=== PATIENT | male | born 1955 | race Caucasian/White ===

== ENCOUNTER 2022-05-23 12:32 | Observation (INO) | payer OTHER ==
--- NOTE | 2022-05-23 13:14 | RAD REPORT ---
EXAM DESCRIPTION: Jef Single View05/23/2022 1:06 pm CLINICAL HISTORY: Numbness COMPARISON: January 2022 FINDINGS: The lungs appear clear of acute infiltrate. The heart is normal size IMPRESSION: No acute abnormalities displayed
--- NOTE | 2022-05-23 13:21 | RAD REPORT ---
EXAM DESCRIPTION: CT - Ct Stroke Brain Wo Cont - 05/23/2022 1:12 pm CLINICAL HISTORY: Left sided weakness COMPARISON: No comparisons TECHNIQUE: Axial 5 millimeter thick images of the head were obtained without IV contrast. All CT scans are performed using dose optimization technique as appropriate and may include automated exposure control or mA/KV adjustment according to patient size. FINDINGS: No intracranial hemorrhage, mass, or cerebral edema. No acute cortical based infarction. N o cortical edema or sulcal effacement. Atrophy changes are mild. Scattered chronic ischemic changes a re present. Ventricles are normal size. No extra-axial fluid collections. Ryan matter-white matter d ifferentiation is preserved. No globe or orbital content abnormality. Visualized portions of the mastoid air cells, paranasal sinuses, and orbits are unremarkable. Findings telephoned to Dr. Gallo 1320 hrs. IMPRESSION: No CT evidence of acute intracranial process. Scattered mild chronic ischemic change in the cerebral white matter.
--- OUTSIDE RECORDS SUMMARY | 2022-05-23 13:21 | XMS REPORT | Continuity of Care Document ---
:1955 Author Organization [facility] t Address [address] [place] [address] Care Team Providers Name Role Phone GUERITA WELLINGTON Primary Care Physician Unavailable Hyacinth Gamez Attending Clinician Unavailable Kaye Baez MD Attending Clinician SCOOTER BELL Attending Clinician Unavailable Tian Coulter MD Attending Clinician Unavailable CHON ROLON Attending Clinician Unavailable Scooter Bell PA-C Attending Clinician [phone] Scarlet Fritz MD Attending Clinician Mary Poon NP Attending Clinician SCARLET FRITZ Attending Clinician Unavailable Sulma Martinez RN Attending Clinician Unavailable Cristela Villalobos Attending Clinician Jacinta Becerra RN Attending Clinician Unavailable Araceli Amato MD Attending Clinician ARACELI AMATO Attending Clinician Unavailable 3, [facility] Terrence Mr Attending Clinician Unavailable Justin Macias NP Attending Clinician Scooter Bell PA-C Attending Clinician Natacha Ross Santiago Attending Clinician Unavailable Dk Grijalva RD Attending Clinician Unavailable Franco MCKENZIE, Luis Ceballos Attending Clinician Rios Arndt LCSW Attending Clinician Unavailable Yady Caldwell Attending Clinician Unavailable Kamala Lobo RN Attending Clinician Unavailable Zulma MCKENZIE, Manuel Lakhani Attending Clinician [phone] KEYANA HERRERA Attending Clinician Unavailable SUYAPA WEBB Attending Clinician Unavailable Aida MCKENZIE, Keyana Resendiz Attending Clinician [phone] Tk Raabgo MD Attending Clinician [phone] Suyapa Webb MD Attending Clinician Milena Swartz MD Attending Clinician Renetta Burnette CRNA Attending Clinician [phone] KIRT JIANG Attending Clinician Unavailable Gwendolyn Zhu Attending Clinician Unavailable Jaison Giraldo Attending Clinician Unavailable MADDIE MIDDLETON Attending Clinician Unavailable Mary Kidd Attending Clinician Unavailable Sadie Molina RN Attending Clinician Unavailable Babatunde Aragon DO Attending Clinician Fredo Berrios DO Attending Clinician Jakub Malone MD Attending Clinician JAKUB MALONE Attending Clinician Unavailable Provider, Express Temp Attending Clinician Unavailable Fredo Chahal Attending Clinician Unavailable Sherrell Coronado Admitting Clinician Unavailable TK RABAGO Admitting Clinician Unavailable Mary Kidd Admitting Clinician Unavailable Physician, No Primary or Family Admitting Clinician UnavailJakub Loja MD Admitting Clinician JAKUB MALONE Admitting Clinician Unavailable Fredo Chahal Admitting Clinician Unavailable Payers Payer Name Policy Type Policy Number Effective Date Expiration Date S alejandra MEDICARE PART A [id number] 2021 \\T\\ B - MEDICARE 00:00:00 [facility] [id number] 2021 [facility] SUPP 00:00:00 Problems Condition Condition Condition Status Onset Resolution Last Treating Co mments Source Name Details Category Date Date Treatment Clinician Date Frailty Frailty Disease [facility] 00 [place] Tobacco Tobacco Disease Active [facility] 00 [place] Sarcopenia Sarcopenia Disease Active [facility] 00 [place] Pre-transp Pre-transp Disease Active Last [facility] lant lant 03-08 Assessfrancisco j Boykinyessy evaluation evaluation 00:00: t & Plan: Medical for liver for liver [address] [place] [address] enter transplant transplant g of this note might be different from the original. He is an acceptabl e candidate for liver transplan t pending further testing and formal review at [facility]. COPD COPD Disease Active Last [facility] (chronic (chronic 03-08 Assessmen Ruth es obstructiv obstructiv 00:00: t & Plan: Medical e e [address] [place] [address] pulmonary pulmonary g of this disease) disease) note might be different from the original. He has a history of lung surgery (s/p thoracoto my in September 2021 at [facility]), asthma, and COPD. He will require Pulmonolo gy clearance prior to listing for liver transplan t. Screening Screening Disease Active St for for 03-08 [facility] varices varices 00:00: Medical 00 [place] History of History of Disease Active [facility] hepatitis hepatitis 03-08 [facility] C C 00:00: Medical 00 [place] History of History of Disease Active [facility] thoracotom thoracotom 03-08 [facility] kes y y 00:00: Medical 00 [place] Insomnia Insomnia Disease Active [facility] 00:[facility]: Medical 00 [place] Incarcerat Incarcerat Disease Active Last [facility] ed ed 02-10 Assessfrancisco j Aranda umbilical umbilical 00:00: t & Plan: M edical hernia hernia 00 [facility] g of this note might be different from the original. He is s/p umbilical hernia repair with ACS on 02/13/22. Remains with bella in place. Continue to follow up as scheduled . Other Other Disease Active Last [facility] cirrhosis cirrhosis 02-09 Assessmen Mikaela jones of liver of liver 00:00: t & Plan: Med ical 00 [facility] g of this note might be different from the original. 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 MELD is 10. Continue with evaluatio n for liver transplan t. Other Other Disease Active Last [facility] ascites ascites 02-09 [facility] 00:00: t & Plan: Medical [address] [place] [address] g of this note might be different from the original. He has a history of ascites requiring large volume paracente sis. He appears mildly distended in clinic today. Continue to follow up with hepatolog y for managemen t and treatment . Portal Portal Disease Active [facility] hypertensi hypertensi - [facility]ia kes on on 00:00: [facility] [place] Hepatic Hepatic Disease Active [facility] encephalop encephalop 02-09 [facility] kes athy athy 00:00: Medical [address] [place] [address] Alcohol Alcohol Disease Active Last [facility] use use 02-09 [facility] 00:00: t & Plan: Medical [address] [place] [address] g of this note might be different from the original. Denies recent alcohol use. PETH negative on 02/16/22. Generalize Generalize Disease Active [facility] d d 02-09 [facility] abdominal abdominal 00:00: [facility] lino pain pain 00 [place] Acute Acute Disease Active [facility] abdominal abdominal - Luke s pain pain 00:00: Medical [address] [place] [address] Nonrheumat Nonrheumat Disease Active U richie ic aortic ic aortic 3-18 ity of valve valve 00:00: [place] stenosis stenosis 00 Medica l Branch NSVT NSVT Disease Active Univers (nonsustai (nonsustai 3-17 it y of barb barb 00:00: [place] ventricula ventricula 00 Me dical r r Branch tachycardi tachycardi a) a) PAC PAC Disease Active Univers (premature (premature 3-17 it y of atrial atrial 00:00: [place] contractio contractio 00 Me dical n) n) Branch SUKHDEEP (acute SUKHDEEP (acute Disease Active U nivers kidney kidney 3-17 ity of injury) injury) 00:00: [place] 00 Medical Branch Chronic Chronic Disease Active Univers diastolic diastolic 3-17 ity of congestive congestive 00:00: [place] heart heart 00 Medical failure failure Branch Other Other Disease Active Univers cirrhosis cirrhosis 3-17 ity of of liver of liver 00:00: [address] Branch Pleural Pleural Disease Active Univers effusion effusion 3-17 ity of 00:00: [place] [address] Medical Branch Elevated Elevated Disease Active Unive rs brain brain 3-17 ity of natriureti natriureti 00:00[place] c peptide c peptide 00 Medi lino (BNP) (BNP) Branch level level Pneumonia Pneumonia Disease Active Uni vers 3-16 ity of 00:00: [address] Allergies, Adverse Reactions, Alerts Allergy Allergy Status Severity Reaction(s) Onset Inactive Treating Comm ents Source Name Type Date Date Clinician No Known DA Active U [facility] Allergie 3-22 Clear s 00:00: Se[place] 00 [facility] No Known DA Active U [facility] Allergie 3-16 [facility] s 00:00: 00 Reid Hendrickson No Known DA Active U 2019-[address] [facility] Allergie 1-20 [facility] s 00:00: 00 Reid Hendrickson NO KNOWN Allergy Active [facility] NO KNOWN Drug Active Univers ALLERGIE Class ity of S [facility] Social History Social Habit Start Date Stop Date Quantity Comments Source History of tobacco Cigarette Smoker [facility] use [facility] Center History SDOH [facility] Alcohol Std Drinks Medica Center History SDOH [facility] Alcohol Binge Medical [facility] History SDOH [facility] Alcohol Comment Medical C enter Exposure to Not sure University of SARS-CoV-2 (event) [facility] Alcohol intake 2022-04-12 2022-04-[address] Ruth es 00:00:00 00:00:00 non-drinker Medical Cente r (finding) Tobacco use and 2022-02-09 2022-02-[address] Lucretia kes exposure 00:00:00 00:00:00 Medical Center History SDOH 2022-02-09 2022-02-[address] [facility] Alcohol Frequency 00:00:00 00:00:00 Medical Center Tobacco Comment 2022-02-09 2022-02-[address] [facility] 00:[facility]00 [facility] Cigarettes smoked 2021-10-05 2021-10-05 Univers ity of current (pack per 00:00:00 00:00:00 ) - Reported Branch Sex [birth year] [facility] llege of 00:00:00 00:00:00 Medicine Smoking Status Start Date Stop Date Source Tobacco smoking consumption [facility] or [facility] unknown Current every day smoker 2022-02-09 00:00:[address] [facility] Medications Ordered Filled Start Stop Current Ordering Indication Dosage Frequency Signature Comments Components Source Medication Medication Date Date Medication? Clinician (SIG) Name Name rifAXIMin 2021- No hepatic 550mg Q.5D Take [address] 550 mg Tab 04-12 encephalopa mg by Lukes 10:34: 00:00 thy mouth 2 Medical 11 :00 (two) Center times daily . spironolact Yes 100mg QD Take [address] one 9-19 mg by Lukes (ALDACTONE) 09:50: mouth Medic al 100 MG 48 daily. Center tablet rifAXIMin Yes 550mg Q.5D Take [address] (Xifaxan) 9-19 mg by [facility] 550 mg Tab 09:50: mouth 2 Medi lino 48 (two) Center times daily. ergocalcife 2021- Yes 16241H Q7D Take [address] rol 04-06 capsule [facility]ukes (Vitamin 00:00: 23:59 (50,000 Medic al D2) 1,250 00 :00 Units Center mcg (50,000 total) by unit) mouth once capsule a week for 12 doses. furosemide 2021- No 40mg Q.5D Take [address] (LASIX) 40 03-29 by mouth 2 Lucretia kes MG tablet 16:13: 00:00 (two) Medica l 05 :00 times Center daily. furosemide Yes 40mg Q.5D Take 1 [facility]I [facility] t (LASIX) 40 03-29 tablet (40 Ruth es MG tablet 00:00: mg total) Med ical 00 by mouth 2 Center (two) times daily. spironolact Yes [facility] 03-26 [place] (ALDACTONE) 00:00: of 100 MG 00 Medicin tablet e Lactulose Yes [facility] 20 GM/30ML 8-25 [place] SOL 00:00: of 00 Medicin e albuterol Yes 1{puff} Inhale [address] HFA 8-17 puff by Lukes (VENTOLIN 17:15: mouth via Med ical HFA) 90 12 inhaler Center mcg/actuati every 6 on inhaler (six) hours as needed for Wheezing. lactulose 2021- No 10g Q.[id number] Take [address] (CEPHULAC) 8-17 08-17 [id number] by mouth 3 [facility] 10 gram 16:54: 00:00 3D (three) Medica l packet 31 :00 times Center daily. eszopiclone Yes TAKE 1 [facility] (LUNESTA) 1 8-17 TABLET BY Col lege MG TABS 00:00: MOUTH of 00 DAILY Medicin IMMEDIATEL e Y BEFORE BEDTIME tramadol Yes 50mg Take 50 mg [place] giovany (ULTRAM) 50 8-17 by mouth. Col lege MG tablet 00:00: of 00 Medicin e traMADoL 2021- No 50mg Take [address] (ULTRAM) 50 8-17 09-21 tablet (50 L ukes mg tablet 00:00: 00:00 mg total) Me dical 00 :00 by mouth Center every 12 (twelve) hours as needed for Pain. Max Daily Amount: 100 mg traMADoL 2021- No 50mg Take [address] (ULTRAM) 50 8- 08-11 tablet (50 L ukes mg tablet 00:00: 23:59 mg total) Me dical 00 :00 by mouth Center every 6 (six) hours as needed for Pain for up to 10 days. Max Daily Amount: 200 mg gabapentin Yes TAKE 1 [facility] (NEURONTIN) 7-29 CAPSULE BY Co llege 100 MG 00:00: MOUTH of capsule 00 THREE Medicin TIMES A e DAY FOR 90 DAYS valacyclovi Yes TAKE 1 [facility] (VALTREX) 7-29 TABLET BY Col lege 1 g tablet 00:00: MOUTH of 00 THREE Medicin TIMES A e DAY FOR 30 DAYS gabapentin 2021- No 100mg [id number] Take [address] (NEURONTIN) 02-17 [id number] capsule [facility]ukes 100 MG 00:00: 23:59 3D (100 mg Medical capsule 00 :00 total) by Center mouth 3 (three) times daily for 90 days. tamsulosin 2021- No .4mg QD Take [address] (FLOMAX) 02-17 capsule [facility] 0.4 mg Cap 00:00: 23:59 (0.4 mg Med ical 24 hr 00 :00 total) by Center capsule mouth daily for 30 days. valACYclovi 2021- No 1000mg Q.[id number] Take [address] r (VALTREX) 02-17 [id number] tablet [facility] 1000 MG 00:00: 23:59 3D (1,000 mg Medi lino tablet 00 :00 total) by Center mouth 3 (three) times daily for 30 days. ipratropium Yes INHALE 1 [facility] (ATROVENT) 7-13 VIAL BY Colleg e 0.02 % 00:00: MOUTH VIA of nebulizer 00 NEBULIZER Medic in solution EVERY 8 e HOURS NEEDED Albuterol Yes [facility] (VENTOLIN 7-04 [place] IN) 00:00: of 00 Medicin e furosemide Yes TAKE 1 [facility] (LASIX) 40 6-21 TABLET BY [place] ege MG tablet 00:00: MOUTH of 00 EVERY DAY Medicin e furosemide 2021- No [id number] 20mg Take 1 Univers 20 mg 3-20 04-20 tablet by ity of tablet 00:00: 04:59 mouth [place] 00 :00 daily for Medical 30 days. Branch furosemide 2021- No [id number] 20mg Take 1 Univers 20 mg 3-20 04-20 tablet by ity of tablet 00:00: 04:59 mouth [place] 00 :00 daily for Medical 30 days. Branch furosemide 2021- No [id number] 20mg Take 1 Univers 20 mg 3-20 04-20 tablet by ity of tablet 00:00: 04:59 mouth [place] 00 :00 daily for Medical 30 days. Branch levoFLOXaci 2021- No [id number] 750mg Take 1 Univers n 750 mg 3-20 03-24 tablet by ity o f tablet 00:00: 04:59 mouth [place] 00 :00 daily for Medical 3 days. Branch predniSONE 2021- No [id number] 40mg Take 2 Univers 20 mg 3-20 03-24 tablets by ity of tablet 00:00: 04:59 mouth [place] 00 :00 daily for Medical 3 days. Branch levoFLOXaci 2021- No [id number] 750mg Take 1 Univers n 750 mg 3-20 03-24 tablet by ity o f tablet 00:00: 04:59 mouth [place] 00 :00 daily for Medical 3 days. Branch predniSONE 2021- No [id number] 40mg Take 2 Univers 20 mg 3-20 03-24 tablets by ity of tablet 00:00: 04:59 mouth [place] 00 :00 daily for Medical 3 days. Branch levoFLOXaci 2021- No [id number] 750mg Take 1 Univers n 750 mg 3-20 03-24 tablet by ity o f tablet 00:00: 04:59 mouth [place] 00 :00 daily for Medical 3 days. Branch predniSONE 2021- No [id number] 40mg Take 2 Univers 20 mg 3-20 03-24 tablets by ity of tablet 00:00: 04:59 mouth [place] 00 :00 daily for Medical 3 days. Branch finasteride Yes 5mg Take 5 mg U nivers 5 mg tablet 3-19 by mouth ity of 11:37: daily. [address] albuterol Yes 1{ampul Use 1 Univ ers 2.5 mg/0.5 3-19 e} Ampule as ity of mL 11:37: directed 3 [place] nebulizer 16 (three) Medical solution times Branch daily as needed for Wheezing. finasteride Yes 5mg Take 5 mg U nivers 5 mg tablet 3-19 by mouth ity of 11:37: daily. [address] albuterol Yes 1{ampul Use 1 Univ ers 2.5 mg/0.5 3-19 e} Ampule as ity of mL 11:37: directed 3 [place] nebulizer 16 (three) Medical solution times Branch daily as needed for Wheezing. finasteride Yes 5mg Take 5 mg U nivers 5 mg tablet 10-08 by mouth ity of 11:37: daily. [place] 16 Medical Branch albuterol Yes 1{ampul Use 1 Univ ers 2.5 mg/0.5 10-08 e} Ampule as ity of mL 11:37: directed 3 [place] nebulizer 16 (three) Medical solution times Branch daily as needed for Wheezing. spironolact 2021- No 50mg Take 50 mg Univers one 50 mg 10-08 by mouth 2 ity of tablet 10:02: 00:00 (two) [place] 59 :00 times Medical daily. Branch furosemide No 40mg Take 40 mg Univers 40 mg 10-08 by mouth 2 ity of tablet 10:02: 00:00 (two) [place] 59 :00 times Medical daily. Branch lactulose 2021- No 45mL Take 45 mL U nivers 10 gram/15 10-08 by mouth. ity of mL (15 mL) 10:02: 00:00 [place] Sol 59 :00 Medical Branch Ipratropium Yes 1{puff} 1 Puff by [facility] -Albuterol 3-19 Inhalation Col lege 20-100 00:00: route. of MCG/ACT 00 Medicin AERS e albuterol-i Yes [id number] 1{puff} Inhale 1 Univers pratropium 3-19 Puff every ity of 20-100 00:00: 6 (six) [place] mcg/actuati 00 hours as Medi lino on inhaler needed for Bra nch Wheezing or Shortness of Breath. albuterol-i Yes [id number] 1{puff} Inhale 1 Univers pratropium 3-19 Puff every ity of 20-100 00:00: 6 (six) [place] mcg/actuati 00 hours as Medi lino on inhaler needed for Bra nch Wheezing or Shortness of Breath. albuterol-i Yes [id number] 1{puff} Inhale 1 Univers pratropium 3-19 Puff every ity of 20-100 00:00: 6 (six) [place] mcg/actuati 00 hours as Medi lino on inhaler needed for Bra nch Wheezing or Shortness of Breath. spironolact 2021- No [id number] 25mg Take 1 Univers one 25 mg 3-19 -19 tablet by ity of tablet 00:00: 04:59 mouth 2 [place] 00 :00 (two) Medical times [place] daily for 30 days. lactulose 2021- No [id number] 30mL Take 30 mL Univers 10 gram/15 -08 11-19 by mouth 2 it y of mL solution 00:00: 04:59 (two) [place] 00 :00 times Medical daily for Branch 30 days. spironolact 2021- No [id number] 25mg Take 1 Univers one 25 mg 3-19 -19 tablet by ity of tablet 00:00: 04:59 mouth 2 [place] 00 :00 (two) Medical times [place] daily for 30 days. lactulose 2021- No [id number] 30mL Take 30 mL Univers 10 gram/15 -08 11-19 by mouth 2 it y of mL solution 00:00: 04:59 (two) [place] 00 :00 times Medical daily for Branch 30 days. spironolact 2021- No [id number] 25mg Take 1 Univers one 25 mg 3-08 11- tablet by ity of tablet 00:00: 04:59 mouth 2 [place] 00 :00 (two) Medical times [place] daily for 30 days. lactulose 2021- No [id number] 30mL Take 30 mL Univers 10 gram/15 -08 11-19 by mouth 2 it y of mL solution 00:00: 04:59 (two) [place] 00 :00 times Medical daily for Branch 30 days. morpHINE Yes 2mg 2 mg, Slow Uni vers injection 2 3-18 IV Push, ity of mg 21:52: Q4HPRN, [place] 48 Starting Medical on Sun Branch 10/07/21 at 1652, Until Discontinu ed, Routine, Pain (scale 7-10) HYDROcodone Yes 1{tbl} 1 tablet, Univers -acetaminop 3-18 Oral, ity of hen (NORCO 21:52: Q6HPRN, [place] 5) 5-325 mg 32 Starting Medi lino tablet 1 on Sun tablet 3/18/22 at 1652, Until Discontinu ed, Routine, Pain (scale 4-6) acetaminoph Yes 650mg 650 mg, Un jerardo en 10-07 Oral, ity of (TYLENOL) 21:52: Q8HPRN, [place] tablet 650 21 Starting Medic al mg on Fri Branch 10/07/21 at 1652, Until Discontinu ed, Routine, Pain (scale 1-3) KCL 2021- No 40meq 40 mEq, Univers (KLOR-CON 10-07 Oral, ity of M20) tablet 15:00: 15:05 ONCE, 1 [place] 40 mEq 00 :00 dose, On Medical Fri Branch 10/07/21 at 1000, Routine levoFLOXaci No 750mg 750 mg, U nivers n 10-07 Oral, ity of (LEVAQUIN) 14:00: 13:59 DAILY, 5 [place] tablet 750 00 :00 doses, Medical mg First dose Branch (after last modificati on) on Sun10/07/21 at 0900, Last dose on Sun10/11/21 at 0900, ENRIQUE
Re ason for Anti-Infec tive: Documented Infection< br>Documen britta Infection Site: Respirator y
Durat ion of Therapy: 7 days predniSONE No 40mg 40 mg, Univ ers (DELTASONE) 10-07 Oral, ity of tablet 40 14:00: 13:59 DAILY, 4 [place] as mg 00 :00 doses, Medical First dose Branch on Sun10/07/21 at 0900, Last dose on Sun10/10/21 at 0900, Routine methylPREDN No 40mg 40 mg, Uni vers ISolone sod 10-06 Intravenou i ty of succ 23:00: 13:55 s, Q24H, [place] (SOLU-MEDRO 00 :45 First dose Me dical L (PF)) on [place] Branch injection 10/06/21 at 40 mg 1800, Until Discontinu ed, 1 mL KCL No 40meq 40 mEq, Univers (KLOR-CON 10-06 Oral, ity of M20) tablet 20:00: 20:27 ONCE, 1 [place] 40 mEq 00 :00 dose, On Medical [place] Branch 10/06/21 at 1500, Routine vancomycin 2021- No 1250mg 1,250 mg, Univers 1250 mg in 10-06 IV ity of NS 250 mL 15:30: 13:52 Infusion, [place] RTU IV 00 :05 Q24H ABX, Medical Piggyback First dose Bran ch 1,250 mg on [place] 10/06/21 at 1030, Until Discontinu ed, Administer over 90 Minutes
Reason for Anti-Infec tive: Documented Infection< br>Documen britta Infection Site: Blood
D uration of Therapy: 7 days furosemide Yes 20mg 20 mg, Unive rs (LASIX) 17 Oral, ity of tablet 20 14:00: DAILY, [place] mg 00 First dose Medical on [place] Branch 10/06/21 at 0900, Until Discontinu ed, Routine finasteride Yes 5mg 5 mg, Unive rs (PROSCAR) 10-06 Oral, ity of tablet 5 mg 14:00: DAILY, [place] 00 First dose Medical on [place] Branch 10/06/21 at 0900, Until Discontinu ed, Routine spironolact Yes 25mg 25 mg, Univ ers one 17 Oral, BID, ity of (ALDACTONE) 13:00: First dose [place] tablet 25 00 on [facility] Medical mg 10/06/21 at Branch 0800, Until Discontinu ed, Routine NORepinephr 2021- No .05ug/k 0.05-0.5 Univers ine 4 mg in 10-06 g/min mcg/kg/min ity of 0.9% NaCl 11:23: 11:22 ?64 kg [place] 250 mL 29 :29 (12-120 Medical infusion mL/hr), IV Branc h RTU Infusion, TITRATE, MAP Goal > or = 65 mmHg, Starting on [place] 10/06/21 at 0623, For 24 hours
I nitiate titration at 0.05 mcg/kg/min . &am p;nbsp;Inc rease by 0.01 mcg/kg/min every 30 seconds to 5 minutes as needed to reach and maintain goal blood pressure.& nbsp;&nbsp ;Maximum dose = 0.5 mcg/kg/min . &nb sp;If goal not maintained at maximum allowed dose, contact prescriber . &nb sp;Adminis ter only one peripheral intravenou s vasopresso r at a time.
hydrocortis No 60mg 60 mg, Uni vers one sod 10-06 Intravenou ity o f succ 11:00: 18:35 s, Q6H, [place] (CORTEF) 00 :41 First dose Medic al injection on [place] Branch 60 mg 10/06/21 at 0600, Until Discontinu ed, 2 mL albumin 2021- No 25g 25 g, IV Unive rs (ALBUMINAR 10-06 Infusion, ity of 25%) 25 % 07:45: 07:10 ONCE, 1 [place] injection 00 :00 dose, On Medica l 25 g [place] Branch 10/06/21 at 0245, 100 mL
Jeanette cation: NON-APPROV ED INDICATION - PHARMACY WILL CALL ORDERING PROVIDER<b r>Specific Indication : hepatorena l syndrome<b r>Faculty Requesting Approval: RHYS BERRY NaCl 0.9% 2021- No 500mL at 999 Univ ers (NS) bolus 10-06 mL/hr, 500 it y of infusion 07:30: 06:50 mL, IV [place] 500 mL 00 :00 Piggyback, Medical ONCE, 1 Branch dose, On [place] 10/06/21 at 0230, STAT NaCl 0.9% 2021- No 250mL at 999 Univ ers (NS) bolus 10-06 mL/hr, 250 it y of infusion 06:15: 05:20 mL, IV [place] 250 mL 00 :00 Piggyback, Medical ONCE, 1 Branch dose, On [place] 10/06/21 at 0115, STAT ipratropium Yes 3mL 3 mL, Unive rs -albuteroL 10-06 Inhalation ity of (DUONEB) 01:00: , QID, [place] 0.5 mg-3 00 First dose Medic al mg(2.5 mg on Sun)/3 mL 10/05/21 at nebulizer 1999, solution 3 Until mL Discontinu ed, Routine lactulose Yes 30mL 30 mL, Univer s (CEPHULAC) 10-06 Oral, BID, ity of solution 30 01:00: First dose [place] mL 00 on Sun Medical 10/05/21 at [place] 1999, Until Discontinu ed metoprolol 2021- No 12.5mg 12.5 mg, Univers tartrate 10-06 Oral, BID, ity of (LOPRESSOR) 01:00: 06:33 First dose [place] tablet 12.5 00 :56 on Sun Medica l mg 10/05/21 at [place] 1999, Until Discontinu ed, Routine azithromyci No 500mg 500 mg, IV Univers n 10-06 Piggyback, ity of (ZITHROMAX) 00:15: 13:55 Q24H ABX, [place] 500 mg in 00 :45 3 doses, Medica l NaCl 0.9% First dose Bran ch (NS) 250 mL on Sun VIAL-MATE 10/05/21 at IV 1914, Last piggyback dose on Sun10/07/21 at 1914, Administer over 60 Minutes, 250 mL
Reas on for Anti-Infec tive: Empiric Therapy for Suspected Infection< br>Empiric Therapy Site: Respirator y
Durat ion of therapy: 72 hours cefTRIAXone No 1000mg 1,000 mg, Univers (ROCEPHIN) 10-06 IV ity of 1,000 mg in 00:15: 13:55 Piggyback, [place] NaCl 0.9% 00 :45 Q24H ABX, Medic al (NS) 50 mL First dose Bra nch MINI-BAG on Sun10/05/21 at 191, Until Discontinu ed, Administer over 30 Minutes, 50 mL
Reas on for Anti-Infec tive: Empiric Therapy for Suspected Infection< br>Empiric Therapy Site: Respirator y
Durat ion of therapy: 7 days ipratropium Yes 3mL 3 mL, Unive rs -albuteroL 10-05 Inhalation ity of (DUONEB) 23:28: , Q6HPRN, [place] 0.5 mg-3 11 Starting Medical mg(2.5 mg on Sun base)/3 mL 10/05/21 at nebulizer 1828, solution 3 Until mL Discontinu ed, Routine, Wheezing, Shortness of Breath NaCl 0.9% 2021- No 1000mL at 999 Uni vers (NS) bolus 10-05 mL/hr, ity of infusion 20:27: 20:30 1,000 mL, [place] as 1,000 mL 00 :00 IV Medical Infusion, Branch ONCE, 1 dose, On Sun10/05/21 at 1530, STAT magnesium 2021- No 2g 2 g, IV Univ ers sulfate in 10-05 Piggyback, it y of water 2 19:16: 20:08 Administer [place] as gram/50 mL 00 :00 over 60 Medica l (4 %) Minutes, Branch infusion 2 ONCE, 1 g dose, On Sun10/05/21 at 1430, Routine NaCl 0.9% 2021- No 1000mL at 999 Uni vers (NS) bolus 10-05 mL/hr, ity of infusion 18:45: 21:30 1,000 mL, Darrick as 1,000 mL 00 :00 IV Medical Infusion, Branch ONCE, 1 dose, On Sun10/05/21 at 1345, STAT piperacilli 2021- No 3.375g 3.375 g, Univers n-tazobacta 10-05 IV ity of m (ZOSYN) 16:15: 15:52 Piggyback, [place] 3.375 g in 00 :00 ONCE, 1 Medica l NaCl 0.9% dose, On Branch (NS) 50 mL Wed MINI-BAG 10/05/21 at 1115, Administer over 30 Minutes, 50 mL
R natalio for Anti-Infec tive: Empiric Therapy for Suspected Infection< br>Empiric Therapy Site: Abdominal< br>Duratio n of therapy: 72 hours iopamidol 2021- No [id number] 100mL 100 mL, Univers (ISOVUE 10-05 Intravenou ity o f 370-500 mL) 16:00: 15:59 s, ONCE, 1 [place] injection 00 :00 dose, On Medica l 100 mL Wed Branch 10/05/21 at 1115, Routine doxycycline 0 Yes Twice [facility] sherin (MONODOX) 3-18 Daily College 100 MG 00:00: of capsule 00 Medicin e folic acid 0 Yes Daily [facility] (FOLVITE) 1 3-18 College MG tablet 00:00: of 00 Medicin e finasteride Yes 5mg Take 5 mg B aylor (PROSCAR) 5 3-17 by mouth. Col lege MG tablet 00:00: of 00 Medicin e albuterol Yes 1{puff} 1 Puff by [facility] 108 (90 3-17 Inhalation Colleg e base) 00:00: route. of mcg/act 00 Medicin inhaler e lactulose Yes 20g [id number] Take [address] [facility] (CHRONULAC) 9-09 [id number] by mouth 3 [facility] 10 gram/15 00:00: 3D (three) Medi lino mL solution 00 times Center daily. Vital Signs Vital Name Observation Time Observation Value Comments Source WEIGHT 2020-10-05 18:15:00 77.174518 kg HEIGHT 2020-10-05 18:15:00 167.64 cm Systolic blood 2022-03-29 19:43:00 111 mm[Hg] [facility] pressure Medicine Diastolic blood 2022-03-29 19:43:00 73 mm[Hg] [facility] pressure Medicine Heart rate 2022-03-29 19:43:00 80 /min [facility] Body height 2022-03-29 19:43:00 170.2 cm [facility] Body weight 2022-03-29 19:43:00 71.215 kg [facility] BMI 2022-03-29 19:43:00 24.59 kg/m2 [facility] HEIGHT 2022-02-09 15:09:00 167.6 cm WEIGHT 2022-02-09 15:09:00 58.968 kg HEIGHT 2022-02-09 15:09:00 167.6 cm WEIGHT 2022-02-09 15:09:00 58.968 kg HEIGHT 2022-02-09 15:09:00 167.6 cm WEIGHT 2022-02-09 15:09:00 58.968 kg Systolic blood 2021-10-08 15:00:00 107 mm[Hg] Univer sity of pressure [facility] Diastolic blood 2021-10-08 15:00:00 67 mm[Hg] Unive rsity of [facility] Heart rate 2021-10-08 15:00:00 89 /min Universi ty [facility] Respiratory rate 2021-10-08 15:00:00 24 /min [facility] saturation in 2021-10-08 15:00:00 96 /min [facility] blood by [facility] Pulse oximetry [place] Body temperature 2021-10-08 13:56:00 36.56 Maral [facility] Body weight 2021-10-07 09:39:00 65.998 [facility] BMI 2021-10-07 09:39:00 23.48 kg/m2 [facility] Body height 2021-10-06 17:32:00 167.6 cm [facility] WEIGHT 2020-10-05 18:15:00 77.823908 kg HEIGHT 2020-10-05 18:15:00 167.64 cm WEIGHT 2020-06-11 22:20:00 68.153740 kg HEIGHT 2020-06-11 22:20:00 167.64 cm Systolic blood 2022-04-10 09:43:00 127 mm[Hg] [facility] Diastolic blood 2022-04-10 09:43:00 74 mm[Hg] [facility] Heart rate 2022-04-10 09:43:00 84 /min [facility] Body temperature 2022-04-10 09:43:00 36.33 Maral [facility] Body weight 2022-04-10 09:43:00 64.275 kg [facility] BMI 2022-04-10 09:43:00 22.40 kg/m2 [facility] Oxygen saturation in 2022-04-10 09:43:00 96 /min [facility] Arterial blood by Medical Ce nter Pulse oximetry Body height 2022-03-09 07:21:00 169.4 cm [facility] Respiratory rate 2022-03-08 13:00:00 18 /min [facility] Procedures Procedure Date / Time Performing Clinician Source Performed AMB REF TO GEN INT 2022-04-13 10:44:26 [facility] Medicine BASIC METABOLIC PANEL 2022-04-10 13:35:00 Mary Poon [facility] HEPATIC FUNCTION PANEL 2022-04-10 13:35:00 Mary Poon [facility] CBC W/PLT COUNT & AUTO 2022-04-10 13:35:00 Mary Poon [facility] PROTHROMBIN TIME/INR 2022-04-10 13:35:00 Mary Poon [facility] CBC W/PLT COUNT & AUTO 2022-04-10 13:35:00 Mary Poon [facility] CT ABDOMEN/PELVIS WITH IV 2022-04-10 13:08:00 Scooter Bell [facility] CONTRAST [facility] ECHO W CONTRAST & DOPPLER 2022-03-30 12:44:32 Araceli Amato [facility] HC CAROTID DOPPLER ZULMA 2022-03-30 12:19:00 Araceli Amato [facility] ECG 12-LEAD 2022-03-30 12:06:19 Araceli Amato [facility] BLOOD GAS, ARTERIAL 2022-03-30 11:43:00 Araceli Amato [facility] XR MANDIBLE 4 VIEWS MIN 2022-03-30 10:38:00 Araceli Amato [facility] XR CHEST 2 VIEWS 2022-03-30 10:30:00 Araceli Amato [facility] XR DXA BONE DENSITY STUDY 2022-03-30 10:25:00 Araceli Amato [facility] MR ABDOMEN WITH & WITHOUT 2022-03-30 07:47:00 Araceli Amato [facility] IV CONTRAST Center DRUG SCREEN, URINE, 2022-03-08 12:43:00 Everette, Araceli Alexis [facility] TRANSPLANT Center URINALYSIS W/ MICROSCOPIC 2022-03-08 12:43:00 Everette, Araceli Alexis [facility] CALCIUM, IONIZED 2022-03-08 08:58:00 Everette, Araceli Alexis [facility] HEPATITIS C PCR, 2022-03-08 08:58:00 Everette, Araceli Alexis [facility] QUANTITATIVE [place] MISCELLANEOUS LAB ORDER 2022-03-08 08:57:00 Everette, Araceli Alexis [facility] COMPREHENSIVE METABOLIC 2022-03-08 08:57:00 Everette, Araceli Alexis [facility] BILIRUBIN, DIRECT 2022-03-08 08:57:00 Everette, Araceli Alexis [facility] GAMMA GLUTAMYL TRANSFERASE 2022-03-08 08:57:00 Everette, Araceli Castillo [facility] (GGT) Center MAGNESIUM 2022-03-08 08:57:00 Everette, Araceli Alexis [facility] PHOSPHORUS 2022-03-08 08:57:00 EveretteAraceli nieves [facility] CBC W/PLT COUNT & AUTO 2022-03-08 08:57:00 Everette, Araceli Alexis [facility] DIFFERENTIAL Center ACTIN (SMOOTH MUSCLE) 2022-03-08 08:57:00 Everette, Araceli Alexis [facility] ANTIBODY, IGG Center TRANSFERRIN 2022-03-08 08:57:00 EveretteAraceli [facility] IRON, TIBC, % SAT. 2022-03-08 08:57:00 EveretteAraceli nieves [facility] (WITHOUT FERRITIN) Center FERRITIN 2022-03-08 08:57:00 EveretteAraceli [facility] CERULOPLASMIN 2022-03-08 08:57:00 EveretteAraceli [facility] VITAMIN D, 25-HYDROXY 2022-03-08 08:57:00 EveretteAraceli nieves [facility] LIPID PANEL 2022-03-08 08:57:00 EveretteAraceli nieves [facility] HEMOGLOBIN A1C 2022-03-08 08:57:00 EveretteAraceli nieves [facility] ETHANOL 2022-03-08 08:57:00 EveretteAraceli nieves [facility] ALPHA FETOPROTEIN (AFP), 2022-03-08 08:57:00 EveretteAraceli nieves [facility] TUMOR MARKER Center CARBOHYDRATE ANTIGEN 19-9 2022-03-08 08:57:00 EveretteAraceli nieves [facility] (CA 19-9) [place] CARCINOEMBRYONIC ANTIGEN 2022-03-08 08:57:00 EveretteAraceli nieves [facility] (CEA) Center ZINC 2022-03-08 08:57:00 EveretteAraceli nieves [facility] URIC ACID 2022-03-08 08:57:00 EveretteAraceli nieves [facility] TSH 2022-03-08 08:57:00 EveretteAraceli nieves [facility] T3 2022-03-08 08:57:00 EveretteAraceli nieves [facility] T4 2022-03-08 08:57:00 Araceli Amato [facility] HEPATITIS B CORE ANTIBODY, 2022-03-08 08:57:00 EveretteAraceli nieves [facility] TOTAL Center HEPATITIS B CORE ANTIBODY, 2022-03-08 08:57:00 Araceli Amato [facility] IGM Center HC LAB HIV-1 AG W/HIV-1&2 2022-03-08 08:57:00 EveretteAraceli nieves [facility] AB [place] CYTOMEGALOVIRUS ANTIBODY, 2022-03-08 08:57:00 EveretteAraceli nieves [facility] IGG Center EBV ANTIBODY, IGG 2022-03-08 08:57:00 EveretteAraceli nieves [facility] RUBEOLA ANTIBODY IGG 2022-03-08 08:57:00 EveretteAraceli nieves [facility] MUMPS ANTIBODY, IGG 2022-03-08 08:57:00 EveretteAraceli nieves [facility] RUBELLA ANTIBODY, IGG 2022-03-08 08:57:00 EveretteAraceli nieves [facility] VARICELLA ZOSTER ANTIBODY, 2022-03-08 08:57:00 EveretteAraceli nieves [facility] IGG Center CRYPTOCOCCAL ANTIGEN 2022-03-08 08:57:00 EveretteAraceli nieves [facility] RPR 2022-03-08 08:57:00 EveretteAraceli nievse [facility] T SPOT TB 2022-03-08 08:57:00 EveretteAraceli nieves [facility] ALPHA-1 ANTITRYPSIN 2022-03-08 08:57:00 EveretteAraceli nieves [facility] MUTATION ANALYSIS Center HEPATITIS C GENOTYPE 2022-03-08 08:57:00 EveretteAraceli [facility] PSA 2022-03-08 08:57:00 EveretteAraceli nieves [facility] CBC W/PLT COUNT & AUTO 2022-03-08 08:57:[address] [facility] DIFFERENTIAL Center FIBRINOGEN 2022-03-08 08:56:00 EveretteAraceli nieves [facility] PROTHROMBIN TIME/INR 2022-03-08 08:56:00 EveretteAraceli nieves [facility] APTT 2022-03-08 08:56:00 EveretteAraceli neives [facility] MITOCHONDRIA M2 ANTIBODY 2022-03-08 08:56:00 EveretteAraceli nieves [facility] (IGG) [place] TESTOSTERONE, FREE + TOTAL 2022-03-08 08:56:[address] [facility] SARS-COV2/RT-PCR ([facility] & 2022-02-17 07:47:00 Suyapa Webb [facility] REF LABS) Center VARICELLA ZOSTER PCR, 2022-02-15 20:01:00 Nida Subramanian [facility] QUALITATIVE Center PROTHROMBIN TIME/INR 2022-02-14 11:57:00 JefDwaynen Roy [facility] CBC W/PLT COUNT & AUTO 2022-02-14 05:02:00 AdalidRogelio fishman [facility] BASIC METABOLIC PANEL 2022-02-14 05:02:00 Adalidsravanthi Rogelio [facility] HEPATIC FUNCTION PANEL 2022-02-14 05:02:00 Adalidsravanthi [facility] CBC W/PLT COUNT & AUTO 2022-02-14 05:02:00 Jeffery [facility] TISSUE EXAM 2022-02-13 08:26:00 Milena Swartz [facility] CYTOLOGY 2022-02-13 08:24:00 Milena Swartz [facility] CYTOLOGY REQUEST 2022-02-13 08:24:00 Milena Swartz [facility] BODY FLUID CULTURE + GRAM 2022-02-13 08:21:00 Milena Swartz [facility] HERNIORRHAPHY, UMBILICAL 2022-02-13 07:13:00 Milena Swartz [facility] PROTHROMBIN TIME/INR 2022-02-13 04:46:00 Kamala Guzman [facility] ABORH, MANUAL 2022-02-13 04:46:00 Layne Cole [facility] CBC W/PLT COUNT & AUTO 2022-02-13 03:38:00 Suyapa Webb CH [facility] BASIC METABOLIC PANEL 2022-02-13 03:38:00 Suyapa Webb [facility] MAGNESIUM 2022-02-13 03:38:00 Suyapa Webb [facility] HEPATIC FUNCTION PANEL 2022-02-13 03:38:00 Suyapa Webb CH [facility] PROTHROMBIN TIME/INR 2022-02-13 03:38:00 Suyapa Webb [facility] APTT 2022-02-13 03:38:00 aKmala Gzuman [facility] PHOSPHATIDYLETHANOL, BLOOD 2022-02-13 03:38:00 Nely Fuchs [facility] HEPATITIS B SURFACE 2022-02-13 03:38:[address] [facility] TYPE AND SCREEN, AUTOMATED 2022-02-13 03:38:00 Kt Garrett [facility] CBC W/PLT COUNT & AUTO 2022-02-13 03:38:00 Tracey Suyapa P. [facility] CBC W/PLT COUNT & AUTO 2022-02-12 03:29:00 Tracey Suyapa P. CH [facility] BASIC METABOLIC PANEL 2022-02-12 03:29:00 Tracey Suyapa P. [facility] MAGNESIUM 2022-02-12 03:29:00 Eduardo Webbison P. [facility] HEPATIC FUNCTION PANEL 2022-02-12 03:29:00 Tracey Suyapa P. [facility] PROTHROMBIN TIME/INR 2022-02-12 03:29:00 Tracey Suyapa P. [facility] CBC W/PLT COUNT & AUTO 2022-02-12 03:29:00 Tracey Suyapa P. CH [facility] CBC W/PLT COUNT & AUTO 2022-02-11 04:35:00 Tracey Suyapa P. CH [facility] BASIC METABOLIC PANEL 2022-02-11 04:35:00 Tracey Suyapa P. [facility] MAGNESIUM 2022-02-11 04:35:00 Tracey Suyapa P. [facility] HEPATIC FUNCTION PANEL 2022-02-11 04:35:00 Tracey Suyapa P. [facility] PROTHROMBIN TIME/INR 2022-02-11 04:35:00 Tracey Suyapa P. [facility] CBC W/PLT COUNT & AUTO 2022-02-11 04:35:00 Tracey Suyapa P. CH I [facility] US PARACENTESIS 2022-02-10 12:58:00 Keyana Herrera [facility] BODY FLUID CELL COUNT WITH 2022-02-10 12:32:00 Keyana Herrera [facility] DIFFERENTIAL [facility] BODY FLUID CULTURE + GRAM 2022-02-10 12:32:00 Keyana Herrera [facility] STAIN [facility] LACTATE DEHYDROGENASE 2022-02-10 12:32:00 Keyana Herrera [facility] (LDH), BODY FLUID [facility] PROTEIN, BODY FLUID 2022-02-10 12:32:00 [facility] GLUCOSE, BODY FLUID 2022-02-10 12:32:00 Suyapa Webb [facility] XR ABDOMEN/KUB 1 VIEW 2022-02-10 04:18:00 Douglas Angela [facility] URINALYSIS W/ REFLEX URINE 2022-02-09 23:33:00 Keyana Herrera [facility] CULTURE [facility] CT ABDOMEN/PELVIS WITH IV 2022-02-09 20:53:00 Keyana Herrera [facility] CONTRAST [facility] ECG 12-LEAD 2022-02-09 19:28:35 Aida [facility] ECG 12-LEAD 2022-02-09 19:28:35 Unknown, Hl7 Doctor [facility] BLOOD CULTURE 2022-02-09 19:11:00 Keyana Herrera [facility] AMMONIA 2022-02-09 19:09:00 Aida [facility] SARS-COV2/RT-PCR ([facility] & 2022-02-09 19:08:00 Suyapa Webb [facility] REF LABS) Center LACTIC ACID, VENOUS 2022-02-09 18:49:00 [facility] BLOOD [facility] 2022-02-09 18:48:00 [facility] & AUTO 2022-02-09 18:48:[address] [facility] DIFFERENTIAL [facility] COMPREHENSIVE METABOLIC 2022-02-09 18:48:00 Aida [facility] LIP[facility] 2022-02-09 18:48:00 Aida [facility] PT/APTT 2022-02-09 18:48:00 Aida [facility] CBC W/PLT COUNT & AUTO 2022-02-09 18:48:00 Aida [facility] DIFFERENTIAL [facility] PROTHROMBIN TIME/INR 2022-02-09 13:40:00 Eros [facility] BLOOD CULTURE 2022-02-09 13:37:00 Eros [facility] MISCELLANEOUS LAB ORDER 2022-02-09 13:37:[address] [facility] METABOLIC 2022-02-09 13:37:00 Eros [facility] BILIRUBIN, DIRECT 2022-02-09 13:37:00 Eros [facility] CBC W/PLT COUNT & AUTO 2022-02-09 13:37:00 Eros [facility] HEPATITIS A ANTIBODY, IGG 2022-02-09 13:37:00 [facility] HEPATITIS C ANTIBODY 2022-02-09 13:37:00 Eros [facility] [id number]\\, 2022-02-09 13:37:00 Eros [facility] ANTI-NUCLEAR ANTIBODY 2022-02-09 13:37:00 Eros [facility] (OSKAR) [place] LACTIC ACID, VENOUS 2022-02-09 13:37:00 Eros [facility] PROCALCITONIN 2022-02-09 13:37:00 Rosalva Cooney [facility] OSKAR TITER AND PATTERN 2022-02-09 13:37:00 Rosalva Cooney [facility] CBC W/PLT COUNT & AUTO 2022-02-09 13:37:00 Rosalva Cooney [facility] EKG-SCANNED 2022-02-09 00:00:00 ProviderSay [facility] [id number] 2021-10-24 00:00:00 CANJO.01 [facility] [id number] 2021-10-24 00:00:00 CANJO.01 [facility] [id number] 2021-10-19 00:00:00 CANJO.01 [facility] [id number] 2021-10-19 00:00:[address] [place] [address] [id number] 2021-10-17 00:00:00 [facility] [id number] 2021-10-17 00:00:00 [facility] [id number] 2021-10-17 00:00:00 [facility] [id number] 2021-10-17 00:00:00 [facility] [id number] 2021-10-17 00:00:00 [facility] [id number] 2021-10-17 00:00:00 [facility] [id number] 2021-10-17 00:00:00 [facility] [id number] 2021-10-17 00:00:00 [facility] [id number] 2021-10-17 00:00:00 [facility] [id number] 2021-10-17 00:00:00 [facility] [id number] 2021-10-14 00:00:00 [facility] [id number] 2021-10-14 00:00:00 [facility] [id number] 2021-10-14 00:00:00 [facility] [id number] 2021-10-14 00:00:00 MOIKH [facility] [id number] 2021-10-11 00:00:00 CANJO.01 [facility] [id number] 2021-10-11 00:00:00 CANJO.01 [facility] MAGNESIUM 2021-10-08 10:00:00 Kira [facility] COMP. METABOLIC PANEL 2021-10-08 10:00:00 Kira [facility] ([id number]) [facility] CBC WITHOUT DIFF 2021-10-08 10:00:00 Kira [facility] N-TERMINAL PRO-BNP 2021-10-08 10:00:00 Kira [facility] MAGNESIUM 2021-10-07 09:44:00 Kira [facility] COMP. METABOLIC PANEL 2021-10-07 09:44:00 Kira [facility] ([id number]) [facility] CBC WITH DIFF 2021-10-07 09:44:[address] [facility] CT HEAD WO CONTRAST 2021-10-06 23:27:16 Kira [facility] XR ELBOW <3 VW LEFT 2021-10-06 23:19:00 Kira [facility] TRANSTHORACIC ECHO (TTE) 2021-10-06 17:32:04 Fredo Berrios [facility] PNEUMOCOCCAL ANTIGEN 2021-10-06 12:20:00 Fredo Berrios [facility] CORTISOL AM 2021-10-06 11:45:00 Justen [facility] LACTIC ACID WHOLE BLOOD 2021-10-06 09:24:00 Justen [facility] AMMONIA, PLASMA 2021-10-06 08:28:00 Fredo Berrios [facility] MAGNESIUM 2021-10-06 08:21:00 Fredo Berrios [facility] THYROID STIMULATING 2021-10-06 08:21:00 Sandra Dorsey [facility] HORMONE [facility] COMP. METABOLIC PANEL 2021-10-06 08:21:00 Fredo Berrios [facility] ([id number]) Medical Branch US ABDOMEN LIMITED 2021-10-06 02:00:00 Fredo Berrios [facility] TROPONIN I 2021-10-06 01:12:00 Fredo Berrios [facility] HEPATITIS C VIRUS (HCV) BY 2021-10-06 01:09:00 Fredo Berrios [facility] QUANTITATIVE NAAT [facility] LACTIC ACID WHOLE BLOOD 2021-10-06 00:02:00 Fredo Berrios [facility] MYCOPLASMA PNEUMONIAE 2021-10-06 00:01:00 Fredo Berrios [facility] ANTIBODY, IGM [facility] HEPATITIS B SURFACE 2021-10-06 00:01:00 Fredo Berrios [facility] ANTIBODY [facility] HCV ANTIBODY 2021-10-06 00:01:00 Fredo Berrios [facility] HBC ANTIBODY (IGM & IGG) 2021-10-06 00:01:00 Fredo Berrios [facility] PROCALCITONIN 2021-10-06 00:01:00 Fredo Berrios [facility] MRSA / MSSA SCREEN BY PCR, 2021-10-05 23:52:00 Fredo Berrios [facility] NARES [facility] RESPIRATORY PANEL BY PCR 2021-10-05 23:52:00 Fredo Berrios [facility] LACTIC ACID WHOLE BLOOD 2021-10-05 20:29:00 Babatunde Aragon [facility] BLOOD CULTURE SCREEN 2021-10-05 17:35:00 Babatunde Aragon [facility] URINE CULTURE 2021-10-05 17:35:00 Babatunde Aragon [facility] BLOOD CULTURE WORKUP 2021-10-05 17:35:00 Babatunde Aragon [facility] GRAM POSITIVE BLOOD 2021-10-05 17:35:00 Babatunde Aragon [facility] PATHOGENS DNA [facility] PROBE-ANAEROBIC CT ABDOMEN PELVIS W 2021-10-05 16:10:00 Babatunde Aragon [facility] CONTRAST [facility] CT CHEST PULMONARY 2021-10-05 16:10:00 Babatunde Aragon [facility] ANGIOGRAM Medical Branch [facility] PATIENT FINANCIAL 2021-10-05 14:58:02 Doctor Unassigned, [facility] POLICY [facility] NO SHOW OR MISSED 2021-10-05 14:57:08 Doctor Almasscesar, [facility] APPOINTMENT POLICY [facility] ACKNOWLEDGEMENT NOTICE OF PRIVACY 2021-10-05 14:55:14 Doctor Unassigned, [facility] PRACTICES [facility] CONSENT/REFUSAL FOR 2021-10-05 14:54:54 Doctor Aida, [facility] DIAGNOSIS AND TREATMENT [facility] ASSIGNMENT OF BENEFITS 2021-10-05 14:54:42 Doctor Unasscesar, [facility] [place] AC PANEL 20 + LACTIC ACID 2021-10-05 14:48:00 Babatunde Aragon [facility] COVID-19 (ID NOW RAPID 2021-10-05 14:48:00 Babatunde Aragon [facility] TESTING) Medical Branch LAB ONLY COVID 2021-10-05 14:48:[address] [facility] INTERPRETATION [facility] AMMONIA, PLASMA 2021-10-05 14:47:00 Singer [facility] TROPONIN I 2021-10-05 14:47:00 Singer [facility] COMP. METABOLIC PANEL 2021-10-05 14:47:00 [facility] ([id number]) Medical Branch CBC WITH DIFF 2021-10-05 14:47:00 Singer [facility] PROTHROMBIN TIME / INR 2021-10-05 14:47:00 [facility] D-DIMER 2021-10-05 14:47:00 Singer Babatunde [facility] URINALYSIS 2021-10-05 14:47:00 Singer [facility] N-TERMINAL PRO-BNP 2021-10-05 14:47:00 Babatunde Aragon [facility] EKG-12 LEAD 2021-10-05 14:44:49 Yash [facility] CONSENT/REFUSAL FOR 2021-10-05 14:31:59 Doctor Aida [facility] DIAGNOSIS AND TREATMENT [facility] NOTICE OF PRIVACY 2021-10-05 14:31:43 Doctor Unassigned, [facility] PRACTICES [facility] Plan of Care Planned Activity Planned Date Details Comments Source Future Scheduled Test 2022-03-29 Screening for [facility] 14:45:09 malignant neoplasm of Medici ne colon (procedure) [code = [id number]] Future Scheduled Test 2022-03-29 COVID-19 Vaccine (#1) [facility] 14:45:09 [code = COVID-19 Medicine Vaccine (#1)] Future Scheduled Test 2022-03-29 Pneumococcal 65+ (1 - [facility] 14:45:09 PCV) [code = Medicine Pneumococcal 65+ (1 - PCV)] Future Scheduled Test 2022-03-29 TETANUS SHOT (ADULT) [facility] 14:45:09 [code = TETANUS SHOT Medicin e (ADULT)] Future Scheduled Test 2022-03-29 ZOSTER VACCINE (1 of [facility] of 14:45:09 2) [code = ZOSTER Medicine VACCINE (1 of 2)] Future Scheduled Test 2022-03-29 MEDICARE AWV (Initial) [facility] 14:45:09 [code = MEDICARE AWV Medicin e (Initial)] Future Scheduled Test 2022-03-29 FALL SCREEN [code = [facility] 14:45:09 FALL SCREEN] Medicine Future Scheduled Test 2022-03-29 FLU VACCINE > 6 MONTHS [facility] 14:45:09 [code = FLU VACCINE > Medici ne 6 MONTHS] Future Scheduled Test 2022-03-[address] [facility] 00:00:00 WELLNESS (YEAR 2 or Medical Center FIRST YEAR if no IPPE) [code = MEDICARE ANNUAL WELLNESS (YEAR 2 or FIRST YEAR if no IPPE)] Future Scheduled Test 2022-03-23 INFLUENZA VACCINE (#1) [facility] 00:00:00 [code = INFLUENZA Medical Ce nter VACCINE (#1)] Future Scheduled Test 2021-07-[address] [facility] 00:00:00 (12+) [code = Medical Center DEPRESSION SCREENING (12+)] Future Scheduled Test 2021-07-23 FALLS RISK SCREENING [facility] 00:00:00 [code = FALLS RISK Medical C enter SCREENING] Future Scheduled Test 2006 SHINGLES VACCINES ([address] [facility] 00:00:00 of 2) [code = SHINGLES Medic al Center VACCINES (1 of 2)] Future Scheduled Test 1975 DTAP/TDAP/TD VACCINES [facility] 00:00:00 (1 - Tdap) [code = Medical C enter DTAP/TDAP/TD VACCINES (1 - Tdap)] Future Scheduled Test 1962 PNEUMOCOCCAL 65+ YRS [facility] 00:00:00 (1 - PCV) [code = Medical Ce nter PNEUMOCOCCAL 65+ YRS (1 - PCV)] Future Scheduled Test 1955 COVID-19 VACCINE (#1) [facility] 00:00:00 [code = COVID-[address] VACCINE (#1)] Future Scheduled Test [address] [facility] 00:00:00 (combo) [code = CT Medical C enter Colonography (combo)] Future Scheduled Test 1955 [facility] malignant neoplasm of Medica l Center colon (procedure) [code = 039170099] Future Scheduled Test 1955 [facility] for [facility]:00 malignant neoplasm of Medica [facility] Center colon (procedure) [code = 039337207] Future Scheduled Test 1955 [facility]:00 malignant neoplasm of Medica l Center colon (procedure) [code = 994331399] Future Scheduled Test 1955 [facility]:00 malignant neoplasm of Medica l Center colon (procedure) [code = 401596725] Future Scheduled Test 1955 Sigmoidoscopy [code = [facility] 00:00:00 Sigmoidoscopy] Medical Ashley duff Future Appointment 2022-05-26 Araceli Amato MD, [address] [facility] [address] [facility] 09:30:[address]; [address], [place] [address] Encounters Start End Encounter Admission Attending Care Care Encounter Source Date/Time Date/Time Type Type Clinicians Facility Department ID 2020-10-06 Inpatient ER Vera, Hyacinth [facility] [id number] 13:30[facility]00 [id number] 2022-05-18 2022-05-18 Telephone Nestor [facility] [id number] 00:00:00 00:00:00 [facility] 2022-04-27 2022-04-27 Outpatient DEVON BELL [facility] [id number] [facility] 13:27:18 13:55:18 SCOOTER purdy of Medicin e 2022-04-18 2022-04-18 Telephone Marylin [facility] [id number] 00:00:00 00:00:00 [facility] 2022-04-13 2022-04-13 Outpatient GONZALES [facility] [id number] [facility] 09:39:29 10:43:42 CHON chowdhury of Medicin e 2022-04-12 2022-04-12 Documentat Nestor [facility] [id number] 00:00:00 00:00:00 ion [facility] 2022-04-10 2022-04-10 [facility] [id number] 11:02:13 23:59:00 Encounter [facility] 2022-04-10 2022-04-10 Office Scarlet Fritz [facility] [id number] 09:30:00 10:00:00 Visit Mary Poon [facility] 2022-04-06 2022-04-06 Orders Juan [facility] [id number] 00:00:00 00:00:00 Only Sulma Hong [facility] 2022-04-04 2022-04-04 Documentat Sheridan [facility] [id number] 00:00:00 00:00:00 ion Cristela [facility] 2022-03-31 2022-03-31 Telephone Mariam [facility] [id number] 00:00:00 00:00:[address] [facility] 2022-03-30 2022-03-30 [facility] [id number] 11:50:30 23:59:00 Encounter [facility] 2022-03-30 2022-03-30 [facility] [id number] 11:42:06 11:49:00 Encounter [facility] 2022-03-30 2022-03-30 [facility] [id number] [id number] 11:00:00 11:41:00 Encounter [facility] 2022-03-30 2022-03-30 [facility] [id number] [id number] 09:25:37 10:59:00 Encounter [facility] 2022-03-30 2022-03-30 [facility] [id number] 09:25:15 10:59:00 Encounter [facility] 2022-03-30 2022-03-30 [facility] [id number] 09:25:01 10:59:00 Encounter [facility] 2022-03-30 2022-03-30 [facility] [id number] [facility] 06:00:00 09:24:00 Encounter 3, [facility] 2022-03-30 2022-03-30 Telephone Gilberto [facility] [id number] 00:00:00 00:00:00 Justin [facility] 2022-03-29 2022-03-29 Office DEVON Bell [id number] [facility] 14:00:00 15:02:44 Visit Scooter AMBULATOR 350.1.13.21 College Y 0.2.7.2.686 of [id number] [facility] 815 e 2022-03-29 2022-03-29 Refill Mariam [facility] [id number] 00:00:00 00:00:[address] [facility] 2022-03-23 2022-03-23 Telephone Nestor [facility] [id number] 00:00:00 00:00:00 [facility] 2022-03-22 2022-03-22 Documentleonid Manzano [facility] [id number] 00:00:00 00:00:00 [facility] 2022-03-10 2022-03-10 Documentleonid Baez [facility] [id number] 00:00:00 00:00:00 ion [facility] 2022-03-10 2022-03-10 Paresh Baez [facility] [id number] 00:00:00 00:00:00 ion [facility] 2022-03-10 2022-03-10 Documentleonid Baez [facility] [id number] 00:00:00 00:00:00 ion [facility] 2022-03-10 2022-03-10 Paresh Martinez [facility] [id number] 00:00:00 00:00:00 [facility] 2022-03-08 2022-03-08 Office Araceli Amato [facility] [id number] [facility] 11:30:00 12:00:00 Visit Justin Macias [facility] 2022-03-08 2022-03-08 Evaluation Araceli Amato [facility] [id number] 10:30:00 11:30:00 Dk Grijalva [facility] 2022-03-08 2022-03-08 Evaluation Araceli Amato [facility] [id number] 09:00:00 09:30:00 Luis Gamez [facility] 2022-03-08 2022-03-08 Social Araceli Amato [facility] [id number] [facility] 08:30:00 09:00:00 Work Rios Arndt [facility] 2022-03-08 2022-03-08 Orders Araceli Amato [facility] [id number] 08:20:00 08:30:00 Only [facility] 2022-03-08 2022-03-08 [facility] [id number] 00:00:00 00:00:00 [facility] 2022-03-08 2022-03-08 Telephone Nestor, [facility] [id number] 00:00:00 00:00:00 [facility] 2022-03-08 2022-03-08 Documentat Javi [facility] [id number] 00:00:00 00:00:00 ion [facility] 2022-03-06 2022-03-06 Telephone Yamil [facility] [id number] 00:00:00 00:00:00 [facility] 2022-03-06 2022-03-06 Telephone Nestor [facility] [id number] 00:00:00 00:00:00 [facility] 2022-02-28 2022-02-28 Telephone Nestor [facility] [id number] 00:00:00 00:00:00 [facility] 2022-02-22 2022-02-22 Telephone Nestor [facility] [id number] 00:00:00 00:00:00 [facility] 2022-02-20 2022-02-20 Telephone Juan [facility] [id number] 00:00:00 00:00:00 Sulma Hal [facility] 2022-02-20 2022-02-20 Orders Zulma [facility] [id number] 00:00:00 00:00:[address] [facility] 2022-02-18 2022-02-18 Orders Juan [facility] [id number] 00:00:00 00:00:00 Only Sulma Hong [facility] 2022-02-09 2022-02-17 Inpatient ER TRACEY, [facility] Surgery [id number] [facility] 19:40:00 11:24:00 SUYAPA 2022-02-09 2022-02-17 [facility] Keyana Herrera [facility] [id number] [facility] 19:40:00 11:24:00 [facility] 2022-02-15 2022-02-15 Documentat Nestor [facility] [id number] 00:00:00 00:00:00 ion Kaye [facility] 2022-02-14 2022-02-14 Outpatient EL [facility] [id number] [facility] 00:00:00 00:00:00 2022-02-13 2022-02-13 Surgery Sheridan [facility] [id number] 07:30:00 09:37:00 [facility] 2022-02-13 2022-02-13 Anesthesia Olga-Te [facility] [id number] [facility] 07:26:00 09:06:00 Event Manoj wallace [facility] 2022-02-09 2022-02-09 Outpatient [facility] [id number] [facility] 19:40:00 23:59:00 [facility] 2022-02-09 2022-02-09 Outpatient [facility] [id number] [facility] 00:00:00 19:39:00 [facility] 2022-02-09 2022-02-09 Office Lam [facility] [id number] 11:00:00 12:00:00 Visit [facility] 2022-02-09 2022-02-09 Outpatient ZHOU FRITZ [facility] [id number] [facility] 11:42:22 11:42:22 RISE 2022-02-09 2022-02-09 Outpatient CONCHITA OWENS [facility] [id number] [facility] 00:00:00 00:00:00 PRASUN 2022-02-09 2022-02-09 Orders [facility] [id number] 00:00:00 00:00:00 [facility] 2022-02-09 2022-02-09 Documentat Marko, [facility] [id number] 00:00:00 00:00:00 ion [facility] 2022-02-09 2022-02-09 Telephone Poon, [facility] [id number] 00:00:00 00:00:00 [facility] 2022-02-09 2022-02-09 Travel [facility] [id number] [facility] 00:00:00 00:00:00 [facility] 2022-02-09 2022-02-09 Telephone Giraldo, [facility] [id number] 00:00:00 00:00:00 [facility] 2022-02-09 2022-02-09 Abstract Luis Gamez [facility] [id number] 00:00:00 00:00:00 [facility] 2022-02-08 2022-02-08 Outpatient CONCHITA SANCHEZ [facility] [id number] [facility] 00:00:00 00:00:00 MADDIE 2022-02-08 2022-02-08 Outpatient CONCHITA OWENS [facility] [id number] [facility] 00:00:00 00:00:00 PRASUN 2021-10-11 2021-10-26 Inpatient EM DAFNE Kidd INTE [id number] [facility] 14:19:00 16:56:[address] [facility] 2021-10-12 2021-10-12 Outpatient REYES Kidd LABO [id number] [facility] 01:15:00 01:15:00 Mary 08 [facility] 2021-10-10 2021-10-10 Transition CARLOS Molina [id number] [id number] [facility] 00:00:00 00:00:00 of Anmol SHI 350.1.13.10 it y of ZENAIDA 4[facility]2.7.2.686 [id number] [facility] [address] 2021-10-05 2021-10-08 Hospital Babatunde Aragon [facility] 1.2.840.1 [id number] Univers 09:32:00 11:36:00 Encounter Fredo Berrios SHYANN 350.1.13.10 ity of Jakub MaloneMACIEJ 4.2.7.2.686 [facility] [id number] [facility] [address] 2021-10-05 2021-10-08 Inpatient X KIRA [facility] [id number] Univers 09:32:00 11:36:00 JAKUB cade [facility] 2021-04-11 2021-04-11 Emergency ER Provider, [facility] [id number] 10:28:00 10:28:00 Express -[id number] Melvin Bacon Reid Emeka 2020-10-05 2020-10-05 Emergency ER Provider, [facility] [id number] 11:17:00 11:17:00 Express -[id number] Lucretiajocelyne omero Reid Emeka 2020-06-11 2020-06-11 Emergency ER Provider, [facility] [id number] 12:11:00 12:11:00 Express -[id number] Lucretiajocelyne omero Reid Emeka Results Test Description Test Time Test Comments Results Result [facility] e Comments CT, ABDOMEN 2022-04-12 14:02:00 [facility] 1955 Sex: M FINAL REPORT ABDOMINAL AND PELVIS CT DATED 04/12/2022 COMPARISON: February 09, 2022 CLINICAL INFORMATION: hernia TECHNIQUE: Axial images of the abdomen and pelvis were obtained from diaphragm to the pubic symphysis with GI and intravenous contrast. This exam was performed according to our departmental dose-optimization program, which includes automated exposure control, adjustment of the mA and/or kV according to patient size and/or use of interactive reconstruction technique. COMMENT: Liver is cirrhotic in appearance with irregular margins. No suspicious mass is seen in the liver. Spleen is enlarged measuring approximately 17.8 x 8.8 x 13.8 cm. The splenic, spleen mesenteric, portal, and hepatic veins are patent. Main portal vein measures 17.6 cm. There is splenorenal shunt. Gallbladder is distended. No gallstone, gallbladder wall thickening, or pericholecystic fluid collection, or biliary dilatation is noted. Pancreas and adrenals are unremarkable. Both kidneys are normal in size and functioning. No hydronephrosis, hydroureter, urolithiasis is seen. A 1.6 x 2.4 cm cyst is seen in the upper pole right kidney. The small and large bowel are unremarkable. Appendix is as normal in caliber. Prostate is normal in size. The urinary bladder is contracted. No mass, adenopathy or ascites is present. IMPRESSION: 1. Cirrhosis with splenomegaly and portal hypertension.2. No suspicious hepatic mass.3. Distended gallbladder without gallstone, gallbladder wall thickening, pericholecystic fluid collection, or biliary dilatation.4. Right renal cyst. Signed: Iva Atkins MDReport Verified Date/Time: 04/12/2022 14:02:36 Reading Location: [facility] B1 C013Y CT Body Reading Room C METABOLIC PANEL 2022-04-10 15:05:39 Test Item Value Reference Range Interpretation Comme nts SODIUM (BEAKER) (test 133 meq/L 136-145 L code = 381) POTASSIUM (BEAKER) 4.8 meq/L 3.5-5.1 (test code = 379) CHLORIDE (BEAKER) (test 96 meq/L 98-107 L code = 382) CO2 (BEAKER) (test code 26 meq/L 22-29 = 355) BLOOD UREA NITROGEN 30 mg/dL 7-21 H (BEAKER) (test code = 354) CREATININE (BEAKER) 1.32 mg/dL 0.57-1.25 H (test code = 358) GLUCOSE RANDOM (BEAKER) 101 mg/dL 70-105 (test code = 652) CALCIUM (BEAKER) (test 9.4 mg/dL 8.4-10.2 code = 697) EGFR (BEAKER) (test 61 mL/min/1.73 sq In terpretation of eGFR values code = 1092) m Stage Descripti on Result G1 Normal or high >=90 G2 Mildly decreased 60-89 G3a Mildly to moderately 45-5 9 G3b Moderately to severely 30- 44 G4 Severly decreased 15-2 9 G5 Kidney failure <15Repo rted eGFR is based on the CK D-EPI 2020 equation that d oes not use a race coefficien tEstimated GFR is not as accurate as Creatinine Clearance in pr edicting glomerular filt ration rate. Estimated GFR i s not applicable for dialysis karen cruz Automatic Drill Operator ID - MITCHOperator ID - BSHEPATIC FUNCTION [id number] 14:50:35 Test Item Value Reference Range Interpretation Comments TOTAL PROTEIN (BEAKER) (test code = 8.1 gm/dL 6.0-8.3 770) ALBUMIN (BEAKER) (test code = 1145) 3.8 g/dL 3.5-5.0 BILIRUBIN TOTAL (BEAKER) (test code 1.3 mg/dL 0.2-1.2 H = 377) BILIRUBIN DIRECT (BEAKER) (test 0.6 mg/dL 0.1-0.5 H code = 706) ALKALINE PHOSPHATASE (BEAKER) (test 105 U/L 40-150 code = 346) AST (SGOT) (BEAKER) (test code = 33 U/L 5-34 353) ALT (SGPT) (BEAKER) (test code = 17 U/L 6-55 347) Automatic Drill Operator ID - MITCHPROTHROMBIN [id number] 14:23:04 Test Item Value Reference Range Interpretation Comments PROTIME (BEAKER) 15.7 seconds 11.9-14.2 H (test code = 759) INR (BEAKER) (test 1.33 See_Comment [Automat ed message] code = 370) The system [employer] generated this result transmitted ref erence range: <=5.90. The reference range was not used to int erpret this result as normal/abnormal . RECOMMENDED COUMADIN/WARFARIN INR THERAPY RANGESSTANDARD DOSE: 2.0 - 3.0 Includes: PROPHYLAXIS for venous thrombosis, systemic embolization; TREATMENT for venous thrombosis and/or pulmonary embolus.HIGH RISK: Target INR is 2.5-3.5 for patients with mechanical heart valves.CBC W/PLT COUNT & AUTO [id number] 14:15:48 Test Item Value Reference Range Interpretation Comments WHITE BLOOD CELL COUNT (BEAKER) 4.5 K/ L 3.5-10.5 (test code = 775) RED BLOOD CELL COUNT (BEAKER) 3.54 M/ L 4.63-6.08 L (test code = 761) HEMOGLOBIN (BEAKER) (test code = 12.2 GM/DL 13.7-17.5 L 410) HEMATOCRIT (BEAKER) (test code = 35.2 % 40.1-51.0 L 411) MEAN CORPUSCULAR VOLUME (BEAKER) 99.4 fL 79.0-92.2 H (test code = 753) MEAN CORPUSCULAR HEMOGLOBIN 34.5 pg 25.7-32.2 H (BEAKER) (test code = 751) MEAN CORPUSCULAR HEMOGLOBIN CONC 34.7 GM/DL 32.3-36.5 (BEAKER) (test code = 752) RED CELL DISTRIBUTION WIDTH 17.1 % 11.6-14.4 H (BEAKER) (test code = 412) PLATELET COUNT (BEAKER) (test code 53 K/CU MM 150-450 L = 756) MEAN PLATELET VOLUME (BEAKER) 9.3 fL 9.4-12.4 L (test code = 754) NUCLEATED RED BLOOD CELLS (BEAKER) 0 /100 WBC 0-0 (test code = 413) NEUTROPHILS RELATIVE PERCENT 66 % (BEAKER) (test code = 429) LYMPHOCYTES RELATIVE PERCENT 20 % (BEAKER) (test code = 430) MONOCYTES RELATIVE PERCENT 9 % (BEAKER) (test code = 431) EOSINOPHILS RELATIVE PERCENT 4 % (BEAKER) (test code = 432) BASOPHILS RELATIVE PERCENT 1 % (BEAKER) (test code = 437) NEUTROPHILS ABSOLUTE COUNT 2.99 K/ L 1.78-5.38 (BEAKER) (test code = 670) LYMPHOCYTES ABSOLUTE COUNT 0.91 K/ L 1.32-3.57 L (BEAKER) (test code = 414) MONOCYTES ABSOLUTE COUNT (BEAKER) 0.40 K/ L 0.30-0.82 (test code = 415) EOSINOPHILS ABSOLUTE COUNT 0.19 K/ L 0.04-0.54 (BEAKER) (test code = 416) BASOPHILS ABSOLUTE COUNT (BEAKER) 0.04 K/ L 0.01-0.08 (test code = 417) IMMATURE GRANULOCYTES-RELATIVE 0 % 0-1 PERCENT (BEAKER) (test code = 2801) MR, ABDOMEN, WITHOUT / WITH IV [id number] 14:22:00NAGA HURT MDUnlisted Reason for Exam - Click Yes and Enter Reason Below->YesUnlisted Reason for Exam->[facility] 1955 Sex: MFINAL REPORT MRI of the abdomen with and without contrast Clinical History: Unlisted Reason for ExamPre transplant liver eval Technique: Multiplanar and multisequence MR images of the abdomen are obtained before and after intravenous contrast administration. Contrast is administered to evaluate neoplasm and vasculature. Comparison: CT dated February 09, 2022 Discussion: Liver is cirrhotic. There is no biliary ductal dilatation. Small peribiliary cysts are present. Liver enhances slightly heterogeneously, with confluent bands of fibrosis, and peripheral wedge-shaped or reticular early enhancing foci that most likely represent perfusion anomalies (LI-RADS 2). In segment 6, there is a peripheral nodular focus of arterial phase enhancement that measures 9 mm (arterial phase image 51),demonstrating no clear washout, LI-RADS 3. In segment 7/8, there is another vague 5 mm arterially enhancing nodule (arterial phase image 36), without washout, also LI-RADS 3. Hepatic vasculature is patent. Main portal vein measures up to 16 mm in diameter. The spleen is enlarged, and measures 19.3 cm sagittally. There are perisplenic varices. The pancreas, and adrenal glands appear normal. Kidneys demonstrate no mass or hydronephrosis. Right kidney contains a 2.2 cm cyst, no imaging follow-up is recommended. There is a small amount of ascites. Borderline prominent ally hepatis, and retroperitonealnodes are unchanged and nonspecific. Visualized bowel is unremarkable. There is a small ventral hernia containing unobstructed bowel. No suspicious bony lesion. Note is made of bilateral gynecomastia. Impression: Cirrhosis and splenomegaly. Small amount of ascites. There are two LI-RADS 3 lesions in the right hepatic lobe, measuring 9 mm in segment 6, and 5 mm in segment 7/8. Suggest six month surveillance. Borderline prominent ally hepatis and retroperitoneal lymph nodes are stable, and nonspecific, suggest attention on future exam. Signed: Jaclyn Martinezeport Verified Date/Time: 04/01/2022 14:22:50 Carotid doppler [id number] 08:35:57Ejection FractionSLEH ECHO HEARTLAB MKCKESSON [facility] M[facility]IBLE, MIN 4 [id number] 17:25:00SIDDIQUI, NAGA SHAY MDReason for Exam:->Pre [facility] liver [facility] : 1955 Sex: MFINAL REPORT MANDIBLE 5 VIEWS HISTORY: Liver transplant evaluation COMPARISON: No comparison mandibular imaging FINDINGS: Prasanna, PA, bilateral oblique, and lateral images of the mandible were obtained. No mandibular fracture is visualized. No bony destruction is visualized in themandible. No periapical abscess. Multiple lucencies are seen in the remaining teeth and tooth remnants suggestive of multiple maxillary and mandibular dental caries. Signed: Fredo Mcdermott MDReport Verified Date/Time: 03/30/2022 17:25:00 ECHO W CONTRAST & DOPPLER 2022-03-30 15:51:59Ejection [facility] ECHO HEARTLAB MKCKESSON [facility] BONE DENSITY [id number] 12:37:00SINAGA DELAROSA MDReason for Exam:->Pre transplant liver [facility] : 1955 Sex: MFINAL REPORT BONE MINERAL DENSITY CLINICAL HISTORY: Liver transplant evaluation COMPARISON: No prior comparison bone mineral density studies REPORT: Bone Mineral Density Measurement: Lumbar Spine (L1-L4): 0.888 g/lf9Lxmi Femoral Neck: 0.803 g/cm2 Standard Deviation as compared to the young adult population (T -score) Lumbar Spine: -2.8 Mean Femoral Neck: -2.1 Standard Deviation as compared to the age matched controls (Z-score) Lumbar Spine: -1.8Mean Femoral Neck: -0.6 There are no WHO criteria for the classification of osteopenia or osteoporosis in men. These measurements will serve as a baseline for future comparison. Signed: Fredo Mcdermott Verified Date/Time: 03/30/2022 12:37:59 Reading Location: [facility] Radiology Reading Room RAD, CHEST, 2 [id number] 12:33:00 NAGA HURT MDReason for Exam:->Pre liver transplant eval [facility] : 1955 Sex: MFINAL REPORT HISTORY: Liver transplant evaluation COMPARISON: No prior comparison chest imaging is available FINDINGS: Small right pleural effusion with mild adjacent scar versus subsegmental atelectasis at the right lung base. No pneumothorax. No left pleural effusion. The heart shadow is normal in size. The thoracic aorta is mildly tortuous and calcified. Mild degenerative changes are present in the spine. IMPRESSION: Small right pleural effusion. Signed: Fredo Mcdermott Verified Date/Time: 03/30/2022 12:33:13 Reading Location: [facility] Radiology Reading Room BLOOD GAS, [id number] 11:58:00 Test Item Value Reference Range Interpretation Comments PH ARTERIAL (BEAKER) (test code = 7.45 7.35-7.45 383) PCO2 ARTERIAL (BEAKER) (test code 36 mm Hg 35-45 = 384) PO2 ARTERIAL (BEAKER) (test code = 78 mm Hg 80-90 L 385) O2 SATURATION ARTERIAL (BEAKER) 96.2 % 96.0-97.0 (test code = 386) HCO3 ARTERIAL (BEAKER) (test code 24 mmol/L 21-29 = 388) BASE EXCESS ARTERIAL (BEAKER) 0.5 mmol/L -2.0-3.0 (test code = 387) PATIENT TEMPERATURE (BEAKER) (test 37.0 code = 1818) FIO2 (BEAKER) (test code = 1819) 21.0 MISCELLANEOUS LAB [id number] 14:30:49 Test Item Value Reference Range Interpretation Comments SCAN RESULT (test code = See scanned report [id number]) See scanned reportDrug screen, urine, [id number] 11:57:47 Test Item Value Reference Range Interpretation Comments Scan Result (test code = See scanned report [id number]) ALLYN (test code = ALLYN) See scanned report [facility], [id number] 11:57:47 Test Item Value Reference Range Interpretation Comments SCAN RESULT (test code = See scanned report [id number]) See scanned reportHEPATITIS C PCR, [id number] 06:16:44 Test Item Value Reference Range Interpretation Comments HCV RESULT COMPONENT HCV RNA not detected HCV RNA not detected (BEAKER) (test code = 2699) This test uses a Real-Time Polymerase Chain Reaction (RT-PCR) methodology and was performed using NAL[employer] Ampliprep/NALLELY TaqMan HCV test kit version 2.0 ([employer]).Reportable range for this assay is 15 - 100,000,000 IU per mL (1.18 - 8.00 Log IU/mL).[id number] 16:08:46 Test Item Value Reference Range Interpretation Comments T3 TOTAL (BEAKER) (test code = 1.00 ng/mL 0.60-1.81 656) Automatic Drill Operator ID - LITOCRYPTOCOCCAL [id number] 14:02:47 Test Item Value Reference Range Interpretation Comments CRYPTOCOCCAL ANTIGEN, SERUM Negative Negative, Interference (BEAKER) (test code = 1828) Urinalysis w/[id number] 13:43:44 Test Item Value Reference Range Interpretation Comments Color, UA (test Yellow code = 5778-6) Clarity, UA (test Clear code = 5767-9) Specific Chamberlain, 1.013 1.001-1.035 UA (test code = 5811-5) pH, UA (test code 5.0 5.0-8.0 = 5803-2) Protein, UA (test Negative Negative code = 36803-0) Glucose, UA (test Negative Negative code = 365) Ketones, UA (test Negative Negative code = 2514-8) Bilirubin, UA Negative Negative (test code = 04775-0) Blood, UA (test Negative Negative code = 77347-0) Nitrite, UA (test Negative Negative code = 5802-4) Leukocytes, UA Negative Negative (test code = 5799-2) Urobilinogen, UA 0.2 mg/dL 0.2-1.0 (test code = 41231-9) RBC, UA (test 1 See_Comment [Automated me ssage] code = 33555-8) The system [facility] generated this result transmit britta reference range : /HPF. The refer ence range was not u sed to interpret th is result as normal/abnormal . WBC, UA (test 1 See_Comment [Automated me ssage] code = 5821-4) The system [facility] generated this result transmit britta reference range : /HPF. The refer ence range was not u sed to interpret th is result as normal/abnormal . Bacteria, UA None Seen (test code = 04326-6) Mucus (test code Rare = 8247-9) Squam Epithel, UA <1 See_Comment [Automate d message] (test code = The system [facility] SmartPill 92352-6) generated this result transmit britta reference range : /HPF. The refer ence range was not u sed to interpret th is result as normal/abnormal . Hyaline Casts, UA 7 See_Comment [Automate d message] (test code = The system [employer] 64368-5) generated this result transmit britta reference range : /LPF. The refer ence range was not u sed to interpret th is result as normal/abnormal . Crystals, Urine None Seen (test code = 71830-5) Specimen Source (test code = 2795) ALLYN (test code = Automatic Drill Operator ID - ALLYN) [auto]Automatic Drill Operator ID - tech [facility]/ [id number] 13:43:44 Test Item Value Reference Range Interpretation Comments COLOR (BEAKER) (test code = 470) Yellow CLARITY (BEAKER) (test code = 469) Clear SPECIFIC GRAVITY UA (BEAKER) (test 1.013 1.001-1.035 code = 468) PH UA (BEAKER) (test code = 467) 5.0 5.0-8.0 PROTEIN UA (BEAKER) (test code = Negative Negative 464) GLUCOSE UA (BEAKER) (test code = Negative Negative 365) KETONES UA (BEAKER) (test code = Negative Negative 371) BILIRUBIN UA (BEAKER) (test code = Negative Negative 462) BLOOD UA (BEAKER) (test code = 461) Negative Negative NITRITE UA (BEAKER) (test code = Negative Negative 465) LEUKOCYTE ESTERASE UA (BEAKER) Negative Negative (test code = 466) UROBILINOGEN UA (BEAKER) (test code 0.2 mg/dL 0.2-1.0 = 463) RBC UA (BEAKER) (test code = 519) 1 /HPF WBC UA (BEAKER) (test code = 520) 1 /HPF BACTERIA (BEAKER) (test code = 517) None Seen MUCUS (BEAKER) (test code = 1574) Rare SQUAMOUS EPITHELIAL (BEAKER) (test < /HPF code = 516) HYALINE CASTS (BEAKER) (test code = 7 /LPF 514) CRYSTALS, URINE (BEAKER) (test code None Seen = 1521) SOURCE(BEAKER) (test code = 2795) Automatic Drill Operator ID - [auto]Automatic Drill Operator ID - [id number] 13:12:40 Test Item Value Reference Range Interpretation Comments RPR SCREEN (BEAKER) (test code = Nonreactive Nonreactive 420) EBV ANTIBODY, [id number] 12:53:45 Test Item Value Reference Range Interpretation Comments INDERJIT PEÑA VIRAL CAPSID Positive Negative, Equivocal A ANTIGEN IGG (BEAKER) (test code = 3415) Inderjit Peña Viral Capsid Antigen IgG Result Interpretation: </= 0.8 Al Negative 0.9-1.0 Al Equivocal >/= 1.1 Al PositiveHEMOGLOBIN [id number] 11:53:00 Test Item Value Reference Range Interpretation Comments HEMOGLOBIN A1C 4.4 % See_Comment [Automated m essage] ELECTROPHORESIS (BEAKER) The system which (test code = 3811) generated this result transmitted ref erence range: <=5.6%. The reference range was not used to int erpret this result as normal/abnormal . "The A1c is measured using a [facility]-certified method. HbA1c value equal to or greater than 6.5% as thediagnosis cutoff for diabetes. An HbA1c value of 5.7- 6.4% indicates increased risk for diabetes (prediabetes)."Automatic Drill Operator ID - ADMOperator ID - ADMVITAMIN D, [id number] 11:50:11 Test Item Value Reference Range Interpretation Comments VITAMIN D 25-OH (ANTHONY) (test 15.5 ng/mL 6.6-49.9 code = 2764) Effective 05/02/2017: Reference Range ChangeNew: 6.6-49.9 ng/mL Previous: 13.0- 47.8 ng/mLRecommendedVitamin D Target Range: 30.0-40.0 ng/mLOperator ID - NELLIE [id number] 11:42:19 Test Item Value Reference Range Interpretation Comments PROSTATE SPECIFIC ANTIGEN (CodemediaAKER) 0.0 ng/mL 0.0-4.0 (test code = 844) Automatic Drill Operator ID - MITCHHIV-1 ANTIGEN WITH HIV-1/2 [id number] 11:41:26 Test Item Value Reference Range Interpretation Comments HIV-1 ANTIGEN WITH HIV 1\\T\\2 Nonreactive Nonreactive ANTIBODY (2) (iLink) (test code = 2586) Automatic Drill Operator ID - MITCHHEPATITIS B CORE ANTIBODY, [id number] 11:40:50 Test Item Value Reference Range Interpretation Comments HEPATITIS B CORE IGM ANTIBODY Nonreactive Nonreactive (CodemediaAKER) (test code = 645) Automatic Drill Operator ID - MITCHHEPATITIS B CORE ANTIBODY, [id number] 11:40:50 Test Item Value Reference Range Interpretation Comments HEPATITIS B CORE TOTAL ANTIBODY Nonreactive Nonreactive (CodemediaAKER) (test code = 497) Automatic Drill Operator ID - MITCHCARCINOEMBRYONIC ANTIGEN (CEA)2022-03-08 11:40:49 Test Item Value Reference Range Interpretation Comments CARCINOEMBRYONIC ANTIGEN (CodemediaAKER) 7.6 ng/mL 0.0-5.0 H (test code = 685) Automatic Drill Operator ID - MITCHALPHA FETOPROTEIN (AFP), TUMOR [id number] 11:40:49 Test Item Value Reference Range Interpretation Comments ALPHA-FETOPROTEIN (BEAKER) (test 3.6 ng/mL <10.0 code = 1094) Automatic Drill Operator ID - MITCHCYTOMEGALOVIRUS ANTIBODY, [id number] 10:49:27 Test Item Value Reference Range Interpretation Comments CYTOMEGALOVIRUS, IGG (BEAKER) Negative Negative, Equivocal (test code = 3429) CMV IgG Result Interpretation: </= 0.8 Al Negative 0.9-1.0 Al Equivocal >/=1.1 Al PositiveEBV ANTIBODY, [id number] 10:49:27 Test Item Value Reference Range Interpretation Comments INDERJIT PEÑA VIRAL CAPSID Negative Negative, Equivocal ANTIGEN IGM (BEAKER) (test code = 3418) Inderjit Peña Viral Capsid Antigen IgM Result Interpretation: </= 0.8 Al Negative 0.9-1.0 Al Equivocal >/= 1.1 Al PositiveRUBELLA ANTIBODY, IGG 2022-03-08 10:49:27 Test Item Value Reference Range Interpretation Comments RUBELLA IGG QUANTITATION (BEAKER) > IU/mL <8.0 H (test code = 572) Rubella IgG Result Interpretation: </= 7.0 IU/mL Negative - Presumed non- immune 8.0 - 9.9 IU/mL Equivocal >= 10.0 IU/mL Positive - Presumed immune VARICELLA ZOSTER ANTIBODY, [id number] 10:49:27 Test Item Value Reference Range Interpretation Comments VARICELLA ZOSTER IGG (AL) (BEAKER) 3.2 (test code = 3197) VARICELLA ZOSTER RESULT INTERPRETATIONS: <=0.8 Al Nonreactive: Presumed non- immune to VZV 0.9-1.0Al Equivocal >=1.1 Al Reactive: Presumed immune to VZV [id number] 10:16:02 Test Item Value Reference Range Interpretation Comments THYROID STIMULATING HORMONE 4.679 uIU/mL 0.350-4.940 (BEAKER) (test code = 772) Automatic Drill Operator ID - BLESSING [id number] 10:15:57 Test Item Value Reference Range Interpretation Comments T4 TOTAL (BEAKER) (test code = 895) 7.6 ug/dL 4.9-11.7 Automatic Drill Operator ID - BLESSING [id number] 10:07:58 Test Item Value Reference Range Interpretation Comments FERRITIN (BEAKER) (test code = 126.78 ng/mL 5.00-275.00 361) Automatic Drill Operator ID - BLESSING MGAMMA GLUTAMYL TRANSFERASE (GGT)2022-03-08 09:59:35 Test Item Value Reference Range Interpretation Comments GAMMA GLUTAMYL TRANSFERASE (BEAKER) 25 U/L 9-64 (test code = 364) Automatic Drill Operator ID - BLESSING MCOMPREHENSIVE METABOLIC [id number] 09:59:34 Test Item Value Reference Range Interpretation Comments TOTAL PROTEIN 7.4 gm/dL 6.0-8.3 (BEAKER) (test code = 770) ALBUMIN (BEAKER) 3.3 g/dL 3.5-5.0 L (test code = 1145) ALKALINE 103 U/L 40-150 PHOSPHATASE (BEAKER) (test code = 346) BILIRUBIN TOTAL 0.8 mg/dL 0.2-1.2 (BEAKER) (test code = 377) SODIUM (BEAKER) 134 meq/L 136-145 L (test code = 381) POTASSIUM (BEAKER) 4.3 meq/L 3.5-5.1 (test code = 379) CHLORIDE (BEAKER) 103 meq/L 98-107 (test code = 382) CO2 (BEAKER) (test 24 meq/L 22-29 code = 355) BLOOD UREA 25 mg/dL 7-21 H NITROGEN (BEAKER) (test code = 354) CREATININE 1.04 mg/dL 0.57-1.25 (BEAKER) (test code = 358) GLUCOSE RANDOM 115 mg/dL 70-105 H (BEAKER) (test code = 652) CALCIUM (BEAKER) 9.0 mg/dL 8.4-10.2 (test code = 697) AST (SGOT) 35 U/L 5-34 H (BEAKER) (test code = 353) ALT (SGPT) 19 U/L 6-55 (BEAKER) (test code = 347) EGFR (BEAKER) 81 Interpretatio n of eGFR (test code = 1092) mL/min/1.[address] age Description sq m Result G1 Nasima l or high >=90 G2 Mildly decreased 60-89 G3a Mildl y to moderately 45-5 9 G3b Moderately to s everely 30-44 G4 Severl y decreased 15-29 G5 Kidney failure <15Reported eGF R is based on the CKD-EPI 2020 equation that d oes not use a race coefficientEsti mated GFR is not as accur ate as Creatinine Sheree forman in predicting glom erular filtration rate . Estimated GFR is not appl icable for dialysis patien ts Automatic Drill Operator ID - BLESSING [id number] 09:59:34 Test Item Value Reference Range Interpretation Comments MAGNESIUM (BEAKER) (test code = 2.1 mg/dL 1.6-2.6 627) Automatic Drill Operator ID - BLESSING [id number] 09:59:34 Test Item Value Reference Range Interpretation Comments PHOSPHORUS (BEAKER) (test code = 4.3 mg/dL 2.3-4.7 604) Automatic Drill Operator ID - BLESSING MURIC [id number] 09:59:34 Test Item Value Reference Range Interpretation Comments URIC ACID (BEAKER) (test code = 5.9 mg/dL 2.6-7.2 773) Automatic Drill Operator ID - BLESSING MLIPID [id number] 09:59:34 Test Item Value Reference Range Interpretation Comments TRIGLYCERIDES (BEAKER) (test code = 49 mg/dL 540) CHOLESTEROL (BEAKER) (test code = 111 mg/dL 631) HDL CHOLESTEROL (BEAKER) (test code 48 mg/dL = 976) LDL CHOLESTEROL CALCULATED (BEAKER) 53 mg/dL (test code = 633) Triglyceride Reference Range: Low Risk <150 Borderline 150-199 High Risk 200- 499 Very High Risk >=500Cholesterol Reference Range: Low Risk <200 Borderline 200-239 High Risk >240HDL Cholesterol Reference Range: Low Risk >=60 High Risk <40LDL Cholesterol Reference Range: Optimal <100 Near Optimal 100-129 Borderline 130-159 High 160-189 Very High >=190 Automatic Drill Operator ID - BLESSING MBILIRUBIN, [id number] 09:59:34 Test Item Value Reference Range Interpretation Comments BILIRUBIN DIRECT (BEAKER) (test 0.5 mg/dL 0.1-0.5 code = 706) Automatic Drill Operator ID - BLESSING [id number] 09:56:49 Test Item Value Reference Range Interpretation Comments TRANSFERRIN (BEAKER) (test code = 235 mg/dL 174-382 541) Automatic Drill Operator ID - BLESSING [id number] 09:54:11 Test Item Value Reference Range Interpretation Comments ETHANOL (BEAKER) < mg/dL See_Comment [Automated message] The (test code = 400) system [employer] generated this result tra nsmitted reference range : <=10. The reference r amanda was not used to int erpret this result as normal/abnormal . Automatic Drill Operator ID - BLESSING GENA, TIBC, % SAT. (WITHOUT FERRITIN)2022-03-08 09:54:11 Test Item Value Reference Range Interpretation Comments IRON (BEAKER) (test code = 547) 74.0 ug/dL 40.0-160.0 TOTAL IRON BINDING CAPACITY 296 ug/dL 250-450 (BEAKER) (test code = 769) IRON % SATURATION (2) (BEAKER) 25 % 20-55 (test code = 2590) Automatic Drill Operator ID - BLESSING [id number] 09:44:26 Test Item Value Reference Range Interpretation Comments FIBRINOGEN LEVEL (BEAKER) (test 258 mg/dl 225-434 code = 658) [id number] 09:44:05 Test Item Value Reference Range Interpretation Comments PARTIAL THROMBOPLASTIN TIME 31.6 seconds 22.5-36.0 (BEAKER) (test code = 760) PROTHROMBIN TIME/[id number] 09:43:28 Test Item Value Reference Range Interpretation Comments PROTIME (BEAKER) 16.3 seconds 11.9-14.2 H (test code = 759) INR (BEAKER) (test 1.40 See_Comment [Automat ed message] code = 370) The system [employer] generated this result transmitted ref erence range: <=5.90. The reference range was not used to int erpret this result as normal/abnormal . RECOMMENDED COUMADIN/WARFARIN INR THERAPY RANGESSTANDARD DOSE: 2.0 - 3.0 Includes: PROPHYLAXIS for venous thrombosis, systemic embolization; TREATMENT for venous thrombosis and/or pulmonary embolus.HIGH RISK: Target INR is 2.5-3.5 for patients with mechanical heart valves.CALCIUM, [id number] 09:39:26 Test Item Value Reference Range Interpretation Comments CALCIUM IONIZED (BEAKER) (test 1.12 mmol/L 1.12-1.27 code = 698) PH, BLOOD (BEAKER) (test code = 7.42 1810) CBC W/PLT COUNT & AUTO [id number] 09:37:44 Test Item Value Reference Range Interpretation Comments WHITE BLOOD CELL COUNT (BEAKER) 3.3 K/ L 3.5-10.5 L (test code = 775) RED BLOOD CELL COUNT (BEAKER) 3.05 M/ L 4.63-6.08 L (test code = 761) HEMOGLOBIN (BEAKER) (test code = 9.9 GM/DL 13.7-17.5 L 410) HEMATOCRIT (BEAKER) (test code = 28.6 % 40.1-51.0 L 411) MEAN CORPUSCULAR VOLUME (BEAKER) 93.8 fL 79.0-92.2 H (test code = 753) MEAN CORPUSCULAR HEMOGLOBIN 32.5 pg 25.7-32.2 H (BEAKER) (test code = 751) MEAN CORPUSCULAR HEMOGLOBIN CONC 34.6 GM/DL 32.3-36.5 (BEAKER) (test code = 752) RED CELL DISTRIBUTION WIDTH 19.9 % 11.6-14.4 H (BEAKER) (test code = 412) PLATELET COUNT (BEAKER) (test code 55 K/CU MM 150-450 L = 756) MEAN PLATELET VOLUME (BEAKER) 9.3 fL 9.4-12.4 L (test code = 754) NUCLEATED RED BLOOD CELLS (BEAKER) 0 /100 WBC 0-0 (test code = 413) NEUTROPHILS RELATIVE PERCENT 67 % (BEAKER) (test code = 429) LYMPHOCYTES RELATIVE PERCENT 16 % (BEAKER) (test code = 430) MONOCYTES RELATIVE PERCENT 10 % (BEAKER) (test code = 431) EOSINOPHILS RELATIVE PERCENT 5 % (BEAKER) (test code = 432) BASOPHILS RELATIVE PERCENT 1 % (BEAKER) (test code = 437) NEUTROPHILS ABSOLUTE COUNT 2.23 K/ L 1.78-5.38 (BEAKER) (test code = 670) LYMPHOCYTES ABSOLUTE COUNT 0.54 K/ L 1.32-3.57 L (BEAKER) (test code = 414) MONOCYTES ABSOLUTE COUNT (BEAKER) 0.33 K/ L 0.30-0.82 (test code = 415) EOSINOPHILS ABSOLUTE COUNT 0.16 K/ L 0.04-0.54 (BEAKER) (test code = 416) BASOPHILS ABSOLUTE COUNT (BEAKER) 0.03 K/ L 0.01-0.08 (test code = 417) IMMATURE GRANULOCYTES-RELATIVE 1 % 0-1 PERCENT (BEAKER) (test code = 2801) Varicella zoster PCR, [id number] 12:21:21 Test Item Value Reference Interpretation Comments Range Source-Eric ABDOMEN dy Site (test code = 8338860) VZV NOT DETECTED REFERENCE RANGE : NOT DETECTED DNA,Qual. This test was d eveloped and its PCR (test analytical code = [employer] have 3733667) been determined by [email or web address].It has not been cleared or appr damian by FDA. This assay hasb een validated pursuant to the CLIA regulations and isused for clinical purpos es. ALLYN (test Performing Lab code = *[facility] ALLYN) Diagnostics [address] [id number] Divine Ji MD, PhD [facility]Asymptomatic ONLY)2022-02-17 20:18:48 Test Item Value Reference Range Interpretation Comments SARS-COV2/RT-PCR (test Negative Negative code = 00036-7) ALLYN (test code = ALLYN) Negative result for this test determines that SARS-CoV-2 RNA was not present in the specimen above the Limit of Detection (LOD). However, Negative results do not preclude SARS-CoV-2 infection and should not be used as the sole basis for treatment or patient management decisions. Negative results must be combined with clinical observations, patient history, and epidemiological information. A false negative result may occur if a specimen is improperly collected, transported, or handled. A false negative result should be considered if patient's recent exposures or clinical presentation indicate that COVID-19 (SARS-CoV-2) is likely and diagnostic tests for other causes of illness are negative. Re-testing should be considered in cases of suspected false negatives. The limit of detection for this assay is 100 copies/mL. This SARS-CoV-2 test is a real-time RT_PCR test intended for the qualitative detection of nucleic acid from SARS-CoV-2 in a nasopharyngeal swab specimen collected from individuals suspected of COVID-19 by their healthcare provider. This test has not been Food and Drug Administration (FDA) cleared or approved. This is a modified version of an approved Emergency Use Authorization (EUA) and is in the process of review by the FDA. Once authorized by the FDA, the issued EUA will be effective until the declaration that circumstances exist justifying the authorization of the emergency use of in vitro diagnostic tests for detection and/or diagnosis of COVID-19 is terminated under Section 564(b)(2) of the Act or the EUA is revoked under Section 564(g) of the Act. Testing was performed using the [employer] SARS-CoV-2 assay. Fact Sheet for Healthcare Providers:https://www.tarah dudley/tex/RT SARS-CoV-2 HCP Fact Sheet 51-497320.pdf Fact Sheet for Healthcare Patients:https://www.rudolph albrechthansen/tex/RT SARS-CoV-2 Patient Fact Sheet EN 51-796174N1.pdf Lab Interpretation Normal (test code = 28395-1) [facility])2022-02-17 20:18:48 Test Item Value Reference Range Interpretation Comments SARS-COV2/RT-PCR (test code = Negative Negative 9154803) Negative result for this test determines that SARS-CoV-2 RNA was not present in the specimen above the Limit of Detection (LOD). However, Negative results do not preclude SARS-CoV-2 infection and should not be used as the sole basis for treatment or patient management decisions. Negative results must be combined with clinical observations, patient history, and epidemiological information. A false negative result may occur if a specimen is improperly collected, transported, or handled. A false negative result should be considered if patient's recent exposures or clinical presentation indicate that COVID-19 (SARS-CoV-2) is likely and diagnostic tests for other causes of illness are negative. Re-testing should be considered in cases of suspected false negatives.The limit of detection for this assay is 100 copies/mL.This SARS-CoV-2 test is a real-time RT_PCR test intended for the qualitative detection of nucleic acid from SARS-CoV-2 in a nasopharyngeal swab specimen collected from individuals suspected of COVID-19 by their healthcare provider.This test has not been Food and Drug Administration (FDA) cleared or approved. This is a modified version of an approved Emergency Use Authorization (EUA) and is in the process of review by the FDA. Once authorized by the FDA, the issued EUA will be effective until the declaration that circumstances exist justifying the authorization of the emergency use of in vitro diagnostic tests for detection and/or diagnosis of COVID-19 is terminated under Section 564(b)(2) of the Act or the EUA is revoked under Section 564(g) of the Act.Testing was performed using [employer] SARS-CoV-2 assay.Fact Sheet for Healthcare Providers:https://www.DocOnYou.Trapit/tex/RT SARS-CoV-2 HCP Fact Sheet 51- 762603.pdfFact Sheet for Healthcare Patients:https://www.DocOnYou.Trapit/tex/RT SARS-CoV-2 Patient Fact Sheet EN 51-496103R1.pdfPHOSPHATIDYLETHANOL, BLOOD 2022-02-16 14:08:41 Test Item Value Reference Range Interpretation Comments PHOSPHATIDYLETHANOL (PETH) See scanned (test code = 5258862) report See scanned reportBody fluid culture + gram [id number] 17:10:16 Test Item Value Reference Range Interpretation Comments Result (test code = 6463-4) No growth [facility] + [facility]AM [id number] 17:10:16 Test Item Value Reference Range Interpretation Comments CULTURE (BEAKER) (test code = 1095) No growth [id number] 09:41:17 Test Item Value Reference Range Interpretation Comments Case Report (test code Medical Cytology Report = 104) Case: [id number] Authorizing Provider: Milena Swartz MD Collected: 02/13/2022 08:24 AM Ordering Location: [facility] PERI[facility] Received: 02/13/2022 09:40 AM SERVICES Pathologist: Jam Villarreal MD Specimen: Peritoneal Fluid ADDENDUM (test code = x8vlgTPhUTSnvBI8UfCaPCZ 3381) yr7wun3YoxQPfvGNwOPyhdM DyjzYxpi09qEY5dR24FM8eH NCmTeZ9CTZiqnX2Jie5XUXx NQYmyYVlE196k1ujq5lxzoS hgKO4hVewSQAwejjiNwK0FL tiMIMcomdsJXt1QLgqYSQie FO3DCPglXXcF8XtZARiGC4n dhj7CRT1ELedGLSyFcK8CHF kvZRwOCRopQkrRKvgr787FK U3DqFeSTXequLaaEcgbR8kC nMyMCBUaGlzIGFkZGVuZHVt ALdkWQIxQAXtjX9avTD9pFX hmOlwZLCpaRdya0fuIvNrJZ Y8wTS3QSHcmqRkSQ4OUo8wH SSpe2DiGI8wcAQapUswhPum aHQgZXBpdGhlbGlhbCBjZWx lua9roKYnlW== DIAGNOSIS (test code = z7akzKJqPKXvi1fmYJWicED 3220) uZzEwMzNcZnRuYmpcdWMxIH tccnRmMVxlcGljOTYwMlxhb bYuBVWiqOClG9OkhnivBMgo TR1fGH6dqTjjpVZmsUTcLQF vMyUsu3tdw090fEPzf8xgQU KAtdsmbYs9aFitP84bj5I6R krwD00abFZlNLS3VULrOUWe wLLwDNNjIAC0KSDzaLPlD1v kWDKuNE9grifkZHkfTFtfJU BumEG7OKLyaBLhU8CkXTXmW PsbSERlidm5FaPnJi5kqBAn eTcyMFxwYXJkXHBsYWluXGZ zMjAgUEVSSVRPTkVBTCBGTF SJUXLzE2kQA5YMAL9RCXMGY EAQTNbYKTNWC6UHYVqedPjb LLCzVSFtPA8WW2LRTDLBFMX HShPFAPdPV72IMsNQBEPhjh TwPJQuDPTiMBN7mESuAK2pq 290aGVsaWFsIGNlbGxzLCBj qLQcdiceSBeyEowjzQ3scZs pznEyjhUhj04nYLMfU2E4HK ArbeMdPK9bLIDhm24skYUtk 1FncZcnQMH2h7btpVVbRXUo dGUxODAwMFxhbnNpXGRlZmx fxusqFPEpVQU7ypEhCVJaGC rlDDJuNQykWn3pbNIrtCeaG eIgNEBdi6rdaiKGzvctmSr6 v8ccLVVlHgU7cIQcGOwuX7f wprItvLFsFRGbUNj3sC39GO LlrO0ydMTjWYbqelZrZqZ4N SssWEUmJlF2IMPkxLKoLJMl J7cePKQzUTwfHBZhGAlwlXT sZUJ0cTqia2Y9lAIyzNCpbV skXuNgNdLbCcOYt7OxFZk6r AcrA1KeXJYfZzF7pSVySQCj MKsfLFKiSBShxsX1tQ55WHs vpgO9iLAah8Xbw00qc115mR 3yxGRqXNJ6QMCrKBQjhIIfI CXaFCE5OPBzoWQoG0ooVGCk PK0nzmqoMOwuMCbbNUJouCR 2YWFrzYXeV5QkYGMwSUckZN Kjdcv1OlPwIp9euMZxlGslL Wrgs7rfv8opqUOvLwn5YBUg JxExUfjlWJkgx8Drg3qjYYM fmz2pDRW8xYWnvJuvr6F4xD ZfEIIezFPzRSPyIG9ybSZbU HZudA3khhbrWQNjMcJmcyic JLJmpKmktpXsXl3hoBrfTXR 3KCttU5esnN2rMzL5XIlyA6 oyxZ3vGWr0LTgvYTLqpIV4s sY7RDWxtZCaH1KmsD3mNIDl XU0muxd3s2cfGKF3OHqcVNA hJlG4ugX1AKXqdXQuGJQxzA yvLKubh266RIF8XlLfHLZxe 2CeU0HkmCveO61gvQynI15h FJTtxNztdG1rrTpchC7gFeZ oZqNvOGawrVlpUT8wJNXnD2 xoaNHoDWPtGRMlH3jwApXht T1kcRmvIWqossJgIAVpLnd7 DDUslTTrKXHoHhw9PAAkVQM tT04gpyuzJFV6gJ1ck3rne4 ZwZCpuXZP9BIVfs97hESedn pB3KTgfYd93WSnzQID0OHzs YXJ9fQ== CPT Code(s) (test code u6hikRSdODOreVU0GvDeJBF = 3357) ca6cub1LdlFJqbHGlOHwykG MfxlQzim65wBL5mL09WZ0hJ ECuAsQ7XFMykuO4Aqd8PPYh LCKzoWFjL503c2ldz0ggkgL uoJE1bNhlNSRzgfrnRyW2CX kpFITpegssTIh5OMktORPhq MB6UJCpwGHdW3KqZOFhDQ0e ria0EYV8UOuaARCbDlV3QUC raKMqFFKqqIzbPPvxh270UX X7QwClLBYcykEbtXyuuI7hE iOcCRG0VWBlNCfySNedWOZi cGFyfQ== CLINICAL DATA (test x0klvWBwCVOjzIP4BzXyENE code = 3355) nk3eeb0WskEVpdGFuUItkmP RnqkZwaq84sTX7cY91RW3gV MZhGiJ3YSPrkwO8Isx7RPLs YYDjbGTnC435i8nrm5otzxE dvUK0eIjxDPHoeetnFlX4LX crWYNondjzRKy0ASczPSImm UD3PRBouIWmC2UxPBLxQV9j zmh9ZOU5EDqpPZTwZpB3PDQ ksVBeMKHkwPpyFJylp078DX R5OrSwDBHolrFhuXrzhO2dX sDpRLQCa0JqnVSwERIOQ1Gr ZSW6V0xcCDVdw56eJB2nUTA oDBKndTJokI6moUBoWIHtY3 l0MBRqXXpMGDicpB3paHzxL 2WtBVzjip1kCRFjL9gnLZDh JXLrdZ0bSIMnxs1= SPECIMEN SOURCE (test f3yebRJzWJExjYP3LtDcVIE code = 3377) mk8dor1RphPTqcEIsEZajqS TuihHbtr91nTD6kO65ID0vS SJvJnN4TBNxoqL6Ybp6OUGs CPCrtSHyV981a9xmf2vcyrT imAB0rUkcUQYcptfaEzI0DT fkOBQckzubUZc8KFedOLPrt KJ7RCYxpAIhS5JzHUTvQL3o fuv3WXL4DEscSEAeFaX6ZSU xlWBpVRUtgHizOGufr215GB X7TrVkHIIbezViuOzpkM1xO sUpKZTTQQCCQA6BBBWTOAXE VUlEXHBhcn0= GROSS DESCRIPTION u4vwkGLiHTSneIWIWOPiX1g (test code = vpoTdKBXypXBfD4CrqoxnMQ [id number]) jcWA1fZX8jmAdvvJXslINjO N8ROAAgGtNiVNTnfDBlbfXv MrNnVHStiJLtoJY3JAEmRN8 igeotUXdkKDiyRARgkbQ7VI DbhWBlE5EzMUDmOS6uvghfF UT4ODwirJ4pmyORYthbDh9f dHRibHtcZjFcZmNoYXJzZXQ eUFQgdZuoSHIvQUm3nV1YVq ntOON4UKNCUfisUPLoLI0Aa 3pbIHAjgSGyUIG4XOswlDIs ZLZoGYAqDZp1INNzZTvifMQ nJV4qjJvwAuqzqVvtz1GmpZ BcXGlkIDUxMDAyIFxcZGIgI D3BKjKaZEA7EpAhQZPpBVe3 LRn2XP9GCrCjBHEnBVAaIlQ pBEMjSUt0ZHonHG9ZMBM5NK F0FIt5KoU3QFGeTeKkRLJxY iBcXGYgQXJpYWwgXFxmbCBc YD9ocCkpvUQhqhUEOlRISHN kaE2oQSAiBIGmgLgtHhqyDH NzGIawREPhY17ry7HDa0ZsQ F6DACg5rfDmancxhJ8oBKDq qxHwPPcsuFQdL9vcLjYrSEO WPHLhsVNaZBL4MYKbaOCoNR 4aOCRmVes5uPH0VVAxBIQap lYiMTMaZ4g2z2GakN6iNLAb DNYvFOnzBQSln4AiVHStNUV sDGXnGJRoUEvqDXEuc8MaDA tkvgQneSgwHDRlonYor3UyA TcuwkVmyTRuNcGkGATbTW0n HNI1YtU0KhIbEaRuHLrmvZv fkR6zNNOhD46nf7HXr4NuUC XdPDgru3horLaur2PmaFFzT QblSXEgrNHyIOhvjG5aTfSh d6gpbNr9QDrcavM7PRCuhx6 ZJqkbiS2yCmOjz4uadSh0LG VWRgfbpwB2y1oapYmrl7Wnv DJjWP7ILu8= MICROSCOPIC e7kqlCHrNMBtmFH2NjIbEHS DESCRIPTION (test code uf6rvl7ZyzLFyrZIlCXrzyU = 3371) MwhuYppc42bUM6sP41WI4uX SIvElF1MFWdowA5Uny2MAXs NIEywTNlS240x2lok6szaaM yaJL1uBsuUGDenyrrRgJ4AK voMRRfbunfXGw4QLsnYPGaa RB6QABuiGFcO8KjWBRkEY8e iun7CRW4KCrfQKClXmM0VAQ luYEqXSKjwMsqISqkk564ZN J3WnSnXCPwvpAtaFkioD0bN yBuXDJLPUZti5EjOUDrERvo YXJ9 STATEMENT OF ADEQUACY Satisfactory (test code = 2757) Gross assessment was [facility] performed at ([facility], code = 2777) Department of Pathology, [address] [place] [address], Technical component [facility] was performed at ([facility], code = 2778) Department of Pathology, [address] [place] [address], Professional component [facility] was performed at ([facility], code = 2779) Department of Pathology, [address] [place] [address], [facility] 09:41:17Medical Cytology Report Case: [id number] Authorizing Provider: Milena Swartz MD Collected: 02/13/2022 08:24 AM Ordering Location: [facility] Received: 02/13/2022 09:40 AM SERVICES Pathologist: Jam Villarreal MD Specimen: Peritoneal Fluid This addendum is to report the the following result:- MOC-31 does not highlight epithelial cells.Addendum electronically signed by Jam Villarreal MD on 02/15/2022 at 9:41 AMPERITONEAL FLUID (CYTOSPINS AND CELL BLOCK): - NEGATIVE FOR MALIGNANCY Reactive mesothelial cells, chronic inflammation and some acute inflammation present Signing Pathologist Direct Phone Line: [phone] signed by Jam Villarreal MD on 02/14/2022 at 12:17 [id number], [id number], HCV, EtOH decompensated cirrhosis (ascites, HE), umbilical hernia p/w abd pain.PERITONEAL FLUIDA. Peritoneal Fluid.Received 80 mls zay fluid; prepared 4 cytospins and cell block(A2) - the cell block was fixed in formalin at 1:02 pm on 02/13/2022 Performed. [facility], Department of Pathology, [address] [place] [address], [facility], Department of Pathology, [address] [place] [address], [facility], Department of Pathology, [address] [place] [address], ZPYLJ [id number] 20:00:56 Test Item Value Reference Range Interpretation Comments CULTURE (BEAKER) (test No growth in 5 days code = 1095) The specimen volume collected for this blood culture was below the optimum (10 mL per bottle or 20 mL total). Use of lower volumes may adversely affect recovery and/or detection times of some organisms.BLOOD [id number] 20:00:55 Test Item Value Reference Range Interpretation Comments CULTURE (BEAKER) (test No growth in 5 days code = 1095) Tissue [id number] 19:09:30 Test Item Value Reference Range Interpretation Comments Case Report (test code Surgical Pathology = 104) Report Case: [id number] Authorizing Provider: Milena Swartz MD Collected: 02/13/2022 08:26 AM Ordering Location: [facility] Received: 02/13/2022 09:18 AM SERVICES Pathologist: Annita Brower MD Specimen: Hernia, Hernia Sac DIAGNOSIS (test code = r0lfpQMjDABne9yoHJMoyOC 3220) uZzEwMzNcZnRuYmpcdWMxIH tccnRmMVxlcGljOTYwMlxhb gHyEWAhyTJuK5SukrbvLKod KT3gQC9zoYsnpTQbjVTiCAU mCjAej3sbm772yCWfw7cuLJ JVedzwjOk6hYnyK33cq8O4E vfsD77hnUEzIWG3RSNnNZCe iJDoMNByMVK6WDQaaFIpS6u yCDDoPN4xzhxvTYxrFJdrUO DvuMD1WUAhhKErJ1AwRWLtA DrzYOXyrke3QbCgVq1noWNi eTcyMFxwYXJkXHBsYWluXGZ fMgByV7tYApMOTkIiW84ZZJ MWSFFONJVzMYUKRZ1LKI1dF VfWRa0XF1VTAKBIBNewcTVm XGxpNzIwXGxpbjcyMCAtIEZ SIaPZKzJYF9VXHJIgYOdCX7 RPNBCFF8YMPZweAAaALHEyW ubtQjSYPXuBNM0ZX77AGCMU LGPTFTIWOVdRJESCR53XGJR MAG3WZVBdadIlZAeNRTejCK PJRnlBFGOGI7vkBZXdUPPNR 5zTJRgZAWphS3PTWCSIRNAE MWjcPEZDV5tGIqJFAoNwR4L WZqlwMWFngEVlABimRSG3p0 xydGYxXHNzdGUxODAwMFxhb nNpXGRlZmxhbmcxMDMzXGZ0 bmJqXHVjMVxkZWZmMHtcZm9 okJSafYksFnFoLMJgt6tody UPyzqgwPs9c2sqEEXdBqZ7k KBvLFsbG3ccraWrlYGxYKUd WTb2xT02NZDsyN5fbPBaNMp lrsMeLnN9KJlgBSXsTwL0XS MrnWOhEQJuS9skRXZnSYomX QHoNPcouDRaJLV4sPwwh0M4 bGVzaGVldHtcZjBcZnMyMiB Mp4EsEPr6wLfqQ3AxCEXaLs H7eDHxWGVzQBewJKNtQPQyr yV8mM57AAclnlW8vHMcp2Sa l42jh797iI0whYCdOBO7PWR bPDBsfQPzYLVzCNQ1GKDznH HoH7hzPMYtTZ1mtqfqQVngM OnqMMJcxDP0JSKzmAQdS5Gv CBJlDTedJWDvfjm6ZqTqUt1 zzKAtqVhfOAbkn7jqx2gjtJ NsVyh2QVPmKgCtXbzwFQkob 6Dfe0psGDTeze3sUEO4xLCx gOhyv8Z4rYCsZDOtuKJfMVC lTF4ilYVySRLhjI8euzoiHZ BnYnJkcmhlYWRccGdicmRyZ z6ekYwnSNA8VPlrE7trpR5m KnP9GUzyP0unoD1vTYy0IPx bSSAvgMI1ghX1QITjmMWdI3 YgbZ4kETOkEA6gudp9z5mrN KX6ZGttLSSiCnM4jyJ5HYQi jYWkGEVbrRwmPQeyb442HNG 4LcJfUAClx8FiZ7XdfIpbE8 2pnHehS25xFZJatYatuX6qe BdazO6cRbEfBfUbLUoixAxw LF8qSBNyH5wezSQjERQeLEX yN8nwLwUkzP6yeFbjKMmqgu LrRGRqJvk1LYUeyKBoZRNoM ap9PTPwFIZhN72yrmhbNPR5 lI2gs6far3MdHOjyJNX3AYN kv75uBIzpqmO0KJomUw03XU mdTEI9OSpyUHX8hS== CPT Code(s) (test code w7gozGDyTZQhmIW7CvTaQXR = 3357) sq2rcm9MvpRHluRLwULhqzH ByjkNglz41mUL8yA03GS4iC HDaLaI4VGPfalQ3Ako7VBWv SZBlbRUxO366n3kar2slmkR oxYU3fPliHUNjiokuNgA7ZB swIKHmavaoYLo7GIprXMEcs FT5ORYmaGMfI6FhTMFhNP4t juf4YCI1JUlfHZIyMeH0GXL ugKSmUGNtmCrfWWgko278GI T3YjGuBMKhqjAmlGsbwW7fC kDtOVE2KMAjZkvuVGY5 CLINICAL HISTORY (test z5bzsKVgOSGecUG9IePnPPQ code = 3356) rp9zax8NgqROtkWNlUBkcbS SnijPhxf05nGM9fJ37RK2vS BQiBgY7EFNbbvU7Ikn0ESEh JQUuuXIbE213o1jil6uniuW gpGV4oVidGLDrzgrmFuG4VU meXDLttssaFUy1SFytDXPph RI5VYDagNElE0SiDLOyFH5h lux4NNE0CQrgVXWpNcD9XET ilNBnEMHtvRuuATsqb829FR V6DdGhLAAqboPgtVhiyL9yZ nMyMCBVbWJpbGljYWwgYWJk h88unxTpSQmudk7yHKptFIU 9 GROSS DESCRIPTION e7jnwOHpHIXjtXHJTTBiL6e (test code = uawNwOMBavQWiP3WdqvfcGL [id number]) toJF2xJK8fjDgzfUGdtOEcJ O4IHTSzXnKlVSAzoDWxulUd OqJfBJCbqJYodWN6RVRcSU6 yaotiGRpuRPawVEPmkjM6QS VyhVMbU6WiQSTjQI4uipgvE NW0DOwnuP7pvaVYDhlpQl1r dHRibHtcZjFcZmNoYXJzZXQ dQCHwdOahNRLhOFu1oQ8KEj qiNKP5CXRLRqoxATCaBO4Oi 7ohQSBxcXCaFTC7FEvaaLTt WESvNNErLDb3XNPvRZjejHV kBM5rrVlxBcskeSmbc2YaqD BcXGlkIDUxMDAyIFxcZGIgI K2TRlRrAQU1HPx7SCDpQEh1 NIb7KD3VAbFuVJQeKUBaTyn 7ANMvSSu2CCorFT3NACX2MI N5Gic3WWF7PQElBwQrIVBnH iBcXGYgQXJpYWwgXFxmbCBc WE2lwNzcrLKujrXMOqPXUPF uaWEuXHBhciANClxlcGljTm VzdERvYzEgDQpcbHRycGFyX GxpbjBccmluMCANClxsdHJj lTacjrUnLFEoQ8YhkiNkIPG yHWXtTFhePbClWXWzb9y0oV D2aEWbcKU9iANupEhqVfJqA J8vhFPeMK6iJPqgOImgayLj p8ZbKA35hJWjhnShbvAyQhm oyj0tVZKbpRPcKWB0WxazyU InDnPlU02yeR2yskqfwlRvR QP5WA8oi3rardUlfSrreHHs KUO7K0wuKTLmpM7xGCApOCX 7dSWdDwUbGcKaD86mJXRVuE XyISNhPFPmtRgnNLBvv6ExC FjnZAEpWV5vUGpuZS98HMwi VH3hLNQkSYDxreZxHBpdsOM qn3ZlbMEfSR4nre1bgsDkri GssBN2fUT1DZczVNUeVFCtq JXrup5xITSfRGJoyD5rLVE0 FA4dyovkmy5yOIIoHGNgaPb tuZ6bXVPcEFDux7rpKPisZS WkMn56OZcjKc3aXGhwKQ48A HYzDTXvI4W2tRWvPQHeerUl t35vf3RwqAukve7bMINdUdx pna8sHV5lkwIwc3PqCRUxr2 U6EE4oMDUzPJAnuHYqNIikQ BQzivtlbJf2EERxF0Ukn55o ZCBhbmQgYSByZXByZXNlbnR qsNg4HTOuYLQ6jO3dKC4wUH CeKORhiuOxdTN4qDVzMLQyU IDryRrxylytRskqlm5aLJ1k qhPey1FrNAHzl5N3MBLuumD dxAVptJJ9AXDheG3zVHLhQA ugxjQsZRuiboArR5tcrIMnH PNCgcH9gibkCUfWAOOXWYBa IYFAHSlknX9BPQIvVBuaBIF rsTTAVXH0WT8vSVcpmOVcqs suVRSxI9HyR1HxtiMmfSWyZ RUgmeOpt2eqZVE3ILLbcKSe zFFhExBcDnvzUWE6LGsjx1c uHHD2SRJhiJEjcFSmYRowSp CnIzbuSSXzV9AnK6CctmO0V Qp9 MICROSCOPIC q1jseWMhNHAtfBE1EtQkUHR DESCRIPTION (test code gf6wuv0YugTNcdDBeQBmbeU = 3371) JloiKzzb45gBU2hJ65IQ6xY TIhMqQ8WGRzwdR5Kiv1GZRl HDMxaOEjJ156c4uwb2hmnlF tfUX9zPbsGNInzrugGcS0FE laRNCyebtiHCe8HEcjHVYrf LW7XBWrdUAmH8QxVIJyHG3h piq0UUW7VXxuSYVsGtV8FOX kbXQpOMDxcIwtJWuzi501YA F5FsTfRBNloeLqdBwwtC7iX tYuKNKJSRYzv5DuEEJyRMgw YXJ9 Gross assessment was [facility] performed at ([facility], code = 2777) Department of Pathology, [address] [place] [address]67, Technical component [facility] was performed at ([facility], code = 2778) Department of Pathology, [address] [place] [address] 78711, Professional component [facility] was performed at ([facility], code = 2779) Department of Pathology, [address] [place] [address], [facility] HospitalTISS[facility] [id number] 19:09:30Surgical Pathology Report Case: [id number] Authorizing Provider: Milena Swartz MD Collected: 02/13/2022 08:26 AM Ordering Location: [facility] Received: 02/13/2022 09:18 AM SERVICES Pathologist: Annita Brower MD Specimen: Hernia, Hernia Sac SKIN AND SOFT TISSUE, ABDOMEN, HERNIORRHAPHY- FIBROVASCULAR TISSUE FOCALLY LINED BY BENIGN MESOTHELIAL CELLS, CONSISTENT WITH HERNIA SAC- SKIN WITH SUPERFICIAL EROSION AND SCAR Signing Pathologist Direct Phone Line: [phone] signed by Annita Brower MD on 02/14/2022 at 7:09 [id number] abdominal herniaA. Hernia.Received fresh labeled with the patient's name, medical record number and "hernia" is a 5.9 x 3.2 cm unoriented gordon skin ellipse excised to a depth of 1.4 cm. The epidermis displays a 1.3 x 0.8 x 0.2 cm centrally located maroon crust that is 1.1 cm from the closest margin. Underlining the skin is a 3.8 x 2.3 x 1.5 cmsaccular portion of pink-red fibromembranous tissue. Specimen is serially sectioned and a client service representative section of the crest with underlying fibromembranous tissue is submitted in A1.BREE Malone, KAREN (ASCP)cmPerformed. [facility], Department of Pathology, [address] [place] [address]80, [facility], [facility] of [facility], [address] [place] [address], [facility], Department of Pathology, [address] [place] [address] 11952, FSJJK [id number] 15:01:18 Test Item Value Reference Range Interpretation Comments CULTURE (BEAKER) (test No growth in 5 days code = 1095) BLOOD [id number] 15:01:18 Test Item Value Reference Range Interpretation Comments CULTURE (BEAKER) (test No growth in 5 days code = 1095) PROTHROMBIN TIME/[id number] 12:19:24 Test Item Value Reference Range Interpretation Comments PROTIME (BEAKER) 18.5 seconds 11.9-14.2 H (test code = 759) INR (BEAKER) (test 1.57 See_Comment [Automat ed message] code = 370) The system [employer] generated this result transmitted ref erence range: <=5.90. The reference range was not used to int erpret this result as normal/abnormal . RECOMMENDED COUMADIN/WARFARIN INR THERAPY RANGESSTANDARD DOSE: 2.0 - 3.0 Includes: PROPHYLAXIS for venous thrombosis, systemic embolization; TREATMENT for venous thrombosis and/or pulmonary embolus.HIGH RISK: Target INR is 2.5-3.5 for patients with mechanical heart valves.BASIC METABOLIC [id number] 07:20:14 Test Item Value Reference Range Interpretation Comments SODIUM (BEAKER) (test 132 meq/L 136-145 L code = 381) POTASSIUM (BEAKER) 4.0 meq/L 3.5-5.1 (test code = 379) CHLORIDE (BEAKER) 102 meq/L 98-107 (test code = 382) CO2 (BEAKER) (test 25 meq/L 22-29 code = 355) BLOOD UREA NITROGEN 14 mg/dL 7-21 (BEAKER) (test code = 354) CREATININE (BEAKER) 0.88 mg/dL 0.57-1.25 (test code = 358) GLUCOSE RANDOM 102 mg/dL 70-105 (BEAKER) (test code = 652) CALCIUM (BEAKER) 7.8 mg/dL 8.4-10.2 L (test code = 697) EGFR (BEAKER) (test INSUFFIC IENT CLINICAL code = 1092) DATA TO CALCULA TE ESTIMATED GFR. Automatic Drill Operator ID - LIZBETH WHEPATIC FUNCTION [id number] 07:15:22 Test Item Value Reference Range Interpretation Comments TOTAL PROTEIN (BEAKER) (test code = 5.8 gm/dL 6.0-8.3 L 770) ALBUMIN (BEAKER) (test code = 1145) 2.8 g/dL 3.5-5.0 L BILIRUBIN TOTAL (BEAKER) (test code 1.6 mg/dL 0.2-1.2 H = 377) BILIRUBIN DIRECT (BEAKER) (test 0.8 mg/dL 0.1-0.5 H code = 706) ALKALINE PHOSPHATASE (BEAKER) (test 57 U/L 40-150 code = 346) AST (SGOT) (BEAKER) (test code = 21 U/L 5-34 353) ALT (SGPT) (BEAKER) (test code = 8 U/L 6-55 347) Automatic Drill Operator ID - LIZBETH WCBC W/PLT COUNT & AUTO [id number] 05:36:43 Test Item Value Reference Range Interpretation Comments WHITE BLOOD CELL COUNT (BEAKER) 5.2 K/ L 3.5-10.5 (test code = 775) RED BLOOD CELL COUNT (BEAKER) 2.89 M/ L 4.63-6.08 L (test code = 761) HEMOGLOBIN (BEAKER) (test code = 8.8 GM/DL 13.7-17.5 L 410) HEMATOCRIT (BEAKER) (test code = 26.6 % 40.1-51.0 L 411) MEAN CORPUSCULAR VOLUME (BEAKER) 92.0 fL 79.0-92.2 (test code = 753) MEAN CORPUSCULAR HEMOGLOBIN 30.4 pg 25.7-32.2 (BEAKER) (test code = 751) MEAN CORPUSCULAR HEMOGLOBIN CONC 33.1 GM/DL 32.3-36.5 (BEAKER) (test code = 752) RED CELL DISTRIBUTION WIDTH 17.3 % 11.6-14.4 H (BEAKER) (test code = 412) PLATELET COUNT (BEAKER) (test code 63 K/CU MM 150-450 L = 756) MEAN PLATELET VOLUME (BEAKER) 9.1 fL 9.4-12.4 L (test code = 754) NUCLEATED RED BLOOD CELLS (BEAKER) 0 /100 WBC 0-0 (test code = 413) NEUTROPHILS RELATIVE PERCENT 71 % (BEAKER) (test code = 429) LYMPHOCYTES RELATIVE PERCENT 13 % (BEAKER) (test code = 430) MONOCYTES RELATIVE PERCENT 8 % (BEAKER) (test code = 431) EOSINOPHILS RELATIVE PERCENT 7 % (BEAKER) (test code = 432) BASOPHILS RELATIVE PERCENT 1 % (BEAKER) (test code = 437) NEUTROPHILS ABSOLUTE COUNT 3.68 K/ L 1.78-5.38 (BEAKER) (test code = 670) LYMPHOCYTES ABSOLUTE COUNT 0.69 K/ L 1.32-3.57 L (BEAKER) (test code = 414) MONOCYTES ABSOLUTE COUNT (BEAKER) 0.41 K/ L 0.30-0.82 (test code = 415) EOSINOPHILS ABSOLUTE COUNT 0.35 K/ L 0.04-0.54 (BEAKER) (test code = 416) BASOPHILS ABSOLUTE COUNT (BEAKER) 0.04 K/ L 0.01-0.08 (test code = 417) IMMATURE GRANULOCYTES-RELATIVE 1 % 0-1 PERCENT (BEAKER) (test code = 2801) MISCELLANEOUS LAB [id number] 15:43:46 Test Item Value Reference Range Interpretation Comments SCAN RESULT (test code = See scanned report [id number]) See scanned [id number] 11:00:24 Test Item Value Reference Range Interpretation Comments Cytology (test code = See Separate Report 2629) [facility] HospitalCYTOLOGY [id number] 11:00:24 Test Item Value Reference Range Interpretation Comments CYTOLOGY RESULT POINTER See Separate Report (BEAKER) (test code = 2629) HEPATITIS B SURFACE [id number] 07:12:32 Test Item Value Reference Range Interpretation Comments HEPATITIS B SURFACE ANTIBODY < mIU/mL <8.0 (BEAKER) (test code = 647) Automatic Drill Operator ID - PIAYA LBASIC METABOLIC [id number] 06:43:07 Test Item Value Reference Range Interpretation Comments SODIUM (BEAKER) (test 136 meq/L 136-145 code = 381) POTASSIUM (BEAKER) 3.9 meq/L 3.5-5.1 (test code = 379) CHLORIDE (BEAKER) 103 meq/L 98-107 (test code = 382) CO2 (BEAKER) (test 28 meq/L 22-29 code = 355) BLOOD UREA NITROGEN 15 mg/dL 7-21 (BEAKER) (test code = 354) CREATININE (BEAKER) 0.92 mg/dL 0.57-1.25 (test code = 358) GLUCOSE RANDOM 99 mg/dL 70-105 (BEAKER) (test code = 652) CALCIUM (BEAKER) 8.1 mg/dL 8.4-10.2 L (test code = 697) EGFR (BEAKER) (test INSUFFIC IENT CLINICAL code = 1092) DATA TO CALCULA TE ESTIMATED GFR. Automatic Drill Operator ID - RIGOBERTO LHEPATIC FUNCTION [id number] 06:36:45 Test Item Value Reference Range Interpretation Comments TOTAL PROTEIN (BEAKER) (test code = 6.3 gm/dL 6.0-8.3 770) ALBUMIN (BEAKER) (test code = 1145) 3.0 g/dL 3.5-5.0 L BILIRUBIN TOTAL (BEAKER) (test code 1.4 mg/dL 0.2-1.2 H = 377) BILIRUBIN DIRECT (BEAKER) (test 0.7 mg/dL 0.1-0.5 H code = 706) ALKALINE PHOSPHATASE (BEAKER) (test 66 U/L 40-150 code = 346) AST (SGOT) (BEAKER) (test code = 24 U/L 5-34 353) ALT (SGPT) (BEAKER) (test code = 11 U/L 6-55 347) Automatic Drill Operator ID - RIGOBERTO [id number] 06:36:44 Test Item Value Reference Range Interpretation Comments MAGNESIUM (BEAKER) (test code = 2.0 mg/dL 1.6-2.6 627) Automatic Drill Operator ID - RIGOBERTO LPROTHROMBIN [id number] 06:30:02 Test Item Value Reference Range Interpretation Comments PROTIME (BEAKER) 19.0 seconds 11.9-14.2 H (test code = 759) INR (BEAKER) (test 1.62 See_Comment [Automat ed message] code = 370) The system [employer] generated this result transmitted ref erence range: <=5.90. The reference range was not used to int erpret this result as normal/abnormal . RECOMMENDED COUMADIN/WARFARIN INR THERAPY RANGESSTANDARD DOSE: 2.0 - 3.0 Includes: PROPHYLAXIS for venous thrombosis, systemic embolization; TREATMENT for venous thrombosis and/or pulmonary embolus.HIGH RISK: Target INR is 2.5-3.5 for patients with mechanical heart valves.[id number] 04:53:41 Test Item Value Reference Range Interpretation Comments PARTIAL THROMBOPLASTIN TIME 43.5 seconds 22.5-36.0 H (BEAKER) (test code = 760) PROTHROMBIN TIME/[id number] 04:52:58 Test Item Value Reference Range Interpretation Comments PROTIME (BEAKER) 18.7 seconds 11.9-14.2 H (test code = 759) INR (BEAKER) (test 1.59 See_Comment [Automat ed message] code = 370) The system [employer] generated this result transmitted ref erence range: <=5.90. The reference range was not used to int erpret this result as normal/abnormal . RECOMMENDED COUMADIN/WARFARIN INR THERAPY RANGESSTANDARD DOSE: 2.0 - 3.0 Includes: PROPHYLAXIS for venous thrombosis, systemic embolization; TREATMENT for venous thrombosis and/or pulmonary embolus.HIGH RISK: Target INR is 2.5-3.5 for patients with mechanical heart valves.CBC W/PLT COUNT & AUTO [id number] 04:09:00 Test Item Value Reference Range Interpretation Comments WHITE BLOOD CELL COUNT (BEAKER) 4.2 K/ L 3.5-10.5 (test code = 775) RED BLOOD CELL COUNT (BEAKER) 2.89 M/ L 4.63-6.08 L (test code = 761) HEMOGLOBIN (BEAKER) (test code = 8.9 GM/DL 13.7-17.5 L 410) HEMATOCRIT (BEAKER) (test code = 26.7 % 40.1-51.0 L 411) MEAN CORPUSCULAR VOLUME (BEAKER) 92.4 fL 79.0-92.2 H (test code = 753) MEAN CORPUSCULAR HEMOGLOBIN 30.8 pg 25.7-32.2 (BEAKER) (test code = 751) MEAN CORPUSCULAR HEMOGLOBIN CONC 33.3 GM/DL 32.3-36.5 (BEAKER) (test code = 752) RED CELL DISTRIBUTION WIDTH 17.1 % 11.6-14.4 H (BEAKER) (test code = 412) PLATELET COUNT (BEAKER) (test code 55 K/CU MM 150-450 L = 756) MEAN PLATELET VOLUME (BEAKER) 8.8 fL 9.4-12.4 L (test code = 754) NUCLEATED RED BLOOD CELLS (BEAKER) 0 /100 WBC 0-0 (test code = 413) NEUTROPHILS RELATIVE PERCENT 69 % (BEAKER) (test code = 429) LYMPHOCYTES RELATIVE PERCENT 15 % (BEAKER) (test code = 430) MONOCYTES RELATIVE PERCENT 8 % (BEAKER) (test code = 431) EOSINOPHILS RELATIVE PERCENT 7 % (BEAKER) (test code = 432) BASOPHILS RELATIVE PERCENT 1 % (BEAKER) (test code = 437) NEUTROPHILS ABSOLUTE COUNT 2.88 K/ L 1.78-5.38 (BEAKER) (test code = 670) LYMPHOCYTES ABSOLUTE COUNT 0.61 K/ L 1.32-3.57 L (BEAKER) (test code = 414) MONOCYTES ABSOLUTE COUNT (BEAKER) 0.34 K/ L 0.30-0.82 (test code = 415) EOSINOPHILS ABSOLUTE COUNT 0.28 K/ L 0.04-0.54 (BEAKER) (test code = 416) BASOPHILS ABSOLUTE COUNT (BEAKER) 0.03 K/ L 0.01-0.08 (test code = 417) IMMATURE GRANULOCYTES-RELATIVE 1 % 0-1 PERCENT (BEAKER) (test code = 2801) BODY FLUID CULTURE + GRAM [id number] 16:28:40 Test Item Value Reference Range Interpretation Comments CULTURE (BEAKER) (test code = 1095) No growth BASIC METABOLIC [id number] 06:42:07 Test Item Value Reference Range Interpretation Comments SODIUM (BEAKER) (test 131 meq/L 136-145 L code = 381) POTASSIUM (BEAKER) 3.3 meq/L 3.5-5.1 L (test code = 379) CHLORIDE (BEAKER) 101 meq/L 98-107 (test code = 382) CO2 (BEAKER) (test 23 meq/L 22-29 code = 355) BLOOD UREA NITROGEN 21 mg/dL 7-21 (BEAKER) (test code = 354) CREATININE (BEAKER) 1.01 mg/dL 0.57-1.25 (test code = 358) GLUCOSE RANDOM 116 mg/dL 70-105 H (BEAKER) (test code = 652) CALCIUM (BEAKER) 7.6 mg/dL 8.4-10.2 L (test code = 697) EGFR (BEAKER) (test INSUFFIC IENT CLINICAL code = 1092) DATA TO CALCULA TE ESTIMATED GFR. Automatic Drill Operator ID - PIAYA [id number] 04:33:17 Test Item Value Reference Range Interpretation Comments MAGNESIUM (BEAKER) (test code = 1.7 mg/dL 1.6-2.6 627) Automatic Drill Operator ID - RIGOBERTO LHEPATIC FUNCTION [id number] 04:33:17 Test Item Value Reference Range Interpretation Comments TOTAL PROTEIN (BEAKER) (test code = 6.0 gm/dL 6.0-8.3 770) ALBUMIN (BEAKER) (test code = 1145) 2.4 g/dL 3.5-5.0 L BILIRUBIN TOTAL (BEAKER) (test code 0.9 mg/dL 0.2-1.2 = 377) BILIRUBIN DIRECT (BEAKER) (test 0.5 mg/dL 0.1-0.5 code = 706) ALKALINE PHOSPHATASE (BEAKER) (test 88 U/L 40-150 code = 346) AST (SGOT) (BEAKER) (test code = 26 U/L 5-34 353) ALT (SGPT) (BEAKER) (test code = 13 U/L 6-55 347) Automatic Drill Operator ID - RIGOBERTO LPROTHROMBIN [id number] 04:11:48 Test Item Value Reference Range Interpretation Comments PROTIME (BEAKER) 18.3 seconds 11.9-14.2 H (test code = 759) INR (BEAKER) (test 1.55 See_Comment [Automat ed message] code = 370) The system [employer] generated this result transmitted ref erence range: <=5.90. The reference range was not used to int erpret this result as normal/abnormal . RECOMMENDED COUMADIN/WARFARIN INR THERAPY RANGESSTANDARD DOSE: 2.0 - 3.0 Includes: PROPHYLAXIS for venous thrombosis, systemic embolization; TREATMENT for venous thrombosis and/or pulmonary embolus.HIGH RISK: Target INR is 2.5-3.5 for patients with mechanical heart valves.CBC W/PLT COUNT & AUTO [id number] 03:48:24 Test Item Value Reference Range Interpretation Comments WHITE BLOOD CELL COUNT (BEAKER) 5.3 K/ L 3.5-10.5 (test code = 775) RED BLOOD CELL COUNT (BEAKER) 2.77 M/ L 4.63-6.08 L (test code = 761) HEMOGLOBIN (BEAKER) (test code = 8.5 GM/DL 13.7-17.5 L 410) HEMATOCRIT (BEAKER) (test code = 25.3 % 40.1-51.0 L 411) MEAN CORPUSCULAR VOLUME (BEAKER) 91.3 fL 79.0-92.2 (test code = 753) MEAN CORPUSCULAR HEMOGLOBIN 30.7 pg 25.7-32.2 (BEAKER) (test code = 751) MEAN CORPUSCULAR HEMOGLOBIN CONC 33.6 GM/DL 32.3-36.5 (BEAKER) (test code = 752) RED CELL DISTRIBUTION WIDTH 17.0 % 11.6-14.4 H (BEAKER) (test code = 412) PLATELET COUNT (BEAKER) (test code 59 K/CU MM 150-450 L = 756) MEAN PLATELET VOLUME (BEAKER) 8.7 fL 9.4-12.4 L (test code = 754) NUCLEATED RED BLOOD CELLS (BEAKER) 0 /100 WBC 0-0 (test code = 413) NEUTROPHILS RELATIVE PERCENT 75 % (BEAKER) (test code = 429) LYMPHOCYTES RELATIVE PERCENT 12 % (BEAKER) (test code = 430) MONOCYTES RELATIVE PERCENT 7 % (BEAKER) (test code = 431) EOSINOPHILS RELATIVE PERCENT 5 % (BEAKER) (test code = 432) BASOPHILS RELATIVE PERCENT 0 % (BEAKER) (test code = 437) NEUTROPHILS ABSOLUTE COUNT 3.96 K/ L 1.78-5.38 (BEAKER) (test code = 670) LYMPHOCYTES ABSOLUTE COUNT 0.61 K/ L 1.32-3.57 L (BEAKER) (test code = 414) MONOCYTES ABSOLUTE COUNT (BEAKER) 0.38 K/ L 0.30-0.82 (test code = 415) EOSINOPHILS ABSOLUTE COUNT 0.28 K/ L 0.04-0.54 (BEAKER) (test code = 416) BASOPHILS ABSOLUTE COUNT (BEAKER) 0.02 K/ L 0.01-0.08 (test code = 417) IMMATURE GRANULOCYTES-RELATIVE 1 % 0-1 PERCENT (BEAKER) (test code = 2801) BASIC METABOLIC [id number] 05:46:16 Test Item Value Reference Range Interpretation Comments SODIUM (BEAKER) (test 133 meq/L 136-145 L code = 381) POTASSIUM (BEAKER) 3.8 meq/L 3.5-5.1 (test code = 379) CHLORIDE (BEAKER) 104 meq/L 98-107 (test code = 382) CO2 (BEAKER) (test 24 meq/L 22-29 code = 355) BLOOD UREA NITROGEN 24 mg/dL 7-21 H (BEAKER) (test code = 354) CREATININE (BEAKER) 0.95 mg/dL 0.57-1.25 (test code = 358) GLUCOSE RANDOM 98 mg/dL 70-105 (BEAKER) (test code = 652) CALCIUM (BEAKER) 7.7 mg/dL 8.4-10.2 L (test code = 697) EGFR (BEAKER) (test INSUFFIC IENT CLINICAL code = 1092) DATA TO CALCULA TE ESTIMATED GFR. Automatic Drill Operator ID - BELLA [id number] 05:44:21 Test Item Value Reference Range Interpretation Comments MAGNESIUM (BEAKER) (test code = 1.9 mg/dL 1.6-2.6 627) Automatic Drill Operator ID - BELLA GHEPATIC FUNCTION [id number] 05:44:21 Test Item Value Reference Range Interpretation Comments TOTAL PROTEIN (BEAKER) (test code = 6.0 gm/dL 6.0-8.3 770) ALBUMIN (BEAKER) (test code = 1145) 2.4 g/dL 3.5-5.0 L BILIRUBIN TOTAL (BEAKER) (test code 1.2 mg/dL 0.2-1.2 = 377) BILIRUBIN DIRECT (BEAKER) (test 0.6 mg/dL 0.1-0.5 H code = 706) ALKALINE PHOSPHATASE (BEAKER) (test 76 U/L 40-150 code = 346) AST (SGOT) (BEAKER) (test code = 30 U/L 5-34 353) ALT (SGPT) (BEAKER) (test code = 16 U/L 6-55 347) Automatic Drill Operator ID - BELLA GPROTHROMBIN TIME/[id number] 05:30:37 Test Item Value Reference Range Interpretation Comments PROTIME (BEAKER) 17.2 seconds 11.9-14.2 H (test code = 759) INR (BEAKER) (test 1.43 See_Comment [Automat ed message] code = 370) The system [employer] generated this result transmitted ref erence range: <=5.90. The reference range was not used to int erpret this result as normal/abnormal . RECOMMENDED COUMADIN/WARFARIN INR THERAPY RANGESSTANDARD DOSE: 2.0 - 3.0 Includes: PROPHYLAXIS for venous thrombosis, systemic embolization; TREATMENT for venous thrombosis and/or pulmonary embolus.HIGH RISK: Target INR is 2.5-3.5 for patients with mechanical heart valves.CBC W/PLT COUNT & AUTO [id number] 05:20:54 Test Item Value Reference Range Interpretation Comments WHITE BLOOD CELL COUNT (BEAKER) 5.8 K/ L 3.5-10.5 (test code = 775) RED BLOOD CELL COUNT (BEAKER) 2.77 M/ L 4.63-6.08 L (test code = 761) HEMOGLOBIN (BEAKER) (test code = 8.6 GM/DL 13.7-17.5 L 410) HEMATOCRIT (BEAKER) (test code = 25.5 % 40.1-51.0 L 411) MEAN CORPUSCULAR VOLUME (BEAKER) 92.1 fL 79.0-92.2 (test code = 753) MEAN CORPUSCULAR HEMOGLOBIN 31.0 pg 25.7-32.2 (BEAKER) (test code = 751) MEAN CORPUSCULAR HEMOGLOBIN CONC 33.7 GM/DL 32.3-36.5 (BEAKER) (test code = 752) RED CELL DISTRIBUTION WIDTH 17.2 % 11.6-14.4 H (BEAKER) (test code = 412) PLATELET COUNT (BEAKER) (test code 56 K/CU MM 150-450 L = 756) MEAN PLATELET VOLUME (BEAKER) 9.0 fL 9.4-12.4 L (test code = 754) NUCLEATED RED BLOOD CELLS (BEAKER) 0 /100 WBC 0-0 (test code = 413) NEUTROPHILS RELATIVE PERCENT 73 % (BEAKER) (test code = 429) LYMPHOCYTES RELATIVE PERCENT 12 % (BEAKER) (test code = 430) MONOCYTES RELATIVE PERCENT 7 % (BEAKER) (test code = 431) EOSINOPHILS RELATIVE PERCENT 6 % (BEAKER) (test code = 432) BASOPHILS RELATIVE PERCENT 1 % (BEAKER) (test code = 437) NEUTROPHILS ABSOLUTE COUNT 4.27 K/ L 1.78-5.38 (BEAKER) (test code = 670) LYMPHOCYTES ABSOLUTE COUNT 0.70 K/ L 1.32-3.57 L (BEAKER) (test code = 414) MONOCYTES ABSOLUTE COUNT (BEAKER) 0.41 K/ L 0.30-0.82 (test code = 415) EOSINOPHILS ABSOLUTE COUNT 0.34 K/ L 0.04-0.54 (BEAKER) (test code = 416) BASOPHILS ABSOLUTE COUNT (BEAKER) 0.05 K/ L 0.01-0.08 (test code = 417) IMMATURE GRANULOCYTES-RELATIVE 1 % 0-1 PERCENT (BEAKER) (test code = 2801) U/S, [id number] 18:04:00NAGA HURT MDLabs to be ordered:->Body Fluid Culture (w/Gram Stain, C\\T\\S)Labs to beordered:- >Glucose+LDH+ProteinLabs to be ordered:->Cell CountReason for exam:- >ABNORMAL LABPIONEERS [facility]Name: [facility] : 1955 Sex: MFINAL REPORT Ultrasound guided paracentesis Clinical History: Ascites. Sedation:None. Cable Assembler And Swager: Allison Willoughby PA-C Supervising Physician: Carl Mora MD Thread Pulling Machine Attendant: None. Estimated Blood Loss: < 1 mL. Specimen: 600 mL of clear yellow fluid, samples sent to laboratory. Technique: Informed consent was obtained. The risks of pain, bleeding, infection, bowel perforation, injury to adjacent structures, and adverse medication reactions were discussed with the patient. After informed consent was obtained, the patient's abdomen was scanned. The right lower quadrant of theabdomen was selected for paracentesis. After the largest fluid pocket area was marked, and the anterior abdominal wall was evaluated with color Doppler to exclude presence of blood vessels traversing the area, the skin was prepped and draped in the usual sterile manner. After local anesthesia was achieved with lidocaine, a 5 Albanian one-step catheter was advanced into the peritoneal cavity under ultrasound guidance. After completion of drainage, the catheter was removed. There was no evidence of complication. Impression:Successful ultrasound guided paracentesis. Signed: Carl Moraeport Verified Date/Time: 02/10/2022 18:04:01 Reading Location: [address] Ultrasound Reading Room Lactate dehydrogenase (LDH), body [id number] 15:49:23 Test Item Value Reference Range Interpretation Comments LDH, Fluid (test 78 U/L code = 26791-0) ALLYN (test code = Absence of reference ALLYN) range indicates that normals have not been defined.Assay performance has not been validated for this type of specimen. Automatic Drill Operator ID - [id number] [facility] HospitalLACTATE DEHYDROGENASE (LDH), BODY [id number] 15:49:23 Test Item Value Reference Range Interpretation Comments LACTATE DEHYDROGENASE FLUID (BEAKER) 78 U/L (test code = 634) Absence of reference range indicates that normals have not been defined.Assay performance has not been validated for this type of specimen.Automatic Drill Operator ID - [id number], body [id number] 15:47:39 Test Item Value Reference Range Interpretation Comments Protein, Fluid (test 1.7 g/dL code = 2881-1) ALLYN (test code = Absence of reference ALLYN) range indicates that normals have not been defined.Assay performance has not been validated for this type of specimen. Automatic Drill Operator ID - [id number] [facility] HospitalPROTEIN, BODY [id number] 15:47:39 Test Item Value Reference Range Interpretation Comments PROTEIN FLUID (BEAKER) (test code = 1.7 g/dL 579) Absence of reference range indicates that normals have not been defined.Assay performance has not been validated for this type of specimen.Automatic Drill Operator ID - [id number], body [id number] 15:45:42 Test Item Value Reference Range Interpretation Comments Glucose, Body Fluid 120 mg/dL (test code = 2344-0) ALLYN (test code = Absence of reference ALLYN) range indicates that normals have not been defined.Assay performance has not been validated for this type of specimen. Automatic Drill Operator ID - [id number] [facility] HospitalGLUCOSE, BODY [id number] 15:45:42 Test Item Value Reference Range Interpretation Comments GLUCOSE, BODY FLUID (BEAKER) (test 120 mg/dL code = 1528) Absence of reference range indicates that normals have not been defined.Assay performance has not been validated for this type of specimen.Automatic Drill Operator ID - [id number] fluid cell count with [id number] 14:03:37 Test Item Value Reference Range Interpretation Comments Appearance (test code = Clear Clear 9335-1) Color (test code = Yellow Colorless, Straw A 6824-7) RBCs (test code = 68 See_Comment H [Automate d message] 64360-5) The system [employer] generated this result transmit britta reference range : <=1 /cu mm. The reference range was not used to interpret this result as normal/abnormal . Adjusted WBC Count 16 See_Comment H [Automat ed message] (test code = 67014-0) The sy stem which generated this result transmit britta reference range : <=5 /cu mm. The reference range was not used to interpret this result as normal/abnormal . Lining Cells (test code 0 See_Comment [Au tomated message] = 40805-0) The system [employer] generated this result transmit britta reference range : <=1 /cu mm. The reference range was not used to interpret this result as normal/abnormal . % Segs (test code = 13 % 46359-5) % Lymphs (test code = 13 % 13223-4) % Monos (test code = 74 % 49649-6) % Eos (test code = 0 % 00642-4) % Baso (test code = 0 % 33028-5) Container Body Fluid EDTA Tube (test code = 2873) Lab Interpretation Abnormal (test code = 03752-3) [facility] HospitalBODY FLUID CELL COUNT WITH [id number] 14:03:37 Test Item Value Reference Range Interpretation Comments APPEARANCE FLUID Clear Clear (BEAKER) (test code = 510) COLOR FLUID (BEAKER) Yellow Colorless, Straw A (test code = 511) RBC FLUID (BEAKER) 68 /cu mm See_Comment H [Automat ed message] (test code = 513) The system which generated this result transmitted ref erence range: <=1. The reference range was not used to int erpret this result as normal/abnormal . ADJUSTED WBC FLUID 16 /cu mm See_Comment H [Automat ed message] (BEAKER) (test code = The sy stem which 2985) generated this result transmitted ref erence range: <=5. The reference range was not used to int erpret this result as normal/abnormal . LINING CELLS (BEAKER) 0 /cu mm See_Comment [Auto mated message] (test code = 1590) The syste m which generated this result transmitted ref erence range: <=1. The reference range was not used to int erpret this result as normal/abnormal . NEUTROPHILS FLUID 13 % (BEAKER) (test code = 1656) LYMPHS FLUID (BEAKER) 13 % (test code = 488) MONO/MACROPHAGE FLUID 74 % (BEAKER) (test code = 489) EOSINOPHILS FLUID 0 % (BEAKER) (test code = 491) BASO FLUID (BEAKER) 0 % (test code = 492) CONTAINER BODY FLUID EDTA Tube (BEAKER) (test code = 2873) OSKAR TITER AND [id number] 10:13:44 Test Item Value Reference Range Interpretation Comments OSKAR TITER (BEAKER) (test code = :640 1541) OSKAR PATTERN (BEAKER) (test code = Homogeneous 1781) ANTI-NUCLEAR ANTIBODY (OSKAR)2022-02-10 10:13:33 Test Item Value Reference Range Interpretation Comments ANTI-NUCLEAR ANTIBODY (OSKAR) (BEAKER) Positive Negative A (test code = 418) Test performed by IFA method.Urinalysis w/Microscopic + Reflex to Culture 2022-02-10 09:31:30 Test Item Value Reference Range Interpretation Comments Color, UA (test Yellow code = 5778-6) Clarity, UA (test Clear code = 5767-9) Specific Chamberlain, 1.018 1.001-1.035 UA (test code = 5811-5) pH, UA (test code 5.0 5.0-8.0 = 5803-2) Protein, UA (test Negative Negative code = 24983-9) Glucose, UA (test Negative Negative code = 365) Ketones, UA (test Negative Negative code = 2514-8) Bilirubin, UA Negative Negative (test code = 14735-1) Blood, UA (test Negative Negative code = 00149-3) Nitrite, UA (test Negative Negative code = 5802-4) Leukocytes, UA Negative Negative (test code = 5799-2) Urobilinogen, UA 0.2 mg/dL 0.2-1.0 (test code = 33542-3) RBC, UA (test 1 See_Comment [Automated me ssage] code = 17597-6) The system [facility] generated this result transmit britta reference range : /HPF. The refer ence range was not u sed to interpret th is result as normal/abnormal . WBC, UA (test 1 See_Comment [Automated me ssage] code = 5821-4) The system [facility] generated this result transmit britta reference range : /HPF. The refer ence range was not u sed to interpret th is result as normal/abnormal . Bacteria, UA None Seen (test code = 85703-9) Squam Epithel, UA <1 See_Comment [Automate d message] (test code = The system [facility] 46865-3) generated this result transmit britta reference range : /HPF. The refer ence range was not u sed to interpret th is result as normal/abnormal . Crystals, Urine None Seen (test code = 87882-2) Specimen Source (test code = 2795) ALLYN (test code = Automatic Drill Operator ID - ALLYN) [auto]Automatic Drill Operator ID - tech [facility] HospitalURINALYSIS W/ REFLEX URINE [id number] 09:31:30 Test Item Value Reference Range Interpretation Comments COLOR (BEAKER) (test code = 470) Yellow CLARITY (BEAKER) (test code = 469) Clear SPECIFIC GRAVITY UA (BEAKER) (test 1.018 1.001-1.035 code = 468) PH UA (BEAKER) (test code = 467) 5.0 5.0-8.0 PROTEIN UA (BEAKER) (test code = Negative Negative 464) GLUCOSE UA (BEAKER) (test code = Negative Negative 365) KETONES UA (BEAKER) (test code = Negative Negative 371) BILIRUBIN UA (BEAKER) (test code = Negative Negative 462) BLOOD UA (BEAKER) (test code = 461) Negative Negative NITRITE UA (BEAKER) (test code = Negative Negative 465) LEUKOCYTE ESTERASE UA (BEAKER) Negative Negative (test code = 466) UROBILINOGEN UA (BEAKER) (test code 0.2 mg/dL 0.2-1.0 = 463) RBC UA (BEAKER) (test code = 519) 1 /HPF WBC UA (BEAKER) (test code = 520) 1 /HPF BACTERIA (BEAKER) (test code = 517) None Seen SQUAMOUS EPITHELIAL (BEAKER) (test < /HPF code = 516) CRYSTALS, URINE (BEAKER) (test code None Seen = 1521) SOURCE(BEAKER) (test code = 2795) Automatic Drill Operator ID - [auto]Automatic Drill Operator ID - techRAD, ABDOMEN/KUB, 1 VIEW [id number] 04:58:00NAGA HURTeason for exam:->Enteric tube placement verificationPIONEERS MEMORIAL [facility]ITALName: EDDI [facility] : 1955 Sex: MFINAL REPORT EXAM/TECHNIQUE: RAD, ABDOMEN/KUB, 1 VIEW AP INDICATION: Enteric tube COMPARISON: None. FINDINGS: Gastric tube and sidehole terminate in the expected location of the stomach. Small bowel dilatation. Impression: Gastric tube and sidehole terminate in the expected location of the stomach. Signed: Mc Jones MDReport Verified Date/Time: 02/10/2022 04:58:13 CT, ABDOMEN 2022-02-09 21:06:00NAGA HURT MDUnlisted Reason for Exam - Click Yes and Enter Reason Below->NoIs this for enterography?->NoWill this procedure require oral contrast?->No [facility] 1955 Sex: MFINAL REPORT EXAM/TECHNIQUE: CT of the abdomen and pelvis with IV contrast. Dosemodulation, iterative reconstruction, and/or weight based adjustment of the mA/kV was utilized to reduce the radiation dose to as low as reasonably achievable. INDICATION: Abdominal pain. COMPARISON: None. FINDINGS: Lower thorax: Small right pleural effusion. Liver: Cirrhotic morphology of the liver. Biliary: Dilated gallbladder. No biliary dilatation. Spleen: Profound splenomegaly measuring 19 cm. Pancreas: Unremarkable. Adrenals: Unremarkable. Kidneys: Symmetric bilateral nephrograms. No hydronephrosis. No focal renal mass. Bowel: Diffuse mural thickening of the colon. Appendix is normal in appear ance. Scattered small bowel mural thickening. Periumbilical hernia with small bowel dilatation and transition point at the mouth. Small hiatal hernia. Lymph nodes: Periportal and retroperitoneal lymphadenopathy. Mesentery: Small volume ascites is present. Pelvis: Unremarkable appearance of the pelvic organs. Hunched diverticulum of the bladder. Vessels: Poor systemic collaterals are present includinga splenorenal shunt. Osseous: No acute osseous process. No suspicious osseous lesions. Impression: 1. Small bowel obstruction with transition point at the mouth of the periumbilical hernia that contains a loop of small bowel. 2. Cirrhosis and decompensated portal venous hypertension with splenomegaly,small volume ascites, small right pleural effusion, and ally systemic collaterals. 3. Diffuse muralthickening of the bowel and scattered small bowel loops may represent vascular congestion. 4. Periportal and retroperitoneal lymphadenopathy may be secondary to volume status. 5. Distention of the gallbladder is nonspecific. If there is high clinical concern for acute cholecystitis, consider ultrasound. Signed: Mc Jones MDReport Verified Date/Time: 02/09/2022 21:06:52 SARS-COV2/RT-PCR ([facility])2022-02-09 20:27:47 Test Item Value Reference Range Interpretation Comments SARS-COV2/RT-PCR Negative Negative The SARS-Co V-2 target (test code = nucleic acids a re not 7103385) detected in thi s specimen. Negative result s do not preclude SARS-C oV-2 infection and s hould not be used as the marychuy e basis for patient managem ent decisions. Nega tive results must be combine d with clinical observ ations, patient history , and epidemiological information. A false negativ e result may occur if a spec imen is improperly lashell ected, transported or handled. This SARS CoV-2 test is a rapid, real-time RT-PC R test intended for th e qualitative detection of nu cleic acid from SARS-CoV-2 in a nasopharyngeal swab specimen collected from individuals suspected of CO VID-19 by their healthcar e provider. This test has been authorized by FDA under an EUA for use by authorized laboratories. This test is only authorized for the duration of the declaration that circumstances exist justifying the authorization of emergency use of in vitro diagnostic tests for detection and/or diagnosis of COVID-19 under Section 564(b)(1) of the Federal Food, Drug and Cosmetic Act, 21 U.S.C. 360bbb-3(b)(1), unless the authorization is terminated or revoked sooner. Fact Sheet for Healthcare Providers: https://www.[employer]/Documents/Xpert%20Xpress%20SARS%20CoV-2/Fact%20Sheets/707-9592%12HPGZ-XCF-4%20 HEALTHCARE%20PROVIDERS%20FACT%20SHEET.pdf Fact Sheet for Healthcare Patients: https://www.[employer]/Documents/Xpert%20Xp ress%20SARS%20CoV-2/Fact%20Sheets/302-3801%52GUID-NSY-4%20PATIENT%20FACT%20SHEET .pdfCOMPREHENSIVE METABOLIC [id number] 20:07:42 Test Item Value Reference Range Interpretation Comments TOTAL PROTEIN 7.6 gm/dL 6.0-8.3 Specimen sligh tly (BEAKER) (test code = hemoly zed 770) ALBUMIN (BEAKER) 3.0 g/dL 3.5-5.0 L Specimen sl ightly (test code = 1145) hemolyzed ALKALINE PHOSPHATASE 104 U/L 40-150 (BEAKER) (test code = 346) BILIRUBIN TOTAL 1.2 mg/dL 0.2-1.2 Specimen sli ghtly (BEAKER) (test code = hemoly zed 377) SODIUM (BEAKER) (test 134 meq/L 136-145 L code = 381) POTASSIUM (BEAKER) 4.5 meq/L 3.5-5.1 Specimen slightly (test code = 379) hemolyzed CHLORIDE (BEAKER) 103 meq/L 98-107 (test code = 382) CO2 (BEAKER) (test 24 meq/L 22-29 code = 355) BLOOD UREA NITROGEN 25 mg/dL 7-21 H (BEAKER) (test code = 354) CREATININE (BEAKER) 0.92 mg/dL 0.57-1.25 Specimen slightly (test code = 358) hemolyzed GLUCOSE RANDOM 113 mg/dL 70-105 H (BEAKER) (test code = 652) CALCIUM (BEAKER) 8.8 mg/dL 8.4-10.2 (test code = 697) AST (SGOT) (BEAKER) 44 U/L 5-34 H Specimen slightly (test code = 353) hemolyzed ALT (SGPT) (BEAKER) 21 U/L 6-55 Specimen slightly (test code = 347) hemolyzed EGFR (BEAKER) (test INSUFFIC IENT CLINICAL code = 1092) DATA TO CALCULA TE ESTIMATED GFR. Automatic Drill Operator ID - AISHWARYABRAXTON [id number] 19:59:54 Test Item Value Reference Range Interpretation Comments LIPASE (BEAKER) (test code = 749) 45 U/L 8-78 Automatic Drill Operator ID - AISHWARYABRAXTON LPT/[id number] 19:40:32 Test Item Value Reference Range Interpretation Comments PROTIME (BEAKER) (test 15.6 seconds 11.9-14.2 H code = 759) INR (BEAKER) (test 1.26 See_Comment [Automat ed code = 370) message] The sy stem which generated this result transmitted reference range : <=5.90. The reference range was not used to interpret this result as normal/abnormal . PARTIAL THROMBOPLASTIN 33.8 seconds 22.5-36.0 TIME (BEAKER) (test code = 760) RECOMMENDED COUMADIN/WARFARIN INR THERAPY RANGESSTANDARD DOSE: 2.0 - 3.0 Includes: PROPHYLAXIS for venous thrombosis, systemic embolization; TREATMENT for venous thrombosis and/or pulmonary embolus.HIGH RISK: Target INR is 2.5-3.5 for patients with mechanical heart valves.LACTIC ACID, [id number] 19:39:50 Test Item Value Reference Range Interpretation Comments LACTATE BLOOD VENOUS 1.81 mmol/L 0.50-2.20 Specime n slightly (2) (BEAKER) (test hemolyzed code = 3602) Automatic Drill Operator ID - PIAYA LCBC W/PLT COUNT & AUTO [id number] 19:28:09 Test Item Value Reference Range Interpretation Comments WHITE BLOOD CELL COUNT (BEAKER) 4.9 K/ L 3.5-10.5 (test code = 775) RED BLOOD CELL COUNT (BEAKER) 3.64 M/ L 4.63-6.08 L (test code = 761) HEMOGLOBIN (BEAKER) (test code = 11.1 GM/DL 13.7-17.5 L 410) HEMATOCRIT (BEAKER) (test code = 33.6 % 40.1-51.0 L 411) MEAN CORPUSCULAR VOLUME (BEAKER) 92.3 fL 79.0-92.2 H (test code = 753) MEAN CORPUSCULAR HEMOGLOBIN 30.5 pg 25.7-32.2 (BEAKER) (test code = 751) MEAN CORPUSCULAR HEMOGLOBIN CONC 33.0 GM/DL 32.3-36.5 (BEAKER) (test code = 752) RED CELL DISTRIBUTION WIDTH 17.3 % 11.6-14.4 H (BEAKER) (test code = 412) PLATELET COUNT (BEAKER) (test code 69 K/CU MM 150-450 L = 756) MEAN PLATELET VOLUME (BEAKER) 8.9 fL 9.4-12.4 L (test code = 754) NUCLEATED RED BLOOD CELLS (BEAKER) 0 /100 WBC 0-0 (test code = 413) NEUTROPHILS RELATIVE PERCENT 77 % (BEAKER) (test code = 429) LYMPHOCYTES RELATIVE PERCENT 11 % (BEAKER) (test code = 430) MONOCYTES RELATIVE PERCENT 6 % (BEAKER) (test code = 431) EOSINOPHILS RELATIVE PERCENT 4 % (BEAKER) (test code = 432) BASOPHILS RELATIVE PERCENT 1 % (BEAKER) (test code = 437) NEUTROPHILS ABSOLUTE COUNT 3.76 K/ L 1.78-5.38 (BEAKER) (test code = 670) LYMPHOCYTES ABSOLUTE COUNT 0.55 K/ L 1.32-3.57 L (BEAKER) (test code = 414) MONOCYTES ABSOLUTE COUNT (BEAKER) 0.30 K/ L 0.30-0.82 (test code = 415) EOSINOPHILS ABSOLUTE COUNT 0.18 K/ L 0.04-0.54 (BEAKER) (test code = 416) BASOPHILS ABSOLUTE COUNT (BEAKER) 0.04 K/ L 0.01-0.08 (test code = 417) IMMATURE GRANULOCYTES-RELATIVE 1 % 0-1 PERCENT (BEAKER) (test code = 2801) [id number] 19:22:34 Test Item Value Reference Range Interpretation Comments AMMONIA (BEAKER) 26 mol/L 18-72 Specimen mo derately (test code = 348) hemolyzed Automatic Drill Operator ID - PIAYA LHEPATITIS C [id number] 15:36:09 Test Item Value Reference Range Interpretation Comments HEPATITIS C ANTIBODY (BEAKER) (test Reactive Nonreactive A code = 367) Automatic Drill Operator ID - ADMINHEPATITIS A ANTIBODY, [id number] 15:22:17 Test Item Value Reference Range Interpretation Comments HEPATITIS A IGG ANTIBODY (BEAKER) Nonreactive Nonreactive (test code = 2797) Automatic Drill Operator ID - [id number] 15:05:07 Test Item Value Reference Range Interpretation Comments PROCALCITONIN (BEAKER) (test code 0.15 ng/mL <0.05 H = 3036) SEPSIS RISK (ng/mL)Low: 0.05-0.50Intermediate: 0.51-2.00High: >=2.01 COMPREHENSIVE METABOLIC [id number] 14:57:26 Test Item Value Reference Range Interpretation Comments TOTAL PROTEIN 7.7 gm/dL 6.0-8.3 (BEAKER) (test code = 770) ALBUMIN (BEAKER) 3.0 g/dL 3.5-5.0 L (test code = 1145) ALKALINE PHOSPHATASE 121 U/L 40-150 (BEAKER) (test code = 346) BILIRUBIN TOTAL 1.2 mg/dL 0.2-1.2 (BEAKER) (test code = 377) SODIUM (BEAKER) (test 134 meq/L 136-145 L code = 381) POTASSIUM (BEAKER) 3.9 meq/L 3.5-5.1 (test code = 379) CHLORIDE (BEAKER) 101 meq/L 98-107 (test code = 382) CO2 (BEAKER) (test 25 meq/L 22-29 code = 355) BLOOD UREA NITROGEN 24 mg/dL 7-21 H (BEAKER) (test code = 354) CREATININE (BEAKER) 0.97 mg/dL 0.57-1.25 (test code = 358) GLUCOSE RANDOM 109 mg/dL 70-105 H (BEAKER) (test code = 652) CALCIUM (BEAKER) 8.9 mg/dL 8.4-10.2 (test code = 697) AST (SGOT) (BEAKER) 37 U/L 5-34 H (test code = 353) ALT (SGPT) (BEAKER) 19 U/L 6-55 (test code = 347) EGFR (BEAKER) (test INSUFFIC IENT CLINICAL code = 1092) DATA TO CALCULA TE ESTIMATED GFR. Automatic Drill Operator ID - [id number] 14:48:46 Test Item Value Reference Range Interpretation Comments ALPHA-1 ANTITRYPSIN (BEAKER) 205.20 mg/dL 90.00-200.00 H (test code = 502) Automatic Drill Operator ID - ADMINBILIRUBIN, [id number] 14:48:45 Test Item Value Reference Range Interpretation Comments BILIRUBIN DIRECT (BEAKER) (test 0.6 mg/dL 0.1-0.5 H code = 706) Automatic Drill Operator ID - ADMINPROTHROMBIN TIME/[id number] 14:46:41 Test Item Value Reference Range Interpretation Comments PROTIME (BEAKER) 15.7 seconds 11.9-14.2 H (test code = 759) INR (BEAKER) (test 1.27 See_Comment [Automat ed message] code = 370) The system [employer] generated this result transmitted ref erence range: <=5.90. The reference range was not used to int erpret this result as normal/abnormal . RECOMMENDED COUMADIN/WARFARIN INR THERAPY RANGESSTANDARD DOSE: 2.0 - 3.0 Includes: PROPHYLAXIS for venous thrombosis, systemic embolization; TREATMENT for venous thrombosis and/or pulmonary embolus.HIGH RISK: Target INR is 2.5-3.5 for patients with mechanical heart valves.LACTIC ACID, [id number] 14:36:58 Test Item Value Reference Range Interpretation Comments LACTATE BLOOD VENOUS 1.59 mmol/L 0.50-2.20 Specime n slightly (2) (BEAKER) (test hemolyzed code = 2772) Automatic Drill Operator ID - ADMINCBC W/PLT COUNT & AUTO [id number] 14:24:37 Test Item Value Reference Range Interpretation Comments WHITE BLOOD CELL COUNT (BEAKER) 4.8 K/ L 3.5-10.5 (test code = 775) RED BLOOD CELL COUNT (BEAKER) 3.44 M/ L 4.63-6.08 L (test code = 761) HEMOGLOBIN (BEAKER) (test code = 10.4 GM/DL 13.7-17.5 L 410) HEMATOCRIT (BEAKER) (test code = 31.7 % 40.1-51.0 L 411) MEAN CORPUSCULAR VOLUME (BEAKER) 92.2 fL 79.0-92.2 (test code = 753) MEAN CORPUSCULAR HEMOGLOBIN 30.2 pg 25.7-32.2 (BEAKER) (test code = 751) MEAN CORPUSCULAR HEMOGLOBIN CONC 32.8 GM/DL 32.3-36.5 (BEAKER) (test code = 752) RED CELL DISTRIBUTION WIDTH 17.1 % 11.6-14.4 H (BEAKER) (test code = 412) PLATELET COUNT (BEAKER) (test code 63 K/CU MM 150-450 L = 756) MEAN PLATELET VOLUME (BEAKER) 8.9 fL 9.4-12.4 L (test code = 754) NUCLEATED RED BLOOD CELLS (BEAKER) 0 /100 WBC 0-0 (test code = 413) NEUTROPHILS RELATIVE PERCENT 74 % (BEAKER) (test code = 429) LYMPHOCYTES RELATIVE PERCENT 12 % (BEAKER) (test code = 430) MONOCYTES RELATIVE PERCENT 7 % (BEAKER) (test code = 431) EOSINOPHILS RELATIVE PERCENT 6 % (BEAKER) (test code = 432) BASOPHILS RELATIVE PERCENT 1 % (BEAKER) (test code = 437) NEUTROPHILS ABSOLUTE COUNT 3.51 K/ L 1.78-5.38 (BEAKER) (test code = 670) LYMPHOCYTES ABSOLUTE COUNT 0.57 K/ L 1.32-3.57 L (BEAKER) (test code = 414) MONOCYTES ABSOLUTE COUNT (BEAKER) 0.33 K/ L 0.30-0.82 (test code = 415) EOSINOPHILS ABSOLUTE COUNT 0.26 K/ L 0.04-0.54 (BEAKER) (test code = 416) BASOPHILS ABSOLUTE COUNT (BEAKER) 0.04 K/ L 0.01-0.08 (test code = 417) IMMATURE GRANULOCYTES-RELATIVE 1 % 0-1 PERCENT (BEAKER) (test code = 2801) [id number] 12:18:00 Test Item Value Reference Range Interpretation Comments GLUBED (test code = GLUBED) 128 mg/dL 70-110 H VANCOMYCIN [id number] 08:39:00 Test Item Value Reference Range Interpretation Comments VANCOMYCIN TROUGH 30.4 mcg/mL 10-20 H Other dise ase (test code = VANCT) associat ed reference ranges: 10 - 15 mcg/mL Cellulit is, urinary tract infection 15 - 20 mcg/mL Bacterem ia, infective endocarditis, osteomyelitis, meningitis, pneumonia, romero re skin/soft tissu e infection, spin al abscess Specimen comments: PRIOR TO AM DOSE OF VANCOMYCINComments to Strip Mine Supervisor: DRAW LEVEL THEN GIVE VANCDOSECBC W/AUTO [id number] 05:02:00 Test Item Value Reference Range Interpretation Comments WHITE BLOOD CELL (test code = 5.3 K/mm3 4.5-11.0 N WBC) RED BLOOD CELL (test code = 1.98 M/mm3 4.40-5.90 L RBC) HEMOGLOBIN (test code = HGB) 6.5 gm/dL 13.0-17.0 LL HEMATOCRIT (test code = HCT) 20.4 % 36.0-48.0 L MEAN CELL VOLUME (test code = 103.0 UM3 80.0-94.0 H MCV) MEAN CELL HGB (test code = MCH) 32.8 UUG 25.5-32.5 H MEAN CELL HGB CONCETRATION 31.9 gm/dL 29.0-35.5 N (test code = MCHC) RED CELL DISTRIBUTION WIDTH 19.5 % 11.5-15.0 H (test code = RDW) RED CELL DISTRIBUTION WIDTH SD 71.9 fL 34.8-50.2 H (test code = RDW-SD) PLATELET COUNT (test code = 63 K/mm3 150-400 L PLT) MEAN PLATELET VOLUME (test code 9.9 fl 7.4-10.4 N = MPV) NEUTROPHIL % (test code = NT%) 68.0 % 49.0-76.0 N IMMATURE GRANULOCYTE % (test 1.0 % 0.0-0.4 H code = IG%) LYMPHOCYTE % (test code = LY%) 13.3 % 23.0-38.0 L MONOCYTE % (test code = MO%) 11.2 % 1.0-10.0 H EOSINOPHIL % (test code = EO%) 6.3 % 1.0-5.0 H BASOPHIL % (test code = BA%) 0.2 % 0.0-1.0 N NUCLEATED RBC % (test code = 0.0 % 0.0-0.1 N NRBC%) NEUTROPHIL # (test code = NT#) 3.6 K/mm3 2.4-6.3 N IMMATURE GRANULOCYTE # (test 0.05 x10 3/uL 0.00-0.07 N code = IG#) LYMPHOCYTE # (test code = LY#) 0.7 K/mm3 1.2-4.0 L MONOCYTE # (test code = MO#) 0.6 K/mm3 0.0-0.6 N EOSINOPHIL # (test code = EO#) 0.3 K/MM3 0.0-0.7 N BASOPHIL # (test code = BA#) 0.0 K/mm3 0.0-0.2 N NUCLEATED RBC # (test code = 0.00 X10 3uL 0.00-0.01 N NRBC#) BASIC METABOLIC [id number] 05:01:00 Test Item Value Reference Range Interpretation Comments SODIUM (test code = NA) 141 mmol/l 134.0-147.0 N POTASSIUM (test code = K) 3.7 mmol/L 3.6-5.2 N CHLORIDE (test code = CL) 111 mmol/l 98.0-107.0 H CARBON DIOXIDE (test code = CO2) 24.0 mmol/l 21.0-33.0 N ANION GAP (test code = GAP) 9.7 0-20 N GLUCOSE (test code = GLU) 140 mg/dl 70.0-110.0 H BLOOD UREA NITROGEN (test code = 32 mg/dl 7.0-18.0 H BUN) CREATININE (test code = CREAT) 1.20 mg/dL 0.60-1.30 N GFR NON BLACK (test code = 64 mL/min 80-90 L GFRNONBLACK) GFR BLACK (test code = GFRBLACK) 78 mL/min 97-109 L CALCIUM (test code = CA) 7.5 mg/dl 8.0-10.5 L COMPREHENSIVE METABOLIC [id number] 06:40:00 Test Item Value Reference Range Interpretation Comments SODIUM (test code = NA) 143 mmol/l 134.0-147.0 N POTASSIUM (test code = K) 3.5 mmol/L 3.6-5.2 L CHLORIDE (test code = CL) 113 mmol/l 98.0-107.0 H CARBON DIOXIDE (test code = CO2) 25.6 mmol/l 21.0-33.0 N ANION GAP (test code = GAP) 7.9 0-20 N GLUCOSE (test code = GLU) 130 mg/dl 70.0-110.0 H BLOOD UREA NITROGEN (test code = 30 mg/dl 7.0-18.0 H BUN) CREATININE (test code = CREAT) 1.09 mg/dL 0.60-1.30 N GFR NON BLACK (test code = 72 mL/min 80-90 L GFRNONBLACK) GFR BLACK (test code = GFRBLACK) 87 mL/min 97-109 L TOTAL PROTEIN (test code = PROT) 5.6 gm/dL 6.4-8.2 L ALBUMIN (test code = ALB) 1.0 gm/dl 3.2-4.7 L CALCIUM (test code = CA) 7.4 mg/dl 8.0-10.5 L BILIRUBIN TOTAL (test code = 1.0 mg/dl 0.0-1.0 N BILT) SGOT/AST (test code = AST) 55 Units/L 15-37 H SGPT/ALT (test code = ALT) 31 Units/L 12.0-78.0 N ALKALINE PHOSPHATASE TOTAL (test 167 Units/L 50.0-136.0 H code = ALKP) [id number] 06:40:00 Test Item Value Reference Range Interpretation Comments MAGNESIUM (test code = MAG) 2.0 mg/dl 1.8-2.4 N [id number] 06:25:00 Test Item Value Reference Range Interpretation Comments AMMONIA (test code = AMM) 27.0 MCMOL/L 11.0-32.0 N CBC W/AUTO [id number] 06:22:00 Test Item Value Reference Range Interpretation Comments WHITE BLOOD CELL (test code = 5.1 K/mm3 4.5-11.0 N WBC) RED BLOOD CELL (test code = 2.32 M/mm3 4.40-5.90 L RBC) HEMOGLOBIN (test code = HGB) 7.6 gm/dL 13.0-17.0 L HEMATOCRIT (test code = HCT) 24.2 % 36.0-48.0 L MEAN CELL VOLUME (test code = 104.3 UM3 80.0-94.0 H MCV) MEAN CELL HGB (test code = MCH) 32.8 UUG 25.5-32.5 H MEAN CELL HGB CONCETRATION 31.4 gm/dL 29.0-35.5 N (test code = MCHC) RED CELL DISTRIBUTION WIDTH 19.2 % 11.5-15.0 H (test code = RDW) RED CELL DISTRIBUTION WIDTH SD 71.1 fL 34.8-50.2 H (test code = RDW-SD) PLATELET COUNT (test code = 55 K/mm3 150-400 L PLT) MEAN PLATELET VOLUME (test code 9.7 fl 7.4-10.4 N = MPV) NEUTROPHIL % (test code = NT%) 73.4 % 49.0-76.0 N IMMATURE GRANULOCYTE % (test 1.2 % 0.0-0.4 H code = IG%) LYMPHOCYTE % (test code = LY%) 11.9 % 23.0-38.0 L MONOCYTE % (test code = MO%) 8.0 % 1.0-10.0 N EOSINOPHIL % (test code = EO%) 4.9 % 1.0-5.0 N BASOPHIL % (test code = BA%) 0.6 % 0.0-1.0 N NUCLEATED RBC % (test code = 0.0 % 0.0-0.1 N NRBC%) NEUTROPHIL # (test code = NT#) 3.8 K/mm3 2.4-6.3 N IMMATURE GRANULOCYTE # (test 0.06 x10 3/uL 0.00-0.07 N code = IG#) LYMPHOCYTE # (test code = LY#) 0.6 K/mm3 1.2-4.0 L MONOCYTE # (test code = MO#) 0.4 K/mm3 0.0-0.6 N EOSINOPHIL # (test code = EO#) 0.3 K/MM3 0.0-0.7 N BASOPHIL # (test code = BA#) 0.0 K/mm3 0.0-0.2 N NUCLEATED RBC # (test code = 0.00 X10 3uL 0.00-0.01 N NRBC#) [id number] 15:02:00 Test Item Value Reference Range Interpretation Comments SURGICAL (test code = SR) R UN DATE: 10/24/21 [place] - Lab PAGE 1 RUN TIME: 1502 Specimen Inquiry RUN USER: INTERFACE P ATIENT: EDDI MCGEE LOC: E.ICU U #: [id number] AGE/SX: 66/M [facility]: Mary Kidd MD : 57 BED: 1 DIS: STATUS: ADM IN TLOC: SPEC #: [id number] RECD: 10/18/21 STATUS: CAROLANN RE #: [id number] LASHELL: 10/18/21- SUBM DR: Mary Kidd MD ENTERED: 10/18/21 SP TYPE: SURGICAL OTHR DR: No Primary or Family Physician Self Referred Baltazar Henson MD, Kodlipet MD Malhotra, Advitya MD Moinuddeen, Khaja MDORDERED: GM LEVEL 4, ANATOMIC SPEC COPIES TO: No Primary or Family Physician Self Referred Baltazar Henson MD [address] [place] [address] Ashely Khan MD [address] [place] [address] Matty Gallegos MD [address] [place] [address] OTHER PHONE [phone] (CELL) Jocelyn Sunshine MD [address] [place] [id number] Mary Kidd MD [address] [place] [phone] [email or web address] PROCEDURES: GM LEVEL 4 (10/24/21-2822) TISSUES: PLEURA, NOS - RIGHT PLEURA CONTINUED ON NEXT PAGE R UN DATE: 10/24/[address] [facility] - Lab PAGE 2 RUN TIME: 1502 Specimen Inquiry RUN USER: INTERFACE S PEC #: [id number] PATIENT: EDDI MCGEE #[id number] (Continued) CLINICAL HISTORY SAME FINAL DIAGNOSIS Right pleura, biopsy:Pleural tissue with acute and chronic inflammation consistent with empyema. GROSS DESCRIPTION The specimen received in formalin in a container labeled with the patient's name anddesignated right pleura consists of multiple fragments of gordon soft tissue which inaggregate measures 5 x 3.5 x 1 cm. No mass lesions are identified. Representativesections are submitted in 2 cassettes. Technical component performed [facility],[address] [place] [address] [address] Unless gross only, the diagnosis is based upon microscopic examination.Immunohistochemistr y: This test was developed and its performance characteristicsdetermined by this laboratory. It has not been approved nor does it need approvalby the [place] FDA. Appropriate positive and negative controls are reviewed and judgedto be acceptable. This laboratory is certified under the Clinical Laboratory ImprovementAmendments (CLIA-88) as qualified to perform high complexity clinical laboratory testing. The professional interpretation of this case is performed at the [facility], [address] [place] [address], [place] [address] (CLIA# [id number]). MICROSCOPIC DESCRIPTION A microscopic examination was performed. CLINICAL INFORMATION RIGHT EMPYEMER ------- Signed SIGNATURE ON FILE Bal Michelle Hal 10/24/21 1502 END OF REPORT PROTHROMBIN [id number] 14:54:00 Test Item Value Reference Range Interpretation Comments PROTHROMBIN TIME 16.7 SECONDS 9.9-12.8 H PATIENT (test code = PTP) INTERNATIONAL NORMAL 1.4 0.89-1.14 H THE INR IS TO BE USED RATIO (test code = ONLY FOR MONITORING INR) ORAL ANTICOAGULANTTH ERAPY. THE FOLLOWING A RE SUGGESTED RANGE S FROM [facility] LEGE OF CHEST PHYSICIANS:JEANETTE CATION INR VALUEPROPHY LAXIS OF VENOUS THROM BOSIS (ORTHOPEDIC AIME KESHA) 2.0 - 3.0PROPHY LAXIS OF VENOUS THROM BOSIS (OTHER THAN HIG H-RISK SURGERY) 2.0 - 3.0TREATMENT OF DEEP VEIN THROMBOSIS OR PULMONARY EMBOL ISM 2.0 - 3.0PREVENTION OF SYSTEMIC EMBOLI SM TISSUE HEART VA LVES 2.0 - 3.0 ACUTE MYOCARDIAL INFA RCTION (TO PREVENT SYS TEMIC EMBOLISM) 2.0 - 3.0 ACUTE MYOCARDIA L INFARCTION (TO PREVENT RECURRENT INFAR CT) 2.5 - 3.0 VALVULAR HEART DISEASE 2.0 - 3 .0 ATRIAL FIBRILAT ION 2.0 - 3.0BILEAFLET MECHANICAL VALV E IN AORTIC POSITION 2.0 - 3.0MECHANICAL PROSTHETIC VALV ES (HIGH RISK) 2.5 - 3.5PRESENCE OF LUPUS ANTICOAGULANT O R ANTIPHOSPHOLIPI D ANTIBODIES 2.5 - 3.5 - US ABDOMEN [id number] 12:41:00 [facility] : 1955 Sex: M FAX: Mary Valente MD [phone] [place]: St: ADM Name: EDDI MCGEE [facility] : 1955 Age/S: 66/M [address] [facility] Unit #: [id number] Loc: [address] Phys: [place] [address] Acct: [id number] Dis Date: Status: ADM IN PHONE #: [phone] Exam Date: 10/24/2021 1141 FAX #: [phone] Reason: ascitis EXAMS: CPT CODE: [id number] US ABDOMEN LTD 96140 Dictation location:U19. LIMITED ABDOMINAL ULTRASOUND HISTORY: Ascites, evaluate for paracentesis. IMPRESSION: Ultrasound images show a small amount of ascites greatest in the left lower quadrant. The ascites appears simple. IMPRESSION: Small amount of ascites, not significant enough for a therapeutic paracentesis. at 1241 Reported and signed by: Ella Fonseca M.D. CC: Mary Kidd MD Technologist: KAITLIN VILLARREAL Trnscrd Date/Time/By: 10/24/2021 (8442) : By: [email or web address] PAGE 1 Signed Report FAX: Mary Valente MD [phone] [place]: St: ADM -- Name: EDDI MCGEE [facility] : 1955 Age/S: 66/M [address] [facility] Unit #: [id number] Loc: [address] Phys: [place] [address] Acct: [id number] Dis Date: Status: ADM INPHONE #: [phone] Exam Date: 10/24/2021 1141 FAX #: [phone] Reason: ascitis EXAMS: CPT CODE: [id number] US ABDOMEN LTD 25265 (Continued) Orig Print D/T: S: 10/24/2021 (1294) PAGE 2 Signed ReportBASIC METABOLIC [id number] 06:51:00 Test Item Value Reference Range Interpretation Comments SODIUM (test code = NA) 144 mmol/l 134.0-147.0 N POTASSIUM (test code = K) 3.4 mmol/L 3.6-5.2 L CHLORIDE (test code = CL) 115 mmol/l 98.0-107.0 H CARBON DIOXIDE (test code = CO2) 24.2 mmol/l 21.0-33.0 N ANION GAP (test code = GAP) 8.2 0-20 N GLUCOSE (test code = GLU) 136 mg/dl 70.0-110.0 H BLOOD UREA NITROGEN (test code = 25 mg/dl 7.0-18.0 H BUN) CREATININE (test code = CREAT) 0.84 mg/dL 0.60-1.30 N GFR NON BLACK (test code = 97 mL/min 80-90 H GFRNONBLACK) GFR BLACK (test code = GFRBLACK) 118 mL/min 97-109 H CALCIUM (test code = CA) 7.3 mg/dl 8.0-10.5 L CBC W/AUTO [id number] 06:29:00 Test Item Value Reference Range Interpretation Comments WHITE BLOOD CELL (test code = 5.7 K/mm3 4.5-11.0 N WBC) RED BLOOD CELL (test code = 2.55 M/mm3 4.40-5.90 L RBC) HEMOGLOBIN (test code = HGB) 8.3 gm/dL 13.0-17.0 L HEMATOCRIT (test code = HCT) 26.1 % 36.0-48.0 L MEAN CELL VOLUME (test code = 102.4 UM3 80.0-94.0 H MCV) MEAN CELL HGB (test code = MCH) 32.5 UUG 25.5-32.5 N MEAN CELL HGB CONCETRATION 31.8 gm/dL 29.0-35.5 N (test code = MCHC) RED CELL DISTRIBUTION WIDTH 19.1 % 11.5-15.0 H (test code = RDW) RED CELL DISTRIBUTION WIDTH SD 69.2 fL 34.8-50.2 H (test code = RDW-SD) PLATELET COUNT (test code = 52 K/mm3 150-400 L PLT) MEAN PLATELET VOLUME (test code 9.8 fl 7.4-10.4 N = MPV) NEUTROPHIL % (test code = NT%) 80.4 % 49.0-76.0 H IMMATURE GRANULOCYTE % (test 1.4 % 0.0-0.4 H code = IG%) LYMPHOCYTE % (test code = LY%) 7.7 % 23.0-38.0 L MONOCYTE % (test code = MO%) 7.2 % 1.0-10.0 N EOSINOPHIL % (test code = EO%) 3.1 % 1.0-5.0 N BASOPHIL % (test code = BA%) 0.2 % 0.0-1.0 N NUCLEATED RBC % (test code = 0.5 % 0.0-0.1 H NRBC%) NEUTROPHIL # (test code = NT#) 4.6 K/mm3 2.4-6.3 N IMMATURE GRANULOCYTE # (test 0.08 x10 3/uL 0.00-0.07 H code = IG#) LYMPHOCYTE # (test code = LY#) 0.4 K/mm3 1.2-4.0 L MONOCYTE # (test code = MO#) 0.4 K/mm3 0.0-0.6 N EOSINOPHIL # (test code = EO#) 0.2 K/MM3 0.0-0.7 N BASOPHIL # (test code = BA#) 0.0 K/mm3 0.0-0.2 N NUCLEATED RBC # (test code = 0.03 X10 3uL 0.00-0.01 H NRBC#) CBC W/AUTO [id number] 09:59:00 Test Item Value Reference Range Interpretation Comments WHITE BLOOD CELL (test 4.4 K/mm3 4.5-11.0 L code = WBC) RED BLOOD CELL (test 2.36 M/mm3 4.40-5.90 L code = RBC) HEMOGLOBIN (test code 7.7 gm/dL 13.0-17.0 L = HGB) HEMATOCRIT (test code 24.7 % 36.0-48.0 L = HCT) MEAN CELL VOLUME (test 104.7 UM3 80.0-94.0 H code = MCV) MEAN CELL HGB (test 32.6 UUG 25.5-32.5 H code = MCH) MEAN CELL HGB 31.2 gm/dL 29.0-35.5 N CONCETRATION (test code = MCHC) RED CELL DISTRIBUTION 18.8 % 11.5-15.0 H WIDTH (test code = RDW) RED CELL DISTRIBUTION 69.5 fL 34.8-50.2 H WIDTH SD (test code = RDW-SD) PLATELET COUNT (test 43 K/mm3 150-400 L MANUAL PLT code = PLT) ESTIMATE 74 MEAN PLATELET VOLUME 8.8 fl 7.4-10.4 N (test code = MPV) NEUTROPHIL % (test 76.3 % 49.0-76.0 H code = NT%) IMMATURE GRANULOCYTE % 1.1 % 0.0-0.4 H (test code = IG%) LYMPHOCYTE % (test 11.3 % 23.0-38.0 L code = LY%) MONOCYTE % (test code 7.6 % 1.0-10.0 N = MO%) EOSINOPHIL % (test 3.2 % 1.0-5.0 N code = EO%) BASOPHIL % (test code 0.5 % 0.0-1.0 N = BA%) NUCLEATED RBC % (test 0.0 % 0.0-0.1 N code = NRBC%) NEUTROPHIL # (test 3.3 K/mm3 2.4-6.3 N code = NT#) IMMATURE GRANULOCYTE # 0.05 x10 3/uL 0.00-0.07 N (test code = IG#) LYMPHOCYTE # (test 0.5 K/mm3 1.2-4.0 L code = LY#) MONOCYTE # (test code 0.3 K/mm3 0.0-0.6 N = MO#) EOSINOPHIL # (test 0.1 K/MM3 0.0-0.7 N code = EO#) BASOPHIL # (test code 0.0 K/mm3 0.0-0.2 N = BA#) NUCLEATED RBC # (test 0.00 X10 3uL 0.00-0.01 N code = NRBC#) - CHEST 1 [id number] 07:31:00 [facility] : 1955 Sex: M FAX: Baltazar Sunshine MD [phone] [place]: St: [facility] FAX: Mary Valente MD [phone] Name: EDDI MCGEE [facility] : 1955 Age/S: 66/M [address] [facility] #: [id number] Loc: [address] Phys: [place] [address] Acct: [id number] Dis Date: Status: ADM IN PHONE #: [phone] Exam Date: 10/23/2021555 FAX #: [phone] Reason: sob EXAMS: CPT CODE: [id number] XR CHEST1 V 57854 Location Code: C3 CHEST AP HISTORY: Dyspnea COMPARISON: Chest radiograph from prior day FINDINGS: Right subclavian catheter tip is at the distal SVC. The right-sided chest tubes are stable.Small right pleural effusion remains. There is volume loss in the right lung. Mild residual left basilar atelectasis or infiltrate. Cardiomediastinal silhouette is stable and normal. NG tube terminates in the stomach. Multiple leads and wires superimposed the patient. IMPRESSION: Right-sided chest tubes are stable. Small right pleural effusion remains. Volume loss in the right lung. Mild residual le ft basilar atelectasis or infiltrate. Electronically Signed by Juani Gonzalez MD on10/23/2021 at 0731 Reported and signed by: Juani Gonzalez MD CC: Baltazar Henson MD; Mary Kidd MD Technologist: MANASA PICKARD PAGE 1 Signed Report FAX: Baltazar Sunshine MD [phone] [place]: St: ADM FAX: Mary Valente MD [phone] Name: EDDI MCGEE [facility] : 1955 Age/S: 66/M[address] [facility] Unit #: [id number] Loc: E.[address] [place], [place]: [place] [address] Acct: [id number] Dis Date: Status: ADM IN PHONE #: [phone] Exam Date: 10/23/2021555 FAX#: [phone] Reason: sob EXAMS: CPT CODE: [id number] XR CHEST 1 V 56758 (Continued) Trnscrd Date/Time/By: 10/23/2021 (0731) : By: [email or web address] PAGE 2 Signed ReportBASIC METABOLIC PANEL 2021-10-23 07:02:00 Test Item Value Reference Range Interpretation Comments SODIUM (test code = NA) 151 mmol/l 134.0-147.0 H POTASSIUM (test code = K) 3.2 mmol/L 3.6-5.2 L CHLORIDE (test code = CL) 121 mmol/l 98.0-107.0 HH CARBON DIOXIDE (test code = CO2) 22.3 mmol/l 21.0-33.0 N ANION GAP (test code = GAP) 10.9 0-20 N GLUCOSE (test code = GLU) 118 mg/dl 70.0-110.0 H BLOOD UREA NITROGEN (test code = 28 mg/dl 7.0-18.0 H BUN) CREATININE (test code = CREAT) 0.82 mg/dL 0.60-1.30 N GFR NON BLACK (test code = 100 mL/min 80-90 H GFRNONBLACK) GFR BLACK (test code = GFRBLACK) 121 mL/min 97-109 H CALCIUM (test code = CA) 7.7 mg/dl 8.0-10.5 L - XR CHEST 1 [id number] 07:53:00 [facility] : 1955 Sex: M FAX: Baltazar Sunshine MD [phone] [place]: St: [facility] FAX: Mary Valente MD [phone] Name: EDDI MCGEE [facility] : 1955 Age/S: 66/M [address] [facility] Unit #: [id number] Loc: [address] Phys: [place] [id number] Acct: [id number] Dis Date: Status: ADM IN PHONE #: [phone] Exam Date: 10/22/2021 07 FAX #: [phone] Reason: sob EXAMS: CPT CODE: [id number] XR CHEST 1 V 86224 Location Code: C3 CHEST AP HISTORY: Dyspnea COMPARISON: Chest radiograph from 10/21/2021 FINDINGS: NG tube terminates in the stomach. Right subclavian catheter tip is at the distal SVC. The 2 right-sided chest tubes are stable, superimposing the apex. There is partial interval reexpansion of the right lung. Moderate right pleural effusion remains. Small hazy infiltrates or atelectasis persists at left lung base. Cardiomediastinal silhouette is stable. IMPRESSION: 2 right-sided chest tubes are stable, superimposing the apex. Partial interval reexpansion of the right lung. Moderate right pleural effusion remains. at 0753 Reported and signed by: Juani Dunn MD CC: Baltazar Henson MD; Mary Kidd MD Technologist: HYUN TAVERAS Trngard Date/Time/By: 10/22/2021 (0753) : By: [email or web address] PAGE 1 Signed Report FAX: Baltazar Sunshine MD [phone] [place]: St: ADM FAX: Mary Valente MD [phone] ----- Name: EDDI MCGEE [facility] : 1955 Age/S: 66/M [address] [facility] Unit #: [id number] Loc: [address] Phys: [place] [id number] Acct: [id number] Dis Date: Status: ADM IN PHONE #: [phone] Exam Date: 10/22/2021704 FAX #: [phone] Reason: sob EXAMS: CPT CODE: [id number] XR CHEST 1 V 23846 (Continued) Orig Print D/T: S: 10/22/2021 (0757) PAGE 2 Signed [id number] 06:21:00 Test Item Value Reference Range Interpretation Comments AMMONIA (test code = AMM) 35.4 MCMOL/L 11.0-32.0 HH BASIC METABOLIC [id number] 06:14:00 Test Item Value Reference Range Interpretation Comments SODIUM (test code = NA) 151 mmol/l 134.0-147.0 H POTASSIUM (test code = K) 3.2 mmol/L 3.6-5.2 L CHLORIDE (test code = CL) 120 mmol/l 98.0-107.0 H CARBON DIOXIDE (test code = CO2) 22.3 mmol/l 21.0-33.0 N ANION GAP (test code = GAP) 11.9 0-20 N GLUCOSE (test code = GLU) 124 mg/dl 70.0-110.0 H BLOOD UREA NITROGEN (test code = 24 mg/dl 7.0-18.0 H BUN) CREATININE (test code = CREAT) 0.69 mg/dL 0.60-1.30 N GFR NON BLACK (test code = 122 mL/min 80-90 H GFRNONBLACK) GFR BLACK (test code = GFRBLACK) 148 mL/min 97-109 H CALCIUM (test code = CA) 7.6 mg/dl 8.0-10.5 L CBC W/AUTO [id number] 12:53:00 Test Item Value Reference Range Interpretation Comments WHITE BLOOD CELL (test 4.9 K/mm3 4.5-11.0 N code = WBC) RED BLOOD CELL (test 2.28 M/mm3 4.40-5.90 L code = RBC) HEMOGLOBIN (test code 7.5 gm/dL 13.0-17.0 L = HGB) HEMATOCRIT (test code 23.7 % 36.0-48.0 L = HCT) MEAN CELL VOLUME (test 103.9 UM3 80.0-94.0 H code = MCV) MEAN CELL HGB (test 32.9 UUG 25.5-32.5 H code = MCH) MEAN CELL HGB 31.6 gm/dL 29.0-35.5 N CONCETRATION (test code = MCHC) RED CELL DISTRIBUTION 18.0 % 11.5-15.0 H WIDTH (test code = RDW) RED CELL DISTRIBUTION 66.7 fL 34.8-50.2 H WIDTH SD (test code = RDW-SD) PLATELET COUNT (test 46 K/mm3 150-400 L MANUAL PLT code = PLT) ESTIMATE = 84 K/mm3 MEAN PLATELET VOLUME 9.1 fl 7.4-10.4 N (test code = MPV) NEUTROPHIL % (test 79.8 % 49.0-76.0 H code = NT%) IMMATURE GRANULOCYTE % 1.0 % 0.0-0.4 H (test code = IG%) LYMPHOCYTE % (test 9.9 % 23.0-38.0 L code = LY%) MONOCYTE % (test code 6.8 % 1.0-10.0 N = MO%) EOSINOPHIL % (test 1.9 % 1.0-5.0 N code = EO%) BASOPHIL % (test code 0.6 % 0.0-1.0 N = BA%) NUCLEATED RBC % (test 0.0 % 0.0-0.1 N code = NRBC%) NEUTROPHIL # (test 3.9 K/mm3 2.4-6.3 N code = NT#) IMMATURE GRANULOCYTE # 0.05 x10 3/uL 0.00-0.07 N (test code = IG#) LYMPHOCYTE # (test 0.5 K/mm3 1.2-4.0 L code = LY#) MONOCYTE # (test code 0.3 K/mm3 0.0-0.6 N = MO#) EOSINOPHIL # (test 0.1 K/MM3 0.0-0.7 N code = EO#) BASOPHIL # (test code 0.0 K/mm3 0.0-0.2 N = BA#) NUCLEATED RBC # (test 0.00 X10 3uL 0.00-0.01 N code = NRBC#) [id number] 12:23:00 Test Item Value Reference Range Interpretation Comments AMMONIA (test code = AMM) 51.1 MCMOL/L 11.0-32.0 HH - XR CHEST 1 [id number] 06:41:00 [facility] : 1955 Sex: M FAX: Baltazar Sunshine MD [phone] [place]: St: ADM FAX: Mary Valente MD [phone] Name: EDDI MCGEE [facility] : 1955 Age/S: 66/M [address] [facility] [place] Unit #: [id number] Loc: [address] Phys: [place] [address] Acct: [id number] Dis Date: Status: ADM IN PHONE #: [phone] Exam Date: 10/21/2021524 FAX #: [phone] Reason: sob EXAMS: CPT CODE: [id number] XR CHEST 1V 40080 EXAMINATION: - XR CHEST 1 V HISTORY: Shortness of breath COMPARISON: Chest x-ray performed the previous day LOCATION CODE: C3 FINDINGS: Single frontal view of the chest is submitted for evaluation. The right hemithorax is nearly completely opacified with only a tiny apical pneumothorax visualized. Linear opacities in the left lung base appear relatively stable. Endotracheal tube has been removed since the prior study. Other life support apparatus is unchanged. IMPRESSION: Interval removal of endotracheal tube, with now near complete opacification of the right hemithorax as above at 0641 Reported and signed by: Mihaela Walker M.D CC: Baltazar Henson MD; Mary Kidd MD Technologist: ANALIA MILLER Trnscrd Date/Time/By: 10/21/2021 (0641) : By: [email or web address] PAGE 1 Signed Report FAX: Baltazar Sunshine MD [phone] [place]: St: [facility] FAX: Mary Valente MD [phone] Name: EDDI MCGEE [facility] : 1955 Age/S: 66/M [address] [place] Unit #: [id number] Loc: E.IC03 [place], [place]: [place] [address] Acct: [id number] Dis Date: Status: ADM IN PHONE #: [phone] Exam Date: 10/21/2021524 FAX #: [phone] Reason: sob EXAMS: CPT CODE: [id number] XR CHEST 1 V 51769 (Continued) Orig Print D/T: S: 10/21/2021 (0644) PAGE 2 Signed ReportBASIC METABOLIC [id number] 06:35:00 Test Item Value Reference Range Interpretation Comments SODIUM (test code = NA) 149 mmol/l 134.0-147.0 H POTASSIUM (test code = K) 3.4 mmol/L 3.6-5.2 L CHLORIDE (test code = CL) 119 mmol/l 98.0-107.0 H CARBON DIOXIDE (test code = CO2) 22.8 mmol/l 21.0-33.0 N ANION GAP (test code = GAP) 10.6 0-20 N GLUCOSE (test code = GLU) 113 mg/dl 70.0-110.0 H BLOOD UREA NITROGEN (test code = 23 mg/dl 7.0-18.0 H BUN) CREATININE (test code = CREAT) 0.71 mg/dL 0.60-1.30 N GFR NON BLACK (test code = 118 mL/min 80-90 H GFRNONBLACK) GFR BLACK (test code = GFRBLACK) 143 mL/min 97-109 H CALCIUM (test code = CA) 7.2 mg/dl 8.0-10.5 L ARTERIAL BLOOD [id number] 16:25:00 Test Item Value Reference Range Interpretation Comments ARTERIAL BLOOD GAS PH 7.342 7.350-7.450 L (test code = PHA) ARTERIAL BLOOD GAS PCO2 38.4 mmHg 35.0-45.0 N (test code = PCO2A) ARTERIAL BLOOD GAS PO2 175.0 mmHg See_Comment [Aut omated (test code = PO2A) message] The system which generated this result transmit britta reference range : 80.0. The reference range was not used to interpret this result as normal/abnormal . BICARBONATE TOTAL HCO3 20.3 MMOL/L 22.0-26.0 L (test code = HCO3) BASE EXCESS (test code = -4.9 MMOL/L -4.0-4.0 L KULDEEP) ABG O2 SATURATION (test 99.0 % 92.0-99.0 N code = SATA) FIO2 (test code = FIO2A) 40.0 % ABG SITE (test code = AL SITEA) ALLENS TEST (test code = Unable ALLENS) TOTAL HGB (test code = 7.3 g/dL 12.0-16.0 LL THB) CARBOXYHEMOGLOBIN (test 0.3 % THgb 0.0-1.5 N code = HOHGBT) METHEMOGLOBIN (test code 0.4 % 0.0-1.5 N NOR MAL = METHGB) <2.0POTENTIALLY TOXIC >20.0 ARTERIAL BLOOD [id number] 16:23:00 Test Item Value Reference Range Interpretation Comments ARTERIAL BLOOD GAS PH 7.363 7.350-7.450 N (test code = PHA) ARTERIAL BLOOD GAS PCO2 38.3 mmHg 35.0-45.0 N (test code = PCO2A) ARTERIAL BLOOD GAS PO2 120.0 mmHg See_Comment [Aut omated (test code = PO2A) message] The system which generated this result transmit britta reference range : 80.0. The reference range was not used to interpret this result as normal/abnormal . BICARBONATE TOTAL HCO3 21.3 MMOL/L 22.0-26.0 L (test code = HCO3) BASE EXCESS (test code = -3.7 MMOL/L -4.0-4.0 N KULDEEP) ABG O2 SATURATION (test 98.2 % 92.0-99.0 N code = SATA) FIO2 (test code = FIO2A) 40.0 % ABG VENT MODE (test code CPAP = MODEA) ABG CPAP (test code = 7.0 CPAPA) ABG PRESSURE SUPPORT 10 cmH2O (test code = PSABG) ABG SITE (test code = AL SITEA) ALLENS TEST (test code = Unable ALLENS) TOTAL HGB (test code = 7.1 g/dL 12.0-16.0 LL THB) CARBOXYHEMOGLOBIN (test 1.3 % THgb 0.0-1.5 N code = HOHGBT) METHEMOGLOBIN (test code 0.5 % 0.0-1.5 N NOR MAL = METHGB) <2.0POTENTIALLY TOXIC >20.0 CBC W/AUTO [id number] 15:12:00 Test Item Value Reference Range Interpretation Comments WHITE BLOOD CELL (test 9.5 K/mm3 4.5-11.0 N code = WBC) RED BLOOD CELL (test 2.44 M/mm3 4.40-5.90 L code = RBC) HEMOGLOBIN (test code 8.1 gm/dL 13.0-17.0 L = HGB) HEMATOCRIT (test code 25.2 % 36.0-48.0 L = HCT) MEAN CELL VOLUME (test 103.3 UM3 80.0-94.0 H code = MCV) MEAN CELL HGB (test 33.2 UUG 25.5-32.5 H code = MCH) MEAN CELL HGB 32.1 gm/dL 29.0-35.5 N CONCETRATION (test code = MCHC) RED CELL DISTRIBUTION 17.6 % 11.5-15.0 H WIDTH (test code = RDW) RED CELL DISTRIBUTION 65.3 fL 34.8-50.2 H WIDTH SD (test code = RDW-SD) PLATELET COUNT (test 72 K/mm3 150-400 L PLTS AP PEARED TO code = PLT) BE DECREASED ON SCANNED SMEAR. MEAN PLATELET VOLUME 8.6 fl 7.4-10.4 N (test code = MPV) NEUTROPHIL % (test 82.2 % 49.0-76.0 H code = NT%) IMMATURE GRANULOCYTE % 1.2 % 0.0-0.4 H (test code = IG%) LYMPHOCYTE % (test 7.9 % 23.0-38.0 L code = LY%) MONOCYTE % (test code 6.8 % 1.0-10.0 N = MO%) EOSINOPHIL % (test 1.3 % 1.0-5.0 N code = EO%) BASOPHIL % (test code 0.6 % 0.0-1.0 N = BA%) NUCLEATED RBC % (test 0.0 % 0.0-0.1 N code = NRBC%) NEUTROPHIL # (test 7.8 K/mm3 2.4-6.3 H code = NT#) IMMATURE GRANULOCYTE # 0.11 x10 3/uL 0.00-0.07 H (test code = IG#) LYMPHOCYTE # (test 0.8 K/mm3 1.2-4.0 L code = LY#) MONOCYTE # (test code 0.7 K/mm3 0.0-0.6 H = MO#) EOSINOPHIL # (test 0.1 K/MM3 0.0-0.7 N code = EO#) BASOPHIL # (test code 0.1 K/mm3 0.0-0.2 N = BA#) NUCLEATED RBC # (test 0.00 X10 3uL 0.00-0.01 N code = NRBC#) VANCOMYCIN [id number] 08:13:00 Test Item Value Reference Range Interpretation Comments VANCOMYCIN TROUGH 14.0 mcg/mL 10-20 N Other dise ase (test code = VANCT) associat ed reference ranges: 10 - 15 mcg/mL Cellulit is, urinary tract infection 15 - 20 mcg/mL Bacterem ia, infective endocarditis, osteomyelitis, meningitis, pneumonia, romero re skin/soft tissu e infection, spin al abscess Specimen comments: DRAW PRIOR TO AM VANCOMYCIN DOSEComments to [place] Supervisor: DRAW PRIOR TO AM VANCOMYCIN DOSE- XR CHEST 1 [id number] 07:15:00 [facility] : 1955 Sex: M FAX: Baltazar Sunshine MD [phone] [place]: St: ADM FAX: Mary Valente MD [phone] Name: EDDI MCGEE [facility] : 1955 Age/S: 66/M [address] [facility] [place] Unit #: [id number] [facility] [place], [place]: [place] [address] Acct: [id number] Dis Date: Status: ADM IN PHONE #: [phone] Exam Date: 10/20/2021545 FAX #: [phone] Reason: sob EXAMS: CPT CODE: [id number] XR CHEST1 V 62331 EXAMINATION: - XR CHEST 1 V HISTORY: Shortness of breath COMPARISON: Chest x-ray performed the previous day LOCATION CODE: C3 FINDINGS: Single frontal view of the chest is submitted for evaluation. Life support apparatus is unchanged. Linear opacities in the left lung base are somewhat less extensive on today's study. Right pleural effusion and linear opacities in the right lung base are stable, and there has been no other significant change IMPRESSION: Mild improvement in aeration of the left lung base at 0715 Reported and signed by: Mihaela Walker M.D CC: Baltazar Henson MD; Mary Kidd MD Technologist: KEELY ADAME Trnscrd Date/Time/By: 10/20/2021 (0715) : By: [email or web address] PAGE 1 Signed Report FAX: Baltazar Sunshine MD [phone] [place]: St: [facility] FAX: Mary Valente MD [phone] Name: EDDI MCGEE [facility] : 1955 Age/S: 66/M [address] [place] Unit #: [id number] Loc: [facility] [place], [place]: [place] [address] Acct: [id number] Dis Date: Status: ADM IN PHONE #: [phone] Exam Date: 10/20/2021545 FAX #: [phone] Reason: sob EXAMS: CPT CODE: [id number] XR CHEST 1 V 34307 (Continued) Orig Print D/T: S: 10/20/2021 (0718) PAGE 2 Signed [id number] 06:12:00 Test Item Value Reference Range Interpretation Comments MAGNESIUM (test code = MAG) 2.1 mg/dl 1.8-2.4 N BASIC METABOLIC [id number] 06:11:00 Test Item Value Reference Range Interpretation Comments SODIUM (test code = NA) 146 mmol/l 134.0-147.0 N POTASSIUM (test code = K) 3.4 mmol/L 3.6-5.2 L CHLORIDE (test code = CL) 115 mmol/l 98.0-107.0 H CARBON DIOXIDE (test code = CO2) 23.3 mmol/l 21.0-33.0 N ANION GAP (test code = GAP) 11.1 0-20 N GLUCOSE (test code = GLU) 116 mg/dl 70.0-110.0 H BLOOD UREA NITROGEN (test code = 25 mg/dl 7.0-18.0 H BUN) CREATININE (test code = CREAT) 0.82 mg/dL 0.60-1.30 N GFR NON BLACK (test code = 100 mL/min 80-90 H GFRNONBLACK) GFR BLACK (test code = GFRBLACK) 121 mL/min 97-109 H CALCIUM (test code = CA) 6.8 mg/dl 8.0-10.5 L ARTERIAL BLOOD [id number] 14:30:00 Test Item Value Reference Range Interpretation Comments ARTERIAL BLOOD GAS PH 7.354 7.350-7.450 N (test code = PHA) ARTERIAL BLOOD GAS PCO2 47.9 mmHg 35.0-45.0 H (test code = PCO2A) ARTERIAL BLOOD GAS PO2 117.7 mmHg See_Comment [Aut omated (test code = PO2A) message] The system which generated this result transmit britta reference range : 80.0. The reference range was not used to interpret this result as normal/abnormal . BICARBONATE TOTAL HCO3 26.1 MMOL/L 22.0-26.0 H (test code = HCO3) BASE EXCESS (test code = 0.3 MMOL/L -4.0-4.0 N KULDEEP) ABG O2 SATURATION (test 98.2 % 92.0-99.0 N code = SATA) FIO2 (test code = FIO2A) 40.0 % ABG SITE (test code = AL SITEA) ALLENS TEST (test code = Unable ALLENS) TOTAL HGB (test code = 9.5 g/dL 12.0-16.0 L THB) CARBOXYHEMOGLOBIN (test 0.3 % THgb 0.0-1.5 N code = HOHGBT) METHEMOGLOBIN (test code 0.2 % 0.0-1.5 N NOR MAL = METHGB) <2.0POTENTIALLY TOXIC >20.0 HIV 12 AB [id number] 06:53:00 Test Item Value Reference Range Interpretation Comments AB HIV 1 2 (test code = [id number]) NON REACTIVE NONREACTIVE AG HIV1 P24 (test code = NEGATIVE NEGATIVE [id number]) - XR CHEST 1 [id number] 06:49:00 [facility] : 1955 Sex: M FAX: Baltazar Sunshine MD [phone] [place]: EM St: ADM FAX: Mary Valente MD [phone] Name: EDDI MCGEE [facility] : 1955 Age/S: 66/M [address] [facility] Unit #: [id number] Loc: [address] Phys: [place] [address] Acct: [id number] Dis Date: Status: ADM IN PHONE #: [phone] Exam Date: 10/19/2021628 FAX #: [phone] Reason: sob EXAMS: CPT CODE: [id number] XR CHEST 1 V 26893 EXAMINATION: - XR CHEST 1 V HISTORY: Shortness of breath COMPARISON: Chest x-ray performed the previous day LOCATION CODE: C3 FINDINGS: Single frontal view of the chest is submitted for evaluation. Life support apparatus, a right pleural effusion containing a small amount of air and prominentinterstitial opacities in the right lung appear relatively stable. Linear changes in the left lung base are more pronounced on today's examination which may reflect developing atelectasis.. No new abnormalities are identified. IMPRESSION: More pronounced linear changes in the left lung base, likely atelectasis No other significant change at 0649 Reported and signed by: Mihaela Walker M.D CC: Baltazar Henson MD; Mary Kidd MD Technologist: MARY LOU LAMAS Trngard Date/Time/By: 10/19/2021 (0649) : By: [email or web address] PAGE 1 Signed Report FAX: Baltazar Sunshine MD [phone] [place]: [facility]: [facility] FAX: Mary Valente MD [phone] Name: EDDI MCGEE [facility] : 1955 Age/S: 66/M [address] [facility] Unit #: [id number] [facility]: [facility] [place], [place]: [place] [address] Acct: [id number] Dis Date: Status: ADM IN PHONE #: [phone] Date: 10/19/2021628 FAX #: [phone] Reason: sob EXAMS: CPT CODE: [id number] XR CHEST 1 V 94222 (Continued) Orig Print D/T: S: 10/19/2021 (0704) PAGE 2 Signed ReportBASIC METABOLIC [id number] 06:33:00 Test Item Value Reference Range Interpretation Comments SODIUM (test code = NA) 139 mmol/l 134.0-147.0 N POTASSIUM (test code = K) 3.5 mmol/L 3.6-5.2 L CHLORIDE (test code = CL) 107 mmol/l 98.0-107.0 N CARBON DIOXIDE (test code = CO2) 26.1 mmol/l 21.0-33.0 N ANION GAP (test code = GAP) 9.4 0-20 N GLUCOSE (test code = GLU) 123 mg/dl 70.0-110.0 H BLOOD UREA NITROGEN (test code = 25 mg/dl 7.0-18.0 H BUN) CREATININE (test code = CREAT) 0.98 mg/dL 0.60-1.30 N GFR NON BLACK (test code = 81 mL/min 80-90 N GFRNONBLACK) GFR BLACK (test code = GFRBLACK) 99 mL/min 97-109 N CALCIUM (test code = CA) 6.9 mg/dl 8.0-10.5 L CBC W/AUTO [id number] 06:10:00 Test Item Value Reference Range Interpretation Comments WHITE BLOOD CELL (test code = 17.5 K/mm3 4.5-11.0 H WBC) RED BLOOD CELL (test code = 2.71 M/mm3 4.40-5.90 L RBC) HEMOGLOBIN (test code = HGB) 9.0 gm/dL 13.0-17.0 L HEMATOCRIT (test code = HCT) 27.5 % 36.0-48.0 L MEAN CELL VOLUME (test code = 101.5 UM3 80.0-94.0 H MCV) MEAN CELL HGB (test code = MCH) 33.2 UUG 25.5-32.5 H MEAN CELL HGB CONCETRATION 32.7 gm/dL 29.0-35.5 N (test code = MCHC) RED CELL DISTRIBUTION WIDTH 17.7 % 11.5-15.0 H (test code = RDW) RED CELL DISTRIBUTION WIDTH SD 64.6 fL 34.8-50.2 H (test code = RDW-SD) PLATELET COUNT (test code = 113 K/mm3 150-400 L PLT) MEAN PLATELET VOLUME (test code 8.7 fl 7.4-10.4 N = MPV) NEUTROPHIL % (test code = NT%) 80.4 % 49.0-76.0 H IMMATURE GRANULOCYTE % (test 1.5 % 0.0-0.4 H code = IG%) LYMPHOCYTE % (test code = LY%) 8.4 % 23.0-38.0 L MONOCYTE % (test code = MO%) 7.4 % 1.0-10.0 N EOSINOPHIL % (test code = EO%) 1.7 % 1.0-5.0 N BASOPHIL % (test code = BA%) 0.6 % 0.0-1.0 N NUCLEATED RBC % (test code = 0.0 % 0.0-0.1 N NRBC%) NEUTROPHIL # (test code = NT#) 14.1 K/mm3 2.4-6.3 H IMMATURE GRANULOCYTE # (test 0.26 x10 3/uL 0.00-0.07 H code = IG#) LYMPHOCYTE # (test code = LY#) 1.5 K/mm3 1.2-4.0 N MONOCYTE # (test code = MO#) 1.3 K/mm3 0.0-0.6 H EOSINOPHIL # (test code = EO#) 0.3 K/MM3 0.0-0.7 N BASOPHIL # (test code = BA#) 0.1 K/mm3 0.0-0.2 N NUCLEATED RBC # (test code = 0.00 X10 3uL 0.00-0.01 N NRBC#) LACTIC [id number] 02:21:00 Test Item Value Reference Range Interpretation Comments LACTIC ACID (test code = LACT) 1.9 MMOL/L 0.4-2.0 N LACTIC [id number] 00:13:00 Test Item Value Reference Range Interpretation Comments LACTIC ACID (test code = LACT) 2.2 MMOL/L 0.4-2.0 H LACTIC ACID [id number] 22:04:00 Test Item Value Reference Range Interpretation Comments LACTIC ACID REPEAT (test code = 2.5 mmol/L 0.4-2.0 H LACTR) LACTIC [id number] 16:32:00 Test Item Value Reference Range Interpretation Comments LACTIC ACID (test code = LACT) 3.3 MMOL/L 0.4-2.0 H [id number] 16:08:00 Test Item Value Reference Range Interpretation Comments HEMOGLOBIN (test code = HGB) 9.8 gm/dL 13.0-17.0 L ARTERIAL BLOOD [id number] 10:36:00 Test Item Value Reference Range Interpretation Comments ARTERIAL BLOOD GAS PH 7.341 7.350-7.450 L (test code = PHA) ARTERIAL BLOOD GAS PCO2 44.3 mmHg 35.0-45.0 N (test code = PCO2A) ARTERIAL BLOOD GAS PO2 173.9 mmHg See_Comment [Aut omated (test code = PO2A) message] The system which generated this result transmitted reference range : 80.0. The reference range was not used to interpret this result as normal/abnormal . BICARBONATE TOTAL HCO3 23.4 MMOL/L 22.0-26.0 N (test code = HCO3) BASE EXCESS (test code = -2.3 MMOL/L -4.0-4.0 N KULDEEP) ABG O2 SATURATION (test 99.0 % 92.0-99.0 N code = SATA) FIO2 (test code = FIO2A) 60.0 % ABG VENT MODE (test code Assist Control = MODEA) ABG VENT RESP RATE (test 16.0 /MIN code = RRA) ABG TIDAL VOLUME (test 450.0 mL code = TVA) ABG PEEP (test code = 8.0 cmH2O PEEPA) ABG SITE (test code = AL SITEA) ALLENS TEST (test code = Unable ALLENS) TOTAL HGB (test code = 10.3 g/dL 12.0-16.0 L THB) CARBOXYHEMOGLOBIN (test 0.3 % THgb 0.0-1.5 N code = HOHGBT) METHEMOGLOBIN (test code 0.4 % 0.0-1.5 N NOR MAL = METHGB) <2.0POTENTIALLY TOXIC >20.0 - XR ABDOMEN 1 [id number] 10:30:00 [facility] : 1955 Sex: M FAX: Mary Valente MD [phone] [place]: St: ADM FAX: Vic Petersen [phone] ----- Name: EDDI MCGEE [facility] : 1955 Age/S: 66/M [address] [facility] Unit #: [id number] Loc: [address] Phys: [place] [address] Acct: [id number] Dis Date: Status: ADM IN GABBIE #: [phone] Exam Date: 10/18/20217 FAX #: [phone] Reason: DIMINISHED BOWEL SOUNDS EXAMS: CPT CODE: [id number] XR ABDOMEN 1 V 38668 Exam: Diminished bowel sounds. Abdomen, single view.An NG tube is seen in the stomach. Gas pattern with fairly normal gas distribution. Some left abdominal small bowel loops with air but normal diameter. Gas in the large bowel appropriately with normal stool. Rangel catheter in the bladder, now. No findings of free air or unusual calcifications. IMPRESSION: 3 or 4 nondistended air-filled small bowel loops in the left lower abdomen could indicate some mild ileus effect or enteritis. No obstructive features. NG tube in the stomach. Rangel in the bladder.Location: U 19 at 1030 Reported and signed by: Manuel James MD CC: Mary Kidd MD; Vivien Parada MD Technologist: DOROTHY SANON [facility] Date/Time/By: 10/18/2021 (1030) : By: [email or web address] PAGE 1 Signed Report FAX: Mary Cisneros Si, MD [phone] [place]: St: [facility] FAX: Vic Petersen [phone] Name: EDDI MCGEE [facility] : 1955 Age/S: 66/M [address] [facility] Unit #: [id number] Loc: [address] Phys: [place] [address] Acct: [id number] Dis Date: Status: ADM IN PHONE #: [phone] Exam Date: 10/18/2021 1027 FAX #: [phone] Reason: DIMINISHED BOWEL SOUNDS EXAMS: CPT CODE: [id number] XR ABDOMEN 1 V 45886 (Continued) Orig Print D/T: S: 10/18/2021 (0142) PAGE 2 Signed Report- XR CHEST 1 [id number] 08:37:00 [facility] : 1955 Sex: M FAX: Baltazar Sunshine MD [phone] [place]: St: [facility] FAX: Mary Valente MD [phone] Name: ARELYEDDI Hal [facility] : 1955 Age/S: 66/M [address] [facility] Unit #: [id number] Loc: E.IC03 [place], [place]: [place] [address] Acct: [id number] Dis Date: Status: ADM IN PHONE #: [phone] Exam Date: 10/18/2021823 FAX #: [phone] Reason: sob EXAMS: CPT CODE: [id number] XR CHEST 1 V 22642 EXAMINATION: - XR CHEST 1 V HISTORY: Shortness of breath COMPARISON: Chest x-ray performedthe previous day LOCATION CODE: C3 FINDINGS: Single frontal view of the chest is submitted for evaluation. Life support apparatus is unchanged. Right-sided pneumothorax is less apparent on today's study as the pneumothorax cavity appears to have largely filled with fluid compared to the prior exam. Left lung remains grossly clear, and no new abnormalities are identified. IMPRESSION: Right-sided pneumothorax appears to have become largely fluid-filled since the prior study No other significant change at 0837 Reported and signed by: Mihaela Walker M.D CC: Baltazar Henson MD; Mary Kidd MD Technologist: KEELY ADAME Trngard Date/Time/By:10/18/2021 (0837) : By: [email or web address] PAGE 1 Signed Report FAX: Baltazar Sunshine MD [phone] [place]: St: [facility] FAX: Mary Valente MD [phone] Name: EDDI MCGEE [facility] : 1955 Age/S: 66/M [address] [facility] Unit #: [id number] Loc: [address] Phys: [place] [address] Acct: [id number] Dis Date: Status: ADM IN PHONE #: [phone] Exam Date: 10/18/2021823 FAX #: [phone] Reason: sob EXAMS: CPT CODE: [id number] XR CHEST 1 V 69666 (Continued) Orig Print D/T: S: 10/18/2021 (6940) PAGE 2 Signed ReportCBC W/MANUAL [id number] 06:04:00 Test Item Value Reference Range Interpretation Comments WHITE BLOOD CELL (test code = 25.8 K/mm3 4.5-11.0 HH WBC) RED BLOOD CELL (test code = 3.09 M/mm3 4.40-5.90 L RBC) HEMOGLOBIN (test code = HGB) 10.3 gm/dL 13.0-17.0 L HEMATOCRIT (test code = HCT) 30.5 % 36.0-48.0 L MEAN CELL VOLUME (test code = 98.7 UM3 80.0-94.0 H MCV) MEAN CELL HGB (test code = MCH) 33.3 UUG 25.5-32.5 H MEAN CELL HGB CONCETRATION 33.8 gm/dL 29.0-35.5 N (test code = MCHC) RED CELL DISTRIBUTION WIDTH 17.7 % 11.5-15.0 H (test code = RDW) RED CELL DISTRIBUTION WIDTH SD 63.1 fL 34.8-50.2 H (test code = RDW-SD) PLATELET COUNT (test code = 162 K/mm3 150-400 PLT) MEAN PLATELET VOLUME (test code 8.8 fl 7.4-10.4 N = MPV) NEUTROPHIL % (test code = NT%) 84.9 % 49.0-76.0 H IMMATURE GRANULOCYTE % (test 1.9 % 0.0-0.4 H code = IG%) LYMPHOCYTE % (test code = LY%) 4.6 % 23.0-38.0 L MONOCYTE % (test code = MO%) 7.7 % 1.0-10.0 N EOSINOPHIL % (test code = EO%) 0.3 % 1.0-5.0 L BASOPHIL % (test code = BA%) 0.6 % 0.0-1.0 N NUCLEATED RBC % (test code = 0.0 % 0.0-0.1 N NRBC%) NEUTROPHIL # (test code = NT#) 21.8 K/mm3 2.4-6.3 H IMMATURE GRANULOCYTE # (test 0.50 x10 3/uL 0.00-0.07 H code = IG#) LYMPHOCYTE # (test code = LY#) 1.2 K/mm3 1.2-4.0 N MONOCYTE # (test code = MO#) 2.0 K/mm3 0.0-0.6 H EOSINOPHIL # (test code = EO#) 0.1 K/MM3 0.0-0.7 N BASOPHIL # (test code = BA#) 0.2 K/mm3 0.0-0.2 N NUCLEATED RBC # (test code = 0.00 X10 3uL 0.00-0.01 N NRBC#) SEGMENTED NEUTROPHILS (test 84 % 50.0-70.0 H code = SEG) LYMPHOCYTE (test code = LYMPH) 6 % 20-40 L TOTAL CELLS COUNTED (test code 100 #CELLS = TCC) BAND NEUTROPHIL (test code = 2 % 1.0-4.0 N BAND) MONOCYTE (test code = MON) 8 % 0-10 N MORPHOLOGY COMMENT (test code = NM MOC) PLATELET ESTIMATE (test code = ADQ PLTEST) PLATELET MORPHOLOGY (test code NORMAL = PLTMORPH) [id number] 05:28:00 Test Item Value Reference Range Interpretation Comments GLUBED (test code = GLUBED) 132 mg/dL 70-110 H COMPREHENSIVE METABOLIC [id number] 05:12:00 Test Item Value Reference Range Interpretation Comments SODIUM (test code = NA) 135 mmol/l 134.0-147.0 N POTASSIUM (test code = K) 4.1 mmol/L 3.6-5.2 N CHLORIDE (test code = CL) 102 mmol/l 98.0-107.0 N CARBON DIOXIDE (test code = CO2) 25.9 mmol/l 21.0-33.0 N ANION GAP (test code = GAP) 11.2 0-20 N GLUCOSE (test code = GLU) 141 mg/dl 70.0-110.0 H BLOOD UREA NITROGEN (test code = 20 mg/dl 7.0-18.0 H BUN) CREATININE (test code = CREAT) 0.99 mg/dL 0.60-1.30 N GFR NON BLACK (test code = 80 mL/min 80-90 N GFRNONBLACK) GFR BLACK (test code = GFRBLACK) 97 mL/min 97-109 N TOTAL PROTEIN (test code = PROT) 4.4 GM/DL 6.0-8.1 L ALBUMIN (test code = ALB) 1.0 gm/dL 3.2-4.7 L CALCIUM (test code = CA) 6.7 mg/dl 8.0-10.5 L BILIRUBIN TOTAL (test code = 1.5 mg/dl 0.0-1.0 H BILT) SGOT/AST (test code = AST) 28 Units/L 15-37 N SGPT/ALT (test code = ALT) 24 Units/L 12.0-78.0 N ALKALINE PHOSPHATASE TOTAL (test 75 Units/L 50.0-136.0 N code = ALKP) [id number] 05:12:00 Test Item Value Reference Range Interpretation Comments MAGNESIUM (test code = MAG) 1.6 mg/dl 1.8-2.4 L [id number] 23:28:00 Test Item Value Reference Range Interpretation Comments GLUBED (test code = GLUBED) 119 mg/dL 70-110 H - XR CHEST 1 [id number] 17:29:00 [facility] : 1955 Sex: M FAX: Baltazar Sunshine MD [phone] [place]: [facility]: [facility] FAX: Mary Valente MD [phone] Name: EDDI MCGEE [facility] : 1955 Age/S: 66/M [address] [facility] Unit #: [id number] Loc: E.03 [place], [place] Phys: [place] [id number] Acct: [id number] Dis Date: Status: ADM IN PHONE #: [phone] Exam Date: 10/17/20211721 FAX #: [phone] Reason: POST CHEST TUBE INSERTION EXAMS: CPT CODE: [id number] XR CHEST 1 V [id number] CLINICAL HISTORY: POST CHEST TUBE INSERTION. LOCATION: A1 FINDINGS: Comparison is made with a previous study dated October 16, 2021. A portable AP view of the chest is dated 10/17/2021 no 1721 hours. The cardiomediastinal silhouette is within normal size limits. Endotracheal tube has been placed in appropriate position with its tip approximately 2.3 cm superior to the wyatt. Nasogastric tube has been placed and appears appropriately positioned although its tip is excluded from the image. 2 right chest tubes have been placed. The right central line remains in place with its tip overlying the distal SVC. There is a 20% pneumothorax at the lateral right lower chest. There is moderate consolidation at the right lower lung with diffuse mild infiltrates also noted within the right mid and upper lung. No pleural effusions are evident. There is mild subcutaneous emphysema at the lateral right chest. No acute skeletal or soft tissue abnormalities are otherwise identified. IMPRESSION: 1. Tubes and lines appear appropriately positioned as described above. 2. There is a 20% pneumothorax at the lateral right lower chest with chest tube in place. 3. There is stable moderate con solidation at the right lower lung with mild infiltrates also noted at the right mid and upper lung. at 1727 Reported and signed by: Boyd Klein M.D. CC: Baltazar Henson MD; Mary Kidd MD Technologist: MOLLY ARMSTRONG TrnscrdDate/Time/By: 10/17/2021 (9692) : By: [email or web address] PAGE 1 Signed Report FAX: Baltazar Sunshine MD [phone] [place]: St: [facility] FAX: Mary Valente MD [phone] Name: EDDI MCGEE [facility] : 1955 Age/S: 66/M [address] [facility] Unit #: [id number] Loc: E.[address] [place], [place]: [place] [address] Acct: [id number] Dis Date: Status: ADM IN PHONE #: [phone] Exam Date: 10/17/2021 1722 FAX #: [phone] Reason: POST CHEST TUBE INSERTION EXAMS: CPT CODE: [id number] XR CHEST 1 V 49076 (Continued) Orig Print D/T: S: 10/17/2021 (1732) PAGE 2 Signed ReportCoronavirus 2018 nCoV [id number] 10:08:00 Test Item Value Reference Range Interpretation Comments Coronavirus 2018 Negative NEGATIVE Negative re sults should be nCoV Bedside (test treated a s presumptive and code = ifinconsistent with [id number]) clinical signs and symptoms, or ne cessaryfor patient managem ent, should be tested with an alternativemole cular assay. Negative result s do not preclude [id number] tion and should not be u sed as the sole basis forp atient management deci sions. Negative result s should beconsidered in the context of a patient's recent exposures,histo ry, presence of clinical sig ns and symptoms consis tentwith COVID-19. REJECTED/RECEIVE SWAB AFTER ONE HOUR OF COLLECTION/ E.LAB.KKP1 10/17/21 0930.NOTIFIED BRAX[place]..COMPREHENSIVE METABOLIC [id number] 06:24:00 Test Item Value Reference Range Interpretation Comments SODIUM (test code = NA) 132 mmol/l 134.0-147.0 L POTASSIUM (test code = K) 3.5 mmol/L 3.6-5.2 L CHLORIDE (test code = CL) 92 mmol/l 98.0-107.0 L CARBON DIOXIDE (test code = CO2) 35.8 mmol/l 21.0-33.0 H ANION GAP (test code = GAP) 7.7 0-20 N GLUCOSE (test code = GLU) 99 mg/dl 70.0-110.0 N BLOOD UREA NITROGEN (test code = 18 mg/dl 7.0-18.0 N BUN) CREATININE (test code = CREAT) 0.92 mg/dL 0.60-1.30 N GFR NON BLACK (test code = 88 mL/min 80-90 N GFRNONBLACK) GFR BLACK (test code = GFRBLACK) 106 mL/min 97-109 N TOTAL PROTEIN (test code = PROT) 5.8 gm/dL 6.4-8.2 L ALBUMIN (test code = ALB) 1.5 gm/dl 3.2-4.7 L CALCIUM (test code = CA) 7.6 mg/dl 8.0-10.5 L BILIRUBIN TOTAL (test code = 1.7 mg/dl 0.0-1.0 H BILT) SGOT/AST (test code = AST) 28 Units/L 15-37 N SGPT/ALT (test code = ALT) 24 Units/L 12.0-78.0 N ALKALINE PHOSPHATASE TOTAL (test 102 Units/L 50.0-136.0 N code = ALKP) [id number] 06:24:00 Test Item Value Reference Range Interpretation Comments MAGNESIUM (test code = MAG) 1.5 mg/dl 1.8-2.4 L PROTHROMBIN [id number] 06:09:00 Test Item Value Reference Range Interpretation Comments PROTHROMBIN TIME 18.1 SECONDS 9.9-12.8 H PATIENT (test code = PTP) INTERNATIONAL NORMAL 1.5 0.89-1.14 H THE INR IS TO BE USED RATIO (test code = ONLY FOR MONITORING INR) ORAL ANTICOAGULANTTH ERAPY. THE FOLLOWING A RE SUGGESTED RANGE S FROM [facility] LEGE OF CHEST PHYSICIANS:JEANETTE CATION INR VALUEPROPHY LAXIS OF VENOUS THROM BOSIS (ORTHOPEDIC AIME KESHA) 2.0 - 3.0PROPHY LAXIS OF VENOUS THROM BOSIS (OTHER THAN HIG H-RISK SURGERY) 2.0 - 3.0TREATMENT OF DEEP VEIN THROMBOSIS OR PULMONARY EMBOL ISM 2.0 - 3.0PREVENTION OF SYSTEMIC EMBOLI SM TISSUE HEART VA LVES 2.0 - 3.0 ACUTE MYOCARDIAL INFA RCTION (TO PREVENT SYS TEMIC EMBOLISM) 2.0 - 3.0 ACUTE MYOCARDIA L INFARCTION (TO PREVENT RECURRENT INFAR CT) 2.5 - 3.0 VALVULAR HEART DISEASE 2.0 - 3 .0 ATRIAL FIBRILAT ION 2.0 - 3.0BILEAFLET MECHANICAL VALV E IN AORTIC POSITION 2.0 - 3.0MECHANICAL PROSTHETIC VALV ES (HIGH RISK) 2.5 - 3.5PRESENCE OF LUPUS ANTICOAGULANT O R ANTIPHOSPHOLIPI D ANTIBODIES 2.5 - 3.5 Specimen comments: [facility] [id number] 06:06:00 Test Item Value Reference Range Interpretation Comments WHITE BLOOD CELL (test code = 7.8 K/mm3 4.5-11.0 N WBC) RED BLOOD CELL (test code = 3.36 M/mm3 4.40-5.90 L RBC) HEMOGLOBIN (test code = HGB) 11.3 gm/dL 13.0-17.0 L HEMATOCRIT (test code = HCT) 33.6 % 36.0-48.0 L MEAN CELL VOLUME (test code = 100.0 UM3 80.0-94.0 H MCV) MEAN CELL HGB (test code = MCH) 33.6 UUG 25.5-32.5 H MEAN CELL HGB CONCETRATION 33.6 gm/dL 29.0-35.5 N (test code = MCHC) RED CELL DISTRIBUTION WIDTH 14.9 % 11.5-15.0 N (test code = RDW) RED CELL DISTRIBUTION WIDTH SD 54.9 fL 34.8-50.2 H (test code = RDW-SD) PLATELET COUNT (test code = 52 K/mm3 150-400 L PLT) MEAN PLATELET VOLUME (test code 9.0 fl 7.4-10.4 N = MPV) NEUTROPHIL % (test code = NT%) 81.4 % 49.0-76.0 H IMMATURE GRANULOCYTE % (test 0.9 % 0.0-0.4 H code = IG%) LYMPHOCYTE % (test code = LY%) 7.6 % 23.0-38.0 L MONOCYTE % (test code = MO%) 8.7 % 1.0-10.0 N EOSINOPHIL % (test code = EO%) 0.9 % 1.0-5.0 L BASOPHIL % (test code = BA%) 0.5 % 0.0-1.0 N NUCLEATED RBC % (test code = 0.0 % 0.0-0.1 N NRBC%) NEUTROPHIL # (test code = NT#) 6.3 K/mm3 2.4-6.3 N IMMATURE GRANULOCYTE # (test 0.07 x10 3/uL 0.00-0.07 N code = IG#) LYMPHOCYTE # (test code = LY#) 0.6 K/mm3 1.2-4.0 L MONOCYTE # (test code = MO#) 0.7 K/mm3 0.0-0.6 H EOSINOPHIL # (test code = EO#) 0.1 K/MM3 0.0-0.7 N BASOPHIL # (test code = BA#) 0.0 K/mm3 0.0-0.2 N NUCLEATED RBC # (test code = 0.00 X10 3uL 0.00-0.01 N NRBC#) - XR CHEST 2 [id number] 10:48:00 [facility] 1955 Sex: M FAX: Jocelyn Modi MD [phone] [place]: St: ADM FAX: Mary Valente MD [phone] ------- Name: EDDI MCGEE [facility] : 1955 Age/S: 66/M [address] [facility]: [id number] Loc: [address] [place], [place]: [place] [address] Acct: [id number] Dis Date: Status: ADM IN PHONE #: [phone] Exam Date: 10/16/2021 1028 FAX #: [phone] Reason: SURGERY THORACOTOMY TOMORROW EXAMS: CPT CODE: [id number] XR CHEST 2 V 94957 Site ID: [id number] INDICATION: Preoperative for thoracotomy COMPARISON: Chest x-ray 4 hours prior IMPRESSION: Loculated dense right basilar effusion/empyema with smooth pleural thickening and partially tethered lung within the right lung base redemonstrated. Left lung is clear. Small bore right basilar chest tube remains in place. at 1042 Reported and signed by: Mihai Alejo M.D. CC: Jocelyn Sunshine MD;Mary Kidd MD Technologist: KEELY ADAME Trnscrd Date/Time/By: 10/16/2021 (3777) : By: [email or web address] PAGE 1 Signed Report FAX: Jocelyn Modi MD [phone] [place]: St: ADM FAX: Mary Valente MD [phone] Name: EDDI MCGEE [facility] : 1955 Age/S: 66/M [address] [facility] Unit #: [id number] Loc: [address] [place], [place]: [place] [address] Acct: [id number] Dis Date: Status: ADM IN PHONE #: [phone] Exam Date: 10/16/2021 1028 FAX #: [phone] Reason: SURGERY THORACOTOMY TOMORROW EXAMS: CPT CODE: [id number] XR CHEST 2 V 34393 (Continued) Orig Print D/T: S: 10/16/2021 (1052) PAGE 2 Signed Report- XR CHEST 1 V 2021-10-16 08:16:00 [facility] : 1955 Sex: M FAX: Baltazar Sunshine MD [phone] [place]: St: [facility] FAX: Mary Valente MD [phone] Name: ARELYEDDI [facility] : 1955 Age/S: 66/M [address] [facility] Unit #: [id number] Loc: [address] Phys: [place] [address] Acct: [id number] Dis Date: Status: ADM IN PHONE #: [phone] Exam Date: 10/16/2021612 FAX #: [phone] Reason: sob EXAMS: CPT CODE: [id number] XR CHEST 1V 65569 EXAM: Portable chest x-ray Dictation location: B2 COMPARISON: Chest x-ray on 10/15/2021 INDICATION: sob DISCUSSION: The right subclavian central venous catheter is unchanged in position. A moderate size loculated right pleural effusion is again noted, with a right-sided smallbore pigtail chest tube in place. Superimposed atelectasis or pneumonia at the right lung base is likely given the ipsilateral mediastinal shift. The cardiac silhouette is partially obscured but grossly within normal limits. No acute bony abnormalities are identified. IMPRESSION: Loculated moderate size right pleural effusion, not significantly changed. A small bore right-sided chest tube is in place. No pneumothoraxis seen. Atelectasis or pneumonia at the right lung base is likely. Findings are not significantly changed compared to one day prior. at 0816 Reported and signed by: Rogelio Brice M.D. CC: Baltazar Henson MD; Mary Kidd MD Technologist: Azuro [facility] Date/Time/By: 10/16/2021 (0816) : By: [email or web address] PAGE 1 Signed Report FAX: Baltazar Sunshine MD [phone] [place]: St: ADM FAX: Mary Valente MD [phone] Name: EDDI MCGEE [facility] : 1955 Age/S: 66/M [address] [facility] Unit #: [id number] Loc: [address] Phys: [place] [address] Acct: [id number] Dis Date: Status: ADM IN PHONE #: [phone] Exam Date: 10/16/2021612 FAX #: [phone] Reason: sob EXAMS: CPT CODE: [id number] XR CHEST 1 [id number] (Continued) Orig Print D/T: S: 10/16/2021 (5619) PAGE 2 Signed [id number] 07:34:00 Test Item Value Reference Range Interpretation Comments GLUBED (test code = GLUBED) 83 mg/dL 70-110 N COMPREHENSIVE METABOLIC [id number] 07:18:00 Test Item Value Reference Range Interpretation Comments SODIUM (test code = NA) 130 mmol/l 134.0-147.0 L POTASSIUM (test code = K) 3.9 mmol/L 3.6-5.2 N CHLORIDE (test code = CL) 93 mmol/l 98.0-107.0 L CARBON DIOXIDE (test code = CO2) 35.9 mmol/l 21.0-33.0 H ANION GAP (test code = GAP) 4.0 0-20 N GLUCOSE (test code = GLU) 88 mg/dl 70.0-110.0 N BLOOD UREA NITROGEN (test code = 21 mg/dl 7.0-18.0 H BUN) CREATININE (test code = CREAT) 0.85 mg/dL 0.60-1.30 N GFR NON BLACK (test code = 96 mL/min 80-90 H GFRNONBLACK) GFR BLACK (test code = GFRBLACK) 116 mL/min 97-109 H TOTAL PROTEIN (test code = PROT) 6.2 gm/dL 6.4-8.2 L ALBUMIN (test code = ALB) 1.7 gm/dl 3.2-4.7 L CALCIUM (test code = CA) 7.5 mg/dl 8.0-10.5 L BILIRUBIN TOTAL (test code = 2.1 mg/dl 0.0-1.0 H BILT) SGOT/AST (test code = AST) 33 Units/L 15-37 N SGPT/ALT (test code = ALT) 30 Units/L 12.0-78.0 N ALKALINE PHOSPHATASE TOTAL (test 124 Units/L 50.0-136.0 N code = ALKP) [id number] 07:18:00 Test Item Value Reference Range Interpretation Comments MAGNESIUM (test code = MAG) 1.8 mg/dl 1.8-2.4 N [id number] 07:16:00 Test Item Value Reference Range Interpretation Comments AMMONIA (test code = AMM) 11.0 MCMOL/L 11.0-32.0 N CBC W/AUTO [id number] 07:03:00 Test Item Value Reference Range Interpretation Comments WHITE BLOOD CELL (test code = 10.8 K/mm3 4.5-11.0 N WBC) RED BLOOD CELL (test code = 3.80 M/mm3 4.40-5.90 L RBC) HEMOGLOBIN (test code = HGB) 12.6 gm/dL 13.0-17.0 L HEMATOCRIT (test code = HCT) 37.7 % 36.0-48.0 N MEAN CELL VOLUME (test code = 99.2 UM3 80.0-94.0 H MCV) MEAN CELL HGB (test code = MCH) 33.2 UUG 25.5-32.5 H MEAN CELL HGB CONCETRATION 33.4 gm/dL 29.0-35.5 N (test code = MCHC) RED CELL DISTRIBUTION WIDTH 15.2 % 11.5-15.0 H (test code = RDW) RED CELL DISTRIBUTION WIDTH SD 54.8 fL 34.8-50.2 H (test code = RDW-SD) PLATELET COUNT (test code = 52 K/mm3 150-400 L PLT) MEAN PLATELET VOLUME (test code 8.9 fl 7.4-10.4 N = MPV) NEUTROPHIL % (test code = NT%) 82.2 % 49.0-76.0 H IMMATURE GRANULOCYTE % (test 1.0 % 0.0-0.4 H code = IG%) LYMPHOCYTE % (test code = LY%) 7.0 % 23.0-38.0 L MONOCYTE % (test code = MO%) 8.5 % 1.0-10.0 N EOSINOPHIL % (test code = EO%) 0.8 % 1.0-5.0 L BASOPHIL % (test code = BA%) 0.5 % 0.0-1.0 N NUCLEATED RBC % (test code = 0.0 % 0.0-0.1 N NRBC%) NEUTROPHIL # (test code = NT#) 8.9 K/mm3 2.4-6.3 H IMMATURE GRANULOCYTE # (test 0.11 x10 3/uL 0.00-0.07 H code = IG#) LYMPHOCYTE # (test code = LY#) 0.8 K/mm3 1.2-4.0 L MONOCYTE # (test code = MO#) 0.9 K/mm3 0.0-0.6 H EOSINOPHIL # (test code = EO#) 0.1 K/MM3 0.0-0.7 N BASOPHIL # (test code = BA#) 0.1 K/mm3 0.0-0.2 N NUCLEATED RBC # (test code = 0.00 X10 3uL 0.00-0.01 N NRBC#) BASIC METABOLIC [id number] 08:15:00 Test Item Value Reference Range Interpretation Comments SODIUM (test code = NA) 131 mmol/l 134.0-147.0 L POTASSIUM (test code = K) 3.7 mmol/L 3.6-5.2 N CHLORIDE (test code = CL) 95 mmol/l 98.0-107.0 L CARBON DIOXIDE (test code = CO2) 33.1 mmol/l 21.0-33.0 H ANION GAP (test code = GAP) 6.6 0-20 N GLUCOSE (test code = GLU) 89 mg/dl 70.0-110.0 N BLOOD UREA NITROGEN (test code = 20 mg/dl 7.0-18.0 H BUN) CREATININE (test code = CREAT) 0.78 mg/dL 0.60-1.30 N GFR NON BLACK (test code = 106 mL/min 80-90 H GFRNONBLACK) GFR BLACK (test code = GFRBLACK) 128 mL/min 97-109 H CALCIUM (test code = CA) 7.3 mg/dl 8.0-10.5 L CBC W/AUTO [id number] 07:32:00 Test Item Value Reference Range Interpretation Comments WHITE BLOOD CELL (test code = 11.0 K/mm3 4.5-11.0 N WBC) RED BLOOD CELL (test code = 3.60 M/mm3 4.40-5.90 L RBC) HEMOGLOBIN (test code = HGB) 12.1 gm/dL 13.0-17.0 L HEMATOCRIT (test code = HCT) 36.1 % 36.0-48.0 N MEAN CELL VOLUME (test code = 100.3 UM3 80.0-94.0 H MCV) MEAN CELL HGB (test code = MCH) 33.6 UUG 25.5-32.5 H MEAN CELL HGB CONCETRATION 33.5 gm/dL 29.0-35.5 N (test code = MCHC) RED CELL DISTRIBUTION WIDTH 14.6 % 11.5-15.0 N (test code = RDW) RED CELL DISTRIBUTION WIDTH SD 53.8 fL 34.8-50.2 H (test code = RDW-SD) PLATELET COUNT (test code = 52 K/mm3 150-400 L PLT) MEAN PLATELET VOLUME (test code 9.1 fl 7.4-10.4 N = MPV) NEUTROPHIL % (test code = NT%) 83.8 % 49.0-76.0 H IMMATURE GRANULOCYTE % (test 1.2 % 0.0-0.4 H code = IG%) LYMPHOCYTE % (test code = LY%) 6.0 % 23.0-38.0 L MONOCYTE % (test code = MO%) 7.9 % 1.0-10.0 N EOSINOPHIL % (test code = EO%) 0.6 % 1.0-5.0 L BASOPHIL % (test code = BA%) 0.5 % 0.0-1.0 N NUCLEATED RBC % (test code = 0.0 % 0.0-0.1 N NRBC%) NEUTROPHIL # (test code = NT#) 9.2 K/mm3 2.4-6.3 H IMMATURE GRANULOCYTE # (test 0.13 x10 3/uL 0.00-0.07 H code = IG#) LYMPHOCYTE # (test code = LY#) 0.7 K/mm3 1.2-4.0 L MONOCYTE # (test code = MO#) 0.9 K/mm3 0.0-0.6 H EOSINOPHIL # (test code = EO#) 0.1 K/MM3 0.0-0.7 N BASOPHIL # (test code = BA#) 0.1 K/mm3 0.0-0.2 N NUCLEATED RBC # (test code = 0.00 X10 3uL 0.00-0.01 N NRBC#) - [facility] 1 [id number] 02:08:00 [facility] : 1955 Sex: M FAX: Baltazar Sunshine MD [phone] [place]: St: [facility] FAX: Mary Valente MD [phone] Name: EDDI MCGEE [facility] : 1955 Age/S: 66/M [address] [facility] Unit #: [id number] Loc: [address] [place] [address] Phys: [place] [address] Acct: [id number] Dis Date: Status: ADM IN PHONE #: [phone] Exam Date: 10/15/2021 0125 FAX #: [phone] Reason: sob EXAMS: CPT CODE: [id number] XR CHEST 1V 84321 HISTORY: Shortness of breath Location: C3 COMPARISON:10/14/2021 FINDINGS: Right approach central line is again noted. Right-sided pleural effusion is again demonstrated. Right perihilar opacity is present. Left lung remains clear. No pneumothorax. IMPRESSION: 1. Right pleural effusion with right perihilar opacity compatible with edema and/or pneumonia. at 0208 Reported and signed by: Manuel Ramirez M.D. CC: Baltazar Henson MD; Mary Vila MD Technologist: MOLLY ARMSTRONG Trnscrd Date/Time/By: 10/15/2021 (0208) : By: [email or web address] PAGE 1 Signed Report FAX: Baltazar Sunshine MD [phone] [place]: St: [facility] FAX: Mary Valente MD [phone] Name: EDDI MCGEE [facility] : 1955 Age/S: 66/M [address] [place] Unit #: [id number] Loc: [address] [place] [address] Phys: [place] [address] Acct: [id number] Dis Date: Status: ADM IN PHONE #: [phone] Exam Date: 10/15/2021 0125 FAX #: [phone] Reason: sob EXAMS: CPT CODE: [id number] XR CHEST 1 V 91613 (Continued) Orig Print D/T: S: 10/15/2021 (021) PAGE 2 Signed Report- XR CHEST 1 [id number] 15:12:00 [facility] : 1955 Sex: M FAX: Poncho Baldwin MD [phone] [place]: St: ADM FAX: Mary Valente MD [phone] --------- Name: EDDI MCGEE Hal [facility] : 1955 Age/S: 66/M [address] [facility] Unit #: [id number] Loc: [address] [place], [place]: [place] [address] Acct: [id number] Dis Date: Status: ADM IN PHONE #: [phone] Exam Date: 10/14/2021 1358 FAX #: [phone] Reason: CENTRAL LINE PLACEMENT EXAMS: CPT CODE: [id number] XR CHEST 1 V 49762 C3 TIME OF STUDY: 10/14/2021 1:48 PM REASON FOR EXAM: CENTRAL LINE PLACEMENT COMPARISON: Chest radiograph from the same date at 5:00 AM FINDINGS: AP view of the chest wasobtained. Support devices: Right subclavian approach central venous catheter in place with the tip in the mid SVC. Lungs: Hazy right lung opacities are present. Pleura: No pneumothorax.Stable right pleural effusion. Heart and Mediastinum: Obscured by overlying opacities. Bones: Unchanged regional skeletal structures. IMPRESSION: 1. Right central venous catheter in place with no pneumothorax. Otherwise unchanged chest radiograph. at 1512 Reported and signed by: Dre Plaza M.D. CC: Poncho Huynh MD; Mary Kidd MD Technologist: DOROTHY SANON Trng[place] Date/Time/By: 10/14/2021 (1511) : By: [email or web address] PAGE 1 Signed Report FAX: Poncho Baldwin MD [phone] [place]: St: [facility] FAX: Mary Valente MD [phone] Name: EDDI MCGEE [facility] : 1955 Age/S: 66/M [address] [facility] [place] Unit #: [id number] Loc: [address] [place], [place]: [place] [address] Acct: [id number] Dis Date: Status: ADM IN PHONE #: [phone] Exam Date: 10/14/2021 1358 FAX #: [phone] Reason: CENTRAL LINE PLACEMENT EXAMS: CPT CODE: [id number] CHEST 1 V 17093 (Continued) Orig Print D/T: S: 10/14/2021 (151) PAGE 2 Signed Report- XR CHEST 1 [id number] 08:05:00 [facility] : 1955 Sex: M FAX: Baltazar Sunshine MD [phone] [place]: St: [facility] FAX: Mary Valente MD [phone] Name: EDDI MCGEE [facility] : 1955 Age/S: 66/M [address] [facility] Unit #: [id number] Loc: [address] [place], [place]: [place] [address] Acct: [id number] Dis Date: Status: ADM IN PHONE #: [phone] Exam Date: 10/14/2021 0743 FAX #: [phone] Reason: sob EXAMS: CPT CODE: [id number] XR CHEST 1V 85558 EXAM: - XR CHEST 1 V LOCATION: C3 HISTORY: sob COMPARISON: prior day FINDINGS: Single view of the chest. No indwelling lines/tubes. No pneumothorax. Unchanged small right pleural effusion and i nfrahilar linear opacities. The mediastinal contours are unchanged. IMPRESSION: Unchanged exam. at 0805 Reported and signed by: James Ellsworth M.D. CC: Baltazar Henson MD; Mary Kidd MD Technologist: DOROTHY SANON Tr[place] Date/Time/By: 10/14/2021 (804) : By: [email or web address] PAGE 1 Signed Report FAX: Baltazar Sunshine MD [phone] [place]: St: ADM FAX: Mary Valente MD [phone] Name: EDDI MCGEE [facility] : 1955 Age/S: 66/M [address] [facility] Unit #: [id number] Loc: [address] [place]: [place] [address] Acct: [id number] Dis Date: Status: ADM IN PHONE #: [phone] Exam Date: 10/14/2021 0743 FAX #: [phone] Reason: sob EXAMS: CPT CODE: [id number] XR CHEST 1 V 97040 (Continued) Orig Print D/T: S: 10/14/2021 (0808) PAGE 2 Signed ReportCBC W/AUTO [id number] 05:38:00 Test Item Value Reference Range Interpretation Comments WHITE BLOOD CELL (test code = 13.4 K/mm3 4.5-11.0 H WBC) RED BLOOD CELL (test code = 4.02 M/mm3 4.40-5.90 L RBC) HEMOGLOBIN (test code = HGB) 13.2 gm/dL 13.0-17.0 N HEMATOCRIT (test code = HCT) 39.1 % 36.0-48.0 N MEAN CELL VOLUME (test code = 97.3 UM3 80.0-94.0 H MCV) MEAN CELL HGB (test code = MCH) 32.8 UUG 25.5-32.5 H MEAN CELL HGB CONCETRATION 33.8 gm/dL 29.0-35.5 N (test code = MCHC) RED CELL DISTRIBUTION WIDTH 14.9 % 11.5-15.0 N (test code = RDW) RED CELL DISTRIBUTION WIDTH SD 53.1 fL 34.8-50.2 H (test code = RDW-SD) PLATELET COUNT (test code = 75 K/mm3 150-400 L PLT) MEAN PLATELET VOLUME (test code 9.3 fl 7.4-10.4 N = MPV) NEUTROPHIL % (test code = NT%) 84.7 % 49.0-76.0 H IMMATURE GRANULOCYTE % (test 1.9 % 0.0-0.4 H code = IG%) LYMPHOCYTE % (test code = LY%) 5.2 % 23.0-38.0 L MONOCYTE % (test code = MO%) 6.8 % 1.0-10.0 N EOSINOPHIL % (test code = EO%) 1.1 % 1.0-5.0 N BASOPHIL % (test code = BA%) 0.3 % 0.0-1.0 N NUCLEATED RBC % (test code = 0.0 % 0.0-0.1 N NRBC%) NEUTROPHIL # (test code = NT#) 11.3 K/mm3 2.4-6.3 H IMMATURE GRANULOCYTE # (test 0.26 x10 3/uL 0.00-0.07 H code = IG#) LYMPHOCYTE # (test code = LY#) 0.7 K/mm3 1.2-4.0 L MONOCYTE # (test code = MO#) 0.9 K/mm3 0.0-0.6 H EOSINOPHIL # (test code = EO#) 0.2 K/MM3 0.0-0.7 N BASOPHIL # (test code = BA#) 0.0 K/mm3 0.0-0.2 N NUCLEATED RBC # (test code = 0.00 X10 3uL 0.00-0.01 N NRBC#) MICROCYTOSIS (test code = MICR) 1+ PLATELET ESTIMATE (test code = DECREASED PLTEST) BASIC METABOLIC [id number] 02:23:00 Test Item Value Reference Range Interpretation Comments SODIUM (test code = NA) 128 mmol/l 134.0-147.0 L POTASSIUM (test code = K) 3.9 mmol/L 3.6-5.2 N CHLORIDE (test code = CL) 94 mmol/l 98.0-107.0 L CARBON DIOXIDE (test code = CO2) 28.8 mmol/l 21.0-33.0 N ANION GAP (test code = GAP) 9.1 0-20 N GLUCOSE (test code = GLU) 114 mg/dl 70.0-110.0 H BLOOD UREA NITROGEN (test code = 24 mg/dl 7.0-18.0 H BUN) CREATININE (test code = CREAT) 0.91 mg/dL 0.60-1.30 N GFR NON BLACK (test code = 89 mL/min 80-90 N GFRNONBLACK) GFR BLACK (test code = GFRBLACK) 107 mL/min 97-109 N CALCIUM (test code = CA) 7.9 mg/dl 8.0-10.5 L BASIC METABOLIC [id number] 18:34:00 Test Item Value Reference Range Interpretation Comments SODIUM (test code = NA) 128 mmol/l 134.0-147.0 L POTASSIUM (test code = K) 4.1 mmol/L 3.6-5.2 N CHLORIDE (test code = CL) 94 mmol/l 98.0-107.0 L CARBON DIOXIDE (test code = CO2) 30.5 mmol/l 21.0-33.0 N ANION GAP (test code = GAP) 7.6 0-20 N GLUCOSE (test code = GLU) 125 mg/dl 70.0-110.0 H BLOOD UREA NITROGEN (test code = 28 mg/dl 7.0-18.0 H BUN) CREATININE (test code = CREAT) 0.87 mg/dL 0.60-1.30 N GFR NON BLACK (test code = 93 mL/min 80-90 H GFRNONBLACK) GFR BLACK (test code = GFRBLACK) 113 mL/min 97-109 H CALCIUM (test code = CA) 8.1 mg/dl 8.0-10.5 N PROTHROMBIN [id number] 18:21:00 Test Item Value Reference Range Interpretation Comments PROTHROMBIN TIME 17.2 SECONDS 9.9-12.8 H PATIENT (test code = PTP) INTERNATIONAL NORMAL 1.4 0.89-1.14 H THE INR IS TO BE USED RATIO (test code = ONLY FOR MONITORING INR) ORAL ANTICOAGULANTTH ERAPY. THE FOLLOWING A RE SUGGESTED RANGE [facility]:JEANETTE CATION INR VALUEPROPHY LAXIS OF VENOUS THROM BOSIS (ORTHOPEDIC AIME KESHA) 2.0 - 3.0PROPHY LAXIS OF VENOUS THROM BOSIS (OTHER THAN HIG H-RISK SURGERY) 2.0 - 3.0TREATMENT OF DEEP VEIN THROMBOSIS OR PULMONARY EMBOL ISM 2.0 - 3.0PREVENTION OF SYSTEMIC EMBOLI SM TISSUE HEART VA LVES 2.0 - 3.0 ACUTE MYOCARDIAL INFA RCTION (TO PREVENT SYS TEMIC EMBOLISM) 2.0 - 3.0 ACUTE MYOCARDIA L INFARCTION (TO PREVENT RECURRENT INFAR CT) 2.5 - 3.0 VALVULAR HEART DISEASE 2.0 - 3 .0 ATRIAL FIBRILAT ION 2.0 - 3.0BILEAFLET MECHANICAL VALV E IN AORTIC POSITION 2.0 - 3.0MECHANICAL PROSTHETIC VALV ES (HIGH RISK) 2.5 - 3.5PRESENCE OF LUPUS ANTICOAGULANT O R ANTIPHOSPHOLIPI D ANTIBODIES 2.5 - 3.5 THROMBOPLASTIN TIME [id number] 18:21:00 Test Item Value Reference Range Interpretation Comments THROMBOPLASTIN TIME 31.20 SECONDS 25.86-36.07 N [facility] PARTIAL (test code = Therape utic Range - PTT) APTT of 55.8-85 .4 secondscorrelat es with plasma heparin concentration o f 0.2-0.4 u/mL Ne w range effective - CBC W/O [id number] 18:15:00 Test Item Value Reference Range Interpretation Comments WHITE BLOOD CELL (test code = WBC) 12.5 K/mm3 4.5-11.0 H RED BLOOD CELL (test code = RBC) 4.02 M/mm3 4.40-5.90 L HEMOGLOBIN (test code = HGB) 13.2 gm/dL 13.0-17.0 N HEMATOCRIT (test code = HCT) 39.3 % 36.0-48.0 N MEAN CELL VOLUME (test code = MCV) 97.8 UM3 80.0-94.0 H MEAN CELL HGB (test code = MCH) 32.8 UUG 25.5-32.5 H MEAN CELL HGB CONCETRATION (test 33.6 gm/dL 29.0-35.5 N code = MCHC) RED CELL DISTRIBUTION WIDTH (test 15.0 % 11.5-15.0 N code = RDW) PLATELET COUNT (test code = PLT) 60 K/mm3 150-400 L MEAN PLATELET VOLUME (test code = 9.2 fl 7.4-10.4 N MPV) COMPREHENSIVE METABOLIC [id number] 07:28:00 Test Item Value Reference Range Interpretation Comments SODIUM (test code = NA) 126 mmol/l 134.0-147.0 L POTASSIUM (test code = K) 4.6 mmol/L 3.6-5.2 N CHLORIDE (test code = CL) 93 mmol/l 98.0-107.0 L CARBON DIOXIDE (test code = CO2) 23.7 mmol/l 21.0-33.0 N ANION GAP (test code = GAP) 13.9 0-20 N GLUCOSE (test code = GLU) 123 mg/dl 70.0-110.0 H BLOOD UREA NITROGEN (test code = 31 mg/dl 7.0-18.0 H BUN) CREATININE (test code = CREAT) 0.94 mg/dL 0.60-1.30 N GFR NON BLACK (test code = 85 mL/min 80-90 N GFRNONBLACK) GFR BLACK (test code = GFRBLACK) 103 mL/min 97-109 N TOTAL PROTEIN (test code = PROT) 6.6 GM/DL 6.0-8.1 N ALBUMIN (test code = ALB) 1.9 gm/dL 3.2-4.7 L CALCIUM (test code = CA) 8.3 mg/dl 8.0-10.5 N BILIRUBIN TOTAL (test code = 1.9 mg/dl 0.0-1.0 H BILT) SGOT/AST (test code = AST) 45 Units/L 15-37 H SGPT/ALT (test code = ALT) 58 Units/L 12.0-78.0 N ALKALINE PHOSPHATASE TOTAL (test 149 Units/L 50.0-136.0 H code = ALKP) CBC W/AUTO [id number] 07:14:00 Test Item Value Reference Range Interpretation Comments WHITE BLOOD CELL (test code = 14.4 K/mm3 4.5-11.0 H WBC) RED BLOOD CELL (test code = 4.31 M/mm3 4.40-5.90 L RBC) HEMOGLOBIN (test code = HGB) 14.2 gm/dL 13.0-17.0 N HEMATOCRIT (test code = HCT) 44.1 % 36.0-48.0 N MEAN CELL VOLUME (test code = 102.3 UM3 80.0-94.0 H MCV) MEAN CELL HGB (test code = MCH) 32.9 UUG 25.5-32.5 H MEAN CELL HGB CONCETRATION 32.2 gm/dL 29.0-35.5 N (test code = MCHC) RED CELL DISTRIBUTION WIDTH 15.1 % 11.5-15.0 H (test code = RDW) RED CELL DISTRIBUTION WIDTH SD 57.2 fL 34.8-50.2 H (test code = RDW-SD) PLATELET COUNT (test code = 63 K/mm3 150-400 L PLT) MEAN PLATELET VOLUME (test code 9.2 fl 7.4-10.4 N = MPV) NEUTROPHIL % (test code = NT%) 86.2 % 49.0-76.0 H IMMATURE GRANULOCYTE % (test 2.3 % 0.0-0.4 H code = IG%) LYMPHOCYTE % (test code = LY%) 4.7 % 23.0-38.0 L MONOCYTE % (test code = MO%) 5.0 % 1.0-10.0 N EOSINOPHIL % (test code = EO%) 1.1 % 1.0-5.0 N BASOPHIL % (test code = BA%) 0.7 % 0.0-1.0 N NUCLEATED RBC % (test code = 0.0 % 0.0-0.1 N NRBC%) NEUTROPHIL # (test code = NT#) 12.4 K/mm3 2.4-6.3 H IMMATURE GRANULOCYTE # (test 0.33 x10 3/uL 0.00-0.07 H code = IG#) LYMPHOCYTE # (test code = LY#) 0.7 K/mm3 1.2-4.0 L MONOCYTE # (test code = MO#) 0.7 K/mm3 0.0-0.6 H EOSINOPHIL # (test code = EO#) 0.2 K/MM3 0.0-0.7 N BASOPHIL # (test code = BA#) 0.1 K/mm3 0.0-0.2 N NUCLEATED RBC # (test code = 0.00 X10 3uL 0.00-0.01 N NRBC#) - XR CHEST 1 [id number] 06:40:00 [facility] : 1955 Sex: M FAX: Baltazar Sunshine MD [phone] [place]: St: [facility] FAX: Mary Valente MD [phone] Name: EDDI MCGEE [facility] : 1955 Age/S: 66/M [address] [facility] Unit #: [id number] Loc: [address] [place], [place]: [place] [address] Acct: [id number] Dis Date: Status: ADM IN PHONE #: [phone] Exam Date: 10/13/2021638 FAX #: [phone] Reason: sob EXAMS: CPT CODE: [id number] XR CHEST 1V 02720 EXAM: - XR CHEST 1 V Location code:C3 HISTORY: sob COMPARISON: 10/12/2021 FINDINGS: Single APview of the chest is provided. Pigtail thoracostomy tube on the right is unchanged.Pleural-parenchymal opacity about the mid to lower right lung zone is similar. The left lung is clear. There is no pneumothorax. IMPRESSION: 1. No significant interval change. at 0640 Reported and signed by: Ubaldo Cho M.D. CC: Baltazar Henson MD; Mary Kidd MD Technologist: KEELY ADAME Trngard Date/Time/By: 10/13/2021 (0640) : By: [email or web address] PAGE 1 Signed Report FAX: Baltazar Sunshine MD [phone] [place]: St: ADM FAX:Mary Valente MD [phone] Name: EDDI MCGEE [facility] : 1955 Age/S: 66/M [address] [facility] Unit #: [id number] Loc: [address] Phys: [place] [address] Acct: [id number] Date: Status: ADM IN PHONE #: [phone] Exam Date: 10/13/2021638 FAX #: [phone] Reason: sob EXAMS: CPT CODE: [id number] XR CHEST 1 V 47758 (Continued) Orig Print D/T: S: 10/13/2021 (0643) PAGE 2 Signed ReportCBC W/AUTO [id number] 15:10:00 Test Item Value Reference Range Interpretation Comments WHITE BLOOD CELL (test code = 13.7 K/mm3 4.5-11.0 H WBC) RED BLOOD CELL (test code = 4.21 M/mm3 4.40-5.90 L RBC) HEMOGLOBIN (test code = HGB) 14.0 gm/dL 13.0-17.0 N HEMATOCRIT (test code = HCT) 42.0 % 36.0-48.0 N MEAN CELL VOLUME (test code = 99.8 UM3 80.0-94.0 H MCV) MEAN CELL HGB (test code = MCH) 33.3 UUG 25.5-32.5 H MEAN CELL HGB CONCETRATION 33.3 gm/dL 29.0-35.5 N (test code = MCHC) RED CELL DISTRIBUTION WIDTH 15.4 % 11.5-15.0 H (test code = RDW) RED CELL DISTRIBUTION WIDTH SD 57.0 fL 34.8-50.2 H (test code = RDW-SD) PLATELET COUNT (test code = 62 K/mm3 150-400 L PLT) MEAN PLATELET VOLUME (test code 9.4 fl 7.4-10.4 N = MPV) NEUTROPHIL % (test code = NT%) 87.1 % 49.0-76.0 H IMMATURE GRANULOCYTE % (test 2.5 % 0.0-0.4 H code = IG%) LYMPHOCYTE % (test code = LY%) 3.9 % 23.0-38.0 L MONOCYTE % (test code = MO%) 4.7 % 1.0-10.0 N EOSINOPHIL % (test code = EO%) 1.3 % 1.0-5.0 N BASOPHIL % (test code = BA%) 0.5 % 0.0-1.0 N NUCLEATED RBC % (test code = 0.0 % 0.0-0.1 N NRBC%) NEUTROPHIL # (test code = NT#) 12.0 K/mm3 2.4-6.3 H IMMATURE GRANULOCYTE # (test 0.34 x10 3/uL 0.00-0.07 H code = IG#) LYMPHOCYTE # (test code = LY#) 0.5 K/mm3 1.2-4.0 L MONOCYTE # (test code = MO#) 0.7 K/mm3 0.0-0.6 H EOSINOPHIL # (test code = EO#) 0.2 K/MM3 0.0-0.7 N BASOPHIL # (test code = BA#) 0.1 K/mm3 0.0-0.2 N NUCLEATED RBC # (test code = 0.00 X10 3uL 0.00-0.01 N NRBC#) PLATELET ESTIMATE (test code = DECREASED PLTEST) HARDSTICK PATIENT. NOTIFIED NURSE: ALDA 10/12/21 0945.BASIC METABOLIC [id number] 14:59:00 Test Item Value Reference Range Interpretation Comments SODIUM (test code = NA) 130 mmol/l 134.0-147.0 L POTASSIUM (test code = K) 4.4 mmol/L 3.6-5.2 N CHLORIDE (test code = CL) 96 mmol/l 98.0-107.0 L CARBON DIOXIDE (test code = CO2) 25.2 mmol/l 21.0-33.0 N ANION GAP (test code = GAP) 12.2 0-20 N GLUCOSE (test code = GLU) 146 mg/dl 70.0-110.0 H BLOOD UREA NITROGEN (test code = 31 mg/dl 7.0-18.0 H BUN) CREATININE (test code = CREAT) 1.01 mg/dL 0.60-1.30 N GFR NON BLACK (test code = 79 mL/min 80-90 L GFRNONBLACK) GFR BLACK (test code = GFRBLACK) 95 mL/min 97-109 L CALCIUM (test code = CA) 8.1 mg/dl 8.0-10.5 N HARDSTICK PATIENT. NOTIFIED NURSE: ALDA 10/12/21 0945.PT H/S.- CT CHEST W/O [id number] 10:43:00 [facility] : 1955 Sex: M FAX: Baltazar Sunshine MD [phone] [place]: St: [facility] FAX: Mary Valente MD [phone] Name: EDDI MCGEE [facility] : 1955 Age/S: 66/M [address] [facility] Unit: [id number] Loc: [address] Phys: [place] [address] Acct: [id number] Dis Date: Status: ADM IN PHONE #: [phone] Date: 10/12/2021 0955 FAX #: [phone] Reason: empyema EXAMS: CPT CODE: [id number] CT CHEST W/O CONTRAST 02837 EXAM: - CT CHEST W/O CONTRAST LOCATION: U19 TECHNIQUE: Serial axial CT images were obtained from the supraclavicular region to the adrenal glands without the administration of intravenous contrast. Phase(s): Non-contrast (attempted IV contrast administration failed) Reformats: Standard coronal and sagittal reformats. This exam was performed according to our departmental dose-optimization program, which includes automated exposure control, adjustment of the mA and/or kV according to patient size and/or use of iterative reconstruction technique. COMPARISON: CT abdomen and pelvis 10/11/2021. HISTORY: empyema FINDINGS: THYROID: Normal. LYMPHADENOPATHY: There is no supraclavicular or axillary lymphadenopathy. No enlarged mediastinal or hilar lymph nodes. AIRWAYS: Unremarkable. Air bronchograms noted at the right lung base. LUNGS/PLEURA: Right-sided empyema again noted with chest tube in place. The empyema is significantly decreased in size from prior with residual measuring approximately 8.3 x 4.0 x 10.4 cm. Small air-fluid level noted, likely sequelae of drainage catheter placement. Overlying atelectasis and consolidation noted in the dependent right middle lobe and right lower lobe. MEDIASTINUM: The heart and pericardium are unremarkable. The thoracic aorta is nonaneurysmal. Mi ld aortic atherosclerosis. Coronary artery calcifications are present. The pulmonary trunk is normalin size. The esophagus is grossly unremarkable. VISUALIZED ABDOMEN: Morphologic changes of chronic liver disease and sequelae of portal hypertension. SOFT TISSUES: Unremarkable. PAGE 1 Signed Report (CO NTINUED) FAX: Baltazar Sunshine MD [phone] [place]: St: ADM FAX: Mary Valente MD [phone] Name: EDDI MCGEE [facility] : 1955 Age/S: 66/M [address] [facility] Unit: [id number] Loc: [address] Phys: [place] [address] Acct: [id number] Dis Date: Status: ADM IN PHONE #:[phone] Exam Date: 10/12/202155 FAX #: [phone] Reason: empyema EXAMS: CPT CODE: [id number] CT CHEST W/O CONTRAST 94747 (Continued) BONES: Mild spinal degenerative changes noted. No acute osseous findings. IMPRESSION: 1. Status post chest tube placement within right-sided empyema, which issignificantly decreased in size from prior. Residual fluid component measures 8.3 x 4.0 x 10.4 cm. Overlying atelectasis and consolidation noted in the dependent right middle and lower lobes, with likely component of superimposed pulmonary infection. 2. Morphologic changes of chronic liver disease and sequelae of portal hypertension. at 1043 Reported and signed by: Taran Ly M.D. CC: Baltazar Henson MD; Mary Kidd MD Technologist:MOLLY KING; ABHIJEET PURVIS Trnscrd Dt/Tm: 10/12/2021 (1047) [email or web address] Orig Print D/T: S: 10/12/2021 (6166 PAGE 2 Signed Report- XR CHEST 1 [id number] 06:45:00 [facility] ED[facility] Hong : 1955 Sex: M FAX: Baltazar Sunshine MD [phone] [place]: St: [facility] FAX: Mary Valente MD [phone] Name: EDDI MCGEE [facility] : 1955 Age/S: 66/M [address] [facility] Unit #: [id number] Loc: [address] [place], [place]: [place] [address] Acct: [id number] Dis Date: Status: ADM IN PHONE #: [phone] Exam Date: 10/12/2021 0643 FAX #: [phone] Reason: sob EXAMS: CPT CODE: [id number] XR CHEST 1V 04168 EXAM: - XR CHEST 1 V Location code:C3 HISTORY: sob COMPARISON: 10/11/2021 FINDINGS: Single APview of the chest is provided. Right-sided thoracostomy tube is unchanged. Pleural-parenchymal opacit y at the right lung base is similar. The left lung is clear. There is no pneumothorax. Pression: 1. No significant interval change. at 0645 Reported and signed by: Ubaldo Cho M.D. CC: Baltazar Henson MD; Mary Kidd MD Technologist: ANALIA MILLER Trnscrd Date/Time/By: 10/12/2021 (0645) : By: [email or web address] 1 Signed Report FAX: Baltazar Sunshine MD [phone] [place]: St: ADM FAX: Mary Valente MD [phone] Name: EDDI MCGEE [facility] : 1955 Age/S: 66/M [address] [facility] Unit #: [id number] Loc: [place], [place]: [place] [address] Acct: [id number] Dis Date: Status:ADM IN PHONE #: [phone] Exam Date: 10/12/2021 0643 FAX #: [phone] Reason: sob EXAMS: CPT CODE: [id number] XR CHEST 1 V 65538 (Continued) Orig Print D/T: S: 10/12/2021 (0648) PAGE 2 Signed [id number] 18:51:00 Test Item Value Reference Range Interpretation Comments TROPONIN-I (test 0.02 NG/ML 0.00-0.06 N REFERENCE R AMANDA TROPONIN code = TROPI) I HEALTHY JEANETTE VIDUALS: <0.06 ng/mL R/O ISCHEMIA: 0.07 - 0.60 ng/mL CUT-OFF R AMANDA FOR AMI: 0.60 - 1.5 ng/mL - XR CHEST 1 [id number] 18:25:00 [facility] : 1955 Sex: M FAX: Melinda Singleton MD [place]: St: [facility] FAX: Mary Valente MD [phone] Name: EDDI MCGEE [facility] :1955 Age/S: 66/M [address] [facility] Unit #: [id number] Loc: [place], [place] [address] Acct: [id number] Dis Date: Status: ADM IN PHONE #: [phone] ExamDate: 10/11/20211809 FAX #: [phone] Reason: R/O DISLOCATION OF CHEST TUBE EXAMS: CPT CODE: [id number] XR CHEST 1 V 88121 C3 TIME OF STUDY: 10/11/2021 5:50 PM REASON FOR EXAM: R/O DISLOCATION OF CHEST TUBE COMPARISON: Chest radiograph from the same date at 11:00 AM. FINDINGS: AP view of the chest was obtained. Support devices: A small bore right chest tube is seen over the right hemithorax, and likely in the pleural space. Lungs: There is improved aeration of the right lung with reduced hazy right basilar opacities. Pleura: No pneumothorax. There is decreased right pleural effusion with moderate residual. Heart and Mediastinum: Normal cardiomediastinal silhouette and great vessels. Bones: Unchanged regional skeletal structures. IMPRESSION: 1. Decreased right pleural effusion post chest tube placement. No pneumothorax. at 1825 Reported and signed by: Dre Plaza M.D. CC: Melinda Rivera MD; Mary Kidd MD Technologist: LARA CAGLE [facility] Date/Time/By: 10/11/2021 (1824) : By: [email or web address] PAGE 1 Signed Report FAX: Melinda Singleton [place]: St: ADM FAX: Mary Valente MD [phone] Name: EDDI MCGEE [facility] : 1955 Age/S:66/M [address] [facility] Unit #: [id number] Loc: [place], [place]: [place] [address] Acct: [id number] Dis Date: Status: ADM IN PHONE #: [phone] Exam Date: 10/11/20211809 FAX #: [phone] Reason: R/O DISLOCATION OF CHEST TUBE EXAMS: CPT CODE: [id number] XR CHEST 1 V 02473 (Continued) Orig Print D/T: S: 10/11/2021 (1828) PAGE 2 Signed ReportFLUID [id number] 16:38:00 Test Item Value Reference Range Interpretation Comments FLUID PROTEIN 3.6 g/dL The reference range and other (test code = method PROTFL) performancespec ifications have not been establ ished for this body fluidtest. The test result must be integra britta into the clinicalcontext for interpretation. Specimen comments: [facility] 1Specimen comments: Lavender TopFLUID [id number] 16:38:00 Test Item Value Reference Range Interpretation Comments FLUID LDH 1736 IU/L The reference r amanda and other (test code = method performa ncespecifications LDHFL) have not been e stablished for this body fluid test. The test result must be integrated into the clinicalcon text for interpretation. Result is in International U nits/Liter Specimen comments: [facility] 1Specimen comments: Lavender TopPLEURAL FLD CELL [id number] 16:38:00 Test Item Value Reference Range Interpretation Comments PLEURAL FLD COLOR (test code = YELLOW COLPL) PLEURAL FLD APPEARANCE (test code = HAZY APPPL) PLEURAL FLD WBC (test code = WBCPL) 3400 MM3 0-1000 H PLEURAL FLD RBC (test code = RBCPL) 6000 MM3 0-50 H PLEURAL FLD POLY (test code = 93 % POLYPL) PLEURAL FLD LYMPHOCYTE (test code = 4 % LYMPHPL) PLEURAL FLD MONOCYTE (test code = 3 % MONOPL) TOTAL CELLS COUNTED ON DIFF (test 100 code = TOTCELLFL) Specimen comments: [facility] 1Specimen comments: Lavender TopPLERUAL FLD GLUCOSE 2021-10-11 16:38:00 Test Item Value Reference Range Interpretation Comments PLERUAL FLD 43 MG/DL 65-110 L The reference r amanda and other GLUCOSE (test method code = GLUPL) performancespe cifications have not been establ ished for this body fluidtest. The test result must be integra britta into the clinicalcontext for interpretation. Specimen comments: [facility] 1Specimen comments: Lavmary TopTROPONIN-I 2021-10-11 15:38:00 Test Item Value Reference Range Interpretation Comments TROPONIN-I (test 0.02 NG/ML 0.00-0.06 N REFERENCE R AMANDA TROPONIN code = TROPI) I HEALTHY JEANETTE VIDUALS: <0.06 ng/mL R/O ISCHEMIA: 0.07 - 0.60 ng/mL CUT-OFF R AMANDA FOR AMI: 0.60 - 1.5 ng/mL URINALYSIS [id number] 15:28:00 Test Item Value Reference Range Interpretation Comments UA COLOR (test code = COLU) YELLOW UA APPEARANCE (test code = CLEAR APPU) UA GLUCOSE DIPSTICK (test NORMAL mg/dl NORMAL code = DGLUU) UA BILIRUBIN DIPSTICK (test NEGATIVE mg/dL NEGATIVE code = BILU) UA KETONE DIPSTICK (test NEGATIVE mg/dl NEGATIVE code = KETU) UA SPECIFIC GRAVITY (test 1.020 1.000-1.030 code = SGU) UA BLOOD DIPSTICK (test NEGATIVE Goran/micL NEGATIVE code = LIZZY) UA PH DIPSTICK (test code = 5.0 5.0-9.0 ARNALDO) UA PROTEIN DIPSTICK (test NEGATIVE mg/dl NEGATIVE code = PROU) UA UROBILINIOGEN DIPSTICK NORMAL mg/dl NORMAL (test code = URO) UA NITRITE DIPSTICK (test NEGATIVE NEGATIVE code = MARIANNE) UA LEUKOCYTE ESTERASE NEGATIVE Jillian/micL NEGATIVE DIPSTICK (test code = LEUU) UA WBC (test code = WBCU) 0-3 WBC/HPF NONE UA RBC (test code = RBCU) 0-2 RBC/HPF 0-3 UA EPITHELIAL CELLS (test 2-5 EPI/HPF 0-3 A code = EPIU) UA BACTERIA (test code = FEW NONE BACU) UA MUCUS (test code = MUCU) 1+ Indication for culture: RiskForSepsis-no oth srcSpecimen Description: CLEAN CATCHUA RFLX MICR CULT IF [id number] 15:28:00 Test Item Value Reference Range Interpretation Comments UA CULTURE NEEDED? NO, WBC<10 Culture Chk Criteria not met, (test code = Criteria Urine Culture UACULT) cancelled. Indication for culture: RiskForSepsis-no oth srcSpecimen Description: CLEAN CATCHLACTIC ACID [id number] 14:33:00 Test Item Value Reference Range Interpretation Comments LACTIC ACID REPEAT (test code = 1.9 mmol/L 0.4-2.0 N LACTR) - CT ABD PELVIS [id number] 14:00:00 [facility] : 1955 Sex: M FAX: Melinda Singleton MD [place]: St: REG Name: EDDI MCGEE [facility] : 1955 Age/S: 66/M [address] [facility] Unit: [id number] Loc: [place], [place]: [place] [address] Acct: [id number] Dis Date: Status: REG ER PHONE #: [phone] Exam Date: 10/11/2021 1348 FAX #: [phone] Reason: hernia EXAMS: CPT CODE: [id number] CT ABD PELVIS W/CONT 03935 EXAM: - CT ABD PELVIS W/CONT LOCATION: C3 INDICATION: 66 years -old Male with hernia TECHNIQUE: Contrast - IV contrast was given. Nooral contrast was given Portal venous phase - abdomen and pelvis No delayed phase images were obtained. Reconstructions - coronal and sagittal planes This exam was performed according to our departmenta l dose-optimization program, which includes automated exposure control, adjustment of the mA and/or kV according to patient size and/or use of iterative reconstruction technique COMPARISON: None available at time of interpretation. FINDINGS: Statements: None. Thoracic: Moderate right pleural effusion.Several right lower and moderate right middle lobe consolidation noted. Hepatobiliary: The liver is cirrhotic. The gallbladder is distended. Stones and sludge identified at the gallbladder fundus. No biliary dilation. Pancreas: Normal. Spleen: Enlarged measuring 17.8 cm. Adrenals: Normal. Genitourinary: 2.6 cm cystlike lesion in the right kidney, no follow-up necessary. No hydronephrosis. Evaluation of the bladder is limited, but no obvious bladder abnormality is present. Gastrointestinal: No bowel obstruction or perienteric inflammation. The appendix is normal. Vascular: Splenorenal varices noted. Atherosclerotic calcifications are present. PAGE 1 Signed Report (CONTINUED) FAX: Melinad Singleton MD [place]: St: REG -- Name: EDDI MCGEE [facility] : 1955 Age/S: 66/M [address] [facility] Unit:[id number] Loc: [place], [place]: [place] [address] Acct: [id number] Dis Date: Status: REG ER PHONE #: [phone] Exam Date: 10/11/2021 1348 FAX #: [phone] Reason: hernia EXAM S: CPT CODE: [id number] CT ABD PELVIS W/CONT 45139 (Continued) Lymphatics: No enlarged lymph nodes by CT size criteria. Bones/Soft Tissues: No acute osseous findings. 2.6 cm fluid containing umbilical hernia. Peritoneum/Other: No extraluminal air. No extraluminal fluid. IMPRESSION: Cirrhosis, splenomegaly. No ascites. Moderate right pleural effusion. Severe right lower lobe and moderate right middlelobe consolidation. 2.6 cm fluid containing umbilical hernia. at 1400 Reported and signed by: James Ellsworth M.D. CC: Melinda Rivera MD Technologist: MOLLY KING Trnscrd Dt/Tm: 10/11/2021 (1400) Opal2 Orig Print D/T: S: 10/11/2021 (4584 PAGE 2 Signed ReportCOVID 19 Asymptomatic IH [id number] 13:35:00 Test Item Value Reference Range Interpretation Comments COVID 19 NEGATIVE NEGATIVE Negative result s should be Asymptomatic IH AG treated a s presumptive and (test code = ifinconsistent with COVNONPUIAG) clinical signs and symptoms, or ne cessaryfor patient managem ent, should be tested with an alternativemole cular assay. Negative results do not preclude IQNK-XyY-2meehq tion and should not be u sed as the sole basis forp atient management deci sions. Negative result s should beconsidered in the context of a pa tient's recent exposure s,history, presence of cli nical signs and symptoms consistentwith COVID-19. BASIC METABOLIC [id number] 12:37:00 Test Item Value Reference Range Interpretation Comments SODIUM (test code = NA) 131 mmol/l 134.0-147.0 L POTASSIUM (test code = K) 4.0 mmol/L 3.6-5.2 N CHLORIDE (test code = CL) 95 mmol/l 98.0-107.0 L CARBON DIOXIDE (test code = CO2) 23.7 mmol/l 21.0-33.0 N ANION GAP (test code = GAP) 16.3 0-20 N GLUCOSE (test code = GLU) 106 mg/dl 70.0-110.0 N BLOOD UREA NITROGEN (test code = 30 mg/dl 7.0-18.0 H BUN) CREATININE (test code = CREAT) 1.09 mg/dL 0.60-1.30 N GFR NON BLACK (test code = 72 mL/min 80-90 L GFRNONBLACK) GFR BLACK (test code = GFRBLACK) 87 mL/min 97-109 L CALCIUM (test code = CA) 8.8 mg/dl 8.0-10.5 N HEPATIC FUNCTION PANEL [id number] 12:37:00 Test Item Value Reference Range Interpretation Comments TOTAL PROTEIN (test code = PROT) 7.6 GM/DL 6.0-8.1 N ALBUMIN (test code = ALB) 2.4 gm/dL 3.2-4.7 L BILIRUBIN TOTAL (test code = 1.8 mg/dl 0.0-1.0 H BILT) BILIRUBIN DIRECT (test code = 0.8 mg/dl 0.0-0.3 H BILD) SGOT/AST (test code = AST) 104 Units/L 15-37 H SGPT/ALT (test code = ALT) 104 Units/L 12.0-78.0 H ALKALINE PHOSPHATASE TOTAL (test 215 Units/L 50.0-136.0 H code = ALKP) [id number] 12:37:00 Test Item Value Reference Range Interpretation Comments LIPASE (test code = LIP) 352 Units/L 65.0-230.0 H B-TYPE NATRIURETIC [id number] 12:37:00 Test Item Value Reference Range Interpretation Comments B-TYPE NATRIURETIC PEPTIDE (test 5.3 PG/ML 5-100 N code = BNP) CARDIAC ENZYMES [id number] 12:37:00 Test Item Value Reference Range Interpretation Comments CREATINE KINASE (CK) 66 Units/L 35-232 N (test code = CK) TROPONIN-I (test code 0.02 NG/ML 0.00-0.06 N REFERE NCE RANGE = TROPI) TROPONIN I HEAL THY INDIVIDUALS: <0 .06 ng/mL R/O ISCHE ONEIDA: 0.07 - 0.60 ng/ mL CUT-OFF RANGE F OR AMI: 0.60 - 1.5 ng/m L LACTIC [id number] 12:13:00 Test Item Value Reference Range Interpretation Comments LACTIC ACID (test code = LACT) 2.7 MMOL/L 0.4-2.0 H [id number] 12:06:00 Test Item Value Reference Range Interpretation Comments AMMONIA (test code = AMM) 4.3 MCMOL/L 11.0-32.0 L PROTHROMBIN [id number] 12:05:00 Test Item Value Reference Range Interpretation Comments PROTHROMBIN TIME 17.8 SECONDS 9.9-12.8 H PATIENT (test code = PTP) INTERNATIONAL NORMAL 1.5 0.89-1.14 H THE INR IS TO BE USED RATIO (test code = ONLY FOR MONITORING INR) ORAL ANTICOAGULANTTH ERAPY. THE FOLLOWING A RE SUGGESTED RANGE S FROM [facility] LEGE OF CHEST PHYSICIANS:JEANETTE CATION INR VALUEPROPHY LAXIS OF VENOUS THROM BOSIS (ORTHOPEDIC AIME KESHA) 2.0 - 3.0PROPHY LAXIS OF VENOUS THROM BOSIS (OTHER THAN HIG H-RISK SURGERY) 2.0 - 3.0TREATMENT OF DEEP VEIN THROMBOSIS OR PULMONARY EMBOL ISM 2.0 - 3.0PREVENTION OF SYSTEMIC EMBOLI SM TISSUE HEART VA LVES 2.0 - 3.0 ACUTE MYOCARDIAL INFA RCTION (TO PREVENT SYS TEMIC EMBOLISM) 2.0 - 3.0 ACUTE MYOCARDIA L INFARCTION (TO PREVENT RECURRENT INFAR CT) 2.5 - 3.0 VALVULAR HEART DISEASE 2.0 - 3 .0 ATRIAL FIBRILAT ION 2.0 - 3.0BILEAFLET MECHANICAL VALV E IN AORTIC POSITION 2.0 - 3.0MECHANICAL PROSTHETIC VALV ES (HIGH RISK) 2.5 - 3.5PRESENCE OF LUPUS ANTICOAGULANT O R ANTIPHOSPHOLIPI D ANTIBODIES 2.5 - 3.5 THROMBOPLASTIN TIME [id number] 12:05:00 Test Item Value Reference Range Interpretation Comments THROMBOPLASTIN TIME 31.40 SECONDS 25.86-36.07 N [place] d Lab PARTIAL (test code = Therape utic Range - PTT) APTT of 55.8-85 .4 secondscorrelat es with plasma heparin concentration o f 0.2-0.4 u/mL Ne w range effective - CBC W/AUTO [id number] 11:59:00 Test Item Value Reference Range Interpretation Comments WHITE BLOOD CELL (test code = 10.6 K/mm3 4.5-11.0 N WBC) RED BLOOD CELL (test code = 4.55 M/mm3 4.40-5.90 N RBC) HEMOGLOBIN (test code = HGB) 15.0 gm/dL 13.0-17.0 N HEMATOCRIT (test code = HCT) 44.0 % 36.0-48.0 N MEAN CELL VOLUME (test code = 96.7 UM3 80.0-94.0 H MCV) MEAN CELL HGB (test code = MCH) 33.0 UUG 25.5-32.5 H MEAN CELL HGB CONCETRATION 34.1 gm/dL 29.0-35.5 N (test code = MCHC) RED CELL DISTRIBUTION WIDTH 15.3 % 11.5-15.0 H (test code = RDW) RED CELL DISTRIBUTION WIDTH SD 53.9 fL 34.8-50.2 H (test code = RDW-SD) PLATELET COUNT (test code = 68 K/mm3 150-400 L PLT) MEAN PLATELET VOLUME (test code 9.7 fl 7.4-10.4 N = MPV) NEUTROPHIL % (test code = NT%) 87.1 % 49.0-76.0 H IMMATURE GRANULOCYTE % (test 2.5 % 0.0-0.4 H code = IG%) LYMPHOCYTE % (test code = LY%) 4.6 % 23.0-38.0 L MONOCYTE % (test code = MO%) 3.6 % 1.0-10.0 N EOSINOPHIL % (test code = EO%) 1.7 % 1.0-5.0 N BASOPHIL % (test code = BA%) 0.5 % 0.0-1.0 N NUCLEATED RBC % (test code = 0.0 % 0.0-0.1 N NRBC%) NEUTROPHIL # (test code = NT#) 9.2 K/mm3 2.4-6.3 H IMMATURE GRANULOCYTE # (test 0.26 x10 3/uL 0.00-0.07 H code = IG#) LYMPHOCYTE # (test code = LY#) 0.5 K/mm3 1.2-4.0 L MONOCYTE # (test code = MO#) 0.4 K/mm3 0.0-0.6 N EOSINOPHIL # (test code = EO#) 0.2 K/MM3 0.0-0.7 N BASOPHIL # (test code = BA#) 0.1 K/mm3 0.0-0.2 N NUCLEATED RBC # (test code = 0.00 X10 3uL 0.00-0.01 N NRBC#) - CHEST 1 [id number] 11:53:00 [facility] : 1955 Sex: M FAX: Melinda Singleton MD [place]: St: REG Name: EDDI MCGEE [facility] : 1955 Age/S: 66/M [address] [facility] #: [id number] Loc: [place], [place]: [place] [id number] Acct: [id number] Dis Date: Status: REG ER PHONE #: [phone] Exam Date: 10/11/2021 1141 FAX #: [phone] Reason: Code SEPSIS EXAMS: CPT CODE: [id number] XR CHEST 1 V 37191 EXAM: - XR CHEST 1 V LOCATION:C3 HISTORY: Code SEPSIS COMPARISON: None available at time of interpretation. FINDINGS: Single view of the chest. No indwelling lines or tubes. No pneumothorax. Moderate right pleural effusion is noted. The mediastinal contours are unremarkable/unchanged. No acute osseous findings are present. IMPRESSION: Moderate right pleural effusion. at 1153 Reported and signed by: James Ellsworth M.D. CC: Melinda Rivera MD Technologist: DOROTHY SANON Trnscrd Date/Time/By: 10/11/2021 (7183) : By: OpalHV2 PAGE 1 Signed Report FAX: Melinda Garcia MD [place]: St: REG Name: EDDI MCGEE [facility] : 1955 Age/S: 66/M [address] [facility] Unit #: [id number] Loc: [place], [place]: [place] [id number] Acct: [id number] Dis Date: Status: REG ER PHONE #: [phone] Exam Date: 10/11/2021 1141 FAX #: [phone] Reason: Code SEPSIS EXAMS: CPT CODE: [id number] XR CHEST 1 V 64865 (Continued) Orig Print D/T: S: 10/11/2021 (1157) PAGE 2 Signed ReportBLOOD CULTURE [id number] 12:31:49 Test Item Value Reference Range Interpretation Comments Blood Culture Coagulase negative Organism identified Workup (test Staphylococcus by DNA code = 600-7) probeAdditiona l work-up perform ed only per reques t. Culture plate(s ) will be saved until this date: - 10/13/21 Gram stain Isolated from Gram positive cocci (test code = anaerobic bottle in Anaerobi c bottle 664-3) Gram positive cocci [facility] [id number] 12:31:44 Test Item Value Reference Range Interpretation Comments Blood Culture-Aerobic No organisms No growth Previo us (test code = 64125-8) isolated prelim inary verified result was Culture In Progress on 10/06/2021 at 15 19 CDT Blood Culture positive. No growth AA Gram posit kashif Culture-Anaerobic See Blood Culture cocci in (test code = 09177-7) Workup for Anaero bic bottle additional Previous information. preliminary verified result was Culture In Progress on 10/05/2021 at 16 01 CDT Lab Interpretation Abnormal (test code = 68581-7) [facility]MINAL [id number] 12:26:48 Test Item Value Reference Range Interpretation Comments NT-proBNP (test code 1080 pg/mL See_Comment H [Autom ated = 7177846288) message] The system which generated this result transmitted reference range : <=125. The reference range was not used to interpret this result as normal/abnormal . ALLYN (test code = ALLYN) Biotin has been reported to cause a negative bias, interpret results relative to patient's use of biotin. Lab Interpretation Abnormal (test code = 63306-1) [facility] 12:19:25 Test Item Value Reference Range Interpretation Comments MAGNESIUM (test code = 7410546563) 2.7 mg/dL 1.7-2.4 H Lab Interpretation (test code = Abnormal 73665-3) [facility] METABOLIC PANEL ([id number])2021-10-08 12:19:05 Test Item Value Reference Range Interpretation Comments NA (test code = 135 mmol/L 135-145 8169860432) K (test code = 4.5 mmol/L 3.5-5.0 5853412877) CL (test code = 103 mmol/L 98-108 2624967253) CO2 TOTAL (test code = 26 mmol/L 23-31 1854069090) AGAP (test code = 2-16 2505521669) BUN (test code = 51 mg/dL 7-23 H 3778723428) GLUCOSE (test code = 150 mg/dL 70-110 H 4727598679) CREATININE (test code = 0.74 mg/dL 0.60-1.25 1610860027) TOTAL BILI (test code = 1.9 mg/dL 0.1-1.1 H 2222626917) CALCIUM (test code = 8.1 mg/dL 8.6-10.6 L 4613601925) T PROTEIN (test code = 6.7 g/dL 6.3-8.2 7591046379) ALBUMIN (test code = 3.0 g/dL 3.5-5.0 L 3045158303) ALK PHOS (test code = 100 U/L 34-122 6256521428) ALTv (test code = 73 U/L 5-50 H 1742-6) AST(SGOT) (test code = 184 U/L 13-40 H 4683867664) eGFR (test code = mL/min/1.73m2 9819982614) ALLYN (test code = ALLYN) Association of Glomerular Filtration Rate (GFR) and Staging of Kidney Disease* + --+ --+ ------+| GFR (mL/min/1.73 m2) ?| With Kidney Damage ?| ?Without Kidney Damage+ --------+ --------+ +| ?>90 ?| ?Stage one ?| ? Normal ?+ ---+ ---+ -------+| ?60-89 ?| ?Stage two ?| ? Decreased GFR ? + --+ --+ ------+| ?30-59 ?| ?Stage three ?| ? Stage three ? + --+ --+ ------+| ?15-29 ?| ?Stage four ? | ? Stage four ?+ ---+ ---+ -------+| ?<15 (or dialysis) ? ?| ?Stage five ? | ? Stage five ?+ ---+ ---+ -------+ *Each stage assumes the associated GFR level has been in effect for at least three months. ?Stages 1 to 5, with or without kidney disease, indicate chronic kidney disease. Notes: Determination of stages one and two (with eGFR >59mL/min/1.73 m2) requires estimation of kidney damage for at least three months as defined by structural or functional abnormalities of the kidney, manifested by either:Pathological abnormalities or Markers of kidney damage (including abnormalities in the composition of the blood or urine or abnormalities in imaging tests). Lab Interpretation Abnormal (test code = 91299-5) [facility] WITHOUT [id number] 10:55:51 Test Item Value Reference Range Interpretation Comments WBC (test code = See_Comment [Automated message] 6690-2) The system [employer] generated this result transmitted ref erence range: 4.20 - 1 0.70 10*3/?L. The reference range was not used to int erpret this result as normal/abnormal . RBC (test code = 789-8) See_Comment L [Au tomated message] The system [employer] generated this result transmitted ref erence range: 4.26 - 5 .52 10*6/?L. The reference range was not used to int erpret this result as normal/abnormal . HGB (test code = 718-7) 12.9 g/dL 12.2-16.4 HCT (test code = 37.2 % 38.4-49.3 L 4544-3) MCH (test code = 785-6) 33.2 pg 26.1-32.7 H MCV (test code = 787-2) 95.9 fL 81.7-95.6 H MCHC (test code = 34.7 g/dL 31.2-35.0 786-4) PLT (test code = 777-3) See_Comment LL [Au tomated message] The system [employer] generated this result transmitted ref erence range: 150 - 32 8 10*3/?L. The reference range was not used to int erpret this result as normal/abnormal . MPV (test code = 11.5 fL 9.8-13.0 14871-5) RDW-CV (test code = 14.9 % 12.1-15.4 788-0) RDW-SD (test code = 52.4 fL 38.5-51.6 H 20580-6) NRBC x10^3 (test code = <0.01 See_Comment [Au tomated message] 1426768839) The system [employer] generated this result transmitted ref erence range: 10*3/?L. The reference range was not used to int erpret this result as normal/abnormal . NRBC/100 WBC (test code See_Comment [Au tomated message] = 3434243350) The system [employer] generated this result transmitted ref erence range: 0.0 - 10 .0 /100 WBCs. The reference range was not used to int erpret this result as normal/abnormal . IPF % (test code = 5.0 % 1.2-10.7 Platelet count 6271994723) measured by fluorescence me thod. Lab Interpretation Abnormal (test code = 09266-7) [facility] HospitalMYCOPLASMA PNEUMONIAE ANTIBODY, [id number] 23:05:23 Test Item Value Reference Range Interpretation Comments Mycoplasma IGM (test 1.53 U/L See_Comment H INTERPR ETIVE code = 5256-3) INFORMATION: ?Mycoplasma pne umoniae Ab, IgM ?0.76 U /L or less .......... Negative: No clinically ?significant am ount of ?M. pneum oniae IgM antibody ?detected. ?0.7 7 - 0.95 U/L ...... ..... Low Positive: M . pneumoniae- ?specific IgM presumptively ?detected. Lashell ection of a ?foll ow-up sample in 1-2 ?weeks is recom mended to ?assure reactivity. ?0. 96 U/L or greater .... ... Positive: Highl y significant ?amount of M. pneumoniae- ?specific IgM a ntibody ?detected . However, low le vels ?of IgM ant ibodies may ?occasionally p ersist for more ? than 12 months post-infection. Perform ed By: [address] [id number] Director: Makayla Salazar MD [Aut omated message] The sy stem which generated this result transmit britta reference range : <=0.76. The ref erence range was not u sed to interpret this result as normal/abnor mal. Lab Interpretation Abnormal (test code = 00849-4) [facility]22-[facility]-18 11:18:21 Test Item Value Reference Range Interpretation Comments MAGNESIUM (test code = 4556211019) 3.2 mg/dL 1.7-2.4 H Lab Interpretation (test code = Abnormal 51298-4) [facility]OL[facility] PAN[facility] ([id number])2021-10-07 11:18:00 Test Item Value Reference Range Interpretation Comments NA (test code = 137 mmol/L 135-145 3873592688) K (test code = 3.4 mmol/L 3.5-5.0 L 8537066298) CL (test code = 108 mmol/L 98-108 2349305283) CO2 TOTAL (test code = 20 mmol/L 23-31 L 4780638136) AGAP (test code = 2-16 4802398252) BUN (test code = 58 mg/dL 7-23 H 2394617688) GLUCOSE (test code = 145 mg/dL 70-110 H 5957444312) CREATININE (test code = 0.86 mg/dL 0.60-1.25 2233455054) TOTAL BILI (test code = 1.7 mg/dL 0.1-1.1 H 6419353615) CALCIUM (test code = 7.7 mg/dL 8.6-10.6 L 2457282602) T PROTEIN (test code = 6.1 g/dL 6.3-8.2 L 7891845444) ALBUMIN (test code = 2.8 g/dL 3.5-5.0 L 0377364413) ALK PHOS (test code = 74 U/L 34-122 7241518338) ALTv (test code = 57 U/L 5-50 H 1742-6) AST(SGOT) (test code = 163 U/L 13-40 H 2180190944) eGFR (test code = mL/min/1.73m2 3651619670) ALLYN (test code = ALLYN) Association of Glomerular Filtration Rate (GFR) and Staging of Kidney Disease* + --+ --+ ------+| GFR (mL/min/1.73 m2) ?| With Kidney Damage ?| ?Without Kidney Damage+ --------+ --------+ +| ?>90 ?| ?Stage one ?| ? Normal ?+ ---+ ---+ -------+| ?60-89 ?| ?Stage two ?| ? Decreased GFR ? + --+ --+ ------+| ?30-59 ?| ?Stage three ?| ? Stage three ? + --+ --+ ------+| ?15-29 ?| ?Stage four ? | ? Stage four ?+ ---+ ---+ -------+| ?<15 (or dialysis) ? ?| ?Stage five ? | ? Stage five ?+ ---+ ---+ -------+ *Each stage assumes the associated GFR level has been in effect for at least three months. ?Stages 1 to 5, with or without kidney disease, indicate chronic kidney disease. Notes: Determination of stages one and two (with eGFR >59mL/min/1.73 m2) requires estimation of kidney damage for at least three months as defined by structural or functional abnormalities of the kidney, manifested by either:Pathological abnormalities or Markers of kidney damage (including abnormalities in the composition of the blood or urine or abnormalities in imaging tests). Lab Interpretation Abnormal (test code = 05901-2) [facility] WITH [id number] 11:13:03 Test Item Value Reference Range Interpretation Comments WBC (test code = See_Comment L [Automated 6690-2) message] The system which generated this result transmitted reference range : 4.20 - 10.70 10*3/?L. The reference range was not used to interpret this result as normal/abnormal . RBC (test code = See_Comment L [Automated 789-8) message] The system which generated this result transmitted reference range : 4.26 - 5.52 10*6/?L. The reference range was not used to interpret this result as normal/abnormal . HGB (test code = 12.5 g/dL 12.2-16.4 718-7) HCT (test code = 35.5 % 38.4-49.3 L 4544-3) MCV (test code = 95.4 fL 81.7-95.6 787-2) MCH (test code = 33.6 pg 26.1-32.7 H 785-6) MCHC (test code = 35.2 g/dL 31.2-35.0 H 786-4) RDW-SD (test code = 53.1 fL 38.5-51.6 H 73251-5) RDW-CV (test code = 15.0 % 12.1-15.4 788-0) PLT (test code = See_Comment LL [Automated 777-3) message] The system which generated this result transmitted reference range : 150 - 328 10*3/?L. The reference range was not used to interpret this result as normal/abnormal . MPV (test code = 9.9 fL 9.8-13.0 83962-3) NRBC/100 WBC (test See_Comment [Automat ed code = 4816378568) message] The system which generated this result transmitted reference range : 0.0 - 10.0 /100 WBCs. The reference range was not used to interpret this result as normal/abnormal . NRBC x10^3 (test code <0.01 See_Comment [Auto mated = 6804690364) message] The system which generated this result transmitted reference range : 10*3/?L. The reference range was not used to interpret this result as normal/abnormal . GRAN MAT (NEUT) % 79.5 % (test code = 770-8) IMM GRAN % (test code 6.00 % = 6112510467) LYMPH % (test code = 5.4 % 736-9) MONO % (test code = 8.0 % 5905-5) EOS % (test code = 0.0 % 713-8) BASO % (test code = 1.1 % 706-2) GRAN MAT x10^3(ANC) 2.78 10*3/uL 1.99-6.95 (test code = 4938843123) IMM GRAN x10^3 (test 0.21 10*3/uL 0.00-0.06 H code = 2485915140) LYMPH x10^3 (test 0.19 10*3/uL 1.09-3.23 L code = 731-0) MONO x10^3 (test code 0.28 10*3/uL 0.36-1.02 L = 742-7) EOS x10^3 (test code <0.03 0.06-0.53 L = 711-2) BASO x10^3 (test code 0.04 10*3/uL 0.01-0.09 = 704-7) BANDS (test code = MARKED INCREASED A 3172196411) DOHLE BODIES (test Present A code = 7792-5) TOXIC CHANGES (test Present A code = 803-7) PLT ESTIMATE (test Critically Normal AA code = 9317-9) Decreased Lab Interpretation Abnormal (test code = 55493-4) [facility] HospitalGRAM POS[facility]IVE BLOOD PATHOGENS DNA [id number] 22:53:38 Test Item Value Reference Range Interpretation Comments Coagulase Negative Positive Negative, See A Staphylococcus (test Comment/Narrative code = 94954-4) ALLYN (test code = ALLYN) Coagulase negative Staphylococcus (CoNS) detected by DNA probe. ?CoNS often contaminate blood cultures from skin colonization during phlebotomy. ?Preferred management is to repeat blood cultures, and monitor off antibiotics. ?Contamination is suggested by culture growth after 48 hours, or growth in single culture (i.e., one of two sets). ?True bacteremia is suggested by the fever, hypotension, and leukocytosis that are not explained by an alternative infection, or indwelling foreign devices that appear infected (catheters, lines, or prostheses). Consider Infectious Diseases consultation if differentiation of CoNS bacteremia from contamination is uncertain. If clinical context suggests true bacteremia, preferred therapy is vancomycin. Please contact the Antimicrobial Stewardship Program with questions.Pager: ?[phone] Testing included eleven identification and three resistance marker targets. Lab Interpretation Abnormal (test code = 74503-9) [facility] HospitalTransthoracic echo (TTE)2021-10-06 22:06:00 Test Item Value Reference Range Interpretation Comments LVIDD (test code = 4.30 cm 1444156935) IVS (test code = 1.05 cm 2810225003) Interventricular Septum 1.05 cm Diastolic Thickness by 2D (test code = 7871073) LVPWD (test code = 0.96 cm 7909091786) PW (test code = 0.96 cm 0.6-1.6 7740865094) EF(Teich) (test code = 65.60 % 3077995075) LVIDS (test code = 2.80 cm 1113092383) FS (test code = 36 % 3460897559) EF - 2D (test code = 65.60 % 64174853) LVOT diameter (test code 2.06 cm = 5152541741) ACS (test code = 1.44 cm 7380040543) Ao root annulus (test 2.44 cm code = 7259744517) Ao root diam (test code = 2.44 cm 8935047503) Aortic root (test code = 2.44 cm 3340118977) LA size (test code = 4.7 cm 1922176173) E wave decelartion time 0.25 s (test code = 3250458586) MV Peak E Manjula (test code 107.4 cm/s = 0265846655) MV Peak A Manjula (test code 100.5 cm/s = 8803527093) E/A ratio (test code = ratio 1448333593) MV Prop V (test code = 83.40 cm/s 3961057965) TR Peak Manjula (test code = 244.4 cm/s 8548379483) Triscuspid Valve mmHg Regurgitation Peak Gradient (test code = 9933543192) LVOT stroke volume (test 66.20 cm3 code = 3166132573) LVOT peak manjula (test code 85.8 cm/s = 0170800514) LVOT mn grad (test code = mmHg 5572482029) AV LVOT peak gradient mmHg (test code = 0500054862) LVOT peak VTI (test code 19.9 cm = 0415654508) LV V1 mean (test code = 55.80 cm/s 5806804087) Aortic valve mean 174.5 cm/s velocity (test code = 1172985175) Ao peak manjula (test code = 283.1 cm/s 3863573466) Ao VTI (test code = 58.8 cm 5257046678) AV area by cont VTI (test 1.1 cm2 code = 7415769776) AV area peak manjula (test 1.0 cm2 code = 7848685542) Ao max PG (test code = 32.10 mm[Hg] 0156888659) AV peak gradient (test mmHg code = 5867908668) AV valve area (test code 1.13 cm2 = 4187639529) AV mean gradient (test mmHg code = 7084404796) MR max PG (test code = 42.50 mm[Hg] 2419210773) MR max manjula (test code = 326.10 cm/s 7399529730) Mr max manjula (test code = 326.1 m/s 8622444465) Radiology Study observation (narrative) (test code = 20161-4) ALLYN (test code = ALLYN) ?Left?Ventricle: Left ventricle is normal in size and function. Normal wall thickness. Normal wall motion. Normal systolic function with a visually estimated EF of 60 - 65%. ?Tricuspid?Valve: Insufficient regurgant jet to estimate RVSP. ?Aortic?Valve: Consistent with mild aortic stenosis. ?Aorta: Mildly enlarged ascending aorta (3.7 cm). ?IVC/SVC: IVC normal in size and respiratory variation. ?Left?Atrium: Left atrium is mildly dilated. VitalsHeight Weight BSA (Calculated - sq m) BP Pulse 5' 6" (1.676 m) 141 lb (64 kg) 1.72 sq meters 96/64 88 [facility] HospitalCORTISOL [id number] 20:38:54 Test Item Value Reference Range Interpretation Comments SMILEY AM (test code = 43.5 ug/dL 4.5-23.0 H 8041643280) ALLYN (test code = ALLYN) Biotin has been reported to cause a positive bias, interpret results relative to patient's use of biotin. Lab Interpretation (test Abnormal code = 86968-3) [facility] HospitalHEPATITIS C VIRUS (HCV) BY QUANTITATIVE NAAT 2021-10-06 17:22:35 Test Item Value Reference Range Interpretation Comments HCV Quantitative Not Detected Not Detected Interpretation (test code = 1285692964) ALLYN (test code = ALLYN) The Aptima HCV Quant Dx assay is an FDA-approved real-time packaging associate-mediated amplification (TMA) test used for both detection and quantitation of hepatitis C virus (HCV) RNA in human serum and plasma from HCV-infected individuals. ?It is intended for use as an aid in the diagnosis of active HCV infection and the management of HCV-infected patients undergoing HCV antiviral drug therapy. ?It is not approved for use as a screening test for the presence of HCV RNA in blood or blood products. The quantitative range of this assay is 1.00 - 8.00 log IU/mL or 10 - 100,000,000 IU/mL. An interpretation of "Not Detected" does not rule out the presence of inhibitors in the patient specimen or HCV RNA concentration below the level of detection of the test. ?Care should be taken when interpreting any single viral load determination. Detected, not Quantifiable: HCV RNA detected, but at a level below 10 IU/mL (1.0 log IU/mL). ?HCV RNA concentration is below the lower limit of quantitation of the assay. Indeterminate: Error indicated in the generation of the result. ?Please submit a new specimen for repeat testing if clinically indicated. Lab Interpretation Normal (test code = 41207-3) [facility] HospitalTHYROID STIMULATING [id number] 15:03:33 Test Item Value Reference Range Interpretation Comments TSH (test code = See_Comment [Automated message] 4581816248) The system [employer] generated this result transmitted ref erence range: 0.45 - 4 .70 mIU/L. The refe rence range was not u sed to interpret this result as normal/abnor mal. Lab Interpretation (test Normal code = 15293-5) [facility]2022-03-17 09:12:39 Test Item Value Reference Range Interpretation Comments MAGNESIUM (test code = 2560753382) 3.1 mg/dL 1.7-2.4 H Lab Interpretation (test code = Abnormal 99809-6) [facility]COMP[facility] METABOLIC PANEL ([id number])2021-10-06 09:12:19 Test Item Value Reference Range Interpretation Comments NA (test code = 134 mmol/L 135-145 L 4675685399) K (test code = 3.4 mmol/L 3.5-5.0 L 9362424476) CL (test code = 103 mmol/L 98-108 2597295379) CO2 TOTAL (test code = 20 mmol/L 23-31 L 4622428891) AGAP (test code = 2-16 1943217551) BUN (test code = 69 mg/dL 7-23 H 7569961262) GLUCOSE (test code = 107 mg/dL 70-110 8157694585) CREATININE (test code = 1.48 mg/dL 0.60-1.25 H 2407515864) TOTAL BILI (test code = 2.3 mg/dL 0.1-1.1 H 5278271960) CALCIUM (test code = 7.5 mg/dL 8.6-10.6 L 8795125283) T PROTEIN (test code = 6.2 g/dL 6.3-8.2 L 5391417646) ALBUMIN (test code = 2.9 g/dL 3.5-5.0 L 3575753432) ALK PHOS (test code = 53 U/L 34-122 9662535249) ALTv (test code = 47 U/L 50 1742-6) AST(SGOT) (test code = 208 U/L 13-40 H 3556541250) eGFR (test code = mL/min/1.73m2 9427140259) ALLYN (test code = ALLYN) Association of Glomerular Filtration Rate (GFR) and Staging of Kidney Disease* + --+ --+ ------+| GFR (mL/min/1.73 m2) ?| With Kidney Damage ?| ?Without Kidney Damage+ --------+ --------+ +| ?>90 ?| ?Stage one ?| ? Normal ?+ ---+ ---+ -------+| ?60-89 ?| ?Stage two ?| ? Decreased GFR ? + --+ --+ ------+| ?30-59 ?| ?Stage three ?| ? Stage three ? + --+ --+ ------+| ?15-29 ?| ?Stage four ? | ? Stage four ?+ ---+ ---+ -------+| ?<15 (or dialysis) ? ?| ?Stage five ? | ? Stage five ?+ ---+ ---+ -------+ *Each stage assumes the associated GFR level has been in effect for at least three months. ?Stages 1 to 5, with or without kidney disease, indicate chronic kidney disease. Notes: Determination of stages one and two (with eGFR >59mL/min/1.73 m2) requires estimation of kidney damage for at least three months as defined by structural or functional abnormalities of the kidney, manifested by either:Pathological abnormalities or Markers of kidney damage (including abnormalities in the composition of the blood or urine or abnormalities in imaging tests). Lab Interpretation Abnormal (test code = 26334-6) [facility] [id number] 09:11:49 Test Item Value Reference Range Interpretation Comments AMMONIA (test code = 8369139989) <9 9-33 L Lab Interpretation (test code = Abnormal 53626-8) [facility] [id number] 05:14:31 Test Item Value Reference Range Interpretation Comments HCV Ab (test code = Positive 85735-9) HCV Semi-Quantitative (test code = 28992-5) APRI (test code = 7095007167) ALLYN (test code = Positive for HCV antibody ALLYN) with a high signal to cutoff ratio (s/c). ?Supplementary test for Hepatitis C Virus RNA Real-Time PCR is recommended if clinically indicated. ?If any questions, please contact Clinical Chemistry Director tax collection coordinator at [phone].APRI score < 0.5: Suggestive of little to no fibrosisAPRI score > 1.5: Suggestive of moderate to severe fibrosisAPRI score > 2.0: Highly suggestive of cirrhosis. [facility]HEPAT[facility]IS [facility] SURFACE [id number] 04:32:39 Test Item Value Reference Range Interpretation Comments HBsAB (test code = Negative 2666718105) HBsAb mIU/mL Semi-Quantitative (test code = 5645915110) ALLYN (test code = Interpretation: ALLYN) ?Hepatitis B Surface Antibody ? Negative - Patient is considered to be not immune to infection with HBV. ? ? Positive - Anti-HBs detected at greater than or equal to 12 mIU/mL. ?Patient is considered to be immune to infection with HBV. ? [facility] (IGM & IGG)2021-10-06 04:32:39 Test Item Value Reference Range Interpretation Comments HBC (test code = 0202063924) Negative HBC Semi-Quantitative (test code = 9545966419) [facility]PROCAL[facility]ONIN2022-03-17 04:13:48 Test Item Value Reference Range Interpretation Comments Procalcitonin (test 19.95 ng/mL <0.07 H code = 5591832219) ALLYN (test code = ALLYN) INTERPRETATION OF PROCALCITONIN RESULTS IN ADULTS >= 18 YEARS OF AGE Initiation and discontinuation of antibiotics on patients with suspected or confirmed Lower Respiratory Tract Infection in Adults >= 18 years of age. + +-------- --------+ + -----+|Procalcitonin |Interpretation ?|Antibiotic ? ? |Considerations ? |ng/mL ? | ?|recommendation | ? + +-------- --------+ + -----+| <0.1 ? | Bacterial ? ? ?| Strongly ? ? ?| ? | ?| infection very | discouraged ? | Overruling: ? | ?| unlikely ? ? ? | ? | ? Clinically unstable ? ? ? + +-------- --------+ + ? High risk for adverse ? ? | <0.25 ?| Bacterial ? ? ?| Discouraged ? | ? outcome ? | ?| infection ? ? ?| ? | ? SEE IMPORTANT NOTE ?| ?| unlikely ? ? ? | ? | ? + +-------- --------+ + -----+| >=0.25 ? ? ? | Bacterial ? ? ?| Encouraged ? ?| ? | ?| infection ? ? ?| ? | ? | ?| likely ? | ? | Consider treatment failure ?+ +------- ---------+ -+ if levels does not decrease | >0.5 ? | Bacterial ? ? ?| Strongly ? ? ?| appropriately ? | ?| infection very | encouraged ? ?| ? | ?| likely ? | ? | ? + +-------- --------+ + -----+ Discontinuation of antibiotics in high-acuity patients with suspected or confirmed sepsis in Adults >= 18 years of age. + +-------- --------+ + -----+|Procalcitonin |Interpretation ?|Antibiotic ? ? |Considerations ? |ng/mL ? | ?|recommendation | ? + +-------- --------+ + -----+| <0.25 ?| Bacterial ? ? ?| Strongly ? ? ?| ? | ?| infection very | discouraged ? | Overruling: ? | ?| unlikely ? ? ? | ? | ? Clinically unstable ? ? ? + +-------- --------+ + ? High risk for adverse ? ? | <0.5 or drop | Bacterial ? ? ?| Discouraged ? | ? outcome ? | >80% from ? ?| infection ? ? ?| ? | ? SEE IMPORTANT NOTE ?| highest PCT ?| unlikely ? ? ? | ? | ? | level ?| ?| ? | ? + +-------- --------+ + -----+| >=0.5 ?| Bacterial ? ? ?| Encouraged ? ?| ? | ?| infection ? ? ?| ? | ? | ?| likely ? | ? | Consider treatment failure ?+ +------- ---------+ -+ if levels does not decrease | >1.0 ? | Bacterial ? ? ?| Strongly ? ? ?| appropriately ? | ?| infection very | encouraged ? ?| ? | ?| likely ? | ? | ? + +-------- --------+ + -----+ Percentage of drop of Procalcitonin calculation for Discontinuation of antibiotics in high-acuity patients with suspected or confirmed sepsis in Adults >= 18 years of age. ? Procalcitonin highest{}-Procalcitonin current{}Delta Procalcitonin = x100% ? Procalcitonin current {} IMPORTANT NOTE: Procalcitonin may be elevated without bacterial infection by physiologic stress related to trauma, marin, chronic dialysis, metastatic cancer, surgery in the past seven days, malaria, some fungal infections, and some forms of vasculitis. The interpretation algorithm may not apply to patients with immunosuppression (equivalent of >10 mg of prednisone daily), HIV with CD4 cell count < 350 cells/mm3, active malignancy on systemic chemotherapy, solid organ transplant or hematopoietic stem cell transplantation, or hospital acquired pneumonia. Additionally, some clinical trials of procalcitonin have excluded patients with shock requiring vasopressor use, acute respiratory failure requiring mechanical ventilation, or those with known lung abscess/empyema. For further information please refer to:[email or web address] Lab Interpretation Abnormal (test code = 68341-7) [facility] HospitalRAJATKimberli [id number] 02:05:57 Test Item Value Reference Interpretation Comments Range TROPONIN I (test 0.011 ng/mL See_Comment [Automated code = 8548240414) message] The system which generated this result transmitted reference range : <=0.034. The reference range was not used to interpret this result as normal/abnormal . ALLYN (test code = Reference (Normal) ALLYN) Range (defined by the 99th percentile reference limit): <= 0.034 ng/mL Note: Cardiac troponin begins to rise 3-4 hours after the onset of ischemia. Repeat in 4-6 hours if the sample was drawn within 3-4 hours of the onset of the symptom and found normal. Diagnosis of myocardial injury is made with acute changes in cTn concentrations with at least one serial sample above the 99th percentile upper reference limit (URL), taken together with the patient's clinical presentation. Biotin has been reported to cause a negative bias, interpret results relative to patient's use of biotin. Lab Interpretation Normal (test code = 81296-6) [facility] HospitalTROPONIN [id number] 15:30:20 Test Item Value Reference Interpretation Comments Range TROPONIN I (test 0.024 ng/mL See_Comment [Automated code = 1076907968) message] The system which generated this result transmitted reference range : <=0.034. The reference range was not used to interpret this result as normal/abnormal . ALLYN (test code = Reference (Normal) ALLYN) Range (defined by the 99th percentile reference limit): <= 0.034 ng/mL Note: Cardiac troponin begins to rise 3-4 hours after the onset of ischemia. Repeat in 4-6 hours if the sample was drawn within 3-4 hours of the onset of the symptom and found normal. Diagnosis of myocardial injury is made with acute changes in cTn concentrations with at least one serial sample above the 99th percentile upper reference limit (URL), taken together with the patient's clinical presentation. Biotin has been reported to cause a negative bias, interpret results relative to patient's use of biotin. Lab Interpretation Normal (test code = 17355-6) [facility] WITH [id number] 15:30:04 Test Item Value Reference Range Interpretation Comments WBC (test code = See_Comment H [Automated 6690-2) message] The system which generated this result transmit britta reference range : 4.20 - 10.70 10*3/?L. The reference range was not used to interpret this result as normal/abnormal . RBC (test code = See_Comment [Automated 789-8) message] The system which generated this result transmit britta reference range : 4.26 - 5.52 10*6/?L. The reference range was not used to interpret this result as normal/abnormal . HGB (test code = 16.8 g/dL 12.2-16.4 H 718-7) HCT (test code = 46.3 % 38.4-49.3 4544-3) MCV (test code = 93.0 fL 81.7-95.6 787-2) MCH (test code = 33.7 pg 26.1-32.7 H 785-6) MCHC (test code = 36.3 g/dL 31.2-35.0 H 786-4) RDW-SD (test code = 50.5 fL 38.5-51.6 85458-6) RDW-CV (test code = 14.7 % 12.1-15.4 788-0) PLT (test code = See_Comment L [Automated 777-3) message] The system which generated this result transmit britta reference range : 150 - 328 10*3/ ?L. The reference range was not u sed to interpret th is result as normal/abnormal . MPV (test code = 10.3 fL 9.8-13.0 10556-9) IPF % (test code = 3.7 % 1.2-10.7 Platelet count [id number]) measured by fluorescence method. NRBC/100 WBC (test See_Comment [Automat ed code = 7625352230) message] The system which generated this result transmit britta reference range : 0.0 - 10.0 /100 WBCs. The reference range was not used to interpret this result as normal/abnormal . NRBC x10^3 (test code <0.01 See_Comment [Auto mated = 9459477346) message] The system which generated this result transmit britta reference range : 10*3/?L. The reference range was not used to interpret this result as normal/abnormal . GRAN MAT (NEUT) % 91.1 % (test code = 770-8) IMM GRAN % (test code 2.70 % = 7839037619) LYMPH % (test code = 1.7 % 736-9) MONO % (test code = 4.4 % 5905-5) EOS % (test code = 0.1 % 713-8) BASO % (test code = 0.0 % 706-2) GRAN MAT x10^3(ANC) 10.59 10*3/uL 1.99-6.95 H (test code = 9356619778) IMM GRAN x10^3 (test 0.31 10*3/uL 0.00-0.06 H code = 4449671120) LYMPH x10^3 (test 0.20 10*3/uL 1.09-3.23 L code = 731-0) MONO x10^3 (test code 0.51 10*3/uL 0.36-1.02 = 742-7) EOS x10^3 (test code <0.03 0.06-0.53 L = 711-2) BASO x10^3 (test code <0.03 0.01-0.09 = 704-7) BANDS (test code = MARKED INCREASED A 4717684489) DOHLE BODIES (test Present A code = 7792-5) TOXIC CHANGES (test Present A code = 803-7) PLT ESTIMATE (test Decreased Normal A code = 9317-9) GIANT PLATELETS (test Present See_Comment A [Auto mated code = 5908-9) message] The system which generated this result transmit britta reference range : (none). The reference range was not used to interpret this result as normal/abnormal . Lab Interpretation Abnormal (test code = 38018-3) [facility] HospitalN-TERMINAL [id number] 15:26:58 Test Item Value Reference Range Interpretation Comments NT-proBNP (test code 3760 pg/mL See_Comment H [Autom ated = 0039473929) message] The system which generated this result transmitted reference range : <=125. The reference range was not used to interpret this result as normal/abnormal . ALLYN (test code = ALLYN) Biotin has been reported to cause a negative bias, interpret results relative to patient's use of biotin. Lab Interpretation Abnormal (test code = 57657-2) [facility] HospitalD-[id number] 15:20:50 Test Item Value Reference Interpretation Comments Range D-DIMER (test code = See_Comment H [Autom ated 2266382751) message] The system which generated this result transmitted reference range : <0.41 ?g/mL (FEU). The reference range was not used to interpret this result as normal/abnormal . ALLYN (test code = This test may be ALLYN) used in conjunction with a clinical pretest probability (PTP) assessment model to exclude venous thromboembolism (VTE) in patients suspected of deep venous thrombosis (DVT) and pulmonary embolism (PE) A D-Dimer value less than 0.50 ?g/ml (FEU) has a negative predicative value of 96 to 100% (95% CI)and 97 to 100% (95% CI) as an aid in the diagnosis of deep vein thrombosis (DVT) and pulmonary embolism when there is low or moderate pretest probability of PE or DVT. D-Dimer values are expressed in initial fibrinogen equivalent units (FEU)" The assay results should be used with other information, including the clinical context, in forming a diagnosis. Lab Interpretation Abnormal (test code = 02700-1) [facility]. METABOLIC PANEL (43440)2021-10-05 15:18:35 Test Item Value Reference Range Interpretation Comments NA (test code = 129 mmol/L 135-145 L 7148553686) K (test code = 3.8 mmol/L 3.5-5.0 3322196683) CL (test code = 96 mmol/L 98-108 L 9735013658) CO2 TOTAL (test code = 18 mmol/L 23-31 L 9510204634) AGAP (test code = 2-16 0674385848) BUN (test code = 70 mg/dL 7-23 H 0369140414) GLUCOSE (test code = 108 mg/dL 70-110 8289209705) CREATININE (test code = 1.86 mg/dL 0.60-1.25 H 7672685427) TOTAL BILI (test code = 3.8 mg/dL 0.1-1.1 H 2539879988) CALCIUM (test code = 8.1 mg/dL 8.6-10.6 L 2841505307) T PROTEIN (test code = 7.2 g/dL 6.3-8.2 5183542099) ALBUMIN (test code = 3.5 g/dL 3.5-5.0 8514248934) ALK PHOS (test code = 77 U/L 34-122 2404801605) ALTv (test code = 35 U/L 5-50 1742-6) AST(SGOT) (test code = 141 U/L 13-40 H 8091056231) eGFR (test code = mL/min/1.73m2 4940490255) ALLYN (test code = ALLYN) Association of Glomerular Filtration Rate (GFR) and Staging of Kidney Disease* + --+ --+ ------+| GFR (mL/min/1.73 m2) ?| With Kidney Damage ?| ?Without Kidney Damage+ --------+ --------+ +| ?>90 ?| ?Stage one ?| ? Normal ?+ ---+ ---+ -------+| ?60-89 ?| ?Stage two ?| ? Decreased GFR ? + --+ --+ ------+| ?30-59 ?| ?Stage three ?| ? Stage three ? + --+ --+ ------+| ?15-29 ?| ?Stage four ? | ? Stage four ?+ ---+ ---+ -------+| ?<15 (or dialysis) ? ?| ?Stage five ? | ? Stage five ?+ ---+ ---+ -------+ *Each stage assumes the associated GFR level has been in effect for at least three months. ?Stages 1 to 5, with or without kidney disease, indicate chronic kidney disease. Notes: Determination of stages one and two (with eGFR >59mL/min/1.73 m2) requires estimation of kidney damage for at least three months as defined by structural or functional abnormalities of the kidney, manifested by either:Pathological abnormalities or Markers of kidney damage (including abnormalities in the composition of the blood or urine or abnormalities in imaging tests). Lab Interpretation Abnormal (test code = 22513-3) [facility]AM[facility], [id number] 15:11:16 Test Item Value Reference Range Interpretation Comments AMMONIA (test code = 0877464671) 15 umol/L 9-33 Lab Interpretation (test code = Normal 68716-1) [facility] HospitalPROTHROMBIN TIME / [id number] 15:06:55 Test Item Value Reference Range Interpretation Comments PROTIME PATIENT (test See_Comment H [Auto mated message] code = 5964-2) The system [employer] generated this result transmitted ref erence range: 12.0 - 1 4.7 Seconds. The reference range was not used to int erpret this result as normal/abnormal . INR (test code = 6301-6) Nor mal INR <1.1; Warfarin Therap eutic range 2.0 to 3. 0 or 2.5 to 3.5, dep ending upon the indica tions. Lab Interpretation (test Abnormal code = 20721-6) [facility] HospitalUrinalysis2021-09-[facility] 14:07:00 Test Item Value Reference Range Interpretation Comments Urinalysis (test code = Yellow Yellow UACLR) Urinalysis (test code = Clear Clear UACLY) Urinalysis (test code = SPGR) 1.026 1.002-1.036 N Urinalysis (test code = ARNALDO) 5.5 5.0-9.0 N Urinalysis (test code = Negative Jillian/uL Negative UALEU) Urinalysis (test code = Negative Negative UANIT) Urinalysis (test code = 30 mg/dL Neg-Trace A PROUADIP) Urinalysis (test code = Normal mg/dL Negative GLUCU) Urinalysis (test code = KETU) 10 mg/dL Negative A Urinalysis (test code = 2.0 mg/dL Less than 2 A UAUROB) Urinalysis (test code = Negative Negative UABIL) Urinalysis (test code = Negative Negative UABLD) Urinalysis (test code = 0-3 HPF 0-3 UARBC) Urinalysis (test code = 4-6 HPF 0-3 A UAWBC) Urinalysis (test code = None Seen HPF 0-3 UASQUAM) Urinalysis (test code = 1+ HPF None Seen A UABAC) Urinalysis (test code = 11-20 LPF 0-3 A UAHYAL) Urine Source: Urine [id number] 12:17:00 Test Item Value Reference Range Interpretation Comments Hematology (test code = 4.9 thou/uL 4.8-10.8 N WBCT) Hematology (test code = 4.16 mill/uL 4.70-6.10 L RBCT) Hematology (test code = 14.1 g/dL 14.0-18.0 N HGBT) Hematology (test code = 42.0 % 42.0-52.0 N HCTT) Hematology (test code = 101.0 fL 78.0-98.0 H MCV) Hematology (test code = 33.9 pg 27.0-31.0 H MCH) Hematology (test code = 33.6 g/dL 32.0-36.0 N MCHC) Hematology (test code = 13.4 % 11.5-14.5 N RDW) Hematology (test code = 39 thou/uL 130-400 L PLTT) Hematology (test code = 7.2 fL 7.4-10.4 L MPV) Hematology (test code = 82.4 % 42.0-75.0 H %NEUT) Hematology (test code = 10.3 % 21.0-51.0 L %LYMPH) Hematology (test code = 5.8 % 0.0-10.0 N %MONO) Hematology (test code = 1.4 % 0.0-10.0 N %EOS) Hematology (test code = 0.2 % 0.0-1.0 N %BASO) Hematology (test code = 4.1 thou/uL 1.40-6.50 N NEUT#) Hematology (test code = 0.5 thou/uL 1.20-3.40 L LYMPH#) Hematology (test code = 0.3 thou/uL 0.11-0.59 N MONO#) Hematology (test code = 0.1 thou/uL 0.0-0.7 N EOS#) Hematology (test code = 0.0 thou/uL 0.0-0.2 N BASO#) Hematology (test code = Appears Decreased A PCOMMENT) Hematology (test code = MC) Normal [id number] 11:58:00 Test Item Value Reference Range Interpretation Comments Chemistry (test code 132 mmol/L 136-145 L = NA-T) Chemistry (test code 4.7 mmol/L 3.5-5.1 N Interpr et results with = K-T) caution; hemoly sis detected at [facility] that may cause inter ference with the assay. Chemistry (test code 98 mmol/L 98-107 N = CL) Chemistry (test code 24 mmol/L 23-31 N = CO2) Chemistry (test code 15 mmol/L 10-20 N = ANGP) Chemistry (test code 12 mg/dL 8.4-25.7 N = BUN) Chemistry (test code 1.00 mg/dL 0.7-1.3 N = CREATT) Chemistry (test code 75 Referen ce Range for = EGFRMDRD) Estimated GFR: Greater than 90 mL/min/ 1.73 m2NOTE:The MDRD equation has no t been validated for u se with theelderly (ove r 70 years of age), women, patients with serious comorbi d condition or pe rsons with extremes o fbody size, muscle ma ss, or nutritional sta tus. Chemistry (test code 133 mg/dL 80-115 H = GLU-T) Chemistry (test code 9.1 mg/dL 7.8-10.44 N = CA) Chemistry (test code 3.2 mg/dL 0.2-1.2 H = TBILI-T) Chemistry (test code 8.0 g/dL 5.8-8.1 N Interpr et results with = TP) caution; hemoly sis detected at fouzia [place] that may cause inter ference with the assay. Chemistry (test code 3.3 g/dL 3.4-4.8 L = ALB) Chemistry (test code 4.7 g/dL 2.4-3.5 H = GLOB) Chemistry (test code 0.7 g/dL 1.2-2.2 L = AG) Chemistry (test code 81 U/L 40-110 N = ALP) Chemistry (test code 54 U/L 5-34 H Interpr et results with = AST) caution; hemoly sis detected at fouzia [place] that may cause inter ference with the assay. Chemistry (test code 23 U/L 8-55 N = ALT) Body Fluid [id number] 22:25:00 Test Item Value Reference Range Interpretation Comments Body Fluid Culture (test NO GROWTH IN 5 DAYS code = FLUIDC) Body Fluid Culture (test GS code = FLUIDC1) Body Fluid Culture (test NOS code = FLUIDC1) Reference Lab [id number] 11:39:00 Test Item Value Reference Range Interpretation Comments Reference Lab 0.4 g/dL Not Estab. The reference intervals and Testing (test other method code = ALBFL) performancespe cifications have not been establ ished for this test. Thetest r esult should be integrated into the clinical contextfor inte rpretation.The reference inter iwona(s) and other method performa nce specificationsh ave not been established for this body fluid. The test result must beintegrated in to the clinical context for interpretation. Performed at: [facility] [id number] [place], [place] [id number] Di naila: Willy Rousseau MD, Phone : [phone] Hematology - [id number] 08:21:00 Test Item Value Reference Range Interpretation Comments Hematology - Ascites Body Fluids (test code Fluid = CCDIFFBF) Hematology - EDTA Fluids (test code = CCDIFFTUBE) Hematology - Cloudy/Turbid Clear A Fluids (test code = CCDIFFCL) Hematology - Yellow Fluids (test code = CCDIFFBFCOL) Hematology - 63 uL Fluids (test code = CCDIFFWBCA) Hematology - 2241 /cu.mm Fluids (test code = CCDIFFRBCA) Hematology - Note: The reference r amanda Fluids (test code has not be en = CCDIFFREFR) established fo r this bodyfluid. The test result must be integrated into the clinicalcontext for interpretation. Source: ASCITES FLUIDHematology - [id number] 08:21:00 Test Item Value Reference Range Interpretation Comments Hematology - Fluids 11 % (test code = CCDIFFBFNE) Hematology - Fluids 27 % (test code = CCDIFFLY) Hematology - Fluids 62 % Non-Bran tic cells (test code = CCDIFFNON) cons ist of macrophages, endothelial,his tiocytic and mesothelial cells. Source: ASCITES FLUIDHematology - [id number] 08:21:00 Test Item Value Reference Range Interpretation Comments Hematology - Fluids Other ce lls are (test code = PATHF) macropha ges and mesothelial maral ls. Nomalignant maral ls are identified.LUIS CHILDS M.D. T Code: 39265 (Booth-s tained cytospin) Source: ASCITES [id number] 05:37:00 Test Item Value Reference Range Interpretation Comments Chemistry (test code 132 mmol/L 136-145 L = NA-T) Chemistry (test code 3.9 mmol/L 3.5-5.1 N = K-T) Chemistry (test code 97 mmol/L 98-107 L = CL) Chemistry (test code 30 mmol/L 23-31 N = CO2) Chemistry (test code 9 mmol/L 10-20 L = ANGP) Chemistry (test code 28 mg/dL 8.4-25.7 H = BUN) Chemistry (test code 0.89 mg/dL 0.7-1.3 N = CREATT) Chemistry (test code 86 Referen ce Range for = EGFRMDRD) Estimated GFR: Greater than 90 mL/min/ 1.73 m2NOTE:The MDRD equation has no t been validated for u se with theelderly (ove r 70 years of age), women, patients with serious comorbi d condition or pe rsons with extremes o fbody size, muscle ma ss, or nutritional sta tus. Chemistry (test code 140 mg/dL 80-115 H = GLU-T) Chemistry (test code 8.0 mg/dL 7.8-10.44 N = CA) [id number] 05:29:00 Test Item Value Reference Range Interpretation Comments Hematology (test code = WBCT) 5.0 thou/uL 4.8-10.8 N Hematology (test code = RBCT) 2.96 mill/uL 4.70-6.10 L Hematology (test code = HGBT) 10.4 g/dL 14.0-18.0 L Hematology (test code = HCTT) 30.8 % 42.0-52.0 L Hematology (test code = MCV) 104.0 fL 78.0-98.0 H Hematology (test code = MCH) 35.3 pg 27.0-31.0 H Hematology (test code = MCHC) 33.9 g/dL 32.0-36.0 N Hematology (test code = RDW) 13.9 % 11.5-14.5 N Hematology (test code = PLTT) 40 thou/uL 130-400 L Hematology (test code = MPV) 7.3 fL 7.4-10.4 L Chemistry - Body [id number] 19:14:00 Test Item Value Reference Interpretation Comments Range Chemistry - Less than Not Available Fluid Source: []The reference Body Fluids 1.0 g/dL range and other method (test code = performancespec ifications have FLUTP) not been establ ished for this bodyfluid. The test result must be integra britta into the clinicalcontext for interpretation. FLUID SOURCE: ascitesChemistry - Body [id number] 19:11:00 Test Item Value Reference Range Interpretation Comments Chemistry - Body 19 U/L Not Available The refere nce range and other Fluids (test method code = FLUAMY) performancesp ecifications have not been establ ished for this bodyfluid. The test result must be integrated i nto the clinicalcontext for interpretation. FLUID SOURCE: ascitesChemistry - [id number] 15:14:00 Test Item Value Reference Range Interpretation Comments Chemistry - Specials (test code = 5.80 ng/mL 7.0-31.4 L FOLATE) Comment please add onChemistry - [id number] 15:08:00 Test Item Value Reference Range Interpretation Comments Chemistry - Specials (test code = 1369 pg/mL 211-911 H VITB12) Comment please add onChemistry - [id number] 15:08:00 Test Item Value Reference Range Interpretation Comments Chemistry - Specials (test code 2.3160 uIU/mL 0.35-4.94 N = TSH3) Comment please add [id number] 06:02:00 Test Item Value Reference Range Interpretation Comments Chemistry (test code 132 mmol/L 136-145 L = NA-T) Chemistry (test code 3.5 mmol/L 3.5-5.1 N = K-T) Chemistry (test code 96 mmol/L 98-107 L = CL) Chemistry (test code 28 mmol/L 23-31 N = CO2) Chemistry (test code 12 mmol/L 10-20 N = ANGP) Chemistry (test code 21 mg/dL 8.4-25.7 N = BUN) Chemistry (test code 0.92 mg/dL 0.7-1.3 N = CREATT) Chemistry (test code 83 Referen ce Range for = EGFRMDRD) Estimated GFR: Greater than 90 mL/min/ 1.73 m2NOTE:The MDRD equation has no t been validated for u se with theelderly (ove r 70 years of age), women, patients with serious comorbi d condition or pe rsons with extremes o fbody size, muscle ma ss, or nutritional sta tus. Chemistry (test code 121 mg/dL 80-115 H = GLU-T) Chemistry (test code 8.0 mg/dL 7.8-10.44 N = CA) Chemistry (test code 3.7 mg/dL 0.2-1.2 H = TBILI-T) Chemistry (test code 6.9 g/dL 5.8-8.1 N = TP) Chemistry (test code 2.4 g/dL 3.4-4.8 L = ALB) Chemistry (test code 4.5 g/dL 2.4-3.5 H = GLOB) Chemistry (test code 0.5 g/dL 1.2-2.2 L = AG) Chemistry (test code 115 U/L 40-110 H = ALP) Chemistry (test code 103 U/L 5-34 H = AST) Chemistry (test code 54 U/L 8-55 N = ALT) [id number] 05:49:00 Test Item Value Reference Range Interpretation Comments Hematology (test code = WBCT) 5.5 thou/uL 4.8-10.8 N Hematology (test code = RBCT) 3.02 mill/uL 4.70-6.10 L Hematology (test code = HGBT) 10.9 g/dL 14.0-18.0 L Hematology (test code = HCTT) 31.6 % 42.0-52.0 L Hematology (test code = MCV) 105.0 fL 78.0-98.0 H Hematology (test code = MCH) 36.1 pg 27.0-31.0 H Hematology (test code = MCHC) 34.4 g/dL 32.0-36.0 N Hematology (test code = RDW) 14.3 % 11.5-14.5 N Hematology (test code = PLTT) 42 thou/uL 130-400 L Hematology (test code = MPV) 7.1 fL 7.4-10.4 L Hematology (test code = %NEUT) 68.4 % 42.0-75.0 N Hematology (test code = %LYMPH) 14.5 % 21.0-51.0 L Hematology (test code = %MONO) 13.2 % 0.0-10.0 H Hematology (test code = %EOS) 3.7 % 0.0-10.0 N Hematology (test code = %BASO) 0.2 % 0.0-1.0 N Hematology (test code = NEUT#) 3.8 thou/uL 1.40-6.50 N Hematology (test code = LYMPH#) 0.8 thou/uL 1.20-3.40 L Hematology (test code = MONO#) 0.7 thou/uL 0.11-0.59 H Hematology (test code = EOS#) 0.2 thou/uL 0.0-0.7 N Hematology (test code = BASO#) 0.0 thou/uL 0.0-0.2 N Molecular Testing [id number] 00:59:00 Test Item Value Reference Range Interpretation Comments Molecular Testing Not Detected NotDetected Performanc e of the MM (test code = Cepheid SARS -CoV-2 has [id number]) only beenestab lished in nasopharyngeal swab specimens. This testcannot rule out diseases caused by other bacterial or viralpathogens. Cepheid has been provid ed an FDA EUA that wi ll be effectiveuntil the declaration jeffrey t circumstances e xist justifyingthe authorization o f the emergency use o f in vitrodiagnostic tests for detection a nd/or diagnosis ofCOV ID-19 is terminated unde r Section 564(b)( 2) of the Act orthe E UA is revoked under S ection 564(g) of the A ct. Resident in [facility] Setting: UnknownEmployed in Healthcare: UnknownFirst Test: UnknownHospitalized: UnknownICU: Unknown: UnknownReason for Testing: PUI -SymptomaticSource: Nasopharyngeal SwabSymptomatic as defined by CDC: [id number] 19:31:00 Test Item Value Reference Range Interpretation Comments Chemistry (test 0.015 ng/mL < 0.028 code = TROPI-T) Reference Ra nge 0.00 - 0.028 ng /mL Negative 0.029 - 0.29 ng/mL Indetermi jackie Greater or Equa l to 0.3 ng/mL Strongly suggests [place] [id number] 19:02:00 Test Item Value Reference Range Interpretation Comments Chemistry (test 0.013 ng/mL < 0.028 code = TROPI-T) Reference Ra nge 0.00 - 0.028 ng /mL Negative 0.029 - 0.29 ng/mL Indetermi jackie Greater or Equa l to 0.3 ng/mL Strongly suggests [place] [id number] 16:51:00 Test Item Value Reference Range Interpretation Comments Chemistry (test code = PHOS-T) 3.2 mg/dL 2.3-4.7 N [id number] 16:51:00 Test Item Value Reference Range Interpretation Comments Chemistry (test code = MG) 1.6 mg/dL 1.6-2.6 N [id number] 16:07:00 Test Item Value Reference Range Interpretation Comments Coagulation (test 17.2 sec 12.0-14.7 H code = PT-T) Coagulation (test 1.4 ATTE NTION: READ code = INR) CAREFULLY-- The recommended the rapeutic ranges for oral anticoagulanttr eatments are: ------ Low Inte nsity: 1.5 - 2.0 Moderate In tensity: 2.0 - 3.0 High Intens ity (1): 2.5 - 3.5 High Inten sity (2): 3.0 - 4.0 CRITICAL: > 4.0 Coagulation (test 33.9 sec 22.9-36.1 N code = PTT) Anticoagulant? [id number] 12:31:00 Test Item Value Reference Range Interpretation Comments Chemistry (test 0.028 ng/mL < 0.028 code = TROPI-R) Reference Ra nge 0.00 - 0.028 ng /mL Negative 0.029 - 0.29 ng/mL Indetermi jackie Greater or Equa l to 0.3 ng/mL Strongly suggests [place] [id number] 12:31:00 Test Item Value Reference Range Interpretation Comments Hematology (test 4.6 thou/uL 4.8-10.8 L code = WBCT) Hematology (test 3.41 mill/uL 4.70-6.10 L code = RBCT) Hematology (test 12.2 g/dL 14.0-18.0 L code = HGBT) Hematology (test 35.8 % 42.0-52.0 L code = HCTT) Hematology (test 105.0 fL 78.0-98.0 H code = MCV) Hematology (test 35.9 pg 27.0-31.0 H code = MCH) Hematology (test 34.2 g/dL 32.0-36.0 N code = MCHC) Hematology (test 14.2 % 11.5-14.5 N code = RDW) Hematology (test 44 thou/uL 130-400 L code = PLTT) Hematology (test 6.9 fL 7.4-10.4 L code = MPV) Hematology (test 73.4 % 42.0-75.0 N code = %NEUT) Hematology (test 14.5 % 21.0-51.0 L code = %LYMPH) Hematology (test 8.7 % 0.0-10.0 N code = %MONO) Hematology (test 3.0 % 0.0-10.0 N code = %EOS) Hematology (test 0.5 % 0.0-1.0 N code = %BASO) Hematology (test 3.4 thou/uL 1.40-6.50 N code = NEUT#) Hematology (test 0.7 thou/uL 1.20-3.40 L code = LYMPH#) Hematology (test 0.4 thou/uL 0.11-0.59 N code = MONO#) Hematology (test 0.1 thou/uL 0.0-0.7 N code = EOS#) Hematology (test 0.0 thou/uL 0.0-0.2 N code = BASO#) Hematology (test SLIGHT = 6-15 See_Comment [Automate d code = MA) cells (100X) message] The sy stem which generated this result transmitted reference range : 0-5/hpf. The reference range was not used to interpret this result as normal/abnormal . Hematology (test Appears Decreased A code = PCOMMENT) Chemistry - BNP, HgbA1c, [id number] 12:31:00 Test Item Value Reference Range Interpretation Comments Chemistry - BNP, HgbA1c, PTHi 63.5 pg/mL 0-100 N (test code = BNP) [id number] 12:27:00 Test Item Value Reference Range Interpretation Comments Chemistry (test code 136 mmol/L 136-145 N = NA-T) Chemistry (test code 3.0 mmol/L 3.5-5.1 L = K-T) Chemistry (test code 97 mmol/L 98-107 L = CL) Chemistry (test code 29 mmol/L 23-31 N = CO2) Chemistry (test code 13 mmol/L 10-20 N = ANGP) Chemistry (test code 16 mg/dL 8.4-25.7 N = BUN) Chemistry (test code 0.87 mg/dL 0.7-1.3 N = CREATT) Chemistry (test code 88 Referen ce Range for = EGFRMDRD) Estimated GFR: Greater than 90 mL/min/ 1.73 m2NOTE:The MDRD equation has no t been validated for u se with theelderly (ove r 70 years of age), women, patients with serious comorbi d condition or pe rsons with extremes o fbody size, muscle ma ss, or nutritional sta tus. Chemistry (test code 167 mg/dL 80-115 H = GLU-T) Chemistry (test code 8.1 mg/dL 7.8-10.44 N = CA) Chemistry (test code 3.5 mg/dL 0.2-1.2 H = TBILI-T) Chemistry (test code 7.3 g/dL 5.8-8.1 N = TP) Chemistry (test code 2.6 g/dL 3.4-4.8 L = ALB) Chemistry (test code 4.7 g/dL 2.4-3.5 H = GLOB) Chemistry (test code 0.6 g/dL 1.2-2.2 L = AG) Chemistry (test code 140 U/L 40-110 H = ALP) Chemistry (test code 115 U/L 5-34 H = AST) Chemistry (test code 58 U/L 8-55 H = ALT) Culture, [id number] 15:07:00 Test Item Value Reference Range Interpretation Comments Culture, Blood (test code = BC) [id number] SURGICAL PATHOLOGY, LEVEL [id number] 11:59:00 [place] [address] Laboratory Printed: 06/16/20 [facility]: 1 Patient: EDDI MCGEE Birthdate: 1955 Age/Sex: 65/M Spec#: [id number]: Kwame Zimmerman MD Specimen Date: 06/15/20 Received Date: 06/15/20 Specimen: POLYP, RECTUM CLINICAL DIAGNOSIS abdominal pain PATHOLOGIC DIAGNOSIS Large intestine, rectum, "polyp," endoscopic polypectomy: - Cauterized hyperplastic polyp. Comment: This polyp has architectural characteristics of a hyperplastic polyp, but due tocautery artifa ct, the possibility of low grade adenomatous change cannot be completelyexcluded. Pathologist:Bal Michelle MD Entered by:06/16/20 - 1140 LAB.YGP PROCEDURES: [id number] GROSS DESCRIPTION A. POLYP, RECTUM The specimen is received in 10% formalin, and is labeled with the patient's name and "rectalpolyp." The specimenconsists of a portion of pink-gordon soft tissue measuring 0.2 cm. Thespecimen is entirely submitted inone cassette. Dictated by: LUIS MIGUEL VELA Entered by: 06/15/201631 LAB.YGP Patient: EDDI MCGEE Re06/11/20Loc: 2NO MR#: [id number] CONTINUED ON NEXT PAGE Dis: 06/15/20ta: DIS IN [address] [address] Laboratory Printed: 06/16/[address] [place] [address] DAEMPathology Page: 2 Patient: EDDI MCGEE [id number] (Continued) GROSS DESCRIPTION (Continued) MICROSCOPIC DESCRIPTION A microscopic examination was performed to arrive at the diagnostic conclusion reported. Signed (Electronically Signed) Bal Michelle MD 06/16/20 Patient: EDDI MCGEE Re06/11/20Loc: 2NO MR#: [id number] END OF REPORT Dis: 06/15/20ta: DIS [id number] SURGICAL PATHOLOGY, LEVEL [id number] 09:05:[address] [address] Laboratory Printed: 06/15/20 Ama RICK DAEMPathology Page: 1 Patient: EDDI MCGEE Birthdate: 1955 Age/Sex: 65/M Spec#: [id number]: Kwame Zimmerman MD Specimen Date: 06/13/20 Received Date: 06/14/20 Specimen: GASTRIC BIOPSY PATHOLOGIC DIAGNOSIS Stomach, NOS, endoscopic biopsy: - Mild reactive gastropathic changes in a background of mild chronic gastritis. - No Helicob acter pylori organisms identified. Comment: No Helicobacter pylori organisms are identified on Diff-Quik special stainperformed with adequate control. Pathologist:Champ Cochran MD Entered by:06/15/20- 0842 LAB.YGP PROCEDURES: [id number], [id number] GROSS DESCRIPTION A. GASTRIC BIOPSY The specimen is received in 10% formalin, and is labeled with the patient's name and"gastric biopsy." The specimen consists of two pink-gordon soft tissue fragments measuring 0.4cm in aggregate. The specimen is entirely submitted in one cassette. Dictated by: Kourtney Lozada Entered by: 06/14/20 - 1540 LABGenaYGP Patient: EDDI MCGEE Re06/11/20Loc: 2NO MR#: [id number] CONTINUED ON NEXT PAGE Dis: Sta: ADM IN -- [address] [address] Laboratory Printed: 06/15/20 09 DILIP DAEMPathology Page: 2 Patient: EDDI MCGEE [id number] (Con tinued) MICROSCOPIC DESCRIPTION A microscopic examination was performed to arrive at the diagnostic conclusion reported. Signed (Electronically Signed) Champ Cochran MD 06/15/20 Patient: EDDI MCGEE Re06/11/20Loc: 2NO MR#: [id number] END OF REPORT Dis: Sta: ADM INChemistry - [id number] 05:38:00 Test Item Value Reference Range Interpretation Comments Chemistry - Specials (test code = 5.20 ng/mL 7.0-31.4 L FOLATE) Chemistry - [id number] 05:34:00 Test Item Value Reference Range Interpretation Comments Chemistry - Specials Greater than 2000 211-911 H (test code = VITB12) pg/mL [id number] 05:17:00 Test Item Value Reference Range Interpretation Comments Chemistry (test code 130 mmol/L 136-145 L = NA-T) Chemistry (test code 3.5 mmol/L 3.5-5.1 N = K-T) Chemistry (test code 95 mmol/L 98-107 L = CL) Chemistry (test code 29 mmol/L 23-31 N = CO2) Chemistry (test code 10 mmol/L 10-20 N = ANGP) Chemistry (test code 21 mg/dL 8.4-25.7 N = BUN) Chemistry (test code 1.12 mg/dL 0.7-1.3 N = CREATT) Chemistry (test code 66 Referen ce Range for = EGFRMDRD) Estimated GFR: Greater than 90 mL/min/ 1.73 m2NOTE:The MDRD equation has no t been validated for u se with theelderly (ove r 70 years of age), women, patients with serious comorbi d condition or pe rsons with extremes o fbody size, muscle ma ss, or nutritional sta tus. Chemistry (test code 114 mg/dL 80-115 N = GLU-T) Chemistry (test code 8.3 mg/dL 7.8-10.44 N = CA) [id number] 04:50:00 Test Item Value Reference Range Interpretation Comments Hematology (test code = WBCT) 5.2 thou/uL 4.8-10.8 N Hematology (test code = RBCT) 3.69 mill/uL 4.70-6.10 L Hematology (test code = HGBT) 13.1 g/dL 14.0-18.0 L Hematology (test code = HCTT) 38.2 % 42.0-52.0 L Hematology (test code = MCV) 104.0 fL 78.0-98.0 H Hematology (test code = MCH) 35.6 pg 27.0-31.0 H Hematology (test code = MCHC) 34.3 g/dL 32.0-36.0 N Hematology (test code = RDW) 13.4 % 11.5-14.5 N Hematology (test code = PLTT) 67 thou/uL 130-400 L Hematology (test code = MPV) 6.5 fL 7.4-10.4 L Hematology (test code = %NEUT) 70.1 % 42.0-75.0 N Hematology (test code = %LYMPH) 16.7 % 21.0-51.0 L Hematology (test code = %MONO) 9.3 % 0.0-10.0 N Hematology (test code = %EOS) 2.9 % 0.0-10.0 N Hematology (test code = %BASO) 0.9 % 0.0-1.0 N Hematology (test code = NEUT#) 3.7 thou/uL 1.40-6.50 N Hematology (test code = LYMPH#) 0.9 thou/uL 1.20-3.40 L Hematology (test code = MONO#) 0.5 thou/uL 0.11-0.59 N Hematology (test code = EOS#) 0.2 thou/uL 0.0-0.7 N Hematology (test code = BASO#) 0.0 thou/uL 0.0-0.2 N [id number] 04:40:00 Test Item Value Reference Range Interpretation Comments Chemistry (test code 129 mmol/L 136-145 L = NA-T) Chemistry (test code 3.6 mmol/L 3.5-5.1 N = K-T) Chemistry (test code 92 mmol/L 98-107 L = CL) Chemistry (test code 26 mmol/L 23-31 N = CO2) Chemistry (test code 15 mmol/L 10-20 N = ANGP) Chemistry (test code 23 mg/dL 8.4-25.7 N = BUN) Chemistry (test code 0.94 mg/dL 0.7-1.3 N = CREATT) Chemistry (test code 81 Referen ce Range for = EGFRMDRD) Estimated GFR: Greater than 90 mL/min/ 1.73 m2NOTE:The MDRD equation has no t been validated for u se with theelderly (ove r 70 years of age), women, patients with serious comorbi d condition or pe rsons with extremes o fbody size, muscle ma ss, or nutritional sta tus. Chemistry (test code 103 mg/dL 80-115 N = GLU-T) Chemistry (test code 8.4 mg/dL 7.8-10.44 N = CA) [id number] 04:31:00 Test Item Value Reference Range Interpretation Comments Hematology (test code = WBCT) 4.9 thou/uL 4.8-10.8 N Hematology (test code = RBCT) 3.39 mill/uL 4.70-6.10 L Hematology (test code = HGBT) 12.3 g/dL 14.0-18.0 L Hematology (test code = HCTT) 35.3 % 42.0-52.0 L Hematology (test code = MCV) 104.0 fL 78.0-98.0 H Hematology (test code = MCH) 36.4 pg 27.0-31.0 H Hematology (test code = MCHC) 34.9 g/dL 32.0-36.0 N Hematology (test code = RDW) 13.3 % 11.5-14.5 N Hematology (test code = PLTT) 55 thou/uL 130-400 L Hematology (test code = MPV) 6.2 fL 7.4-10.4 L Hematology (test code = %NEUT) 72.1 % 42.0-75.0 N Hematology (test code = %LYMPH) 13.1 % 21.0-51.0 L Hematology (test code = %MONO) 11.7 % 0.0-10.0 H Hematology (test code = %EOS) 3.0 % 0.0-10.0 N Hematology (test code = %BASO) 0.2 % 0.0-1.0 N Hematology (test code = NEUT#) 3.5 thou/uL 1.40-6.50 N Hematology (test code = LYMPH#) 0.6 thou/uL 1.20-3.40 L Hematology (test code = MONO#) 0.6 thou/uL 0.11-0.59 H Hematology (test code = EOS#) 0.1 thou/uL 0.0-0.7 N Hematology (test code = BASO#) 0.0 thou/uL 0.0-0.2 N [id number] 22:52:00 Test Item Value Reference Range Interpretation Comments Urinalysis (test code = Yellow Yellow UACLR) Urinalysis (test code = Clear Clear UACLY) Urinalysis (test code = SPGR) 1.019 1.002-1.036 N Urinalysis (test code = ARNALDO) 5.0 5.0-9.0 N Urinalysis (test code = Negative Jillian/uL Negative UALEU) Urinalysis (test code = Negative Negative UANIT) Urinalysis (test code = Negative mg/dL Neg-Trace PROUADIP) Urinalysis (test code = Normal mg/dL Negative GLUCU) Urinalysis (test code = KETU) Negative mg/dL Negative Urinalysis (test code = Normal mg/dL Less than 2 UAUROB) Urinalysis (test code = Negative Negative UABIL) Urinalysis (test code = Negative Negative UABLD) Urinalysis (test code = 0-3 HPF 0-3 UARBC) Urinalysis (test code = 0-3 HPF 0-3 UAWBC) Urinalysis (test code = 0-3 HPF 0-3 UASQUAM) Urinalysis (test code = None Seen HPF None Seen UABAC) Urinalysis (test code = 4-6 LPF 0-3 A UAHYAL) Urine Source: Urine Clean CatchReference Lab [id number] 22:51:00 Test Item Value Reference Range Interpretation Comments Reference Lab Not Detected NotDetected Negative (Not Detected) Testing (test results do not preclude code = [id number]) infectionwi th SARS-CoV-2 virus, and shou ld not be the sole basis of apatient manage ment decision. Consi samuel testing for oth erviruses if clinically indicated.The u se of this assay as an In vitro diagnostic unde r theFDA Emergency Use Authorization ( EUA) is limited tolabor atories that are certif ied under the ClinicalLab oratory Improvement Trudi ndments of 1988 (CLIA), 42 U.S.C.263a, to perform high complexity tests. Reason for Testing: Admission [id number] 11:25:00 Test Item Value Reference Range Interpretation Comments Chemistry (test 0.010 ng/mL < 0.028 code = TROPI-T) Reference Ra nge 0.00 - 0.028 ng /mL Negative 0.029 - 0.29 ng/mL Indetermi jackie Greater or Equa l to 0.3 ng/mL Strongly suggests [place] [id number] 09:27:00 Test Item Value Reference Range Interpretation Comments Accuchek (test code = ACU) 112 mg/dL 70-100 H [id number] 05:39:00 Test Item Value Reference Range Interpretation Comments Hematology (test code = 5.1 thou/uL 4.8-10.8 N WBCT) Hematology (test code = 3.34 mill/uL 4.70-6.10 L RBCT) Hematology (test code = 12.4 g/dL 14.0-18.0 L HGBT) Hematology (test code = 34.9 % 42.0-52.0 L HCTT) Hematology (test code = 104.0 fL 78.0-98.0 H MCV) Hematology (test code = 37.2 pg 27.0-31.0 H MCH) Hematology (test code = 35.7 g/dL 32.0-36.0 N MCHC) Hematology (test code = 13.3 % 11.5-14.5 N RDW) Hematology (test code = 53 thou/uL 130-400 L PLTT) Hematology (test code = 6.4 fL 7.4-10.4 L MPV) Hematology (test code = 69.1 % 42.0-75.0 N %NEUT) Hematology (test code = 14.0 % 21.0-51.0 L %LYMPH) Hematology (test code = 12.1 % 0.0-10.0 H %MONO) Hematology (test code = 4.1 % 0.0-10.0 N %EOS) Hematology (test code = 0.7 % 0.0-1.0 N %BASO) Hematology (test code = 3.5 thou/uL 1.40-6.50 N NEUT#) Hematology (test code = 0.7 thou/uL 1.20-3.40 L LYMPH#) Hematology (test code = 0.6 thou/uL 0.11-0.59 H MONO#) Hematology (test code = 0.2 thou/uL 0.0-0.7 N EOS#) Hematology (test code = 0.0 thou/uL 0.0-0.2 N BASO#) Hematology (test code = SLIGHT = 6-15 cells 0-5/hpf MA) (100X) Hematology (test code = Appears Decreased A PCOMMENT) [id number] 05:12:00 Test Item Value Reference Range Interpretation Comments Chemistry (test code 128 mmol/L 136-145 L = NA-T) Chemistry (test code 3.8 mmol/L 3.5-5.1 N = K-T) Chemistry (test code 93 mmol/L 98-107 L = CL) Chemistry (test code 25 mmol/L 23-31 N = CO2) Chemistry (test code 14 mmol/L 10-20 N = ANGP) Chemistry (test code 22 mg/dL 8.4-25.7 N = BUN) Chemistry (test code 1.09 mg/dL 0.7-1.3 N = CREATT) Chemistry (test code 68 Referen ce Range for = EGFRMDRD) Estimated GFR: Greater than 90 mL/min/ 1.73 m2NOTE:The MDRD equation has no t been validated for u se with theelderly (ove r 70 years of age), women, patients with serious comorbi d condition or pe rsons with extremes o fbody size, muscle ma ss, or nutritional sta tus. Chemistry (test code 101 mg/dL 80-115 N = GLU-T) Chemistry (test code 8.3 mg/dL 7.8-10.44 N = CA) Chemistry (test code 4.4 mg/dL 0.2-1.2 H = TBILI-T) Chemistry (test code 7.0 g/dL 5.8-8.1 N = TP) Chemistry (test code 2.6 g/dL 3.4-4.8 L = ALB) Chemistry (test code 4.4 g/dL 2.4-3.5 H = GLOB) Chemistry (test code 0.6 g/dL 1.2-2.2 L = AG) Chemistry (test code 94 U/L 40-110 N = ALP) Chemistry (test code 51 U/L 5-34 H = AST) Chemistry (test code 30 U/L 8-55 N = ALT) [id number] 20:33:00 Test Item Value Reference Range Interpretation Comments Coagulation (test 15.6 sec 12.0-14.7 H code = PT-T) Coagulation (test 1.2 ATTE NTION: READ code = INR) CAREFULLY-- The recommended the rapeutic ranges for oral anticoagulanttr eatments are: ------ Low Inte nsity: 1.5 - 2.0 Moderate In tensity: 2.0 - 3.0 High Intens ity (1): 2.5 - 3.5 High Intens ity (2): 3.0 - 4.0 CRITICAL: > 4.0 Anticoagulant? [id number] 16:15:00 Test Item Value Reference Range Interpretation Comments Chemistry (test 0.010 ng/mL < 0.028 code = TROPI-R) Reference Ra nge 0.00 - 0.028 ng /mL Negative 0.029 - 0.29 ng/mL Indetermi jackie Greater or Equa l to 0.3 ng/mL Strongly suggests [place] [id number] 15:16:00 Test Item Value Reference Range Interpretation Comments Chemistry (test code 130 mmol/L 136-145 L = NA-T) Chemistry (test code 3.5 mmol/L 3.5-5.1 N = K-T) Chemistry (test code 93 mmol/L 98-107 L = CL) Chemistry (test code 26 mmol/L 23-31 N = CO2) Chemistry (test code 15 mmol/L 10-20 N = ANGP) Chemistry (test code 18 mg/dL 8.4-25.7 N = BUN) Chemistry (test code 1.08 mg/dL 0.7-1.3 N = CREATT) Chemistry (test code 69 Referen ce Range for = EGFRMDRD) Estimated GFR: Greater than 90 mL/min/ 1.73 m2NOTE:The MDRD equation has no t been validated for u se with theelderly (ove r 70 years of age), women, patients with serious comorbi d condition or pe rsons with extremes o fbody size, muscle ma ss, or nutritional sta tus. Chemistry (test code 126 mg/dL 80-115 H = GLU-T) Chemistry (test code 8.9 mg/dL 7.8-10.44 N = CA) Chemistry (test code 5.1 mg/dL 0.2-1.2 H = TBILI-T) Chemistry (test code 8.6 g/dL 5.8-8.1 H = TP) Chemistry (test code 3.0 g/dL 3.4-4.8 L = ALB) Chemistry (test code 5.6 g/dL 2.4-3.5 H = GLOB) Chemistry (test code 0.5 g/dL 1.2-2.2 L = AG) Chemistry (test code 111 U/L 40-110 H = ALP) Chemistry (test code 69 U/L 5-34 H = AST) Chemistry (test code 36 U/L 8-55 N = ALT) [id number] 15:16:00 Test Item Value Reference Range Interpretation Comments Chemistry (test code = DBILI) 2.8 mg/dL 0.1-0.3 H [id number] 15:16:00 Test Item Value Reference Range Interpretation Comments Chemistry (test code = LIP) 32 U/L 8-78 N Vaeuufzbg1235-05-41 14:37:00 Test Item Value Reference Range Interpretation Comments Chemistry (test code 131 mmol/L 136-145 L = NA-T) Chemistry (test code 3.5 mmol/L 3.5-5.1 N = K-T) Chemistry (test code 93 mmol/L 98-107 L = CL) Chemistry (test code 25 mmol/L 23-31 N = CO2) Chemistry (test code 17 mmol/L 10-20 N = ANGP) Chemistry (test code 17 mg/dL 8.4-25.7 N = BUN) Chemistry (test code 1.09 mg/dL 0.7-1.3 N = CREATT) Chemistry (test code 68 Referen ce Range for = EGFRMDRD) Estimated GFR: Greater than 90 mL/min/ 1.73 m2NOTE:The MDRD equation has no t been validated for u se with theelderly (ove r 70 years of age), women, patients with serious comorbi d condition or pe rsons with extremes o fbody size, muscle ma ss, or nutritional sta tus. Chemistry (test code 126 mg/dL 80-115 H = GLU-T) Chemistry (test code 8.9 mg/dL 7.8-10.44 N = CA) What test does the doctor want? C-REACTIVE PROTEIN (CRP)[id number] 14:37:00 Test Item Value Reference Range Interpretation Comments Chemistry (test code = CRP) 0.60 mg/dL = or < 0.5 H What test does the doctor want? C-REACTIVE PROTEIN (CRP)[id number] 14:18:00 Test Item Value Reference Range Interpretation Comments Hematology (test code = 6.0 thou/uL 4.8-10.8 N WBCT) Hematology (test code = 4.26 mill/uL 4.70-6.10 L RBCT) Hematology (test code = 14.9 g/dL 14.0-18.0 N HGBT) Hematology (test code = 44.3 % 42.0-52.0 N HCTT) Hematology (test code = 104.0 fL 78.0-98.0 H MCV) Hematology (test code = 35.1 pg 27.0-31.0 H MCH) Hematology (test code = 33.8 g/dL 32.0-36.0 N MCHC) Hematology (test code = 13.3 % 11.5-14.5 N RDW) Hematology (test code = 65 thou/uL 130-400 L PLTT) Hematology (test code = 6.3 fL 7.4-10.4 L MPV) Hematology (test code = 79.4 % 42.0-75.0 H %NEUT) Hematology (test code = 10.1 % 21.0-51.0 L %LYMPH) Hematology (test code = 9.3 % 0.0-10.0 N %MONO) Hematology (test code = 1.2 % 0.0-10.0 N %EOS) Hematology (test code = 0.0 % 0.0-1.0 N %BASO) Hematology (test code = 4.8 thou/uL 1.40-6.50 N NEUT#) Hematology (test code = 0.6 thou/uL 1.20-3.40 L LYMPH#) Hematology (test code = 0.6 thou/uL 0.11-0.59 H MONO#) Hematology (test code = 0.1 thou/uL 0.0-0.7 N EOS#) Hematology (test code = 0.0 thou/uL 0.0-0.2 N BASO#) Hematology (test code = SLIGHT = 6-15 cells 0-5/hpf MA) (100X) Hematology (test code = SLIGHT = 2-3 cells 0-2/hpf POLY) (100X) Hematology (test code = Appears Decreased A PCOMMENT) CT [facility] 1955 [facility] Name: EDDI MCGEE [address] Phys: [place] [address] : 1955 Age: 65 SEX:M [phone] Exam Date: 04/11/21 Status: REG ERAcct: [id number] Loc: ERS Pt Unit #: [id number] Report #: [id number] CC: ED TEMP PROVIDER LorinMichelle duff SCAN REPORT Order # Category/Exam [id number] CT/CT Abdomen Pelvis W Con ([id number]): . Results CT ABDOMEN AND PELVIS WITH IV CONTRAST 04/11/2021 CLINICAL INFORMATION: Abdominal pain and abdominal distention. Nausea and vomiting. COMPARISON: 06/11/2020 Technique: Multiple contiguous axial CT images are obtained through the abdomen and pelvis with IV contrast. Coronal reformatted images are pr ovided. FINDINGS: Lower Chest: Incomplete visualization of a moderate-sized right pleural effusion with associated passive atelectasis. Minimal atelectasis present at the left lung base Vessels: Vascular calcifications in a normal caliber abdominal aorta. Abdomen: Portal vein:Main portal vein is mildly dilated measuring 1.8 cm in diameter. Portal vein is patent.There are splenic varices present, and the splenic vein is dilated. Gallbladder: Mildly distended but similar in size compared to prior exam. Small calcification seen in the wall of the fundus of the gallbladder and unchanged. Liver: Cirrhotic morphology of the liver is again present with small size of the liver and peripheral nodular contour. There is mild dilatation of the left hepatic bile ducts. This is a stable finding. Common duct does not appear to be dilated. Spleen: Enlarged measuring 17.2 cm in craniocaudal dimensions appear Pancreas: within normal limits. Adrenals: within normal limits. Kidneys: Right renal cyst again seen. Left kidney has a normal CT appearance. Bowel: Normal in caliber. A short segment of fluid-filled mildly dilated loops of small bowel seen left abdomen which may be attributable to peristalsis. There is no abrupt transition or findings to suggest evidence of a bowel obstruction. Appendix: The appendix is visualized and normal in caliber. Peritoneum: Small amount of intraperitoneal free fluid is present.Mesentery and Retroperitoneum: A few mildly prominent aortocaval lymph nodes are seen which are notenlarged by CT size criteria. Abdominal Wall: A small fat-containing umbilical hernia is present with fluid seen in the hernia defect. Pelvis: Reproductive Organs: No pelvic masses. Bladder: within normal limits. Bones: No suspicious lytic or sclerotic osseous lesions. IMPRESSION: 1. Moderate size rightpleural effusion and atelectasis with minimal ascites. 2. Cirrhosis and evidence of portal hypertension with evidence of splenomegaly and splenic varices. 3. Nonspecific fluid-filled dilated loops of small bowel in the left abdomen which is probably attributable to peristalsis. Reported By: Darvin Jj MD Electronically Signed Date/Time: 04/11/21 1422 Technologist: ZINA Dictated Date/Time: 04/11/21 1408 Transcribed Date/Time:XR Chest 1 View Portable [facility] ED[facility] : 1955 [facility] Pt Name: EDDI MCGEE [address] Phys:[place] [address] : 1955 Age: 65 SEX:M [phone] Exam Date: 10/07/20 Status: ADM IN Acct: [id number] Loc: 2SW Pt Unit #: [id number] Report #: [id number] CC: Hyacinth Gamez MD, MALIK MD IMAGING SERVICES REPORT Order # Category/Exam [id number] RAD/XR Chest 1 View Portable ([id number]): . Results Chest one view HISTORY: Pleural effusion. Follow-up. COMPARISON: 10/05/2020. FINDINGS: Cardiac silhouette remains partially obscured by right pleural fluid that now layers morethan on the prior study, where patient was likely semiupright. Overall the volume favored to be stable. Pulmonary vasculature upper limits of normal. Minimal leftward shift of the mediastinum. No evidence of pneumothorax. IMPRESSION : Large right pleural effusion and other findings are stable. Reported By: Alma Tipton MD Elect ronically Signed Date/Time: 10/07/20933 Technologist: Dictated Date/Time: 10/07/20931 Transcribed Date/Time:US Paracentesis with Imaging [facility]: EDDI [facility] : 1955 [facility] Pt Name: EDDI MCGEE [address] Phys: [place] [address] : 1955 Age: 65 SEX:M [phone] Exam Date: 10/06/20 Status: ADM IN Acct: [id number] Loc: 2SW Pt Unit #: [id number] Report #: [id number] CC: MAGALY CORONADO ULTRASOUND REPORT Order # Category/Exam [id number] ULT/US Paracentesis with Imaging ([id number]): . Results Ultrasound-guided paracentesis: HISTORY: Cirrhosis and symptomatic ascites. FINDINGS: Informed consent obtained prior to the procedure. Preprocedural imaging demonstrated intraperitoneal free fluid. An area was marked in the Right lower quadrant , and then meticulously prepped and draped in normalsterile fashion and anesthetized with 1% buffered lidocaine. With direct sonographic guidance, q69-dypux needle and 5 Albanian Yueh catheter were advanced into the abdomen. After the return of fluid, the catheter was advanced, and the needle was removed. Approximately 3.2 L of clear brownish fluid was aspirated. The introducer sheath was removed, and hemostasis was achieved with direct pressure. Sugey sterile dressing was placed. The patient tolerated the procedure well and without immediate complication. IMPRESSION: Technically successful ultrasound- guided paracentesis. Reported By: Darvin Jj MD Electronically Signed D ate/Time: 10/06/201215 Technologist: Dictated Date/Time: 10/06/20 1216 Transcribed Date/Time:CTA Angio Chest W WO Con [facility]: EDDI [facility]CG[facility] : 1955 [facility] Pt Name: EDDI MCGEE [address] Phys:Michelle Fierro, [place] [address] : 1955 Age: 65 SEX:M [phone] Exam Date: 10/05/20 Status: REG ER Acct: [id number] Loc: ERS Pt Unit #: [id number] Report #: [id number] CC: Michelle Fierro DO CAT SCAN REPORT Order # Category/Exam [id number] CT/CTA Angio Chest W WO Con ([id number]): . Results CT ANGIOGRAM THORAX WITH IV CONTRAST AND 3-D RECONSTRUCTIONS CLINICAL INDICATION: Dyspnea. Patient has been feeling short of breath last few days. COMPARISON: None FINDINGS: Pulmonary arteries: No filling defects are seen in the pulmonary arteries to suggest a pulmonary embolus. Aorta: Vascular calcifications are seen at the aortic arch. Thoracic aorta is normal in caliber without evidence of an a ortic dissection. Lungs: Large right pleural effusion is present with consolidation right lung likely attributable topassive atelectasis. Pneumonia would be difficult to entirely exclude. The left lungis clear without pulmonary nodule or consolidation. Mediastinum: No enlarged lymph nodes are seen byCT size criteria. Thyroid gland: Left lobe of thyroid gland is small in size. Visualized right lobe of thyroid gland has a grossly normal CT appearance. Osseous structures: No suspicious lytic or sclerotic osseous lesion. Chest wall: There is a circumscribed fat density lesion in the right infraspinatus muscle measuring2.3 cm most suggestive of an intramuscular lipoma. Upper abdomen: Cirrhotic morphology of the liver is present which also appears small in size. The spleen is incompletely imaged but is enlarged and measures 14.3 cm in AP dimensions. Moderate amount of ascites is partially imaged in the visualized upper abdomen. IMPRESSION: 1. No CT evidence of a pulmonary embolus. 2. Large right pleural effusion with consolidation right lung probably attributable to passive atelectasis. Pneumonia would be difficult to entirely exclude. 3. Moderate ascites partially imaged. 4. Cirrhotic morphologyof the liver with evidence of splenomegaly. Spleen is incompletely imaged. Reported By: Dravin Jj MD Electronically Signed Date/Time: 10/05/20 1604 Technologist: CHARLOTTE Dictated Date/Time: 10/05/20 1559 Transcribed Date/Time:XR Chest [facility]able [facility] : 1955 [facility] Pt Name: EDDI GUTIERREZ [address] Phys: [place] [address] : 1955 Age: 65 SEX:M [phone] Exam Date: 10/05/20 Status: REG ERAcct: [id number] Loc: ERS Pt Unit #: [id number] Report #: [id number] CC: Vadim Michelle IMAGING SERVICES REPORT Order # Category/Exam [id number] RAD/XR Chest 1 View Portable ([id number]): . Results XR Chest 1 View Portable HISTORY: Dyspnea and chest pain COMPARISON: None FINDINGS: There is a moderate-sized right pleural effusion with adjacent infiltrate/atelectatic change. The left lung is unremarkable. The heart size is normal. No pneumothoraces are seen. IMPRESSION: Moderate-sized right pleural e ffusion. Reported By: Timothy Salazar MD Electronically Signed Date/Time: 10/05/20 1150 Technologist: MARCIAL Dictated Date/Time: 10/05/20 1149 Transcribed Date/Time:CT [facility]domen Pelvis [facility] : 1955 [facility] Pt Name: EDDI MCGEE [address] Phys: [place] [address] : 1955 Age: 65 SEX:M [phone] Exam Date: 06/11/20 Status: REG ER Acct: [id number] Loc: ERS Pt Unit #: [id number] Report #: [id number] CC: Frederick Capone MD CAT SCAN REPORT Order # Category/Exam [id number] CT/CT Abdomen Pelvis W Con ([id number]): . Results CT abdomen and pelvis with IV contrast HISTORY: Abdominal pain. Cirrhosis. FINDINGS: Small amount right pleural fluid. 2.2 cm cyst at the superior pole of the left kidney. Noevidence of urinary tract obstruction. Spleen is enlarged up to 14.7 cm. Distended veins present near the splenic hilum. Partial recanal ization of the umbilical vein. Small focus of dystrophic calcification in the wall of the gallbladder fundus. Irregular contour ofthe liver. No evidence of bowel obstruction. Mild wall thickening and edematous appearance of the colon and, to a lesser extent, the small bowel. Small amount of free fluidpresent throughout the abdomen. Appendix not inflamed. Dystrophic calcification of the prostate gland. Degenerative changes lumbar spine and hips. Nonenlarged, nonspecific lymph nodes throughout the retroperitoneum. IMPRESSION : Cirrhosis and findings of portal venous hypertension, including splenomegaly, splenic varices, small amount of ascites, small amount right pleural fluid, and congestive appearance of the bowel. Other incidental-type findings as detailed above. Reported By: Alma Tipton MD Electronically Signed Date/Time: 06/11/20 1618 Technologist: GUZMAN Dictated Date/Time: 06/11/20 1611 Transcribed Date/Time:
[2022-05-23 13:42] LABS: Absolute Lymphocytes (CBC) 0.6 K/uL (0.7-4.9); Hematocrit 32.2 % (39.6-49.0); Lymphocytes % 18.7 % (15.3-44.8); MCV 95.8 fL (80-100); MPV 6.9 fL (7.6-11.3); RBC Red Blood Cell Count 3.36 M/uL (4.33-5.43)
[2022-05-23 13:44] LABS: Platelet Estimate DECR; Platelets, Giant PRESENT; White Blood Cell Scan OK (OK)
[2022-05-23 13:45] LABS: Blood Morphology Comment NOT SEEN (NOT SEEN)
[2022-05-23 13:47] LABS: Protime INR 1.15
[2022-05-23 13:53] LABS: SARS-CoV-2 Antigen Rapid Res Negative (Negative)
[2022-05-23 14:05] LABS: Albumin 3.2 g/dL (3.4-5.0); Bilirubin Direct 0.3 mg/dL (0-0.2); Bilirubin Total 0.7 mg/dL (0.2-1.0); Magnesium 2.1 mg/dL (1.8-2.4); Potassium 3.9 mmol/L (3.5-5.1); Protein, Total 7.2 g/dL (6.4-8.2); Troponin High Sensitivity 9.1 pg/mL (<58.9)
--- NOTE | 2022-05-23 14:30 | RAD REPORT ---
EXAM DESCRIPTION: [facility] Angio05/23/2022 2:19 pm CLINICAL HISTORY: Left-sided weakness COMPARISON: None TECHNIQUE: 50 cc Isovue 370 was administered intravenously. 3D MIP reconstruction performed All CT scans are performed using dose optimization technique as appropriate and may include automated exposure control or mA/KV adjustment according to patient size. FINDINGS: Mild plaque is present within the common carotid, internal carotid and external carotid a rteries bilaterally The vertebral arteries are unremarkable. No dissection seen IMPRESSION: Mild plaque within the carotid arteries NASCET criteria used. Mild 0-49% stenosis Moderate 50-69% stenosis Severe 70-99% stenosis
--- NOTE | 2022-05-23 14:33 | RAD REPORT ---
EXAM DESCRIPTION: CTHead angio05/23/2022 2:19 pm CLINICAL HISTORY: Left-sided weakness COMPARISON: None TECHNIQUE: CT angiogram of the head was obtained. 3D MIPS reconstruction performed. All CT scans are performed using dose optimization technique as appropriate and may include automated exposure control or mA/KV adjustment according to patient size. FINDINGS: The basilar, internal carotid, anterior cerebral, middle cerebral and posterior cerebral a rteries appear unremarkable An aneurysm is not seen. A significant stenosis is not noted. IMPRESSION: Unremarkable CT angiogram head.
--- NOTE | 2022-05-23 14:47 | ER ---
Nurse's Notes [facility] Name: Martin Jones Age: 67 yrs Sex: Male : 1955 Arrival Date: 05/23/2022 Time: 12:36 Bed 8 Private MD: Diagnosis: Stroke;Left sided weakness;Anemia, unspecified Presentation: 05/23 12:37 Chief complaint: EMS states: "pt reporting left sided weakness for 12+ hours now. the jd3 pt reports that as far as he can remember he had the numbness and weakness to the left side of his body since he woke up yesterday. so roughly [id number] yesterday morning. he is also reporting a headache reporting at 05/01.". Coronavirus screen: At this time, the client does not indicate any symptoms associated with coronavirus-19. Ebola Screen: No symptoms or risks identified at this time. Initial Sepsis Screen: Does the patient meet any 2 criteria? No. Patient's initial sepsis screen is negative. Does the patient have a suspected source of infection? No. Patient's initial sepsis screen is negative. Risk Assessment: Do you want to hurt yourself or someone else? Patient reports no desire to harm self or others. Onset of symptoms was May 22, 2022. 12:37 Method Of Arrival: EMS: [facility] 12:37 Acuity: [facility] 3 [facility] 12:42 An acute neurological deficit is present. The charge nurse has been notified. The j patient has been moved to a treatment area. Pre-hospital glucose is not applicable to this patient. Triage Assessment: 12:42 The onset of the patients symptoms was May 22, 2022 at 06:00. General: Appears in jd3 no apparent distress. comfortable, Behavior is calm, cooperative, appropriate for age. Pain: Complains of pain in head. EENT: No signs and/or symptoms were reported regarding the EENT system. Neuro: Holland Agitation-Sedation Scale (RASS): 0 - Alert and Calm Level of Consciousness is awake, alert, obeys commands, Oriented to person, place, time, situation, Computing Architect are weak on left Weakness in left arm(s) leg(s) Speech is normal, Facial droop on left, Numbness in right arm and right leg Reports weakness in right arm and right leg. Cardiovascular: Capillary refill < 3 seconds Patient's skin is warm and dry. Rhythm is regular. Respiratory: Airway is patent Respiratory effort is even, unlabored, Respiratory pattern is regular, symmetrical, Denies cough, shortness of breath. GI: No signs and/or symptoms were reported involving the gastrointestinal system. : No signs and/or symptoms were reported regarding the genitourinary system. Derm: Skin is intact, Skin is dry, Skin is normal, Skin temperature is warm. Musculoskeletal: Circulation, motion, and sensation intact. Range of motion: limited in left side. Stroke Activation: Symptom onset > 6 hours Physician: Stroke Attending; Name: ; Notified At: ; Arrived At: Physician: Chief Stroke Resident; Name: ; Notified At: ; Arrived At: Physician: Stroke Resident; Name: ; Notified At: ; Arrived At: Physician: ED Attending; Name: ; Notified At: ; Arrived At: Physician: ED Resident; Name: ; Notified At: ; Arrived At: Historical: - Allergies: 12:40 No Known Allergies; jd3 - Home Meds: 12:50 gabapentin oral [Active]; lactulose Oral [Active]; Lunesta oral [Active]; jd3 Spironolactone Oral [Active]; tamsulosin oral [Active]; tramadol Oral [Active]; Valacyclovir Oral [Active]; Ventolin HFA 90 mcg/actuation Nebulizer HFAA [Active]; - PMHx: 12:40 cirrhosis of liver; jd3 12:41 Hep C; Pancreatitis; jd3 - PSHx: 12:41 lung; jd3 - Immunization history:: Adult Immunizations up to date, Client reports having NOT received the Covid vaccine. Flu vaccine is not up to date. - Social history:: Smoking status: Patient reports the use of cigarette tobacco products, smokes one-half pack cigarettes per day. Screenin:47 Abuse screen: Denies threats or abuse. Nutritional screening: No deficits noted. jd3 Tuberculosis screening: No symptoms or risk factors identified. Fall Risk Fall in past 12 months (25 points). Ambulatory Aid- None/Bed Rest/Nurse Assist (0 pts). Gait- Weak (10 pts.). Mental Status- Oriented to own ability (0 pts). Total Rendon Fall Scale indicates Low Risk Score (25-44 pts). Fall prevention measures have been instituted. Side Rails Up X 2 Placed close to Nursing Station Frequent Obs/Assesments occuring Family Present and informed to notify staff if they need to leave bedside. Assessment: 12:44 VAN Scoring: Arm Drift: Minor drift Visual Disturbance: No visual disturbance noted. jd3 Aphasia: No aphasia noted. Neglect: No neglect noted. Patient has been NPO before screening. The patient is alert, and able to follow commands. The patient does not exhibit slurred or garbled speech. The patient is not exhibiting difficulty speaking. The patient does not exhibit difficulty understanding words. The patient is able to swallow own secretions with no drooling or need for suction. Patient tolerated one teaspoon of water. No drooling, immediate coughing, gurgling, or clearing of the throat was noted. The patient tolerated 90mL of water. No drooling, immediate coughing, gurgling, or clearing of the throat was noted. The patient passed the bedside swallow screening. Oral medications may be given as ordered. Contact Physician for further diet orders. Provider notified of bedside swallow screening results: Pedro Luis Gallo DO. TNKase (Tenecteplase) Screening: Contraindications: Patient reports onset of signs and symptoms of stroke greater than 6 hours ago: Yes. General: see triage assessment. 14:00 Reassessment: Patient appears in no apparent distress at this time. No changes from jd3 previously documented assessment. Patient and/or family updated on plan of care and expected duration. Pain level reassessed. Patient is alert, oriented x 3, equal unlabored respirations, skin warm/dry/pink. family at bedside. 15:19 Reassessment: Patient appears in no apparent distress at this time. No changes from jd3 previously documented assessment. Patient and/or family updated on plan of care and expected duration. Pain level reassessed. Patient is alert, oriented x 3, equal unlabored respirations, skin warm/dry/pink. awaiting admission. 16:15 Reassessment: Patient appears in no apparent distress at this time. Patient and/or jd3 family updated on plan of care and expected duration. Pain level reassessed. Patient is alert, oriented x 3, equal unlabored respirations, skin warm/dry/pink. 17:15 Reassessment: Patient appears in no apparent distress at this time. No changes from jd3 previously documented assessment. Patient and/or family updated on plan of care and expected duration. Pain level reassessed. Patient is alert, oriented x 3, equal unlabored respirations, skin warm/dry/pink. 18:15 Reassessment: Patient appears in no apparent distress at this time. No changes from jd3 previously documented assessment. Patient and/or family updated on plan of care and expected duration. Pain level reassessed. Patient is alert, oriented x 3, equal unlabored respirations, skin warm/dry/pink. 19:29 General: Appears uncomfortable, slender, Behavior is calm, cooperative, appropriate for aa9 age. Neuro: Level of Consciousness is awake, alert, obeys commands, Gait is unsteady. Neuro: Oriented to person, place, time, situation, Computing Architect are equal bilaterally Weakness Speech is normal, Facial symmetry appears normal. Cardiovascular: Patient's skin is warm and dry. Respiratory: Airway is patent Respiratory effort is even, unlabored. GI: No signs and/or symptoms were reported involving the gastrointestinal system. : No signs and/or symptoms were reported regarding the genitourinary system. Derm: Skin with poor turgor. 19:39 Reassessment: attempted to call report, instructed to wait for call back. jb4 Vital Signs: 12:41 BP 108 / 98; Pulse 82; Resp 18 S; Temp 98.0(TE); Pulse Ox 99% on R/A; Weight 65.77 kg jd3 (R); Height 5 ft. 6 in. (167.64 cm) (R); Pain 10/10; 14:01 BP 108 / 69; Pulse 81; Resp 16; Pulse Ox 99% on R/A; jd3 15:19 BP 109 / 64; Pulse 80; Resp 16; Pulse Ox 99% on R/A; jd3 18:31 BP 97 / 57; Pulse 85; Resp 16; Pulse Ox 99% on R/A; jd3 19:35 BP 105 / 71; Pulse 86; Resp 18; Pulse Ox 98% on R/A; jb4 12:41 Body Mass Index 23.40 (65.77 kg, 167.64 cm) jd3 NIH Stroke Scale Scores: 12:44 NIHSS Score: 4 jd3 12:57 NIHSS Score: 7 ms3 ED Course: 12:36 Patient arrived in ED. jd3 12:36 Aquilino Matamoros, RN is Primary Nurse. jd3 12:37 Pedro Luis Gallo DO is Attending Physician. ms3 12:40 Triage completed. jd3 12:42 Arm band placed on. jd3 12:47 Patient has correct armband on for positive identification. Bed in low position. Call jd3 light in reach. Side rails up X2. Client placed on continuous cardiac and pulse oximetry monitoring. NIBP monitoring applied. car rental deliverer on. Pulse ox on. NIBP on. Warm blanket given. 13:00 Inserted saline lock: 20 gauge in right antecubital area, using aseptic technique. jd3 Blood collected. placed by JM chan. 13:08 Stroke CXR 1 View In Process Unspecified. EDMS 13:13 CT Stroke Brain w/o Contrast In Process Unspecified. EDMS 14:20 CT Head Angio In Process Unspecified. EDMS 14:21 CT Neck Angio In Process Unspecified. EDMS 14:47 Reid Chris is Hospitalizing Provider. ms3 19:29 Patient has correct armband on for positive identification. Bed in low position. Call aa9 light in reach. Side rails up X2. Client placed on continuous cardiac and pulse oximetry monitoring. NIBP monitoring applied. Warm blanket given. Assisted with urinal. 20:16 No provider procedures requiring assistance completed. Patient admitted, IV remains in aa9 place. Administered Medications: No medications were administered Medication: 12:47 VIS not applicable for this client. jd3 Point of Care Testing: Blood Glucose: 14:05 Blood Glucose: 105 mg/dL; jd3 Ranges: Outcome: 14:47 Decision to Hospitalize by Provider. ms3 20:16 Admitted to Med/surg accompanied by rocio, via wheelchair, room 202, with chart, Report aa9 called to Receiving nurse 20:16 Condition: stable aa9 20:16 Patient left the ED. aa9 NIH Stroke Scale - NIH Stroke Score Date: 05/23/2022 Time: 12:44 Total Score = 4 1a. Level of Consciousness (LOC) - 0(Alert) 1b. Level of Consciousness (LOC) (Month \\T\\ Age) - 0(Both) 1c. LOC Commands (Open \\T\\ Closes Eyes/Merchant Banker) - 0(Both) 2. Best Gaze (Lateral Gaze Paresis) - 0(Normal) 3. Visual Field Loss - 0(No visual loss) 4. Facial Palsy - 1(Minor Paralysis) 5a. Left Arm: Motor (10-second hold) - 1(Drift) 5b. Right Arm: Motor (10-second hold) - 0(No drift) 6a. Left Leg: Motor (5-second hold - always test supine) - 1(Drift) 6b. Right Leg: Motor (5-second hold - always test supine) - 0(No drift) 7. Limb Ataxia (finger/nose \\T\\ heel/roberson - test with eyes open) - 0(Absent) 8. Sensory Loss (pinprick arms/legs/face) - 1(Mild to moderate loss) 9. Best Language: Aphasia (description/naming/reading) - 0(No aphasia) 10. Dysarthria (speech clarity - read or repeat words) - 0(Normal) 11. Extinction and Inattention (visual/tactile/auditory/spatial/personal) - 0(No abnormality) Initials: jd3 NIH Stroke Scale - NIH Stroke Score Date: 05/23/2022 Time: 12:57 Total Score = 7 1a. Level of Consciousness (LOC) - 0(Alert) 1b. Level of Consciousness (LOC) (Month \\T\\ Age) - 0(Both) 1c. LOC Commands (Open \\T\\ Closes Eyes/Merchant Banker) - 0(Both) 2. Best Gaze (Lateral Gaze Paresis) - 0(Normal) 3. Visual Field Loss - 2(Complete hemianopia) 4. Facial Palsy - 1(Minor Paralysis) 5a. Left Arm: Motor (10-second hold) - 1(Drift) 5b. Right Arm: Motor (10-second hold) - 0(No drift) 6a. Left Leg: Motor (5-second hold - always test supine) - 2(Drift, some effort against gravity) 6b. Right Leg: Motor (5-second hold - always test supine) - 0(No drift) 7. Limb Ataxia (finger/nose \\T\\ heel/roberson - test with eyes open) - 1(Present in one limb) 8. Sensory Loss (pinprick arms/legs/face) - 0(Normal) 9. Best Language: Aphasia (description/naming/reading) - 0(No aphasia) 10. Dysarthria (speech clarity - read or repeat words) - 0(Normal) 11. Extinction and Inattention (visual/tactile/auditory/spatial/personal) - 0(No abnormality) Initials: ms3 Signatures: Dispatcher [employer] EDGregor Trinidad, RN RN jb4 Aquilino Matamoros RN RN jd3 Pedro Luis Gallo DO DO ms3 Allegra Cabral, RN RN aa9 Corrections: (The following items were deleted from the chart) 12:41 12:40 PSHx: paracentesis; jd3 jd3 14:01 13:15 Inserted saline lock: 20 gauge in right antecubital area, using aseptic jd3 technique. Blood collected. [facility] jd3
--- NOTE | 2022-05-23 14:47 | EDPHYS ---
Physician Documentation [facility] Name: Martin Jones Age: 67 yrs Sex: Male : 1955 Arrival Date: 05/23/2022 Time: 12:36 Bed 8 Private MD: ED Physician Pedro Luis Gallo HPI: 05/23 12:57 This 67 yrs old Male presents to ER via EMS with complaints of left sided weakness that ms3 began yesterday morning. 12:57 The patient presents to the emergency department with weakness of the left upper ms3 extremity, that is moderate, left lower extremity, that is moderate, left side of the face, that is moderate. Onset: The symptoms/episode began/occurred yesterday morning. Context: occurred at home, occurred while the patient was awaking. Associated signs and symptoms: Pertinent positives: headache, Pertinent negatives: chills, fever. Severity of symptoms: At their worst the symptoms were moderate in the emergency department the symptoms are unchanged Pain is currently a 10 / 10. Patient's baseline: Neuro: alert and fully oriented, Motor: no deficits, Speech: normal. Current symptoms: Currently, the patient is not experiencing any symptoms. Historical: - Allergies: 12:40 No Known Allergies; jd3 - Home Meds: 12:50 gabapentin oral [Active]; lactulose Oral [Active]; Lunesta oral [Active]; jd3 Spironolactone Oral [Active]; tamsulosin oral [Active]; tramadol Oral [Active]; Valacyclovir Oral [Active]; Ventolin HFA 90 mcg/actuation Nebulizer HFAA [Active]; - PMHx: 12:40 cirrhosis of liver; jd3 12:41 Hep C; Pancreatitis; jd3 - PSHx: 12:41 lung; jd3 - Immunization history:: Adult Immunizations up to date, Client reports having NOT received the Covid vaccine. Flu vaccine is not up to date. - Social history:: Smoking status: Patient reports the use of cigarette tobacco products, smokes one-half pack cigarettes per day. ROS: 12:57 Constitutional: Negative for fever, and chills. Eyes: Negative for injury, pain, ms3 redness, and discharge, Neck: Negative for injury, pain, and swelling, Cardiovascular: Negative for chest pain, and palpitations. Respiratory: Negative for shortness of breath, cough, wheezing, and pleuritic chest pain, Abdomen/GI: Negative for abdominal pain, nausea, vomiting, diarrhea, and constipation, Skin: Negative for injury, rash, and discoloration. 12:57 Neuro: Positive for weakness, of the left arm and left leg. 12:57 All other systems are negative. Exam: 12:57 Constitutional: This is a well developed, well nourished patient who is awake, alert, ms3 and in no acute distress. 12:57 Eyes: Pupils equal round and reactive to light, extra-ocular motions intact. Lids and lashes normal. Conjunctiva and sclera are non-icteric and not injected. Periorbital areas with no swelling, redness, or edema. ENT: Nares patent. No nasal discharge, no septal abnormalities noted. Tympanic membranes are normal and external auditory canals are clear. Oropharynx with no redness, swelling, or masses, exudates, or evidence of obstruction, uvula midline. Mucous membranes moist. Neck: Trachea midline, no cervical lymphadenopathy. Supple, full range of motion without nuchal rigidity, or vertebral point tenderness. No Meningismus. Chest/axilla: Normal chest wall appearance and motion. Nontender with no deformity. Cardiovascular: Regular rate and rhythm with a normal S1 and S2. No gallops, murmurs, or rubs. Normal PMI, no JVD. No pulse deficits. Respiratory: Lungs have equal breath sounds bilaterally, clear to auscultation and percussion. No rales, rhonchi or wheezes noted. No increased work of breathing, no retractions or nasal flaring. Abdomen/GI: Soft, non-tender, with normal bowel sounds. No distension or tympany. No guarding or rebound. No evidence of tenderness throughout. Skin: Warm, dry with normal turgor. Normal color with no rashes, no lesions, and no evidence of cellulitis. 12:57 Head/face: Noted is left facial droop. 12:57 Musculoskeletal/extremity: Extremities: noted in the left arm: weakness, noted in the left leg: weakness. 12:57 Neuro: Orientation: to person, place, time \T\ situation. Mentation: is normal, appropriate for stated age, no acute changes, responsive to voice lucid, able to follow commands, Memory: is normal, Cerebellar function: dysmetria is noted on the left, Motor: moves all fours, Sensation: no obvious gross deficits, no acute changes, numbness, is not appreciated, Gait: not tested. 13:05 ECG was reviewed by the Attending Physician. ms3 Vital Signs: 12:41 BP 108 / 98; Pulse 82; Resp 18 S; Temp 98.0(TE); Pulse Ox 99% on R/A; Weight 65.77 kg jd3 (R); Height 5 ft. 6 in. (167.64 cm) (R); Pain 10/10; 14:01 BP 108 / 69; Pulse 81; Resp 16; Pulse Ox 99% on R/A; jd3 15:19 BP 109 / 64; Pulse 80; Resp 16; Pulse Ox 99% on R/A; jd3 18:31 BP 97 / 57; Pulse 85; Resp 16; Pulse Ox 99% on R/A; jd3 19:35 BP 105 / 71; Pulse 86; Resp 18; Pulse Ox 98% on R/A; jb4 12:41 Body Mass Index 23.40 (65.77 kg, 167.64 cm) jd3 NIH Stroke Scale Scores: 12:44 NIHSS Score: 4 jd3 12:57 NIHSS Score: 7 ms3 MDM: 12:55 Patient medically screened. ms3 13:16 ED course: Dr Holt: neg acute, no blood. ms3 13:20 ED course: Discussed case with Dr Corral. Patient is greater than 24 hours. ms3 Recommends CTA head and neck for risk stratification.. 14:48 Data reviewed: vital signs, nurses notes, lab test result(s), EKG, radiologic studies, ms3 and as a result, I will admit patient. Data interpreted: consumer attorney: rate is 80 beats/min, rhythm is normal sinus rhythm, regular, with no ectopy, Interpretation: normal rate, normal rhythm. Counseling: I had a detailed discussion with the patient and/or guardian regarding: the historical points, exam findings, and any diagnostic results supporting the discharge/admit diagnosis, lab results, radiology results, the need for further work-up and treatment in the hospital. ED course: Discussed case with Dr Chris and he accepts patient. All questions answered. Discussed admission with patient and his daughter and they understand/ agree with plan.. 05/23 12:56 Order name: Basic Metabolic Panel; Complete Time: 14:25 ms3 05/23 12:56 Order name: CBC with Diff; Complete Time: 14:25 ms3 05/23 12:56 Order name: Hepatic Function; Complete Time: 14:25 ms3 05/23 12:56 Order name: High Sensitivity Troponin; Complete Time: 14:25 ms3 05/23 12:56 Order name: Magnesium; Complete Time: 14:25 ms3 05/23 12:56 Order name: Protime (+inr); Complete Time: 14:25 ms3 05/23 12:56 Order name: Ptt, Activated; Complete Time: 14:25 ms3 05/23 12:56 Order name: CT Stroke Brain w/o Contrast; Complete Time: 13:22 ms3 05/23 12:56 Order name: Stroke CXR 1 View; Complete Time: 13:22 ms3 05/23 12:56 Order name: EKG; Complete Time: 12:57 ms3 05/23 13:19 Order name: CT Head Angio; Complete Time: 14:39 ms3 05/23 13:19 Order name: CT Neck Angio; Complete Time: 14:39 ms3 05/23 13:22 Order name: SARS RAPID; Complete Time: 14:25 ms3 05/23 13:45 Order name: CBC Smear Scan; Complete Time: 14:25 EDMS 05/23 12:56 Order name: Accucheck; Complete Time: 12:58 ms3 05/23 12:56 Order name: Cardiac monitoring; Complete Time: 12:58 ms3 05/23 12:56 Order name: EKG - Nurse/Tech; Complete Time: 13:09 ms3 05/23 12:56 Order name: IV Saline Lock; Complete Time: 13:09 ms3 05/23 12:56 Order name: Labs collected and sent; Complete Time: 13:17 ms3 05/23 12:56 Order name: NPO; Complete Time: 12:58 ms3 05/23 12:56 Order name: O2 Per Protocol; Complete Time: 12:58 ms3 05/23 12:56 Order name: O2 Sat Monitoring; Complete Time: 12:58 ms3 05/23 12:56 Order name: Stroke Swallow Screen; Complete Time: 13:08 ms3 05/23 13:25 Order name: Labs - recollect needed: all the things; Complete Time: 13:33 iw 05/23 16:12 Order name: Diet Regular; Complete Time: 16:12 iw EC:05 Rate is 82 beats/min. Rhythm is regular. QRS [place] is Normal. OK interval is normal. QRS ms3 interval is normal. Clinical impression: Normal ECG. Interpreted by me. Reviewed by me. Administered Medications: No medications were administered Point of Care Testing: Blood Glucose: 14:05 Blood Glucose: 105 mg/dL; jd3 Ranges: Critical Glucose Levels:Adult <50 mg/dl or >400 mg/dl <40 mg/dl or >180 mg/dl Disposition Summary: 05/23/22 14:47 Hospitalization Ordered Hospitalization Status: Inpatient Admission ms3 Provider: Reid Chris ms3 Location: Telemetry/[facility] (Inpatient) ms3 Condition: Stable ms3 Problem: new ms3 Symptoms: are unchanged ms3 Bed/Room Type: Standard ms3 Room Assignment: (05/23/22 18:43) Diagnosis - Stroke ms3 - Left sided weakness ms3 - Anemia, unspecified ms3 Forms: - Medication Reconciliation Form ms3 - SBAR form ms3 Critical care time excluding procedures: 14:49 Critical care time: Bedside Care: 30 minutes, Consultation: 10 minutes, Family ms3 Intervention: 5 minutes. Total time: 45 minutes NIH Stroke Scale - NIH Stroke Score Date: 05/23/2022 Time: 12:44 Total Score = 4 1a. Level of Consciousness (LOC) - 0(Alert) 1b. Level of Consciousness (LOC) (Month \T\ Age) - 0(Both) 1c. LOC Commands (Open \T\ Closes Eyes/Home Health Provider) - 0(Both) 2. Best Gaze (Lateral Gaze Paresis) - 0(Normal) 3. Visual Field Loss - 0(No visual loss) 4. Facial Palsy - 1(Minor Paralysis) 5a. Left Arm: Motor (10-second hold) - 1(Drift) 5b. Right Arm: Motor (10-second hold) - 0(No drift) 6a. Left Leg: Motor (5-second hold - always test supine) - 1(Drift) 6b. Right Leg: Motor (5-second hold - always test supine) - 0(No drift) 7. Limb Ataxia (finger/nose \T\ heel/roberson - test with eyes open) - 0(Absent) 8. Sensory Loss (pinprick arms/legs/face) - 1(Mild to moderate loss) 9. Best Language: Aphasia (description/naming/reading) - 0(No aphasia) 10. Dysarthria (speech clarity - read or repeat words) - 0(Normal) 11. Extinction and Inattention (visual/tactile/auditory/spatial/personal) - 0(No abnormality) Initials: néstor NIH Stroke Scale - NIH Stroke Score Date: 05/23/2022 Time: 12:57 Total Score = 7 1a. Level of Consciousness (LOC) - 0(Alert) 1b. Level of Consciousness (LOC) (Month \T\ Age) - 0(Both) 1c. LOC Commands (Open \T\ Closes Eyes/Home Health Provider) - 0(Both) 2. Best Gaze (Lateral Gaze Paresis) - 0(Normal) 3. Visual Field Loss - 2(Complete hemianopia) 4. Facial Palsy - 1(Minor Paralysis) 5a. Left Arm: Motor (10-second hold) - 1(Drift) 5b. Right Arm: Motor (10-second hold) - 0(No drift) 6a. Left Leg: Motor (5-second hold - always test supine) - 2(Drift, some effort against gravity) 6b. Right Leg: Motor (5-second hold - always test supine) - 0(No drift) 7. Limb Ataxia (finger/nose \T\ heel/roberson - test with eyes open) - 1(Present in one limb) 8. Sensory Loss (pinprick arms/legs/face) - 0(Normal) 9. Best Language: Aphasia (description/naming/reading) - 0(No aphasia) 10. Dysarthria (speech clarity - read or repeat words) - 0(Normal) 11. Extinction and Inattention (visual/tactile/auditory/spatial/personal) - 0(No abnormality) Initials: ms3 Signatures: Dispatcher [employer] EDMS Aimee Donahue RN RN iw Garcia, Cindy, RN RN cg Davies, Jonathon, RN RN jd3 Sims, Marcus, DO DO ms3 Corrections: (The following items were deleted from the chart) 12:41 12:40 PSHx: paracentesis; jdeisi jdeisi 13:20 13:16 ED course: Dr Jonathon: neg acute.. ms3 ms3 18:43 14:47 ms3 cg
--- NOTE | 2022-05-23 16:08 | P.HP ---
Certification for Inpatient Patient admitted to: Observation With expected LOS: <2 Midnights Practitioner: I am a practitioner with admitting privileges, knowledge of patient current condition, hospital course, and medical plan of care. Services: Services provided to patient in accordance with Admission requirements found in Title 42 Section 412.3 of the Code of Federal Regulations Patient History Date of Service: 05/23/22 Reason for admission: Left-sided weakness History of Present Illness: 67-year-old gentleman with a history of liver cirrhosis, past history of alcoholism and hepatitis C status post treatment and declared cured presented to the emergency department due to sudden onset left-sided weakness which occurred yesterday. Patient reports associated clumsiness in the left hand and numbness on the left side. According to the patient, his home physical therapist noted the weakness, EMS was called and patient brought to the emergency department. Stroke alert initiated in the ED. CT head, CTA head and neck unremarkable except mild internal carotid artery plaque-no significant occlusion. Dr. Corral was informed. Patient is out of the window for tPA. Besides he has severe thrombocytopenia precluding tPA. Patient was hospitalized for further evaluation and management of acute CVA. Allergies No Known Allergies Allergy (Unverified 05/23/22 15:52) - Past Medical/Surgical History -: Liver cirrhosis -: Hepatitis C-cured - Family History Father -: Cancer Mother -: Cancer - Social History Smoking Status: Current every day smoker (5 to 6 cigarettes/day) Alcohol use: No Place of Residence: Home Review of Systems Other: Patient denied any fever or cough or shortness of breath. He denied any chest pain or palpitation. Except as documented, all other systems reviewed and negative. Physical Examination - Physical Exam General: Alert, In no apparent distress, Oriented x3 HEENT: Atraumatic, PERRLA, Mucous membr. moist/pink, EOMI, Sclerae nonicteric Neck: Supple, JVD not distended Respiratory: Clear to auscultation bilaterally, Normal air movement Cardiovascular: No edema, Regular rate/rhythm, Normal S1 S2, No murmurs Capillary refill: <2 Seconds Gastrointestinal: Normal bowel sounds, Soft and benign, Non-distended, No tenderness Musculoskeletal: No swelling, No tenderness Integumentary: No rashes, No erythema Neurological: Normal speech, Cranial nerves 3-12 intact, Other (Left-sided weakness-multiple is 4/5 in left upper and lower extremities, 5/5 in the right extremities.) Lymphatics: No axilla or inguinal lymphadenopathy - Studies Laboratory Data (last 24 hrs) 05/23/22 13:30: PT 12.7 H, INR 1.15, APTT 34.7 05/23/22 13:30: WBC 3.20 L, Hgb 11.4 L, Hct 32.2 L, Plt Count 46 L* 05/23/22 13:30: Sodium 136, Potassium 3.9, BUN 33 H, Creatinine 1.31 H, Glucose 105, Magnesium 2.1, Total Bilirubin 0.7, AST 34, ALT 25, Alkaline Phosphatase 91 Assessment and Plan - Problems (Diagnosis) (1) Acute CVA (cerebrovascular accident) Current Visit: Yes Status: Acute (2) Liver cirrhosis Current Visit: Yes Status: Acute (3) Thrombocytopenia Current Visit: Yes Status: Acute (4) Chronic kidney disease, stage 2 (mild) Current Visit: Yes Status: Acute - Plan Place patient under observation on the medical floor. Telemetry Start aspirin. High risk for bleed due to thrombocytopenia but benefit outweighs risk of bleeding at this time. We will stop aspirin for any indication of bleeding. Likewise cannot order anticoagulation for DVT prophylaxis due to the severe thrombocytopenia. SCD for DVT prophylaxis Start Lipitor. Check lipid profile. Obtain MRI of the brain Echocardiogram. continue medications for liver cirrhosis. Permissive hypertension. Neurology consulted. - Advance Directives Does patient have a Living Will: No Does patient have a Durable POA for Healthcare: No
[2022-05-23] MEDS ORDERED: ONDANSETRON 4 MG/2 ML VIAL IV PRN (20:21)
[2022-05-23] MEDS ORDERED: ATORVASTATIN 20 MG TAB PO SCH (21:00)
[2022-05-23] MEDS ORDERED: MELATONIN 10 MG PO PRN (21:28)
[2022-05-23] MEDS ORDERED: MELATONIN 5 MG TABLET PO ONE ×2 (22:05→23:24)
[2022-05-24 00:15] VITALS: BMI 24.2
[2022-05-24 06:22] LABS: Absolute Lymphocytes (CBC) 0.8 K/uL (0.7-4.9); Hematocrit 32.8 % (39.6-49.0); MCV 95.2 fL (80-100); MPV 7.5 fL (7.6-11.3); RBC Red Blood Cell Count 3.44 M/uL (4.33-5.43)
[2022-05-24 06:42] LABS: Albumin 3.1 g/dL (3.4-5.0); Magnesium 2.1 mg/dL (1.8-2.4); Phosphorus 3.1 mg/dL (2.5-4.9); Potassium 4.3 mmol/L (3.5-5.1); Protein, Total 7.1 g/dL (6.4-8.2)
[2022-05-24] MEDS ORDERED: INFLUENZA VACCINE (for 6+ mo) 0.5 ML DOSE IMVAC ONE (08:00)
[2022-05-24] MEDS ORDERED: PNEUMOCOCCAL VACCINE 0.5 ML IMVAC ONE (08:00)
[2022-05-24 08:39] VITALS: O2SAT 95
[2022-05-24] MEDS ORDERED: LACTULOSE 20 GM/30 ML UCUP PO SCH (09:00)
[2022-05-24] MEDS ORDERED: Rifaximin 550 MG Tab PO SCH (09:00)
[2022-05-24] MEDS ORDERED: ASPIRIN EC 81 MG TAB PO SCH (09:00)
[2022-05-24] MEDS ORDERED: GABAPENTIN 100 MG CAP PO SCH (09:00)
--- NOTE | 2022-05-24 12:05 | RAD REPORT ---
EXAM DESCRIPTION: MRI - Brain Wo Cont - 05/24/2022 7:46 am CLINICAL HISTORY: Acute CVA Headache, drowsiness COMPARISON: Head angio dated 05/23/2022 TECHNIQUE: Multi-sequence, multiplanar MR imaging of the brain was performed without contrast. FINDINGS: No intracranial hemorrhage, hydrocephalus or extra-axial fluid collections.Mild periventri cular and deep white matter chronic microvascular ischemic changes are present. No edema or shift of midline structures. No findings to suspect brain mass. DWI is negative for acute CVA. Midline structures are normally formed. Mastoid air cells and paranasal sinuses are clear. IMPRESSION: Negative for acute CVA or other acute intracranial abnormality.
[2022-05-24] MEDS ORDERED: ALBUTEROL 2.5 MG/3 ML NEB SOL NEB ONE (12:48)
--- NOTE | 2022-05-24 12:59 | P.DS ---
Admission Date: 05/23/22 Discharge Date: 05/24/22 Disposition: ROUTINE DISCHARGE Discharge Condition: FAIR Reason for Admission: Left-sided weakness - Problems (1) Acute CVA (cerebrovascular accident) Current Visit: Yes Status: Acute (2) Liver cirrhosis Current Visit: Yes Status: Acute (3) Thrombocytopenia Current Visit: Yes Status: Acute (4) Chronic kidney disease, stage 2 (mild) Current Visit: Yes Status: Acute Brief History of Present Illness: 67-year-old gentleman with a history of liver cirrhosis, past history of alcoholism and hepatitis C status post treatment and declared cured presented to the emergency department due to sudden onset left-sided weakness. Patient reported associated clumsiness in the left hand and numbness on the left side. According to the patient, his home physical therapist noted the weakness, EMS was called and patient brought to the emergency department. Stroke alert initiated in the ED. CT head, CTA head and neck unremarkable except mild internal carotid artery plaque-no significant occlusion. Dr. Corral was informed. Patient was out of the window for tPA. Besides he has severe thrombocytopenia precluding tPA. Patient was hospitalized for further evaluation and management of acute CVA. Hospital Course: Patient placed under observation on the medical floor. MRI of the brain done did not show any acute stroke. Patient's symptoms could be related to TIA. His left extremity weakness significantly improved. Patient was able to ambulate in the hallway. He had no speech problem or swallowing problem. He tolerated his diet. Patient given aspirin for 1 day. Case discussed with neurology-Dr. Corral. Patient has severe thrombocytopenia and suspected to have portal hypertension, making him high risk for bleeding from antiplatelet therapy. We will therefore avoid aspirin. His LDL is also low at 27. We will avoid statins given his liver disease. Patient has clinically improved and deemed stable for discharge. All his home medications resumed on discharge. Vital Signs/Physical Exam: Temp Pulse Resp BP Pulse Ox 97.6 F 88 18 118/69 95 05/24/22 08:00 05/24/22 08:00 05/24/22 08:00 05/24/22 08:00 05/24/22 08:00 General: Alert, In no apparent distress, Oriented x3 HEENT: Mucous membr. moist/pink Neck: JVD not distended Respiratory: Clear to auscultation bilaterally, Normal air movement Cardiovascular: Regular rate/rhythm, Normal S1 S2 Gastrointestinal: Soft and benign, Non-distended, No tenderness Musculoskeletal: No swelling Integumentary: No cyanosis Neurological: Normal strength at 5/5 x4 extr Laboratory Data at Discharge: WBC 3.80 K/uL (4.3-10.9) L 05/24/22 05:17 Hgb 11.6 g/dL (13.6-17.9) L 05/24/22 05:17 Hct 32.8 % (39.6-49.0) L 05/24/22 05:17 Plt Count 49 K/uL (152-406) L* 05/24/22 05:17 PT 12.7 SECONDS (9.5-12.5) H 05/23/22 13:30 INR 1.15 05/23/22 13:30 APTT 34.7 SECONDS (24.3-36.9) 05/23/22 13:30 Sodium 138 mmol/L (136-145) 05/24/22 05:17 Potassium 4.3 mmol/L (3.5-5.1) 05/24/22 05:17 BUN 35 mg/dL (7-18) H 05/24/22 05:17 Creatinine 1.49 mg/dL (0.55-1.3) H 05/24/22 05:17 Glucose 100 mg/dL (74-106) 05/24/22 05:17 Phosphorus 3.1 mg/dL (2.5-4.9) 05/24/22 05:17 Magnesium 2.1 mg/dL (1.8-2.4) 05/24/22 05:17 Total Bilirubin 1.0 mg/dL (0.2-1.0) 05/24/22 05:17 AST 36 U/L (15-37) 05/24/22 05:17 ALT 27 U/L (12-78) 05/24/22 05:17 Alkaline Phosphatase 83 U/L (45-117) 05/24/22 05:17 Triglycerides 70 mg/dL (<150) 05/24/22 05:17 Cholesterol 95 mg/dL (<200) 05/24/22 05:17 HDL Cholesterol 54 mg/dL (40-60) 05/24/22 05:17 Cholesterol/HDL Ratio 1.76 05/24/22 05:17 Home Medications: Albuterol Sulfate [Albuterol Sulfate 0.083% Neb Soln] 2.5 mg IH TID 05/23/22 Budesonide/Glycopyr/Formoterol [Breztri Aerosphere Inhaler] 2 puff IH PRN PRN 05/23/22 Ergocalciferol (Vitamin D2) [Vitamin D2] 50,000 unit PO Q7D 05/23/22 Furosemide [Lasix*] 40 mg PO BIDL 05/23/22 Gabapentin [Neurontin*] 100 mg PO TID 05/23/22 Lactulose [Cephulac*] 30 ml PO BID 05/23/22 Melatonin [Melatonin ER] 1 tab PO BEDTIME 05/23/22 Rifaximin [Xifaxan] 550 mg PO BID 05/23/22 Spironolactone [Aldactone*] 100 mg PO DAILY 05/23/22 Diet: AHA Activity: Ad crystal Followup: Miles Medina FNP [Primary Care Provider] - 1-2 Weeks
[2022-05-24 13:59] VITALS: BP 120/61; TEMP 98.3
--- NOTE | 2022-05-24 19:14 | CON ---
Reason. For Consultation: Consultation called because of left-sided weakness. History Of Present Illness: Mr. Jones is a 67-year-old right-handed patient with alcoho lic liver cirrhosis, hepatitis C, treated and considered, who came to [facility] about a day 's worth of sudden onset left-sided weakness. He had difficulty holding onto objects who comes in wi th numbness as well on the left side. This was noted by physical therapist who worked with the patie nt and he was brought by EMS at [facility]. He has head CT scan and CT angiogram of the hea d and neck and were unremarkable for any acute ischemic or hemorrhagic changes. There was mild inter nal or external carotid artery plaque, but no significant occlusion identified. He on blood work had significant thrombocytopenia and because he was outside of a 4.5 hour window for intravenous tPA and outside of a 24-hour window for intra-arterial thrombolysis plus there was no large vessel disease. He was not considered a candidate for TNKase. He received hydration over the hospitalization and hi s symptoms of left-sided weakness, numbness, incoordination improved significantly. Today, his brain MRI ruled out the presence of any acute ischemic or hemorrhagic stroke, small vessel disease was eduardo ntified. His blood work today showed a platelet count of 49, white blood cell count of 3.8, hemoglob in 11. Kidney function is consistent with dehydration, creatinine initially 1.31 and today 1.49. Li liam function studies showed AST 36, ALT 27, and alkaline phosphatase 83. His LDL cholesterol was 27, HDL 54, triglycerides 70. COVID testing negative. His chest x-rays showed no significant cardiopul monary abnormalities. Past Medical History: As noted above. Family History: Positive for cancer in father and mother. Social History: The patient smokes about 6 cigarettes daily. He drank alcohol heavily in the past t hat was back about 3 years ago. Lives with family. Allergies: NO KNOWN DRUG ALLERGIES. Medications: Aspirin 81 mg daily which actually has been discontinued given his thrombocytopenia and alcoholic liver cirrhosis, Lipitor 40 mg at bedtime, gabapentin 100 mg 3 times a day, lactulose ____ at bedtime, Zofran 4 mg every 4 hours as needed, rifaximin 550 mg twice daily. Review of Systems: He has reported symptoms as noted above with left-sided weakness, incoordination, and numbness, which is mostly resolved. Physical Examination: General examination shows he is somewhat disheveled with beards and some unkempt. Otherwise, cranial nerves he has no focal deficits on cranial nerves. His motor examination in the upper and lower ext remities despite reports no significant weakness appreciated in the left upper and lower extremities are 5-/5. Sensory exam; slight decrease in left upper and right upper extremity sensation to pinpric k and temperature. Otherwise, his coordination is slow, but intact in upper and lower extremities __ Assessment: Mr. Jones is a 67-year-old patient with stroke like symptoms from which he is now mod erately resolved back to baseline. He does have cirrhosis, treated hepatitis C and history of heavy alcohol use, he smokes cigarettes currently and has good ratio of lipids, likely due to hi s poor liver function. Otherwise, he is likely to be at high risk of hemorrhage, especially low plat elets and he has taken aspirin and for recommendation is for him to take folic acid, perhaps a lower dose of statin or may stop statin altogether as his LDL again is very low and he was instructed the i mportance of stopping smoking. Plan: Discharge home. Follow up with Dr. Corral within a month. May stop statin and aspirin, fol ic acid 1 mg daily, hydrate with 8 glass of water daily, do not drink alcohol, and he may benefit fro m some outpatient physical therapy to work on his balance, gait, coordination. LB/MODL Voice ID: [id number] Report ID: [id number]
[2022-05-24] MEDS ORDERED: MELATONIN 10 MG PO SCH (21:00)
[2022-05-24] MEDS ORDERED: MELATONIN 5 MG TABLET PO SCH (23:53)
--- NOTE | 2022-05-25 06:02 | EKG ---
Test Date: 2022-05-23 Test Time: 13:05:50 Rn Research: MICHELLE MEASUREMENT RESULTS: Intervals: Rate: 82 MO: 144 QRSD: 78 QT: 378 QTc: 441 [place]: P: 66 MO: 144 QRS: 35 T: 30 INTERPRETIVE STATEMENTS: Normal sinus rhythm Normal ECG Compared to ECG 02/05/2022 13:01:51 ST (T wave) deviation no longer present Electronically Signed On 05-25-22 06:00:05 CDT by Diego Christensen
--- NOTE | 2022-05-25 06:57 | ECHO ---
HEIGHT: 5 ft 6 in WEIGHT: 150 lb 0 oz DATE OF STUDY: 05/24/[address]: Reid Chris MD 2-DIMENSIONAL: YES M.MODE: YES DOPPLER: YES COLOR FLOW: YES TDS: YES PORTABLE: YES DEFINITY: NO BUBBLE STUDY: NO DIAGNOSIS: STROKE CARDIAC HISTORY: CATHERIZATION: NO SURGERY: NO PROSTHETIC VALVE: NO PACEMAKER: NO MEASUREMENTS (cm) DIASTOLIC (NORMALS) SYSTOLIC (NORMALS) IVSd 1.1 (0.6-1.2) LA Diam 3.4 (1.9-4.0) LVEF 61% LVIDd 3.8 (3.5-5.7) LVIDs 2.6 (2.0-3.5) %FS 32% LVPWd 1.2 (0.6-1.2) Ao Diam 3.2 (2.0-3.7) 2 DIMENSIONAL ASSESSMENT: RIGHT ATRIUM: LEFT ATRIUM: RIGHT VENTRICLE: LEFT VENTRICLE: TRICUSPID VALVE: MITRAL VALVE: PULMONIC VALVE: AORTIC VALVE: PERICARDIAL EFFUSION: AORTIC ROOT: LEFT VENTRICULAR WALL MOTION: DOPPLER/COLOR FLOW: COMMENTS: TECHNICALLY DIFFICULT STUDY. GROSSLY NORMAL LEFT VENTRICULAR SIZE AND FUNCTION. NORMAL DOPPLER. NO THROMBUS. TECHNOLOGIST: LOYD BARKLEY
== END 2022-05-24 14:15 | disposition home health service (06) ==
LOC: ER 12:32 → ERHOLD 15:51 → INTOOBSV 16:50 → OBSVTOIN 16:50 → 2ND 19:39
PROVIDERS: ADMIT Internal Medicine; ATTEND Internal Medicine
DX: I63.9 Cerebral infarction, unspecified (principal); R29.707 NIHSS score 7; K74.60 Unspecified cirrhosis of liver; B19.20 Unspecified viral hepatitis C without hepatic coma; D64.9 Anemia, unspecified; D69.6 Thrombocytopenia, unspecified; N18.2 Chronic kidney disease, stage 2 (mild); Z80.9 Family history of malignant neoplasm, unspecified; F17.210 Nicotine dependence, cigarettes, uncomplicated; Z20.822 Contact with and (suspected) exposure to COVID-19
CPT/HCPCS: 93005; 93306; 85025 ×2; 80048; 36415; 83735 ×2; 84100; 85610; 80061; 80076; 85730; 84484; 80053; 70496; 70498; 70450; 71045; 70551; 92523; 94760 ×2; 99285; 87811; Q9967; G0378

== ENCOUNTER 2022-07-21 05:08 | Emergency (ER) | payer OTHER ==
--- OUTSIDE RECORDS SUMMARY | 2022-07-21 05:25 | XMS REPORT | Continuity of Care Document ---
:1955 Author Organization [facility] t Address [address] [place] [address] Care Team Providers Name Role Phone Carol Miles Primary Care Physician Hyacinth Gamez Attending Clinician Unavailable JHON AGUIRRE Attending Clinician Unavailable Jhon Aguirre MD Attending Clinician ARACELI AMATO Attending Clinician Unavailable Everette MCKENZIE, Araceli Andujar Attending Clinician Cristela Villalobos Attending Clinician Scarlet Fritz MD Attending Clinician Doctor Unassigned, [place] Attending Clinician Unavailable ANNETTE ELI Attending Clinician Unavailable Pob, [facility] Attending Clinician Unavailable Mary Poon NP Attending Clinician Kaye Baez MD Attending Clinician VIVI BELL Attending Clinician Unavailable Tian Coulter MD Attending Clinician Unavailable CHON ROLON Attending Clinician Unavailable Vivi Bell PA-C Attending Clinician [phone] Juan GONZALEZ, Sulma Hong Attending Clinician Unavailable Mariam GONZALEZ, Jacinta Nicolas Attending Clinician Unavailable 3, [facility] Attending Clinician Unavailable Gilberto WELCH, Justin Flores Attending Clinician Earl YOOC, Vivi Attending Clinician [facility] Unavailable Rudi BARRIOS, Dk Attending Clinician Unavailable Franco MCKENZIE, Luis Ceballos Attending Clinician Hair NAIK, Rios Attending Clinician Unavailable Yady Caldwell Attending Clinician Unavailable Yamil GONZALEZ, Kamala Nicolas Attending Clinician Unavailable Zulma MCKENZIE, Manuel Lakhani Attending Clinician [phone] SUYAPA WEBB Attending Clinician Unavailable Aida MCKENZIE, Keyana Resendiz Attending Clinician [phone] Hima MCKENZIE, Tk Attending Clinician [phone] Suyapa Webb MD Attending Clinician Milena Swartz MD Attending Clinician Renetta Burnette CRNA Attending Clinician [phone] SCARLET FRITZ Attending Clinician Unavailable KIRT JIANG Attending Clinician Unavailable Gwendolyn Zhu Attending Clinician Unavailable Jaison Giraldo Attending Clinician Unavailable MADDIE MIDDLETON Attending Clinician Unavailable Mary Kidd Attending Clinician Unavailable Sadie Molina RN Attending Clinician Unavailable Babatunde Aragon DO Attending Clinician Fredo Berrios DO Attending Clinician Rashad Malone MD Attending Clinician RASHAD MALONE Attending Clinician Unavailable Provider, Express Temp Attending Clinician Unavailable Fredo Chahal Attending Clinician Unavailable Sherrell Coronado Admitting Clinician Unavailable JHON AGUIRRE Admitting Clinician Unavailable Jhon Aguirre MD Admitting Clinician TK RABAGO Admitting Clinician Unavailable Mary Kidd Admitting Clinician Unavailable Physician, No Primary or Family Admitting Clinician UnavailRashad Loja MD Admitting Clinician RASHAD MALONE Admitting Clinician Unavailable Fredo Chahal Admitting Clinician Unavailable Payers Payer Name Policy Type Policy Number Effective Date Expiration Date S alejandra MEDICARE PART A \\T\\ [id number] 2021 B 00:00:00 COMMERCIAL [id number] 2021 NON-CONTRACT 00:00:00 GENERIC MEDICARE PART A \\T\\ [id number] 2021 B - MEDICARE 00:00:00 YOSEF DE LA ROSA [id number] 2021 MCR SUPP 00:00:00 Problems Condition Condition Condition Status Onset Resolution Last Treating Co mments Source Name Details Category Date Date Treatment Clinician Date Frailty Frailty Disease [facility] [place] Tobacco Tobacco Disease Active [facility] abuse abuse [facility]12 [facility] [place] Sarcopenia Sarcopenia Disease Active [facility] 00 [place] Pre-transp Pre-transp Disease Active Last [facility] lant lant 03-08 [facility] evaluation evaluation 00:00: t & Plan: Medical for liver for liver [address] [place] [address] enter transplant transplant g of this note might be different from the original. He is an acceptabl e candidate for liver transplan t pending further testing and formal review at [facility]. COPD COPD Disease Active Last [facility] (chronic (chronic 03-08 [facility] es obstructiv obstructiv 00:00: t & Plan: Medical e e [address] [place] [address] pulmonary pulmonary g of this disease) disease) note might be different from the original. He has a history of lung surgery (s/p thoracoto my in September 2021 at [facility]), asthma, and COPD. He will require Pulmonolo gy clearance prior to listing for liver transplan t. 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 He is s/p umbilical hernia repair with ACS on 02/13/22. Remains with bella in place. Continue to follow up as scheduled . Other Other Disease Active Last [facility] cirrhosis cirrhosis 02-09 [facility] L ukes of liver of liver 00:00: t & Plan: Med ical 00 [facility] g of this note might be different from the original. 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 MELD is 10. Continue with evaluatio n for liver transplan t. Other Other Disease Active Last [facility] ascites ascites 02-09 [facility] 00:00: t & Plan: Medical [address] [place] [address] g of this note might be different from the original. He has a history of ascites requiring large volume paracente sis. He appears mildly distended in clinic today. Continue to follow up with hepatolog y for managemen t and treatment . Portal Portal Disease Active [facility] hypertensi hypertensi 02-09 [facility] on on 00:00: Medical 00 [place] Hepatic Hepatic Disease Active [facility] encephalop encephalop 02-09 [facility] athy athy 00:00: Medical 00 [place] Alcohol Alcohol Disease Active Last [facility] use use 02-09 [facility] 00:00: t & Plan: Medical [address] [place] [address] g of this note might be different from the original. Denies recent alcohol use. PETH negative on 02/16/22. Generalize Generalize Disease Active [facility] d d 02-09 [facility] abdominal abdominal 00:00: Medi lino pain pain 00 [place] Acute Acute Disease Active [facility] abdominal abdominal 02-09 [facility] pain pain 00:00: Medical 00 [place] Nonrheumat Nonrheumat Disease Active U nivers ic aortic ic aortic 3-18 ity of valve valve 00:00: [place] stenosis stenosis 00 Medica l Branch NSVT NSVT Disease Active Univers (nonsustai (nonsustai 3-17 it y of barb barb 00:00: [place] ventricula ventricula 00 Me dical r r Branch tachycardi tachycardi a) a) PAC PAC Disease Active Univers (premature (premature 3-17 it y of atrial atrial 00:00: [place] contractio contractio 00 Me dical n) n) Branch SUKHDEEP (acute SUKHDEEP (acute Disease Active U nivers kidney kidney 3-17 ity of injury) injury) 00:00: 00 Medical Branch Chronic Chronic Disease Active Univers diastolic diastolic 3-17 ity of congestive congestive 00:00[place] heart heart 00 Medical failure failure Branch Other Other Disease Active Univers cirrhosis cirrhosis 3-17 ity of of liver of liver 00:00: [place] 00 Medical Branch Pleural Pleural Disease Active Univers effusion effusion 3-17 ity of 00:00: Medical Branch Elevated Elevated Disease Active Unive rs brain brain 3-17 ity of natriureti natriureti 00:00[place] c peptide c peptide 00 Medi lino (BNP) (BNP) Branch level level Pneumonia Pneumonia Disease Active Uni vers 3-16 ity of 00:00: [place] Medical Branch Allergies, Adverse Reactions, Alerts Allergy Allergy Status Severity Reaction(s) Onset Inactive Treating Comm ents Source Name Type Date Date Clinician ADHESIVE DRUG Active Med Other-Cmnt 2021-07 Univ ers TAPE-EN 0-06 ity of ICONES 00:00: 00 Medical Branch Adhesive Propensi Active Other - See 2021-07 Patient Univers Tape-En ty to comments 0-06 gets skin ity of icones adverse 00:00: tears [place] reaction 00 from tape Medic al s other Branch than paper No Known DA Active U [facility] Allergie 3-22 Clear s 00:00: Seals [address] [place] [address] No Known DA Active U [facility]ie [facility] 00[facility] St 00 [facility] Hendrickson No Known DA Active U 2019-[address] [facility] Allergie 1-20 [facility] 00:[facility] St 00 [facility] [place] NO KNOWN Drug Active Univers ALLERGIE Class ity of S [facility] [place] NO KNOWN Allergy Active [facility] ALL[facility] Social History Social Habit Start Date Stop Date Quantity Comments Source History SDOH [facility] Alcohol Std Drinks Medica l Center History SDOH [facility] Alcohol Binge Medical [facility] History SDOH [facility] Alcohol Comment Medical C enter History of tobacco Cigarette Smoker University of use [facility] [place] Alcohol intake 2022-06-27 2022-06-[address] Ruth es 00:00:00 00:00:00 non-drinker Medical Cente r (finding) Exposure to 2022-06-12 2022-06-22 Not sure University SARS-CoV-2 (event) 00:00:00 11:34:00 [facility] [place] Cigarettes smoked 2022-06-22 2022-06-22 Univers ity of current (pack per 00:00:00 00:00:00 [facility]) - Reported Branch Tobacco use and 2022-02-09 2022-02-[address] Lucretia kes exposure 00:00:00 00:00:00 Medical Center History SDOH 2022-02-09 2022-02-[address] [facility] Alcohol Frequency 00:00:00 00:00:00 [facility] Tobacco Comment 2022-02-09 2022-02-09 3 cigarettes per [facility] 00:00:00 00:00:00 day [facility] Sex Assigned At [birth year] [facility] l[facility] of 00:00:00 00:00:00 Medicine Smoking Status Start Date Stop Date Source Tobacco smoking consumption [facility] unknown Current every day smoker 2022-02-09 00:00:00 [facility] Medications Ordered Filled Start Stop Current Ordering Indication Dosage Frequency Signature Comments Components Source Medication Medication Date Date Medication? Clinician (SIG) Name Name lactated 2021-07 Yes 1000mL at 42 Univer s ringers IV 2-07 mL/hr, ity of infusion 17:15: 1,000 [place] 1[place]000 [place] 00 IV Medical Infusion, Branch CONTINUOUS , Starting on Sun06/28/22 at 1115, Until Discontinu ed, Routine, PACU lactated 2021-07- No 1000mL at 42 Unive rs ringers IV 2-07 12-07 mL/hr, ity of infusion 17:15: 19:16 1,000 mL, [place] as 1,000 mL 00 :17 IV Medical Infusion, Branch CONTINUOUS , Starting on Sun06/28/22 at 1115, Until Sun06/28/22 at 1316, Routine, PACU ondansetron 2021-07 Yes 4mg 4 mg, Slow Univers (ZOFRAN 2- IV Push, ity of (PF)) 17:14: PRN, 1 [place] injection 4 55 dose, Medical mg Starting Branch on Sun06/28/22 at 1114, Until Discontinu ed, Routine, Nausea and Vomiting (N/V), PACU ondansetron 2021-07- No 4mg 4 mg, Slow Univers (ZOFRAN 2-07 06-28 IV Push, ity of (PF)) 17:14: 19:16 PRN, 1 [place] injection 4 55 :17 dose, Medical mg Starting Branch on Sun06/28/22 at 1114, Until Sun06/28/22 at 1316, Routine, Nausea and Vomiting (N/V), PACU dexamethaso 2021-07- No PRN, Unive rs ne 08-29 Starting ity of (DECADRON 15:51: 16:40 on Sun [place] PHOSPHATE) 00 :12 06/28/22 at Med ical injection 0951, Branch Until Sun06/28/22 at 1040, Routine, Intra-op ceFAZolin 2021-07- No PRN, Univers (ANCEF) 08-29 Starting ity of injection 15:51: 16:40 on Sun [place] 00 :12 06/28/22 at Medical 0951, Branch Until Sun06/28/22 at 1040, ENRIQUE, Intra-op carbachoL 2021-07- No PRN, Univers (MIOSTAT) 08-29 Starting ity o f 0.01 % 15:51: 16:40 on Sun [place] intraocular 00 :12 06/28/22 at Me dical injection 0951, Branch Until Sun06/28/22 at 1040, Routine, Intra-op chondroitin 2021-07- No PRN, Unive rs sulf-sod 08-29 Starting ity of hyaluronate 15:47: 16:40 on Sun [place] (DUOVISC 00 :12 06/28/22 at Medic al VISCO 0947, Branch ELASTIC) Until Sun intraocular 06/28/22 at injection 1040, Routine, Intra-op water for 2021-07- No PRN, Univers irrigation 08-29 Starting ity of irrigation 15:47: 16:40 on Sun [place] solution 00 :12 06/28/22 at Medic al 0947, Branch Until Sun06/28/22 at 1040, Routine, Intra-op sodium 2021-07- No PRN, Univers chloride 08-29 Starting ity of (NS) 15:46: 16:40 on Sun [place] injection 00 :12 06/28/22 at [facility] lino 0946, Branch Until Sun06/28/22 at 1040, Routine, Intra-op neomycin-po 2021-07- No PRN, Unive rs lymyxin-dex 08-29 Starting ity of amethasone 15:46: 16:40 on [place] (MAXITROL) 00 :12 06/28/22 at [facility] ical 3.5 0946, Branch mg/g-10,000 Until Sun unit/g-0.1 06/28/22 at % 1040, ophthalmic Routine, ointment Intra-op Hyaluronida 2021-07- No PRN, Unive rs se, Human 08-29 Starting ity o f Recomb. 15:46: 16:40 on Sun [place] (HYLENEX) 00 :12 06/28/22 at [facility] injection 0946, Branch Until Sun06/28/22 at 1040, Routine, Intra-op eye block 2021-07- No PRN, Univers syringe 11 08-29 Starting ity of mL 15:45: 16:40 on Sun [place] 00 :12 06/28/22 at Medical 0945, Branch Until Sun06/28/22 at 1040, Intra-op EPINEPHrine 2021-07- No PRN, Unive rs 1:1,000 (1 08-29 Starting ity of mg/mL) 15:44: 16:40 on Sun [place] (ADRENALIN) 00 :12 06/28/22 at Ak dical injection 0944, Branch Until Sun06/28/22 at 1040, Routine, Intra-op balanced 2021-07- No PRN, Univers salt irrig 08-29 Starting ity of soln comb1 15:43: 16:40 on Sun [place] (BSS PLUS) 00 :12 06/28/22 at [facility] ica ophthalmic 0943, Branch solution Until Sun 500 mL bag 06/28/22 at 1040, Routine, Intra-op cyclopent 2021-07- No .5mL 0.5 mL, Univ ers 1%-tropic 08-29 Right Eye, ity of 1%-phenyl 14:30: 14:39 ONCE, 1 [place] 2.5%-ketor 00 :00 dose, On Medic al 0.5% Sun Branch (MYDRIATIC 06/28/22 at #5) 0830, ophthalmic Routine, solution DSU Pre-op syringe 0.5 mL lactated 2021-07 No 1000mL at 42 Unive rs ringers IV 08-29 12-07 mL/hr, ity of infusion 14:30: 14:40 1,000 mL, [place] 1,000 mL 00 :00 IV Medical Infusion, Branch ONCE, 1 dose, On Sun06/28/22 at 0830, Routine, DSU Pre-op cyclopent 2021-07- No .5mL 0.5 mL, Univ ers 1%-tropic 08-29 Right Eye, ity of 1%-phenyl 14:30: 14:39 ONCE, 1 [place] 2.5%-ketor 00 :00 dose, On Medic al 0.5% Sun Branch (MYDRIATIC 06/28/22 at #5) 0830, ophthalmic Routine, solution DSU Pre-op syringe 0.5 mL lactated 2021-07 No 1000mL at 42 Unive rs ringers IV 08-29 12-07 mL/hr, ity of infusion 14:30: 14:40 1,000 mL, [place] 1,000 mL 00 :00 IV Medical Infusion, Branch ONCE, 1 dose, On Sun06/28/22 at 0830, Routine, DSU Pre-op finasteride 2021-07 Yes 5mg Take 5 mg U nivers 5 mg tablet 08-29 by mouth ity of 11:16: daily. [address] albuterol 2021-07 Yes 1{ampul Use 1 Univ ers 2.5 mg/0.5 2-07 e} Ampule as ity of mL 11:16: directed 3 [place] nebulizer 16 (three) Medical solution times [place] daily as needed for Wheezing. finasteride 2021-07 Yes 5mg Take 5 mg U nivers 5 mg tablet 2-07 by mouth ity of 11:16: daily. [address] albuterol 2021-07 Yes 1{ampul Use 1 Univ ers 2.5 mg/0.5 2-07 e} Ampule as ity of mL 11:16: directed 3 [place] nebulizer 16 (three) Medical solution times [place] daily as needed for Wheezing. spironolact 2021-07- No 100mg QD Take [address] [facility] one 2-06 12-06 mg by [facility] (ALDACTONE) 14:28: 00:00 mouth Medi lino 100 MG 46 :00 daily. Center tablet AMILoride 2021-07- Yes Other 5mg QD Take [address] [facility] (MIDAMOR) 5 2-06 01-05 cirrhosis tablet (5 [facility] MG tablet 00:00: 23:59 of liver mg total) Medical 00 :00 (HCC) by mouth Center daily for 30 days. finasteride 2021-07 Yes 5mg Take 5 mg U nivers 5 mg tablet 2-01 by mouth ity of 12:05: daily. [address] neomycin-po 2021-07- No PRN, Unive rs lymyxin-dex 08-07 Starting ity of amethasone 15:45: 16:04 on Sun [facility] [place] (MAX[facility]ROL) 00 :50 06/07/22 Medic al 3.5 at 0945, Branch mg/g-10,000 Until Sun unit/g-0.1 06/07/22 % at 1004, ophthalmic Routine, ointment Intra-op ceFAZolin 2021-07- No PRN, Univers (ANCEF) 08-07 Starting ity of injection 15:43: 16:04 on Sun 00 :50 06/07/22 Medical at 0943, Branch Until Sun06/07/22 at 1004, ENRIQUE, Intra-op carbachoL 2021-07- No PRN, Univers (MIOSTAT) 08-07 Starting ity o f 0.01 % 15:42: 16:04 on Sun [place] intraocular 00 :50 06/07/22 Medi lino injection at 0942, Branch Until Sun06/07/22 at 1004, Routine, Intra-op dexamethaso 2021-07- No PRN, Unive rs ne 08-07 Starting ity of (DECADRON 15:33: 16:04 on Sun [place] PHOSPHATE) 00 :50 06/07/22 Medic al injection at 0933, Branch Until Sun06/07/22 at 1004, Routine, Intra-op chondroitin 2021-07- No PRN, Unive rs sulf-sod 08-07 Starting ity of hyaluronate 15:30: 16:04 on Sun [place] (DUOVISC 00 :50 06/07/22 Medical VISCO at 0930, Branch ELASTIC) Until Sun intraocular 06/07/22 injection at 1004, Routine, Intra-op EPINEPHrine 2021-07- No PRN, Unive rs 1:1,000 (1 08-07 Starting ity of mg/mL) 15:29: 16:04 on Sun [place] (ADRENALIN) 00 :50 06/07/22 Medi lino injection at 0929, Branch Until Sun06/07/22 at 1004, Routine, Intra-op balanced 2021-07- No PRN, Univers salt irrig 08-07 Starting ity of soln comb1 15:29: 16:04 on Sun [place] (BSS PLUS) 00 :50 06/07/22 Medic al ophthalmic at 0929, Branc h solution Until Sun 500 mL bag 06/07/22 at 1004, Routine, Intra-op water for 2021-07- No PRN, Univers irrigation 08-07 Starting ity of irrigation 15:21: 16:04 on Sun [place] solution 00 :50 06/07/22 Medical at 0921, Branch Until 06/07/22 at 1004, Routine, Intra-op sodium 2021-07- No PRN, Univers chloride 08-07 Starting ity of (NS) 15:21: 16:04 on Wed [place] injection 00 :50 06/07/22 Medica l at 0921, Branch Until 06/07/22 at 1004, Routine, Intra-op Hyaluronida 2021-07- No PRN, Unive rs se, Human 08-07 Starting ity o f Recomb. 15:20: 16:04 on Sun [place] (HYLENEX) 00 :50 06/07/22 Medica l injection at 0920, Branch Until Sun06/07/22 at 1004, Routine, Intra-op eye block 2021-07- No PRN, Univers syringe 11 08-07 Starting ity of mL 15:20: 16:04 on Sun [place] 00 :50 06/07/22 Medical at 0920, Branch Until Sun06/07/22 at 1004, Intra-op cyclopent 2021-07- No .5mL 0.5 mL, Univ ers 1%-tropic 08-07 Left Eye, ity of 1%-phenyl 14:15: 15:13 ONCE, 1 [place] 2.5%-ketor 00 :56 dose, On Medic al 0.5% Sun Branch (MYDRIATIC 06/07/22 #5) at 0815, ophthalmic Routine, solution DSU Pre-op syringe 0.5 mL lactated 2021-07- No 1000mL at 42 Unive rs ringers IV 08-07 11-16 mL/hr, ity of infusion 14:15: 15:13 1,000 mL, [place] 1,000 mL 00 :56 IV Medical Infusion, Branch ONCE, 1 dose, On Sun06/07/22 at 0815, Routine, DSU Pre-op cyclopent 2021-07- No .5mL 0.5 mL, Univ ers 1%-tropic 08-07 Left Eye, ity of 1%-phenyl 14:15: 15:13 ONCE, 1 [place] 2.5%-ketor 00 :56 dose, On Medic al 0.5% Sun Branch (MYDRIATIC 06/07/22 #5) at 0815, ophthalmic Routine, solution DSU Pre-op syringe 0.5 mL lactated 2021-07- No 1000mL at 42 Unive rs ringers IV 08-07 11-16 mL/hr, ity of infusion 14:15: 15:13 1,000 mL, [place] 1,000 mL 00 :56 IV Medical Infusion, Branch ONCE, 1 dose, On Sun06/07/22 at 0815, Routine, DSU Pre-op finasteride 2021-07 Yes 5mg Take 5 mg U nivers 5 mg tablet 1-16 by mouth ity of 10:35: daily. [address] albuterol 2021-07 Yes 1{ampul Use 1 Univ ers 2.5 mg/0.5 1-16 e} Ampule as ity of mL 10:35: directed 3 [place] nebulizer 23 (three) Medical solution times Branch daily as needed for Wheezing. finasteride 2021-07 Yes 5mg Take 5 mg U nivers 5 mg tablet 1-16 by mouth ity of 10:35: daily. [address] albuterol 2021-07 Yes 1{ampul Use 1 Univ ers 2.5 mg/0.5 1-16 e} Ampule as ity of mL 10:35: directed 3 [place] nebulizer 23 (three) Medical solution times Branch daily as needed for Wheezing. finasteride 2021-07 Yes 5mg Take 5 mg U nivers 5 mg tablet 1-16 by mouth ity of 10:35: daily. [address] albuterol 2021-07 Yes 1{ampul Use 1 Univ ers 2.5 mg/0.5 1-16 e} Ampule as ity of mL 10:35: directed 3 [place] nebulizer 23 (three) Medical solution times Branch daily as needed for Wheezing. albuterol 2021-07 Yes 1{ampul Use 1 Univ ers 2.5 mg/0.5 1-16 e} Ampule as ity of mL 10:35: directed 3 [place] nebulizer 23 (three) Medical solution times Branch daily as needed for Wheezing. OLANZapine 2021-07 Yes 1{tbl} Take 1 Uni vers 2.5 mg 1-04 tablet by ity of tablet 00:00: mouth in [place] [address] the Medical morning. Branch OLANZapine 2021-07 Yes 1{tbl} Take 1 Uni vers 2.5 mg 1-04 tablet by ity of tablet 00:00: mouth in [place] 00 the Medical morning. Branch OLANZapine 2021-07 Yes 1{tbl} Take 1 Uni vers 2.5 mg 1-04 tablet by ity of tablet 00:00: mouth in [place] 00 the Medical morning. Branch OLANZapine 2021-07 Yes 1{tbl} Take 1 Uni vers 2.5 mg 1-04 tablet by ity of tablet 00:00: mouth in [place] the morning. [place] OLANZapine 2021-07 Yes 1{tbl} Take 1 Uni vers 2.5 mg 1-04 tablet by ity of tablet 00:00: mouth in [place] the morning. [place] OLANZapine 2021-07 Yes 1{tbl} Take 1 Uni vers 2.5 mg 1-04 tablet by ity of tablet 00:00: mouth in [place] the . [facility] 2021-07 Yes 2{puff} Inhale 2 Uni vers AEROSPHERE 0-31 Puffs as ity o f 160-9-4.8 00:00: needed. [place] mcg/actuati Medical on [facility] 2021-07 Yes 2{puff} Inhale 2 Uni vers AEROSPHERE 0-31 Puffs as ity o f 160-9-4.8 00:00: needed. [place] mcg/actuati Medical on [facility] 2021-07 Yes 2{puff} Inhale 2 Uni vers AEROSPHERE 0-31 Puffs as ity o f 160-9-4.8 00:00: needed. [place] mcg/actuati Medical on [facility] 2021-07 Yes 2{puff} Inhale 2 Uni vers AEROSPHERE 0-31 Puffs as ity o f 160-9-4.8 00:00: needed. [place] mcg/actuati Medical on [facility] 2021-07 Yes 2{puff} Inhale 2 Uni vers AEROSPHERE 0-31 Puffs as ity o f 160-9-4.8 00:00: needed. [place] mcg/actuati Medical on [facility] 2021-07 Yes 2{puff} Inhale 2 Uni vers AEROSPHERE 0-31 Puffs as ity o f 160-9-4.8 00:00: needed. [place] mcg/actuati Medical on [facility] rifAXIMin hepatic 550mg Q.5D Take [address] 550 mg Tab 04-12 encephalopa mg by [facility] 10:34: 00:00 thy mouth 2 Medical 11 :00 (two) Center times daily . rifAXIMin 2022-0 2022- No hepatic 550mg Q.5D Take [address] 550 mg Tab 04-12 encephalopa mg by [facility] 10:34: 00:00 thy mouth 2 Medical 11 :00 (two) Center times daily . rifAXIMin 2-0 2- No hepatic 550mg Q.5D Take [address] 550 mg Tab 04-12 encephalopa mg by [facility]ukes 10:34: 00:00 [place] mouth 2 Medical 11 :00 (two) Center times daily . rifAXIMin 2-0 Yes 550mg Q.5D Take [address] (Xifaxan) 9-19 mg by [facility] 550 mg Tab 09:50: mouth 2 Medi lino 48 (two) Center times daily. spironolact 2022-0 Yes 100mg QD Take [address] one 9-19 mg by Lukes (ALDACTONE) 09:50: mouth Medic al 100 MG 48 daily. Center tablet rifAXIMin 2-0 Yes 550mg Q.5D Take [address] (Xifaxan) 9-19 mg [facility] 550 mg Tab 09:50: mouth 2 Medi lino 48 (two) Center times daily. rifAXIMin 2-0 Yes 550mg Q.5D Take [address] (Xifaxan) 9-19 mg by [facility] 550 mg Tab 09:50: mouth 2 Medi lino 48 (two) Center times daily. spironolact 2-0 Yes 100mg QD Take [address] one 9-19 mg by Lukes (ALDACTONE) 09:50: mouth Medic al 100 MG 48 daily. Center tablet ergocalcife 2021-0 2021- No [id number] Take Uni vers rol, 04-06 50,000 ity of vitamin d2, 00:00: 05:59 Units by [place] 1,250 mcg 00 :00 mouth Medical (50,000 weekly. Branch unit) capsule ergocalcife 2021-0 2021- No [id number] Take Uni vers rol, 04-06 50,000 ity of vitamin d2, 00:00: 05:59 Units by [place] 1,250 mcg 00 :00 mouth Medical (50,000 weekly. Branch unit) capsule ergocalcife 2021-0 2021- No [id number] Take Uni vers rol, 04-06 50,000 ity of vitamin d2, 00:00: 05:59 Units by [place] 1,250 mcg 00 :00 mouth Medical (50,000 weekly. Branch unit) capsule ergocalcife 2022-0 2022- No [id number] Take Uni vers rol, 04-06 50,000 ity of vitamin d2, 00:00: 05:59 Units by [place] 1,250 mcg 00 :00 mouth Medical (50,000 weekly. Branch unit) capsule ergocalcife 2-0 2022- No [id number] Take Uni vers rol, 04-06 50,000 ity of vitamin d2, 00:00: 05:59 Units by [place] 1,250 mcg 00 :00 mouth Medical (50,000 weekly. Branch unit) capsule ergocalcife 2-0 2022- No [id number] Q7D Take [address] rol 04-06 capsule [facility] ([facility]itamin 00:00: 23:59 (50,000 Medic al D2) 1,250 00 :00 Units Center mcg (50,000 total) by unit) mouth once capsule a week for 12 doses. ergocalcife 2-0 2022- No [id number] Q7D Take [address] [facility] 04-06 capsule [facility] ([facility] 00:00: 23:59 (50,000 Medic al D2) 1,250 00 :00 Units Center mcg (50,000 total) by unit) mouth once capsule a week for 12 doses. ergocalcife 2022-0 2022- No [id number] Q7D Take [address] [facility] 04-06 capsule [facility] ([facility] 00:00: 23:59 (50,000 Medic al D2) 1,250 00 :00 Units Center mcg (50,000 total) by unit) mouth once capsule a week for 12 doses. furosemide 2021-0 2022- No 40mg Q.5D Take [address] [facility] (LASIX) 40 03-29 by mouth 2 Lucretia kes MG tablet 16:13: 00:00 (two) Medica l 05 :00 times Center daily. furosemide 2021-0 2022- No 40mg Q.5D Take [address] [facility] (LASIX) 40 03-29 by mouth 2 Lucretia kes MG tablet 16:13: 00:00 (two) Medica l 05 :00 times Center daily. furosemide 2021-2021- No 40mg Q.5D Take [address] [facility] (LASIX) 40 9- 09-07 by mouth 2 Lucretia kes MG tablet 16:13: 00:00 (two) Medica l 05 :00 times Center daily. furosemide 2021-0 Yes 40mg Q.5D Take [facility] 9-07 tablet (40 Ruth es MG tablet 00:00: mg total) Med ical 00 by mouth 2 Center (two) times daily. furosemide 2021-0 Yes 40mg Q.5D Take 1 [facility] 9-07 tablet (40 Ruth es MG tablet 00:00: mg total) Med ical 00 by mouth 2 Center (two) times daily. furosemide 2021-0 Yes 40mg Q.5D Take 1 [facility] ([facility] 40 9-07 tablet (40 Ruth es MG tablet 00:00: mg total) Med ical 00 by mouth 2 Center (two) times daily. VENTOLIN Yes 2{puff} Inhale 2 Un [facility] HFA 90 9-07 Puffs as ity of mcg/actuati 00:00: needed. [place] as on inhaler Medical Branch VENTOLIN Yes 2{puff} Inhale 2 [facility] HFA 90 9-07 Puffs as ity of mcg/actuati 00:00: needed. [place] as on inhaler Medical Branch VENTOLIN Yes 2{puff} Inhale 2 [facility] HFA 90 9-07 Puffs as ity of mcg/actuati 00:00: needed. [place] as on inhaler 00 Medical Branch VENTOLIN Yes 2{puff} Inhale 2 [facility] HFA 90 9-07 Puffs as ity of mcg/actuati 00:00: needed. [place] as on inhaler 00 Medical Branch VENTOLIN Yes 2{puff} Inhale 2 [facility] HFA 90 9-07 Puffs as ity of mcg/actuati 00:00: needed. [place] as on inhaler 00 Medical Branch VENTOLIN Yes 2{puff} Inhale 2 [facility] HFA 90 9-07 Puffs as ity of mcg/actuati 00:00: needed. [place] as on inhaler 00 Medical Branch spironolact 2022-0 Yes [facility] one 9-04 [place] (ALDACTONE) 00:00: of 100 MG 00 Medicin tablet e spironolact 2021-0 Yes 1{tbl} Take 1 [facility] one 100 mg 9-04 tablet by ity of tablet 00:00: mouth in [place] the Medical morning. Branch spironolact 2022-0 Yes 1{tbl} Take 1 [facility] one 100 mg 9-04 tablet by ity of tablet 00:00: mouth in [place] the Medical morning. Branch spironolact 2022-0 Yes 1{tbl} Take 1 [facility] one 100 mg 9-04 tablet by ity of tablet 00:00: mouth in [place] the Medical morning. Branch spironolact 2022-0 Yes 1{tbl} Take 1 [facility] one 100 mg 9-04 tablet by ity of tablet 00:00: mouth in [place] the Medical morning. Branch spironolact 2022-0 Yes 1{tbl} Take 1 [facility] one 100 mg 9-04 tablet by ity of tablet 00:00: mouth in [place] the Medical morning. Branch spironolact 2022-0 Yes 1{tbl} Take 1 [facility] one 100 mg 9-04 tablet by ity of tablet 00:00: mouth in [place] the Medical morning. Branch Lactulose 2022-0 Yes [facility] 20 GM/30ML 8-25 [facility] SOLN 00:00: of 00 Medicin e lactulose 2022-0 Yes 30mL Take 30 mL [facility] 10 gram/15 8-25 by mouth it[place] and 30 mL Branch at noon and 30 mL in the evening. Variable dose lactulose 2022-0 Yes 30mL Take 30 mL [facility] 10 gram/15 8-25 by mouth it[place] o f [place] and 30 mL Branch at noon and 30 mL in the evening. Variable dose lactulose 2022-0 Yes 30mL Take 30 mL [facility] 10 gram/15 8-25 by mouth ity o f mL [place]:00[place] and 30 mL Branch at noon and 30 mL in the evening. Variable dose lactulose 0 Yes 30mL Take 30 mL [facility] 10 gram/15 8-25 by mouth ity o f mL solution [place]:00[place] and 30 mL Branch at noon and 30 mL in the evening. Variable dose lactulose 0 Yes 30mL Take 30 mL [facility] 10 gram/15 8-25 by mouth ity o f mL solution [place]:00[place] and 30 mL Branch at noon and 30 mL in the evening. Variable dose lactulose 0 Yes 30mL Take 30 mL [facility] 10 gram/15 8-25 by mouth ity o f mL [place]:00[place] and 30 mL Branch at noon and 30 mL in the evening. Variable dose albuterol Yes 1{puff} Inhale [address] HFA 8-17 puff by [facility] (VENTOLIN 17:15: mouth via Med ical HFA) 90 12 inhaler Center mcg/actuati every 6 on inhaler (six) hours as needed for Wheezing. albuterol Yes 1{puff} Inhale [address] HFA 8-17 puff by [facility] (VENTOLIN 17:15: mouth via Med ical HFA) 90 12 inhaler Center mcg/actuati every 6 on inhaler (six) hours as needed for Wheezing. albuterol Yes 1{puff} Inhale [address] HFA 8-17 puff by [facility] (VENTOLIN 17:15: mouth via Med ical HFA) 90 12 inhaler Center mcg/actuati every 6 on inhaler (six) hours as needed for Wheezing. lactulose 0 2021- No 10g Q.[id number] Take [address] [facility] (CEPHULAC) 8-17 08-17 [id number] by mouth 3 [facility] 10 gram 16:54: 00:00 3D (three) Medica l packet 31 :00 times Center daily. lactulose 0 2021- No 10g Q.[id number] Take [address] [facility] (CEPHULAC) 8-17 08-17 [id number] by mouth 3 [facility] 10 gram 16:54: 00:00 3D (three) Medica l packet 31 :00 times Center daily. lactulose 2021- No 10g Q.[id number] Take [address] [facility] (CEPHULAC) 03-08 [id number] by mouth 3 [facility] 10 gram 16:54: 00:00 3D (three) Medica l packet 31 :00 times Center daily. eszopiclone Yes TAKE 1 [facility] (LUNESTA) 1 03-08 TABLET BY Col lege MG TABS 00:00: MOUTH of 00 DAILY Medicin IMMEDIATEL e Y BEFORE BEDTIME tramadol Yes 50mg Take 50 mg [place] [facility] (ULTRAM) 50 03-08 by mouth. Col lege MG tablet 00:00: 00 Medicin e traMADoL 2021- No 50mg Take [address] [facility] (ULTRAM) 50 03-08 tablet (50 L [facility] mg tablet 00:00: 00:00 mg total) Me dical 00 :00 by mouth Center every 12 (twelve) hours as needed for Pain. Max Daily Amount: 100 mg traMADoL 2021- No 50mg Take [address] [facility] (ULTRAM) 50 03-08 tablet (50 L [facility] mg tablet 00:00: 00:00 mg total) Me dical 00 :00 by mouth Center every 12 (twelve) hours as needed for Pain. Max Daily Amount: 100 mg traMADoL 2021- No 50mg Take [address] [facility] (ULTRAM) 50 03-08 tablet (50 L ukes mg tablet 00:00: 00:00 mg total) Me dical 00 :00 by mouth Center every 12 (twelve) hours as needed for Pain. Max Daily Amount: 100 mg traMADoL 2021- No 50mg Take [address] [facility] (ULTRAM) 50 02-20- tablet (50 L ukes mg tablet 00:00: 23:59 mg total) Me dical 00 :00 by mouth Center every 6 (six) hours as needed for Pain for up to 10 days. Max Daily Amount: 200 mg traMADoL 2021- No 50mg Take [address] [facility] (ULTRAM) 50 02-20- tablet (50 L ukes mg tablet 00:00: 23:59 mg total) Me dical 00 :00 by mouth Center every 6 (six) hours as needed for Pain for up to 10 days. Max Daily Amount: 200 mg traMADoL 0 2021- No 50mg Take [address] [facility] (ULTRAM) 50 02-20- tablet (50 L ukes mg tablet 00:00: 23:59 mg total) Me dical 00 :00 by mouth Center every 6 (six) hours as needed for Pain for up to 10 days. Max Daily Amount: 200 mg gabapentin 0 Yes TAKE 1 [facility] (NEURONTIN) 7-29 CAPSULE BY [facility] 100 MG 00:00: MOUTH of capsule 00 THREE Medicin TIMES A e DAY FOR 90 DAYS valacyclovi 0 Yes TAKE 1 [facility] (VALTREX) 7-29 TABLET BY Col lege 1 g tablet 00:00: MOUTH of 00 THREE Medicin TIMES A e DAY FOR 30 DAYS gabapentin 2021-0 Yes 100mg Take 100 [facility] 100 mg 7-29 mg by ity of capsule 00:00: mouth in [place] [address] the Medical morning Branch and 100 mg at noon and 100 mg in the evening. gabapentin 2022-0 Yes 100mg Take 100 Un [facility] 100 mg 7-29 mg by ity of capsule 00:00: mouth in [place] [address] the Medical morning Branch and 100 mg at noon and 100 mg in the evening. gabapentin 2022-0 Yes 100mg Take 100 Un [facility] 100 mg 7-29 mg by ity of capsule 00:00: mouth in [place] [address] the Medical morning Branch and 100 mg at noon and 100 mg in the evening. gabapentin 2022-0 Yes 100mg Take 100 Un [facility] 100 mg 7-29 mg by ity of capsule 00:00: mouth in [place] [address] the Medical morning Branch and 100 mg at noon and 100 mg in the evening. gabapentin 2022-0 Yes 100mg Take 100 Un [facility] 100 mg 7-29 mg by ity of capsule 00:00: mouth in [address] Medical morning Branch and 100 mg at noon and 100 mg in the evening. gabapentin 2022-0 Yes 100mg Take 100 Un jerarod 100 mg 7-29 mg by ity of capsule 00:00: mouth in [place] 00 the Medical morning Branch and 100 mg at noon and 100 mg in the evening. gabapentin 2021-2- No 100mg Q.[id number] Take [address] [facility] (NEURONTIN) 02-17 [id number] capsule [facility] 100 MG 00:00: 23:59 3D (100 mg Medical capsule 00 :00 total) by Center mouth 3 (three) times daily for 90 days. gabapentin 2021-0 2022- No 100mg Q.[id number] Take [address] [facility] (NEURONTIN) 02-17 [id number] capsule [facility] 100 MG 00:00: 23:59 3D (100 mg Medical capsule 00 :00 total) by Center mouth 3 (three) times daily for 90 days. gabapentin 2021-2021- No 100mg Q.[id number] Take [address] [facility] (NEURONTIN) 02-17 [id number] capsule [facility] 100 MG 00:00: 23:59 3D (100 mg Medical capsule 00 :00 total) by Center mouth 3 (three) times daily for 90 days. tamsulosin 202-0 202- No .4mg QD Take [address] [facility] (FLOMAX) 02-17 capsule [facility] 0.4 mg Cap 00:00: 23:59 (0.4 mg Med ical 24 hr 00 :00 total) by Center capsule mouth daily for 30 days. valACYclovi 2021-2021- No 1000mg Q.[id number] Take [address] [facility] (VALTREX) 02-17 [id number] tablet [facility] 1000 MG 00:00: 23:59 3D (1,000 mg Medi lino tablet 00 :00 total) by Center mouth 3 (three) times daily for 30 days. tamsulosin 2021-0 2- No .4mg QD Take [address] [facility] (FLOMAX) 02-17 capsule [facility] 0.4 mg Cap 00:00: 23:59 (0.4 mg Med ical 24 hr 00 :00 total) by Center capsule mouth daily for 30 days. valACYclovi 2-0 2022- No 1000mg Q.[id number] Take [address] [facility] (VALTREX) 02-17- [id number] tablet [facility] 1000 MG 00:00: 23:59 3D (1,000 mg Medi lino tablet 00 :00 total) by Center mouth 3 (three) times daily for 30 days. tamsulosin 2022-0 2022- No .4mg QD Take [address] [facility] (FLOMAX) 02-17 capsule [facility] 0.4 mg Cap 00:00: 23:59 (0.4 mg Med ical 24 hr 00 :00 total) by Center capsule mouth daily for 30 days. valACYclovi 2022-0 2022- No 1000mg Q.[id number] Take [address] [facility] (VALTREX) 02-17 [id number] tablet [facility] 1000 MG 00:00: 23:59 3D (1,000 mg Medi lino tablet 00 :00 total) by Center mouth 3 (three) times daily for 30 days. rifAXIMin 2022-0 Yes 550mg Take 550 [facility] (XIFAXAN) 7-14 mg by ity of 550 mg 00:00: mouth in [place] tablet 00 the Medical morning Branch and 550 mg in the evening. rifAXIMin 2022-0 Yes 550mg Take 550 [facility] (XIFAXAN) 7-14 mg by ity of 550 mg 00:00: mouth in [place] tablet 00 the Medical morning Branch and 550 mg in the evening. rifAXIMin 2022-0 Yes 550mg Take 550 [facility] (XIFAXAN) 7-14 mg by ity of 550 mg 00:00: mouth in [place] tablet 00 the Medical morning Branch and 550 mg in the evening. rifAXIMin 2022-0 Yes 550mg Take 550 [facility] (XIFAXAN) 7-14 mg by ity of 550 mg 00:00: mouth in [place] tablet 00 the Medical morning Branch and 550 mg in the evening. rifAXIMin 2022-0 Yes 550mg Take 550 [facility] (XIFAXAN) 7-14 mg by ity of 550 mg 00:00: mouth in [place] tablet 00 the Medical morning Branch and 550 mg in the evening. rifAXIMin 2022-0 Yes 550mg Take 550 [facility] (XIFAXAN) 7-14 mg by ity of 550 mg 00:00: mouth in [place] tablet 00 the Medical morning Branch and 550 mg in the evening. ipratropium 2022-0 Yes INHALE 1 [facility] (ATROVENT) 7-13 VIAL BY Colleg e 0.02 % 00:00: MOUTH VIA of nebulizer 00 NEBULIZER Medic in solution EVERY 8 e HOURS NEEDED Albuterol Yes [facility] (VENTOLIN 7-04 [place] IN) 00:00: of 00 Medicin e furosemide Yes TAKE 1 [facility] (LASIX) 40 6-21 TABLET BY Aydin ege MG tablet 00:00: MOUTH of 00 EVERY DAY Medicin e furosemide Yes 1{tbl} Take 1 [facility] 40 mg 6-21 tablet by ity of tablet 00:00: mouth in [place] 00 the Medical morning. Branch furosemide Yes 1{tbl} Take 1 [facility] 40 mg 6-21 tablet by ity of tablet 00:00: mouth in [place] 00 the Medical morning. Branch furosemide Yes 1{tbl} Take 1 [facility] 40 mg 6-21 tablet by ity of tablet 00:00: mouth in [place] 00 the Medical morning. Branch furosemide Yes 1{tbl} Take 1 [facility] 40 mg 6-21 tablet by ity of tablet 00:00: mouth in [place] 00 the Medical morning. Branch furosemide Yes 1{tbl} Take 1 [facility] 40 mg 6-21 tablet by ity of tablet 00:00: mouth in [place] 00 the Medical morning. Branch furosemide Yes 1{tbl} Take 1 [facility] 40 mg 6-21 tablet by ity of tablet 00:00: mouth in [place] 00 the Medical morning. Branch furosemide 2021-2021- No [id number] 20mg Take 1 [facility] 20 mg 3-20 04-20 tablet by ity of tablet 00:00: 04:59 mouth [place] 00 :00 daily for Medical 30 days. Branch furosemide 2021-0 2021- No [id number] 20mg Take 1 [facility] 20 mg 3-20 04-20 tablet by ity of tablet 00:00: 04:59 mouth [place] 00 :00 daily for Medical 30 days. Branch furosemide 2021- No [id number] 20mg Take 1 [facility] 20 mg 3-20 04-20 tablet by ity of tablet 00:00: 04:59 mouth [place] 00 :00 daily for Medical 30 days. Branch levoFLOXaci 2021- No [id number] 750mg Take 1 [facility] n 750 mg 3-20 03-24 tablet by ity o f tablet 00:00: 04:59 mouth [place] 00 :00 daily for Medical 3 days. Branch predniSONE 2021- No [id number] 40mg Take 2 [facility] 20 mg 3-20 03-24 tablets by ity of tablet 00:00: 04:59 mouth [place] 00 :00 daily for Medical 3 days. Branch levoFLOXaci 2021- No [id number] 750mg Take 1 [facility] n 750 mg 3-20 03-24 tablet by ity o f tablet 00:00: 04:59 mouth [place] 00 :00 daily for Medical 3 days. Branch predniSONE 2021- No [id number] 40mg Take 2 [facility] 20 mg 3-20 03-24 tablets by ity of tablet 00:00: 04:59 mouth [place] 00 :00 daily for Medical 3 days. Branch levoFLOXaci 2021- No [id number] 750mg Take 1 [facility] n 750 mg 3-20 03-24 tablet by ity o f tablet 00:00: 04:59 mouth [place] 00 :00 daily for Medical 3 days. Branch predniSONE No [id number] 40mg Take 2 [facility] 20 mg 3-20 03-24 tablets by ity of tablet 00:00: 04:59 mouth [place] 00 :00 daily for Medical 3 days. Branch finasteride Yes 5mg Take 5 mg U nivers 5 mg tablet 3-19 by mouth ity of 11:37: daily. [address] albuterol Yes 1{ampul Use 1 Univ ers 2.5 mg/0.5 3-19 e} Ampule as ity of mL 11:37: directed 3 [place] nebulizer 16 (three) Medical solution times Branch daily as needed for Wheezing. finasteride Yes 5mg Take 5 mg U nivers 5 mg tablet 3-19 by mouth ity of 11:37: daily. [address] albuterol Yes 1{ampul Use 1 Univ ers 2.5 mg/0.5 3-19 e} Ampule as ity of mL 11:37: directed 3 [place] nebulizer 16 (three) Medical solution times Branch daily as needed for Wheezing. finasteride Yes 5mg Take 5 mg U nivers 5 mg tablet -19 by mouth ity of 11:37: daily. [address] albuterol Yes 1{ampul Use 1 Univ ers 2.5 mg/0.5 3-19 e} Ampule as ity of mL 11:37: directed 3 [place] nebulizer 16 (three) Medical solution times Branch daily as needed for Wheezing. finasteride Yes 5mg Take 5 mg U nivers 5 mg tablet -19 by mouth ity of 11:37: daily. [address] albuterol Yes 1{ampul Use 1 Univ ers 2.5 mg/0.5 3-19 e} Ampule as ity of mL 11:37: directed 3 [place] nebulizer 16 (three) Medical solution times Branch daily as needed for Wheezing. spironolact 2021- No 50mg Take 50 mg [facility] one 50 mg 10-08 by mouth 2 ity of tablet 10:02: 00:00 (two) [place] 59 :00 times Medical daily. Branch furosemide 2021- No 40mg Take 40 mg [facility] 40 mg 10-08- by mouth 2 ity of tablet 10:02: 00:00 (two) [place] 59 :00 times Medical daily. Branch lactulose 2021- No 45mL Take 45 mL U nivers 10 gram/15 10-08-19 by mouth. ity of mL (15 mL) 10:02: 00:00 [place] Solmegan 59 :00 Medical Branch Ipratropium Yes 1{puff} 1 Puff by [facility] -Albuterol 3-19 Inhalation Col lege 20-100 00:00: route. of MCG/ACT 00 Medicin AERS e albuterol-i Yes [id number] 1{puff} Inhale 1 [facility] pratropium 3-19 Puff every ity of 20-100 00:00: 6 (six) [place] mcg/actuati 00 hours as Medi lino on inhaler needed for Bra [facility] Wheezing or Shortness of Breath. albuterol-i Yes [id number] 1{puff} Inhale 1 [facility] pratropium 3-19 Puff every ity of 20-100 00:00: 6 (six) [place] mcg/actuati 00 hours as Medi lino on inhaler needed for Bra nch Wheezing or Shortness of Breath. albuterol-i Yes 1{puff} Inhale 1 [facility] pratropium 3-19 Puff every ity of 20-100 00:00: 6 (six) [place] mcg/actuati 00 hours as Medi lino on inhaler needed for Bra nch Wheezing or Shortness of Breath. albuterol-i Yes 1{puff} Inhale 1 [facility] pratropium 3-19 Puff every ity of 20-100 00:00: 6 (six) [place] mcg/actuati 00 hours as Medi lino on inhaler needed for Bra nch Wheezing or Shortness of Breath. albuterol-i Yes 1{puff} Inhale 1 [facility] pratropium 3-19 Puff every ity of 20-100 00:00: 6 (six) [place] mcg/actuati 00 hours as Medi lino on inhaler needed for Bra nch Wheezing or Shortness of Breath. albuterol-i Yes 1{puff} Inhale 1 [facility] pratropium 3-19 Puff every ity of 20-100 00:00: 6 (six) [place] mcg/actuati 00 hours as Medi lino on inhaler needed for Bra nch Wheezing or Shortness of Breath. albuterol-i Yes 1{puff} Inhale 1 [facility] pratropium 3-19 Puff every ity of 20-100 00:00: 6 (six) [place] mcg/actuati 00 hours as Medi lino on inhaler needed for Bra nch Wheezing or Shortness of Breath. albuterol-i Yes 1{puff} Inhale 1 [facility] pratropium 3-19 Puff every ity of 20-100 00:00: 6 (six) [place] mcg/actuati 00 hours as Medi lino on inhaler needed for Bra nch Wheezing or Shortness of Breath. albuterol-i Yes 1{puff} Inhale 1 [facility] pratropium 3-19 Puff every ity of 20-100 00:00: 6 (six) [place] mcg/actuati 00 hours as Medi lino on inhaler needed for Bra nch Wheezing or Shortness of Breath. albuterol-i Yes [id number] 1{puff} Inhale 1 [facility] pratropium 3-19 Puff every ity of 20-100 00:00: 6 (six) [place] mcg/actuati 00 hours as Medi lino on inhaler needed for Bra nch Wheezing or Shortness of Breath. spironolact 2021- No [id number] 25mg Take 1 [facility] one 25 mg 3-19 04-19 tablet by ity of tablet 00:00: 04:59 mouth 2 [place] 00 :00 (two) Medical times Branch daily for 30 days. lactulose 2021- No [id number] 30mL Take 30 mL [facility] 10 gram/15 3-19 04-19 by mouth 2 it y of mL solution 00:00: 04:59 (two[place] :[place] times Medical daily for Branch 30 days. spironolact 2021- No [id number] 25mg Take 1 [facility] one 25 mg 3-19 04-19 tablet by ity of tablet 00:00: 04:59 mouth 2 [place] 00 :00 (two) Medical times Branch daily for 30 days. lactulose 2021- No [id number] 30mL Take 30 mL [facility] 10 gram/15 3-19 04-19 by mouth 2 it y of mL solution 00:00: 04:59 (two[place] :[place] times Medical daily for Branch 30 days. spironolact 2021- No [id number] 25mg Take 1 [facility] one 25 mg 3-19 04-19 tablet by ity of tablet 00:00: 04:59 mouth 2 [place] 00 :00 (two) Medical times Branch daily for 30 days. lactulose 2021- No [id number] 30mL Take 30 mL [facility] 10 gram/15 3-19 04-19 by mouth 2 it y of mL solution 00:00: 04:59 (two[place] :[place] times Medical daily for Branch 30 days. morpHINE Yes 2mg 2 mg, Slow Uni vers injection 2 3-18 IV Push, ity of mg 21:52: Q4HPRN, [place] 48 Starting Medical on Fri Branch 10/07/21 at 1652, Until Discontinu ed, Routine, Pain (scale 7-10) HYDROcodone Yes 1{tbl} 1 tablet, Univers -acetaminop 10-07 Oral, ity of hen (NORCO 21:52: Q6HPRN, [place] 5) 5-325 mg 32 Starting Medi lino tablet 1 on Fri Branch tablet 10/07/21 at 1652, Until Discontinu ed, Routine, Pain (scale 4-6) acetaminoph Yes 650mg 650 mg, Un jerardo en 10-07 Oral, ity of (TYLENOL) 21:52: Q8HPRN, [place] tablet 650 21 Starting Medic al mg on Fri Branch 10/07/21 at 1652, Until Discontinu ed, Routine, Pain (scale 1-3) KCL 2021- No 40meq 40 mEq, [facility] (KLOR-CON 10-07 Oral, ity of M20) tablet 15:00: 15:05 [place]CE, [place] 40 mEq 00 :00 dose, On Medical Fri Branch 10/07/21 at 1000, Routine levoFLOXaci 2021- No 750mg 750 mg, U nivers n 10-07 Oral, ity of (LEVAQUIN) 14:00: 13:59 DAILY, 5 [place] tablet 750 00 :00 doses, Medical mg First dose Branch (after last modificati on) on Sun10/07/21 at 0900, Last dose on Sun10/11/21 at 0900, ENRIQUE
Re ason for Anti-Infec tive: Documented Infection< br>Documen britta Infection Site: Respirator y
Durat ion of Therapy: 7 days predniSONE 2021- No 40mg 40 mg, Univ ers (DELTASONE) 10-07 Oral, ity of tablet 40 14:00: 13:59 DAILY, 4 [place] as mg 00 :00 doses, Medical First dose Branch on Sun10/07/21 at 0900, Last dose on Sun10/10/21 at 0900, Routine methylPREDN 2021- No 40mg 40 mg, Uni vers ISolone sod 10-06 Intravenou i ty of succ 23:00: 13:55 s, Q24H, [place] (SOLU-MEDRO 00 :45 First dose Me dical L (PF)) on [place] Branch injection 10/06/21 at 40 mg 1800, Until Discontinu ed, 1 mL KCL No 40meq 40 mEq, [facility] (KLOR-CON 10-06 Oral, ity of M20) tablet 20:00: 20:27 [place]CE, [place] 40 mEq 00 :00 dose, On Medical [place] Branch 10/06/21 at 1500, Routine vancomycin No 1250mg 1,250 mg, [facility] 1250 mg [...] Yes 5mg 5 mg, [facility]ive [facility] (PROSCAR) 17 Oral, ity of tablet 5 mg 14:00: DAILY, [place] First dose Medical on [place] Branch 10/06/21 at 0900, Until Discontinu ed, Routine spironolact Yes 25mg 25 mg, Univ ers one -17 Oral, BID, ity of (ALDACTONE) 13:00: First dose [place] tablet 25 00 on [place] Medical mg 10/06/21 at Branch 0800, Until Discontinu ed, Routine NORepinephr No .05ug/k 0.05-0.5 Univers ine 4 mg [...] s vasopresso r at a time.
hydrocortis 2021- No 60mg 60 mg, Uni vers one sod 10-06 Intravenou ity o f succ 11:00: 18:35 s, Q6H, [place] (CORTEF) 00 :41 First dose Medic al injection on [place] Branch 60 mg 10/06/21 at 0600, Until Discontinu ed, 2 mL albumin No 25g 25 g, IV Unive rs [...] 1 Branch dose, On [place] 10/06/21 at 0115, STAT ipratropium Yes 3mL [...] mL 00 on Sun Medical 10/05/21 at Branch 1999, Until Discontinu ed metoprolol 2021- No 12.5mg 12.5 mg, Univers tartrate 10-06 Oral, BID, ity of (LOPRESSOR) 01:00: 06:33 First dose [place] tablet 12.5 00 :56 on Sun Medica l mg 10/05/21 at Branch 1999, Until Discontinu ed, Routine azithromyci 2021- No 500mg 500 mg, IV Univers n 10-06 Piggyback, ity of (ZITHROMAX) 00:15: 13:55 Q24H ABX, [place] 500 mg in 00 :45 3 doses, Medica l NaCl 0.9% First dose Bran ch (NS) 250 mL on Sun VIAL-MATE 10/05/21 at IV 191, Last piggyback dose on Sun10/07/21 at 1915, Administer over 60 Minutes, 250 mL
Reas on for Anti-Infec tive: Empiric Therapy for Suspected Infection< br>Empiric Therapy Site: Respirator y
Durat ion of therapy: 72 hours cefTRIAXone 2021- No 1000mg 1,000 mg, [facility] (ROCEPHIN) 10-06 IV ity of 1,000 mg in 00:15: 13:55 Piggyback, [place] NaCl 0.9% 00 :45 Q24H ABX, Medic al (NS) 50 mL First dose Bra nch MINI-BAG on Sun10/05/21 at 1915, Until Discontinu ed, Administer over 30 Minutes, [...] dose, On Sun10/05/21 at 1345, STAT piperacilli 2021-2021- No 3.375g 3.375 g, Univers n-tazobacta 10-05 [...] of therapy: 72 hours iopamidol 2021- No [id number] 100mL 100 mL, [facility] (ISOVUE 10-05 Intravenou ity o f 370-500 mL) 16:00: 15:59 s, ONCE, 1 [place] injection 00 :00 dose, On Medica l 100 mL Wed Branch 10/05/21 at 1115, Routine doxycycline Yes [place] (MONODOX) 3-18 Daily [facility] 100 MG 00:00: of capsule 00 Medicin e folic acid 0 Yes Daily [facility] (FOLVITE) 1 3-18 College MG tablet 00:00: of 00 Medicin e finasteride Yes 5mg Take 5 mg [facility] (PROSCAR) 5 3-17 by mouth. Col lege MG tablet 00:00: of 00 Medicin e albuterol Yes 1{puff} 1 Puff by [facility] 108 (90 3-17 Inhalation [facility]) 00:00: route. of mcg/act 00 Medicin inhaler e lactulose 2020-0 Yes 20g Q.[id number] Take [address] [facility] (CHRONULAC) 9- [id number] by mouth 3 [facility] 10 gram/15 00:00: 3D (three) Medi lino mL solution 00 times Center daily. lactulose 2020-0 Yes 20g Q.[id number] Take [address] [facility] (CHRONULAC) 9- [id number] by mouth 3 [facility] 10 gram/15 00:00: 3D (three) Medi lino mL solution 00 times Center daily. lactulose 2020-0 Yes 20g Q.[id number] Take [address] [facility] (CHRONULAC) 9- [id number] by mouth 3 [facility] 10 gram/15 00:00: 3D (three) Medi lino mL solution 00 times Center daily. Vital Signs Vital Name Observation Time Observation Value Comments Source WEIGHT 2020-10-05 18:15:00 77.596467 kg HEIGHT 2020-10-05 18:15:00 167.64 cm Systolic blood 2022-06-28 17:00:00 116 mm[Hg] [facility] Diastolic blood 2022-06-28 17:00:00 62 mm[Hg] Unive [facility]ity [facility] pressure [facility] Heart rate 2022-06-28 17:00:00 79 /min [facility] Respiratory rate 2022-06-28 17:00:00 14 /min [facility] Oxygen saturation in 2022-06-28 17:00:00 96 /min [facility] Arterial blood by [place] [employer] [facility] P[facility]xim[facility] Body temperature 2022-06-28 14:37:00 36.28 [place] [facility] Body weight 2022-06-22 18:00:00 71.668 kg [facility] BMI 2022-06-22 18:00:00 25.51 kg/m2 [facility] Systolic blood 2022-06-28 14:37:00 103 mm[Hg] [facility] Diastolic blood 2022-06-28 14:37:00 62 mm[Hg] Unive rs[facility] of pressure [facility] Heart rate 2022-06-28 14:37:00 84 /min [facility] Body temperature 2022-06-28 14:37:00 36.28 [place] [facility] Respiratory rate 2022-06-28 14:37:00 21 /min Univ [facility] Oxygen saturation in 2022-06-28 14:37:00 95 /min [facility] Arterial blood by [place] [employer] [facility] Body weight 2022-06-22 18:00:00 71.668 kg [facility] BMI 2022-06-22 18:00:00 25.51 kg/m2 [facility] Systolic blood 2022-06-07 16:14:00 87 mm[Hg] [facility] Diastolic blood 2022-06-07 16:14:00 59 mm[Hg] [facility] Heart rate 2022-06-07 16:14:00 93 /min [facility] Respiratory rate 2022-06-07 16:14:00 17 /min [facility] Oxygen saturation in 2022-06-07 16:14:00 96 /min [facility] Arterial blood by [facility] Pulse oximetry Branch Body temperature 2022-06-07 15:57:00 36.11 [place] [facility]ity [facility] [place] Body height 2022-05-24 16:10:00 167.6 cm [facility] Body weight 2022-05-24 16:10:00 66 kg [facility] BMI 2022-05-24 16:10:00 23.50 kg/m2 [facility] Systolic blood 2022-06-07 14:14:00 117 mm[Hg] [facility] Diastolic blood 2022-06-07 14:14:00 84 mm[Hg] Unive rsity of pressure [facility] Heart rate 2022-06-07 14:14:00 89 /min [facility] Body temperature 2022-06-07 14:14:00 36.17 [place] [facility] ers[facility] of [facility] Respiratory rate 2022-06-07 14:14:00 18 /min [facility] ersity of [facility] Oxygen saturation in 2022-06-07 14:14:00 99 /min [facility] Arterial blood by [facility] Pulse oximetry Branch Body height 2022-05-24 16:10:00 167.6 cm [facility] Body weight 2022-05-24 16:10:00 66 kg [facility] BMI 2022-05-24 16:10:00 23.50 kg/m2 [facility] Systolic blood 2022-03-29 19:43:00 111 mm[Hg] [facility] pressure Medicine Diastolic blood 2022-03-29 19:43:00 73 mm[Hg] [facility] pressure Medicine Heart rate 2022-03-29 19:43:00 80 /min [facility] Body height 2022-03-29 19:43:00 170.2 cm [facility] Body weight 2022-03-29 19:43:00 71.215 kg [facility] BMI 2022-03-29 19:43:00 24.59 kg/m2 [facility] HEIGHT 2022-02-09 15:09:00 167.6 cm WEIGHT 2022-02-09 15:09:00 58.968 kg HEIGHT 2022-02-09 15:09:00 167.6 cm WEIGHT 2022-02-09 15:09:00 58.968 kg HEIGHT 2022-02-09 15:09:00 167.6 cm WEIGHT 2022-02-09 15:09:00 58.968 kg Systolic blood 2021-10-08 15:00:00 107 mm[Hg] Univer sity of pressure [facility] Diastolic blood 2021-10-08 15:00:00 67 mm[Hg] Unive rsity of [facility] Heart rate 2021-10-08 15:00:00 89 /min [facility] Respiratory rate 2021-10-08 15:00:00 24 /min [facility] Oxygen saturation in 2021-10-08 15:00:00 96 /min [facility] blood by [facility] Pulse oximetry Branch Body temperature 2021-10-08 13:56:00 36.56 [place] [facility] Body weight 2021-10-07 09:39:00 65.998 [facility] BMI 2021-10-07 09:39:00 23.48 kg/m2 [facility] Body height 2021-10-06 17:32:00 167.6 cm [facility] WEIGHT 2020-10-05 18:15:00 77.496394 kg HEIGHT 2020-10-05 18:15:00 167.64 cm WEIGHT 2020-06-11 22:20:00 68.344972 kg HEIGHT 2020-06-11 22:20:00 167.64 cm Systolic blood 2022-06-27 13:49:00 116 mm[Hg] [facility] Diastolic blood 2022-06-27 13:49:00 69 mm[Hg] [facility] Heart rate 2022-06-27 13:49:00 87 /min [facility] Body temperature 2022-06-27 13:49:00 36.83 [place] [facility] Body height 2022-06-27 13:49:00 167.6 cm [facility] Body weight 2022-06-27 13:49:00 73.029 kg [facility] BMI 2022-06-27 13:49:00 25.99 kg/m2 [facility] Oxygen saturation in 2022-06-27 13:49:00 96 /min [facility] Arterial blood by Medical Ce nter Pulse oximetry Systolic blood 2022-04-10 09:43:00 127 mm[Hg] [facility] Diastolic blood 2022-04-10 09:43:00 74 mm[Hg] [facility] Heart rate 2022-04-10 09:43:00 84 /min [facility] Body temperature 2022-04-10 09:43:00 36.33 [place] [facility] Body weight 2022-04-10 09:43:00 64.275 kg [facility] BMI 2022-04-10 09:43:00 22.40 kg/m2 [facility] Oxygen saturation in 2022-04-10 09:43:00 96 /min [facility] Arterial blood by Medical Ce nter Pulse oximetry Body height 2022-03-09 07:21:00 169.4 cm [facility] Respiratory rate 2022-03-08 13:00:00 18 /min [facility] Procedures Procedure Date / Time Performing Source Performed Clinician PHACOEMULSIFICATION OF 2022-06-28 Jhon Aguirre [facility] CATARACT WITH INTRAOCULAR 15:57:00 Medica l Branch LENS IMPLANT CBC W/PLT COUNT & AUTO 2022-06-27 Crist[facility] Swartz [facility] DIFFERENTIAL 15:43:00 [facility] ALPHA FETOPROTEIN (AFP), 2022-06-27 Crist[facility] Swart[facility] TUMOR MARKER 15:43:00 [facility] BASIC METABOLIC PANEL 2022-06-[address] [facility] 15:43:00 [facility] HEPATIC FUNCTION PANEL 2022-06-27 Sheridan, Tantrevor Aranda 15:43:00 [facility] PROTHROMBIN TIME/INR 2022-06-27 Cristela Swartz [facility] 15:43:00 [facility] CBC W/PLT COUNT & AUTO 2022-06-27 Cristela Swartz [facility] DIFFERENTIAL 15:43:00 [facility] ASSIGNMENT OF BENEFITS 2022-06-26 Doctor Unassigned, [facility] 16:45:43 [facility] PHACOEMULSIFICATION OF 2022-06-07 Jhon Aguirre [facility] CATARACT WITH INTRAOCULAR 15:08:00 Medica l Brittany LENS IMPLANT DAY SURGERY - ADC 2022-06-07 Doctor Unassigned, [facility] 06:01:00 [facility] CONSENT/REFUSAL FOR DIAGNOSIS 2022-05-29 Doctor Unassigned, [facility] AND TREATMENT 18:04:17 [facility] CONSENT/REFUSAL FOR DIAGNOSIS 2022-05-29 Doctor Unassigned, [facility] AND TREATMENT 18:04:17 [facility] ASSIGNMENT OF BENEFITS 2022-05-29 Doctor Unassigned [facility] 18:02:11 [facility] ASSIGNMENT OF BENEFITS 2022-05-29 Doctor Unassigned, [facility] 18:02:11 [facility] NOTICE OF BILLING PRACTICES 2022-05-29 Doctor Unassigned, [facility] FOR MEDICARE PATIENTS 18:01:45 [facility] NOTICE OF BILLING PRACTICES 2022-05-29 Doctor Unassigned [facility] FOR MEDICARE PATIENTS 18:01:45 [facility] PATIENT FINANCIAL POLICY 2022-05-29 Doctor Unassigned, [facility] 18:00:08 [facility] PATIENT FINANCIAL POLICY 2022-05-29 Doctor Unassigned, [facility] 18:00:08 [facility] NO SHOW OR MISSED APPOINTMENT 2022-05-29 Doctor Unasscesar, [facility] POLICY ACKNOWLEDGEMENT 17:59:39 [facility] NO SHOW OR MISSED APPOINTMENT 2022-05-29 Doctor Unassigned, [facility] POLICY ACKNOWLEDGEMENT 17:59:39 [facility] NOTICE OF PRIVACY PRACTICES 2022-05-29 Doctor Unassigned [facility] 17:59:01 [facility] NOTICE OF PRIVACY PRACTICES 2022-05-29 Doctor Unassigned, [facility] 17:59:01 [facility] CONSENT/REFUSAL FOR DIAGNOSIS 2022-05-29 Doctor Unassigned, [facility] AND TREATMENT 17:58:37 [facility] CONSENT/REFUSAL FOR DIAGNOSIS 2022-05-29 Doctor Unassigned, [facility] AND TREATMENT 17:58:37 [facility] ASSIGNMENT OF BENEFITS 2022-05-29 Doctor Unassigned, [facility] 17:58:05 [facility] ASSIGNMENT OF BENEFITS 2022-05-29 Doctor Unassigned, [facility] 17:58:05 [facility] AUTHORIZATION FOR RELEASE OF 2022-05-29 Doctor Unassigned, [facility] PHI 06:01:00 [facility] AUTHORIZATION FOR RELEASE OF 2022-05-29 Doctor Unassigned, [facility] PHI 06:01:00 [facility] AMB REF TO GEN INT MEDICINE 2022-04-13 [facility] 10:44:26 Medicine BASIC METABOLIC PANEL 2022-04-[address] [facility] 13:35:00 [facility] HEPATIC FUNCTION PANEL 2022-04-[address] [facility] 13:35:00 [facility] CBC W/PLT COUNT & AUTO 2022-04-10 Cleve Mayr Ware [facility] DIFFERENTIAL 13:35:00 [facility] PROTHROMBIN TIME/INR 2022-04-[address] [facility] 13:35:00 [facility] CBC W/PLT COUNT & AUTO 2022-04-10 Cleve Mary Ware [facility] DIFFERENTIAL 13:35:[address] [facility] [address] ABDOMEN/PELVIS WITH IV 2022-04-[address] [facility] CONTRAST 13:08:00 [facility] ECHO W CONTRAST & DOPPLER 2022-03-[address] [facility] 12:44:32 [facility] CAROTID DOPPLER BILATERAL 2022-03-[address] [facility] 12:19:00 [facility] ECG 12-LEAD 2022-03-[address] [facility] 12:06:19 [facility] BLOOD GAS, ARTERIAL 2022-03-30 Everette, Aracelianjali Andujar [facility] 11:43:00 [facility] XR MANDIBLE 4 VIEWS MIN 2022-03-30 Everette, Aracelianjali Andujar [facility] 10:38:00 [facility] Center XR CHEST 2 VIEWS 2022-03-30 Everette, Aracelianjali Andujar [facility] 10:30:00 [facility] Center XR DXA BONE DENSITY STUDY 2022-03-30 Everette, Araceli Andujar [facility] 10:25:00 Medical Center MR ABDOMEN WITH & WITHOUT IV 2022-03-30 Everette, Araceli Castillo [facility] CONTRAST 07:47:00 [facility] DRUG SCREEN, URINE, 2022-03-08 Everette, Araceli Andujar [facility] TRANSPLANT 12:43:00 [facility] URINALYSIS W/ MICROSCOPIC 2022-03-08 Everette, Araceli Andujar [facility] 12:43:00 [facility] CALCIUM, IONIZED 2022-03-08 Everette, Araceli Andujar [facility] 08:58:00 [facility] HEPATITIS C PCR, QUANTITATIVE 2022-03-08 Everette, Araceli Andujar [facility] 08:58:00 [facility] MISCELLANEOUS LAB ORDER 2022-03-08 Everette, Araceli Andujar [facility] 08:57:00 [facility] COMPREHENSIVE METABOLIC PANEL 2022-03-08 Everette, Araceli Andujar [facility] 08:57:00 [facility] BILIRUBIN, DIRECT 2022-03-08 Everette, Araceli Andujar [facility] 08:57:00 [facility] GAMMA GLUTAMYL TRANSFERASE 2022-03-08 Everette, Araceli Andujar [facility] (GGT) 08:57:00 [facility] MAGNESIUM 2022-03-08 Everette, Araceli Andujar [facility] 08:57:00 [facility] PHOSPHORUS 2022-03-08 Everette, Araceli Andujar [facility] 08:57:00 [facility] Center CBC W/PLT COUNT & AUTO 2022-03-08 Everette, Araceli Andujar [facility] DIFFERENTIAL 08:57:00 [facility] ACTIN (SMOOTH MUSCLE) 2022-03-08 Everette, Araceli Andujar [facility] ANTIBODY, IGG 08:57:00 [facility] TRANSFERRIN 2022-03-08 Everette, Araceli Andujar [facility] 08:57:00 [facility] IRON, TIBC, % SAT. (WITHOUT 2022-03-08 Everette, [facility] 08:57:00 Medical Center FERRITIN 2022-03-08 Everette, Araceli Andujar [facility] 08:57:00 [facility] Center CERULOPLASMIN 2022-03-08 Everette, Araceli Andujar [facility] 08:57:00 Medical Center VITAMIN D, 25-HYDROXY 2022-03-08 Everette, Araceli [facility]dujar [facility] 08:57:00 [facility] LIPID PANEL 2022-03-08 Everette, Araceli Andujar [facility] 08:57:00 [facility] Center HEMOGLOBIN A1C 2022-03-08 Everette, Araceli Andujar [facility] 08:57:00 Medical Center ETHANOL 2022-03-08 Everette, Araceli Andujar [facility] 08:57:00 [facility] ALPHA FETOPROTEIN (AFP), 2022-03-08 Everette, [facility] TUM[facility] 08:57:00 [facility] CARBOHYDRATE ANTIGEN 19-9 (CA 2022-03-08 Everette, Araceli Andujar [facility] 19-9) 08:57:00 Medical Center CARCINOEMBRYONIC ANTIGEN 2022-03-08 Everette, [facility] (CEA) 08:57:00 [facility] Center ZINC 2022-03-08 Everette, Araceli Andujar [facility] 08:57:00 [facility] URIC ACID 2022-03-08 Everette, Araceli Andujar [facility] 08:57:00 [facility] Center TSH 2022-03-08 Everette, Araceli Andujar [facility] 08:57:00 [facility] Center T3 2022-03-08 Everette, Araceli Andujar [facility] 08:57:00 [facility] T4 2022-03-08 Everette, Araceli Andujar [facility] 08:57:00 Medical Center HEPATITIS B CORE ANTIBODY, 2022-03-08 Everette, Araceli Andujar [facility] TOTAL 08:57:00 Medical Center HEPATITIS B CORE ANTIBODY, 2022-03-08 Everette, Araceli Andujar [facility] IGM 08:57:00 Medical Center HC LAB HIV-1 AG W/HIV-1&2 AB 2022-03-08 Everette, Araceli Andujar [facility] 08:57:00 [facility] CYTOMEGALOVIRUS ANTIBODY, IGG 2022-03-08 Everette, Araceli Andujar [facility] 08:57:00 [facility] Center EBV ANTIBODY, IGM 2022-03-08 Everette, Araceli Andujar [facility] 08:57:00 [facility] RUBEOLA ANTIBODY IGG 2022-03-08 Everette, Araceli Andujar [facility] 08:57:00 [facility] MUMPS ANTIBODY, IGG 2022-03-08 Everette, Araceli Andujar [facility] 08:57:00 [facility] Center RUBELLA ANTIBODY, IGG 2022-03-08 Everette, Araceli Andujar [facility] 08:57:00 [facility] VARICELLA ZOSTER ANTIBODY, 2022-03-08 Everette, Araceli Andujar [facility] IGG 08:57:00 [facility] CRYPTOCOCCAL ANTIGEN 2022-03-08 Everette, Araceli Andujar [facility] 08:57:00 [facility] RPR 2022-03-08 Everette, Araceli Andujar [facility] 08:57:00 [facility] T SPOT TB 2022-03-08 Everette, Araceli Andujar [facility] 08:57:00 [facility] ALPHA-1 ANTITRYPSIN MUTATION 2022-03-08 Everette, Araceli Castillo [facility] ANALYSIS 08:57:00 [facility] HEPATITIS C GENOTYPE 2022-03-08 Everette, Araceli Andujar [facility] 08:57:00 [facility] PSA 2022-03-08 Everette, Araceli Andujar [facility] 08:57:00 [facility] CBC W/PLT COUNT & AUTO 2022-03-08 Everette, Araceli Andujar [facility] DIFFERENTIAL 08:57:00 [facility] FIBRINOGEN 2022-03-08 Everette, Araceli Andujar [facility] 08:56:00 [facility] PROTHROMBIN TIME/INR 2022-03-08 Everette, Araceli Andujar [facility] 08:56:00 [facility] APTT 2022-03-08 Everette, Araceli Andujar [facility] 08:56:00 [facility] MITOCHONDRIA M2 ANTIBODY 2022-03-08 Everette, Araceli Andujar [facility] (IGG) 08:56:00 Medical Center TESTOSTERONE, FREE + TOTAL 2022-03-08 Everette, Araceli Andujar [facility] 08:56:00 [facility] SARS-COV2/RT-PCR ([facility] & REF 2022-02-[address] [facility] LABS) 07:47:00 [facility] VARICELLA ZOSTER PCR, 2022-02-[address] [facility] QUALITATIVE 20:01:00 [facility] PROTHROMBIN TIME/INR 2022-02-[address] [facility] [facility] 11:57:00 [facility] CBC W/PLT COUNT & AUTO 2022-02-14 Rogelio Gil [facility] DIFFERENTIAL 05:02:00 [facility] BASIC METABOLIC PANEL 2022-02-14 Jeffery Rogelio [facility] 05:02:00 [facility] HEPATIC FUNCTION PANEL 2022-02-14 Jeffery Rogelio [facility] 05:02:00 [facility] CBC W/PLT COUNT & AUTO 2022-02-14 Rogelio Gil [facility] DIFFERENTIAL 05:02:00 [facility] TISSUE EXAM 2022-02-[address] [facility] 08:26:00 [facility] CYTOLOGY 2022-02-[address] [facility] 08:24:00 [facility] CYTOLOGY REQUEST 2022-02-[address] [facility] 08:24:00 [facility] BODY FLUID CULTURE + GRAM 2022-02-13 [facility]z [facility] STAIN 08:21:00 [facility] HERNIORRHAPHY, UMBILICAL 2022-02-[address] [facility] 07:13:00 [facility] PROTHROMBIN TIME/INR 2022-02-13 Kamala Guzman [facility] 04:46:00 [facility] ABORH, MANUAL 2022-02-[address] [facility] 04:46:00 [facility] CBC W/PLT COUNT & AUTO 2022-02-[address] [facility] DIFFERENTIAL 03:38:00 [facility] BASIC METABOLIC PANEL 2022-02-[address] [facility] 03:38:00 [facility] MAGNESIUM 2022-02-[address] [facility] 03:38:00 Medical Center HEPATIC FUNCTION PANEL 2022-02-13 Tracey, Suyapa P. [facility] 03:38:00 [facility] PROTHROMBIN TIME/INR 2022-02-13 Tracey, Suyapa P. [facility] 03:38:00 [facility] APTT 2022-02-[address] [facility] 03:38:00 [facility] PHOSPHATIDYLETHANOL, BLOOD 2022-02-13 Jef Nely Roy [facility] 03:38:00 [facility] HEPATITIS B SURFACE ANTIBODY 2022-02-[address] [facility] 03:38:00 [facility] TYPE AND SCREEN, AUTOMATED 2022-02-13 Kt Garrett [facility] 03:38:00 [facility] CBC W/PLT COUNT & AUTO 2022-02-13 Tracey, Suyapa P. [facility] DIFFERENTIAL 03:38:00 [facility] CBC W/PLT COUNT & AUTO 2022-02-12 Tracey, Suyapa P. [facility] DIFFERENTIAL 03:29:00 [facility] BASIC METABOLIC PANEL 2022-02-12 Tracey, Suyapa P. [facility] 03:29:00 [facility] MAGNESIUM 2022-02-12 Tracey, Suyapa P. [facility] 03:29:00 [facility] HEPATIC FUNCTION PANEL 2022-02-12 Tracey, Suyapa P. [facility] 03:29:00 [facility] PROTHROMBIN TIME/INR 2022-02-12 Tracey, Suyapa P. [facility] 03:29:00 [facility] CBC W/PLT COUNT & AUTO 2022-02-12 Tracey, Suyapa P. [facility] DIFFERENTIAL 03:29:00 [facility] CBC W/PLT COUNT & AUTO 2022-02-11 Tracey, Suyapa P. [facility] DIFFERENTIAL 04:35:00 [facility] BASIC METABOLIC PANEL 2022-02-11 Tracey, Suyapa P. [facility] 04:35:00 [facility] MAGNESIUM 2022-02-11 Tracey, Suyapa P. [facility] 04:35:00 [facility] HEPATIC FUNCTION PANEL 2022-02-11 Tracey, Suyapa P. [facility] 04:35:00 [facility] PROTHROMBIN TIME/INR 2022-02-[address] [facility] 04:35:00 [facility] CBC W/PLT COUNT & AUTO 2022-02-[address] [facility] DIFFERENTIAL 04:35:00 [facility] US PARACENTESIS 2022-02-10 Brucorina, Keyana [facility] 12:58:00 [facility] BODY FLUID CELL COUNT WITH 2022-02-10 [facility] DIFFER[facility] 12:32:00 [facility] BODY FLUID CULTURE + GRAM 2022-02-10 Brucorina, Keyana [facility] STAIN 12:32:00 [facility] LACTATE DEHYDROGENASE (LDH), 2022-02-10 Brucorina, Keyana [facility] BODY FLUID 12:32:00 [facility] PROTEIN, BODY FLUID 2022-02-10 Brusatori, Keyana [facility] 12:32:00 [facility] GLUCOSE, BODY FLUID 2022-02-[address] [facility] 12:32:00 [facility] XR ABDOMEN/KUB 1 VIEW 2022-02-[address] [facility] PORTABLE 04:18:00 [facility] URINALYSIS W/ REFLEX URINE 2022-02-09 [facility]ra [facility] CULTURE 23:33:00 [facility] CT ABDOMEN/PELVIS WITH IV 2022-02-[address] [facility] CONTRAST 20:53:00 [facility] ECG 12-LEAD 2022-02-09 Brusatori, Keyana [facility] 19:28:35 [facility] ECG 12-LEAD 2022-02-09 Unknown, Hl7 Doctor [facility] 19:28:35 [facility] ECG 12-LEAD 2022-02-09 Unknown, Hl7 Doctor [facility] 19:28:35 [facility] BLOOD CULTURE 2022-02-09 Brucorina, Keyana [facility] 19:11:00 [facility] AMMONIA 2022-02-09 Brusatori, Keyana [facility] 19:09:00 [facility] SARS-COV2/RT-PCR (HS & REF 2022-02-[address] [facility] LABS) 19:08:00 [facility] LACTIC ACID, VENOUS 2022-02-[address] [facility] 18:49:00 [facility] BLOOD CULTURE 2022-02-09 Prashanthanayelithiago, Keyana [facility] 18:48:00 [facility] CBC W/PLT COUNT & AUTO 2022-02-[address] [facility] DIFFERENTIAL 18:48:00 [facility] COMPREHENSIVE METABOLIC PANEL 2022-02-09 [facility] [facility] 18:48:00 [facility] LIPASE 2022-02-[address] [facility] 18:48:00 [facility] PT/APTT 2022-02-[address] [facility] 18:48:00 [facility] CBC W/PLT COUNT & AUTO 2022-02-09 Prashanthanayelithiago Keyana [facility] DIFFERENTIAL 18:48:00 [facility] PROTHROMBIN TIME/INR 2022-02-[address] [facility] 13:40:00 [facility] BLOOD CULTURE 2022-02-[address] [facility] 13:37:00 [facility] MISCELLANEOUS LAB ORDER 2022-02-[address] [facility] 13:37:00 [facility] COMPREHENSIVE METABOLIC PANEL 2022-02-09 [address] [facility] 13:37:00 [facility] BILIRUBIN, DIRECT 2022-02-[address] [facility] 13:37:00 [facility] CBC W/PLT COUNT & AUTO 2022-02-[address] [facility] DIFFERENTIAL 13:37:00 [facility] HEPATITIS A ANTIBODY, IGG 2022-02-[address] [facility] 13:37:00 [facility] HEPATITIS C ANTIBODY 2022-02-[address] [facility] 13:37:00 [facility] ERBGL-2-NNZGHDRTHLI\\, SERUM 2022-02-[address] [facility] 13:37:00 [facility] Center ANTI-NUCLEAR ANTIBODY (OSKAR) 2022-02-[address] [facility] 13:37:00 Medical Center LACTIC ACID, VENOUS 2022-02-[address] [facility] 13:37:00 [facility] PROCALCITONIN 2022-02-[address] [facility] 13:37:00 [facility] OSKAR TITER AND PATTERN 2022-02-09 [facility] [address] 13:37:00 [facility] CBC W/PLT COUNT & AUTO 2022-02-[address] [facility] DIFFERENTIAL 13:37:00 [facility] EKG-SCANNED 2022-02-[address] [facility] 00[facility]:00 Scanning [facility] [id number] 2021-10-24 CAN.01 [facility] 00:00:00 [facility] [id number] 2021-10-24 CANJO.01 [facility] 00:00:00 [facility] [id number] 2021-10-19 CANJO.01 [facility] 00[facility]00:00 [facility] [id number] 2021-10-19 CANJO.01 [facility] 00:00:00 [facility] [id number] 2021-10-17 [facility] 00[facility]:00 [facility] [id number] 2021-10-17 [facility] 00:00:00 [facility] [id number] 2021-10-17 IDO [facility] 00:00:00 [facility] [id number] 2021-10-17 [facility] [id number] 2021-10-17 SINSI [facility] 00:00:00 [facility] [id number] 2021-10-17 [facility] 00[facility]00:00 [facility] [id number] 2021-10-17 [facility] 00:00:00 [facility] [id number] 2021-10-17 CLIDO [facility] 00:00:00 [facility] [id number] 2021-10-17 SINSI [facility] 00:00:00 [facility] [id number] 2021-10-17 SINSI [facility] 00:00:00 [facility] [id number] 2021-10-14 CLIDO [facility] 00:00:00 [facility] [id number] 2021-10-14 MOIKH [facility] 00:00:00 [facility] [id number] 2021-10-14 CL[facility] 00:00:00 [facility] [id number] 2021-10-14 MOIKH [facility] 00:00:00 [facility] [id number] 2021-10-11 CANJO.01 [facility] 00:00:00 [facility] [id number] 2021-10-11 CANJO.01 [facility] 00:00:00 [facility] Center MAGNESIUM 2021-10-08 [facility] 10:00:00 Medical Branch COMP. METABOLIC PANEL ([id number]) 2021-10-08 [facility] 10:00:00 Medical Branch CBC WITHOUT DIFF 2021-10-08 [facility]as 10:00:00 Medical Branch N-TERMINAL PRO-BNP 2021-10-08 [facility] 10:00:00 Medical Branch MAGNESIUM 2021-10-07 [facility] xa 09:44:00 Medical Branch COMP. METABOLIC PANEL ([id number]) 2021-10-07 [facility] 09:44:00 Medical Branch CBC WITH DIFF 2021-10-07 [facility] xa 09:44:[address] HEAD WO CONTRAST 2021-10-06 [facility] [place] 23:27:16 Medical Branch XR ELBOW <3 VW LEFT 2021-10-06 [facility] [place] 23:19:00 [facility] TRANSTHORACIC ECHO (TTE) 2021-10-06 Fredo Berrios [facility] COMPLETE 17:32:04 [place] PNEUMOCOCCAL ANTIGEN 2021-10-06 Fredo Berrios [facility] 12:20:00 Medical Branch CORTISOL AM 2021-10-06 [facility] x[facility] 11:45:00 [facility] LACTIC ACID WHOLE BLOOD 2021-10-06 [facility] 09:24:00 Medical Branch AMMONIA, PLASMA 2021-10-06 Fredo Berrios [facility] xas 08:28:00 Medical Branch MAGNESIUM 2021-10-06 [facility] xa 08:21:00 Medical Branch THYROID STIMULATING HORMONE 2021-10-06 Jose Luis Dorseycam [facility] 08:21:00 Medical Branch COMP. METABOLIC PANEL ([id number]) 2021-10-06 [facility] 08:21:00 Medical Branch US ABDOMEN LIMITED 2021-10-06 [facility] 02:00:00 Medical Branch TROPONIN I 2021-10-06 Fredo Berrios [facility] xa 01:12:00 Medical Branch HEPATITIS C VIRUS (HCV) BY 2021-10-06 Fredo Berrios [facility] QUANTITATIVE NAAT 01:09:00 [facility] LACTIC ACID WHOLE BLOOD 2021-10-06 Fredo Berrios [facility] 00:02:00 [facility] MYCOPLASMA PNEUMONIAE 2021-10-06 [facility] ANTIBODY, IGM 00:01:00 [facility] HEPATITIS B SURFACE ANTIBODY 2021-10-06 Fredo Berrios [facility] 00:01:00 Medical Branch HCV ANTIBODY 2021-10-06 Fredo Berrios [facility] xa 00:01:00 [facility] HBC ANTIBODY (IGM & IGG) 2021-10-06 Yash [facility] 00:01:00 [facility] PROCALCITONIN 2021-10-06 [facility] xa 00:01:00 [facility] MRSA / MSSA SCREEN BY PCR, 2021-10-05 Fredo Berrios [facility] NARES 23:52:00 Medical Branch RESPIRATORY PANEL BY PCR 2021-10-05 Fredo Berrios [facility] 23:52:00 [facility] LACTIC ACID WHOLE BLOOD 2021-10-05 [facility] 20:29:00 [facility] BLOOD CULTURE SCREEN 2021-10-05 [facility] 17:35:00 [facility] URINE CULTURE 2021-10-05 [facility] xa 17:35:00 [facility] BLOOD CULTURE WORKUP 2021-10-05 [facility] 17:35:00 [facility] GRAM POSITIVE BLOOD PATHOGENS 2021-10-05 Babatunde [facility] DNA PROBE-ANAEROBIC 17:35:[address] ABDOMEN PELVIS W CONTRAST 2021-10-05 Babatunde Aragon [facility] 16:10:[address] CHEST PULMONARY ANGIOGRAM 2021-10-05 Babatunde Aragon [facility] 16:10:00 Medical Branch [facility] PATIENT FINANCIAL POLICY 2021-10-05 Doctor Unassigned, [facility] 14:58:02 [place] [facility] NO SHOW OR MISSED APPOINTMENT 2021-10-05 Doctor Unassigned, [facility] POLICY ACKNOWLEDGEMENT 14:57:08 [place] [facility] ranch NOTICE OF PRIVACY PRACTICES 2021-10-05 Doctor Unasscesar, [facility] 14:55:14 [place] [facility] CONSENT/REFUSAL FOR DIAGNOSIS 2021-10-05 Doctor Unassigned, [facility] AND TREATMENT 14:54:54 [place] [facility] [place] ASSIGNMENT OF BENEFITS 2021-10-05 Doctor Aida, [facility] 14:54:42 [place] [facility] AC PANEL 20 + LACTIC ACID 2021-10-05 Babatunde Aragon [facility] 14:48:00 Medical Branch COVID-19 (ID NOW RAPID 2021-10-05 [facility] TESTING) 14:48:00 Medical Branch LAB ONLY COVID INTERPRETATION 2021-10-05 Babatunde [facility] 14:48:00 Medical Branch AMMONIA, PLASMA 2021-10-05 [facility] xas 14:47:00 Medical Branch TROPONIN I 2021-10-05 [facility] xas 14:47:00 Medical Branch COMP. METABOLIC PANEL ([id number]) 2021-10-05 [facility] 14:47:00 Medical Branch CBC WITH DIFF 2021-10-05 [facility] xas 14:47:00 Medical Branch PROTHROMBIN TIME / INR 2021-10-05 [facility] 14:47:00 Medical Branch D-DIMER 2021-10-05 [facility] xas 14:47:00 Medical Branch URINALYSIS 2021-10-05 [facility] xas 14:47:00 Medical Branch N-TERMINAL PRO-BNP 2021-10-05 Babatunde Aragon [facility] 14:47:00 Medical Branch EKG-12 LEAD 2021-10-05 Fredo Berrios [facility] xas 14:44:49 Medical Branch CONSENT/REFUSAL FOR DIAGNOSIS 2021-10-05 Doctor Unassigned, [facility] AND TREATMENT 14:31:59 [place] [facility] NOTICE OF PRIVACY PRACTICES 2021-10-05 Doctor Unassigned, [facility] 14:31:43 [place] [facility] Plan of Care Planned Activity Planned Date Details Comments Source Future Scheduled 2023-02-[address] [facility] 00:00:00 Counseling and Medical Cente r Screening (12+) [code = Tobacco Cessation Counseling and Screening (12+)] Future Scheduled 2023-02-[address] [facility] Test 00:00:00 Counseling and Medical Cente r Screening (12+) [code = Tobacco Cessation Counseling and Screening (12+)] Future Scheduled 2022-03-29 Screening for malignant [facility] Test 14:45:09 neoplasm of colon Medicine (procedure) [code = 403334080] Future Scheduled 2022-03-29 COVID-19 Vaccine (#1) [facility] Test 14:45:09 [code = COVID-19 Medicine Vaccine (#1)] Future Scheduled 2022-03-29 Pneumococcal 65+ (1 - Ba [facility] Test 14:45:09 PCV) [code = Medicine Pneumococcal 65+ (1 - PCV)] Future Scheduled 2022-03-29 TETANUS SHOT (ADULT) [facility] Test 14:45:09 [code = TETANUS SHOT Medicin e (ADULT)] Future Scheduled 2022-03-29 ZOSTER VACCINE (1 of 2) [facility] Test 14:45:09 [code = ZOSTER VACCINE Medic ine (1 of 2)] Future Scheduled 2022-03-29 MEDICARE AWV (Initial) B [facility] Test 14:45:09 [code = MEDICARE AWV Medicin e (Initial)] Future Scheduled 2022-03-29 FALL SCREEN [code = [facility] Test 14:45:09 FALL SCREEN] Medicine Future Scheduled 2022-03-29 FLU VACCINE > 6 MONTHS B [facility] Test 14:45:09 [code = FLU VACCINE > 6 Medi cine MONTHS] Future Scheduled 2022-03-[address] [facility] 00:00:00 WELLNESS (YEAR 2 or Medical Center FIRST YEAR if no IPPE) [code = MEDICARE ANNUAL WELLNESS (YEAR 2 or FIRST YEAR if no IPPE)] Future Scheduled 2022-03-[address] [facility] 00:00:00 WELLNESS (YEAR 2 or Medical Center FIRST YEAR if no IPPE) [code = MEDICARE ANNUAL WELLNESS (YEAR 2 or FIRST YEAR if no IPPE)] Future Scheduled 2022-03-[address] [facility] 00:00:00 WELLNESS (YEAR 2 or Medical Center FIRST YEAR if no IPPE) [code = MEDICARE ANNUAL WELLNESS (YEAR 2 or FIRST YEAR if no IPPE)] Future Scheduled 2022-03-23 INFLUENZA VACCINE (#1) [facility]00 [code = INFLUENZA Medical Ce nter VACCINE (#1)] Future Scheduled 2022-03-23 INFLUENZA VACCINE (#1) [facility] 00:00:00 [code = INFLUENZA Medical Ce nter VACCINE (#1)] Future Scheduled 2022-03-23 INFLUENZA VACCINE (#1) [facility] 00:00:00 [code = INFLUENZA Medical Ce nter VACCINE (#1)] Future Scheduled 2021-07-[address] [facility] 00:00:00 (12+) [code = Medical Center DEPRESSION SCREENING (12+)] Future Scheduled 2021-07-[address] F[address]K SCREENING [facility] Test 00:00:00 [code = FALLS RISK Medical C enter SCREENING] Future Scheduled 2021-07-[address] [facility] Test 00:00:00 (12+) [code = Medical Center DEPRESSION SCREENING (12+)] Future Scheduled 2021-07-23 F[address] RISK SCREENING [facility] Test 00:00:00 [code = FALLS RISK Medical C enter SCREENING] Future Scheduled 2021-07-[address] [facility] Test 00:00:00 (12+) [code = Medical Center DEPRESSION SCREENING (12+)] Future Scheduled 2021-07-23 F[address] RISK SCREENING [facility] Test 00:00:00 [code = FALLS RISK Medical C enter SCREENING] Future Scheduled 2006 SHINGLES VACCINES ([address] [facility] Test 00:00:00 2) [code = SHINGLES [facility] VACCINES (1 of 2)] Future Scheduled 2006 SHINGLES VACCINES ([address] [facility] Test 00:00:00 2) [code = SHINGLES [facility] VACCINES (1 of 2)] Future Scheduled 2006 SHINGLES VACCINES ([address] [facility] 00:00:00 2) [facility])] Future Scheduled 1975 DTAP/TDAP/TD [facility]ACCINES [facility] 00:00:00 (1 - Tdap) [code = Medical C enter DTAP/TDAP/TD VACCINES (1 - Tdap)] Future Scheduled 1975 DTAP/TDAP/TD [facility]ACCINES [facility] 00:00:00 (1 - Tdap) [code = Medical C enter DTAP/TDAP/TD VACCINES (1 - Tdap)] Future Scheduled 1975 DTAP/TDAP/TD [facility]ACCINES [facility] 00:00:00 (1 - Tdap) [code = Medical C enter DTAP/TDAP/TD VACCINES (1 - Tdap)] Future Scheduled 1962 PNEUMOCOCCAL 65+ YRS ([address] [facility] Test 00:00:00 - PCV) [code = Medical Cente r PNEUMOCOCCAL 65+ YRS (1 - PCV)] Future Scheduled 1962 PNEUMOCOCCAL 65+ YRS ([address] [facility] Test 00:00:00 - PCV) [code = Medical Cente r PNEUMOCOCCAL 65+ YRS (1 - PCV)] Future Scheduled 1962 PNEUMOCOCCAL 65+ YRS ([address] [facility] Test 00:00:00 - PCV) [code = Medical Cente r PNEUMOCOCCAL 65+ YRS (1 - PCV)] Future Scheduled 1956 COVID-19 VACCINE (#1[facility] 00:00:00 [code = COVID-[address] VACCINE (#1)] Future Scheduled 1956 COVID-19 VACCINE (#1) [facility] 00:00:00 [code = COVID-[address] VACCINE (#1)] Future Scheduled 1956 COVID-19 VACCINE (#1) [facility] 00:00:00 [code = COVID-[address] VACCINE (#1)] Future Scheduled 1956 CT Colonography (combo) [facility] 00:00:00 [code = CT Colonography [facility] (combo)] Future Scheduled 1956 Screening for malignant [facility] Test 00:00:00 neoplasm of colon Medical Ce nter (procedure) [code = 613907192] Future Scheduled 1956 Screening for malignant [facility] Test 00:00:00 neoplasm of colon Medical Ce nter (procedure) [code = 582608549] Future Scheduled 1956 Screening for malignant [facility] Test 00:00:00 neoplasm of colon Medical Ce nter (procedure) [code = 431091354] Future Scheduled [address] Screening for malignant [facility] Test 00:00:00 neoplasm of colon Medical Ce nter (procedure) [code = 568981073] Future Scheduled 1956 Sigmoidoscopy [code = [facility] Sigmoidoscopy] Medical Cente r Future Scheduled 1956 CT Colonography (combo) [facility] Test 00:00:00 [code = CT Colonography [facility] (combo)] Future Scheduled 1956 Screening for malignant [facility] Test 00:00:00 neoplasm of colon Medical Ce nter (procedure) [code = 827659795] Future Scheduled 1956 Screening for malignant [facility] Test 00:00:00 neoplasm of colon Medical Ce nter (procedure) [code = 968229541] Future Scheduled 1956 Screening for malignant [facility] Test 00:00:00 neoplasm of colon Medical Ce nter (procedure) [code = 893381771] Future Scheduled 1956 Screening for malignant [facility] Test 00:00:00 neoplasm of colon Medical Ce nter (procedure) [code = 300323290] Future Scheduled 1956 Sigmoidoscopy [facility]code = [facility] Sigmoidoscopy] Medical Cente r Future Scheduled 1956 CT Colonography (combo) [facility] Test 00:00:00 [code = CT Colonography [facility] (combo)] Future Scheduled 1956 Screening for malignant [facility] Test 00:00:00 neoplasm of colon Medical Ce nter (procedure) [code = 399271518] Future Scheduled 1956 Screening for malignant [facility] Test 00:00:00 neoplasm of colon Medical Ce nter (procedure) [code = 798054506] Future Scheduled 1956 Screening for malignant [facility] Test 00:00:00 neoplasm of colon Medical Ce nter (procedure) [code = 568815640] Future Scheduled 1956 Screening for malignant [facility] Test 00:00:00 neoplasm of colon Medical Ce nter (procedure) [code = 930555095] Future Scheduled 1956 Sigmoidoscopy [facility]code [facility] 00:[facility] Sigmoidoscopy] Medical Cente r Encounters Start End Encounter Admission Attending Care Care Encounter Source Date/Time Date/Time Type Type Clinicians Facility Department ID 2020-10-06 Inpatient ER Vera, Hyacinth [facility] [id number] 13:30:00 -[id number] Manoj Robles 2022-06-28 2022-06-28 [facility] [id number] Univers 08:31:00 11:10:00 [facility]ON [facility] 2022-06-28 2022-06-28 [facility] [id number] Univers 08:31:00 11:10:00 Encounter Jhon BOOTHE [id number] [place] [id number] [facility] 071 Branch 2022-06-28 2022-06-28 Surgery [facility] [id number] Univers 09:34:00 10:08:00 Jhon BOOTHE [id number] [place] [id number] [facility] 020 Branch 2022-06-27 2022-06-[address] [facility] [id number] 13:00:00 13:30:00 Visit [facility] 2022-06-27 2022-06-[address] [facility] [id number] 00:00:00 00:00:00 Only [facility] 2022-06-26 2022-06-26 [facility] [id number] 00:00:00 00:00:00 [facility] 2022-06-26 2022-06-26 Orders Doctor APONTE [id number] Univers 00:00:00 00:00:00 Only Unassigned, JESS [id number] [facility] 4.2.7.2.686 Darrick as [id number] [address] 2022-06-26 2022-06-26 [facility] [id number] [facility] St 00:00:00 00:00:00 [facility] 2022-06-23 2022-06-23 Outpatient [facility] [id number] [facility] 00:00:00 00:00:00 ANNETTE purdy of Medicin e 2022-06-07 2022-06-07 Outpatient R [facility] OPH [id number] Univers 08:00:00 10:35:00 [facility]ON [facility] 2022-06-07 2022-06-07 Hospital [facility] [id number] Univers 08:00:00 10:35:00 Encounter Jhon BOOTHE [id number] [place] [id number] [place] [id number] Branch 2022-06-07 2022-06-07 Surgery [facility] [id number] Univers 09:05:00 09:39:00 Jhon BOOTHE 350.1.13.10 [place] [facility] [id number] [facility] 020 Branch 2022-06-07 2022-06-07 Orders Doctor LUIS [id number] Univers 00:00:00 00:00:00 Only Unassigned, JESS 350.1.13.10 [place] [facility] 4.2.7.2.686 Darrick as [id number] [facility] 009 Branch 2022-05-29 2022-05-29 Care Transitions Nurse Donnie, Adc Lab Main [facility] [id number] Univers 11:15:00 11:30:00 Visit Jhon Aguirre 350.1.13.1 0 [place] PROFESS[place] [id number] [place] [facility] 2022-05-29 2022-05-29 [facility] [id number] Univers 11:15:00 11:15:00 [facility]ON [facility] 2022-05-29 2022-05-29 [facility] [id number] 00:00:00 00:00:00 Only [facility] 2022-05-29 2022-05-29 Shonda [facility] [id number] 00:00:00 00:00:00 Only [facility] 2022-05-26 2022-05-26 [facility] [id number] [id number] 09:30:00 09:30:00 Encounter [facility] 2022-05-26 2022-05-26 [facility] [id number] 09:30:00 09:30:00 Encounter [facility] 2022-05-26 2022-05-[address] NestorAnna [id number] 00:00:00 00:00:00 [facility] 2022-05-26 2022-05-[address] NestorAnna [id number] [facility] 00:[facility]:00 00:00:00 [facility] 2022-05-18 2022-05-[address] [facility] [id number] 00:00:00 00:00:00 [facility] 2022-05-18 2022-05-[address] [facility] [id number] 00:00:00 00:00:00 [facility] 2022-04-27 2022-04-27 Outpatient [facility] [id number] [facility] 13:27:18 13:55:18 VIVI purdy of Medicin e 2022-04-18 2022-04-[address] [facility] [id number] 00:00:00 00:00:00 [facility] 2022-04-18 2022-04-[address] [facility] [id number] 00:00:00 00:00:00 [facility] 2022-04-13 2022-04-13 Outpatient [facility]ONZALES [facility] [id number] [facility] 09:39:29 10:43:42 CHON chowdhury of Medicin e 2022-04-12 2022-04-[address] [facility] [id number] 00:00:00 00:00:00 [facility] 2022-04-12 2022-04-[address] [facility] [id number] 00:00:00 00:00:00 ion [facility] 2022-04-10 2022-04-10 [facility] [id number] 11:02:13 23:59:00 Encounter [facility] 2022-04-10 2022-04-10 [facility] [id number] 11:02:13 23:59:00 Encounter [facility] 2022-04-10 2022-04-[address] [facility] [id number] 09:30:00 10:00:00 Visit [facility] 2022-04-10 2022-04-10 Office ZHOU GonsalezLamScarlet banegasGena [facility] [id number] 09:30:00 10:00:00 Visit [facility] 2022-04-06 2022-04-[address] [facility] [id number] 00:00:00 00:00:00 Only [facility] 2022-04-06 2022-04-[address] [facility] [id number] 00:00:00 00:00:00 Only [facility] 2022-04-04 2022-04-04 Document [facility] [id number] 00:00:00 00:00:00 [facility] 2022-04-04 2022-04-04 Documentat [facility] [id number] 00:00:00 00:00:00 [facility] 2022-03-31 2022-03-[address] [facility] [id number] 00:00:00 00:00:00 [facility] 2022-03-31 2022-03-[address] [facility] [id number] [facility] 00:[facility]00 00:00:00 [facility] 2022-03-30 2022-03-30 [facility] Araceli Amato [facility] [id number] [id number] 11:50:30 23:59:00 Encounter [facility] 2022-03-30 2022-03-30 [facility] Araceli Amato [facility] [id number] [id number] 11:50:30 23:59:00 Encounter [facility] 2022-03-30 2022-03-[facility] [id number] [id number] 11:42:06 11:49:00 Encounter [facility] 2022-03-30 2022-03-[address] [facility] [id number] [id number] 11:42:06 11:49:00 Encounter [facility] 2022-03-30 2022-03-[address] [facility] [id number] 11:00:00 11:41:00 Encounter [facility] 2022-03-30 2022-03-[address] [facility] [id number] [id number] 11:00:00 11:41:00 Encounter [facility] 2022-03-30 2022-03-30 [facility] [id number] [id number] 09:25:37 10:59:00 Encounter [facility] 2022-03-30 2022-03-30 [facility] [id number] [id number] 09:25:37 10:59:00 Encounter [facility] 2022-03-30 2022-03-30 [facility] Araceli [facility] [id number] [id number] 09:25:15 10:59:00 Encounter [facility] 2022-03-30 2022-03-30 [facility] Araceli [facility] [id number] [id number] 09:25:15 10:59:00 Encounter [facility] 2022-03-30 2022-03-30 [facility] [id number] [id number] 09:25:01 10:59:00 Encounter [facility] 2022-03-30 2022-03-30 [facility] [id number] 09:25:01 10:59:00 Encounter [facility] 2022-03-30 2022-03-30 [facility] [id number] 06:00:00 09:24:00 Encounter 3, [facility] [facility] 2022-03-30 2022-03-30 [facility] Araceli Amato [facility] [id number] [facility] 06:00:00 09:24:00 Encounter 3, [facility] 2022-03-30 2022-03-[address] [facility] [id number] [facility]00 00:00[facility]00 [facility] 2022-03-30 2022-03-[address] [facility] [id number] [facility]00 00:00:00 [facility] 2022-03-29 2022-03-29 Office DEVON Bell 1.2.840.114 [id number] [facility] 14:00:00 15:02:44 Visit Vivi AMBULATOR 350.1.13.21 College Y 0.2.7.2.686 [id number] [facility] sabas 815 e 2022-03-29 2022-03-[address] [facility] [id number] 00:00:00 00:00:00 [facility] 2022-03-29 2022-03-[address] [facility] [id number] 00:00:00 00:00:00 [facility] 2022-03-23 2022-03-[address] [facility] [id number] 00:00:00 00:00:00 [facility] 2022-03-23 2022-03-[address] [facility] [id number] [id number] 00:00:00 00:00:00 [facility] 2022-03-22 2022-03-[address] [facility] [id number] [id number] 00:00:00 00:00:00 [facility] 2022-03-22 2022-03-[address] [facility] [id number] 00:00:00 00:00:00 [facility] 2022-03-10 2022-03-[address] [facility] [id number] 00:00[facility]00 00:00:00 [facility] 2022-03-10 2022-03-[address] [facility] [id number] 00:00:00 00:00:00 [facility] 2022-03-10 2022-03-[address] [facility] [id number] [address] 00:00:00 00:00:00 [facility] 2022-03-10 2022-03-[address] [facility] [id number] 00:00[facility]00 00:00:00 [facility] 2022-03-10 2022-03-[address] [facility] [id number] 00:00[facility]00 00:00:00 [facility] 2022-03-10 2022-03-[address] [facility] [id number] 00:00:00 00:00:00 [facility] 2022-03-10 2022-03-[address] [facility] [id number] 00:00:00 00:00:00 [facility] 2022-03-10 2022-03-[address] [facility] [id number] 00:00[facility]00 00:00:00 [facility] 2022-03-08 2022-03-[address] [facility] [id number] 11:30:00 12:00:00 Visit Justin Mac[facility] 2022-03-08 2022-03-[address] [facility] [id number] 11:30:00 12:00:00 Visit Justin Mac[facility] 2022-03-08 2022-03-[address] [facility] [id number] [facility] 10:30:00 11:30:00 [facility] 2022-03-08 2022-03-[address] [facility] [id number] 10:30:00 11:30:00 [facility] 2022-03-08 2022-03-[address] [facility] [id number] 09:00:00 09:30:00 [facility] 2022-03-08 2022-03-[address] [facility] [id number] 09:00:00 09:30:00 [facility] 2022-03-08 2022-03-08 Social Araceli Amato [facility] [id number] 08:30:00 09:00:00 Work [facility] 2022-03-08 2022-03-[address] [facility] [id number] 08:30:00 09:00:00 Work Hair [facility] 2022-03-08 2022-03-[address] [facility] [id number] 08:20:00 08:30:00 Only [facility] 2022-03-08 2022-03-08 Orders EL Everette Araceli [facility] [id number] 08:20:00 08:30:00 Only [facility] 2022-03-08 2022-03-[address] [facility] [id number] 00:00:00 00:00:00 [facility] 2022-03-08 2022-03-[address] [facility] [id number] [id number] 00:00:00 00:00:00 [facility] 2022-03-08 2022-03-[address] [facility] [id number] 00:00:00 00:00:00 [facility] 2022-03-08 2022-03-[address] [facility] [id number] 00:00:00 00:00:00 [facility] 2022-03-08 2022-03-08 Telephone Nestor, [facility] [id number] 00:00:00 00:00:00 [facility] 2022-03-08 2022-03-[address] [facility] [id number] 00:00:00 00:00:00 [facility] 2022-03-06 2022-03-06 [facility] [id number] 00:00:00 00:00:[address] [facility] 2022-03-06 2022-03-[address] [facility] [id number] 00:00:00 00:00:00 [facility] 2022-03-06 2022-03-[address] Yamil, [facility] [id number] 00:00:00 00:00:[address] [facility] 2022-03-06 2022-03-[address] [facility] [id number] [id number] 00:00:00 00:00:00 [facility] 2022-02-28 2022-02-[address] [facility] [id number] [id number] 00:00:00 00:00:00 [facility] 2022-02-28 2022-02-[address] [facility] [id number] 00:00:00 00:00:00 [facility] 2022-02-22 2022-02-[address] [facility] [id number] [id number] 00:00:00 00:00:00 [facility] 2022-02-22 2022-02-[address] [facility] [id number] 00:00:00 00:00:00 [facility] 2022-02-20 2022-02-20 [facility] [id number] 00:00:00 00:00:00 [facility] 2022-02-20 2022-02-20 Orders [facility] [id number] 00:00:00 00:00:00 Only [facility] 2022-02-20 2022-02-20 Telephone [facility] [id number] 00:00:00 00:00:00 [facility] 2022-02-20 2022-02-20 Orders [facility] [id number] 00:00:00 00:00:00 Only [facility] 2022-02-18 2022-02-18 Orders [facility] [id number] 00:00:00 00:00:00 Only [facility] 2022-02-18 2022-02-18 Orders [facility] [id number] 00:00:00 00:00:00 Only [facility] 2022-02-09 2022-02-17 Inpatient ER TRACEY, [facility] Surgery [id number] [facility] 19:40:00 11:24:00 SUYAPA 2022-02-09 2022-02-[address] [facility] [id number] [facility] 19:40:00 11:24:00 Encounter Tk [facility] 2022-02-09 2022-02-[address] [facility] [address] [facility] [id number] [facility] 19:40:00 11:24:00 Encounter Tk Rabago [facility] Tracey [facility] 2022-02-15 2022-02-15 Documentleonid [facility] [id number] 00:00:00 00:00:00 [facility] 2022-02-15 2022-02-15 Paresh [facility] [id number] 00:00:00 00:00:00 [facility] 2022-02-14 2022-02-14 Outpatient EL [facility] [id number] [facility] 00:00:00 00:00:00 2022-02-13 2022-02-[address] [facility] [id number] 07:30:00 09:37:00 [facility] 2022-02-13 2022-02-[address] [facility] [id number] 07:30:00 09:37:00 [facility] 2022-02-13 2022-02-13 Anesthesia [facility] [id number] [facility] 07:26:00 09:06:00 Event Manoj wallace [facility] 2022-02-13 2022-02-13 Anesthesia [facility] [id number] [facility] 07:26:00 09:06:00 Event Manoj wallace [facility] 2022-02-09 2022-02-09 Outpatient [facility] [id number] [facility] 19:40:00 23:59:00 [facility] 2022-02-09 2022-02-09 Outpatient [facility] [id number] [facility] 00:00:00 19:39:00 [facility] 2022-02-09 2022-02-[address] [facility] [id number] 11:00:00 12:00:00 Visit [facility] 2022-02-09 2022-02-[address] [facility] [id number] 11:00:00 12:00:00 Visit [facility] 2022-02-09 2022-02-09 Outpatient CONCHITA ARMSTRONG [id number] [facility] 11:42:22 11:42:22 RISE 2022-02-09 2022-02-09 Outpatient CONCHITA OWENS SLE [id number] [facility] 00:00:00 00:00:00 PRASUN 2022-02-09 2022-02-[address] [facility] [id number] 00:00:00 00:00:00 [facility] 2022-02-09 2022-02-09 [id number] 00:00:00 00:00:00 [facility] 2022-02-09 2022-02-[address] [facility] [id number] 00:00:00 00:00:00 [facility] 2022-02-09 2022-02-09 Travel [facility] [id number] [facility] 00:[facility]00 00:00:00 [facility] 2022-02-09 2022-02-[address] [facility] [id number] 00:00:00 00:00:00 [facility] 2022-02-09 2022-02-[address] [facility] [id number] 00:00:00 00:00:00 [facility] 2022-02-09 2022-02-[address] [facility] [id number] 00:00:00 00:00:00 [facility] 2022-02-09 2022-02-09 Documentat [facility] [id number] 00:00:00 00:00:00 [facility] 2022-02-09 2022-02-09 Telephone Cleve, [facility] [id number] 00:00:00 00:00:00 [facility] 2022-02-09 2022-02-09 Travel [facility] [id number] [facility] 00:00:00 00:00:00 [facility] 2022-02-09 2022-02-09 Tele[address] Enzo, [facility] [id number] 00:00[facility]00 00[facility]00[facility]00 [facility]22-[facility]22-02-[address] [facility] [id number] 00:00:00 00:00:00 [facility] 2022-02-08 2022-02-08 Outpatient ZHOU MIDDLETON [facility] [id number] [facility] 00:00:00 00:00:00 MADDIE 2022-02-08 2022-02-08 Outpatient ZHOU JIANG [facility] [id number] [facility] 00:00:00 00:00:00 PRASUN 2021-10-11 2021-10-26 [facility] [id number] [facility] 14:19:00 16:56:00 Mary 42 [facility] 2021-10-12 2021-10-12 Outpatient NANDO KiddCL LABO [id number] [facility] 01:15:00 01:15:00 Mary 08 [facility] 2021-10-10 2021-10-10 Transition CARLOS Molina [id number] [id number] Univers 00:00:00 00:00:00 of Care Sadie SHI 350.1.13.10 it y of JIGNAZA 4.2.7.2.686 [facility] [id number] [place] [id number] [place] 2021-10-05 2021-10-08 [facility] Babatunde Aragon [facility] 1.2.840.1 14 [id number] Univers 09:32:00 11:36:00 Encounter Fredo Berrios 350.1.13.10 ity of Rashad Malone 4.2.7.2.686 [facility] [id number] [place] [id number] [place] 2021-10-05 2021-10-08 Inpatient X DESIRE [facility] [id number] Univers 09:32:00 11:36:00 RASHAD chibertin [facility] 2021-04-11 2021-04-11 Emergency ER Provider, [facility] [id number] 10:28:00 10:28:00 Express -[id number] Melvin Robles 2020-10-05 2020-10-05 Emergency ER Provider, [facility] [id number] 11:17:00 11:17:00 Express -[id number] Melvin Robles 2020-06-11 2020-06-11 Emergency ER Provider, [facility] [id number] 12:11:00 12:11:00 Express -[id number] Melvin Robles Results Test Description Test Time Test Comments Results Result Comments Source ALPHA FETOPROTEIN (AFP), TUMOR MARKER 2022-06-27 18:16:36 Test Item Value Reference Range Interpretation Comme nts ALPHA-FETOPROTEIN (BEAKER) (test code = 1094) 3.1 ng/mL <10.0 Agriculture Engineer ID - BSBASIC METABOLIC [id number] 17:38:25 Test Item Value Reference Range Interpretation Comments SODIUM (BEAKER) 138 meq/L 136-145 (test code = 381) POTASSIUM 4.2 meq/L 3.5-5.1 (BEAKER) (test code = 379) CHLORIDE (BEAKER) 103 meq/L 98-107 (test code = 382) CO2 (BEAKER) 25 meq/L 22-29 (test code = 355) BLOOD UREA 32 mg/dL 7-21 H NITROGEN (BEAKER) (test code = 354) CREATININE 1.49 mg/dL 0.57-1.25 H (BEAKER) (test code = 358) GLUCOSE RANDOM 99 mg/dL 70-105 (BEAKER) (test code = 652) CALCIUM (BEAKER) 9.3 mg/dL 8.4-10.2 (test code = 697) EGFR (BEAKER) 52 Interpretatio n of eGFR (test code = mL/min/1.73 values Stage De scription 1092) sq m Result G1 Nasima l or high >=90 G2 Mildly decreased 60-89 G3a Mildl y to moderately 45-5 9 G3b Moderately to s everely 30-44 G4 Severl y decreased 15-29 G5 Kidney failure <15Reported eGF R is based on the CKD-EPI 2020 equation that d oes not use a race coefficientEsti mated GFR is not as accur ate as Creatinine Sheree dickson in predicting glom erular filtration rate . Estimated GFR is not appl icable for dialysis patien ts Agriculture Engineer ID - BSHEPATIC FUNCTION [id number] 17:38:25 Test Item Value Reference Range Interpretation Comments TOTAL PROTEIN (BEAKER) (test code = 7.6 gm/dL 6.0-8.3 770) ALBUMIN (BEAKER) (test code = 1145) 3.8 g/dL 3.5-5.0 BILIRUBIN TOTAL (BEAKER) (test code 0.8 mg/dL 0.2-1.2 = 377) BILIRUBIN DIRECT (BEAKER) (test 0.4 mg/dL 0.1-0.5 code = 706) ALKALINE PHOSPHATASE (BEAKER) (test 100 U/L 40-150 code = 346) AST (SGOT) (BEAKER) (test code = 34 U/L 5-34 353) ALT (SGPT) (BEAKER) (test code = 20 U/L 6-55 347) Agriculture Engineer ID - BSPROTHROMBIN [id number] 17:10:59 Test Item Value Reference Range Interpretation Comments PROTIME (BEAKER) 15.2 seconds 11.9-14.2 H (test code = 759) INR (BEAKER) (test 1.22 See_Comment [Automat ed message] code = 370) The system [employer] generated this result transmitted ref erence range: <=5.90. The reference range was not used to int erpret this result as normal/abnormal . RECOMMENDED COUMADIN/WARFARIN INR THERAPY RANGESSTANDARD DOSE: 2.0 - 3.0 Includes: PROPHYLAXIS for venous thrombosis, systemic embolization; TREATMENT for venous thrombosis and/or pulmonary embolus.HIGH RISK: Target INR is 2.5-3.5 for patients with mechanical heart valves.CBC W/PLT COUNT & AUTO [id number] 17:06:57 Test Item Value Reference Range Interpretation Comments WHITE BLOOD CELL COUNT (BEAKER) 4.1 K/ L 3.5-10.5 (test code = 775) RED BLOOD CELL COUNT (BEAKER) 3.78 M/ L 4.63-6.08 L (test code = 761) HEMOGLOBIN (BEAKER) (test code = 12.3 GM/DL 13.7-17.5 L 410) HEMATOCRIT (BEAKER) (test code = 35.4 % 40.1-51.0 L 411) MEAN CORPUSCULAR VOLUME (BEAKER) 94 fL 79-92 H (test code = 753) MEAN CORPUSCULAR HEMOGLOBIN 32.5 pg 25.7-32.2 H (BEAKER) (test code = 751) MEAN CORPUSCULAR HEMOGLOBIN CONC 34.7 GM/DL 32.3-36.5 (BEAKER) (test code = 752) RED CELL DISTRIBUTION WIDTH 14.5 % 11.6-14.4 H (BEAKER) (test code = 412) PLATELET COUNT (BEAKER) (test code 57 K/CU MM 150-450 L = 756) MEAN PLATELET VOLUME (BEAKER) 9.4 fL 9.4-12.4 (test code = 754) NUCLEATED RED BLOOD CELLS (BEAKER) 0 /100 WBC 0-0 (test code = 413) NEUTROPHILS RELATIVE PERCENT 67 % (BEAKER) (test code = 429) LYMPHOCYTES RELATIVE PERCENT 19 % (BEAKER) (test code = 430) MONOCYTES RELATIVE PERCENT 9 % (BEAKER) (test code = 431) EOSINOPHILS RELATIVE PERCENT 4 % (BEAKER) (test code = 432) BASOPHILS RELATIVE PERCENT 1 % (BEAKER) (test code = 437) NEUTROPHILS ABSOLUTE COUNT 2.71 K/ L 1.78-5.38 (BEAKER) (test code = 670) LYMPHOCYTES ABSOLUTE COUNT 0.76 K/ L 1.32-3.57 L (BEAKER) (test code = 414) MONOCYTES ABSOLUTE COUNT (BEAKER) 0.37 K/ L 0.30-0.82 (test code = 415) EOSINOPHILS ABSOLUTE COUNT 0.17 K/ L 0.04-0.54 (BEAKER) (test code = 416) BASOPHILS ABSOLUTE COUNT (BEAKER) 0.02 K/ L 0.01-0.08 (test code = 417) IMMATURE GRANULOCYTES-RELATIVE 0.50 % 0.00-1.00 PERCENT (ANTHONY) (test code = 2801) CT, [id number] 14:02:00 [facility] 1955 Sex: MFINAL REPORT ABDOMINAL AND PELVIS CT DATED 04/12/2022 [...] A 1.6 x 2.4 cm cyst is seenin the upper pole right kidney. The small and large bowel are unremarkable. Appendix is as normal incaliber. Prostate is normal in size. The urinary bladder is contracted. No mass, adenopathy or ascites is present. IMPRESSION: 1. Cirrhosis with splenomegaly and portal hypertension.2. No suspicious hepatic mass.3. Distended gallbladder without gallstone, gallbladder wall thickening, pericholecystic fluid collection, or biliary dilatation.4. Right renal cyst. Signed: Iva Atkins MDReport Verified Date/Time: 04/12/2022 14:02:36 Reading Location: [facility] B1 C013Y CT Body Reading Room Electronically signedby: IVA ATKINS M.D. on 04/12/2022 02:02 PMBASIC METABOLIC PANEL 2022-04-10 15:05:39 Test Item Value Reference Range Interpretation Comments SODIUM (BEAKER) 133 meq/L 136-145 L (test code = 381) POTASSIUM 4.8 meq/L 3.5-5.1 (BEAKER) (test code = 379) CHLORIDE (BEAKER) 96 meq/L 98-107 L (test code = 382) CO2 (BEAKER) 26 meq/L 22-29 (test code = 355) BLOOD UREA 30 mg/dL 7-21 H NITROGEN (BEAKER) (test code = 354) CREATININE 1.32 mg/dL 0.57-1.25 H (BEAKER) (test code = 358) GLUCOSE RANDOM 101 mg/dL 70-105 (BEAKER) (test code = 652) CALCIUM (BEAKER) 9.4 mg/dL 8.4-10.2 (test code = 697) EGFR (BEAKER) 61 Interpretatio n of eGFR (test code = mL/min/1.73 values Stage De scription 1092) sq m Result G1 Nasima l or high >=90 G2 Mildly decreased 60-89 G3a Mildl y to moderately 45-5 9 G3b Moderately to s everely 30-44 G4 Severl y decreased 15-29 G5 Kidney failure <15Reported eGF R is based on the CKD-EPI 2020 equation that d oes not use a race coefficientEsti mated GFR is not as accur ate as Creatinine Sheree dickson in predicting glom erular filtration rate . Estimated GFR is not appl icable for dialysis patien ts Agriculture Engineer ID - MITCHOperator ID - BSHEPATIC FUNCTION [id number] 14:50:35 Test Item Value Reference Range Interpretation [...] (test code = 17 U/L 6-55 347) Agriculture Engineer ID - MITCHPROTHROMBIN TIME/[id number] 14:23:04 Test Item Value Reference Range Interpretation Comments PROTIME (BEAKER) 15.7 seconds 11.9-14.2 H (test code = 759) INR (BEAKER) (test 1.33 See_Comment [Automat ed message] code = 370) The system [employer] generated this result transmitted ref erence range: <=5.90. The reference range was not used to int erpret this result as normal/abnormal . RECOMMENDED COUMADIN/WARFARIN INR THERAPY RANGESSTANDARD DOSE: 2.0 - 3.0 Includes: PROPHYLAXIS for venous thrombosis, systemic embolization; TREATMENT for venous thrombosis and/or pulmonary embolus.HIGH RISK: Target INR is 2.5-3.5 for patients with mechanical heart valves.CBC W/PLT COUNT & AUTO [id number] 14:15:48 Test Item Value Reference Range Interpretation [...] 2801) MR, ABDOMEN, WITHOUT / WITH IV [id number] 14:22:00NAGA HURT MDUnlisted Reason for Exam - Click Yes and Enter Reason Below->YesUnlisted Reason for Exam->Pre [facility] liver [facility] 1955 Sex: MFINAL REPORT MRI of [...] nonspecific, suggest attention on future exam. Signed: Juana Martinezeport Verified Date/Time: 04/01/2022 14:22:50 Carotid doppler [id number] 08:35:57Ejection FractionSLEH ECHO HEARTLAB MKCKESSON [facility] [id number] 08:35:57Ejection FractionSLEH ECHO HEARTLAB MKCKESSON [facility] do[facility] [id number] 08:35:57Ejection FractionSLEH ECHO HEARTLAB CKMO[facility]inoRAD, MANDIBLE, MIN 4 VIEWS 2022-03-30 17:25:00SINAGA DELAROSA MDReason for Exam:->[facility] ALCIRA : 1955 Sex: MFINAL REPORT MANDIBLE 5 VIEWS HISTORY: Liver transplant evaluation COMPARISON: No comparison mandibular imaging FINDINGS: Prasanna, PA, bilateral oblique, and lateral images of the mandible were obtained. No mandibular fracture is visualized. No bony destruction is visualized in the mandible. No periapical abscess. Multiple lucencies are seen in the remaining teeth and tooth remnants suggestive of multiple maxillary and mandibular dental caries. Signed: Fredo Mcdermott MDReport Verified Date/Time: 03/30/2022 17:25:00 ECHO W CONTRAST & DOPPLER 2022-03-30 15:51:59Ejection FractionSLEH ECHO HEARTLAB MKCKESSON [facility]inoE[facility] W CONTRAST & [id number] 15:51:59Ejection FractionSLEH ECHO HEARTLAB MKCKESSON [facility] CONTRAST & [id number] 15:51:59Ejection [facility] ECHO HEARTLAB MKCKESSON CPACSCHI [facility] HospitalRAD, BONE DENSITY [id number] 12:37:00NAGA HURT MDReason for Exam:->[facility] 1955 Sex: MFINAL REPORT BONE MINERAL DENSITY CLINICAL HISTORY: Liver transplant evaluationCOMPARISON: No prior comparison bone mineral density studies REPORT: Bone Mineral Density Measurement: Lumbar Spine (L1-L4): 0.888 g/bn6Nxxl Femoral Neck: 0.803 g/cm2 Standard Deviation as [...] Mcdermott Verified Date/Time: 03/30/2022 12:37:59 Reading Location: [facility] Radiology Reading Room Electronically signed by: Elvia HAND 03/30/2022 12:37 PMRAD, CHEST, 2 [id number] 12:33:00 NAGA HURT MDReason for Exam:->[facility] liver [facility] : 1955 Sex: MFINAL REPORT HISTORY: Liver [...] IMPRESSION: Small right pleural effusion. Signed: [facility] Verified Date/Time: 03/30/2022 12:33:13 Reading Location: [facility] Radiology Reading Room BLOOD GAS, [id number] 11:58:00 Test Item Value Reference Range Interpretation [...] (test code = 1819) 21.0 MISCELLANEOUS LAB [id number] 14:30:49 Test Item Value Reference Range Interpretation Comments SCAN RESULT (test code = See scanned report [id number]) See scanned reportDrug screen, urine, [id number] 11:57:47 Test Item Value Reference Range Interpretation Comments Scan Result (test code = See scanned report [id number]) ALLYN (test code = ALLYN) [facility] [id number] 11:57:47 Test Item Value Reference Range Interpretation Comments Scan Result (test code = See scanned report [id number]) ALLYN (test code = ALLYN) See scanned report [facility], [id number] 11:57:47 Test Item Value Reference Range Interpretation Comments Scan Result (test code = See scanned report [id number]) ALLYN (test code = ALLYN) See scanned report [facility], URINE, [id number] 11:57:47 Test Item Value Reference Range Interpretation Comments SCAN RESULT (test code = See scanned report [id number]) See scanned reportHEPATITIS C PCR, [id number] 06:16:44 Test Item Value Reference Range Interpretation Comments HCV RESULT COMPONENT HCV RNA not detected HCV RNA not detected (BEAKER) (test code = 2699) This test uses a Real-Time Polymerase Chain Reaction (RT-PCR) methodology and was performed using [employer] Ampliprep/NALLELY TaqMan HCV test kit version 2.0 ([employer]Reportable range for this assay is 15 - 100,000,000 IU per mL (1.18 - 8.00 Log IU/mL).[id number] 16:08:46 Test Item Value Reference Range Interpretation Comments T3 TOTAL (BEAKER) (test code = 1.00 ng/mL 0.60-1.81 656) Agriculture Engineer ID - LITOCRYPTOCOCCAL [id number] 14:02:47 Test Item Value Reference Range Interpretation Comments CRYPTOCOCCAL ANTIGEN, SERUM Negative Negative, Interference (BEAKER) (test code = 1828) Urinalysis w/Dfhbtfrrzbu8012-67-68 13:43:44 Test Item Value Reference Range Interpretation Comments Color, UA (test Yellow code = 5778-6) Clarity, UA (test Clear code = 5767-9) Specific Randolph, 1.013 1.001-1.035 UA (test code = 5811-5) pH, UA (test code 5.0 5.0-8.0 = 5803-2) Protein, UA (test Negative Negative code = 57498-3) Glucose, UA (test Negative Negative code = 365) Ketones, UA (test Negative Negative code = 2514-8) Bilirubin, UA Negative Negative (test code = 09710-3) Blood, UA (test Negative Negative code = 68541-9) Nitrite, UA (test Negative Negative code = 5802-4) Leukocytes, UA Negative Negative (test code = 5799-2) Urobilinogen, UA 0.2 mg/dL 0.2-1.0 (test code = 87758-7) RBC, UA (test 1 See_Comment [Automated me ssage] code = 77556-0) The system [facility] generated this result transmit britta reference range : /HPF. The refer ence range was not u sed to interpret th is result as normal/abnormal . WBC, UA (test 1 See_Comment [Automated me ssage] code = 5821-4) The system [facility] generated this result transmit britta reference range : /HPF. The refer ence range was not u sed to interpret th is result as normal/abnormal . Bacteria, UA None Seen (test code = 44634-1) Mucus (test code Rare = 8247-9) Squam Epithel, UA <1 See_Comment [Automate d message] (test code = The system [facility] [place] 34509-9) generated this result transmit britta reference range : /HPF. The refer ence range was not u sed to interpret th is result as normal/abnormal . Hyaline Casts, UA 7 See_Comment [Automate d message] (test code = The system [employer] 44584-6) generated this result transmit britta reference range : /LPF. The refer ence range was not u sed to interpret th is result as normal/abnormal . Crystals, Urine None Seen (test code = 58315-3) Specimen Source (test code = 2795) ALLYN (test code = Agriculture Engineer ID - ALLYN) [auto]Agriculture Engineer ID - tech [facility]/Aamimjxkfrp6549-89-38 13:43:44 Test Item Value Reference Range Interpretation Comments Color, UA (test Yellow code = 5778-6) Clarity, UA (test Clear code = 5767-9) Specific Randolph, 1.013 1.001-1.035 UA (test code = 5811-5) pH, UA (test code 5.0 5.0-8.0 = 5803-2) Protein, UA (test Negative Negative code = 67467-6) Glucose, UA (test Negative Negative code = 365) Ketones, UA (test Negative Negative code = 2514-8) Bilirubin, UA Negative Negative (test code = 70767-2) Blood, UA (test Negative Negative code = 47510-5) Nitrite, UA (test Negative Negative code = 5802-4) Leukocytes, UA Negative Negative (test code = 5799-2) Urobilinogen, UA 0.2 mg/dL 0.2-1.0 (test code = 52510-6) RBC, UA (test 1 See_Comment [Automated me ssage] code = 36281-3) The system [facility] generated this result transmit britta reference range : /HPF. The refer ence range was not u sed to interpret th is result as normal/abnormal . WBC, UA (test 1 See_Comment [Automated me ssage] code = 5821-4) The system [facility] generated this result transmit britta reference range : /HPF. The refer ence range was not u sed to interpret th is result as normal/abnormal . Bacteria, UA None Seen (test code = 43569-5) Mucus (test code Rare = 8247-9) Squam Epithel, UA <1 See_Comment [Automate d message] (test code = The system [facility] 28267-1) generated this result transmit britta reference range : /HPF. The refer ence range was not u sed to interpret th is result as normal/abnormal . Hyaline Casts, UA 7 See_Comment [Automate d message] (test code = The system [facility] [place] 538[address]-1) generated this result transmit britta reference range : /LPF. The refer ence range was not u sed to interpret th is result as normal/abnormal . Crystals, Urine None Seen (test code = 85538-5) Specimen Source (test code = 2795) ALLYN (test code = Agriculture Engineer ID - ALLYN) [auto]Agriculture Engineer ID - tech [facility]/Fdgrsoxxtty5148-27-13 13:43:44 Test Item Value Reference Range Interpretation Comments Color, UA (test Yellow code = 5778-6) Clarity, UA (test Clear code = 5767-9) Specific Randolph, 1.013 1.001-1.035 UA (test code = 5811-5) pH, UA (test code 5.0 5.0-8.0 = 5803-2) Protein, UA (test Negative Negative code = 95617-7) Glucose, UA (test Negative Negative code = 365) Ketones, UA (test Negative Negative code = 2514-8) Bilirubin, UA Negative Negative (test code = 98109-4) Blood, UA (test Negative Negative code = 00580-3) Nitrite, UA (test Negative Negative code = 5802-4) Leukocytes, UA Negative Negative (test code = 5799-2) Urobilinogen, UA 0.2 mg/dL 0.2-1.0 (test code = 70300-3) RBC, UA (test 1 See_Comment [Automated me ssage] code = 64506-1) The system [facility] generated this result transmit britta reference range : /HPF. The refer ence range was not u sed to interpret th is result as normal/abnormal . WBC, UA (test 1 See_Comment [Automated me ssage] code = 5821-4) The system [facility] generated this result transmit britta reference range : /HPF. The refer ence range was not u sed to interpret th is result as normal/abnormal . Bacteria, UA None Seen (test code = 00031-1) Mucus (test code Rare = 8247-9) Squam Epithel, UA <1 See_Comment [Automate d message] (test code = The system [facility] [place] 63[address]-8) generated this result transmit britta reference range : /HPF. The refer ence range was not u sed to interpret th is result as normal/abnormal . Hyaline Casts, UA 7 See_Comment [Automate d message] (test code = The system [employer] 81998-0) generated this result transmit britta reference range : /LPF. The refer ence range was not u sed to interpret th is result as normal/abnormal . Crystals, Urine None Seen (test code = 59092-7) Specimen Source (test code = 2795) ALLYN (test code = Agriculture Engineer ID - ALLYN) [auto]Agriculture Engineer ID - tech [facility]/ QIISAWKOVNM3907-49-71 13:43:44 Test Item Value Reference Range Interpretation [...] = 1521) SOURCE(BEAKER) (test code = 2795) Agriculture Engineer ID - [auto]Agriculture Engineer ID - [id number] 13:12:40 Test Item Value Reference Range Interpretation Comments RPR SCREEN (BEAKER) (test code = Nonreactive Nonreactive 420) EBV ANTIBODY, [id number] 12:53:45 Test Item Value Reference Range Interpretation Comments INDERJIT PEÑA VIRAL CAPSID Positive Negative, Equivocal A ANTIGEN IGG (BEAKER) (test code = 3415) Inderjit Peña Viral Capsid Antigen IgG Result Interpretation: </= 0.8 Al Negative 0.9-1.0 Al Equivocal >/= 1.1 Al PositiveHEMOGLOBIN [id number] 11:53:00 Test Item Value Reference Range Interpretation Comments HEMOGLOBIN A1C 4.4 % See_Comment [Automated m essage] ELECTROPHORESIS (BEAKER) The system which (test code = 3811) generated this result transmitted ref erence range: <=5.6%. The reference range was not used to int erpret this result as normal/abnormal . "The A1c is measured using a [facility]-certified method. HbA1c value equal to or greater than 6.5% as thediagnosis cutoff for diabetes. An HbA1c value of 5.7- 6.4% indicates increased risk for diabetes (prediabetes)."Agriculture Engineer ID - ADMOperator ID - ADMVITAMIN D, 35-AAORVXS9427-05-17 11:50:11 Test Item Value Reference Range Interpretation Comments VITAMIN D 25-OH (BEAKER) (test 15.5 ng/mL 6.6-49.9 code = 2764) Effective 05/02/2017: Reference Range ChangeNew: 6.6-49.9 ng/mL Previous: 13.0- 47.8 ng/mLRecommendedVitamin D Target Range: 30.0-40.0 ng/mLOperator ID - NELLIE [id number] 11:42:19 Test Item Value Reference Range Interpretation Comments PROSTATE SPECIFIC ANTIGEN (BEAKER) 0.0 ng/mL 0.0-4.0 (test code = 844) Agriculture Engineer ID - MITCHHIV-1 ANTIGEN WITH HIV-1/2 [id number] 11:41:26 Test Item Value Reference Range Interpretation Comments HIV-1 ANTIGEN WITH HIV 1\\T\\2 Nonreactive Nonreactive ANTIBODY (2) (BEAKER) (test code = 2586) Agriculture Engineer ID - MITCHHEPATITIS B CORE ANTIBODY, [id number] 11:40:50 Test Item Value Reference Range Interpretation Comments HEPATITIS B CORE IGM ANTIBODY Nonreactive Nonreactive (BEAKER) (test code = 645) Agriculture Engineer ID - MITCHHEPATITIS B CORE ANTIBODY, [id number] 11:40:50 Test Item Value Reference Range Interpretation Comments HEPATITIS B CORE TOTAL ANTIBODY Nonreactive Nonreactive (BEAKER) (test code = 497) Agriculture Engineer ID - MITCHCARCINOEMBRYONIC ANTIGEN (CEA)2022-03-08 11:40:49 Test Item Value Reference Range Interpretation Comments CARCINOEMBRYONIC ANTIGEN (BEAKER) 7.6 ng/mL 0.0-5.0 H (test code = 685) Agriculture Engineer ID - MITCHALPHA FETOPROTEIN (AFP), TUMOR [id number] 11:40:49 Test Item Value Reference Range Interpretation Comments ALPHA-FETOPROTEIN (BEAKER) (test 3.6 ng/mL <10.0 code = 1094) Agriculture Engineer ID - MITCHCYTOMEGALOVIRUS ANTIBODY, [id number] 10:49:27 Test Item Value Reference Range Interpretation Comments CYTOMEGALOVIRUS, IGG (BEAKER) Negative Negative, Equivocal (test code = 3429) CMV IgG Result Interpretation: </= 0.8 Al Negative 0.9-1.0 Al Equivocal >/=1.1 Al PositiveEBV ANTIBODY, [id number] 10:49:27 Test Item Value Reference Range Interpretation Comments INDERJIT PEÑA VIRAL CAPSID Negative Negative, Equivocal ANTIGEN IGM (AKER) (test code = 3418) Inderjit Peña Viral Capsid Antigen IgM Result Interpretation: </= 0.8 Al Negative 0.9-1.0 Al Equivocal >/= 1.1 Al PositiveRUBELLA ANTIBODY, IGG 2022-03-08 10:49:27 Test Item Value Reference Range Interpretation Comments RUBELLA IGG QUANTITATION (AKER) > IU/mL <8.0 H (test code = 572) Rubella IgG Result Interpretation: </= 7.0 IU/mL Negative - Presumed non- immune 8.0 - 9.9 IU/mL Equivocal >= 10.0 IU/mL Positive - Presumed immune VARICELLA ZOSTER ANTIBODY, [id number] 10:49:27 Test Item Value Reference Range Interpretation Comments VARICELLA ZOSTER IGG (AL) (BEAKER) 3.2 (test code = 3197) VARICELLA ZOSTER RESULT INTERPRETATIONS: <=0.8 Al Nonreactive: Presumed non- immune to VZV 0.9-1.0Al Equivocal >=1.1 Al Reactive: Presumed immune to VZV [id number] 10:16:02 Test Item Value Reference Range Interpretation Comments THYROID STIMULATING HORMONE 4.679 uIU/mL 0.350-4.940 (BEAKER) (test code = 772) Agriculture Engineer ID - BLESSING [id number] 10:15:57 Test Item Value Reference Range Interpretation Comments T4 TOTAL (AKER) (test code = 895) 7.6 ug/dL 4.9-11.7 Agriculture Engineer ID - BLESSING [id number] 10:07:58 Test Item Value Reference Range Interpretation Comments FERRITIN (BEAKER) (test code = 126.78 ng/mL 5.00-275.00 361) Agriculture Engineer ID - BLESSING MGAMMA GLUTAMYL TRANSFERASE (GGT)2022-03-08 09:59:35 Test Item Value Reference Range Interpretation Comments GAMMA GLUTAMYL TRANSFERASE (BEAKER) 25 U/L 9-64 (test code = 364) Agriculture Engineer ID - BLESSING MCOMPREHENSIVE METABOLIC [id number] 09:59:34 Test Item Value Reference Range Interpretation [...] not appl icable for dialysis patien ts Agriculture Engineer ID - BLESSING [id number] 09:59:34 Test Item Value Reference Range Interpretation Comments MAGNESIUM (BEAKER) (test code = 2.1 mg/dL 1.6-2.6 627) Agriculture Engineer ID - BLESSING [id number] 09:59:34 Test Item Value Reference Range Interpretation Comments PHOSPHORUS (BEAKER) (test code = 4.3 mg/dL 2.3-4.7 604) Agriculture Engineer ID - BLESSING MURIC [id number] 09:59:34 Test Item Value Reference Range Interpretation Comments URIC ACID (BEAKER) (test code = 5.9 mg/dL 2.6-7.2 773) Agriculture Engineer ID - BLESSING MLIPID [id number] 09:59:34 Test Item Value Reference Range Interpretation Comments TRIGLYCERIDES (BEAKER) (test code = 49 mg/dL 540) CHOLESTEROL (BEAKER) (test code = 111 mg/dL 631) HDL CHOLESTEROL (BEAKER) (test code 48 mg/dL = 976) LDL CHOLESTEROL CALCULATED (BEAKER) 53 mg/dL (test code = 633) Triglyceride Reference Range: Low Risk <150 Borderline 150-199 High Risk 200-499 Very High Risk >=500Cholesterol Reference Range: Low Risk <200 Borderline 200-239 High Risk >240HDL Cholesterol Reference Range: Low Risk >=60 High Risk <40LDL Cholesterol Reference Range: Optimal <100 Near Optimal 100-129 Borderline 130-159 High 160-189 Very High >=190 Agriculture Engineer ID - BLESSING MBILIRUBIN, [id number] 09:59:34 Test Item Value Reference Range Interpretation Comments BILIRUBIN DIRECT (BEAKER) (test 0.5 mg/dL 0.1-0.5 code = 706) Agriculture Engineer ID - BLESSING [id number] 09:56:49 Test Item Value Reference Range Interpretation Comments TRANSFERRIN (BEAKER) (test code = 235 mg/dL 174-382 541) Agriculture Engineer ID - BLESSING [id number] 09:54:11 Test Item Value Reference Range Interpretation Comments ETHANOL (BEAKER) < mg/dL See_Comment [Automated message] The (test code = 400) system [employer] generated this result tra nsmitted reference range : <=10. The reference r tatum was not used to int erpret this result as normal/abnormal . Agriculture Engineer ID - BLESSING GENA, TIBC, % SAT. (WITHOUT FERRITIN)2022-03-08 09:54:11 Test Item Value Reference Range Interpretation Comments IRON (BEAKER) (test code = 547) 74.0 ug/dL 40.0-160.0 TOTAL IRON BINDING CAPACITY 296 ug/dL 250-450 (BEAKER) (test code = 769) IRON % SATURATION (2) (BEAKER) 25 % 20-55 (test code = 2590) Agriculture Engineer ID - BLESSING [id number] 09:44:26 Test Item Value Reference Range Interpretation Comments FIBRINOGEN LEVEL (BEAKER) (test 258 mg/dl 225-434 code = 658) [id number] 09:44:05 Test Item Value Reference Range Interpretation Comments PARTIAL THROMBOPLASTIN TIME 31.6 seconds 22.5-36.0 (BEAKER) (test code = 760) PROTHROMBIN TIME/[id number] 09:43:28 Test Item Value Reference Range Interpretation Comments PROTIME (BEAKER) 16.3 seconds 11.9-14.2 H (test code = 759) INR (BEAKER) (test 1.40 See_Comment [Automat ed message] code = 370) The system [employer] generated this result transmitted ref erence range: <=5.90. The reference range was not used to int erpret this result as normal/abnormal . RECOMMENDED COUMADIN/WARFARIN INR THERAPY RANGESSTANDARD DOSE: 2.0 - 3.0 Includes: PROPHYLAXIS for venous thrombosis, systemic embolization; TREATMENT for venous thrombosis and/or pulmonary embolus.HIGH RISK: Target INR is 2.5-3.5 for patients with mechanical heart valves.CALCIUM, [id number] 09:39:26 Test Item Value Reference Range Interpretation Comments CALCIUM IONIZED (BEAKER) (test 1.12 mmol/L 1.12-1.27 code = 698) PH, BLOOD (BEAKER) (test code = 7.42 1810) CBC W/PLT COUNT & AUTO [id number] 09:37:44 Test Item Value Reference Range Interpretation [...] (test code = 2801) Varicella zoster PCR, [id number] 12:21:21 Test Item Value Reference Interpretation Comments Range Source-Eric ABDOMEN dy Site (test code = 3329234) VZV NOT DETECTED REFERENCE RANGE : NOT DETECTED DNA,Qual. This test was d eveloped and its PCR (test analytical code = performancechar acteristics have 6275460) been determined by [email or web address].It has not been cleared or appr damian by FDA. This assay hasb een validated pursuant to the CLIA regulations and isused for clinical purpos es. ALLYN (test Performing Lab code = *[facility] ALLYN) [facility] [address] [address] Thiago Ji MD, PhD [facility] PCR, [id number] 12:21:21 Test Item Value Reference Interpretation Comments Range Source-Eric ABDOMEN dy Site (test code = 9490814) VZV NOT DETECTED REFERENCE RANGE : NOT DETECTED DNA,Qual. This test was d eveloped and its PCR (test analytical code = performancechar acteristics have 7763003) been determined by [email or web address].It has not been cleared or appr damian by FDA. This assay hasb een validated pursuant to the CLIA regulations and isused for clinical purpos es. ALLYN (test Performing Lab code = *[facility] ALLYN) [facility] [address] [address] Thiago Ji MD, PhD [facility]ic[facility]oster PCR, [id number] 12:21:21 Test Item Value Reference Interpretation Comments Range Source-Eric ABDOMEN dy Site (test code = 6969701) VZV NOT DETECTED REFERENCE RANGE : NOT DETECTED DNA,Qual. This test was d eveloped and its PCR (test analytical code = performancechar acteristics have 3263944) been determined by [email or web address].It has not been cleared or appr damian by FDA. This assay hasb een validated pursuant to the CLIA regulations and isused for clinical purpos es. ALLYN (test Performing Lab code = *[facility] ALLYN) Diagnostics [facility] [address] [place] [address] Thiago Ji MD, PhD [facility]2022-02-17 20:18:48 Test Item Value Reference Range Interpretation Comments SARS-COV2/RT-PCR (test Negative Negative code = 47885-6) ALLYN (test code = ALLYN) Negative result [...] the Act. Testing was performed using the [employer] SARS-CoV-2 assay. Fact Sheet for Healthcare Providers:https://www.tarah dudley/tex/RT SARS-CoV-2 HCP Fact Sheet 51-560503.pdf Fact Sheet for Healthcare Patients:https://www.rudolph collier/tex/RT SARS-CoV-2 Patient Fact Sheet EN 51-894370V3.pdf Lab Interpretation Normal (test code = 67874-6) [facility]2022-02-17 20:18:48 Test Item Value Reference Range Interpretation Comments SARS-COV2/RT-PCR (test Negative Negative code = 30263-3) ALLYN (test code = ALLYN) Negative result [...] the Act. Testing was performed using the [employer] SARS-CoV-2 assay. Fact Sheet for Healthcare Providers:https://wwwqamar dudley/tex/RT SARS-CoV-2 HCP Fact Sheet 51-308487.pdf Fact Sheet for Healthcare Patients:https://www.rudolph collier/tex/RT SARS-CoV-2 Patient Fact Sheet EN 51-700546C5.pdf Lab Interpretation Normal (test code = 67485-3) [facility]2022-02-17 20:18:48 Test Item Value Reference Range Interpretation Comments SARS-COV2/RT-PCR (test Negative Negative code = 55545-6) ALLYN (test code = ALLYN) Negative result [...] the Act. Testing was performed using the [employer] SARS-CoV-2 assay. Fact Sheet for Healthcare Providers:https://www.tarah dudley/tex/RT SARS-CoV-2 HCP Fact Sheet 51-434765.pdf Fact Sheet for Healthcare Patients:https://www.[employer]/tex/RT SARS-CoV-2 Patient Fact Sheet EN 51-197125R0.pdf Lab Interpretation Normal (test code = 51927-1) [facility])2022-02-17 20:18:48 Test Item Value Reference Range Interpretation Comments SARS-COV2/RT-PCR (test code = Negative Negative 4479902) Negative result for this test determines that [...] 564(g) of the Act.Testing was performed using [employer] SARS-CoV-2 assay.Fact Sheet for Healthcare Providers:https://www.[employer]/tex/RT SARS-CoV-2 HCP Fact Sheet 51- 997432.pdfFact Sheet for Healthcare Patients:https://www.[employer]/tex/RT SARS-CoV-2 Patient Fact Sheet EN 51-411867N3.pdfPHOSPHATIDYLETHANOL, BLOOD 2022-02-16 14:08:41 Test Item Value Reference Range Interpretation Comments PHOSPHATIDYLETHANOL (PETH) See scanned (test code = 6751400) report See scanned reportBody fluid culture + gram [id number] 17:10:16 Test Item Value Reference Range Interpretation Comments Result (test code = 6463-4) No [facility] [id number] 17:10:16 Test Item Value Reference Range Interpretation Comments Result (test code = 6463-4) No growth [facility] gram [id number] 17:10:16 Test Item Value Reference Range Interpretation Comments Result (test code = 6463-4) No growth [facility] + GRAM [id number] 17:10:16 Test Item Value Reference Range Interpretation Comments CULTURE (BEAKER) (test code = 1095) No growth [id number] 09:41:17 Test Item Value Reference Range Interpretation Comments Case Report (test code Medical Cytology Report = 104) Case: [id number] Authorizing Provider: Milena Swartz MD Collected: 02/13/2022 08:24 AM Ordering Location: [facility] PERIOPERATIVE Received: 02/13/2022 09:40 AM SERVICES Pathologist: Jam Villarreal MD Specimen: Peritoneal Fluid ADDENDUM (test code = p9empKSbSWOrrDK0PwWpONK 3381) gq7vcn3UvaSVxuBQlVSnoxO GvzqZgxi59tVR2cL94EO1vM KQoFzQ3PKFdluW9Ocj3QMEz NNFdoQAvG785w1rwv6xzhxD skOT8yFdyIAUxqhkxEqP7BY onLQFftggpNTj1ZWdzCRYqp VB7VAVcvVHgL1VlUADpCA9k axm3OAH0XNnpMBGqBjG4USH xpTEfBCPjoMavBXoyv887TG T3DxJmAAQnxwUadOqigQ2oK nMyMCBUaGlzIGFkZGVuZHVt OFewSQDuYDMunM6meXA0kKO jiVhaVFUvcDsad3reTwElAB F9aMZ1NDPsutEqBN9JCw0oB LEfy8ZsVV3etZXcfNooiWxh aHQgZXBpdGhlbGlhbCBjZWx abj6sgXEwjU== DIAGNOSIS (test code = u6xrmAZfJXGiv3seHFKodGM 3220) uZzEwMzNcZnRuYmpcdWMxIH tccnRmMVxlcGljOTYwMlxhb zIwVOMwpZEtO5XthjxjIQod LE2eJO2ovFwshIHbyUAwGJI zAfTnd5ddi224nIMbv3ocVB AAagffjSb1vLaiQ74sb4M6B ucgW94uyHMnKCK1IZMhVMHh dUZiKAVxMBG3MVUsaFTwQ1k tVNIoUJ3eybthSAyaCBfvRZ OchPK7VUNyhKJuC5GtOBJuL KnsKEMiurf3OzGgFz0lrHJx eTcyMFxwYXJkXHBsYWluXGZ zMjAgUEVSSVRPTkVBTCBGTF VCJNEnA6xMI2RKDM1XDRWNO ULISQcLEXFRR5RQWAeusEmb CZItDCYcUR9OH4AIRFXHBTY RDyCFXPnVO75ROpXXVNRpol YoGFWjLLBcURQ4gVVeBE8yw 290aGVsaWFsIGNlbGxzLCBj qPOwcwgyJRlrPjlwzR1cyUw xxvIcuhZbh14qYBEkP5V9MF SbviWrJK2eMSAvc42zmGRwd 7HcwRmyYPF0d7xvpPMfSSSz dGUxODAwMFxhbnNpXGRlZmx rtzueYJXnMRL7hiXhCPFrAR uoBMWhMAjdBv5zmRTqmRiwX rNnRMIsb8fcpoCZhisshTx6 o0htJJNiHzD8yRFpXFfmS0f bqlWrrBSvVPUwLGr9nC00OX MmeI1qmNOjKCrxnnUvGzD4Z RaiRMGfDeQ6RLHkpIUzZBDt V1yoPPKuXDsyJSMnXFtxvYY xDHM2xGhfe0I2tSSjeFEsaY fyFgKkZbFsEpNJt7OxIFo6x KwpI7FpGLEuOrK1jEUaGILu BLjxTGCwLAOlbwF7zA55URq qxzK5xSWpi5Vmx32hs616tT 4bwIOkNIJ8QVNaGMEehLHpA JCmGJZ0KHDljUWfS5njHBYg MT0mddhfNRgkJJmkZVDxhTE 1KJNtwQLzE3KkBIWhNCtdHK Nbpeg0GgQaPu2fgLXqvLxjD Njfz9cbx2rgpTRqCcf6KWAe VfEoCychRMkyw6Rtw0tfYHU qfm2iVFZ8fXBwrAapj0L7dH UgBZWqkSCoSXOfRQ4aiFCaV SRrnX9indohRRKyTqMihynx YHWjoHalbqUdOb8ieApuBOY 1BXwnY5zadP7cZtM0LCceP6 vwmS6mCDs9PAzaWAKxjFF6d dK4DICrrZAvP3CtxG4bTEAu KF2nhqi0w0nhGPW0QYxtYSV dAaX8jjL5IWVuuVLmQYEkjF uqNFxer368UDW8VlOiLDJoj 1XfE9TdwDaiB61jhLwfU96o ZSAqqLwufJ5mnJdqoY7wWiG xPlLuOKivrPnsKW1iIGSkS2 pscPSeAJJqOYRfG6lvPhIdr Y6ngHcyYXsayoZfUJQcVjb8 UYAvoRRsHDYlLpu6UBSsURO vL88qlixhLVJ9tG2vp5qcf0 BeGNppRLD2ZPEcr20bIJchu zB6KXkrBd47YGriCQL9WEun YXJ9fQ== CPT Code(s) (test code o1soqCZoOILsmGO1UlToVMS = 3357) yf8osp2XhuXMspMJyNKgsxO ZwqfRhux37bTQ4nG62XS1jW HPtAkL4LFGosyX0Gcz5OQTl ICTrqBLaQ464t2adh5yjhcE ikGC2sEwqVDIjslvmAwU0HE uiEKTldgckAYn1JJkxCGGwi SP8ARYhwBWaM1IxZZQlYQ4y alh8PAK6LSnsQOSpLmH0DPE ozORsXOWruBejLXrsa060AT B4InItHJJoozBtlMitxF9eS jTpDYW3KXSsUYhaSNliMNCt cGFyfQ== CLINICAL DATA (test k9uvaVUnDAFjpTV6QlDcKFX code = 3355) cx6frp6VhjNNuyJIcINahhQ HjeiHdgr08gUK6rR77GK0fN NYiSeN6NGCfjaF2Xvo5PQJj BXMiyLMqN780q1fvr9hfqzO yjFI8rMehEQSicbzmJxG0ZA vpLYEmvfqdFZc3VYqqTLIdc JU1EUAtsZVhZ0MkLRFjDG8i imr6ONE0ZYhzBMMaJwX4BFE niHPsFNDioIhrKEuap391VD H9IeZwJQPwfsFlzHntaF0uT tCaHWRAp0XgjHUvPWFDN9Bd GKZ0D3rzJXDcd50hMR2rKXB xSKWpcKDecS5kaNUuBKGeQ0 m6IJElHYpNJKvedL7xcApkP 7CjYHqbvk2kRLFyA3vzGYBl TJNsmY2aKCRssy9= SPECIMEN SOURCE (test b3bddKKcAIAnbDO6ZuZbJOP code = 3377) le1ytf7LfrECvyLWyXPfzrI MjuiDewi56vOU1pI22UW3cR HFeOiO5PYOjuhV1Bno7GASh PNXcePAaM011o9xyr2hpoiZ nwUC7dAmyYPUyytgdItM7MD loKNOxdkhnKSg8KEeiFPDrm VS3HDDwuQQeE6LcMXRvCJ9o bwj1RYX8VHmjZWQaBzN2XXL jmTJaCDKllOyvUDvux100DG B5QsAwHIUugmDokRnidF6wK dEiQAIQELWLSB4XRBFHFKTK VUlEXHBhcn0= GROSS DESCRIPTION u4cxjSFdWHHsjBWFJBOsY5a (test code = eddGzDIPcxYYyZ8VuczkuKQ 6735130121) vsCM0nDS0inXohdGLezLNqX K3KSAMfGhGlWIBexDVrywWj YiBgLIJbxPQgaBS8SUAoCD3 jsqjpJJdpGHtaHUEqeuY6BL BlbWWnE2VhITVgSE4dbwqmN YQ7GWcvwP9vrvRNNrbvJy0w dHRibHtcZjFcZmNoYXJzZXQ tSLYutDupBTEpONy1oC4MGo osHRA8LVCFWrkeRWExET9Yx 0uiVLBztAVeYOU2GYzweTAj JSNtPILrMSd9KZVtJVtsiBZ kCL6feKajSaizfEskr2NntY BcXGlkIDUxMDAyIFxcZGIgI I4XClVvODT2RhDjCBPpRBg3 FMs7VG2DMgTnWXSvZJIqHsS iHFXbHXl1GUlfXT4TUFP4IC Q0POh6LiE4RJQsHeVzKDNlU iBcXGYgQXJpYWwgXFxmbCBc ZE1uqJqduQZyvgHAVlQKSUP uiB6bACLfZUUybRifJzutAW SnETqvAIMxH52hl6VWs6DqC J4BFNt3reTbcvvpgO2wZLZb ovKmDQkjgKNlB0jkVwGjQGB FZTLmhIUbDYB6DKOnpIAbMX 9nHGAyRfu9yGH0ZGJcKKSnd vXhRFDdY5g9a6KmcA3yDMTn PXRdYBcjLNNjb8FnAVGaOWZ gRVCzWJBnNFamBAIrs7QuSP nndbKcbXixHWShthEdo6VyY WklokWriQWqZmTjTWPdQF1k KYI9EzG3DfIwBlSzNQkloLr biD6bMOAwB55wd6UCs5LcLK ZzGLksk5ohxDrmd2SjxKEcK OntULNycUZqDYxfeC8aPtWj m7dylRv4MJfcigK5ZLUlox3 DMkyulE7sLyDgw4iggNg3HG SYMxdfznZ8p1skkUprx9Xhx SJzVS8KDp0= MICROSCOPIC a1tanKGmQGBvyMV2GxWnSFV DESCRIPTION (test code wk7aym2YgpJRtjZKxGXcegV = 3371) NqtjKzwh03vFP0dF95ZA3zL RLrEgV7NNXclyR9Pfw1YRDc CLTiaWFaX770z4fpv5axelF tqIX7xFfqWDGuwdgxIdY5LF qzGTKxmgspLGd0SFzcLGGey AB5WMTjqTOvK1BeALCzEK9y bue6JMW9TMfbPNGzZtL1RGO qbSCzNMIrfXldPRyfu462ED V1OtEzAJXiqmFkgQzahY1sM mWiXIUXIWHpt7PwARYnBCuv YXJ9 STATEMENT OF ADEQUACY Satisfactory (test code = 2757) Gross assessment was [facility] performed at ([facility], code = 2777) Department of Pathology, [address] [place] [phone], Technical component [facility] was performed at ([facility], code = 2778) Department of Pathology, [address] [place] [address] 37772, Professional component [facility] was performed at ([facility], code = 2779) Department of Pathology, [address] [place] [address], [facility] Test Item Value Reference Range Interpretation Comments Case Report (test code Medical Cytology Report = 104) Case: [id number] Authorizing Provider: Milena Swartz MD Collected: 02/13/2022 08:24 AM Ordering Location: [facility] PERIOPERATIVE Received: 02/13/2022 09:40 AM SERVICES Pathologist: Jam Villarreal MD Specimen: Peritoneal Fluid ADDENDUM (test code = n6ikqGOiJZKwrDZ6VtArJQP 3381) id4zcn2JatLGicNOiOFmqvO YatyPkcz91zYT1zC19RX9tC UIfUqY1LEWhafX1Lvg7JTMv OPCgkWUjG511i1jey2mmlxU leSW0qUfoWGOnpaagEtU3GZ eeXASndvozXEv8EFkkIRTtb IH1RDHylIZqK8YoBOImUJ3x tjz7TRD3EFejPNWvScN6TQS fzXWwBFZpaUeqBWcwb098YD G8GxXiCYSakvUkvHopdK2kK nMyMCBUaGlzIGFkZGVuZHVt PWceETFgZNCdnM3ruAM0kBJ lhVtsCVMvlSrcz7jqYpXdVD W0cRQ9KCPbqoQwTE1KYu3yH PAos4GiKD2zqJTxrCvqdFqw aHQgZXBpdGhlbGlhbCBjZWx oeb3tjZWbgB== DIAGNOSIS (test code = x0eztHNnLGZfz8xiFQCooXD 3220) uZzEwMzNcZnRuYmpcdWMxIH tccnRmMVxlcGljOTYwMlxhb jUtPGAtuPKyV5OhoeqcXHqz PI6hWY5vxWdgzYSkxRYvQVW tMeJgb8nhe604eKJsj8fzDJ ZEmjbpsAy3xMavB35ok6Q1M syeJ44prTPrZFM2DZIdHBAm wDPyEURyEHN2NDCzpSZnL7j xNSKgTG6ugxrmVRjdAZtsDC RwtDJ7LGPsqTJkU7CoFUOqE QmaVWRkmmv2RtMrAr8kvFNm eTcyMFxwYXJkXHBsYWluXGZ zMjAgUEVSSVRPTkVBTCBGTF GMOBTdR1rWL1ZNFG6GKXNVG OHXHQyHQEYPS2THRUxscOir DFRlANLqFU0VY5VKKEOUIRF PXaFGIKpYF45UZmIGCZZepd LoKPAkLQQtPZA5wIWoHU2ew 290aGVsaWFsIGNlbGxzLCBj tPOuraigWRlsQrkwmP3geRz xabRfthAug77jIVOeX8R3UN LuqpQdUY0kRWFmo69nvVZpl 0PftDexLDL1e4kktHWzXVCc dGUxODAwMFxhbnNpXGRlZmx wzftnBNOaCCO4ubXxEBUtIG gyDOJmCDnvKy4xmCPpsRdqO qZpRQSbd0toaxDRmaipjRt3 s2gvHCKyNdQ4wCUzXBfaA4m oedBadUQxTWKyZZn7uP69US RmfG6taURzAUtnfmTiEiE8V CqdMTZrQuW8YBDtlMMxRUIp E7acJWXqFUqwYFAuIUgahLG oXYT6kSdlm1J0uXGywHYqzD hxTdXoYwYmSgONz5FeBUv8x HmsM8AyVCFoDoN1gRWvDMPg ZVciOSIeIEPcddV6pS51BNy nudN4dMYiz7Jaf53oe831lL 6amPZcEZW5DJYbXUDquURpU PVvFQG9YNYgdVPsO7pyGJLv MH4hogbbWMsyHVtdAVUqxGR 6XPEyiHVdE8GzICZzFEyyXL Ovxyw3ZiYtLg4psKBrnKwsW Epla4fza2yzoPPaTwn8HHWp KnFgTautRXmav8Ohg8gtBEI bfj2tVNW5sKRiyLiux5A4mW KpIFCxvKFsCRUtUK0waPRtZ ORgiB7vskjfZWBiRrJbhspi IGCbfFhiupQuTe6laCxmLMT 4DJwxV6mibL6nSrW0FLbnZ3 ncmQ9pDLd1DJqtMQKmbUP7h sK3LBAyrNDyZ6EepS6iPKIp BD5tzww4l4mgHWZ7PQmsNPM iBkE8hpZ8YSLegKBlSPUilA wfDGefo422UVW5JjEeHPKdf 5AlO6LhlRmnD54ieSftN25r BUMnqScuiG6lfMpbqF6hXkD yZsWmHYmbqWhoSG0wVXPnY7 bhxDJkEVDkRBOwD0bmJmYqt R9jfRyaLJwuiaFmSKOwOnk2 GPNwgBOvNDTsMcp2AAYeZMX rU60jthvdJUN5qN9mz3koi8 VxEUfsDXX2XJNqz11bLFskh jA2EYkiZo10FHivBFM9GEoy YXJ9fQ== CPT Code(s) (test code m5nsgLQvMAKujIM7JnFmKFK = 3357) eg1obf1WdpFXftKRwNTibaO KwfiQcif28iRZ6xD60RC7eA SUdIkW1AFYzzqR7Jht8SMGn XYXuyIVgQ396w9giu6mdfaJ juPY2kDmtVFFdugayMdZ2UM ggLWJlszbaQCr4NQmpWEVhn JZ5WZVepNKzE0YuHPFgVG0e gbt4WVV4HLdoHLYuRxI9OUI foEFaSEQjnVtpOGrcx637KA T4JuHvOFWkbnNxbIqxbF1sH zSiERK6VTFcHYxuWQipUMUa cGFyfQ== CLINICAL DATA (test j7lkuTFyDWBflSA8NaVcXOT code = 3355) xv4quc3YdcBNriVSxJLdoiM VmriNmll05zJY0rJ05IP2aX UPnMbP4DVSadbW1Uiv9WQXt UEYnmNZqY461y9biu3kjlcP itUV0fDktQGUapgboRkJ0LT ymKALhiabsAFf5MZlxCQZgn RS2DDZvfDLzZ4YzDGUoKU5b niq0DKQ1VAydXXRlWiD3MFM izPEhXCCdqNttRXeyo077PD B5WkYySFVwglGktKnmuB8yO iWeSBBVo4VbuQVoGWBSY9Bx ABJ3K9zmBIGnd73yKP5qCZN gZRLowEWzgI2rwNXnUTYrU0 q4FCJzSQrUNTkypL1vnRlgZ 3OeBVdfui2cBSHwQ2jyWORw QHYqtQ8oOXNqql7= SPECIMEN SOURCE (test r1ltoDWaZDSoeMN4RkHbYFG code = 3376) yp1eqp9NkwFAizWXvFXtumL DzjlVork62jCV0aP78DF4oB CHdGzY6SHBdggA7Ovf0YGHc KZKyzPAsH480m6afx0tbrlL fcJJ1wQbaCSEmkshlBaW1WQ viOUWgvrolYUo8WEyoSBWrp BY2XCNqjJEpX7IdVUPvEI5o zax1SOA4BBehWPNxXnZ5YXS jgRZkQFWhzUmcLXlnz702LQ M5JqGgRKQklpVmuFaybU0zB yDaAXMZQUFOJB6HEBOWKGEM VUlEXHBhcn0= GROSS DESCRIPTION i4gnlFLtSUKvdMBUXEXjV5g (test code = wtrMpXYYbbXMaE3QcvupjHQ [id number]) vtWB1oRQ1zhYhpgFGuhVEpH W8KBEWbUgTqISRfkTHyahXt HvYiXYHckRHjhIC0PEZfOZ8 odpanJKrcFGqgFOKhznH2FL HzlPOuE8ElQOGgYX5lqnxmK NT8OMxsqM5vsaLHHfhhJj2s dHRibHtcZjFcZmNoYXJzZXQ lOLMjvSluLICeKHy7hJ1HQj jwHQH8DBZUZekqRNEtEU7Jq 8fiBEWvkPUcJAB9ONqcbDSv ILAcLDUfLSv8DCDtRCsqzQQ kED7mbCniPmfapLetk6ApkY BcXGlkIDUxMDAyIFxcZGIgI A6WFoHlUHY2TqWzZVYuMFf3 ISu6AL3XTmNwPXQsTARqRmE zRVNcCXp2OMwqLW7CVYD3ND Z7MXu5KcB4KQTnKlRmGRNwG iBcXGYgQXJpYWwgXFxmbCBc CA0clPwmvLYvekIPRiESQSL hjT3dEMGbJXUahBmnQpliXW DbXSovLRZvB64ky7DZw4RxY Q1HTGx6znMhcqxcyK6fUTWc etYuPLbhwTKuX6mxAfDxHIR XTJUxePIwVUE3VEUkxODxZY 2oPKJjUgv2yLB8HWDyFKGrv dAaCXTgD2x0u1XauU1kEFEo QMMkOYsbRBPep1YtWWUyKEF fOTRmDJYmNIqvJUWsl8YtES jtkqWafBuuIACmlcHyy4JcF QbxvqOpcNHmSfKgJBCcOE9z YEB7BcX3PkYkMrEoXGczaIo lhI5eQAMjD14mn1QLa5IdNN HrPMykg9mcmEcip9RraSZdD JtxOSPheFOnAYqooB3hWhQc g5jfyIy8VNqrgkE8XDHgkl4 NJsqxdR4mXcWzh3isfIf6JI IXFdjvliM8j4zhhSxxg8Dgm LKmEI1RRl8= MICROSCOPIC k4vgjMIrTIIbkIQ8JrMhQPX DESCRIPTION (test code xg0nna9BmqFBmlGQuWLjfkV = 3371) AildAgto94kMS1aH08FY8nU DOvCiK3UCNbidX5Ksz3SZIk NSFrvXCsX165s1mhq4tyspR jgRV3kSfwMWYkqujnDrZ7UA dqWCCrcsuySBl5OMiaJGLma QC0LCTizZSpK3HlNFAbOE2b vrv0JOP6ZBkyKEGbMbO5PPK ngKVuXEGckJtfKBadd413PU Y9FiWtBMUtdsXzaZjtyV6qL tVaEJUZRAPlh1DhMFPoUYty YXJ9 STATEMENT OF ADEQUACY Satisfactory (test code = 2757) Gross assessment was [facility] performed at ([facility], code = 2777) Department of Pathology, [address] [place] [address], Technical component [facility] was performed at ([facility], code = 2778) Department of Pathology, [address] [place] [address] 15749, Professional component [facility] was performed at ([facility], code = 2779) Department of Pathology, [address] [place] [address], [facility]17 Test Item Value Reference Range Interpretation Comments Case Report (test code Medical Cytology Report = 104) Case: [id number] Authorizing Provider: Milena Swartz MD Collected: 02/13/2022 08:24 AM Ordering Location: [facility] PERIOPERATIVE Received: 02/13/2022 09:40 AM SERVICES Pathologist: Jam Villarreal MD Specimen: Peritoneal Fluid ADDENDUM (test code = x0dtbQElOXOteGQ1GfDkBRX 3381) yt1dua7KawHRrmKSyVLeimC RsaqDzzz93bLL8pS61AT5pR BMlOaW1ZSEskqZ7Fiq3UWIg TXJjmHLcF672q6lua6muhcT itTN5eXziDLXcwuroIjT9VC paTRIlfbfbRGv2CKilGLRsc AL2EGUdpWEnC6VwFCQqLC9s gmc5DXX4GOpoSYSmEfV5CMC goNScXJJspAglCWoul377VO M4UeKsGCYuyjKcyAgfqL9nY nMyMCBUaGlzIGFkZGVuZHVt RGzuLPHzJDKrsC5enEE8rGR dyZfpPJSklXlli5fyJtPeNG D7aKA0BNRiecTqRE2OQs0yL BGqe9FcEI7mgZPapFyaaUdu aHQgZXBpdGhlbGlhbCBjZWx wqd8rtZBntL== DIAGNOSIS (test code = g9sgiYPeWMGtd3hvBACggCQ 3220) uZzEwMzNcZnRuYmpcdWMxIH tccnRmMVxlcGljOTYwMlxhb mBxICBgcMAoD5XljnbmRXzh LS2qLM4quOqbwUSctXHcEPW xXaEjp0abv730nVLbo0ddUL HOnghudHr1uItjQ84we2R5T fxiS77cfPFoFLO6EEYjIKXs yDHiFBGeVIN7VKUiiVLcI3a tRNHbZW1quwnzLTvnLMziBD UoiAI6KSZrrEWqI8RvTVMhY JsjXUBxfnj6IwGcVj6iwUCa eTcyMFxwYXJkXHBsYWluXGZ zMjAgUEVSSVRPTkVBTCBGTF ISKJYsR5hSA7SXBJ1USQNXK ICFOXrAVITNZ4GKJNmauDuy ZIMwEBMdOV7TJ9VSOQWBQYF WNgVIOUaOV09TOmXFHBDygd HwIJBeEURsYSU6bLJhUL0gs 290aGVsaWFsIGNlbGxzLCBj vYHieljbUDesTwxywX9fxNl ccnDgjbOot94yJDKvK9V0HD DiygJkVK3tLOGel09lpAUvx 4TulGyiFGA5w2hgwJZoNHTj dGUxODAwMFxhbnNpXGRlZmx qfnjsDXIpXOF6koGqMEXoEO mpZIGaXNjzKe0izMNwaHksU vYlMKSjo4wvptAGlekxyFg2 y7zmVOPaXeE3tARlGPvbY5w cwcEukGBmXRQvFIo7cG16IU CevM7rdSGhBMrdhdTaWeR6Z QtlBRBrGoK3ZAWlsNBgVDLx R3ycPOKsOSgcNJSmOEvhvKW jBEU8vXeny1X4qFJscBJgmC anNpTqXfQwMnMLc7CcHEu6d CefE8BvWZQyEyN2xYYsJPRs EQssXRTyXEQnbgO6fR56OFm vubO1eFAtg1Cib66mc814mY 2faTXeFJL3RYQyLRIxuJMtQ SQeXVL5EKFovIWnX7zpMSMn DB4vvfkeRWbhJUbeUXZywKO 8YOLycMRnL3KuFRJjPCfhNP Fauml3XkUuGv1ufBCziFaoS Rdzb3mki0ymaEIoLtt9OMQo VyXrDzojQHeox9Ssy2zuVQG zqn4oTDK6gXKyaCisq7L9mA AtMFHukRIvCKFbAM0taUSfE FOclV4asjxnOBFaFeBwasem EDNqzSgddbVvVb5dsIpiAPL 4WOhnC9gisB3zOzC0QFaeI5 dpsF2lJZi7RUttMHLemBO7h kU6FMWwbXGsE0VrsE5wTBAp TJ7abeo5b8ptJUV0PYvxZFU tIpC7daG8NOEhxKBwYUQukQ jgLUfrc480SDB1QwDhQUKml 5McY7UtoBbuC06vkFkvE07k AMZtsAakgK1apFojjM9xQvZ aMaAbESwbgJfrVD1zFIXzC4 nbxZNjRSEeWADxV7yfRhGcu N8wdZrtNWehhdDfZDClQjf9 QEIwdDEnSAGaRbo0BXEgWSL oY37bsksjYQP7qG3qe4teq8 GnUDphRIV2WNIba90nFNymf mO5IOncBs49AOufJPK9YBrh YXJ9fQ== CPT Code(s) (test code s7njlVBkUHYdeKA9RrYjLZQ = 3359) oe5fqg8LybUEkpEUjLIsbwJ LrwuLmyx41xGE5cJ76GX8uC LIfDaT8CGUazgJ3Uet0GMGp IOIarXCbT215i7iid8chtiU skHB7fSstEOMbobeuIdJ9VX ezGYPwfvaoHAv2KNglMNPgp HT6ASCorFGkV8OxMWTdFK8s pmg4PLO9PSxpCRAjGcL1SRD sfDPnLLFqgLtlUOnrc204TM G2JpVaRKApdhQxmPsnkK7xU iLlYVX2NHPxFJibDFsnJCHo cGFyfQ== CLINICAL DATA (test a0ofjMRkDUPteQW2IgZbZEZ code = 3355) up7kje9GbhBObfWNnDIzfzN UzuwVgiw19cWB8lO79QE6lP EKaJaR8ZQKbwdV7Vpt2FTAj UDGcxYEgS923c5aob8xgneP fdMY6iUjpKELbmjwmKaX8IG zjMSOyrmaiIRz0VOcvJBUfx CP5KBItwJFpF4BuBWPuKG0b iyj5FYW9MYzeCRTgSzY3NYA miGVoQJDpyAbkDTlor833EA O8OuSqQBXgftXzwSknrN1zP fOeSJEDe2DeaXMbBODGI9Ll IAM4Q5kaQSSmh52wSX8vFRE gUAKfxQKubT2roUOcEJTdR0 k4YRRlBMmTWBnoxH1wgNwcO 0SwZUlozb0vJDKiJ1hsMEWr SKJyhE9wCRMlrp3= SPECIMEN SOURCE (test n1oewJMzNMTreYX4WyUcPUK code = 3377) za6tos1LpuRLypVNvVMyfvD HmanUdts64oYB2aR94UJ7xA TFtYcI6ABWfulE6Agu2DGUw ADOenQYrH493z4vsw1kcdqE etOY3qWciNUHqrztsAxR1PL lqEKCjtxkmAPj7AJryPEWmc KJ3WAMmhXVdP5YvNOZlZQ3k sch3IAE5NXhwOMPlZzR6TEM axKHkJHHsfPaeQYagq010HZ Z5MjIxZXTbflLqiLskdC4uJ tCqYNYBMKTIRA1RMBNKJSAQ VUlEXHBhcn0= GROSS DESCRIPTION e7kbuYYjCQKawQZMNGFtX1e (test code = rwsOvYOIwrHJbC7PlgmtuZV [id number]) glNO5cQB3gaCrhmETbpAHfZ H9MGGAyKwZoFEPgnRWpkfDb RiYeEVUqjOPdhGW8YHNvKH2 twtpfEDayWSkbUIOaptJ0AW QznINjZ3ApNFAyWG7cjivlP PO6VQrjxM5eczZHLjwtFt2s dHRibHtcZjFcZmNoYXJzZXQ jAXPziZmeCNXyXUd6qC1ISy ikQGW7GCUAOcwcIWFbON1Cp 0nwZHVwxYEgABN8JFdnfQCl PAGqWMSuCAh8ROOdSLnweAT hHF7piRniVnbfmGvfa8CnsH BcXGlkIDUxMDAyIFxcZGIgI T0DYsNvUMS1TkBkRJBuNOi0 HZk6KX2KGkYzHVXxNYAvLaZ bNOLmNVl6IAmeZH5USNW4JN Z0EJx6CfH0YMZdEzMnOBXfC iBcXGYgQXJpYWwgXFxmbCBc BE7hhDwijGYfvqUAYbAQAKB srN3dAFCeRWJghLdxUaiqGC KrDUyuXZTtB70ev0JUg4GgT C7VZJo6ihLuzsucyZ5mEMXb lqNlAAehyXIxP6hyYmOeJXL YFBJrcPSySUQ0PSCzpYFkXO 8xUKJyOgj5oOD4JSFpBANnk yEuMNKiS1v7v1UegR3jJUDc HXYrSLglIRXci1UnGRRhRXH sJTRrMJNnBQfzRBZov4MuNF hnevIvcZbbLFLlsbJso5VrM DsoudLplFUeGbBgLHFtWL1i NUH4FnN9ElTaMsPiBYwhgKg kzC4fMHXdT49dw4RMz4UlFG XuTChlu0cgdIldy8YwuSLxC KyjLNEcjTRpNFehjD2dApLi v8peoHi9GEwyobU8XAYcum0 JTbmwyC6sTeZse7hypFq3DI YGObxxdjH5q4epnLyel7Jjz UUiKC8EMr7= MICROSCOPIC v3ezxRWnRNXgeBQ5RdXkDEB DESCRIPTION (test code nq8xwe7SjlOTpsFOcMHaxeE = 3371) XobmBwyk92fQU4dF07DB4cK TWvCqD9ZNBrmcU4Urj2QVVf HWEolVIfY513c8nhy3kyyoZ njBE5eJruGIPbjcstAaF6GY xyJZEjwkzwEAj9TJfsWTUfp HE6ITLoqLDpG8ZqVDLfWQ1b uux0KAF5QUmrEEQwNaU1RYW etGAdCSYkiJpgYKjoq893CZ S5QzAeOYDbveXhcWmokH7vO jFaINVPDJDhj8JoEZRdOEdq YXJ9 STATEMENT OF ADEQUACY Satisfactory (test code = 2757) Gross assessment was [facility] performed at ([facility], code = 2777) Department of Pathology, [address] [place] [address] 13588, Technical component [facility] was performed at ([facility], code = 2778) Department of Pathology, [address] [place] [address] 01328, Professional component [facility] was performed at ([facility], code = 2779) Department of Pathology, [address] [place] [address], [facility]:17Medical Cytology Report Case: [id number] Authorizing Provider: Milena Swartz MD Collected: 02/13/2022 08:24 AM Ordering Location: [facility] PERIOPERATIVE Received: 02/13/2022 09:40 AM SERVICES Pathologist: Jam Villarreal MD Specimen: Peritoneal Fluid This addendum is to report the the following result:- MOC-31 does not highlight epithelial cells.Addendum electronically signed by Jam Villarreal MD on 02/15/2022 at 9:41 AMPERITONEAL FLUID (CYTOSPINS AND CELL BLOCK): - NEGATIVE FOR MALIGNANCY Reactive mesothelial cells, chronic inflammation and some acute inflammation present Signing Pathologist Direct Phone Line: [phone] signed by Jam Villarreal MD on 02/14/2022 at 12:17 [id number], [id number], HCV, EtOH decompensated cirrhosis (ascites, HE), umbilical hernia p/w abd pain.PERITONEAL FLUIDA. Peritoneal Fluid.Received 80 mls zay fluid; prepared 4 cytospins and cell block(A2) - the cell block was fixed in formalin at 1:02 pm on 02/13/[address] [facility], Department of Pathology, [address] [place] [address], [facility], Department of [facility], [address] [place] [address], [facility], Department of [facility], [address] [place] [address] 8[address]75, RTELG [id number] 20:00:56 Test Item Value Reference Range Interpretation Comments CULTURE (BEAKER) (test No growth in 5 days code = 1095) The specimen volume collected for this blood culture was below the optimum (10 mL per bottle or 20 mL total). Use of lower volumes may adversely affect recovery and/or detection times of some organisms.BLOOD [id number] 20:00:55 Test Item Value Reference Range Interpretation Comments CULTURE (BEAKER) (test No growth in 5 days code = 1095) Tissue [id number] 19:09:30 Test Item Value Reference Range Interpretation Comments Case Report (test code Surgical Pathology = 104) Report Case: [id number] Authorizing Provider: Milena Swartz MD Collected: 02/13/2022 08:26 AM Ordering Location: [facility] PERIOPERATIVE Received: 02/13/2022 09:18 AM SERVICES Pathologist: Annita Borwer MD Specimen: Hernia, Hernia Sac DIAGNOSIS (test code = e8gigILtDJWom1paUSVcpTE 3220) uZzEwMzNcZnRuYmpcdWMxIH tccnRmMVxlcGljOTYwMlxhb jBvIDEciHHcT5SitvfbJMau MO3uLM9dbXzwsLIneBKcLRY jOuDzl8ylt838wMUsw5mpLX ZVsmbmaEd5oGcuU69ml0Q3F uqmE02uhJYqGZG0TDZaLIPo qWAlITKpPUV5AGPqzHAnL7e nNJLaBM4mhsyxVCrqBIdpVM GzwFE3YMUeuTGsF7TvLASbZ OwsRVMrxzn5PsVdKa9ogRLw eTcyMFxwYXJkXHBsYWluXGZ zYaPlT1sUUbDIPvInW35COJ PJYZBZWKCuAMWNQV2VPQ9fU TxQJe3DY6EAKBPUINqnkOEl XGxpNzIwXGxpbjcyMCAtIEZ MInPKNuJRG4HIYPEuQSgXT7 AWBOCQD5PENBnwIBuFKQKhJ gxyQcCDLMuNNY4VY61QLUCA JVRNEKSTOYtRGVFOE33VFGX AZQ4CQIMjjkOkJUsNZQeuIH XLRgnORCBQW9yxUKZxMUUTD 0wPYXjYUJftJ4RPTJWRAWWG RPmfJXYUC9gJMnNNUgVdN0S VThpuSZNsdHXqJYptVYR7z1 xydGYxXHNzdGUxODAwMFxhb nNpXGRlZmxhbmcxMDMzXGZ0 bmJqXHVjMVxkZWZmMHtcZm9 npXSdxQktRpSrBSLce9paiz EDgqnafZx3n7toFMTrZnW2a JWwEQamZ3utzzZviNLaFNKw NFm8sB80CHKmjP5puWDsILx iqjSeTjO4EWzlZSWkGrF9LB XqiMJpTZOkU9kkFOJoAWktD GIhVCunoQCbVRB7dZkst3T8 bGVzaGVldHtcZjBcZnMyMiB Rs6UjXZp8kFwxR2YrLCSrAh I9yHRrUEBmYYdwPPKqRMRlg vZ8hD33ASyahrA9pVVud3Ii d47sb861xP3dyNXsPDR5POW hDHXqsTDzZOMyYLP2CILjtE WgN5eyMNCwGK2pqvhrQDmnZ SolRDTlbLW8QHTkePBuC0Cl FHYcKWfaSLPdioa1EiKeGp0 kaLOgcCguIOrek8hwq4yhhX XjSpa2LTUwVjEgRfjfFHmjo 2Oxf1vnCPPmer7qRKG1pXOp fVpxl1T0wWOpLNRftHCdWPD bZG6rnENeUCZmgY8cjzgzLD BnYnJkcmhlYWRccGdicmRyZ o6xnFscNAY5OLauH9rjuN2w JpD2PJugG1gzvJ1sDJq9CDj gXNNooVI0lhO0LNBeyXZoT6 WznM8pNHXeHU6oyfc6j8mpC QA4IAaoWTQoWwV9ulK3BUIo bEKsIDYhlLbsKQiye985RZC 1ImCqHOIxm7YlR8UikEymW3 9prYlzZ21pYAClhRbroZ7fl HjpkW7qYjQyVxJnNBuixZkq MF2cAJOwO1xlnMQcGARjDMV eS3pvLjZwuQ8tfAslCQskad HoVTEnBdi8BWWckZZgFSLtV cf0UIBtQOGmG49shqogHDR7 mE3ny3xyy3JdXNcfIHI8CWX kq38bWUbmjoU7XRbpZw69XR scBYE1VBndCMG1hA== CPT Code(s) (test code n0zrnZNkTEForDE0WqQlACE = 3357) zw3azh8UqgNMkhFGwAUazmW FnicBqvf60eTN6qL70FJ7wB OEtHhQ0YUGamcB5Zxt2PFEw SQXemECaQ388j7ykk3iobvS dlRT0wTplTSBvbefuNnI5CB slASInjfpuBWf3YMmbJTNoc UH9GIDjlRKxL4PtVFIcBK3g hwu1EAR5PYaaXCKnRsZ2PUK wgPFeQSSvnEkzLApwx805ML Z2KcZeASZgnsXsnRknzI2eQ dHdCTT3FWRsQagbKVT3 CLINICAL HISTORY (test p5aydIHcWCMlmFZ5EfLbRBD code = 3356) vc5iyp8NqeJOiwKMcXAbgaP BaecUavk40jWB5iT42ZV5zV ZCkMeZ3UKAecpI9Akz1PHGq BVVmkGHgW369u2eqt2mpgbG zvCS4rLhpODQjfrvdJpD9AN oqGZHezovgMGy6KHyrIVSle GA3BYCkfTIjX5OrIQVuKI5k cnk6UOI2ZNbmPKQiQcS6NLR vhLRcHLVepWjrKZsom513XW N9SnZmNAMrbtPyjCsieZ5hF nMyMCBVbWJpbGljYWwgYWJk w37iolFnXSutfz6wJNduOFO 9 GROSS DESCRIPTION g5gczMZeEQCmmXGZLRNpM2h (test code = hyzQiLVFgwHOsQ6TytamsMY [id number]) syAI4xCV8wlPzueJFezKCxE X5KZLXtLoMvEWRokXHbcgFy CmNkHFSxbKBiiMA6IHJmLU3 mwbnjPTtvQPzwYYCuirK1VV EiuNZhF6LbICGwOX6etrgeX JL3PEmutD6nomVHIqbeSx8y dHRibHtcZjFcZmNoYXJzZXQ lTCCnpYvkXGTkSAp4qO2OUe nbPZI5DZYEJutuCJIuAI8Qr 8amZUOziOQxGSE6OTrhoRCa KWFgQAYjLWo5SKTeYVbsbTA gVY1gdQdsViebzBlhm0SkoZ BcXGlkIDUxMDAyIFxcZGIgI Z5SClJaHCZ1GCq5PHMoYHj8 WAq7KR6ZAaGtVYAiWAFoJow 5PWAzQEl5LKwmPH2VWEN6FR V2Zru2VTY0QBZuKzJcFUSgP iBcXGYgQXJpYWwgXFxmbCBc NU8yzFxuzIXluaFOMgTJPFZ uaWEuXHBhciANClxlcGljTm VzdERvYzEgDQpcbHRycGFyX GxpbjBccmluMCANClxsdHJj kJhmodAxQLDbE4SfupGvQIA wYRPiPLcbAeCtCMZho4a3jW X8pIQjxNU3qFWzdMzvXlTuQ Z8lqDRlCA3mPEqvMSzuosJp r3YxLV06gIRnaoGkvbVaXmw iyt8eLGYslROfGYP9JzakdD AjNpHqT40hdT6hneochaWiS OY9YG4ja2bqqdTtfCmkrEJe KSC8O1hkUPUkdH5vKIUgMLU 6xSHeLjPeOjZuF10yEOTLdX OkBPRvCCOdqJmiGETqh1BlU JuxVJEnFJ9bLTrtMN39AWes IF4pSPOlHQVewiRsNWtbaIQ ha5NqyTRnHB8eay4qedDfzv IdiIA8hQH6SYtwCCPhNKYzk UVbgp9oDKTnVPNflL7iCAK9 BR9rqdbiod0sVPMoGDHmgTw ciN0uQRCrQTCcc3ziWVqpWC XfSd71PDylHa2vZLofRY00O BJnCGPhA6S5qPYwRPPjhjFl y53vf2ObxRjere7qVEOnPuv iye0bOI7cvnWbp8IrZZDwu4 F6AJ3bSCTcMQCllPOqEMkwN RCfzokweMd1SWSwZ8Fgb67j ZCBhbmQgYSByZXByZXNlbnR obEi1GOZzXNQ1qD8lTY2aXH JxQPJslvKbkDW6rYBoSHLbI LAjlLfyuxpsRpalip7jCH3s zsDqk2GtGODej6P5MHEtwdO fmUBhqVW1CIWbjT8nDOKcPG jelzMxQTwrycBdW0runQPzK JMKpnY0qkwrIPlJSUBUUOUg VRARRVlahG6RTHOeIGqeBMM fjUVKJIU2RU8lWVbpyEJekr ukCPDoE7TvI6WkiaLdlMAmH VXprtMtt5uhKKY7TMKmaJLd iZKpMyWgYjreFLO5OFhvp0l wNDW1YUYpdGGwlVLwCCpdNb KuYitlYMBsW0SsV0NvrbM9Q Qp9 MICROSCOPIC f0swgEImAICxwYQ4MmOkHPD DESCRIPTION (test code hw8nkt3FslGTjvXGjYEiqmI = 3371) HsmhGrtn20bDL9zB21JH8lU DVmHvM8WYHisuH5Uvb8VMLo CGMpeCKuN072j4ktx9jidbX arKO8qJowMYHwehpcGvU8YC hxEKVzimbqGPe0IQluXNWuv HA4GXJqzLQoW0ExLVXoJA3d phg0SWD4TUcbAEMlZeX7QEC rvIAwYLYtoXkwOFfhh382UD A8KxRcFAUaozFrsQeldM1qF iIgSNGRODYhs6EzBCCvZMuj YXJ9 Gross assessment was [facility] performed at ([facility], code = 2777) Department of Pathology, [address] [place] [id number], Technical component [facility] was performed at ([facility], code = 2778) Department of Pathology, [address] [place] [address] [phone], Professional component [facility] was performed at ([facility], code = 2779) Department of Pathology, [address] [place] [address], [id number] 19:09:30 Test Item Value Reference Range Interpretation Comments Case Report (test code Surgical Pathology = 104) Report Case: [id number] Authorizing Provider: Milena Swartz MD Collected: 02/13/2022 08:26 AM Ordering Location: [facility] PERIOPERATIVE Received: 02/13/2022 09:18 AM SERVICES Pathologist: Annita Brower MD Specimen: Hernia, Hernia Sac DIAGNOSIS (test code = [id number] 3220) uZzEwMzNcZnRuYmpcdWMxIH tccnRmMVxlcGljOTYwMlxhb nIfTSJevNGuD4HmplfyDOfq PE1rDL9hsEmgbGUdkDMoHZH rQbSrt1fvg631wDAtw7dcSP WMnpfpiCk1jAycM92aa8F7R rxeG72hgEXzLRN1JBHdRHEt aQFaLRIoBXF1QTWjkLYhO4z kNTYpUZ4evgleNSkfAFtnKX XzaDU8XSIagFOtI1DoMQLjD WpeNGIrpwg5RbGoPr7nnRXl eTcyMFxwYXJkXHBsYWluXGZ bSmAyG5nMAaZJYvXpZ28JGV PXXQQZSWFxXVMCIQ6HCP6sO KjZCx1WM7LLIMOKFJuidMBj XGxpNzIwXGxpbjcyMCAtIEZ IMcELFsDEX2YTGMPzDEyWD9 WIGGQKZ2HONZvhXRlYQYTbJ kazUyCDUHuUYP1CM42BJWKM YLYWRWVECJwROGZIL98KGYY ERM5ZGMLvmjNiBCiTKWabGK WKEpoHNNOWD7lrEWXrMXHWH 3cRTZiWMOuwN8SEVELZGMYY TIwmFUOFK1mJSfEVHePpD7R IEsfoHFTedODbMIagSGK0w3 xydGYxXHNzdGUxODAwMFxhb nNpXGRlZmxhbmcxMDMzXGZ0 bmJqXHVjMVxkZWZmMHtcZm9 mdTSwlPkvBzVmMUVij8zvhf ZDzybjmEo5c2wlUUMjUxK6f KBbFEjdS1xwyfAjhYFxLOAc ZXn8bK55APWygO6miJOvAUn ktaUoImD3GZgwJFOcUnH5EQ DqnDGwWFHwS4rwITMmFLjjA WBzKUolbCWrHCR1hVpmf4F0 bGVzaGVldHtcZjBcZnMyMiB Db6ZfFPk2rKgbX6KbSAWcCe N6pAVgQEHdCCamZOVsIIHqs xK1mJ95NNyxihE0tUCcd6Ph w83cl049gZ2udRZkUHH5LAZ tJYHmsOWgAJEeIWR3DUHhoT IhW2heIVKwCK3fpcqzFUriC EdqSKWwhKO6ATZfwZWuU9In GMTvJUsuEOSqmsb8YjNzWm6 hjRUgsRsuQErvs7ejo8yhdZ HzTls4DINgLhPoAhgoBIuii 2Vwy7mcFCLnhi7qVUM2hHCd yHhet2F5xMVnESWraFMiFXW pMJ7rsOTxOPZwaA2zdeplWI BnYnJkcmhlYWRccGdicmRyZ q3hgRyyURP1CHjwE5anpG4t RaB6KCflJ1obfH6qKGu4ESk aNBGkoOJ9mpH6EICzlRFmN4 SxzW9tRWVhLN9ambk3m4veQ KL6SMfbILPiDiM1tkH3FEJs iFQgHAEgbThbUGsgu575SKD 1RgCsGCXui9HoM1MdzHhtV2 6blSfgZ14jSDQkgJyymA3gq RjumS4dNiCgLgGzUNjefKdu JK7xAXXyH2bdmKLnZHKbQWC bY5tcAsRbuU2rwSkwJHuccz XxHQFqLnj3LLMulZFmRASiJ hx0RSYaBWWmD12jpstfFTB9 bE2ez9wez2HtAPfxWHF6ZEU ri13eGQwrzwK8ARtcLk11RH qiAAF6ZKpgLKH9kI== CPT Code(s) (test code q3vgrBXcIDHntAU7AsMkNWV = 3357) qx0ckz6KorTSdeISpKEjdoN VqcfXuoh11pYF0eB55ZB2qE BFfTpN1MMJmbeA0Klr9NSEl CGPjwILdI018a4zju9ihrdU dcSD6yGawDTKbyqjyDsG1EE xmIWNtwpypBOg6KPbiDHGwn QS1SXPziWXfD8CnWUOaXY7r ztd9CAR6GDxzWFPjNjN1ISH qcUZmULXyqQhzINjxv266GO X1QfMvDOWxqhHlqJwvjJ6qM kCzDWO1WTLhJmdoHMW9 CLINICAL HISTORY (test b2ceaDXqNPCdlOT7QrRmICI code = 3356) mn2xws5YfdFMfxRNzMXbnuS QqtxJtzh07kWK1jW73YB6wI OZoAjE4IYEilaH3Iji6QSGs YAFfrSOzW342w4oxu5ugglH qkAN0jMzlCUWtqmdgFhX9ZF bwCDZorpezHFb0DUlaWRHst PY4MYOqjBOoC3IoLHBbPE7d ebc9IEE0OHylQRKgIeT7MJO uyDAsHNDnoTcyVJvja317QN V0XlEeNTRszvLkyDkknR7aR nMyMCBVbWJpbGljYWwgYWJk x76hjnBqKZnzdy0vCMnpFSH 9 GROSS DESCRIPTION a6doeBRnGLRjyJYFNQUpV4x (test code = nksLqBTYkzIEjD7QjjhkkXW [id number]) nlUG5kCW0wiZkxjONxbOMoH Y8OJSYeWjIrXGGkuJXqplEr XyEtZKBpyJTwpMG3MHAxHM9 hqtjdJYtpXIchMZDsleB4GK JyqNJxD3AqRBOfHE5lajraF CO4MLkyiZ7crnBKYoaxEs0w dHRibHtcZjFcZmNoYXJzZXQ xXSCusTqdGCEcJOc8kJ5RBd ekRUE8FNQPGfveRMHwPC2Gx 8gzRBMpzNLrJAK0JAsliJAi ABZxMIIqJVj5SYHzNEzkhTV sKM6wdGunNtrwqFwqt1MxcR BcXGlkIDUxMDAyIFxcZGIgI K5JHzMdIOA4PZf2WUNxHDh1 ODy4NM2KJfWgIPHpXNLwRse 9JSJaFPj0PKozGS6FPHG5EE W2Bin5BVT1IZKtWtXaWXUsR iBcXGYgQXJpYWwgXFxmbCBc NI8wvHalcKZgcjHNWgVKUNO uaWEuXHBhciANClxlcGljTm VzdERvYzEgDQpcbHRycGFyX GxpbjBccmluMCANClxsdHJj qJbmjyRnIACgD4GwqxGvGHL jUHNcVWsxIoWoWQDac7w5eD F8tRXwfFY3mSFnbIlaWkUxY C7czYGmJX4sLAolZLoaubAe z5OcWZ33tPBsvcKkmqKbLtu wci8iTJIpnLSvAPA8OewivA SeMiEgG99thG1soctmszVvT NY5OH0rv1qxltJbhIcnbLOa QBH6V7eoHHSkyF5gYACtPGT 8uFPhErRyIqSaC33hAPWGzO QgPLZpQYVupEleCBXfc9UdF YgtENTrXF7sFBpgVR40XSqp JR4dZAOiWIUlazPvGJkavTG bq8FgjDMaFT9gzd1hmuUoiw MuaRI5yLJ3AEuhWZSsWDAvx NGvfk9kEKCmLVMotO3yCNP7 UB0xmlnrev0fRFFqCHPrzYh pfY5pWBXuOISqx0xpJDgeHT VzSn02QWwhGt8iTDorRQ81I DWkESKhX1H4xFOeWFTehnIa o14gf6MgaOpfmz6oVTXnIxu pcg4dJD9dvsVdz6RuWRThd2 D0XP5wKHZrGNNcoMDqDRxyC UFyhkmjeYp1OHOwS1Dcn55v ZCBhbmQgYSByZXByZXNlbnR ppHn9FLLiSRV8cX2vAK6lET LdOIQcitKsqNQ9bFVcVIVpJ OZxqAkavizjGdxuoz2nDR4n ivNfu1KtXOQvl7J1PQQfojH isOPzxKE7DRZliQ6gOMWtDW vsnoDnQQkfqiEvH6xaoDQkM UAIcgK8zwdvSUlPIVKUUGIc MGQGMChmxE2OHZMmCVzsAXP jzQSQAQJ1FF8rDEvgqLPhxn eaWKSiZ4AmH7HupaNhaOAsO DVsobVlj2rfOAO8ZBExtOQy lBQmRmUqRhfiCDK2WSgyb8n cZAX6USNuqJAspOIwTWsfIh NzTwmoDBVaS9OqW1PjztH3O Qp9 MICROSCOPIC c7zydOMwJPSnlMU4OqUeNVV DESCRIPTION (test code hp3pfj8QbjBJtgUBdDEmarI = 3371) IsfyIaoc57uML9oZ68MI5zB QQgRjX4EUSbkyS0Zoy6UPGy APScpCWrJ045b5cbh2xugbV lyJL1qRfqSVRdtdwkQtE3WP skHYXsmujuOGa3FGptTIGec BY2FZOoyRDqC6PsHODvJQ8r zaf0ISB2KNegVWNsHkK0AZE iiWWhCLImcLgrTQbfa089DF B8OwPlKYLyuaJhxKmgzI0aH lSdUVLHTXAsh0WgCEQuDSlf YXJ9 Gross assessment was [facility] performed at ([facility], code = 2777) Department of Pathology, [address] [place] [address], Technical component [facility] was performed at ([facility], code = 2778) Department of Pathology, [address] [place] [address], Professional component [facility] was performed at ([facility], code = 2779) Department of Pathology, [address] [place] [address], [facility] [id number] 19:09:30 Test Item Value Reference Range Interpretation Comments Case Report (test code Surgical Pathology = 104) Report Case: [id number] Authorizing Provider: Milena Swartz MD Collected: 02/13/2022 08:26 AM Ordering Location: [facility] PERIOPERATIVE Received: 02/13/2022 09:18 AM SERVICES Pathologist: Annita Brower MD Specimen: Hernia, Hernia Sac DIAGNOSIS (test code = y2lwcOXaOHOiq1ukPQGwgMW 3220) uZzEwMzNcZnRuYmpcdWMxIH tccnRmMVxlcGljOTYwMlxhb sJvQTZeoGEgP2SefmasNZph CE4pSM6ujHjjnEYtbOFdGEY eMfCxa7fsr047lAHou0siAM SSlpjslRc1xDpaO66ru7X5X krmO70gjDHkQPH0RMHqSEFj aFWzQVRbYUT8TCMhpCGeF8g oXXVcGV5xqpovOUczEQtkTC YrzKS7USYdsAZaF1CfZGFhQ EmcQJVqagr3FvQsSb9zcARs eTcyMFxwYXJkXHBsYWluXGZ tIwDyO2zGAuPKDyCvV41BJB GEOCPUKRLiFBVAWE6DOE2oE BbBNn2FV1HOJEGTRVbxhBSv XGxpNzIwXGxpbjcyMCAtIEZ EMlBNIfYXU3WGZMBfQOxRO3 JSFJXWS3DNWNmpOAlQKWMnM ukgYyQSFSoJQF1AR64CRLGU JQWIVYJNEKtLXJSLZ88SDZA FMW7ZOVDwnmOmYAvRWYzhCX IUBaiGPYQXB0gcYWQzEULXL 2eJZByFAOqaS9FCUGFLWRAN GJrvOHCKP0eHTkHSTkMoI2B UYefjHEJlrQGnXTsfWUQ8a8 xydGYxXHNzdGUxODAwMFxhb nNpXGRlZmxhbmcxMDMzXGZ0 bmJqXHVjMVxkZWZmMHtcZm9 jtATmrWxbMvZwMXMah1ihwn KKprbugVd9q7bnMFDiKzP7v NEuMYrvJ7ivjsCixUAxRFWi OHz9kN15XSGssS4myHNbLGh pbuSdUpT5KPvaEWKzVaP4AO WjyZBoRCUlJ9pvTXMnLUyiZ ZEiYVzcxYSdLRR6pPeme0H7 bGVzaGVldHtcZjBcZnMyMiB Tn1MbOPb3jXjlF1FcIWPzPo Z3kRRpHQCoCOtxFXSqOODng pD8bV92RFbdmmM3sHLsx5Ue n19ht851nS3byXPfVHE9NDI jVEXzpPTyZTTwLOH0IVLngI RyC4vbCPYhTN8yjdllPQruV WmrQPOqtVA4LMKyyGHgX7Js KEDbQOecWDIcmwo3YzFjFf7 ugMRzaYjwHWkhz8ygt9nniQ PbUtc9CAZcVbUqQuggBFvmi 1Swy7liHERuez0yHMJ0hSYf kDquv1C4zFAxBXGtfQAqKVZ jZU5cjCYuFIXstD5zfkjqDL BnYnJkcmhlYWRccGdicmRyZ m9jxCmjQRU3NUbwG6smhS8u VlZ9FBwpI6zcmX3fBYm9PQe fSRPfqWS0gzC7HJWiyMPtB7 QmjV6rGIWvAD3myxm4e6uuF BY0DOvcNVZcCuC7uvA6QWFv eGGvXKQmmCghCVzyn837OSC 8AqBuWXQnm9MyF6VguMmzH1 2pqWfjW78nUBKrvHmiuV1sy GhesC9xEmKzKiZhYFibnWlw QR5rNQVkG7oumXZwDZHpREV vL7owBjCljM8pnAovNFqmrt BiPGRcYwf1LGIwpCCgFNVfT uw4EHZoFBPoM01qvhwjWVN7 iQ4sz0myl3LnPTbqFGP8DAX nt48pZVkrfbE2HTkzUt42LV cpGLL3RAodIXH8lF== CPT Code(s) (test code e8hejJRpCLMcfEH6QeIhXQQ = 3357) fi6ybe6JwyEXsuJKvGZnynJ EelwOrjp34wDO1sS29MC4mU IBnGcA4CDNrprZ6Vcc2ZGKr QFUgpISaQ938g3ems2filaJ vrIR6lVskQALdeuegCaA0GH fbDVShxramBEx3BBslSFYvy EL7UAYcgQOlH2GhRWXtHG9y kwk4XSC4JZdjMCRjUnZ8JIQ ndNQvNVHshWanKTycq056TW G9TeLtHDFnnkJouKndkP7cE jYzGXF6PNAiZbubSZS8 CLINICAL HISTORY (test b2yjaARqFCDlwKB1SaSnCTD code = 3356) lp5mve6LgrWPypUHeMNxejW TbjmNnlq50xGB7kE22VY0aF UNfDcA2QVEdquI8Zzz5JUBs ZRKeiGBpK336j4upv0ostnK vfRX3vWjsMFKkdfrpUwZ5WS inKIAfgykeBRy5UEfcMNRyq VD2ZPMzzQZtY1IqVBOaBB2l jiu4AMH5SNdlBKZyKoK2PGG pgNZkTVTeyWwdXItvu903JC E4RaOeXEIybsRacAkyyS8bF nMyMCBVbWJpbGljYWwgYWJk y33oadOpXKpgut0zHOmkFZI 9 GROSS DESCRIPTION y2oahIYyQLKcaQXKDUMoY7d (test code = gysWrOSLwyZDbW3TxtluaWQ [id number]) umVE7fST3cuBjptWCqfZHgX A6YIRXoXyDuRRIrzYMitvZt AsQePGRjtKKrrOT3CSXuUO3 vmefyFNuaBWurIJCyohK9JV RsjVQiZ7EwFIHpAP0mvgdtF LZ0VXlqnE5dxpRIPzwlBl7a dHRibHtcZjFcZmNoYXJzZXQ mRTCnpByzLYAhARb1rE5CUy wmUBW8HVDFCmsjOBXgYW6Dv 3ulDSFqjWVyCTT7WSimrLEd RWUbGWLcADg6EKAmSVzetAD lUA0uqSgtCeaulSmfp5FnwX BcXGlkIDUxMDAyIFxcZGIgI S4LQvSqVQW5HYu6SLQzWIq1 KXt9IZ9WKtGgSWAqVQUmAgw 5MTIhIIa1MGwrQB2GTWL0UD V4Gbl4UUB4IHDoDjGvQBEvY iBcXGYgQXJpYWwgXFxmbCBc YS6bcYdkiALdwnEZYvDIHJQ uaWEuXHBhciANClxlcGljTm VzdERvYzEgDQpcbHRycGFyX GxpbjBccmluMCANClxsdHJj cIuppqKwIICjB8HyedWtYFW wVAUuYFuqJuHoZOKvg4d6yE L0xJNphEW8zVRbpLplFnPnU H1tbVOnMW6kEKltTXazdpSu w1TdPP57tHPpdnWtfeMvAxw cnn3lCHIiqBAsKBI7SzoowO OvVtKsF01xyL2qnjqkpdJzY FM2IF9sd4npjoVbeEmeuILa ZZT5E5ltAWKlaB6rDOUoYSQ 4uXHsPtXdUqAxG04vFYKXcZ OpANPbQTRiqQxqSBPrh6TwE BtaODPvDZ5lSUwmUN79NIqa YI8lNAYgBLZvqjXbCVbmhKM yx0BltGKjAW4ktg4wzaRzkl UviDI7vLE4LQbtEYRgCUQby JQvpe7hPMCtQUBbiA0mBPG8 XR1xxtdgge7sBALkRPRxeEe tfP1uIVYdIMJoj0dlWAfhMO ZkIt44RKevRs2pGDvoOW45U UYxXEMoG2B9wBYzGIQnbrJe l71vc3NthNcybf8pUXScLyr pyo5mOU1sqbLmn2CyUOUex0 D4ML3oCHFwKVFnrKZkQXqmC LLgtkyafRr0NJIrF9Rgu08t ZCBhbmQgYSByZXByZXNlbnR hdBe0KXMfGJS1cG6fKR4uRV YfKYDanoJyuVN4jMOhHWNyH UEdqIktjeqaTsttna4bRI3d ivLiy8EsKMQja1B1TDUgmfE jyDHftEK8JLHbsY6nSJUbTB cskoCuRQjlpdYqF2opmQVjV RJXrjT1hyphCPrMIRVAWTGb GFGYXBpmcT6YTCDeWPuuWZP njRQBGOD7KV2fIOwxeZBldy ifDBElG1AcL3HwfsJabNVpA BYlqwYkz2ejYYE4KSYqqYBx hFHaLiBhEccrZGA4ULjwq7m bNVH3BLIftPZgrICoTFkpLg TtPqvjHDPtW3RuQ7JnckU2R Qp9 MICROSCOPIC j4esdUHnXXBkwUS8ZcLqVVX DESCRIPTION (test code zo3qbs0LxxQFejQRmROmwxI = 3371) JdsvRrjz68lPM2qS21IZ2lV ZFcQcJ5FUZhhdJ9Oxy1WHFe KSMuuRWlF299p0ouf0fqiyV jdPU8xObkKBWdgexjTsY6OV xjJPKnwufpBYf3QVabXYUrj ZO7USEgaZWtZ3HhJTOpUW6k heh9TNS0KUyiYMAqOtV4ZEM moMGiOKDnrOvxTHnjl654UY H8KnNkAXJxclUsgPaktS6nJ eSzWTQSFGCvc8JcMVXrJUho YXJ9 Gross assessment was [facility] performed at ([facility], code = 2777) Department of Pathology, [address] [place] [address], Technical component [facility] was performed at ([facility], code = 2778) Department of Pathology, [address] [place] [address], Professional component [facility] [place] was performed at ([facility], code = 2779) Department of Pathology, [address] [place] [address], [facility] [id number] 19:09:30Surgical Pathology Report Case: [id number] Authorizing Provider: Milena Swartz MD Collected: 02/13/2022 08:26 AM Ordering Location: [facility] PERIOPERATIVE Received: 02/13/2022 09:18 AM SERVICES Pathologist: Annita Brower MD Specimen: Hernia, Hernia Sac SKIN AND SOFT TISSUE, ABDOMEN, HERNIORRHAPHY- FIBROVASCULAR TISSUE FOCALLY LINED BY BENIGN MESOTHELIAL CELLS, CONSISTENT WITH HERNIA SAC- SKIN WITH SUPERFICIAL EROSION AND SCAR Signing Pathologist Direct Phone Line: [phone] signed by Annita Brower MD on 02/14/2022 at 7:09 [id number] abdominal herniaA. Hernia.Received fresh labeled with the [...] tissue. Specimen is serially sectioned and a unit support representative section of the crest with underlying fibromembranous tissue is submitted in A1.BREE Malone, KAREN (ASCP)cmPerformed. [facility], Department of [facility]ology, [address] [place] [address], [facility], Department of [facility]ology, [address] [place] [address], [facility]vxcH[facility], Department of Pathology, [address] [place] [address], [facility] [id number] 15:01:18 Test Item Value Reference Range Interpretation Comments CULTURE (BEAKER) (test No growth in 5 days code = 1095) BLOOD [id number] 15:01:18 Test Item Value Reference Range Interpretation Comments CULTURE (BEAKER) (test No growth in 5 days code = 1095) PROTHROMBIN TIME/[id number] 12:19:24 Test Item Value Reference Range Interpretation Comments PROTIME (BEAKER) 18.5 seconds 11.9-14.2 H (test code = 759) INR (BEAKER) (test 1.57 See_Comment [Automat ed message] code = 370) The system [employer] generated this result transmitted ref erence range: <=5.90. The reference range was not used to int erpret this result as normal/abnormal . RECOMMENDED COUMADIN/WARFARIN INR THERAPY RANGESSTANDARD DOSE: 2.0 - 3.0 Includes: PROPHYLAXIS for venous thrombosis, systemic embolization; TREATMENT for venous thrombosis and/or pulmonary embolus.HIGH RISK: Target INR is 2.5-3.5 for patients with mechanical heart valves.BASIC METABOLIC [id number] 07:20:14 Test Item Value Reference Range Interpretation [...] 1092) DATA TO CALCULA TE ESTIMATED GFR. Agriculture Engineer IRA NIEVES WHEPATIC FUNCTION [id number] 07:15:22 Test Item Value Reference Range Interpretation [...] (test code = 8 U/L 6-55 347) Agriculture Engineer IRA NIEVES WCBC W/PLT COUNT & AUTO [id number] 05:36:43 Test Item Value Reference Range Interpretation [...] (BEAKER) (test code = 2801) MISCELLANEOUS LAB [id number] 15:43:46 Test Item Value Reference Range Interpretation Comments SCAN RESULT (test code = See scanned report [id number]) See scanned upgqyfEsixvtak1765-02-34 11:00:24 Test Item Value Reference Range Interpretation Comments Cytology (test code = See Separate Report 2629) [facility]:00:24 Test Item Value Reference Range Interpretation Comments Cytology (test code = See Separate Report 2629) [facility] 11:00:24 Test Item Value Reference Range Interpretation Comments Cytology (test code = See Separate Report 2629) [facility] [id number] 11:00:24 Test Item Value Reference Range Interpretation Comments CYTOLOGY RESULT POINTER See Separate Report (BEAKER) (test code = 2629) HEPATITIS B SURFACE [id number] 07:12:32 Test Item Value Reference Range Interpretation Comments HEPATITIS B SURFACE ANTIBODY < mIU/mL <8.0 (BEAKER) (test code = 647) Agriculture Engineer ID - RIGOBERTO LBASIC METABOLIC [id number] 06:43:07 Test Item Value Reference Range Interpretation [...] 1092) DATA TO CALCULA TE ESTIMATED GFR. Agriculture Engineer ID - PIBRAXTON LHEPATIC FUNCTION [id number] 06:36:45 Test Item Value Reference Range Interpretation [...] (test code = 11 U/L 6-55 347) Agriculture Engineer ID - RIGOBERTO [id number] 06:36:44 Test Item Value Reference Range Interpretation Comments MAGNESIUM (BEAKER) (test code = 2.0 mg/dL 1.6-2.6 627) Agriculture Engineer ID - RIGOBERTO LPROTHROMBIN TIME/[id number] 06:30:02 Test Item Value Reference Range Interpretation Comments PROTIME (BEAKER) 19.0 seconds 11.9-14.2 H (test code = 759) INR (BEAKER) (test 1.62 See_Comment [Automat ed message] code = 370) The system [employer] generated this result transmitted ref erence range: <=5.90. The reference range was not used to int erpret this result as normal/abnormal . RECOMMENDED COUMADIN/WARFARIN INR THERAPY RANGESSTANDARD DOSE: 2.0 - 3.0 Includes: PROPHYLAXIS for venous thrombosis, systemic embolization; TREATMENT for venous thrombosis and/or pulmonary embolus.HIGH RISK: Target INR is 2.5-3.5 for patients with mechanical heart valves.[id number] 04:53:41 Test Item Value Reference Range Interpretation Comments PARTIAL THROMBOPLASTIN TIME 43.5 seconds 22.5-36.0 H (BEAKER) (test code = 760) PROTHROMBIN TIME/[id number] 04:52:58 Test Item Value Reference Range Interpretation Comments PROTIME (BEAKER) 18.7 seconds 11.9-14.2 H (test code = 759) INR (BEAKER) (test 1.59 See_Comment [Automat ed message] code = 370) The system [employer] generated this result transmitted ref erence range: <=5.90. The reference range was not used to int erpret this result as normal/abnormal . RECOMMENDED COUMADIN/WARFARIN INR THERAPY RANGESSTANDARD DOSE: 2.0 - 3.0 Includes: PROPHYLAXIS for venous thrombosis, systemic embolization; TREATMENT for venous thrombosis and/or pulmonary embolus.HIGH RISK: Target INR is 2.5-3.5 for patients with mechanical heart valves.CBC W/PLT COUNT & AUTO [id number] 04:09:00 Test Item Value Reference Range Interpretation [...] = 2801) BODY FLUID CULTURE + GRAM [id number] 16:28:40 Test Item Value Reference Range Interpretation Comments CULTURE (BEAKER) (test code = 1095) No growth BASIC METABOLIC [id number] 06:42:07 Test Item Value Reference Range Interpretation [...] 1092) DATA TO CALCULA TE ESTIMATED GFR. Agriculture Engineer ID - RIGOBERTO [id number] 04:33:17 Test Item Value Reference Range Interpretation Comments MAGNESIUM (BEAKER) (test code = 1.7 mg/dL 1.6-2.6 627) Agriculture Engineer ID - RIGOBERTO LHEPATIC FUNCTION [id number] 04:33:17 Test Item Value Reference Range Interpretation [...] (test code = 13 U/L 6-55 347) Agriculture Engineer ID - RIGOBERTO LPROTHROMBIN TIME/[id number] 04:11:48 Test Item Value Reference Range Interpretation Comments PROTIME (BEAKER) 18.3 seconds 11.9-14.2 H (test code = 759) INR (BEAKER) (test 1.55 See_Comment [Automat ed message] code = 370) The system [employer] generated this result transmitted ref erence range: <=5.90. The reference range was not used to int erpret this result as normal/abnormal . RECOMMENDED COUMADIN/WARFARIN INR THERAPY RANGESSTANDARD DOSE: 2.0 - 3.0 Includes: PROPHYLAXIS for venous thrombosis, systemic embolization; TREATMENT for venous thrombosis and/or pulmonary embolus.HIGH RISK: Target INR is 2.5-3.5 for patients with mechanical heart valves.CBC W/PLT COUNT & AUTO [id number] 03:48:24 Test Item Value Reference Range Interpretation [...] (BEAKER) (test code = 2801) BASIC METABOLIC [id number] 05:46:16 Test Item Value Reference Range Interpretation [...] 1092) DATA TO CALCULA TE ESTIMATED GFR. Agriculture Engineer ID - BELLA [id number] 05:44:21 Test Item Value Reference Range Interpretation Comments MAGNESIUM (BEAKER) (test code = 1.9 mg/dL 1.6-2.6 627) Agriculture Engineer ID - BELLA GHEPATIC FUNCTION [id number] 05:44:21 Test Item Value Reference Range Interpretation [...] (test code = 16 U/L 6-55 347) Agriculture Engineer ID - BELLA GPROTHROMBIN TIME/[id number] 05:30:37 Test Item Value Reference Range Interpretation Comments PROTIME (BEAKER) 17.2 seconds 11.9-14.2 H (test code = 759) INR (BEAKER) (test 1.43 See_Comment [Automat ed message] code = 370) The system [employer] generated this result transmitted ref erence range: <=5.90. The reference range was not used to int erpret this result as normal/abnormal . RECOMMENDED COUMADIN/WARFARIN INR THERAPY RANGESSTANDARD DOSE: 2.0 - 3.0 Includes: PROPHYLAXIS for venous thrombosis, systemic embolization; TREATMENT for venous thrombosis and/or pulmonary embolus.HIGH RISK: Target INR is 2.5-3.5 for patients with mechanical heart valves.CBC W/PLT COUNT & AUTO [id number] 05:20:54 Test Item Value Reference Range Interpretation [...] PERCENT (BEAKER) (test code = 2801) U/S, [id number] 18:04:00NAGA HURT MDLabs to be ordered:->Body Fluid Culture (w/Gram Stain, C\\T\\S)Labs to beordered:- >Glucose+LDH+ProteinLabs to be ordered:->Cell CountReason for exam:- >ABNORMAL LABCHI [facility] CENTERName: EDDI JONES : 1955 Sex: MFINAL REPORT Ultrasound guided paracentesis Clinical History: Ascites. Sedation:None. Vp Clinical Research: Allison Willoughby PA-C Supervising Physician: Jhon Mora MD Flight Dispatcher: None. Estimated Blood Loss: < 1 mL. [...] anesthesia was achieved with lidocaine, a 5 [place] Islander one-step catheter was advanced into the peritoneal cavity under ultrasound guidance. After completion of drainage, the catheter was removed. There was no evidence of complication. Impression:Successful ultrasound guided paracentesis. Signed: Jhon Mora Verified Date/Time: 02/10/2022 18:04:01 Reading Location: [facility] P006J Ultrasound Reading Room Lactate dehydrogenase (LDH), body [id number] 15:49:23 Test Item Value Reference Range Interpretation Comments LDH, Fluid (test 78 U/L code = 49848-2) ALLYN (test code = Absence of reference ALLYN) range indicates that normals have not been defined.Assay performance has not been validated for this type of specimen. Agriculture Engineer ID - [id number] [facility] HospitalLactate dehydrogenase (LDH), body [id number] 15:49:23 Test Item Value Reference Range Interpretation Comments LDH, Fluid (test 78 U/L code = 18870-1) ALLYN (test code = Absence of reference ALLYN) range indicates that normals have not been defined.Assay performance has not been validated for this type of specimen. Agriculture Engineer ID - [id number] [facility] HospitalLactate dehydrogenase (LDH), body [id number] 15:49:23 Test Item Value Reference Range Interpretation Comments LDH, Fluid (test 78 U/L code = 10204-4) ALLYN (test code = Absence of reference ALLYN) range indicates that normals have not been defined.Assay performance has not been validated for this type of specimen. Agriculture Engineer ID - [id number] [facility] HospitalLACTATE DEHYDROGENASE (LDH), BODY [id number] 15:49:23 Test Item Value Reference Range Interpretation Comments LACTATE DEHYDROGENASE FLUID (BEAKER) 78 U/L (test code = 634) Absence of reference range indicates that normals have not been defined.Assay performance has not been validated for this type of specimen.Agriculture Engineer ID - [id number], body [id number] 15:47:39 Test Item Value Reference Range Interpretation Comments Protein, Fluid (test 1.7 g/dL code = 2881-1) ALLYN (test code = Absence of reference ALLYN) range indicates that normals have not been defined.Assay performance has not been validated for this type of specimen. Agriculture Engineer ID - [id number] [facility] HospitalProtein, body [id number] 15:47:39 Test Item Value Reference Range Interpretation Comments Protein, Fluid (test 1.7 g/dL code = 2881-1) ALLYN (test code = Absence of reference ALLYN) range indicates that normals have not been defined.Assay performance has not been validated for this type of specimen. Agriculture Engineer ID - [id number] [facility] HospitalProtein, body [id number] 15:47:39 Test Item Value Reference Range Interpretation Comments Protein, Fluid (test 1.7 g/dL code = 2881-1) ALLYN (test code = Absence of reference ALLYN) range indicates that normals have not been defined.Assay performance has not been validated for this type of specimen. Agriculture Engineer ID - [id number] [facility] HospitalPROTEIN, BODY [id number] 15:47:39 Test Item Value Reference Range Interpretation Comments PROTEIN FLUID (BEAKER) (test code = 1.7 g/dL 579) Absence of reference range indicates that normals have not been defined.Assay performance has not been validated for this type of specimen.Agriculture Engineer ID - [id number], body [id number] 15:45:42 Test Item Value Reference Range Interpretation Comments Glucose, Body Fluid 120 mg/dL (test code = 2344-0) ALLYN (test code = Absence of reference ALLYN) range indicates that normals have not been defined.Assay performance has not been validated for this type of specimen. Agriculture Engineer ID - [id number] [facility] HospitalGlucose, body [id number] 15:45:42 Test Item Value Reference Range Interpretation Comments Glucose, Body Fluid 120 mg/dL (test code = 2344-0) ALLYN (test code = Absence of reference ALLYN) range indicates that normals have not been defined.Assay performance has not been validated for this type of specimen. Agriculture Engineer ID - [id number] [facility] HospitalGlucose, body [id number] 15:45:42 Test Item Value Reference Range Interpretation Comments Glucose, Body Fluid 120 mg/dL (test code = 2344-0) ALLYN (test code = Absence of reference ALLYN) range indicates that normals have not been defined.Assay performance has not been validated for this type of specimen. Agriculture Engineer ID - [id number] [facility] HospitalGLUCOSE, BODY [id number] 15:45:42 Test Item Value Reference Range Interpretation Comments GLUCOSE, BODY FLUID (BEAKER) (test 120 mg/dL code = 1528) Absence of reference range indicates that normals have not been defined.Assay performance has not been validated for this type of specimen.Agriculture Engineer ID - [id number] fluid cell count with enaimdxclkwk0868-72-20 14:03:37 Test Item Value Reference Range Interpretation Comments Appearance (test code = Clear Clear 9335-1) Color (test code = Yellow Colorless, Straw A 6824-7) RBCs (test code = 68 See_Comment H [Automate d message] 37183-0) The system [employer] generated this result transmit britta reference range : <=1 /cu mm. The reference range was not used to interpret this result as normal/abnormal . Adjusted WBC Count 16 See_Comment H [Automat ed message] (test code = 08144-9) The sy stem which generated this result transmit britat reference range : <=5 /cu mm. The reference range was not used to interpret this result as normal/abnormal . Lining Cells (test code 0 See_Comment [Au tomated message] = 82948-7) The system [employer] generated this result transmit britta reference range : <=1 /cu mm. The reference range was not used to interpret this result as normal/abnormal . % Segs (test code = 13 % 06926-1) % Lymphs (test code = 13 % 66105-5) % Monos (test code = 74 % 91176-4) % Eos (test code = 0 % 56451-5) % Baso (test code = 0 % 21998-8) Container Body Fluid EDTA Tube (test code = 2873) Lab Interpretation Abnormal (test code = 90540-1) [facility] HospitalBody fluid cell count with hivjhkvamtzv3006-18-62 14:03:37 Test Item Value Reference Range Interpretation Comments Appearance (test code = Clear Clear 9335-1) Color (test code = Yellow Colorless, Straw A 6824-7) RBCs (test code = 68 See_Comment H [Automate d message] 91076-8) The system [employer] generated this result transmit britta reference range : <=1 /cu mm. The reference range was not used to interpret this result as normal/abnormal . Adjusted WBC Count 16 See_Comment H [Automat ed message] (test code = 33388-6) The sy stem which generated this result transmit britta reference range : <=5 /cu mm. The reference range was not used to interpret this result as normal/abnormal . Lining Cells (test code 0 See_Comment [Au tomated message] = 60879-3) The system [employer] generated this result transmit britta reference range : <=1 /cu mm. The reference range was not used to interpret this result as normal/abnormal . % Segs (test code = 13 % 49554-3) % Lymphs (test code = 13 % 83106-4) % Monos (test code = 74 % 09712-0) % Eos (test code = 0 % 88739-9) % Baso (test code = 0 % 34699-0) Container Body Fluid EDTA Tube (test code = 2873) Lab Interpretation Abnormal (test code = 37901-7) [facility] [id number] 14:03:37 Test Item Value Reference Range Interpretation Comments Appearance (test code = Clear Clear 9335-1) Color (test code = Yellow Colorless, Straw A 6824-7) RBCs (test code = 68 See_Comment H [Automate d message] 32282-2) The system [employer] generated this result transmit britta reference range : <=1 /cu mm. The reference range was not used to interpret this result as normal/abnormal . Adjusted WBC Count 16 See_Comment H [Automat ed message] (test code = 91296-7) The sy stem which generated this result transmit britta reference range : <=5 /cu mm. The reference range was not used to interpret this result as normal/abnormal . Lining Cells (test code 0 See_Comment [Au tomated message] = 09280-8) The system [employer] generated this result transmit britta reference range : <=1 /cu mm. The reference range was not used to interpret this result as normal/abnormal . % Segs (test code = 13 % 33731-7) % Lymphs (test code = 13 % 89159-8) % Monos (test code = 74 % 52504-4) % Eos (test code = 0 % 57510-2) % Baso (test code = 0 % 74017-7) Container Body Fluid EDTA Tube (test code = 2873) Lab Interpretation Abnormal (test code = 32371-9) [facility] [id number] 14:03:37 Test Item Value Reference Range Interpretation [...] (test code = The sy stem which 8404) generated this result transmitted ref erence range: [...] EDTA Tube (BEAKER) (test code = 2873) OKSAR TITER AND [id number] 10:13:44 Test Item Value Reference Range Interpretation [...] UA (test Clear code = 5767-9) Specific Randolph, 1.018 1.001-1.035 UA (test code = 5811-5) pH, UA (test code 5.0 5.0-8.0 = 5803-2) Protein, UA (test Negative Negative code = 01897-9) Glucose, UA (test Negative Negative code = 365) Ketones, UA (test Negative Negative code = 2514-8) Bilirubin, UA Negative Negative (test code = 42870-3) Blood, UA (test Negative Negative code = 15854-8) Nitrite, UA (test Negative Negative code = 5802-4) Leukocytes, UA Negative Negative (test code = 5799-2) Urobilinogen, UA 0.2 mg/dL 0.2-1.0 (test code = 61192-8) RBC, UA (test 1 See_Comment [Automated me ssage] code = 07594-5) The system [facility] generated this result transmit britta reference range : /HPF. The refer ence range was not u sed to interpret th is result as normal/abnormal . WBC, UA (test 1 See_Comment [Automated me ssage] code = 5821-4) The system [facility] generated this result transmit britta reference range : /HPF. The refer ence range was not u sed to interpret th is result as normal/abnormal . Bacteria, UA None Seen (test code = 91083-1) Squam Epithel, UA <1 See_Comment [Automate d message] (test code = The system [facility] h [address]-5) generated this result transmit britta reference range : /HPF. The refer ence range was not u sed to interpret th is result as normal/abnormal . Crystals, Urine None Seen (test code = 99845-6) Specimen Source (test code = 2795) ALLYN (test code = Agriculture Engineer ID - ALLYN) [auto]Agriculture Engineer ID - tech [facility] Reflex to Culture 2022-02-10 09:31:30 Test Item Value Reference Range Interpretation Comments Color, UA (test Yellow code = 5778-6) Clarity, UA (test Clear code = 5767-9) Specific Randolph, 1.018 1.001-1.035 UA (test code = 5811-5) pH, UA (test code 5.0 5.0-8.0 = 5803-2) Protein, UA (test Negative Negative code = 81654-1) Glucose, UA (test Negative Negative code = 365) Ketones, UA (test Negative Negative code = 2514-8) Bilirubin, UA Negative Negative (test code = 96455-8) Blood, UA (test Negative Negative code = 75433-4) Nitrite, UA (test Negative Negative code = 5802-4) Leukocytes, UA Negative Negative (test code = 5799-2) Urobilinogen, UA 0.2 mg/dL 0.2-1.0 (test code = 64879-6) RBC, UA (test 1 See_Comment [Automated me ssage] code = 89301-8) The system [facility] generated this result transmit britta reference range : /HPF. The refer ence range was not u sed to interpret th is result as normal/abnormal . WBC, UA (test 1 See_Comment [Automated me ssage] code = 5821-4) The system [facility] generated this result transmit britta reference range : /HPF. The refer ence range was not u sed to interpret th is result as normal/abnormal . Bacteria, UA None Seen (test code = 20960-6) Squam Epithel, UA <1 See_Comment [Automate d message] (test code = The system [facility] h [address]-8) generated this result transmit britta reference range : /HPF. The refer ence range was not u sed to interpret th is result as normal/abnormal . Crystals, Urine None Seen (test code = 36337-5) Specimen Source (test code = 2795) ALLYN (test code = Agriculture Engineer ID - ALLYN) [auto]Agriculture Engineer ID - tech [facility] + Reflex to Culture 2022-02-10 09:31:30 Test Item Value Reference Range Interpretation Comments Color, UA (test Yellow code = 5778-6) Clarity, UA (test Clear code = 5767-9) Specific Randolph, 1.018 1.001-1.035 UA (test code = 5811-5) pH, UA (test code 5.0 5.0-8.0 = 5803-2) Protein, UA (test Negative Negative code = 69329-7) Glucose, UA (test Negative Negative code = 365) Ketones, UA (test Negative Negative code = 2514-8) Bilirubin, UA Negative Negative (test code = 44724-1) Blood, UA (test Negative Negative code = 58285-0) Nitrite, UA (test Negative Negative code = 5802-4) Leukocytes, UA Negative Negative (test code = 5799-2) Urobilinogen, UA 0.2 mg/dL 0.2-1.0 (test code = 31201-6) RBC, UA (test 1 See_Comment [Automated me ssage] code = 05575-4) The system [facility] generated this result transmit britta reference range : /HPF. The refer ence range was not u sed to interpret th is result as normal/abnormal . WBC, UA (test 1 See_Comment [Automated me ssage] code = 5821-4) The system [facility] generated this result transmit britta reference range : /HPF. The refer ence range was not u sed to interpret th is result as normal/abnormal . Bacteria, UA None Seen (test code = 33286-4) Squam Epithel, UA <1 See_Comment [Automate d message] (test code = The system [facility] h 07887-3) generated this result transmit britta reference range : /HPF. The refer ence range was not u sed to interpret th is result as normal/abnormal . Crystals, Urine None Seen (test code = 56171-9) Specimen Source (test code = 2795) ALLYN (test code = Agriculture Engineer ID - ALLYN) [auto]Agriculture Engineer ID - tech [facility]/ REFLEX URINE [id number] 09:31:30 Test Item Value Reference Range Interpretation [...] = 1521) SOURCE(BEAKER) (test code = 2795) Agriculture Engineer ID - [auto]Agriculture Engineer ID - techRAD, ABDOMEN/KUB, 1 VIEW [id number] 04:58:00NAGA HURT MDReason for exam:->Enteric tube placement verificationWESTLAKE [facility]Name: [facility] : 1955 Sex: MFINAL REPORT EXAM/TECHNIQUE: RAD, [...] for enterography?->NoWill this procedure require oral contrast?->No [facility] : 1955 Sex: MFINAL REPORT EXAM/TECHNIQUE: CT [...] acute cholecystitis, consider ultrasound. Signed: Mc Jones MDRort Verified Date/Time: 02/09/2022 21:06:52 SARS-COV2/RT-PCR ([facility])2022-02-09 20:27:47 Test Item Value Reference Range Interpretation Comments SARS-COV2/RT-PCR Negative Negative The SARS-Co V-2 target (test code = nucleic acids a re not 2552776) detected in thi s specimen. Negative result s do not preclude SARS-C oV-2 infection and s hould not be used as the marychuy e basis for patient managem ent decisions. Nega tive results must be combine d with clinical observ ations, patient history , and epidemiological information. A false negativ e result may occur if a spec imen is improperly aydin ected, transported or handled. This SARS CoV-2 [...] revoked sooner. Fact Sheet for Healthcare Providers: https://www.Arrowsight.Nourish m/Documents/Xpert%20Xpress%20SARS%20CoV-2/Fact%20Sheets/302-2912%56HMCJ-YQF-5%20 HEALTHCARE%20PROVIDERS%20FACT%20SHEET.pdf Fact Sheet for Healthcare Patients: https://www.shipbeat/Documents/Xpert%20Xp ress%20SARS%20CoV-2/Fact%20Sheets/3023801%06WEVJ-SLG-0%20PATIENT%20FACT%20SHEET .pdfCOMPREHENSIVE METABOLIC [id number] 20:07:42 Test Item Value Reference Range Interpretation [...] 1092) DATA TO CALCULA TE ESTIMATED GFR. Agriculture Engineer ID - RIGOBERTO [id number] 19:59:54 Test Item Value Reference Range Interpretation Comments LIPASE (BEAKER) (test code = 749) 45 U/L 8-78 Agriculture Engineer ID - RIGOBERTO [id number] 19:40:32 Test Item Value Reference Range Interpretation [...] for patients with mechanical heart valves.LACTIC ACID, [id number] 19:39:50 Test Item Value Reference Range Interpretation Comments LACTATE BLOOD VENOUS 1.81 mmol/L 0.50-2.20 Specime n slightly (2) (BEAKER) (test hemolyzed code = 9491) Agriculture Engineer ID - PIAYA LCBC W/PLT COUNT & AUTO [id number] 19:28:09 Test Item Value Reference Range Interpretation [...] 0-1 PERCENT (BEAKER) (test code = 2801) [id number] 19:22:34 Test Item Value Reference Range Interpretation Comments AMMONIA (BEAKER) 26 mol/L 18-72 Specimen mo derately (test code = 348) hemolyzed Agriculture Engineer ID - PIAYA LHEPATITIS C [id number] 15:36:09 Test Item Value Reference Range Interpretation Comments HEPATITIS C ANTIBODY (BEAKER) (test Reactive Nonreactive A code = 367) Agriculture Engineer ID - ADMINHEPATITIS A ANTIBODY, [id number] 15:22:17 Test Item Value Reference Range Interpretation Comments HEPATITIS A IGG ANTIBODY (BEAKER) Nonreactive Nonreactive (test code = 2797) Agriculture Engineer ID - [id number] 15:05:07 Test Item Value Reference Range Interpretation Comments PROCALCITONIN (BEAKER) (test code 0.15 ng/mL <0.05 H = 3036) SEPSIS RISK (ng/mL)Low: 0.05-0.50Intermediate: 0.51-2.00High: >=2.01 COMPREHENSIVE METABOLIC [id number] 14:57:26 Test Item Value Reference Range Interpretation [...] 1092) DATA TO CALCULA TE ESTIMATED GFR. Agriculture Engineer ID - NGODWLIVUA-7-[id number] 14:48:46 Test Item Value Reference Range Interpretation Comments ALPHA-1 ANTITRYPSIN (BEAKER) 205.20 mg/dL 90.00-200.00 H (test code = 502) Agriculture Engineer ID - ADMINBILIRUBIN, [id number] 14:48:45 Test Item Value Reference Range Interpretation Comments BILIRUBIN DIRECT (BEAKER) (test 0.6 mg/dL 0.1-0.5 H code = 706) Agriculture Engineer ID - ADMINPROTHROMBIN TIME/[id number] 14:46:41 Test Item Value Reference Range Interpretation Comments PROTIME (BEAKER) 15.7 seconds 11.9-14.2 H (test code = 759) INR (BEAKER) (test 1.27 See_Comment [Automat ed message] code = 370) The system [employer] generated this result transmitted ref erence range: <=5.90. The reference range was not used to int erpret this result as normal/abnormal . RECOMMENDED COUMADIN/WARFARIN INR THERAPY RANGESSTANDARD DOSE: 2.0 - 3.0 Includes: PROPHYLAXIS for venous thrombosis, systemic embolization; TREATMENT for venous thrombosis and/or pulmonary embolus.HIGH RISK: Target INR is 2.5-3.5 for patients with mechanical heart valves.LACTIC ACID, [id number] 14:36:58 Test Item Value Reference Range Interpretation Comments LACTATE BLOOD VENOUS 1.59 mmol/L 0.50-2.20 Specime n slightly (2) (BEAKER) (test hemolyzed code = 2872) Agriculture Engineer ID - ADMINCBC W/PLT COUNT & AUTO [id number] 14:24:37 Test Item Value Reference Range Interpretation [...] 0-1 PERCENT (BEAKER) (test code = 2801) [id number] 12:18:00 Test Item Value Reference Range Interpretation Comments GLUBED (test code = GLUBED) 128 mg/dL 70-110 H VANCOMYCIN [id number] 08:39:00 Test Item Value Reference Range Interpretation Comments VANCOMYCIN TROUGH 30.4 mcg/mL 10-20 H Other dise ase (test code = VANCT) associat ed reference ranges: 10 - 15 mcg/mL Cellulit is, urinary tract infection 15 - 20 mcg/mL Bacterem ia, infective endocarditis, osteomyelitis, meningitis, pneumonia, romero re skin/soft tissu e infection, spin al abscess Specimen comments: PRIOR TO AM DOSE OF VANCOMYCINComments to Live Games Dealer: DRAW LEVEL THEN GIVE VANCDOSECBC W/AUTO [id number] 05:02:00 Test Item Value Reference Range Interpretation [...] X10 3uL 0.00-0.01 N NRBC#) BASIC METABOLIC [id number] 05:01:00 Test Item Value Reference Range Interpretation [...] CA) 7.5 mg/dl 8.0-10.5 L COMPREHENSIVE METABOLIC [id number] 06:40:00 Test Item Value Reference Range Interpretation [...] 167 Units/L 50.0-136.0 H code = ALKP) [id number] 06:40:00 Test Item Value Reference Range Interpretation Comments MAGNESIUM (test code = MAG) 2.0 mg/dl 1.8-2.4 N [id number] 06:25:00 Test Item Value Reference Range Interpretation Comments AMMONIA (test code = AMM) 27.0 MCMOL/L 11.0-32.0 N CBC W/AUTO [id number] 06:22:00 Test Item Value Reference Range Interpretation [...] = 0.00 X10 3uL 0.00-0.01 N NRBC#) [id number] 15:02:00 Test Item Value Reference Range Interpretation Comments SURGICAL (test code = SR) R UN DATE: 10/24/21 [facility] - Lab PAGE 1 RUN TIME: 1502 Specimen Inquiry RUN USER: INTERFACE P ATIENT: EDDI JONES LOC: E.ICU U #: [id number] AGE/SX: 66/M ROOM: [facility] RE10/11/21[facility] DR: Mary Kidd MD : 57 BED: 1 DIS: STATUS: ADM IN TLOC: SPEC #: [id number] RECD: 10/18/21 STATUS: CAROLANN OCONNELL #: [id number] AYDIN: 10/18/21 DR: Mary Kidd MD ENTERED: 10/18/21 SP TYPE: SURGICAL OTHR DR: No Primary or Family Physician Self Referred Baltazar Henson MD, Kodlipet MD Malhotra, Advitya MD Moinuddeen, Khaja MDORDERED: GM LEVEL 4, ANATOMIC SPEC COPIES TO: No Primary or Family Physician Self Referred Baltazar Henson MD [address] [place] [phone] Ashely Khan MD [address] [place] [address] Matty Gallegos MD [address] [place] [address] OTHER PHONE [phone] (CELL) Jocelyn Sunshine MD [address] [place], [place] [address] Mary Kidd MD [address] [place] [address] [email or web address] PROCEDURES: GM LEVEL 4 (10/24/21-1502) TISSUES: PLEURA, NOS - RIGHT PLEURA CONTINUED ON NEXT PAGE R UN DATE: 10/24/21 [facility] - Lab PAGE 2 RUN TIME: 1502 Specimen Inquiry RUN USER: INTERFACE S PEC #: [id number] PATIENT: EDDI JONES #[id number] (Continued) CLINICAL HISTORY SAME FINAL DIAGNOSIS Right [...] submitted in 2 cassettes. Technical component performed [place] [id number] [address] Unless gross only, the diagnosis is based [...] of this case is [place] [address] ([facility]# [id number]). MICROSCOPIC DESCRIPTION A microscopic examination was performed. CLINICAL INFORMATION RIGHT EMPYEMER ------- Signed SIGNATURE ON FILE Bal Michelle 10/24/21 1502 END OF REPORT PROTHROMBIN [id number] 14:54:00 Test Item Value Reference Range Interpretation Comments PROTHROMBIN TIME 16.7 SECONDS 9.9-12.8 H PATIENT (test code = PTP) INTERNATIONAL NORMAL 1.4 0.89-1.14 H THE INR IS TO BE USED RATIO (test code = ONLY FOR MONITORING INR) ORAL ANTICOAGULANTTH ERAPY. THE FOLLOWING A RE SUGGESTED RANGE S FROM [facility] LEGE OF CHEST PHYSICIANS:JEANETTE CATION INR VALUEPROPHY [...] ANTIBODIES 2.5 - 3.5 - US ABDOMEN [id number] 12:41:00 [facility] 1955 Sex: M FAX: Mary Valente MD [phone] [place]: St: ADM Name: EDDI JONES [facility] : 1955 Age/S: 66/M [address] [facility] Unit #: [id number] Loc: [address] Phys: [place] [address] Acct: [id number] Dis Date: Status: ADM IN PHONE #: [phone] Exam Date: 10/24/2021 1141 FAX #: [phone] Reason: ascitis EXAMS: CPT CODE: [id number] ABDOMEN LTD 39080 Dictation location: U19. LIMITED ABDOMINAL ULTRASOUND HISTORY: Ascites, evaluate for paracentesis. IMPRESSION: Ultrasoundimages show a small amount of ascites greatest in the left lower quadrant. The ascites appears simple. IMPRESSION: Small amount of ascites, not significant enough for a therapeutic paracentesis. at 1241 Reported and signed by:Ella Fonseca M.D. CC: Mary Kidd MD Technologist: KAITLIN VILLARREAL Trnscrd Date/Time/By: 10/24/2021 (5519) : By: [email or web address] PAGE 1 Signed Report FAX: Mary Valente MD [phone] [place]: St: ADM -- Name: EDDI JONES [facility] : 1955 Age/S: 66/M [address] [facility] Unit #: [id number] Loc: [address] Phys: [place] [address] Acct: [id number] Dis Date: Status: ADM IN PHONE #: [phone] Exam Date: 10/24/2021 1141 FAX #: [phone] Reason: ascitis EXAMS: CPT CODE:[id number] US ABDOMEN LTD 81460 (Continued) Orig Print D/T: S: 10/24/2021 (7378) PAGE 2 Signed ReportBASIC METABOLIC [id number] 06:51:00 Test Item Value Reference Range Interpretation [...] CA) 7.3 mg/dl 8.0-10.5 L CBC W/AUTO [id number] 06:29:00 Test Item Value Reference Range Interpretation [...] X10 3uL 0.00-0.01 H NRBC#) CBC W/AUTO [id number] 09:59:00 Test Item Value Reference Range Interpretation [...] 3uL 0.00-0.01 N code = NRBC#) - XR CHEST 1 [id number] 07:31:00 [facility] : 1955 Sex: M FAX: Baltazar Sunshine MD [phone] [place]: St: [facility] FAX: Mary Valente MD [phone] Name: EDDI JONES [facility] : 1955 Age/S: 66/M [address] [employer] Unit #: [id number] Loc: [address] Phys: [place] [address] Acct: [id number] Dis Date: Status: ADM IN PHONE #: [phone] Exam Date: 10/23/2021 0556 FAX #: [phone] Reason: sob EXAMS: CPT CODE: [id number] XR CHEST 1 V 91716 Location Code: C3 CHEST AP HISTORY: Dyspnea COMPARISON: Chest radiograph from prior day FINDINGS: Right subclavian catheter tip is at the distal SVC. The right-sided chest tubes are stable. Small right pleural effusion remains. There is volume loss in the right lung. Mild residual left basilar atelectasis or infiltrate. Cardiomediastinal silhouette is stable and normal. NG tube terminates in the stomach. Multiple leads and wires superimposed the patient. IMPRESSION: Right-sided chest tubesare stable. Small right pleural effusion remains. Volume loss in the right lung. Mild residual left basilar atelectasis or infiltrate. at 0731 Reported and signed by: Juani Gonzalez MD CC: Baltazar Henson MD; Mary Kidd MD Technologist: MANASA PICKARD PAGE 1 Signed Report FAX: Baltazar Sunshine MD [phone] [place]: St: [facility] FAX: Mary Valente MD [phone] Name: EDDI JONES [facility] : 1955 Age/S: 66/M [address] [facility] Unit #: [id number] Loc: [address] [place], [place]: [place] [address] Acct: [id number] Dis Date: Status: ADM IN PHONE #: [phone] Exam Date: 10/23/2021 0556 FAX #: [phone] Reason: sob EXAMS: CPT CODE: [id number] XR CHEST 1 V 12372 (Continued) Trnscrd Date/Time/By: 10/23/2021 (0731) : By: [...] mg/dl 8.0-10.5 L - XR CHEST 1 [id number] 07:53:00 [facility] : 1955 Sex: M FAX: Baltazar Sunshine MD [phone] [place]: St: ADM FAX: Mary Valente MD [phone] Name: EDDI JONES [facility] : 1955 Age/S: 66/M [address] [facility] Unit #: [id number] Loc: [address] Phys: [place] [address] Acct: [id number] Dis Date: Status: ADM IN PHONE #: [phone] Exam Date: 10/22/2021704 FAX #: [phone] Reason: sob EXAMS: CPT CODE: [id number] XR CHEST 1V 65573 Location Code: C3 CHEST AP HISTORY: Dyspnea COMPARISON: Chest radiograph from 10/21/2021 FINDINGS: NG tube terminates in the stomach. Right subclavian catheter tip is at the distal SVC. The 2 right- sided chest tubes are stable, superimposing the apex. There is partial interval reexpansion of the right lung. Moderate right pleural effusion remains. Small hazy infiltrates or atelectasis persistsat left lung base. Cardiomediastinal silhouette is stable. IMPRESSION: 2 right-sided chest tubes arestable, superimposing the apex. Partial interval reexpansion of the right lung. Moderate right pleural effusion remains. at 0753 Reported and signed by: Juani Dunn MD CC: Baltazar Henson MD; Mary Kidd MD Technologist: HYUN TAVERAS Trnscrd Date/Time/By: 10/22/2021 (0753) : By: [email or web address] PAGE 1 Signed Report FAX: Baltazar Sunshine MD [phone] [place]: St: ADM FAX: Mary Valente MD [phone] Name: EDDI JONES [facility] : 1955 Age/S: 66/M [address] [facility] Unit #: [id number] Loc: [address] Phys: [place] [address] Acct: [id number] Dis Date: Status: ADM IN PHONE #: [phone] Exam Date: 10/22/2021 0705 FAX #: [phone] Reason: sob EXAMS: CPT CODE: [id number] XR CHEST 1 V 36024 (Continued) Orig Print D/T: S: 10/22/2021 (0757) PAGE 2 Signed [id number] 06:21:00 Test Item Value Reference Range Interpretation Comments AMMONIA (test code = AMM) 35.4 MCMOL/L 11.0-32.0 HH BASIC METABOLIC [id number] 06:14:00 Test Item Value Reference Range Interpretation [...] CA) 7.6 mg/dl 8.0-10.5 L CBC W/AUTO [id number] 12:53:00 Test Item Value Reference Range Interpretation [...] X10 3uL 0.00-0.01 N code = NRBC#) [id number] 12:23:00 Test Item Value Reference Range Interpretation Comments AMMONIA (test code = AMM) 51.1 MCMOL/L 11.0-32.0 HH - XR CHEST 1 [id number] 06:41:00 [facility] : 1955 Sex: M FAX: Baltazar Sunshine MD [phone] [place]: St: [facility] FAX: Mary Valente MD [phone] Name: EDDI JONES [facility] : 1955 Age/S: 66/M [address] [facility] Unit #: [id number] Loc: [address] [place], [place] [address] Acct: [id number] Dis Date: Status: ADM IN PHONE #: [phone] Exam Date: 10/21/2021524 FAX #: [phone] Reason: sob EXAMS: CPT CODE: [id number] XR CHEST1 V 43300 EXAMINATION: - XR CHEST 1 V HISTORY: [...] life support apparatus is unchanged. IMPRESSION: Interval removalof endotracheal tube, with now near complete opacification of the right hemithorax as above at 0641 Reported and signed by: Mihaela Walker M.D CC: Baltazar Henson MD; Mary Kidd MD Technologist: ANALIA MILLER Trnscrd Date/Time/By: 10/21/2021 (0641) : By: [email or web address] PAGE 1 Signed Report FAX: Baltazar Sunshine MD [phone] [place]: St: ADM FAX: Mary Valente MD [phone] Name: EDDI JONES [facility] : 1955 Age[facility]S: 66/M [address] [facility] #: [id number] Loc: [address] [place], [place]: [place] [address] Acct: [id number] Dis Date: Status: ADM IN PHONE #: [phone] Exam Date: 10/21/2021524 FAX #: [phone] Reason: sob EXAMS: CPT CODE: [id number] XR CHEST 1 V 88738 (Continued) Orig Print D/T: S: 2021 (0644) PAGE 2 Signed ReportBASIC METABOLIC [id number] 06:35:00 Test Item Value Reference Range Interpretation [...] CA) 7.2 mg/dl 8.0-10.5 L ARTERIAL BLOOD [id number] 16:25:00 Test Item Value Reference Range Interpretation [...] = METHGB) <2.0POTENTIALLY TOXIC >20.0 ARTERIAL BLOOD [id number] 16:23:00 Test Item Value Reference Range Interpretation [...] = METHGB) <2.0POTENTIALLY TOXIC >20.0 CBC W/AUTO [id number] 15:12:00 Test Item Value Reference Range Interpretation [...] 3uL 0.00-0.01 N code = NRBC#) VANCOMYCIN [id number] 08:13:00 Test Item Value Reference Range Interpretation Comments VANCOMYCIN TROUGH 14.0 mcg/mL 10-20 N Other dise ase (test code = VANCT) associat ed reference ranges: 10 - 15 mcg/mL Cellulit is, urinary tract infection 15 - 20 mcg/mL Bacterem ia, infective endocarditis, osteomyelitis, meningitis, pneumonia, romero re skin/soft tissu e infection, spin al abscess Specimen comments: DRAW PRIOR TO AM VANCOMYCIN DOSEComments to Live Games Dealer: DRAW PRIOR TO AM VANCOMYCIN DOSE- XR CHEST 1 [id number] 07:15:00 [facility] : 1955 Sex: M FAX: Baltazar Sunshine MD [phone] [place]: St: [facility] FAX: Mary Valente MD [phone] Name: EDDI JONES [facility] : 1955 Age/S: 66/M [address] [place] [address] [employer] Unit #: [id number] Loc: [place], [place]: [place] [address] Acct: [id number] Dis Date: Status: ADM IN PHONE #: [phone] Exam Date: 10/20/2021 0546 FAX #: [phone] Reason: sob EXAMS: CPT CODE: [id number] XR CHEST 1 V 55158 EXAMINATION: - XR CHEST 1 V HISTORY: [...] MD; Mary Kidd MD Technologist: KEELY ADAME Trnncrd Date/Time/By: 10/20/2021 (0715) : By: [email or web address] PAGE 1 Signed Report FAX: Baltazar Sunshine MD [phone] [place]: St: [facility] FAX: Mary Valente MD [phone] Name: EDDI JONES [facility] : 1955 Age/S:66/M [address] [place] [address] [employer] Unit #: [id number] Loc: [place], [place] Phys: Baltazar Henson [facility] [address] Acct: [id number] Dis Date: Status: ADM IN PHONE #: [phone] Exam Date: 10/20/2021 0546 FAX #: [phone] Reason: sob EXAMS: CPT CODE: [id number] XR CHEST 1 V 87608 (Continued) Orig Print D/T: S: 10/20/2021 (0718) PAGE 2 Signed [id number] 06:12:00 Test Item Value Reference Range Interpretation Comments MAGNESIUM (test code = MAG) 2.1 mg/dl 1.8-2.4 N BASIC METABOLIC [id number] 06:11:00 Test Item Value Reference Range Interpretation [...] CA) 6.8 mg/dl 8.0-10.5 L ARTERIAL BLOOD [id number] 14:30:00 Test Item Value Reference Range Interpretation [...] METHGB) <2.0POTENTIALLY TOXIC >20.0 HIV 12 AB [id number] 06:53:00 Test Item Value Reference Range Interpretation Comments AB HIV 1 2 (test code = VNG16ML) NON REACTIVE NONREACTIVE AG HIV1 P24 (test code = NEGATIVE NEGATIVE SVA8L69) - XR CHEST 1 [id number] 06:49:00 [facility] 1955 Sex: M FAX: Baltazar Sunshine MD [phone] [place]: St: [facility] FAX: Mary Valente MD [phone] Name: EDDI JONES [facility] : 1955 Age/S: 66/M [address] [facility] Unit #: [id number] Loc: [address] [place], [place]: [place] [address] Acct: [id number] Dis Date: Status: ADM IN PHONE #: [phone] Exam Date: 10/19/2021628 FAX #: [phone] Reason: sob EXAMS: CPT CODE: [id number] XR CHEST 1V 71459 EXAMINATION: - XR CHEST 1 V HISTORY: [...] base, likely atelectasis No other significant change [id number] Reported and signed by: Mihaela Walker M.D CC: Baltazar Henson MD; Mary Kidd MD Technologist: MARY LOU LAMAS Trnncrd Date/Time/By: 10/19/2021 (0649) : By: [email or web address] PAGE 1 Signed Report FAX:Baltazar Sunshine MD [phone] [place]: St: [facility] FAX: Mary Valente MD [phone] Name: EDDI JONES [facility] : 1955 Age/S: 66/M [address] [facility] Unit #: [id number] Loc: E[address] [place], [place]: [place] [address] Acct: [id number] Dis Date: Status: ADM IN PHONE #: [phone] Exam Date: 10/19/2021628 FAX #: [phone] Reason: sob EXAMS: CPT CODE: [id number] XR CHEST 1 V 62557 (Continued) Orig Print D/T: S: 10/19/2021 (0704) PAGE 2 Signed ReportBASIC METABOLIC [id number] 06:33:00 Test Item Value Reference Range Interpretation [...] CA) 6.9 mg/dl 8.0-10.5 L CBC W/AUTO [id number] 06:10:00 Test Item Value Reference Range Interpretation [...] 0.00 X10 3uL 0.00-0.01 N NRBC#) LACTIC [id number] 02:21:00 Test Item Value Reference Range Interpretation Comments LACTIC ACID (test code = LACT) 1.9 MMOL/L 0.4-2.0 N LACTIC [id number] 00:13:00 Test Item Value Reference Range Interpretation Comments LACTIC ACID (test code = LACT) 2.2 MMOL/L 0.4-2.0 H LACTIC ACID [id number] 22:04:00 Test Item Value Reference Range Interpretation Comments LACTIC ACID REPEAT (test code = 2.5 mmol/L 0.4-2.0 H LACTR) LACTIC [id number] 16:32:00 Test Item Value Reference Range Interpretation Comments LACTIC ACID (test code = LACT) 3.3 MMOL/L 0.4-2.0 H [id number] 16:08:00 Test Item Value Reference Range Interpretation Comments HEMOGLOBIN (test code = HGB) 9.8 gm/dL 13.0-17.0 L ARTERIAL BLOOD [id number] 10:36:00 Test Item Value Reference Range Interpretation [...] <2.0POTENTIALLY TOXIC >20.0 - XR ABDOMEN 1 [id number] 10:30:00 [facility] 1955 Sex: M FAX: Mary Valente MD [phone] [place]: St: ADM FAX: Vic Petersen [phone] ------ Name: EDDI JONES [facility] : 1955 Age/S: 66/M [address] [facility] Unit #: [id number] Loc: E.IC[address] [place], [place]: [place] [address] Acct: [id number] Dis Date: Status: ADM IN [facility] NE #: [phone] Exam Date: 10/18/2021 1027 FAX #: [phone] Reason: DIMINISHED BOWEL SOUNDS EXAMS: CPT CODE: [id number] XR ABDOMEN 1 V 68937 Exam: Diminished bowel sounds. Abdomen, single view. An NG tube is seen in the stomach. Gas pattern with fairly normal gas distribution. Some left abdominal small bowel loops with air but normal diameter. Gas in the large bowel appropriately with normal stool. Rangel catheter in the bladder, now. No findings of free air or unusual calcifications. IMPRESSION: 3 or 4 nondistended air- filled small bowel loops in the left lower abdomen could indicate some mild ileus effect or enteritis. No obstructive features. NG tube in the stomach. Rangel in the bladder. Location: U 19 at 1030 Reportedand signed by: Manuel James MD CC: Mary Kidd MD; Vivien Parada MD Technologist: CRYS SANON Trnscrd Date/Time/By: 10/18/2021 (1030) : By: [email or web address] PAGE 1 Signed Report FAX: Mary Valente MD [phone] [place]: St: ADM FAX: Vic Petersen [phone] Name: EDDI JONES [facility] : 1955 Age/S: 66/M [address] [facility] Unit #: [id number] Loc: [address] [place]: [place] [address] Acct: [id number] Dis Date: Status: ADM IN PHONE #: [phone] Exam Date: 10/18/2021 1027 FAX #: [phone] Reason: DIMINISHED BOWEL SOUNDS EXAMS:CPT CODE: [id number] XR ABDOMEN 1 V 95393 (Continued) Orig Print D/T: S: 10/18/2021 (1032) PAGE 2 Signed Report- XR CHEST 1 [id number] 08:37:00 [facility] : 1955 Sex: M FAX: Baltazar Sunshine MD [phone] [place]: St: ADM FAX: Mary Valente MD [phone] Name: EDDI JONES [facility] : 1955 Age/S: 66/M [address] [facility] Unit #: [id number] Loc: [address] Phys: [place] [address] Acct: [id number] Dis Date: Status: ADM IN PHONE #: [phone] Exam Date: 10/18/2021823 FAX #: [phone] Reason: sob EXAMS: CPT CODE: [id number] XR CHEST 1 V 85059 EXAMINATION: - XR CHEST 1 V HISTORY: [...] Kidd MD Technologist: KEELY ADAME Trnscrd Date/Time/By: 10/18/2021 (0837) : By: [email or web address] PAGE 1 Signed Report FAX: Baltazar Sunshine MD [phone] [place]: St: ADM FAX: Mary Valente MD [phone] Name: EDDI JONES [facility] : 1955 Age/S: 66/M [address] [facility] Unit #: [id number] Loc: [address] [place]: [place] [address] Acct: [id number] Dis Date: Status: ADM IN PHONE #: [phone] Exam Date: 10/18/2021823 FAX #: [phone] Reason: sob EXAMS: CPT CODE: [id number] XR CHEST 1 V 91618 (Continued) Orig Print D/T: S: (0840) PAGE 2 Signed ReportCBC W/MANUAL [id number] 06:04:00 Test Item Value Reference Range Interpretation [...] PLATELET MORPHOLOGY (test code NORMAL = PLTMORPH) [id number] 05:28:00 Test Item Value Reference Range Interpretation Comments GLUBED (test code = GLUBED) 132 mg/dL 70-110 H COMPREHENSIVE METABOLIC [id number] 05:12:00 Test Item Value Reference Range Interpretation [...] 75 Units/L 50.0-136.0 N code = ALKP) [id number] 05:12:00 Test Item Value Reference Range Interpretation Comments MAGNESIUM (test code = MAG) 1.6 mg/dl 1.8-2.4 L [id number] 23:28:00 Test Item Value Reference Range Interpretation Comments GLUBED (test code = GLUBED) 119 mg/dL 70-110 H - XR CHEST 1 [id number] 17:29:00 [facility] : 1955 Sex: M FAX: Baltazar Sunshine MD [phone] [place]: St: ADM FAX: Mary Valente MD [phone] Name: EDDI JONES [facility] : 1955 Age/S: 66/M [address] [facility] Unit #: [id number] Loc: [address] [place]: [place] [address] Acct: [id number] Dis Date: Status: ADM IN PHONE #: [phone] Exam Date: 10/17/20211721 FAX #: [phone] Reason: POST CHEST TUBE INSERTION EXAMS: CPT CODE: [id number] XR CHEST 1 V 76878 CLINICAL HISTORY: POST CHEST TUBE INSERTION. LOCATION: A1 FINDINGS: Comparison is made with a previous study dated October 16, 2021. A portable AP view of the chest is date10/17/2021 no 1721 hours. The cardiomediastinal silhouette is within normal size limits. Endotrachealtube has been placed in appropriate position with its tip approximately 2.3 cm superior to the wyatt. Nasogastric tube has been placed and appears appropriately positioned although its tip is excludedfrom the image. 2 right chest tubes have been placed. The right central line remains in place with its tip overlying the distal SVC. There is a 20% pneumothorax at the lateral right lower chest. Thereis moderate consolidation at the right lower lung with diffuse mild infiltrates also noted within the right mid and upper lung. No pleural effusions are evident. There is mild subcutaneous emphysema atthe lateral right chest. No acute skeletal or soft tissue abnormalities are otherwise identified. IMPRESSION: 1. Tubes and lines appear appropriately positioned as described above. 2. There is a 20% pneumothorax at the lateral right lower chest with chest tube in place. 3. There is stable moderate consolidation at the right lower lung with mild infiltrates also noted at the right mid and upper lung. at 1729 Reported and signed by: Boyd Klein M.D. CC: Baltazar Henson MD; Mary Kidd MD Technologist: MOLLY ARMSTRONG [facility] Date/Time/By: 10/17/2021 (5737) : By: [email or web address] PAGE 1 Signed Report FAX: Baltazar Sunshine MD [phone] [place]: St: [facility] FAX: Mary Valente MD [phone] Name: EDDI JONES [facility] : 1955 Age/S: 66/M [address] [facility] Unit #: [id number] Loc: E[address] [place], [place]: [place] [address] Acct: [id number] Dis Date: Status: ADM IN PHONE #: [phone] Exam Date: 10/17/2021 1722FAX #: [phone] Reason: POST CHEST TUBE INSERTION EXAMS: CPT CODE: [id number] XR CHEST 1 V 00133 (Continued) Orig Print D/T: S: 10/17/2021 (1732) PAGE 2 Signed ReportCoronavirus 2019 nCoV [id number] 10:08:00 Test Item Value Reference Range Interpretation Comments Coronavirus 2019 Negative NEGATIVE Negative re sults should be nCoV Bedside (test treated a s presumptive and code = ifinconsistent with [id number]) clinical signs and symptoms, or ne cessaryfor patient managem ent, should be tested with an alternativemole cular assay. Negative result s do not preclude EKYM-RxF-6tdlww tion and should not be u sed as the sole basis forp atient management deci sions. Negative result s should beconsidered in the context of a patient's recent exposures,histo ry, presence of clinical sig ns and symptoms consis tentwith COVID-19. REJECTED/RECEIVE SWAB AFTER ONE HOUR OF COLLECTION/ E.LAB.KKP1 10/17/21 0930.NOTIFIED [place]..COMPREHENSIVE METABOLIC [id number] 06:24:00 Test Item Value Reference Range Interpretation [...] 102 Units/L 50.0-136.0 N code = ALKP) [id number] 06:24:00 Test Item Value Reference Range Interpretation Comments MAGNESIUM (test code = MAG) 1.5 mg/dl 1.8-2.4 L PROTHROMBIN [id number] 06:09:00 Test Item Value Reference Range Interpretation Comments PROTHROMBIN TIME 18.1 SECONDS 9.9-12.8 H PATIENT (test code = PTP) INTERNATIONAL NORMAL 1.5 0.89-1.14 H THE INR IS TO BE USED RATIO (test code = ONLY FOR MONITORING INR) ORAL ANTICOAGULANTTH ERAPY. THE FOLLOWING A RE SUGGESTED RANGE S [facility] LEGE OF CHEST PHYSICIANS:JEANETTE CATION INR [...] 2.5 - 3.5 Specimen comments: FOR SURGERY TOMORROWCBC W/AUTO [id number] 06:06:00 Test Item Value Reference Range Interpretation [...] 0.00-0.01 N NRBC#) - XR CHEST 2 [id number] 10:48:00 [facility] : 1955 Sex: M FAX: Jocelyn Modi MD [phone] [place]: St: [facility] FAX: Mary Valente MD [phone] ------- Name: EDDI JONES [facility] : 1955 Age/S: 66/M [address] [facility] Unit #: [id number] Loc: [address] [place], [place]: [place] [address] Acct: [id number] Dis Date: Status: ADM IN PHONE #: [phone] Exam Date: 10/16/2021 1028 FAX #: [phone] Reason: SURGERY THORACOTOMY TOMORROW EXAMS: CPT CODE: [id number] XR CHEST 2 V 47104 Site ID: [id number] INDICATION: Preoperative for thoracotomy COMPARISON: Chest x-ray 4 hours prior IMPRESSION: Loculated dense right basilar effusion/empyema with smooth pleural thickening and partially tethered lung within the right lung base redemonstrated. Left lung is clear. Small bore right basilar chest tube remains in place. at 1043 Reported and signed by: Mihai Alejo M.D. CC: Jocelyn Sunshine MD; Mary Kidd MD Technologist: KEELY ADAME [facility] Date/Time/By: 10/16/2021 (6690) : By: [email or web address] PAGE 1 Signed Report FAX: Jocelyn Modi MD [phone] [place]: St: [facility] FAX: Mary Valente MD [phone] Name: EDDI JONES [facility] : 1955 Age/S: 66/M [address] [facility] Unit #:[id number] Loc: [address] Phys: [place] [address] Acct: [id number] Dis Date:Status: ADM IN PHONE #: [phone] Exam Date: 10/16/2021 1028 FAX #: [phone] Reason: SURGERY T HORACOTOMY TOMORROW EXAMS: CPT CODE: [id number] XR CHEST 2 V 52507 (Continued) Orig Print D/T: S: 10/16/2021 (0383) PAGE 2 Signed Report- XR CHEST 1 V 2021-10-16 08:16:00 [facility] : 1955 Sex: M FAX: Baltazar Sunshine MD [phone] [place]: St: [facility] FAX: Mary Valente MD [phone] Name: EDDI JONES [facility] : 1955 Age/S: 66/M [address] [facility] Unit #: [id number] Loc: [address] [place], [place]: [place] [address] Acct: [id number] Dis Date: Status: ADM IN PHONE #: [phone] Exam Date: 10/16/2021612 FAX #: [phone] Reason: sob EXAMS: CPT CODE: [id number] XR CHEST 1 V 40390 EXAM: Portable chest x-ray Dictation location: COMPARISON: Chest x-ray on 10/15/2021 INDICATION: sob [...] right-sided chest tube is in place. No pneumothorax isseen. Atelectasis or pneumonia at the right lung base is likely. Findings are not significantly changed compared to one day prior. dt9291 Reported and signed by: Rogelio Brice M.D. CC: Baltazar Henson MD; Mary Kidd MD Technologist: Watch Over Me Trnscrd Date/Time/By: 10/16/2021 (0816) : By: [email or web address] PAGE 1 Signed Report FAX: YCBaltazar calvo MD [phone] [place]: St: ADM FAX: Mary Valente MD [phone] Name: EDDI JONES [facility] : 1955 Age/S: 66/M [address] [facility] Unit #: [id number] Loc: [address] [place], [place]: [place] [address] Acct: [id number] Dis Date: Status: ADM IN PHONE #: [phone] Exam Date: 10/16/2021612 FAX #: [phone] Reason: sob EXAMS: CPT CODE: [id number] XR CHEST 1 V 70139 (Continued) Orig Print D/T: S: 10/16/2021 (08) PAGE 2 Signed [id number] 07:34:00 Test Item Value Reference Range Interpretation Comments GLUBED (test code = GLUBED) 83 mg/dL 70-110 N COMPREHENSIVE METABOLIC [id number] 07:18:00 Test Item Value Reference Range Interpretation [...] 124 Units/L 50.0-136.0 N code = ALKP) [id number] 07:18:00 Test Item Value Reference Range Interpretation Comments MAGNESIUM (test code = MAG) 1.8 mg/dl 1.8-2.4 N [id number] 07:16:00 Test Item Value Reference Range Interpretation Comments AMMONIA (test code = AMM) 11.0 MCMOL/L 11.0-32.0 N CBC W/AUTO [id number] 07:03:00 Test Item Value Reference Range Interpretation [...] X10 3uL 0.00-0.01 N NRBC#) BASIC METABOLIC [id number] 08:15:00 Test Item Value Reference Range Interpretation [...] CA) 7.3 mg/dl 8.0-10.5 L CBC W/AUTO [id number] 07:32:00 Test Item Value Reference Range Interpretation [...] 0.00-0.01 N NRBC#) - XR CHEST 1 [id number] 02:08:00 [facility] : 1955 Sex: M FAX: Baltazar Sunshine MD [phone] [place]: St: [facility] FAX: Mary Valente MD [phone] Name: EDDI JONES [facility] : 1955 Age/S: 66/M [address] [facility] [employer] Unit #: [id number] Loc: [address] [place], [place]: [place] [address] Acct: [id number] Dis Date: Status: ADM IN PHONE #: [phone] Exam Date: 10/15/2021 0125 FAX #: [phone] Reason: sob EXAMS: CPT CODE: [id number] XR CHEST 1 V 56740 HISTORY: Shortness of breath Location: C3 COMPARISON:10/14/2021 FINDINGS: Right approach central line is again noted. Right-sided pleural effusion is again demonstrated. Right perihilar opacity is present. Left lung remains clear. No pneumothorax. IMPRESSION: 1. Right pleural effusion with right perihilar opacity compatible with edema and/or pneumonia. at 0208 Reported and signed by: Manuel Ramirez M.D. CC: Baltazar Henson MD; Mary Kidd MD Technologist: MOLLY ARMSTRONG Trnscrd Date/Time/By: 10/15/2021 (0208) : By: [email or web address] PAGE 1 Signed Report FAX: Baltazar Sunshine MD [phone] [place]: St: [facility] FAX: Mary Valente MD [phone] Name: EDDI JONES [facility] : 1955 Age/S: 66/M [address] [facility] [employer] Unit #: [id number] Loc: [address] [place], [place]: [place] [address] Acct: [id number] Dis Date: Status: ADM IN PHONE #: [phone] Exam Date: 10/15/2021 0125 FAX #: [phone] Reason: sob EXAMS: CPT CODE: [id number] XR CHEST 1 V 29079 (Continued) Orig Print D/T: S: 10/15/2021 (0211) PAGE 2 Signed Report- XR CHEST 1 [id number] 15:12:00 [facility] ED[facility] : 1955 Sex: M FAX: Poncho Baldwin MD [phone] [place]: St: [facility] FAX: Mary Valente MD [phone] --------- Name: EDDI JONES [facility] : 1955 Age/S: 66/M [address] [facility] Unit #: [id number] Loc: [address] [place], [place]: [place] [address] Acct: [id number] Dis Date: Status: ADM IN PHONE #: [phone] Exam Date: 10/14/2021 1358 FAX #: [phone] Reason: CENTRAL LINE PLACEMENT EXAMS: CPT CODE: [id number] XR CHEST 1 V 07332 C3 TIME OF STUDY: 10/14/2021 1:48 PM REASON FOR EXAM: CENTRAL LINE PLACEMENT COMPARISON: Chest radiograph from the same date at 5:00 AM FINDINGS: AP view of the chest was obtained. Support devices: Right subclavian approach central venous catheter in place with the tip inthe mid SVC. Lungs: Hazy right lung opacities are present. Pleura: No pneumothorax.Stable right pleural effusion. Heart and Mediastinum: Obscured by overlying opacities. Bones: Unchanged regional skeletal structures. IMPRESSION: 1. Right central venous catheter in place with no pneumothorax. Otherwise unchanged chest radiograph. at 1512 Reported and signed by: Dre Plaza M.D. CC: Poncho Huynh MD; Mary Kidd MD Technologist: DOORTHY SANON [facility] Date/Time/By: 10/14/2021 (1511) : By: [email or web address].[email or web address] PAGE 1 Signed Report FAX: Poncho Baldwin MD [phone] [place]: St: ADM FAX: Mary Valente MD [phone] Name: EDDI JONES [facility] : 1955 Age/S: 66/M [address] [facility] Unit #: [id number] Loc: [address] Phys: [place] [address] Acct: [id number] Dis Date: Status: ADM IN PHONE #: [phone] Exam Date: 10/14/2021 1358 FAX #: [phone] Reason: CENTRAL LINE PLACEMENT EXAMS: CPT CODE: [id number] XR CHEST 1 V 09096 (Continued) Orig Print D/T: S: 10/14/2021 (1515) PAGE 2 Signed Report- XR CHEST 1 [id number] 08:05:00 [facility] : 1955 Sex: M FAX: Baltazar Sunshine MD [phone] [place]: St: ADM FAX: Mary Valente MD [phone] Name: EDDI JONES [facility] : 1955 Age/S: 66/M [address] [facility] Unit #: [id number] Loc: [address] Phys: [place] [address] Acct: [id number] Dis Date: Status: ADM IN PHONE #: [phone] Exam Date: 10/14/2021 0743 FAX #: [phone] Reason: sob EXAMS: CPT CODE: [id number] XR CHEST 1 V 63570 EXAM: - XR CHEST 1 V LOCATION: C3 HISTORY: sob COMPARISON: prior day FINDINGS: Single view of the chest. No indwelling lines/tubes. No pneumothorax. Unchanged small right pleural effusion and infrahilar linear opacities. The mediastinal contours are unchanged. IMPRESSION: Unchanged exam. at 0805 Reported and signed by: James Ellsworth M.D. CC: Baltazar Henson MD; Mary Kidd MD Technologist: DOROTHY SANON Trnscrd Date/Time/By: 10/14/2021 (804) : By: [email or web address] PAGE 1 Signed Report FAX: Baltazar Sunshine MD [phone]: EM St: ADM FAX: Mary Valente MD [phone] Name: ARELYEDDI Hal [facility] : 1955 Age/S: 66/M [address] [facility] Unit #: [id number] Loc: [address] [place] [address] Phys: [place] [address] Acct: [id number] Dis Date: Status: ADM IN PHONE #: [phone] Exam Date: 10/14/2021742 FAX #: [phone] Reason: sob EXAMS: CPT CODE: [id number] XR CHEST 1 V 59569 (Continued) Orig Print D/T: S: 10/14/2021 (0808) PAGE 2 Signed ReportCBC W/AUTO [id number] 05:38:00 Test Item Value Reference Range Interpretation [...] (test code = DECREASED PLTEST) BASIC METABOLIC [id number] 02:23:00 Test Item Value Reference Range Interpretation [...] CA) 7.9 mg/dl 8.0-10.5 L BASIC METABOLIC [id number] 18:34:00 Test Item Value Reference Range Interpretation [...] = CA) 8.1 mg/dl 8.0-10.5 N PROTHROMBIN [id number] 18:21:00 Test Item Value Reference Range Interpretation Comments PROTHROMBIN TIME 17.2 SECONDS 9.9-12.8 H PATIENT (test code = PTP) INTERNATIONAL NORMAL 1.4 0.89-1.14 H THE INR IS TO BE USED RATIO (test code = ONLY FOR MONITORING INR) ORAL ANTICOAGULANTTH ERAPY. THE FOLLOWING A RE SUGGESTED RANGE S [facility] LEGE OF CHEST PHYSICIANS:JEANETTE CATION [...] D ANTIBODIES 2.5 - 3.5 THROMBOPLASTIN TIME [id number] 18:21:00 Test Item Value Reference Range Interpretation Comments THROMBOPLASTIN TIME 31.20 SECONDS 25.86-36.07 N [facility] PARTIAL (test code = Therape utic Range - PTT) APTT of 55.8-85 .4 secondscorrelat es with plasma heparin concentration o f 0.2-0.4 u/mL Ne w range - CBC W/O [id number] 18:15:00 Test Item Value Reference Range Interpretation [...] 9.2 fl 7.4-10.4 N MPV) COMPREHENSIVE METABOLIC [id number] 07:28:00 Test Item Value Reference Range Interpretation [...] 50.0-136.0 H code = ALKP) CBC W/AUTO [id number] 07:14:00 Test Item Value Reference Range Interpretation [...] 0.00-0.01 N NRBC#) - XR CHEST 1 [id number] 06:40:00 [facility] : 1955 Sex: M FAX: Baltazar Sunshine MD [phone] [place]: St: [facility] FAX: Mary Valente MD [phone] Name: ARELYEDDI Hal [facility] : 1955 Age/S: 66/M [address] [facility] Unit #: [id number] Loc: [address] [place] [address] [place]: [place] [address] Acct: [id number] Dis Date: Status: ADM IN PHONE #: [phone] Exam Date: 10/13/2021 0639 FAX #: [phone] Reason: sob EXAMS: CPT CODE: [id number] XR CHEST 1 V 41304 EXAM: - XR CHEST 1 V Location [...] MD; Mary Kidd MD Technologist: KEELY ADAME [facility] Date/Time/By: 10/13/2021 (0640) : By: [email or web address] PAGE 1 Signed Report FAX: Baltazar Sunshine MD [phone] [place]: St: ADM FAX: Mary Valente MD [phone] Name: EDDI JONES [facility] : 1955 Age/S: 66/M [address] [facility] Unit #: [id number] Loc: [address] Phys: [place] [address] Acct: [id number] Dis Date: Status: ADM IN PHONE #: [phone] Exam Date: 10/13/2021 0639 FAX #: [phone] Reason: sob EXAMS: CPT CODE: [id number] XR CHEST 1 V 64917 (Continued) Orig Print D/T: S: 10/13/2021 (0643) PAGE 2 Signed ReportCBC W/AUTO [id number] 15:10:00 Test Item Value Reference Range Interpretation [...] = DECREASED PLTEST) HARDSTICK PATIENT. NOTIFIED NURSE: LAB.JODY 10/12/21 0945.BASIC METABOLIC [id number] 14:59:00 Test Item Value Reference Range Interpretation [...] mg/dl 8.0-10.5 N HARDSTICK PATIENT. NOTIFIED NURSE: LAB.JODY 10/12/21 0945.PT H/S.- CT CHEST W/O [id number] 10:43:00 [facility] : 1955 Sex: M FAX: Baltazar Sunshine MD [phone] [place]: EM St: ADM FAX: Mary Valente MD [phone] Name: EDDI JONES [facility] : 1955 Age/S: 66/M [address] [facility] Unit: [id number] Loc: [address] [place] [address] Phys: [place] [address] Acct: [id number] Dis Date: Status: ADM IN PHONE #: [phone] Exam Date: 10/12/2021 0955 FAX #: [phone] Reason: empyema EXAMS: CPT CODE: [id number] CT CHESTW/O CONTRAST 73654 EXAM: - CT CHEST W/O CONTRAST LOCATION: [...] THYROID: Normal. LYMPHADENOPATHY: There is no supraclavicular oraxillary lymphadenopathy. No enlarged mediastinal or hilar lymph [...] the dependent right middle lobe and right lowerlobe. MEDIASTINUM: The heart and pericardium are unremarkable. The thoracic aorta is nonaneurysmal. M ild aortic atherosclerosis. Coronary artery calcifications are present. The pulmonary trunk is normal in size. The esophagus is grossly unremarkable. VISUALIZED ABDOMEN: Morphologic changes of chronic liver disease and sequelae of portal hypertension. SOFT TISSUES: Unremarkable. PAGE 1 Signed Report ( CONTINUED) FAX: Baltazar Sunshine MD [phone] [place]: St: [facility] FAX: Mary Valente MD [phone] Name: EDDI JONES [facility] : 1955 Age/S: 66/M [address] [facility] Unit: [id number] Loc: [address] [place] [address] [place]: [place] [address] Acct: [id number] Dis Date: Status: ADM IN PHONE #: [phone] Exam Date: 10/12/2021 0955 FAX #: [phone] Reason: empyema EXAMS: CPT CODE: [id number] CT CHEST W/O CONTRAST 56701 (Continued) BONES: Mild spinal degenerative changes noted. No acuteosseous findings. IMPRESSION: 1. Status post chest tube placement within right-sided empyema, which is significantly decreased in size from prior. Residual fluid component measures 8.3 x 4.0 x 10.4 cm.Overlying atelectasis and consolidation noted in the dependent right middle and lower lobes, with likely component of superimposed pulmonary infection. 2. Morphologic changes of chronic liver disease and sequelae of portal hypertension. at 10 43 Reported and signed by: Taran Ly M.D. CC: Baltazar Henson MD; Mary Kidd MD Technologist:MOLLY KING; ABHIJEET PURVIS Trnscrd Dt/Tm: 10/12/2021 (9786) [email or web address] Orig Print D/T: S: 10/12/2021 (7755 PAGE 2 Signed Report- XR CHEST 1 [id number] 06:45:00 [facility] 1955 Sex: M FAX: Baltazar Sunshine MD [phone] [place]: St: [facility] FAX: Mary Valente MD [phone] Name: EDDI JONES [facility] : 1955 Age/S: 66/M [address] [facility] Unit #: [id number] Loc: [place], [place]: [place] [address] Acct: [id number] Dis Date: Status: ADM IN PHONE #: [phone] Exam Date: 10/12/2021 0643 FAX #: [phone] Reason: sob EXAMS: CPT CODE: [id number] XR CHEST 1 V 11661 EXAM: - XR CHEST 1 V Location code:C3 HISTORY: sob COMPARISON: 10/11/2021 FINDINGS: Single APview of the chest is provided. Right-sided thoracostomy tube is unchanged. Pleural-parenchymal opacit y at the right lung base is similar. The left lung is clear. There is no pneumothorax. Pression: 1. No significant interval change. at 0645 Reported and signed by: Ubaldo Cho M.D. CC: Baltazar Henson MD; Barbara Kidd MD Technologist: ANALIA MILLER Trnncrd Date/Time/By: 10/12/2021 (0645) : By: [email or web address] 1 Signed Report FAX: Baltazar Sunshine MD [phone] [place]: St: ADM FAX: Mary Valente [phone] Name: EDDI JONES [facility] : 1955 Age/S: 66/M [address] [facility] Unit #: [id number] Loc: [place], [place]: [place] [address] Acct: [id number] Dis Date: Status: ADM IN PHONE #: [phone] Exam Date: 10/12/202143 FAX #: [phone] Reason: sob EXAMS: CPT CODE: [id number] XR CHEST 1 V 57432 (Continued) Orig Print D/T: S: 10/12/2021 (0648) PAGE 2 Signed [id number] 18:51:00 Test Item Value Reference Range Interpretation Comments TROPONIN-I (test 0.02 NG/ML 0.00-0.06 N REFERENCE R TATUM TROPONIN code = TROPI) I HEALTHY JEANETTE VIDUALS: <0.06 ng/mL R/O ISCHEMIA: 0.07 - 0.60 ng/mL CUT-OFF R TATUM FOR AMI: 0.60 - 1.5 ng/mL - XR CHEST 1 [id number] 18:25:00 [facility] 1955 Sex: M FAX: Melinda Singleton MD [place]: St: ADM FAX: Mary Valente MD [phone] Name: EDDI JONES [facility] :1955 Age/S: 66/M [address] [facility] Unit #: [id number] Loc: [place], [place] [address] Acct: [id number] Dis Date: Status: ADM IN PHONE #: [phone] ExamDate: 10/11/2021 1810 FAX #: [phone] Reason: R/O DISLOCATION OF CHEST TUBE EXAMS: CPT CODE: [id number] XR CHEST 1 V 03554 C3 TIME OF STUDY: 10/11/2021 5:50 PM [...] post chest tube placement. No pneumothorax. at 182 Reported and signed by: Dre Plaza M.D. CC: Melinda Rivera MD; Mary Kidd MD Technologist: LARA CAGLE Trnncrd Date/Time/By: 10/11/2021 (1824) : By: [email or web address].[email or web address] PAGE 1 Signed Report FAX: Melinda Singleton MD [place]: St: [facility] FAX: Mary Valente MD [phone] Name: EDDI JONES [facility] : 1955 Age/S: 66/M [address] [facility] Unit #: [id number] Loc: [place], [place]: [place] [address] Acct: [id number] Dis Date: Status: ADM IN PHONE #: [phone] Exam Date: 10/11/20211809 FAX #: [phone] Reason: R/O DISLOCATION OF CHEST TUBE EXAMS: CPT CODE: [id number] XR CHEST 1 V 96842 (Continued) Orig Print D/T: S: 10/11/2021 (1828) PAGE 2 Signed ReportFLUID [id number] 16:38:00 Test Item Value Reference Range Interpretation Comments FLUID PROTEIN 3.6 g/dL The reference range and other (test code = method PROTFL) performancespec ifications have not been establ ished for this body fluidtest. The test result must be integra britta into the clinicalcontext for interpretation. Specimen comments: Screw Top 1Specimen comments: Lavender TopFLUID [id number] 16:38:00 Test Item Value Reference Range Interpretation Comments FLUID LDH 1736 IU/L The reference r tatum and other (test code = method performa ncespecifications LDHFL) have not been e stablished for this body fluid test. The test result must be integrated into the clinicalcon text for interpretation. Result is in International U nits/Liter Specimen comments: [facility] 1Specimen comments: Lavender TopPLEURAL FLD CELL CT/[id number] 16:38:00 Test Item Value Reference Range Interpretation [...] (test 100 code = TOTCELLFL) Specimen comments: [facility] 1Specimen comments: Lavender TopPLERUAL FLD GLUCOSE 2021-10-11 16:38:00 Test Item Value Reference Range Interpretation Comments PLERUAL FLD 43 MG/DL 65-110 L The reference r tatum and other GLUCOSE (test method code = GLUPL) performancespe cifications have not been establ ished for this body fluidtest. The test result must be integra britta into the clinicalcontext for interpretation. Specimen comments: [facility] 1Specimen comments: Lavender TopTROPONIN-I 2021-10-11 15:38:00 Test Item Value Reference Range Interpretation Comments TROPONIN-I (test 0.02 NG/ML 0.00-0.06 N REFERENCE R TATUM TROPONIN code = TROPI) I HEALTHY JEANETTE VIDUALS: <0.06 ng/mL R/O ISCHEMIA: 0.07 - 0.60 ng/mL CUT-OFF R TATUM FOR AMI: 0.60 - 1.5 ng/mL URINALYSIS [id number] 15:28:00 Test Item Value Reference Range Interpretation [...] Description: CLEAN CATCHUA RFLX MICR CULT IF [id number] 15:28:00 Test Item Value Reference Range Interpretation Comments UA CULTURE NEEDED? NO, WBC<10 Culture Chk Criteria not met, (test code = Criteria Urine Culture UACULT) cancelled. Indication for culture: RiskForSepsis-no oth srcSpecimen Description: CLEAN CATCHLACTIC ACID [id number] 14:33:00 Test Item Value Reference Range Interpretation Comments LACTIC ACID REPEAT (test code = 1.9 mmol/L 0.4-2.0 N LACTR) - CT ABD PELVIS [id number] 14:00:00 [facility] 1955 Sex: M FAX: Melinda Singleton MD [place]: St: REG Name: EDDI JONES [facility] : 1955 Age/S: 66/M [address] [facility] Unit: [id number] Loc: [place], [place]: [place] [address] Acct: [id number] Dis Date: Status: REG ER PHONE #: [phone] Exam Date: 10/11/2021 1348 FAX #: [phone] Reason: hernia EXAMS: CPT CODE: [id number] CT ABD PELVIS W/CONT 92215 EXAM: - CT ABD PELVIS W/CONT LOCATION: C3 INDICATION: 66 years -old Male with hernia TECHNIQUE: Contrast - IV contrast was given. No oral contrast was given Portal venous phase - abdomen and pelvis No delayed phase images were obtained. Reconstructions - coronal and sagittal planes This exam was performed according to our department al dose-optimization program, which includes automated exposure control, adjustment of the mA and/orkV according to patient size and/or use of iterative reconstruction technique COMPARISON: None available at time of interpretation. FINDINGS: Statements: None. Thoracic: Moderate right pleural effusion. Several right lower and moderate right middle lobe consolidation noted. Hepatobiliary: The liver iscirrhotic. The gallbladder is distended. Stones and sludge identified at the gallbladder fundus. No biliary dilation. Pancreas: Normal. Spleen: Enlarged measuring 17.8 cm. Adrenals: Normal. Genitourinary: 2.6 cm cystlike lesion in the right kidney, no follow-up necessary. No hydronephrosis. Evaluationof the bladder is limited, but no obvious bladder abnormality is present. Gastrointestinal: No bowelobstruction or perienteric inflammation. The appendix is normal. Vascular: Splenorenal varices noted. Atherosclerotic calcifications are present. PAGE 1 Signed Report (CONTINUED) FAX: Melinda Singleton [place]: St: REG --Name: EDDI JONES [facility] : 1955 Age/S: 66/M [address] [facility] Unit:[id number] Loc: [place], [place]: [place] [address] Acct: [id number] Dis Date: Status: REG ER PHONE #: [phone] Exam Date: 10/11/2021 1348 FAX #: [phone] Reason: hernia EXAMS: CPT CODE: [id number] CT ABD PELVIS W/CONT 77536 (Continued) Lymphatics: No enlarged lymph nodes byCT size criteria. Bones/Soft Tissues: No acute osseous [...] Technologist: MOLLY KING Trnscrd Dt/Tm: 10/11/2021 (1400) OpalHV2 Orig Print D/T: S: 10/11/2021 (2335 PAGE 2 Signed ReportCOVID 19 Asymptomatic IH [id number] 13:35:00 Test Item Value Reference Range Interpretation Comments COVID 19 NEGATIVE NEGATIVE Negative result s should be Asymptomatic IH AG treated a s presumptive and (test code = ifinconsistent with COVNONPUIAG) clinical signs and symptoms, or ne cessaryfor patient managem ent, should be tested with an alternativemole cular assay. Negative results do not preclude BUEN-PsT-3ejwgd tion and should not be u sed as the sole basis forp atient management deci sions. Negative result s should beconsidered in the context of a pa tient's recent exposure s,history, presence of cli nical signs and symptoms consistentwith COVID-19. BASIC METABOLIC [id number] 12:37:00 Test Item Value Reference Range Interpretation [...] 8.8 mg/dl 8.0-10.5 N HEPATIC FUNCTION PANEL [id number] 12:37:00 Test Item Value Reference Range Interpretation [...] 215 Units/L 50.0-136.0 H code = ALKP) [id number] 12:37:00 Test Item Value Reference Range Interpretation Comments LIPASE (test code = LIP) 352 Units/L 65.0-230.0 H B-TYPE NATRIURETIC [id number] 12:37:00 Test Item Value Reference Range Interpretation Comments B-TYPE NATRIURETIC PEPTIDE (test 5.3 PG/ML 5-100 N code = BNP) CARDIAC ENZYMES [id number] 12:37:00 Test Item Value Reference Range Interpretation Comments CREATINE KINASE (CK) 66 Units/L 35-232 N (test code = CK) TROPONIN-I (test code 0.02 NG/ML 0.00-0.06 N REFERE NCE RANGE = TROPI) TROPONIN I HEAL THY INDIVIDUALS: <0 .06 ng/mL R/O ISCHE ONEIDA: 0.07 - 0.60 ng/ mL CUT-OFF RANGE F OR AMI: 0.60 - 1.5 ng/m L LACTIC [id number] 12:13:00 Test Item Value Reference Range Interpretation Comments LACTIC ACID (test code = LACT) 2.7 MMOL/L 0.4-2.0 H [id number] 12:06:00 Test Item Value Reference Range Interpretation Comments AMMONIA (test code = AMM) 4.3 MCMOL/L 11.0-32.0 L PROTHROMBIN [id number] 12:05:00 Test Item Value Reference Range Interpretation Comments PROTHROMBIN TIME 17.8 SECONDS 9.9-12.8 H PATIENT (test code = PTP) INTERNATIONAL NORMAL 1.5 0.89-1.14 H THE INR IS TO BE USED RATIO (test code = ONLY FOR MONITORING INR) ORAL ANTICOAGULANTTH ERAPY. THE FOLLOWING A RE SUGGESTED RANGE S FROM [facility] LEGE OF CHEST PHYSICIANS:JEANETTE CATION [...] D ANTIBODIES 2.5 - 3.[address] [id number] 12:05:00 Test Item Value Reference Range Interpretation Comments THROMBOPLASTIN TIME 31.40 SECONDS 25.86-36.07 N [facility] d Lab PARTIAL (test code = Therape utic Range - PTT) APTT of 55.8-85 .4 secondscorrelat es with plasma heparin concentration o f 0.2-0.4 u/mL Ne w range effective - CBC W/AUTO [id number] 11:59:00 Test Item Value Reference Range Interpretation [...] 0.00-0.01 N NRBC#) - XR CHEST 1 [id number] 11:53:00 [facility] : 1955 Sex: M FAX: Melinda Singleton MD [place]: MANDI St: REG Name: EDDI JONES [facility] : 1955 Age/S: 66/M [address] [place] [address] [employer] Unit #: [id number] Loc: [place], [place]: [place] [address] Acct: [id number] Dis Date: Status: REG ER PHONE #: [phone] Exam Date: 10/11/2021 1141 FAX #: [phone] Reason: Code SEPSIS EXAMS: CPT CODE: [id number] XR CHEST 1 V 25278 EXAM: - XR CHEST 1 V LOCATION: C3 HISTORY: Code SEPSIS COMPARISON: None available at time of interpretation. FINDINGS: Single view ofthe chest. No indwelling lines or tubes. No pneumothorax. Moderate right pleural effusion is noted. The mediastinal contours are unremarkable/unchanged. No acute osseous findings are present. IMPRESSION: Moderate right pleural effusion. at 1153 Reported and signed by: James Ellsworth M.D. CC: Melinda Rivera MD Technologist: DOROTHY SANON Trnncrd Date/Time/By: 10/11/2021 (1153) : By: OpalHV2 PAGE 1 Signed Report FAX: Melinda Singleton MD [place]: St: REG ----- Name: EDDI JONES [facility] : 1955 Age/S: 66/M [address] [place] [address] [id number] Loc: [place], [place]: [place] [address] Acct: [id number] Dis Date: Status: REG ER PHONE #: [phone] Exam Date: 10/11/2021 1141 FAX #: [phone] Reason: Code SEPSIS EXAMS: CPT CODE: [id number] XR CHEST 1 V 58123 (Continued) Orig Print D/T: S: 10/11/2021 (1157) PAGE 2 Signed ReportBLOOD CULTURE [id number] 12:31:49 Test Item Value Reference Range Interpretation Comments Blood Culture Coagulase negative Organism identified Workup (test Staphylococcus by DNA code = 600-7) probeAdditiona l work-up perform ed only per reques t. Culture plate(s ) will be saved until this date: - 10/13/21 Gram stain Isolated from Gram positive cocci (test code = anaerobic bottle in Anaerobi c bottle 664-3) Gram positive cocci [facility] [id number] 12:31:44 Test Item Value Reference Range Interpretation Comments Blood Culture-Aerobic No organisms No growth Previo us (test code = 14634-8) isolated prelim inary verified result was Culture In Progress on 10/06/2021 at 15 19 CDT Blood Culture positive. No growth AA Gram posit kashif Culture-Anaerobic See Blood Culture cocci in (test code = 39096-8) Workup for Anaero bic bottle additional Previous information. preliminary verified result was Culture In Progress on 10/05/2021 at 16 01 CDT Lab Interpretation Abnormal (test code = 61978-4) [facility]N-TERMINAL [id number] 12:26:48 Test Item Value Reference Range Interpretation Comments NT-proBNP (test code 1080 pg/mL See_Comment H [Autom ated = 5251554921) message] The system which generated this result transmitted reference range : <=125. The reference range was not used to interpret this result as normal/abnormal . ALLYN (test code = ALLYN) Biotin has been reported to cause a negative bias, interpret results relative to patient's use of biotin. Lab Interpretation Abnormal (test code = 30183-1) [facility]MAGNESIUM2022-03-19 12:19:25 Test Item Value Reference Range Interpretation Comments MAGNESIUM (test code = 8101012498) 2.7 mg/dL 1.7-2.4 H Lab Interpretation (test code = Abnormal 94540-3) [facility]COM. METABOLIC PANEL (78825)2021-10-08 12:19:05 Test Item Value Reference Range Interpretation Comments NA (test code = 135 mmol/L 135-145 6536404498) K (test code = 4.5 mmol/L 3.5-5.0 1882505939) CL (test code = 103 mmol/L 98-108 9172423090) CO2 TOTAL (test code = 26 mmol/L 23-31 1559656845) AGAP (test code = 2-16 3900436961) BUN (test code = 51 mg/dL 7-23 H 4188781093) GLUCOSE (test code = 150 mg/dL 70-110 H 7112756731) CREATININE (test code = 0.74 mg/dL 0.60-1.25 4286211341) TOTAL BILI (test code = 1.9 mg/dL 0.1-1.1 H 8110925558) CALCIUM (test code = 8.1 mg/dL 8.6-10.6 L 9630721479) T PROTEIN (test code = 6.7 g/dL 6.3-8.2 0730572608) ALBUMIN (test code = 3.0 g/dL 3.5-5.0 L 7872090356) ALK PHOS (test code = 100 U/L 34-122 9116511801) ALTv (test code = 73 U/L 5-50 H 1742-6) AST(SGOT) (test code = 184 U/L 13-40 H 5075290910) eGFR (test code = mL/min/1.73m2 7755129612) ALLYN (test code = ALLYN) Association of [...] tests). Lab Interpretation Abnormal (test code = 00861-3) [facility] WITHOUT [id number] 10:55:51 Test Item Value Reference Range Interpretation Comments WBC (test code = See_Comment [Automated message] 6690-2) The system [employer] generated this result transmitted ref erence range: 4.20 - 1 0.70 10*3/?L. The reference range was not used to int erpret this result as normal/abnormal . RBC (test code = 789-8) See_Comment L [Au tomated message] The system [employer] generated this result transmitted ref erence range: [...] See_Comment LL [Au tomated message] The system [employer] generated this result transmitted ref erence range: 150 - 32 8 10*3/?L. The reference range was not used to int erpret this result as normal/abnormal . MPV (test code = 11.5 fL 9.8-13.0 79474-8) RDW-CV (test code = 14.9 % 12.1-15.4 788-0) RDW-SD (test code = 52.4 fL 38.5-51.6 H 13703-6) NRBC x10^3 (test code = <0.01 See_Comment [Au tomated message] 2235243015) The system [facility] generated this result transmitted ref erence range: 10*3/?L. The reference range was not used to int erpret this result as normal/abnormal . NRBC/100 WBC (test code See_Comment [Au tomated message] = 0541883415) The system [facility] generated this result transmitted ref erence range: 0.0 - 10 .0 /100 WBCs. The reference range was not used to int erpret this result as normal/abnormal . IPF % (test code = 5.0 % 1.2-10.7 Platelet count 6502016844) measured by fluorescence me thod. Lab Interpretation Abnormal (test code = 37596-1) [facility]MYCOPLASMA PNEUMONIAE ANTIBODY, [id number] 23:05:23 Test Item Value Reference Range Interpretation Comments Mycoplasma IGM (test 1.53 U/L See_Comment H INTERPR ETIVE code = 5256-3) INFORMATION: ?Mycoplasma pne umoniae Ab, IgM ?0.76 U /L or less .......... Negative: No clinically ?significant am ount of ?M. pneum oniae IgM antibody ?detected. ?0.7 7 - 0.95 U/L ...... ..... Low Positive: M . pneumoniae- ?specific IgM presumptively ?detected. Aydin ection of a ?foll ow-up sample in 1-2 ?weeks is recom mended to ?assure reactivity. ?0. 96 U/L or greater .... ... Positive: Highl y significant ?amount of M. pneumoniae- ?specific IgM a ntibody ?detected . However, low le vels ?of IgM ant ibodies may ?occasionally p ersist for more ? than 12 months post-infection. Perform ed By: [address] [address]Nrbavvmjzd Director: Makayla Salazar MD [Aut omated message] The sy stem which generated this result transmit britta reference range : <=0.76. The ref erence range was not u sed to interpret this result as normal/abnor mal. Lab Interpretation Abnormal (test code = 30263-1) [facility]2022-03-18 11:18:21 Test Item Value Reference Range Interpretation Comments MAGNESIUM (test code = 3121369961) 3.2 mg/dL 1.7-2.4 H Lab Interpretation (test code = Abnormal 81581-6) [facility]COMP. METABOLIC PANEL (86587)2021-10-07 11:18:00 Test Item Value Reference Range Interpretation Comments NA (test code = 137 mmol/L 135-145 8375202483) K (test code = 3.4 mmol/L 3.5-5.0 L 8510303355) CL (test code = 108 mmol/L 98-108 1323749427) CO2 TOTAL (test code = 20 mmol/L 23-31 L 9625998685) AGAP (test code = 2-16 7887150560) BUN (test code = 58 mg/dL 7-23 H 2847845939) GLUCOSE (test code = 145 mg/dL 70-110 H 5039188849) CREATININE (test code = 0.86 mg/dL 0.60-1.25 9359975110) TOTAL BILI (test code = 1.7 mg/dL 0.1-1.1 H 8143856355) CALCIUM (test code = 7.7 mg/dL 8.6-10.6 L 3842352672) T PROTEIN (test code = 6.1 g/dL 6.3-8.2 L 5106288058) ALBUMIN (test code = 2.8 g/dL 3.5-5.0 L 0252175259) ALK PHOS (test code = 74 U/L 34-122 9266100373) ALTv (test code = 57 U/L 5-50 H 1742-6) AST(SGOT) (test code = 163 U/L 13-40 H 9388513265) eGFR (test code = mL/min/1.73m2 1585473437) ALLYN (test code = ALLYN) Association of [...] tests). Lab Interpretation Abnormal (test code = 70683-7) [facility] WITH [id number] 11:13:03 Test Item Value Reference Range Interpretation [...] (test code = 53.1 fL 38.5-51.6 H 14501-7) RDW-CV (test code = 15.0 % 12.1-15.4 788-0) PLT (test code = See_Comment LL [Automated 777-3) message] The system which generated this result transmitted reference range : 150 - 328 10*3/?L. The reference range was not used to interpret this result as normal/abnormal . MPV (test code = 9.9 fL 9.8-13.0 78066-7) NRBC/100 WBC (test See_Comment [Automat ed code = 1641745379) message] The system which generated this result transmitted reference range : 0.0 - 10.0 /100 WBCs. The reference range was not used to interpret this result as normal/abnormal . NRBC x10^3 (test code <0.01 See_Comment [Auto mated = 9546292217) message] The system which generated this result transmitted reference range : 10*3/?L. The reference range was not used to interpret this result as normal/abnormal . GRAN MAT (NEUT) % 79.5 % (test code = 770-8) IMM GRAN % (test code 6.00 % = 2268320191) LYMPH % (test code = 5.4 % 736-9) MONO % (test code = 8.0 % 5905-5) EOS % (test code = 0.0 % 713-8) BASO % (test code = 1.1 % 706-2) GRAN MAT x10^3(ANC) 2.78 10*3/uL 1.99-6.95 (test code = 3044362473) IMM GRAN x10^3 (test 0.21 10*3/uL 0.00-0.06 H code = 2017959431) LYMPH x10^3 (test 0.19 10*3/uL 1.09-3.23 L code = 731-0) MONO x10^3 (test code 0.28 10*3/uL 0.36-1.02 L = 742-7) EOS x10^3 (test code <0.03 0.06-0.53 L = 711-2) BASO x10^3 (test code 0.04 10*3/uL 0.01-0.09 = 704-7) BANDS (test code = MARKED INCREASED A 5980995902) DOHLE BODIES (test Present A code = 7792-5) TOXIC CHANGES (test Present A code = 803-7) PLT ESTIMATE (test Critically Normal AA code = 9317-9) Decreased Lab Interpretation Abnormal (test code = 15646-4) [facility] POSITIVE BLOOD PATHOGENS DNA [id number] 22:53:38 Test Item Value Reference Range Interpretation Comments Coagulase Negative Positive Negative, See A Staphylococcus (test Comment/Narrative code = 27300-1) ALLYN (test code = ALLYN) Coagulase negative [...] contact the Antimicrobial Stewardship Program with questions.Pager: ?[phone] Testing included eleven identification and three resistance marker targets. Lab Interpretation Abnormal (test code = 40032-6) [facility]Transthoracic echo (TTE)2021-10-06 22:06:00 Test Item Value Reference Range Interpretation Comments LVIDD (test code = 4.30 cm 8661317181) IVS (test code = 1.05 cm 5305130032) Interventricular Septum 1.05 cm Diastolic Thickness by 2D (test code = 5207308) LVPWD (test code = 0.96 cm 1925957328) PW (test code = 0.96 cm 0.6-1.7 9439624360) EF(Teich) (test code = 65.60 % 9799668720) LVIDS (test code = 2.80 cm 3802928572) FS (test code = 36 % 9409617126) EF - 2D (test code = 65.60 % 58268718) LVOT diameter (test code 2.06 cm = 5291971607) ACS (test code = 1.44 cm 3073808118) Ao root annulus (test 2.44 cm code = 3075712515) Ao root diam (test code = 2.44 cm 2662727840) Aortic root (test code = 2.44 cm 6812869639) LA size (test code = 4.7 cm 6453990359) E wave decelartion time 0.25 s (test code = 0365632331) MV Peak E Manjula (test code 107.4 cm/s = 1948410454) MV Peak A Manjual (test code 100.5 cm/s = 5366187884) E/A ratio (test code = ratio 1854776508) MV Prop V (test code = 83.40 cm/s 9284655206) TR Peak Manjula (test code = 244.4 cm/s 8537770775) Triscuspid Valve mmHg Regurgitation Peak Gradient (test code = 4238541865) LVOT stroke volume (test 66.20 cm3 code = 3329015537) LVOT peak manjula (test code 85.8 cm/s = 8391021009) LVOT mn grad (test code = mmHg 0946382485) AV LVOT peak gradient mmHg (test code = 0365135284) LVOT peak VTI (test code 19.9 cm = 8864462130) LV V1 mean (test code = 55.80 cm/s 9160409548) Aortic valve mean 174.5 cm/s velocity (test code = 8303446095) Ao peak manjula (test code = 283.1 cm/s 6330847141) Ao VTI (test code = 58.8 cm 8695812548) AV area by cont VTI (test 1.1 cm2 code = 1467787407) AV area peak manjula (test 1.0 cm2 code = 4966388766) Ao max PG (test code = 32.10 mm[Hg] 8572229628) AV peak gradient (test mmHg code = 8324463330) AV valve area (test code 1.13 cm2 = 5835971754) AV mean gradient (test mmHg code = 2150826731) MR max PG (test code = 42.50 mm[Hg] 9776830237) MR max manjula (test code = 326.10 cm/s 5485891717) Mr max manjula (test code = 326.1 m/s 8651234711) Radiology Study observation (narrative) (test code = 01561-3) ALLYN (test code = ALLYN) ?Left?Ventricle: Left [...] (64 kg) 1.72 sq meters 96/64 88 [facility] [id number] 20:38:54 Test Item Value Reference Range Interpretation Comments SMILEY AM (test code = 43.5 ug/dL 4.5-23.0 H 2019859173) ALLYN (test code = ALLYN) Biotin has been reported to cause a positive bias, interpret results relative to patient's use of biotin. Lab Interpretation (test Abnormal code = 21258-8) [facility]AT[facility]IR[facility] (HCV) BY QUANTITATIVE NAAT 2021-10-06 17:22:35 Test Item Value Reference Range Interpretation Comments HCV Quantitative Not Detected Not Detected Interpretation (test code = 6810599300) ALLYN (test code = ALLYN) The Aptima HCV Quant Dx assay is an FDA-approved real-time airflight attendants supervisor-mediated amplification (TMA) test used for both detection [...] indicated. Lab Interpretation Normal (test code = 36801-3) [facility]YROID STIMULATING GERZMYF1898-72-38 15:03:33 Test Item Value Reference Range Interpretation Comments TSH (test code = See_Comment [Automated message] 8371553356) The system [employer] generated this result transmitted ref erence range: 0.45 - 4 .70 mIU/L. The refe rence range was not u sed to interpret this result as normal/abnor mal. Lab Interpretation (test Normal code = 23470-7) [facility]MAGNESIUM2022-03-17 09:12:39 Test Item Value Reference Range Interpretation Comments MAGNESIUM (test code = 1573989269) 3.1 mg/dL 1.7-2.4 H Lab Interpretation (test code = Abnormal 96221-4) [facility]. METABOLIC PANEL (93222)2021-10-06 09:12:19 Test Item Value Reference Range Interpretation Comments NA (test code = 134 mmol/L 135-145 L 9266093946) K (test code = 3.4 mmol/L 3.5-5.0 L 8446584669) CL (test code = 103 mmol/L 98-108 8643382612) CO2 TOTAL (test code = 20 mmol/L 23-31 L 8882426763) AGAP (test code = 2-16 6324635947) BUN (test code = 69 mg/dL 7-23 H 6592950495) GLUCOSE (test code = 107 mg/dL 70-110 5994940567) CREATININE (test code = 1.48 mg/dL 0.60-1.25 H 1672515591) TOTAL BILI (test code = 2.3 mg/dL 0.1-1.1 H 6706639149) CALCIUM (test code = 7.5 mg/dL 8.6-10.6 L 7793691973) T PROTEIN (test code = 6.2 g/dL 6.3-8.2 L 4211936587) ALBUMIN (test code = 2.9 g/dL 3.5-5.0 L 1830395709) ALK PHOS (test code = 53 U/L 34-122 2730170590) ALTv (test code = 47 U/L 5-50 1742-6) AST(SGOT) (test code = 208 U/L 13-40 H 5011765513) eGFR (test code = mL/min/1.73m2 0232195619) ALLYN (test code = ALLYN) Association of [...] tests). Lab Interpretation Abnormal (test code = 54441-7) [facility]AMMONIA, NLHYCH1447-85-79 09:11:49 Test Item Value Reference Range Interpretation Comments AMMONIA (test code = 2007573721) <9 9-33 L Lab Interpretation (test code = Abnormal 21734-1) [facility]HCV PTIWAJJJ6506-00-04 05:14:31 Test Item Value Reference Range Interpretation Comments HCV Ab (test code = Positive 09691-6) HCV Semi-Quantitative (test code = 52563-7) APRI (test code = 5977633580) ALLYN (test code = Positive for HCV antibody ALLYN) with a high signal to cutoff ratio (s/c). ?Supplementary test for Hepatitis C Virus RNA Real-Time PCR is recommended if clinically indicated. ?If any questions, please contact Clinical Chemistry Director oxidation engineer at [phone].APRI score < 0.5: Suggestive of little to no fibrosisAPRI score > 1.5: Suggestive of moderate to severe fibrosisAPRI score > 2.0: Highly suggestive of cirrhosis. [facility]HEPATITIS B SURFACE YAAVAGZX1871-88-39 04:32:39 Test Item Value Reference Range Interpretation Comments HBsAB (test code = Negative 2665101437) HBsAb mIU/mL Semi-Quantitative (test code = 8897176832) ALLYN (test code = Interpretation: ALLYN) ?Hepatitis B Surface Antibody ? Negative - Patient is considered to be not immune to infection with HBV. ? ? Positive - Anti-HBs detected at greater than or equal to 12 mIU/mL. ?Patient is considered to be immune to infection with HBV. ? [facility]HBC ANTIBODY (IGM & IGG)2021-10-06 04:32:39 Test Item Value Reference Range Interpretation Comments HBC (test code = 0284124302) Negative HBC Semi-Quantitative (test code = 8051631120) [facility]PROCALCITONIN2022-03-17 04:13:48 Test Item Value Reference Range Interpretation Comments Procalcitonin (test 19.95 ng/mL <0.07 H code = 2761815597) ALLYN (test code = ALLYN) INTERPRETATION OF [...] lung abscess/empyema. For further information please refer to:[email or web address] Lab Interpretation Abnormal (test code = 92798-0) [facility]HealthJENNIFER D4876-26-26 02:05:57 Test Item Value Reference Interpretation Comments Range TROPONIN I (test 0.011 ng/mL See_Comment [Automated code = 1878887810) message] The system which generated this result [...] biotin. Lab Interpretation Normal (test code = 91730-4) [facility]HealthTROPONIN [id number] 15:30:20 Test Item Value Reference Interpretation Comments Range TROPONIN I (test 0.024 ng/mL See_Comment [Automated code = 2866769618) message] The system which generated this result [...] biotin. Lab Interpretation Normal (test code = 66493-6) [facility]CB WITH JGFO1472-87-18 15:30:04 Test Item Value Reference Range Interpretation Comments WBC (test code = See_Comment H [Automated 2131-2) message] The system which generated this result transmit britta reference range : 4.20 - 10.70 10*3/?L. The reference range was not used to interpret this result as normal/abnormal . RBC (test code = See_Comment [Automated 532-8) message] The system which generated this result [...] RDW-SD (test code = 50.5 fL 38.5-51.6 00203-0) RDW-CV (test code = 14.7 % 12.1-15.4 788-0) PLT (test code = See_Comment L [Automated 777-3) message] The system which generated this result transmit britta reference range : 150 - 328 10*3/ ?L. The reference range was not u sed to interpret th is result as normal/abnormal . MPV (test code = 10.3 fL 9.8-13.0 10917-3) IPF % (test code = 3.7 % 1.2-10.7 Platelet count 7482155230) measured by fluorescence method. NRBC/100 WBC (test See_Comment [Automat ed code = 1013946648) message] The system which generated this result transmit britta reference range : 0.0 - 10.0 /100 WBCs. The reference range was not used to interpret this result as normal/abnormal . NRBC x10^3 (test code <0.01 See_Comment [Auto mated = 6563250661) message] The system which generated this result transmit britta reference range : 10*3/?L. The reference range was not used to interpret this result as normal/abnormal . GRAN MAT (NEUT) % 91.1 % (test code = 770-8) IMM GRAN % (test code 2.70 % = 4822429136) LYMPH % (test code = 1.7 % 736-9) MONO % (test code = 4.4 % 5905-5) EOS % (test code = 0.1 % 713-8) BASO % (test code = 0.0 % 706-2) GRAN MAT x10^3(ANC) 10.59 10*3/uL 1.99-6.95 H (test code = 5149484594) IMM GRAN x10^3 (test 0.31 10*3/uL 0.00-0.06 H code = 3082492140) LYMPH x10^3 (test 0.20 10*3/uL 1.09-3.23 L code = 731-0) MONO x10^3 (test code 0.51 10*3/uL 0.36-1.02 = 742-7) EOS x10^3 (test code <0.03 0.06-0.53 L = 711-2) BASO x10^3 (test code <0.03 0.01-0.09 = 704-7) BANDS (test code = MARKED INCREASED A 6403679087) DOHLE BODIES (test Present A code = [...] . Lab Interpretation Abnormal (test code = 81827-2) [facility]HealthN-TERMINAL EUC-LZP4104-36-16 15:26:58 Test Item Value Reference Range Interpretation Comments NT-proBNP (test code 3760 pg/mL See_Comment H [Autom ated = 6570034900) message] The system which generated this result transmitted reference range : <=125. The reference range was not used to interpret this result as normal/abnormal . ALLYN (test code = ALLYN) Biotin has been reported to cause a negative bias, interpret results relative to patient's use of biotin. Lab Interpretation Abnormal (test code = 50675-4) [facility]HealthD-EFRPL1401-09-40 15:20:50 Test Item Value Reference Interpretation Comments Range D-DIMER (test code = See_Comment H [Autom ated 6913184455) message] The system which generated this result [...] diagnosis. Lab Interpretation Abnormal (test code = 84104-8) [facility]. METABOLIC PANEL (39996)2021-10-05 15:18:35 Test Item Value Reference Range Interpretation Comments NA (test code = 129 mmol/L 135-145 L 7998333263) K (test code = 3.8 mmol/L 3.5-5.0 2043660548) CL (test code = 96 mmol/L 98-108 L 5909985471) CO2 TOTAL (test code = 18 mmol/L 23-31 L 3385396299) AGAP (test code = 2-16 9477269734) BUN (test code = 70 mg/dL 7-23 H 3976057150) GLUCOSE (test code = 108 mg/dL 70-110 5124874396) CREATININE (test code = 1.86 mg/dL 0.60-1.25 H 8658112612) TOTAL BILI (test code = 3.8 mg/dL 0.1-1.1 H 5976113312) CALCIUM (test code = 8.1 mg/dL 8.6-10.6 L 8267193634) T PROTEIN (test code = 7.2 g/dL 6.3-8.2 9321006927) ALBUMIN (test code = 3.5 g/dL 3.5-5.0 4351375182) ALK PHOS (test code = 77 U/L 34-122 7139384340) ALTv (test code = 35 U/L 5-50 1742-6) AST(SGOT) (test code = 141 U/L 13-40 H 9549733045) eGFR (test code = mL/min/1.73m2 9654704606) ALLYN (test code = ALLYN) Association of [...] tests). Lab Interpretation Abnormal (test code = 87286-1) [facility], JXTTIU1618-36-00 15:11:16 Test Item Value Reference Range Interpretation Comments AMMONIA (test code = 9668458694) 15 umol/L 9-33 Lab Interpretation (test code = Normal 94288-9) [facility]HealthPROTHROMBIN TIME / JVF4618-70-48 15:06:55 Test Item Value Reference Range Interpretation Comments PROTIME PATIENT (test See_Comment H [Auto mated message] code = 5964-2) The system [employer] generated this result transmitted ref erence range: 12.0 - 1 4.7 Seconds. The reference range was not used to int erpret this result as normal/abnormal . INR (test code = 6301-6) Nor mal INR <1.1; Warfarin Therap eutic range 2.0 to 3. 0 or 2.5 to 3.5, dep ending upon the indica tions. Lab Interpretation (test Abnormal code = 83209-4) [facility]HealthUrinalysis2021-09-20 14:07:00 Test Item Value Reference Range Interpretation [...] LPF 0-3 A UAHYAL) Urine Source: Urine DcuhkaDfznpcgact5512-36-05 12:17:00 Test Item Value Reference Range Interpretation [...] PCOMMENT) Hematology (test code = MC) Normal Brcvfefqw5547-67-17 11:58:00 Test Item Value Reference Range Interpretation Comments Chemistry (test code 132 mmol/L 136-145 L = NA-T) Chemistry (test code 4.7 mmol/L 3.5-5.1 N Interpr et results with = K-T) caution; hemoly sis detected at [facility] that may cause inter ference with the [...] U/L 8-55 N = ALT) Body Fluid Iopcvic9114-55-01 22:25:00 Test Item Value Reference Range Interpretation Comments Body Fluid Culture (test NO GROWTH IN 5 DAYS code = FLUIDC) Body Fluid Culture (test GS code = FLUIDC1) Body Fluid Culture (test NOS code = FLUIDC1) Reference Lab Gxjslqy5206-41-66 11:39:00 Test Item Value Reference Range Interpretation Comments Reference Lab 0.4 g/dL Not Estab. The reference intervals and Testing (test other method code = ALBFL) performancespe cifications have not been establ ished for this test. Thetest r esult should be integrated into the clinical contextfor inte rpretation.The reference inter wiona(s) and other method performa nce specificationsh ave not been established for this body fluid. The test result must beintegrated in to the clinical context for interpretation. Performed at: - [facility] xx0390 [facility] brambila [place], [place] [id number] Di naila: Willy Rousseau MD, Phone : [phone] Hematology - Pvhziz8449-97-22 08:21:00 Test Item Value Reference Range Interpretation [...] CCDIFFRBCA) Hematology - Note: The reference r tatum Fluids (test code has not be en = CCDIFFREFR) established fo r this bodyfluid. The test result must be integrated into the clinicalcontext for interpretation. Source: ASCITES FLUIDHematology - Wbitzi0182-33-83 08:21:00 Test Item Value Reference Range Interpretation Comments Hematology - Fluids 11 % (test code = CCDIFFBFNE) Hematology - Fluids 27 % (test code = CCDIFFLY) Hematology - Fluids 62 % Non-Bran tic cells (test code = CCDIFFNON) cons ist of macrophages, endothelial,his tiocytic and mesothelial cells. Source: ASCITES FLUIDHematology - Qfhbaa1963-65-15 08:21:00 Test Item Value Reference Range Interpretation Comments Hematology - Fluids Other ce lls are (test code = PATHF) macropha ges and mesothelial [place] ls. Nomalignant goergia ls are identified.LUIS CHILDS M.D. T Code: 29375 (Booth-s tained cytospin) Source: ASCITES NOAYVGezdatczj2037-39-73 05:37:00 Test Item Value Reference Range Interpretation [...] code 8.0 mg/dL 7.8-10.44 N = CA) Mgaqllzdvu8842-25-61 05:29:00 Test Item Value Reference Range Interpretation [...] 7.3 fL 7.4-10.4 L Chemistry - Body Xpshfa5655-87-67 19:14:00 Test Item Value Reference Interpretation Comments Range Chemistry - Less than Not Available Fluid Source: []The reference Body Fluids 1.0 g/dL range and other method (test code = performancespec ifications have FLUTP) not been establ ished for this bodyfluid. The test result must be integra britta into the clinicalcontext for interpretation. FLUID SOURCE: ascitesChemistry - Body Ardcjq2387-95-71 19:11:00 Test Item Value Reference Range Interpretation Comments Chemistry - Body 19 U/L Not Available The refere nce range and other Fluids (test method code = FLUAMY) performancesp ecifications have not been establ ished for this bodyfluid. The test result must be integrated i nto the clinicalcontext for interpretation. FLUID SOURCE: [employer]itesChemistry - Kebkpdfs0210-59-36 15:14:00 Test Item Value Reference Range Interpretation Comments Chemistry - Specials (test code = 5.80 ng/mL 7.0-31.4 L FOLATE) Comment please add onChemistry - Wzxaxuom9191-08-14 15:08:00 Test Item Value Reference Range Interpretation Comments Chemistry - Specials (test code = 1369 pg/mL 211-911 H VITB12) Comment please add onChemistry - Ghveecxz8131-94-45 15:08:00 Test Item Value Reference Range Interpretation Comments Chemistry - Specials (test code 2.3160 uIU/mL 0.35-4.94 N = TSH3) Comment please add ojXqljeuqtg7389-23-29 06:02:00 Test Item Value Reference Range Interpretation [...] code 54 U/L 8-55 N = ALT) Ouhocmswuh3035-53-50 05:49:00 Test Item Value Reference Range Interpretation [...] BASO#) 0.0 thou/uL 0.0-0.2 N Molecular Testing [id number] 00:59:00 Test Item Value Reference Range Interpretation Comments Molecular Testing Not Detected NotDetected Performanc e of the MM (test code = Cepheid SARS -CoV-2 has ULELL43WPKWP) only beenestab lished in nasopharyngeal swab specimens. [...] -SymptomaticSource: Nasopharyngeal SwabSymptomatic as defined by CDC: VxngrbhIocmdzhqp1197-68-02 19:31:00 Test Item Value Reference Range Interpretation Comments Chemistry (test 0.015 ng/mL < 0.028 code = TROPI-T) Reference Ra nge 0.00 - 0.028 ng /mL Negative 0.029 - 0.29 ng/mL Indetermi jackie Greater or Equa l to 0.3 ng/mL Strongly suggests RI Rwvllqfhb5479-80-73 19:02:00 Test Item Value Reference Range Interpretation Comments Chemistry (test 0.013 ng/mL < 0.028 code = TROPI-T) Reference Ra nge 0.00 - 0.028 ng /mL Negative 0.029 - 0.29 ng/mL Indetermi jackie Greater or Equa l to 0.3 ng/mL Strongly suggests RI Trbtmljgq6469-27-16 16:51:00 Test Item Value Reference Range Interpretation Comments Chemistry (test code = PHOS-T) 3.2 mg/dL 2.3-4.7 N Dweagdgex9079-38-87 16:51:00 Test Item Value Reference Range Interpretation Comments Chemistry (test code = MG) 1.6 mg/dL 1.6-2.6 N Csvhfymqqgl6710-65-74 16:07:00 Test Item Value Reference Range Interpretation [...] sec 22.9-36.1 N code = PTT) Anticoagulant? DBXMEvdllxkly5208-45-93 12:31:00 Test Item Value Reference Range Interpretation Comments Chemistry (test 0.028 ng/mL < 0.028 code = TROPI-R) Reference Ra nge 0.00 - 0.028 ng /mL Negative 0.029 - 0.29 ng/mL Indetermi jackie Greater or Equa l to 0.3 ng/mL Strongly suggests RI Rkgopablhj2291-70-85 12:31:00 Test Item Value Reference Range Interpretation [...] code = PCOMMENT) Chemistry - BNP, HgbA1c, IGGg0609-66-76 12:31:00 Test Item Value Reference Range Interpretation Comments Chemistry - BNP, HgbA1c, PTHi 63.5 pg/mL 0-100 N (test code = BNP) Jpdgomqso5778-91-66 12:27:00 Test Item Value Reference Range Interpretation [...] 58 U/L 8-55 H = ALT) Culture, Nwshe7631-29-53 15:07:00 Test Item Value Reference Range Interpretation Comments Culture, Blood (test code = BC) NG5 70454 SURGICAL PATHOLOGY, LEVEL [id number] 11:59:[address] [address] Laboratory Printed: 06/16/20 1159 [facility] DAEMPathology Page: 1 Patient: EDDI JONES Birthdate: 1955 Age/Sex: 65/M Spec#: [id number]: Kwame Zimmerman MD Specimen Date: 06/15/20 Received Date: 06/15/20 Specimen: POLYP, RECTUM CLINICAL DIAGNOSIS abdominal pain PATHOLOGIC DIAGNOSIS Large intestine, rectum, "polyp," endoscopic polypectomy: - Cauterized hyperplastic polyp. Comment: This polyp has architectural characteristics of a hyperplastic polyp, but due tocautery artifac t, the possibility of low grade adenomatous change cannot be completelyexcluded. Pathologist:Bal Michelle MD Entered by:06/16/20 - 1140 LAB.YGP PROCEDURES: 86680 GROSS DESCRIPTION A. POLYP, RECTUM The specimen is received in 10% formalin, and is labeled with the patient's name and "rectalpolyp." The specimen consists of a portion of pink-gordon soft tissue measuring 0.2 cm. Thespecimen is entirely submitted in one cassette. Dictated by: LUIS MIGUEL VELA Entered by: 06/15/20 - 1632 LAB.YGP Patient: EDDI JONES Re06/11/20Loc: 2NO MR#: [id number] CONTINUED ON NEXT PAGE Dis: 06/15/20ta: DIS IN [address] [address] Laboratory Printed: 06/16/[address] [place] [address] [facility] Page: 2 Patient: EDDI JONES [id number] (Continued) GROSS DESCRIPTION (Continued) MICROSCOPIC DESCRIPTION A microscopic examination was performed to arrive at the diagnostic conclusion reported. Signed (Electronically Signed) Bal Michelel MD 06/16/20 Patient: EDDI JONES Re06/11/20Loc: 2NO MR#: [id number] END OF REPORT Dis: 06/15/20ta: DIS [id number] SURGICAL PATHOLOGY, LEVEL PH4843-40-35 09:05:00 [place] [address] Laboratory Printed: 06/15/[address] [place] [address] DAEMPathology Page: 1 Patient: EDDI JONES Birthdate: 1955 Age/Sex: 65/M Spec#: [id number]: Kwame Zimmerman MD Specimen Date: 06/13/20 Received Date: 06/14/20 Specimen: GASTRIC BIOPSY PATHOLOGIC DIAGNOSIS Stomach, NOS, endoscopicbiopsy: - Mild reactive gastropathic changes in a background of mild chronic gastritis. - No Helicoba cter pylori organisms identified. Comment: No Helicobacter pylori organisms are identified on Diff-Quik special stainperformed with adequate control. Pathologist:Champ Cochran MD Entered by:06/15/20 0842 LAB.YGP PROCEDURES: 92021, 85921 GROSS DESCRIPTION A. GASTRIC BIOPSY The specimen is received in 10% formalin, and is labeled with the patient's name and"gastric biopsy." The specimen consists of two pink-gordon soft tissue fragments measuring 0.4cm in aggregate. The specimen is entirely submitted in one cassette. Dictated by: Kourtney Lozada Entered by: 06/14/20 1540 LAB.YGP Patient: EDDI JONES Re06/11/20Loc: 2NO MR#: [id number] CONTINUED ON NEXT PAGE Dis: Sta: ADM IN ---- -------- [address] [address] Laboratory Printed: 06/15/20 [facility] [place] DAEMPathology Page: 2 Patient: EDDI JONES [id number] (Cont inued) MICROSCOPIC DESCRIPTION A microscopic examination was performed to arrive at the diagnostic conclusion reported. Signed (Electronically Signed) Champ Cochran MD 06/15/20 Patient: EDDI JONES Re06/11/20Loc: 2NO MR#: [id number] END OF REPORT Dis: Sta: ADM INChemistry - Vpsdbxyz5294-48-35 05:38:00 Test Item Value Reference Range Interpretation Comments Chemistry - Specials (test code = 5.20 ng/mL 7.0-31.4 L FOLATE) Chemistry - Lesdulum0937-76-03 05:34:00 Test Item Value Reference Range Interpretation Comments Chemistry - Specials Greater than 1999 211-911 H (test code = VITB12) pg/mL Ojiydkkpm0510-35-79 05:17:00 Test Item Value Reference Range Interpretation [...] code 8.3 mg/dL 7.8-10.44 N = CA) Owzxpnvqyy4918-89-95 04:50:00 Test Item Value Reference Range Interpretation [...] code = BASO#) 0.0 thou/uL 0.0-0.2 N Xvnpcppnt7669-94-94 04:40:00 Test Item Value Reference Range Interpretation [...] t been validated for u se with [facility] (ove r 70 years of age), women, patients with serious comorbi d condition or pe rsons with extremes o fbody size, muscle ma ss, or nutritional sta tus. Chemistry (test code 103 mg/dL 80-115 N = GLU-T) Chemistry (test code 8.4 mg/dL 7.8-10.44 N = CA) Lecmkeqgfa7245-98-94 04:31:00 Test Item Value Reference Range Interpretation [...] code = BASO#) 0.0 thou/uL 0.0-0.2 N Belqvhxacw6803-82-05 22:52:00 Test Item Value Reference Range Interpretation [...] UAHYAL) Urine Source: Urine Clean CatchReference Lab Iviagyq4231-30-47 22:51:00 Test Item Value Reference Range Interpretation Comments Reference Lab Not Detected NotDetected Negative (Not Detected) Testing (test results do not preclude code = JCOFI33X) infectionwi th SARS-CoV-2 virus, and shou ld [...] high complexity tests. Reason for Testing: Admission MimmcptoiGybylphya9754-62-73 11:25:00 Test Item Value Reference Range Interpretation Comments Chemistry (test 0.010 ng/mL < 0.028 code = TROPI-T) Reference Ra nge 0.00 - 0.028 ng /mL Negative 0.029 - 0.29 ng/mL Indetermi jackie Greater or Equa l to 0.3 ng/mL Strongly suggests RI Huskznns4980-77-02 09:27:00 Test Item Value Reference Range Interpretation Comments Accuchek (test code = ACU) 112 mg/dL 70-100 H Zupgqtvuby1660-89-26 05:39:00 Test Item Value Reference Range Interpretation [...] (test code = Appears Decreased A PCOMMENT) Uhlzuscvu2309-19-26 05:12:00 Test Item Value Reference Range Interpretation [...] code 30 U/L 8-55 N = ALT) Apckmjkfeco4573-31-55 20:33:00 Test Item Value Reference Range Interpretation [...] 3.0 - 4.0 CRITICAL: > 4.0 Anticoagulant? WXOJRmknzznrm0874-90-40 16:15:00 Test Item Value Reference Range Interpretation Comments Chemistry (test 0.010 ng/mL < 0.028 code = TROPI-R) Reference Ra nge 0.00 - 0.028 ng /mL Negative 0.029 - 0.29 ng/mL Indetermi jackie Greater or Equa l to 0.3 ng/mL Strongly suggests RI Gqiawkjnt9794-51-03 15:16:00 Test Item Value Reference Range Interpretation [...] code 36 U/L 8-55 N = ALT) Vvaaiqfvc2923-31-54 15:16:00 Test Item Value Reference Range Interpretation Comments Chemistry (test code = DBILI) 2.8 mg/dL 0.1-0.3 H Xdtublavm2266-03-64 15:16:00 Test Item Value Reference Range Interpretation Comments Chemistry (test code = LIP) 32 U/L 8-78 N Zpxsiuazj5755-64-77 14:37:00 Test Item Value Reference Range Interpretation [...] test does the doctor want? C-REACTIVE PROTEIN (CRP)Uxyzpmziv5955-86-19 14:37:00 Test Item Value Reference Range Interpretation Comments Chemistry (test code = CRP) 0.60 mg/dL = or < 0.5 H What test does the doctor want? C-REACTIVE PROTEIN (CRP)Sgevfozqso6854-18-51 14:18:00 Test Item Value Reference Range Interpretation [...] A PCOMMENT) CT Abdomen Pelvis W Con [facility] BRYANName: EDDI JONES : 1955 [facility] Pt Name: EDDI JONES [employer] Phys: [place] [address] : 1955 Age: 65 SEX:M [phone] Exam Date: 04/11/21 Status: REG ERAcct: [id number] Loc: ERS Pt Unit #: [id number] Report #: [id number] CC: ED TEMP PROVIDER LorinMichelle nicolas DO CAT SCAN REPORT Order # Category/Exam [id number] CT/CT Abdomen Pelvis W Con ([id number]): . Results CT ABDOMEN AND PELVIS WITH IV CONTRAST 04/11/2021 CLINICAL INFORMATION: Abdominal pain and abdominal distention. Nausea and vomiting. COMPARISON: 06/11/2020 Technique: Multiple contiguous axial CTimages are obtained through the abdomen and pelvis with IV contrast. Coronal reformatted images are p rovided. FINDINGS: Lower Chest: Incomplete visualization of a moderate-sized right pleural effusion with associated passive atelectasis. Minimal atelectasis present at the left lung base Vessels: Vascular calcifications in a normal caliber abdominal aorta. Abdomen: Portal vein:Main portal vein is mildly dilated measuring 1.8 cm in diameter. Portal vein is patent.There are splenic varices present, andthe splenic vein is dilated. Gallbladder: Mildly distended but similar in size compared to prior exam. Small calcification seen in the wall of the fundus of the gallbladder and unchanged. Liver: Cirrhotic morphology of the liver is again present with small size of the liver and peripheral nodular conto ur. There is mild dilatation of the left [...] Small amount of intraperitoneal free fluid is present. Mesentery and Retroperitoneum: A few mildly prominent aortocaval lymph nodes are seen which are notenlarged by CT size criteria. Abdominal Wall: A small fat-containing umbilical hernia is present withfluid seen in the hernia defect. Pelvis: Reproductive Organs: No pelvic masses. Bladder: within normal limits. Bones: No suspicious lytic or sclerotic osseous lesions. IMPRESSION: 1. Moderate size right pleural effusion and atelectasis with minimal ascites. 2. Cirrhosis and evidence of portal hypertension with evidence of splenomegaly and splenic varices. 3. Nonspecific fluid-filled dilated loops of small bowel in the left abdomen which is probably attributable to peristalsis. Reported By: Darvni Jj MD Electronically SignedDate/Time: 04/11/21 1422 Technologist: [email or web address] Dictated Date/Time: 04/11/21 1408 Transcribed Date/Time:XR Chest [facility]able [facility] : 1955 [facility] ED[facility] [address] Phys: [place] [address] : 1955 Age: 65 SEX:M [phone] Exam Date: 10/07/20 Status: ADM IN Acct: [id number] Loc: 2SW Pt Unit #: [id number] Report #: [id number] CC: Hyacinth Gamez MD, MALIK MD IMAGING SERVICES REPORT Order # Category/Exam [id number] RAD/XR Chest 1 View Portable ([id number]): . Results Chest one view HISTORY: Pleural effusion. Follow-up. COMPARISON: 10/05/2020.FINDINGS: Cardiac silhouette remains partially obscured by right pleural fluid that now layers morethan on the prior study, where patient was likely semiupright. Overall the volume favored to be stable. Pulmonary vasculature upper limits of normal. Minimal leftward shift of the mediastinum. No evidence of pneumothorax. IMPRESSION : Large right pleural effusion and other findings are stable. Reported By: Alma Tipton MD Electronically Signed Date/Time: 10/07/20933 Technologist: Dictated Date/Time: 10/07/20931 Transcribed Date/Time:US Paracentesis with [facility] : 1955 [facility] Pt Name: ARELYEDDI ELI [employer] Phys: [place] [address] : 1955 Age: 65 SEX:M [phone] Exam Date: 10/06/20 Status: ADM IN Acct: [id number] Loc: 2SW Pt Unit #: [id number] Report #: [id number] CC: MAGALY CORONADO ULTRASOUND REPORT Order # Category/Exam [id number] ULT/US Paracentesis with Imaging ([id number]):. Results Ultrasound-guided paracentesis: HISTORY: Cirrhosis and symptomatic ascites. FINDINGS: Informed consent obtained prior to the procedure. Preprocedural imaging demonstrated intraperitoneal freefluid. An area was marked in the Right lower quadrant , and then meticulously prepped and draped in normalsterile fashion and anesthetized with 1% buffered lidocaine. With direct sonographic guidance, a 19-gauge needle and 5 [employer] catheter were advanced into the abdomen. After the return of fluid, the catheter was advanced, and the needle was removed. Approximately 3.2 L of clear brownish fluidwas aspirated. The introducer sheath was removed, and hemostasis was achieved with direct pressure. A dry sterile dressing was placed. The patient tolerated the procedure well and without immediate complication. IMPRESSION: Technically successful ultrasound- guided paracentesis. Reported By: Darvin Jj MD Electronically Signed Date/Time: 10/06/20 121 Technologist: Dictated Date/Time: 10/06/20 1216 Transcribed Date/Time:CTA Angio Chest W WO Con [facility] : 1955 Sex: [facility] Pt Name: EDDI JONES [address] Phys:[place] [address] : 1955 Age: 65 SEX:M [phone] Exam Date: 10/05/20 Status: REG ER Acct: [id number] Loc: ERS Pt Unit #: [id number] Report #: [id number] CC: Michelle Fierro DO CAT SCAN REPORT Order # Category/Exam [id number] CT/CTA Angio Chest W WO Con ([id number]): . Results CT ANGIOGRAM THORAX WITH IV CONTRAST AND 3-D RECONSTRUCTIONS CLINICAL INDICATION: Dyspnea. Patient has been feeling short of breath last few days. COMPARISON: None FINDINGS: Pulmonary arteries: Nofilling defects are seen in the pulmonary arteries to suggest a pulmonary embolus. Aorta: Vascular calcifications are seen at the aortic arch. Thoracic aorta is normal in caliber without evidence of an aortic dissection. Lungs: Large right pleural effusion is present with consolidation right lung likely attributable topassive atelectasis. Pneumonia would be difficult to entirely exclude. The left lung is clear without pulmonary nodule or consolidation. Mediastinum: No enlarged lymph nodes are seen by CT size criteria. Thyroid gland: Left lobe of thyroid gland is small in size. Visualized right lobeof thyroid gland has a grossly normal CT appearance. Osseous structures: No suspicious lytic or sclerotic osseous lesion. Chest wall: There is a circumscribed fat density lesion in the right infraspinatus muscle measuring2.3 cm most suggestive of an intramuscular lipoma. Upper abdomen: Cirrhotic morphology of the liver is present which also appears small in size. The spleen is incompletely imaged butis enlarged and measures 14.3 cm in AP dimensions. Moderate amount of ascites is partially imaged inthe visualized upper abdomen. IMPRESSION: 1. No CT evidence of a pulmonary embolus. 2. Large right pleural effusion with consolidation right lung probably attributable to passive atelectasis. Pneumoniawould be difficult to entirely exclude. 3. Moderate ascites partially imaged. 4. Cirrhotic morphology of the liver with evidence of splenomegaly. Spleen is incompletely imaged. Reported By: Darvin Jj MD Electronically Signed Date/Time: 10/05/20 1609 Technologist: TG Dictated Date/Time: 10/05/20 1559 Transcribed Date/Time:XR Chest 1 View Portable [facility] : 1955 [facility] Pt Name: EDDI GUTIERREZ [employer] Phys: [place] [address] : 1955 Age: 65 SEX:M [phone] Exam Date: 10/05/20 Status: REG ERAcct: [id number] Loc: ERS Pt Unit #: [id number] Report #: [id number] CC: Michelle Fierro DO IMAGING SERVICES REPORT Order # Category/Exam [id number] RAD/XR Chest 1 View Portable ([id number]): . Results XR Chest 1 View Portable HISTORY: Dyspnea and chest pain COMPARISON: None FINDINGS: There is a moderate-sized right pleural effusion with adjacent infiltrate/atelectatic change. The left lung is unremarkable. The heart size is normal. No pneumothoraces are seen. IMPRESSION: Moderate-sized right pleural effusion. Reported By: Timothy Salazar MD Electronically Signed Date/Time: 10/05/20 1150 Technologist: MARCIAL Dictated Date/Time: 10/05/20 1149 Transcribed Date/Time:CT Abdomen Pelvis W [facility] : 1955 [facility]: [facility] [address] Phys: Frederick Romero [place] [address] : 1955 Age: 65 SEX:M [phone] Exam Date: 06/11/20 Status: REG ER Acct: [id number] Loc: ERS Pt Unit #: [id number] Report #: [id number] CC: Frederick Capone MD CAT SCAN REPORT Order # Category/Exam [id number] CT/CT Abdomen Pelvis W Con ([id number]): . Results CT abdomen and pelvis with [...] By: Alma Tipton MD Electronically Signed Date/Time: 06/11/201617 Technologist: GUZMAN Dictated Date/Time: 06/11/20 161 Transcribed Date/Time:
[2022-07-21 05:58] LABS: Absolute Lymphocytes (CBC) 0.5 K/uL (0.7-4.9); Hematocrit 32.4 % (39.6-49.0); Lymphocytes % 6.6 % (15.3-44.8); MCV 92.3 fL (80-100); MPV 7.1 fL (7.6-11.3); RBC Red Blood Cell Count 3.51 M/uL (4.33-5.43)
[2022-07-21 06:03] LABS: Protime INR 1.3
[2022-07-21 06:20] LABS: Albumin 3.3 g/dL (3.4-5.0); Bilirubin Direct 0.5 mg/dL (0-0.2); Bilirubin Total 1.5 mg/dL (0.2-1.0); Potassium 3.8 mmol/L (3.5-5.1); Protein, Total 7.3 g/dL (6.4-8.2); Troponin High Sensitivity 28.9 pg/mL (<58.9)
[2022-07-21 06:58] LABS: SARS-COV-2 RT PCR NEGATIVE (NEGATIVE)
[2022-07-21] MEDS ORDERED: CLINDAMYCIN 600MG/D5W 50 ML IV ONE (07:54)
[2022-07-21] MEDS ORDERED: NA CHLORIDE 0.9% 250 ML ONE (07:54)
[2022-07-21] MEDS ORDERED: ONDANSETRON 4 MG/2 ML VIAL ONE ×2 (07:54→10:34)
--- NOTE | 2022-07-21 11:26 | ER ---
Nurse's Notes [facility] Name: Martin Jones Age: 67 yrs Sex: Male : 1955 Arrival Date: 07/21/2022 Time: 05:15 Bed 5 Private MD: Diagnosis: Cellulitis of other parts of limb;Thrombocytopenia, unspecified Presentation: 07/21 05:32 Chief complaint: Patient's son or daughter states: " He fell into the [employer] tree on tw5 the , I did my best to bandage him up. Just tonight I noticed that his arm was getting red and swollen and he started to run a fever.". Coronavirus screen: Vaccine status: Patient reports being unvaccinated. Ebola Screen: Patient negative for fever greater than or equal to 101.5 degrees Fahrenheit, and additional compatible Ebola Virus Disease symptoms Patient denies exposure to infectious person. Patient denies travel to an Ebola-affected area in the 21 days before illness onset. Initial Sepsis Screen: Does the patient meet any 2 criteria? Does the patient have a suspected source of infection? Yes: Skin breakdown/wound. Risk Assessment: Do you want to hurt yourself or someone else? Patient reports no desire to harm self or others. Onset of symptoms was July 21, 2022. 05:32 Method Of Arrival: Ambulatory tw5 05:32 Acuity: CHRIS 3 tw5 Triage Assessment: 05:35 General: Appears in no apparent distress. Behavior is calm, cooperative, appropriate tw5 for age. Pain: Complains of pain in dorsal aspect of right forearm Pain currently is 7 out of 10 on a pain scale. Respiratory: Reports shortness of breath on exertion Onset: The symptoms/episode began/occurred gradually, the patient has mild shortness of breath. Historical: - Allergies: 05:35 No Known Allergies; tw5 - PMHx: 05:35 cirrhosis of liver; HEP C; Pancreatitis; tw5 - PSHx: 05:35 lung; tw5 - Immunization history:: Flu vaccine is not up to date. - Social history:: Smoking status: Patient reports the use of cigarette tobacco products, smokes one-half pack cigarettes per day. Screenin:36 [facility] ED Fall Risk Assessment (Adult) History of falling in the last 3 months, tw5 including since admission Yes- single mechanical fall (1 pt). Abuse screen: Denies threats or abuse. Denies injuries from another. Nutritional screening: No deficits noted. Tuberculosis screening: No symptoms or risk factors identified. Assessment: 05:49 General: Appears comfortable, Behavior is calm, cooperative. Neuro: Level of ha1 Consciousness is awake, alert, obeys commands, Oriented to person, place, time, situation. Cardiovascular: Capillary refill < 3 seconds Patient's skin is warm and dry. Respiratory: Airway is patent Respiratory effort is even, unlabored, Respiratory pattern is regular, symmetrical. GI: No signs and/or symptoms were reported involving the gastrointestinal system. : No signs and/or symptoms were reported regarding the genitourinary system. EENT: No deficits noted. No signs and/or symptoms were reported regarding the EENT system. Derm: redness on the arms. Musculoskeletal: Circulation, motion, and sensation intact. Range of motion: intact in all extremities. 10:05 Reassessment: Patient appears in no apparent distress at this time. PLATELET db ADMINISTRATION STARTED. Pain: Complains of pain in right arm. Cardiovascular: Rhythm is sinus rhythm. Respiratory: Breath sounds are clear bilaterally. 11:25 Reassessment: Platelets complete, awaiting d/c home. ph Vital Signs: 05:16 BP 115 / 65; Pulse 78; Resp 18; Pulse Ox 97% on R/A; ha1 05:32 BP 115 / 65; Pulse 78; Resp 18; Temp 99.2; Pulse Ox 97% on R/A; Weight 70.76 kg; Height tw5 5 ft. 6 in. (167.64 cm); Pain 7/10; 07:06 Pulse 82; Resp 21 S; Pulse Ox 96% on R/A; as6 08:02 BP 120 / 62; Pulse 85; Resp 18; Pulse Ox 95% on R/A; ph 09:00 BP 118 / 75; Pulse 86; Resp 16; Pulse Ox 97% on R/A; ph 10:00 BP 105 / 66; Pulse 83; Resp 16; Pulse Ox 96% on R/A; ph 11:00 BP 99 / 50; Pulse 85; Resp 18; Pulse Ox 96% on R/A; ph 11:47 BP 103 / 74; Pulse 87; Resp 18; Temp 98.0; Pulse Ox 99% on R/A; ph 05:32 Body Mass Index 25.18 (70.76 kg, 167.64 cm) tw5 05:32 reported fever of 102 at home tw5 ED Course: 05:15 Patient arrived in ED. es 05:18 Kalyn Alejo MD is Attending Physician. sp3 05:32 Yamile Castellon is Primary Nurse. tw5 05:35 Triage completed. tw5 05:35 Arm band placed on. tw5 05:52 Basic Metabolic Panel Sent. as7 05:52 CBC with Diff Sent. as7 05:52 LFT's Sent. as7 05:52 NT PRO-BNP Sent. as7 05:52 PT-INR Sent. as7 05:52 Troponin HS Sent. as7 05:52 Blood Culture Adult (2) Sent. as7 06:00 Notified ED physician of a critical lab result(s). plt 43. tw5 06:07 XRAY Chest (1 view) In Process Unspecified. EDMS 06:16 COVID-19/FLU A+B Sent. as7 07:37 Attending Physician role handed off by Kalyn Alejo MD rn 07:37 Jhonatan Rudolph MD is Attending Physician. rn 07:45 Initial lab(s) drawn, by ri, sent to lab. Second set of blood cultures drawn T\\T\\S ph collected, blood band applied to patient. Inserted saline lock: 22 gauge in left hand, using aseptic technique. 08:02 Patient has correct armband on for positive identification. Placed in gown. Bed in low ph position. Call light in reach. Side rails up X2. Client placed on continuous cardiac and pulse oximetry monitoring. NIBP monitoring applied. 11:45 IV discontinued, intact, bleeding controlled, No redness/swelling at site. Pressure rs5 dressing applied. 11:50 No provider procedures requiring assistance completed. ph Administered Medications: 08:01 Drug: Clindamycin 600 mg Route: IVPB; Infused Over: 30 mins; Site: left hand; ph 08:35 Follow up: Response: No adverse reaction; IV Status: Completed infusion ph 08:01 Drug: Zofran (Ondansetron) 4 mg Route: IVP; Site: left hand; ph 09:43 Follow up: Response: No adverse reaction db 10:47 Drug: Zofran (Ondansetron) 4 mg Route: IVP; Site: left antecubital; db 11:52 Follow up: Response: No adverse reaction; Nausea is decreased ph Medication: 08:02 VIS not applicable for this client. ph 10:15 Blood products: Platelets X 1 unit given. ph Outcome: 11:26 Discharge ordered by . rn 11:52 Discharged to home ambulatory, with family. ph 11:52 Condition: good 11:52 Discharge instructions given to patient, family, Instructed on discharge instructions, follow up and referral plans. medication usage, Demonstrated understanding of instructions, follow-up care, medications, Prescriptions given X 2. 11:53 Patient left the ED. ph Signatures: Dispatcher [employer] EDEveline Moreland Roman, MD MD rn Hall, Patricia, RN RN Kalyn Alejo MD MD sp3 Yamile Castellon tw5 Markus Malik RN RN as6 Fabby Mendenhall RN RN ha1 Kaylan Vicente RN RN db Anthony Morales rs5 Ting Adkins as7 Corrections: (The following items were deleted from the chart) 10:49 10:05 Pain: Denies pain. db db
--- NOTE | 2022-07-21 11:26 | EDPHYS ---
Physician Documentation [facility] Name: Martin Jones Age: 67 yrs Sex: Male : 1955 Arrival Date: 07/21/2022 Time: 05:15 Bed 5 Private MD: ED Physician Jhonatan Rudolph HPI: 07/21 06:18 This 67 yrs old Male presents to ER via Ambulatory with complaints of Arm Problem, sp3 Breathing Difficulty. 06:18 67-year-old male with a history of liver cirrhosis, hepatitis C, history of sp3 pancreatitis, presents to the ED with right arm pain and discoloration as well as 102 F reported fever. All of this started over the last 1 to 2 days with a fever and patient's arm has been painful in swelling along with the redness since where he had a injury while adjusting the [place] tree. Denies any upper respiratory symptoms other than mild body aches. He also denies headache, neck pain, chest pain, shortness of breath nausea, vomiting, diarrhea. He does have abdominal distention and has regular paracentesis performed for which she has 1 scheduled for today at 7 AM. He likely will not make it.. Historical: - Allergies: 05:35 No Known Allergies; tw5 - PMHx: 05:35 cirrhosis of liver; HEP C; Pancreatitis; tw5 - PSHx: 05:35 lung; tw5 - Immunization history:: Flu vaccine is not up to date. - Social history:: Smoking status: Patient reports the use of cigarette tobacco products, smokes one-half pack cigarettes per day. ROS: 06:19 Eyes: Negative for injury, pain, redness, and discharge, ENT: Negative for injury, sp3 pain, and discharge, Neck: Negative for injury, pain, and swelling, Cardiovascular: Negative for chest pain, palpitations, and edema, Respiratory: Negative for shortness of breath, cough, wheezing, and pleuritic chest pain, Back: Negative for injury and pain, Skin: Negative for injury, rash, and discoloration, Neuro: Negative for headache, weakness, numbness, tingling, and seizure, Psych: Negative for depression, anxiety, suicide ideation, homicidal ideation, and hallucinations, Allergy/Immunology: Negative for hives, rash, and allergies, Endocrine: Negative for neck swelling, polydipsia, polyuria, polyphagia, and marked weight changes. 06:19 All other systems are negative. Exam: 06:20 Constitutional: This is a well developed, well nourished patient who is awake, alert, sp3 and in no acute distress. Head/Face: Normocephalic, atraumatic. Eyes: Pupils equal round and reactive to light, extra-ocular motions intact. Lids and lashes normal. Conjunctiva and sclera are non-icteric and not injected. Cornea within normal limits. Periorbital areas with no swelling, redness, or edema. ENT: Nares patent. No nasal discharge, no septal abnormalities noted. External auditory canals are clear. Oropharynx with no redness, swelling, or masses, exudates, or evidence of obstruction, uvula midline. Mucous membranes moist. Neck: Trachea midline, no thyromegaly or masses palpated, and no cervical lymphadenopathy. Supple, full range of motion without nuchal rigidity, or vertebral point tenderness. No Meningismus. Chest/axilla: Normal chest wall appearance and motion. Nontender with no deformity. No lesions are appreciated. Cardiovascular: Regular rate and rhythm with a normal S1 and S2. No gallops, murmurs, or rubs. Normal PMI, no JVD. No pulse deficits. Respiratory: Lungs have equal breath sounds bilaterally, clear to auscultation and percussion. No rales, rhonchi or wheezes noted. No increased work of breathing, no retractions or nasal flaring. Neuro: Awake and alert, GCS 15, oriented to person, place, time, and situation. Cranial nerves II-XII grossly intact. Motor strength 5/5 in all extremities. Sensory grossly intact. Cerebellar exam normal. Normal gait. Psych: Awake, alert, with orientation to person, place and time. Behavior, mood, and affect are within normal limits. 06:20 Abdomen/GI: Abdomen is distended with mild fluid wave. He is set for paracentesis later today.. 06:20 Musculoskeletal/extremity: Large area of redness with possible dried blood as well as inflammation is present on the right forearm area and approximately 3% of body surface area.. 06:26 ECG was reviewed by the Attending Physician. KG demonstrates normal sinus rhythm at 87 sp3 bpm with normal intervals, normal QRS, normal axis, nonspecific diffuse ST/T segments without evidence of acute ischemia. Vital Signs: 05:16 BP 115 / 65; Pulse 78; Resp 18; Pulse Ox 97% on R/A; ha1 05:32 BP 115 / 65; Pulse 78; Resp 18; Temp 99.2; Pulse Ox 97% on R/A; Weight 70.76 kg; Height tw5 5 ft. 6 in. (167.64 cm); Pain 7/10; 07:06 Pulse 82; Resp 21 S; Pulse Ox 96% on R/A; as6 08:02 BP 120 / 62; Pulse 85; Resp 18; Pulse Ox 95% on R/A; ph 09:00 BP 118 / 75; Pulse 86; Resp 16; Pulse Ox 97% on R/A; ph 10:00 BP 105 / 66; Pulse 83; Resp 16; Pulse Ox 96% on R/A; ph 11:00 BP 99 / 50; Pulse 85; Resp 18; Pulse Ox 96% on R/A; ph 11:47 BP 103 / 74; Pulse 87; Resp 18; Temp 98.0; Pulse Ox 99% on R/A; ph 05:32 Body Mass Index 25.18 (70.76 kg, 167.64 cm) tw5 05:32 reported fever of 102 at home tw5 MDM: 05:29 Patient medically screened. sp3 06:23 Data reviewed: vital signs, nurses notes. ED course: 67-year-old male with right arm sp3 pain and discoloration. Differential diagnosis includes cellulitis, bleeding secondary to thrombocytopenia, and/or combination. I met suspicious for DVT or other emergent pathology. Patient is not septic and WBC count is normal. We will transfuse platelets and discharge patient on p.o. antibiotics as well as 1 dose IV in the emergency department prior to discharge. Flu and COVID are also pending. However I do not believe patient has a primary respiratory syndrome.. 11:24 Differential diagnosis: contusion, cellulitis. Counseling: I had a detailed discussion rn with the patient and/or guardian regarding: the historical points, exam findings, and any diagnostic results supporting the discharge/admit diagnosis, lab results, the need for outpatient follow up, to return to the emergency department if symptoms worsen or persist or if there are any questions or concerns that arise at home. Response to treatment: the patient's symptoms have mildly improved after treatment, and as a result, I will discharge patient. Special discussion: I discussed with the patient/guardian in detail that at this point there is no indication for admission to the hospital. It is understood, however, that if the symptoms persist or worsen the patient needs to return immediately for re-evaluation. ED course: Signed out to me by Dr. Alejo pending platelet transfusion, plan at shift change was to dc home with abx. . 07/21 05:20 Order name: Basic Metabolic Panel; Complete Time: 09:04 sp3 07/21 05:20 Order name: CBC with Diff; Complete Time: 06:06 sp3 07/21 05:20 Order name: LFT's; Complete Time: 09:04 sp3 07/21 05:20 Order name: NT PRO-BNP; Complete Time: 09:04 sp3 07/21 05:20 Order name: PT-INR; Complete Time: 06:06 sp3 07/21 05:20 Order name: Troponin HS; Complete Time: 09:04 sp3 07/21 05:20 Order name: XRAY Chest (1 view) 3 07/21 05:37 Order name: Blood Culture Adult (2) tw5 07/21 06:07 Order name: COVID-19/FLU A+B; Complete Time: 09:04 sp3 07/21 06:25 Order name: Type And Screen 3 07/21 08:29 Order name: ABO/RH no charge; Complete Time: 09:04 EDMS 07/21 08:36 Order name: Platelets, Leukored Pheresis EDCO 07/21 05:20 Order name: EKG; Complete Time: 05:21 sp3 07/21 05:20 Order name: Cardiac monitoring; Complete Time: 05:56 sp3 07/21 05:20 Order name: EKG - Nurse/Tech; Complete Time: 06:08 sp3 07/21 05:20 Order name: IV Saline Lock; Complete Time: 05:51 sp3 07/21 05:20 Order name: Labs collected and sent; Complete Time: 05:51 sp3 07/21 05:20 Order name: O2 Per Protocol; Complete Time: 05:56 sp3 07/21 05:20 Order name: O2 Sat Monitoring; Complete Time: 05:56 sp3 07/21 06:25 Order name: Transfuse: Platelets; Complete Time: 10:48 sp3 Administered Medications: 08:01 Drug: Clindamycin 600 mg Route: IVPB; Infused Over: 30 mins; Site: left hand; ph 08:35 Follow up: Response: No adverse reaction; IV Status: Completed infusion ph 08:01 Drug: Zofran (Ondansetron) 4 mg Route: IVP; Site: left hand; ph 09:43 Follow up: Response: No adverse reaction db 10:47 Drug: Zofran (Ondansetron) 4 mg Route: IVP; Site: left antecubital; db 11:52 Follow up: Response: No adverse reaction; Nausea is decreased ph Disposition Summary: 07/21/22 11:26 Discharge Ordered Location: Home rn Problem: new rn Symptoms: have improved rn Condition: Stable rn Diagnosis - Cellulitis of other parts of limb rn - Thrombocytopenia, unspecified rn Followup: rn - With: Private Physician - When: As needed - Reason: Recheck today's complaints, Re-evaluation by your physician Discharge Instructions: - Discharge Summary Sheet rn - Cellulitis, Adult rn - Thrombocytopenia rn - Platelet Transfusion rn Forms: - Medication Reconciliation Form rn - Thank You Letter rn - Antibiotic government professor - Prescription Opioid Use rn Prescriptions: - ondansetron 4 mg Oral - take 4 milligrams by SUBLINGUAL route every 8 hours; 15 tablet; Refills: 0, rn Product Selection Permitted - Clindamycin HCl 300 mg Oral Capsule - take 1 capsule by ORAL route every 6 hours for 10 days; 40 capsule; Refills: 0, rn Product Selection Permitted Signatures: Dispatcher [employer] Jhonatan Johnson MD MD rn Hall, Patricia, RN RN Kalyn Salazar MD MD sp3 Yamile Castellon tw5 Kaylan Vicente, RN RN db
[2022-07-21 12:05] VITALS: BP 103/74; TEMP 98; O2SAT 99
--- NOTE | 2022-07-21 17:39 | RAD REPORT ---
EXAM DESCRIPTION: RAD - Chest Single View - 07/21/2022 6:05 am\ CLINICAL HISTORY: The patient is 67 years old and is Male; SOB TECHNIQUE: Frontal view of the chest. COMPARISON: No relevant prior studies available. FINDINGS: Lungs: Prominent interstitial markings which may indicate interstitial edema. Pleural space: Blunting of the right costophrenic angle which may indicate a right pleural effus ion. No pneumothorax. Heart: Unremarkable. Mediastinum: Unremarkable. Bones/joints: Unremarkable. IMPRESSION: 1. Prominent interstitial markings which may indicate interstitial edema. 2. Blunting of the right costophrenic angle which may indicate a right pleural effusion. Electronically signed by: Champ Smith MD 07/21/2022 6:59 AM TIME STUDY OBSERVER Due to temporary technical issues with the PACS/Fluency reporting system, reports are being signed by the in house radiologists without review as a courtesy to insure prompt reporting. The interpreting radiologist is fully responsible for the content of the report.
--- NOTE | 2022-07-23 19:09 | EKG ---
Test Date: 2022-07-21 Test Time: 06:04:33 Cigarette Tester: NANDO MEASUREMENT RESULTS: Intervals: Rate: 87 WA: 138 QRSD: 102 QT: 370 QTc: 445 [place]: P: 55 WA: 138 QRS: 53 T: 92 INTERPRETIVE STATEMENTS: Normal sinus rhythm ST elevation, consider inferolateral injury or acute infarct ACUTE [place] / STEMI Abnormal ECG Compared to ECG 05/23/2022 13:05:50 ST (T wave) deviation now present Myocardial infarct finding now present Electronically Signed On 07-23-22 19:08:43 EMT by Loyd Esparza
== END 2022-07-21 11:53 | disposition home or self-care (01) ==
LOC: ER 05:08
DX: D69.6 Thrombocytopenia, unspecified (principal); L03.113 Cellulitis of right upper limb; F17.210 Nicotine dependence, cigarettes, uncomplicated; Z20.822 Contact with and (suspected) exposure to COVID-19; K74.60 Unspecified cirrhosis of liver
CPT/HCPCS: 93005; 87040 ×2; 85025; 80048; 36415; 86900; 86850; 87205 ×3; 85610; 86901; 80076; 84484; 83880; 0240U; 71045; 36430; 99285; J7050; J2405 ×2; P9073; 87077; 87186

== ENCOUNTER 2022-08-16 08:37 | Day surgery (SDC) | payer OTHER ==
[2022-08-16 09:38] VITALS: BP 122/79; TEMP 98; O2SAT 97; BMI 25.8
[2022-08-16 09:39] LABS: Protime INR 1.14
--- NOTE | 2022-08-16 10:47 | RAD REPORT ---
EXAM DESCRIPTION: US - Abdomen Exam Limited - 08/16/2022 10:22 am CLINICAL HISTORY: Abdominal pain and distention . FINDINGS: The patient presented for a paracentesis. Sonographic evaluation does not demonstrate asci gumaro. Gallbladder is distended IMPRESSION: No ascites. Paracentesis not performed Gallbladder distention. Nuclear Medicine hida scan may be helpful for further evaluation
== END 2022-08-16 10:39 | disposition home or self-care (01) ==
LOC: DS 08:37
PROVIDERS: ATTEND Internal Medicine Gastroenterology
DX: R18.8 Other ascites (principal); K74.60 Unspecified cirrhosis of liver; Z53.8 Procedure and treatment not carried out for other reasons
CPT/HCPCS: 36415; 76705; 85610; 85730

== ENCOUNTER 2022-11-16 05:36 | Observation (INO) | payer OTHER ==
--- OUTSIDE RECORDS SUMMARY | 2022-11-16 05:51 | XMS REPORT | Continuity of Care Document ---
:1955 Author Organization [facility] t Address [address] [facility]. [address] [place] [address] Care Team Providers Name Role Phone Miles Medina Primary Care Physician Hyacinth Gamez Attending Clinician Unavailable Lexis Bird MA Attending Clinician Unavailable Yue Brower MA Attending Clinician Unavailable Cyrus Donahue MA Attending Clinician Unavailable Jose GONZALEZ, Echo Attending Clinician Unavailable Mariam GONZALEZ, Jacinta Nicolas Attending Clinician Unavailable Cristela Villalobos Attending Clinician Elly Solorzano Attending Clinician [phone] Pob, [facility] Attending Clinician Unavailable Eric Hurt MD Attending Clinician ERIC HURT Attending Clinician Unavailable Doctor Unassigned, [place] Attending Clinician Unavailable Marylin MCKENZIE, Tian Attending Clinician Unavailable JHON AGUIRRE Attending Clinician Unavailable Jhon Aguirre MD Attending Clinician Araceli Amato MD Attending Clinician Scarlet Fritz MD Attending Clinician ANNETTE ELI Attending Clinician Unavailable Cleve WELCH, Mary Ware Attending Clinician Kaye Baez MD Attending Clinician VIVI BELL Attending Clinician Unavailable CHON ROLON Attending Clinician Unavailable Ray YOOC, Vivi Atkins Attending Clinician [phone] Juan GONZALEZ, Sulma Hong Attending Clinician Unavailable ARACELI AMATO Attending Clinician Unavailable 3, [facility] Terrence Mr Attending Clinician Unavailable Gilberto WELCH, Justin Flores Attending Clinician Vivi Bell PA-C Attending Clinician [facility] Attending Clinician Unavailable Rudi BARRIOS, Dk Attending Clinician Unavailable Luis Gamez MD Attending Clinician Rios Arndt LCSW Attending Clinician Unavailable Yady Caldwell Attending Clinician Unavailable Kamala Lobo RN Attending Clinician Unavailable Zulma MCKENZIE, Manuel Lakhani Attending Clinician [phone] Aida MCKENZIE, Keyana Resendiz Attending Clinician [phone] Tk Rabago MD Attending Clinician [phone] Suyapa Webb MD Attending Clinician SUYAPA WEBB Attending Clinician Unavailable Milena Swartz MD Attending Clinician Renetta Burnette CRNA Attending Clinician [phone] SCARLET FRITZ Attending Clinician Unavailable KIRT JIANG Attending Clinician Unavailable Gwendolyn Zhu Attending Clinician Unavailable Jaison Giraldo Attending Clinician Unavailable MADDIE MIDDLETON Attending Clinician Unavailable Mary Kidd Attending Clinician Unavailable Tracy GONZALEZ, Sadie Attending Clinician Unavailable Babatunde Aragon DO Attending [...] Expiration Date S alejandra MEDICARE PART A [id number] 2021 \\T\\ B - MEDICARE 00:00:00 YOSEF DE LA ROSA - [id number] 2021 [facility] SUPP 00:00:00 Problems Condition Condition Condition Status Onset Resolution Last Treating Co mments Source Name Details Category Date Date Treatment Clinician Date Frailty Frailty Disease [facility] 00 [place] Tobacco Tobacco Disease Active [facility] abuse abuse -21 [facility] 00:[facility]: Medical 00 [place] Sarcopenia Sarcopenia Disease Active [facility] 00:[facility]: Medical 00 [place] COPD COPD Disease Recurre Last [facility] (chronic (chronic nce 8-17 [facility] Ruth es obstructiv obstructiv 00:00: t & Plan: Medical e e 00 [facility] pulmonary pulmonary g of this disease) disease) note might be different from the original. He has a history of lung surgery (s/p thoracoto my in September 2021 at [facility]), asthma, and COPD. He will require Pulmonolo gy clearance prior to listing for liver transplan t. Screening Screening Disease Recurre [facility] for for nce 8[facility]17 [facility] varices varices 00:00: Medical 00 [place] Pre-transp Pre-transp Disease Active Last [facility] lant lant 8-17 [facility] evaluation evaluation 00:00: t & Plan: Medical for liver for liver [address] [place] [address] enter transplant transplant g of this note might be different from the original. He is an acceptabl e candidate for liver transplan t pending further testing and formal review at [facility]. History of History of Disease Active [facility] hepatitis hepatitis 03-08 [facility] C C 00:00: Medical 00 [place] History of History of Disease Active [facility] thoracotom thoracotom 03-08 Lucretia kes y y 00:00: Medical 00 [place] Insomnia Insomnia Disease Active [facility] 00:[facility]: Medical 00 [place] Incarcerat Incarcerat Disease Active Last [facility] ed ed 02-10 Assessmen [place] umbilical umbilical 00:00: t & Plan: M edical hernia hernia 00 [facility] g of this note might be different from the original. He is s/p umbilical hernia repair with ACS on 02/13/22. Remains with bella in place. Continue to follow up as scheduled . Other Other Disease Recurre Last [facility] cirrhosis cirrhosis nce 02-09 Assessmen L ukes of liver of liver 00:00: t & Plan: Med ical [address] [place] [address] g of this note might be different from the original. 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 MELD is 10. Continue with evaluatio n for liver transplan t. Portal Portal Disease Recurre [facility] hypertensi hypertensi nce 02-09 Lucretia kes on on 00:00: Medical 00 [place] Hepatic Hepatic Disease Recurre [facility] encephalop encephalop nce 02-09 [facility]ia kes athy athy 00:00: Medical 00 [place] Other Other Disease Active Last [facility] ascites ascites 02-09 [facility] 00:00: t & Plan: Medical [address] [place] [address] g of this note might be different from the original. He has a history of ascites requiring large volume paracente sis. He appears mildly distended in clinic today. Continue to follow up with hepatolog y for managemen t and treatment . Alcohol Alcohol Disease Active Last [facility] use use 02-09 [facility] 00:00: t & Plan: Medical [address] [place] [address] g of this note might be different from the original. Denies recent alcohol use. PETH negative on 02/16/22. Generalize Generalize Disease Active [facility] d d 02-09 [facility] abdominal abdominal 00:00: Medi lino pain pain 00 Center Acute Acute Disease Active [facility] abdominal abdominal 7-21 Luke s pain pain 00:00: [place] [address] Center Nonrheumat Nonrheumat Disease Active U nivers ic aortic ic aortic 3-18 ity of valve valve 00:00: [place] [facility] NS[facility] NSVT Disease Active Univers (nonsustai (nonsustai 3-17 it y of barb barb 00:00: [place] ventricula ventricula 00 Me dical r r Branch tachycardi tachycardi a) a) PAC PAC Disease Active Univers (premature (premature 3-17 it y of atrial atrial 00:00: [place] contractio contractio 00 Me dical n) n) Branch SUKHDEEP (acute SUKHDEEP (acute Disease Active U nivers kidney kidney 3-17 ity of injury) injury) 00:00: [place] 00 Medical Branch Chronic Chronic Disease Active Univers diastolic diastolic 3-17 ity of congestive congestive 00:00[place] heart heart 00 Medical failure failure Branch Other Other Disease Active Univers cirrhosis cirrhosis 3-17 ity of of liver of liver 00:00: [place] 00 Medical Branch Pleural Pleural Disease Active Univers effusion effusion 3-17 ity of 00:00: [place] [address] Medical Branch Elevated Elevated Disease Active Unive rs brain brain 3-17 ity of natriureti natriureti 00:00[place] c peptide c peptide 00 Medi lino (BNP) (BNP) Branch level level Pneumonia Pneumonia Disease Active Uni vers 3-16 ity of 00:00: [place] 00 Medical Branch Allergies, Adverse Reactions, Alerts Allergy Allergy Status Severity Reaction(s) Onset Inactive Treating Comm ents Source Name Type Date Date Clinician ADHESIVE DRUG Active Med Other-Cmnt 2021-07 Univ ers TAPE-EN 0-06 ity of ICONES 00:00: [place] 00 Medical Branch Adhesive Propensi Active Other - See 2021-07 Patient Univers Tape-En ty to comments 0-06 gets skin ity of icones adverse 00:00: tears [place] reaction 00 from tape Medic al s other Branch than paper No Known DA Active U [facility] Allergie 3-22 Clear s 00:00: [address] No Known DA Active U [facility] Allergie [facility]-16 [facility] 00[facility] St 00 Reid Hendrikcson No Known DA Active U 2019-[address] [facility] Allergie 1-20 [facility] s 00:00: St 00 Reid Hendrickson NO KNOWN Drug Active Univers ALLERGIE Class ity of S [facility] [place] NO KNOWN Allergy Active [facility] ALLERGIE [facility] Social History Social Habit Start Date Stop Date Quantity Comments Source History of tobacco Cigarette Smoker University of use [facility] [place] History SDOH [facility] Alcohol Comment Medical C enter History SDOH [facility] Alcohol Std Drinks Medica l Center History SDOH [facility] Alcohol Binge Medical [address] ter Alcohol intake 2022-08-30 2022-08-[address] Ruth es 00:00:00 00:00:00 non-drinker Medical Cente r (finding) Exposure to 2022-06-12 2022-06-22 Not sure [facility] [place] [facility]-CoV-2 (event) 00:00:00 11:34:00 [facility] [place] Cigarettes smoked 2022-06-22 2022-06-22 Medardo ity of current (pack per 00:00:00 00:00:00 [facility] ) - Reported Branch Tobacco use and 2022-02-09 2022-02-09 [address] [facility] exposure 00:00:00 00:00:00 non-user Medical Center History SDOH 2022-02-09 2022-02-[address] [facility] Alcohol Frequency 00:00:00 00:00:00 [facility] Tobacco Comment 2022-02-09 2022-02-09 [address] [facility] 00:00:00 00:00:00 day [facility] Center Sex Ass[birth year] [facility] llege of 00:00:00 00:00:00 Medicine Smoking Status Start Date Stop Date Source Tobacco smoking consumption [facility] unknown Smokes tobacco daily 2022-02-09 00:00:00 [facility] Medications Ordered Filled Start Stop Current Ordering Indication Dosage Frequency Signature Comments Components Source Medication Medication Date Date Medication? Clinician (SIG) Name Name AMILoride Yes Other TAKE 1 [facility] ([place]) 5 3-07 cirrhosis TABLET BY [facility] MG tablet 00:00: of liver MOUTH Med ical 00 (HCC) EVERY DAY Center FOR 30 DAYS albuterol 2022-0 Yes 1{puff} Inhale [address] HFA 2-08 puff by Lukes (VENTOLIN 08:55: mouth via Med ical HFA) 90 33 inhaler Center mcg/actuati every 6 on inhaler (six) hours as needed for Wheezing. rifAXIMin 2022-0 Yes 550mg Q.5D Take [address] (Xifaxan) 2-08 mg by [facility] 550 mg Tab 08:55: mouth 2 Medi lino 33 (two) Center times daily. ergocalcife 202-0 2023- Yes [id number] Q7D Take [address] rol 2-08 04-27 capsule [facility] (Vitamin 00:00: 23:59 (50,000 Medic al D2) 1,250 00 :00 Units Center mcg (50,000 total) by unit) mouth once capsule a week for 12 doses. hydrOXYchlo 0 Yes Take by [facility] roQUINE 1-30 mouth. [facility]ukes (PLAQUENIL) 00:00: Medica l 200 mg 00 Center tablet predniSONE 0 Yes Take by [facility] (DELTASONE) 1-30 mouth. [facility] 5 MG tablet 00:00: Medica l 00 Center SEROqueL 25 2022-0 Yes Take by [facility] mg tablet 1-24 mouth. [facility]ukes 00:00: Medical 00 Center lactated 2021-07 Yes 1000mL at 42 Univer [...] Yes 4mg 4 mg, Slow Univers (ZOFRAN 2-07 IV Push, ity of (PF)) 17:14: PRN, 1 [place] injection 4 55 dose, Medical mg Starting Branch on Sun06/28/22 at 1114, Until Discontinu ed, Routine, Nausea and Vomiting (N/V), PACU ondansetron 2021-07- No 4mg 4 mg, Slow Univers (ZOFRAN 08-29 IV Push, ity of (PF)) 17:14: 19:16 PRN, 1 [place] injection 4 55 :17 dose, Medical mg Starting Branch on Sun06/28/22 at 1114, Until Sun06/28/22 at 1316, Routine, Nausea and Vomiting (N/V), PACU dexamethaso 2021-07- No PRN, Unive rs ne 08-29 Starting ity of (DECADRON 15:51: 16:40 on Sun [place] PHOSPHATE) 00 :12 06/28/22 at [facility] ical injection 0951, Branch Until Sun06/28/22 at [...] Starting ity of irrigation 15:47: 16:40 on Wed [place] solution 00 :12 06/28/22 at Medic al 0947, Branch Until Sun06/28/22 at 1040, Routine, Intra-op sodium 2021-07- No PRN, Univers chloride 08-29 Starting ity of (NS) 15:46: 16:40 on Wed [place] injection 00 :12 06/28/22 at [facility] lino 0946, Branch Until Sun06/28/22 at 1040, Routine, Intra-op neomycin-po 2021-07- No PRN, Unive rs lymyxin-dex 08-29 Starting ity of amethasone 15:46: 16:40 on Sun [place] (MAXITROL) 00 :12 06/28/22 at Med ical 3.5 0946, Branch mg/g-10,000 Until Sun unit/g-0.1 06/28/22 at % 1040, ophthalmic Routine, ointment Intra-op Hyaluronida 2021-07- No PRN, Unive rs se, Human 08-29 Starting ity o f Recomb. 15:46: 16:40 on Sun [place] (HYLENEX) 00 :12 06/28/22 at [facility] injection 0946, Branch Until Sun06/28/22 at 1040, Routine, Intra-op eye block 2021-07- No PRN, Univers syringe 11 08-29 Starting ity of mL 15:45: 16:40 on Sun [place] 00 :12 06/28/22 at Medical 0945, Branch Until Sun06/28/22 at 1040, Intra-op EPINEPHrine 2021-07- No PRN, Unive rs 1:1,000 (1 08-29 Starting ity of mg/mL) 15:44: 16:40 on Sun [place] (ADRENALIN) 00 :12 06[place]28/[place] injection 0944, Branch Until Sun06/28/22 at 1040, Routine, Intra-op balanced 2021-07- No PRN, Univers salt irrig 08-29 Starting ity of soln comb1 15:43: 16:40 [place] Sun [place] (BSS PLUS) 00 :12 06/28/22 at Med ical ophthalmic 0943, Branch solution Until Sun 500 [...] at 42 Unive rs ringers IV 08-29 12- mL/hr, ity of infusion 14:30: 14:40 1,000 mL, [place] as 1,000 mL 00 :00 IV Medical Infusion, Branch ONCE, 1 dose, On Sun06/28/22 at 0830, Routine, DSU Pre-op finasteride 2021-07 Yes 5mg Take 5 mg U nivers 5 mg tablet 2-07 by mouth ity of 11:16: daily. [address] albuterol 2021-07 Yes 1{ampul Use 1 Univ ers 2.5 mg/0.5 2-07 e} Ampule as ity of mL 11:16: directed 3 [place] nebulizer 16 (three) Medical solution times Branch daily as needed for Wheezing. finasteride 2021-07 Yes 5mg Take 5 mg U nivers 5 mg tablet 2-07 by mouth ity of 11:16: daily. [address] albuterol 2021-07 Yes 1{ampul Use 1 Univ ers 2.5 mg/0.5 2-07 e} Ampule as ity of mL 11:16: directed 3 [place] nebulizer 16 (three) Medical solution times Branch daily as needed for Wheezing. finasteride 2021-07 Yes 5mg Take 5 mg U nivers 5 mg tablet 2-07 by mouth ity of 11:16: daily. [address] albuterol 2021-07 Yes 1{ampul Use 1 Univ ers 2.5 mg/0.5 2-07 e} Ampule as ity of mL 11:16: directed 3 [place] nebulizer 16 (three) Medical solution times Branch daily as needed for Wheezing. finasteride 2021-07 Yes 5mg Take 5 mg U nivers 5 mg tablet 2-07 by mouth ity of 11:16: daily. [address] albuterol 2021-07 Yes 1{ampul Use 1 Univ ers 2.5 mg/0.5 2-07 e} Ampule as ity of mL 11:16: directed 3 [place] nebulizer 16 (three) Medical solution times Branch daily as needed for Wheezing. spironolact 2021-07- No 100mg QD Take [address] one 2-06 12-06 mg by Lukes (ALDACTONE) 14:28: 00:00 mouth Medi lino 100 MG 46 :00 daily. Center tablet spironolact 2021-07- No 100mg QD Take [address] one 2-06 12-06 mg by Lukes (ALDACTONE) 14:28: 00:00 mouth Medi lino 100 MG 46 :00 daily. Center tablet AMILoride 2021-07- No Other 5mg QD Take [address] [facility] (MIDAMOR) 5 2-06 03-07 cirrhosis tablet (5 [facility]ukes MG tablet 00:00: 00:00 of liver mg total) Medical 00 :00 (HCC) by mouth Center daily for 30 days. AMILoride 2021-07- No Other 5mg QD Take [address] [facility] (MIDAMOR) 5 2-06 01-05 cirrhosis tablet (5 [facility] MG tablet 00:00: 23:59 of liver mg total) Medical 00 :00 (HCC) by mouth Center daily for 30 days. finasteride 2021-07 Yes 5mg Take 5 mg U nivers 5 mg tablet 2-01 by mouth ity of 12:05: daily. [address] neomycin-po 2021-07- No PRN, Unive rs lymyxin-dex 08-07 Starting ity of amethasone 15:45: 16:[address] 00 :50 06/07/22 Medic al 3.5 at 0945, Branch mg/g-10,000 Until Sun unit/g-0.1 06/07/22 % at 1004, ophthalmic Routine, ointment Intra-op ceFAZolin 2021-07- No PRN, Univers (ANCEF) 08-07 Starting ity of injection 15:43: 16:04 on Sun [place] 00 :50 06/07/22 Medical at 0943, Branch Until Sun06/07/22 at 1004, ENRIQUE, Intra-op carbachoL 2021-07- No PRN, Univers (MIOSTAT) 08-07 Starting ity o f 0.01 % 15:42: 16:04 on Sun intraocular 00 :50 06/07/22 Medi lino injection at 0942, Branch Until Sun06/07/22 at 1004, Routine, Intra-op dexamethaso 2021-07- No PRN, Unive rs ne 08-07 Starting ity of (DECADRON 15:33: 16:04 on Sun [place] PHOSPHATE) 00 :50 06/07/22 Medic al injection [...] ity of mg/mL) 15:29: 16:04 on Sun [place] (ADRENALIN) 00 :50 06/07/22 Medi lino injection [...] :50 06/07/22 Medical at 0921, Branch Until Sun06/07/22 at 1004, Routine, Intra-op sodium 2021-07- No PRN, Univers chloride 08-07 Starting ity of (NS) 15:21: 16:04 on Sun [place] injection 00 :50 06/07/22 Medica l at 0921, Branch Until Sun06/07/22 at 1004, Routine, Intra-op Hyaluronida 2021-07- No PRN, Unive rs se, Human 08-07 Starting ity o f Recomb. 15:20: 16:04 on Sun [place] (HYLENEX) 00 :50 06/07/22 Medica l injection at 0920, Branch Until Sun06/07/22 at 1004, Routine, Intra-op eye block 2021-07- No PRN, Univers syringe 11 08-07 Starting ity of mL 15:20: 16:04 on Sun [place] 00 :50 06/07/22 Medical at 0920, Branch Until Sun06/07/22 at 1004, Intra-op cyclopent 2021-07- No .5mL 0.5 mL, Univ ers 1%-tropic 08-07 Left Eye, ity of 1%-phenyl 14:15: 15:13 ONCE, 1 [place] 2.5%-ketor 00 :56 dose, On Medic al 0.5% [facility] (MYDRIATIC 06/07/22 #5) at 0815, ophthalmic Routine, solution DSU Pre-op syringe 0.5 mL lactated 2021-07- No 1000mL at 42 Unive rs ringers IV -16 11-16 mL/hr, ity of infusion 14:15: 15:13 1,000 mL, [place] 1,000 mL 00 :56 IV Medical Infusion, Branch ONCE, 1 dose, On Sun06/07/22 at 0815, Routine, DSU Pre-op cyclopent 2021-07- No .5mL 0.5 mL, Univ ers 1%-tropic -16 11-16 Left Eye, ity of 1%-phenyl 14:15: 15:13 ONCE, 1 [place] 2.5%-ketor 00 :56 dose, On Medic al 0.5% Sun Branch (MYDRIATIC 06/07/22 #5) at 0815, ophthalmic Routine, solution DSU Pre-op syringe 0.5 mL lactated 2021-07- No 1000mL at 42 Unive rs ringers IV 16 11-16 mL/hr, ity of infusion 14:15: 15:13 1,000 mL, [place] as 1,000 mL 00 :56 IV Medical Infusion, Branch ONCE, 1 dose, On Sun06/07/22 at 0815, Routine, DSU Pre-op finasteride 2021-07 Yes 5mg Take 5 mg U nivers 5 mg tablet 1-16 by mouth ity of 10:35: daily. [address] albuterol 2021-07 Yes 1{ampul Use 1 Univ ers 2.5 mg/0.5 1-16 e} Ampule as ity of mL 10:35: directed 3 [place] nebulizer 23 (three) Medical solution times Branch daily as needed for Wheezing. finasteride 2021-07 Yes 5mg Take 5 mg U nivers 5 mg tablet 1-16 by mouth ity of 10:35: daily. [address] albuterol 2021-07 Yes 1{ampul Use 1 Univ ers 2.5 mg/0.5 1-16 e} Ampule as ity of mL 10:35: directed 3 [place] nebulizer 23 (three) Medical solution times Branch daily as needed for Wheezing. finasteride 2021-07 Yes 5mg Take 5 mg U nivers 5 mg tablet 1-16 by mouth ity of 10:35: daily. [place] 23 Medical Branch albuterol 2021-07 Yes 1{ampul Use 1 Univ ers 2.5 mg/0.5 1-16 e} Ampule as ity of mL 10:35: directed 3 [place] nebulizer 23 (three) Medical solution times Branch daily as needed for Wheezing. albuterol 2021-07 Yes 1{ampul Use 1 Univ ers 2.5 mg/0.5 1-16 e} Ampule as ity of mL 10:35: directed 3 [place] nebulizer 23 (three) Medical solution times Branch daily as needed for Wheezing. OLANZapine 2021-07 Yes 1{tbl} Take 1 Uni vers 2.5 mg 1-04 tablet by ity of tablet 00:00: mouth in [place] [address] the Medical morning. Branch OLANZapine 2021-07 Yes 1{tbl} Take 1 Uni vers 2.5 mg 1-04 tablet by ity of tablet 00:00: mouth in [place] the Medical morning. Branch OLANZapine 2021-07 Yes 1{tbl} Take 1 Uni vers 2.5 mg 1-04 tablet by ity of tablet 00:00: mouth in [place] the Medical morning. Branch OLANZapine 2021-07 Yes 1{tbl} Take 1 Uni vers 2.5 mg 1-04 tablet by ity of tablet 00:00: mouth in [place] the Medical morning. Branch OLANZapine 2021-07 Yes 1{tbl} Take 1 Uni vers 2.5 mg 1-04 tablet by ity of tablet 00:00: mouth in [place] the Medical morning. Branch OLANZapine 2021-07 Yes 1{tbl} Take 1 Uni vers 2.5 mg 1-04 tablet by ity of tablet 00:00: mouth in [place] the Medical morning. Branch OLANZapine 2021-07 Yes 1{tbl} Take 1 Uni vers 2.5 mg 1-04 tablet by ity of tablet 00:00: mouth in [place] the Medical morning. Branch OLANZapine 2021-07 Yes 1{tbl} Take 1 Uni vers 2.5 mg 1-04 tablet by ity of tablet 00:00: mouth in [place] [address] the Medical morning. Branch BREZTRI 2021-07 Yes 2{puff} Inhale 2 Uni vers AEROSPHERE 0-31 Puffs as ity o f 160-9-4.8 00:00: needed. [facility]/actuati 00 Medical on HFAA Branch BREZTRI 2021-07 Yes 2{puff} Inhale 2 Uni vers AEROSPHERE 0-31 Puffs as ity o f 160-9-4.8 00:00: needed. [place] mcg/actuati Medical on [facility] 2021-07 Yes 2{puff} Inhale 2 Uni vers AEROSPHERE 0-31 Puffs as ity o f 160-9-4.8 00:00: needed. [place] mcg/actuati Medical on [facility] 2021-07 Yes 2{puff} Inhale 2 Uni vers AEROSPHERE 0-31 Puffs as ity o f 160-9-4.8 00:00: needed. [place] mcg/actuati Medical on [facility] 2021-07 Yes 2{puff} Inhale 2 Uni vers AEROSPHERE 0-31 Puffs as ity o f 160-9-4.8 00:00: needed. [place] mcg/actuati Medical on [facility] 2021-07 Yes 2{puff} Inhale 2 Uni vers AEROSPHERE 0-31 Puffs as ity o f 160-9-4.8 00:00: needed. [place] mcg/actuati Medical on [facility] 2021-07 Yes 2{puff} Inhale 2 Uni vers AEROSPHERE 0-31 Puffs as ity o f 160-9-4.8 00:00: needed. [place] mcg/actuati Medical on [facility] 2021-07 Yes 2{puff} Inhale 2 Uni vers AEROSPHERE 0-31 Puffs as ity o f 160-9-4.8 00:00: needed. [place] mcg/actuati Medical on [facility] budesonide- Yes 2{puff} Inhale [address] glycopyr-fo 9-29 puffs by [place] rmoterol 00:00: mouth via Medi lino ([facility]er. [place] [employer]) 160-9-4.8 mcg/actuati on [facility] rifAXIMin 2021- No hepatic 550mg Q.5D Take [address] 550 mg Tab 04-12- encephalopa mg by Lukes 10:34: 00:00 thy [...] (two) Center times daily . rifAXIMin 2022-0 2- No hepatic 550mg Q.5D Take [address] 550 mg Tab 04-12- encephalopa mg by Lukes 10:34: 00:00 thy mouth 2 Medical 11 :00 (two) Center times daily . spironolact 2022-0 Yes 100mg QD Take [address] one 9-19 mg by Lukes (ALDACTONE) 09:50: mouth Medic al 100 MG 48 daily. Center tablet rifAXIMin 2022-0 Yes 550mg Q.5D Take [address] (Xifaxan) 9-19 mg by [facility]ukes 550 mg Tab 09:50: mouth 2 Medi lino 48 (two) Center times daily. spironolact 2022-0 Yes 100mg QD Take [address] one 9-19 mg by Lukes (ALDACTONE) 09:50: mouth Medic al 100 MG 48 daily. Center tablet rifAXIMin 2022-0 Yes 550mg Q.5D Take [address] (Xifaxan) 9-19 mg by [facility]ukes 550 mg Tab 09:50: mouth 2 Medi lino 48 (two) Center times daily. rifAXIMin 2022-0 Yes 550mg Q.5D Take [address] (Xifaxan) 9-19 mg by [facility]ukes 550 mg Tab 09:50: mouth 2 Medi lino 48 (two) Center times daily. ergocalcife 2022-0 3- No [id number] Q7D Take [address] rol 9-15 02-08 capsule [place] (Vitamin 00:00: 00:00 (50,000 Medic al D2) 1,250 00 :00 Units Center mcg (50,000 total) by unit) mouth once capsule a week for 12 doses. ergocalcife 2022-0 2022- No [id number] Take Uni vers rol, 04-06 50,000 ity of vitamin d2, 00:00: 05:59 Units by [place] 1,250 mcg 00 :00 mouth Medical (50,000 weekly. Branch unit) capsule ergocalcife 2022-0 2022- No [id number] Take Uni vers rol, 04-06 50,000 ity of vitamin d2, 00:00: 05:59 Units by [place] 1,250 mcg 00 :00 mouth Medical (50,000 weekly. Branch unit) capsule ergocalcife 2022-0 2022- No [id number] Take Uni vers rol, 04-06 50,000 ity of vitamin d2, 00:00: 05:59 Units by [place] 1,250 mcg 00 :00 mouth Medical (50,000 weekly. Branch unit) capsule ergocalcife 2-0 2022- No [id number] Take Uni vers rol, 04-06 50,000 ity of vitamin d2, 00:00: 05:59 Units by [place] 1,250 mcg 00 :00 mouth Medical (50,000 weekly. Branch unit) capsule ergocalcife 2-0 2022- No [id number] Take Uni vers rol, 04-06 50,000 ity of vitamin d2, 00:00: 05:59 Units by [place] 1,250 mcg 00 :00 mouth Medical (50,000 weekly. Branch unit) capsule ergocalcife 2022-0 2022- No [id number] Q7D Take [address] rol 04-06 capsule [facility]ukes (Vitamin 00:00: 23:59 (50,000 Medic al D2) 1,250 00 :00 Units Center mcg (50,000 total) by unit) mouth once capsule a week for 12 doses. ergocalcife 2022-0 2022- No [id number] Q7D Take [address] rol 04-06 capsule [facility] (Vitamin 00:00: 23:59 (50,000 Medic al D2) 1,250 00 :00 Units Center mcg (50,000 total) by unit) mouth once capsule a week for 12 doses. ergocalcife 2022-0 2022- No [id number] Q7D Take [address] [facility] 04-06 [facility] (Vitamin 00:00: 23:59 (50,000 Medic al D2) 1,250 00 :00 Units Center mcg (50,000 total) by unit) mouth once capsule a week for 12 doses. furosemide 2021-2021- No 40mg Q.5D Take [address] [facility] (LASIX) 40 03-29 by mouth 2 Lucretia kes MG tablet 16:13: 00:00 (two) Medica l 05 :00 times Center daily. furosemide 2021-0 2021- No 40mg Q.5D Take [address] [facility] (LASIX) 40 03-29 by mouth 2 Lucretia kes MG tablet 16:13: 00:00 (two) Medica l 05 :00 times Center daily. furosemide 2021-0 2021- No 40mg Q.5D Take [address] [facility] (LASIX) 40 03-29 by mouth 2 Lucretia kes MG tablet 16:13: 00:00 (two) Medica l 05 :00 times Center daily. furosemide 2021-0 2021- No 40mg Q.5D Take [address] [facility] (LASIX) 40 03-29 by mouth 2 Lucretia kes MG tablet 16:13: 00:00 (two) Medica l 05 :00 times Center daily. furosemide 2-0 Yes 40mg Q.5D [facility] 9-07 tablet (40 Ruth es MG tablet 00:00: mg total) Med ical 00 by mouth 2 Center (two) times daily. furosemide 2022-0 Yes 40mg Q.5D Take 1 [facility] ([facility] 40 9-07 tablet (40 Ruth es MG tablet 00:00: mg total) Med ical 00 by mouth 2 Center (two) times daily. furosemide 2022-0 Yes 40mg Q.5D Take 1 [facility] ([facility] 40 9-07 tablet (40 Ruth es MG tablet 00:00: mg total) Med ical 00 by mouth 2 Center (two) times daily. furosemide 2022-0 Yes 40mg Q.5D Take 1 [facility] [...] 00:00[facility]hale 2 Un jerardo HFA 90 9-07 Puffs as ity of mcg/actuati 00:00: needed. [place] as on inhaler 00 [facility] VENTOLIN Yes 2{puff} Inhale 2 Un [place] HFA 90 9-07 Puffs as ity of mcg/actuati 00:00: needed. [place] as on inhaler 00 [facility] Branch VENTOLIN Yes 2{puff} Inhale 2 Un jerardo HFA 90 9-07 Puffs as ity of mcg/actuati 00:00: needed. [place] as on inhaler 00 [facility] spironolact Yes 1{tbl} Take 1 Un jerardo one 100 mg 9-04 tablet by ity of tablet 00:00: mouth in [place] the Medical morning. Branch spironolact Yes 1{tbl} Take 1 Un jerardo one 100 mg 9-04 tablet by ity of tablet 00:00: mouth in [place] the Medical morning. Branch spironolact Yes 1{tbl} Take 1 Un jerardo one 100 mg 9-04 tablet by ity of tablet 00:00: mouth in [place] the morning. Branch spironolact 2022-0 Yes 1{tbl} Take 1 Un [place] one 100 mg 9-04 tablet by ity of tablet 00:00: mouth in [place] the morning. Branch spironolact 2022-0 Yes 1{tbl} Take 1 Un [place] one 100 mg 9-04 tablet by ity of tablet 00:00: mouth in [place] the morning. Branch spironolact 2022-0 Yes 1{tbl} Take 1 Un [place] one 100 mg 9-04 tablet by ity of tablet 00:00: mouth in [place] the morning. Branch spironolact 2022-0 Yes 1{tbl} Take 1 Un [place] one 100 mg 9-04 tablet by ity of tablet 00:00: mouth in [place] the morning. Branch spironolact 2022-0 Yes 1{tbl} Take 1 Un jerardo one 100 mg 9-04 tablet by ity of tablet 00:00: mouth in [place] the morning. Branch spironolact 2022-0 Yes [facility] one 9-04 [facility] (ALDACTONE) 00:00: of 100 MG 00 Medicin tablet e lactulose 2-0 Yes 30mL Take 30 mL Un jerardo 10 gram/15 8-25 by mouth ity o f mL solution 00:00: in the [facility] morning Medical and 30 mL Branch at noon and 30 mL in the evening. Variable dose lactulose 2022-0 Yes 30mL Take 30 mL Un jerardo 10 gram/15 8-25 by mouth ity o f mL solution 00:00: in the [facility] morning Medical and 30 mL Branch at noon and 30 mL in the evening. Variable dose lactulose 2022-0 Yes 30mL Take 30 mL Un jerardo 10 gram/15 8-25 by mouth ity o f mL solution 00:00: in the [facility] morning Medical and 30 mL Branch at noon and 30 mL in the evening. Variable dose lactulose 2022-0 Yes 30mL Take 30 mL Un jerardo 10 gram/15 8-25 by mouth ity o f mL solution 00:00: in the [facility] morning Medical and 30 mL Branch at noon and 30 mL in the evening. Variable dose lactulose 2022-0 Yes 30mL Take 30 mL Un jerardo 10 gram/15 8-25 by mouth it[place] Medical and 30 mL Branch at noon and 30 mL in the evening. Variable dose lactulose 2021-0 Yes 30mL Take 30 mL Un jerardo 10 gram/15 8-25 by mouth it[place] o f mL solution [place]:00[place] Medical and 30 mL Branch at noon and 30 mL in the evening. Variable dose lactulose 2-0 Yes 30mL Take 30 mL Un jerardo 10 gram/15 8-25 by mouth ity o f mL [place]:00[place] Medical and 30 mL Branch at noon and 30 mL in the evening. Variable dose lactulose 2021-0 Yes 30mL Take 30 mL Un jerardo 10 gram/15 8-25 by mouth it[place] o f mL solution [place]:00[place] Medical and 30 mL Branch at noon and 30 mL in the evening. Variable dose Lactulose 2021-0 Yes [facility] 20 GM/30ML 8-25 [facility] 00:00: 00 Medicin e albuterol 2021-0 Yes 1{puff} Inhale [address] HFA 8-17 puff by [facility] (VENTOLIN 17:15: mouth via Med ical HFA) 90 12 inhaler Center mcg/actuati every 6 on inhaler (six) hours as needed for Wheezing. albuterol 0 Yes 1{puff} Inhale [address] HFA 8-17 puff by [facility] (VENTOLIN 17:15: mouth via Med ical HFA) 90 12 inhaler Center mcg/actuati every 6 on inhaler (six) hours as needed for Wheezing. albuterol 2021-0 Yes 1{puff} Inhale [address] HFA 8-17 puff by [facility] (VENTOLIN 17:15: mouth via Med ical HFA) 90 12 inhaler Center mcg/actuati every 6 on inhaler (six) hours as needed for Wheezing. lactulose 2021-0 2- No 10g Q.[id number] Take [address] [facility] (CEPHULAC) 8-17 08-17 [id number] by mouth 3 [facility] 10 gram 16:54: 00:00 3D (three) Medica l packet 31 :00 times Center daily. lactulose 2021- No 10g Q.[id number] Take [address] [facility] (CEPHULAC) 8-17 - [id number] by mouth 3 [facility] 10 gram 16:54: 00:00 3D (three) Medica l packet 31 :00 times Center daily. lactulose 2021- No 10g Q.[id number] Take [address] [facility] (CEPHULAC) 8- [id number] by mouth 3 [facility] 10 gram 16:54: 00:00 3D (three) Medica l packet 31 :00 times Center daily. lactulose 2021- No 10g Q.[id number] Take [address] [facility] (CEPHULAC) 03-08- [id number] by mouth 3 [facility] 10 gram 16:54: 00:00 3D (three) Medica l packet 31 :00 times Center daily. eszopiclone Yes TAKE 1 [facility] (LUNESTA) 1 8-17 TABLET BY Col lege MG TABS 00:00: MOUTH of 00 DAILY Medicin IMMEDIATEL e Y BEFORE BEDTIME tramadol Yes 50mg Take 50 mg [place] [facility] (ULTRAM) 50 8-17 by mouth. Col lege MG tablet 00:00: of 00 Medicin e traMADoL 2021- No 50mg Take [address] [facility] (ULTRAM) 50 03-08-21 tablet (50 L ukes mg tablet 00:00: 00:00 mg total) Me dical 00 :00 by mouth Center every 12 (twelve) hours as needed for Pain. Max Daily Amount: 100 mg traMADoL 2021- No 50mg Take [address] [facility] (ULTRAM) 50 8- 09-21 tablet (50 L ukes mg tablet [...] Pain. Max Daily Amount: 100 mg traMADoL 2021-0 2021- No 50mg Take [address] [facility] (ULTRAM) 50 03-08 tablet (50 L ukes mg tablet 00:00: 00:00 mg total) Me dical 00 :00 by mouth Center every 12 (twelve) hours as needed for Pain. Max Daily Amount: 100 mg traMADoL 2021-0 2- No 50mg Take [address] [facility] (ULTRAM) 50 02-20- tablet (50 L ukes mg tablet 00:00: 23:59 mg total) Me dical 00 :00 by mouth Center every 6 (six) hours as needed for Pain for up to 10 days. Max Daily Amount: 200 mg traMADoL 2021-0 2- No 50mg Take [address] [facility] (ULTRAM) 50 02-20- tablet (50 L ukes mg tablet 00:00: 23:59 mg total) Me dical 00 :00 by mouth Center every 6 (six) hours as needed for Pain for up to 10 days. Max Daily Amount: 200 mg traMADoL 2021-0 2021- No 50mg Take [address] [facility] (ULTRAM) 50 02-20- tablet (50 L ukes mg tablet 00:00: 23:59 mg total) Me dical 00 :00 by mouth Center every 6 (six) hours as needed for Pain for up to 10 days. Max Daily Amount: 200 mg traMADoL 2-0 2021- No 50mg Take [address] [facility] (ULTRAM) 50 02-20-11 tablet (50 L ukes mg tablet 00:00: 23:59 mg total) Me dical 00 :00 by mouth Center every 6 (six) hours as needed for Pain for up to 10 days. Max Daily Amount: 200 mg gabapentin 2022-0 Yes 100mg Take 100 Un jerardo 100 mg 7-29 mg by ity of capsule 00:00: mouth in [place] [address] the Medical morning Branch and 100 mg [...] by ity of capsule 00:00: mouth in [place] [address] the Medical morning Branch and 100 mg at noon and 100 mg in the evening. gabapentin 2022-0 Yes 100mg Take 100 Un jerardo 100 mg 7-29 mg by ity of capsule 00:00: mouth in [place] 00 the Medical morning Branch and 100 mg at noon and 100 mg in the evening. gabapentin 2022-0 Yes 100mg Take 100 Un jerardo 100 mg 7-29 mg by ity of capsule 00:00: mouth in [place] [address] the Medical morning Branch and 100 mg at noon and 100 mg in the evening. gabapentin 2022-0 Yes 100mg Take 100 Un jerardo 100 mg 7-29 mg by ity of capsule 00:00: mouth in [place] [address] the Medical morning Branch and 100 mg at noon and 100 mg in the evening. gabapentin 2022-0 Yes 100mg Take 100 Un jerardo 100 mg 7-29 mg by ity of capsule 00:00: mouth in [place] [address] the Medical morning Branch and 100 mg at noon and 100 mg in the evening. gabapentin 2022-0 Yes 100mg Take 100 Un jerardo 100 mg 7-29 mg by ity of capsule 00:00: mouth in [place] [address] the Medical morning Branch and 100 mg at noon and 100 mg in the evening. gabapentin 2021-0 Yes TAKE 1 [facility] (NEURONTIN) 7-29 CAPSULE BY Co [facility]lege 100 MG 00:00: MOUTH of capsule 00 THREE Medicin TIMES A e DAY FOR 90 DAYS valacyclovi 2021-0 Yes TAKE 1 [facility] (VALTREX) 7-29 TABLET BY Col lege 1 g tablet 00:00: MOUTH of 00 THREE Medicin TIMES A e DAY FOR 30 DAYS gabapentin 2021-0 202- No 100mg Q.[id number] Take [address] [facility] (NEURONTIN) 7-05-18 [id number] [facility] 100 MG 00:00: 23:59 3D (100 mg Medical capsule 00 :00 total) by Center mouth 3 (three) times daily for 90 days. gabapentin 202-0 2022- No 100mg Q.[id number] Take [address] [facility] (NEURONTIN) 7-05-18 [id number] [facility] 100 MG 00:00: 23:59 3D (100 mg Medical capsule 00 :00 total) by Center mouth 3 (three) times daily for 90 days. gabapentin 202-0 2022- No 100mg Q.[id number] Take [address] [facility] (NEURONTIN) 02-17 [id number] capsule [facility] 100 MG 00:00: 23:59 3D (100 mg Medical capsule 00 :00 total) by Center mouth 3 (three) times daily for 90 days. gabapentin 202-0 2022- No 100mg Q.[id number] Take [address] [facility] (NEURONTIN) 02-17 [id number] capsule [facility] 100 MG 00:00: 23:59 3D (100 mg Medical capsule 00 :00 total) by Center mouth 3 (three) times daily for 90 days. tamsulosin 2022-0 2022- No .4mg QD Take [address] [facility] (FLOMAX) 02-17 capsule [facility] 0.4 mg Cap 00:00: 23:59 (0.4 mg Med ical 24 hr 00 :00 total) by Center capsule mouth daily for 30 days. valACYclovi 2022-0 2022- No 1000mg Q.[id number] Take [address] [facility] (VALTREX) 02-17 [id number] tablet [facility] 1000 MG 00:00: 23:59 3D [...] 30 days. valACYclovi 2022-0 2022- No 1000mg Q.[id number] Take [address] [facility] (VALTREX) 02-17 [id number] tablet [facility] 1000 MG 00:00: 23:59 3D [...] 30 days. valACYclovi 2022-0 2022- No 1000mg Q.[id number] Take [address] [facility] (VALTREX) 02-17 [id number] tablet [facility] 1000 MG 00:00: 23:59 3D [...] 30 days. valACYclovi 2022-0 2022- No 1000mg Q.[id number] Take [address] [facility] [facility] (VALTREX) 02-17 [id number] tablet [facility] 1000 MG 00:00: 23:59 3D [...] and 550 mg in the evening. ipratropium 2-0 Yes INHALE 1 [facility] (ATROVENT) 7-13 VIAL BY Colleg e 0.02 % 00:00: MOUTH VIA of nebulizer 00 NEBULIZER Medic in solution EVERY 8 e HOURS NEEDED Albuterol 2-0 Yes [facility] (VENTOLIN 7- [place]) 00:00: of 00 Medicin e furosemide 2021-0 Yes 1{tbl} Take 1 [facility] vers 40 mg 6-21 tablet by ity of tablet 00:00: mouth in [place] 00 the Medical morning. Branch furosemide 2-0 Yes 1{tbl} Take 1 [facility] vers 40 mg 6-21 tablet by ity of tablet 00:00: mouth in [place] 00 the Medical morning. Branch furosemide 2022-0 Yes 1{tbl} Take 1 [facility] vers 40 mg 6-21 tablet by ity of tablet 00:00: mouth in [place] 00 the Medical morning. Branch furosemide 2022-0 Yes 1{tbl} Take 1 [facility] vers 40 mg 6-21 tablet by ity of tablet 00:00: mouth in [place] 00 the Medical morning. Branch furosemide 2022-0 Yes 1{tbl} Take 1 [facility] vers 40 mg 6-21 tablet by ity of tablet 00:00: mouth in [place] 00 the Medical morning. Branch furosemide 2022-0 Yes 1{tbl} Take 1 [facility] vers 40 mg 6-21 tablet by ity of tablet 00:00: mouth in [place] 00 the Medical morning. Branch furosemide 2022-0 Yes 1{tbl} Take 1 [facility] vers 40 mg 6-21 tablet by ity of tablet 00:00: mouth in [place] 00 the Medical morning. [place] furosemide Yes TAKE 1 [facility] (LASIX) 40 6-21 TABLET BY Aydin ege MG tablet 00:00: MOUTH of 00 EVERY DAY Medicin e furosemide Yes 1{tbl} Take 1 [facility] vers 40 mg 6-21 tablet by ity of tablet 00:00: mouth in [place] 00 the Medical morning. Branch furosemide 2021- No [id number] 20mg Take 1 [facility] 20 mg 3-20 04-20 tablet by ity of tablet 00:00: 04:59 mouth [place] 00 :00 daily for Medical 30 days. Branch furosemide 2021- No [id number] 20mg Take 1 [facility] 20 mg 3-20 04-20 tablet by ity of tablet 00:00: 04:59 mouth [place] 00 :00 daily for Medical 30 days. [place] furosemide 2021- No [id number] 20mg Take 1 [facility] 20 mg 3-20 04-20 tablet by ity of tablet 00:00: 04:59 mouth [place] 00 :00 daily for Medical 30 days. Branch levoFLOXaci 2021- No [id number] 750mg Take 1 Univers n 750 mg 3-20 03-24 tablet by ity o f tablet 00:00: 04:59 mouth [place] 00 :00 daily for Medical 3 days. [place] predniSONE 2021- No [id number] 40mg Take 2 [facility] 20 mg 3-20 03-24 tablets by ity of tablet 00:00: 04:59 mouth [place] 00 :00 daily for Medical 3 days. Branch levoFLOXaci 2021- No [id number] 750mg Take 1 Univers n 750 mg 3-20 03-24 tablet by ity o f tablet 00:00: 04:59 mouth [place] 00 :00 daily for Medical 3 days. Branch predniSONE 2021- No [id number] 40mg Take 2 [facility] 20 mg 3-20 03-24 tablets by ity of tablet 00:00: 04:59 mouth [place] 00 :00 daily for Medical 3 days. Branch levoFLOXaci 2021- No [id number] 750mg Take 1 Univers n 750 mg 3-20 03-24 tablet by ity o f tablet 00:00: 04:59 mouth [place] 00 :00 daily for Medical 3 days. Branch predniSONE 2021- No [id number] 40mg Take 2 [facility] 20 mg 3-20 -24 tablets by ity of tablet 00:00: 04:59 mouth [place] 00 :00 daily for Medical 3 days. Branch finasteride Yes 5mg Take 5 mg U nivers 5 mg tablet 3-19 by mouth ity of 11:37: daily. [address] albuterol Yes 1{ampul Use 1 Univ ers 2.5 mg/0.5 3-19 e} Ampule as ity of mL 11:37: directed 3 [place] nebulizer 16 (three) Medical solution times Branch daily as needed for Wheezing. finasteride Yes 5mg Take 5 mg U nivers 5 mg tablet 3-19 by mouth ity of 11:37: daily. [address] albuterol Yes 1{ampul Use 1 Univ ers 2.5 mg/0.5 3-19 e} Ampule as ity of mL 11:37: directed 3 [place] nebulizer 16 (three) Medical solution times Branch daily as needed for Wheezing. finasteride Yes 5mg Take 5 mg U nivers 5 mg tablet 3-19 by mouth ity of 11:37: daily. [address] albuterol Yes 1{ampul Use 1 Univ ers 2.5 mg/0.5 3-19 e} Ampule as ity of mL 11:37: directed 3 [place] nebulizer 16 (three) Medical solution times Branch daily as needed for Wheezing. finasteride Yes 5mg Take 5 mg U nivers 5 mg tablet 3-19 by mouth ity of 11:37: daily. [address] albuterol Yes 1{ampul Use 1 Univ ers 2.5 mg/0.5 3-19 e} Ampule as ity of mL 11:37: directed 3 [place] nebulizer 16 (three) Medical solution times Branch daily as needed for Wheezing. spironolact 2021- No 50mg Take 50 mg [facility] one 50 mg -19 -19 by mouth 2 ity of tablet 10:02: 00:00 (two) [place] 59 :00 times Medical daily. Branch furosemide 2021- No 40mg Take 40 mg [facility] 40 mg 10-08 by mouth 2 ity of tablet 10:02: 00:00 (two) [place] 59 :00 times Medical daily. Branch lactulose 2021- No 45mL Take 45 mL U nivers 10 gram/15 10-0819 by mouth. ity of mL (15 mL) 10:02: 00:00 [place] Sol 59 :00 Medical Branch Ipratropium Yes 1{puff} 1 Puff by [facility] -Albuterol 3-19 Inhalation Col lege 20-100 00:00: route. of MCG/ACT 00 Medicin AERS e albuterol-i Yes [id number] 1{puff} Inhale 1 [facility] pratropium 3-19 Puff every ity of 20-100 00:00: 6 (six) [place] mcg/actuati 00 hours as Medi lino on inhaler needed for Bra nch Wheezing or Shortness of Breath. albuterol-i Yes [id number] 1{puff} Inhale 1 [facility] pratropium 3-19 Puff every ity of 20-100 00:00: 6 (six) [place] mcg/actuati 00 hours as Medi lino on inhaler needed for Bra nch Wheezing or Shortness of Breath. albuterol-i Yes [id number] 1{puff} Inhale 1 [facility] pratropium 3-19 Puff every ity of 20-100 00:00: 6 (six) [place] mcg/actuati 00 hours as Medi lino on inhaler needed for Bra nch Wheezing or Shortness of Breath. albuterol-i Yes [id number] 1{puff} Inhale 1 [facility] pratropium 3-19 Puff every ity of 20-100 00:00: 6 (six) [place] mcg/actuati 00 hours as Medi lino on inhaler needed for Bra nch Wheezing or Shortness of Breath. albuterol-i Yes [id number] 1{puff} Inhale 1 [facility] pratropium 3-19 Puff [...] or Shortness of Breath. spironolact 2021- No [id number] 25mg Take 1 [facility] one 25 mg 3-19 -19 tablet by ity of tablet 00:00: 04:59 mouth 2 [place] 00 :00 (two) Medical times Branch daily for 30 days. lactulose 2021- No [id number] 30mL Take 30 mL [facility] 10 gram/15 3-19 -19 by mouth 2 it y of mL solution 00:00: 04:59 (two) [place] :[place] times Medical daily for Branch 30 days. spironolact 2021- No [id number] 25mg Take 1 [facility] one 25 mg 3-19 -19 tablet by ity of tablet 00:00: 04:59 mouth 2 [place] 00 :00 (two) Medical times Branch daily for 30 days. lactulose 2021- No [id number] 30mL Take 30 mL [facility] 10 gram/15 3-19 -19 by mouth 2 it y of mL solution 00:00: 04:59 (two) [place] :[place] times Medical daily for Branch 30 days. spironolact 2021- No [id number] 25mg Take 1 [facility] one 25 mg 3-19 - tablet by ity of tablet 00:00: 04:59 mouth 2 [place] 00 :00 (two) Medical times Branch daily for 30 days. lactulose 2021- No [id number] 30mL Take 30 mL [facility] 10 gram/15 3-19 -19 by mouth 2 it y of mL solution 00:00: 04:59 (two) [place] :[place] times Medical daily for Branch 30 days. morpHINE Yes 2mg 2 mg, Slow Uni vers injection 2 3-18 IV Push, ity of mg 21:52: Q4HPRN, [place] 48 Starting Medical on Sun Branch 10/07/21 [...] 10-07 Oral, ity of (TYLENOL) 21:52: Q8HPRN, [place] tablet 650 21 Starting Medic al mg [...] ty of succ 23:00: 13:55 s, Q24H, [place] (SOLU-MEDRO 00 :45 First dose Me dical L (PF)) on [place] Branch injection 10/06/21 at 40 mg 1800, Until Discontinu ed, 1 mL KCL 2021- No 40meq 40 mEq, Univers (KLOR-CON 10-06 Oral, ity of M20) tablet 20:00: 20:27 [place] mEq 00 :00 dose, On Medical [place] Branch 10/06/21 at 1500, Routine vancomycin 2021- No 1250mg 1,250 mg, Univers 1250 mg in 10-06-18 IV ity of NS 250 mL 15:30: [...] Yes 5mg 5 mg, Unive rs (PROSCAR) 317 Oral, ity of tablet 5 mg 14:00: DAILY, [place] First dose Medical on [facility] Branch 10/06/21 at 0900, Until Discontinu ed, Routine spironolact Yes 25mg 25 mg, Univ ers one -17 Oral, BID, ity of (ALDACTONE) 13:00: First dose [place] tablet 25 00 on [facility] Medical mg 10/06/21 at Branch 0800, Until Discontinu ed, Routine NORepinephr 2021- No .05ug/k 0.05-0.5 Univers ine 4 mg in 10-06-18 g/min mcg/kg/min ity of 0.9% NaCl 11:23: 11:22 ?64 kg [place] 250 mL 29 :29 (12-120 Medical infusion mL/hr), IV Branc h RTU Infusion, TITRATE, MAP Goal > or = 65 mmHg, Starting on [facility] 10/06/21 at 0623, For 24 hours
I [...] mL 00 on [facility] 10/05/21 at [place] 1999, Until Discontinu ed metoprolol 2021- No 12.5mg 12.5 mg, Univers tartrate 10-06 Oral, BID, ity of (LOPRESSOR) 01:00: 06:33 First dose [place] tablet 12.5 00 :56 on [facility] Medica l mg 10/05/21 at [place] 1999, Until Discontinu ed, Routine azithromyci 2021- [...] of therapy: 72 hours iopamidol 2021- No [id number] 100mL 100 mL, Univers (ISOVUE 10-05 Intravenou ity o f 370-500 mL) 16:00: 15:59 s, ONCE, 1 [place] injection 00 :00 dose, On Medica l 100 mL Wed Branch 10/05/21 at 1115, Routine doxycycline 0 Yes Twice [facility] (MONODOX) 3-18 Daily [facility] 100 MG 00:00: of capsule 00 Medicin e folic acid 0 Yes Daily [facility] (FOLVITE) 1 3-18 College MG tablet 00:00: of 00 Medicin e finasteride 0 Yes 5mg Take 5 mg [facility] (PROSCAR) 5 3-17 by mouth. Col lege MG tablet 00:00: of 00 Medicin e albuterol Yes 1{puff} 1 Puff by [facility] 108 (90 3-17 Inhalation [facility]) 00:00: route. of mcg/act 00 Medicin inhaler e lactulose 2020-0 Yes 20g Q.[id number] Take [address] [facility] (CHRONULAC) 9- [id number] by mouth 3 [facility] 10 gram/15 00:00: 3D (three) Medi lino mL solution 00 times Center daily. lactulose 2020-0 Yes 20g Q.[id number] Take [address] [facility] (CHRONULAC) 9- [id number] by mouth 3 [facility] 10 gram/15 00:00: 3D (three) Medi lino mL solution 00 times Center daily. lactulose 2020-0 Yes 20g Q.[id number] Take [address] [facility] (CHRONULAC) 9-09 [id number] by mouth 3 [facility] 10 gram/15 00:00: 3D (three) Medi lino mL solution 00 times Center daily. lactulose 2020-0 Yes 20g Q.[id number] Take [address] [facility] (CHRONULAC) 9-09 [id number] by mouth 3 [facility] 10 gram/15 00:00: 3D (three) Medi lino mL solution 00 times Center daily. Vital Signs Vital Name Observation Time Observation Value Comments Source WEIGHT 2020-10-05 18:15:00 77.356867 kg HEIGHT 2020-10-05 18:15:00 167.64 cm Systolic blood 2022-06-28 17:00:00 116 mm[Hg] Univer sity of pressure [place] [facility] Diastolic blood 2022-06-28 17:00:00 62 mm[Hg] Unive rsity of pressure [place] [facility] Heart rate 2022-06-28 17:00:00 79 /min [facility] [place] [facility] Respiratory rate 2022-06-28 17:00:00 14 /min [facility] ersity [facility] [place] [facility] Oxygen saturation in 2022-06-28 17:00:00 96 /min University of Arterial blood by [facility] Pulse oximetry Branch Body temperature 2022-06-28 14:37:00 36.28 [place] [facility] [place] [facility] Body weight 2022-06-22 18:00:00 71.668 kg [facility] [place] [facility] BMI 2022-06-22 18:00:00 25.51 kg/m2 [facility] [place] [facility] Systolic blood 2022-06-28 14:37:00 103 mm[Hg] Univer sity of pressure [place] [facility] Diastolic blood 2022-06-28 14:37:00 62 mm[Hg] Unive rsity of pressure [place] [facility] Heart rate 2022-06-28 14:37:00 84 /min [facility] [place] [facility] Body temperature 2022-06-28 14:37:00 36.28 [place] [facility] [place] [facility] Respiratory rate 2022-06-28 14:37:00 21 /min [facility] [place] [facility] Oxygen saturation in 2022-06-28 14:37:00 95 /min University of Arterial blood by [facility] Pulse oximetry Branch Body weight 2022-06-22 18:00:00 71.668 kg [facility] [place] [facility] BMI 2022-06-22 18:00:00 25.51 kg/m2 [facility] [place] [facility] Systolic blood 2022-06-07 16:14:00 87 mm[Hg] Univer sity of pressure [place] [facility] Diastolic blood 2022-06-07 16:14:00 59 mm[Hg] Unive rsity of pressure [place] [facility] Heart rate 2022-06-07 16:14:00 93 /min [facility] [place] [facility] Respiratory rate 2022-06-07 16:14:00 17 /min [facility] [place] [facility] Oxygen saturation in 2022-06-07 16:14:00 96 /min University of Arterial blood by [facility] lino Pulse oximetry Branch Body temperature 2022-06-07 15:57:00 36.11 [place] [facility] [place] [facility] [place] BMI 2022-05-24 16:10:00 23.50 kg/m2 [facility] [place] [facility] [place] Body height 2022-05-24 16:10:00 167.6 cm [facility] [place] [facility] [place] Body weight 2022-05-24 16:10:00 66 kg [facility] [place] [facility] Systolic blood 2022-06-07 14:14:00 117 mm[Hg] Univer sity of pressure [place] [facility] Diastolic blood 2022-06-07 14:14:00 84 mm[Hg] Unive rsity of pressure [facility] [place] Heart rate 2022-06-07 14:14:00 89 /min [facility] [place] [facility] [place] Body temperature 2022-06-07 14:14:00 36.17 [place] [facility] [facility] ersity of [place] [facility] [place] Respiratory rate 2022-06-07 14:14:00 18 /min [facility] [facility] ersity of [place] [facility] Oxygen saturation in 2022-06-07 14:14:00 99 /min University of Arterial blood by [facility] lino Pulse oximetry Branch Body height 2022-05-24 16:10:00 167.6 cm [facility] [place] [facility] [place] Body weight 2022-05-24 16:10:00 66 kg [facility] [place] [facility] [place] BMI 2022-05-24 16:10:00 23.50 kg/m2 [facility] [place] [facility] Systolic blood 2022-03-29 19:43:00 111 mm[Hg] [facility] pressure Medicine Diastolic blood 2022-03-29 19:43:00 73 mm[Hg] [facility] pressure Medicine Heart rate 2022-03-29 19:43:00 80 /min [facility] Body height 2022-03-29 19:43:00 170.2 cm [facility] Body weight 2022-03-29 19:43:00 71.215 kg [facility] BMI 2022-03-29 19:43:00 24.59 kg/m2 [facility] HEIGHT 2022-02-09 15:09:00 167.6 cm WEIGHT 2022-02-09 15:09:00 58.968 kg HEIGHT 2022-02-09 15:09:00 167.6 cm WEIGHT 2022-02-09 15:09:00 58.968 kg HEIGHT 2022-02-09 15:09:00 167.6 cm WEIGHT 2022-02-09 15:09:00 58.968 kg Systolic blood 2021-10-08 15:00:00 107 mm[Hg] [facility] Diastolic blood 2021-10-08 15:00:00 67 mm[Hg] [facility] Heart rate 2021-10-08 15:00:00 89 /min [facility] Respiratory rate 2021-10-08 15:00:00 24 /min [facility] Oxygen saturation in 2021-10-08 15:00:00 96 /min [facility] Arterial blood by [facility] Pulse oximetry Branch Body temperature 2021-10-08 13:56:00 36.56 [facility] Body weight 2021-10-07 09:39:00 65.998 kg [facility] BMI 2021-10-07 09:39:00 23.48 kg/m2 [facility] Body height 2021-10-06 17:32:00 167.6 cm [facility] WEIGHT 2020-10-05 18:15:00 77.781409 kg HEIGHT 2020-10-05 18:15:00 167.64 cm WEIGHT 2020-06-11 22:20:00 68.360246 kg HEIGHT 2020-06-11 22:20:00 167.64 cm Systolic blood 2022-08-30 08:51:00 146 mm[Hg] [facility] Diastolic blood 2022-08-30 08:51:00 78 mm[Hg] [facility] Heart rate 2022-08-30 08:51:00 85 /min [facility] Body temperature 2022-08-30 08:51:00 36.78 [place] [facility] Respiratory rate 2022-08-30 08:51:00 18 /min [facility] Body height 2022-08-30 08:51:00 167.6 cm [facility] Body weight 2022-08-30 08:51:00 78.109 kg [facility] BMI 2022-08-30 08:51:00 27.79 kg/m2 [facility] Oxygen saturation in 2022-08-30 08:51:00 94 /min [facility] Arterial blood by Medical Ce [facility]ter Pulse oximetry Systolic blood 2022-06-27 13:49:00 116 mm[Hg] [facility] Diastolic blood 2022-06-27 13:49:00 69 mm[Hg] [facility] Heart rate 2022-06-27 13:49:00 87 /min [facility] Body temperature 2022-06-27 13:49:00 36.83 [place] [facility] Body height 2022-06-27 13:49:00 167.6 cm [facility] Body weight 2022-06-27 13:49:00 73.029 kg [facility] BMI 2022-06-27 13:49:00 25.99 kg/m2 [facility] Oxygen saturation in 2022-06-27 13:49:00 96 /min [facility] Arterial blood by [facility] Pulse oximetry Systolic blood 2022-04-10 09:43:00 127 mm[Hg] [facility] Diastolic blood 2022-04-10 09:43:00 74 mm[Hg] [facility] Heart rate 2022-04-10 09:43:00 84 /min [facility] Body temperature 2022-04-10 09:43:00 36.33 [place] [facility] Body weight 2022-04-10 09:43:00 64.275 kg [facility] BMI 2022-04-10 09:43:00 22.40 kg/m2 [facility] Oxygen saturation in 2022-04-10 09:43:00 96 /min [facility] Arterial blood by [facility] Pulse oximetry Body height 2022-03-09 07:21:00 169.4 cm [facility] Respiratory rate 2022-03-08 13:00:00 18 /min [facility] Procedures Procedure Date / Time Performing Source Performed Clinician PHYSICIAN ORDERS 2022-08-29 Doctor Unassigned, [facility] 06:01:00 [facility] PHACOEMULSIFICATION OF 2022-06-[address] [facility] CATARACT WITH INTRAOCULAR 15:57:00 Medica l Branch LENS IMPLANT CBC W/PLT COUNT & AUTO 2022-06-27 Crist[facility] Swartz [facility] DIFFERENTIAL 15:43:00 [facility] ALPHA FETOPROTEIN (AFP), 2022-06-27 Cristela Swartz [facility] TUMOR MARKER 15:43:00 [facility] BASIC METABOLIC PANEL 2022-06-27 Cristela Swartz [facility] 15:43:00 [facility] HEPATIC FUNCTION PANEL 2022-06-27 [facility]z [facility] 15:43:00 [facility] PROTHROMBIN TIME/INR 2022-06-[address] [facility] 15:43:00 [facility] CBC W/PLT COUNT & AUTO 2022-06-27 Crist[facility] Swartz [facility] DIFFERENTIAL 15:43:00 Medical Center ASSIGNMENT OF BENEFITS 2022-06-26 Doctor Unassigned, [facility] 16:45:43 [facility] PHACOEMULSIFICATION OF 2022-06-[address] [facility] CATARACT WITH INTRAOCULAR 15:08:00 Medica l Branch LENS IMPLANT DAY SURGERY - ADC 2022-06-07 Doctor Unassigned, [facility] 06:01:00 [facility] CONSENT/REFUSAL FOR DIAGNOSIS 2022-05-29 Doctor Unassigned, [facility] AND TREATMENT 18:04:17 [facility] CONSENT/REFUSAL FOR DIAGNOSIS 2022-05-29 Doctor Unassigned, [facility] AND TREATMENT 18:04:17 [facility] ASSIGNMENT OF BENEFITS 2022-05-29 Doctor Unassigned, [facility] 18:02:11 [facility] ASSIGNMENT OF BENEFITS 2022-05-29 [facility] NOTICE OF BILLING PRACTICES 2022-05-29 Doctor Unassigned, [facility] FOR MEDICARE PATIENTS 18:01:45 [facility] NOTICE OF BILLING PRACTICES 2022-05-29 Doctor Unassigned, [facility] FOR MEDICARE PATIENTS 18:01:45 [facility] PATIENT FINANCIAL POLICY 2022-05-29 Doctor Unassigned, [facility] 18:00:08 [facility] PATIENT FINANCIAL POLICY 2022-05-29 Doctor Unassigned, [facility] 18:00:08 [facility] NO SHOW OR MISSED APPOINTMENT 2022-05-29 Doctor Unassigned, [facility] POLICY ACKNOWLEDGEMENT 17:59:39 [facility] NO SHOW OR MISSED APPOINTMENT 2022-05-29 Doctor Unassigned, [facility] POLICY ACKNOWLEDGEMENT 17:59:39 [facility] NOTICE OF PRIVACY PRACTICES 2022-05-[address] [facility] 17:59:01 [facility] NOTICE OF PRIVACY PRACTICES 2022-05-29 Doctor Unassigned, [facility] 17:59:01 [facility] CONSENT/REFUSAL FOR DIAGNOSIS 2022-05-29 [facility] 17:58:37 [facility] CONSENT/REFUSAL FOR DIAGNOSIS 2022-05-29 Doctor Unassigned [facility] AND TREATMENT 17:58:37 [facility] ASSIGNMENT OF BENEFITS 2022-05-29 [facility] 17:58:05 [facility] ASSIGNMENT OF BENEFITS 2022-05-29 [facility] 17:58:05 [facility] AUTHORIZATION FOR RELEASE OF 2022-05-29 [facility] PHI 06:01:00 [facility] AUTHORIZATION FOR RELEASE OF 2022-05-29 [facility] PH[facility] 06:01:00 [facility] AMB REF TO GEN INT MEDICINE 2022-04-13 [facility] 10:44:26 Medicine BASIC METABOLIC PANEL 2022-04-10 Mary Poon [facility] 13:35:00 [facility] HEPATIC FUNCTION PANEL 2022-04-[address] [facility] 13:35:00 Medical Center CBC W/PLT COUNT & AUTO 2022-04-[address] [facility] DIFFERENTIAL 13:35:00 [facility] Center PROTHROMBIN TIME/INR 2022-04-[address] [facility] 13:35:00 [facility] CBC W/PLT COUNT & AUTO 2022-04-[address] [facility] DIFFERENTIAL 13:35:[address] ABDOMEN/PELVIS WITH IV 2022-04-[address] [facility] CONTRAST 13:08:00 [facility] ECHO W CONTRAST & DOPPLER 2022-03-30 Everette, Araceli Andujar [facility] 12:44:32 [facility] CAROTID DOPPLER BILATERAL 2022-03-30 Everette, Araceli Andujar [facility] 12:19:00 [facility] ECG 12-LEAD 2022-03-30 Everette, Araceli Andujar [facility] 12:06:19 [facility] BLOOD GAS, ARTERIAL 2022-03-30 Everette, Araecli Andujar [facility] 11:43:00 [facility] XR MANDIBLE 4 VIEWS MIN 2022-03-30 Everette, Araceli Andujar [facility] 10:38:00 [facility] XR CHEST 2 VIEWS 2022-03-30 Everette, Araceli Andujar [facility] 10:30:00 [facility] XR DXA BONE DENSITY STUDY 2022-03-30 Everette, Araceli Andujar [facility] 10:25:00 [facility] MR ABDOMEN WITH & WITHOUT IV 2022-03-30 Everette, Araceli Castillo [facility] 07:47:00 [facility] DRUG SCREEN, URINE, 2022-03-08 Everette, Araceli Andujar [facility] TRANSPLANT 12:43:00 [facility] URINALYSIS W/ MICROSCOPIC 2022-03-08 Everette, Araceli Andujar [facility] 12:43:00 [facility] CALCIUM, IONIZED 2022-03-08 Everette, Araceli Andujar [facility] 08:58:00 [facility] HEPATITIS C PCR, QUANTITATIVE 2022-03-08 Everette, Araceli Andujar [facility] 08:58:00 [facility] MISCELLANEOUS LAB ORDER 2022-03-08 Everette, Araceli Andujar [facility] 08:57:00 Medical Center COMPREHENSIVE METABOLIC PANEL 2022-03-08 Everette, Araceli Andujar [facility] 08:57:00 Medical Center BILIRUBIN, DIRECT 2022-03-08 Everette, Araceli Andujar [facility] 08:57:00 Medical Center GAMMA GLUTAMYL TRANSFERASE 2022-03-08 Everette, Araceli Andujar [facility] (GGT) 08:57:00 [facility] MAGNESIUM 2022-03-08 Everette, Araceli Andujar [facility] 08:57:00 Medical Center PHOSPHORUS 2022-03-08 Everette, Araceli Andujar [facility] 08:57:00 [facility] CBC W/PLT COUNT & AUTO 2022-03-08 Everette, Araceli Andujar [facility] DIFFERENTIAL 08:57:00 [facility] ACTIN (SMOOTH MUSCLE) 2022-03-08 Everette, Araceli Andujar [facility] ANTIBODY, IGG 08:57:00 [facility] TRANSFERRIN 2022-03-08 Everette, Araceli Andujar [facility] 08:57:00 [facility] Center IRON, TIBC, % SAT. (WITHOUT 2022-03-08 Everette, [facility] 08:57:00 [facility] FERRITIN 2022-03-08 Everette, Araceli Andujar [facility] 08:57:00 [facility] CERULOPLASMIN 2022-03-08 Everette, Araceli Andujar [facility] 08:57:00 [facility] VITAMIN D, 25-HYDROXY 2022-03-08 Everette, Araceli [facility]dujar [facility] 08:57:00 [facility] LIPID PANEL 2022-03-08 Everette, Araceli Andujar [facility] 08:57:00 [facility] HEMOGLOBIN A1C 2022-03-08 Everette, Araceli Andujar [facility] 08:57:00 [facility] ETHANOL 2022-03-08 Everette, Araceli Andujar [facility] 08:57:00 [facility] ALPHA FETOPROTEIN (AFP), 2022-03-08 Everette, [facility]jar [facility] TUMOR MARKER 08:57:00 [facility] CARBOHYDRATE ANTIGEN 19-9 (CA 2022-03-08 Everette, Araceli Andujar [facility] 19-9) 08:57:00 [facility] CARCINOEMBRYONIC ANTIGEN 2022-03-08 Everette, [facility]jar [facility] (CEA) 08:57:00 Medical Center ZINC 2022-03-08 Everette, Araceli nAdujar [facility] 08:57:00 Medical Center URIC ACID 2022-03-08 Everette, Araceli Andujar [facility] 08:57:00 Medical Center TSH 2022-03-08 Everette, Araceli Andujar [facility] 08:57:00 Medical Center T3 2022-03-08 Everette, Araceli Andujar [facility] 08:57:00 Medical Center T4 2022-03-08 Everette, Araceli Andujar [facility] 08:57:00 Medical Center HEPATITIS B CORE ANTIBODY, 2022-03-08 Everette, Araceli Andujar [facility] TOTAL 08:57:00 [facility] HEPATITIS B CORE ANTIBODY, 2022-03-08 Everette, Araceli Andujar [facility] IGM 08:57:00 [facility] HC LAB HIV-1 AG W/HIV-1&2 AB 2022-03-08 Everette, [facility] 08:57:00 [facility] CYTOMEGALOVIRUS ANTIBODY, IGG 2022-03-08 Everette, Araceli Andujar [facility] 08:57:00 [facility] Center EBV ANTIBODY, IGM 2022-03-08 Everette, Araceli Andujar [facility] 08:57:00 [facility] RUBEOLA ANTIBODY IGG 2022-03-08 Everette, Araceli Andujar [facility] 08:57:00 Medical Center MUMPS ANTIBODY, IGG 2022-03-08 Everette, Araceli Andujar [facility] 08:57:00 [facility] Center RUBELLA ANTIBODY, IGG 2022-03-08 Everette, Araceli Andujar [facility] 08:57:00 Medical Center VARICELLA ZOSTER ANTIBODY, 2022-03-08 Everette, Araceli Andujar [facility] IGG 08:57:00 Medical Center CRYPTOCOCCAL ANTIGEN 2022-03-08 Everette, Araceli Andujar [facility] 08:57:00 Medical Center RPR 2022-03-08 Everette, Araceli Andujar [facility] 08:57:00 Medical Center T SPOT TB 2022-03-08 Everette, Araceli Andujar [facility] 08:57:00 Medical Center ALPHA-1 ANTITRYPSIN MUTATION 2022-03-08 Everette, [facility] ANALYSIS 08:57:00 Medical Center HEPATITIS C GENOTYPE 2022-03-08 Everette, Araceli Andujar [facility] 08:57:00 Medical Center PSA 2022-03-08 Everette, Araceli Andujar [facility] 08:57:00 [facility] CBC W/PLT COUNT & AUTO 2022-03-08 Eveertte, Araceli Andujar [facility] DIFFERENTIAL 08:57:00 [facility] FIBRINOGEN 2022-03-08 Everette, Araceli Andujar [facility] 08:56:00 Medical Center PROTHROMBIN TIME/INR 2022-03-08 Everette, Arac[facility]dujar [facility] 08:56:00 [facility] APTT 2022-03-08 Everette, Araceli Andujar [facility] 08:56:00 [facility] MITOCHONDRIA M2 ANTIBODY 2022-03-08 Everette, [facility]dujar [facility] (IGG) 08:56:00 [facility] TESTOSTERONE, FREE + TOTAL 2022-03-08 Everette, Araceli Andujar [facility] 08:56:00 [facility] SARS-COV2/RT-PCR ([facility] & REF 2022-02-17 Suyapa Webb [facility] 07:47:00 [facility] VARICELLA ZOSTER PCR, 2022-02-15 Nida Subramanian [facility] QUALITATIVE 20:01:00 [facility] PROTHROMBIN TIME/INR 2022-02-14 Nely Fuchs [facility] 11:57:00 [facility] CBC W/PLT COUNT & AUTO 2022-02-14 Rogelio Gil [facility] DIFFERENTIAL 05:02:00 [facility] BASIC METABOLIC PANEL 2022-02-14 Rogelio Gil [facility] 05:02:00 [facility] HEPATIC FUNCTION PANEL 2022-02-14 Jeffery Rogelio [facility] 05:02:00 [facility] CBC W/PLT COUNT & AUTO 2022-02-14 Rogelio Gil [facility] DIFFERENTIAL 05:02:00 [facility] TISSUE EXAM 2022-02-[address] [facility] 08:26:00 [facility] CYTOLOGY 2022-02-[address] [facility] 08:24:00 [facility] CYTOLOGY REQUEST 2022-02-[address] [facility] 08:24:00 [facility] BODY FLUID CULTURE + GRAM 2022-02-13 Sheridan Mil[facility] Alford [facility] STAIN 08:21:00 [facility] HERNIORRHAPHY, UMBILICAL 2022-02-[address] [facility] 07:13:00 [facility] PROTHROMBIN TIME/INR 2022-02-[address] [facility] 04:46:00 [facility] ABORH, MANUAL 2022-02-[address] [facility] 04:46:00 [facility] CBC W/PLT COUNT & AUTO 2022-02-13 Suyapa Webb PGena [facility] DIFFERENTIAL 03:38:00 [facility] BASIC METABOLIC PANEL 2022-02-13 Suyapa Webb PGena [facility] 03:38:00 [facility] MAGNESIUM 2022-02-[address] [facility] 03:38:00 [facility] HEPATIC FUNCTION PANEL 2022-02-13 Suyapa Webb PGena [facility] 03:38:00 [facility] PROTHROMBIN TIME/INR 2022-02-[address] [facility] 03:38:00 [facility] APTT 2022-02-[address] [facility] 03:38:00 [facility] PHOSPHATIDYLETHANOL, BLOOD 2022-02-[address] [facility] 03:38:00 [facility] HEPATITIS B SURFACE ANTIBODY 2022-02-[address] [facility] 03:38:00 [facility] TYPE AND SCREEN, AUTOMATED 2022-02-13 Kt Garrett [facility] 03:38:00 [facility] CBC W/PLT COUNT & AUTO 2022-02-13 Suyapa Webb PGena [facility] DIFFERENTIAL 03:38:00 [facility] CBC W/PLT COUNT & AUTO 2022-02-12 Suyapa Webb PGena [facility] DIFFERENTIAL 03:29:00 [facility] BASIC METABOLIC PANEL 2022-02-12 Suyapa Webb PGena [facility] 03:29:00 [facility] MAGNESIUM 2022-02-12 Suyapa Webb P. [facility] 03:29:00 [facility] HEPATIC FUNCTION PANEL 2022-02-12 Tracey, Suyapa P. [facility] 03:29:00 [facility] PROTHROMBIN TIME/INR 2022-02-12 Tracey, Suyapa P. [facility] 03:29:00 [facility] CBC W/PLT COUNT & AUTO 2022-02-12 Tracey, Suyapa P. [facility] DIFFERENTIAL 03:29:00 [facility] CBC W/PLT COUNT & AUTO 2022-02-11 Tracey, Suyapa P. [facility] DIFFERENTIAL 04:35:00 [facility] BASIC METABOLIC PANEL 2022-02-11 Tracey, Suyapa P. [facility] 04:35:00 [facility] MAGNESIUM 2022-02-11 Tracey, Suyapa P. [facility] 04:35:00 [facility] HEPATIC FUNCTION PANEL 2022-02-11 Tracey, Suyapa P. [facility] 04:35:00 [facility] PROTHROMBIN TIME/INR 2022-02-11 Tracey, Suyapa P. [facility] 04:35:00 [facility] CBC W/PLT COUNT & AUTO 2022-02-11 Tracey, Suyapa P. [facility] DIFFERENTIAL 04:35:00 [facility] US PARACENTESIS 2022-02-[address] [facility] 12:58:00 [facility] BODY FLUID CELL COUNT WITH 2022-02-10 [facility] DI[facility] 12:32:00 [facility] BODY FLUID CULTURE + GRAM 2022-02-[address] [facility] STAIN 12:32:00 [facility] LACTATE DEHYDROGENASE (LDH), 2022-02-[address] [facility] BODY FLUID 12:32:00 [facility] PROTEIN, BODY FLUID 2022-02-[address] [facility] 12:32:00 [facility] GLUCOSE, BODY FLUID 2022-02-10 Tracey, Suyapa P. [facility] 12:32:00 [facility] XR ABDOMEN/KUB 1 VIEW 2022-02-[address] [facility] PORTABLE 04:18:00 [facility] URINALYSIS W/ REFLEX URINE 2022-02-09 [address] [facility] CULTURE 23:33:00 [facility] CT ABDOMEN/PELVIS WITH IV 2022-02-[address] [facility] CONTRAST 20:53:00 [facility] ECG 12-LEAD 2022-02-[address] [facility] 19:28:35 [facility] ECG 12-LEAD 2022-02-09 Unknown, Hl7 Doctor [facility] 19:28:35 [facility] ECG 12-LEAD 2022-02-09 Unknown, Hl7 Doctor [facility] 19:28:35 [facility] BLOOD CULTURE 2022-02-[address] [facility] 19:11:00 [facility] AMMONIA 2022-02-[address] [facility] 19:09:00 [facility] SARS-COV2/RT-PCR ([facility] & REF 2022-02-09 Suyapa Webb [facility] 19:08:00 [facility] LACTIC ACID, VENOUS 2022-02-[address] [facility] 18:49:00 [facility] BLOOD CULTURE 2022-02-[address] [facility] 18:48:00 [facility] CBC W/PLT COUNT & AUTO 2022-02-[address] [facility] [facility] DIFFERENTIAL 18:48:00 [facility] COMPREHENSIVE METABOLIC PANEL 2022-02-[address] [facility] 18:48:00 [facility] LIPASE 2022-02-[address] [facility] 18:48:00 [facility] PT/APTT 2022-02-[address] [facility] 18:48:00 [facility] CBC W/PLT COUNT & AUTO 2022-02-[address] [facility] DIFFERENTIAL 18:48:00 [facility] PROTHROMBIN TIME/INR 2022-02-[address] [facility] 13:40:00 [facility] BLOOD CULTURE 2022-02-[address] [facility] 13:37:00 [facility] MISCELLANEOUS LAB ORDER 2022-02-[address] [facility] 13:37:00 [facility] COMPREHENSIVE METABOLIC PANEL 2022-02-09 ErosRosalva [facility] 13:37:00 [facility] BILIRUBIN, DIRECT 2022-02-[address] [facility] 13:37:00 [facility] CBC W/PLT COUNT & AUTO 2022-02-[address] DIFFERENTIAL 13:37:00 [facility] HEPATITIS A ANTIBODY, IGG 2022-02-[address] [facility] 13:37:00 [facility] HEPATITIS C ANTIBODY 2022-02-[address] [facility] 13:37:00 [facility] [id number]\\, SERUM 2022-02-[address] [facility] 13:37:00 [facility] ANTI-NUCLEAR ANTIBODY (OSKAR) 2022-02-[address] [facility] 13:37:00 [facility] LACTIC ACID, VENOUS 2022-02-[address] [facility] 13:37:00 [facility] PROCALCITONIN 2022-02-[address] [facility] 13:37:00 [facility] OSKAR TITER AND PATTERN 2022-02-[address] [facility] 13:37:00 [facility] CBC W/PLT COUNT & AUTO 2022-02-[address] [facility] DIFFERENTIAL 13:37:00 [facility] EKG-SCANNED 2022-02-[address] [facility] 00:00:00 Scanning [facility] [id number] 2021-10-24 CANJO.01 [facility] 00:00:00 [facility] [id number] 2021-10-24 CANJO.01 [facility] 00:00:00 [facility] [id number] 2021-10-19 CANJO.01 [facility] 00:00:00 [facility] Center [id number] 2021-10-19 CANJO.01 [facility] 00:00:00 [facility] [id number] 2021-10-17 MOIKH [facility] 00:00:00 [facility] [id number] 2021-10-17 MOIKH [facility] 00:00:00 [facility] [id number] 2021-10-17 CLIDO [facility] 00:00:00 [facility] [id number] 2021-10-17 SINSI [facility] 00:00:00 [facility] [id number] 2021-10-17 SINSI [facility] 00:00:00 [facility] [id number] 2021-10-17 MOIKH [facility] 00:00:00 [facility] [id number] 2021-10-17 MOIKH [facility] 00:00:00 [facility] [id number] 2021-10-17 CLIDO [facility] 00:00:00 [facility] [id number] 2021-10-17 SINSI [facility] 00:00:00 [facility] [id number] 2021-10-17 SINSI [facility] 00:00:00 [facility] [id number] 2021-10-14 CLIDO [facility] 00:00:00 [facility] [id number] 2021-10-14 MOIKH [facility] 00:00:00 [facility] [id number] 2021-10-14 CLIDO [facility] 00:00:00 [facility] [id number] 2021[facility]10-14 [facility] [id number] 2021-10-11 CANJO.01 [facility] 00:00:00 [facility] [id number] 2021-10-11 CANJO.01 [facility] 00:00:00 [facility] Center MAGNESIUM 2021-10-08 [facility] 10:00:00 [facility] COMP. METABOLIC PANEL ([id number]) 2021-10-[facility] 10:00:00 [facility] CBC WITHOUT DIFF 2021-10-08 [facility] [place] 10:00:00 [facility] N-TERMINAL PRO-BNP 2021-10-08 [facility] 10:00:00 Medical Branch MAGNESIUM 2021-10-07 [facility] [place] 09:44:00 Medical Branch COMP. METABOLIC PANEL ([id number]) 2021-10-07 KiraYinkaRashad [facility] 09:44:00 Medical Branch CBC WITH DIFF 2021-10-07 [facility] [place] 09:44:[address] HEAD WO CONTRAST 2021-10-06 [facility] [place] 23:27:16 Medical Branch XR ELBOW <3 VW LEFT 2021-10-06 [facility] [place] 23:19:00 Medical Branch TRANSTHORACIC ECHO (TTE) 2021-10-06 Fredo Berrios [facility] COMPLETE 17:32:04 [facility] PNEUMOCOCCAL ANTIGEN 2021-10-06 Yash [facility] 12:20:00 [facility] CORTISOL AM 2021-10-06 [facility] x[place] 11:45:00 [facility] LACTIC ACID WHOLE BLOOD 2021-10-06 [facility] 09:24:00 Medical Branch AMMONIA, PLASMA 2021-10-06 Fredo Berrios [facility] [place] 08:28:00 Medical Branch MAGNESIUM 2021-10-06 Yash [facility] xa 08:21:00 Medical Branch THYROID STIMULATING HORMONE 2021-10-06 Sandra Dorsey [facility] 08:21:00 Medical Branch COMP. METABOLIC PANEL ([id number]) 2021-10-06 Fredo Berrios [facility] 08:21:00 Medical Branch US ABDOMEN LIMITED 2021-10-06 Fredo Berrios [facility] 02:00:00 [facility] TROPONIN I 2021-10-06 Fredo Berrios [facility] xa 01:12:00 [facility] HEPATITIS C VIRUS (HCV) BY 2021-10-06 Fredo Berrios [facility] QUANTITATIVE NAAT 01:09:00 [facility] LACTIC ACID WHOLE BLOOD 2021-10-06 Yash [facility] 00:02:00 [facility] MYCOPLASMA PNEUMONIAE 2021-10-06 Fredo Berrios [facility] ANTIBODY, IGM 00:01:00 [facility] HEPATITIS B SURFACE ANTIBODY 2021-10-06 Fredo Berrios [facility] 00:01:00 Medical Branch HCV ANTIBODY 2021-10-06 Fredo Berrios [facility] xa 00:01:00 Medical Branch HBC ANTIBODY (IGM & IGG) 2021-10-06 Fredo Berrios [facility] 00:01:00 Medical Branch PROCALCITONIN 2021-10-06 Fredo Berrios [facility] [place] 00:01:00 Medical Branch MRSA / MSSA SCREEN BY PCR, 2021-10-05 Fredo Berrios [facility] NARES 23:52:00 Medical Branch RESPIRATORY PANEL BY PCR 2021-10-05 Fredo Berrios [facility] 23:52:00 [facility] LACTIC ACID WHOLE BLOOD 2021-10-05 [facility] 20:29:00 [facility] BLOOD CULTURE SCREEN 2021-10-05 [facility] 17:35:00 [facility] URINE CULTURE 2021-10-05 [facility] 17:35:00 Medical [place] BLOOD CULTURE WORKUP 2021-10-05 [facility] 17:35:00 [facility] GRAM POSITIVE BLOOD PATHOGENS 2021-10-05 Singer [facility] DNA PROBE-ANAEROBIC 17:35:00 Medical [facility] ABDOMEN PELVIS W CONTRAST 2021-10-05 Singer [facility] 16:10:[address] [facility] [address] CHEST PULMONARY ANGIOGRAM 2021-10-05 [facility] 16:10:00 [facility] PATIENT FINANCIAL POLICY 2021-10-05 Doctor Aida, [facility] 14:58:02 [place] [facility] NO SHOW OR MISSED APPOINTMENT 2021-10-05 Doctor Aida, [facility] POLICY ACKNOWLEDGEMENT 14:57:08 [place] [facility] B ranch NOTICE OF PRIVACY PRACTICES 2021-10-05 Doctor Unameghan, [facility] 14:55:14 [place] [facility] CONSENT/REFUSAL FOR DIAGNOSIS 2021-10-05 Doctor Aida, [facility] AND TREATMENT 14:54:54 [place] [facility] ASSIGNMENT OF BENEFITS 2021-10-[address] [facility] 14:54:42 [place] [facility] AC PANEL 20 + LACTIC ACID 2021-10-05 Singer [facility] 14:48:00 Medical Branch COVID-19 (ID NOW RAPID 2021-10-05 Singer [facility] TESTING) 14:48:00 Medical Branch LAB ONLY COVID INTERPRETATION 2021-10-05 [facility] 14:48:00 Medical Branch AMMONIA, PLASMA 2021-10-05 Singer [facility] [place] 14:47:00 Medical Branch TROPONIN I 2021-10-05 Singer [facility] [place] 14:47:00 Medical Branch COMP. METABOLIC PANEL ([id number]) 2021-10-05 [facility] 14:47:00 Medical Branch CBC WITH DIFF 2021-10-05 Singer [facility] [place] 14:47:00 Medical Branch PROTHROMBIN TIME / INR 2021-10-05 [facility] 14:47:00 [facility] D-DIMER 2021-10-05 Singer [facility] [place] 14:47:00 Medical Branch URINALYSIS 2021-10-05 Singer [facility] xa 14:47:00 [facility] N-TERMINAL PRO-BNP 2021-10-05 Singer [facility] 14:47:00 Medical Branch EKG-12 LEAD 2021-10-05 Fredo Berrios [facility] 14:44:49 Medical Branch CONSENT/REFUSAL FOR DIAGNOSIS 2021-10-05 Doctor Unassigned, [facility] AND TREATMENT 14:31:59 [place] [facility] NOTICE OF PRIVACY PRACTICES 2021-10-05 Doctor Unassigned, [facility] 14:31:43 [place] [facility] Plan of Care Planned Activity Planned Date Details Comments Source Future Scheduled 2023-03-[address] [facility] 00:00:00 (Season Ended) [code = [facility] INFLUENZA VACCINE (Season Ended)] Future Scheduled 2023-02-[address] [...] Cessation Counseling and Screening (12+)] Future Scheduled 2022-07-[address] [facility] 00:00:00 (12+) [code = Medical Center DEPRESSION SCREENING (12+)] Future Scheduled 2022-07-23 FALLS RISK SCREENING [facility] 00:00:00 [code = FALLS RISK Medical C enter SCREENING] Future Scheduled 2022-03-29 Screening for malignant [facility] Test 14:45:09 neoplasm of colon Medicine (procedure) [code = 680150314] Future Scheduled 2022-03-29 COVID-19 Vaccine (#1) [facility] Test 14:45:09 [code = COVID-19 Medicine Vaccine (#1)] Future Scheduled 2022-03-29 Pneumococcal 65+ (1 - [facility] Test 14:45:09 PCV) [code = Medicine Pneumococcal 65+ (1 - PCV)] Future Scheduled 2022-03-29 TETANUS SHOT (ADULT) [facility] Test 14:45:09 [code = TETANUS SHOT Medicin e (ADULT)] Future Scheduled 2022-03-29 ZOSTER VACCINE (1 of 2) [facility] Test 14:45:09 [code = ZOSTER VACCINE Medic ine (1 of 2)] Future Scheduled 2022-03-29 MEDICARE AWV (Initial) [facility] Test 14:45:09 [code = MEDICARE AWV Medicin e (Initial)] Future Scheduled 2022-03-29 FALL SCREEN [code = [facility] Test 14:45:09 FALL SCREEN] Medicine Future Scheduled 2022-03-29 FLU VACCINE > 6 MONTHS B [facility] Test 14:45:09 [code = FLU VACCINE > [...] [facility] Test 00:00:00 2) [code = [facility] Medical Center VACCINES (1 of 2)] Future Scheduled 2006 SHINGLES VACCINES ([address] [facility] 00:00:00 2) [code = SHINGLES Medical Center VACCINES (1 of 2)] Future Scheduled 2006 SHINGLES VACCINES ([address] [facility] 00:00:00 2) [code = SHINGLES [facility] VACCINES (1 of 2)] Future Scheduled [...] VACCINES (1 - Tdap)] Future Scheduled 1975 SHINGLES VACCINES ([address] [facility] 00:00:00 2) [code = SHINGLES [facility] VACCINES (1 of 2)] Future Scheduled 1962 PNEUMOCOCCAL 65+ YRS (1 [...] [facility] Test 00:00:00 [code = CT Colonography Medi lino Center (combo)] Future Scheduled 1956 Screening for malignant [facility] 00:00:00 neoplasm of colon Medical Ce nter (procedure) [code = 616470427] Future Scheduled 1956 Screening for malignant [facility] 00:00:00 neoplasm of colon Medical Ce nter (procedure) [code = 970316806] Future Scheduled 1956 Screening for malignant [facility] 00:00:00 neoplasm of colon Medical Ce nter (procedure) [code = 749256021] Future Scheduled 1956 Screening for malignant [facility] 00:00:00 neoplasm of colon Medical Ce nter (procedure) [code = 377071803] Future Scheduled 1956 Sigmoidoscopy [code = [facility] S[facility]oidoscopy] Medical Cente r Future Scheduled 1956 CT Colonography (combo) [facility] 00:00:00 [code = CT Colonography Medi lino Center (combo)] Future Scheduled 1956 Screening for malignant [facility] 00:00:00 neoplasm of colon Medical Ce nter (procedure) [code = 620562843] Future Scheduled 1956 Screening for malignant [facility] 00:00:00 neoplasm of colon Medical Ce nter (procedure) [code = 729483565] Future Scheduled 1956 Screening for malignant [facility] 00:00:00 neoplasm of colon Medical Ce nter (procedure) [code = 042514690] Future Scheduled 1956 Screening for malignant [facility] 00:00:00 neoplasm of colon Medical Ce nter (procedure) [code = 942820414] Future Scheduled 1956 Sigmoidoscopy [facility]code [facility] S[facility]oidoscopy] Medical Cente r Future Scheduled 1956 CT Colonography (combo) [facility] 00:00:00 [code = CT Colonography [facility] (combo)] Future Scheduled 1956 Screening for malignant [facility] 00:00:00 neoplasm of colon Medical Ce nter (procedure) [code = 301446373] Future Scheduled 1956 Screening for malignant [facility] 00:00:00 neoplasm of colon Medical Ce nter (procedure) [code = 853310334] Future Scheduled 1956 Screening for malignant [facility] 00:00:00 neoplasm of colon Medical Ce nter (procedure) [code = 439567746] Future Scheduled 1956 Screening for malignant [facility] 00:00:00 neoplasm of colon Medical Ce nter (procedure) [code = 272403081] Future Scheduled 1956 Sigmoidoscopy [facility]code = [facility] 00:[facility] S[facility]oidoscopy] Medical Cente r Future Scheduled 1956 CT Colonography (combo) [facility] 00:00:00 [code = CT Colonography [facility] (combo)] Future Scheduled 1956 Screening for malignant [facility] 00:00:00 neoplasm of colon Medical Ce nter (procedure) [code = 949726267] Future Scheduled 1956 Screening for malignant [facility] 00:00:00 neoplasm of colon Medical Ce nter (procedure) [code = 762313872] Future Scheduled 1956 Screening for malignant [facility] 00:00:00 neoplasm of colon Medical Ce nter (procedure) [code = 864742470] Future Scheduled 1956 Screening for malignant [facility] 00:00:00 neoplasm of colon Medical Ce nter (procedure) [code = 542439308] Future Scheduled 1956 Sigmoidoscopy [code = [facility] Test 00:00:00 Sigmoidoscopy] Medical Cente r Encounters Start End Encounter Admission Attending Care Care Encounter Source Date/Time Date/Time Type Type Clinicians Facility Department ID 2020-10-06 Inpatient ER Hyacinth Gamez [facility] [id number] 13:30:00 -[id number] [facility] Reid Hendrickson 2022-11-08 2022-11-08 Abstract Pelon [facility] [id number] 00:00:00 00:00:00 [facility] 2022-11-06 2022-11-06 Abstract Yue Brower [facility] [id number] [id number] 00:[facility] 00:00:00 [facility] 2022-11-06 2022-11-06 Abstract Godfrey [facility] [id number] 00:[facility] 00:00:00 [facility] 2022-10-27 2022-10-27 [id number] 00:[facility]00 00:00:00 [facility] 2022-10-26 2022-10-26 Telephone Jose [facility] [id number] 00:00:00 00:00:00 [facility] 2022-10-16 2022-10-16 Telephone Jose [facility] [id number] 00:00:00 00:00:00 [facility] 2022-10-11 2022-10-11 Telephone Mariam [facility] [id number] 00:00:00 00:00:00 Jacinta [place] omero [facility] 2022-09-25 2022-09-25 Johny Swartz [facility] [id number] 00:00:00 00:00:00 Cristela Miranda [facility] 2022-09-18 2022-09-18 Orders Layla [facility] [id number] 00:00:00 00:00:00 Only [facility] 2022-08-30 2022-08-30 Office Layla [facility] [id number] 08:30:00 09:00:00 Visit [facility] 2022-08-29 2022-08-29 Boring Machine Operator Helper Donnie, [place] Lab Main [facility] 1.2.8 40.114 [id number] Univers 08:15:00 08:30:00 Visit Eric Hurt 350.1.13.10 it[place] of [place] [id number] [address] 2022-08-29 2022-08-29 Outpatient R BLU [facility] [id number] Univers 08:15:00 08:15:00 ERIC [facility] [place] [facility] 2022-08-29 2022-08-29 Orders Doctor LUIS [id number] [id number] Univers 00:00:00 00:00:00 Only Unassigned, JESS 350.1.13.10 ity of [place] [facility] 4.2.7.2.686 Darrick as [phone] [address] 2022-07-28 2022-07-28 Telephone Marylin [facility] [id number] [facility] 00:00:00 00:00:00 [facility] 2022-06-28 2022-06-28 [facility] [id number] Univers 08:31:00 11:10:00 JHON itbertin [facility] 2022-06-28 2022-06-28 [facility] [id number] Univers 08:31:00 11:10:00 Encounter Jhon BOOTHE 350.1.13.10 [place] [id number] [place] [address] Branch 2022-06-28 2022-06-28 Surgery [facility] 1.2.840.114 [id number] Univers 09:34:00 10:08:00 Jhon BOOTHE 350.1.13.10 [place] [id number] [facility] 020 Branch 2022-06-27 2022-06-27 Office Araceli Amato [facility] [id number] 13:00:00 13:30:00 Visit [facility] 2022-06-27 2022-06-27 Office Araceli Amato [facility] [id number] 13:00:00 13:30:00 Visit [facility] 2022-06-27 2022-06-27 Orders Sheridan, [facility] [id number] [facility] 00:00:00 00:00:00 Only [facility] 2022-06-27 2022-06-27 Orders Sheridan, [facility] [id number] [facility] [address] 00:00:00 00:00:00 Only [facility] 2022-06-26 2022-06-26 Refill Lam [facility] [id number] [facility] 00:00:00 00:00:00 [facility] 2022-06-26 2022-06-26 Orders Doctor APONTE 1.2.840.114 [id number] [facility] 00:00:00 00:00:00 Only Unassigned, JESS 350.1.13.10 ity of [facility] 4.2.7.2.686 Darrick as [phone] [place] [id number] Branch 2022-06-26 2022-06-26 Refill Lam [facility] [id number] 00:00:00 00:00:00 [facility] 2022-06-23 2022-06-23 Outpatient DEVON ELI [id number] [place] [address] 00:00:00 00:00:00 ANNETTE Jain 2022-06-07 2022-06-07 [facility] [id number] Univers 08:00:00 10:35:00 JHON itbertin [facility] 2022-06-07 2022-06-07 Hospital [facility] [id number] Univers 08:00:00 10:35:00 Encounter Jhon BOOTHE 350.1.13.10 [facility] [place] [id number] [facility] 071 [place] 2022-06-07 2022-06-07 Surgery [facility] 1.2.840.114 [id number] Univers 09:05:00 09:39:00 Jhon BOOTHE 350.1.13.10 ity [facility] [place] [id number] [facility] 020 Branch 2022-06-07 2022-06-07 Orders Doctor LUIS 1.2.840.114 [id number] Univers 00:00:00 00:00:00 Only Unassigned, JESS 350.1.13.10 ity of [place] HOSPITAL 4.2.7.2.686 Darrick as [phone] [address] 2022-05-29 2022-05-29 Boring Machine Operator Helper Donnie, [facility] Lab Main [facility] 1.2.8 40.114 [id number] Univers 11:15:00 11:30:00 Visit Jhon Aguirre 350.1.13.1 0 ity [facility] [place] PROF[place] [id number] [place]ical NAL 353 [facility] 2022-05-29 2022-05-29 Out[facility] [id number] Univers 11:15:00 11:15:00 JHON cade [facility] 2022-05-29 2022-05-29 Shonda Poon [facility] [id number] 00:00:00 00:00:00 [facility] 2022-05-29 2022-05-29 Shonda Poon [facility] [id number] 00:00:00 00:00:00 Only [facility] 2022-05-26 2022-05-26 [facility] Araceli Amato [facility] [id number] [id number] 09:30:00 09:30:00 Encounter [facility] 2022-05-26 2022-05-26 [facility] Araceli Amato [facility] [id number] [id number] 09:30:00 09:30:00 Encounter [facility] 2022-05-26 2022-05-26 [facility]phone [facility] [id number] 00:00:00 00:00:00 [facility] 2022-05-26 2022-05-26 Telephone Nestor [facility] [id number] 00:00:00 00:00:00 [facility] 2022-05-18 2022-05-18 Telephone Nestor [facility] [id number] 00:00:00 00:00:00 [facility] 2022-05-18 2022-05-18 Telephone Nestor [facility] [id number] 00:00:00 00:00:00 [facility] 2022-04-27 2022-04-27 Outpatient SONDRA BELLEL [facility] [id number] [facility] 13:27:18 13:55:18 VIVI purdy of Medicin e 2022-04-18 2022-04-18 Telephone Marylin [facility] [id number] 00:00:00 00:00:00 [facility] 2022-04-18 2022-04-18 Telephone Marylin [facility] [id number] 00:00:00 00:00:00 [facility] 2022-04-13 2022-04-13 Outpatient DEVON ROLON [facility] [id number] [facility] 09:39:29 10:43:42 CHON chowdhury of Medicin e 2022-04-12 2022-04-12 Documentat Nestor [facility] [id number] 00:00:00 00:00:00 [facility] 2022-04-12 2022-04-12 Paresh Baez [facility] [id number] 00:00:00 00:00:00 [facility] 2022-04-10 2022-04-10 [facility] [id number] 11:02:13 23:59:00 Encounter [facility] 2022-04-10 2022-04-10 [facility] [id number] 11:02:13 23:59:00 Encounter [facility] 2022-04-10 2022-04-10 Office Scarlet Fritz [facility] [id number] 09:30:00 10:00:00 Visit [facility] 2022-04-10 2022-04-10 Office Scarlet Armstrong [facility] [id number] 09:30:00 10:00:00 Visit [facility] 2022-04-06 2022-04-06 Shonda Martinez [facility] [id number] 00:00:00 00:00:00 Only [facility] 2022-04-06 2022-04-06 Orders Juan [facility] [id number] 00:00:00 00:00:00 Only [facility] 2022-04-04 2022-04-04 Paresh Swartz [facility] [id number] 00:00:00 00:00:00 [facility] 2022-04-04 2022-04-04 Paresh Swartz [facility] [id number] 00:00:00 00:00:00 [facility] 2022-03-31 2022-03-31 Orquidea Becerra [facility] [id number] 00:00:00 00:00:00 Jacinta Lucretia omero [facility] 2022-03-31 2022-03-31 [place] Mariam [facility] [id number] 00:00:00 00:00:00 [facility] Melvin jamil [facility] 2022-03-30 2022-03-30 [facility] [id number] [id number] 11:50:30 23:59:00 Encounter [facility] 2022-03-30 2022-03-30 [facility] [id number] 11:50:30 23:59:00 Encounter [facility] 2022-03-30 2022-03-30 [facility] [id number] [id number] 11:42:06 11:49:00 Encounter [facility] 2022-03-30 2022-03-30 [facility] [id number] [id number] 11:42:06 11:49:00 Encounter [facility] 2022-03-30 2022-03-30 [facility] Araceli [facility] [id number] 11:00:00 11:41:00 Encounter [facility] 2022-03-30 2022-03-30 [facility] [id number] [id number] 11:00:00 11:41:00 Encounter [facility] 2022-03-30 2022-03-30 [facility] [id number] [id number] 09:25:37 10:59:00 Encounter [facility] 2022-03-30 2022-03-30 [facility] [id number] [id number] 09:25:37 10:59:00 Encounter [facility] 2022-03-30 2022-03-30 [facility] [id number] [id number] 09:25:15 10:59:00 Encounter [facility] 2022-03-30 2022-03-30 [facility] [id number] [id number] 09:25:15 10:59:00 Encounter [facility] 2022-03-30 2022-03-30 [facility] [id number] [id number] 09:25:01 10:59:00 Encounter [facility] 2022-03-30 2022-03-30 [facility] Araceli [facility] [id number] [id number] 09:25:01 10:59:00 Encounter [facility] 2022-03-30 2022-03-30 [facility] Araceli [facility] [id number] 06:00:00 09:24:00 Encounter 3, [facility] 2022-03-30 2022-03-30 [facility] Araceli Andujar [facility] [id number] 06:00:00 09:24:00 Encounter 3, [facility] 2022-03-30 2022-03-30 Telephone Gilberto [facility] [id number] 00:00:00 00:00:00 [facility] 2022-03-30 2022-03-30 Telephone Gilberto [facility] [id number] 00:00:00 00:00:00 [facility] 2022-03-29 2022-03-29 Office DEVON Bell 1.2.840.114 [id number] [facility] 14:00:00 15:02:44 Visit Vivi AMBULATOR 350.1.13.21 College Y 0.2.7.2.686 of [id number] [facility] 815 e 2022-03-29 2022-03-29 Refill Mariam [facility] [id number] 00:00:00 00:00:00 [facility] 2022-03-29 2022-03-29 Johny Becerra, [facility] [id number] 00:00:00 00:00:00 [facility] [facility] 2022-03-23 2022-03-23 Telephone Nestor [facility] [id number] [facility] 00:00:00 [facility] 2022-03-23 2022-03-23 Telephone Nestor [facility] [id number] 00:[facility] 00:00:00 [facility] 2022-03-22 2022-03-22 Documentleonid Manzano [facility] [id number] 00:[facility] 00:00:00 [facility] 2022-03-22 2022-03-22 Paresh Manzano [facility] [id number] 00:[facility]00 00:00:00 [facility] 2022-03-10 2022-03-10 Paresh Baez [facility] [id number] [facility] 00:00:00 [facility] 2022-03-10 2022-03-10 Paresh Baez [facility] [id number] 00:[facility] 00:00:00 [facility] 2022-03-10 2022-03-10 Paresh Baez [facility] [id number] 00:[facility] 00:00:00 [facility] 2022-03-10 2022-03-10 Paresh Martinez [facility] [id number] 00:00[facility]00 00:00:00 [facility] 2022-03-10 2022-03-10 Documentleonid Baez [facility] [id number] 00:[facility] 00:00:00 [facility] 2022-03-10 2022-03-10 Paresh Baez [facility] [id number] 00:00[facility] 00:00:00 [facility] 2022-03-10 2022-03-10 Documentleonid Baez [facility] [id number] 00:00:00 00:00:00 [facility] 2022-03-10 2022-03-10 Documentat Juan [facility] [id number] 00:00:00 00:00:00 ion [facility] 2022-03-08 2022-03-08 Office Araceli Amato [facility] [id number] 11:30:00 12:00:00 Visit [facility] 2022-03-08 2022-03-08 Office Araceli Amato [facility] [id number] 11:30:00 12:00:00 Visit [facility] 2022-03-08 2022-03-08 Evaluation Araceli Amato [facility] [id number] 10:30:00 11:30:00 [facility] 2022-03-08 2022-03-08 Evaluation Araceli Amato [facility] [id number] 10:30:00 11:30:00 [facility] 2022-03-08 2022-03-08 Evaluation Araceli Amato [facility] [id number] 09:00:00 09:30:00 [facility] 2022-03-08 2022-03-08 Evaluation Araceli Amato [facility] [id number] [facility] 09:00:00 09:30:00 [facility] 2022-03-08 2022-03-08 Social EveretteAraceli nieves [facility] [id number] 08:30:00 09:00:00 Work Rios Arndt [facility] 2022-03-08 2022-03-08 Social Araceli Amato Andujar [facility] [id number] 08:30:00 09:00:00 Work Rios Arndt [facility] 2022-03-08 2022-03-08 Araceli Mckenzie [facility] [id number] 08:20:00 08:30:00 Only [facility] 2022-03-08 2022-03-08 Orders Sussy Chirinosan [facility] [id number] 08:20:00 08:30:00 Only [facility] 2022-03-08 2022-03-08 Telephone Nestor [facility] [id number] 00:00:00 00:00:00 [facility] 2022-03-08 2022-03-08 Telephone Nestor [facility] [id number] 00:00:00 00:00:00 [facility] 2022-03-08 2022-03-08 Paresh Caldwell [facility] [id number] 00:00:00 00:00:00 [facility] 2022-03-08 2022-03-08 Telephone Nestor [facility] [id number] 00:00:00 00:00:00 [facility] 2022-03-08 2022-03-08 Telephone Nestor [facility] [id number] [id number] 00:00:00 00:00:00 [facility] 2022-03-08 2022-03-08 Paresh Caldwell [facility] [id number] [id number] 00:00:00 00:00:00 [facility] 2022-03-06 2022-03-06 Telephone Yamil [facility] [id number] 00:00:00 00:00:00 [facility] 2022-03-06 2022-03-06 Telephone Nestor [facility] [id number] 00:00:00 00:00:00 [facility] 2022-03-06 2022-03-06 Telephone Yamil, [facility] [id number] 00:00:00 00:00:00 [facility] 2022-03-06 2022-03-06 Telephone Nestor, [facility] [id number] [id number] 00:00:00 00:00:00 [facility] 2022-02-28 2022-02-28 Telephone Nestor, [facility] [id number] [id number] 00:00:00 00:00:00 [facility] 2022-02-28 2022-02-28 Telephone Nestor, [facility] [id number] [id number] 00:00:00 00:00:00 [facility] 2022-02-22 2022-02-22 [id number] [id number] 00:00:00 00:00:00 [facility] 2022-02-22 2022-02-22 Telephone Nestor, [facility] [id number] 00:00:00 00:00:00 [facility] 2022-02-20 2022-02-20 [facility] [id number] 00:00:00 00:00:00 [facility] 2022-02-20 2022-02-20 Orders Zulma [facility] [id number] 00:00:00 00:00:[address] [facility] 2022-02-20 2022-02-20 Telephone Juan [facility] [id number] 00:00:00 00:00:00 [facility] 2022-02-20 2022-02-20 Orders Zulma [facility] [id number] [facility]:00:00 00:00:[address] [facility] 2022-02-18 2022-02-18 Orders Juan [facility] [id number] 00:00:00 00:00:00 Only [facility] 2022-02-18 2022-02-18 Shonda Martinez [facility] [id number] 00:00:00 00:00:00 Only [facility] 2022-02-09 2022-02-17 [facility] Keyana Resendiz [facility] [id number] [facility] 19:40:00 11:24:00 Encounter Tk [facility] 2022-02-09 2022-02-17 Inpatient ER [facility] Surgery [id number] SLE 19:40:00 11:24:00 SUYAPA 2022-02-09 2022-02-17 [facility], Keyana Josephth [facility] [id number] [facility] 19:40:00 11:24:00 Encounter Tk [facility] 2022-02-15 2022-02-15 Paresh Baez [facility] [id number] 00:00:00 00:00:00 [facility] 2022-02-15 2022-02-15 Paresh Baez [facility] [id number] 00:00:00 00:00:00 [facility] 2022-02-14 2022-02-14 Outpatient [facility] [id number] SLE 00:00:00 00:00:00 2022-02-13 2022-02-13 Surgery Sheridan [facility] [id number] 07:30:00 09:37:00 [facility] 2022-02-13 2022-02-13 Surgery Sheridan [facility] [id number] 07:30:00 09:37:00 [facility] 2022-02-13 2022-02-13 Anesthesia [facility] [id number] [facility] 07:26:00 09:06:00 Event ag[facility] 2022-02-13 2022-02-13 Anesthesia Olga-Te [facility] [id number] [facility] 07:26:00 09:06:00 Event Manoj wallace [facility] 2022-02-09 2022-02-09 [place]patient [place] [id number] [facility] 19:40:00 23:59:00 [facility] 2022-02-09 2022-02-09 Outpatient [facility] [id number] [facility] 00:00:00 19:39:00 [facility] 2022-02-09 2022-02-09 Office Lam [facility] [id number] [id number] 11:00:00 12:00:00 Visit [facility] 2022-02-09 2022-02-09 Office ZHOU Fritz [facility] [id number] [id number] 11:00:00 12:00:00 Visit [facility] 2022-02-09 2022-02-09 Outpatient CONCHITA ARMSTRONG [facility] [id number] SLE 11:42:22 11:42:22 RISE 2022-02-09 2022-02-09 Outpatient [facility] [id number] SLE 00:00:00 00:00:00 PRASUN 2022-02-09 2022-02-09 Orders [facility] [id number] [facility] 00:00:00 00:00:00 Only [facility] 2022-02-09 2022-02-09 Documentat Marko [facility] [id number] [id number] 00:00[facility]00 00:00[facility]00 [facility]22-[facility]-09 2022-02-09 Orquidea Poon [facility] [id number] 00:00:00 00:00:00 [facility] 2022-02-09 2022-02-[address] [facility] [id number] [facility] 00:[facility] 00:00:00 [facility] 2022-02-09 2022-02-09 [facility] [id number] 00:00:00 00:00:00 [facility] 2022-02-09 2022-02-09 Abstract Luis Gamez [facility] [id number] 00:00:00 00:00:00 [facility] 2022-02-09 2022-02-09 Orders [facility] [id number] 00:00:00 00:00:00 [facility] 2022-02-09 2022-02-09 [facility] [id number] [id number] 00:00:00 00:00:00 [facility] 2022-02-09 2022-02-09 Orquidea Poon [facility] [id number] 00:00:00 00:00:00 [facility] 2022-02-09 2022-02-[address] [facility] [id number] [facility] 00:[facility]:00 00:00:00 [facility] 2022-02-09 2022-02-09 Orquidea [facility] [id number] 00:00:00 00:00:00 [facility] 2022-02-09 2022-02-09 Abstract Luis Gamez [facility] [id number] 00:00:00 00:00:00 [facility] 2022-02-08 2022-02-08 Outpatient ZHOU EMI [facility] [id number] [facility] 00:00:00 00:00:00 TZU-GORDY 2022-02-08 2022-02-08 Outpatient ZHOU PHILLIPSMikaela, [facility]H [facility] [id number] [facility] 00:00:00 00:00:00 IMERUN 2021-10-11 2021-10-26 Inpatient EM DAFNE Kidd INTE [id number] [facility] 14:19:00 16:56:00 Mary 42 [facility] 2021-10-12 2021-10-12 Outpatient REYES Kidd [id number] [facility] 01:15:00 01:15:00 Mary 08 [facility] 2021-10-10 2021-10-10 Transition CARLOS Molina [id number] Univers 00:00:00 00:00:00 of Care Sadie SHI [id number] it y of JIGNALOUIE 4.2.7.2.686 [facility] [id number] [facility] 403 Branch 2021-10-05 2021-10-08 [facility] Babatunde Aragon [facility] [id number] Univers 09:32:00 11:36:00 Encounter Fredo Berrios [id number] ity of Rashad Malone 4.2.7.2.686 [facility] [id number] [facility] 080 Branch 2021-10-05 2021-10-08 Inpatient X KIRA [facility] [id number] Univers 09:32:00 11:36:00 RASHAD ity of [facility] 2021-04-11 2021-04-11 Emergency ER Provider, [facility] [id number] 10:28:00 10:28:00 Express -[id number] Melvin Bacon Reid Emeka 2020-10-05 2020-10-05 Emergency ER Provider, [facility] [id number] 11:17:00 11:17:00 Express -[id number] Melvin Robles 2020-06-11 2020-06-11 Emergency ER Provider, [facility] [id number] 12:11:00 12:11:00 Express -[id number] Melvin omero St Reid Hendrickson Results Test Description Test Time Test Comments Results Result Comments Source ALPHA FETOPROTEIN (AFP), TUMOR MARKER 2022-06-27 18:16:36 Test Item Value Reference Range Interpretation Comme nts ALPHA-FETOPROTEIN (BEAKER) (test code = 1094) 3.1 ng/mL <10.0 Bit Sharpener Operator ID - BSBASIC METABOLIC [id number] 17:38:25 Test Item Value Reference Range Interpretation [...] not appl icable for dialysis patien ts Bit Sharpener Operator ID - BSHEPATIC FUNCTION [id number] 17:38:25 Test Item Value Reference Range Interpretation [...] (test code = 20 U/L 6-55 347) Bit Sharpener Operator ID - BSPROTHROMBIN TIME/[id number] 17:10:59 Test Item Value Reference Range Interpretation Comments PROTIME (BEAKER) 15.2 seconds 11.9-14.2 H (test code = 759) INR (BEAKER) (test 1.22 See_Comment [Automat ed message] code = 370) The system [employer] generated this result transmitted ref erence range: <=5.90. The reference range was not used to int erpret this result as normal/abnormal . RECOMMENDED COUMADIN/WARFARIN INR THERAPY RANGESSTANDARD DOSE: 2.0 - 3.0 Includes: PROPHYLAXIS for venous thrombosis, systemic embolization; TREATMENT for venous thrombosis and/or pulmonary embolus.HIGH RISK: Target INR is 2.5-3.5 for patients with mechanical heart valves.CBC W/PLT COUNT & AUTO [id number] 17:06:57 Test Item Value Reference Range Interpretation [...] 417) IMMATURE GRANULOCYTES-RELATIVE 0.50 % 0.00-1.00 PERCENT (BEAKER) (test code = 2801) CT, [id number] 14:02:00 [facility] 1955 Sex: MFINAL [...] MDReport Verified Date/Time: 04/12/2022 14:02:36 Reading Location: [facility] C013Y CT Body Reading Room Electronically signedby: IVA ATKINS M.D. on 04/12/2022 02:02 [facility] 2022-04-10 15:05:39 Test Item Value [...] not appl icable for dialysis patien ts Bit Sharpener Operator ID - MITCHOperator ID - BSHEPATIC FUNCTION [id number] 14:50:35 Test Item Value Reference Range Interpretation [...] (test code = 17 U/L 6-55 347) Bit Sharpener Operator ID - MITCHPROTHROMBIN TIME/[id number] 14:23:04 Test Item Value Reference Range Interpretation Comments PROTIME (BEAKER) 15.7 seconds 11.9-14.2 H (test code = 759) INR (BEAKER) (test 1.33 See_Comment [Automat ed message] code = 370) The system [employer] generated this result transmitted ref erence range: <=5.90. The reference range was not used to int erpret this result as normal/abnormal . RECOMMENDED COUMADIN/WARFARIN INR THERAPY RANGESSTANDARD DOSE: 2.0 - 3.0 Includes: PROPHYLAXIS for venous thrombosis, systemic embolization; TREATMENT for venous thrombosis and/or pulmonary embolus.HIGH RISK: Target INR is 2.5-3.5 for patients with mechanical heart valves.CBC W/PLT COUNT & AUTO [id number] 14:15:48 Test Item Value Reference Range Interpretation [...] 2801) MR, ABDOMEN, WITHOUT / WITH IV [id number] 14:22:00ERIC HURT MDUnlisted Reason for Exam - Click Yes and Enter Reason Below->YesUnlisted Reason for Exam->Pre transplant liver eval [facility] 1955 Sex: [...] Martinezeport Verified Date/Time: 04/01/2022 14:22:50 Carotid doppler [id number] 08:35:57Ejection FractionSLEH ECHO HEARTLAB [facility]CH[facility]byterian[facility]otid doppler [id number] 08:35:57Ejection FractionSLEH ECHO HEARTLAB [facility] PresbyterianCarotid doppler [id number] 08:35:57Ejection FractionSLEH ECHO HEARTLAB MKCH[facility]byterianCarotid doppler bilateral 2022-03-31 08:35:57Ejection FractionSLEH ECHO HEARTLAB MKCHI [facility] PresbyterianRAD, MANDIBLE, MIN 4 [id number] 17:25:00ERIC HURT MDReason for Exam:->[facility] 1955 Sex: MFINAL REPORT MANDIBLE 5 [...] DOPPLER 2022-03-30 15:51:59Ejection FractionSLEH ECHO HEARTLAB MKCKESSON [facility] PresbyterianECHO W CONTRAST & [id number] 15:51:59Ejection FractionSLEH ECHO HEARTLAB [facility] PresbyterianECH W CONTRAST & [id number] 15:51:59Ejection FractionSLEH ECHO HEARTLAB MKCKESSON [facility]byterianECHO W CONTRAST & DOPPLER 2022-03-30 15:51:59Ejection FractionSLEH ECHO HEARTLAB MKCKESSON [facility] PresbyterianRAD, BONE DENSITY [id number] 12:37:00ERIC HURT MDReason for Exam:->[facility] 1955 Sex: MFINAL REPORT BONE MINERAL DENSITY CLINICAL HISTORY: Liver transplant evaluation COMPARISON: No prior comparison bone mineral density studies REPORT: Bone Mineral Density Measurement: Lumbar Spine (L1-L4): 0.888 g/xd2Zsxk Femoral Neck: 0.803 g/cm2 Standard Deviation as [...] Mcdermott Verified Date/Time: 03/30/2022 12:37:59 Reading Location: [facility] Radiology Reading Room RAD, CHEST, 2 [id number] 12:33:00 ERIC HURT MDReason for Exam:->Pre liver [facility] 1955 Sex: MFINAL [...] Mcdermott Verified Date/Time: 03/30/2022 12:33:13 Reading Location: [facility] Radiology Reading Room BLOOD GAS, [id number] 11:58:00 Test Item Value Reference Range Interpretation [...] (test code = 1819) 21.0 MISCELLANEOUS LAB [id number] 14:30:49 Test Item Value Reference Range Interpretation Comments SCAN RESULT (test code = See scanned report [id number]) See scanned reportDrug screen, urine, [id number] 11:57:47 Test Item Value Reference Range Interpretation Comments Scan Result (test code = See scanned report [id number]) ALLYN (test code = ALLYN) See scanned report [facility], [id number] 11:57:47 Test Item Value Reference Range Interpretation Comments Scan Result (test code = See scanned report [id number]) ALLYN (test code = ALLYN) See scanned report [facility] HospitalD[facility], urine, [id number] 11:57:47 Test Item Value Reference Range Interpretation Comments Scan Result (test code = See scanned report [id number]) ALLYN (test code = ALLYN) See scanned report [facility], urine, [id number] 11:57:47 Test Item Value Reference Range Interpretation Comments Scan Result (test code = See scanned report [id number]) ALLYN (test code = ALLYN) See scanned report [facility] HospitalDRUG SCREEN, URINE, [id number] 11:57:47 Test Item Value Reference Range Interpretation Comments SCAN RESULT (test code = See scanned report [id number]) See scanned reportHEPATITIS C PCR, [id number] 06:16:44 Test Item Value Reference Range Interpretation Comments HCV RESULT COMPONENT HCV RNA not detected HCV RNA not detected (BEAKER) (test code = 2699) This test uses a Real-Time Polymerase Chain Reaction (RT-PCR) methodology and was performed using [employer] Ampliprep/NALLELY TaqMan HCV test kit version 2.0 ([employer]).Reportable range for this assay is 15 - 100,000,000 IU per mL (1.18 - 8.00 Log IU/mL).[id number] 16:08:46 Test Item Value Reference Range Interpretation Comments T3 TOTAL (BEAKER) (test code = 1.00 ng/mL 0.60-1.81 656) Bit Sharpener Operator ID - LITOCRYPTOCOCCAL [id number] 14:02:47 Test Item Value Reference Range Interpretation Comments CRYPTOCOCCAL ANTIGEN, SERUM Negative Negative, Interference (BEAKER) (test code = 1828) Urinalysis w/[id number] 13:43:44 Test Item Value Reference Range Interpretation Comments Color, UA (test Yellow code = 5778-6) Clarity, UA (test Clear code = 5767-9) Specific [place], 1.013 1.001-1.035 UA (test code = 5811-5) pH, UA (test code 5.0 5.0-8.0 = 5803-2) Protein, UA (test Negative Negative code = 47080-7) Glucose, UA (test Negative Negative code = 365) Ketones, UA (test Negative Negative code = 2514-8) Bilirubin, UA Negative Negative (test code = 61946-1) Blood, UA (test Negative Negative code = 82123-1) Nitrite, UA (test Negative Negative code = 5802-4) Leukocytes, UA Negative Negative (test code = 5799-2) Urobilinogen, UA 0.2 mg/dL 0.2-1.0 (test code = 97959-0) RBC, UA (test 1 See_Comment [Automated me ssage] code = 23473-6) The system w [facility] generated this result transmit britta reference range : /HPF. The refer ence range was not u sed to interpret th is result as normal/abnormal . WBC, UA (test 1 See_Comment [Automated me ssage] code = 5821-4) The system [facility] generated this result transmit britta reference range : /HPF. The refer ence range was not u sed to interpret th is result as normal/abnormal . Bacteria, UA None Seen (test code = 17497-2) Mucus (test code Rare = 8247-9) Squam Epithel, UA <1 See_Comment [Automate d message] (test code = The system [facility] 82678-3) generated this result transmit britta reference range : /HPF. The refer ence range was not u sed to interpret th is result as normal/abnormal . Hyaline Casts, UA 7 See_Comment [Automate d message] (test code = The system [facility] [employer] 37508-3) generated this result transmit britta reference range : /LPF. The refer ence range was not u sed to interpret th is result as normal/abnormal . Crystals, Urine None Seen (test code = 39670-7) Specimen Source (test code = 2795) ALLYN (test code = Bit Sharpener Operator ID - ALLYN) [auto]Bit Sharpener Operator ID - tech [facility] HospitalUrinalysis w/[id number] 13:43:44 Test Item Value Reference Range Interpretation Comments Color, UA (test Yellow code = 5778-6) Clarity, UA (test Clear code = 5767-9) Specific [place], 1.013 1.001-1.035 UA (test code = 5811-5) pH, UA (test code 5.0 5.0-8.0 = 5803-2) Protein, UA (test Negative Negative code = 89715-5) Glucose, UA (test Negative Negative code = 365) Ketones, UA (test Negative Negative code = 2514-8) Bilirubin, UA Negative Negative (test code = 26178-5) Blood, UA (test Negative Negative code = 63301-8) Nitrite, UA (test Negative Negative code = 5802-4) Leukocytes, UA Negative Negative (test code = 5799-2) Urobilinogen, UA 0.2 mg/dL 0.2-1.0 (test code = 42468-7) RBC, UA (test 1 See_Comment [Automated me ssage] code = 56889-4) The system [facility] generated this result transmit britta reference range : /HPF. The refer ence range was not u sed to interpret th is result as normal/abnormal . WBC, UA (test 1 See_Comment [Automated me ssage] code = 5821-4) The system [facility] generated this result transmit britta reference range : /HPF. The refer ence range was not u sed to interpret th is result as normal/abnormal . Bacteria, UA None Seen (test code = 56073-7) Mucus (test code Rare = 8247-9) Squam Epithel, UA <1 See_Comment [Automate d message] (test code = The system [facility] 24375-1) generated this result transmit britta reference range : /HPF. The refer ence range was not u sed to interpret th is result as normal/abnormal . Hyaline Casts, UA 7 See_Comment [Automate d message] (test code = The system [facility] 87716-9) generated this result transmit britta reference range : /LPF. The refer ence range was not u sed to interpret th is result as normal/abnormal . Crystals, Urine None Seen (test code = 23151-7) Specimen Source (test code = 2795) ALLYN (test code = Bit Sharpener Operator ID - ALLYN) [auto]Bit Sharpener Operator ID - [facility][id number] 13:43:44 Test Item Value Reference Range Interpretation Comments Color, UA (test Yellow code = 5778-6) Clarity, UA (test Clear code = 5767-9) Specific [place], 1.013 1.001-1.035 UA (test code = 5811-5) pH, UA (test code 5.0 5.0-8.0 = 5803-2) Protein, UA (test Negative Negative code = 94300-3) Glucose, UA (test Negative Negative code = 365) Ketones, UA (test Negative Negative code = 2514-8) Bilirubin, UA Negative Negative (test code = 53854-0) Blood, UA (test Negative Negative code = 36493-9) Nitrite, UA (test Negative Negative code = 5802-4) Leukocytes, UA Negative Negative (test code = 5799-2) Urobilinogen, UA 0.2 mg/dL 0.2-1.0 (test code = 44336-3) RBC, UA (test 1 See_Comment [Automated me ssage] code = 98284-5) The system [facility] generated this result transmit britta reference range : /HPF. The refer ence range was not u sed to interpret th is result as normal/abnormal . WBC, UA (test 1 See_Comment [Automated ms ssage] code = 5821-4) The system [facility] generated this result transmit britta reference range : /HPF. The refer ence range was not u sed to interpret th is result as normal/abnormal . Bacteria, UA None Seen (test code = 14600-2) Mucus (test code Rare = 8247-9) Squam Epithel, UA <1 See_Comment [Automate d message] (test code = The system [facility] 11018-4) generated this result transmit britta reference range : /HPF. The refer ence range was not u sed to interpret th is result as normal/abnormal . Hyaline Casts, UA 7 See_Comment [Automate d message] (test code = The system [facility] 05133-1) generated this result transmit britta reference range : /LPF. The refer ence range was not u sed to interpret th is result as normal/abnormal . Crystals, Urine None Seen (test code = 35139-8) Specimen Source (test code = 2795) ALLYN (test code = Bit Sharpener Operator ID - ALLYN) [auto]Bit Sharpener Operator ID - tech [facility] HospitalUrinalysis w/Lapdcqlqpiz3668-35-87 13:43:44 Test Item Value Reference Range Interpretation Comments Color, UA (test Yellow code = 5778-6) Clarity, UA (test Clear code = 5767-9) Specific [place], 1.013 1.001-1.035 UA (test code = 5811-5) pH, UA (test code 5.0 5.0-8.0 = 5803-2) Protein, UA (test Negative Negative code = 43691-4) Glucose, UA (test Negative Negative code = 365) Ketones, UA (test Negative Negative code = 2514-8) Bilirubin, UA Negative Negative (test code = 76215-1) Blood, UA (test Negative Negative code = 95832-6) Nitrite, UA (test Negative Negative code = 5802-4) Leukocytes, UA Negative Negative (test code = 5799-2) Urobilinogen, UA 0.2 mg/dL 0.2-1.0 (test code = 68456-8) RBC, UA (test 1 See_Comment [Automated me ssage] code = 52600-8) The system [facility] generated this result transmit britta reference range : /HPF. The refer ence range was not u sed to interpret th is result as normal/abnormal . WBC, UA (test 1 See_Comment [Automated me ssage] code = 5821-4) The system [facility] generated this result transmit britta reference range : /HPF. The refer ence range was not u sed to interpret th is result as normal/abnormal . Bacteria, UA None Seen (test code = 06811-3) Mucus (test code Rare = 8247-9) Squam Epithel, UA See_Comment [Automate d message] (test code = The system [facility] 20184-2) generated this result transmit britta reference range : /HPF. The refer ence range was not u sed to interpret th is result as normal/abnormal . Hyaline Casts, UA 7 See_Comment [Automate d message] (test code = The system [facility] [address]88[address]-7) generated this result transmit britta reference range : /LPF. The refer ence range was not u sed to interpret th is result as normal/abnormal . Crystals, Urine None Seen (test code = 90236-4) Specimen Source (test code = 2795) ALLYN (test code = Bit Sharpener Operator ID - ALLYN) [auto]Bit Sharpener Operator ID - tech [facility] HospitalURINALYSIS W/ [id number] 13:43:44 Test Item Value Reference Range Interpretation [...] = 1521) SOURCE(BEAKER) (test code = 2795) Bit Sharpener Operator ID - [auto]Bit Sharpener Operator ID - [id number] 13:12:40 Test Item Value Reference Range Interpretation Comments RPR SCREEN (BEAKER) (test code = Nonreactive Nonreactive 420) EBV ANTIBODY, [id number] 12:53:45 Test Item Value Reference Range Interpretation Comments INDERJIT PEÑA VIRAL CAPSID Positive Negative, Equivocal A ANTIGEN IGG (BEAKER) (test code = 3415) Inderjit Peña Viral Capsid Antigen IgG Result Interpretation: </= 0.8 Al Negative 0.9-1.0 Al Equivocal >/= 1.1 Al PositiveHEMOGLOBIN [id number] 11:53:00 Test Item Value Reference Range Interpretation Comments HEMOGLOBIN A1C 4.4 % See_Comment [Automated m essage] ELECTROPHORESIS (BEAKER) The system which (test code = 3811) generated this result transmitted ref erence range: <=5.6%. The reference range was not used to int erpret this result as normal/abnormal . "The A1c is measured using a NGSP-certified method. HbA1c value equal to or greater than 6.5% as thediagnosis cutoff for diabetes. An HbA1c value of 5.7- 6.4% indicates increased risk for diabetes (prediabetes)."Bit Sharpener Operator ID - ADMOperator ID - ADMVITAMIN D, 04-[id number] 11:50:11 Test Item Value Reference Range Interpretation Comments VITAMIN D 25-OH (BEAKER) (test 15.5 ng/mL 6.6-49.9 code = 2764) Effective 05/02/2017: Reference Range ChangeNew: 6.6-49.9 ng/mL Previous: 13.0- 47.8 ng/mLRecommendedVitamin D Target Range: 30.0-40.0 ng/mLOperator ID - NELLIE [id number] 11:42:19 Test Item Value Reference Range Interpretation Comments PROSTATE SPECIFIC ANTIGEN (BEAKER) 0.0 ng/mL 0.0-4.0 (test code = 844) Bit Sharpener Operator ID - NELLIEHIV-1 ANTIGEN WITH HIV-1/2 [id number] 11:41:26 Test Item Value Reference Range Interpretation Comments HIV-1 ANTIGEN WITH HIV 1\\T\\2 Nonreactive Nonreactive ANTIBODY (2) (BEAKER) (test code = 2586) Bit Sharpener Operator ID - NELLIEHEPATITIS B CORE ANTIBODY, [id number] 11:40:50 Test Item Value Reference Range Interpretation Comments HEPATITIS B CORE IGM ANTIBODY Nonreactive Nonreactive (BEAKER) (test code = 645) Bit Sharpener Operator ID - NELLIEHEPATITIS B CORE ANTIBODY, [id number] 11:40:50 Test Item Value Reference Range Interpretation Comments HEPATITIS B CORE TOTAL ANTIBODY Nonreactive Nonreactive (BEAKER) (test code = 497) Bit Sharpener Operator ID - MITCHCARCINOEMBRYONIC ANTIGEN (CEA)2022-03-08 11:40:49 Test Item Value Reference Range Interpretation Comments CARCINOEMBRYONIC ANTIGEN (BEAKER) 7.6 ng/mL 0.0-5.0 H (test code = 685) Bit Sharpener Operator ID - MITCHALPHA FETOPROTEIN (AFP), TUMOR [id number] 11:40:49 Test Item Value Reference Range Interpretation Comments ALPHA-FETOPROTEIN (BEAKER) (test 3.6 ng/mL <10.0 code = 1094) Bit Sharpener Operator ID - MITCHCYTOMEGALOVIRUS ANTIBODY, [id number] 10:49:27 Test Item Value Reference Range Interpretation Comments CYTOMEGALOVIRUS, IGG (BEAKER) Negative Negative, Equivocal (test code = 3429) CMV IgG Result Interpretation: </= 0.8 Al Negative 0.9-1.0 Al Equivocal >/=1.1 Al PositiveEBV ANTIBODY, [id number] 10:49:27 Test Item Value Reference Range Interpretation [...] Positive - Presumed immune VARICELLA ZOSTER ANTIBODY, [id number] 10:49:27 Test Item Value Reference Range Interpretation Comments VARICELLA ZOSTER IGG (AL) (AKER) 3.2 (test code = 3197) VARICELLA ZOSTER RESULT INTERPRETATIONS: <=0.8 Al Nonreactive: Presumed non- immune to VZV 0.9-1.0Al Equivocal >=1.1 Al Reactive: Presumed immune to VZV [id number] 10:16:02 Test Item Value Reference Range Interpretation Comments THYROID STIMULATING HORMONE 4.679 uIU/mL 0.350-4.940 (AKER) (test code = 772) Bit Sharpener Operator ID - BLESSING [id number] 10:15:57 Test Item Value Reference Range Interpretation Comments T4 TOTAL (AKER) (test code = 895) 7.6 ug/dL 4.9-11.7 Bit Sharpener Operator ID - BLESSING [id number] 10:07:58 Test Item Value Reference Range Interpretation Comments FERRITIN (AKER) (test code = 126.78 ng/mL 5.00-275.00 361) Bit Sharpener Operator ID - BLESSING MGAMMA GLUTAMYL TRANSFERASE (GGT)2022-03-08 09:59:35 Test Item Value Reference Range Interpretation Comments GAMMA GLUTAMYL TRANSFERASE (BEAKER) 25 U/L 9-64 (test code = 364) Bit Sharpener Operator ID - BLESSING MCOMPREHENSIVE METABOLIC [id number] 09:59:34 Test Item Value Reference Range Interpretation Comments TOTAL PROTEIN 7.4 gm/dL 6.0-8.3 (AKER) (test code = 770) ALBUMIN (AKER) 3.3 g/dL 3.5-5.0 L (test code = [...] (test code = 347) EGFR (BEAKER) 81 Interpretati on of eGFR (test code = 1092) mL/min/1.73 [...] not appl icable for dialysis patien ts Bit Sharpener Operator ID - BLESSING [id number] 09:59:34 Test Item Value Reference Range Interpretation Comments MAGNESIUM (BEAKER) (test code = 2.1 mg/dL 1.6-2.6 627) Bit Sharpener Operator ID - BLESSING [id number] 09:59:34 Test Item Value Reference Range Interpretation Comments PHOSPHORUS (BEAKER) (test code = 4.3 mg/dL 2.3-4.7 604) Bit Sharpener Operator ID - BLESSING MURIC [id number] 09:59:34 Test Item Value Reference Range Interpretation Comments URIC ACID (BEAKER) (test code = 5.9 mg/dL 2.6-7.2 773) Bit Sharpener Operator ID - BLESSING MLIPID [id number] 09:59:34 Test Item Value Reference Range Interpretation [...] Borderline 130-159 High 160-189 Very High >=190 Bit Sharpener Operator ID - BLESSING MBILIRUBIN, [id number] 09:59:34 Test Item Value Reference Range Interpretation Comments BILIRUBIN DIRECT (BEAKER) (test 0.5 mg/dL 0.1-0.5 code = 706) Bit Sharpener Operator ID - BLESSING [id number] 09:56:49 Test Item Value Reference Range Interpretation Comments TRANSFERRIN (BEAKER) (test code = 235 mg/dL 174-382 541) Bit Sharpener Operator ID - BLESSNIG [id number] 09:54:11 Test Item Value Reference Range Interpretation Comments ETHANOL (BEAKER) < mg/dL See_Comment [Automated message] The (test code = 400) system i generated this result tra nsmitted reference range : <=10. The reference r tatum was not used to int erpret this result as normal/abnormal . Bit Sharpener Operator ID - BLESSING GENA TIBC, % SAT. (WITHOUT FERRITIN)2022-03-08 09:54:11 Test Item Value Reference Range Interpretation Comments IRON (BEAKER) (test code = 547) 74.0 ug/dL 40.0-160.0 TOTAL IRON BINDING CAPACITY 296 ug/dL 250-450 (BEAKER) (test code = 769) IRON % SATURATION (2) (BEAKER) 25 % 20-55 (test code = 3516) Bit Sharpener Operator ID - BLESSING [id number] 09:44:26 Test Item Value Reference Range Interpretation Comments FIBRINOGEN LEVEL (BEAKER) (test 258 mg/dl 225-434 code = 658) [id number] 09:44:05 Test Item Value Reference Range Interpretation Comments PARTIAL THROMBOPLASTIN TIME 31.6 seconds 22.5-36.0 (BEAKER) (test code = 760) PROTHROMBIN TIME/[id number] 09:43:28 Test Item Value Reference Range Interpretation Comments PROTIME (BEAKER) 16.3 seconds 11.9-14.2 H (test code = 759) INR (BEAKER) (test 1.40 See_Comment [Automat ed message] code = 370) The system [employer] generated this result transmitted ref erence range: <=5.90. The reference range was not used to int erpret this result as normal/abnormal . RECOMMENDED COUMADIN/WARFARIN INR THERAPY RANGESSTANDARD DOSE: 2.0 - 3.0 Includes: PROPHYLAXIS for venous thrombosis, systemic embolization; TREATMENT for venous thrombosis and/or pulmonary embolus.HIGH RISK: Target INR is 2.5-3.5 for patients with mechanical heart valves.CALCIUM, [id number] 09:39:26 Test Item Value Reference Range Interpretation Comments CALCIUM IONIZED (BEAKER) (test 1.12 mmol/L 1.12-1.27 code = 698) PH, BLOOD (BEAKER) (test code = 7.42 1810) CBC W/PLT COUNT & AUTO [id number] 09:37:44 Test Item Value Reference Range Interpretation [...] (test code = 2801) Varicella zoster PCR, [id number] 12:21:21 Test Item Value Reference Interpretation Comments Range Source-Eric ABDOMEN dy Site (test code = 0168384) VZV NOT DETECTED REFERENCE RANGE : NOT DETECTED DNA,Qual. This test was d eveloped and its PCR (test analytical code = [employer] have 7534857) been determined by [facility].It has not been cleared or appr damian by FDA. This assay hasb een validated pursuant to the CLIA regulations and isused for clinical purpos es. ALLYN (test Performing Lab code = *QDID [facility] ALLYN) [facility] [address] [address] Thiago Ji MD, PhD [facility] HospitalVaricella zoster PCR, [id number] 12:21:21 Test Item Value Reference Interpretation Comments Range Source-Eric ABDOMEN dy Site (test code = 9063078) VZV NOT DETECTED REFERENCE RANGE : NOT DETECTED DNA,Qual. This test was d eveloped and its PCR (test analytical code = performancechar acteristics have 0174090) been determined by [facility].It has not been cleared or appr damian by FDA. This assay hasb een validated pursuant to the CLIA regulations and isused for clinical purpos es. ALLYN (test Performing Lab code = *QDID [facility] ALLYN) [facility] [address] [address] I Garrison MCKENZIE, PhD [facility] HospitalVaricella zoster PCR, [id number] 12:21:21 Test Item Value Reference Interpretation Comments Range Source-Eric ABDOMEN dy Site (test code = 4464346) VZV NOT DETECTED REFERENCE RANGE : NOT DETECTED DNA,Qual. This test was d eveloped and its PCR (test analytical code = performancechar acteristics have 5881812) been determined by [facility].It has not been cleared or appr damian by FDA. This assay hasb een validated pursuant to the CLIA regulations and isused for clinical purpos es. ALLYN (test Performing Lab code = *QD[facility] ALLYN) [facility] [address] [address] Thiago Ji MD, PhD [facility] HospitalVaricella zoster PCR, [id number] 12:21:21 Test Item Value Reference Interpretation Comments Range Source-Eric ABDOMEN dy Site (test code = 4388598) VZV NOT DETECTED REFERENCE RANGE : NOT DETECTED DNA,Qual. This test was d eveloped and its PCR (test analytical code = performancechar acteristics have 5214501) been determined by [facility].It has not been cleared or appr damian by FDA. This assay hasb een validated pursuant to the CLIA regulations and isused for clinical purpos es. ALLYN (test Performing Lab code = *QDID [facility] ALLYN) Diagnostics [facility] [address] [place] [address] Thiago Ji MD, PhD [facility]2022-02-17 20:18:48 Test Item Value Reference Range Interpretation Comments SARS-COV2/RT-PCR (test Negative Negative code = 69183-7) ALLYN (test code = ALLYN) Negative result [...] the Act. Testing was performed using the Odersun SARS-CoV-2 assay. Fact Sheet for Healthcare Providers:https://www.tarah schumacherMYFX/tex/RT SARS-CoV-2 HCP Fact Sheet 51-625741.pdf Fact Sheet for Healthcare Patients:https://www.rudolph albrechtmagdaleno/tex/RT SARS-CoV-2 Patient Fact Sheet EN 51-829104H1.pdf Lab Interpretation Normal (test code = 44841-4) [facility]2022-02-17 20:18:48 Test Item Value Reference Range Interpretation Comments SARS-COV2/RT-PCR (test Negative Negative code = 83537-5) ALLYN (test code = ALLYN) Negative result [...] the Act. Testing was performed using the Odersun SARS-CoV-2 assay. Fact Sheet for Healthcare Providers:https://www.tarah schumachernisha/tex/RT SARS-CoV-2 HCP Fact Sheet 51-506637.pdf Fact Sheet for Healthcare Patients:https://tarah collier/tex/RT SARS-CoV-2 Patient Fact Sheet EN 51-026076W6.pdf Lab Interpretation Normal (test code = 75095-9) [facility]2022-02-17 20:18:48 Test Item Value Reference Range Interpretation Comments SARS-COV2/RT-PCR (test Negative Negative code = 98677-1) ALLYN (test code = ALLYN) Negative result [...] Magdaleno SARS-CoV-2 assay. Fact Sheet for Healthcare Providers:https://pro dudley/tex/RT SARS-CoV-2 HCP Fact Sheet 51-602875.pdf Fact Sheet for Healthcare Patients:https://www.rudolph collier/tex/RT SARS-CoV-2 Patient Fact Sheet EN 51-744223W0.pdf Lab Interpretation Normal (test code = 58957-2) [facility]omatic [facility]2022-02-17 20:18:48 Test Item Value Reference Range Interpretation Comments SARS-COV2/RT-PCR (test Negative Negative code = 25526-9) ALLYN (test code = ALLYN) Negative result [...] the Act. Testing was performed using the Odersun SARS-CoV-2 assay. Fact Sheet for Healthcare Providers:https://www.tarah dudley/tex/RT SARS-CoV-2 HCP Fact Sheet 51-341165.pdf Fact Sheet for Healthcare Patients:https://www.RunMyProcess/tex/RT SARS-CoV-2 Patient Fact Sheet EN 51-661410K2.pdf Lab Interpretation Normal (test code = 84614-0) [facility])2022-02-17 20:18:48 Test Item Value Reference Range Interpretation Comments SARS-COV2/RT-PCR (test code = Negative Negative 1555086) Negative result for this test determines that [...] 564(g) of the Act.Testing was performed using Adim8 SARS-CoV-2 assay.Fact Sheet for Healthcare Providers:https://www.StarBlock.com/tex/RT SARS-CoV-2 HCP Fact Sheet 51- 265236.pdfFact Sheet for Healthcare Patients:https://www.StarBlock.com/tex/RT SARS-CoV-2 Patient Fact Sheet EN 51-619558O5.pdfPHOSPHATIDYLETHANOL, BLOOD 2022-02-16 14:08:41 Test Item Value Reference Range Interpretation Comments PHOSPHATIDYLETHANOL (PETH) See scanned (test code = 1495803) report See scanned reportBody fluid culture + gram [id number] 17:10:16 Test Item Value Reference Range Interpretation Comments Result (test code = 6463-4) [facility] [id number] 17:10:16 Test Item Value Reference Range Interpretation Comments Result (test code = 6463-4) No growth [facility] gram [id number] 17:10:16 Test Item Value Reference Range Interpretation Comments Result (test code = 6463-4) No growth [facility] gram [id number] 17:10:16 Test Item Value Reference Range Interpretation Comments Result (test code = 6463-4) No growth [facility] + GRAM [id number] 17:10:16 Test Item Value Reference Range Interpretation Comments CULTURE (BEAKER) (test code = 1095) No growth [id number] 09:41:17 Test Item Value Reference Range Interpretation Comments Case Report (test code Medical Cytology Report = 104) Case: [id number] Authorizing Provider: Milena Swartz MD Collected: 02/13/2022 08:24 AM Ordering Location: [facility] Received: 02/13/2022 09:40 AM SERVICES Pathologist: Jam Villarreal MD Specimen: Peritoneal Fluid ADDENDUM (test code = l5dlyBGuSSMgpDV0YdFbOWA 3381) jf9umx3NjdMIrcTVzEXhlxP XadpKgmf41uIF8iN14IZ9pD NRkItO0VELqiyJ4Ntw0FLNp ZMFhxHAxH570z3kxx3tlusT zcUP7yHklMUFjztptYhT0BZ weDZRwxwpzFOf1WFctMQSbd HK7ERZziWQjG1TnQQCqUL8v bxz5NAP7EWmvIBGvPfJ4QRF xpRCtGRYppFaaHFlqc094FI W6QrCxFLJopkTjkYeigB7pT nMyMCBUaGlzIGFkZGVuZHVt FRhhWOHnZMHzuO4uiVT0jSF xxQjeLTKnsFxdx3adJnCyLX J9wYS8HXNcpwFaZY6FEr3wM OZph6BhDI3hdMVuzCirdXpb aHQgZXBpdGhlbGlhbCBjZWx zia8mrNWzpC== DIAGNOSIS (test code = i5talOZvDOBme8bgSKLlvJT 3220) uZzEwMzNcZnRuYmpcdWMxIH tccnRmMVxlcGljOTYwMlxhb eFaBHVtcNHrC3BigjgsGIhn EF1eQD0cdMpryYPvfQUdEAN pMzKbo8bey302lVChp2wlEI CTibcvgCa5gHmcV32im1W4N gldM02nuNBpCXQ1KCTrDJMj wUUnLZCzKMP9PFXfoWUnM1s rDICeZM3ttmceQTycQNydZW PseVL7YMFvbJHrU4XoKMMxE JbbFZYbnvy0BaExTt4dnOPp eTcyMFxwYXJkXHBsYWluXGZ zMjAgUEVSSVRPTkVBTCBGTF ZUNTKoW2aLC5ELBB4FWLXKX DMCFDrBTZJRF0CIPXrlsRam AZUwWOXjNH1SB4AFWRSXXTX YBiVRGXbPN45HNuJRIDTrvq CoKUPoXYRvYDK0aMEpCW3qz 290aGVsaWFsIGNlbGxzLCBj lEXqanwgBFhpLpdaxZ3zyQt wtvNocySae91nYWCzP6C0SG QsogKqTM6uVHWaw58dqVWkj 0YcuBmxEYN5f3bdePOaACEd dGUxODAwMFxhbnNpXGRlZmx qbayfESHcVXF2mlBlFBXvWP cyCIOmPJvlKk4ucCEomPmzW fWcJAIlx2imzgJCvupbuNn9 v9wfXDQhXdO7sBKhLWghQ9b nkyYzwYXiJOWxKUo9oK96ET QlbR4wdCWtGAnjcuYwHrC3V KahAPZcYfD5BNPaxOPqZNPv D1uvRPLnJMrnINMdFUlpgWI qBWU4lXowj5O6lCKbrDFkyY hpCdRxWcYmMkIVp4GqRUj4u FkeJ5ObZGDsVfO8oLLhZARd VThcVHWyPXDpmlI4pO85OVs bbdY7lKJku1Ucx24dh333dR 8zqHYnOXK0WCVhUBVksCThY WTaSWY9TVWkrDNhP0exEIPa ZY0pknloMPxnSWsoYNAmlJK 8WMVqgTPiB9HhDGGnKLzvEL Lrlve9ItTjVj2lhYPpsImqJ Gcju4hmt0rjsBWgCzl1UZVd GwLaElzmBAcum0Xxg6loTBP sha5fISZ6gXVijFbsg7I7uL QaRMHoqHBxPOCpXF5wcNEbU LVqhG6ynolrCGOlSdEuruzd YWUjvEkkzfOhYf1tsSxyAPG 8DOosA1xhpU3lMhZ6SEygF6 cpkX4sZVw4NDhnNGOwbTA0i aF3QJGouJNgX1MudE4nPVMs CZ0gpls5f7abBCV2XFtqZYI aIyN6aqH5GNByfHFtIIJolH uwNUivc680FFO4BhMfYKSan 7PoN9MshFktV39alFkuA08o SBIqtXmhgY7mxCkvdR7nXjX iGzNuMNuakQfgCN3wBJGfH6 wloMIzSTFyPVHfU4jxKqByx H7pdKicOXtcshLjHXYoQqx2 FEYhxVWtOGBcOba5KTQvDUK rC46vjqnhXYB8pV0qk5vsn6 ZuKAabYFY2UQEdj98ySAlmj kN9PUetCu02MZwcOSP5XQsm YXJ9fQ== CPT Code(s) (test code s1jrrJIiHGJqvEC6WnKuRML = 3357) zf9yje3BdjMTimWWgGJyfzQ BcapJjhf07sYX9aC71QL2fZ TGyRuL3CXMlplK5Lta1RVSm OGMeoBLmJ479c5ufh8qtkzG piJX2fLlvMSTlwkwlKlQ4AR haGBXdijwwLHd2VAkkWWEcm ZJ2AMAoeCWxA1FrASNpIH7r xqy3YIZ0TTspCXMoGtP5FLC rjRVuPMIdhJuyCJeed823NA I4AhJrXUCbqxJovGxqyU9aQ jChZYV3CSZjZRkuLZcaAUKd cGFyfQ== CLINICAL DATA (test r2jkbNMeWRBpeOC1MhGjEYS code = 3355) xe2npd7LoyFNwzWAyFXvyiU PbruNvkk20wSR1tR98AG2hH KOyBaR3CIHctlA6Amp4SAYs GMTtuHDgK500p6snz0mnkxN jqNB4iJpbRQCclotnQcS8DW vlATEzuocbUGm9FLksZNZai NY0NZYwpYXrZ9SyPXNbOY5i ctg5GAS4HCnfFAKhRfK3LLT nmGWdDPIrfYejLWwqf340HX Y8EaVzYULlttUilPldmN9sE nJmSHUIb4VvpAAsCMLJS7Wx RQF1N9auXGTji20yFK7yOGF gHLEdjLSeiF7zaOCrRXZyL3 m4FLHqCFxNNNhdpM2muEtzK 4UoLRxwlu9yCIEwH4xjOSUn CNVfkQ3iMCAgmn9= SPECIMEN SOURCE (test r4zqvUMjWFRvlKI2UsGkHXA code = 3377) ls3bax7TzaRTntROtFPgguJ WlvgGxwy74aRM7pM57FQ2fH BBjZwE2VLFcypZ2Rny9TYDp JJOqiYFcT447g9oxd1cxmrR jfXB0kZhjHVSjeltnGfM2PP gcVGOhpuivHCz0OHnlKLByo ND4GBPtfVEmF2TaSHCqOR5r dmg4WST9TZvkXKDgTwR8GFR wpSEaADPtaUymIZuqo028SJ M5XnVfXZHnhaDjgErhfC2zX uRkWHGQAHPATK9VWIXNDGJF VUlEXHBhcn0= GROSS DESCRIPTION s3jguUXbXHFztSCDNHYuX5y (test code = rqpKmIAIygEMpN4QwwxztJK [id number]) pcSK4yNR2omAvdyFJrxOBgK N3ZWFWmXxNpURAdzCGdczZe PhOjJKLwoBIqvEH3QEMeBS4 awffoTSpoBRbsIPCcogP1PG BgyAFnX1TcFQGaMO5wjdxbZ WO6MNfnrR4riiGMLqygAk3l dHRibHtcZjFcZmNoYXJzZXQ ePJFatRaoDBVmNHa9dD0FFw ssYDI5LEZPPpciEZUnKM4Iv 3cpEWSphYUuSKE5FRfbtEVq FGHcVMTkSOe4XSOsPXmqqIJ wOB1omKeoHwcotBxla7BnxS BcXGlkIDUxMDAyIFxcZGIgI Y0UMjMqWFO6HtEuBPRsJJg4 OJq0PI6OVnDzBOCaPPDlSiD rWYYnALl8TQtwSE8TEXI6FZ R6USn7HbB7SDGrThObZNUrR iBcXGYgQXJpYWwgXFxmbCBc LU4aeSnskMKnykOHXzIDRFW uqK9yIAEyJMEkdDmmPxjlCE BiNOawPUYhS05kn9BVp4CgD C2SUJv0ydHtvirnuW9dVPOz pdJfDGwsuLKhC2onKvGnSAQ GFRQtoNWkGCP3WSWntDVcFP 7gPORpQkr7nNQ6EMDsMRQgz gSgBRReM6z8x0AopP2cFIOy ICHfOPbzZWTrp9DaQONcCQT vPLNjHXXrUFodCCPej8KaGE imniLowKgvSPSigbHtx6LqH ZamhwNcoSTnPnKnADScEA7r APC1ObS1XrUrDfRqZVyihEs fqX9mJPDeZ26fn1JJi8RiQZ NiEQdbd0lkjPeby8NzbXUtB TobHGIgpHTrEQfdkC4mVtJs y0icpHo8VZluefB4KWLcgm0 IJthhqU3wBuYbs2cooDt2HP RIBxsmqoZ9b7ozqYyso1Ikc ASpOI7IMp0= MICROSCOPIC i7nmrXTpVFHowXV5IvXeYGJ DESCRIPTION (test code ec9vcu3OkmTOovLDtJCgwvR = 3371) EhxfMfke49hLY3hG70ZF8eE ADrZiF6XSXtmfC3Odv4DXJm GQUfxETbQ059m0hxz9gmdxN ftSB4hCwdKMOtchfdKuI3TG yzLZSmlveaVQd6DOmePPQea KK4HESqzLWvS9DyUUOxAR4q qnm5EPS5ZCuqXVVoGbG0BER uaRMxLADjzUbwGUeud414CX O6DyNpBEJrpgQviNdhrZ9gZ bYsGFDJZXHak8FdJUEtYLla YXJ9 STATEMENT OF ADEQUACY Satisfactory (test code = 2757) Gross assessment was [facility] performed at ([facility], code = 2777) Department of Pathology, [address] [place] [id number], Technical component [facility] was performed at ([facility], code = 2778) Department of Pathology, [address] [place] [id number], Professional component [facility] was performed at ([facility], code = 2779) Department of Pathology, [address] [place] [id number], [facility]17 Test Item Value Reference Range Interpretation Comments Case Report (test code Medical Cytology Report = 104) Case: [id number] Authorizing Provider: Milena Swartz MD Collected: 02/13/2022 08:24 AM Ordering Location: [facility] PERIOPERATIVE Received: 02/13/2022 09:40 AM SERVICES Pathologist: Jam Villarreal MD Specimen: Peritoneal Fluid ADDENDUM (test code = [id number] 3381) ja8dbd3OrgCNgtJLaTLknbA KyarFrub99oXG2uU67ZF3yQ ESaRrM6INDiasQ7Jjr7BHRi PJVssPMhL030v4jka7eyitI ubBC7rRejQQVnwdndPjF8RG bzSIKeibfuPLl6NBvzUYWhe WS3PKDjbPKgM0VxDLEgJV8v zju3ANI8UIhoFSBrWxZ5TDR boOGkUGUmoFqkHCkxi932OP K1GiGwGBEqidJdlAssmD7fX nMyMCBUaGlzIGFkZGVuZHVt HLufTUQlFVGpgV8ipDC9tQF rtYveMZRgcFalt0ueYpUuXK T0tUJ3CGTyeuTyUS3BIy9zF DXrc4JrBL0fmQBpaNvcyXla aHQgZXBpdGhlbGlhbCBjZWx cqk3wzZPmuY== DIAGNOSIS (test code = s0nqqFDfYEKzl1btLWHzzTO 3220) uZzEwMzNcZnRuYmpcdWMxIH tccnRmMVxlcGljOTYwMlxhb mEtXKZbaHPaE8OsepzkYBmo GY4aQG2jdWwcpYEabXMwYBU aIwNdr3ivv004zANpm4qzUO MTggkjdWh5zXfyC71fz3B5Z phaW28fkMDsGQU5ANMlQIYr zMQjFIDtBZW4TTAviEOjY8g yDJNbKO6niswsNCsiSNtdWI CzvZH3OQVlhTNaN8UsROWxZ TskBCPprxk3YhWrBp7mvUXx eTcyMFxwYXJkXHBsYWluXGZ zMjAgUEVSSVRPTkVBTCBGTF EPJGRaG1gXX5MCEM2NPYGHQ SBNSMiQPYMFR0LEQVtlzQtx QMFcZQNsNI5QS3CSBTAEQPE XGcPOSTpCX15BTkKQDUAtji EuDYSuZAFmHHY9kJKkVC5wq 290aGVsaWFsIGNlbGxzLCBj nFWjztsgUYruXbqgmY3txGk poaWuoiVkp19xJNXeC1A7NJ TwjtXkPO9mVOYfd07wyQEor 4TzyEolTHO7c7tstCOeAGXi dGUxODAwMFxhbnNpXGRlZmx mfqvuIWLpORO4ltVwMYOzPT zsUJMvFMyzOg2qrDClcYacH yXfPNAuz6olsqFWmsldyFi8 z6eoJATyPbI7eORzVBxnJ3j gbbQflNAfFSQnCRb0lB40FQ VvoL4faQFgFZdjehAlJxP9J TuhMDZkVmP4XFEcjCTePEQc W8ntYMKkVLmkCHDsVMxnrZL aREF4xBwhr8N9lKVuyUDzbS vnXkZpUxShWdKEe2CyGWd2k PcgR8LjSJKoDuC2kHGqYYEg VRhhYRToPAVcpcU9jM37WQa zuiS6cUZey6Opu00ia646pU 7uvFJqYAR5PVTvPVGfvDMsV FPyWSV6HVUtdICwY7sgUVWb IF9rfxmlVLeeTClnPWSsyQP 4KACynBZnP0DnWBWjRMjhIT Eufyn5QmEkEf5ifUWhqVlyC Mmap3nzb3scrYEaHoc0VEAh DhLhLyokGMztm4Wuv9tsAKU ewm6dHEH8hNDjgBtbl9W0hW TaBUCayGFiMKRvKT4eqXAqK OWtsC6yguwoRNWcHpVmumnl KCDbcTphowLuKa8aaTptQWT 8NIutQ2aajC3xIsW2RZgcF1 bcaW4lJBg5YQkpRFHzjLX6p oG3GQTlhEUeT3YkzS8pPZXb SJ6nqtt2x8zrIYY8ERsnWIC vLvS0wqL0ODOkrAZzDTAyuO pfVJgyn170RDA1VsSuJAKjz 1KwZ9XwnRfnB84fsPauJ30d SGTkyJsvpV6rcRgefP1sBeX qCnHvEJcaiSxuPE7kEXHmH9 xfhXRdTPGdMANrT5euDiAoi S6xoXbeNCjdacCoSZVzRkq8 NEIusSGcBFIzVuf1LHHqLGJ lY41uojbfOEY4lB5fm1xxw9 CfEXikRIV4UHJvo48fNXvsa iE5LGtmWs35HWabRCD3JYzb YXJ9fQ== CPT Code(s) (test code z5nuyVTwAUVmhLH9TdZmZNH = 3357) ml5zmr7EucSWelWZiVTbunD UgrxPgdj15vWN4wI88VA1sG FEhJdD7OUSbbrN6Uyx0ZZJp TSLmqBRyZ056a5mah6rxcxK kxDU8eBguVDIcqarkBaQ9RS fmRDZucnmpYPq0BYmwVEZfu HF1CJKkcPXkQ0RtHHPnQU8z ryw6TIE7TAdaGOSlPpC9TIW rgFFlABJmxFprPQxyt805OQ D7XeFhNEWmzhOzbWbkvX8iO jCiJMU8QSKxYQwjZIgaBLYw cGFyfQ== CLINICAL DATA (test o6xhtXOwJBDoqLB4HzVdUZS code = 3355) nw4kjl4JpkWKrfGOnSFcyiX DqroZnjv54rPR2gU30IR0sY JPcNzV0ODIeesN6Vec3XOJr LXYjjDEtG970n1dbd3mkuyV xjER6sPuiGPZfarwoReO9KL ejOAUbzlmaMSz0JQzmJYTaq YU0YEMlcIXsL2ItTFGiJH4s isb1NXK5CUjfTJOpVxO9IVV sqQOlAUBgyJfaEGsdd379DQ G5JnRgAOEbqsXmeFrhkH5wL jVpWTDAj0TsmKPlCBGBM1Bn AEW8A8iwGWVmm31uBG1uEWR cHVGhvQQccP8mmGWjLQQyW7 v8VCQjLWlVFOmreE9vfDjxB 6FcUQhbsd4eTSRsN3acBSFd RYOafD9xUYToom9= SPECIMEN SOURCE (test u1baxJSdCASmzGA8MaQvFVI code = 3377) tz3wai5HblNQcrYVwCGphjM LjovXmyd97hCL3xI67IB6vB RRnKoY7FXJaziI3Adh8ETDm EFXbdUSbV738n3vfi5kkbjX yaOC0vTutNFUyoaipAhD2FK cjWVDsgyskXPg7ZHknEGYxk FH1VNXwgHRfD2KkLCIcFV6y khl1KVM5ZStcPFUuZkY4WNM rxMMhXJJwpIfoGTmzs315BG L6ZnJsUPXhoeTvdNnuwD9mZ uOxGLDVVKNRZT0HRZRYGQII VUlEXHBhcn0= GROSS DESCRIPTION n7fatZDeKRFpiOCUOKKaF5i (test code = mgxKnEIPbaRJcH7ErolbhBP [id number]) efAR8yBE9zlYqxeLTdeHXwT P7ZDYRfPqCcGSXfaQXhlvCi NzReWKXjaGFlfRU7SXMlKT3 yfpetLHadURyeIPVnlwM3HT CozWLpJ4ZwVESeEK6xigknE ZG6GTzpcY2wmvOTPcfgWi3p dHRibHtcZjFcZmNoYXJzZXQ yFAYshUdtXFTaOFi9pD0HQr twDDF6BHQNZeyzKLBtMR0Se 8mtXUVpaZExDDM0NUlgvVWr WXQeMYHcYPj5UIZaWJxybPG jUF4rdEmtQetsmCtvb8LqvL BcXGlkIDUxMDAyIFxcZGIgI U6RRcWdORD9ZyUuZMJeCCt7 YVt8SF4YTxFzMSHbQKQiWrG kYCYwPDx3LWhkWQ2KQES5OI U3OMs3KvO7CCLmVbDmETUqP iBcXGYgQXJpYWwgXFxmbCBc OK9bcAmvuZLntzNOVkOGOES fvY3qLEAyCDPikBkhOiahZB NrAUbmOQPhB76sf8FZz5UoC E9JDQt9meJxvzcyaH8yASGs kpRyWGiqdUItY1vmFoRfZUQ GCGFfqOVzXDA8ZXMjeCXdOC 1iPIQaDyt7jVP3OSOwUYJwk eWvLJEfS2v7j0LwkX3uDLCl WZQsEAfjDCKuw1FrEUIdWFC kTLWePDFsEAjqBQHfu8AlUP vakdDkwBzjFGOuruDuc5NgX QseceJuuKCtRfTzSEYlIO1f COR6EfG5FwPtLhTaHVcuhAw aiP3aGQWyU77uh4WOg7TjKX MaQVezq9zpbWrvl4YmoIBkH FdzEHBhqRBrWStzpV4dJvKv d9qlyVx9AEzgigR9AAXtwt7 ASnjzsQ4kJwShq4xcbXi3HD CQLohxfoJ7w9azcMasu5Awh XBzQM8UBf6= MICROSCOPIC a5wfxPOtNLHgzWC5UsUaJCD DESCRIPTION (test code ue7cly9DscFThjJPcIOhszF = 3371) GshmYwpi30iEH3wS70MK0fL WJnIfZ2QQErdmW8Bak9GNCd NENyzITaN812t7gef7ivxkA hzIC9yZbbJGOafpbpTpP1NK zhZUVqpsbvPIj3MSudKTVoo VQ6QPXfgGGqF5YnMBBgKY2w ofa9UZS1RUxaQSZeFlO7JAM vvCGcTTZfaWzyICdxo169MS A9BtQjWQJomcOqpPuipF1iR tTyTIOCURXla6EzDUKtCOrf YXJ9 STATEMENT OF ADEQUACY Satisfactory (test code = 2757) Gross assessment was [facility] performed at ([facility], code = 2777) Department of Pathology, [address] [place] [address], Technical component [facility] was performed at ([facility], code = 2778) Department of Pathology, [address] [place] [address], Professional component [facility] was performed at ([facility], code = 2779) Department of Pathology, [address] [place] [address], [facility] Test Item Value Reference Range Interpretation Comments Case Report (test code Medical Cytology Report = 104) Case: [id number] Authorizing Provider: Milena Swartz MD Collected: 02/13/2022 08:24 AM Ordering Location: [facility] PERI[facility] Received: 02/13/2022 09:40 AM SERVICES Pathologist: Jam Villarreal MD Specimen: Peritoneal Fluid ADDENDUM (test code = x0ucnGQkMXYiwQT8JrBpDLP 3381) hu8qrk8ZajWJkoGFoPIbshG OiihFksl21rYF9vJ48NQ9oJ BYzGaW5NVKtjlE4Sgg4ALZy LVMwiAAfG931g0gxi7tybpY hpZF6zCtfRSCxqhmlRaN8FN isGQWkdwxdXCx6LTfiNYQqe GZ2MPAukSNgI6DrKLWqQH4h zra6KRN2YUztQNKtJuA1LLQ ddJIfROIqgIjpMIxyf893UY A5WoSaBXWocrGsjKgavR6zR nMyMCBUaGlzIGFkZGVuZHVt DLzvAORbJMBwlM6elHO1cIM dlYrmHNJffNiil2mdHxYlAA A9jYS6RVZisyAjZT6KGj7oK TEhn9DlEO2wrSJjyWdenOsf aHQgZXBpdGhlbGlhbCBjZWx ouz9foPSlxK== DIAGNOSIS (test code = o8gfnOGoWMKnb5czHEIyvDE 3220) uZzEwMzNcZnRuYmpcdWMxIH tccnRmMVxlcGljOTYwMlxhb kKyOICmpFYyK9VgqqqlBZrp OT3lQE3odVhwwCUbcVRgZBJ sOwMzm9lgu927nMImu1yqXE WMcvsxrIc3jXrkI38bt6W1I qgoH38moANgSGG3HFRbGONp uIWvKBFnKLE3LZMfgEUcT8i sGDTqDG9tfqrrOYynRDjjFN KrqXM7YZMjiQVyZ0IbZAGaX NvhHAMumxb7ZyXoKj4keBMo eTcyMFxwYXJkXHBsYWluXGZ zMjAgUEVSSVRPTkVBTCBGTF ZKUAFvL3lVM2KFAV3RAQUXY UQZGCmLGHNPH7SIJVpyqDes JHMvQDAjIV6IX7ULEZYBKCT DOoVARZoIB90NWiSTOMDqtf FjMBTaYUSjIZN7oJJtWJ3as 290aGVsaWFsIGNlbGxzLCBj uCBvfwsiARlqWnuudC4urPq njmBhglLho62qOHOpU0C0VA XsmgBiAH9vWWKky03jrRXwc 4AwyLrrBRI7s6vxqBUlYBUt dGUxODAwMFxhbnNpXGRlZmx rqzurQGStQUD9eqGuXIZzXB dsYHHiRMdiSi4wtDCqvVgqN kSfEEOst5cllrNKrkqtsAk9 x1vbLCKeLrJ2fRWgSKnlG8b exmYytVHaZMWsBRp7iJ00SJ IdpH9hgSKdODtqxaLbQeY1P MfjWBRzLwL6OYCdiUWzBFSj S6rwPGKbXTswIIBfGMcipSO bMAH7pDqpe0F1fLOlgJEecN hqXnYpOpEyUwOYx8NnVOp6y DoaO2SnTOAyOqT9dMYcUUUp INngVAIlSTLdbnG5oN17UPw siiC1rMKfa7Cij22yo837hS 2kgLRgAUQ3OPXiAYQkrJSyP SSwPLE6QZKutPAwG7myOSHy HM0lxvcsRDweKGiqJNRfbQW 6LFXwrTQiA7HpIOUuMRhdZM Yyegp3FwEyGo8liLUzfHwuK Skmt0pwh2yxdFQrInx7ESGp UxExYzubRYjcx5Ezy4mpYFK nxw0cVED5lSKzmMqpm5Q0xU EwDYRdpEHvTEUiTG6dvWStP MPufZ9vzlylEUPxItPxwyjh PRLicQpiygCcQs7zpVmzQTU 1FBbpJ7sqzE0vSkH2QZxtA9 xfjK2pPHl2RTgiRAUyjOW3k fO1OGDyaMZlJ0GvlV4qFMOh NE1yjut7y8afCMG0WGuhGRU yTuL4zdW6MMIsnYWxUIImqV shZJmgw782YDN2KoRmPWOtq 6IfB6CngOdcP96qgCyuF71t VARksMwbjZ2kdTgqrS9lNwT xQlOuQKhbsQojTJ2dVUXdG0 szsLQjZMTyXYXlQ5imQrYvf I5vmUgfDMumhbUmEFOsWqv7 OPPtpLXwIXJyLnn3CIWsJXQ gW56vitmtVOG6lN0sf4yju4 QvHCsmZLO5LAJhz20pPLhka gU7PDyvJz85PVpfNNZ2RKvp YXJ9fQ== CPT Code(s) (test code z6nyhAXoPNZfoCB6MnUwKPQ = 3357) mj6nkn7PhlWZncFWmMDfanV CnmmDukx29lHF1nW22GJ4rF WWePkQ8BBPbvyJ2Lho2BZId KRHjpHZxX412c9jfr0tjfsK scVR9eHagLRNzreatJsL5IY nfTXYgeoxxWDv6NUipYJZzd YX0KRGkfSBgA9VpOTMtTY3c qbw6MGT6UIihURFjQzP1PCW xmKYhOITwhEjqPFgby876XE L2RnZjFTYdzaPipFtpwL7xQ gCmCYR0VSBnFCqoOEuzJZOc cGFyfQ== CLINICAL DATA (test p1uthMSaCFVyjIW5DqXsOUG code = 3355) za3zvv7KxxDYrjNItIHpeyZ NpgvXweo23eLN8tO17WI1fJ UDcJmB9CDFeasX9Bvh5VLIv CIChsBOcF951n9epj2xgcwI dyCW0iZiyHHVejtouSqR3KT vnJKSjjihwUMy1XHezTEKdu EQ2GKFiyBJqG5YiKKEgXO4l oaq7ZLG9DTiiOAXmDtK9HEZ yzAGxBNGyjUmfBRjvn122ZN W7LlQxYTCkavAqyFgvgQ3aV zNbTZVSb7IxdIXcQWULZ5Vx NYW4Z0pgTJMlb61aHV4pNOG gESWgoRXecJ6tfYCdTVKwO4 k7MWXwRKyWUAnnyE9pqZskI 3EuXSatpu6rMLLrD4anDGLk YDBtqY8lUQAysq8= SPECIMEN SOURCE (test x0ntvFKsHNAhiZT8XcAkAOR code = 3377) dv4uvc1AslCIrcWVlANyxqX NcoqFhkg80cXD4sM28IW1iA RQxRhG9KYWzysO6Ddi9VREm KZYivCQuU154r8xeh1ehsvM wmLK2wUbrPUVvexbdDpG9TM dzDSWfdvewQPi2DNofQBVfy YV7TNRnhZXoF4UaPQHiXU2x ixg2YRY9AJyvEROiFdW7DMH noQCzUWEstMwkBWyar926DQ E0RnUaUTVhxkUwcOlvgN5tB lOmVWXNSUWYDV5DLMSIXLOF VUlEXHBhcn0= GROSS DESCRIPTION o6qsfMUiLKLeeYTTOUPvG2j (test code = qrmKdYNOvqEVbO4JzlstgSW [id number]) fpLL1oFP6vlRtjpUFwtVZkE D0SDHEoNsSqTGVhmXFrvzJa QwDfPUNydRIyzOD3ZVVuCP0 enfkrOUydMFecNWTvcvD2RO CxhEIdF2IoPISaJZ2cpatkJ CQ5EVkadH6yqpTWGgjkEe4v dHRibHtcZjFcZmNoYXJzZXQ nVPUohSixEHNcQKm3sS8QNc aeGUR2GGMYIpkvESYzFM6Dj 8rxZGPbzYYdMFX2KGwopTGz CECnZRUqOJv6GTJxCCnchVE vKQ3amMwiFlmanQuln2IsgL BcXGlkIDUxMDAyIFxcZGIgI V0ADqZgQIX0BkJpKLZqVPx2 MXa5LH6QWtFhDIAvNXFaAbO kSKFbEMl1JDcyTJ5LJGH4ZM G6ZMq5StS2FZEnQvWrZAZnP iBcXGYgQXJpYWwgXFxmbCBc VW0ptQnxgSExkqUXHhFQWTV hxJ1uLQJsLYGkpHvbNlfaZF WqDJloPVKcO96pl6ULh2AeF R8JPQg0unMbssimtW2pFESi hhIeYDdmvRUwY4uuXpKcHBA IRFVaqIXaNTR6NUBfzRZpYP 7fAFGcXno5wJR0ENZeSUKyg yFsSZHtQ5w8l5PsxY5oTETz MPGnURalOVXho0ZkANTaOZB mZPZtPOJpHMmbAWZzd1WyLT inwaGdhJypTDCwbtZus8DyE WodsmQbiKTpTrMgDGGaGT7a EGU1PrW2YmKdUoOaFQlpbJh zpJ2rICCiV61im4PZf9QtOK VjEGrhl4xqoYtvm1SncVEwH BpnMESbsTDhRCxtuO2gIxKs n8lemUd5RKjgysA2YFOnhm8 LNwiywC4tHpItf3fqfPp3DI STYwgjfpW8h2mluVgic7Fww DEwCH5VRy8= MICROSCOPIC q1ohiCTsGXZlmAS7GtYdKAG DESCRIPTION (test code sv5fap8SjbGWdaUWxOIhabD = 3371) KkxpStda01lEK0qF64QM7nI WCgFcL8PJKxzyU9Ibb5LELy PZAnqYHcS804s5xfe5dqpwO eaYY9lUfiTONmvjcaFmR0MM buBDPvnbepLAb6DRrkEJQjy TD1DPAclRWrQ4VsVAVwIQ0p tag6XHH3ZBomEJKcIgZ5CQN yaVLxCWUraWuyAYpbf056BE X8MtCsKHKcpxEbgRgcqD2kD oMcBBUAPBPct6ErPQCcDGwk YXJ9 STATEMENT OF ADEQUACY Satisfactory (test code = 2757) Gross assessment was [facility] performed at ([facility], code = 2777) Department of Pathology, [address] [place] [address], Technical component [facility] was performed at ([facility], code = 2778) Department of Pathology, [address] [place] [address], Professional component [facility] was performed at ([facility], code = 2779) Department of Pathology, [address] [place] [address], [facility] Test Item Value Reference Range Interpretation Comments Case Report (test code Medical Cytology Report = 104) Case: [id number] Authorizing Provider: Milena Swartz MD Collected: 02/13/2022 08:24 AM Ordering Location: [facility] PERI[facility] Received: 02/13/2022 09:40 AM SERVICES Pathologist: Jam Villarreal MD Specimen: Peritoneal Fluid ADDENDUM (test code = u6crfCJfVAIvfYP1LvXyNJT 3381) cu2zmx3WwcXQjzMPjDDtzoO YuviMsey88lSA6oV89JV7qA EFbUtU7JOOxhzU0Ask8GBXr FNBkcWHuG595x2nsa5koyqR jhSF7aFlnAEBawzotGlU8DY ejPUCzgvzeOGm9OIkqAHSdv JO3OUUtyTHcL0FnPKBsYJ2k tfb8AIC0JRqeAGRcTqC7RUR ssDJaKKEvbBxuPVfeh662VE C1HwPeNJCcohSwgWmefT0zF nMyMCBUaGlzIGFkZGVuZHVt WAfoPWJmKYGsbB5lrSU4zOA itNicTVPchHadr7bmFnUrDH J4wZR5GKOieeWhEK3TTb9dG TSyz3LpWJ0duCKorJabsOgz aHQgZXBpdGhlbGlhbCBjZWx ars5kpFTvrP== DIAGNOSIS (test code = d2uloWIvBVVpw6dtRPDspLT 3220) uZzEwMzNcZnRuYmpcdWMxIH tccnRmMVxlcGljOTYwMlxhb mLtYXQwiJDuM2JwjtotCMav TW4vVV1akPajnQZgmGCoNAA gMhVoh2iet150bRGmz5fqMV TOdfuawYn1tAqxX97ts9Z7K ekfE55oxHIcFPO9WLYkVDSo bIRvXWCmPFD4DZHstYZbN3h fNJFaOX1cvmgjIBwxNBlkVZ EekWY9QKBafSRhZ4RzKMJuJ VnmGPEkjel2GxIeCo0egCYz eTcyMFxwYXJkXHBsYWluXGZ zMjAgUEVSSVRPTkVBTCBGTF ZTDKMjQ2cEF7TFQN5IOBRZV MXMEYlYRMCJP4BDXGngeFkj SVXmVTJnPF5FJ6AHKSPETTW JJvTKHPjQO53WYrBMVARrym DkFTXbJEVgIHT5vVFdIB7iy 290aGVsaWFsIGNlbGxzLCBj aGNyctgrFBomOcswpB9azSc rscKraxNdl47gZLKfF5A6HH NxhwTwFY0pQWXqg96kbZBjt 4HylRcbEIF5c0glwENmSGNa dGUxODAwMFxhbnNpXGRlZmx jhiiuUFCmYSQ7woMiDXPrKO uzAMNxHZqaAk0mhVNomAdjH fPjWOWhn6hrhwRSthuhxMa8 r6asUVQcQtD5vPKmGTuqM9l zamIzvUVfDIDlLQi2zP41LU GopG0wwZQrBWnxiiDeByN8G AxbJWPuSrH5HWZouUPlXXSa D6qiOVBhHDddPHTuOHsyfMK hFHR5gNied8X9zNFquAXlnS uyJdEhGeKwAuYCm9FkKMo5z XybZ4XiLSCfQvE7wVQyNRNt KQfoSIGpRFHyykA6xQ44GOy fcuR5nCZeg8Goi38vz155uG 8iwMNlQBE1ZLQoVIDrhQQnW NQwBNQ5MHFflMFjU2doFFYw OI2qsdadNWizJCnvNHKkaEQ 8BSOzpOOdT7QxWRBdJVwiDF Vlpqw4SnNhLh3iiNRsmKqzN Zvna1ndv7jmtAOgBqs6LABp JxUhXgqePQgxm6Sox9vdVZY kuw5mZJH9rVCfoLjmb1Z3pH YtOWNyqSWvRMHzJU3teXObH EDlhB1azhgmISKnZeEwsmqn HZRxjDlvpuSwEc0zdNgvVTP 7ENodD0cbkQ9gTqR1SUocT4 vbbU0tDLw3RTizHPHhdGG9g aK0YNExkUPtH3IreS7pCDPp AO1evme2r7zhLQJ2EMzxVRU cOyD9auD0YIVbeLUyPKGihZ raYYdsx308IZE2JjJrUMOdj 7BpD5VurSbvB54xjTeaT37u HKNksQaotI4aoCslgK9aOyU jYrFpAIvmxNizPS1tKSShG4 doyIWuHWDlXUEkL6odAwEsg P2ylCsjGMeuylAmATChEbq2 UPFabMOiUDPyBdu4ZZUgNSC kA44vadfmGYM0eY8vt4xjt9 YcGGnsTSG7GRUua32yZMvil mH8FFbdRv82EWmpHQA3LTqd YXJ9fQ== CPT Code(s) (test code r3kdgKHtKOAupRL9UeWhKNQ = 3357) xp9tte8IvnUJlfAKvKHpbbY TuzlHrjg63dYC8sB90HP5aX WHpUqM9HMSvhqR5Veh0MMLg DWVctZXvC660c8ygc3xoviZ iuUU0dOiiNJPazxccRlF1EJ ycTEUcknvgLKv3LAwbHTWka ZW3EFKmvVRjM4DbYTCkGU2p vvx7VQH5ASybHBZtTwC1LML axQRcBUIrbIaaWKgee308OQ W1ZwByTMGpchVmlKryoF4xS lKkXDL5PSCoCPyrGVtoZCVa cGFyfQ== CLINICAL DATA (test h1dbvPNhLKYhxOO3TaWoKAO code = 3355) fr6uss2FvzHLpfCGvZYxxqI AnyjVvxr50nGK7zF93FD5kQ OOmYeN7WGBtrtB0Uuk2WLFm RUHhbFUlE011m9waq9mcloS fhCY7gOzjNDBwjonjSrD4RF ivEKBwjxwaNSl9MQnxBTNtb VK7REYrnCNbY7IzKWTxVX6z efb4SGM0HGgkRVJlZuN4YNJ ruFRxPSOluGvbFRmxf419QA R0MuAhEZUrqqSrpOkjjU5vY jXdUSHXl7DadJSyQQGWU3Yt AYY1I9nyGEDqc86zXT5qVLI iQSCeoANadX3ooTHhJGSlG2 o9ZZNcBHjBNOgtaI8avDnsQ 0PzNPpumo7oGFCqF1ynSNEa QPOjoG7hSGOtud3= SPECIMEN SOURCE (test h0rvmPSfFCZnoUV9EwUgCBV code = 3377) sk6hea4AtcSZtgOOtDVqjeF EtvhThod20kRZ2xZ45CS7zB VNrSoX3CPLangR1Toc3PFMm TBNytWHwS642b6xzs0lzxnA mdIZ3eQbdBRIajkcrHrF3XR wvFQInhjmpSZz5QYgzNUIhq HZ5NFJyrOTcC1UtDCTdXU1z qah4NYN4ESxlVZSsZxE8ADP heIAbCVCkeBlnKTdib142XP J5PqYvOBUoenKgsQzaaC6vD fOnAFDFUYULDT8KZHAAXETB VUlEXHBhcn0= GROSS DESCRIPTION m2akhSLmHQRlaVDFXZGbY4f (test code = ipdJjQRQdyMLoH7ZfkhhqZZ [id number]) ixWI8iYH5ovWhgaWYcyYSvN S6JJIOsAtSsQMAcmLIvpuKm AkNoVVZxzIDujHT9OCRxGO1 bahidMWlsHTnoJYZxfdT7LE TqvEGzZ3AlNPSgED6gwsurE PF3QCagmR4ftmESWcoyZr5g dHRibHtcZjFcZmNoYXJzZXQ zUOUgvJtvNQMeENc8sM8VOl dfXTH0CAPJDzkzXSIpSE1Ym 4byTHIboPBtVHC9TIpmfZGm GZLkJXPxKMk1ARGxLPtysWG wYM5trWhoCgndaUdcw4SsyT BcXGlkIDUxMDAyIFxcZGIgI S5LZcFnFPX4FeClWONvHLg7 VAg5SG5RMtXwWYOyKMTcOhK oEKXcVFe9NQkyZF5VIVD0QI E0ASv4TsN8ORIaJcXwCAPjY iBcXGYgQXJpYWwgXFxmbCBc OK0stUilzCIzvoBAZlYAKLS waX2xLTGpNBLljYrdXrtqOM VqFFdfZLQfO42lz0SYk6EfI U2NAGy5tvSoeuaekV1rOJQs xzMcIVhbtNTnL2uxXhJiWYR WNHLxiSIoGEN4MLNsbLUqIB 5aODCjBza0lYD5BYKuYMBiz xPgEWXjC1x6a5DkmC6mKELl MJGcFAzoHBKrr6TlRRVkJAW nDAZvVBNfCNdnOARyg3GbQB qavlPwrZcnIWNabrPaz2KjM NdfokMkwSHhJrAoHQVuJW4a BTQ6VhO3XaTzDpIdDAzxhJa ruW8cOMYaA11zu8BJg3UiMD DuZNqkn8dqdWclt3IzmIFvB XfiWQLemKHaSYtviR0nHoWr u2rhxWs9GMdajdY3WIQsgz0 AIbabsZ7gFdBuc1uqtSw5WS MFKzmonnN9r7rthYfcp9Yst LPbEN3GBa1= MICROSCOPIC i4spvBMkSEBdwPZ9FdDjKFE DESCRIPTION (test code gz5ark6AboEEwvQAvIVmajQ = 3371) MaxkVshv85zGO4xV46PD7mK UJlGaF7JVImzrO1Tba5HDDl DRMdhUGpS119r8oji6xhluU blNX5aOqeUNTglypuAvR9HA huRXQgmovjEXc3CQrjUEXgn CX9ZRYdlQNpL8WpNULqGG4g ikd3ZQD8OXmaZORkJnR5VLF xmBMqDCOgcYstDPboo917PD E7SpSzHFOdsgIwnYfgcO6pH tWfKKDJEVGme2WjPKJlQKis YXJ9 STATEMENT OF ADEQUACY Satisfactory (test code = 2757) Gross assessment was [facility] performed at ([facility], code = 2777) Department of Pathology, [address] [place] [address], Technical component [facility] was performed at ([facility], code = 2778) Department of Pathology, [address] [place] [address], Professional component [facility] was performed at ([facility], code = 2779) Department of Pathology, [address] [place] [address], [facility] 09:41:17Medical Cytology Report Case: [id number] Authorizing Provider: Milena Swartz MD Collected: 02/13/2022 08:24 AM Ordering Location: [facility] Received: 02/13/2022 09:40 AM SERVICES [...] inflammation present Signing Pathologist Direct Phone Line: [phone] signed by Jam Villarreal MD on 02/14/2022 at 12:17 [id number], [id number], HCV, EtOH decompensated cirrhosis (ascites, HE), umbilical hernia p/w abd pain.PERITONEAL FLUIDA. Peritoneal Fluid.Received 80 mls zay fluid; prepared 4 cytospins and cell block(A2) - the cell block was fixed in formalin at 1:02 pm on 02/13/2022 Performed. [facility], Department of Pathology, [address] [place] [address], [facility], [facility] of [facility], [address] [place] [address], [facility], [facility] of [facility], [address] [place] [address], JRXGK [id number] 20:00:56 Test Item Value Reference Range Interpretation Comments CULTURE (BEAKER) (test No growth in 5 days code = 1095) The specimen volume collected for this blood culture was below the optimum (10 mL per bottle or 20 mL total). Use of lower volumes may adversely affect recovery and/or detection times of some organisms.BLOOD [id number] 20:00:55 Test Item Value Reference Range Interpretation Comments CULTURE (BEAKER) (test No growth in 5 days code = 1095) Tissue [id number] 19:09:30 Test Item Value Reference Range Interpretation Comments Case Report (test code Surgical Pathology = 104) Report Case: [id number] Authorizing Provider: Milena Swartz MD Collected: 02/13/2022 08:26 AM Ordering Location: [facility] Received: 02/13/2022 09:18 AM SERVICES Pathologist: Annita Brower MD Specimen: Hernia, Hernia Sac DIAGNOSIS (test code = [id number] 3220) uZzEwMzNcZnRuYmpcdWMxIH tccnRmMVxlcGljOTYwMlxhb eVfUCAsnWInE7NnpmwdOMcv HP6oKU2xqZxpvXReaWMuGTC yTaTkg9gjj058rJTmq9pfBP MUcjtlzPy6kYtiY72cp9Y4P kubH58oxBErPRH7YDWuNYDr rDOsIHUmKUA6GFJchTIaC9j lERKeMI1dmxuxNXzsWIhrLY GgjLQ4IULxxEYyF7ObTLDxS VozHNInzot1HkBiVa3acCNh eTcyMFxwYXJkXHBsYWluXGZ vGyNwA3lHIiTSZsYgV43HXJ JWDCDEZDAuPLPQJO7NMV6nD MpGHn0YY5XBOHHYSDyuyLGr XGxpNzIwXGxpbjcyMCAtIEZ ICrTEFhIVX0IHSFQcTNwXW7 BTXHDAG3OIYKixWXmTKQOiO mrfLuZUVSbRGI2NF68VJOJR GOUWNPULSVfQMHSYW65BEHV XCY1YDRGlnjIqDLaSAAjaXN FSLbvXCEHIT3dcNMUbTESHL 8vDXIkNJFqsU9TLCULWGDLY FFpwSIISB8kTOiLBYyNcW0N VDhgeTSTepGDaBLuaPAV7z2 xydGYxXHNzdGUxODAwMFxhb nNpXGRlZmxhbmcxMDMzXGZ0 bmJqXHVjMVxkZWZmMHtcZm9 zrSVdtCeaFeLrCKMwi8mwkx WWdchvsNj5b3caWDBlScN6j GAzQXczQ2mqgsWjnFFpPJBa HVm2fZ34JFQrqX5loFFsGHf mcvVgKmG9VTzfDIHhFqL7LJ EweOPmTSKvB2gvREXfNOtgD VQgNFssbJQbQBM8qMnyx8D1 bGVzaGVldHtcZjBcZnMyMiB Hm3VvWYr1vFfgB5KsWSRaUy B9kXHzBMKuAFyrNZYbGUQqh fN6qM94CAlpagQ9zLJhj8Fa y94cp522bA0mhNTcSQN9JST gUIQvjJNoFZIbSPQ4LNClqW SaZ8ijATIgRM4loezfDSvqE YckUDBptYC5KMOhsILgJ1Sp RIIkXAkhHHAgjth5CbOpXs5 rpCCznCmfUGlsv5bcv5gcuT SyCjj3NICcEqAtRizhUOddc 4Xjb7yhJUZhfd9nSZB0hNMj qBawl9L3lPLxNCLzsOAhEYB kDQ1isARmHINhdB3txhtlMY BnYnJkcmhlYWRccGdicmRyZ r8qbDykRLD1YOwxY1nejW3m EdL8GYvdU7cqnD6vBLg7FKc rJRVbbKZ8iqQ3BIUbhFZqM2 WvkW1oMKSaOU1gelf0q4uvG BE5JLebOCJiXqB4zdK0IYQz iRMbWUZzdXkxYOmyk152HZF 2WcKkQOSma8BwE1QmaTmzU3 0otXshE92qMWWtdTmjqV6jw FalwD8hDmWwQkObGGyacZsu KC4uPOSxP8oraDSpKGVsOFR hD7anVdHvvS4ziDxhXHjmju VqKIUuUag1MISijZEyXYWeB od1PGXqAVNeX46owlubMLE3 mY3vo8efv9KlTWjwVPI6IMU wn07lJBrmutL0YLiuDf30DM tbUBL0BLpmCGY5wZ== CPT Code(s) (test code i8bsnDTbDFRadKB6WrOqTIF = 3357) an7mbx2AahDAdxSSzVAldbY WlniFhkl63fJH9dF98KI9fG ZIjCaE9OSYlypX8Oxt0VOJd OELtqKGhC217b8xyo0jzgeO bqIU9nLuqQSPepjvpKqZ9OJ eoKKVsbiupLWe5QArtMMIwp YI0VPGhwDHkW9XbWYDtNQ8j eab8SKK1GFkeNCRsLfG8RHU zlJCwFKHxsMuaLTixs352AO M1McYvBSUmqqIupYvqzR0cZ pCaKSU4YBQzJwphREM9 CLINICAL HISTORY (test j3elzREaYEKdlDG1OuHbWTE code = 3356) fj2jpu4CwqFIosZHsVOidfT UuuuNgkw94pPH1cE67KL0nX XRfFvS6HRNkuyZ0Dlc0IPPk RWHmpHVqI698x6rob2lhwwI kpSY9mTvcHGHzfplkLpS7RQ gdMOKeqgxxIGa4WUbtKRIbz YW9MEKlhGTlR1EsPUUiXS2p dbv8ZBI8YAnuTCMwMeA5UMT waIWxGXTbaIcgUSxfy675HD Q9WlSrBDAcrwGsgTmquQ9kF nMyMCBVbWJpbGljYWwgYWJk v20xusFuVHlukv4aYOjqFDM 9 GROSS DESCRIPTION w0fvfQUaCKDyhPSWBDQeV6u (test code = qykTyQDGotGDyT8NoxqlgCT [id number]) zfEO4vTU5pqJlveWAosRKcD A6LCZXkTfUeSVHelBPiceWd HvHjATMfgSPmoKA0ISUmIK8 mcrrjAPztRRimMQPoihI9DE WouWHhY8BnGVTxLD5gnwxpN SN8CGzpaM3caaDBTzdiKy3i dHRibHtcZjFcZmNoYXJzZXQ gSSDebUseZSQfRQw1lW2WDb rzHSZ6YDRLRdmoPPTjXM0Cy 7aeQEEggXAaADN1CFietFHw DQVeFJVkGTt4AHTcGHlisTN jRQ5jsAygUybjbKrne1TxzK BcXGlkIDUxMDAyIFxcZGIgI G6JMxUrZBG1FOb0YVVzMPb6 BRm3HN1YLcEcXSFjFFXfYbg 4AYSnMIe5XErpBG8YDTO5QW D2Ddn7PMY8BXTxYiJcZGUyG iBcXGYgQXJpYWwgXFxmbCBc FK0btPkvcKPjvhUZJnHKMMW uaWEuXHBhciANClxlcGljTm VzdERvYzEgDQpcbHRycGFyX GxpbjBccmluMCANClxsdHJj aFmuywCgXZFiW0HdtaKvNFH cVZTjETnhDlGuSRUcd8g1nK G1sPYvcPW0eALehBwoVlRvR J1glNCfTW0hXHzqIHihzhXp n8UrQN94kOFwkpAsxgZiAsp ynd4dGURzaJKpVJG5EtjoqX QsDuXdB20upT3lzdrzokPkZ YK3DI1vo4xgrbFqcTgfjIHp QSY2N0glEASrwR9nKVVwNBE 2aPCkGgTeQyRaF26gIBEMgN PoGHSsIJBfyMloUMBql0PiT AauELPtXF5rZThrLH79EGlg BM5hSXMmDLTancFcRHzkwRS hf9SsrKJzSI1ftr3twvNdvd UrbDA3sAY3JCczVMHvLRKax YOrol3oZDGdAXOeeK8pQSQ2 WU7iuawxwq3bLZHeLNCneXh avT6nBVJqHYJdv2axVKqkWK OeZy57OOzdGv7cSPvxNQ07P NGoTRTyB1V8jMEbWEQdquDm y26wu4WhwOjldl6yKMGtOyg yug2hLH1dzwBlp4EbBCOyx9 M7LS3yRJSaKXBanDGkKDomE QDwhlhksNm6EDSmJ0Phg25w ZCBhbmQgYSByZXByZXNlbnR foLl9VYDjWHZ1oQ9kSB9yCV SaRTDxmtJpwDE4oEAxKNAwO LXlvEewsarqGsaojo3bVQ0c rpPqm4HpBNAme2F2VBGwsrQ eyXClzXT1OJMfgE6eDPJhBI otkkTwYEuluiUbD4xsrZYtD VQRyfC3zsdaVIjNJMUTSBQw XJYGCWcaeH0XTOBbEIxhDNI baGWVWDA7NR4sMIeejPMxhg gkPVAgL5EmY5IoxmZxcUBxZ EJefjYzd3dvSCP7NKRhhWRq cIUjZpAlVsjnOFZ1HIgxj9z xQZA6HBQsrBDgdYTpLWktTb AnSwoxYEXpB7WoS3HqryJ7C Qp9 MICROSCOPIC p2uztVJzNFNakLY2LtWoPBW DESCRIPTION (test code dp0vdm2NphMMulLRrVFjnmE = 3371) VypuFepy49gUX0cC20ET3fI AYhCfM1LRXvbgE6Vkq8YTUl OPMqfNDuN693v4egd0xqsmC keSS1gShjTPAozyvgKuW5CD vlGHAkheqrAIu4QIchYSCsi XO1HMVjjLYaA2YkUBQpCG5r dum8XLS5VLdnZSXlHkC2YSZ bwEHpAXFvxCagKVdjt221IO H5GhZtELTahgZlkUywqG5wH kPaVRBHUUTrp0ZkNEVzOQit YXJ9 Gross assessment was [facility] performed at ([facility], code = 2777) Department of Pathology, [address] [place] [address], Technical component [facility] was performed at ([facility], code = 2778) Department of Pathology, [address] [place] [address], Professional component [facility] was performed at ([facility], code = 2779) Department of Pathology, [address] [place] [address], [facility] HospitalTissue [id number] 19:09:30 Test Item Value Reference Range Interpretation Comments Case Report (test code Surgical Pathology = 104) Report Case: [id number] Authorizing Provider: Milena Swartz MD Collected: 02/13/2022 08:26 AM Ordering Location: [facility] Received: 02/13/2022 09:18 AM SERVICES Pathologist: Annita Brower MD Specimen: Hernia, Hernia Sac DIAGNOSIS (test code = p3rxjFJbFDBxr6zaJFIppSQ 3220) uZzEwMzNcZnRuYmpcdWMxIH tccnRmMVxlcGljOTYwMlxhb bPiWKEseMZdR9DvshlxQBib IN8uOH9jlYegqKXezKSiROB oLwSan9bpa884yVTxs5cdAW FDmwcrrUb8jJcmP87sb8J5E qlvJ89bdUJqGSI0UPVqYEOr tTTrEESsBTR7YZCoxFEwN8w sQOBkKN8nacvqNTntGHzyYF SnwRN7GVHrwDQsP6VgEDMlE VarQBTlyuu3RrFjYr6quNVs eTcyMFxwYXJkXHBsYWluXGZ xZkDaD4nQPvJYReTtA11ECO PWZGDTKTGtQYDBEE6PVR0pK UpOGe6RF1GGKOSUGCeqvSSy XGxpNzIwXGxpbjcyMCAtIEZ HZxSIItWUI7RGYXLuBCpIM3 PHNCXTJ9QKPZuaPPmROUKhD hspDpZCILaYGW3QR77JDGBO LJBQKNUULRiUEVYRN32CRXF OVC2KQEFtvwVzYFfHEIryGD MUKghASYNMF3kpYLBfCDVVB 9sLKQsCTUcuS8MELWGZMHGO UWevCPTVN7hTIwNPLlFwQ5W YWspeRMUrlRSkPZywYQL1a8 xydGYxXHNzdGUxODAwMFxhb nNpXGRlZmxhbmcxMDMzXGZ0 bmJqXHVjMVxkZWZmMHtcZm9 xtNMqxJnzNeIcTUFwg4rkqr CTqcbloEc8f7bkHJPdOeF7q WOqBWbbH5zwckZcgBZoMKCx IUh3rO10QXJnoA1mvCOqSKu zylUmEjT3NDaaGKDgJaD7KF EqkOLkFQPhD6ogNEVmMNniI GHcGUpzzDZpLZR0xLelo5K0 bGVzaGVldHtcZjBcZnMyMiB Ce4JgRDt4hHznB9SfGFNcIs I8dRTaIIKoQAycMLXvORInm dD5jS85EBfkkyA6fEJyl5Ve h29ge537wI2nsPYuQVB1TFR kDNDkjHNcUHBjFFD9IEMamM AaB4noBGJeAG9vdzsaYIezK HfaBIPtoFB1KICmcZKxB3Ap WDCaFKanNWDkdjz0IfXpFp2 xqXQokXjdPAvea7lnp9zvcV NbIwr1OACuVySjQffqZJpqv 0Crt5xxGWOgcr7kMDJ1kRJk dLpln8U8nPBoPNTscILoWOH nFK6pfNWjCOBnnE8zcmrcPX BnYnJkcmhlYWRccGdicmRyZ o2afLsnIXQ5WWtjU4xogK1w SvK9HRqkE2hmaJ8yEDo6VOq fKJTlgYN4tdG9FPBhdQUqA1 HpxU3lEDJkNK9ysgu1f7fcE AK7GRtyYZJmGjP9szU3OEEj fIQhUEIlxMwnJYdxo504TCB 9TgVaDVXav7WaV8JtzHwyE3 9jtIkzB07wDXBtqLqzqE1nj JhasA5ySiJwMiIlVWknrDct JB7kOLKiE4vlvPXzCHTzQRG jP7fyChKnkP0mjDiwHFvesb OaVLYeEdf8KQBgyLAkEDBmH ao3XWFjRHLcY33zfbsrMJW3 zD3jf3yjr5EkHExxDEU5LKI aq52aWUgebnL7SHthJd99DD wuBZP6MNtpSVB3zP== CPT Code(s) (test code z2mybXAmSGBxyGW9UmHmQXF = 3357) xu4acu2UtxILnnCVaRQgjiP UmtmKjtj58wBE3sQ63LR6tI FGfJfM4PSBqbjG3Iao9XTVt BJFdzHYuW895z1rjz4ieclF pdLW0uZetQXGbdsxkXdL9RD wvSZScebexHQs4IPdeNIVgh SR8WNAgvXZoB5XhLENyFA7j biv9JMW2JTjdIFVmWzZ0ZZL paAWpNLIsbJlwMMmwd766OU P8LkHwUFXsugLnpJsqhP4yC dTxUHC7EPUfFaxlOLB2 CLINICAL HISTORY (test z7rhaQWsYVSrlZH2MwNqQEZ code = 3356) sh3fob8GjjRZhlTHzMLnluD TtlgJajr44wRP9iM96CU7qK LQpNnE9LJBulxG6Kgb6GKKd HTCnpEZeB836g1pqa2wddwQ svAR4gPteXVPsexqyPhW6RA koFCMvwjgiYJz2GVfaYSDir AV2HFManPZkL1EgJKMoUB8n xtf8PDK2VItrYBWyLvD7HAZ jfJHrWRSssFzrHWdxg357CJ O0DmTpPMPazfPhhXhrsB6nZ nMyMCBVbWJpbGljYWwgYWJk c93fpwOrWWkgny6oWIzdQUQ 9 GROSS DESCRIPTION n9rlcBOcSDYjpTXVWESwE3w (test code = pazZuZREeiFWvG5MragdyAJ [id number]) duBO1mBU4eeAwsbDNztQIjE O8TXGLcAgVsXHJagEIljjDk YqIhBRBfvIJjoJO8UWZnPY6 unyxcMSwyBDpnDWMrhiF1BG AvvBDfN5IvAIGnJD2wvzjcY RL7MUkzcK0falVMGqkuNw6f dHRibHtcZjFcZmNoYXJzZXQ xGRSpzMlpSHSsWTl3iM1MBs viMQI6VIAWOxndUABjXI6Xp 2paGLIxpFFxPXW5PQgtvUHc XHVfQHZtOEc7EGVvITylwCM uHF8pmKlmIptxlSjkj5AteM BcXGlkIDUxMDAyIFxcZGIgI T4GDgUwKSD1ORu1RLTuZHm2 VGt9CT5DXaWwSHHaWSLqIzn 0HXBvRWm5SKjaWD6SRIZ6SY I3Nky7FRW9GDIsWbFeZGJnM iBcXGYgQXJpYWwgXFxmbCBc MH5niOlwsWXtsxBWLrWKKVN uaWEuXHBhciANClxlcGljTm VzdERvYzEgDQpcbHRycGFyX GxpbjBccmluMCANClxsdHJj oSeiauJkDGWbB3NnrjIiVLK mEYQdDYxnBrTmSKOqj1y7yF U2zMIpmTP1bWBtjLpgCgUvE I5ubIIrYR7xQAdsRGlxbiZp c6IpRW27aCOstmSmzeKgTyg mik6tBGFaoFUfHBE8RqhguC OePcWxB60uiW5mivwozxIfE BY9TX9cu8uqnuPcxWpriIHt PDI0S2xwOMOktT4sJIGjGCJ 7mPLjKjXoAeBmC73uZGHUeG NbILPgSQFaaBkgAYVkh0UaZ UrfCNUvCV4jYUnwKA73LYpw FP3cLUCoMXWnguZiWBbnhYY vx0NpqUAzBU1mdo8lwdEzbj HeaVI1vHO2KRnmNBDuIHZoz WVhhx5nNMJpWYCoqP5cSDJ6 XO9xxkgyfy2yLIBxQPJebOv bmV0hOIZfUMLyn0pxVKjtYN HqEo04BOruCv9qAJhsLY22Z ONpVRWtO4R1yUOhRZFshxCk r25ai0ZmdTndil5kMIWtBjr yzc4qYJ8fcsGay7BxOCTad3 V0GT8cXAPgLEXerWJvGFatO KIgjxwfdBl2CGKnW3Jlz91t ZCBhbmQgYSByZXByZXNlbnR wpHm9FGBqGOJ9zG5xQH4lGP GcSBNfnxBubNN0iVIqDKOcW DBpzYtcptqbKwefjb3tXS8j tfHos3MdQSUbi4F4JDZdhbH ojFOzsOT2MZZkvL8oORAfLV wcceKbJMcqzqUdQ8gigMUdK RIKtuU0rdydXTfZERTEXYUp JMIHQDiyzG3UQSDzNLarXUB taAOLYZT3MD1wUYbifJZrqv qpFEQuJ1JrU1KtwoFawQXdT VOeteLgg9woIIB7LAStgGHc pCTyWzRdVvnpPFD4HDhwm4z mNDA7VXHbbYVroANwJQvdHt IyFrcrSZYdI1JyK4LcqlK3N Qp9 MICROSCOPIC t9gssIDtJBYtzYJ1TcCmGRQ DESCRIPTION (test code ye7ajh7VcfBMeoCPjQIswgM = 3371) IrhuDyji26yNS7jU45UT8qY COpHpS6MTDjlbH9Kgw3JFQc MMCgzPDrP133l4cnv0zppzZ cqEJ9oVihGYCvmzgwPcP1GC jwYGRtlwqnKRi0ATypQLWch RY7QFAzcNOwQ7YhRBUcIR7b vdl6ALB9TQlsYAJuVkX4YLI upJCaOZBreMctNAxzs943IA G2MiKwBNHpcfAdmVxkxA2aM mAqXUHDBCZoc9ZtZWIgHGta YXJ9 Gross assessment was [facility] performed at ([facility], code = 2777) Department of Pathology, [address] [place], [place] [id number], Technical component [facility] was performed at ([facility], code = 2778) Department of Pathology, [address] [place] [id number], Professional component [facility] was performed at ([facility], code = 2779) Department of Pathology, [address] [place] [id number], [facility] [id number] 19:09:30 Test Item Value Reference Range Interpretation Comments Case Report (test code Surgical Pathology = 104) Report Case: [id number] Authorizing Provider: Milena Swartz MD Collected: 02/13/2022 08:26 AM Ordering Location: [facility] Received: 02/13/2022 09:18 AM SERVICES Pathologist: Annita Brower MD Specimen: Hernia, Hernia Sac DIAGNOSIS (test code = [id number] 3220) uZzEwMzNcZnRuYmpcdWMxIH tccnRmMVxlcGljOTYwMlxhb zNtULBwaWFaH2RxcdmfKKrz EH5wQL0zyTebdUHhePQpIEK bRjKvv6frw888eJGsq7ncAO TOgatflFx8yYnpR43cd7X7K qbgZ82exYAvRBA1GTKwDCHr aMOpMPBiCLL0TYGpkHMmU5p nSKYkDH3baywuILpoVKmsIM KibSV9VIJobLPzZ0EkQMHcN XutZIJqiun1FeSzJs8cxJBa eTcyMFxwYXJkXHBsYWluXGZ mQzYqD7vADsGJPmTyG08RWP GIVKJDNNEnXKUGGW7XRR9aA PhJXl1NF5EFXQTWJMkpwTAh XGxpNzIwXGxpbjcyMCAtIEZ PKcVPYcMTH6VAKDBrRSoAG8 GUHJEDV2JHYYyjOQxBKCGzZ vutNtEDQXpNYS8QC70GHONJ XFCMVZKAQCxTHUCWX36LZYD XXP2FZRPcubXlJZfGCWzoLP TNAnkVEDLHS3dqWKLtAETVJ 0pCJTrVRKxrE0JQQDZOLZJW HKimORLXU1qKYlVUFnNxM8O UKtjvTKCdfSVkEHnvKBJ4j3 xydGYxXHNzdGUxODAwMFxhb nNpXGRlZmxhbmcxMDMzXGZ0 bmJqXHVjMVxkZWZmMHtcZm9 laRNnqGmuSvFyXDDfc4ufvm UWrbajfNo7j2csBJDyTyF0c LLzSXtkG1vedlKyuUItYWVv YUu6oL66EJXgyB6teUImZMo xpsFcOgI4TMaxXVSyIoK8SE XjvYFcENLeP1ppXRIxAJyzV QDzNPnrhWLsKRM9hDxsi2F4 bGVzaGVldHtcZjBcZnMyMiB Ev7LoUKc4iOqkB6JmWQYxOj V2iOGdAERzTPkhWDStSJSup bS2bP80CQewpwB1wHKsb2Yb p27kz674fP1hhPHiZYD1EMS xWVHhmFDbYVOeIGE9JBGenW OmO0jwHLQgEP8vdlkiEYpkB FemGEIcyPN2GDAjgMThY2Wh RTIsKVonFOJsdxh4DkJwLo8 kwEVwjBsxWKaff1mjz9rnfZ YoAfb5MNQaUfNfCgnmTByow 8Mng1ltPTKrtb1gCPK5eBJs lBjrj0D9cRMjTXVxtICqGEA gSQ5czJEqHCBhvS1bdoczWW BnYnJkcmhlYWRccGdicmRyZ b5afVxkTLQ7XIqjQ1pavD7h LvK1LPllI8hfzE2bCXp5GEx sIKKbjSY4wsU4VANngSDqZ9 KmfS2pWTSwPI8pbqo6y7lrW AL9PGtnWAGvYuP6zwK1PDLf oCKcXFFyzIbgRJzon961HUB 3UxXwQMVsl4KzR5LfcBueZ7 3knFizM57sDLRazNjolF2db SgnvB5xKjPfMhLbPDxwcGja PA9uUVKzR5baxDPmDGIyYDX xW6fxFcZhrH2ksBtyZQkrkx DmKBMlYic4ASDmjYWjZOTnJ gn8ITDqVDVqE61bbhsxUTJ3 mR2uz1phw3ZzTNfuOEJ7UDB bd72kISwfksH1RWnqGi11NU wyJVL8HTgfMJH2uD== CPT Code(s) (test code b0ddjTSsELQvfZH9HqKmHJX = 3357) lk3jtr7VusYGuqWMdQZumeJ LfjaOvpd37wIX1hV53WY5zB KPtEwX1SEXdxoB9Hnk6HHUe QZEqvRMaA430f5nrg0oyxqK iqNQ2oBoaKDSjczamQmA5GY nlNEFehvrqIJj5ORclXEXca KG0MQIkxAZbD8BpLUDrMM2y cge0UOQ7LJpyZVNnWqV3ZQR ncJAtSQRcsMlwNGrng052JF D2EtLhRCHnutVlgLdwtG1uO oUrPDM9MTXgTdwqSWH1 CLINICAL HISTORY (test f7ulzLQyHKUbjRB7BbFnZWS code = 3356) pv5ecp4VpxDQxvKWaRUvouF UyxeIjzc42sQZ7pI07NW2qB UXgMsS0BAAerzD1Doz0JFDr SDCqoKIjZ348w1obs0uzbbW nzDZ0sOwuQPNhaaukBpU9HN gjQTAohjtnAWi0VUxrCOKiq AG3FCNvkUCpU8OaQLWeGS3h hqc2STH4RHhvVQRzPhM9CCI kbQZmXEEmiOazPKgci771YG H5ByBoSTJrbwQclUnjmY3nR nMyMCBVbWJpbGljYWwgYWJk x63bkaDvQMxayc9iWEduVEK 9 GROSS DESCRIPTION f7irzUJsKSIenCABMCHzM8f (test code = ptnLnWETteGXhP5XdemnpGB [id number]) ipSM2aAO9lzSjhdQRigJDqD N1RGZOqYxMeIKByqVGlwnJt NrAtPAEkiRRyvUB0GSMtKI5 jmnwpUEyoLEcfTHHaxwS4TP WhcROxS6VqRMWyTL4drzgmM UM0DYkzxM1laaUHCbosIt6i dHRibHtcZjFcZmNoYXJzZXQ fZVTlmTqiTZJuHIi3zH9OQe ccNRQ0ZXCMOzscPTKnCX2Ux 7qvHBJbxFUxWFE8ARhpxTMq NWPrSLUaVNf6RNAyZXrlrHS qDY5nfArhUvacoNqkb3RkoN BcXGlkIDUxMDAyIFxcZGIgI V1NEiVlKVP6UIv7FBBlKFa7 ANg7XS9ZJgFjRUMdMFEeJri 5BWSgHQl6OAwvJH8DNWF6BC Z7Mpe0OGF5TXPoDdMnHHTnJ iBcXGYgQXJpYWwgXFxmbCBc DM6flXgprCYpkyWFVbKMACM uaWEuXHBhciANClxlcGljTm VzdERvYzEgDQpcbHRycGFyX GxpbjBccmluMCANClxsdHJj xQueivDhLRThA0DychPsUCA gBIYpJYlwMzUpFUXyl5l9jN B7hYRyyOR5aERgdIexHiOqJ X6mhYNhBM3dSTsfPFxkukXr o0OjPI56dCBbuxZjorHkRia yxu9jCBPuoFLyOWC5DxwddX HlEqDbT56ymJ3ipormkrWrD WE8SI9rj4nerrOfnLygsHHo QJV7I3dcSWUueG2pDTKsRWY 8fJVrVmKhXvAuU12jQHBDsO DiMQXwTQOsnQbwVMKgr5KeI NbkPEZoCA0vISjmIS94HRev QH2zTFDiWMZhvsFgKQhbdAG ys2YojIZfMI1wfo8ahaBzal KjmYW3uGO5RLaqBMGpOIMbm AXacb7lEIYvQYRqkL3fUVQ3 NB8qdkbmpm7fTNXmPCWsjZa ftS8cAOYlAXTzy4xiBRbpNF TbJt73YAagGy9sXVcnYN42P DPxFFKcM6S1jAKdVXLomgYd j67fp3PwsCjbfe4gILJqDiq xyh0pFI9hfzYsv1QwXLYtg2 O6PH0sJNArQPGnrCKjGFbkT GDrvzijwUz6XEKwC0Uxq97b ZCBhbmQgYSByZXByZXNlbnR aiGx9JJCeJND6qA2nCY3cFU AlVDYnfwFalGG2oLSsOCHxB DBobXbfagmkOgrlof1lNN1f flFat4FoUIJgz9P1VFUoecR raXLieMF4PPXfcT8pADAfWA qiyeJwGMsxhgAkS8xymFZtX FTYmuU8wffmAStXAECLWLEh QLPMJRznsN7NWJDoQNneYLL vzXJQXMJ3OI3kAZnfdWKjpq ynCGDhD6TnP2VlofMbkTHfL UTrwtJav5kbPZR3VEFkvVTi sVMyMxSqIdsaDYW5MDlew4k kTHF7ABPawBPakSXsABehHp TaYkejBWByW4AfX7WwdbH6U Qp9 MICROSCOPIC m5ssbZBuSGTsiAI4VhGaZGG DESCRIPTION (test code tw6xuz9VbdGLxrQHgJJuvwQ = 3371) CpueVqvn09oGX5qD40OS0mH EPsVdC9HNZnbtJ0Kxy8PDQz WGBtqADuY185j5vzr5grmnV pcYX3bUjoTEYuiabiEfW1OF toLKSdxmzzIYu2XXsjHPIrv EM8AQWkmPFnI1LiIOIkPT6b tda1RMF6WQthISIlXrB6FZM igKYmMHKyzAqmNRykl338LF R2EzCyPTVvlgJfiLrjcP5wL nHzSYVRJKUmn5VxEFPcZYmz YXJ9 Gross assessment was [facility] performed at ([facility], code = 2777) Department of Pathology, [address] [place] [address], Technical component [facility] was performed at ([facility], code = 2778) Department of Pathology, [address] [place] [id number], Professional component [facility] was performed at ([facility], code = 2779) Department of Pathology, [address] [place] [address], [id number] 19:09:30 Test Item Value Reference Range Interpretation Comments Case Report (test code Surgical Pathology = 104) Report Case: [id number] Authorizing Provider: Milena Swartz MD Collected: 02/13/2022 08:26 AM Ordering Location: [facility] Received: 02/13/2022 09:18 AM SERVICES Pathologist: Annita Brower MD Specimen: Hernia, Hernia Sac DIAGNOSIS (test code = [id number] 3220) uZzEwMzNcZnRuYmpcdWMxIH tccnRmMVxlcGljOTYwMlxhb fCuGHHnrHNiA0XeaqseURyf JB3lBS7mlNfrmROxcSYfUFA kTiEgr7jas609sLEca0vpBH JXwlpahJf7mJmjF80on7S3C labM92fhAUhIHS9PIFnYOOp gYHyTPWgFPB8XDSpsAIxF7d dVNLzHF5eknkrLNrvPBxgKK GsbXY7RDBkbZBwA7UzRSLwV WuoRHFjlkm2KkSgIh1mhGHk eTcyMFxwYXJkXHBsYWluXGZ qQbEzT0cMOmYWMiAxB42YFK BVFFVZOPRwZHHDRV1KKY6sW YvVYx4OA0ONZJZRAOlqlXSo XGxpNzIwXGxpbjcyMCAtIEZ SGwDKTwCJT1YIRYZtDRsQI0 MOSZNSC7CHFWgkMUeWHVEpU ykcDwTYLKdDEI1PE99PZTBE WFNKCJCDOYnGUGYXM71JNUQ PSJ1RVTEfgcQiLDoOQYirEV NHRirEKEEYV7ibTJTiNGANF 6eFECrDZXroB3SXTLNPBTHD YNwyIGYHU9tZEtNSVtPtW7P AYpkmUJTaoMJdTXcaKOD1m6 xydGYxXHNzdGUxODAwMFxhb nNpXGRlZmxhbmcxMDMzXGZ0 bmJqXHVjMVxkZWZmMHtcZm9 vsXDvoAgePdYiMODst6putd MQijccpIo0d2hqIXFjBlD2x ZAfGReqR2ccszTijTEzXZFi JPx8lT83RCQfgV6bdEQzLNq pqnBwTuE0GRvdWLDoPrW6AQ DlnKSsYGNsQ3roBTOmEPfjC USrLVdctMYqPSV8gOtjc0M6 bGVzaGVldHtcZjBcZnMyMiB Vs6RrYWh9jIjcP7LjSMJqMw Q5gNCfOAPtPSefMZReBEOnk eS9mK61PZvmulN0iUJwn2Jp w57tj845qC1rsKKdBTN3LZE wRNXiaHAyYDGgRIL3HBSveY PsC8yjUIHqIO6dsbjzPAiuL FmzWANzrEV7FLPnsXHaX3Vq AQCbINlzJNDlqon5HsDfLe9 fyAAzvMswPGkyw0gby8aulR IqGvr0IQEpUsKyAcydZDjsk 2Cye8ofDVYxrf9yLGF2nDTr uMzpz0C7gJLsACJuhODqHYA kAG5elIPfTOMljE7rhdxdAN BnYnJkcmhlYWRccGdicmRyZ t1usFnjQPB1ABaoG0kwcY2e ClY9UCtrI8htnJ9jQVm0CSu bIOJjtHX2bbR5LMGunPTaT2 YqsG4bNENcXQ0fomb8l6asJ RH1NTfnDAZxYaI2dnD2NLFb fCUmIJHnqFfhOEfyt282FIY 4EnErYTVzn8VzE3EktMvjB0 1rqMkyT24lVTDmxNplqD5gl MzzfW3sDyIrGkJiLLzmiVcl JS3vRVXgR5ocyUTjHASuYBE hV9bbFdQwyS0mnJbtXHlcih OdZBZfDxw2QXCyvLYgAHXmC pv5EFKqDUWkG37mgjsrUHJ0 mN7zy6wdw0IwZAjyGTJ1HBJ jo37aEOdnzjI4VGfwRk85VC naHKN9OVynKPM0zV== CPT Code(s) (test code p3zluBUkSXUmrWY2SaRcBES = 3357) nh1zab9RsmVJmsWQnPUrehZ RrhpKbyv75nFC4lH29IK6xA BIoVmP8AXMjzqP5Rmn9IQVd HTRtnXOeK437a1vcp0hrtwJ oeXS9bQoiUZMyfzykKkD1WI klDSBxbbubEKi0CVciLXXam GN6PLSrgHVcK9SyKCQhIG7m uyw7PKX6NOvxDHNlKzW3SJB yvPJkLVGleDhoHDfrh217SZ T6NjIfMNWsepKhwPvyzV3pZ vCcEJD2IHXxAjnmMSJ4 CLINICAL HISTORY (test l3spbNMuSUGlqXT4KvYvHFD code = 3356) uo8tui7SlyOWvhUNiWYpnsY RywnIjiu84eTP6gH56KQ4jH IRgXxU0ZPSueiU9Wmb6WPBv KJDjjUObO372p7sfa5nlrpV ncWI4rNizYOPxpveuAiM8AM coEGQsdkqdYZm0URlpZDEvz YD5PIIwgNYwP9EaAFJgJZ3x kif1DYT3OJlzOXQtAmO7SGN pnKKrQMZheFkrBZtgg463BR C8CuZjXLRwtvTbgJmoaR9sY nMyMCBVbWJpbGljYWwgYWJk o89rupQlECieuf6nQEjbANM 9 GROSS DESCRIPTION u0maxXKzMJSzxDWGFKHpB1x (test code = coxNyFDKowIThC2TcohuvPQ [id number]) ivSK1iEH1opSzpxSKtmADnH L9RZFWgLpVnEGCrbIPwupJe OmTzJVMhbQGykZM6EAOkKU1 uaykgKVhnBZcoZXOkvvR8MI QftTDgZ0UvVTUmLQ6ttvebX QM1UQkweT9hzrBBPpkzAl9w dHRibHtcZjFcZmNoYXJzZXQ jAGNbyFyuCWNvNBj5rW8JYw hiKQS5OLIIJtvpPECmTP8Hs 3vrVUXinVJxLZA2EZtloNZv TRAcZIMiIJw3DAMzJMuopLR tVM6uxVpiAxhovBoru2AcpC BcXGlkIDUxMDAyIFxcZGIgI V6ZCgNhPZJ3XKw3GLWtTUt4 XEp1ME3CTdPjOIIqVYUdEyt 0FLHuAWm0OAzwYU8QETN7GH B5Wnj1DGE8OVJnSfApDKQbK iBcXGYgQXJpYWwgXFxmbCBc LC4qzYyjrRRumxJSLmSZBMA uaWEuXHBhciANClxlcGljTm VzdERvYzEgDQpcbHRycGFyX GxpbjBccmluMCANClxsdHJj gTbcxqXgNUBcI7PsabQaEXJ tEHSoDRikWnLvEIBpm2s4kF W3sOOxlBM1wOLpdXggNiNrW B2tfVYkNN9dIKqtDFyamcGc r3VmRJ62tAHxxnIeshRcDsc xma2sQAQzmAUyYEC4GejzvG EsTzJlT27efQ6yochddwFfJ JO3TT7rw8bbjpGgaJjchTYv ESC3B7eiIBFaiA9cDCHkETP 3eVNiSyJoYhPsM09cLYUQxJ NtKXOxCPBppEajMPBqu4IqE NuwSCErBJ0oNOriMH45VWhu JM6hYEEgSYNglqWdTRxhoGU ka4KpnCSkMN4czq1lutHfun TeyZY5rPJ4UFygMQMiMOHgk CVlwl7vFVPeRHDweX0vAZM6 PD2bdnuqqp0xUUDnXJFytHv dsL8eUCQgUNBka6wiRRgxVG ByGq90DVrzLo1tNXdoUP56P VXjLPWoO7M8nTUeXGPlzvKj z49yq3LcmEwdwo3pMMCpOfv hfb5jOA1ippAft1XiGLZsy6 M1VV7vZBRjXDYjcVTaHUziU OYkyuxdvRr8FQAwX8Kjs45q ZCBhbmQgYSByZXByZXNlbnR gqLq1SYUnXLA8rU4vMQ9kFI EuQCFyzsKlbQQ3zQBiJASzJ MRoyQdtetsuWsitmt0lBD2s wlKtl4JpSVOwp2V3FQAccwW miXTrhZB3EKOkvT7dLIRiBV hjyrEeWVpalsIgL9lobTPmK FMXvyV1tutjFIaFQXXQGFOc QGHTJNqjtR7RQSBwWOauQAY qzGDOMXN0RB9uQHkutQTpmm meZNBaT8IwN4DoggHpgPZfQ PTrnoSfq6qbQFP6CWOoeGVb hVWaSsKxEtvdVAX4LQqpz6b zXUO9EALdgZVkkJViYHzpAt WvTlbnLSWuR3AmF6RgvdO8S Qp9 MICROSCOPIC e0eblNNcVSRvcSV6MdVdFLJ DESCRIPTION (test code ik1cdk0AcjIUzaMVyXPzvdS = 3371) ClqoAhwk88wRA9zV52HI4rY BMyWyE1ZFWyulI2Ejt4OHNn EAEurRHrK920f9hhd7bfxbY koDJ3fJlsCFKxeismTnP8RU tpKIHygqpjJXv4GNmrBVBfu GN3SCRzcCZqO3IwAGSxXK2n cxh6DBR5RGmgYQPsGcH3JDV ykDChZDCooNodYSuxi046VV U1UcLfSMGrqnFynYufyO2qD gWtTQXNSUEro6UhBJLjOXgy YXJ9 Gross assessment was [facility] performed at ([facility], code = 2777) Department of Pathology, [address] [place] [address], Technical component [facility] was performed at ([facility], code = 2778) Department of Pathology, [address] [place] [address] 85755, Professional component [facility] was performed at ([facility], code = 2779) Department of Pathology, [address] [place], [place] [id number], [facility] HospitalT[facility] [id number] 19:09:30Surgical Pathology Report Case: [id number] Authorizing Provider: Milena Swartz MD Collected: 02/13/2022 08:26 AM Ordering Location: [facility] PERIOPERATIVE Received: 02/13/2022 09:18 AM SERVICES Pathologist: Annita Brower MD Specimen: Hernia, Hernia Sac SKIN AND SOFT TISSUE, ABDOMEN, HERNIORRHAPHY- FIBROVASCULAR TISSUE FOCALLY LINED BY BENIGN MESOTHELIAL CELLS, CONSISTENT WITH HERNIA SAC- SKIN WITH SUPERFICIAL EROSION AND SCAR Signing Pathologist Direct Phone Line: [phone] signed by Annita Brower MD on 02/14/2022 at 7:09 [id number] abdominal herniaA. Hernia.Received fresh labeled with the patient's name, medical record number and "hernia" is a 5.9 x 3.2 cm unoriented gordon skin ellipse excised to a depth of 1.4 cm. The epidermis displays a 1.3 x 0.8 x 0.2 cm centrally located maroon crust that is 1.1 cm from the closest margin. Underlining the skin is a 3.8 x 2.3 x 1.5 cm saccular portion of pink- red fibromembranous tissue. Specimen is serially sectioned and a software support representative section of the crest with underlying fibromembranous tissue is submitted in A1.BREE Malone, KAREN (ASCP)cmPerformed. [facility], Department of Pathology, [address] [place], [place] [id number], [facility], Department of Pathology, [address] [place] [address], [facility]xcwfbUniversity of California, [facility], Department of Pathology, [address] [place], [place] [address], MZWGA [id number] 15:01:18 Test Item Value Reference Range Interpretation Comments CULTURE (BEAKER) (test No growth in 5 days code = 1095) BLOOD [id number] 15:01:18 Test Item Value Reference Range Interpretation Comments CULTURE (BEAKER) (test No growth in 5 days code = 1095) PROTHROMBIN [id number] 12:19:24 Test Item Value Reference Range Interpretation Comments PROTIME (BEAKER) 18.5 seconds 11.9-14.2 H (test code = 759) INR (BEAKER) (test 1.57 See_Comment [Automat ed message] code = 370) The system [employer] generated this result transmitted ref erence range: <=5.90. The reference range was not used to int erpret this result as normal/abnormal . RECOMMENDED COUMADIN/WARFARIN INR THERAPY RANGESSTANDARD DOSE: 2.0 - 3.0 Includes: PROPHYLAXIS for venous thrombosis, systemic embolization; TREATMENT for venous thrombosis and/or pulmonary embolus.HIGH RISK: Target INR is 2.5-3.5 for patients with mechanical heart valves.BASIC METABOLIC [id number] 07:20:14 Test Item Value Reference Range Interpretation [...] 1092) DATA TO CALCULA TE ESTIMATED GFR. Bit Sharpener Operator ID - LIZBETH MARAHPATIC FUNCTION [id number] 07:15:22 Test Item Value Reference Range Interpretation [...] (test code = 8 U/L 6-55 347) Bit Sharpener Operator ID - LIZBETH WCBC W/PLT COUNT & AUTO [id number] 05:36:43 Test Item Value Reference Range Interpretation [...] (BEAKER) (test code = 2801) MISCELLANEOUS LAB [id number] 15:43:46 Test Item Value Reference Range Interpretation Comments SCAN RESULT (test code = See scanned report [id number]) See scanned [id number] 11:00:24 Test Item Value Reference Range Interpretation Comments Cytology (test code = See Separate Report 2629) [facility] 11:00:24 Test Item Value Reference Range Interpretation Comments Cytology (test code = See Separate Report 2629) [facility] 11:00:24 Test Item Value Reference Range Interpretation Comments Cytology (test code = See Separate Report 2629) [facility] 11:00:24 Test Item Value Reference Range Interpretation Comments Cytology (test code = See Separate Report 2629) [facility] [id number] 11:00:24 Test Item Value Reference Range Interpretation Comments CYTOLOGY RESULT POINTER See Separate Report (BEAKER) (test code = 2629) HEPATITIS B SURFACE [id number] 07:12:32 Test Item Value Reference Range Interpretation Comments HEPATITIS B SURFACE ANTIBODY < mIU/mL <8.0 (BEAKER) (test code = 647) Bit Sharpener Operator ID - PIAYA LBASIC METABOLIC [id number] 06:43:07 Test Item Value Reference Range Interpretation [...] 1092) DATA TO CALCULA TE ESTIMATED GFR. Bit Sharpener Operator ID - RIGOBERTO LHEPATIC FUNCTION [id number] 06:36:45 Test Item Value Reference Range Interpretation [...] (test code = 11 U/L 6-55 347) Bit Sharpener Operator ID - PIBRAXTON [id number] 06:36:44 Test Item Value Reference Range Interpretation Comments MAGNESIUM (BEAKER) (test code = 2.0 mg/dL 1.6-2.6 627) Bit Sharpener Operator ID - PIBRAXTON LPROTHROMBIN [id number] 06:30:02 Test Item Value Reference Range Interpretation Comments PROTIME (BEAKER) 19.0 seconds 11.9-14.2 H (test code = 759) INR (BEAKER) (test 1.62 See_Comment [Automat ed message] code = 370) The system [employer] generated this result transmitted ref erence range: <=5.90. The reference range was not used to int erpret this result as normal/abnormal . RECOMMENDED COUMADIN/WARFARIN INR THERAPY RANGESSTANDARD DOSE: 2.0 - 3.0 Includes: PROPHYLAXIS for venous thrombosis, systemic embolization; TREATMENT for venous thrombosis and/or pulmonary embolus.HIGH RISK: Target INR is 2.5-3.5 for patients with mechanical heart valves.[id number] 04:53:41 Test Item Value Reference Range Interpretation Comments PARTIAL THROMBOPLASTIN TIME 43.5 seconds 22.5-36.0 H (BEAKER) (test code = 760) PROTHROMBIN [id number] 04:52:58 Test Item Value Reference Range Interpretation Comments PROTIME (BEAKER) 18.7 seconds 11.9-14.2 H (test code = 759) INR (BEAKER) (test 1.59 See_Comment [Automat ed message] code = 370) The system [employer] generated this result transmitted ref erence range: <=5.90. The reference range was not used to int erpret this result as normal/abnormal . RECOMMENDED COUMADIN/WARFARIN INR THERAPY RANGESSTANDARD DOSE: 2.0 - 3.0 Includes: PROPHYLAXIS for venous thrombosis, systemic embolization; TREATMENT for venous thrombosis and/or pulmonary embolus.HIGH RISK: Target INR is 2.5-3.5 for patients with mechanical heart valves.CBC W/PLT COUNT & AUTO [id number] 04:09:00 Test Item Value Reference Range Interpretation [...] = 2801) BODY FLUID CULTURE + GRAM [id number] 16:28:40 Test Item Value Reference Range Interpretation Comments CULTURE (BEAKER) (test code = 1095) No growth BASIC METABOLIC [id number] 06:42:07 Test Item Value Reference Range Interpretation [...] 1092) DATA TO CALCULA TE ESTIMATED GFR. Bit Sharpener Operator ID - RIGOBERTO [id number] 04:33:17 Test Item Value Reference Range Interpretation Comments MAGNESIUM (BEAKER) (test code = 1.7 mg/dL 1.6-2.6 627) Bit Sharpener Operator ID - RIGOBERTO LHEPATIC FUNCTION [id number] 04:33:17 Test Item Value Reference Range Interpretation [...] (test code = 13 U/L 6-55 347) Bit Sharpener Operator ID - RIGOBERTO LPROTHROMBIN [id number] 04:11:48 Test Item Value Reference Range Interpretation Comments PROTIME (BEAKER) 18.3 seconds 11.9-14.2 H (test code = 759) INR (BEAKER) (test 1.55 See_Comment [Automat ed message] code = 370) The system [employer] generated this result transmitted ref erence range: <=5.90. The reference range was not used to int erpret this result as normal/abnormal . RECOMMENDED COUMADIN/WARFARIN INR THERAPY RANGESSTANDARD DOSE: 2.0 - 3.0 Includes: PROPHYLAXIS for venous thrombosis, systemic embolization; TREATMENT for venous thrombosis and/or pulmonary embolus.HIGH RISK: Target INR is 2.5-3.5 for patients with mechanical heart valves.CBC W/PLT COUNT & AUTO [id number] 03:48:24 Test Item Value Reference Range Interpretation [...] (BEAKER) (test code = 2801) BASIC METABOLIC [id number] 05:46:16 Test Item Value Reference Range Interpretation [...] 1092) DATA TO CALCULA TE ESTIMATED GFR. Bit Sharpener Operator ID - BELLA [id number] 05:44:21 Test Item Value Reference Range Interpretation Comments MAGNESIUM (BEAKER) (test code = 1.9 mg/dL 1.6-2.6 627) Bit Sharpener Operator ID - BELLA GHEPATIC FUNCTION [id number] 05:44:21 Test Item Value Reference Range Interpretation [...] (test code = 16 U/L 6-55 347) Bit Sharpener Operator ID - BELLA GPROTHROMBIN TIME/[id number] 05:30:37 Test Item Value Reference Range Interpretation Comments PROTIME (BEAKER) 17.2 seconds 11.9-14.2 H (test code = 759) INR (BEAKER) (test 1.43 See_Comment [Automat ed message] code = 370) The system [employer] generated this result transmitted ref erence range: <=5.90. The reference range was not used to int erpret this result as normal/abnormal . RECOMMENDED COUMADIN/WARFARIN INR THERAPY RANGESSTANDARD DOSE: 2.0 - 3.0 Includes: PROPHYLAXIS for venous thrombosis, systemic embolization; TREATMENT for venous thrombosis and/or pulmonary embolus.HIGH RISK: Target INR is 2.5-3.5 for patients with mechanical heart valves.CBC W/PLT COUNT & AUTO [id number] 05:20:54 Test Item Value Reference Range Interpretation [...] PERCENT (BEAKER) (test code = 2801) U/S, [id number] 18:04:00ERIC HURT MDLabs to be ordered:->Body Fluid Culture (w/Gram Stain, C\\T\\S)Labs to beordered:- >Glucose+LDH+ProteinLabs to be ordered:->Cell CountReason for exam:- >ABNORMAL [facility]NA[facility] : 1955 Sex: MFINAL REPORT Ultrasound guided paracentesis Clinical History: Ascites. Sedation:None. Forester Silviculture: Allison Willoughby PA-C Supervising Physician: Jhon Mora MD Animal Damage Control Agent: None. Estimated Blood Loss: < 1 mL. [...] anesthesia was achieved with lidocaine, a 5 [place] one-step catheter was advanced into the peritoneal cavity under ultrasound guidance. After completion of drainage, the catheter was removed. There was no evidence of complication. Impression:Successful ultrasound guided paracentesis. Signed: Jhon Moraeport Verified Date/Time: 02/10/2022 18:04:01 Reading Location: [address] Ultrasound Reading Room Lactate dehydrogenase (LDH), body [id number] 15:49:23 Test Item Value Reference Range Interpretation Comments LDH, Fluid (test 78 U/L code = 23979-1) ALLYN (test code = Absence of reference ALLYN) range indicates that normals have not been defined.Assay performance has not been validated for this type of specimen. Bit Sharpener Operator ID - [id number] [facility] HospitalLact[facility] (LDH), body [id number] 15:49:23 Test Item Value Reference Range Interpretation Comments LDH, Fluid (test 78 U/L code = 44645-6) ALLYN (test code = Absence of reference ALLYN) range indicates that normals have not been defined.Assay performance has not been validated for this type of specimen. Bit Sharpener Operator ID - [id number] [facility] CenterLact[facility] (LDH), body [id number] 15:49:23 Test Item Value Reference Range Interpretation Comments LDH, Fluid (test 78 U/L code = 90628-1) ALLYN (test code = Absence of reference ALLYN) range indicates that normals have not been defined.Assay performance has not been validated for this type of specimen. Bit Sharpener Operator ID - [id number] [facility] HospitalLact[facility] dehydrogenase (LDH), body [id number] 15:49:23 Test Item Value Reference Range Interpretation Comments LDH, Fluid (test 78 U/L code = 34832-5) ALLYN (test code = Absence of reference ALLYN) range indicates that normals have not been defined.Assay performance has not been validated for this type of specimen. Bit Sharpener Operator ID - [id number] [facility] HospitalLACTATE DEHYDROGENASE (LDH), BODY [id number] 15:49:23 Test Item Value Reference Range Interpretation Comments LACTATE DEHYDROGENASE FLUID (BEAKER) 78 U/L (test code = 634) Absence of reference range indicates that normals have not been defined.Assay performance has not been validated for this type of specimen.Bit Sharpener Operator ID - [id number], body [id number] 15:47:39 Test Item Value Reference Range Interpretation Comments Protein, Fluid (test 1.7 g/dL code = 2881-1) ALLYN (test code = Absence of reference ALLYN) range indicates that normals have not been defined.Assay performance has not been validated for this type of specimen. Bit Sharpener Operator ID - [id number] [facility] HospitalProtein, body [id number] 15:47:39 Test Item Value Reference Range Interpretation Comments Protein, Fluid (test 1.7 g/dL code = 2881-1) ALLYN (test code = Absence of reference ALLYN) range indicates that normals have not been defined.Assay performance has not been validated for this type of specimen. Bit Sharpener Operator ID - [id number] [facility] HospitalProtein, body [id number] 15:47:39 Test Item Value Reference Range Interpretation Comments Protein, Fluid (test 1.7 g/dL code = 2881-1) ALLYN (test code = Absence of reference ALLYN) range indicates that normals have not been defined.Assay performance has not been validated for this type of specimen. Bit Sharpener Operator ID - [id number] [facility] HospitalProtein, body [id number] 15:47:39 Test Item Value Reference Range Interpretation Comments Protein, Fluid (test 1.7 g/dL code = 2881-1) ALLYN (test code = Absence of reference ALLYN) range indicates that normals have not been defined.Assay performance has not been validated for this type of specimen. Bit Sharpener Operator ID - [id number] [facility] HospitalPROTEIN, BODY [id number] 15:47:39 Test Item Value Reference Range Interpretation Comments PROTEIN FLUID (BEAKER) (test code = 1.7 g/dL 579) Absence of reference range indicates that normals have not been defined.Assay performance has not been validated for this type of specimen.Bit Sharpener Operator ID - [id number], body [id number] 15:45:42 Test Item Value Reference Range Interpretation Comments Glucose, Body Fluid 120 mg/dL (test code = 2344-0) ALLYN (test code = Absence of reference ALLYN) range indicates that normals have not been defined.Assay performance has not been validated for this type of specimen. Bit Sharpener Operator ID - [id number] [facility] HospitalGlucose, body [id number] 15:45:42 Test Item Value Reference Range Interpretation Comments Glucose, Body Fluid 120 mg/dL (test code = 2344-0) ALLYN (test code = Absence of reference ALLYN) range indicates that normals have not been defined.Assay performance has not been validated for this type of specimen. Bit Sharpener Operator ID - [id number] [facility] HospitalGlucose, body [id number] 15:45:42 Test Item Value Reference Range Interpretation Comments Glucose, Body Fluid 120 mg/dL (test code = 2344-0) ALLYN (test code = Absence of reference ALLYN) range indicates that normals have not been defined.Assay performance has not been validated for this type of specimen. Bit Sharpener Operator ID - [id number] [facility] HospitalGlucose, body [id number] 15:45:42 Test Item Value Reference Range Interpretation Comments Glucose, Body Fluid 120 mg/dL (test code = 2344-0) ALLYN (test code = Absence of reference ALLYN) range indicates that normals have not been defined.Assay performance has not been validated for this type of specimen. Bit Sharpener Operator ID - [id number] [facility] HospitalGLUCOSE, BODY [id number] 15:45:42 Test Item Value Reference Range Interpretation Comments GLUCOSE, BODY FLUID (BEAKER) (test 120 mg/dL code = 1528) Absence of reference range indicates that normals have not been defined.Assay performance has not been validated for this type of specimen.Bit Sharpener Operator ID - [id number] fluid cell count with [id number] 14:03:37 Test Item Value Reference Range Interpretation Comments Appearance (test code = Clear Clear 9335-1) Color (test code = Yellow Colorless, Straw A 6824-7) RBCs (test code = 68 See_Comment H [Automate d message] 79491-1) The system [employer] generated this result transmit britta reference range : <=1 /cu mm. The reference range was not used to interpret this result as normal/abnormal . Adjusted WBC Count 16 See_Comment H [Automat ed message] (test code = 40828-9) The sy stem which generated this result transmit britta reference range : <=5 /cu mm. The reference range was not used to interpret this result as normal/abnormal . Lining Cells (test code 0 See_Comment [Au tomated message] = 85937-9) The system [employer] generated this result transmit britta reference range : <=1 /cu mm. The reference range was not used to interpret this result as normal/abnormal . % Segs (test code = 13 % 20933-8) % Lymphs (test code = 13 % 47993-7) % Monos (test code = 74 % 47075-4) % Eos (test code = 0 % 49787-0) % Baso (test code = 0 % 64299-7) Container Body Fluid EDTA Tube (test code = 2873) Lab Interpretation Abnormal (test code = 30344-9) [facility] HospitalBody fluid cell count with uvbpgwddbiuq8097-54-88 14:03:37 Test Item Value Reference Range Interpretation Comments Appearance (test code = Clear Clear 9335-1) Color (test code = Yellow Colorless, Straw A 6824-7) RBCs (test code = 68 See_Comment H [Automate d message] 94772-8) The system [employer] generated this result transmit britta reference range : <=1 /cu mm. The reference range was not used to interpret this result as normal/abnormal . Adjusted WBC Count 16 See_Comment H [Automat ed message] (test code = 85639-8) The sy stem which generated this result transmit britta reference range : <=5 /cu mm. The reference range was not used to interpret this result as normal/abnormal . Lining Cells (test code 0 See_Comment [Au tomated message] = 72880-0) The system [employer] generated this result transmit britta reference range : <=1 /cu mm. The reference range was not used to interpret this result as normal/abnormal . % Segs (test code = 13 % 12089-9) % Lymphs (test code = 13 % 51425-6) % Monos (test code = 74 % 77556-6) % Eos (test code = 0 % 21690-8) % Baso (test code = 0 % 67814-8) Container Body Fluid EDTA Tube (test code = 2873) Lab Interpretation Abnormal (test code = 82486-7) [facility] HospitalBody fluid cell count with vwfwngtwewrd8598-18-31 14:03:37 Test Item Value Reference Range Interpretation Comments Appearance (test code = Clear Clear 9335-1) Color (test code = Yellow Colorless, Straw A 6824-7) RBCs (test code = 68 See_Comment H [Automate d message] 15314-0) The system [employer] generated this result transmit britta reference range : <=1 /cu mm. The reference range was not used to interpret this result as normal/abnormal . Adjusted WBC Count 16 See_Comment H [Automat ed message] (test code = 73486-6) The sy stem which generated this result transmit britta reference range : <=5 /cu mm. The reference range was not used to interpret this result as normal/abnormal . Lining Cells (test code 0 See_Comment [Au tomated message] = 36592-1) The system [employer] generated this result transmit britta reference range : <=1 /cu mm. The reference range was not used to interpret this result as normal/abnormal . % Segs (test code = 13 % 93529-7) % Lymphs (test code = 13 % 72557-8) % Monos (test code = 74 % 61438-9) % Eos (test code = 0 % 05824-8) % Baso (test code = 0 % 31277-7) Container Body Fluid EDTA Tube (test code = 2873) Lab Interpretation Abnormal (test code = 38342-0) [facility] HospitalBody fluid cell count with mjpzyfjqnbdg1417-91-20 14:03:37 Test Item Value Reference Range Interpretation Comments Appearance (test code = Clear Clear 9335-1) Color (test code = Yellow Colorless, Straw A 6824-7) RBCs (test code = 68 See_Comment H [Automate d message] 77878-1) The system [employer] generated this result transmit britta reference range : <=1 /cu mm. The reference range was not used to interpret this result as normal/abnormal . Adjusted WBC Count 16 See_Comment H [Automat ed message] (test code = 92876-6) The sy stem which generated this result transmit britta reference range : <=5 /cu mm. The reference range was not used to interpret this result as normal/abnormal . Adjusted lining 0 See_Comment [Automated message] cells/Others (test code The system which = 54111-7) generated this result transmit britta reference range : <=1 /cu mm. The reference range was not used to interpret this result as normal/abnormal . % Segs (test code = 13 % 68273-7) % Lymphs (test code = 13 % 80105-5) % Monos (test code = 74 % 93988-9) % Eos (test code = 0 % 34243-5) % Baso (test code = 0 % 62665-6) Container Body Fluid EDTA Tube (test code = 2873) Lab Interpretation Abnormal (test code = 96848-8) [facility] HospitalBODY FLUID CELL COUNT WITH [id number] 14:03:37 Test Item Value Reference Range Interpretation [...] (test code = The sy stem which 1691) generated this result transmitted ref erence range: [...] (test code = 2873) OSKAR TITER AND [id number] 10:13:44 Test Item Value Reference Range Interpretation [...] UA (test Clear code = 5767-9) Specific [place], 1.018 1.001-1.035 UA (test code = 5811-5) pH, UA (test code 5.0 5.0-8.0 = 5803-2) Protein, UA (test Negative Negative code = 81964-4) Glucose, UA (test Negative Negative code = 365) Ketones, UA (test Negative Negative code = 2514-8) Bilirubin, UA Negative Negative (test code = 93170-6) Blood, UA (test Negative Negative code = 79634-5) Nitrite, UA (test Negative Negative code = 5802-4) Leukocytes, UA Negative Negative (test code = 5799-2) Urobilinogen, UA 0.2 mg/dL 0.2-1.0 (test code = 04999-2) RBC, UA (test 1 See_Comment [Automated me ssage] code = 07114-4) The system w [facility] generated this result transmit britta reference range : /HPF. The refer ence range was not u sed to interpret th is result as normal/abnormal . WBC, UA (test 1 See_Comment [Automated me ssage] code = 5821-4) The system [facility] generated this result transmit britta reference range : /HPF. The refer ence range was not u sed to interpret th is result as normal/abnormal . Bacteria, UA None Seen (test code = 77499-3) Squam Epithel, UA <1 See_Comment [Automate d message] (test code = The system [facility] [place] [address]-3) generated this result transmit britta reference range : /HPF. The refer ence range was not u sed to interpret th is result as normal/abnormal . Crystals, Urine None Seen (test code = 57063-0) Specimen Source (test code = 2795) ALLYN (test code = Bit Sharpener Operator ID - ALLYN) [auto]Bit Sharpener Operator ID - tech [facility] HospitalUrinalysis w/Microscopic + Reflex to Culture 2022-02-10 09:31:30 Test Item Value Reference Range Interpretation Comments Color, UA (test Yellow code = 5778-6) Clarity, UA (test Clear code = 5767-9) Specific [place], 1.018 1.001-1.035 UA (test code = 5811-5) pH, UA (test code 5.0 5.0-8.0 = 5803-2) Protein, UA (test Negative Negative code = 45747-7) Glucose, UA (test Negative Negative code = 365) Ketones, UA (test Negative Negative code = 2514-8) Bilirubin, UA Negative Negative (test code = 15350-4) Blood, UA (test Negative Negative code = 71304-4) Nitrite, UA (test Negative Negative code = 5802-4) Leukocytes, UA Negative Negative (test code = 5799-2) Urobilinogen, UA 0.2 mg/dL 0.2-1.0 (test code = 29351-7) RBC, UA (test 1 See_Comment [Automated me ssage] code = 00901-7) The system [facility] generated this result transmit britta reference range : /HPF. The refer ence range was not u sed to interpret th is result as normal/abnormal . WBC, UA (test 1 See_Comment [Automated me ssage] code = 5821-4) The system [facility] generated this result transmit britta reference range : /HPF. The refer ence range was not u sed to interpret th is result as normal/abnormal . Bacteria, UA None Seen (test code = 02679-0) Squam Epithel, UA <1 See_Comment [Automate d message] (test code = The system [facility] 30274-1) generated this result transmit britta reference range : /HPF. The refer ence range was not u sed to interpret th is result as normal/abnormal . Crystals, Urine None Seen (test code = 57971-9) Specimen Source (test code = 2795) ALLYN (test code = Bit Sharpener Operator ID - ALLYN) [auto]Bit Sharpener Operator ID - tech [facility] HospitalUrinalysis w/Microscopic + Reflex to Culture 2022-02-10 09:31:30 Test Item Value Reference Range Interpretation Comments Color, UA (test Yellow code = 5778-6) Clarity, UA (test Clear code = 5767-9) Specific [place], 1.018 1.001-1.035 UA (test code = 5811-5) pH, UA (test code 5.0 5.0-8.0 = 5803-2) Protein, UA (test Negative Negative code = 42108-7) Glucose, UA (test Negative Negative code = 365) Ketones, UA (test Negative Negative code = 2514-8) Bilirubin, UA Negative Negative (test code = 82977-6) Blood, UA (test Negative Negative code = 55363-8) Nitrite, UA (test Negative Negative code = 5802-4) Leukocytes, UA Negative Negative (test code = 5799-2) Urobilinogen, UA 0.2 mg/dL 0.2-1.0 (test code = 81305-3) RBC, UA (test 1 See_Comment [Automated me ssage] code = 63150-3) The system [facility] generated this result transmit britta reference range : /HPF. The refer ence range was not u sed to interpret th is result as normal/abnormal . WBC, UA (test 1 See_Comment [Automated me ssage] code = 5821-4) The system [facility] generated this result transmit britta reference range : /HPF. The refer ence range was not u sed to interpret th is result as normal/abnormal . Bacteria, UA None Seen (test code = 07943-7) Squam Epithel, UA <1 See_Comment [Automate d message] (test code = The system [facility] [employer] 21913-3) generated this result transmit britta reference range : /HPF. The refer ence range was not u sed to interpret th is result as normal/abnormal . Crystals, Urine None Seen (test code = 89003-1) Specimen Source (test code = 2795) ALLYN (test code = Bit Sharpener Operator ID - ALLYN) [auto]Bit Sharpener Operator ID - tech [facility] Reflex to Culture 2022-02-10 09:31:30 Test Item Value Reference Range Interpretation Comments Color, UA (test Yellow code = 5778-6) Clarity, UA (test Clear code = 5767-9) Specific [place], 1.018 1.001-1.035 UA (test code = 5811-5) pH, UA (test code 5.0 5.0-8.0 = 5803-2) Protein, UA (test Negative Negative code = 98279-2) Glucose, UA (test Negative Negative code = 365) Ketones, UA (test Negative Negative code = 2514-8) Bilirubin, UA Negative Negative (test code = 17857-6) Blood, UA (test Negative Negative code = 01991-7) Nitrite, UA (test Negative Negative code = 5802-4) Leukocytes, UA Negative Negative (test code = 5799-2) Urobilinogen, UA 0.2 mg/dL 0.2-1.0 (test code = 59632-9) RBC, UA (test 1 See_Comment [Automated me ssage] code = 43222-2) The system [facility] generated this result transmit britta reference range : /HPF. The refer ence range was not u sed to interpret th is result as normal/abnormal . WBC, UA (test 1 See_Comment [Automated me ssage] code = 5821-4) The system [facility] generated this result transmit britta reference range : /HPF. The refer ence range was not u sed to interpret th is result as normal/abnormal . Bacteria, UA None Seen (test code = 65767-8) Squam Epithel, UA See_Comment [Automate d message] (test code = The system [facility] [employer] 69300-4) generated this result transmit britta reference range : /HPF. The refer ence range was not u sed to interpret th is result as normal/abnormal . Crystals, Urine None Seen (test code = 70284-9) Specimen Source (test code = 2795) ALLYN (test code = Bit Sharpener Operator ID - ALLYN) [auto]Bit Sharpener Operator ID - tech [facility] HospitalURINALYSIS W/ REFLEX URINE [id number] 09:31:30 Test Item Value Reference Range Interpretation [...] = 1521) SOURCE(BEAKER) (test code = 2795) Bit Sharpener Operator ID - [auto]Bit Sharpener Operator ID - techRAD, ABDOMEN/KUB, 1 VIEW [id number] 04:58:00SIDDERIC MCCARTY MDReason for exam:->Enteric tube placement verificationNAPA STATE [facility]ITALName: [facility] : 1955 Sex: MFINAL REPORT EXAM/TECHNIQUE: RAD, ABDOMEN/KUB, 1 VIEW AP INDICATION: Enteric tube COMPARISON: None. FINDINGS: Gastric tube and sidehole terminate in the expected location of the stomach. Small bowel dilatation. Impression: Gastric tube and sidehole terminate in the expected location of the stomach. Signed: Mc Jones MDReport Verified Date/Time: 02/10/2022 04:58:13 CT, ABDOMEN 2022-02-09 21:06:00ERIC HURT MDUnlisted Reason for Exam - Click Yes and Enter Reason Below->NoIs this for enterography?->NoWill this procedure require oral contrast?->No [facility] : 1955 Sex: MFINAL [...] Jones MDReport Verified Date/Time: 02/09/2022 21:06:52 SARS-COV2/RT-PCR ([facility])2022-02-09 20:27:47 Test Item Value Reference Range Interpretation Comments SARS-COV2/RT-PCR Negative Negative The SARS-Co V-2 target (test code = nucleic acids a re not 3069002) detected in thi s specimen. Negative result [...] revoked sooner. Fact Sheet for Healthcare Providers: https://www.[employer] m/Documents/Xpert%20Xpress%20SARS%20CoV-2/Fact%20Sheets/302-3802%83SQRQ-PZG-9%20 HEALTHCARE%20PROVIDERS%20FACT%20SHEET.pdf Fact Sheet for Healthcare Patients: https://www.[employer]/Documents/Xpert%20Xp ress%20SARS%20CoV-2/Fact%20Sheets/302-3801%04RTAW-FOR-0%20PATIENT%20FACT%20SHEET .pdfCOMPREHENSIVE METABOLIC [id number] 20:07:42 Test Item Value Reference Range Interpretation [...] 1092) DATA TO CALCULA TE ESTIMATED GFR. Bit Sharpener Operator ID - RIGOBERTO [id number] 19:59:54 Test Item Value Reference Range Interpretation Comments LIPASE (BEAKER) (test code = 749) 45 U/L 8-78 Bit Sharpener Operator ID - RIGOBERTO LPT/[id number] 19:40:32 Test Item Value Reference Range Interpretation [...] for patients with mechanical heart valves.LACTIC ACID, [id number] 19:39:50 Test Item Value Reference Range Interpretation Comments LACTATE BLOOD VENOUS 1.81 mmol/L 0.50-2.20 Specime n slightly (2) (BEAKER) (test hemolyzed code = 2872) Bit Sharpener Operator ID Portillo FRANKLIN LCBC W/PLT COUNT & AUTO [id number] 19:28:09 Test Item Value Reference Range Interpretation [...] 0-1 PERCENT (BEAKER) (test code = 2801) [id number] 19:22:34 Test Item Value Reference Range Interpretation Comments AMMONIA (BEAKER) 26 mol/L 18-72 Specimen mo derately (test code = 348) hemolyzed Bit Sharpener Operator ID - PIAYA LHEPATITIS C [id number] 15:36:09 Test Item Value Reference Range Interpretation Comments HEPATITIS C ANTIBODY (BEAKER) (test Reactive Nonreactive A code = 367) Bit Sharpener Operator ID - ADMINHEPATITIS A ANTIBODY, [id number] 15:22:17 Test Item Value Reference Range Interpretation Comments HEPATITIS A IGG ANTIBODY (BEAKER) Nonreactive Nonreactive (test code = 2797) Bit Sharpener Operator ID - [id number] 15:05:07 Test Item Value Reference Range Interpretation Comments PROCALCITONIN (BEAKER) (test code 0.15 ng/mL <0.05 H = 3036) SEPSIS RISK (ng/mL)Low: 0.05-0.50Intermediate: 0.51-2.00High: >=2.01 COMPREHENSIVE METABOLIC [id number] 14:57:26 Test Item Value Reference Range Interpretation [...] 1092) DATA TO CALCULA TE ESTIMATED GFR. Bit Sharpener Operator ID - RGSYRJWEUI-1-[id number] 14:48:46 Test Item Value Reference Range Interpretation Comments ALPHA-1 ANTITRYPSIN (BEAKER) 205.20 mg/dL 90.00-200.00 H (test code = 502) Bit Sharpener Operator ID - ADMINBILIRUBIN, [id number] 14:48:45 Test Item Value Reference Range Interpretation Comments BILIRUBIN DIRECT (BEAKER) (test 0.6 mg/dL 0.1-0.5 H code = 706) Bit Sharpener Operator ID - ADMINPROTHROMBIN TIME/[id number] 14:46:41 Test Item Value Reference Range Interpretation Comments PROTIME (BEAKER) 15.7 seconds 11.9-14.2 H (test code = 759) INR (BEAKER) (test 1.27 See_Comment [Automat ed message] code = 370) The system [employer] generated this result transmitted ref erence range: <=5.90. The reference range was not used to int erpret this result as normal/abnormal . RECOMMENDED COUMADIN/WARFARIN INR THERAPY RANGESSTANDARD DOSE: 2.0 - 3.0 Includes: PROPHYLAXIS for venous thrombosis, systemic embolization; TREATMENT for venous thrombosis and/or pulmonary embolus.HIGH RISK: Target INR is 2.5-3.5 for patients with mechanical heart valves.LACTIC ACID, [id number] 14:36:58 Test Item Value Reference Range Interpretation Comments LACTATE BLOOD VENOUS 1.59 mmol/L 0.50-2.20 Specime n slightly (2) (BEAKER) (test hemolyzed code = 2872) Bit Sharpener Operator ID - ADMINCBC W/PLT COUNT & AUTO [id number] 14:24:37 Test Item Value Reference Range Interpretation [...] 0-1 PERCENT (BEAKER) (test code = 2801) [id number] 12:18:00 Test Item Value Reference Range Interpretation Comments GLUBED (test code = GLUBED) 128 mg/dL 70-110 H VANCOMYCIN [id number] 08:39:00 Test Item Value Reference Range Interpretation Comments VANCOMYCIN TROUGH 30.4 mcg/mL 10-20 H Other dise ase (test code = VANCT) associat ed reference ranges: 10 - 15 mcg/mL Cellulit is, urinary tract infection 15 - 20 mcg/mL Bacterem ia, infective endocarditis, osteomyelitis, meningitis, pneumonia, romero re skin/soft tissu e infection, spin al abscess Specimen comments: PRIOR TO AM DOSE OF VANCOMYCINComments to Proofreader: DRAW LEVEL THEN GIVE VANCDOSECBC W/AUTO [id number] 05:02:00 Test Item Value Reference Range Interpretation [...] X10 3uL 0.00-0.01 N NRBC#) BASIC METABOLIC [id number] 05:01:00 Test Item Value Reference Range Interpretation [...] CA) 7.5 mg/dl 8.0-10.5 L COMPREHENSIVE METABOLIC [id number] 06:40:00 Test Item Value Reference Range Interpretation [...] 167 Units/L 50.0-136.0 H code = ALKP) [id number] 06:40:00 Test Item Value Reference Range Interpretation Comments MAGNESIUM (test code = MAG) 2.0 mg/dl 1.8-2.4 N [id number] 06:25:00 Test Item Value Reference Range Interpretation Comments AMMONIA (test code = AMM) 27.0 MCMOL/L 11.0-32.0 N CBC W/AUTO [id number] 06:22:00 Test Item Value Reference Range Interpretation [...] = 0.00 X10 3uL 0.00-0.01 N NRBC#) [id number] 15:02:00 Test Item Value Reference Range Interpretation Comments SURGICAL (test code = SR) R UN DATE: 10/24/21 [facility] - Lab PAGE 1 RUN TIME: 1502 Specimen Inquiry RUN USER: INTERFACE P ATIENT: EDDI JONES LOC: EICU U #: [id number] AGE/SX: 66/M ROOM: [facility] RE10/11/21REG DR: Mary Kidd MD : 57 BED: 1 DIS: STATUS: ADM IN TLOC: SPEC #: [id number] RECD: 10/18/21 STATUS: SOUHal REQ #: [id number] AYDIN: 10/18/21- SUBM DR: Mary Kidd MD ENTERED: 10/18/21 SP TYPE: SURGICAL OTHR DR: No Primary or Family Physician Self Referred Baltazar Henson MD,Ashely Gallegos,Jocelyn Zacarias MD, MDORDERED: GM LEVEL 4, ANATOMIC SPEC COPIES TO: No Primary or Family Physician Self Referred Baltazar Henson MD [address] [place] [address] Ashely Khan MD [address] [place] [address] Matty Gallegos MD [address] [place] [id number] OTHER PHONE [phone] (CELL) Jocelyn Sunshine MD [address] [place] [id number] Mary Kidd MD [address] [place] [address] [email or web address] PROCEDURES: GM LEVEL 4 (10/24/21-150) TISSUES: PLEURA, NOS - RIGHT PLEURA CONTINUED ON NEXT PAGE R UN DATE: 10/24/21 [facility] - Lab PAGE 2 RUN TIME: 1502 Specimen Inquiry RUN USER: INTERFACE S PEC #: [id number] PATIENT: JONESEDDI SCOTT #[id number] (Continued) CLINICAL HISTORY SAME FINAL DIAGNOSIS Right [...] submitted in 2 cassettes. Technical component performed [facility],[address] [place] [address] Unless gross only, the diagnosis is based [...] of this case is performed at the [facility], [address] [place] [address] (CLIA# [id number]). MICROSCOPIC DESCRIPTION A microscopic examination was performed. CLINICAL INFORMATION RIGHT EMPYEMER ------- Signed SIGNATURE ON FILE Bal Michelle Hal 10/24/21 1502 END OF REPORT PROTHROMBIN [id number] 14:54:00 Test Item Value Reference Range Interpretation Comments PROTHROMBIN TIME 16.7 SECONDS 9.9-12.8 H PATIENT (test code = PTP) INTERNATIONAL NORMAL 1.4 0.89-1.14 H THE INR IS TO BE USED RATIO (test code = ONLY FOR MONITORING INR) ORAL ANTICOAGULANTTH ERAPY. THE FOLLOWING A RE SUGGESTED RANGE S FROM [facility] LEGE OF CHEST PHYSICIANS:JEANETTE CATION INR [...] ANTIBODIES 2.5 - 3.5 - US ABDOMEN [id number] 12:41:00 [facility] EDDI JONES Hal : 1955 Sex: M FAX: Mary Valente MD [phone] Nem[place]: St: ADM Name: EDDI JONES [facility] : 1955 Age/S: 66/M [address] [facility] Unit #: [id number] Loc: [address] Phys: [place] [address] Acct: [id number] Dis Date: Status: ADM IN PHONE #: [phone] Exam Date: 10/24/2021 1141 FAX #: [phone] Reason: ascitis EXAMS: CPT CODE: [id number] ABDOMEN [facility] [address] Dictation location: U19. LIMITED ABDOMINAL ULTRASOUND HISTORY: Ascites, evaluate for paracentesis. IMPRESSION: Ultrasoundimages show a small amount of ascites greatest in the left lower quadrant. The ascites appears simple. IMPRESSION: Small amount of ascites, not significant enough for a therapeutic paracentesis. at 1241 Reported and signed by: Ella Fonseca M.D. CC: Mary Kidd MD Technologist: KAITLIN VILLARREAL Trnward Date/Time/By: 10/24/2021 (1241) : By: [email or web address] PAGE 1 Signed Report FAX: Mary Valente MD [phone] Nem[place]: St: ADM -- [facility] 1955 Age[facility]S: 66[facility]M [address] [facility] Unit #: [id number] Loc:E.[address] [place], [place]: [place] [address] Acct: [id number] Dis Date: Status: ADM IN PHONE #: [phone] Exam Date: 10/24/2021 1141 FAX #: [phone] Reason: ascitis EXAMS: CPT CODE: [id number] [place] ABDOMEN LTD [address] (Continued) Orig Print D/T: S: 10/24/2021 (1244) PAGE 2 Signed ReportBASIC METABOLIC [id number] 06:51:00 Test Item Value Reference Range Interpretation [...] CA) 7.3 mg/dl 8.0-10.5 L CBC W/AUTO [id number] 06:29:00 Test Item Value Reference Range Interpretation [...] X10 3uL 0.00-0.01 H NRBC#) CBC W/AUTO [id number] 09:59:00 Test Item Value Reference Range Interpretation [...] code = NRBC#) - XR CHEST 1 [id number] 07:31:00 [facility] EDDI JONES : 1955 Sex: M FAX: Baltazar Sunshine MD [phone] [place]: St: [facility] FAX: Mary Valente MD [phone] Name: EDDI JONES [facility] : 1955 Age/S: 66/M [address] [facility] Unit #: [id number] Loc: E.[address] [place], [place]: [place] [address] Acct: [id number] Dis Date: Status: ADM IN PHONE #: [phone] Exam Date: 10/23/202156 FAX #: [phone] Reason: sob EXAMS: CPT CODE: [id number] XR CHEST 1V 84423 Location Code: C3 CHEST AP HISTORY: Dyspnea COMPARISON: Chest radiograph from prior day FINDINGS: Right subclavian catheter tip is at the distal SVC. The right-sided chest tubes are stable. Small right pleural effusion remains. There is volume loss in the right lung. Mild residual left basilar atelectasis or infiltrate. Cardiomediastinal silhouette is stable and normal. NG tube terminates inthe stomach. Multiple leads and wires superimposed the patient. IMPRESSION: Right-sided chest tubes are stable. Small right pleural effusion remains. Volume loss in the right lung. Mild residual left basilar atelectasis or infiltrate. at 0731 Reported and signed by: Juani Gonzalez MD CC: Baltazar Henson MD; Mary Kidd MD Technologist: MANASA PICKARD PAGE 1 Signed Report FAX: Baltazar Sunshine MD [phone] Nem[place]: St: ADM FAX: Mary Valente MD [phone] Name: EDDI JONES [facility] : 1955 Age/S: 66/M [facility] Unit #: [id number] Loc: [address] Phys: Baltazar Henson [place] [address]Kumj: [id number] Dis Date: Status: ADM IN PHONE #: [phone] Exam Date: 10/23/2021 0556 FAX #: [phone] Reason: sob EXAMS: CPT CODE: [id number] XR CHEST 1 V 63418 (Continued) Trnscrd Date/Time/By: 10/23/2021 (0731) : By: [...] mg/dl 8.0-10.5 L - XR CHEST 1 [id number] 07:53:00 [facility] ARELY EDDI Hong : 1955 Sex: M FAX: Baltazar Sunshine MD [phone] [place]: St: [facility] FAX: Mary Valente MD [phone] Name: EDDI JONES [facility] : 1955 Age/S: 66/M [address] [facility] Unit #: [id number] Loc: E.[address] [place], [place]: [place] [address] Acct: [id number] Dis Date: Status: ADM IN PHONE #: [phone] Exam Date: 10/22/202105 FAX #: [phone] Reason: sob EXAMS: CPT CODE: [id number] XR CHEST 1V 95282 Location Code: C3 CHEST AP HISTORY: Dyspnea [...] (0753) : By: [email or web address] PAGE 1 Signed ReportFAX: Baltazar Sunshine MD [phone] Nem[place]: St: ADM FAX: Mary Valente MD [phone] ------- Name: JONESEDDI Hal [facility] : 1955 Age/S: 66/M [address] Unit #: [id number] Loc: E.IC[address] [place], [place]: [place] [address] Acct: [id number] Dis Date: Status: ADM IN PHONE #: [phone] Exam Date: 10/22/2021704 FAX #: [phone] Reason: sob EXAMS: CPT CODE: [id number] XR CHEST 1 V 98425 (Continued) Orig Print D/T: S: 10/22/2021 (0757) PAGE 2 Signed [id number] 06:21:00 Test Item Value Reference Range Interpretation Comments AMMONIA (test code = AMM) 35.4 MCMOL/L 11.0-32.0 HH BASIC METABOLIC [id number] 06:14:00 Test Item Value Reference Range Interpretation [...] CA) 7.6 mg/dl 8.0-10.5 L CBC W/AUTO [id number] 12:53:00 Test Item Value Reference Range Interpretation [...] X10 3uL 0.00-0.01 N code = NRBC#) [id number] 12:23:00 Test Item Value Reference Range Interpretation Comments AMMONIA (test code = AMM) 51.1 MCMOL/L 11.0-32.0 HH - XR CHEST 1 [id number] 06:41:00 [facility] EDDI JONES : 1955 Sex: M FAX: Baltazar Sunshine MD [phone] Nem[place]: St: [facility] FAX: Mary Valente MD [phone] Name: ARELYEDDI Hal [facility] : 1955 Age/S: 66/M [address] [facility] Unit #: [id number] Loc: E.[address] [place], [place]: [place] [address] Acct: [id number] Dis Date: Status: ADM IN PHONE #: [phone] Exam Date: 10/21/2021524 FAX #: [phone] Reason: sob EXAMS: CPT CODE: [id number] XR CHEST 1 V 92511 EXAMINATION: - XR CHEST 1 V HISTORY: [...] apparatus is unchanged. IMPRESSION: Interval removal of e ndotracheal tube, with now near complete opacification of the right hemithorax as above at 0641 Reported and signed by: Mihaela Walker M.D CC: Baltazar Henson MD; Mary Kidd MD Technologist: ANALIA MILLER Trnscrd Date/Time/By: 10/21/2021 (0641) : By: [email or web address] PAGE 1 Signed Report FAX: Baltazar Sunshine MD [phone] [place]: St: [facility] FAX: Mary Valente MD [phone] Name: EDDI JONES [facility] : 1955 Age/S: 66/M [address] [facility] Unit #: [id number] Loc: [address] Phys: [place] [address] Acct: [id number] Dis Date: Status: ADM IN PHONE #: [phone] Exam Date: 10/21/2021524 FAX #: [phone] Reason: sob EXAMS: CPT CODE: [id number] XR CHEST 1 V 56068 (Continued) Orig Print D/T: S: 10/22/19 (0602) PAGE 2 Signed ReportBASIC METABOLIC [id number] 06:35:00 Test Item Value Reference Range Interpretation [...] CA) 7.2 mg/dl 8.0-10.5 L ARTERIAL BLOOD [id number] 16:25:00 Test Item Value Reference Range Interpretation [...] = METHGB) <2.0POTENTIALLY TOXIC >20.0 ARTERIAL BLOOD [id number] 16:23:00 Test Item Value Reference Range Interpretation [...] = METHGB) <2.0POTENTIALLY TOXIC >20.0 CBC W/AUTO [id number] 15:12:00 Test Item Value Reference Range Interpretation [...] 3uL 0.00-0.01 N code = NRBC#) VANCOMYCIN [id number] 08:13:00 Test Item Value Reference Range Interpretation Comments VANCOMYCIN TROUGH 14.0 mcg/mL 10-20 N Other dise ase (test code = VANCT) associat ed reference ranges: 10 - 15 mcg/mL Cellulit is, urinary tract infection 15 - 20 mcg/mL Bacterem ia, infective endocarditis, osteomyelitis, meningitis, pneumonia, ormero re skin/soft tissu e infection, spin al abscess Specimen comments: DRAW PRIOR TO AM VANCOMYCIN DOSEComments to Proofreader: DRAW PRIOR TO AM VANCOMYCIN DOSE- XR CHEST 1 [id number] 07:15:00 [facility] EDDI JONES : 1955 Sex: M FAX: Baltazar Sunshine MD [phone] [place]: St: ADM FAX: Mary Valente MD [phone] Name: ARELYEDDI Hal [facility] : 1955 Age/S: 66/M [address] [facility] Unit #: [id number] Loc: [address] Phys: [place] [address] Acct: [id number] Dis Date: Status: ADM IN PHONE #: [phone] Exam Date: 10/20/202146 FAX #: [phone] Reason: sob EXAMS: CPT CODE: [id number] XR CHEST 1V 60897 EXAMINATION: - XR CHEST 1 V HISTORY: [...] MD; Mary Kidd MD Technologist: KEELY ADAME [facility] Date/Time/By: 10/20/2021 (0715) : By: [email or web address] PAGE 1 Signed Report FAX: Baltazar Sunshine MD [phone] [place]: St: ADM FAX: Mary Valente MD [phone] Name: EDDI JONES [facility] : 1955 Age/S:66/M [address] [facility] Unit #: [id number] Loc: [address] Phys: Baltazar Henson [facility] [address] Acct: [id number] Dis Date: Status: ADM IN PHONE #: [phone] Exam Date: 10/20/202146 FAX #: [phone] Reason: sob EXAMS: CPT CODE: [id number] XR CHEST 1 V 36090 (Continued) Orig Print D/T: S: 10/20/2021 (0718) PAGE 2 Signed [id number] 06:12:00 Test Item Value Reference Range Interpretation Comments MAGNESIUM (test code = MAG) 2.1 mg/dl 1.8-2.4 N BASIC METABOLIC [id number] 06:11:00 Test Item Value Reference Range Interpretation [...] CA) 6.8 mg/dl 8.0-10.5 L ARTERIAL BLOOD [id number] 14:30:00 Test Item Value Reference Range Interpretation [...] METHGB) <2.0POTENTIALLY TOXIC >20.0 HIV 12 AB [id number] 06:53:00 Test Item Value Reference Range Interpretation Comments AB HIV 1 2 (test code = [id number]) NON REACTIVE NONREACTIVE AG HIV1 P24 (test code = NEGATIVE NEGATIVE [id number]) - XR CHEST 1 [id number] 06:49:00 [facility] EDDI JONES : 1955 Sex: M FAX: Baltazar Sunshine MD [phone] [place]: St: [facility] FAX: Mary Valente MD [phone] Name: ARELYEDDI Hal [facility] : 1955 Age/S: 66/M [address] [facility] Unit #: [id number] Loc: E.[address] [place], [place]: [place] [address] Acct: [id number] Dis Date: Status: ADM IN PHONE #: [phone] Exam Date: 10/19/2021628 FAX #: [phone] Reason: sob EXAMS: CPT CODE: [id number] XR CHEST 1 V 59594 EXAMINATION: - XR CHEST 1 V HISTORY: Shortness of breath COMPARISON: Chest x-ray performed the previous day LOCATION CODE: C3 FINDINGS: Single frontal view of the chest is submitted for evaluation. Life support apparatus, a right pleural effusion containing a small amount of air and prominent interstitial opacities in the right lung appear relatively stable. Linear changes in the left lung base are more pronounced on today's examination which may reflect developing atelectasis.. No new abnormalities are identified. IMPRESSION: More pronounced linear changes in the left lung base, likely at electasis No other significant change at 0649 Reported and signed by: Mihaela Walker M.D CC: Baltazar Henson MD; Mary Kidd MD Technologist:MARY LOU LAMAS Trnward Date/Time/By: 10/19/2021 (0649) : By: [email or web address] PAGE 1 Signed Report FAX: Baltazar Gerber MD [phone] [place]: St: ADM FAX: Mary Valente MD [phone] Name: EDDI JONES [facility] : 1955 Age/S: 66/M [address] [facility] Unit #: [id number] Loc: [address] Phys: [place] [address] Acct: [id number] Dis Date: Status: ADM IN PHONE #: [phone] Date: 10/19/2021628 FAX #: [phone] Reason: sob EXAMS: CPT CODE: [id number] XR CHEST 1 L30703 (Continued) Orig Print D/T: S: 10/19/2021 (0704) PAGE 2 Signed ReportBASIC METABOLIC [id number] 06:33:00 Test Item Value Reference Range Interpretation [...] CA) 6.9 mg/dl 8.0-10.5 L CBC W/AUTO [id number] 06:10:00 Test Item Value Reference Range Interpretation [...] 0.00 X10 3uL 0.00-0.01 N NRBC#) LACTIC [id number] 02:21:00 Test Item Value Reference Range Interpretation Comments LACTIC ACID (test code = LACT) 1.9 MMOL/L 0.4-2.0 N LACTIC [id number] 00:13:00 Test Item Value Reference Range Interpretation Comments LACTIC ACID (test code = LACT) 2.2 MMOL/L 0.4-2.0 H LACTIC ACID [id number] 22:04:00 Test Item Value Reference Range Interpretation Comments LACTIC ACID REPEAT (test code = 2.5 mmol/L 0.4-2.0 H LACTR) LACTIC [id number] 16:32:00 Test Item Value Reference Range Interpretation Comments LACTIC ACID (test code = LACT) 3.3 MMOL/L 0.4-2.0 H [id number] 16:08:00 Test Item Value Reference Range Interpretation Comments HEMOGLOBIN (test code = HGB) 9.8 gm/dL 13.0-17.0 L ARTERIAL BLOOD [id number] 10:36:00 Test Item Value Reference Range Interpretation [...] <2.0POTENTIALLY TOXIC >20.0 - XR ABDOMEN 1 [id number] 10:30:00 [facility] JONESEDDI SCOTT : 1955 Sex: M FAX: Mary Valente MD [phone] Nem[place]: EM St: ADM FAX: Vic Petersen [phone] ------ Name: EDDI JONES [facility] : 1955 Age/S: 66/M [address] [facility] Unit #: [id number] Loc: [address] Phys: [place] [address] Acct: [id number] Dis Date: Status: ADM IN [facility] NE #: [phone] Exam Date: 10/18/2021 1027 FAX #: [phone] Reason: DIMINISHED BOWEL SOUNDS EXAMS: CPT CODE: [id number] XR ABDOMEN 1 V 22743 Exam: Diminished bowel sounds. Abdomen, single view. AnNG tube is seen in the stomach. Gas pattern with fairly normal gas distribution. Some left abdominalsmall bowel loops with air but normal diameter. Gas in the large bowel appropriately with normal stool. Rangel catheter in the bladder, now. No findings of free air or unusual calcifications. IMPRESSION: 3 or 4 nondistended air-filled small bowel loops in the left lower abdomen could indicate some mildileus effect or enteritis. No obstructive features. NG tube in the stomach. Rangel in the bladder. Location: U 19 at 1030 Reported and signed by: Manuel James MD CC: Mary Kidd MD; Vivien Parada MD Technologist: DOROTHY SANON Trnscrd Date/Time/By: 10/18/2021 (1030) : By: [email or web address] PAGE 1 Signed Report FAX: Mary Cisneros Si, MD [phone] [place]: St: ADM FAX: Vic Petersen [phone] Name: EDDI JONES [facility] : 1955 Age/S: 66/M [address] [facility] Unit #: [id number] Loc: [address] Phys: [place] [address] Acct: [id number] Dis Date: Status: ADM IN PHONE #:[phone] Exam Date: 10/18/2021 1027 FAX #: [phone] Reason: DIMINISHED BOWEL SOUNDS EXAMS: CPT CODE: [id number] XR ABDOMEN 1 V 74604 (Continued) Orig Print D/T: S: 10/18/2021 (1032) PAGE 2 Signed Report- XR CHEST 1 [id number] 08:37:00 [facility] EDDI JONES : 1955 Sex: M FAX: Baltazar Sunshine MD [phone] [place]: St: ADM FAX: Mary Valente MD [phone] Name: EDDI JONES [facility] : 1955 Age/S: 66/M [address] [place] [facility] Unit #: [id number] Loc: [address] Phys: [place] [address] Acct: [id number] Dis Date: Status: ADM IN PHONE #: [phone] Exam Date: 10/18/2021823 FAX #: [phone] Reason: sob EXAMS: CPT CODE: [id number] XR CHEST 1V 68775 EXAMINATION: - XR CHEST 1 V HISTORY: Shortness of breath COMPARISON: Chest x-ray performed the previous day LOCATION CODE: C3 FINDINGS: Single frontal view of the chest is submitted for evaluation. Life support apparatus is unchanged. Right-sided pneumothorax is less apparent on today's study as the pneumothorax cavity appears to have largely filled with fluid compared to the prior exam. Leftlung remains grossly clear, and no new abnormalities are identified. IMPRESSION: Right-sided pneumothorax appears to have become largely fluid-filled since the prior study No other significant change at 0837 Reported and signed by: Mihaela Walker M.D CC: Baltazar Henson MD; Mary Kidd MD Technologist: KEELY ADAME Trnward Date/Time/By: 10/18/2021 (0837) : By: [email or web address] PAGE 1 Signed Report FAX: Baltazar Sunshine MD [phone] [place]: St: [facility] FAX: Mary Valente MD [phone] Name: EDDI JONES [facility] : 1955 Age/S: 66/M [address] [facility] Unit #: [id number] Loc: [address] [place], [place]: [place] [address] Acct: [id number] Dis Date: Status: ADM IN PHONE #: [phone] Exam Date: 10/18/2021823 FAX #: [phone] Reason: sob EXAMS: CPT CODE: [id number] XR CHEST 1 V 17929 (Continued) Orig Print D/T: S: 10/18/2021 (0840) PAGE 2 Signed ReportCBC W/MANUAL [id number] 06:04:00 Test Item Value Reference Range Interpretation [...] PLATELET MORPHOLOGY (test code NORMAL = PLTMORPH) [id number] 05:28:00 Test Item Value Reference Range Interpretation Comments GLUBED (test code = GLUBED) 132 mg/dL 70-110 H COMPREHENSIVE METABOLIC [id number] 05:12:00 Test Item Value Reference Range Interpretation [...] 75 Units/L 50.0-136.0 N code = ALKP) [id number] 05:12:00 Test Item Value Reference Range Interpretation Comments MAGNESIUM (test code = MAG) 1.6 mg/dl 1.8-2.4 L [id number] 23:28:00 Test Item Value Reference Range Interpretation Comments GLUBED (test code = GLUBED) 119 mg/dL 70-110 H - XR CHEST 1 [id number] 17:29:00 [facility] EDDI JONES : 1955 Sex: M FAX: Baltazar Sunshine MD [phone] [place]: St: ADM FAX: Mary Valente MD [phone] Name: EDDI JONES [facility] : 1955 Age/S: 66/M [address] [facility] Unit #: [id number] Loc: E.[address] [place], [place]: [place] [address] Acct: [id number] Dis Date: Status: ADM IN PHONE #: [phone] Exam Date: 10/17/2021 1722 FAX #: [phone] Reason: POST CHEST TUBE INSERTION EXAMS: CPT CODE: [id number] XR CHEST 1 V 16250 CLINICAL HISTORY: POST CHEST TUBE INSERTION. LOCATION: [...] with diffuse mild infiltrates also noted within theright mid and upper lung. No pleural effusions are evident. There is mild subcutaneous emphysema at the lateral right chest. No acute skeletal or soft tissue abnormalities are otherwise identified. IMPRESSION: 1. Tubes and lines appear appropriately positioned as described above. 2. There is a 20% pneumothorax at the lateral right lower chest with chest tube in place. 3. There is stable moderate cons olidation at the right lower lung with mild infiltrates also noted at the right mid and upper lung. at 1729 Reported and signed by:Boyd Klein M.D. CC: Baltazar Henson MD; Mary Kidd MD Technologist: MOLLY ARMSTRONG Trnscrd Date/Time/By: 10/17/2021 (1729) : By: [email or web address] PAGE 1 Signed Report FAX: Baltazar Sunshine MD [phone] [place]: St: ADM FAX: Mary Valente MD [phone] Name: EDDI JONES [facility] : 1955 Age/S: 66/M [address] [facility] Unit #: [id number] Loc: [address] Phys: [place] [address] Acct: [id number] Dis Date: Status: ADM IN PHONE #: [phone] Exam Date: 10/17/20211721FAX #: [phone] Reason: POST CHEST TUBE INSERTION EXAMS: CPT CODE: [id number] XR CHEST 1 V 41349(Continued) Orig Print D/T: S: 10/17/2021 (1732) PAGE 2 Signed ReportCoronavirus 2019 nCoV [id number] 10:08:00 Test Item Value Reference Range Interpretation Comments Coronavirus 2019 Negative NEGATIVE Negative re sults should be nCoV Bedside (test treated a s presumptive and code = ifinconsistent with [id number]) clinical signs and symptoms, or ne cessaryfor patient managem ent, should be tested with an alternativemole cular assay. Negative result s do not preclude VPKS-WdY-3weess tion and should not be u sed as the sole basis forp atient management deci sions. Negative result s should beconsidered in the context of a patient's recent exposures,histo ry, presence of clinical sig ns and symptoms consis tentwith COVID-19. REJECTED/RECEIVE SWAB AFTER ONE HOUR OF COLLECTION/ E.LAB.KKP1 10/17/2130.NOTIFIED [place]..COMPREHENSIVE METABOLIC [id number] 06:24:00 Test Item Value Reference Range Interpretation [...] 102 Units/L 50.0-136.0 N code = ALKP) [id number] 06:24:00 Test Item Value Reference Range Interpretation Comments MAGNESIUM (test code = MAG) 1.5 mg/dl 1.8-2.4 L PROTHROMBIN [id number] 06:09:00 Test Item Value Reference Range Interpretation Comments PROTHROMBIN TIME 18.1 SECONDS 9.9-12.8 H PATIENT (test code = PTP) INTERNATIONAL NORMAL 1.5 0.89-1.14 H THE INR IS TO BE USED RATIO (test code = ONLY FOR MONITORING INR) ORAL ANTICOAGULANTTH ERAPY. THE FOLLOWING A RE SUGGESTED RANGE S FROM [facility] LEGE OF CHEST PHYSICIANS:JEANETTE CATION INR VALUEPROPHY LAXIS OF VENOUS THROM BOSIS (ORTHOPEDIC AIME KESHA) 2.0 - 3.0PROPHY LAXIS OF VENOUS THROM BOSIS (OTHER THAN HIG H-RISK SURGERY) 2.0 - 3.0TREATMENT OF DEEP VEIN THROMBOSIS OR PULMONARY EMBOL ISM 2.0 - 3.0PREVEN TION OF SYSTEMIC EMBOLI SM TISSUE HEART VA LVES 2.0 - 3.0 ACUTE MYOCARDIAL INFA RCTION (TO PREVENT SYS TEMIC EMBOLISM) 2.0 - 3.0 ACUTE MYOCARDIA L INFARCTION (TO PREVENT RECURRENT INFAR CT) 2.5 - 3.0 VALVULAR HEART DISEASE 2.0 - 3 .0 ATRIAL FIBRILAT ION 2.0 - 3.0BILEAF LET MECHANICAL VALV E IN AORTIC POSITION 2.0 - 3.0MECHANICAL PROSTHETIC VALV ES (HIGH RISK) 2.5 - 3.5PRESENCE OF LUPUS ANTICOAGULANT O R ANTIPHOSPHOLIPI D ANTIBODIES 2.5 - 3.5 Specimen comments: [facility] [id number] 06:06:00 Test Item Value Reference Range Interpretation [...] X10 3uL 0.00-0.01 N NRBC#) - CHEST 2 [id number] 10:48:00 [facility] : 1955 Sex: M FAX: Jocelyn Modi MD [phone] [place]: St: ADM FAX: Mary Valente MD [phone] ------- Name: EDDI JONES [facility] : 1955 Age/S: 66/M [address] [facility] Unit #: [id number] Loc: [address] [place], [place]: [place] [address] Acct: [id number] Dis Date: Status: ADM IN PHONE #: [phone] Exam Date: 10/16/2021 1028 FAX #: [phone] Reason: SURGERY THORACOTOMY TOMORROW EXAMS: CPT CODE: [id number] XR CHEST 2 V 05624 Site ID: [id number] INDICATION: Preoperative for thoracotomy COMPARISON: Chest x-ray 4 hours prior IMPRESSION: Loculated dense right basilar effusion/empyema with smooth pleural thickening and partially tethered lung within the right lung base redemonstrated. Left lung is clear. Small bore right basilar chest tube remains in place. at 1048 Reported and signed by: Mihai Alejo M.D. CC: Jocelyn Sunshine MD; Mary Kidd MD Technologist: KEELY ADAME Trnward Date/Time/By: 10/16/2021 (1048) : By: [email or web address] 1 Signed Report FAX: Jocelyn Modi MD [phone] [place]: St: ADM FAX: Mary Valente MD [phone] Name: EDDI JONES [facility] : 1955 Age/S: 66/M [address] [facility] Unit #: [id number] Loc: [address] [place], [place]: [place] [address] Acct: [id number] Dis Date: Status: ADM IN PHONE #: [phone] Exam Date: 10/16/2021 1028 FAX #: [phone] Reason: SURGERY T HORACOTOMY TOMORROW EXAMS: CPT CODE: [id number] XR CHEST 2 V 20324 (Continued) Orig Print D/T: S: 10/16/2021 (1052) PAGE 2 Signed Report- XR CHEST 1 V 2021-10-16 08:16:00 [facility] 1955 Sex: M FAX: Baltazar Sunshine MD [phone] [place]: EM St: ADM FAX: Mary Valente MD [phone] Name: EDDI JOENS [facility] : 1955 Age/S: 66/M [address] [place] [facility] Unit #: [id number] Loc: [address] [place], [place]: [place] [address] Acct: [id number] Dis Date: Status: ADM IN PHONE #: [phone] Exam Date: 10/16/2021612 FAX #: [phone] Reason: sob EXAMS: CPT CODE: [id number] XR CHEST 1 V 75985 EXAM: Portable chest x-ray Dictation location: B2 [...] chest tube is in place. No pneumothorax is seen. Atelectasis or pneumonia at the right lung base is likely. Findings are not significantly changed compared to one day prior. at 0816 Reported and signed by: Rogelio Brice M.D. CC: Baltazar Henson MD; Mary Kidd MD Technologist: Gigamon Trnscrd Date/Time/By: 10/16/2021 (0816) : By: [email or web address].[email or web address] PAGE 1 Signed Report FAX: Baltazar Sunshine MD [phone] [place]: St: [facility] FAX: Mary Valente MD [phone] Name: EDDI JONES [facility] : 1955 Age/S: 66/M [address] [employer] Unit #: [id number] Loc: [address] [place], [place]: [place] [address] Acct: [id number] Dis Date: Status: ADM IN PHONE #: [phone] Exam Date: 10/16/2021612 FAX #: [phone] Reason: sob EXAMS: CPT CODE: [id number] XR CHEST 1 V 60316(Continued) Orig Print D/T: S: 10/16/2021 (08) PAGE 2 Signed [id number] 07:34:00 Test Item Value Reference Range Interpretation Comments GLUBED (test code = GLUBED) 83 mg/dL 70-110 N COMPREHENSIVE METABOLIC [id number] 07:18:00 Test Item Value Reference Range Interpretation [...] 124 Units/L 50.0-136.0 N code = ALKP) [id number] 07:18:00 Test Item Value Reference Range Interpretation Comments MAGNESIUM (test code = MAG) 1.8 mg/dl 1.8-2.4 N [id number] 07:16:00 Test Item Value Reference Range Interpretation Comments AMMONIA (test code = AMM) 11.0 MCMOL/L 11.0-32.0 N CBC W/AUTO [id number] 07:03:00 Test Item Value Reference Range Interpretation [...] X10 3uL 0.00-0.01 N NRBC#) BASIC METABOLIC [id number] 08:15:00 Test Item Value Reference Range Interpretation [...] CA) 7.3 mg/dl 8.0-10.5 L CBC W/AUTO [id number] 07:32:00 Test Item Value Reference Range Interpretation [...] 0.00-0.01 N NRBC#) - XR CHEST 1 [id number] 02:08:00 [facility] : 1955 Sex: M FAX: Baltazar Sunshine MD [phone] [place]: St: [facility] FAX: Mary Valente MD [phone] Name: EDDI JONES [facility] : 1955 Age/S: 66/M [address] [facility] Unit #: [id number] Loc: [address] [place], [place]: [place] [address] Acct: [id number] Dis Date: Status: ADM IN PHONE #: [phone] Exam Date: 10/15/2021 0125 FAX #: [phone] Reason: sob EXAMS: CPT CODE: [id number] XR CHEST 1V 48033 HISTORY: Shortness of breath Location: C3 COMPARISON:10/14/2021 FINDINGS: Right approach central line is again noted. Right-sided pleural effusion is again demonstrated. Right perihilar opacityis present. Left lung remains clear. No pneumothorax. IMPRESSION: 1. Right pleural effusion with right perihilar opacity compatible with edema and/or pneumonia. at 0208 Reported and signed by: Manuel Ramirez M.D. CC: Baltazar Henson MD; Mary Vila MD Technologist: MOLLY ARMSTRONG Trnward Date/Time/By: 10/15/2021 (0208) : By: [email or web address] PAGE 1 Signed Report FAX: Baltazar Sunshine MD [phone] [place]: St: [facility] FAX: Mary Valente MD [phone] Name: ARELYEDDI Hong [facility] : 1955 Age/S: 66/M [address] [facility] Unit #: [id number] Loc: [address] Phys: [place] [address] Acct: [id number] Dis Date: Status: ADM IN PHONE #: [phone] Exam Date: 10/15/2021 012 FAX #: [phone] Reason: sob EXAMS: CPT CODE: [id number] XR CHEST 1 V 31593 (Continued) Orig Print D/T: S: 10/15/2021 (210) PAGE 2 Signed Report- XR CHEST 1 [id number] 15:12:00 [facility] : 1955 Sex: M FAX: Poncho Baldwin MD [phone] [place]: St: [facility] FAX: Mary Valente MD [phone] --------- Name: EDDI JONES [facility] : 1955 Age/S: 66/M [address] [facility] Unit #: [id number] Loc: [address] [place]: [place] [address] Acct: [id number] Dis Date: Status: ADM IN PHONE #: [phone] Exam Date: 10/14/2021 1358 FAX #: [phone] Reason: CENTRAL LINE PLACEMENT EXAMS: CPT CODE: [id number] XR CHEST 1 V 24265 C3 TIME OF STUDY: 10/14/2021 1:48 PM [...] MD Technologist: DOROTHY SANON Trnscrd Date/Time/By: 10/14/2021 (1511) : By: [email or web address] PAGE 1 Signed Report FAX: Poncho Baldwin MD [phone] [place]: St: ADM FAX: Mary Valente MD [phone] Name: EDDI JONES [facility] : 1955 Age/S: 66/M [address] [facility] Unit #: [id number] Loc: [address] Phys: [place] [address] Acct: [id number] Dis Date: Status: ADM IN PHONE #: [phone] Exam Date: 10/14/2021 1358 FAX #: [phone] Reason: CENTRAL LINE PLACEMENT EXAMS: CPT CODE: [id number] XR CHEST 1 V 31202 (Continued) Orig Print D/T: S: 10/14/2021 (1511) PAGE 2 Signed Report- XR CHEST 1 [id number] 08:05:00 [facility] : 1955 Sex: M FAX: Baltazar Sunshine MD [phone] [place]: St: [facility] FAX: Mary Valenet MD [phone] Name: EDDI JONES [facility] : 1955 Age/S: 66/M [address] [facility] Unit #: [id number] Loc: [address] Phys: [place] [address] Acct: [id number] Dis Date: Status: ADM IN PHONE #: [phone] Exam Date: 10/14/2021 0743 FAX #: [phone] Reason: sob EXAMS: CPT CODE: [id number] XR CHEST 1V 05193 EXAM: - XR CHEST 1 V LOCATION: C3 HISTORY: sob COMPARISON: prior day FINDINGS: Single view of the chest. No indwelling lines/tubes. No pneumothorax. Unchanged small right pleural effusion and infrahilar linear opacities. The mediastinal contours are unchanged. IMPRESSION: Unchanged exam. at 0805 Reported and signed by: James Ellsworth M.D. CC: Baltazar Henson MD; Mary Kidd MD Technologist: DOROTHY SANON Trnscrd Date/Time/By: 10/14/2021 (0805) : By: [email or web address] PAGE 1 Signed Report FAX: Baltazar Sunshine MD [phone] [place]: St: [facility] FAX: Mary Valente MD [phone] Name: EDDI JONES [facility] : 1955 Age/S: 66/M [address] [employer] Unit #: [id number] Loc: [address] [place], [place] Phys: Baltazar Henson [place] [address]Dzfu: [id number] Dis Date: Status: ADM IN PHONE #: [phone] Exam Date: 10/14/2021 0743 FAX #:[phone] Reason: sob EXAMS: CPT CODE: [id number] XR CHEST 1 V 17425 (Continued) Orig Print D/T: S: 10/14/2021 (0808) PAGE 2 Signed ReportCBC W/AUTO [id number] 05:38:00 Test Item Value Reference Range Interpretation [...] (test code = DECREASED PLTEST) BASIC METABOLIC [id number] 02:23:00 Test Item Value Reference Range Interpretation [...] CA) 7.9 mg/dl 8.0-10.5 L BASIC METABOLIC [id number] 18:34:00 Test Item Value Reference Range Interpretation [...] = CA) 8.1 mg/dl 8.0-10.5 N PROTHROMBIN [id number] 18:21:00 Test Item Value Reference Range Interpretation Comments PROTHROMBIN TIME 17.2 SECONDS 9.9-12.8 H PATIENT (test code = PTP) INTERNATIONAL NORMAL 1.4 0.89-1.14 H THE INR IS TO BE USED RATIO (test code = ONLY FOR MONITORING INR) ORAL ANTICOAGULANTTH ERAPY. THE FOLLOWING A RE SUGGESTED RANGE S FROM [facility] LEGE OF CHEST PHYSICIANS:JEANETTE CATION INR VALUEPROPHY [...] - 3.0MECHANICAL PROSTHETIC VALV ES (HIGH RISK) 2. 5 - 3.5PRESENCE OF LUPUS ANTICOAGULANT O R ANTIPHOSPHOLIPI D ANTIBODIES 2.5 - 3.5 THROMBOPLASTIN TIME [id number] 18:21:00 Test Item Value Reference Range Interpretation Comments THROMBOPLASTIN TIME 31.20 SECONDS 25.86-36.07 N [facility] PARTIAL (test code = Therape utic Range - PTT) APTT of 55.8-85 .4 secondscorrelat es with plasma heparin concentration o f 0.2-0.4 u/mL Ne w range effective - CBC W/O [id number] 18:15:00 Test Item Value Reference Range Interpretation [...] 9.2 fl 7.4-10.4 N MPV) COMPREHENSIVE METABOLIC [id number] 07:28:00 Test Item Value Reference Range Interpretation [...] 50.0-136.0 H code = ALKP) CBC W/AUTO [id number] 07:14:00 Test Item Value Reference Range Interpretation [...] 3uL 0.00-0.01 N NRBC#) - CHEST 1 [id number] 06:40:00 [facility] : 1955 Sex: M FAX: Baltazar Sunshine MD [phone] [place]: St: [facility] FAX: Mary Valente MD [phone] Name: EDDI JONES [facility] : 1955 Age/S: 66/M [address] [facility] Unit #: [id number] Loc: [address] [place] [address] [place]: [place] [address] Acct: [id number] Dis Date: Status: ADM IN PHONE #: [phone] Exam Date: 10/13/2021 0639 FAX #: [phone] Reason: sob EXAMS: CPT CODE: [id number] XR CHEST 1V 61478 EXAM: - XR CHEST 1 V Location code:C3 HISTORY: sob COMPARISON: 10/12/2021 FINDINGS: Single AP view of the chest is provided. Pigtail thoracostomy tube on the right is unchanged.Pleural-parenchymal opacity about the mid to lower right lung zone is similar. The left lung is clear. There is no pneumothorax. IMPRESSION: 1. No significant interval change. at 0640 Reported and signed by: Ubaldo Cho M.D. CC: Baltazar Henson MD; Mary Kidd MD Technologist: KEELY ADAME [facility] Date/Time/By: 10/13/2021 (639) : By: [email or web address] PAGE 1 Signed Report FAX: Baltazar Sunshine MD [phone] [place]: St: [facility] FAX: Mary Valente MD [phone] Name: EDDI JONES [facility] : 1955 Age/S: 66/M [address] [facility] [employer] Unit #: [id number] Loc: [address] [place], [place]: [place] [address] Acct: [id number] Dis Date: Status: ADM IN PHONE #: [phone] Exam Date: 10/13/2021 06 FAX #: [phone] Reason: sob EXAMS: CPT CODE: [id number] XR CHEST 1 V 05874 (Continued) Orig Print D/T: S: 10/13/2021 (0643) PAGE 2 Signed ReportCBC W/AUTO [id number] 15:10:00 Test Item Value Reference Range Interpretation [...] = DECREASED PLTEST) HARDSTICK PATIENT. NOTIFIED NURSE: EMMA.PRESTON.JODY 10/12/21 0945.BASIC METABOLIC [id number] 14:59:00 Test Item Value Reference Range Interpretation [...] ALDA 10/12/21 0945.PT H/S.- CT CHEST W/O [id number] 10:43:00 [facility] : 1955 Sex: M FAX: Baltazar Sunshine MD [phone] [place]: St: [facility] FAX: Mary Valente MD [phone] Name: EDDI JONES [facility] : 1955 Age/S: 66/M [address] [facility] Unit: [id number] Loc: [address] Phys: [place] [address] Acct: [id number] Dis Date: Status: ADM IN PHONE #: [phone] Exam Date: 10/12/2021954 FAX #: [phone] Reason: empyema EXAMS: CPT CODE: [id number] CT CHEST W/O CONTRAST 59152 EXAM: - CT CHEST W/O CONTRAST LOCATION: U19 TECHNIQUE: Serial axial CT images wereobtained from the supraclavicular region to the adrenal [...] pericardium are unremarkable. The thoracic aorta is nonaneurysmal.Mild aortic atherosclerosis. Coronary artery calcifications are present. The pulmonary trunk is normal in size. The esophagus is grossly unremarkable. VISUALIZED ABDOMEN: Morphologic changes of chronicliver disease and sequelae of portal hypertension. SOFT TISSUES: Unremarkable. PAGE 1 Signed Report(CONTINUED) FAX: Baltazar Sunshine MD [phone] [place]: St: [facility] FAX: Mary Valente MD [phone] Name: EDDI JONES [facility] : 1955 Age/S: 66/M [address] [facility] Unit: [id number] Loc: [address] [place], [place]: [place] [address] Acct: [id number] Dis Date: Status: ADM IN PHONE#: [phone] Exam Date: 10/12/2021 0955 FAX #: [phone] Reason: empyema EXAMS: CPT CODE: [id number] CHEST W/O CONTRAST 70799 (Continued) BONES: Mild spinal degenerative changes noted. No acute osseous findings. IMPRESSION: 1. Status post chest tube placement within right-sided empyema, whichis significantly decreased in size from prior. Residual [...] Henson MD; Mary Kidd MD Technologist: MOLLY KING; ABHIJEET PURVIS Trnscrd Dt/Tm: 10/12/2021 (1043) t.SDR.JW22 Orig Print D/T: S: 10/12/2021 (1046 PAGE 2 Signed Report- XR CHEST 1 [id number] 06:45:00 [facility] : 1955 Sex: M FAX: Baltazar Sunshine MD [phone] [place]: St: ADM FAX: Mary Valente MD [phone] Name: EDDI JONES [facility] : 1955 Age/S: 66/M [address] [facility] Unit #: [id number] Loc: [place]: [place] [address] Acct: [id number] Dis Date: Status: ADM IN PHONE #: [phone] Exam Date: 10/12/2021642 FAX #: [phone] Reason: sob EXAMS: CPT CODE: [id number] XR CHEST1 V 86051 EXAM: - XR CHEST 1 V Location code:C3 HISTORY: sob COMPARISON: 10/11/2021 FINDINGS: Single AP view of the chest is provided. Right-sided thoracostomy tube is unchanged. Pleural-parenchymal opac ity at the right lung base is similar. The left lung is clear. There is no pneumothorax. Pression: 1. No significant interval change. at 0645 Reported and signed by: Ubaldo Cho M.D. CC: Baltazar Henson MD; Mary Kidd MD Technologist: ANALIA MILLER Trnward Date/Time/By: 10/12/2021 (0645) : By: [email or web address] PAGE 1 Signed Report FAX: Baltazar Sunshine MD [phone] [place]: St: [facility] FAX: Mary Valente Ashley [phone] Name: EDDI JONES [facility] : 1955 Age/S: 66/M [address] [facility] Unit #: [id number] Loc: [address] [place], [place]: [place] [address] Acct: [id number] Dis Date: Status: ADM IN PHONE #: [phone] Exam Date: 10/12/2021 0643 FAX #: [phone] Reason: sob EXAMS: CPT CODE: [id number] XR CHEST 1 V 58807 (Continued) Orig Print D/T: S: 10/12/2021 (0648) PAGE 2 Signed [id number] 18:51:00 Test Item Value Reference Range Interpretation Comments TROPONIN-I (test 0.02 NG/ML 0.00-0.06 N REFERENCE R TATUM TROPONIN code = TROPI) I HEALTHY JEANETTE VIDUALS: <0.06 ng/mL R/O ISCHEMIA: 0.07 - 0.60 ng/mL CUT-OFF R TATUM FOR AMI: 0.60 - 1.5 ng/mL - XR CHEST 1 [id number] 18:25:00 [facility] : 1955 Sex: M FAX: Melinda Singleton MD [place]: St: ADM FAX: Mary Valente MD [phone] Name: EDDI JONES [facility] :1955 Age/S: 66/M [address] [facility] Unit #: [id number] Loc: [place], [place] [address] Acct: [id number] Dis Date: Status: ADM IN PHONE #: [phone] ExamDate: 10/11/2021 1810 FAX #: [phone] Reason: R/O DISLOCATION OF CHEST TUBE EXAMS: CPT CODE: [id number] XR CHEST 1 V 63595 C3 TIME OF STUDY: 10/11/2021 5:50 PM REASON FOR EXAM: R/O DISLOCATION OF CHEST TUBE COMPARISON: Chest radiograph from the same date at 11:00 AM. FINDINGS: AP view of the chestwas obtained. Support devices: A small bore right [...] 1. Decreased right pleural effusion post chest tubeplacement. No pneumothorax. at 1825 Reported and signed by: Dre Plaza M.D. CC: Melinda Rivera MD; Mary Kidd MD Technologist: LARA CAGLE Trnward Date/Time/By: 10/11/2021 (1824) : By: Dusty.SI1 PAGE 1 Signed Report FAX: Melinda Singleton MD [place]: St: [facility] FAX: Mary Valente MD [phone] Name: EDDI JONES [facility] : 1955 Age/S: 66/M [address] [employer] Unit #: [id number] Loc: [address] [place], [place] Phys: [place] [address] Acct: [id number] Dis Date: Status: ADM IN PHONE #: [phone] Exam Date: 10/11/2021 181 FAX #: [phone] Reason: R/O DISLOCATION OF CHEST TUBE EXAMS: CPT CODE: [id number] XR CHEST1 V 02963 (Continued) Orig Print D/T: S: 10/11/2021 (1829) PAGE 2 Signed ReportFLUID [id number] 16:38:00 Test Item Value Reference Range Interpretation Comments FLUID PROTEIN 3.6 g/dL The reference range and other (test code = method PROTFL) performancespec ifications have not been establ ished for this body fluidtest. The test result must be integra britta into the clinicalcontext for interpretation. Specimen comments: Verónica Spence 1Specimen comments: Lavender TopFLUID [id number] 16:38:00 Test Item Value Reference Range Interpretation Comments FLUID LDH 1736 IU/L The reference r tatum and other (test code = method performa ncespecifications LDHFL) have not been e stablished for this body fluid test. The test result must be integrated into the clinicalcon text for interpretation. Result is in International U nits/Liter Specimen comments: Verónica Spence 1Specimen comments: Lavender TopPLEURAL FLD CELL CT/[id number] 16:38:00 Test Item Value Reference Range Interpretation [...] (test 100 code = TOTCELLFL) Specimen comments: Verónica Top 1Specimen comments: Lavender TopPLERUAL FLD GLUCOSE 2021-10-11 16:38:00 Test Item Value Reference Range Interpretation Comments PLERUAL FLD 43 MG/DL 65-110 L The reference r tatum and other GLUCOSE (test method code = GLUPL) performancespe cifications have not been establ ished for this body fluidtest. The test result must be integra britta into the clinicalcontext for interpretation. Specimen comments: Screw Top 1Specimen comments: Lavmary TopTROPONIN-I 2021-10-11 15:38:00 Test Item Value Reference Range Interpretation Comments TROPONIN-I (test 0.02 NG/ML 0.00-0.06 N REFERENCE R TATUM TROPONIN code = TROPI) I HEALTHY JEANETTE VIDUALS: <0.06 ng/mL R/O ISCHEMIA: 0.07 - 0.60 ng/mL CUT-OFF R TATUM FOR AMI: 0.60 - 1.5 ng/mL URINALYSIS [id number] 15:28:00 Test Item Value Reference Range Interpretation [...] Description: CLEAN CATCHUA RFLX MICR CULT IF [id number] 15:28:00 Test Item Value Reference Range Interpretation Comments UA CULTURE NEEDED? NO, WBC<10 Culture Chk Criteria not met, (test code = Criteria Urine Culture UACULT) cancelled. Indication for culture: RiskForSepsis-no oth srcSpecimen Description: CLEAN CATCHLACTIC ACID [id number] 14:33:00 Test Item Value Reference Range Interpretation Comments LACTIC ACID REPEAT (test code = 1.9 mmol/L 0.4-2.0 N LACTR) - CT ABD PELVIS [id number] 14:00:00 [facility] ED[facility] : 1955 Sex: M FAX: Melinda Singleton MD [place]: MANDI St: REG Name: EDDI JONES Hal [facility] : 1955 Age/S: 66/M [address] [facility] Unit: [id number] Loc: [place], [place] Phys: [place] [address] Acct: [id number] Dis Date: Status: REG ER PHONE #: [phone] Exam Date: 10/11/2021 1348 FAX #: [phone]: hernia EXAMS: CPT CODE: [id number] CT ABD PELVIS W/CONT 70089 EXAM: - CT ABD PELVIS W/CONT LOCATION: [...] 1 Signed Report (CONTINUED) FAX: Melinda Singleton MD [place]: St: REG -- Name: EDDI JONES [facility] : 1955 Age/S: 66/M [address] [facility] Unit: [id number] Loc: E.[place] [place], [place]: [place] [address] Acct: [id number] Dis Date: Status: REG ER PHONE #: [phone] Exam Date: 10/11/2021 1348 FAX #: [phone] Reason: hernia EXAMS: CPT CODE: [id number] CT ABD PELVIS W/CONT 14690 (Continued) Lymphatics: No enlarged lymph nodes by CT size criteria. Bones/Soft Tissues: No acute osseous findings. 2.6 cm fluid containing umbilical hernia. Peritoneum/Other: No extraluminal air. No extraluminal fluid. IMPRESSION: Cirrhosis, splenomegaly. No ascites. Moderate right pleural effusion. Severe right lower lobe and moderate right middle lobe consolidation. 2.6 cm fluid containing umbilical hernia. at 1400 Reported and signed by: James Ellsworth M.D. CC: Melinda Rivera MD Technologist: MOLLY KING Trnscrd Dt/Tm: 10/11/2021 (1400) t.NEELIMAR.HV2 Orig Print D/T: S: 10/11/2021 (9734 PAGE 2 Signed ReportCOVID 19 Asymptomatic IH [id number] 13:35:00 Test Item Value Reference Range Interpretation Comments COVID 19 NEGATIVE NEGATIVE Negative result s should be Asymptomatic IH AG treated a s presumptive and (test code = ifinconsistent with COVNONPUIAG) clinical signs and symptoms, or ne cessaryfor patient managem ent, should be tested with an alternativemole cular assay. Negative results do not preclude XXZM-HqK-4ttziv tion and should not be u sed as the sole basis forp atient management deci sions. Negative result s should beconsidered in the context of a pa tient's recent exposure s,history, presence of cli nical signs and symptoms consistentwith COVID-19. B-TYPE NATRIURETIC [id number] 12:37:00 Test Item Value Reference Range Interpretation Comments B-TYPE NATRIURETIC PEPTIDE (test 5.3 PG/ML 5-100 N code = BNP) CARDIAC ENZYMES [id number] 12:37:00 Test Item Value Reference Range Interpretation Comments CREATINE KINASE (CK) 66 Units/L 35-232 N (test code = CK) TROPONIN-I (test code 0.02 NG/ML 0.00-0.06 N REFERE NCE RANGE = TROPI) TROPONIN I HEAL THY INDIVIDUALS: <0 .06 ng/mL R/O ISCHE ONEIDA: 0.07 - 0.60 ng/ mL CUT-OFF RANGE F OR AMI: 0.60 - 1.5 ng/m L BASIC METABOLIC [id number] 12:37:00 Test Item Value Reference Range Interpretation [...] 8.8 mg/dl 8.0-10.5 N HEPATIC FUNCTION PANEL [id number] 12:37:00 Test Item Value Reference Range Interpretation [...] 215 Units/L 50.0-136.0 H code = ALKP) [id number] 12:37:00 Test Item Value Reference Range Interpretation Comments LIPASE (test code = LIP) 352 Units/L 65.0-230.0 H LACTIC [id number] 12:13:00 Test Item Value Reference Range Interpretation Comments LACTIC ACID (test code = LACT) 2.7 MMOL/L 0.4-2.0 H [id number] 12:06:00 Test Item Value Reference Range Interpretation Comments AMMONIA (test code = AMM) 4.3 MCMOL/L 11.0-32.0 L PROTHROMBIN [id number] 12:05:00 Test Item Value Reference Range Interpretation Comments PROTHROMBIN TIME 17.8 SECONDS 9.9-12.8 H PATIENT (test code = PTP) INTERNATIONAL NORMAL 1.5 0.89-1.14 H THE INR IS TO BE USED RATIO (test code = ONLY FOR MONITORING INR) ORAL ANTICOAGULANTTH ERAPY. THE FOLLOWING A RE SUGGESTED RANGE S FROM [facility] LEGE OF CHEST PHYSICIANS:JEANETTE CATION INR [...] D ANTIBODIES 2.5 - 3.5 THROMBOPLASTIN TIME [id number] 12:05:00 Test Item Value Reference Range Interpretation Comments THROMBOPLASTIN TIME 31.40 SECONDS 25.86-36.07 N [place] d Lab PARTIAL (test code = Therape utic Range - PTT) APTT of 55.8-85 .4 secondscorrelat es with plasma heparin concentration o f 0.2-0.4 u/mL Ne w range effective - CBC W/AUTO [id number] 11:59:00 Test Item Value Reference Range Interpretation [...] 0.00-0.01 N NRBC#) - XR CHEST 1 [id number] 11:53:00 [facility] : 1955 Sex: M FAX: Melinda Singleton MD [place]: St: REG Name: EDDI JONES [facility] : 1955 Age/S: 66/M [address] [facility] Unit #: [id number] Loc: [place], [place]: [place] [address] Acct: [id number] Dis Date: Status: REG ER PHONE #: [phone] Exam Date: 10/11/2021 1141 FAX #: [phone] Reason: Code SEPSIS EXAMS: CPT CODE: [id number] XR CHEST 1 V 48614 EXAM: - XR CHEST 1 V LOCATION: C3 HISTORY: Code SEPSIS COMPARISON: None available at time of interpretation. FINDINGS: Single view of the chest. No indwelling lines or tubes. No pneumothorax. Moderate right pleural effusion is noted. The mediastinal contours are unremarkable/unchanged. No acute osseous findings are present. IMPRESSION: Moderate right pleural effusion. at 1153 Reported and signed by: James Ellsworth M.D. CC: Mleinda Rivera MD Technologist: DOROTHY SANON Trnscrd Date/Time/By: 10/11/2021 (8656) : By: [email or web address] PAGE 1 Signed Report FAX: Melinda Singleton MD [place]: St: REG Name: EDDI JONES [facility] : 1955 Age/S: 66/M [address] [facility] Unit #: [id number] Loc: [place], [place]: [place] [address] Acct: [id number] Dis Date: Status: REG ER PHONE #: [phone] Exam Date: 10/11/2021 1141 FAX #: [phone] Reason: Code SEPSIS EXAMS: CPT CODE: [id number] XR CHEST 1 V 63940 (Continued) Orig Print D/T: S: 10/11/2021 (5686) PAGE 2 Signed ReportBLOOD CULTURE [id number] 12:31:49 Test Item Value Reference Range Interpretation Comments Blood Culture Coagulase negative Organism identified Workup (test Staphylococcus by DNA code = 600-7) probeAdditiona l work-up perform ed only per reques t. Culture plate(s ) will be saved until this date: - 10/13/21 Gram stain Isolated from Gram positive cocci (test code = anaerobic bottle in Anaerobi c bottle 664-3) Gram positive cocci [facility] HospitalBL[facility] [id number] 12:31:44 Test Item Value Reference Range Interpretation Comments Blood Culture-Aerobic No organisms No growth Previo us (test code = 66333-2) isolated prelim inary verified result was Culture In Progress on 10/06/2021 at 15 19 CDT Blood Culture positive. No growth AA Gram posit kashif Culture-Anaerobic See Blood Culture cocci in (test code = 09545-5) Workup for Anaero bic bottle additional Previous information. preliminary verified result was Culture In Progress on 10/05/2021 at 16 01 CDT Lab Interpretation Abnormal (test code = 76652-5) [facility] HospitalN-TERMINAL [id number] 12:26:48 Test Item Value Reference Range Interpretation Comments NT-proBNP (test code 1080 pg/mL See_Comment H [Autom ated = 5907712498) message] The system which generated this result transmitted reference range : <=125. The reference range was not used to interpret this result as normal/abnormal . ALLYN (test code = ALLYN) Biotin has been reported to cause a negative bias, interpret results relative to patient's use of biotin. Lab Interpretation Abnormal (test code = 65112-6) [facility] HospitalMAGNESIUM2022-03-19 12:19:25 Test Item Value Reference Range Interpretation Comments MAGNESIUM (test code = 0526662446) 2.7 mg/dL 1.7-2.4 H Lab Interpretation (test code = Abnormal 49341-3) [facility] HospitalCOMP. METABOLIC PANEL (64252)2021-10-08 12:19:05 Test Item Value Reference Range Interpretation Comments NA (test code = 135 mmol/L 135-145 6925287807) K (test code = 4.5 mmol/L 3.5-5.0 8806176087) CL (test code = 103 mmol/L 98-108 7565820313) CO2 TOTAL (test code = 26 mmol/L 23-31 3180414535) AGAP (test code = 2-16 8436137809) BUN (test code = 51 mg/dL 7-23 H 0504351739) GLUCOSE (test code = 150 mg/dL 70-110 H 1590588092) CREATININE (test code = 0.74 mg/dL 0.60-1.25 3809681587) TOTAL BILI (test code = 1.9 mg/dL 0.1-1.1 H 8284275095) CALCIUM (test code = 8.1 mg/dL 8.6-10.6 L 9226432039) T PROTEIN (test code = 6.7 g/dL 6.3-8.2 8913737509) ALBUMIN (test code = 3.0 g/dL 3.5-5.0 L 3422243197) ALK PHOS (test code = 100 U/L 34-122 0312037021) ALTv (test code = 73 U/L 5-50 H 1742-6) AST(SGOT) (test code = 184 U/L 13-40 H 6653577568) eGFR (test code = mL/min/1.73m2 5683109454) ALLYN (test code = LALYN) Association of Glomerular Filtration Rate (GFR) and [...] tests). Lab Interpretation Abnormal (test code = 74247-2) [facility] WITHOUT [id number] 10:55:51 Test Item Value Reference Range Interpretation Comments WBC (test code = See_Comment [Automated message] 6690-2) The system [employer] generated this result transmitted ref erence range: 4.20 - 1 0.70 10*3/?L. The reference range was not used to int erpret this result as normal/abnormal . RBC (test code = 789-8) See_Comment L [Au tomated message] The system [employer] generated this result transmitted ref erence range: [...] See_Comment LL [Au tomated message] The system [employer] generated this result transmitted ref erence range: 150 - 32 8 10*3/?L. The reference range was not used to int erpret this result as normal/abnormal . MPV (test code = 11.5 fL 9.8-13.0 37058-8) RDW-CV (test code = 14.9 % 12.1-15.4 788-0) RDW-SD (test code = 52.4 fL 38.5-51.6 H 51277-1) NRBC x10^3 (test code = <0.01 See_Comment [Au tomated message] 6795955110) The system [employer] generated this result transmitted ref erence range: 10*3/?L. The reference range was not used to int erpret this result as normal/abnormal . NRBC/100 WBC (test code See_Comment [Au tomated message] = 2152139748) The system [facility] generated this result transmitted ref erence range: 0.0 - 10 .0 /100 WBCs. The reference range was not used to int erpret this result as normal/abnormal . IPF % (test code = 5.0 % 1.2-10.7 Platelet count 2733213071) measured by fluorescence me thod. Lab Interpretation Abnormal (test code = 47771-7) [facility] [place] [facility] HospitalMYCOPLASMA PNEUMONIAE ANTIBODY, [id number] 23:05:23 Test Item Value Reference Range Interpretation [...] than 12 months post-infection. Perform ed By: [address] [id number] Director: Makayla Salazar MD [Aut omated message] The sy stem which generated this result transmit britta reference range : <=0.76. The ref erence range was not u sed to interpret this result as normal/abnor mal. Lab Interpretation Abnormal (test code = 75899-5) [facility] HospitalMAGNESIUM2022-03-18 11:18:21 Test Item Value Reference Range Interpretation Comments MAGNESIUM (test code = 2339436129) 3.2 mg/dL 1.7-2.4 H Lab Interpretation (test code = Abnormal 06823-6) [facility]. METABOLIC PANEL (94254)2021-10-07 11:18:00 Test Item Value Reference Range Interpretation Comments NA (test code = 137 mmol/L 135-145 2070471919) K (test code = 3.4 mmol/L 3.5-5.0 L 5125176773) CL (test code = 108 mmol/L 98-108 2870921471) CO2 TOTAL (test code = 20 mmol/L 23-31 L 3940117643) AGAP (test code = 2-16 3212220326) BUN (test code = 58 mg/dL 7-23 H 7985460132) GLUCOSE (test code = 145 mg/dL 70-110 H 8076655735) CREATININE (test code = 0.86 mg/dL 0.60-1.25 5384463949) TOTAL BILI (test code = 1.7 mg/dL 0.1-1.1 H 3529000452) CALCIUM (test code = 7.7 mg/dL 8.6-10.6 L 9553603403) T PROTEIN (test code = 6.1 g/dL 6.3-8.2 L 8509812467) ALBUMIN (test code = 2.8 g/dL 3.5-5.0 L 9320833024) ALK PHOS (test code = 74 U/L 34-122 9947284398) ALTv (test code = 57 U/L 5-50 H 1742-6) AST(SGOT) (test code = 163 U/L 13-40 H 2717707524) eGFR (test code = mL/min/1.73m2 2099306535) ALLYN (test code = ALLYN) Association of [...] tests). Lab Interpretation Abnormal (test code = 08522-0) [facility] WITH [id number] 11:13:03 Test Item Value Reference Range Interpretation Comments WBC (test code = See_Comment L [Automated 4090-2) message] The system which generated this result transmitted reference range : 4.20 - 10.70 10*3/?L. The reference range was not used to interpret this result as normal/abnormal . RBC (test code = See_Comment L [Automated 769-8) message] The system which generated this result [...] (test code = 53.1 fL 38.5-51.6 H 22003-8) RDW-CV (test code = 15.0 % 12.1-15.4 788-0) PLT (test code = See_Comment LL [Automated 777-3) message] The system which generated this result transmitted reference range : 150 - 328 10*3/?L. The reference range was not used to interpret this result as normal/abnormal . MPV (test code = 9.9 fL 9.8-13.0 80351-8) NRBC/100 WBC (test See_Comment [Automat ed code = 4135145921) message] The system which generated this result transmitted reference range : 0.0 - 10.0 /100 WBCs. The reference range was not used to interpret this result as normal/abnormal . NRBC x10^3 (test code <0.01 See_Comment [Auto mated = 0226089063) message] The system which generated this result transmitted reference range : 10*3/?L. The reference range was not used to interpret this result as normal/abnormal . GRAN MAT (NEUT) % 79.5 % (test code = 770-8) IMM GRAN % (test code 6.00 % = 4930609170) LYMPH % (test code = 5.4 % 736-9) MONO % (test code = 8.0 % 5905-5) EOS % (test code = 0.0 % 713-8) BASO % (test code = 1.1 % 706-2) GRAN MAT x10^3(ANC) 2.78 10*3/uL 1.99-6.95 (test code = 6836411468) IMM GRAN x10^3 (test 0.21 10*3/uL 0.00-0.06 H code = 2212048822) LYMPH x10^3 (test 0.19 10*3/uL 1.09-3.23 L code = 731-0) MONO x10^3 (test code 0.28 10*3/uL 0.36-1.02 L = 742-7) EOS x10^3 (test code <0.03 0.06-0.53 L = 711-2) BASO x10^3 (test code 0.04 10*3/uL 0.01-0.09 = 704-7) BANDS (test code = MARKED INCREASED A 8419159707) DOHLE BODIES (test Present A code = 7792-5) TOXIC CHANGES (test Present A code = 803-7) PLT ESTIMATE (test Critically Normal AA code = 9317-9) Decreased Lab Interpretation Abnormal (test code = 91506-9) [facility] HospitalGRAM POSITIVE BLOOD PATHOGENS DNA [id number]-[id number] 22:53:38 Test Item Value Reference Range Interpretation Comments Coagulase Negative Positive Negative, See A Staphylococcus (test Comment/Narrative code = 35496-4) ALLYN (test code = ALLYN) Coagulase negative [...] contact the Antimicrobial Stewardship Program with questions.Pager: ?[phone] Testing included eleven identification and three resistance marker targets. Lab Interpretation Abnormal (test code = 67163-5) [facility] HospitalTransthoracic echo (TTE)2021-10-06 22:06:00 Test Item Value Reference Range Interpretation Comments LVIDD (test code = 4.30 cm 9204495521) IVS (test code = 1.05 cm 8553582045) Interventricular Septum 1.05 cm Diastolic Thickness by 2D (test code = 4908878) LVPWD (test code = 0.96 cm 5788600635) PW (test code = 0.96 cm 0.6-1.5 0725624740) EF(Teich) (test code = 65.60 % 7133918143) LVIDS (test code = 2.80 cm 9906865861) FS (test code = 36 % 7020623982) EF - 2D (test code = 65.60 % 55758565) LVOT diameter (test code 2.06 cm = 4370918180) ACS (test code = 1.44 cm 4797153303) Ao root annulus (test 2.44 cm code = 5301881271) Ao root diam (test code = 2.44 cm 9555646528) Aortic root (test code = 2.44 cm 5115945454) LA size (test code = 4.7 cm 4665031687) E wave decelartion time 0.25 s (test code = 1106309606) MV Peak E Manjula (test code 107.4 cm/s = 5705129847) MV Peak A Manjula (test code 100.5 cm/s = 1219971923) E/A ratio (test code = ratio 2562251158) MV Prop V (test code = 83.40 cm/s 0198814765) TR Peak Manjula (test code = 244.4 cm/s 3149275637) Triscuspid Valve mmHg Regurgitation Peak Gradient (test code = 4269768668) LVOT stroke volume (test 66.20 cm3 code = 7458153138) LVOT peak manjula (test code 85.8 cm/s = 8052343206) LVOT mn grad (test code = mmHg 1183250911) AV LVOT peak gradient mmHg (test code = 0552313558) LVOT peak VTI (test code 19.9 cm = 5483269974) LV V1 mean (test code = 55.80 cm/s 1077216426) Aortic valve mean 174.5 cm/s velocity (test code = 9213237101) Ao peak manjula (test code = 283.1 cm/s 4027321669) Ao VTI (test code = 58.8 cm 8151388261) AV area by cont VTI (test 1.1 cm2 code = 7656664711) AV area peak manjula (test 1.0 cm2 code = 5022794313) Ao max PG (test code = 32.10 mm[Hg] 0528045998) AV peak gradient (test mmHg code = 4776990450) AV valve area (test code 1.13 cm2 = 8177076583) AV mean gradient (test mmHg code = 0299135060) MR max PG (test code = 42.50 mm[Hg] 7617190574) MR max manjula (test code = 326.10 cm/s 0529430704) Mr max manjula (test code = 326.1 m/s 2429864092) Radiology Study observation (narrative) (test code = 73585-2) ALLYN (test code = ALLYN) ?Left?Ventricle: Left [...] (64 kg) 1.72 sq meters 96/64 88 [facility] HospitalCORTISOL [id number] 20:38:54 Test Item Value Reference Range Interpretation Comments SMILEY AM (test code = 43.5 ug/dL 4.5-23.0 H 8399123381) ALLYN (test code = ALLYN) Biotin has been reported to cause a positive bias, interpret results relative to patient's use of biotin. Lab Interpretation (test Abnormal code = 46063-0) [facility] HospitalHEPATITIS C VIRUS (HCV) BY QUANTITATIVE NAAT 2021-10-06 17:22:35 Test Item Value Reference Range Interpretation Comments HCV Quantitative Not Detected Not Detected Interpretation (test code = 7827486966) ALLYN (test code = ALLYN) The Aptima HCV Quant Dx assay is an FDA-approved real-time packaging operator-mediated amplification (TMA) test used for both detection [...] indicated. Lab Interpretation Normal (test code = 64532-0) [facility] HospitalTHYROID STIMULATING [id number] 15:03:33 Test Item Value Reference Range Interpretation Comments TSH (test code = See_Comment [Automated message] 9301071992) The system [employer] generated this result transmitted ref erence range: 0.45 - 4 .70 mIU/L. The refe rence range was not u sed to interpret this result as normal/abnor mal. Lab Interpretation (test Normal code = 02214-1) [facility] HospitalMAGNESIUM2022-03-17 09:12:39 Test Item Value Reference Range Interpretation Comments MAGNESIUM (test code = 4738599719) 3.1 mg/dL 1.7-2.4 H Lab Interpretation (test code = Abnormal 90388-5) [facility] HospitalCOMP. METABOLIC PANEL (45142)2021-10-06 09:12:19 Test Item Value Reference Range Interpretation Comments NA (test code = 134 mmol/L 135-145 L 6383503042) K (test code = 3.4 mmol/L 3.5-5.0 L 1902012170) CL (test code = 103 mmol/L 98-108 4106971114) CO2 TOTAL (test code = 20 mmol/L 23-31 L 1816665104) AGAP (test code = 2-16 6818006025) BUN (test code = 69 mg/dL 7-23 H 5411830350) GLUCOSE (test code = 107 mg/dL 70-110 0841850720) CREATININE (test code = 1.48 mg/dL 0.60-1.25 H 0113447092) TOTAL BILI (test code = 2.3 mg/dL 0.1-1.1 H 1906395980) CALCIUM (test code = 7.5 mg/dL 8.6-10.6 L 2984194401) T PROTEIN (test code = 6.2 g/dL 6.3-8.2 L 7579584636) ALBUMIN (test code = 2.9 g/dL 3.5-5.0 L 4753606030) ALK PHOS (test code = 53 U/L 34-122 6867868143) ALTv (test code = 47 U/L 5-50 1742-6) AST(SGOT) (test code = 208 U/L 13-40 H 8916782070) eGFR (test code = mL/min/1.73m2 3243242198) ALLYN (test code = ALLYN) Association of [...] tests). Lab Interpretation Abnormal (test code = 51260-9) [facility] HospitalAMMONIA, [id number] 09:11:49 Test Item Value Reference Range Interpretation Comments AMMONIA (test code = 6686133868) <9 9-33 L Lab Interpretation (test code = Abnormal 86992-0) [facility] HospitalHCV [id number] 05:14:31 Test Item Value Reference Range Interpretation Comments HCV Ab (test code = Positive 71970-5) HCV Semi-Quantitative (test code = 14439-7) APRI (test code = 2360849022) ALLYN (test code = Positive for HCV antibody ALLYN) with a high signal to cutoff ratio (s/c). ?Supplementary test for Hepatitis C Virus RNA Real-Time PCR is recommended if clinically indicated. ?If any questions, please contact Clinical Chemistry Director gem stone cutter at [phone].APRI score < 0.5: Suggestive of little to no fibrosisAPRI score > 1.5: Suggestive of moderate to severe fibrosisAPRI score > 2.0: Highly suggestive of cirrhosis. [facility] HospitalHEPATITIS B SURFACE [id number] 04:32:39 Test Item Value Reference Range Interpretation Comments HBsAB (test code = Negative 2548568377) HBsAb mIU/mL Semi-Quantitative (test code = 9009066865) ALLYN (test code = Interpretation: ALLYN) ?Hepatitis B Surface Antibody ? Negative - Patient is considered to be not immune to infection with HBV. ? ? Positive - Anti-HBs detected at greater than or equal to 12 mIU/mL. ?Patient is considered to be immune to infection with HBV. ? [facility] HospitalHBC ANTIBODY (IGM & IGG)2021-10-06 04:32:39 Test Item Value Reference Range Interpretation Comments HBC (test code = 7549826540) Negative HBC Semi-Quantitative (test code = 4862446274) [facility] HospitalPROCALCITONIN2022-03-17 04:13:48 Test Item Value Reference Range Interpretation Comments Procalcitonin (test 19.95 ng/mL <0.07 H code = 6303375264) ALLYN (test code = ALLYN) INTERPRETATION OF [...] For further information please refer to:[email or web address] Lab Interpretation Abnormal (test code = 64262-7) [facility] [id number] 02:05:57 Test Item Value Reference Interpretation Comments Range TROPONIN I (test 0.011 ng/mL See_Comment [Automated code = 8226585301) message] The system which generated this result [...] biotin. Lab Interpretation Normal (test code = 79859-2) [facility] [id number] 15:30:20 Test Item Value Reference Interpretation Comments Range TROPONIN I (test 0.024 ng/mL See_Comment [Automated code = 2594505177) message] The system which generated this result [...] biotin. Lab Interpretation Normal (test code = 60017-2) [facility] WITH [id number] 15:30:04 Test Item Value Reference Range Interpretation Comments WBC (test code = See_Comment H [Automated 3677-2) message] The system which generated this result transmit britta reference range : 4.20 - 10.70 10*3/?L. The reference range was not used to interpret this result as normal/abnormal . RBC (test code = See_Comment [Automated 479-8) message] The system which generated this result [...] RDW-SD (test code = 50.5 fL 38.5-51.6 96818-7) RDW-CV (test code = 14.7 % 12.1-15.4 788-0) PLT (test code = See_Comment L [Automated 777-3) message] The system which generated this result transmit britta reference range : 150 - 328 10*3/ ?L. The reference range was not u sed to interpret th is result as normal/abnormal . MPV (test code = 10.3 fL 9.8-13.0 34280-6) IPF % (test code = 3.7 % 1.2-10.7 Platelet count 3489244330) measured by fluorescence method. NRBC/100 WBC (test See_Comment [Automat ed code = 8140033892) message] The system which generated this result transmit britta reference range : 0.0 - 10.0 /100 WBCs. The reference range was not used to interpret this result as normal/abnormal . NRBC x10^3 (test code <0.01 See_Comment [Auto mated = 0139296504) message] The system which generated this result transmit britta reference range : 10*3/?L. The reference range was not used to interpret this result as normal/abnormal . GRAN MAT (NEUT) % 91.1 % (test code = 770-8) IMM GRAN % (test code 2.70 % = 8096853112) LYMPH % (test code = 1.7 % 736-9) MONO % (test code = 4.4 % 5905-5) EOS % (test code = 0.1 % 713-8) BASO % (test code = 0.0 % 706-2) GRAN MAT x10^3(ANC) 10.59 10*3/uL 1.99-6.95 H (test code = 8021799842) IMM GRAN x10^3 (test 0.31 10*3/uL 0.00-0.06 H code = 4472039274) LYMPH x10^3 (test 0.20 10*3/uL 1.09-3.23 L code = 731-0) MONO x10^3 (test code 0.51 10*3/uL 0.36-1.02 = 742-7) EOS x10^3 (test code <0.03 0.06-0.53 L = 711-2) BASO x10^3 (test code <0.03 0.01-0.09 = 704-7) BANDS (test code = MARKED INCREASED A 4766148468) DOHLE BODIES (test Present A code = [...] . Lab Interpretation Abnormal (test code = 81623-6) [facility] HospitalN-TERMINAL [id number] 15:26:58 Test Item Value Reference Range Interpretation Comments NT-proBNP (test code 3760 pg/mL See_Comment H [Autom ated = 9199014248) message] The system which generated this result transmitted reference range : <=125. The reference range was not used to interpret this result as normal/abnormal . ALLYN (test code = ALLYN) Biotin has been reported to cause a negative bias, interpret results relative to patient's use of biotin. Lab Interpretation Abnormal (test code = 16741-8) [facility] HospitalD-[id number] 15:20:50 Test Item Value Reference Interpretation Comments Range D-DIMER (test code = See_Comment H [Autom ated 9984025855) message] The system which generated this result [...] diagnosis. Lab Interpretation Abnormal (test code = 03777-4) [facility]. METABOLIC PANEL (91029)2021-10-05 15:18:35 Test Item Value Reference Range Interpretation Comments NA (test code = 129 mmol/L 135-145 L 7577371139) K (test code = 3.8 mmol/L 3.5-5.0 6717420378) CL (test code = 96 mmol/L 98-108 L 9511792033) CO2 TOTAL (test code = 18 mmol/L 23-31 L 3045234335) AGAP (test code = 2-16 0330521633) BUN (test code = 70 mg/dL 7-23 H 3837277529) GLUCOSE (test code = 108 mg/dL 70-110 2477548544) CREATININE (test code = 1.86 mg/dL 0.60-1.25 H 2402993852) TOTAL BILI (test code = 3.8 mg/dL 0.1-1.1 H 6264142855) CALCIUM (test code = 8.1 mg/dL 8.6-10.6 L 5833337855) T PROTEIN (test code = 7.2 g/dL 6.3-8.2 9876410148) ALBUMIN (test code = 3.5 g/dL 3.5-5.0 1340803653) ALK PHOS (test code = 77 U/L 34-122 1317501541) ALTv (test code = 35 U/L 5-50 1742-6) AST(SGOT) (test code = 141 U/L 13-40 H 1924016195) eGFR (test code = mL/min/1.73m2 8764309900) ALLYN (test code = ALLYN) Association of [...] tests). Lab Interpretation Abnormal (test code = 12904-0) [facility] HospitalAMMONIA, [id number] 15:11:16 Test Item Value Reference Range Interpretation Comments AMMONIA (test code = 6545061959) 15 umol/L 9-33 Lab Interpretation (test code = Normal 61755-1) [facility] HospitalPROTHROMBIN TIME / [id number] 15:06:55 Test Item Value Reference Range Interpretation Comments PROTIME PATIENT (test See_Comment H [Auto mated message] code = 5964-2) The system [employer] generated this result transmitted ref erence range: 12.0 - 1 4.7 Seconds. The reference range was not used to int erpret this result as normal/abnormal . INR (test code = 6301-6) Nor mal INR <1.1; Warfarin Therap eutic range 2.0 to 3. 0 or 2.5 to 3.5, dep ending upon the indica tions. Lab Interpretation (test Abnormal code = 64332-2) [facility] HospitalUrinalysis2021-09-20 14:07:00 Test Item Value Reference Range [...] LPF 0-3 A UAHYAL) Urine Source: Urine UemdnyXklnnmbiss0798-98-03 12:17:00 Test Item Value Reference Range Interpretation [...] PCOMMENT) Hematology (test code = MC) Normal [id number] 11:58:00 Test Item Value Reference Range Interpretation Comments Chemistry (test code 132 mmol/L 136-145 L = NA-T) Chemistry (test code 4.7 mmol/L 3.5-5.1 N Interpr et results with = K-T) caution; hemoly sis detected at fouzia manjula [...] = AST) caution; hemoly sis detected at [facility] that may cause inter ference with the assay. Chemistry (test code 23 U/L 8-55 N = ALT) Body Fluid [id number] 22:25:00 Test Item Value Reference Range Interpretation Comments Body Fluid Culture (test NO GROWTH IN 5 DAYS code = FLUIDC) Body Fluid Culture (test GS code = FLUIDC1) Body Fluid Culture (test NOS code = FLUIDC1) Reference Lab [id number] 11:39:00 Test Item Value Reference Range Interpretation [...] for interpretation. Performed at: HD - [facility] [address] [place], [place] [id number] Di naila: Willy Rousseau MD, Phone : [phone] Hematology - [id number] 08:21:00 Test Item Value Reference Range Interpretation [...] clinicalcontext for interpretation. Source: ASCITES FLUIDHematology - [id number] 08:21:00 Test Item Value Reference Range Interpretation Comments Hematology - Fluids 11 % (test code = CCDIFFBFNE) Hematology - Fluids 27 % (test code = CCDIFFLY) Hematology - Fluids 62 % Non-Bran tic cells (test code = CCDIFFNON) cons ist of macrophages, endothelial,his tiocytic and mesothelial cells. Source: [facility] FLUIDHematology - [id number] 08:21:00 Test Item Value Reference Range Interpretation Comments Hematology - Fluids Other ce lls are (test code = PATHF) macropha ges and mesothelial georgia ls. Nomalignant georgia ls are identified.LUIS CHILDS M.D.CP T Code: 51632 (Booth-s tained cytospin) Source: [facility]ES ELQDBIlyyuifmy6825-35-55 05:37:00 Test Item Value Reference Range Interpretation [...] code 8.0 mg/dL 7.8-10.44 N = CA) Rkjzhbusnw1894-19-89 05:29:00 Test Item Value Reference Range Interpretation [...] 7.3 fL 7.4-10.4 L Chemistry - Body [id number] 19:14:00 Test Item Value Reference Interpretation Comments Range Chemistry - Less than Not Available Fluid Source: []The reference Body Fluids 1.0 g/dL range and other method (test code = performancespec ifications have FLUTP) not been establ ished for this bodyfluid. The test result must be integra britta into the clinicalcontext for interpretation. FLUID SOURCE: ascitesChemistry - Body [id number] 19:11:00 Test Item Value Reference Range Interpretation Comments Chemistry - Body 19 U/L Not Available The refere nce range and other Fluids (test method code = FLUAMY) performancesp ecifications have not been establ ished for this bodyfluid. The test result must be integrated i nto the clinicalcontext for interpretation. FLUID SOURCE: ascitesChemistry - [id number] 15:14:00 Test Item Value Reference Range Interpretation Comments Chemistry - Specials (test code = 5.80 ng/mL 7.0-31.4 L FOLATE) Comment please add onChemistry - Gdtdzmwg3804-27-19 15:08:00 Test Item Value Reference Range Interpretation Comments Chemistry - Specials (test code = 1369 pg/mL 211-911 H VITB12) Comment please add onChemistry - Khndramt4245-44-06 15:08:00 Test Item Value Reference Range Interpretation Comments Chemistry - Specials (test code 2.3160 uIU/mL 0.35-4.94 N = TSH3) Comment please add qdEnydkcdaj3004-78-73 06:02:00 Test Item Value Reference Range Interpretation [...] code 54 U/L 8-55 N = ALT) Qqhffljxsd9684-91-38 05:49:00 Test Item Value Reference Range Interpretation [...] BASO#) 0.0 thou/uL 0.0-0.2 N Molecular Testing [id number] 00:59:00 Test Item Value Reference Range Interpretation Comments Molecular Testing Not Detected NotDetected Performanc e of the MM (test code = Cepheid SARS -CoV-2 has [id number]) only beenestab lished in nasopharyngeal swab specimens. [...] -SymptomaticSource: Nasopharyngeal SwabSymptomatic as defined by CDC: [id number] 19:31:00 Test Item Value Reference Range Interpretation Comments Chemistry (test 0.015 ng/mL < 0.028 code = TROPI-T) Reference Ra nge 0.00 - 0.028 ng /mL Negative 0.029 - 0.29 ng/mL Indetermi jackie Greater or Equa l to 0.3 ng/mL Strongly suggests [place] Ndkfqusna1638-62-89 19:02:00 Test Item Value Reference Range Interpretation Comments Chemistry (test 0.013 ng/mL < 0.028 code = TROPI-T) Reference Ra nge 0.00 - 0.028 ng /mL Negative 0.029 - 0.29 ng/mL Indetermi jackie Greater or Equa l to 0.3 ng/mL Strongly suggests [place] Uczxnjmkf6886-41-09 16:51:00 Test Item Value Reference Range Interpretation Comments Chemistry (test code = PHOS-T) 3.2 mg/dL 2.3-4.7 N Uocfkjomd9145-17-59 16:51:00 Test Item Value Reference Range Interpretation Comments Chemistry (test code = MG) 1.6 mg/dL 1.6-2.6 N Cpzuunsfyco1198-95-85 16:07:00 Test Item Value Reference Range Interpretation [...] sec 22.9-36.1 N code = PTT) Anticoagulant? XSYGYmughqnfu8062-73-86 12:31:00 Test Item Value Reference Range Interpretation Comments Chemistry (test 0.028 ng/mL < 0.028 code = TROPI-R) Reference Ra nge 0.00 - 0.028 ng /mL Negative 0.029 - 0.29 ng/mL Indetermi jackie Greater or Equa l to 0.3 ng/mL Strongly suggests [place] Upzbudtsjq9860-83-47 12:31:00 Test Item Value Reference Range Interpretation [...] code = PCOMMENT) Chemistry - BNP, HgbA1c, [id number] 12:31:00 Test Item Value Reference Range Interpretation Comments Chemistry - BNP, HgbA1c, PTHi 63.5 pg/mL 0-100 N (test code = BNP) [id number] 12:27:00 Test Item Value Reference Range Interpretation [...] 58 U/L 8-55 H = ALT) Culture, [id number] 15:07:00 Test Item Value Reference Range Interpretation Comments Culture, Blood (test code = BC) NG5 15228 SURGICAL PATHOLOGY, LEVEL [id number] 11:59:[address] [address] Laboratory Printed: 06/16/[address] [facility] DAEMPathology Page: 1 Patient: EDDI JONES Birthdate: 1955 Age/Sex: 65/M Spec#: [id number]: Kwame Zimmerman MD Specimen Date: 06/15/20 Received Date: 06/15/20 Specimen: POLYP, RECTUM CLINICAL DIAGNOSIS abdominal pain PATHOLOGIC DIAGNOSIS Large intestine, rectum, "polyp," endoscopic polypectomy: - Cauterized hyperplastic polyp. Comment: This polyp has architectural characteristics of a hyperplastic polyp, but due tocautery artifact, the possibility of low grade adenomatous change cannot be completelyexcluded. Pathologist:Bal Michelle MD Entered by:06/16/20 - 1140 LAB.YGP PROCEDURES: 12187 GROSS DESCRIPTION A. POLYP, RECTUM The specimenis received in 10% formalin, and is labeled with the patient's name and "rectalpolyp." The specimen consists of a portion of pink-gordon soft tissue measuring 0.2 cm. Thespecimen is entirely submitted in one cassette. Dictated by: LUIS MIGUEL VELA Entered by: 06/15/20 - 8192 LAB.YGP Patient: EDDI JONESRe06/11/20Loc: 2NO MR#: [id number] CONTINUED ON NEXT PAGE Dis: 06/15/20ta:DIS IN [facility] [address] [place] [address] Rachel Hendrickson [address] Laboratory Printed: 06/16/[address] [facility] DAEMPathology Page: 2 Patient: EDDI JONES [id number] (Continued) GROSS DESCRIPTION (Continued) MICROSCOPIC DESCRIPTION A microscopic examination was performed to arrive at the diagnostic conclusion reported. Signed (Electronically Signed) Bal Michelle MD 06/16/20 Patient: EDDI JONES Re06/11/20Loc: 2NO MR#: [id number] END OF REPORT Dis: 06/15/20ta: DIS [id number] SURGICAL PATHOLOGY, LEVEL [id number] 09:05:[address] [address] Laboratory Printed: 06/15/[address] [facility] DAEMPathology Page: 1 Patient: EDDI JONES Birthdate: 1955 Age/Sex: 65/M Spec#: [id number]: Kwame Zimmerman MD Specimen Date: 06/13/20 Received Date: 06/14/20 Specimen: GASTRIC BIOPSY PATHOLOGIC DIAGNOSIS Stomach, NOS, endoscopic biopsy: - Mild reactive gastropathic changes in a background of mild chronic gastritis. - No Helicobact er pylori organisms identified. Comment: No Helicobacter pylori organisms are identified on Diff-Quik special stainperformed with adequate control. Pathologist:Champ Cochran MD Entered by:06/15/20 - 0842 LAB.YGP PROCEDURES: 53720, 03093 GROSS DESCRIPTION A. GASTRIC BIOPSY The specimen is received in 10% formalin, and is labeled with the patient's name and"gastric biopsy." The specimen consists of two pink-gordon soft tissue fragments measuring 0.4cm in aggregate. The specimen is entirely submitted in one casse tte. Dictated by: Kourtney Lozada Entered by: 06/14/20 - 1540 LAB.YGP Patient: EDDI JONES Re06/11/20Loc: 2NO MR#: [id number] CONTINUED ON NEXT PAGE Dis: Sta: ADM IN ------- ----- [address] [address] Tel: Laboratory Printed: 06/15/[address] [place] [address] DAEMPathology Page: 2 Patient: EDDI JONES [id number] (Continued ) MICROSCOPIC DESCRIPTION A microscopic examination was performed to arrive at the diagnostic conclusion reported. Signed (Electronically Signed) Champ Cochran MD 06/15/20 Patient: EDDI JONES Re06/11/20Loc: 2NO MR#: [id number] END OF REPORT Dis: Sta: ADM INChemistry - Ojcpotjy9948-99-65 05:38:00 Test Item Value Reference Range Interpretation Comments Chemistry - Specials (test code = 5.20 ng/mL 7.0-31.4 L FOLATE) Chemistry - Wsuhpmhg0329-24-18 05:34:00 Test Item Value Reference Range Interpretation Comments Chemistry - Specials Greater than 2000 211-911 H (test code = VITB12) pg/mL Joqleikss6690-42-83 05:17:00 Test Item Value Reference Range Interpretation [...] code 8.3 mg/dL 7.8-10.44 N = CA) Nxrhuvadcp8215-69-69 04:50:00 Test Item Value Reference Range Interpretation [...] code = BASO#) 0.0 thou/uL 0.0-0.2 N Gtysttdaq1278-85-50 04:40:00 Test Item Value Reference Range Interpretation [...] code 8.4 mg/dL 7.8-10.44 N = CA) Vastsmvxsn1520-79-03 04:31:00 Test Item Value Reference Range Interpretation [...] code = BASO#) 0.0 thou/uL 0.0-0.2 N Hakwxmdunc6137-17-12 22:52:00 Test Item Value Reference Range Interpretation [...] UAHYAL) Urine Source: Urine Clean CatchReference Lab [id number] 22:51:00 Test Item Value Reference Range Interpretation Comments Reference Lab Not Detected NotDetected Negative (Not Detected) Testing (test results do not preclude code = GCIUG64Y) infectionwi th SARS-CoV-2 virus, and shou ld not be the sole basis of apatient manage ment decision. Consi samuel testing for oth erviruses if clinically indicated.The u se of this assay as an In vitro diagnostic unde r theFDA Emergency Use Authorization ( EUA) is limited tolabor atories that are certif ied under the ClinicalLab oratory Improvement Trudi ndments of 1987 (CLIA), 42 U.S.C.263a, to perform high complexity tests. Reason for Testing: Admission JmxntaelxGicvdhesl0030-08-28 11:25:00 Test Item Value Reference Range Interpretation Comments Chemistry (test 0.010 ng/mL < 0.028 code = TROPI-T) Reference Ra nge 0.00 - 0.028 ng /mL Negative 0.029 - 0.29 ng/mL Indetermi jackie Greater or Equa l to 0.3 ng/mL Strongly suggests [place] [id number] 09:27:00 Test Item Value Reference Range Interpretation Comments Accuchek (test code = ACU) 112 mg/dL 70-100 H Nirwkgbrxs7552-57-53 05:39:00 Test Item Value Reference Range Interpretation [...] (test code = Appears Decreased A PCOMMENT) Dubppjbpe3063-52-43 05:12:00 Test Item Value Reference Range Interpretation [...] code 30 U/L 8-55 N = ALT) Ibthiqpnnav5999-03-03 20:33:00 Test Item Value Reference Range Interpretation [...] 3.0 - 4.0 CRITICAL: > 4.0 Anticoagulant? XEYRTojomoyev8109-88-12 16:15:00 Test Item Value Reference Range Interpretation Comments Chemistry (test 0.010 ng/mL < 0.028 code = TROPI-R) Reference Ra nge 0.00 - 0.028 ng /mL Negative 0.029 - 0.29 ng/mL Indetermi jackie Greater or Equa l to 0.3 ng/mL Strongly suggests [place] Fkrqztoid8294-09-81 15:16:00 Test Item Value Reference Range Interpretation [...] code 36 U/L 8-55 N = ALT) Bapmvizzl9541-50-80 15:16:00 Test Item Value Reference Range Interpretation Comments Chemistry (test code = DBILI) 2.8 mg/dL 0.1-0.3 H Egmealfce8419-49-47 15:16:00 Test Item Value Reference Range Interpretation Comments Chemistry (test code = LIP) 32 U/L 8-78 N Tphyehtkb3766-24-90 14:37:00 Test Item Value Reference Range Interpretation [...] test does the doctor want? C-REACTIVE PROTEIN (CRP)Uhrbtsxzt9902-25-91 14:37:00 Test Item Value Reference Range Interpretation Comments Chemistry (test code = CRP) 0.60 mg/dL = or < 0.5 H What test does the doctor want? C-REACTIVE PROTEIN (CRP)Eipwtmzutw0638-89-14 14:18:00 Test Item Value Reference Range Interpretation [...] A PCOMMENT) [facility] 1955 [facility] Name: EDDI JONES9 [employer] Phys: Michelle Fierro, RACHEL [address] : 1955 Age: 65 SEX:M [phone] Exam Date: 04/11/21 Status: REG ERAcct: [id number] Loc: ERS Pt Unit #: [id number] Report #: [id number] CC: ED TEMP PROVIDER Michelle Fierro DO CAT SCAN REPORT Order # Category/Exam [id number] CT/CT Abdomen Pelvis W Con ([id number]): . Results CT ABDOMEN AND PELVIS WITH IV CONTRAST 04/11/2021 CLINICAL INFORMATION: Abdominal pain and abdominal distention. Nausea and vomiting. COMPARISON: 06/11/2020 Technique: Multiple contiguous axial CT images are obtained through the abdomen and pelvis with IV contrast. Coronal reformatted images are provided. FINDINGS: Lower Chest: Incomplete visualization of a [...] ducts. This is a stable finding. Common ductdoes not appear to be dilated. Spleen: Enlarged measuring 17.2 cm in craniocaudal dimensions appear P ancreas: within normal limits. Adrenals: within normal limits. Kidneys: Right renal cyst again seen.Left kidney has a normal CT appearance. Bowel: Normal in caliber. A short segment of fluid-filled mildly dilated loops of small bowel seen left abdomen which may be attributable to peristalsis. There is no abrupt transition or findings to suggest evidence of a bowel obstruction. Appendix: The appendixis visualized and normal in caliber. Peritoneum: Small [...] 1408 Transcribed Date/Time:XR Chest 1 View Portable [facility] : 1955 [facility] Pt Name: EDDI JONES [address] Phys: [place] [address] : 1955 Age: 65 SEX:M [phone] Exam Date: 10/07/20 Status: ADM IN Acct: [id number] Loc: 2SW Pt Unit #: [id number] Report #: [id number] CC: VeraHyacinth jaquez MD, MALIK MD IMAGING SERVICES REPORT Order # Category/Exam [id number] RAD/XR Chest 1 View Portable ([id number]): . Results Chest one view HISTORY: Pleural [...] pleural effusion and other findings are stable. ReportedBy: Kaleb Tipton Electronically Signed: 10/07/2020 9:34 AM Reported By: Alma Tipton MD Electronically Signed Date/Time: 10/07/20933 Technologist: Dictated Date/Time: 10/07/20931 Transcribed Date/Time:US [facility]acentesis with [facility] : 1955 [facility] Pt Name: EDDI JONES [facility] [address] Phys: [place] [address] : 1955 Age: 65 SEX:M [phone] Exam Date: 10/06/20 Status: ADM IN Acct: [id number] Loc: 2SW Pt Unit #: [id number] Report #: [id number] CC: MAGALY CORONADO ULTRASOUND REPORT Order # Category/Exam [id number] ULT/US Paracentesis with Imaging ([id number]):. Results Ultrasound-guided paracentesis: HISTORY: Cirrhosis and symptomatic ascites. FINDINGS: Informed consent obtained prior to the procedure. Preprocedural imaging demonstrated intraperitoneal freefluid. An area was marked in the Right lower quadrant , and then meticulously prepped and draped in normalsterile fashion and anesthetized with 1% buffered lidocaine. With direct sonographic guidance, a 19-gauge needle and 5 [place] Yueh catheter were advanced into the abdomen. [...] By: Darvin Jj MD Electronically Signed Date/Time: 10/06/201215 Technologist: Dictated Date/Time: 10/06/20 121 Transcribed Date/Time:CTA Angio Chest W WO Con [facility] : 1955 [facility] Pt Name: EDDI JONES [address] Phys: Michelle Fierro RACHEL [address] : 1955 Age: 65 SEX:M [phone] Exam Date: 10/05/20 Status: REG ER Acct: [id number] Loc: ERS Pt Unit #: [id number] Report #: [id number] CC: Danny Fierro CAT SCAN REPORT Order # Category/Exam [id number] CT/CTA Angio Chest W WO Leonides ([id number]): . Results CT ANGIOGRAM THORAX WITH IV [...] MD Electronically Signed Date/Time: 10/05/20 1609 Technologist: IMAG.TG Dictated Date/Time: 10/05/20 1559 Transcribed Date/Time:XR Chest 1 View Portable [facility] BRYWoosterme: EDDI GUTIERREZ : 1955 [facility] Name: EDDI GUTIERREZ [employer] Phys: [place] [address] : 1955 Age: 65 SEX:M [phone] Exam Date: 10/05/20 Status: REG ERAcct: [id number] Loc: ERS Pt Unit #: [id number] Report #: [id number] CC: Michelle Fierro DO IMAGING SERVICES REPORT Order # Category/Exam [id number] RAD/XR Chest 1 View Portable ([id number]): . Results XR Chest 1 View Portable HISTORY: Dyspnea and chest pain COMPARISON: None FINDINGS: There is a moderate-sized right pleural effusion with adjacent infiltrate/atelectatic change. The left lung is unremarkable. The heart size is normal. No pneumothoraces are seen. IMPRESSION: Moderate-sized right pleural effusion. Reported By:Timothy Salazar MD Electronically Signed Date/Time: 10/05/20 1150 Technologist: MARCIAL Dictated Date/Time: 10/05/20 1149 Transcribed Date/Time:CT Abdomen Pelvis W Con [facility] BR[facility]ANName[facility] : 1955 [facility] Name: [facility]ON[facility] [employer] Phys: Frederick Romero RACHEL Hendrickson [address] : 1955 Age: 65 SEX:M [phone] Exam Date: 06/11/20 Status: REG ER Acct: [id number] Loc: ERS Pt Unit #: [id number] Report #: [id number] CC: Frederick Capone MD CAT SCAN REPORT Order # Category/Exam [id number] CT/CT Abdomen Pelvis W Con ([id number]): . Results CT abdomen and pelvis with IV contrast HISTORY: Abdominal pain. Cirrhosis. FINDINGS: Small amount right pleural fluid. 2.2 cm cyst at the superior pole of the left kidney. Noevidence of urinary tract obstruction. Spleen is enlarged up to 14.7 cm. Distended veins present near the splenic hilum. Partial recanali zation of the umbilical vein. Small focus of dystrophic calcification in the wall of the gallbladderfundus. Irregular contour ofthe liver. No evidence of bowel obstruction. Mild wall thickening and edematous appearance of the colon and, to a lesser extent, the small bowel. Small amount of free fluid present throughout the abdomen. Appendix not inflamed. Dystrophic [...] Date/Time: 06/11/201617 Technologist: GUZMAN Dictated Date/Time: 06/11/20 1611 Transcribed Date/Time:
--- NOTE | 2022-11-16 06:40 | ER ---
Nurse's Notes [facility] Name: Martin Jones Age: 67 yrs Sex: Male : 1955 Arrival Date: 11/16/2022 Time: 05:36 Bed 6 Private MD: Diagnosis: Cellulitis of other parts of limb-left wrist and forearm;Other cirrhosis of liver Presentation: 11/16 05:45 Chief complaint: EMS states: toned out for L wrist pain, warm on palpation, swelling aa9 noted. pt states it just started last night. wheezing on the upper lobes auscultated. Coronavirus screen: Vaccine status: Patient reports being unvaccinated. Ebola Screen: No symptoms or risks identified at this time. Initial Sepsis Screen: Does the patient meet any 2 criteria? No. Patient's initial sepsis screen is negative. Does the patient have a suspected source of infection? Yes: Skin breakdown/wound. Risk Assessment: Do you want to hurt yourself or someone else? Patient reports no desire to harm self or others. Onset of symptoms was November 16, 2022. Care prior to arrival: Medication(s) given: Albuterol Neb x 1. 05:45 Method Of Arrival: EMS: [facility] aa9 05:45 Acuity: CHRIS 3 aa9 Triage Assessment: 05:49 General: Appears comfortable, obese, unkempt, Behavior is calm, cooperative. Pain: aa9 Complains of pain in dorsal aspect of left forearm, left wrist and palmar aspect of left forearm Pain does not radiate. Pain currently is 7 out of 10 on a pain scale. Quality of pain is described as burning, Pain began 1 day ago. Neuro: Level of Consciousness is awake, alert, obeys commands, Oriented to person, place, time, situation. Cardiovascular: Pulses are all present. Respiratory: Airway is patent Respiratory effort is even, unlabored. : No signs and/or symptoms were reported regarding the genitourinary system. Derm: Skin is intact, is fragile, Rash noted that is red, on dorsal aspect of left forearm, left wrist and palmar aspect of left forearm warm upon palpation, pain upon palpation. Historical: - Home Meds: 05:47 gabapentin 100 mg oral capsule [Active]; Lactulose Oral [Active]; Lunesta Oral aa9 [Active]; Spironolactone Oral [Active]; tamsulosin Oral [Active]; Tramadol Oral [Active]; valacyclovir Oral [Active]; Ventolin HFA 90 mcg/actuation Nebulizer HFAA [Active]; - PMHx: 05:47 cirrhosis of liver; HEP C; Pancreatitis; aa9 - PSHx: 05:47 lung; aa9 - Immunization history:: Client reports having NOT received the Covid vaccine. - Social history:: Smoking status: Patient reports the use of cigarette tobacco products, smokes one-half pack cigarettes per day. - Family history:: not pertinent. Screenin:[facility] ED Fall Risk Assessment (Adult) History of falling in the last 3 months, os including since admission No falls in past 3 months (0 pts) Confusion or Disorientation No (0 pts) Intoxicated or Sedated No (0 pts) Impaired Gait No (0 pts) Mobility Assist Device Used No (0 pt) Altered Elimination No (0 pt) Score/Fall Risk Level 0 - 2 = Low Risk. Abuse screen: Denies threats or abuse. Nutritional screening: No deficits noted. Tuberculosis screening: No symptoms or risk factors identified. Vital Signs: 05:45 BP 148 / 77; Pulse 88; Resp 19; Temp 98.5(O); Pulse Ox 96% on R/A; Weight 81.19 kg (R); aa9 Height 5 ft. 6 in. (R); Pain 7/10; 08:45 BP 146 / 81; Pulse 85; Resp 19; Pulse Ox 98% ; os 10:45 BP 145 / 87; Pulse 82; Resp 18; Pulse Ox 97% on R/A; os 14:23 BP 138 / 82; Pulse 79; Resp 18; Temp 98.7; Pulse Ox 98% on R/A; os 05:45 Body Mass Index 28.89 (81.19 kg, 167.64 cm) aa9 05:45 Pain Scale: Adult aa9 ED Course: 05:45 Patient arrived in ED. aa9 05:47 Triage completed. aa9 05:50 Arm band placed on. aa9 05:52 Yadiel Lilly MD is Attending Physician. ok 06:35 Manuel Martinez MD is Hospitalizing Provider. ok 06:47 Inserted saline lock: 20 gauge in right antecubital area, using aseptic technique. aa9 Blood collected. 06:53 Basic Metabolic Panel Sent. aa 06:53 CBC with Diff Sent. aa 06:53 LFT's Sent. aa 06:53 Magnesium Sent. aa 06:53 NT PRO-BNP Sent. aa 06:53 PT-INR Sent. aa 06:53 Troponin HS Sent. aa 06:53 AMMONIA Sent. aa 06:53 Blood Culture Adult (2) Sent. aa 06:53 Lactate w/ 2H reflex if indic. Sent. aa9 07:10 UPPER EXTREMITY VENOUS UNILATE In Process Unspecified. EDMS 07:45 XRAY Chest (1 view) In Process Unspecified. EDMS 07:45 Forearm Left XRAY In Process Unspecified. EDMS 08:59 Randee Thomason, RN is Primary Nurse. os 10:54 Patient has correct armband on for positive identification. Allergy band placed. Bed in os low position. Call light in reach. Side rails up X2. 10:54 No provider procedures requiring assistance completed. Accessed Clean \T\ dry. Dressing os intact. Good blood return. Flushes easily. 16:23 Patient admitted, IV remains in place. ap3 Administered Medications: 08:31 Drug: ceFAZolin IVPB 2 grams Route: IVPB; Infused Over: 30 mins; Site: right os antecubital; 08:31 Drug: Potassium PO Effervescent Tablet 50 mEq Route: PO; os 09:47 Drug: vancoMYCIN IVPB 1 grams Route: IVPB; Infused Over: 2 hrs; Site: right antecubital;os 11:05 Drug: Doxycycline 100 mg Route: IV; Rate: calculated rate; Site: right antecubital; os Medication: 10:53 VIS not applicable for this client. os Outcome: 06:40 Decision to Hospitalize by Provider. ok 16:23 Admitted to Med/surg accompanied by tech. ap3 16:23 Condition: good 16:23 Instructed on the need for admit. 16:23 Patient left the ED. ap3 Signatures: Dispatcher [employer] Yadiel Diaz MD MD cha Prokisch, Amanda RN RN ap3 Allegra Cabral, LISA RN aa9 Randee Thomason, LISA RN os
--- NOTE | 2022-11-16 06:40 | EDPHYS ---
Physician Documentation [facility] Name: Martin Jones Age: 67 yrs Sex: Male : 1955 Arrival Date: 11/16/2022 Time: 05:36 Bed 6 Private MD: ED Physician Yadiel Lilly HPI: 11/16 06:28 This 67 yrs old Male presents to ER via EMS with complaints of left wrist red ok , cellulitis. 06:28 The patient or guardian complains of decreased range of motion, pain. The complaints ok affect the dorsal aspect of left forearm, left wrist and palmar aspect of left forearm. Context: The problem was sustained at an unknown location. Onset: The symptoms/episode began/occurred 2 day(s) ago. Treatment prior to arrival includes: no previous treatment. Modifying factors: The symptoms are alleviated by nothing. remaining still, the symptoms are aggravated by movement, bending arm. Associated signs and symptoms: The patient has no apparent associated signs or symptoms. The patient or guardian reports decreased range of motion, pain, swelling, tenderness. The complaints affect the left wrist diffusely. Context: The problem was sustained at an unknown location. Historical: - Home Meds: 05:47 gabapentin 100 mg oral capsule [Active]; Lactulose Oral [Active]; Lunesta Oral aa9 [Active]; Spironolactone Oral [Active]; tamsulosin Oral [Active]; Tramadol Oral [Active]; valacyclovir Oral [Active]; Ventolin HFA 90 mcg/actuation Nebulizer HFAA [Active]; - PMHx: 05:47 cirrhosis of liver; HEP C; Pancreatitis; aa9 - PSHx: 05:47 lung; aa9 - Immunization history:: Client reports having NOT received the Covid vaccine. - Social history:: Smoking status: Patient reports the use of cigarette tobacco products, smokes one-half pack cigarettes per day. - Family history:: not pertinent. ROS: 06:28 Constitutional: Negative for fever, chills, and weight loss, Eyes: Negative for injury, ok pain, redness, and discharge, ENT: Negative for injury, pain, and discharge, Neck: Negative for injury, pain, and swelling, Cardiovascular: Negative for chest pain, palpitations, and edema, Respiratory: Negative for shortness of breath, cough, wheezing, and pleuritic chest pain, Abdomen/GI: Negative for abdominal pain, nausea, vomiting, diarrhea, and constipation, Back: Negative for injury and pain, : Negative for injury, bleeding, discharge, and swelling, Neuro: Negative for headache, weakness, numbness, tingling, and seizure, Psych: Negative for depression, anxiety, suicide ideation, homicidal ideation, and hallucinations, Allergy/Immunology: Negative for hives, rash, and allergies, Endocrine: Negative for neck swelling, polydipsia, polyuria, polyphagia, and marked weight changes, Hematologic/Lymphatic: Negative for swollen nodes, abnormal bleeding, and unusual bruising. 06:28 MS/extremity: Positive for decreased range of motion, pain, swelling, tenderness, of the dorsal aspect of left forearm, left wrist and palmar aspect of left forearm. Exam: 06:28 Skin: Appearance: Temperature: warm, Moisture: normal moisture, petechiae, not noted, ok ecchymosis, not noted, flushing, not noted, abscess, not appreciated. 06:28 Constitutional: This is a well developed, well nourished patient who is awake, alert, and in no acute distress. Head/Face: Normocephalic, atraumatic. Eyes: Pupils equal round and reactive to light, extra-ocular motions intact. Lids and lashes normal. Conjunctiva and sclera are non-icteric and not injected. Cornea within normal limits. Periorbital areas with no swelling, redness, or edema. ENT: Nares patent. No nasal discharge, no septal abnormalities noted. Tympanic membranes are normal and external auditory canals are clear. Oropharynx with no redness, swelling, or masses, exudates, or evidence of obstruction, uvula midline. Mucous membranes moist. Neck: Trachea midline, no thyromegaly or masses palpated, and no cervical lymphadenopathy. Supple, full range of motion without nuchal rigidity, or vertebral point tenderness. No Meningismus. Chest/axilla: Normal chest wall appearance and motion. Nontender with no deformity. No lesions are appreciated. Cardiovascular: Regular rate and rhythm with a normal S1 and S2. No gallops, murmurs, or rubs. Normal PMI, no JVD. No pulse deficits. Respiratory: Lungs have equal breath sounds bilaterally, clear to auscultation and percussion. No rales, rhonchi or wheezes noted. No increased work of breathing, no retractions or nasal flaring. Abdomen/GI: Soft, non-tender, with normal bowel sounds. No distension or tympany. No guarding or rebound. No evidence of tenderness throughout. Back: No spinal tenderness. No costovertebral tenderness. Full range of motion. Male : Normal genitalia with no discharge or lesions. Neuro: Awake and alert, GCS 15, oriented to person, place, time, and situation. Cranial nerves II-XII grossly intact. Motor strength 5/5 in all extremities. Sensory grossly intact. Cerebellar exam normal. Normal gait. Psych: Awake, alert, with orientation to person, place and time. Behavior, mood, and affect are within normal limits. 06:28 Skin: cellulitis, that is mild, that is moderate, confluent, induration, that is mild is noted. Vital Signs: 05:45 BP 148 / 77; Pulse 88; Resp 19; Temp 98.5(O); Pulse Ox 96% on R/A; Weight 81.19 kg (R); aa9 Height 5 ft. 6 in. (R); Pain 7/10; 08:45 BP 146 / 81; Pulse 85; Resp 19; Pulse Ox 98% ; os 10:45 BP 145 / 87; Pulse 82; Resp 18; Pulse Ox 97% on R/A; os 14:23 BP 138 / 82; Pulse 79; Resp 18; Temp 98.7; Pulse Ox 98% on R/A; os 05:45 Body Mass Index 28.89 (81.19 kg, 167.64 cm) aa9 05:45 Pain Scale: Adult aa9 MDM: 05:52 Patient medically screened. [facility] 06:33 Differential diagnosis: contusion, abrasion. Data reviewed: vital signs, nurses notes, [facility] EMS record, lab test result(s), EKG, radiologic studies, doppler, plain films. Consideration of Admission/Observation Patient was admitted/placed on observation. Escalation of care including admission/observation considered. I considered the following discharge prescriptions or medication management in the emergency department Medications were administered in the Emergency Department. See MAR. Test considered but Not performed: MRI: no mri. Care significantly affected by the following chronic conditions: Liver Disease, pancreatitis, hep c, cirrhosis. 11/16 06:20 Order name: Basic Metabolic Panel; Complete Time: 07:40 [facility] 11/16 06:20 Order name: CBC with Diff; Complete Time: 07:40 [facility] 11/16 06:20 Order name: LFT's; Complete Time: 07:40 [facility] 11/16 06:20 Order name: Magnesium; Complete Time: 07:40 [facility] 11/16 06:20 Order name: NT PRO-BNP; Complete Time: 07:40 [facility] 11/16 06:20 Order name: PT-INR; Complete Time: 07:40 [facility] 11/16 06:20 Order name: Troponin HS; Complete Time: 07:40 [facility] 11/16 06:20 Order name: Lactate w/ 2H reflex if indic.; Complete Time: 07:40 [facility] 11/16 06:20 Order name: Blood Culture Adult (2) 11/16 06:20 Order name: AMMONIA; Complete Time: 07:40 [facility] 11/16 06:27 Order name: Lipase; Complete Time: 07:40 [facility] 11/16 12:21 Order name: Protime (+INR) EDID 11/16 06:20 Order name: XRAY Chest (1 view) [facility] 11/16 06:28 Order name: Forearm Left XRAY [facility] 11/16 07:07 Order name: UPPER EXTREMITY VENOUS UNILATE EDID 11/16 06:20 Order name: EKG; Complete Time: 06:21 [facility] 11/16 06:20 Order name: Cardiac monitoring; Complete Time: 06:53 [facility] 11/16 06:20 Order name: EKG - Nurse/Tech; Complete Time: 09:47 [facility] 11/16 06:20 Order name: IV Saline Lock; Complete Time: 06:47 [facility] 11/16 06:20 Order name: Labs collected and sent; Complete Time: 06:53 [facility] 11/16 06:20 Order name: O2 Per Protocol; Complete Time: 06:47 [facility] 11/16 06:20 Order name: O2 Sat Monitoring; Complete Time: 06:47 [facility] Administered Medications: 08:31 Drug: ceFAZolin IVPB 2 grams Route: IVPB; Infused Over: 30 mins; Site: right os antecubital; 08:31 Drug: Potassium PO Effervescent Tablet 50 mEq Route: PO; os 09:47 Drug: vancoMYCIN IVPB 1 grams Route: IVPB; Infused Over: 2 hrs; Site: right antecubital;os 11:05 Drug: Doxycycline 100 mg Route: IV; Rate: calculated rate; Site: right antecubital; os Disposition Summary: 11/16/22 06:40 Hospitalization Ordered Provider: Manuel Martinez cha Condition: Fair ok Problem: new ok Symptoms: have improved ok Bed/Room Type: Standard ok Hospitalization Status: Observation(11/16/22 07:41) ok Location: Telemetry/MedSurg (observation)(11/16/22 07:41) ok Room Assignment: 206(11/16/22 16:06) [email or web address] Diagnosis - Cellulitis of other parts of limb - left wrist and forearm ok - Other cirrhosis of liver ok Forms: - Medication Reconciliation Form ok - SBAR form ok Signatures: Dispatcher [employer] EDMS Yadiel Lilly MD MD cha Jackson, Kandis [email or web address] Allegra Cabral, RN RN aa9 Randee Thomason RN RN os Corrections: (The following items were deleted from the chart) 07:07 06:21 Extremity Venous [id number] ordered. EDID EDMS 07:41 06:40 Inpatient Admission ok ok 07:41 06:40 Telemetry/MedSurg (Inpatient) ok ok 07:41 06:40 ok ok 16:06 07:41 ok kj1
[2022-11-16] MEDS ORDERED: CEFAZOLIN SODIUM 1 GM/VIAL ONE ×2 (06:56→08:17)
[2022-11-16 07:14] LABS: Absolute Lymphocytes (CBC) 0.5 K/uL (0.7-4.9); Hematocrit 35.8 % (39.6-49.0); Lymphocytes % 12.8 % (15.3-44.8); MCV 91.1 fL (80-100); MPV 7.1 fL (7.6-11.3); RBC Red Blood Cell Count 3.93 M/uL (4.33-5.43)
[2022-11-16 07:19] LABS: Protime INR 1.2
[2022-11-16 07:30] LABS: Albumin 3.4 g/dL (3.4-5.0); Bilirubin Direct 0.5 mg/dL (0-0.2); Bilirubin Total 1.2 mg/dL (0.2-1.0); Magnesium 1.8 mg/dL (1.6-2.4); Protein, Total 7.3 g/dL (6.4-8.2); Troponin High Sensitivity 11.3 pg/mL (<58.9)
--- NOTE | 2022-11-16 08:14 | P.HP ---
Certification for Inpatient Patient admitted to: Observation With expected LOS: <2 Midnights Patient will require the following post-hospital care: None Practitioner: I am a practitioner with admitting privileges, knowledge of patient current condition, hospital course, and medical plan of care. Services: Services provided to patient in accordance with Admission requirements found in Title 42 Section 412.3 of the Code of Federal Regulations Patient History Date of Service: 11/16/22 Reason for admission: Left Forearm Cellulitis History of Present Illness: Mr. Martin Jones is a 67-year-old male who has a past medical history of hepatitis C cirrhosis, benign prostatic hyperplasia, and tobacco use disorder who presents to the [facility] Emergency Department for left forearm cellulitis. He reports that, yesterday evening around 18:00, he began developing left forearm erythema, swelling, and pain. He denies any obvious inciting or alleviating factors. However, he states that he lives at home with several cats as well as a dog. He mentions that, a few days ago, he may have sustained a cat bite to his left forearm. He states that this is a household, vaccinated cat. He describes the pain as pressure/squeezing and grades it a 10/10 in severity. He has not tried take any medications for symptoms. On review of systems, he denies any fevers, chills, headaches, chest pain, palpitations, shortness of breath, abdominal pain, nausea/vomiting, or any other symptoms. He presented to the Emergency Department for further evaluation. Upon presentation, his vital signs were stable. His laboratory studies were notable for a WBC count of 3,700, a platelet count of 43,000, and a potassium of 3.0. Blood cultures x 2 were obtained. His left upper extremity ultrasound revealed, "no evidence of left upper extremity deep venous thrombosis." His left forearm x-ray revealed, "soft tissue swelling is noted about the wrist and forearm. No fracture or dislocation seen." In the Emergency Department, he was given vancomycin and cefazolin. He was admitted to the General Internal Medicine service for further evaluation. Allergies No Known Allergies Allergy (Verified 08/16/22 09:38) Home medications list reviewed: No (He does not know his home medications) Home Medications: Albuterol Sulfate [Albuterol Sulfate 0.083% Neb Soln] 2.5 mg IH TID 05/23/22 Furosemide [Lasix*] 40 mg PO BIDL 05/23/22 Lactulose [Cephulac*] 30 ml PO BID 05/23/22 Rifaximin [Xifaxan] 550 mg PO BID 05/23/22 Albuterol Inhaler [Ventolin Inhaler*] 2 puff IH BID PRN 08/16/22 Amiloride HCl [Midamor*] 1 tab PO DAILY 08/16/22 Quetiapine Fumarate [Seroquel] 2 tab PO BEDTIME 08/16/22 - Past Medical/Surgical History Diabetic: No -: Liver cirrhosis -: Hepatitis C-cured - Family History Family History: Reviewed- Non-Contributory - Family History Father -: Cancer Mother -: Cancer - Social History Smoking Status: Current every day smoker Counseled patient to stop smoking for: less than 10 minutes Alcohol use: No Caffeine use: Yes Review of Systems General: Unremarkable Eyes: Unremarkable ENT: Unremarkable Respiratory: Unremarkable Cardiovascular: Unremarkable Gastrointestinal: Unremarkable Genitourinary: Unremarkable Musculoskeletal: Unremarkable Integumentary: Rash (erythema, pain, swelling - left forearm) Neurological: Unremarkable Lymphatics: Unremarkable Physical Examination - Vital Signs Temperature: 98.5 F Blood Pressure: 148/77 Pulse: 88 Respirations: 19 Pulse Ox (%): 96 - Physical Exam General: Alert, In no apparent distress, Oriented x3 HEENT: Atraumatic, Mucous membr. moist/pink, Sclerae nonicteric Neck: JVD not distended Respiratory: Clear to auscultation bilaterally, Normal air movement Cardiovascular: No edema, Regular rate/rhythm, Normal S1 S2, No gallops, No rubs, No murmurs Gastrointestinal: Normal bowel sounds, Soft and benign, Non-distended, No tenderness, No rebound, No guarding Musculoskeletal: No clubbing Integumentary: Tenderness/swelling (left forearm), Erythema (left forearm), Warmth (left forearm) Neurological: Normal speech, Normal affect - Studies Laboratory Data (last 24 hrs) 11/16/22 06:43: Lipase 70 11/16/22 06:43: PT 13.2 H, INR 1.20 11/16/22 06:43: WBC 3.70 L, Hgb 12.4 L, Hct 35.8 L, Plt Count 43 L 11/16/22 06:43: Sodium 136, Potassium 3.0 L, BUN 15, Creatinine 1.19, Glucose 103, Magnesium 1.8, Total Bilirubin 1.2 H, AST 30, ALT 24, Alkaline Phosphatase 100 Assessment and Plan - Plan # Left Forearm Cellulitis likely due to Infected Cat Bite - Consulted Infectious Diseases and spoke with Dr. Bunch - recommendations appreciated - Consulted General Surgery and spoke with Dr. Knapp - recommendations appreciated - Recommended that he be NPO past midnight - Does not currently meet sepsis criteria - Blood cultures x 2 requested - Started on Vancomycin + Cefazolin in ED - Switched to Ceftriaxone + Doxycycline to cover gram-positive organisms as well as Bartonella [place] - Offered Tdap - however, he declined - Cellulitic area was demarcated - will monitor for signs of improvement/worsening - PRN pain control # Hepatitis C Cirrhosis # Pancytopenia secondary to above - MELD score = 11 (equates to a 6.0 % estimated 3-month mortality) - Reconcile home medications once verified # Tobacco Use Disorder - Ordered nicotine patch - Tobacco cessation counseling provided # Benign Prostatic Hyperplasia - Reconcile home medications once verified Manuel Martinez M.D. - Advance Directives Does patient have a Living Will: No Does patient have a Durable POA for Healthcare: No
[2022-11-16] MEDS ORDERED: POTASSIUM 25 MEQ EFFERV TAB ONE (08:17)
[2022-11-16] MEDS ORDERED: VANCOMYCIN 1 GM/VIAL ONE (08:17)
[2022-11-16] MEDS ORDERED: NA CHLORIDE 0.9% 100 ML ONE ×2 (08:18→11:05)
[2022-11-16] MEDS ORDERED: NA CHLORIDE 0.9% 250 ML ONE (08:18)
--- NOTE | 2022-11-16 08:34 | RAD REPORT ---
EXAM DESCRIPTION: US - UPPER EXTREMITY VENOUS UNILATE - 11/16/2022 7:08 am CLINICAL HISTORY: PAIN Left arm swelling COMPARISON: No comparisons FINDINGS: Left upper extremity venous system was interrogated with Doppler technique. Normal flow, c ompressibility and augmentation was noted. There is no DVT present. IMPRESSION: No evidence of left upper extremity deep venous thrombosis.
--- NOTE | 2022-11-16 08:54 | RAD REPORT ---
EXAM DESCRIPTION: RAD - Forearm Left - 11/16/2022 7:44 am CLINICAL HISTORY: PAIN COMPARISON: No comparisons FINDINGS: Soft tissue swelling is noted about the wrist and forearm. No fracture or dislocation seen .
--- NOTE | 2022-11-16 08:56 | RAD REPORT ---
EXAM DESCRIPTION: RAD - Chest Single View - 11/16/2022 7:44 am CLINICAL HISTORY: COUGH Chest pain. COMPARISON: Chest Single View dated 07/21/2022; Chest Single View dated 05/23/2022; Chest Single View dated 02/05/2022 FINDINGS: Portable technique limits examination quality. Mild interstitial pulmonary edema. The heart is mildly prominent. No displaced fractures. IMPRESSION: Mild CHF.
[2022-11-16] MEDS ORDERED: CEFTRIAXONE 1,000 MG in NA CHLORIDE 0.9% 50 ML IVPB SCH (09:00)
[2022-11-16] MEDS: DOXYCYCLINE 100 MG in NA CHLORIDE 0.9% 100 ML IVPB SCH ×2 (10:00→21:10)
[2022-11-16] MEDS ORDERED: DOXYCYCLINE HYCLATE 100MG INJ ONE (11:04)
[2022-11-16 12:20] LABS: Protime INR 1.25
--- NOTE | 2022-11-16 13:44 | P.CNS ---
Date of Consult: 11/16/22 Reason for Consult: Cellulitis left arm Chief Complaint: Cellulitis left arm History of Present Illness: Patient is a 67 yo male with a medical history of liver cirrhosis, pancreatitis, and HepC who presented to the ED via EMS for complaints of left wrist/forearm redness and swelling. Patient reports he was bitten by his daughter's cat (vaccinated) on the wrist 2 days ago, which began increasing in redness, warmth and tenderness over 24 hours along with feelings of lightheadedness and dizziness. XR of left arm obtained which revealed soft tissue swelling, no fracture or dislocation. No fever or leukocytosis noted upon arrival. He was started on doxycyline in the ED. ID was consulted for left arm cellulitis. Patient was seen in the ED. He is alert and oriented x3, breathing comfortably on room air, not in apparent distress. He reports his left arm is already doing better than this morning. Allergies No Known Allergies Allergy (Verified 08/16/22 09:38) Home medications list reviewed: Yes Home Medications: Albuterol Sulfate [Albuterol Sulfate 0.083% Neb Soln] 2.5 mg IH TID 05/23/22 Furosemide [Lasix*] 40 mg PO BIDL 05/23/22 Lactulose [Cephulac*] 30 ml PO BID 05/23/22 Rifaximin [Xifaxan] 550 mg PO BID 05/23/22 Albuterol Inhaler [Ventolin Inhaler*] 2 puff IH BID PRN 08/16/22 Amiloride HCl [Midamor*] 1 tab PO DAILY 08/16/22 Quetiapine Fumarate [Seroquel] 2 tab PO BEDTIME 08/16/22 - Past Medical/Surgical History Diabetic: No -: Liver cirrhosis -: Hepatitis C-cured - Family History Father Medical History: Cancer Mother Medical History: Cancer - Social History Smoking Status: Current every day smoker Smoking therapy provided: Yes Alcohol use: Yes CD- Drugs: No Caffeine use: Yes Place of Residence: Home Review of Systems 10-point ROS is otherwise unremarkable Gastrointestinal: Nausea (mild) Integumentary: As per HPI Physical Examination General: Alert, In no apparent distress, Oriented x3 HEENT: Atraumatic, Normocephalic Neck: Supple, JVD not distended Respiratory: Diminished Cardiovascular: No edema, Normal pulses Gastrointestinal: Normal bowel sounds, No tenderness, No masses, No rebound, No guarding, Distended Musculoskeletal: No clubbing, No swelling Integumentary: Tenderness/swelling, Erythema, Warmth Neurological: Normal gait, Normal speech, Normal tone, Normal affect Laboratory Data 11/16/22 06:43: Lipase 70 11/16/22 06:43: PT 13.2 H, INR 1.20 11/16/22 06:43: WBC 3.70 L, Hgb 12.4 L, Hct 35.8 L, Plt Count 43 L 11/16/22 06:43: Sodium 136, Potassium 3.0 L, BUN 15, Creatinine 1.19, Glucose 103, Magnesium 1.8, Total Bilirubin 1.2 H, AST 30, ALT 24, Alkaline Phosphatase 100 Microbiology Data - Blood cultures 11/16 pending Imagings Data: - XR Left Arm: Soft tissue swelling of forearm. No fracture or dislocation. Conclusions/Impression: Problem List - Cellulitis, Left Forearm - Hepatic Cirrhosis - Hx Pancreatitis - Hx Hepatitis C - COPD Cellulitis of Left Wrist/Forearm - Bitten by daughter's cat on left wrist. Per patient, cat is fully vaccinated . - Erythema, warmth and mild swelling of left wrist/forearm noted, Well demarcated. - Patient started on Doxycycline in ED. - Afebrile, no leukocytosis - Recommendations - Patient is currently on Doxycycline and Ceftriaxone, continue for now - Consider switching Ceftriaxone to Clindamycin. - Continue to monitor for worsening signs of infection. Will reevaluate tomorrow and adjust antibiotics as appropriate ID will follow up and monitor patient closely. Case discussed with Jeff Flores
[2022-11-16 16:50] VITALS: BMI 28.8
[2022-11-16 16:58] VITALS: O2SAT 98
[2022-11-16] MEDS ORDERED: MAGNESIUM SULFATE 1 gm IVPB 1 GM/100 ML BAG IV ONE (17:00)
[2022-11-16] MEDS ORDERED: POTASSIUM CL SA 10 MEQ TAB PO ONE (17:00)
[2022-11-16] MEDS ORDERED: PNEUMOCOCCAL VACCINE 0.5 ML IMVAC ONE (18:00)
[2022-11-17 03:40] LABS: Absolute Lymphocytes (CBC) 0.5 K/uL (0.7-4.9); Hematocrit 37.2 % (39.6-49.0); Lymphocytes % 13.1 % (15.3-44.8); MCV 91.9 fL (80-100); MPV 7.3 fL (7.6-11.3); RBC Red Blood Cell Count 4.05 M/uL (4.33-5.43)
[2022-11-17 03:53] LABS: Albumin 3.3 g/dL (3.4-5.0); Bilirubin Total 1.4 mg/dL (0.2-1.0); Magnesium 2.3 mg/dL (1.6-2.4); Phosphorus 1.7 mg/dL (2.5-4.9); Potassium 3.7 mEq/L (3.5-5.1); Protein, Total 6.9 g/dL (6.4-8.2)
[2022-11-17] MEDS: DOXYCYCLINE 100 MG in NA CHLORIDE 0.9% 100 ML IVPB SCH (08:26)
[2022-11-17 08:36] VITALS: BP 135/71; TEMP 97.8
[2022-11-17] MEDS ORDERED: CEFTRIAXONE 1,000 MG in NA CHLORIDE 0.9% 50 ML IVPB SCH (09:00)
[2022-11-17] MEDS ORDERED: POTASSIUM PHOS IN 0.9 % NACL 15 MMOL/250 ML BAG IV ONE (09:00)
[2022-11-17] MEDS ORDERED: ALBUTEROL INHALER 60 PUFF/8 GM IH PRN (09:05)
--- NOTE | 2022-11-17 12:02 | P.PN ---
Date of Service: 11/17/22 Chief Complaint: Cellulitis left arm Subjective Patient sitting up on side of bed, breathing comfortably on room air. A&Ox3. No new complaints at this time. Afebrile. Physical Examination Temp Pulse Resp BP Pulse Ox 97.8 F 79 16 135/71 95 11/17/22 08:00 11/17/22 08:00 11/17/22 08:00 11/17/22 08:00 11/17/22 08:00 General: Alert, In no apparent distress, Oriented x3 HEENT: Atraumatic, Normocephalic Neck: Supple, JVD not distended Respiratory: Diminished Cardiovascular: No edema, Normal pulses Gastrointestinal: Normal bowel sounds, No tenderness, No masses, No rebound, No guarding, Distended Musculoskeletal: No clubbing, No swelling Integumentary: Tenderness/swelling, Erythema, Warmth Neurological: Normal gait, Normal speech, Normal tone, Normal affect Laboratory Data - Reviewed Microbiology Data - Blood cultures 11/16: NGTD Imagings Data: - XR Left Arm: Soft tissue swelling of forearm. No fracture or dislocation. Medications List Reviewed: Yes Assessment & Plan Problem List - Cellulitis, Left Forearm - Hepatic Cirrhosis - Hx Pancreatitis - Hx Hepatitis C - COPD Cellulitis of Left Wrist/Forearm - Bitten by daughter's cat (vaccinated) on left wrist - Erythema, warmth and mild swelling of left wrist/forearm noted. Improved since yesterday. - Currently on Doxycycline and Rocephin - Afebrile, no leukocytosis Recommendations Currently on Doxycycline and Rocephin --> switch to Augmentin PO Continue antibiotic for a total of 14 days (currenly on day 2) - Ok to d/c home on Augmentin PO - Have patient follow up with PCP in 2 weeks ID will follow the patient as needed and monitor for worsening signs of infection. Case discussed with Jeff Flores
--- NOTE | 2022-11-17 14:46 | P.DS ---
Admission Date: 11/16/22 Discharge Date: 11/17/22 Disposition: ROUTINE DISCHARGE Discharge Condition: GOOD Reason for Admission: Cellulitis left arm Consultations: 1. Infectious Diseases 2. 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 Martin Jones is a 67-year-old male who has a past medical history of hepatitis C cirrhosis, benign prostatic hyperplasia, and tobacco use disorder who was admitted to the [facility] on 11/16/2022 for left forearm cellulitis. He was admitted to the Medicine service. Upon further evaluation, his left upper extremity ultrasound revealed, "no evidence of left upper extremity deep venous thrombosis." His left forearm x-ray revealed, "soft tissue swelling is noted about the wrist and forearm. No fracture or dislocation seen." He was started on IV antibiotics and Infectious Diseases was consulted. He was evaluated by Dr. Bunch. Given improvement in his cellulitis this morning, Dr. Bunch has cleared him for discharge with an additional 13 days of amoxicillinclavulanate. Additionally, General Surgery was consulted to evaluate for the necessity of wound debridement. He was evaluated by Dr. Knapp, who has cleared him for discharge. He recommended no surgical intervention at this time. A Tdap vaccination was offered; however, Mr. Jones declined. He was also noted to have hyperbilirubinemia and hypophosphatemia. A RUQ ultrasound and repeat phosphate level (after phosphate replacement) was offered to him, but he declined as he wants to be discharged as soon as possible. On 11/17/2022, he was seen on rounds and deemed medically stable for discharge. He was discharged with instructions to schedule follow-up appointments with his PCP (YURI Medina). He was provided a prescription for amoxicillin-clavulanate. He was given the opportunity to ask questions and reported no further questions. Furthermore, all questions were answered to the best of my ability. A copy of this discharge summary will be sent to the above providers to facilitate continuity of care. Today, I personally spent 25 minutes on his case, of which greater than 50% of the time was spent in patient education, counseling, and coordination of care as described above. - Physical Exam General: Alert, In no apparent distress, Oriented x3 HEENT: Atraumatic, Mucous membr. moist/pink, Sclerae nonicteric Neck: JVD not distended Respiratory: Clear to auscultation bilaterally, Normal air movement Cardiovascular: No edema, Regular rate/rhythm, No murmurs Gastrointestinal: Normal bowel sounds, Soft, Non-distended, No tenderness Musculoskeletal: No clubbing Integumentary: Tenderness, swelling, erythema, and warmth of left forearm is much improved compared to yesterday Neurological: Normal speech, Normal affect Vital Signs/Physical Exam: Temp Pulse Resp BP Pulse Ox 97.8 F 79 16 135/71 95 11/17/22 08:00 11/17/22 08:00 11/17/22 08:00 11/17/22 08:00 11/17/22 08:00 Laboratory Data at Discharge: WBC 3.50 thou/uL (4.3-10.9) L 11/17/22 02:24 Hgb 12.9 g/dL (13.6-17.9) L 11/17/22 02:24 Hct 37.2 % (39.6-49.0) L 11/17/22 02:24 Plt Count 50 thou/uL (152-406) L 11/17/22 02:24 PT 13.7 SECONDS (9.5-12.5) H 11/16/22 11:30 INR 1.25 11/16/22 11:30 Sodium 139 mEq/L (136-145) 11/17/22 02:24 Potassium 3.7 mEq/L (3.5-5.1) 11/17/22 02:24 BUN 20 mg/dL (7-18) H 11/17/22 02:24 Creatinine 1.06 mg/dL (0.70-1.30) 11/17/22 02:24 Glucose 104 mg/dL (74-106) 11/17/22 02:24 Phosphorus Cancelled 11/17/22 13:52 Magnesium 2.3 mg/dL (1.6-2.4) 11/17/22 02:24 Total Bilirubin 1.4 mg/dL (0.2-1.0) H 11/17/22 02:24 AST 28 U/L (15-37) 11/17/22 02:24 ALT 24 U/L (16-61) 11/17/22 02:24 Alkaline Phosphatase 96 U/L (45-117) 11/17/22 02:24 Lipase 70 U/L (13-75) 11/16/22 06:43 Home Medications: Albuterol Sulfate [Albuterol Sulfate 0.083% Neb Soln] 2.5 mg IH TID 05/23/22 Furosemide [Lasix*] 40 mg PO BIDL 05/23/22 Lactulose [Cephulac*] 30 ml PO BID 05/23/22 Rifaximin [Xifaxan] 550 mg PO BID 05/23/22 Albuterol Inhaler [Ventolin Inhaler*] 2 puff IH BID PRN 08/16/22 Amiloride HCl [Midamor*] 1 tab PO DAILY 08/16/22 Quetiapine Fumarate [Seroquel] 2 tab PO BEDTIME 08/16/22 Amox/Clavulanate [Augmentin 875-125 Tab*] 875 mg PO BID 13 Days #26 tab 11/17/22 New Medications: Amox/Clavulanate [Augmentin 875-125 Tab*] 875 mg PO BID 13 Days #26 tab Physician Discharge Instructions: 1. Please call and schedule a follow-up appointment with your PCP (YURI Medina) in 3-5 days Diet: AHA Activity: Ad crystal Followup: Miles Medina FNP [OUTSIDE PHYSICIAN] - Time spent managing pt's care (in minutes): 25
--- NOTE | 2022-11-17 18:55 | CON ---
Date of Consultation: 11/17/2022 Diagnosis: Cellulitis of the left arm, status post cat bite. History Of Present Illness: This is a case of a 67-year-old patient with multiple medical problems i ncluding liver cirrhosis, hepatitis C, 2 days ago was bitten by his daughter's cat. Became tender, w arm. He came to the ER. There was a question about possible fluid formation, so a surgical consult was obtained and Infectious Disease. Patient feels better right now. The erythema got better since he was admitted. Allergies: NONE. Past Medical Problems: As above. Medications: Reviewed including Xifaxan, Lasix, albuterol. Family History: Noncontributory. Social History: He smokes. Was advised importance of smoking cessation. He drinks alcohol occasion ally. Review of Systems: He feels better. The temperature in his arm is also down and some just mild discomfort. No nausea. No chest pain. No abdominal pain. Review of Systems: Ten points otherwise unremarkable. Physical Examination: Chest: Clear. Abdomen: Soft and depressible. Extremities: Good capillary refill. In the left forearm, patient has area of erythema with no fluct uance or crepitus. No drainage. Consistent with cellulitis but no abscess at least on clinical eval uation. Good peripheral pulses present. Lymphatics: No lymphadenopathy in the axilla yet. Laboratory Data: WBC count 3.5, hemoglobin of 12.9, INR is 1.25, and potassium is 3.7. Left forearm x-rays show soft tissue swelling. No fracture or dislocation or foreign body seen. Venous study of the left forearm interpreted by Dr. Burton, as no evidence of left lower extremity deep vein thrombosi s. Assessment: This is a 67-year-old patient status post cat bite, with vaccinated cat and with celluli tis of the forearm, but no necrotic tissue seen or abscess at this moment. From the surgical standpo int, we are going to continue with the medical management, Infectious Disease and medical doctors. Jack purdy was advised to follow with my office to see over the next few days if there is any fluctuance that develops or any necrotic tissue that we need to debride. He understood. STEVO/MODL Voice ID: [id number] Report ID: [id number]
[2022-11-17] MEDS ORDERED: Rifaximin 550 MG Tab PO SCH (21:00)
[2022-11-17] MEDS ORDERED: AMOX/K CLAV 875 MG TAB PO SCH (21:00)
[2022-11-17] MEDS ORDERED: LACTULOSE 20 GM/30 ML UCUP PO SCH (21:00)
--- NOTE | 2022-11-18 15:25 | EKG ---
Test Date: 2022-11-16 Test Time: 09:20:58 Chainstitch Binder: [id number] MEASUREMENT RESULTS: Intervals: Rate: 79 NC: 144 QRSD: 88 QT: 400 QTc: 458 [place]: P: 56 NC: 144 QRS: 50 T: 54 INTERPRETIVE STATEMENTS: Normal sinus rhythm Normal ECG Compared to ECG 07/21/2022 06:04:33 ST (T wave) deviation no longer present Myocardial infarct finding no longer present Myocardial infarct finding no longer present Electronically Signed On 11-18-22 15:25:18 CDT by Loyd Esparza
--- NOTE | 2022-11-18 15:25 | EKG ---
Test Date: 2022-11-16 Test Time: 09:21:43 Scientific Manager: [id number] MEASUREMENT RESULTS: Intervals: Rate: 80 NM: 142 QRSD: 88 QT: 402 QTc: 463 [place]: P: 55 NM: 142 QRS: 47 T: 52 INTERPRETIVE STATEMENTS: Normal sinus rhythm Normal ECG Compared to ECG 11/16/2022 09:20:58 No significant changes Electronically Signed On 11-18-22 15:25:10 CDT by Loyd Esparza
--- NOTE | 2022-11-18 15:25 | EKG ---
Test Date: 2022-11-16 Test Time: 09:20:25 Speed Belt Sander: [id number] MEASUREMENT RESULTS: Intervals: Rate: 79 VA: 156 QRSD: 90 QT: 398 QTc: 456 [place]: P: 61 VA: 156 QRS: 48 T: 48 INTERPRETIVE STATEMENTS: Normal sinus rhythm Normal ECG Compared to ECG 11/16/2022 09:19:30 No significant changes Electronically Signed On 11-18-22 15:25:21 CDT by Loyd Esparza
--- NOTE | 2022-11-18 15:25 | EKG ---
Test Date: 2022-11-16 Test Time: 09:19:30 Fruit Press Operator: [id number] MEASUREMENT RESULTS: Intervals: Rate: 79 [place]: 150 QRSD: 88 QT: 402 QTc: 460 [place]: P: 56 DE: 150 QRS: 53 T: 55 INTERPRETIVE STATEMENTS: Normal sinus rhythm Normal ECG Compared to ECG 07/21/2022 06:04:33 ST (T wave) deviation no longer present Myocardial infarct finding no longer present Myocardial infarct finding no longer present Electronically Signed On 11-18-22 15:25:24 CDT by Loyd Esparza
--- NOTE | 2022-11-18 15:25 | EKG ---
Test Date: 2022-11-16 Test Time: 09:22:37 Manager Monitoring: [id number] MEASUREMENT RESULTS: Intervals: Rate: 77 [place]: 98 QRSD: 86 QT: 402 QTc: 454 [place]: P: 48 [place]: 98 QRS: 52 T: 48 INTERPRETIVE STATEMENTS: Sinus rhythm with short [place] Otherwise normal ECG Compared to ECG 07/21/2022 06:04:33 Short [place] interval now present ST (T wave) deviation no longer present Myocardial infarct finding no longer present Myocardial infarct finding no longer present Electronically Signed On 11-18-22 15:25:08 CDT by Loyd Esparza
== END 2022-11-17 15:40 | disposition home or self-care (01) ==
LOC: ER 05:36 → ERHOLD 08:10 → 2ND 16:20
PROVIDERS: ADMIT Internal Medicine; ATTEND Internal Medicine
DX: L03.114 Cellulitis of left upper limb (principal); B19.20 Unspecified viral hepatitis C without hepatic coma; D61.818 Other pancytopenia; F17.210 Nicotine dependence, cigarettes, uncomplicated; N40.0 Benign prostatic hyperplasia without lower urinary tract symptoms; K74.60 Unspecified cirrhosis of liver; J44.9 Chronic obstructive pulmonary disease, unspecified; K85.90 Acute pancreatitis without necrosis or infection, unspecified; W55.01XA Bitten by cat, initial encounter; Y93.9 Activity, unspecified; Z80.9 Family history of malignant neoplasm, unspecified; Z71.6 Tobacco abuse counseling
CPT/HCPCS: 93005 ×5; 87040 ×2; 85025 ×2; 80048; 36415 ×2; 82140; 83735 ×2; 84100; 84132; 85610 ×2; 80076; 83605; 82248; 84484; 83690; 80053; 83880; 71045; 73090; 93971; J3475; J7050; J0696; J0690; G0378

== ENCOUNTER 2022-12-01 07:24 | Emergency (ER) | payer OTHER ==
--- OUTSIDE RECORDS SUMMARY | 2022-12-01 07:39 | XMS REPORT | Continuity of Care Document ---
:[address] [facility] t Address [address] [place] [address] [place] [id number] Care Team Providers Name Role Phone Miles Medina Primary Care Physician Hyacinth Gamez Attending Clinician Unavailable Lexis Bird MA Attending Clinician Unavailable Yue Brower MA Attending Clinician Unavailable Cyrus Donahue MA Attending Clinician Unavailable Jose GONZALEZ, Echo Attending Clinician Unavailable Mariam GONZALEZ, Jacinta Nicolas Attending Clinician Unavailable Cristela Villalobos Attending Clinician Elly Solorzano Attending Clinician [phone] Pob, [facility] Main Attending Clinician Unavailable Eric Hurt MD Attending Clinician ERIC HURT Attending Clinician Unavailable Doctor Unassigned, [place] Attending Clinician Unavailable Tian Coulter MD Attending Clinician Unavailable JHON AGUIRRE Attending Clinician Unavailable Timothy MCKENZIE, Jhon Jasmine Attending Clinician Everette MCKENZIE, Araceli Andujar Attending Clinician Scarlet Fritz MD Attending Clinician ANNETTE ELI Attending Clinician Unavailable Cleve TAX LAWYER, Mary Ware Attending Clinician Kaye Baez MD Attending Clinician VIVI BELL Attending Clinician Unavailable CHON ROLON Attending Clinician Unavailable Earl PATINO, Vivi Atkins Attending Clinician [phone] Juan GONZALEZ, Sulma Hong Attending Clinician Unavailable ARACELI AMATO Attending Clinician Unavailable 3, [facility] Terrence Mr Attending Clinician Unavailable Gilberto WELCH, Justin Flores Attending Clinician Earl PATINO, Vivi Attending Clinician Ross Manzano RPH Attending Clinician Unavailable Dk Grijalva RD Attending Clinician Unavailable Franco MCKENZIE, Luis Ceballos Attending Clinician Rios Arndt LCSW Attending Clinician Unavailable Yady Caldwell Attending Clinician Unavailable Kamala Lobo RN Attending Clinician Unavailable Zulma MCKENZIE, Manuel Lakhani Attending Clinician [phone] Aida MCKENZIE, Keyana Resendiz Attending Clinician [phone] Tk Rabago MD Attending Clinician [phone] Suyapa Webb MD Attending Clinician SUYAPA WEBB Attending Clinician Unavailable Milena Swartz MD Attending Clinician Renetta Burnette CRNA Attending Clinician [phone] SCARLET FRITZ Attending Clinician Unavailable KIRT JIANG [...] Expiration Date S alejandra MEDICARE PART A [id number] 2021 \\T\\ B - MEDICARE 00:00:00 YOSEF DE LA ROSA - [id number] 2021 MCR SUPP 00:00:00 Problems Condition Condition Condition Status Onset Resolution Last Treating Co mments Source Name Details Category Date Date Treatment Clinician Date Frailty Frailty Disease [facility] 00 [place] Tobacco Tobacco Disease Active [facility] abuse abuse 9[facility]21 [facility] 00:[facility]: Medical 00 [place] Sarcopenia Sarcopenia Disease Active [facility] 00:[facility]: Medical 00 [place] COPD COPD Disease Recurre Last [facility] (chronic (chronic nce 8-17 Ass[facility] Ruth es obstructiv obstructiv 00:00: t & Plan: Medical e e 00 [facility] pulmonary pulmonary g of this disease) disease) note might be different from the original. He has a history of lung surgery (s/p thoracoto my in September 2021 at OSH), asthma, and COPD. He will require Pulmonolo gy clearance prior to listing for liver transplan t. Screening Screening Disease Recurre [facility] for for nce 8[facility]17 [facility] varices varices 00:00: Medical 00 [place] Pre-transp Pre-transp Disease Active Last [facility] lant lant 8-17 [facility] evaluation evaluation 00:00: t & Plan: Medical for liver for liver [address] [place] [address] enter transplant transplant g of this note might be different from the original. He is an acceptabl e candidate for liver transplan t pending further testing and formal review at [facility]. History of History of Disease Active [facility] hepatitis hepatitis 03-08 [facility] C C 00:00: Medical 00 [place] History of History of Disease Active [facility] thoracotom thoracotom 03-08 Lucretia yessy y y 00:00: Medical 00 [place] Insomnia Insomnia Disease Active [facility] 00:[facility]: Medical [address] [place] [address] Incarcerat Incarcerat Disease Active Last [facility] ed [facility] 02[facility]10 [facility] umbilical 00:00: t & Plan: M edical hernia hernia [address] [place] [address] g of this note might be different from the original. He is s/p umbilical hernia repair with ACS on 02/13/22. Remains with bella in place. Continue to follow up as scheduled . Other Other Disease Recurre Last [facility] cirrhosis cirrhosis nce 02-09 Assessmen L ukes of liver of liver 00:00: t & Plan: Med ical [address] [place] [address] g of this note might be different from the original. 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 MELD is 10. Continue with evaluatio n for liver transplan t. Portal Portal Disease Recurre [facility] hypertensi hypertensi nce 02-09 Lucretia kes on on 00:00: Medical [address] [place] [address] Hepatic Hepatic Disease Recurre [facility] encephalop encephalop nce 02-09 [facility]ia kes athy athy 00:00: Medical 00 [place] Other Other Disease Active Last [facility] ascites ascites 02-09 [facility] 00:00: t & Plan: Medical [address] [place] [address] g of this note might be different from the original. He has a history of ascites requiring large volume paracente sis. He appears mildly distended in clinic today. Continue to follow up with hepatolog y for managemen t and treatment . Alcohol Alcohol Disease Active Last [facility] use use 02-09 [facility] 00:00: t & Plan: Medical [address] [place] [address] g of this note might be different from the original. Denies recent alcohol use. PETH negative on 02/16/22. Generalize Generalize Disease Active [facility] d d 02-09 [place] abdominal abdominal 00:00: Medi lino pain pain 00 Center Acute Acute Disease Active [facility] abdominal abdominal 7-21 [facility] s pain pain 00:00: [address] Nonrheumat Nonrheumat Disease Active U nivers ic aortic ic aortic 3-18 ity of valve valve 00:00: [place] stenosis stenosis 00 [facility] Branch NSVT NSVT Disease Active Univers (nonsustai [...] kidney 3-17 ity of injury) injury) 00:00: [place] [address] Medical Branch Chronic Chronic Disease Active Univers diastolic diastolic 3-17 ity of congestive congestive 00:[place] heart heart 00 Medical failure failure Branch Other Other Disease Active Univers cirrhosis cirrhosis 3-17 ity of of liver of liver 00:00: [place] [address] Medical Branch Pleural Pleural Disease Active Univers effusion effusion 3-17 ity of 00:00: [place] [address] Medical Branch Elevated Elevated Disease Active Unive rs brain brain 3-17 ity of natriureti natriureti 00:00: [place] c peptide c peptide 00 [facility] lino (BNP) (BNP) Branch level level Pneumonia Pneumonia Disease Active Uni vers 3-16 ity of 00:00: [place] Medical Branch Allergies, Adverse Reactions, Alerts Allergy Allergy Status Severity Reaction(s) Onset Inactive Treating Comm ents Source Name Type Date Date Clinician ADHESIVE DRUG Active Med Other-Cmnt 2021-07 Univ ers TAPE-EN 0-06 ity of ICONES 00:00: [place] Medical Branch Adhesive Propensi Active Other - See 2021-07 Patient Univers Tape-En ty to comments 0-06 gets skin ity of icones adverse 00:00: tears [place] reaction 00 from tape Medic al s other Branch than paper No Known DA Active U [facility] Allergie 3-22 Clear s 00:00: [address] No Known DA Active U [facility] Allergie 3-16 [facility] 00:00: St 00 Reid Hendrickson No Known DA Active U 2019-[address] [facility] Allergie 1-20 [facility] s 00:00: St 00 Reid Hnedrickson NO KNOWN Allergy Active [facility]ERG[facility] NO KNOWN Drug Active [facility] ity of S [facility] Social History Social Habit Start Date Stop Date Quantity Comments Source History of tobacco Cigarette Smoker [facility] History SDOH [facility] Alcohol Comment Medical C enter History SDOH [facility] Alcohol Std Drinks [facility] History SDOH [facility] Alcohol Binge Medical [address] Alcohol intake 2022-08-30 2022-08-[address] Ruth es 00:00:00 00:00:00 non-drinker Medical Cente r (finding) Exposure to 2022-06-12 2022-06-22 Not sure [facility]-CoV-2 (event) 00:00:00 11:34:00 [facility] Cigarettes smoked 2022-06-22 2022-06-22 Univers ity of current (pack per 00:00:00 00:00:00 ) - Reported Branch Tobacco use and 2022-02-09 2022-02-09 [address] [facility] exposure 00:00:00 00:00:00 non-user Medical Center History SDOH 2022-02-09 2022-02-[address] [facility] Alcohol Frequency 00:00:00 00:00:00 [facility] Center Tobacco Comment 2022-02-09 2022-02-09 [address] [facility] 00:00:00 00:00:00 day [facility] Center Sex Ass[birth year] [facility] 00:00:00 00:00:00 Medicine Smoking Status Start Date Stop Date Source Tobacco smoking consumption [facility] unknown Smokes tobacco daily 2022-02-09 00:00:00 [facility] Medications Ordered Filled Start Stop Current Ordering Indication Dosage Frequency Signature Comments Components Source Medication Medication Date Date Medication? Clinician (SIG) Name Name AMILoride Yes Other TAKE 1 [facility] ([facility]) 5 3-07 cirrhosis TABLET BY [facility]ukes MG tablet 00:00: of liver MOUTH Med ical 00 (HCC) EVERY DAY Center FOR 30 DAYS AMILoride 2022-0 Yes Other TAKE 1 [facility] ([facility]) 5 3-07 cirrhosis TABLET BY [facility] MG tablet 00:00: of liver MOUTH Med ical 00 (HCC) EVERY DAY Center FOR 30 DAYS albuterol 2023-0 Yes 1{puff} Inhale [address] HFA 2-08 puff by Lukes (VENTOLIN 08:55: mouth via Med ical HFA) 90 33 inhaler Center mcg/actuati every 6 on inhaler (six) hours as needed for Wheezing. rifAXIMin 3-0 Yes 550mg Q.5D Take [address] (Xifaxan) 2-08 mg by [facility]ukes 550 mg Tab 08:55: mouth 2 Medi lino 33 (two) Center times daily. albuterol 202-0 Yes 1{puff} Inhale [address] HFA 2-08 puff by [facility]ukes (VENTOLIN 08:55: mouth via Med ical HFA) 90 33 inhaler Center mcg/actuati every 6 on inhaler (six) hours as needed for Wheezing. rifAXIMin 3-0 Yes 550mg Q.5D Take [address] (Xifaxan) 2-08 mg by [facility]ukes 550 mg Tab 08:55: mouth 2 Medi lino 33 (two) Center times daily. ergocalcife 2023-0 2023- No [id number] Q7D Take [address] rol 2-08 04-27 capsule [facility]ukes (Vitamin 00:00: 23:59 (50,000 Medic al D2) 1,250 00 :00 Units Center mcg (50,000 total) by unit) mouth once capsule a week for 12 doses. ergocalcife 2023-0 2023- No [id number] Q7D Take [address] rol 2-08 04-27 capsule [facility]ukes (Vitamin 00:00: 23:59 (50,000 Medic al D2) 1,250 00 :00 Units Center mcg (50,000 total) by unit) mouth once capsule a week for 12 doses. hydrOXYchlo 3-0 Yes Take by [facility] roQUINE 1-30 mouth. [facility]ukes (PLAQUENIL) 00:00: Medica l 200 mg 00 Center tablet predniSONE 2022-0 Yes Take by [facility] (DELTASONE) 1-30 mouth. [facility]ukes 5 MG tablet 00:00: Medica l 00 Center hydrOXYchlo 2022-0 Yes Take by [facility] roQUINE 1-30 mouth. [facility]ukes (PLAQUENIL) 00:00: Medica l 200 mg 00 Center tablet predniSONE 2022-0 Yes Take by [facility] (DELTASONE) 1-30 mouth. [facility]ukes 5 MG tablet 00:00: Medica l 00 Center SEROqueL 25 2022-0 Yes Take by [facility] mg tablet 1-24 mouth. [facility]ukes 00:00: Medical 00 Center SEROqueL 25 2022-0 Yes Take by [facility] mg tablet 1-24 mouth. [facility] 00:00: Medical 00 [place] lactated 2021-07 Yes 1000mL at 42 Univer [...] 4mg 4 mg, Slow Univers (ZOFRAN 2-07 12-07 IV Push, ity of (PF)) 17:14: 19:16 PRN, 1 [place] injection 4 55 :17 dose, Medical mg Starting Branch on Sun06/28/22 at 1114, Until Sun06/28/22 at 1316, Routine, Nausea and Vomiting (N/V), PACU dexamethaso 2021-07- No PRN, Unive rs ne 08-29 Starting ity of (DECADRON 15:51: 16:40 on Wed [place] PHOSPHATE) 00 :12 06/28/22 at Med ical injection 0951, Branch Until Sun06/28/22 at 1040, Routine, Intra-op ceFAZolin 2021-07- No PRN, Univers (ANCEF) 08-29 Starting ity of injection 15:51: 16:40 on Wed [place] 00 :12 06/28/22 at Medical 0951, Branch Until Sun06/28/22 at 1040, ENRIQUE, Intra-op carbachoL 2021-07- No PRN, Univers (MIOSTAT) 08-29 Starting ity o f 0.01 % 15:51: 16:40 on Wed [place] intraocular 00 :12 06/28/22 at Md dical injection 0951, Branch Until Sun06/28/22 at 1040, Routine, Intra-op chondroitin 2021-07- No PRN, Unive rs sulf-sod 08-29 Starting ity of hyaluronate 15:47: 16:40 on Wed [place] as (DUOVISC 00 :12 06/28/22 at Medic al VISCO 0947, Branch ELASTIC) Until Wed intraocular 06/28/22 at injection 1040, Routine, Intra-op water for 2021-07- No PRN, Univers irrigation 08-29 Starting ity of irrigation 15:47: 16:40 on Wed [place] solution 00 :12 22 at Medic al 0947, Branch Until Sun06/28/22 at 1040, Routine, Intra-op sodium 2021-07- No PRN, Univers chloride 08-29 Starting ity of (NS) 15:46: 16:40 on Wed [place] injection 00 :12 06/28/22 at Medi lino 0946, Branch Until Sun06/28/22 at 1040, Routine, Intra-op neomycin-po 2021-07- No PRN, Unive rs lymyxin-dex 08-29 Starting ity of amethasone 15:46: 16:40 on Wed [place] (MAXITROL) 00 :12 06/28/22 at Med ical 3.5 0946, Branch mg/g-10,000 Until Sun unit/g-0.1 06/28/22 at % 1040, ophthalmic Routine, ointment Intra-op Hyaluronida 2021-07- No PRN, Unive rs se, Human 08-29 Starting ity o f Recomb. 15:46: 16:40 on Sun [place] (HYLENEX) 00 :12 06/28/22 at Medi lino injection 0946, Branch Until Sun06/28/22 at 1040, Routine, Intra-op eye block 2021-07- No PRN, Univers syringe 11 08-29 Starting ity of mL 15:45: 16:40 on Sun [place] 00 :12 06/28/22 at [facility] 0945, Branch Until Sun06/28/22 at 1040, Intra-op EPINEPHrine 2021-07- No PRN, Unive rs 1:1,000 (1 08-29 Starting ity of mg/mL) 15:44: 16:40 on Sun (ADRENALIN) 00 :12 06/28/22 at Md dical injection 0944, Branch Until Sun06/28/22 at 1040, Routine, Intra-op balanced 2021-07- No PRN, Univers salt irrig 08-29 Starting ity of soln comb1 15:43: 16:40 [place] Sun [place] (BSS PLUS) 00 :12 06/28/22 at [facility] ical ophthalmic 0943, Branch solution Until Sun 500 mL bag 06/28/22 at 1040, Routine, Intra-op cyclopent 2021-07- No .5mL 0.5 mL, Univ ers 1%-tropic 08-29 Right Eye, ity of 1%-phenyl 14:30: 14:39 ONCE, 1 [place] 2.5%-ketor 00 :00 dose, On Medic al 0.5% Sun [place] (MYDRIATIC 06/28/22 at #5) 0830, ophthalmic Routine, solution DSU Pre-op syringe 0.5 mL lactated 2021-07- No 1000mL at 42 Unive rs ringers IV 08-29- mL/hr, ity of infusion 14:30: 14:40 1,000 mL, [place] 1,000 mL 00 :00 IV Medical Infusion, Branch ONCE, 1 dose, On Sun06/28/22 at 0830, Routine, DSU Pre-op cyclopent 2021-07- No .5mL 0.5 mL, Univ ers 1%-tropic 2 12-07 Right Eye, ity of 1%-phenyl 14:30: 14:39 ONCE, 1 [place] 2.5%-ketor 00 :00 dose, On Medic al 0.5% Sun Branch (MYDRIATIC 06/28/22 at #5) 0830, ophthalmic Routine, solution DSU Pre-op syringe 0.5 mL lactated 2021-07- No 1000mL at 42 Unive rs ringers IV 2 12-07 mL/hr, ity of infusion 14:30: 14:40 1,000 mL, [place] 1,000 mL 00 :00 IV Medical Infusion, Branch ONCE, 1 dose, On Sun06/28/22 at 0830, Routine, DSU Pre-op finasteride 2021-07 Yes 5mg Take 5 mg U nivers 5 mg tablet 2-07 by mouth ity of 11:16: daily. [address] albuterol 2021-07 Yes 1{ampul Use 1 Univ ers 2.5 mg/0.5 2-07 e} Ampule as ity of mL 11:16: directed 3 [place] nebulizer 16 (three) Medical solution times Branch daily as needed for Wheezing. finasteride 2021-07 Yes 5mg Take 5 mg U nivers 5 mg tablet 2-07 by mouth ity of 11:16: daily. [address] albuterol 2021-07 Yes 1{ampul Use 1 Univ ers 2.5 mg/0.5 2-07 e} Ampule as ity of mL 11:16: directed 3 [place] nebulizer 16 (three) Medical solution times Branch daily as needed for Wheezing. finasteride 2021-07 Yes 5mg Take 5 mg U nivers 5 mg tablet 2-07 by mouth ity of 11:16: daily. [address] albuterol 2021-07 Yes 1{ampul Use 1 Univ ers 2.5 mg/0.5 2-07 e} Ampule as ity of mL 11:16: directed 3 [place] nebulizer 16 (three) Medical solution times Branch daily as needed for Wheezing. finasteride 2021-07 Yes 5mg Take 5 mg U nivers 5 mg tablet 2-07 by mouth ity of 11:16: daily. [address] albuterol 2021-07 Yes 1{ampul Use 1 [...] 5 mg U nivers 5 mg tablet 2- by mouth ity of 12:05: daily. [address] neomycin-po 2021-07- No PRN, Unive rs lymyxin-dex 08-07 Starting ity of amethasone 15:45: 16:04 on Sun [place] (MAXITROL) 00 :50 06/07/22 Medic al [...] ity of (DECADRON 15:33: 16:04 on Sun [place] PHOSPHATE) 00 :50 06/07/22 Medic al injection [...] ity of mg/mL) 15:29: 16:04 on Sun [place] (ADRENALIN) 00 :50 06/07/22 Medi lino injection [...] ity of (NS) 15:21: 16:04 on Sun [place] injection 00 :50 06/07/22 Medica l [...] 00 :56 dose, On Medic al 0.5% [facility] (MYDRIATIC 06/07/22 #5) at 0815, ophthalmic Routine, solution DSU Pre-op syringe 0.5 mL lactated 2021-07- No 1000mL at 42 Unive rs ringers IV 08-07 mL/hr, ity of infusion 14:15: 15:13 1,000 mL, [place] 1,000 mL 00 :56 IV Medical Infusion, Branch ONCE, 1 dose, On Sun06/07/22 at 0815, Routine, DSU Pre-op cyclopent 2021-07- No .5mL 0.5 mL, Univ ers 1%-tropic 08-07 11-16 Left Eye, ity of 1%-phenyl 14:15: [...] 1-16 by mouth ity of 10:35: daily. [address] albuterol 2021-07 Yes 1{ampul Use 1 Univ ers 2.5 mg/0.5 1-16 e} Ampule as ity of mL 10:35: directed 3 [place] nebulizer 23 (three) Medical solution times Branch daily as needed for Wheezing. finasteride 2021-07 Yes 5mg Take 5 mg U nivers 5 mg tablet 1-16 by mouth ity of 10:35: daily. [address] albuterol 2021-07 Yes 1{ampul Use 1 Univ ers 2.5 mg/0.5 1-16 e} Ampule as ity of mL 10:35: directed 3 [place] nebulizer 23 (three) Medical solution times Branch daily as needed for Wheezing. finasteride 2021-07 Yes 5mg Take 5 mg U nivers 5 mg tablet 1-16 by mouth ity of 10:35: daily. [address] albuterol 2021-07 Yes 1{ampul Use 1 Univ ers 2.5 mg/0.5 1-16 e} Ampule as ity of mL 10:35: directed 3 [place] nebulizer 23 (three) Medical solution times Branch daily as needed for Wheezing. albuterol 2021-07 Yes 1{ampul Use 1 Univ ers 2.5 mg/0.5 1-16 e} Ampule as ity of mL 10:35: directed 3 [place] nebulizer 23 (three) Medical solution times Branch daily as needed for Wheezing. OLANZapine 2021-07 Yes 1{tbl} Take 1 Uni vers 2.5 mg 1-04 tablet by ity of tablet 00:00: mouth in [place] 00 the Medical morning. Branch OLANZapine 2021-07 Yes 1{tbl} Take 1 Uni vers 2.5 mg 1-04 tablet by ity of tablet 00:00: mouth in [place] the Medical morning. Branch OLANZapine 2021-07 Yes 1{tbl} Take 1 Uni vers 2.5 mg 1-04 tablet by ity of tablet 00:00: mouth in [place] the Medical morning. [place] OLANZapine 2021-07 Yes 1{tbl} Take 1 Uni vers 2.5 mg 1-04 tablet by ity of tablet 00:00: mouth in [place] the Medical morning. [place] OLANZapine 2021-07 Yes 1{tbl} Take 1 Uni vers 2.5 mg 1-04 tablet by ity of tablet 00:00: mouth in [place] the Medical morning. [place] OLANZapine 2021-07 Yes 1{tbl} Take 1 Uni vers 2.5 mg 1-04 tablet by ity of tablet 00:00: mouth in [place] the Medical morning. Branch OLANZapine 2021-07 Yes 1{tbl} Take 1 Uni vers 2.5 mg 1-04 tablet by ity of tablet 00:00: mouth in [place] the Medical morning. Branch OLANZapine 2021-07 Yes 1{tbl} Take 1 Uni vers 2.5 mg 1-04 tablet by ity of tablet 00:00: mouth in [place] the Medical morning. [place] BREZTRI 2021-07 Yes 2{puff} Inhale 2 Uni vers AEROSPHERE 0-31 Puffs as ity o f 160-9-4.8 00:00: needed. [place] mcg/actuati 00 Medical on HFAA [place] BREZTRI 2021-07 Yes 2{puff} Inhale 2 Uni vers AEROSPHERE 0-31 Puffs as ity o f 160-9-4.8 00:00: needed. [place] mcg/actuati Medical on [facility] 2021-07 Yes 2{puff} Inhale 2 Uni vers AEROSPHERE 0-31 Puffs as ity o f 160-9-4.8 00:00: needed. [place] mcg/actuati Medical on [facility] 2021-07 Yes 2{puff} Inhale 2 Uni vers AEROSPHERE 0-31 Puffs as ity o f 160-9-4.8 00:00: needed. [place] mcg/actuati Medical on [facility] 2021-07 Yes 2{puff} Inhale 2 Uni vers AEROSPHERE 0-31 Puffs as ity o f 160-9-4.8 00:00: needed. [place] mcg/actuati Medical on [facility] 2021-07 Yes 2{puff} Inhale 2 Uni vers AEROSPHERE 0-31 Puffs as ity o f 160-9-4.8 00:00: needed. [place] mcg/actuati Medical on [facility] 2021-07 Yes 2{puff} Inhale 2 Uni vers AEROSPHERE 0-31 Puffs as ity o f 160-9-4.8 00:00: needed. [place] mcg/actuati Medical on [facility] 2021-07 Yes 2{puff} Inhale 2 Uni vers AEROSPHERE 0-31 Puffs as ity o f 160-9-4.8 00:00: needed. [place] mcg/actuati Medical on [facility] budesonide- Yes 2{puff} Inhale [address] glycopyr-fo 9-29 puffs by Luke s rmoterol 00:00: mouth via Medi lino (ztri inhaler. [place] Aerosphere) 160-9-4.8 mcg/actuati on [facility] budesonide- Yes 2{puff} Inhale [address] glycopyr-fo 9-29 puffs by Luke s rmoterol 00:00: mouth via Medi lino (ztri inhaler. [place] [employer]) 160-9-4.8 mcg/actuati on [facility] rifAXIMin 2022-0 2022- No hepatic 550mg Q.5D Take [address] 550 mg Tab 04-12 encephalopa mg by Lukes 10:34: 00:00 thy mouth 2 Medical 11 :00 (two) Center times daily . rifAXIMin 2021-0 2021- No hepatic 550mg Q.5D Take [address] 550 mg Tab 04-12 encephalopa mg by Lukes 10:34: 00:00 thy mouth 2 Medical 11 :00 (two) Center times daily . rifAXIMin 2021-0 2021- No hepatic 550mg Q.5D Take [address] 550 mg Tab 04-12 encephalopa mg by Lukes 10:34: 00:00 thy mouth 2 Medical 11 :00 (two) Center times daily . rifAXIMin 2021-0 2021- No hepatic 550mg Q.5D Take [address] 550 mg Tab 04-12 encephalopa mg by Lukes 10:34: 00:00 thy mouth 2 Medical 11 :00 (two) Center times daily . rifAXIMin 2021-0 2021- No hepatic 550mg Q.5D Take [address] 550 mg Tab 04-12 encephalopa mg by Lukes 10:34: 00:00 thy mouth 2 Medical 11 :00 (two) Center times daily . spironolact 2-0 Yes 100mg QD Take [address] one 9-19 mg by Lukes (ALDACTONE) 09:50: mouth Medic al 100 MG 48 daily. Center tablet rifAXIMin 2021-0 Yes 550mg Q.5D Take [address] [...] 48 (two) Center times daily. ergocalcife 2022-0 2023- No [id number] Q7D Take [address] rol 04-06 capsule [facility]ukes (Vitamin 00:00: 00:00 (50,000 Medic al D2) 1,250 00 :00 Units Center mcg (50,000 total) by unit) mouth once capsule a week for 12 doses. ergocalcife 2022-0 2023- No [id number] Q7D Take [address] rol 04-06 capsule [facility]ukes (Vitamin 00:00: 00:00 (50,000 Medic al D2) 1,250 00 :00 Units Center mcg (50,000 total) by unit) mouth once capsule a week for 12 doses. ergocalcife 2022-0 2022- No [id number] Take Uni vers rol, 04-06 50,000 ity of vitamin d2, 00:00: 05:59 Units by [place] 1,250 mcg 00 :00 mouth Medical (50,000 weekly. Branch unit) capsule ergocalcife 2-0 2022- No [id number] Take Uni vers rol, 04-06 50,000 ity of vitamin d2, 00:00: 05:59 Units by [place] 1,250 mcg 00 :00 mouth Medical (50,000 weekly. Branch unit) capsule ergocalcife 2-0 2022- No [id number] Take Uni vers rol, 04-06 50,000 ity of vitamin d2, 00:00: 05:59 Units by [place] 1,250 mcg 00 :00 mouth Medical (50,000 weekly. Branch unit) capsule ergocalcife 2-0 2022- No [id number] Take Uni vers rol, 04-06 50,000 ity of vitamin d2, 00:00: 05:59 Units by [place] 1,250 mcg 00 :00 mouth Medical (50,000 weekly. Branch unit) capsule ergocalcife 2022-0 2022- No [id number] Take Uni vers rol, 04-06 50,000 ity of vitamin d2, 00:00: 05:59 Units by [place] 1,250 mcg 00 :00 mouth Medical (50,000 weekly. Branch unit) capsule ergocalcife 2022-0 202- No [id number] Q7D Take [address] rol 9-15 12-02 capsule [facility] (Vitamin 00:00: 23:59 (50,000 Medic al D2) 1,250 00 :00 Units Center mcg (50,000 total) by unit) mouth once capsule a week for 12 doses. ergocalcife 2021-0 2022- No [id number] Q7D Take [address] rol 9-15 -02 capsule [facility] (Vitamin 00:00: 23:59 (50,000 Medic al D2) 1,250 00 :00 Units Center mcg (50,000 total) by unit) mouth once capsule a week for 12 doses. ergocalcife 2-0 2022- No [id number] Q7D Take [address] [facility] 9-15 -02 capsule [facility] (Vitamin 00:00: 23:59 (50,000 Medic [...] l 05 :00 times Center daily. furosemide 2022-0 Yes 40mg Q.5D Take [...] as on inhaler 00 Medical Branch VENTOLIN 2021-0 Yes 2{puff} Inhale 2 [facility] HFA 90 9-07 Puffs as ity of mcg/actuati 00:00: needed. [place] as on inhaler 00 Medical Branch VENTOLIN 2021-0 Yes 2{puff} Inhale 2 [facility] HFA 90 9-07 Puffs as ity of mcg/actuati 00:00: needed. [place] as on inhaler 00 Medical Branch VENTOLIN 2021-0 Yes 2{puff} Inhale 2 [facility] HFA 90 9-07 Puffs as ity of mcg/actuati 00:00: needed. [place] as on inhaler 00 Medical Branch spironolact 2021-0 Yes [facility] one 9-04 [facility] (ALDACTONE) 00:00: of 100 MG 00 Medicin tablet e spironolact 0 Yes 1{tbl} Take 1 [facility] one 100 mg 9-04 tablet by ity of tablet 00:00: mouth in [place] the Medical morning. Branch spironolact 2021-0 Yes 1{tbl} Take 1 [facility] one 100 mg 9-04 tablet by ity of tablet 00:00: mouth in [place] the Medical morning. Branch spironolact 2021-0 Yes 1{tbl} Take 1 [facility] one 100 mg 9-04 tablet by ity of tablet 00:00: mouth in [place] the Medical morning. Branch spironolact 2021-0 Yes 1{tbl} Take 1 [facility] one 100 mg 9-04 tablet by ity of tablet 00:00: mouth in [place] the Medical morning. Branch spironolact 2021-0 Yes 1{tbl} Take 1 [facility] one 100 mg 9-04 tablet by ity of tablet 00:00: mouth in [place] the Medical morning. Branch spironolact 2-0 Yes 1{tbl} Take 1 [facility] one 100 mg 9-04 tablet by ity of tablet 00:00: mouth in [place] the Medical morning. Branch spironolact 2-0 Yes 1{tbl} Take 1 [facility] one 100 mg 9-04 tablet by ity of tablet 00:00: mouth in [place] the Medical morning. Branch spironolact 2022-0 Yes 1{tbl} Take 1 [facility] one 100 mg 9-04 tablet by ity of tablet 00:00: mouth in [place] the Medical morning. Branch Lactulose 2022-0 Yes [facility] 20 GM/30ML 8-25 [facility] 00:00: of 00 Medicin e lactulose 2022-0 Yes 30mL Take 30 mL [facility] 10 gram/15 8-25 by mouth ity o f mL solution 00:00: in the [facility] morning Medical and 30 mL Branch at noon and 30 mL in the evening. Variable dose lactulose 2022-0 Yes 30mL Take 30 mL [facility] 10 gram/15 8-25 by mouth ity o f mL solution 00:00: in the [facility] Medical and 30 mL Branch at noon and 30 mL in the evening. Variable dose lactulose 2022-0 Yes 30mL Take 30 mL [facility] 10 gram/15 8-25 by mouth ity o f mL solution 00:00: in the [facility] Medical and 30 mL Branch at noon and 30 mL in the evening. Variable dose lactulose 2022-0 Yes 30mL Take 30 mL [facility] 10 gram/15 8-25 by mouth ity o f mL solution 00:00: in the [facility] Medical and 30 mL Branch at noon and 30 mL in the evening. Variable dose lactulose 2022-0 Yes 30mL Take 30 mL [facility] 10 gram/15 8-25 by mouth ity o f mL solution 00:00: in the [facility] Medical and 30 mL Branch at noon and 30 mL in the evening. Variable dose lactulose 2022-0 Yes 30mL Take 30 mL [facility] 10 gram/15 8-25 by mouth ity o f mL solution 00:00: in the [facility] morning Medical and 30 mL Branch at noon and 30 mL in the evening. Variable dose lactulose 2022-0 Yes 30mL Take 30 mL [facility] 10 gram/15 8-25 by mouth ity o f mL solution 00:00: in the [facility] morning Medical and 30 mL Branch at [...] needed for Wheezing. lactulose 2021- No 10g Q.[id number] Take [address] [facility] (CEPHULAC) 8- 08-17 [id number] by mouth 3 [facility] 10 gram 16:54: 00:00 3D (three) Medica l packet 31 :00 times Center daily. lactulose 2021- No 10g Q.[id number] Take [address] [facility] (CEPHULAC) 8-17 08-17 [id number] by mouth 3 [facility] 10 gram 16:54: 00:00 3D (three) Medica l packet 31 :00 times Center daily. lactulose 2021- No 10g Q.[id number] Take [address] [facility] (CEPHULAC) 8-17 08-17 [id number] by mouth 3 [facility] 10 gram 16:54: 00:00 3D (three) Medica l packet 31 :00 times Center daily. lactulose 0 202- No 10g Q.[id number] Take [address] [facility] (CEPHULAC) 8-17 08-17 [id number] by mouth 3 [facility] 10 gram 16:54: 00:00 3D (three) Medica l packet 31 :00 times Center daily. lactulose 2021- No 10g Q.[id number] Take [address] [facility] (CEPHULAC) 03-08 [id number] by mouth 3 [facility] 10 gram 16:54: 00:00 3D (three) Medica l packet 31 :00 times Center daily. eszopiclone Yes TAKE 1 [facility] (LUNESTA) 1 8-17 TABLET BY Col lege MG TABS 00:00: MOUTH of 00 DAILY Medicin IMMEDIATEL e Y BEFORE BEDTIME tramadol Yes 50mg Take 50 mg [place] [facility] (ULTRAM) 50 8-17 by mouth. Col lege MG tablet 00:00: 00 Medicin e traMADoL 2021- No 50mg Take [address] [facility] (ULTRAM) 50 03-08- tablet (50 [facility] mg tablet 00:00: 00:00 mg total) Me dical 00 :00 by mouth Center every 12 (twelve) hours as needed for Pain. Max Daily Amount: 100 mg traMADoL 2021- No 50mg Take [address] [facility] (ULTRAM) 50 03-08- tablet (50 [facility] mg tablet 00:00: 00:00 mg total) Me dical 00 :00 by mouth Center every 12 (twelve) hours as needed for Pain. Max Daily Amount: 100 mg traMADoL 2021- No 50mg Take [address] [facility] (ULTRAM) 50 03-08- tablet (50 L [facility] mg tablet 00:00: [...] 50mg Take [address] [facility] (ULTRAM) 50 02-20 08-11 tablet (50 L [facility]kes mg tablet [...] A e DAY FOR 30 DAYS gabapentin 2022-0 Yes 100mg Take 100 [facility] 100 mg 7-29 mg by ity of capsule 00:00: mouth in [place] [address] the Medical morning Branch and 100 mg at noon and 100 mg in the evening. gabapentin 2022-0 Yes 100mg Take 100 [facility] 100 mg 7-29 mg by ity of capsule 00:00: mouth in [place] [address] the Medical morning Branch and 100 mg at noon and 100 mg in the evening. gabapentin 2022-0 Yes 100mg Take 100 [facility] 100 mg 7-29 mg by ity of capsule 00:00: mouth in [place] [address] the Medical morning Branch and 100 mg at noon and 100 mg in the evening. gabapentin 2022-0 Yes 100mg Take 100 [facility] 100 mg 7-29 mg by ity of capsule 00:00: mouth in [place] [address] the Medical morning Branch and 100 mg at noon and 100 mg in the evening. gabapentin 2022-0 Yes 100mg Take 100 [facility] 100 mg 7-29 mg by ity of capsule 00:00: mouth in [place] [address] the Medical morning [place] and 100 mg at noon and 100 mg in the evening. gabapentin 2022-0 Yes 100mg Take 100 [facility] 100 mg 7-29 mg by ity of capsule 00:00: mouth in [place] [address] the Medical morning Branch and 100 mg at noon and 100 mg in the evening. gabapentin 2022-0 Yes 100mg Take 100 [facility] 100 mg 7-29 mg by ity of capsule 00:00: mouth in [place] [address] the Medical morning [place] and 100 mg at noon and 100 mg in the evening. gabapentin 2022-0 Yes 100mg Take 100 [facility] 100 mg 7-29 mg by ity of capsule 00:00: mouth in [place] [address] the Medical morning Branch and 100 mg at noon and 100 mg in the evening. gabapentin 2022-0 2022- No 100mg Q.[id number] Take [address] [facility] (NEURONTIN) 7-05-18 [id number] capsule [facility] 100 MG 00:00: 23:59 3D (100 mg Medical capsule 00 :00 total) by Center mouth 3 (three) times daily for 90 days. gabapentin 2022-0 2022- No 100mg Q.[id number] Take [address] [facility] (NEURONTIN) 7-29 - [id number] capsule [facility] 100 MG 00:00: 23:59 3D (100 mg Medical capsule 00 :00 total) by Center mouth 3 (three) times daily for 90 days. gabapentin 2021-0 2022- No 100mg Q.[id number] Take [address] [facility] (NEURONTIN) 02-17 [id number] capsule [facility] 100 MG 00:00: 23:59 3D (100 mg Medical capsule 00 :00 total) by Center mouth 3 (three) times daily for 90 days. gabapentin 2021-0 2022- No 100mg Q.[id number] Take [address] [facility] (NEURONTIN) 02-17 [id number] [facility] 100 MG 00:00: 23:59 3D (100 mg Medical capsule 00 :00 total) by Center mouth 3 (three) times daily for 90 days. gabapentin 2021-2021- No 100mg Q.[id number] Take [address] [facility] (NEURONTIN) 02-17 [id number] capsule [facility] 100 MG 00:00: 23:59 3D (100 mg Medical capsule 00 :00 total) by Center mouth 3 (three) times daily for 90 days. tamsulosin 2021- 202- No .4mg QD Take [address] [facility] (FLOMAX) 02-17 capsule [facility] 0.4 mg Cap 00:00: 23:59 (0.4 mg Med ical 24 hr 00 :00 total) by Center capsule mouth daily for 30 days. valACYclovi 2021-2021- No 1000mg Q.[id number] Take [address] [facility] (VALTREX) 02-17 [id number] tablet [facility] 1000 MG 00:00: 23:59 3D (1,000 mg Medi lino tablet 00 :00 total) by Center mouth 3 (three) times daily for 30 days. tamsulosin 2021-0 202- No .4mg QD Take [address] [facility] (FLOMAX) 02-17 capsule [facility] 0.4 mg Cap 00:00: 23:59 (0.4 mg Med ical 24 hr 00 :00 total) by Center capsule mouth daily for 30 days. valACYclovi 2021-0 2022- No 1000mg Q.[id number] Take [address] [facility] (VALTREX) 02-17 [id number] tablet [facility] 1000 MG 00:00: 23:59 3D [...] 30 days. valACYclovi 2022-0 2022- No 1000mg Q.[id number] Take [address] [facility] (VALTREX) 02-17 [id number] tablet [facility] 1000 MG 00:00: 23:59 3D [...] 30 days. valACYclovi 2022-0 2022- No 1000mg Q.[id number] Take [address] [facility] (VALTREX) 02-17 [id number] tablet [facility] 1000 MG 00:00: 23:59 3D [...] 30 days. valACYclovi 2022-0 2022- No 1000mg Q.[id number] Take [address] [facility] (VALTREX) 02-17 [id number] tablet [facility] 1000 MG 00:00: 23:59 3D (1,000 mg Medi lino tablet 00 :00 total) by Center mouth 3 (three) times daily for 30 days. rifAXIMin 202-0 Yes 550mg Take 550 Uni vers (XIFAXAN) [...] and 550 mg in the evening. ipratropium 2021-0 Yes INHALE 1 [facility] (ATROVENT) 7-13 VIAL BY Colleg e 0.02 % 00:00: MOUTH VIA of nebulizer 00 NEBULIZER Medic in solution EVERY 8 e HOURS NEEDED Albuterol 2021-0 Yes [facility] (VENTOLIN 7-04 [place]) 00:00: of 00 Medicin e furosemide 2021-0 Yes TAKE 1 [facility] (LASIX) 40 6-21 TABLET BY [place] ege MG tablet 00:00: MOUTH of 00 EVERY DAY Medicin e furosemide 0 Yes 1{tbl} Take 1 Uni vers 40 mg 6-21 tablet by ity of tablet 00:00: mouth in [place] 00 the Medical morning. Branch furosemide 2021-0 Yes 1{tbl} Take 1 [facility] vers 40 mg 6-21 tablet by ity of tablet 00:00: mouth in [place] 00 the Medical morning. Branch furosemide 2021-0 Yes 1{tbl} Take 1 Uni vers 40 mg 6-21 tablet by ity of tablet 00:00: mouth in [place] 00 the Medical morning. Branch furosemide 2021-0 Yes 1{tbl} Take 1 [facility] vers 40 mg 6-21 tablet by ity of tablet 00:00: mouth in [place] 00 the Medical morning. Branch furosemide 2021-0 Yes 1{tbl} Take 1 [facility] vers 40 mg 6-21 tablet by ity of tablet 00:00: mouth in [place] 00 the Medical morning. Branch furosemide 2021-0 Yes 1{tbl} Take 1 [facility] vers 40 mg 6-21 tablet by ity of tablet 00:00: mouth in [place] 00 the Medical morning. Branch furosemide 2021-0 Yes 1{tbl} Take 1 [facility] vers 40 mg 6-21 tablet by ity of tablet 00:00: mouth in [place] 00 the Medical morning. Branch furosemide 2021-0 Yes 1{tbl} Take 1 Uni vers 40 mg 6-21 tablet by ity of tablet 00:00: mouth in [place] 00 the Medical morning. Branch furosemide 2021-2021- No [id number] 20mg Take 1 [facility] 20 mg 3-20 04-20 tablet by ity of tablet 00:00: 04:59 mouth [place] 00 :00 daily for Medical 30 days. Branch furosemide 2021-0 2021- No [id number] 20mg Take 1 [facility] 20 mg 3-20 04-20 tablet by ity of tablet 00:00: 04:59 mouth [place] 00 :00 daily for Medical 30 days. Branch furosemide 2021-0 2021- No [id number] 20mg Take 1 [facility] 20 mg 3-20 04-20 tablet by ity of tablet 00:00: 04:59 mouth [place] 00 :00 daily for Medical 30 days. Branch levoFLOXaci 2021-2021- No [id number] 750mg Take 1 Univers n 750 mg 3-20 03-24 tablet by ity o f tablet 00:00: 04:59 mouth [place] 00 :00 daily for Medical 3 days. Branch predniSONE 2021- No [id number] 40mg Take 2 [facility] 20 mg 3-20 03-24 tablets by ity of tablet 00:00: 04:59 mouth [place] 00 :00 daily for Medical 3 days. Branch levoFLOXaci 2021- No [id number] 750mg Take 1 Univers n 750 mg 3-20 03-24 tablet by ity o f tablet 00:00: 04:59 mouth [place] 00 :00 daily for Medical 3 days. Branch predniSONE 2021- No [id number] 40mg Take 2 [facility] 20 mg 3-20 03-24 tablets by ity of tablet 00:00: 04:59 mouth [place] 00 :00 daily for Medical 3 days. Branch levoFLOXaci 2021- No [id number] 750mg Take 1 Univers n 750 mg 3-20 03-24 tablet by ity o f tablet 00:00: 04:59 mouth [place] 00 :00 daily for Medical 3 days. Branch predniSONE 2021- No [id number] 40mg Take 2 [facility] 20 mg 3-20 03-24 tablets by ity of tablet 00:00: 04:59 mouth [place] 00 :00 daily for Medical 3 days. Branch finasteride Yes 5mg Take 5 mg U nivers 5 mg tablet 3-19 by mouth ity of 11:37: daily. [address] albuterol Yes 1{ampul Use 1 Univ ers 2.5 mg/0.5 3-19 e} Ampule as ity of mL 11:37: directed 3 [place] nebulizer 16 (three) Medical solution times Branch daily as needed for Wheezing. finasteride Yes 5mg Take 5 mg U nivers 5 mg tablet 3-19 by mouth ity of 11:37: daily. [address] albuterol Yes 1{ampul Use 1 Univ ers 2.5 mg/0.5 3-19 e} Ampule as ity of mL 11:37: directed 3 [place] nebulizer 16 (three) Medical solution times Branch daily as needed for Wheezing. finasteride 2022-0 Yes 5mg Take 5 mg U nivers 5 mg tablet -19 by mouth ity of 11:37: daily. [address] albuterol Yes 1{ampul Use 1 Univ ers 2.5 mg/0.5 3-19 e} Ampule as ity of mL 11:37: directed 3 [place] nebulizer 16 (three) Medical solution times Branch daily as needed for Wheezing. finasteride Yes 5mg Take 5 mg U nivers 5 mg tablet 3-19 by mouth ity of 11:37: daily. [address] albuterol Yes 1{ampul Use 1 Univ [...] Take 45 mL U nivers 10 gram/15 10-08- by mouth. ity of mL (15 mL) 10:02: 00:00 [place] Sol 59 :00 Medical Branch Ipratropium Yes 1{puff} 1 Puff by [facility] -Albuterol 3-19 Inhalation Col [facility]ge 20-100 00:00: route. of MCG/ACT 00 Medicin AERS e albuterol-i Yes [id number] 1{puff} Inhale 1 [facility] pratropium 3-19 Puff every ity of 20-100 00:00: 6 (six) [place] mcg/actuati 00 hours as Medi lino on inhaler needed for [facility] Wheezing or Shortness of Breath. albuterol-i Yes [id number] 1{puff} Inhale 1 [facility] pratropium 3-19 Puff [...] nch Wheezing or Shortness of Breath. albuterol-i 2021-0 Yes [id number] 1{puff} Inhale 1 [facility] pratropium 3-19 Puff every ity of 20-100 00:00: 6 (six) [place] mcg/actuati 00 hours as Medi lino on inhaler needed for Bra nch Wheezing or Shortness of Breath. albuterol-i 2021-0 Yes [id number] 1{puff} Inhale 1 [facility] pratropium 3-19 Puff every ity of 20-100 00:00: 6 (six) [place] mcg/actuati 00 hours as Medi lino on inhaler needed for Bra nch Wheezing or Shortness of Breath. albuterol-i 0 Yes [id number] 1{puff} Inhale 1 [facility] pratropium 3-19 Puff every ity of 20-100 00:00: 6 (six) [place] mcg/actuati 00 hours as Medi lino on inhaler needed for Bra nch Wheezing or Shortness of Breath. spironolact 2021-2021- No [id number] 25mg Take 1 [facility] one 25 mg 3-19 04-19 tablet by ity of tablet 00:00: 04:59 mouth 2 [place] 00 :00 (two) Medical times [place] daily for 30 days. lactulose 2021- No [id number] 30mL Take 30 mL [facility] 10 gram/15 3-19 04-19 by mouth 2 it y of mL solution 00:00: 04:59 (two) [place] 00 :[place] times Medical daily for Branch 30 days. spironolact 2021- No [id number] 25mg Take 1 [facility] one 25 mg 3-19 04-19 tablet by ity of tablet 00:00: 04:59 mouth 2 [place] 00 :00 (two) Medical times [place] daily for 30 days. lactulose 2021- No [id number] 30mL Take 30 mL [facility] 10 gram/15 3-19 04-19 by mouth 2 it y of mL solution 00:00: 04:59 (two) [place] 00 :[place] times Medical daily for Branch 30 days. spironolact 2021- No [id number] 25mg Take 1 [facility] one 25 mg 10-08 tablet by ity of tablet 00:00: 04:59 mouth 2 [place] 00 :00 (two) Medical times Branch daily for 30 days. lactulose 2021- No [id number] 30mL Take 30 mL [facility] 10 gram/15 10-08 by mouth 2 it y of mL solution 00:00: 04:59 (two) [place] 00 :[place] times Medical daily for Branch 30 days. morpHINE Yes 2mg 2 mg, Slow Uni vers injection 2 10-07 IV Push, ity of mg 21:52: Q4HPRN, [place] 48 Starting Medical on Fri Branch 10/07/21 at 1652, Until Discontinu ed, Routine, Pain (scale 7-10) HYDROcodone Yes 1{tbl} 1 tablet, Univers -acetaminop 10-07 Oral, ity of hen (NORCO 21:52: Q6HPRN, [facility] s 5) 5-325 mg 32 Starting Medi [...] 2021- No 40meq 40 mEq, Univers (KLOR-CON 10-0718 Oral, ity of M20) tablet 15:00: 15:05 [place]CE, 1 [place] 40 mEq 00 :00 dose, On Medical Fri Branch 10/07/21 at 1000, Routine levoFLOXaci 2021- No 750mg 750 mg, U nivers n 10-0723 Oral, ity of (LEVAQUIN) 14:00: 13:59 DAILY, [...] Yes 20mg 20 mg, Unive rs (LASIX) 10-06 Oral, ity of tablet 20 14:00: DAILY, [...] Yes 25mg 25 mg, Univ ers one 10-06 Oral, BID, ity of (ALDACTONE) 13:00: First dose [place] tablet 25 00 on [place] Medical mg 10/06/21 at Branch 0800, Until Discontinu ed, Routine NORepinephr No .05ug/k 0.05-0.5 Univers ine 4 mg in 10-0618 g/min mcg/kg/min ity of 0.9% NaCl 11:23: 11:22 ?64 kg [place] 250 mL 29 :29 (12-120 Medical infusion [...] NaCl 0.9% 2021- No 500mL at 999 [facility] ers (NS) bolus 10-06 mL/hr, 500 it y of infusion 07:30: 06:50 mL, IV [place] 500 mL 00 :00 Piggyback, Medical ONCE, 1 Branch dose, On [place] 10/06/21 at 0230, STAT NaCl 0.9% 2021- No 250mL at 999 [facility] ers (NS) bolus 10-06 mL/hr, 250 it y of infusion 06:15: 05:20 mL, IV [place] 250 mL 00 :00 Piggyback, Medical ONCE, 1 Branch dose, On Sun10/06/21 at 0115, STAT ipratropium 0 Yes 3mL 3 mL, Unive rs -albuteroL 10-06 Inhalation ity of (DUONEB) 01:00: , QID, [place] 0.5 mg-3 00 First dose Medic al mg(2.5 mg on Sun Branch base)/3 mL 10/05/21 at nebulizer 1999, solution 3 Until mL Discontinu ed, Routine lactulose Yes 30mL 30 mL, Univer s (CEPHULAC) 10-06 Oral, BID, ity of solution 30 01:00: First dose [place] mL 00 on Sun Medical 10/05/21 at Branch 1999, Until Discontinu ed metoprolol No 12.5mg 12.5 mg, Univers tartrate 10-06 Oral, BID, ity of (LOPRESSOR) 01:00: 06:33 First dose [place] tablet 12.5 00 :56 on Sun Medica l mg 10/05/21 at Branch 2000, Until Discontinu ed, Routine azithromyci 2021- No 500mg 500 mg, IV Univers n 10-06 Piggyback, ity of (ZITHROMAX) 00:15: 13:55 Q24H ABX, [place] 500 mg in 00 :45 3 doses, Medica l NaCl 0.9% First dose Bran ch (NS) 250 mL on Sun VIAL-MATE 10/05/21 at IV 1914, Last piggyback dose on Sun10/07/21 at 1915, Administer over 60 Minutes, 250 mL
Reas on for Anti-Infec tive: Empiric Therapy for Suspected Infection< br>Empiric Therapy Site: Respirator y
Durat ion of therapy: 72 hours cefTRIAXone 2021- No 1000mg 1,000 mg, Univers (ROCEPHIN) 10-06 IV ity of 1,000 mg in 00:15: 13:55 [place], [place] NaCl 0.9% 00 :45 Q24H ABX, Medic al (NS) 50 mL First dose Bra [facility] MINI-BAG on Sun10/05/21 at 191, Until Discontinu ed, Administer over 30 Minutes, 50 mL
Reas on for Anti-Infec tive: Empiric Therapy for Suspected Infection< br>Empiric Therapy Site: Respirator y
Durat ion of therapy: 7 days ipratropium Yes 3mL 3 mL, Unive rs -albuteroL 10-05 Inhalation ity of (DUONEB) 23:28: , Q6HPRN, [place] 0.5 mg-3 11 Starting Medical mg(2.5 mg on Sun)/3 mL 10/05/21 at nebulizer 182, solution 3 Until mL Discontinu ed, Routine, Wheezing, Shortness of Breath NaCl 0.9% 2021- No 1000mL at 999 Uni vers (NS) bolus 10-05-16 mL/hr, ity of infusion 20:27: 20:30 1,000 [...] Medical Infusion, Branch ONCE, 1 dose, On 10/05/21 at 1345, STAT piperacilli 2021- No 3.375g [...] of therapy: 72 hours iopamidol 2021- No [id number] 100mL 100 mL, Univers (ISOVUE 10-05 Intravenou ity o f 370-500 mL) 16:00: 15:59 s, ONCE, 1 [place] injection 00 :00 dose, On Medica l 100 mL Wed Branch 10/05/21 at 1115, Routine doxycycline 0 Yes Twice [place] [facility] (MONODOX) 3-18 Daily [facility] 100 MG 00:00: of capsule 00 Medicin e folic acid 0 Yes Daily [facility] (FOLVITE) 1 3-18 College MG tablet 00:00: of 00 Medicin e finasteride Yes 5mg Take 5 mg [facility] (PROSCAR) 5 3-17 by mouth. Col lege MG tablet 00:00: of 00 Medicin e albuterol 0 Yes 1{puff} 1 Puff by [facility] 108 (90 3-17 Inhalation [facility] base) 00:00: route. of mcg/act 00 Medicin inhaler e lactulose 2019-0 Yes 20g Q.[id number] Take [address] [facility] (CHRONULAC) 9-09 [id number] by mouth 3 [facility] 10 gram/15 00:00: 3D (three) Medi lino mL solution 00 times Center daily. lactulose 2020-0 Yes 20g Q.[id number] Take [address] [facility] (CHRONULAC) 9- [id number] by mouth 3 [facility] 10 gram/15 00:00: 3D (three) Medi lino mL solution 00 times Center daily. lactulose 2020-0 Yes 20g Q.[id number] Take [address] [facility] (CHRONULAC) 9- [id number] by mouth 3 [facility] 10 gram/15 00:00: 3D (three) Medi lino mL solution 00 times Center daily. lactulose 2020-0 Yes 20g Q.[id number] Take [address] [facility] (CHRONULAC) 9- [id number] by mouth 3 [facility] 10 gram/15 00:00: 3D (three) Medi lino mL solution 00 times Center daily. lactulose 2020-0 Yes 20g Q.[id number] Take [address] [facility] (CHRONULAC) 9 [id number] by mouth 3 [facility] 10 gram/15 00:00: 3D (three) Medi lino mL solution 00 times Center daily. Vital Signs Vital Name Observation Time Observation Value Comments Source WEIGHT 2020-10-05 18:15:00 77.899159 kg HEIGHT 2020-10-05 18:15:00 167.64 cm Systolic blood 2022-06-28 17:00:00 116 [facility]Hg[facility] Diastolic blood 2022-06-28 17:00:00 62 mm[Hg] [facility] Heart rate 2022-06-28 17:00:00 79 /min [facility] Respiratory rate 2022-06-28 17:00:00 14 /min [facility] acute hospital Oxygen saturation in 2022-06-28 17:00:00 96 /min [facility] Arterial blood by [place] Medi lino Pulse oximetry [place] Body temperature 2022-06-28 14:37:00 36.28 [place] [facility] Body weight 2022-06-22 18:00:00 71.668 kg [facility] BMI 2022-06-22 18:00:00 25.51 kg/m2 [facility] Systolic blood 2022-06-28 14:37:00 103 mm[Hg] [facility] Diastolic blood 2022-06-28 14:37:00 62 mm[Hg] Unive rsity of pressure [place] [facility] Heart rate 2022-06-28 14:37:00 84 /min [facility] [place] [facility] Body temperature 2022-06-28 14:37:00 36.28 [place] [facility] [place] [facility] Respiratory rate 2022-06-28 14:37:00 21 /min [facility] ers[facility] [place] [facility] Oxygen saturation in 2022-06-28 14:37:00 95 /min University of Arterial blood by [facility] Pulse oximetry Branch Body weight 2022-06-22 18:00:00 71.668 kg [facility] [place] [facility] BMI 2022-06-22 18:00:00 25.51 kg/m2 [facility] [place] [facility] Systolic blood 2022-06-07 16:14:00 87 [...] 96 /min University of Arterial blood by [facility] Pulse oximetry Branch Body temperature 2022-06-07 15:57:00 36.11 [place] [facility] [place] [facility] Body height 2022-05-24 16:10:00 167.6 cm [facility] [place] [facility] Body weight 2022-05-24 16:10:00 66 kg [facility] [place] [facility] BMI 2022-05-24 16:10:00 23.50 kg/m2 [facility] [place] [facility] Systolic blood 2022-06-07 14:14:00 117 mm[Hg] Univer sity of pressure [place] [facility] Diastolic blood 2022-06-07 14:14:00 84 mm[Hg] Unive rsity of pressure [place] [facility] Heart rate 2022-06-07 14:14:00 89 /min [facility] [place] [facility] Body temperature 2022-06-07 14:14:00 36.17 [place] [facility] [place] [facility] Respiratory rate 2022-06-07 14:14:00 18 /min Univ ersity [facility] [place] [facility] Oxygen saturation in 2022-06-07 14:14:00 99 /min University of Arterial blood by [place] [facility] Pulse oximetry Branch Body height 2022-05-24 16:10:00 167.6 cm Universi ty of [place] Medical [place] Body weight 2022-05-24 16:10:00 66 kg Universi ty of [facility] BMI 2022-05-24 16:10:00 23.50 kg/m2 Universi ty [facility] Systolic blood 2022-03-29 19:43:00 111 mm[Hg] [facility] pressure Medicine Diastolic blood 2022-03-29 19:43:00 73 mm[Hg] [facility] Medicine Heart rate 2022-03-29 19:43:00 80 /min [facility] Body height 2022-03-29 19:43:00 170.2 cm [facility] Body weight 2022-03-29 19:43:00 71.215 kg [facility] BMI 2022-03-29 19:43:00 24.59 kg/m2 [facility] HEIGHT 2022-02-09 15:09:00 167.6 cm WEIGHT 2022-02-09 15:09:00 58.968 kg HEIGHT 2022-02-09 15:09:00 167.6 cm WEIGHT 2022-02-09 15:09:00 58.968 kg HEIGHT 2022-02-09 15:09:00 167.6 cm WEIGHT 2022-02-09 15:09:00 58.968 kg Systolic blood 2021-10-08 15:00:00 107 mm[Hg] Univer sity of pressure [facility] Diastolic blood 2021-10-08 15:00:00 67 mm[Hg] Unive rsity of pressure [facility] Heart rate 2021-10-08 15:00:00 89 /min [facility] Respiratory rate 2021-10-08 15:00:00 24 /min [facility] Oxygen saturation in 2021-10-08 15:00:00 96 /min [facility] Arterial blood by [place] [facility] Pulse oximetry Branch Body temperature 2021-10-08 13:56:00 36.56 [facility] Body weight 2021-10-07 09:39:00 65.998 kg [facility] BMI 2021-10-07 09:39:00 23.48 kg/m2 [facility] Body height 2021-10-06 17:32:00 167.6 cm [facility] WEIGHT 2020-10-05 18:15:00 77.338824 kg HEIGHT 2020-10-05 18:15:00 167.64 cm WEIGHT 2020-06-11 22:20:00 68.180399 kg HEIGHT 2020-06-11 22:20:00 167.64 cm Systolic blood 2022-08-30 08:51:00 146 mm[Hg] [facility] Diastolic blood 2022-08-30 08:51:00 78 mm[Hg] [facility] Heart rate 2022-08-30 08:51:00 85 /min [facility] Body temperature 2022-08-30 08:51:00 36.78 [facility] Respiratory rate 2022-08-30 08:51:00 18 /min [facility] Body height 2022-08-30 08:51:00 167.6 cm [facility] Body weight 2022-08-30 08:51:00 78.109 kg [facility] BMI 2022-08-30 08:51:00 27.79 kg/m2 [facility] Oxygen saturation in 2022-08-30 08:51:00 94 /min [facility] Arterial blood by Medical Ce nter Pulse oximetry Systolic blood 2022-06-27 13:49:00 116 mm[Hg] [facility] Diastolic blood 2022-06-27 13:49:00 69 mm[Hg] [facility] Heart rate 2022-06-27 13:49:00 87 /min [facility] Body temperature 2022-06-27 13:49:00 36.83 [facility] Body height 2022-06-27 13:49:00 167.6 cm [facility] Body weight 2022-06-27 13:49:00 73.029 kg [facility] BMI 2022-06-27 13:49:00 25.99 kg/m2 [facility] Oxygen saturation in 2022-06-27 13:49:00 96 /min [facility] Arterial blood by Medical Ce [facility]ter Pulse oximetry Systolic blood 2022-04-10 09:43:00 127 mm[Hg] [facility] Diastolic blood 2022-04-10 09:43:00 74 mm[Hg] [facility] Heart rate 2022-04-10 09:43:00 84 /min [facility] Body temperature 2022-04-10 09:43:00 36.33 [facility] Body weight 2022-04-10 09:43:00 64.275 kg [facility] BMI 2022-04-10 09:43:00 22.40 kg/m2 [facility] Oxygen saturation in 2022-04-10 09:43:00 96 /min [facility] Arterial blood by Medical Ce nter Pulse oximetry Body height 2022-03-09 07:21:00 169.4 cm [facility] Respiratory rate 2022-03-08 13:00:00 18 /min [facility] Procedures Procedure Date / Time Performing Source Performed Clinician PHYSICIAN ORDERS 2022-08-29 Doctor Unassigned, [facility] 06:01:00 [facility] PHACOEMULSIFICATION OF 2022-06-28 Jhon Aguirre [facility] CATARACT WITH INTRAOCULAR 15:57:00 Medica l Branch LENS IMPLANT CBC W/PLT COUNT & AUTO 2022-06-27 [facility] Swartz [facility] DI[facility] 15:43:00 [facility] ALPHA FETOPROTEIN (AFP), 2022-06-[address] [facility] TUM[facility] 15:43:00 [facility] BASIC METABOLIC PANEL 2022-06-[address] [facility] 15:43:00 [facility] HEPATIC FUNCTION PANEL 2022-06-27 Sheridan, Cristela Aranda 15:43:00 [facility] PROTHROMBIN TIME/INR 2022-06-27 Cristela Swartz [facility] 15:43:00 [facility] CBC W/PLT COUNT & AUTO 2022-06-27 Cristela Swartz [facility] DIFFERENTIAL 15:43:00 [facility] ASSIGNMENT OF BENEFITS 2022-06-26 Doctor Unassigned, [facility] 16:45:43 [facility] PHACOEMULSIFICATION OF 2022-06-07 Jhon Aguirre [facility] CATARACT WITH INTRAOCULAR 15:08:00 Medica l [place]any LENS IMPLANT DAY SURGERY - ADC 2022-06-07 Doctor Unassigned, [facility] 06:01:00 [facility] CONSENT/REFUSAL FOR DIAGNOSIS 2022-05-29 Doctor Unassigned, [facility] AND TREATMENT 18:04:17 [facility] CONSENT/REFUSAL FOR DIAGNOSIS 2022-05-29 Doctor Unassigned, [facility] AND TREATMENT 18:04:17 [facility] ASSIGNMENT OF BENEFITS 2022-05-29 Doctor Unassigned [facility] 18:02:11 [facility] ASSIGNMENT OF BENEFITS 2022-05-29 Doctor Unassigned, [facility] 18:02:11 [facility] NOTICE OF BILLING PRACTICES 2022-05-29 Doctor Unassigned, [facility] FOR MEDICARE PATIENTS 18:01:45 [facility] NOTICE OF BILLING PRACTICES 2022-05-29 Doctor Unassigned [facility] FOR MEDICARE PATIENTS 18:01:45 [facility] PATIENT FINANCIAL POLICY 2022-05-29 Doctor Unassigned, [facility] 18:00:08 [facility] PATIENT FINANCIAL POLICY 2022-05-29 Doctor Unassigned, [facility] 18:00:08 [facility] NO SHOW OR MISSED APPOINTMENT 2022-05-29 Doctor Unassigned, [facility] POLICY ACKNOWLEDGEMENT 17:59:39 [facility] NO SHOW OR MISSED APPOINTMENT 2022-05-29 Doctor Unassigned, [facility] POLICY ACKNOWLEDGEMENT 17:59:39 [facility] NOTICE OF PRIVACY PRACTICES 2022-05-29 Doctor Unassigned, [facility] 17:59:01 [facility] NOTICE OF PRIVACY PRACTICES 2022-05-29 Doctor Unassigned, [facility] 17:59:01 [facility] CONSENT/REFUSAL FOR DIAGNOSIS 2022-05-29 Doctor Unassigned, [facility] AND TREATMENT 17:58:37 [facility] CONSENT/REFUSAL FOR DIAGNOSIS 2022-05-29 Doctor Unassigned, [facility] AND TREATMENT 17:58:37 [facility] ASSIGNMENT OF BENEFITS 2022-05-29 Doctor Unassigned, [facility] 17:58:05 [facility] ASSIGNMENT OF BENEFITS 2022-05-29 Doctor Unassigned, [facility] 17:58:05 [facility] AUTHORIZATION FOR RELEASE OF 2022-05-29 [facility] PHI 06:01:00 [facility] AUTHORIZATION FOR RELEASE OF 2022-05-29 Doctor Almassigned, [facility] PHI 06:01:00 [facility] AMB REF TO GEN INT MEDICINE 2022-04-13 [facility] 10:44:26 Medicine BASIC METABOLIC PANEL 2022-04-[address] [facility] 13:35:00 [facility] HEPATIC FUNCTION PANEL 2022-04-[address] [facility] 13:35:00 [facility] CBC W/PLT COUNT & AUTO 2022-04-10 Cleve Mary Ware [facility] DIFFERENTIAL 13:35:00 [facility] PROTHROMBIN TIME/INR 2022-04-10 [address]ie [facility] 13:35:00 [facility] CBC W/PLT COUNT & AUTO 2022-04-10 Cleve Mary Ware [facility] DIFFERENTIAL 13:35:[address] [facility] [address] ABDOMEN/PELVIS WITH IV 2022-04-[address] [facility] CONTRAST 13:08:00 [facility] ECHO W CONTRAST & DOPPLER 2022-03-[address] [facility] 12:44:32 [facility] CAROTID DOPPLER BILATERAL 2022-03-[address] [facility] 12:19:00 [facility] ECG 12-LEAD 2022-03-[address] [facility] 12:06:19 Medical Center BLOOD GAS, ARTERIAL 2022-03-30 Everette, Aracelianjali Andujar [facility] 11:43:00 [facility] XR MANDIBLE 4 VIEWS MIN 2022-03-30 Everette, Aracelianjali Andujar [facility] 10:38:00 [facility] Center XR CHEST 2 VIEWS 2022-03-30 Everette, Aracelianjali Andujar [facility] 10:30:00 Medical Center XR DXA BONE DENSITY STUDY 2022-03-30 Everette, Araceli Andujar [facility] 10:25:00 [facility] MR ABDOMEN WITH & WITHOUT IV 2022-03-30 Everette, Araceli Castillo [facility] CONTR[facility] 07:47:00 [facility] DRUG SCREEN, URINE, 2022-03-08 Everette, Araceli Andujar [facility] TRANSPLANT 12:43:00 [facility] URINALYSIS W/ MICROSCOPIC 2022-03-08 Everette, Araceli Andujar [facility] 12:43:00 [facility] CALCIUM, IONIZED 2022-03-08 Everette, Araceli Andujar [facility] 08:58:00 [facility] HEPATITIS C PCR, QUANTITATIVE 2022-03-08 Everette, Araceli Andujar [facility] 08:58:00 [facility] MISCELLANEOUS LAB ORDER 2022-03-08 Everette, Araceli Andujar [facility] 08:57:00 [facility] COMPREHENSIVE METABOLIC PANEL 2022-03-08 Everette, Araceli Andujar [facility] 08:57:00 [facility] BILIRUBIN, DIRECT 2022-03-08 Everette, Araceli Andujar [facility] 08:57:00 [facility] GAMMA GLUTAMYL TRANSFERASE 2022-03-08 Everette, Araceli Andujar [facility] (GGT) 08:57:00 [facility] MAGNESIUM 2022-03-08 Everette, Araceli Andujar [facility] 08:57:00 [facility] PHOSPHORUS 2022-03-08 Everette, Araceli Andujar [facility] 08:57:00 [facility] CBC W/PLT COUNT & AUTO 2022-03-08 Everette, Araceli Andujar [facility] DIFFERENTIAL 08:57:00 [facility] ACTIN (SMOOTH MUSCLE) 2022-03-08 Everette, Araceli Andujar [facility] ANTIBODY, IGG 08:57:00 [facility] TRANSFERRIN 2022-03-08 Everette, Araceli Andujar [facility] 08:57:00 [facility] IRON, TIBC, % SAT. (WITHOUT 2022-03-08 Everette, [facility] 08:57:00 Medical Center FERRITIN 2022-03-08 Everette, Araceli Andujar [facility] 08:57:00 Medical Center CERULOPLASMIN 2022-03-08 Everette, Araceli Andujar [facility] 08:57:00 Medical Center VITAMIN D, 25-HYDROXY 2022-03-08 Everette, Araceli [facility]dujar [facility] 08:57:00 [facility] Center LIPID PANEL 2022-03-08 Everette, Araceli Andujar [facility] 08:57:00 Medical Center HEMOGLOBIN A1C 2022-03-08 Everette, Araceli Andujar [facility] 08:57:00 Medical Center ETHANOL 2022-03-08 Everette, Araceli Andujar [facility] 08:57:00 [facility] ALPHA FETOPROTEIN (AFP), 2022-03-08 Everette, Araceli Andujar [facility] TUMOR MARKER 08:57:00 [facility] CARBOHYDRATE ANTIGEN 19-9 (CA 2022-03-08 Everette, Araceli Andujar [facility] 19-9) 08:57:00 [facility] CARCINOEMBRYONIC ANTIGEN 2022-03-08 Everette, [facility] (CEA) 08:57:00 [facility] Center ZINC 2022-03-08 Everette, Araceli Andujar [facility] 08:57:00 [facility] URIC ACID 2022-03-08 Everette, Araceli Andujar [facility] 08:57:00 Medical Center TSH 2022-03-08 Everette, Araceli Andujar [facility] 08:57:00 Medical Center T3 2022-03-08 Everette, Araceli Andujar [facility] 08:57:00 Medical Center T4 2022-03-08 Everette, Araceli Andujar [facility] 08:57:00 Medical Center HEPATITIS B CORE ANTIBODY, 2022-03-08 Everette, Araceli Andujar [facility] TOTAL 08:57:00 Medical Center HEPATITIS B CORE ANTIBODY, 2022-03-08 Everette, Araceli Andujar [facility] IGM 08:57:00 Medical Center HC LAB HIV-1 AG W/HIV-1&2 AB 2022-03-08 Everette, Araceli [facility]dujar [facility] 08:57:00 [facility] CYTOMEGALOVIRUS ANTIBODY, IGG 2022-03-08 Everette, Araceli Andujar [facility] 08:57:00 Medical Center EBV ANTIBODY, IGM 2022-03-08 Everette, Araceli Andujar [facility] 08:57:00 Medical Center RUBEOLA ANTIBODY IGG 2022-03-08 Everette, Araceli Andujar [facility] 08:57:00 Medical Center MUMPS ANTIBODY, IGG 2022-03-08 Everette, Araceli Andujar [facility] 08:57:00 Medical Center RUBELLA ANTIBODY, IGG 2022-03-08 Everette, Araceli Andujar [facility] 08:57:00 [facility] VARICELLA ZOSTER ANTIBODY, 2022-03-08 Everette, Arcaeli Andujar [facility] IGG 08:57:00 [facility] CRYPTOCOCCAL ANTIGEN 2022-03-08 Everette, Araceli Andujar [facility] 08:57:00 [facility] RPR 2022-03-08 Everette, Araceli Andujar [facility] 08:57:00 [facility] T SPOT TB 2022-03-08 Everette, Araceli Andujar [facility] 08:57:00 [facility] ALPHA-1 ANTITRYPSIN MUTATION 2022-03-08 Everette, [facility]eli Cast[facility] ANALYSIS 08:57:00 [facility] HEPATITIS C GENOTYPE 2022-03-08 Everette, Araceli Andujar [facility] 08:57:00 [facility] PSA 2022-03-08 Everette, Araceli Andujar [facility] 08:57:00 [facility] CBC W/PLT COUNT & AUTO 2022-03-08 Everette, Araceli Andujar [facility] DIFFERENTIAL 08:57:00 [facility] FIBRINOGEN 2022-03-08 Everette, Araceli Andujar [facility] 08:56:00 [facility] PROTHROMBIN TIME/INR 2022-03-08 Everette, Araceli Andujar [facility] 08:56:00 [facility] APTT 2022-03-08 Everette, Araceli Andujar [facility] 08:56:00 [facility] MITOCHONDRIA M2 ANTIBODY 2022-03-08 Everette, Araceli Andujar [facility] (IGG) 08:56:00 Medical Center TESTOSTERONE, FREE + TOTAL 2022-03-08 Everette, Araceli Andujar [facility] 08:56:00 [facility] SARS-COV2/RT-PCR ([facility] & REF 2022-02-[address] [facility] LABS) 07:47:00 [facility] VARICELLA ZOSTER PCR, 2022-02-[address] [facility] QUALITATIVE 20:01:00 [facility] PROTHROMBIN TIME/INR 2022-02-[address] [facility] [facility] 11:57:00 [facility] CBC W/PLT COUNT & AUTO 2022-02-14 Rogelio Gil [facility] DIFFERENTIAL 05:02:00 [facility] BASIC METABOLIC PANEL 2022-02-14 [address]h [facility] 05:02:00 [facility] HEPATIC FUNCTION PANEL 2022-02-14 Jeffery Rogelio [facility] 05:02:00 [facility] CBC W/PLT COUNT & AUTO 2022-02-14 Rogelio Gil [facility] DIFFERENTIAL 05:02:00 [facility] TISSUE EXAM 2022-02-[address] [facility] 08:26:00 [facility] CYTOLOGY 2022-02-[address] [facility] 08:24:00 [facility] CYTOLOGY REQUEST 2022-02-[address] [facility] 08:24:00 [facility] BODY FLUID CULTURE + GRAM 2022-02-[address] [facility] STAIN 08:21:00 [facility] HERNIORRHAPHY, UMBILICAL 2022-02-[address] [facility] 07:13:00 [facility] PROTHROMBIN TIME/INR 2022-02-[address] [facility] [facility] 04:46:00 [facility] ABORH, MANUAL 2022-02-[address] [facility] 04:46:00 [facility] CBC W/PLT COUNT & AUTO 2022-02-[address] [facility] DIFFERENTIAL 03:38:00 [facility] BASIC METABOLIC PANEL 2022-02-[address] [facility] 03:38:00 [facility] MAGNESIUM 2022-02-[address] [facility] 03:38:00 [facility] HEPATIC FUNCTION PANEL 2022-02-13 Suyapa Webb PGena [facility] 03:38:00 [facility] PROTHROMBIN TIME/INR 2022-02-13 Tracey, Suyapa PGena [facility] 03:38:00 [facility] APTT 2022-02-[address] [facility] 03:38:00 [facility] PHOSPHATIDYLETHANOL, BLOOD 2022-02-13 [address] N[address] Roy [facility] 03:38:00 [facility] HEPATITIS B SURFACE ANTIBODY 2022-02-[address] [facility] 03:38:00 [facility] TYPE AND SCREEN, AUTOMATED 2022-02-13 Kt Garrett [facility] 03:38:00 [facility] CBC W/PLT COUNT & AUTO 2022-02-13 Tracey, Suyapa Cadena [facility] DIFFERENTIAL 03:38:00 [facility] CBC W/PLT COUNT & AUTO 2022-02-12 Tracey, Suyapa P. [facility] DIFFERENTIAL 03:29:00 [facility] BASIC METABOLIC PANEL 2022-02-12 Eduardo Webbison P[address] [facility] 03:29:00 [facility] MAGNESIUM 2022-02-12 Tracey, Suyapa P. [facility] 03:29:00 [facility] HEPATIC FUNCTION PANEL 2022-02-12 Tracey, Suyapa P. [facility] 03:29:00 [facility] PROTHROMBIN TIME/INR 2022-02-12 Tracey, Suyapa P. [facility] 03:29:00 [facility] CBC W/PLT COUNT & AUTO 2022-02-12 Tracey, Suyapa P. [facility] DIFFERENTIAL 03:29:00 [facility] CBC W/PLT COUNT & AUTO 2022-02-11 Tracey, Suyapa P. [facility] DIFFERENTIAL 04:35:00 [facility] BASIC METABOLIC PANEL 2022-02-11 Tracey, Suyapa P. [facility] 04:35:00 [facility] MAGNESIUM 2022-02-11 Tracey, Suyapa P. [facility] 04:35:00 [facility] HEPATIC FUNCTION PANEL 2022-02-11 Tracey, Suyapa P. [facility] 04:35:00 Medical Center PROTHROMBIN TIME/INR 2022-02-[address] [facility] 04:35:00 [facility] CBC W/PLT COUNT & AUTO 2022-02-[address] [facility] DIFFERENTIAL 04:35:00 [facility] US PARACENTESIS 2022-02-[address] [facility] 12:58:00 [facility] BODY FLUID CELL COUNT WITH 2022-02-10 [facility] DIFFER[facility] 12:32:00 [facility] BODY FLUID CULTURE + GRAM 2022-02-10 Brucorina, Keyana [facility] STAIN 12:32:00 [facility] LACTATE DEHYDROGENASE (LDH), 2022-02-10 Brusayajaira, Keyana [facility] BODY FLUID 12:32:00 [facility] PROTEIN, BODY FLUID 2022-02-10 [facility] 12:32:00 [facility] GLUCOSE, BODY FLUID 2022-02-[address] [facility] 12:32:00 [facility] XR ABDOMEN/KUB 1 VIEW 2022-02-[address] [facility] PORTABLE 04:18:00 [facility] URINALYSIS W/ REFLEX URINE 2022-02-09 [facility] CULTURE 23:33:[address] [facility] [address] ABDOMEN/PELVIS WITH IV 2022-02-09 Aida, Keyana [facility] CONTRAST 20:53:00 [facility] ECG 12-LEAD 2022-02-09 Brusatori, Keyana [facility] 19:28:35 [facility] ECG 12-LEAD 2022-02-09 Unknown, Hl7 Doctor [facility] 19:28:35 [facility] ECG 12-LEAD 2022-02-09 Unknown, Hl7 Doctor [facility] 19:28:35 [facility] BLOOD CULTURE 2022-02-09 Brusayajaira, Keyana [facility] 19:11:00 [facility] AMMONIA 2022-02-09 Brusatori, Keyana [facility] 19:09:00 [facility] SARS-COV2/RT-PCR (HS & REF 2022-02-[address] [facility] LABS) 19:08:00 [facility] LACTIC ACID, VENOUS 2022-02-[address] [facility] 18:49:00 [facility] BLOOD CULTURE 2022-02-[address] [facility] 18:48:00 [facility] CBC W/PLT COUNT & AUTO 2022-02-[address] [facility] DIFFERENTIAL 18:48:00 [facility] COMPREHENSIVE METABOLIC PANEL 2022-02-[address] [facility] 18:48:00 [facility] LIPASE 2022-02-[address] [facility] 18:48:00 [facility] PT/APTT 2022-02-[address] [facility] 18:48:00 [facility] CBC W/PLT COUNT & AUTO 2022-02-[address] [facility] DIFFERENTIAL 18:48:00 [facility] PROTHROMBIN TIME/INR 2022-02-[address] [facility] 13:40:00 [facility] BLOOD CULTURE 2022-02-[address] [facility] 13:37:00 [facility] MISCELLANEOUS LAB ORDER 2022-02-[address] [facility] 13:37:00 [facility] COMPREHENSIVE METABOLIC PANEL 2022-02-09 [address] [facility] 13:37:00 [facility] BILIRUBIN, DIRECT 2022-02-[address] [facility] 13:37:00 [facility] CBC W/PLT COUNT & AUTO 2022-02-[address] [facility] DIFFERENTIAL 13:37:00 [facility] HEPATITIS A ANTIBODY, IGG 2022-02-[address] [facility] 13:37:00 [facility] HEPATITIS C ANTIBODY 2022-02-09 Eros[facility] Ap[facility]ar [facility] 13:37:00 [facility] [id number]\\, SERUM 2022-02-[address] [facility] 13:37:00 [facility] Center ANTI-NUCLEAR ANTIBODY (OSKAR) 2022-02-[address] [facility] 13:37:00 [facility] [place] LACTIC ACID, VENOUS 2022-02-[address] [facility] 13:37:00 [facility] PROCALCITONIN 2022-02-[address] [facility] 13:37:00 [facility] OSKAR TITER AND PATTERN 2022-02-09 [facility] 13:37:00 [facility] CBC W/PLT COUNT & AUTO 2022-02-[address] [facility] DIFFERENTIAL 13:37:00 [facility] EKG-SCANNED 2022-02-[address] [facility] 00:00:00 Scanning [facility] [id number] 2021-10-24 CAN.01 [facility] 00:00:00 [facility] [id number] 2021-10-24 CANJO.01 [facility] 00:00:00 [facility] [id number] 2021-10-19 CANJO.01 [facility] 00[facility]00:00 [facility] [id number] 2021-10-19 CANJO.01 [facility] 00:00:00 [facility] [id number] 2021-10-17 [facility] [id number] 2021-10-17 [facility]00 [facility] [id number] 2021-10-17 CLIDO [facility] 00:00:00 [facility] [id number] 2021-10-17 SINSI [facility] 00[facility]00:00 [facility] [id number] 2021-10-17 [facility]SI [facility] 00:00:00 [facility] [id number] 2021-10-17 [facility]00 [facility] [id number] 2021-10-17 [facility]00 [facility] [id number] 2021-10-17 CLIDO [facility] 00[facility]00:00 [facility] [id number] 2021-10-17 SINSI [facility] 00:00:00 [facility] [id number] 2021-10-17 [facility]INSI [facility] 00:00:00 [facility] [id number] 2021-10-14 CLIDO [facility] 00:00:00 [facility] [id number] 2021-10-14 MOIKH [facility] 00:00:00 [facility] [id number] 2021-10-14 CLIDO [facility] 00:00:00 [facility] [id number] 2021-10-14 MOIKH [facility] 00:00:00 [facility] [id number] 2021-10-11 CANJO.01 [facility] 00:00:00 [facility] [id number] 2021-10-11 CANJO.01 [facility] MAGNESIUM 2021-10-08 [facility] 10:00:00 [facility] COMP. METABOLIC PANEL ([id number]) 2021-10-08 [facility] 10:00:00 [facility] CBC WITHOUT DIFF 2021-10-08 [facility] exas 10:00:00 [facility] N-TERMINAL PRO-BNP 2021-10-08 [facility] 10:00:00 [facility] MAGNESIUM 2021-10-07 [facility] 09:44:00 [facility] COMP. METABOLIC PANEL ([id number]) 2021-10-07 [facility] 09:44:00 [facility] CBC WITH DIFF 2021-10-07 [facility] xa 09:44:[address] HEAD WO CONTRAST 2021-10-06 [facility] [place] 23:27:16 Medical Branch XR ELBOW <3 VW LEFT 2021-10-06 [facility] [place] 23:19:00 [facility] TRANSTHORACIC ECHO (TTE) 2021-10-06 Fredo Berrios [facility] COMPLETE 17:32:04 [facility] PNEUMOCOCCAL ANTIGEN 2021-10-06 Fredo Berrios [facility] 12:20:00 [facility] CORTISOL AM 2021-10-06 [facility] [place] 11:45:00 [facility] LACTIC ACID WHOLE BLOOD 2021-10-06 [facility] 09:24:00 Medical Branch AMMONIA, PLASMA 2021-10-06 [facility] [place] 08:28:00 Medical Branch MAGNESIUM 2021-10-06 [facility] xa 08:21:00 [facility] THYROID STIMULATING HORMONE 2021-10-06 Willian Sandra [facility] 08:21:00 Medical Branch COMP. METABOLIC PANEL ([id number]) 2021-10-06 Fredo Berrios [facility] 08:21:00 Medical Branch US ABDOMEN LIMITED 2021-10-06 [facility] 02:00:00 [facility] TROPONIN I 2021-10-06 [facility] [place] 01:12:00 [facility] HEPATITIS C VIRUS (HCV) BY 2021-10-06 Fredo Berrios [facility] QUANTITATIVE NAAT 01:09:00 [facility] LACTIC ACID WHOLE BLOOD 2021-10-06 [facility] 00:02:00 [facility] MYCOPLASMA PNEUMONIAE 2021-10-06 Y[facility] ANTIBODY, IGM 00:01:00 [facility] HEPATITIS B SURFACE ANTIBODY 2021-10-06 Fredo Berrios [facility] 00:01:00 Medical Branch HCV ANTIBODY 2021-10-06 [facility]a 00:01:00 [facility] HBC ANTIBODY (IGM & IGG) 2021-10-06 [facility]ash [facility] 00:01:00 [facility] PROCALCITONIN 2021-10-06 [facility] xa 00:01:00 [facility] MRSA / MSSA SCREEN BY PCR, 2021-10-05 Fredo Berrios [facility] NARES 23:52:00 [facility] RESPIRATORY PANEL BY PCR 2021-10-05 Y[facility] 23:52:00 [facility] LACTIC ACID WHOLE BLOOD 2021-10-05 [facility] 20:29:00 [facility] BLOOD CULTURE SCREEN 2021-10-05 [facility] 17:35:00 [facility] URINE CULTURE 2021-10-05 [facility] [place] 17:35:00 [facility] BLOOD CULTURE WORKUP 2021-10-05 [facility] 17:35:00 [facility] GRAM POSITIVE BLOOD PATHOGENS 2021-10-05 [facility] DNA PROBE-ANAEROBIC 17:35:[address] ABDOMEN PELVIS W CONTRAST 2021-10-05 Babatunde Aragon [facility] 16:10:[address] CHEST PULMONARY ANGIOGRAM 2021-10-05 Babatunde Aragon [facility] 16:10:00 Medical Branch [facility] PATIENT FINANCIAL POLICY 2021-10-05 Doctor Unassigned, [facility] 14:58:02 [place] [facility] NO SHOW OR MISSED APPOINTMENT 2021-10-05 Doctor Unassigned, [facility] POLICY ACKNOWLEDGEMENT 14:57:08 [place] [facility] B ranch NOTICE OF PRIVACY PRACTICES 2021-10-05 Doctor Unasscesar, [facility] 14:55:14 [place] [facility] CONSENT/REFUSAL FOR DIAGNOSIS 2021-10-05 Doctor Unassigned, [facility] AND TREATMENT 14:54:54 [place] [facility] [place] ASSIGNMENT OF BENEFITS 2021-10-05 Doctor Unameghan, [facility] 14:54:42 [place] [facility] AC PANEL 20 + LACTIC ACID 2021-10-05 Singer Babatunde [facility] 14:48:00 Medical Branch COVID-19 (ID NOW RAPID 2021-10-05 [facility] TESTING) 14:48:00 Medical Branch LAB ONLY COVID INTERPRETATION 2021-10-05 Babatunde Aragon [facility] 14:48:00 Medical Branch AMMONIA, PLASMA 2021-10-05 [facility] [place] 14:47:00 Medical Branch TROPONIN I 2021-10-05 [facility] [place] 14:47:00 Medical Branch COMP. METABOLIC PANEL ([id number]) 2021-10-05 Babatunde Aragon [facility] 14:47:00 Medical Branch CBC WITH DIFF 2021-10-05 Singer [facility] [place] 14:47:00 Medical Branch PROTHROMBIN TIME / INR 2021-10-05 [facility] 14:47:00 Medical Branch D-DIMER 2021-10-05 Singer [facility] [place] 14:47:00 Medical Branch URINALYSIS 2021-10-05 Singer [facility] [place] 14:47:00 Medical Branch N-TERMINAL PRO-BNP 2021-10-05 [facility] 14:47:00 Medical Branch EKG-12 LEAD 2021-10-[address] [facility] [place] 14:44:49 Medical Branch CONSENT/REFUSAL FOR DIAGNOSIS 2021-10-05 Doctor Unassigned, [facility] AND TREATMENT 14:31:59 [place] [facility] NOTICE OF PRIVACY PRACTICES 2021-10-05 Doctor Unassigned, [facility] 14:31:43 [place] [facility] Plan of Care Planned Activity Planned Date Details Comments Source Future Scheduled 2023-03-[address] [facility] 00:00:00 (Season Ended) [code = Medic al Center INFLUENZA VACCINE (Season Ended)] Future Scheduled 2023-03-[address] [facility] 00:00:00 (Season Ended) [code = Medic al Center INFLUENZA VACCINE (Season Ended)] Future Scheduled [...] RISK Medical C enter SCREENING] Future Scheduled 2022-07-[address] [facility] 00:00:00 (12+) [code = Medical Center DEPRESSION SCREENING (12+)] Future Scheduled 2022-07-23 FALLS RISK SCREENING [facility] 00:00:00 [code = FALLS RISK Medical C enter SCREENING] Future Scheduled 2022-03-29 Screening for malignant [facility] Test 14:45:09 neoplasm of colon Medicine (procedure) [code = 761336945] Future Scheduled 2022-03-29 COVID-19 Vaccine (#1) [facility] Test 14:45:09 [code = COVID-19 Medicine Vaccine (#1)] Future Scheduled 2022-03-29 Pneumococcal 65+ (1 - Ba [facility] Test 14:45:09 PCV) [code = Medicine Pneumococcal 65+ (1 - PCV)] Future Scheduled 2022-03-29 TETANUS SHOT (ADULT) [facility] Test 14:45:09 [code = TETANUS SHOT Medicin e (ADULT)] Future Scheduled 2022-03-29 ZOSTER VACCINE (1 of 2) [facility] Test 14:45:09 [code = ZOSTER VACCINE Medic ine (1 of 2)] Future Scheduled 2022-03-29 MEDICARE AWV (Initial) [facility] Test 14:45:09 [code = MEDICARE AWV Medicin e (Initial)] Future Scheduled 2022-03-29 FALL SCREEN [code = [facility] Test 14:45:09 FALL SCREEN] Medicine Future Scheduled 2022-03-29 FLU VACCINE > 6 MONTHS [facility] Test 14:45:09 [code = FLU VACCINE [...] [facility] Test 00:00:00 2) [code = SHINGLES [facility] VACCINES (1 of 2)] [facility] 00:[facility]:00 2) [code = [facility] VACCINES (1 of 2)] Future Scheduled 1975 DTAP/TDAP/TD [facility]ACCINES [facility] 00:00:00 (1 - Tdap) [code = Medical C enter DTAP/TDAP/TD VACCINES (1 - Tdap)] Future Scheduled 1975 SHINGLES VACCINES ([address] [facility] 00:00:00 2) [code = [facility] VACCINES (1 of 2)] Future Scheduled 1962 [...] [facility] Test 00:00:00 [code = CT Colonography [facility] (combo)] Future Scheduled 1956 Screening for malignant [facility] 00:00:00 neoplasm of colon Medical Ce nter (procedure) [code = 901814334] Future Scheduled 1956 Screening for malignant [facility] 00:00:00 neoplasm of colon Medical Ce nter (procedure) [code = 107848256] Future Scheduled 1956 Screening for malignant [facility] 00:00:00 neoplasm of colon Medical Ce nter (procedure) [code = 848471553] Future Scheduled 1956 Screening for malignant [facility] 00:00:00 neoplasm of colon Medical Ce nter (procedure) [code = 083891928] Future Scheduled 1955 Sigmoidoscopy [code = [facility] Sigmoidoscopy] Medical Cente r Future Scheduled 1956 CT Colonography (combo) [facility] 00:00:00 [code = CT Colonography [facility] (combo)] Future Scheduled 1956 Screening for malignant [facility] 00:00:00 neoplasm of colon Medical Ce nter (procedure) [code = 913029896] Future Scheduled 1956 Screening for malignant [facility] 00:00:00 neoplasm of colon Medical Ce nter (procedure) [code = 552738054] Future Scheduled 1956 Screening for malignant [facility] 00:00:00 neoplasm of colon Medical Ce nter (procedure) [code = 005766826] Future Scheduled 1956 Screening for malignant [facility] 00:00:00 neoplasm of colon Medical Ce nter (procedure) [code = 890828414] Future Scheduled 1956 Sigmoidoscopy [facility]code [facility] S[facility]oidoscopy] Medical Cente r Future Scheduled 1956 CT Colonography (combo) [facility] 00:00:00 [code = CT Colonography [facility] (combo)] Future Scheduled 1956 Screening for malignant [facility] 00:00:00 neoplasm of colon Medical Ce nter (procedure) [code = 425059669] Future Scheduled 1956 Screening for malignant [facility] 00:00:00 neoplasm of colon Medical Ce nter (procedure) [code = 050385402] Future Scheduled 1956 Screening for malignant [facility] 00:00:00 neoplasm of colon Medical Ce nter (procedure) [code = 642202671] Future Scheduled 1956 Screening for malignant [facility] 00:00:00 neoplasm of colon Medical Ce nter (procedure) [code = 752420743] Future Scheduled 1956 Sigmoidoscopy [facility]code [facility] S[facility]oidoscopy] Medical Cente r Future Scheduled 1956 CT Colonography (combo) [facility] 00:00:00 [code = CT Colonography [facility] (combo)] Future Scheduled 1956 Screening for malignant [facility] 00:00:00 neoplasm of colon Medical Ce nter (procedure) [code = 709304550] Future Scheduled 1956 Screening for malignant [facility] 00:00:00 neoplasm of colon Medical Ce nter (procedure) [code = 422647903] Future Scheduled 1956 Screening for malignant [facility] 00:00:00 neoplasm of colon Medical Ce nter (procedure) [code = 538051232] Future Scheduled 1956 Screening for malignant [facility] 00:00:00 neoplasm of colon Medical Ce nter (procedure) [code = 095423931] Future Scheduled 1956 Sigmoidoscopy [facility]code [facility] Sigmoidoscopy] Medical Cente r Future Scheduled 1956 CT Colonography (combo) [facility] 00:00:00 [code = CT Colonography [facility] (combo)] Future Scheduled 1956 Screening for malignant [facility] 00:00:00 neoplasm of colon Medical Ce nter (procedure) [code = 223093434] Future Scheduled 1956 Screening for malignant [facility] 00:00:00 neoplasm of colon Medical Ce nter (procedure) [code = 533461918] Future Scheduled 1956 Screening for malignant [facility] 00:00:00 neoplasm of colon Medical Ce nter (procedure) [code = 431860042] Future Scheduled 1956 Screening for malignant [facility] 00:00:00 neoplasm of colon Medical Ce nter (procedure) [code = 633270910] Future Scheduled 1956 Sigmoidoscopy [facility]code [facility] S[facility]oidoscopy] Medical Cente r Encounters Start End Encounter Admission Attending Care Care Encounter Source Date/Time Date/Time Type Type Clinicians Facility Department ID 2020-10-06 Inpatient ER Vera, Hyacinth [facility] [id number] 13:30:00 -[id number] [facility]ricks[facility] 2022-11-082022-11-08 Abstract Pelon [facility] [id number] 00:00:00 00:00:00 [facility] 2022-11-08 2022-11-08 Abstract Pelon [facility] [id number] 00:00:00 00:00:00 [facility] 2022-11-06 2022-11-06 Abstract Yue Brower [facility] [id number] 00:[facility] 00:00:00 [facility] 2022-11-06 2022-11-06 Abstract Godfrey [facility] [id number] 00:00[facility]00 00:00:00 [facility] 2022-11-06 2022-11-06 Yue Zamora [facility] [id number] [id number] 00:00[facility]00 00:00:00 [facility] 2022-11-06 2022-11-06 Abstract Godfrey [facility] [id number] 00:00:00 00:00:00 [facility] 2022-10-27 2022-10-27 Telephone Blafaith [facility] [id number] 00:00:00 00:00:00 [facility] 2022-10-27 2022-10-27 Telephone Blafaith [facility] [id number] 00:00:00 00:00:00 [facility] 2022-10-26 2022-10-26 Telephone Blafaith, [facility] [id number] 00:00:00 00:00:00 [facility] 2022-10-26 2022-10-26 Telephone Blafaith, [facility] [id number] 00:00:00 00:00:00 [facility] 2022-10-16 2022-10-16 Telephone Blafaith [facility] [id number] [id number] 00:00:00 00:00:00 [facility] 2022-10-16 2022-10-16 Telephone Blacher, [facility] [id number] [id number] 00:00:00 00:00:00 [facility] 2022-10-11 2022-10-11 Telephone Mariam [facility] [id number] 00:00:00 00:00:00 [facility] 2022-10-11 2022-10-11 Telephone Mariam [facility] [id number] 00:00:00 00:00:00 [facility] 2022-09-25 2022-09-25 [facility] [id number] 00:00:00 00:00:00 [facility] 2022-09-25 2022-09-25 Refill Sheridan, [facility] [id number] 00:00:00 00:00:00 [facility] 2022-09-18 2022-09-18 Orders Rich, [facility] [id number] 00:00:00 00:00:00 Only [facility] 2022-09-18 2022-09-18 Orders Rich, [facility] [id number] 00:00:00 00:00:00 Only [facility] 2022-08-30 2022-08-30 Office Rich [facility] [id number] 08:30:00 09:00:00 Visit [facility] 2022-08-30 2022-08-30 Office Rich, [facility] [id number] 08:30:00 09:00:00 Visit [facility] 2022-08-29 2022-08-29 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 [facility] Main [facility] 1.2.8 [id number] [id number] [facility] 08:15:00 08:30:00 [facility] 350.1.13.10 [place] [id number] Md dical NAL 353 [facility] 2022-08-29 2022-08-29 Outpatient R [facility] [id number] Univers 08:15:00 08:15:00 ERIC ity [facility] 2022-08-29 2022-08-29 Orders Doctor LUIS [id number] Univers 00:00:00 00:00:00 Only Unassigned, JESS 350.1.13.10 ity of [place] [facility] 4.2.7.2.686 Darrick as [phone] [address] 2022-07-28 2022-07-28 Telephone Marylin [facility] [id number] 00:00:00 00:00:00 [facility] 2022-07-28 2022-07-28 Telephone Marylin [facility] [id number] 00:00:00 00:00:00 [facility] 2022-06-28 2022-06-28 Outpatient R TIMOTHY [facility] OPH [id number] Univers 08:31:00 11:10:00 JHON bertni [facility] 2022-06-28 2022-06-28 [facility] [id number] Univers 08:31:00 11:10:00 Encounter Jhon BOOTHE 350.1.13.10 ity of [facility] [place] SUR[place]ICAL [id number] [facility] 071 Branch 2022-06-28 2022-06-28 Surgery [facility] [id number] [id number] Univers 09:34:00 10:08:00 Jhon BOOTHE 350.1.13.10 [place] [id number] [facility] 020 Branch 2022-06-27 2022-06-27 Office Araceli Chirinos [facility] [id number] 13:00:00 13:30:00 Visit Sheridan, [facility] 2022-06-27 2022-06-27 Office Araceli Amato [facility] [id number] 13:00:00 13:30:00 Visit Sheridan, [facility] 2022-06-27 2022-06-27 Orders Sheridan [facility] [id number] 00:00:00 00:00:00 Only [facility] 2022-06-27 2022-06-27 Orders Sheridan [facility] [id number] 00:00:00 00:00:00 Only [facility] 2022-06-26 2022-06-26 Refill Lam, [facility] [id number] 00:00:00 00:00:00 [facility] 2022-06-26 2022-06-26 Refill Lam, [facility] [id number] 00:00:00 00:00:00 [facility] 2022-06-26 2022-06-26 Orders Doctor APONTE [id number] [id number] Univers 00:00:00 00:00:00 Only Unassigned, JESS 350.1.13.10 ity of [place] [facility] 4.2.7.2.686 [facility] as [phone] [address] 2022-06-23 2022-06-23 Outpatient DEVON ELI [facility] [id number] [facility] 00:00:00 00:00:00 ANNETTE purdy of Medicin e 2022-06-07 2022-06-07 [facility] [id number] Univers 08:00:00 10:35:00 JHON ity of [facility] 2022-06-07 2022-06-07 [facility] [id number] Univers 08:00:00 10:35:00 Encounter Jhon BOOTHE 350.1.13.10 ity of [facility] [place] [id number] [facility] 071 Branch 2022-06-07 2022-06-07 Surgery Timothy [facility] 1.2.840.114 [id number] Univers 09:05:00 09:39:00 Jhon Jasmine SHYANN 350.1.13.10 ity of [facility] 4[place] [id number] [facility] 020 Branch 2022-06-07 2022-06-07 Orders Doctor LUIS 1.2.840.114 [id number] Univers 00:00:00 00:00:00 Only Unassigned, JESS 350.1.13.10 ity of [place] [facility] 4.2.7.2.686 Darrick as [phone] [place] [id number] Branch 2022-05-29 2022-05-29 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 Donnie, [facility] Lab Main [facility] 1.2.8 40.114 [id number] Univers 11:15:00 11:30:00 Visit Jhon Aguirre 350.1.13.1 0 ity of [facility] [place] [id number] [facility] 353 [facility] 2022-05-29 2022-05-29 Outpatient R TIMOTHY [facility] [id number] Univers 11:15:00 11:15:00 JHON itbertin of [facility] 2022-05-29 2022-05-29 Shonda [facility] [id number] 00:00:00 00:00:[address] [facility] 2022-05-29 2022-05-29 Shonda [facility] [id number] 00:00:00 00:00:[address] [facility] 2022-05-26 2022-05-26 [facility] Araceli Amato [facility] [id number] [id number] 09:30:00 09:30:00 [facility] 2022-05-26 2022-05-26 [facility] Araceli Amato [facility] [id number] [id number] 09:30:00 09:30:00 [facility] 2022-05-26 2022-05-26 Telephone Nestor [facility] [id number] 00:00:00 00:00:00 [facility] 2022-05-26 2022-05-26 Telephone Nestor [facility] [id number] 00:00:00 00:00:00 [facility] 2022-05-18 2022-05-18 Telephone Nestor [facility] [id number] [id number] 00:00:00 00:00:00 [facility] 2022-05-18 2022-05-18 Telephone Nestor [facility] [id number] 00:00:00 00:00:00 [facility] 2022-04-27 2022-04-27 Outpatient [facility] [id number] [facility] 13:27:18 13:55:18 VIVI purdy of Medicin e 2022-04-18 2022-04-18 Telephone Marylin [facility] [id number] 00:00:00 00:00:00 [facility] 2022-04-18 2022-04-18 Telephone Marylin [facility] [id number] 00:00:00 00:00:00 [facility] 2022-04-13 2022-04-13 Outpatient [facility] [id number] [facility] 09:39:29 10:43:42 CHON chowdhury of Medicin e 2022-04-12 2022-04-12 Paresh Baez [facility] [id number] 00:00:00 00:00:00 [facility] 2022-04-12 2022-04-12 Paresh Baez [facility] [id number] 00:00:00 00:00:00 [facility] 2022-04-10 2022-04-10 [facility] [id number] 11:02:13 23:59:00 Encounter [facility] 2022-04-10 2022-04-10 [facility] [id number] 11:02:13 23:59:00 Encounter [facility] 2022-04-10 2022-04-10 Office EL Scarlet Fritz [facility] [id number] 09:30:00 10:00:00 Visit [facility] 2022-04-10 2022-04-10 Office Scarlet Fritz [facility] [id number] 09:30:00 10:00:00 Visit [facility] 2022-04-06 2022-04-06 Shonda Martinez [facility] [id number] 00:00:00 00:00:00 Only [facility] 2022-04-06 2022-04-06 Orders Juan [facility] [id number] 00:00:00 00:00:00 Only [facility] 2022-04-04 2022-04-04 Paresh Swartz [facility] [id number] 00:00:00 00:00:00 [facility] 2022-04-04 2022-04-04 Paresh Swartz [facility] [id number] 00:00:00 00:00:00 ion [facility] 2022-03-31 2022-03-31 Telephone Mariam [facility] [id number] 00:00:00 00:00:00 [facility] 2022-03-31 2022-03-31 Telephone Mariam [facility] [id number] 00:00:00 00:00:00 [facility] 2022-03-30 2022-03-30 [facility] [id number] [id number] 11:50:30 23:59:[address] [facility] 2022-03-30 2022-03-30 [facility] [id number] [id number] 11:50:30 23:59:[address] [facility] 2022-03-30 2022-03-30 [facility] [id number] [id number] 11:42:06 11:49:[address] [facility] 2022-03-30 2022-03-30 [facility] [id number] [id number] 11:42:06 11:49:[address] [facility] 2022-03-30 2022-03-30 [facility] [id number] [id number] 11:00:00 11:41:[address] [facility] 2022-03-30 2022-03-30 [facility] [id number] [id number] 11:00:00 11:41:[address] [facility] 2022-03-30 2022-03-30 [facility] Araceli [facility] [id number] [id number] 09:25:37 10:59:[address] [facility] 2022-03-30 2022-03-30 [facility] [id number] [id number] 09:25:37 10:59:[address] [facility] 2022-03-30 2022-03-30 [facility] Araceil [facility] [id number] [id number] 09:25:15 10:59:[address] [facility] 2022-03-30 2022-03-30 [facility] Araceli [facility] [id number] [id number] 09:25:15 10:59:[address] [facility] 2022-03-30 2022-03-30 [facility] [id number] [id number] 09:25:01 10:59:[address] [facility] 2022-03-30 2022-03-30 [facility] Araceli Amato [facility] [id number] [id number] 09:25:01 10:59:[address] [facility] 2022-03-30 2022-03-30 [facility] Araceli Amato [facility] [id number] 06:00:00 09:24:00 Encounter 3, [facility] 2022-03-30 2022-03-30 [facility] Araceli Amato [facility] [id number] 06:00:00 09:24:00 Encounter 3, [facility] Terrence [facility] 2022-03-30 2022-03-30 Telephone Gilberto [facility] [id number] [facility] 00:00:00 00:00:00 [facility] 2022-03-30 2022-03-30 Telephone Gilberto [facility] [id number] [address] 00:00:00 00:00:00 [facility] 2022-03-29 2022-03-29 Office DEVON Bell [id number] [place] [address] 14:00:00 15:02:44 Visit Vivi AMBULATOR 350.1.13.21 College Y [id number] [facility] [id number] [facility] 815 e 2022-03-29 2022-03-29 Refamanda Becerra [facility] [id number] 00:00:00 00:00:00 [facility] 2022-03-29 2022-03-29 Johny Becerra [facility] [id number] 00:00:00 00:00:00 [facility] 2022-03-23 2022-03-23 Telephone Nestor [facility] [id number] 00:00:00 00:00:00 [facility] 2022-03-23 2022-03-23 Orquidea Baez [facility] [id number] 00:00:00 00:00:00 [facility] 2022-03-22 2022-03-22 Paresh Manzano [facility] [id number] [address] 00:00:00 00:00:00 [facility] 2022-03-22 2022-03-22 Documentleonid Manzano [facility] [id number] 00:00:00 00:00:00 [facility] 2022-03-10 2022-03-10 Paresh Baez [facility] [id number] 00:00[facility]00 00:00:00 [facility] 2022-03-10 2022-03-10 Paresh Baez [facility] [id number] 00:00[facility]00 00:00:00 [facility] 2022-03-10 2022-03-10 Paresh Baez [facility] [id number] 00:00[facility]00 00:00:00 [facility] 2022-03-10 2022-03-10 Paresh Martinez [facility] [id number] 00:00:00 00:00:00 [facility] 2022-03-10 2022-03-10 Paresh Baez [facility] [id number] 00:00:00 00:00:00 [facility] 2022-03-10 2022-03-10 Paresh Baez [facility] [id number] 00:00:00 00:00:00 [facility] 2022-03-10 2022-03-10 Paresh Baez [facility] [id number] 00:00:00 00:00:00 [facility] 2022-03-10 2022-03-10 Paresh Martinez [facility] [id number] 00:00:00 00:00:00 frankie Hong [facility] 2022-03-08 2022-03-08 Office Araceli Amato [facility] [id number] 11:30:00 12:00:00 Visit Gilberto [facility] 2022-03-08 2022-03-08 Office Araceli Amato [facility] [id number] 11:30:00 12:00:00 Visit Gilberto [facility] 2022-03-08 2022-03-08 Evaluation Araceli Amato [facility] [id number] [facility] 10:30:00 11:30:00 [facility] 2022-03-08 2022-03-08 Evaluation Araceli Amato [facility] [id number] [facility] 10:30:00 11:30:00 [facility] 2022-03-08 2022-03-08 Evaluation Araceli Amato [facility] [id number] [facility] 09:00:00 09:30:00 [facility] 2022-03-08 2022-03-08 Evaluation Araceli Amato [facility] [id number] 09:00:00 09:30:00 Franco [facility] 2022-03-08 2022-03-08 Social Araceli Amato [facility] [id number] 08:30:00 09:00:00 Work [facility] 2022-03-08 2022-03-08 Social Everette Araceli [facility] [id number] 08:30:00 09:00:00 [facility] 2022-[facility]-08 2022-03-08 Orders EL Araceli Amato [facility] [id number] 08:20:00 08:30:00 [facility] 2022-03-08 2022-03-08 Orders Araceli Amato [facility] [id number] [facility] 08:20:00 08:30:00 Only [facility] 2022-03-08 2022-03-08 Telephone Nestor [facility] [id number] 00:00:00 00:00:00 [facility] 2022-03-08 2022-03-08 Telephone Nestor [facility] [id number] 00:00:00 00:00:00 [facility] 2022-03-08 2022-03-08 Paresh Caldwell [facility] [id number] [id number] 00:00:00 00:00:00 [facility] 2022-03-08 2022-03-08 Telephone Nestor [facility] [id number] [id number] 00:00:00 00:00:00 [facility] 2022-03-08 2022-03-08 Telephone Nestor [facility] [id number] [id number] 00:00:00 00:00:00 [facility] 2022-03-08 2022-03-08 Paresh Caldwell [facility] [id number] 00:00:00 00:00:00 [facility] 2022-03-06 2022-03-06 Telephone Yamil [facility] [id number] 00:00:00 00:00:00 [facility] 2022-03-06 2022-03-06 Telephone Nestor [facility] [id number] 00:00:00 00:00:00 [facility] 2022-03-06 2022-03-06 Telephone Yamil [facility] [id number] 00:00:00 00:00:00 [facility] 2022-03-06 2022-03-06 Telephone Nestor [facility] [id number] 00:00:00 00:00:00 [facility] 2022-02-28 2022-02-28 Telephone Nestor [facility] [id number] [id number] 00:00:00 00:00:00 [facility] 2022-02-28 2022-02-28 Telephone Nestor, [facility] [id number] 00:00:00 00:00:00 [facility] 2022-02-22 2022-02-22 Telephone Nestor, [facility] [id number] [id number] 00:00:00 00:00:00 [facility] 2022-02-22 2022-02-22 Telephone Nestor, [facility] [id number] [id number] 00:00:00 00:00:00 [facility] 2022-02-20 2022-02-20 [facility] [id number] 00:00:00 00:00:00 [facility] 2022-02-20 2022-02-20 [facility] [id number] 00:00:00 00:00:00 Only [facility] 2022-02-20 2022-02-20 Telephone Juan [facility] [id number] 00:00:00 00:00:00 [facility] 2022-02-20 2022-02-20 Orders Zulma [facility] [id number] 00:00:00 00:00:00 Only [facility] 2022-02-18 2022-02-18 Orders Juan [facility] [id number] 00:00:00 00:00:00 Only [facility] 2022-02-18 2022-02-18 [facility] [id number] 00:00:00 00:00:00 Only [facility] 2022-02-09 2022-02-17 [facility] Keyana Parra [facility] [id number] [facility] 19:40:00 11:24:00 Encounter Tk Rabago [facility] 2022-02-09 2022-02-17 Inpatient ER CONCHITA WEBB Surgery [id number] SLE 19:40:00 11:24:00 [place] 2022-02-09 2022-02-17 [facility] Keyana Parra [facility] [id number] [facility] 19:40:00 11:24:00 En[facility]k [facility] 2022-02-15 2022-02-15 [facility] [id number] 00:00[facility]00 00:00:00 [facility] 2022-02-15 2022-02-15 Paresh Baez [facility] [id number] 00:00:00 00:00:00 ion [facility] 2022-02-14 2022-02-14 [facility] [id number] [facility] 00:00:00 00:00:00 2022-02-13 2022-02-13 Surgery Sheridan [facility] [id number] 07:30:00 09:37:00 [facility] 2022-02-13 2022-02-13 Surgery Sheridan [facility] [id number] 07:30:00 09:37:00 [facility] 2022-02-13 2022-02-13 Anesthesia [facility] [id number] [facility] 07:26:00 09:06:00 Event Manoj wallace Medic [facility] 2022-02-13 2022-02-13 Anesthesia [facility] [id number] [facility] 07:26:00 09:06:00 Event Manoj wallace Medic al [place] 2022-02-09 2022-02-09 Outpatient [facility] [id number] [facility] 19:40:00 23:59:00 [facility] 2022-02-09 2022-02-09 Outpatient [facility] [id number] [facility] 00:00:00 19:39:00 [facility] 2022-02-09 2022-02-09 Office ZHOU Fritz [facility] [id number] [id number] 11:00:00 12:00:00 Visit [facility] 2022-02-09 2022-02-09 Office Lam [facility] [id number] 11:00:00 12:00:00 Visit [facility] 2022-02-09 2022-02-09 Outpatient CON[facility]ITA [id number] [facility] 11:42:22 11:42:22 RISE 2022-02-09 2022-02-09 Outpatient [facility] [id number] [facility] 00:00:00 00:00:00 PRASUN 2022-02-09 2022-02-09 Orders [facility] [id number] 00:00:00 00:00:00 [facility] 2022-02-09 2022-02-09 Documentat Marko [facility] [id number] 00:00:00 00:00:00 [facility] 2022-02-09 2022-02-09 Telephone Cleve [facility] [id number] 00:00:00 00:00:00 [facility] 2022-02-09 2022-02-[address] [facility] [id number] [facility] 00:00[facility]00 00:00:00 [facility] 2022-02-09 2022-02-09 Telephone Enzo [facility] [id number] 00:00:00 00:00:00 [facility] 2022-02-09 2022-02-09 Abstract Luis Gamez [facility] [id number] 00:00:00 00:00:00 [facility] 2022-02-09 2022-02-09 Orders [facility] [id number] 00:00:00 00:00:00 [facility] 2022-02-09 2022-02-09 Documentleonid Zhu, [facility] [id number] 00:00:00 00:00:00 frankie Snow [facility] 2022-02-09 2022-02-09 Telephone Poon, [facility] [id number] 00:00:00 00:00:00 [facility] 2022-02-09 2022-02-[address] [facility] [id number] [facility] 00:00:00 00:00:00 [facility] 2022-02-09 2022-02-09 Telephone Giraldo, [facility] [id number] 00:00:00 00:00:00 [facility] 2022-02-09 2022-02-09 Abstract Luis Gamez [facility] [id number] 00:00:00 00:00:00 [facility] 2022-02-08 2022-02-08 Outpatient CONCHITA SANCHEZ [facility] [id number] [facility] 00:00:00 00:00:00 MADDIE 2022-02-08 2022-02-08 Outpatient ZHOU JIANG SLE[facility] [id number] [facility] 00:00:00 00:00:00 KIRT 2021-10-11 2021-10-26 Inpatient EM DAFNE Kidd INTE [id number] [facility] 14:19:00 16:56:00 Mary 42 [facility] 2021-10-12 2021-10-12 Outpatient REYES Kidd LABO [id number] [facility] 01:15:00 01:15:00 Mary 08 [facility] 2021-10-10 2021-10-10 Transition CARLOS Molina [id number] [facility] 00:00:00 00:00:00 of Care Sadie SHI 350.1.13.10 it y of [place] 4.2.7.2.686 Amalia jamil [id number] [facility] [address] 2021-10-05 2021-10-08 Hospital Babatunde Aragon [facility] 1.2.840.1 [id number] Univers 09:32:00 11:36:00 Encounter Fredo Berrios 350.1.13.10 ity of Rashad Malone 4.2.7.2.686 [facility] [id number] [facility] [address] 2021-10-05 2021-10-08 Inpatient X DESIRE [facility] [id number] Univers 09:32:00 11:36:00 RASHAD ity [facility] 2021-04-11 2021-04-11 Emergency ER Provider, [facility] [id number] 10:28:00 10:28:00 Express -[id number] Melvin Robles 2020-10-05 2020-10-05 Emergency ER Provider, [facility] [id number] 11:17:00 11:17:00 Express -[id number] Melvin Robles 2020-06-11 2020-06-11 Emergency ER Provider, [facility] [id number] 12:11:00 12:11:00 Express -[id number] Melvin Robles Results Test Description Test Time Test Comments Results Result Comments Source ALPHA FETOPROTEIN (AFP), TUMOR MARKER 2022-06-27 18:16:36 Test Item Value Reference Range Interpretation Comme nts ALPHA-FETOPROTEIN (BEAKER) (test code = 1094) 3.1 ng/mL <10.0 Electronic Publications Specialist ID - BSBASIC METABOLIC [id number] 17:38:25 Test Item Value Reference Range Interpretation [...] 30-44 G4 Severl y decreased 15-29 G5 Kidne y failure <15Reported eGF R is based on the CKD-EPI 2021 equation that d oes not use a race coefficientEsti mated GFR is not as accur ate as Creatinine Sheree dickson in predicting glom erular filtration rate . Estimated GFR is not appl icable for dialysis patien ts Electronic Publications Specialist ID - BSHEPATIC FUNCTION [id number] 17:38:25 Test Item Value Reference Range Interpretation [...] (test code = 20 U/L 6-55 347) Electronic Publications Specialist ID - BSPROTHROMBIN TIME/[id number] 17:10:59 Test Item Value Reference Range Interpretation Comments PROTIME (BEAKER) 15.2 seconds 11.9-14.2 H (test code = 759) INR (BEAKER) (test 1.22 See_Comment [Automat ed message] code = 370) The system [employer] generated this result transmitted ref erence range: <=5.90. The reference range was not used to int erpret this result as normal/abnormal . RECOMMENDED COUMADIN/WARFARIN INR THERAPY RANGESSTANDARD DOSE: 2.0 - 3.0 Includes: PROPHYLAXIS for venous thrombosis, systemic embolization; TREATMENT for venous thrombosis and/or pulmonary embolus.HIGH RISK: Target INR is 2.5-3.5 for patients with mechanical heart valves.CBC W/PLT COUNT & AUTO [id number] 17:06:57 Test Item Value Reference Range Interpretation [...] PERCENT (BEAKER) (test code = 2801) CT, [id number] 14:02:00 [facility] 1955 Sex: [...] gallstone, gallbladder wall thickening, or pericholecystic fluid collection,or biliary dilatation is noted. Pancreas and adrenals [...] MDReport Verified Date/Time: 04/12/2022 14:02:36 Reading Location: [facility] C013Y CT Body Reading Room [facility] METABOLIC PANEL 2022-04-10 15:05:39 Test Item Value [...] not appl icable for dialysis patien ts Electronic Publications Specialist ID - MITCHOperator ID - BSHEPATIC FUNCTION [id number] 14:50:35 Test Item Value Reference Range Interpretation [...] (test code = 17 U/L 6-55 347) Electronic Publications Specialist ID - MITCHPROTHROMBIN TIME/[id number] 14:23:04 Test Item Value Reference Range Interpretation Comments PROTIME (BEAKER) 15.7 seconds 11.9-14.2 H (test code = 759) INR (BEAKER) (test 1.33 See_Comment [Automat ed message] code = 370) The system [employer] generated this result transmitted ref erence range: <=5.90. The reference range was not used to int erpret this result as normal/abnormal . RECOMMENDED COUMADIN/WARFARIN INR THERAPY RANGESSTANDARD DOSE: 2.0 - 3.0 Includes: PROPHYLAXIS for venous thrombosis, systemic embolization; TREATMENT for venous thrombosis and/or pulmonary embolus.HIGH RISK: Target INR is 2.5-3.5 for patients with mechanical heart valves.CBC W/PLT COUNT & AUTO [id number] 14:15:48 Test Item Value Reference Range Interpretation [...] 2801) MR, ABDOMEN, WITHOUT / WITH IV [id number] 14:22:00ERIC HURT MDUnlisted Reason for Exam - Click Yes and Enter Reason Below->YesUnlisted Reason for Exam->Pre transplant liver [facility] 1955 Sex: [...] suggest attention on future exam. Signed: Juana Martinez Verified Date/Time: 04/01/2022 14:22:50 Carotid doppler [id number] 08:35:57Ejection FractionSLEH ECHO HEARTLAB MKCKESSON [facility] campusCarotid doppler auyowwqjn0313-28-01 08:35:57Ejection FractionSLEH ECHO HEARTLAB [facility] campusCarotid doppler iyeucpmbl2345-55-02 08:35:57Ejection FractionSLEH ECHO HEARTLAB [facility] campusCarotid doppler bilateral 2022-03-31 08:35:57Ejection FractionSLEH ECHO HEARTLAB [facility] campusCarotid doppler [id number] 08:35:57Ejection FractionSLEH ECHO HEARTLAB MKCKESSON [facility] campusRAD, MANDIBLE, MIN 4 [id number] 17:25:00ERIC HURT MDReason for Exam:->Pre transplant liver [facility] : 1955 Sex: MFINAL REPORT MANDIBLE 5 VIEWS HISTORY: Liver transplant evaluation COMPARISON: No comparison mandibular imaging FINDINGS: KAREN Mims, bilateral oblique, and lateral images of the [...] DOPPLER 2022-03-30 15:51:59Ejection FractionSLEH ECHO HEARTLAB MKCKESSON [facility] campusECHO W CONTRAST & [id number] 15:51:59Ejection FractionSLEH ECHO HEARTLAB MKCKWMCHEALTHON [facility] campusECH W CONTRAST & [id number] 15:51:59Ejection FractionSLEH ECHO [facility]ARTLAB [facility] & DOPPLER 2022-03-30 15:51:59Ejection FractionSLEH ECHO HEARTLAB MKCKESSON [facility] campusECHO W CONTRAST & [id number] 15:51:59Ejection FractionSLEH ECHO HEARTLAB [facility] Parnassus campusRAD, BONE DENSITY [id number] 12:37:00ERIC HURT MDReason for Exam:- >[facility] : 1955 Sex: MFINAL REPORT BONE MINERAL DENSITY CLINICAL HISTORY: Liver transplant evaluation COMPARISON: No prior comparison bone mineral density studies REPORT: Bone Mineral Density Measurement: Lumbar Spine (L1-L4): 0.888 g/gs4Hqai Femoral Neck: 0.803 g/cm2 Standard Deviation as [...] Mcdermott Verified Date/Time: 03/30/2022 12:37:59 Reading Location: [facility] Radiology Reading Room RAD, CHEST, 2 [id number] 12:33:00 REIC HURT MDReason for Exam:->Pre liver [facility] 1955 Sex: [...] Mcdermott Verified Date/Time: 03/30/2022 12:33:13 Reading Location: [facility] Radiology Reading Room BLOOD GAS, [id number] 11:58:00 Test Item Value Reference Range Interpretation [...] (test code = 1819) 21.0 MISCELLANEOUS LAB [id number] 14:30:49 Test Item Value Reference Range Interpretation Comments SCAN RESULT (test code = See scanned report [id number]) See scanned reportDrug screen, urine, [id number] 11:57:47 Test Item Value Reference Range Interpretation Comments Scan Result (test code = See scanned report [id number]) ALLYN (test code = ALLYN) See scanned report [facility], [id number] 11:57:47 Test Item Value Reference Range Interpretation Comments Scan Result (test code = See scanned report [id number]) ALLYN (test code = ALLYN) See scanned report [facility], urine, [id number] 11:57:47 Test Item Value Reference Range Interpretation Comments Scan Result (test code = See scanned report [id number]) ALLYN (test code = ALLYN) See scanned report [facility], urine, [id number] 11:57:47 Test Item Value Reference Range Interpretation Comments Scan Result (test code = See scanned report [id number]) ALLYN (test code = ALLYN) See scanned report [facility], urine, [id number] 11:57:47 Test Item Value Reference Range Interpretation Comments Scan Result (test code = See scanned report [id number]) ALLYN (test code = ALLYN) See scanned report [facility] CenterDRUG SCREEN, URINE, [id number] 11:57:47 Test Item Value Reference Range Interpretation Comments SCAN RESULT (test code = See scanned report [id number]) See scanned reportHEPATITIS C PCR, [id number] 06:16:44 Test Item Value Reference Range Interpretation Comments HCV RESULT COMPONENT HCV RNA not detected HCV RNA not detected (BEAKER) (test code = 2699) This test uses a Real-Time Polymerase Chain Reaction (RT-PCR) methodology and was performed using NAL[employer]LY Ampliprep/NALLELY TaqMan HCV test kit version 2.0 ([employer]).Reportable range for this assay is 15 - 100,000,000 IU per mL (1.18 - 8.00 Log IU/mL).[id number] 16:08:46 Test Item Value Reference Range Interpretation Comments T3 TOTAL (BEAKER) (test code = 1.00 ng/mL 0.60-1.81 656) Electronic Publications Specialist ID - LITOCRYPTOCOCCAL [id number] 14:02:47 Test Item Value Reference Range Interpretation Comments CRYPTOCOCCAL ANTIGEN, SERUM Negative Negative, Interference (BEAKER) (test code = 1828) Urinalysis w/[id number] 13:43:44 Test Item Value Reference Range Interpretation Comments Color, UA (test Yellow code = 5778-6) Clarity, UA (test Clear code = 5767-9) Specific [place], 1.013 1.001-1.035 UA (test code = 5811-5) pH, UA (test code 5.0 5.0-8.0 = 5803-2) Protein, UA (test Negative Negative code = 01886-9) Glucose, UA (test Negative Negative code = 365) Ketones, UA (test Negative Negative code = 2514-8) Bilirubin, UA Negative Negative (test code = 06087-2) Blood, UA (test Negative Negative code = 32905-8) Nitrite, UA (test Negative Negative code = 5802-4) Leukocytes, UA Negative Negative (test code = 5799-2) Urobilinogen, UA 0.2 mg/dL 0.2-1.0 (test code = 28173-9) RBC, UA (test 1 See_Comment [Automated me ssage] code = 88421-4) The system [facility] generated this result transmit britta reference range : /HPF. The refer ence range was not u sed to interpret th is result as normal/abnormal . WBC, UA (test 1 See_Comment [Automated me ssage] code = 5821-4) The system [facility] generated this result transmit britta reference range : /HPF. The refer ence range was not u sed to interpret th is result as normal/abnormal . Bacteria, UA None Seen (test code = 21172-6) Mucus (test code Rare = 8247-9) Squam Epithel, UA <1 See_Comment [Automate d message] (test code = The system [facility] 92600-0) generated this result transmit britta reference range : /HPF. The refer ence range was not u sed to interpret th is result as normal/abnormal . Hyaline Casts, UA 7 See_Comment [Automate d message] (test code = The system [facility] 35034-4) generated this result transmit britta reference range : /LPF. The refer ence range was not u sed to interpret th is result as normal/abnormal . Crystals, Urine None Seen (test code = 17324-8) Specimen Source (test code = 2795) ALLYN (test code = Electronic Publications Specialist ID - ALLYN) [auto]Electronic Publications Specialist ID - tech [facility] CenterUrinalysis w/[id number] 13:43:44 Test Item Value Reference Range Interpretation Comments Color, UA (test Yellow code = 5778-6) Clarity, UA (test Clear code = 5767-9) Specific [place], 1.013 1.001-1.035 UA (test code = 5811-5) pH, UA (test code 5.0 5.0-8.0 = 5803-2) Protein, UA (test Negative Negative code = 89560-7) Glucose, UA (test Negative Negative code = 365) Ketones, UA (test Negative Negative code = 2514-8) Bilirubin, UA Negative Negative (test code = 15438-1) Blood, UA (test Negative Negative code = 59573-5) Nitrite, UA (test Negative Negative code = 5802-4) Leukocytes, UA Negative Negative (test code = 5799-2) Urobilinogen, UA 0.2 mg/dL 0.2-1.0 (test code = 17224-9) RBC, UA (test 1 See_Comment [Automated me ssage] code = 68675-8) The system [facility] generated this result transmit britta reference range : /HPF. The refer ence range was not u sed to interpret th is result as normal/abnormal . WBC, UA (test 1 See_Comment [Automated me ssage] code = 5821-4) The system [facility] generated this result transmit britta reference range : /HPF. The refer ence range was not u sed to interpret th is result as normal/abnormal . Bacteria, UA None Seen (test code = 67595-6) Mucus (test code Rare = 8247-9) Squam Epithel, UA <1 See_Comment [Automate d message] (test code = The system [facility] 93377-4) generated this result transmit britta reference range : /HPF. The refer ence range was not u sed to interpret th is result as normal/abnormal . Hyaline Casts, UA 7 See_Comment [Automate d message] (test code = The system [facility] [employer] 34485-8) generated this result transmit britta reference range : /LPF. The refer ence range was not u sed to interpret th is result as normal/abnormal . Crystals, Urine None Seen (test code = 92752-9) Specimen Source (test code = 2795) ALLYN (test code = Electronic Publications Specialist ID - ALLYN) [auto]Electronic Publications Specialist ID - tech [facility] w/Jpxwusalvqi8640-78-86 13:43:44 Test Item Value Reference Range Interpretation Comments Color, UA (test Yellow code = 5778-6) Clarity, UA (test Clear code = 5767-9) Specific [place], 1.013 1.001-1.035 UA (test code = 5811-5) pH, UA (test code 5.0 5.0-8.0 = 5803-2) Protein, UA (test Negative Negative code = 46213-2) Glucose, UA (test Negative Negative code = 365) Ketones, UA (test Negative Negative code = 2514-8) Bilirubin, UA Negative Negative (test code = 50541-1) Blood, UA (test Negative Negative code = 85103-3) Nitrite, UA (test Negative Negative code = 5802-4) Leukocytes, UA Negative Negative (test code = 5799-2) Urobilinogen, UA 0.2 mg/dL 0.2-1.0 (test code = 80253-3) RBC, UA (test 1 See_Comment [Automated me ssage] code = 57997-8) The system [facility] generated this result transmit britta reference range : /HPF. The refer ence range was not u sed to interpret th is result as normal/abnormal . WBC, UA (test 1 See_Comment [Automated me ssage] code = 5821-4) The system [facility] generated this result transmit britta reference range : /HPF. The refer ence range was not u sed to interpret th is result as normal/abnormal . Bacteria, UA None Seen (test code = 17361-1) Mucus (test code Rare = 8247-9) Squam Epithel, UA <1 See_Comment [Automate d message] (test code = The system [facility] 10342-6) generated this result transmit britta reference range : /HPF. The refer ence range was not u sed to interpret th is result as normal/abnormal . Hyaline Casts, UA 7 See_Comment [Automate d message] (test code = The system [facility] [employer] 41528-8) generated this result transmit britta reference range : /LPF. The refer ence range was not u sed to interpret th is result as normal/abnormal . Crystals, Urine None Seen (test code = 86941-8) Specimen Source (test code = 2795) ALLYN (test code = Electronic Publications Specialist ID - ALLYN) [auto]Electronic Publications Specialist ID - tech [facility] Center[facility] w/Gzdezwbdech1936-97-64 13:43:44 Test Item Value Reference Range Interpretation Comments Color, UA (test Yellow code = 5778-6) Clarity, UA (test Clear code = 5767-9) Specific [place], 1.013 1.001-1.035 UA (test code = 5811-5) pH, UA (test code 5.0 5.0-8.0 = 5803-2) Protein, UA (test Negative Negative code = 07097-7) Glucose, UA (test Negative Negative code = 365) Ketones, UA (test Negative Negative code = 2514-8) Bilirubin, UA Negative Negative (test code = 28888-4) Blood, UA (test Negative Negative code = 23221-0) Nitrite, UA (test Negative Negative code = 5802-4) Leukocytes, UA Negative Negative (test code = 5799-2) Urobilinogen, UA 0.2 mg/dL 0.2-1.0 (test code = 09117-6) RBC, UA (test 1 See_Comment [Automated me ssage] code = 55501-2) The system [facility] generated this result transmit britta reference range : /HPF. The refer ence range was not u sed to interpret th is result as normal/abnormal . WBC, UA (test 1 See_Comment [Automated me ssage] code = 5821-4) The system [facility] generated this result transmit britta reference range : /HPF. The refer ence range was not u sed to interpret th is result as normal/abnormal . Bacteria, UA None Seen (test code = 53233-5) Mucus (test code Rare = 8247-9) Squam Epithel, UA See_Comment [Automate d message] (test code = The system [facility] 81293-2) generated this result transmit britta reference range : /HPF. The refer ence range was not u sed to interpret th is result as normal/abnormal . Hyaline Casts, UA 7 See_Comment [Automate d message] (test code = The system [facility] [employer] 55602-7) generated this result transmit britta reference range : /LPF. The refer ence range was not u sed to interpret th is result as normal/abnormal . Crystals, Urine None Seen (test code = 13208-3) Specimen Source (test code = 2795) ALLYN (test code = Electronic Publications Specialist ID - ALLYN) [auto]Electronic Publications Specialist ID - tech [facility] Center[facility] w/Akprjuhfysl6081-46-95 13:43:44 Test Item Value Reference Range Interpretation Comments Color, UA (test Yellow code = 5778-6) Clarity, UA (test Clear code = 5767-9) Specific [place], 1.013 1.001-1.035 UA (test code = 5811-5) pH, UA (test code 5.0 5.0-8.0 = 5803-2) Protein, UA (test Negative Negative code = 36933-6) Glucose, UA (test Negative Negative code = 365) Ketones, UA (test Negative Negative code = 2514-8) Bilirubin, UA Negative Negative (test code = 60316-3) Blood, UA (test Negative Negative code = 37642-8) Nitrite, UA (test Negative Negative code = 5802-4) Leukocytes, UA Negative Negative (test code = 5799-2) Urobilinogen, UA 0.2 mg/dL 0.2-1.0 (test code = 64787-1) RBC, UA (test 1 See_Comment [Automated me ssage] code = 93899-2) The system [facility] generated this result transmit britta reference range : /HPF. The refer ence range was not u sed to interpret th is result as normal/abnormal . WBC, UA (test 1 See_Comment [Automated me ssage] code = 5821-4) The system [facility] generated this result transmit britta reference range : /HPF. The refer ence range was not u sed to interpret th is result as normal/abnormal . Bacteria, UA None Seen (test code = 75745-9) Mucus (test code Rare = 8247-9) Squam Epithel, UA See_Comment [Automate d message] (test code = The system [facility] 19770-7) generated this result transmit britta reference range : /HPF. The refer ence range was not u sed to interpret th is result as normal/abnormal . Hyaline Casts, UA 7 See_Comment [Automate d message] (test code = The system [facility] 29221-2) generated this result transmit britta reference range : /LPF. The refer ence range was not u sed to interpret th is result as normal/abnormal . Crystals, Urine None Seen (test code = 11826-9) Specimen Source (test code = 2795) ALLYN (test code = Electronic Publications Specialist ID - ALLYN) [auto]Electronic Publications Specialist ID - tech [facility] CenterURINALYSIS W/ HNJVEIEQNCX4085-27-35 13:43:44 Test Item Value Reference Range Interpretation [...] = 1521) SOURCE(BEAKER) (test code = 2795) Electronic Publications Specialist ID - [auto]Electronic Publications Specialist ID - [id number] 13:12:40 Test Item Value Reference Range Interpretation Comments RPR SCREEN (BEAKER) (test code = Nonreactive Nonreactive 420) EBV ANTIBODY, [id number] 12:53:45 Test Item Value Reference Range Interpretation Comments INDERJIT PEÑA VIRAL CAPSID Positive Negative, Equivocal A ANTIGEN IGG (BEAKER) (test code = 3415) Inderjit Peña Viral Capsid Antigen IgG Result Interpretation: </= 0.8 Al Negative 0.9-1.0 Al Equivocal >/= 1.1 Al PositiveHEMOGLOBIN [id number] 11:53:00 Test Item Value Reference Range Interpretation [...] 5.7- 6.4% indicates increased risk for diabetes (prediabetes)."Electronic Publications Specialist ID - ADMOperator ID - ADMVITAMIN D, [id number] 11:50:11 Test Item Value Reference Range Interpretation Comments VITAMIN D 25-OH (BEAKER) (test 15.5 ng/mL 6.6-49.9 code = 2764) Effective 05/02/2017: Reference Range ChangeNew: 6.6-49.9 ng/mL Previous: 13.0- 47.8 ng/mLRecommendedVitamin D Target Range: 30.0-40.0 ng/mLOperator ID - NELLIE [id number] 11:42:19 Test Item Value Reference Range Interpretation Comments PROSTATE SPECIFIC ANTIGEN (BEAKER) 0.0 ng/mL 0.0-4.0 (test code = 844) Electronic Publications Specialist ID - MITCHHIV-1 ANTIGEN WITH HIV-1/2 [id number] 11:41:26 Test Item Value Reference Range Interpretation Comments HIV-1 ANTIGEN WITH HIV 1\\T\\2 Nonreactive Nonreactive ANTIBODY (2) (BEAKER) (test code = 2586) Electronic Publications Specialist ID - MITCHHEPATITIS B CORE ANTIBODY, [id number] 11:40:50 Test Item Value Reference Range Interpretation Comments HEPATITIS B CORE IGM ANTIBODY Nonreactive Nonreactive (BEAKER) (test code = 645) Electronic Publications Specialist ID - MITCHHEPATITIS B CORE ANTIBODY, [id number] 11:40:50 Test Item Value Reference Range Interpretation Comments HEPATITIS B CORE TOTAL ANTIBODY Nonreactive Nonreactive (BEAKER) (test code = 497) Electronic Publications Specialist ID - MITCHCARCINOEMBRYONIC ANTIGEN (CEA)2022-03-08 11:40:49 Test Item Value Reference Range Interpretation Comments CARCINOEMBRYONIC ANTIGEN (BEAKER) 7.6 ng/mL 0.0-5.0 H (test code = 685) Electronic Publications Specialist ID - MITCHALPHA FETOPROTEIN (AFP), TUMOR [id number] 11:40:49 Test Item Value Reference Range Interpretation Comments ALPHA-FETOPROTEIN (BEAKER) (test 3.6 ng/mL <10.0 code = 1094) Electronic Publications Specialist ID - MITCHCYTOMEGALOVIRUS ANTIBODY, [id number] 10:49:27 Test Item Value Reference Range Interpretation Comments CYTOMEGALOVIRUS, IGG (BEAKER) Negative Negative, Equivocal (test code = 3429) CMV IgG Result Interpretation: </= 0.8 Al Negative 0.9-1.0 Al Equivocal >/=1.1 Al PositiveEBV ANTIBODY, [id number] 10:49:27 Test Item Value Reference Range Interpretation Comments INDERJIT PEÑA VIRAL CAPSID Negative Negative, Equivocal ANTIGEN IGM ([facility]) (test code = 3418) Inedrjit Peña Viral Capsid Antigen IgM Result Interpretation: </= 0.8 Al Negative 0.9-1.0 Al Equivocal >/= 1.1 Al PositiveRUBELLA ANTIBODY, IGG 2022-03-08 10:49:27 Test Item Value Reference Range Interpretation Comments RUBELLA IGG QUANTITATION ([facility]) > IU/mL <8.0 H (test code = 572) Rubella IgG Result Interpretation: </= 7.0 IU/mL Negative - Presumed non- immune 8.0 - 9.9 IU/mL Equivocal >= 10.0 IU/mL Positive - Presumed immune VARICELLA ZOSTER ANTIBODY, [id number] 10:49:27 Test Item Value Reference Range Interpretation Comments VARICELLA ZOSTER IGG (AL) ([facility]) 3.2 (test code = 3197) VARICELLA ZOSTER RESULT INTERPRETATIONS: <=0.8 Al Nonreactive: Presumed non- immune to VZV 0.9-1.0Al Equivocal >=1.1 Al Reactive: Presumed immune to VZV [id number] 10:16:02 Test Item Value Reference Range Interpretation Comments THYROID STIMULATING HORMONE 4.679 uIU/mL 0.350-4.940 ([facility]) (test code = 772) Electronic Publications Specialist ID - BLESSING [id number] 10:15:57 Test Item Value Reference Range Interpretation Comments T4 TOTAL ([facility]) (test code = 895) 7.6 ug/dL 4.9-11.7 Electronic Publications Specialist ID - BLESSING [id number] 10:07:58 Test Item Value Reference Range Interpretation Comments FERRITIN ([facility]) (test code = 126.78 ng/mL 5.00-275.00 361) Electronic Publications Specialist ID - BLESSING MGAMMA GLUTAMYL TRANSFERASE (GGT)2022-03-08 09:59:35 Test Item Value Reference Range Interpretation Comments GAMMA GLUTAMYL TRANSFERASE (AKER) 25 U/L 9-64 (test code = 364) Electronic Publications Specialist ID - BLESSING MCOMPREHENSIVE METABOLIC [id number] 09:59:34 Test Item Value Reference Range Interpretation [...] eGF R is based on the CKD-EPI 2021 equation that d oes not use a race coefficientEsti mated GFR is not as accur ate as Creatinine Sheree forman in predicting glom erular filtration rate . Estimated GFR is not appl icable for dialysis patien ts Electronic Publications Specialist ID - BLESSING [id number] 09:59:34 Test Item Value Reference Range Interpretation Comments MAGNESIUM (BEAKER) (test code = 2.1 mg/dL 1.6-2.6 627) Electronic Publications Specialist ID - BLESSING [id number] 09:59:34 Test Item Value Reference Range Interpretation Comments PHOSPHORUS (BEAKER) (test code = 4.3 mg/dL 2.3-4.7 604) Electronic Publications Specialist ID - BLESSING MURIC [id number] 09:59:34 Test Item Value Reference Range Interpretation Comments URIC ACID (BEAKER) (test code = 5.9 mg/dL 2.6-7.2 773) Electronic Publications Specialist ID - BLESSING MLIPID [id number] 09:59:34 Test Item Value Reference Range Interpretation [...] Borderline 130-159 High 160-189 Very High >=190 Electronic Publications Specialist ID - BLESSING MBILIRUBIN, [id number] 09:59:34 Test Item Value Reference Range Interpretation Comments BILIRUBIN DIRECT (BEAKER) (test 0.5 mg/dL 0.1-0.5 code = 706) Electronic Publications Specialist ID - BLESSING [id number] 09:56:49 Test Item Value Reference Range Interpretation Comments TRANSFERRIN (BEAKER) (test code = 235 mg/dL 174-382 541) Electronic Publications Specialist ID - BLESSING [id number] 09:54:11 Test Item Value Reference Range Interpretation Comments ETHANOL (BEAKER) < mg/dL See_Comment [Automated message] The (test code = 400) system [facility] [employer] generated this result tra nsmitted reference range : <=10. The reference r tatum was not used to int erpret this result as normal/abnormal . Electronic Publications Specialist ID - BLESSING GENA, TIBC, % SAT. (WITHOUT FERRITIN)2022-03-08 09:54:11 Test Item Value Reference Range Interpretation Comments IRON (BEAKER) (test code = 547) 74.0 ug/dL 40.0-160.0 TOTAL IRON BINDING CAPACITY 296 ug/dL 250-450 (BEAKER) (test code = 769) IRON % SATURATION (2) (BEAKER) 25 % 20-55 (test code = 2590) Electronic Publications Specialist ID - BLESSING [id number] 09:44:26 Test Item Value Reference Range Interpretation Comments FIBRINOGEN LEVEL (BEAKER) (test 258 mg/dl 225-434 code = 658) [id number] 09:44:05 Test Item Value Reference Range Interpretation Comments PARTIAL THROMBOPLASTIN TIME 31.6 seconds 22.5-36.0 (BEAKER) (test code = 760) PROTHROMBIN TIME/[id number] 09:43:28 Test Item Value Reference Range Interpretation Comments PROTIME (BEAKER) 16.3 seconds 11.9-14.2 H (test code = 759) INR (BEAKER) (test 1.40 See_Comment [Automat ed message] code = 370) The system [employer] generated this result transmitted ref erence range: <=5.90. The reference range was not used to int erpret this result as normal/abnormal . RECOMMENDED COUMADIN/WARFARIN INR THERAPY RANGESSTANDARD DOSE: 2.0 - 3.0 Includes: PROPHYLAXIS for venous thrombosis, systemic embolization; TREATMENT for venous thrombosis and/or pulmonary embolus.HIGH RISK: Target INR is 2.5-3.5 for patients with mechanical heart valves.CALCIUM, [id number] 09:39:26 Test Item Value Reference Range Interpretation Comments CALCIUM IONIZED (BEAKER) (test 1.12 mmol/L 1.12-1.27 code = 698) PH, BLOOD (BEAKER) (test code = 7.42 0950) CBC W/PLT COUNT & AUTO [id number] 09:37:44 Test Item Value Reference Range Interpretation [...] (test code = 2801) Varicella zoster PCR, [id number] 12:21:21 Test Item Value Reference Interpretation Comments Range Source-Eric ABDOMEN dy Site (test code = 0610375) VZV NOT DETECTED REFERENCE RANGE : NOT DETECTED DNA,Qual. This test was d eveloped and its PCR (test analytical code = performancechar acteristics have 2509577) been determined by [facility].It has not been cleared or appr damian by FDA. This assay hasb een validated pursuant to the CLIA regulations and isused for clinical purpos es. ALLYN (test Performing Lab code = *QDID [facility] ALLYN) Diagnostics [place] [id number] Thiago Ji MD, PhD [facility] CenterVaricella zoster PCR, [id number] 12:21:21 Test Item Value Reference Interpretation Comments Range Source-Eric ABDOMEN dy Site (test code = 7902997) VZV NOT DETECTED REFERENCE RANGE : NOT DETECTED DNA,Qual. This test was d eveloped and its PCR (test analytical code = performancechar acteristics have 0882541) been determined by [facility].It has not been cleared or appr damian by FDA. This assay hasb een validated pursuant to the CLIA regulations and isused for clinical purpos es. ALLYN (test Performing Lab code = *QDID [facility] ALLYN) Diagnostics [address] Thiago Ji MD, PhD [facility] CenterVaricella zoster PCR, [id number] 12:21:21 Test Item Value Reference Interpretation Comments Range Source-Eric ABDOMEN dy Site (test code = 6506155) VZV NOT DETECTED REFERENCE RANGE : NOT DETECTED DNA,Qual. This test was d eveloped and its PCR (test analytical code = performancechar acteristics have 1320240) been determined by [facility].It has not been cleared or appr damian by FDA. This assay hasb een validated pursuant to the CLIA regulations and isused for clinical purpos es. ALLYN (test Performing Lab code = *QDID [facility] ALLYN) Diagnostics [address] [address] Thiago Ji MD, PhD [facility] CenterVaricella zoster PCR, [id number] 12:21:21 Test Item Value Reference Interpretation Comments Range Source-Eirc ABDOMEN dy Site (test code = 2385109) VZV NOT DETECTED REFERENCE RANGE : NOT DETECTED DNA,Qual. This test was d eveloped and its PCR (test analytical code = performanceFobblerr acteristLuminoso Technologies have 1959736) been determined by [employer].It has not been cleared or appr damian by FDA. This assay hasb een validated pursuant to the CLIA regulations and isused for clinical purpos es. ALLYN (test Performing Lab code = *QDID [facility] ALLYN) Diagnostics [address] [address] Thiago Ji MD, PhD [facility] CenterVaricella zoster PCR, [id number] 12:21:21 Test Item Value Reference Interpretation Comments Range Source-Eric ABDOMEN dy Site (test code = 5306738) VZV NOT DETECTED REFERENCE RANGE : NOT DETECTED DNA,Qual. This test was d eveloped and its PCR (test analytical code = performanceFobblerr acteristLuminoso Technologies have 8727309) been determined by [employer].It has not been cleared or appr damian by FDA. This assay hasb een validated pursuant to the CLIA regulations and isused for clinical purpos es. ALLYN (test Performing Lab code = *QDID [facility] ALLYN) Diagnostics [address] [address] Thiago Ji MD, PhD [facility]2022-02-17 20:18:48 Test Item Value Reference Range Interpretation Comments SARS-COV2/RT-PCR (test Negative Negative code = 14077-3) ALLYN (test code = ALLYN) Negative result [...] the Act. Testing was performed using the [employer] SARS-CoV-2 assay. Fact Sheet for Healthcare Providers:https://www.tarah dudley/tex/RT SARS-CoV-2 HCP Fact Sheet 51-712738.pdf Fact Sheet for Healthcare Patients:https://www.ZOOM TV/tex/RT SARS-CoV-2 Patient Fact Sheet EN 51-692592N3.pdf Lab Interpretation Normal (test code = 04830-2) [facility]2022-02-17 20:18:48 Test Item Value Reference Range Interpretation Comments SARS-COV2/RT-PCR (test Negative Negative code = 73867-0) ALLYN (test code = ALLYN) Negative result [...] the Act. Testing was performed using the [employer] SARS-CoV-2 assay. Fact Sheet for Healthcare Providers:https://www.tarah dudley/tex/RT SARS-CoV-2 HCP Fact Sheet 51-033115.pdf Fact Sheet for Healthcare Patients:https://www.rudolph StaphOff BiotechtinTap2print/tex/RT SARS-CoV-2 Patient Fact Sheet EN 51-029157U2.pdf Lab Interpretation Normal (test code = 91664-7) [facility]2022-02-17 20:18:48 Test Item Value Reference Range Interpretation Comments SARS-COV2/RT-PCR (test Negative Negative code = 12914-2) ALLYN (test code = ALLYN) Negative result [...] the Act. Testing was performed using the [employer] SARS-CoV-2 assay. Fact Sheet for Healthcare Providers:https://www.tarah dudley/tex/RT SARS-CoV-2 HCP Fact Sheet 51-451424.pdf Fact Sheet for Healthcare Patients:https://www.rudolph gonzalezTap2print/tex/RT SARS-CoV-2 Patient Fact Sheet EN 51-166208D9.pdf Lab Interpretation Normal (test code = 05519-2) [facility]2022-02-17 20:18:48 Test Item Value Reference Range Interpretation Comments SARS-COV2/RT-PCR (test Negative Negative code = 17870-3) ALLYN (test code = ALLYN) Negative result [...] the Act. Testing was performed using the [employer] SARS-CoV-2 assay. Fact Sheet for Healthcare Providers:https://www.tarah carmichaelahnsen/tex/RT SARS-CoV-2 HCP Fact Sheet 51-919257.pdf Fact Sheet for Healthcare Patients:https://www.Member DesktinTap2print/tex/RT SARS-CoV-2 Patient Fact Sheet EN 51-661633W4.pdf Lab Interpretation Normal (test code = 29434-3) [facility]2022-02-17 20:18:48 Test Item Value Reference Range Interpretation Comments SARS-COV2/RT-PCR (test Negative Negative code = 31022-1) ALLYN (test code = ALLYN) Negative result [...] the Act. Testing was performed using the [employer] SARS-CoV-2 assay. Fact Sheet for Healthcare Providers:https://www.tarah carmichaelBrainMass/tex/RT SARS-CoV-2 HCP Fact Sheet 51-151672.pdf Fact Sheet for Healthcare Patients:https://www.Member DesktinTap2print/tex/RT SARS-CoV-2 Patient Fact Sheet EN 51-029874K9.pdf Lab Interpretation Normal (test code = 10651-7) [facility])2022-02-17 20:18:48 Test Item Value Reference Range Interpretation Comments SARS-COV2/RT-PCR (test code = Negative Negative 7586922) Negative result for this test determines that [...] 564(g) of the Act.Testing was performed using [employer] SARS-CoV-2 assay.Fact Sheet for Healthcare Providers:https://www.Managed Objects/tex/RT SARS-CoV-2 HCP Fact Sheet 51- 289056.pdfFact Sheet for Healthcare Patients:https://www.Managed Objects/tex/RT SARS-CoV-2 Patient Fact Sheet EN 51-454745E2.pdfPHOSPHATIDYLETHANOL, BLOOD 2022-02-16 14:08:41 Test Item Value Reference Range Interpretation Comments PHOSPHATIDYLETHANOL (PETH) See scanned (test code = 7912901) report See scanned reportBody fluid culture + gram [id number] 17:10:16 Test Item Value Reference Range Interpretation Comments Result (test code = 6463-4) [facility] [id number] 17:10:16 Test Item Value Reference Range Interpretation Comments Result (test code = 6463-4) [facility] + gram [id number] 17:10:16 Test Item Value Reference Range Interpretation Comments Result (test code = 6463-4) [facility] gram [id number] 17:10:16 Test Item Value Reference Range Interpretation Comments Result (test code = 6463-4) [facility] + gram [id number] 17:10:16 Test Item Value Reference Range Interpretation Comments Result (test code = 6463-4) No growth [facility] + GRAM [id number] 17:10:16 Test Item Value Reference Range Interpretation Comments CULTURE (BEAKER) (test code = 1095) No growth Kezkxgyx7701-04-19 09:41:17 Test Item Value Reference Range Interpretation Comments Case Report (test code Medical Cytology Report = 104) Case: [id number] Authorizing Provider: Milena Swartz MD Collected: 02/13/2022 08:24 AM Ordering Location: [facility] PERI[facility] Received: 02/13/2022 09:40 AM SERVICES Pathologist: Jam Villarreal MD Specimen: Peritoneal Fluid ADDENDUM (test code = x5elfFJdICHmjOZ0StZxIBY 3381) aj2ppf5FynNKqmZRuCEsbrJ AcerUptk21oHL0gP20DT9lJ JYwQtJ9KMZthpV2Syp4ATBt EPSedSZxL195z0ija4wghhA exNV4pUlmYCQnngnrMqP5XY frUEGarbsoQYt7TEonPYMmy PO7QDJkoLJoF5SrCVFwZD7t fid0BQN6NJdkCEGmDgQ1PJV joKYvQGAbrSeiPXkny142OJ O2TnZcLIEwytZecJsmqQ1rH nMyMCBUaGlzIGFkZGVuZHVt HTnrWMZdHCSapV4otVJ7oAG wsGcmMRAdyTmnb6lhFmMmZF R8dIZ2MDLzsaKaKZ8LGs1tM UThp3UvSQ2pxYOnqYwaeEig aHQgZXBpdGhlbGlhbCBjZWx agx3shPJnnQ== DIAGNOSIS (test code = y9mzhDYyZKAuc0ibCIOiyNY 3220) uZzEwMzNcZnRuYmpcdWMxIH tccnRmMVxlcGljOTYwMlxhb fFnNLKrqJYiR7PdwgkoTUsl TG6qJO2zlXonuYEekVHjPIO xNiAsg7fcu670dWHxw2plUX WQldgtkEh5yGxnD13dg3C4Q whnL76zrZYmPRP3SBYfKOJh yGXlVLNeXGO2ETMwsDAnH5n kVNGjWD0rxamsIVerKTfcHV VztRC8SOVzfCPaO2IoFEGjM MqnVOOujkq0JwImVz7ghUGr eTcyMFxwYXJkXHBsYWluXGZ zMjAgUEVSSVRPTkVBTCBGTF NYZUOsD7rCG6UXVU0OPYMOE DJCHChLEUFGY0WFAScpkVxa HKXpNARyDU3YH0VTKXOZNQD CFuTVCFdNT21CDzWZVGJyvm IzDEBvUBZaPOY6lXHuXX9jc 290aGVsaWFsIGNlbGxzLCBj mKJzoqjdEVnwRbsreD4okZs zgvNcgwOxb57hCPQiE6M3NB UvvcFmVU4nACNhq90haNTab 8QcuUevADZ0x6dwdEEaBBOv dGUxODAwMFxhbnNpXGRlZmx ttthhXLQdLSI9ofTvZMWlEZ ysHCKqFMbeYf8xiOLojEkdU oNrHMXhz0urjpTLeavosHk3 x5ntRSAbRxH5qEHwZVilK4o ernSeqWSmNQYsPEs6oI09BE XnjL7riSUiZAgrltThIsN4H YooIVYgXwX9OGRyiAXmMUBb V8dyFPCwGQhnDUUoZKfapKB pBNM5eZsgr0U5rRVipPRowP qjPkBfAlMxMzXOf7QoBGj7r UtxK9IyIXTmHwY6hGQvOGGw YVvwRYXhSONkezH5wX66OWc emtR3lAVzy0Fcz07il239gF 8gcXGwVMH7QLOcMOLqdSOiX MYkDPC0ZPUmpIXqS7atKUMq ES7hjevmDWgsCKsuWNQewVW 2SWHkkSAzE1SiTOYfMUrbHA Vsalj2AoEsJu3lwOEfzDedZ Bnwp2thj3reeSCaCzq4CPNz ZaNlFzivLNbcp1Ipq8cdAFB uez3zSGM8mFWncBbpc4K5zM PoUKDtoMOmDSAyUA9ntJSlT YZujB3gjktqSYGeJkHfnxog YAQynPyoexZyKc4yvApbNJD 6BIcsL5ulfJ3uFoZ4WLmvY1 ojuX7eUJo5VHkyFYKioRA2n wJ3WIRdmGIqW4DgrZ7yEOTh GD7jyjj8u0ccYPK6DVvbTWO rJxT0hzK9WERtaGGhNRUzfZ aoKLpou319DUW2SqIaFPLvp 8NlZ0EswYccB67iqFskJ10k HDVobHdarV9vbJgriL6yWbC tSaPmLRokjNjfSW5uJXPxR6 biqHGjDVJqULFgY4phRcJpe E6reCfyELytzmRhCPBaIcp8 VHMjsPAzAQMbAmn6IXUzELL rT40lljmuLRE7sC2ic8lue4 TvOHzaBBG4RBCki35gCRfqi aV4LNswBu80TKasPQG1IKcl YXJ9fQ== CPT Code(s) (test code h1pgmCJrVWKbrJE2ZzLrYXK = 3357) qw6xop4ParCJdtTNmUNgcdO FlmuAana84dMC5uE41TM4tS BUePmZ6UGEbqdF0Art1LXKi PTLwdNGkP123w1kvh7ensfB dxAZ4rUcxPUUnkfxwVsQ9US stOQJfpduzBOe7VCwfTOLur ET6VQGinXMeS4XdOHHjNT4i vps6ZZY1ISiwVOInIeR9VPL wsCArQDRshIprYKyhn185RQ V6CgFvMBLnlyUrlBmqgK7cM qGwIAX0NDZbMWqqLSeqWLRe cGFyfQ== CLINICAL DATA (test n6lkeARzVOEbbDP1GaNvIJU code = 3355) na6mec9CmrTUcgKWdGYlkqJ GywxOdgv45vUK4zI51TP0mL LNbUoX9OFRmqcC5Gyt1QXEc GUGphDMaS210i8qex9pshsK tuPR3tNpeVPKehiguEqM5DV kpFFTfxmzfYXx6NPgjIPDec XJ7MNDvbXKuO8KwXHGjDR7a gjk6XOG4OFnrKRTvLtM7JJV ibHAiZRGunNseKHlgi950HB A4XjKdPOYmdsPewWofzV5cI nNjGFLNj9QwrSGaNTLRI1Qr CQZ3F2acBDRdi69oCU2iDZH kBDDeiPLifH2awYFgKWWmZ7 f8OFLzGGqQVNgykG7vhTwaA 5LkOIjumv8vEVDsE9wcSNNi RBNffO6nOPWfja1= SPECIMEN SOURCE (test k1heqYYeVDLaeUL4LgOdJUD code = 3377) iv9vmh9CuyDTavAKsIRenxG YwccTdiv26bHA3mW89JU9gU INcTmJ5YTOkbxV2Zgz6UJHg GPCrwBQwX416h7azs7qrywR vqUV9nFeqBFSpawvdEiD1HA hoZEIitpibSIi9VHglJSNdm UF8FSHakBWjS2YpWSYqEU1u wyf7KAU6ZWbjZQUtExD2DGG zgYBtMFJvyZlaSBgqo668XT A3MzRmXEImxiZyhWtgmJ8yU yKaHXJDGGLWWI2VQWDFTBSH VUlEXHBhcn0= GROSS DESCRIPTION u0rihFAlEFSinBHJBJSrE2w (test code = gjtNjVQTyaZXwG6ZukwapWZ [id number]) rxAL2rFT0ldBaqbLVjwFFdJ X2VZPGhHzMfXAHglOTzviHz OjZbNKKsiHSzoQC6VEHlDJ0 ataxmYDcnGTjnWRYvscQ9AH OpdTHvQ4AzCNLsGM3phidpV VP1SQfyuI9qyrDXXbbeAy0r dHRibHtcZjFcZmNoYXJzZXQ tBUBncHzbJIIxPTg7pY5HPy uhKQZ7UFBZGqcfFKWrBF4Yq 2xcHUJbhHUvIGF6ZCukvUJv OGWkPTMtRAq7AXFjBXfaiMI nFD1nkNmuWpzmxUkfq8WmwX BcXGlkIDUxMDAyIFxcZGIgI D0XQnXeSWT5ZvVwGNFwQKn4 WTj4RP8JAdJhVENqDXDnWfD sSKVjYRm3XTfaPZ5OSTV8JD V8BSh8KxJ2OTKqYqQpICYsZ iBcXGYgQXJpYWwgXFxmbCBc CK8gfRttxIMbhjXJTkURVJR knB4gNODwZNLhpNsjLebqAJ MiBLzeQNTlJ60xh6CGm6ClZ V7FFWr5lhRumhcyeB4oTZDu kuBuDQhaxHFjI6bmPjAwWMK TWRYixTUtHLA4HTIvkPAqRN 2qKHWuXwx4lMU1FLAgQLSjj zYuCPEoW9i7v3TiiR9nQGKx JWCzLBceRGDpy9YkOENfYAA mLKNsMZPtPDtyUZOop5NrNB lvujXtoWoaLGNpdpDwh9TuW NjauwNunVXaJkGgRQQwJC6v ICJ9VhG2AnPoMhXeYVmywVt pyD4xTSWaJ60rc6KSo9QyET MyVVwml7xbbWmyt2DgwNWmF KxuYIOfgKXoIPbxzM2rXjHe r8razVy0BUuryrG4HVMvtf8 OYlgypA2tCfSct7uffRh5AZ OFNqerbqW7v4uhqFmtl6Win TErAA2ZPj7= MICROSCOPIC o3izvMJhHRPolOV7BhGuYQD DESCRIPTION (test code nz0xel8LbyYEehMHnXRuvbW = 3371) YefmNqga52pXP8qQ27ES8zK OYjIuS9VCOukrM4Smb9WYVl WFEiiTAzO162q0ipc2hnjkW jcTR5zIzgLDDxqnlcNaD4KE tcNWMnzqmvVTs0WGqjHVLyo IX6TVDtdOPaT7TdBMQzSL8s dui7UPJ4CFluMEQvWeV1JUX pjGEbIPTenQkqGQlsf596LG Y7BgZrGSQktpLunLyhsT1jF aMkFFHWJHMkv0DaYWAiFXyu YXJ9 STATEMENT OF ADEQUACY Satisfactory (test code = 2757) Gross assessment was [facility] performed at ([facility], code = 2777) Department of Pathology, [address] [place] [phone], Technical component [facility] was performed at ([facility], code = 2778) Department of Pathology, [address] [place] [address], Professional component [facility] was performed at ([facility], code = 2779) Department of Pathology, [address] [place] [address], [facility] Test Item Value Reference Range Interpretation Comments Case Report (test code Medical Cytology Report = 104) Case: [id number] Authorizing Provider: Milena Swartz MD Collected: 02/13/2022 08:24 AM Ordering Location: [facility] Received: 02/13/2022 09:40 AM SERVICES Pathologist: Jam Villarreal MD Specimen: Peritoneal Fluid ADDENDUM (test code = a9croHDjEWNnrJB0QyDzITZ 3381) xq3awl7QfuGZqvWPwRGpggF WlioOgbs67dMY1nO86NF8vJ YRpLsX6YXHpkcR2Trd2SNDn TESnmDWeB757r8bll3gpptG lzTF9gFbvNVMdojvbVgW3GH lcVGSlhyxkLTx0TJsqPCImc GC3JMYcwHFrV7KdFTQxCS9m fgv2WCK2SYdhHHWdWaA8KLN sgABxGQJyhIdgIWhqg836ED Z6IbTlDBYswiDqlWzlsS4wD nMyMCBUaGlzIGFkZGVuZHVt RSceUTYkIOBkdC5qtLT6iYT mnHrpCXVcuJsfj1ycHtUtXT S9lJW8FECmrpTvBI7OGt6xL THnc6UuVG4njOIzgFasrRlf aHQgZXBpdGhlbGlhbCBjZWx mjn2pqIOgaH== DIAGNOSIS (test code = b1romKAwPWEys5osCQYsnHZ 3220) uZzEwMzNcZnRuYmpcdWMxIH tccnRmMVxlcGljOTYwMlxhb qJlZBSutPPcV8KiowapLGxd TL3sLT4czTdngXLbqXUdSEJ gZoAco4ubi803eQJjg0hhQA SSieohxTg6kBesE94dn6W7A ivrX88fnTStOCD3NSChQBUk rFIlBJNxOSD2ZIAheKZuO5s qICTsND7ayrfvEDyvFWobLH ElnEV3HZBwyJDmX9JlFZLvD KooATCgyba6NsQoJc7ywOSx eTcyMFxwYXJkXHBsYWluXGZ zMjAgUEVSSVRPTkVBTCBGTF CPUXJbP1yDC7EDCK0QIGGKL CNFOCcSMLHNS4TDXCyoaYkq JGNtDLDjSP1ZP7YGTGVTHHL FGmEUAGpTF21CZhHIQUBeyp AcYYUdYPGvTGT2dRKxHP0ou 290aGVsaWFsIGNlbGxzLCBj pJLxzsliTIjyPjufmZ3efSj xnvUpofRls93gRCNiT9Z0VB YdrvQiQW1gLEMfn11nfANik 5EbjQmaJDF7n1rqeTYbIEKx dGUxODAwMFxhbnNpXGRlZmx baybgVGIqCFQ8nhJjPGFdDT oaGYPhLJhrIw1oaPJroNauS wQbKQXax9udikQWlyopcRs7 c2hzAUJoPkJ4sXOrREywK8h dgaQusPEzLBWoKRb4aC20WM LbsP4blNSuAWkshaDmTrD7A DlhNTQcXxR2QWYncVIrXRSw L4mmAKRfDQkpVOBdRFlttZI fOZP5oTrli4Z9eECxyZBhiI qcDzIdPdFwAkSLs3CcRZh2j SogS7JhMUYnWpF9qOEaFGYx HCodOXFpCYAhqyL6tB04QEp mvqL3kRYhl7Jyv48jd143uA 6rrUOmUNX9YBQiTBAugPHyN FTrFQY0FIIusNGoW9gfNZAq BN6mvjrvKTmoTExqJMOaaFE 1YJDrzWEmZ4QeSVAtKSrbJW Xzryl0CwXfXj5gnXSqaJebU Dvfl9xgn5kgcUYyViy5WQFw IuCpMufmGBaxe1Saz1pbYQC ihm4tOYT1zRLynMgbw4X0wH XxPLUwwGMyENEoHL6ddZFeX CRrrC5watfiOCJvQkQxhwuy SVDnwOsnejIrRq0yiGunBCS 4EXjoT6pkoJ8eOiU2NVbqN0 urdO7xSVe2ODevBNNffVL9b cP7ZHMenMRlV8HpsH9zETTm OZ0qael7x9biHBP2ZTedDJJ yNxP9bqK7DYSrbPExRZRkeI zaLUwkr138UTI0ZfSlCIJbl 3XzD3RtkNapC20eqVmvE45p FWMedQqtpY4uuKgrnZ8dFcD vOrIpZQbdrZjkWZ0fJEIbT0 mysPNpWHMvKWBnQ1ixWvXmc D5qzAntRIaxjoOsHGTbTzf5 MQFqeUQnBWUqOvl2GGPcXTV iS09gvicdTJA3bE5jv4fcb1 EuQCffKOP0NLGlv02nOKlpe rZ5YBtvWd16TBjuQXQ8GSoa YXJ9fQ== CPT Code(s) (test code f5mqhHCkRAXhyVI4HhKrFPQ = 3357) bq5wnk9ZrhJAuvRXpOIaffK SubbDfro40ePW6mH87HS5aJ DJeQuS5ETDdkrG7Pkr1HNPc BNBanXBtP147y5zca3bxuiC upLQ9aTscXGPxmljaIjT6JX xtBPHchlfkFIm9XXvbMMMgd ZN1ZUYwfXWqI5RfUUTyOP0v ebx3KOG2ZYezGNDtQuW6CNN ugYBcLSWpuZibVNyvj046IT F5IaFbGFGklqTfdOvfmH6kY nIiZLC6UJKxNWeqEHntCXVv cGFyfQ== CLINICAL DATA (test h9smqUQbFOIarLO7GfJfJXZ code = 3355) zz4gxb4OifSAhjUNvIFyieV OsixOjsw19bGE7zB08EQ0cL ANvLvZ3SMYipfR4Xtf5MQWf GOLjdAIjZ015l9kld7mxisU gmJR8qYjcNOGfspgcCsM4SI bnWAAvyaazIBq3WBxjRZGzu TB3JHNkeFNkR1WiJUEfTF5p ugb1PCW1ISaiNQSkVzM3SVR luQPuWTHapHqzMRryb191SD S8ZqRdGVYmjqNffEwriX6lU jEiIOTYp4QqoAUzMQLWQ3Wi RYJ8Y3fuZYAwu60lZQ9jQND hBTJkhOUumX0vrOHzIEFlQ5 g4PPKgECcGYBmqwW7kuSxrA 4VkZOivou3nMVDfF3mzDMRv VYStsL1wXLUzfv9= SPECIMEN SOURCE (test t0grcVGoHBPdxCQ1OfByAPK code = 3377) jv8ilo1PwwNLraNBlVIlxqU HgxeGshc07hYX4jK16HH7wX HYwNhW5PRHabeI8Nmd3GCDo YINpwJNuM879v8wdd8dcgmI kuNE0lQtvGBMpcugmPkW6FC oiKCSlgzgmSZx8WZnsMHDas OY9CHTwoSJhB6RnWIZiRO7y ycn9FOE8HDjqGMIeDlX4RNO gyXFcKYQpzNibLQbll496VD S1JwAuDKJhoeLsiPacfH3wH vJkQKFUJOBSSU8OOKYBMDFW VUlEXHBhcn0= GROSS DESCRIPTION r3xucHTiULLsmCUQYWVoM8s (test code = dtxVmUYWgcUOgU7OukjyrAG [id number]) uzGJ4pCM3mbCmqwCMvyRVlS V1PQEDfDnYkDNZbxTDdoeOf VyQfCKWiwTOgjIS5UFKsCS0 ricylRKxkWOpaVMDtnqQ9PF JefDAuG4DgQKNjAL8cjhuxG QN2BBgyhR3sdyRXXoubYf4x dHRibHtcZjFcZmNoYXJzZXQ hSECpiXyfUFWnBBt0cR9DIf kdMVM9QESYVabyNEAoPB5Vx 6cgRAHsnSXtTXY5ZHqngVVl BIOhCMFfKPa7QBGoVLuewIT qRG3ujLrjXsohwOttn9FxnL BcXGlkIDUxMDAyIFxcZGIgI Q3GSeGnRJS9KhYxZDYqERu8 MAa2QY2XLsGxRESaNGCkBpG oVQAzLFg9PHczIL9HMBT7MN D1NEi1MbE7VCEkYhZiONSiD iBcXGYgQXJpYWwgXFxmbCBc XC0maGweiQKysmLJDmDLYFS klB1wDGUjPPAbdIotWtfzBF VsKCmlKRGhK78cm7GNa1OjN J4DLMm5xlPdusdkhR2hZCLy nqUnWNrbhRSoC4ulSzWaMVN HMNTppPGnRGS6QSFxxEGmSM 9oGYMvGad0eXV4NBCwXQHoc nRlCCWtO9q7c7XmtZ3fDBVi VIJlSAwwKHExt7OgAKCnQPC zNTTdCLElDVxvHJGkc2FwMC ayfxHabVxaMEKphrVmk4ApG ZxmyrYrxRZuQtXeMGNfIH2k CQO5VzM5FbGiTfUzMBgpxOi grU7qDKJqD04fb7QKi6AbVM MgGHxnj7gunAwnf1PyaOIeS KsnMJSvxWMwLGunuJ7gJvBb k4tncVn6DHqqxqU2HKXvph4 GXwvmlE9zVfTau9iwlZc5RQ WTLyzdgjX2z2dhlSxdz9Fxx OToXT5HMm2= MICROSCOPIC g3utbZFmAEGbhVT8ZaHaRBV DESCRIPTION (test code wo9yds3UxiFQdcIHiYWonmJ = 3371) OkghAzee74kVL2hZ88EV2gU PYsXvX4DXVjpcF5Fdn4KKEc ROBokUByP618w0pen1oaaxQ xoXU2hTmiQNJnnpvvSfZ7HJ xcMMRojulpFJb7AFbwYYRkz KJ5IZShzFCsP4CkNIBpCK0z igv1XFA1PVnpXERnTcS1ENZ woNTzMVYtiElkVKlcv517RQ T7IjTuEYMpnvDngOuxoP1yA fRjRRDUCYCaw2EcPCVuBQhq YXJ9 STATEMENT OF ADEQUACY Satisfactory (test code = 2757) Gross assessment was [facility] performed at ([facility], code = 2777) Department of Pathology, [address] [place] [address], Technical component [facility] was performed at ([facility], code = 2778) Department of Pathology, [address] [place] [id number], Professional component [facility] was performed at ([facility], code = 2779) Department of Pathology, [address] [place] [address], [facility]17 Test Item Value Reference Range Interpretation Comments Case Report (test code Medical Cytology Report = 104) Case: [id number] Authorizing Provider: Milena Swartz MD Collected: 02/13/2022 08:24 AM Ordering Location: [facility] Received: 02/13/2022 09:40 AM SERVICES Pathologist: Jam Villarreal MD Specimen: Peritoneal Fluid ADDENDUM (test code = y5iejNUvTMVaaQK9PfKsKQK 3381) we6wjj2QocMViiGXjXHmsoW JsckEsjq89rHK4iY92IA2gZ PZiPeH7RENxjhB6Opb7VZJj ZABgyGMzD607d3ayv5bcrhN mbIH7pOqxZIRvudagLcX5JF bpCRSzsvfmDZp6HYhrPYMty IW0JTCwgLVfC1DtJLEhMV8b pkl4LWE8UAtxGKEwTkY2LRX kzUIuWCHwbGhtHUivf183EX S8IaRjBYEewuPifGfneK3lO nMyMCBUaGlzIGFkZGVuZHVt JGzzVEIbKEQklJ0dtKJ5lJG pqVauDOHudQpeo6qsEbFjFV F4aQZ5KRBfvrSuAX5VXz6dE UWbc8UpCQ2ddYWwfNmptLqd aHQgZXBpdGhlbGlhbCBjZWx zwt9jvZIteL== DIAGNOSIS (test code = i7ehkCOuGAIzp5nbYWHmzLJ 3220) uZzEwMzNcZnRuYmpcdWMxIH tccnRmMVxlcGljOTYwMlxhb wMxFAGpnLIiZ2JhbjvvVKys DL8aKI4ulZtymUBcwPZdUBS kHkKag5bbj230xAZdy1aaDZ OWsfdzfSv3hJwwF48lz7X4E ujvM58wyUQlBUW8DSVnGRLw gLZzFMUcMYY7TWTqpFKhG6m yOYPhAG9nvqzbYTifRQeaGY GxrCT7LRLesZZfT4PlRJVhE TzjPHZjeqn6PvNyWd6bqVMe eTcyMFxwYXJkXHBsYWluXGZ zMjAgUEVSSVRPTkVBTCBGTF NXOUCaO8gPU7VFWR2TCTASF VFFKIoOMFKKK2KQSDgpzTqm ACDuEDEiRN6DE7GNOUECFBN TZtOBJCwWG86RIxCUYBEwwn UvYHOlSFTsHXW2cLSoLW2gg 290aGVsaWFsIGNlbGxzLCBj kOKrzmhjLPbcQttdsJ2rbTp paxSzvoPtg05jHRRfT6I8BA AcqlAzJM6xTNOgl85zkHCwp 2WvmSbvHVY7g3jaeNDsKONh dGUxODAwMFxhbnNpXGRlZmx nznovJLLjCYW1kePzDWHyRJ zdUQHqLWwfAk8ywCNstTzoR lGuTSMpo9gtgpAFccxeqSv4 c2haGXUtDbQ9cPEdHUoqY5o iaxAyvXKtLHAiLCy5qY11QQ OzyC9dcTLyBNlulrOgKjQ7I LfpIJLxHsS7ZYIdaYIcAAEx P4bhKLGqGTxwCKDvJFpjwII sXIJ4oRtjf7O4dFBagWNcdJ chZgIfSzZbFiIEe5KxHBt6a IegI4QcKYEjVhL0bEKlHGQp MGngVGLaIIKwhfO8nC06QVc ixlW3zDDwz1Kuh68tz800fO 6zlJIrVPP9DBBdVLSdkFXwT PLuKQS9GBHpaMDbN5nhNWIe UB9zvqyvGCrxBQyuLXNieWD 7CBCjqIOeW6MaYZHpFLrqLY Ryipa2MdYlOd0yoFBqnOvwN Oevy9aoj6fgyKViFie4QPVd GeEgLroyEHtpx2Rbn4zpEFC ixg4wTAS2tVJkdMhlp1Y4rV BmGKPvbCXzHQGhMX3oyYMlG FGpgQ4qnyrcZWYvWwXrqabl JVFtzLuhuzQpHv8gcGpaUMT 8SCnjU4ukyC7eEcM6QWykS3 azfA8bUVi8KQfvDAEomRP8h mG3LHBrgQOaU5KxqJ4fDMZw PJ1qirf0q7riJKV4UDarGWJ uPdM6mgE3ADNsdPPdVBEfqJ tgXKavy147NCC6RaEvSOOlp 2GaJ3YvtDdqP99dtNpqF39d YQBgzKzadA2uwFnjgO5lJtR rMpRaCRmyiGowGY4xMAMpN4 ipyKEcLJMyHAApZ8crSgEif A8gwHgyXOyywpKlPHQpMpf6 BTKuxJBrHAUwLzo0DIWfIPE pO26klrkoSLD7kW1ie9dim6 SmUQbhPYH1LXHpy81dZCkgd eT6OSetUg26JSqcJIH4CLnl YXJ9fQ== CPT Code(s) (test code m9irgRTfPKOhgDQ9KtDnBFT = 3357) iv0uwc4LmbBPwaMLtBXkpnH HflaZkvq12nSR1hC67XV6fK LXhXrM5VSRjtvZ7Vbz0PCXa WNKvhAQwC433h9njc4netvT fcJA4fImfPWRtbrggPiO5PX wzNORyiytpHKc8XPmjWPDgr BY7WDLvsMFpT2TmBELkHE3j oll8KQE2ZVglWWQkBhU3RWV jjORwOCGydBnyAShlv775ZU B7VjNzFZFlvbBgnGyjhD4bE mHqUBW9UXFyLThoNEzqHPHa cGFyfQ== CLINICAL DATA (test j0lxpQHnCUXcdLP7RjJgAOT code = 3355) hp8cwd2TgnGNpbNJgBLnxjF DirxGssq14eIU1xQ43QB6lO PJvKmO8HTEaudF8Ygl0PKFn FNNjnWCsY457x4oxl1zkkwE ucQP5uMqnTRYkxozdUtG9FY xlXHOapqzePAu7IXsoFIJxz JH1PBHuwBGyU8NiTETnBX5e ppe0THR4TPbzNEIsBgS3GDH kkZFvMNHepLgrPVvmc271UA F2GwFzLEFhiqAwhXmtrM4tR hFeBVZFx8DyySXrKQCPQ3Yd IYM0V4ipQSXfs37rAN7qXTW zWHYasKTinN1zwOHzWEDwX0 c3YTXrURwOKFkjzM6pqNnmA 1IxLQwisc7vPNCeH1lrHDYi KKHnbS9fNLTtmi3= SPECIMEN SOURCE (test h7cpzFVkJLSgtIE9FlLwVHN code = 3377) kx0avj1WdmKJcvLBnZSjqzO CccmZtoz05qEQ5eL16GK6eP DLsCjE9CLLwzsG4Xpe9KXBt MVOjwOWxX429s2zwu5hveiR geOF7nCspTLCqollsQfX5HO kqHFEhyijjMWn4GRwiIYOdp GI2OCPowTRaQ1PaONPjPA6f sno4YDY8YFhzVEHlMiX9XBO duGSmRREfwGurDFsjn742ED C9SuHpHLJwdkOhiDhqrS4gY kCuUBSWKCOBID9DMCIPRSNS VUlEXHBhcn0= GROSS DESCRIPTION t0cgcXWgIIJcqAQHVBWoD0p (test code = cxjMqKOKhjGHvX1XofwlzZB [id number]) saTM5bWK4kuZpetUYpqIMsK M2YPTNiLmXsURBitNEpwxJq NdLxGUUzwVXylUV9SRIcOT7 olgxnBJoiYRijILDmcdK5XT OgiINlJ4EwOBArBF6gdjxjM BO5VRrkeF3cqtKJDvgwIa9q dHRibHtcZjFcZmNoYXJzZXQ mEACqmPqhMYTgWHm0qM0ECl dnCKK0KJELYifrDSWkCH6Lp 3ruKFVraESgBMG6KWfcnGNw OPKaOWPkKJn8DBDhJXqwhCZ tDW2ocZuwEhojkPyux8KyuV BcXGlkIDUxMDAyIFxcZGIgI D7NSeHsITH4AcXzUYJmNFm6 LRv3UF0TLaKiOGMuBTZbAyN nFXKhYAb0RTxcNC3MSSP3KT N8UFq9RvP5AWKwAgBkUJCcR iBcXGYgQXJpYWwgXFxmbCBc MB6yrZmpmTUnqwFKYhGSZVC weP6sFYFoIENbcXizUzhgXO OzAVctLDNtA27zy3VCx6BzI B4LSIx1liWectnfdP4oTWVy uaHcXYzlxBBiB4rhWaObKLO VIDVcvRYkVLP5VOVolZBwXU 6aDHHiLtt0iEV2YZFmJMEbt sKlKHCvM2c2n9MykO1uJRDa LEEaWHovVFTno7AxRXOkUUW bSLApQTEgCRqwJCBrz9OuYH npmmTeaQslHRZpzxHvv0XrH ZefqzZrcJZgNfVyLWRgAX4v TCO3EuG0JlCkStHtYYhocEg oxD0pUNMzQ88pk2QYh0XhPJ JyBGtof0zbtUlcx8XoqDBuT DeuQCGxwXFdRVivxC1eUnBg e5kfwQf1WFirbkD0NPGany0 MHlvezV3vPmLtt2zdkKt3XG ZGYwfkooC7p1kqjLrqy6Foo BUgLS1DIk5= MICROSCOPIC q2pijGOtTIUbtGM5OjDuODK DESCRIPTION (test code ld0qiw0LkgTHtvHVyCEharT = 3371) JeqzCklr83gPR9aI39AN2nG NAoSxE7HLUcbsO1Ppw4RRIu WGUrnZXtJ065w7ucd0cafxF piIG5vVfzVMZstqgrVeG0KV xlWWFiwigcCOa3CSldMVUup ZD3TTPkoCXqH1WbYPIyZO6z vnb1SWF7AKgrDPRiWhT5YNI fyBNkCHJspAfmLCvos150GD F3OcFsCEEnyhEnwGwmnU3bA sOaVGSBCVBib9HuSLAlQRwh YXJ9 STATEMENT OF ADEQUACY Satisfactory (test code = 2757) Gross assessment was [facility] performed at ([facility], code = 2777) Department of Pathology, [address] [place] [address], Technical component [facility] was performed at ([facility], code = 2778) Department of Pathology, [address] [place] [id number], Professional component [facility] was performed at ([facility], code = 2779) Department of Pathology, [address] [place] [address], [facility] Test Item Value Reference Range Interpretation Comments Case Report (test code Medical Cytology Report = 104) Case: [id number] Authorizing Provider: Milena Swartz MD Collected: 02/13/2022 08:24 AM Ordering Location: [facility] PERIOPERATIVE Received: 02/13/2022 09:40 AM SERVICES Pathologist: Jam Villarreal MD Specimen: Peritoneal Fluid ADDENDUM (test code = i0noiMWtFCTfiDE5BmKmWDB 3381) zo0aqm9GlyJXunYNuBHzpoU AkllChtp03dIJ8xN79RX4yG JTkDtJ9DPYtksM1Azn8PUWo AZDqeJRlH749d7nfe9zxjnF xpPW4bGswASUzaxlrQrL8UT xrVRHljqbmYYj1FGcnGFSjk JV0PPGyfUSnM4AgICOoAA5o bky6FGN7ZKhyVNJdFgH1JQC jaAJxAHEquBrbFEkpi863IB G6VrNaGMBbvaFtcGgjwW4gZ nMyMCBUaGlzIGFkZGVuZHVt TBwyWAPrRWXawL1omNZ7tFW cgWtzMZGnsBdcp5rmQxLtUR N6iSS7EMIfdtFwHI7RBs7qR RClu2QwXD7swQEbgNpegHvw aHQgZXBpdGhlbGlhbCBjZWx gjv5doXJyzJ== DIAGNOSIS (test code = e2bxzLGhBNAcr5rtCQOayMR 3220) uZzEwMzNcZnRuYmpcdWMxIH tccnRmMVxlcGljOTYwMlxhb gCjVAAzfRHjZ3EoepaqSLwl OK1iED1tcTstqTExtBJfTIN fCqWdt4zmi020sQXmi1owTH KKqcufrYx6vMdgC16bk9I8O zunE91zfGKpGPH3ALUdWFQg gZYzEZFnSGF2HTPggQIhY6w dFMNlIO1ynvjaFEfhZNmgRF ZmnLD1DAIymBRjW3OwVOJoT UkqSVUbqtb4BaEeGv1kmAVh eTcyMFxwYXJkXHBsYWluXGZ zMjAgUEVSSVRPTkVBTCBGTF NPYHYqO5yLY6MDVV2MMLUKG UKIOOpNRHPJT7DOFEvytMlr IQMzPKPoLR9CK1MHCHYSUPA DVcJZESgFS23EMhZEOOYsfs NgYINjCLFoCAQ2vSDqUP0lg 290aGVsaWFsIGNlbGxzLCBj uDTuahztSXyxChkbsV6erJm gndWvulDii32yNZPsW4L5BO KcvaRcEW4oWUSyl86enDRxc 0RldXwlRRE8z9gjyPEbLIPi dGUxODAwMFxhbnNpXGRlZmx cqpneOMJvZEX0wiXlMEVtTD krITVbKOdrZf6anOJjtXzwF fPgWUZtx9rsoxDSiursqOc6 z1jlXVBrZvO2mQDzEXxiK8i eexKacFFwMUHpSGh5fH78MG SzlY7waQRoUKnmanByOgH0N McaUUIuOfN0XTIlgJBxIORe X0woSTNdSXhuYFSyCXmwuIG sWOA8eNxkg8A2xDIikRNgfF pwNwQfCjTyHbUFa6KqMYt0z NeuL1XzGKBkObC5vMSjUETd QHykRMBdORSnbbH7vJ83SLu ixnA8iSMab1Xlu98dy640wJ 9coCAiZRF9MZJoPUImjBJhE OLtVSA9IPTgvWAhP9beAFYq LM9enyxyONlwDLcwIGXwlIG 4BHApcIPcE3LbESFjQYwePZ Rxgwg0QqEjCp5arBHmiCusV Vctw2rfa4mqaOGcSsn6DAFu XvNnUynlMQvhl7Vty8tnPKT fyo3nLQB6wMHycIwsb5O9mP SoVALmpMWjHBTxOJ0fkKBcJ SZapY7caxohAVZqVzRaiqka YPScuNsrhaPsJf3skLdiAEF 8SEamZ5rmwZ2jVxQ2UImyP6 lleK3kYTe5LJhvMLBjaGL8x sX8VPXimKQzK4JmkD8uMCUt XD1lgne6s9phQAP2RZpyDWA kZmN4aoJ8JJXkrKIdMFHwyH jtRNqgd730PWV5SdOeZTZdx 9MaS2QtxEjeK49hbNjfR38l BGCvxFtsyZ6ncKscuL9lYgR gQlDxANuqqKhhZG8eHNWnS5 tyaTCpDVQqJYRyC3lnZsQfg Z5jcLneFKhpbaCdYDIaTni3 HQOadRMlXADkNvi7BOQkYVU dL72fzareOAV6pR6fg3mzj9 WfLAdgCXI9DLNvv20fBNcmo cY6OCosAq30XCakHXN6ONrk YXJ9fQ== CPT Code(s) (test code l5dmhYPmPWEydTE2ZeOiYFE = 3357) rn9zfq6SbnZGvtKXrDLxzjD WgtwZdzi22xOE0eL44JR4pF LVtDpD2XNHwohJ7Ilv6YGAl TUAxuJBrS170b2pya4iyxlR rcCY1yUmpMFTotiqqZlH5EP kbGQZrhuxkGFw5GIvxGVNcd BU0QCSnjPCeB3HpZULsCK5y gdz9TCF4GZueXMKkWeC2MXX iiHMiDTRrdDbnBSixu858WA C4StDkCTOkoqMosLjbhS7fK mXgEIX0FKYvXIlsGXamJXSx cGFyfQ== CLINICAL DATA (test o4yghJVoMFIxdYA4BdHpRXV code = 3355) ri5tdc3SfrDXosEYoVNtfmX NpvgHtis68oPG1aU75DV5xV QGxMoG1CFQunaN5Zjk9FLPk SXJauQHeP786k0ogw3wsitE kgVM7vKtlRHGogiflOnN9CL zlYQNlppbvELu1DInrFIBvu LD2PEGqmZDyP1DlPOWeXM6i hqd2GUO5YVjbEAWoWdG6GCB fvLZqOFAtdAoxXVglu105AK K8NfAwRFSlewEyySskrX0xL sOlTXDMw5FtqZQeYYPGX8Px HOR2Z9stEPGuu78gSP5bIPK aBESpgDChzP8fkCSdJTQmS9 o8XANvXLwKTPzcfJ3yxYbuG 1CiNQngpf7sHFBfA9qiVNSi QOGhbK1tJVWnmw6= SPECIMEN SOURCE (test d1hxrPSdTJBvhOZ4TjEvRUQ code = 3377) jx6tvw3EstSWslNFoIRdcmH UoosAgfp80lAJ5gJ38VB0uO WNjKmR8XFKaieD6Pmf2DYHm LCChoNDkP922v0bwy1bnfoR gcDT4mBvnWDZiklhsYnM7MA utVEYidxudQAh3SYrxPLCtz VZ6WJHzxTXpP2RwCIRvXG6c vri5GZQ5WWeuHTGxQcJ6CNG pcCYiVUFzlVhiNWdtt379EO N8HeVoVPQhelDffQtnyC6wN eUmUORQWDABTG6LOIHRGORY VUlEXHBhcn0= GROSS DESCRIPTION n5cymJLeEPEycTGSZGAcD8d (test code = derGdGDBftNSkK7ThnaquIG [id number]) mpUL2aER0pnJyysBEoqEXcA V0TCLIoWgDvIEXqnNFfdoHz SyUxXVLuyYFhfZP7DSNwRA8 fnogyAWqjTAhqEOPdbrZ9WA WanYNpO0YfYUDiGD0zzgvxQ SI6UQangC4elrSUKulaOf3f dHRibHtcZjFcZmNoYXJzZXQ yKXCqjGmbUKBuDLz1eP2NBl lpUNW3ALXITcuuXOUsBQ8Ke 0akEPMnjVQoEYF2DEtgsKXa GYMnJDXwUIx9OBVkYKsrvCI rXQ6fuJpoWxmroMrgm9TnhT BcXGlkIDUxMDAyIFxcZGIgI J4VLmFoFNJ5QaBbLYJoNEn5 UCr9AO7LGdNeHVDfUKPaKrX pGOGpNZe4XWmgAG7HDNN2KX I3GOc2GeY2BTMcMfEzGQYzA iBcXGYgQXJpYWwgXFxmbCBc BH5cjMfmqCAnfxCTHzPGQCP mhE0wMRHgVVGxzTkwCmbjHP TqEYjqAWTaA44rz6RTo2HoS T2WXTa7oyVekxvvjN8yNWIg ohHkLTpqeSYbJ0haPfWcOYQ LHUDwoZAkMEC2YQQrhCCtZW 9iNGDrUvg6mFH1JSByFYBty cDmLHHqD9y0a0CkhJ6oSFPg QVFgMXitOFYwv7ReGREvKCF jOJNoFUAjHFmqMUDbg7IfXN uzizIshEwvKMUqjeCfu9IcS SwwphQxzPCvSlMqYUNmUY9y INK4AgX8KpTvQbEcXPdxkDj yiS1cLNIiV74dd6JTg5YkSN XtALfey7bweMdba1BphGImK QrzCYBfwOIoYBbxvR4uOtRq p1nloSx2CFicsrN3JNYvfd4 ISpnefH8yPyMfr5djoJa0ML ZMZfgckaF2f9sesSghd4Hhu BMsSC6HHq9= MICROSCOPIC d2kecVJsDEYwsVW0FoHxHID DESCRIPTION (test code jg8axp7PetWEfpNSzFGwmcV = 3371) HtsaZtyg37wCN2rN89EV5aJ YFtHjU7FZEsjyQ9Wnh7GBIj OUKnpYViN841o8pil0zpslT blNM2gQkhJVXqqgbcLqE4KQ piAWUsifdkMQa4DJbqJKUfx UV4AOBrtRFgX5KsHOVtOA8c wsl8QCJ1MDprZSBpGeA2WTM ezJLpYXQluSqxBGgsc457SN J9AtVzTEApxtRkvCzcbP5xN yBcMKQEPOSgz7RnEIVpXAyk YXJ9 STATEMENT OF ADEQUACY Satisfactory (test code = 2757) Gross assessment was [facility] performed at ([facility], code = 2777) Department of Pathology, [address] [place], [place] [id number], Technical component [facility] was performed at ([facility], code = 2778) Department of Pathology, [address] [place] [address], Professional component [facility] was performed at ([facility], code = 2779) Department of Pathology, [address] [place] [address], [facility]17 Test Item Value Reference Range Interpretation Comments Case Report (test code Medical Cytology Report = 104) Case: [id number] Authorizing Provider: Milena Swartz MD Collected: 02/13/2022 08:24 AM Ordering Location: [facility] PERIOPERATIVE Received: 02/13/2022 09:40 AM SERVICES Pathologist: Jam Villarreal MD Specimen: Peritoneal Fluid ADDENDUM (test code = c0gfsRCbVXJdoHH5XhFyVKU 3381) dk2blg3ApgMGhnGBlOVkwyI GgjjGdvd52yNM7bW15TA9mG WXhXkX4JLDzjlB7Vtm0CGLo HLHcwXQqB058b6owj8khzvB sqKA4zHibBQWlilygTgH3XV udDSTysawoBHg6PWjoMYZmh QJ8NKCegBPtP8HhQUDtND3k yzl2IDJ8LUbhIMKvLuW4AXZ jrZOxNGEfkDaaGEwjf823UZ V5AlOwSDGbcvGtcHwidU3nR nMyMCBUaGlzIGFkZGVuZHVt PJopANRhCITldI4fqHT4nKO vxHroFHKmfUtnt2ntYrJzRN P4yNX9IULtphJrRE0KRc4rT XTin0IhCI9sqOPirLhupZdq aHQgZXBpdGhlbGlhbCBjZWx jgv4zeEExfI== DIAGNOSIS (test code = h8zmxCNzMWNhk4ueHQDdxBY 3220) uZzEwMzNcZnRuYmpcdWMxIH tccnRmMVxlcGljOTYwMlxhb jXbCZEwzHOgR4KbalrkPDwh JW2sGP8ofZhbfEUimYSkJDM jWoVen7hed719bYMnl3rbDR FQcatycWj3qLzaE43ku8O0P cxqJ67kgYQlNIQ9YXUkYYOo sEBtTFWiOXK8LAJrxADxM5t pHXZhCO8pvngxIPnoIQluSA RudYA6SSZmzBRlV8SlHKJzZ RstPPAdkcj1HtAuCm9quXJw eTcyMFxwYXJkXHBsYWluXGZ zMjAgUEVSSVRPTkVBTCBGTF JQKUGoU4vQK9DNYE9ZPVVZJ CKPRAbBBUPAH5XXWClmeSsr BEXuNOOvNE1KM8PVLHQJOFU MPpCYSDyDT34VWePABCOvtr IhKQHnMTFoRJU4iZDlTQ0ob 290aGVsaWFsIGNlbGxzLCBj sXRqzijoNFpwEnaanC0mxDp guhXzbsZem55wFQMsC0M6TU HchiTvLS4gRXFkt99otKYcf 4UjfIrcRLZ8t6ynjDPdQSBv dGUxODAwMFxhbnNpXGRlZmx qxzorSBQiVAQ5uzCrITWjBL cmMPVxZWfwQw3xdUQhaPpdH qLvDTEly9sfblJZnwexrIf0 w6apIJCqLaI9kKSsTEmmP1m elnKhuVJeLGJpBUa1fV62OF NmbZ3nbBJvFUtemiZvFxM0A HawUQIbBbR8UHWxjXYwEJVb L1jmSRYpVQcnFACyXIsctZH vKDC5dQron7O2uRYtbZVpqZ iyYjXpSuDiGqAXi3YmBTd3w VtdF6ExGKJqVmY9bDWxMAKd MRjwAGZoGRVffdY3eG55DOo hriN3wKChu8Qnc66xe412dY 0fgDGlGEY5IVVaRTPwpVFmI OBmUFN8BTCrjWTxG9rmRPBd YI5pfvrhPGlmKMocADFolRP 8IXVayLPaC4UtYNPkCBvxJM Pubgq5LiLcIr4tlWMhzHbtK Bytl3nhh7ipsYAhMtn7YTMv ElSnImpeSYocq4Vfs1gwQSA odd1jQQB6vTNjtMman5L9vS HkGRBqaZWnVIQtLO5ydKUiF OBviW1ywsriMKVbQeQdqkxt TXJddCbecwOoEm3hpUmqRWA 8WUpbR3aszL0bHrS7DBvqJ5 wveM0uMWg2SMwwNCKmaJB8q xK3HXOpnUXaX2XcdI3uPKAo BD4igny1d0lxVVY4ELevSII dTzB5ekE8GOXzeOVjKKIpxO lmSPoul190QWK9FtQtZZTtc 1TzQ2JpxAeqE73hyRutA18i KDUtfAsbgF9tmFdohW8yBnC kJyLeVEtsfCmzSM1nSQMwM0 vvsZVoQZSwQMQqW1pxYtOgy K6nrOldCLdkpzLaEXBtBkw3 SBAggLTvGLIzCwr8QZTdTEW vV41tyhhxWZJ1rD4ma2ecn9 LiREtnULW3CEZov76cDCoun eM7OUnkIu22HOmqLSE7RJyq YXJ9fQ== CPT Code(s) (test code e0vhnPGoQZMezCD2RjHaCAH = 3357) mn1pep5GzgGQyrDJnFCazuL GokcDxrx73oWZ7nG92UP1dD WWjKiY0LSGwqsK4Qrs3HAZs HBHonZTdW937x3uai3yyehY xrTK6dEchSLQzykfmQkR7PK ydDBCjilywMNx2MTxfFGYqx SF3DBZiiLYgT0UvAYSsGB6j ssc4RPA7PChfLVBwMqB9SRO yuCLkWMWczEpcVPbki545QY B3TyAjSFUscxNqwMkgfN6fT lDfUGB5PNYhPSgqYIxbPRYd cGFyfQ== CLINICAL DATA (test h3aoxLBkQPUnjJN6WpIqWAR code = 3355) de3rvi0ApeRLwrCZvRHbujV KnbcCtzp90yXO2wA47ZC8nP GQtTfM3DSEfyxW7Aqq5DPAy ERYsqFIzK323w1dlt6bruvU ecSU3oWjaJIWbymsuOrC8CQ ioPUYotgfyTPf6SWreCXSvg KY7ZRSiwPGzC1UdCPWsBF0z ucm2DNX2CHbmNKUgZcM8SJZ lwBRcUBSyfAxrNIcny135LL A2KaUfZPRtfyTbbGhgvC4jE iWwLJVAk0LmmCSiYAKTZ7Al SMM7S9dfCLYxj43gQT1mQSH pOHXvfEHxxG7fqOVgDNAiG9 m2JAFoIMgDCNgkmX2atNopK 7AmWSufkv8kTXZhD2lqZLEk FRBbhL4zHYBeno9= SPECIMEN SOURCE (test t4sgbOHrVRUflPJ0WuYyXBQ code = 3377) dw9osd0QqlYRbvHCaBPdszM CrvlSdnu89xTB0jK32FH7yI HViSlR7NQEpzcG1Wlw0BDGf HFHvwCVmU348y0sfv9rjqsT yaSB1fSwkCOTplwyaLvR9UY nqMRLxoimvTNq1TTwoOYMnx VZ7PJLszEDwM0WsOXWwOI0g hje1PSU0LTqiWGAyMvW1LZU kfMPwHCQuhEfsFXvld278RW O2HtBsALBsjkBxpYwhxK7bX eHiAQBVTXWMPY0STDSGWYWI VUlEXHBhcn0= GROSS DESCRIPTION c3cwyDSnVBSchEXOIUGuM2e (test code = aoeFdNNOnxYPvW6AouaqjAV [id number]) ooZR6tWH3bgNwaeNKuuOEzM B8KEKGfItYbYKEhvENvjaBf KeTkVZGxxCApvYK9GXPySP4 zhfdqBXlgFHvhFWVcpbY0WA NdgWSyC9ZgMGVmCG1wsvgsR QG0DOsmfH4dmaMHKoyfWr8s dHRibHtcZjFcZmNoYXJzZXQ hYQMawYhgCNCuAPd0lI2LYx okBKV0MJOYJbypSMZoBM0Gm 5ywNYHpmHCgJHY0DBfhgNEv MDAzZQZvGGk9GJVlWSkxnCG iKM9gmPrkTpylbTvkg3YzdT BcXGlkIDUxMDAyIFxcZGIgI N7VGeNqAGB7YvHmZTLoQDz8 EPi1JO9PTzRfVNXaUJDkArP hLLSyGRb7DTsjBS9RPKA7YA Y6RMu9AbN6ATGlIhApOSHzN iBcXGYgQXJpYWwgXFxmbCBc HU3iiEugbRYadeIOCsPFNGT kqF3bYHWbBMJkoGspXwtoLC QxJUiyDBZeG27so3NMp9IiH V3YBZa3tqOnlrhakU0sGIRp ghQgNHnksGMcW9qqSfSkARY BNPNtkHUtEDD9QFZdvAAlZP 9wGIYoUaw2xAX6ZZNoLXAgn tHbSHPiS7m1e8FmfB4qXZAm EPEcFQrsUQIyn9RcBRHfPOR hHHUuIVWfGPfjGRBmy2HdVH lkpwSxkJbkKAVhgjSjo0GtM VxytpQnoSLcKdTiRUHgJH9d AFU0KqQ6NcWbYsCzDSdhoMj cmM7fXDFmQ17fz9EOt5MaVH IdLBnvu2hwkMifj0TsdYImE CjsSJQryGAiIXqfcB9vSlBq u9jvkGj6ILvdlaW5FRHyzt9 JZfblgQ5dSmRtl8tepWf6LD GCAtdsqnB9l9wzrOrgf2Jka HLtTR6DIx2= MICROSCOPIC r1ojgPNhCLVgoUG3FtGhEEH DESCRIPTION (test code jy5qzs9QixTFclLYqPIctiQ = 3371) FgogStra21yNG9jN82PR3aL XBpCiU4OMHivjQ8Poj0WQTu VCLwtQXwH944h7ncw6dnqcZ fnGA2nNloVZKdufulSmH1EN bcZAZrpfcoWDv1FVqxFPDrf KU6YRRaiZQgS1LwXCKlFE7s odm0MIM4YEtpSPVyHhA5ZAS zoNSyYLFekGmnWCujn559EY P0KjEbVNXabjQbhMolpI4oW qVuLEIPJJSmx8NoFJZxXBzv YXJ9 STATEMENT OF ADEQUACY Satisfactory (test code = 2757) Gross assessment was [facility] performed at ([facility], code = 2777) Department of Pathology, [address] [place] [address], Technical component [facility] was performed at ([facility], code = 2778) Department of Pathology, [address] [place] [address], Professional component [facility] was performed at ([facility], code = 2779) Department of Pathology, [address] [place] [address], [facility] 09:41:17Medical Cytology Report Case: [id number] Authorizing Provider: Milena Swartz MD Collected: 02/13/2022 08:24 AM Ordering Location: [facility] Received: 02/13/2022 09:40 AM SERVICES Pathologist: Jam Villarreal MD Specimen: Peritoneal Fluid This addendum is to report the the following result:-MOC-31 does not highlight epithelial cells.Addendum electronically signed by Jam Villarreal MD on 02/15/2022 at 9:41 AMPERITONEAL FLUID (CYTOSPINS AND CELL BLOCK): - NEGATIVE FOR MALIGNANCY Reactive mesothelial cells, chronic inflammation and some acute inflammation present Signing Pathologist Direct Phone Line: [phone] signed by Jam Villarreal MD on 02/14/2022 at 12:17 [id number], [id number], HCV, EtOH decompensated cirrhosis (ascites, HE), umbilical hernia p/w abd pain.PERITONEAL FLUIDA. Peritoneal Fluid.Received 80 mls zay fluid; prepared 4 cytospins and cell block(A2) - the cellblock was fixed in formalin at 1:02 pm on 02/13/2022 [facility]. [facility], [address] [place] [address], [facility], [address] [place] [address], [facility], [facility], [address] [place] [address], [place] [address], RZNVF CULTURE 2022-02-14 20:00:56 Test Item Value Reference Range Interpretation Comments CULTURE (BEAKER) (test No growth in 5 days code = 1095) The specimen volume collected for this blood culture was below the optimum (10 mL per bottle or 20 mL total). Use of lower volumes may adversely affect recovery and/or detection times of some organisms.BLOOD [id number] 20:00:55 Test Item Value Reference Range Interpretation Comments CULTURE (BEAKER) (test No growth in 5 days code = 1095) Tissue [id number] 19:09:30 Test Item Value Reference Range Interpretation Comments Case Report (test code Surgical Pathology = 104) Report Case: [id number] Authorizing Provider: Milena Swartz MD Collected: 02/13/2022 08:26 AM Ordering Location: [facility] Received: 02/13/2022 09:18 AM SERVICES Pathologist: Annita Brower MD Specimen: Hernia, Hernia Sac DIAGNOSIS (test code = e8nhzINlIJNdu3reUZXdbKP 3220) uZzEwMzNcZnRuYmpcdWMxIH tccnRmMVxlcGljOTYwMlxhb eNtIBKnyYGdM3BdgqbgKOsa MY2qGA1pbQgxaUHawZLaBDP iGuJag0ecw459kTQgl1mpAP HDzfkdaVf0yTosR34ze5F1T jauK24zjZCbCBF7LMGbQSAg jOUgFFCtYVP1YTRvrOOgL4z lRSLeTN6lvoybHStgXMmlEP TliCZ4DDYryFElI8XfNTQmB PcdVHXkiqx3WoEmHi5wbZZl eTcyMFxwYXJkXHBsYWluXGZ tNkLvS1jMRrAPGyDvY69AQT ZZIUACVDSkKVHPPZ4DOL5sB ScWYv8ZU3OTVLVBVKrmmYXp XGxpNzIwXGxpbjcyMCAtIEZ ZJlWGOvOIR3TLFUKqWMvCP6 YSTFHRB0NTYBmaZJiUGPQsM pucQeDUDBqGQG6ZN56TLZFQ DCQZEXLHIBkTKKKAE25MQNS GVO9TAJCbdiYqQKtRWGwaSK FFSnqFVAJIX0hlAUJqOAIES 7lIPTlMUChxU7SKSPTLJORB LWofBMHIB8nMPsRIBvZtL8D IMzjjBJKvlLSqNLrsKAQ1s3 xydGYxXHNzdGUxODAwMFxhb nNpXGRlZmxhbmcxMDMzXGZ0 bmJqXHVjMVxkZWZmMHtcZm9 xsYNzvEjyRaCnREDaf3uzzd DBlpzqpHm3i1wnKEBrMqX0q CYjPFysX6mlopMwdGUtGBNx CEa2lL46PZZmtR7evHLmICb lbgAiClL8XPmcCEYwBdN0SL StsDVtOMGlO9mnDXTnFZldO AMbVVgwwQEpQZJ8bRjji2R0 bGVzaGVldHtcZjBcZnMyMiB Fm4MqIUy0fUivR0IvQHAmZj U8qHPpEEAfDYjlFUOaUWCze nR8iO15MVmyyjP1eTFpz3Sp l29mv451jN5fyGAhNJA1JQQ lULJvbESwPUQpDEW0KPPtyL UiL0iiNAVuRA9otzdgNXopX PraUICxgCF5PQJctQLqG2Pe LWPsGZhwCGGctuu7YjYrWn1 joIMzwSpkJLpik6sax9nbfI WqIpb2TFNnUkFgSlepFJgbk 0Mxl1dpQDQiax9wRDO7fYTt bVjwd8A6eRGlHNBdxMFjHCY yGD6zeFNjFYCjaB3fljuwIV BnYnJkcmhlYWRccGdicmRyZ w8fmSxwWOB7LZuvV5lsgF4c PnS8ZPoqO9yupS7nSAj8WZe tQVVurAS0mjC5ZWZzdCWqV8 LtdA0fQOUzNL5byiu5f7ysW NX4VQfoXMNnVbZ4fdW6TVSh uQRxRIKziIleZYzbp932HZJ 0CmSmETMjj6DzT6VmaZxaB0 3spPzmH47yAJBsrOeldS2xo HyugL4hRsBwVlFyYNyciQqw KD2hUQGzM0kbxMBfSAWkSED fA5vgOaVqhI1gvDuyXIwhps NwPZOmSrx2BNTezWYkZFCfJ qi8VRIjNVLyG54wewciVFS2 tH4ys8ufh3BbOMtpRDR0DMT mk54eAFzuihO2ODugQe62BD inGBO1BYjhLNN4yT== CPT Code(s) (test code z6ltbHKrCIVcySN1ArKcUJL = 3357) sx9rxx8VnpRZpyZQtOEijqA CwekJhuw07pBI4rK39CA7bZ QLuBrG3NOTnunL8Aee5RPXr LXWquZVvY111e3ajx1ymmoI lpXU4pKaiHQGiwxikQjS4BC cpSBXrqlqvVEp7HVkdQWFhl DV6QNUkbDGtD6CvECWqMY1z yxz8BDZ3XBkyMBQeTzU7TGY awBGsRKKtrGjbDYbqj722IN T9CiMxTVBbkcWupBjswV9cD dPsEBF1KVTjHehvZJX8 CLINICAL HISTORY (test j1yybWLiIIHhgYU7HoHcZNA code = 3356) vt7hcw2CatVQciMJcLHmkrC LppaIyqh13rGL0tA12VH8bO HRtSsR1ATZalyJ4Pbf9YZIv XRXahEAnS385d8wxq0vvouZ dyWL2rVctALYyymnrFhH5TG wiWOGyjzgdRJq7KYkdIOWne IU0ABFwdHWxS0EdZTChUD9c hlw6YHF2KYzkDGSbZgS7TJI smWCeJQLuzUflMWphe455BT G6BcYoIXPflcDwnGfosL6uO nMyMCBVbWJpbGljYWwgYWJk x00siyItZNexuq5gANmcJBP 9 GROSS DESCRIPTION s6gjqQZqLYLidDGNEVIyI2s (test code = jahTwPVLuqXXaQ3NudfupLU [id number]) rwHF1fUN4ykQjeoWJokOTvO W2VURQcPjOpIIYjrHQpeqKl WoVnQJPopQXneIN9VFQzLZ5 whpyjPNpyIHilOZKonrH8XL PesYRrY5JnCQApIH4gbfajZ LT6DMppsB2wapMAAamvKq0j dHRibHtcZjFcZmNoYXJzZXQ lLNZetHckTXHfLYd3aJ1EOt aqPLE5LCZAKbmxEXYhHV2Sm 8nsLVDztXHgQDG8RIjgaBBj DHTsURZaQUt4KIFiPBeemCR zBE8eiUlhQssikIvjx3VyyF BcXGlkIDUxMDAyIFxcZGIgI I3WGpFgDMC7QBz2KMApJRg0 PCu7HK9GOgSuLIPkLISnJbb 4FMXiUTm8BGzvLS6JUHH0JH N0Tpl4DMC3NOYiJwSbEOKnQ iBcXGYgQXJpYWwgXFxmbCBc RY4zgBszcGJcbeXMElJDKFZ uaWEuXHBhciANClxlcGljTm VzdERvYzEgDQpcbHRycGFyX GxpbjBccmluMCANClxsdHJj cKdwlbAgLMVpG5FptuJtYWD iGMWaJWmpHpIpLCFok2j7fV V3eSQbeJC4rTCsmYhcTgEiL V8hiRUwCF4iSXmbEWiwkwIi j2MoBK68nZAmcpLzjhQjUfj ubh3mBXJrjDDnAGE9VwcjaR YvFaCeA28znJ3kgffkyaPdU ES9HG9ko3ncbsBlvDzojLDk PEC0C1ikKRJjbX5dDKAiCZV 2qQQsKpCsMiMhG13xAKNStO KjNEEzUUJqpNcxDVXto7NnO PohSDLgCL3dWHwiML43SGky ZG7fTNXpQFJhpvWdSUhpbNX ow7KhnQZpLH4zgm3davHwzr DepMW3nEK4VYjmBMBiBTYpf ABdvw4gMPMwBOMjzN9sHON7 MP1uqwemmx8kMMZgYKNwdSj pvC9dWQFjDBTwr6pvHKfmRJ IqEw32WZlyLh5dHClhZK12L BNhNLAhK1E6xILzDCHdnjJc f16gq7UlqUxhid9rDVXeKpo fgx1tHR5ieiJof8QtQSIuk1 A7CD1bDPOoUNEcsPLpONjlV XQkzajdzOm1QQTjA7Btp85w ZCBhbmQgYSByZXByZXNlbnR bkXv4VFJnSCF1aF7eXC6rIJ HgTDFdmjZxoPE6cVCxWHMlH OIiyHlvigvlBaivxf3cWU4r khAsy4XvERHdi7K6QDTrvsY tmFBfwGL8FRHwyU3yDKYjSE jlbuNjENppvuKbK7mieVFpB QEOgzY9qwieZAlGXPMSBBMl LSMMYQyffS7UTSSfPOjoPWB gvMWUQCE3HX2gYBlmkMXryb kcOSWqH4QzC4QalwPxaHPwH ATigcFvg8wmDSS4CADacKBn hCZeMfRkHifyTMM7CPhkk5s tZMH6ASFryRPsfZQgWIixGj EgOvmrLTNgG8SbR3LpyiX8G Qp9 MICROSCOPIC u1quhNAiQPCsyYR6ZvGrDKR DESCRIPTION (test code jb1nar0GmaPAqkFQaABdotV = 3371) OlaiGgop47pET1xM46XW5sQ HVpCpU2GDWwpeL9Bpi0QDJi XALraXElK883a0gqw1ugynH umNX6kYgkGFObmrovPrZ4SF cdFNAkqbyrPDt1JInqEKJcd UP0WYVijOIvV3PnQEHsMY0q oza2AHN7DOcbIKCsUcJ3MAD knFAeEZHtrByjXMbqg851FN U6CfWcTJOrmuZfiAyzcE0yC oIyOSHCCLJfo9ZdLKUsCTqk YXJ9 Gross assessment was [facility] performed at ([facility], code = 2777) Department of Pathology, [address] [place] [address], Technical component [facility] was performed at ([facility], code = 2778) Department of Pathology, [address] [place] [address], Professional component [facility] was performed at ([facility], code = 2779) Department of Pathology, [address] [place] [address], [facility] [id number] 19:09:30 Test Item Value Reference Range Interpretation Comments Case Report (test code Surgical Pathology = 104) Report Case: [id number] Authorizing Provider: Milena Swartz MD Collected: 02/13/2022 08:26 AM Ordering Location: [facility] Received: 02/13/2022 09:18 AM SERVICES Pathologist: Annita Brower MD Specimen: Hernia, Hernia Sac DIAGNOSIS (test code = z4dgjDOxCKNwz5sxLQWviXJ 3220) uZzEwMzNcZnRuYmpcdWMxIH tccnRmMVxlcGljOTYwMlxhb oRbNWVxpMDdW3WobyykDCzc AX9mRO8doDnsjKRseASnOOQ nJpYnx6vfa045qBBcj2hyYN ARwdlfsGe9vCsyK59rg9A9E loiK09ujYTxJZL2VFMvFXLt aPUjNYVfHDO7VGBtxUGaD7s jOLNaON7zwxrzQRacQBwwQQ NqgDR9IOKvjUVnI0PsTJLiE AgpTXTbiaw5WhVhUy8euAMq eTcyMFxwYXJkXHBsYWluXGZ fUvEvW4wYSrCZYaQhL26JMM JWUMNIATOyIOQJLR8QGD0mD ZiUPs4HU7YMRHWQJTiheLLs XGxpNzIwXGxpbjcyMCAtIEZ QIwIRYdXKB1MLVGBrJKiUS6 ZSYWLRE3YNNQmrCDoZPOAsC tjjKrBCKFhMIP8KS50DNSFB CIWMMUMZBUnCLMRJA05YTCO GDJ2DLVMkgsTxDNqBYVluJH NGUloVZRNVN3ucWTVuZLHAZ 5fDZQfFUYudZ0AJIJTQPXFG SFelSYMOS0jMJhAKXiTbD2C YRwwqSNGslTLlQFteCCZ3c9 xydGYxXHNzdGUxODAwMFxhb nNpXGRlZmxhbmcxMDMzXGZ0 bmJqXHVjMVxkZWZmMHtcZm9 bjOEofQbzJtIdVLLkz3pfso BQlsjzfNp3e5dhFTOqEgY0z KWzIAmeL5bpvnMauFArTPIj BFe6jX88MKGfsE3loTHcDBt mlyFoJqV0BSngQHOsJqK3NS YzuKRiIDWjD9ukYSQpLUmlE UGiOWvjfLVrDAV9cPrrl7E2 bGVzaGVldHtcZjBcZnMyMiB Uq5FsDJh8wAhgB3KvIPHhLu X1fBJjTPHpBHddQQOxDWBdc lS8vY35EHieftI3vZXeh2Jq c44zq444tT7gzOFbEEL7LPR tRZFcaFCeGOFoMPH5NROluD QaF9qvNCIsXC2deodkWZjxP NwzARNohBF1OKPlnIFlK7Fn GNWjNIyoGNLvlwa5LfSmPb0 qeNZjiMueXPdkr2tmc2hhkR OpGsr1TLPqSnSrRiroCGxdg 7Yxu8htCTWjzc1wTXN4dOCo iYkte9Z4sPSrUXAjmKHuERJ zUX6pyUMnXXAsiE8nchgnTT BnYnJkcmhlYWRccGdicmRyZ r4vxNumOZF6RHbxN7tfjY6q ByK4ERjdV9kpiE0bPCo7VKh wHTCatSN7tzY4IRWfvMTqJ7 RphU7mUSWyGE2cobq6v0yzA JB6OJmqICJtGjV5huB7WGUs jKXbJGHjdOqcZBdup838CMW 4HzZzWQRqe4XbE3XeiXwpZ7 9xfZrrH48yUFRwyQbnxT2ml OtmnH3zAuXsQaYiPIyfhByj JO8mTQIxA3cbuYXhEWPsBKA pX5doJiCwvJ8wcWrwPWurha WpEEMxUme5AVVatNVfZEAlK um9CZBoJXQhU01yumxtWCR2 cM2ez5tqp7AbCHhgGHO4FRX yu72qUUabewV6KTsoAs44AW xyJJJ3ECwxYJP4eP== CPT Code(s) (test code r5ddvTVnVZPvdHQ7PiGxCBI = 3357) ok4qek8MmiBAozWQeMXnojK HnbeQpyn20dYT7eX50JR3zU LSxQxH5YXRvulL7Dfw6OGTn KYWesZKtX295b4rlg1ysvoB ocIK8mPhmNVFwxwdqBkD4PN azXCUfmmqkLUy7BKrcVBAgk CN9QQWcqLYeH6VkRQJoGK4u evy0GDX1OAffTWNsFqY4FFH ufWHzEJNobUnlYYqhe244WG R4RqBpRQXcczGcsPpsvU6yD uCxCPW4GRUpJesjSAA7 CLINICAL HISTORY (test r7rmzKFnKIJntQT5NsZkSKR code = 3356) jh3kye0HsfMSwuOOfQAuzcJ HudeXftz80hBX6xF53DU1uR YPwMnJ3OQMvwwX2Bae0KFUz VQLozIPfI192u6akg2jrgyN lqGH0oDskVQVhwldtBeO2YE ffRXCushwvNZy7HRkvVQPqi ST3RCAgcOJjT1KoWILkLK3j yjh6RRK7NDmzZOQaAlM3FIE aiDDcBXVnrYakNPplm913RG W5UlMrSZVzdhDbrHaetM1lB nMyMCBVbWJpbGljYWwgYWJk p62lagLsMBbybj4aSEzfIZI 9 GROSS DESCRIPTION n1lwsIRsPQIkaAYGNWGhN9h (test code = nlbFkASUfvXWkQ6ZdjzcwDQ [id number]) hdHV9cAB2okMbfmHUugLEoC Q0AVFPcYbMfEGBdeTYfyoDf VcBsLRUzqWNafOQ7JBBlNA4 ghqtwABcdSOgtSEKintQ9IT JsiDFfS2RqRQBzNX6ekucrK FC9WXsvvI7avmXPAqhnIg2e dHRibHtcZjFcZmNoYXJzZXQ eCZBkuTwwSGPrIWg6aU0AAc xxYDY5WEQGKbgdDNYjMJ8Kn 5txFMBgzRNkPIP7IOdieTKs DCZlPOSgGGq0MJWjAKzhbPK mYC7tzOvmYjgtfMvkf2FbzG BcXGlkIDUxMDAyIFxcZGIgI L5MMlQsGQT8GTg3DOWsJSc9 EBi2SS1WJqAiSJTnTNHdRqd 0AILxJPy3DKbnIW8HULC0KL S8Siw4YKG9UAYlToWmXDEqL iBcXGYgQXJpYWwgXFxmbCBc PB7ovJzfkOVxerPBUpDZGBZ uaWEuXHBhciANClxlcGljTm VzdERvYzEgDQpcbHRycGFyX GxpbjBccmluMCANClxsdHJj wQebzkWwKZAfC9CpphRyDLW kDWHvKNdaKwZeNVTlb1k5eZ C6oYQugWY0tIAsfOwbHiMoO P6naTPqKL8xMFgoIBurlyYv f7MeUH54oJZgogWdigXwIbw tdp5aMWRleRMwYVC8PttjjJ OwMfAgP09xuS2lufonwoXjI OQ4LN4hw8klkaPcjYizpNBl TJU3G8dcNDKhtH4aEEMpUHC 2uPJeYbCrUsWzL79yUYOToM JpWBXjDXPciUurRMDlo0ZzW ZioQFJwCY3rNRhrXL25YNef CP7jKHVbGQVjgaFqXHcupEV hv5TrgQVgKH9ujw8fxdVmlk TkaNQ0xNZ6UQmlRCEkZASvg OWyia2cAHNpGYVhmE9fHRD8 JE8cbzllny8sJGPwRJNsmKt oeS0sRWCxEWYeo4mdOKogTY JcFt09BJanBk2tYWgwUT95S MFwAAWaY5V1pISiEKCbqtNp b44tj0SlrTbitv2xMOQxKno rku6cTF1cohZjh2OjQUDuj3 K2MI9qEKUaQTEmlQHvFFbqX WRnojsllAd1CKAkL8Npc70y ZCBhbmQgYSByZXByZXNlbnR eeSp6MDJgOVU9zH0aNS7hBE GsLUMgrdZmxWX3vVWjMMIlR TMnhTfbgsbzPesqyk3xOA2b boIze7ZsHTCqu4F6MTNdgbL qyLIjsTH7AOHtlQ2jSINsOV gserXfDXdupiGkV2mfyGWpF QJLjxS3daypFYoYHRBOPUOp ZEZJHFympC5JOTArWRrfWCB pdTPWSNN3RX2dTDobxMVcty kaZRJmL0SfT2WleoNyeDNsE XDntfEil3niOLR8KYMurKZf bCKdGeTrSuflLTQ3XNnbm9d sKJV5WLKmyWLmuRTlLErmGd MdLzvzODCqI1JkF8TmjzO0K Qp9 MICROSCOPIC d0qtsFLmDZKeeHS3QvCdAUO DESCRIPTION (test code pm2gbm3XzhBOerVHaIJpreA = 3371) PpptGfqc86qJZ4jR53MF2qB JYvLfX9PSEqqsC8Zdd2RQLx UJUxgYUwS675i3zfk2pwjuO hqFK6uStdTKYtvypjIdW2HE fuTUIsqsaqCFd2PAfvNYCss FG0YSJnwFEhE2MpAJOyGZ7v odz5GOW8VAheUEQsQfA0ZWX baONeFQOakSpoUGvai230BL E9NcCeDHPicwNkmWitxX7pX yUbEEBVIPBtl4AuKUWkHYyx YXJ9 Gross assessment was [facility] performed at ([facility], code = 2777) Department of Pathology, [address] [place] [address], Technical component [facility] was performed at ([facility], code = 2778) Department of Pathology, [address] [place] [address], Professional component [facility] was performed at ([facility], code = 2779) Department of Pathology, [address] [place] [address], [facility] [id number] 19:09:30 Test Item Value Reference Range Interpretation Comments Case Report (test code Surgical Pathology = 104) Report Case: [id number] Authorizing Provider: Milena Swartz MD Collected: 02/13/2022 08:26 AM Ordering Location: [facility] Received: 02/13/2022 09:18 AM SERVICES Pathologist: Annita Brower MD Specimen: Hernia, Hernia Sac DIAGNOSIS (test code = [id number] 3220) uZzEwMzNcZnRuYmpcdWMxIH tccnRmMVxlcGljOTYwMlxhb uOdRGYwhRRdW2NnrdjeRHaj JL8wVY5ggGdpyMPixZIqNDL sUwDax5rhf324wENgd3ebEM RDbcelvZz9fTdyM20sg4O6O wxfH69seXPuLJZ8GNXhYOKq kZXlIOTrEDE3RFVaaMTmQ9h pHOQoAP5gwpvfTNyqUMpnUG EfmVZ4EJKhnNVtX2NmMYXhX TpcVLIhwol2PbCgJt9aaHIh eTcyMFxwYXJkXHBsYWluXGZ kFeWrY7jKBjUULpEuQ36ZZH TUIPKXUBAlPVUEAK5NWH0cY YoGAn9XD4IZVKNYRJsyiYHn XGxpNzIwXGxpbjcyMCAtIEZ FQcZNViLHG1KELHXwPRdDF3 ZEOXAYF9CVDQabVWeBUGBxP zfoNvYJSOzCTW2HL24RIVIW SZDFLEHAZWgLOOLIK76ANEW OSP4QQNEuvyLwJHmPKRnsMP URWjaLWBZSA0fsYPCzGHABT 9nJDGaESUqnO2FPBYZLXUUG ZThkRSIGN1wEFlGMOdVnR0U MSdahCEPrkGUwUXttDTI0y9 xydGYxXHNzdGUxODAwMFxhb nNpXGRlZmxhbmcxMDMzXGZ0 bmJqXHVjMVxkZWZmMHtcZm9 stNZihApcKeIsFKBec0jbcj CDbhpmgYh2x0jvHTMlUoV3t MWcZMqzU8xuzgUdcQSoTVVw SOf3kX10CIIpzZ3yuIHyCKd kovOjZfS7RAdyAPWpXeG0GJ TqcBWxJNYcP8eiCMFuVKrvC CGeWAqrpQAnDYN9dJxrl1E3 bGVzaGVldHtcZjBcZnMyMiB Nz9ZgNSp0aUhfX8QrAWDiZv R7aXOhUPMoWZzxAUYkEABpf sY1tQ37YLimdrM3wLQed7Bi i32zb742uY0jbWCoMAE3UMO dZZRlwUYdUFUhUPA9MKSqdO AsO3gbDYTxYH5nofclIQmbB ClpRGBfxBX7WZPujLKwM4Ol MBPlBXavMTSsheo8XuBsBz7 daEXypEhcVWmfz0dfi9qxxZ CbSsb3SFIpNpYyUspoGWvrh 7Kes6taEKEnhv9hDCW2gQRp zSzer5B8sNWwKCLwvFFnCRA rLL0wzIPdYDKrdK1risxfJW BnYnJkcmhlYWRccGdicmRyZ x8akZccQNR2YSedT9pltD9j FfR2VMgpK6akeH7oJXf6XYa dQUKcaWD5rbW2IELwnRSaI5 TilM6uDUAnVZ0yjqi1l0neL CF5VOloDJQnIlW7zfH7CCTu vPOrESOtvJpfVWmum234PDE 1TrKiTOOpe3FaC2VnuYlnS1 8jfNbnW55eMFAywDmzxT7co UyssJ1cOkYjDqKsDWqdmEif HX8eLDSmK0ofcCCvYIUdZQS pH1hkBhVtgY0wgErnVWncwl AbTBSiCqt8RJLrfOYmKIByO bs7QIBuXNAmV86gdqejIWO2 yN9pi9oim1TeCYelOJL0RPO ty74hGMnlofY4JPveWk03NA sxFXC7TAxfDPR0zH== CPT Code(s) (test code x0lwaHCcYXIhiDX5LiGfAJN = 3357) yj9aqd1IeuNSbdVVjGLanaI VekvYnor49oWD6mN86SP2bH NYnRcG6UPUzbvK4Uek5OLQc BWRmzSJjA381x0kws2emzyG reLT5pHwlYKWfjnpxZxQ8DD waJSHapxpjSAn8CWljNNOln TR5FKDuxHUtJ4GjBYWhVE7o mzy8KAX0CEuqMQAoMeU2DYI gwAJhRXRziBfuPPxuw834OI F9RrQbIJBbluUlwBzhzM9bV sSzXBK4JHWiRwrePST8 CLINICAL HISTORY (test l3kjkOYaBWJtePQ1OtYmOOD code = 3356) wz3jta3MzmENdbAMvYVxmbQ LryvWdka97iOJ5tE48UO0dK HGbZlT3TMHovuF4Efg8BCKc XWItdMNcB504t0jun5rjyxO suTG6tDkaLEIglvtkKcK4SU stKLGvrsplOZa5EUymGIZqr JK9FQZgyLHdH0EgMEKpFZ6v byd3NDF7MOurDBSeGlJ1MPH gkRAkEIDilPqiBGcbq576MK Y7IaZzNMHhooHfyQnjfU4pK nMyMCBVbWJpbGljYWwgYWJk s34ovbYqPUdjzp2hKSrmAGE 9 GROSS DESCRIPTION y9aonDXiWHBnfZZDJVDiP8r (test code = xkhKwYXGdrNLaM7XsdnisFI [id number]) xjNH1nTT1hwJptiPHkkOTuG P5UGNTyTwQxTIRbdHLnhuZb QrBxXMPwqEQhfNW8BLHnUB7 xhwnmIVtdFJjdHFYmscR0CM MdeRHjF8XfRHYyFV1xcoxeC FN2YXskhD5ddhUUNrgsCm6a dHRibHtcZjFcZmNoYXJzZXQ jMQQqnQfhENVcGBf8jH9SEr aaZAC3CCEQPrecZQQvPX4Cd 9xpAUIkpHQtXJC2XSizhHXj BKIxVJMaUQm5XIKsPMqveHF yPM4ilHcvDjiatXmdl2RtlO BcXGlkIDUxMDAyIFxcZGIgI L1QBvNfIKW2KZx1GARiFKy2 NFo8FL9RMcElGMNtGAQzCja 0TJArLNf4AObqWZ6ERFD6HJ H5Zlv6EUT0EMZnFlVzRKLjH iBcXGYgQXJpYWwgXFxmbCBc KC9zmBlfrEPnbbVCLhREVYI uaWEuXHBhciANClxlcGljTm VzdERvYzEgDQpcbHRycGFyX GxpbjBccmluMCANClxsdHJj iIbtjqKpWTTpB6HkciPkODU iHUPzTJwzMuOhADDme3x6oJ Q8qXInuYE8dSHrtArcNcFqZ G4xoGUcZA6hTOyeHCkqwxTk p5NwEJ80yBOwcjUgehJgKjy sxz8aMKSniSNwWTG9SighjP KhZoPqE69cjH1urxmcamSjJ BO8IF6jc0cvdwLwzVcnbRWs BKZ0N9doBMTihZ7eTCCyYYE 8hBLsOrUcDoNlE03kQHCYkE DbNVGpRBLbiTcjIUHpv9BnX YcdIYCjQU9vYNgjDU87HUzh VK9cHAStXYMntvBgXMxawMC qq6WhjAKzKL6ktr4ejmDgfr KztMR6tGH9FRbiBPApDIXns RUnob4jDNMnOLBwcJ4jGDR8 AS7ahohsgb6xGFKkVNTloYz kxZ3fLCBoEJQey3bcRZniMC FzRh09UKcpWw7pFYkjLY24J ZBfBOOvJ6R9sINlAIEoadNj d42by8ZvoGdewk7nIYVyRkm iqq5dZM2tgvGtn2EpGBJks9 N3LD6lNIBxICPckLWsQEbiG XHdofjfrIl8WJKvU9Xzp50t ZCBhbmQgYSByZXByZXNlbnR rwXt6NIMmMJI3pZ5eDW9tYN AkNGOjjxHnuMQ1tQCmIBKbE EBbxRbwxmapObpmyy4pUT4x zuNbi2LdDQKqe2Z7KJGzftW ukJEupRA5ZFEfbD7pLKGbIJ wjlfJrGDnkgcQzG2pbyDZrT CRMnkK3avijSDyZATEDLPSl EQFNGGgreB7TIJAdOWnhYIY ndSGETPR9LX2yHLhnfRLimd btQEFgS3AiG9WntdZdvSWiM YLcxbXwv7aoPOU7NPXynNPm zWZmCfNhEweaYQZ0WOhdx5e fZHL2YCPkeIUkeQAlWNwiZv WhOrsqLXYlS8VeN9AdjzU2Z Qp9 MICROSCOPIC s0vbnRFuRMKqbSJ0LwWfKCY DESCRIPTION (test code hs7ikx3QrgMTfdXNgPBwtzC = 3371) PaceIvlr61hYL2mG35GR6wM LHzCcZ5ETXungK5Roi9ATCg KOPfjVJnC970d2hdl9lmtsD gaZR5nPwsAITdprywTnI4ZC foJJUdyoknIAq0LIsvZDUnk JQ1UJZmjHFoJ0ZpOTKkNM1i vnr5UPJ1BEmoUVPtSpV9TSG zbBFwBDIvwTxyVSgls298OP H2SpTrVZDzfqBtfNzejL5zL nPzRGGQBMIvj5HlUDSpZSfd YXJ9 Gross assessment was [facility] performed at ([facility], code = 2777) Department of Pathology, [address] [place] [id number], Technical component [facility] was performed at ([facility], code = 2778) Department of Pathology, [address] [place] [id number], Professional component [facility] was performed at ([facility], code = 2779) Department of Pathology, [address] [place] [id number], [facility] [id number] 19:09:30 Test Item Value Reference Range Interpretation Comments Case Report (test code Surgical Pathology = 104) Report Case: [id number] Authorizing Provider: Milena Swartz MD Collected: 02/13/2022 08:26 AM Ordering Location: [facility] Received: 02/13/2022 09:18 AM SERVICES Pathologist: Annita Brower MD Specimen: Hernia, Hernia Sac DIAGNOSIS (test code = [id number] 3220) uZzEwMzNcZnRuYmpcdWMxIH tccnRmMVxlcGljOTYwMlxhb hErZCMqjWPvB0CvujgwGMsb JK7rPG5qpLushVTnoVGoBYX gDlAqd4npl449aEUsl7auWK EUbxndxQy3cOevA24od5S1L nvdL45xxQTbTME1EKBwBWFc lRPmIGVfMWW4YRColNIvL1x aEMBhQJ3xintwYHtlDMqrTD CsnKL7XGDdzZBoK6FsNBDyP AcqBPJlmoj6UtKtYf0jmKSn eTcyMFxwYXJkXHBsYWluXGZ dVyPwX3hNTpRIKoIeT39OSV FZELATMYFpEHJSZT9BKV4vT NgLYb0UX7XKKQHMSMbepCDm XGxpNzIwXGxpbjcyMCAtIEZ COdSPCtLDX1VGZWYpPMsBU7 WUFGREN3XALUqhVFyEVBBjJ wbyGpFLJIiKOX4GS65AMAUF LUXSREZFRMyALWJYA68XSHG PYI8IYWUcxqRuMBpKFOdpUR FWUlrVGNXEF4jlYQGrDZDUE 6uKLNwICShcJ3OXJJVHUPIX HBmyCEOHC1oYRwXUGpEiK6Q TMafdWOEzrZVpXYeuFVD4y5 xydGYxXHNzdGUxODAwMFxhb nNpXGRlZmxhbmcxMDMzXGZ0 bmJqXHVjMVxkZWZmMHtcZm9 lxBLrkQcaJkWhKCLtl8aehw ZXskqbaNm3i4fqSHJpBhF0f WIiCZgcB0oxlwTwqVVdOXOq HXv4vE09RINanY0frFJtPFl hpsJgXzU5TQccQBVfTgB0BR DxtANoNZKxI3kfDTZzEThfV QWsXGifaCOjHLZ3gWfuk5K4 bGVzaGVldHtcZjBcZnMyMiB Aa4JlBEs9gJlcO6DbFNNhLz K3tNJlZWCkVLngZCChGRIpq pT6lP52AXlkicW4tDCgm6Ii a67rk662vL0qfJWcXXU1EOZ oOUZdiPEuNXZcBEK9GZTcwL MyB1juDYRpZU1qqqzwCYgtI GqzEAOwdQU7UDJisKNzM2Kk MGQkXRewTIVadgz9WlQwLk6 zwNQylZzsCPdws4spo6raiE PtLau6TKEbOrMbNthtHNygq 0Drz4koIRCuqx1yUVL9iIOi jRofy7J1fAZuVPEvvFSyABV vHT0beVKrVNMhcJ9hvgeeIK BnYnJkcmhlYWRccGdicmRyZ f1eoZseTTF5EFdyI3eoiQ3a UaF4FRcfK4gwoD6kYCn4RVf fLDZxfBP0wyJ3LFUrcRGdS3 SyaX2pOCXyEJ7gwqd8f1bxB DD6AGbfBDVdOuQ9etO5XLDc mYXqCXAiwIoeEFcpx642WSH 2SkGfHBPvf8ZnP4WafJccN3 8ddMqkG02hMZSunGyifU2ld EokqQ7rLqLiNzImTLgrqPfb YO6tEKGhA7pfdIApZNEpTSR fY1jxItBaxV8lpThiZSvmgz VbVCBhBll1QKSqdHIdMFYwL kp1OASfKOZcN36btugbPME7 hL4ve8nye2RmPCeeCKF1SZG qy35kNXgtpqS5WFtmEc19YU zyICY7DFwzBNP9lB== CPT Code(s) (test code d5yuwSMrHJIdvMH4CnTaDLJ = 3357) re0bkr9WftQJugIEjIAhxjW QjrxAfmn99bAH2oD79GP6gM IUvNwQ3KYCvuyV3Xfz9VGCt JUHuyUEpX624g4amz2dvqyA qiTH8qWdwOLJidtvlAoV4TT zoLHFafmkzUZt7XIkcEBFqp MR6STTgjPLbV1KqCWFwQR0r ibt3ZBN3OGehENTvPwL6AIF uhXIiSMMsbUkyEFzbs975MQ F5OaNxNXIgjiVpkKpilH2jL wDwCLH1AWKiUhseONJ1 CLINICAL HISTORY (test p5sxvBCxMEEriKL7LxObWIM code = 3356) ya8kxv4EdbXLarTDfWGyliG BpcrBgti58lHB0vN34EW7uM JCtWuN0OMBmsyV0Gpe9NOPv EWWjuBFeG847u1sma6jwjdB bfPJ0gNqqSUMhcvnsRlL8IM zhTUVsiezwFCx7RVnoQFUmf LF4AEXvvRYaV1UfJZWaTR9r zxq8NUX8JMliVZLyJlP9WDE toLQdVCMebGojGGops028ZO D3FeFeMPQyjqNtrFyusH3kS nMyMCBVbWJpbGljYWwgYWJk m94aatLqJNaccu6fLBodEVH 9 GROSS DESCRIPTION x4yufDAxJRAexIUNYYZlN9x (test code = pxrUuCTEmxBBrM6TcrmawPN [id number]) yvIU9mEX4jxVsyjJQfdMSfD H5GLGPaGuJiTBBurJJjwtEy HiDoDIUmmGVxqZC6GVKjTD3 lmjbmDBneVCgaKTMhfwQ3AI ZvrHLuS2EgAXHzCG8imtpqF ZX5KKfbiH4wnbKGKjltAj7o dHRibHtcZjFcZmNoYXJzZXQ uWNCpuGczTUOjGJu2nS5BDp dhGGP0IQLUWbmpYBQxJR4Ei 4bkKOHxnCWwRHB5TYenmVLh VPUiFVHkVGu1ASXmWRmzaCJ iJJ6zwTtuGxxlfClor2MfoY BcXGlkIDUxMDAyIFxcZGIgI P6CTrVtTKB6HXk0HKLcOVh0 TLh3KB6AMzHtGTKtXSPkRls 8ZMSoKBn1BQgdVV5CSJP9DB O9Lgr3CHQ3OQKnYsWuDTOzY iBcXGYgQXJpYWwgXFxmbCBc VQ1inEkmfOWcmxLPDoBUBVP uaWEuXHBhciANClxlcGljTm VzdERvYzEgDQpcbHRycGFyX GxpbjBccmluMCANClxsdHJj kBtwluMhAMTaU6IlwoJnWFV vNKCyNConOjBqOVTnl0u4fC Y4hBIraEJ5cIWoiOxnIuXaY R8xjOFbCL8nHJzuWUplvhBj g8IiVL59tRDkpyMcstPhUqc pup2uMWAqdHTqOGT8ZutlyG ZiHsOnG45ewU1xvlolurQfW VR9BY2tp1aeohYrzKtfbJTx UVQ4Y2zkDQLgsD5kSZKlROO 4eEXiIyXnVbOhK22eUPGHdS UaKTRpIXHsyWyxWJBek0ZtB FmiCJAzGY3qRAxdZP39ITvz YP5iHVPtSLRbxsAjDHgfsCD oy1KpzXLoTL7lyj7esePqrl MmsPW5gUE3SCmuXSGgVYWkv SZoxl4xARTfERCfgD9xZPN7 QN6rzjtcqj0oYMBpLNScnVl opH6eFYYrKYChf1oySQpkVB PePx84LVasCq2zXKrrIW18P FMjHXZqP2Y0yYMcXVCwgvXw p45td2QizSfagc4hJSChRzi axx8dZK9ganBjl1OuEECpk0 D6XA3tVKNfSKRsoNUqEKmzC EInqxmnnRt6HEFvX2Ejr45n ZCBhbmQgYSByZXByZXNlbnR wjFl1OCWpLDU8eV4bBC7gIU OfQEXbucJneTG0tMTaOIPzT WLcjJrbtfxyKcthth4kBY7j wbTpl6FcMIBet3I1IGJwtkU vdJSaaSU0KAMepN6xPIUfGU gvlqGvGHtpfaVyL8lopJWqJ SIDvmR5vhinMVqITPWIFBVn RSVBEPqzdL5UEBCwNCujIGL xzBLMGNY2AC1aXEjhhAQbwk hnQBVzR9QfG8JhdcAfxXPqA CFailKhs1fcXEP6WDYfeQOz wSMmZaIoXwmgOUV9QJqwo6n rNNO9JFMthNOyfPOvAXksWz XzBelmSAEqG1OdN6GbgeQ0K Qp9 MICROSCOPIC n5vugOBrVRXxjUT9QqSsBRU DESCRIPTION (test code gb3xhv8MpaJJsmYCbAUqsnF = 3371) HrwhNwhj90xBJ8tN00SV5cY LMsAxN5MCPmhwU2Uat7TJFn RCRvwDOlM990y8ixk8akicY ugAI4jVdkKQCaiygyPoZ3IP psOAIwgcaaNAw5TObqBXZhl DJ5OYLnkZUnL8UmQQCuPD3f czd8ERO6BIejPCMwMoU3MRG ljCVjHVKraRehEAwmh946TB Q3ApIfGGSmhkSffRqezW2oA dSrCDTHSYXys6CnISXrHAxh YXJ9 Gross assessment was [facility] performed at ([facility], code = 2777) Department of Pathology, [address] [place] [address] 71874, Technical component [facility] was performed at ([facility], code = 2778) Department of Pathology, [address] [place] [address] 44695, Professional component [facility] was performed at ([facility], code = 2779) Department of Pathology, [address] [place] [address] 11106, [facility] [id number] 19:09:30 Test Item Value Reference Range Interpretation Comments Case Report (test code Surgical Pathology = 104) Report Case: [id number] Authorizing Provider: Milena Swartz MD Collected: 02/13/2022 08:26 AM Ordering Location: [facility] PERIOPERATIVE Received: 02/13/2022 09:18 AM SERVICES Pathologist: Annita Brower MD Specimen: Hernia, Hernia Sac DIAGNOSIS (test code = y3dssKPqPLXgi8axFWAoeUU 3220) uZzEwMzNcZnRuYmpcdWMxIH tccnRmMVxlcGljOTYwMlxhb aQbPMQtjGDkX9HsatyuSYyy EI1aJX8teEmrdHKwvJIjNGT sGuSkh5enw055qSUyu1tfCK QHhqvemLe0xPykS85mp8B2E omfN58kbSRdWJK8ZHZnEWMq sRWyIEZxYMY4OJMxgOKjL1j oDUIvAZ8owmroROerZMquSD AxmZU5QJNcbLTwK7LmUQNiN RsbAXUguuj0LwGsQp3elFNe eTcyMFxwYXJkXHBsYWluXGZ kQrBgC2mSUxIHJpKrK35CQC LENWFWGBIlXFVIFR2OHI6fR SsEAe6WI9KZDOSXDLzmxICq XGxpNzIwXGxpbjcyMCAtIEZ PExXNTsKSS7RRYLVtCMjOC5 LCKRALA7CQIVzfLJyXMTZzM ragHoRWOWwDWF7GN34CVBAZ OPYYHSMWENcMYCXNB33NHLP DTC8IFXWsgpPrAWnHXMrsOJ GVJzvHSGSRZ0mgCJZkDZNNZ 9vFCVaNVNgeP2DNXBXWTPXU QFoiUCNUK2tPBuWQZfXsE6Q KOhdiSRBovDOsWHnaQFB9g2 xydGYxXHNzdGUxODAwMFxhb nNpXGRlZmxhbmcxMDMzXGZ0 bmJqXHVjMVxkZWZmMHtcZm9 vtWHwfAzgWhCaDXGjs5avto SWntldhOw9b0sjAYHqZiW4h FLzOSdkA2ehkdTwrQNoGWPo NQb3aR62YUWcoP5feBLkFUl nlfMtXiN7LNpfPAJgPuR3NR NicTZsUQWiZ7zmHQPeBYjsG WNsEEfmlETwMGR2xAtfa0A2 bGVzaGVldHtcZjBcZnMyMiB Sh1DkAPj1vInqZ9DxKNEgJw M6bNQjQMNzGNapUBWlMCUwl nT2jE70FBxlgrE6vLZqq6Bc p53ab401lT8yyIQiAQO1KHX qCYHyiILcESBvDFV5LEEzaC TkL8miKZGoKR2vcganUXhgQ QpnTOErwAN5LNHfiCRqW1Ne YYWhPAvlFDDwcsh7YfToCd0 nmANxwOqpYUxbr8vmn9scaV AySva8BNEnWlKkWbhcFAkzo 8Vkg5ooGPNgyl3sBEJ8kDKs kVoas3B7kFXbFUUymKAoRDR lWV2ouXWlKCTrhF3ifbaxRN BnYnJkcmhlYWRccGdicmRyZ k3mkCarQGF9TUszL6vfgL5x XtJ3RStoK1oyoA7yDVi0JPp fYDCncZD0xhE5BEJohAWjP5 TdbQ5cNRDxTO0kyei9u7xiG IT2QKcjCNBrBwV9pmY0VIQh lABmVNJksBnwYFqkz610HNJ 0SjPkXPOmp3XoC8YveFspA7 3flWcxT71eLFQezMxyfN1kp JfnqM1hTtImDpOyZHxvsHjv IT7vJNCeD0furCRyWEGpESN zI0fsKhGhsU8vdPicACaozn IyBZLyZea9ZHEsxWNfCNAfI wh5GIYdQTHuK81wuaztSER2 gP5gz1rwj4FxEYodWHJ6CJP mt07dMBxlmaB3SBziKz50YI cxMFJ7LSssMFE2xG== CPT Code(s) (test code q2ypbGRfNAMseXF9UxZsPMC = 3357) wd1kdt0CfdMQuqUPoRXhnuG DbmtMvxu47vOO2xZ37QB5dG NQnMhE4RBDibhA5Xfp5MFQz PTHnlHVxW762g8wox7qvdtE yrJT0kLcfELQnzmrsHcW9YY pkMMDjwxvyVJa6QMplEOQfc CX9NQRpnKScY2QgUVNjLL2f jwy1YCU0CJmaCXAuHxK2OQR miEAlDKWsfBhfJNhxm609AP Q9BqGzIUEujoCyrOmseY0gN mOmJZO0WJUhEvcnDWH2 CLINICAL HISTORY (test g9xqyZHeYAPrzTM6SsRhZSE code = 3356) ll4dsk0GckHUuqQHeTCzbgM SfkeTqqd53tCQ6xP96YF8tR CKiYbE4LOPubvZ7Sms1LUJn QMNywRUiG328j9lwn4bdrkB seGN5rKooDVUktcgoCjN7LA waYTOdwupsHWv8VFteQUTwp QZ5RDVitKEuD4NwGVIrZJ7z ecq6XUZ8YZipRZXcHiY9CNN chATlCCIuwFhoNHlhf707BG F7CtSfTQUlzrRnlMhfiN9tY nMyMCBVbWJpbGljYWwgYWJk o71ighTeLGnltb1xRMotDZC 9 GROSS DESCRIPTION b0xozHRjOPDpsHUMWTQtS5h (test code = zfuXdURLbxSVxL8HnczyyAG [id number]) fqVF5fTT0cqGpdtIQoeEYcL B8JVKQcEvDeDUNziNNevxKa SlFnTRWleTDapTD0XBVzVA4 hekprTRubMUfbZKIxrpW5FQ DmtRNnD9TpBZTcCV2snvjnQ IW3GDgfsA0mitMKCjnmTi3a dHRibHtcZjFcZmNoYXJzZXQ eHEPanKsiNTLfCZk4oO6LIx mdYHJ3KQCAOhilNNJqRD5Rt 8vtLTYiaKYtNRH9QGlisAXl SQYePDIkZGu8DEMxFCmelTQ yRI1amKakPmvqnDmbu0YefV BcXGlkIDUxMDAyIFxcZGIgI C8RVaWtYKA7TIg9SPUjWTp7 XCm6SY4KYmCqYPZaPFTrZlu 7NZHmMOr6ROudYM4JSZZ3TL N2Zjo9TCC8AYEpIgNvRLRdO iBcXGYgQXJpYWwgXFxmbCBc LL0ntKxyxUNzcrVTSaBHHRF uaWEuXHBhciANClxlcGljTm VzdERvYzEgDQpcbHRycGFyX GxpbjBccmluMCANClxsdHJj zTrsnzUpSUCvO7HlyxFaBQA zVWFdBXjtVqBzTACfo8w3vY B4pAQirPL2fQIiiLxlNeEkJ D8uzFFrPU1eVRvkQZmbqgFf e6ZcQS34yXMudvXhgfDlHkc zci5wDFLrwTNmNVI9QepfpO IfZcTkX76igF6hxhwoaxWiB DS6UQ0gn5gpoqOyeYglmUDi UES3G2hsVSQatM2dFPMzAYL 1mVBlNyTvXlKxP73zWMQSzU QtTHTkBPHrrOllPYHoo6GmE KqxDOKrLS6dRSnaLC47UJqw RV3pFPHjYHLiksGqVImmsCE tj3CxnUOqOZ0ylq5xtjGxws VfsPM2qBI4JYkaWWNdRXFou OMsry4oBJFuUADiuV6zJBG3 VS9eoyepvk6bXBBhRSQdsOz ljM7aQYIsMAUry7unXQkxOI NrSz66DXzhCa4xORthYG55C FGfHGFuP6A0gYGmAFNaocIe n51dd8WvnInhdl3sHYRqLlz zba2eIB8aehBzt0XqEYLlu4 L9EW0aWPMyKUFzhUTdHGyqD IKmymrxcTh9CCPhH2Gwz37i ZCBhbmQgYSByZXByZXNlbnR gsRf5NBBqPHW0vO0lQQ4wCB ZmPRBsfzUwiYO1uSVxEKHuS BUlhNgwbrfvUrtrhr1dAZ5p adXyf2DwXVDsa1S4NCEbfwI jlPHusEV6FRAhqZ2aMUGsUE ryykDfAUebccQaR7rfcHJsT MITmbR0uyyiAGuZGRGBGCTg EVZIMXbagT4HGBCmHJkuBZD vlENKICI8QZ5lXAbdwVEllh voUZFmP7LrI8XqneEayYYbM XDotvWyw4kxQOX5PKRwhQHp wZDaPsHjEnsxIHW7PWepo8g oBAB4OGGefPRkfLXvYTmdTo UgYnddAJAtV1AkV4XvxsF5I Qp9 MICROSCOPIC l3wsbJSaIQHcqKG5IkDcDSQ DESCRIPTION (test code dq9vvo9GyrTKmnRGeEMqaxY = 3371) DgriPydy52zCB3vX30UZ4pA QRvMrY5RNTaguI2Sog5WZTr CFBhmGTvU982t1aat8yvkxB vaXT4lFvdTWTicgwsWoU2WT rfWSUmavatCTb3YKmsZRHwl PL9YFZusFMfI4UsKPWuKB1z kjq2EER3WCxgNUTaVnQ3PJU uoPBpIJNaoMfwLLfst560AO A9CiYbMDIxngXekWzbyK1zF tUvNVUQVJPud0CjYQWaWEli YXJ9 Gross assessment was [facility] performed at ([facility], code = 2777) Department of Pathology, [address] [place], [place] [id number], Technical component [facility] was performed at ([facility], code = 2778) Department of Pathology, [address] [place] [address] 81355, Professional component [facility] was performed at ([facility], code = 2779) Department of Pathology, [address] [place] [address] 69473, [facility] [id number] 19:09:30Surgical Pathology Report Case: [id number] Authorizing Provider: Milena Swartz MD Collected: 02/13/2022 08:26 AM Ordering Location: [facility] PERIOPERATIVE Received: 02/13/2022 09:18 AM SERVICES Pathologist: Annita Brower MD Specimen: Hernia, Hernia Sac SKIN AND SOFT TISSUE, ABDOMEN, HERNIORRHAPHY- FIBROVASCULAR TISSUE FOCALLY LINED BY BENIGN MESOTHELIAL CELLS, CONSISTENT WITH HERNIA SAC- SKIN WITH SUPERFICIAL EROSION AND SCAR Signing Pathologist Direct Phone Line: [phone] signed by Annita Brower MD on 02/14/2022 at 7:09 [id number] abdominal herniaA. Hernia.Received fresh labeled with the [...] tissue. Specimen is serially sectioned and a disability representative section of the crest with underlying fibromembranous tissue is submitted in A1.BREE Malone, KAREN (ASCP)cmPerformed. [facility], Department of Pathology, [address] [place] [address] 81254, [facility], [facility] of Pathology, [address] [place] [address] 04685, [facility], Department of Pathology, [address] [place] [address] 58195, RCFCU [id number] 15:01:18 Test Item Value Reference Range Interpretation Comments CULTURE (BEAKER) (test No growth in 5 days code = 1095) BLOOD [id number] 15:01:18 Test Item Value Reference Range Interpretation Comments CULTURE (BEAKER) (test No growth in 5 days code = 1095) PROTHROMBIN TIME/[id number] 12:19:24 Test Item Value Reference Range Interpretation Comments PROTIME (BEAKER) 18.5 seconds 11.9-14.2 H (test code = 759) INR (BEAKER) (test 1.57 See_Comment [Automat ed message] code = 370) The system [employer] generated this result transmitted ref erence range: <=5.90. The reference range was not used to int erpret this result as normal/abnormal . RECOMMENDED COUMADIN/WARFARIN INR THERAPY RANGESSTANDARD DOSE: 2.0 - 3.0 Includes: PROPHYLAXIS for venous thrombosis, systemic embolization; TREATMENT for venous thrombosis and/or pulmonary embolus.HIGH RISK: Target INR is 2.5-3.5 for patients with mechanical heart valves.BASIC METABOLIC [id number] 07:20:14 Test Item Value Reference Range Interpretation [...] 1092) DATA TO CALCULA TE ESTIMATED GFR. Electronic Publications Specialist ID - LIZBETH CRYSTALPATIC FUNCTION [id number] 07:15:22 Test Item Value Reference Range Interpretation [...] (test code = 8 U/L 6-55 347) Electronic Publications Specialist IRA NIEVES WCBC W/PLT COUNT & AUTO [id number] 05:36:43 Test Item Value Reference Range Interpretation [...] (BEAKER) (test code = 2801) MISCELLANEOUS LAB [id number] 15:43:46 Test Item Value Reference Range Interpretation Comments SCAN RESULT (test code = See scanned report [id number]) See scanned [id number] 11:00:24 Test Item Value Reference Range Interpretation Comments Cytology (test code = See Separate Report 2629) [facility] 11:00:24 Test Item Value Reference Range Interpretation Comments Cytology (test code = See Separate Report 2629) [facility] 11:00:24 Test Item Value Reference Range Interpretation Comments Cytology (test code = See Separate Report 2629) [facility] 11:00:24 Test Item Value Reference Range Interpretation Comments Cytology (test code = See Separate Report 2629) [facility] 11:00:24 Test Item Value Reference Range Interpretation Comments Cytology (test code = See Separate Report 2629) [facility] [id number] 11:00:24 Test Item Value Reference Range Interpretation Comments CYTOLOGY RESULT POINTER See Separate Report (BEAKER) (test code = 2629) HEPATITIS B SURFACE [id number] 07:12:32 Test Item Value Reference Range Interpretation Comments HEPATITIS B SURFACE ANTIBODY < mIU/mL <8.0 (BEAKER) (test code = 647) Electronic Publications Specialist ID - PIAYA LBASIC METABOLIC [id number] 06:43:07 Test Item Value Reference Range Interpretation [...] 1092) DATA TO CALCULA TE ESTIMATED GFR. Electronic Publications Specialist ID - RIGOBERTO LHEPATIC FUNCTION [id number] 06:36:45 Test Item Value Reference Range Interpretation [...] (test code = 11 U/L 6-55 347) Electronic Publications Specialist ID - RIGOBERTO [id number] 06:36:44 Test Item Value Reference Range Interpretation Comments MAGNESIUM (BEAKER) (test code = 2.0 mg/dL 1.6-2.6 627) Electronic Publications Specialist ID - PIBRAXTON LPROTHROMBIN TIME/[id number] 06:30:02 Test Item Value Reference Range Interpretation Comments PROTIME (BEAKER) 19.0 seconds 11.9-14.2 H (test code = 759) INR (BEAKER) (test 1.62 See_Comment [Automat ed message] code = 370) The system [employer] generated this result transmitted ref erence range: <=5.90. The reference range was not used to int erpret this result as normal/abnormal . RECOMMENDED COUMADIN/WARFARIN INR THERAPY RANGESSTANDARD DOSE: 2.0 - 3.0 Includes: PROPHYLAXIS for venous thrombosis, systemic embolization; TREATMENT for venous thrombosis and/or pulmonary embolus.HIGH RISK: Target INR is 2.5-3.5 for patients with mechanical heart valves.[id number] 04:53:41 Test Item Value Reference Range Interpretation Comments PARTIAL THROMBOPLASTIN TIME 43.5 seconds 22.5-36.0 H (BEAKER) (test code = 760) PROTHROMBIN TIME/[id number] 04:52:58 Test Item Value Reference Range Interpretation Comments PROTIME (BEAKER) 18.7 seconds 11.9-14.2 H (test code = 759) INR (BEAKER) (test 1.59 See_Comment [Automat ed message] code = 370) The system [employer] generated this result transmitted ref erence range: <=5.90. The reference range was not used to int erpret this result as normal/abnormal . RECOMMENDED COUMADIN/WARFARIN INR THERAPY RANGESSTANDARD DOSE: 2.0 - 3.0 Includes: PROPHYLAXIS for venous thrombosis, systemic embolization; TREATMENT for venous thrombosis and/or pulmonary embolus.HIGH RISK: Target INR is 2.5-3.5 for patients with mechanical heart valves.CBC W/PLT COUNT & AUTO [id number] 04:09:00 Test Item Value Reference Range Interpretation [...] = 2801) BODY FLUID CULTURE + GRAM [id number] 16:28:40 Test Item Value Reference Range Interpretation Comments CULTURE (BEAKER) (test code = 1095) No growth BASIC METABOLIC [id number] 06:42:07 Test Item Value Reference Range Interpretation [...] 1092) DATA TO CALCULA TE ESTIMATED GFR. Electronic Publications Specialist ID - RIGOBERTO [id number] 04:33:17 Test Item Value Reference Range Interpretation Comments MAGNESIUM (BEAKER) (test code = 1.7 mg/dL 1.6-2.6 627) Electronic Publications Specialist ID - RIGOBERTO LHEPATIC FUNCTION [id number] 04:33:17 Test Item Value Reference Range Interpretation [...] (test code = 13 U/L 6-55 347) Electronic Publications Specialist ID Portillo FRANKLIN LPROTHROMBIN TIME/[id number] 04:11:48 Test Item Value Reference Range Interpretation Comments PROTIME (BEAKER) 18.3 seconds 11.9-14.2 H (test code = 759) INR (BEAKER) (test 1.55 See_Comment [Automat ed message] code = 370) The system [employer] generated this result transmitted ref erence range: <=5.90. The reference range was not used to int erpret this result as normal/abnormal . RECOMMENDED COUMADIN/WARFARIN INR THERAPY RANGESSTANDARD DOSE: 2.0 - 3.0 Includes: PROPHYLAXIS for venous thrombosis, systemic embolization; TREATMENT for venous thrombosis and/or pulmonary embolus.HIGH RISK: Target INR is 2.5-3.5 for patients with mechanical heart valves.CBC W/PLT COUNT & AUTO [id number] 03:48:24 Test Item Value Reference Range Interpretation [...] (BEAKER) (test code = 2801) BASIC METABOLIC [id number] 05:46:16 Test Item Value Reference Range Interpretation [...] 1092) DATA TO CALCULA TE ESTIMATED GFR. Electronic Publications Specialist ID - BELLA [id number] 05:44:21 Test Item Value Reference Range Interpretation Comments MAGNESIUM (BEAKER) (test code = 1.9 mg/dL 1.6-2.6 627) Electronic Publications Specialist ID - BELLA GHEPATIC FUNCTION [id number] 05:44:21 Test Item Value Reference Range Interpretation [...] (test code = 16 U/L 6-55 347) Electronic Publications Specialist ID - BELLA GPROTHROMBIN TIME/[id number] 05:30:37 Test Item Value Reference Range Interpretation Comments PROTIME (BEAKER) 17.2 seconds 11.9-14.2 H (test code = 759) INR (BEAKER) (test 1.43 See_Comment [Automat ed message] code = 370) The system [employer] generated this result transmitted ref erence range: <=5.90. The reference range was not used to int erpret this result as normal/abnormal . RECOMMENDED COUMADIN/WARFARIN INR THERAPY RANGESSTANDARD DOSE: 2.0 - 3.0 Includes: PROPHYLAXIS for venous thrombosis, systemic embolization; TREATMENT for venous thrombosis and/or pulmonary embolus.HIGH RISK: Target INR is 2.5-3.5 for patients with mechanical heart valves.CBC W/PLT COUNT & AUTO [id number] 05:20:54 Test Item Value Reference Range Interpretation [...] PERCENT (BEAKER) (test code = 2801) U/S, [id number] 18:04:00SIERIC DELAROSA MDLabs to be ordered:->Body Fluid Culture (w/Gram Stain, C\\T\\S)Labs to beordered:- >Glucose+LDH+ProteinLabs to be ordered:->Cell CountReason for exam:- >ABNORMAL LABMENDOC[facility]ITALName: EDDI JONES : 1955 Sex: MFINAL REPORT Ultrasound guided paracentesis Clinical History: Ascites. Sedation:None. Senior Applications Architect: Allison Willoughby PA-C Supervising Physician: Jhon Mora MD Toxics Program Officer: None. Estimated Blood Loss: < 1 mL. [...] anesthesia was achieved with lidocaine, a 5 Tajik one-step catheter was advanced into the peritoneal cavity under ultrasound guidance. After completion of drainage, the catheter was removed. There was no evidence of complication. Impression:Successful ultrasound guided paracentesis. Signed: Jhon Moraeport Verified Date/Time: 02/10/2022 18:04:01 Reading Location: [address] Ultrasound Reading Room Lactate dehydrogenase (LDH), body [id number] 15:49:23 Test Item Value Reference Range Interpretation Comments LDH, Fluid (test 78 U/L code = 25376-7) ALLYN (test code = Absence of reference ALLYN) range indicates that normals have not been defined.Assay performance has not been validated for this type of specimen. Electronic Publications Specialist ID - [id number] [facility] CenterLactate dehydrogenase (LDH), body [id number] 15:49:23 Test Item Value Reference Range Interpretation Comments LDH, Fluid (test 78 U/L code = 23566-3) ALLYN (test code = Absence of reference ALLYN) range indicates that normals have not been defined.Assay performance has not been validated for this type of specimen. Electronic Publications Specialist ID - [id number] [facility] CenterLactate dehydrogenase (LDH), body [id number] 15:49:23 Test Item Value Reference Range Interpretation Comments LDH, Fluid (test 78 U/L code = 94845-5) ALLYN (test code = Absence of reference ALLYN) range indicates that normals have not been defined.Assay performance has not been validated for this type of specimen. Electronic Publications Specialist ID - [id number] [facility] CenterLactate dehydrogenase (LDH), body [id number] 15:49:23 Test Item Value Reference Range Interpretation Comments LDH, Fluid (test 78 U/L code = 13551-4) ALLYN (test code = Absence of reference ALLYN) range indicates that normals have not been defined.Assay performance has not been validated for this type of specimen. Electronic Publications Specialist ID - [id number] [facility] CenterLactate dehydrogenase (LDH), body [id number] 15:49:23 Test Item Value Reference Range Interpretation Comments LDH, Fluid (test 78 U/L code = 07714-1) ALLYN (test code = Absence of reference ALLYN) range indicates that normals have not been defined.Assay performance has not been validated for this type of specimen. Electronic Publications Specialist ID - [id number] [facility] CenterLACTATE DEHYDROGENASE (LDH), BODY [id number] 15:49:23 Test Item Value Reference Range Interpretation Comments LACTATE DEHYDROGENASE FLUID (BEAKER) 78 U/L (test code = 634) Absence of reference range indicates that normals have not been defined.Assay performance has not been validated for this type of specimen.Electronic Publications Specialist ID - [id number], body [id number] 15:47:39 Test Item Value Reference Range Interpretation Comments Protein, Fluid (test 1.7 g/dL code = 2881-1) ALLYN (test code = Absence of reference ALLYN) range indicates that normals have not been defined.Assay performance has not been validated for this type of specimen. Electronic Publications Specialist ID - [id number] [facility] CenterProtein, body [id number] 15:47:39 Test Item Value Reference Range Interpretation Comments Protein, Fluid (test 1.7 g/dL code = 2881-1) ALLYN (test code = Absence of reference ALLYN) range indicates that normals have not been defined.Assay performance has not been validated for this type of specimen. Electronic Publications Specialist ID - [id number] [facility] CenterProtein, body [id number] 15:47:39 Test Item Value Reference Range Interpretation Comments Protein, Fluid (test 1.7 g/dL code = 2881-1) ALLYN (test code = Absence of reference ALLYN) range indicates that normals have not been defined.Assay performance has not been validated for this type of specimen. Electronic Publications Specialist ID - [id number] [facility] CenterProtein, body [id number] 15:47:39 Test Item Value Reference Range Interpretation Comments Protein, Fluid (test 1.7 g/dL code = 2881-1) ALLYN (test code = Absence of reference ALLYN) range indicates that normals have not been defined.Assay performance has not been validated for this type of specimen. Electronic Publications Specialist ID - [id number] [facility] CenterProtein, body [id number] 15:47:39 Test Item Value Reference Range Interpretation Comments Protein, Fluid (test 1.7 g/dL code = 2881-1) ALLYN (test code = Absence of reference ALLYN) range indicates that normals have not been defined.Assay performance has not been validated for this type of specimen. Electronic Publications Specialist ID - [id number] [facility] CenterPROTEIN, BODY [id number] 15:47:39 Test Item Value Reference Range Interpretation Comments PROTEIN FLUID (BEAKER) (test code = 1.7 g/dL 579) Absence of reference range indicates that normals have not been defined.Assay performance has not been validated for this type of specimen.Electronic Publications Specialist ID - [id number], body [id number] 15:45:42 Test Item Value Reference Range Interpretation Comments Glucose, Body Fluid 120 mg/dL (test code = 2344-0) ALLYN (test code = Absence of reference ALLYN) range indicates that normals have not been defined.Assay performance has not been validated for this type of specimen. Electronic Publications Specialist ID - [id number] [facility] CenterGlucose, body [id number] 15:45:42 Test Item Value Reference Range Interpretation Comments Glucose, Body Fluid 120 mg/dL (test code = 2344-0) ALLYN (test code = Absence of reference ALLYN) range indicates that normals have not been defined.Assay performance has not been validated for this type of specimen. Electronic Publications Specialist ID - [id number] [facility] CenterGlucose, body [id number] 15:45:42 Test Item Value Reference Range Interpretation Comments Glucose, Body Fluid 120 mg/dL (test code = 2344-0) ALLYN (test code = Absence of reference ALLYN) range indicates that normals have not been defined.Assay performance has not been validated for this type of specimen. Electronic Publications Specialist ID - [id number] [facility] CenterGlucose, body [id number] 15:45:42 Test Item Value Reference Range Interpretation Comments Glucose, Body Fluid 120 mg/dL (test code = 2344-0) ALLYN (test code = Absence of reference ALLYN) range indicates that normals have not been defined.Assay performance has not been validated for this type of specimen. Electronic Publications Specialist ID - [id number] [facility] CenterGlucose, body [id number] 15:45:42 Test Item Value Reference Range Interpretation Comments Glucose, Body Fluid 120 mg/dL (test code = 2344-0) ALLYN (test code = Absence of reference ALLYN) range indicates that normals have not been defined.Assay performance has not been validated for this type of specimen. Electronic Publications Specialist ID - [id number] [facility] CenterGLUCOSE, BODY [id number] 15:45:42 Test Item Value Reference Range Interpretation Comments GLUCOSE, BODY FLUID (BEAKER) (test 120 mg/dL code = 1528) Absence of reference range indicates that normals have not been defined.Assay performance has not been validated for this type of specimen.Electronic Publications Specialist ID - [id number] fluid cell count with [id number] 14:03:37 Test Item Value Reference Range Interpretation Comments Appearance (test code = Clear Clear 9335-1) Color (test code = Yellow Colorless, Straw A 6824-7) RBCs (test code = 68 See_Comment H [Automate d message] 88792-2) The system [employer] generated this result transmit britta reference range : <=1 /cu mm. The reference range was not used to interpret this result as normal/abnormal . Adjusted WBC Count 16 See_Comment H [Automat ed message] (test code = 43067-5) The sy stem which generated this result transmit britta reference range : <=5 /cu mm. The reference range was not used to interpret this result as normal/abnormal . Lining Cells (test code 0 See_Comment [Au tomated message] = 44865-3) The system [employer] generated this result transmit britta reference range : <=1 /cu mm. The reference range was not used to interpret this result as normal/abnormal . % Segs (test code = 13 % 10104-7) % Lymphs (test code = 13 % 44018-3) % Monos (test code = 74 % 34063-2) % Eos (test code = 0 % 03568-9) % Baso (test code = 0 % 59032-5) Container Body Fluid EDTA Tube (test code = 2873) Lab Interpretation Abnormal (test code = 14988-4) [facility] [id number] 14:03:37 Test Item Value Reference Range Interpretation Comments Appearance (test code = Clear Clear 9335-1) Color (test code = Yellow Colorless, Straw A 6824-7) RBCs (test code = 68 See_Comment H [Automate d message] 11513-3) The system [employer] generated this result transmit britta reference range : <=1 /cu mm. The reference range was not used to interpret this result as normal/abnormal . Adjusted WBC Count 16 See_Comment H [Automat ed message] (test code = 27392-5) The sy stem which generated this result transmit britta reference range : <=5 /cu mm. The reference range was not used to interpret this result as normal/abnormal . Lining Cells (test code 0 See_Comment [Au tomated message] = 65196-1) The system [employer] generated this result transmit britta reference range : <=1 /cu mm. The reference range was not used to interpret this result as normal/abnormal . % Segs (test code = 13 % 73849-3) % Lymphs (test code = 13 % 47142-3) % Monos (test code = 74 % 10131-3) % Eos (test code = 0 % 75872-4) % Baso (test code = 0 % 05252-8) Container Body Fluid EDTA Tube (test code = 2873) Lab Interpretation Abnormal (test code = 68691-4) [facility] with [id number] 14:03:37 Test Item Value Reference Range Interpretation Comments Appearance (test code = Clear Clear 9335-1) Color (test code = Yellow Colorless, Straw A 6824-7) RBCs (test code = 68 See_Comment H [Automate d message] 20700-4) The system [employer] generated this result transmit britta reference range : <=1 /cu mm. The reference range was not used to interpret this result as normal/abnormal . Adjusted WBC Count 16 See_Comment H [Automat ed message] (test code = 47421-5) The sy stem which generated this result transmit britta reference range : <=5 /cu mm. The reference range was not used to interpret this result as normal/abnormal . Lining Cells (test code 0 See_Comment [Au tomated message] = 23552-9) The system [employer] generated this result transmit britta reference range : <=1 /cu mm. The reference range was not used to interpret this result as normal/abnormal . % Segs (test code = 13 % 95182-6) % Lymphs (test code = 13 % 40381-6) % Monos (test code = 74 % 01607-9) % Eos (test code = 0 % 24935-6) % Baso (test code = 0 % 69623-6) Container Body Fluid EDTA Tube (test code = 2873) Lab Interpretation Abnormal (test code = 74276-2) [facility] with [id number] 14:03:37 Test Item Value Reference Range Interpretation Comments Appearance (test code = Clear Clear 9335-1) Color (test code = Yellow Colorless, Straw A 6824-7) RBCs (test code = 68 See_Comment H [Automate d message] 40498-3) The system [employer] generated this result transmit britta reference range : <=1 /cu mm. The reference range was not used to interpret this result as normal/abnormal . Adjusted WBC Count 16 See_Comment H [Automat ed message] (test code = 21314-5) The sy stem which generated this result transmit britta reference range : <=5 /cu mm. The reference range was not used to interpret this result as normal/abnormal . Adjusted lining 0 See_Comment [Automated message] cells/Others (test code The system which = 01613-7) generated this result transmit britta reference range : <=1 /cu mm. The reference range was not used to interpret this result as normal/abnormal . % Segs (test code = 13 % 22845-3) % Lymphs (test code = 13 % 77490-5) % Monos (test code = 74 % 23279-5) % Eos (test code = 0 % 64433-2) % Baso (test code = 0 % 71215-6) Container Body Fluid EDTA Tube (test code = 2873) Lab Interpretation Abnormal (test code = 53230-9) [facility] with [id number] 14:03:37 Test Item Value Reference Range Interpretation Comments Appearance (test code = Clear Clear 9335-1) Color (test code = Yellow Colorless, Straw A 6824-7) RBCs (test code = 68 See_Comment H [Automate d message] 83275-7) The system [employer] generated this result transmit britta reference range : <=1 /cu mm. The reference range was not used to interpret this result as normal/abnormal . Adjusted WBC Count 16 See_Comment H [Automat ed message] (test code = 89222-6) The sy stem which generated this result transmit britta reference range : <=5 /cu mm. The reference range was not used to interpret this result as normal/abnormal . Adjusted lining 0 See_Comment [Automated message] cells/Others (test code The system which = 63916-8) generated this result transmit britta reference range : <=1 /cu mm. The reference range was not used to interpret this result as normal/abnormal . % Segs (test code = 13 % 59630-3) % Lymphs (test code = 13 % 67626-2) % Monos (test code = 74 % 46061-9) % Eos (test code = 0 % 27818-7) % Baso (test code = 0 % 30020-5) Container Body Fluid EDTA Tube (test code = 2873) Lab Interpretation Abnormal (test code = 09679-7) [facility] WITH [id number] 14:03:37 Test Item Value Reference Range Interpretation [...] (test code = 2873) OSKAR TITER AND [id number] 10:13:44 Test Item Value Reference Range Interpretation [...] UA (test Clear code = 5767-9) Specific [place], 1.018 1.001-1.035 UA (test code = 5811-5) pH, UA (test code 5.0 5.0-8.0 = 5803-2) Protein, UA (test Negative Negative code = 82940-3) Glucose, UA (test Negative Negative code = 365) Ketones, UA (test Negative Negative code = 2514-8) Bilirubin, UA Negative Negative (test code = 47836-9) Blood, UA (test Negative Negative code = 96189-7) Nitrite, UA (test Negative Negative code = 5802-4) Leukocytes, UA Negative Negative (test code = 5799-2) Urobilinogen, UA 0.2 mg/dL 0.2-1.0 (test code = 90737-9) RBC, UA (test 1 See_Comment [Automated me ssage] code = 76024-7) The system [employer] generated this result transmit britta reference range : /HPF. The refer ence range was not u sed to interpret th is result as normal/abnormal . WBC, UA (test 1 See_Comment [Automated me ssage] code = 5821-4) The system [facility] generated this result transmit britta reference range : /HPF. The refer ence range was not u sed to interpret th is result as normal/abnormal . Bacteria, UA None Seen (test code = 00662-4) Squam Epithel, UA <1 See_Comment [Automate d message] (test code = The system [facility] 14878-2) generated this result transmit britta reference range : /HPF. The refer ence range was not u sed to interpret th is result as normal/abnormal . Crystals, Urine None Seen (test code = 73365-3) Specimen Source (test code = 2795) ALLYN (test code = Electronic Publications Specialist ID - ALLYN) [auto]Electronic Publications Specialist ID - tech [facility] w/Microscopic + Reflex to Culture 2022-02-10 09:31:30 Test Item Value Reference Range Interpretation Comments Color, UA (test Yellow code = 5778-6) Clarity, UA (test Clear code = 5767-9) Specific [place], 1.018 1.001-1.035 UA (test code = 5811-5) pH, UA (test code 5.0 5.0-8.0 = 5803-2) Protein, UA (test Negative Negative code = 42444-3) Glucose, UA (test Negative Negative code = 365) Ketones, UA (test Negative Negative code = 2514-8) Bilirubin, UA Negative Negative (test code = 82677-0) Blood, UA (test Negative Negative code = 88941-2) Nitrite, UA (test Negative Negative code = 5802-4) Leukocytes, UA Negative Negative (test code = 5799-2) Urobilinogen, UA 0.2 mg/dL 0.2-1.0 (test code = 16471-6) RBC, UA (test 1 See_Comment [Automated me ssage] code = 24113-1) The system [employer] generated this result transmit britta reference range : /HPF. The refer ence range was not u sed to interpret th is result as normal/abnormal . WBC, UA (test 1 See_Comment [Automated me ssage] code = 5821-4) The system [facility] generated this result transmit britta reference range : /HPF. The refer ence range was not u sed to interpret th is result as normal/abnormal . Bacteria, UA None Seen (test code = 76700-0) Squam Epithel, UA <1 See_Comment [Automate d message] (test code = The system [facility] 73335-0) generated this result transmit britta reference range : /HPF. The refer ence range was not u sed to interpret th is result as normal/abnormal . Crystals, Urine None Seen (test code = 91812-1) Specimen Source (test code = 2795) ALLYN (test code = Electronic Publications Specialist ID - ALLYN) [auto]Electronic Publications Specialist ID - tech [facility] w/Microscopic + Reflex to Culture 2022-02-10 09:31:30 Test Item Value Reference Range Interpretation Comments Color, UA (test Yellow code = 5778-6) Clarity, UA (test Clear code = 5767-9) Specific [place], 1.018 1.001-1.035 UA (test code = 5811-5) pH, UA (test code 5.0 5.0-8.0 = 5803-2) Protein, UA (test Negative Negative code = 89369-1) Glucose, UA (test Negative Negative code = 365) Ketones, UA (test Negative Negative code = 2514-8) Bilirubin, UA Negative Negative (test code = 99142-8) Blood, UA (test Negative Negative code = 60861-0) Nitrite, UA (test Negative Negative code = 5802-4) Leukocytes, UA Negative Negative (test code = 5799-2) Urobilinogen, UA 0.2 mg/dL 0.2-1.0 (test code = 03768-3) RBC, UA (test 1 See_Comment [Automated me ssage] code = 62933-4) The system [facility] generated this result transmit britta reference range : /HPF. The refer ence range was not u sed to interpret th is result as normal/abnormal . WBC, UA (test 1 See_Comment [Automated me ssage] code = 5821-4) The system [facility] generated this result transmit britta reference range : /HPF. The refer ence range was not u sed to interpret th is result as normal/abnormal . Bacteria, UA None Seen (test code = 85210-7) Squam Epithel, UA <1 See_Comment [Automate d message] (test code = The system [facility] h 6[address]-2) generated this result transmit britta reference range : /HPF. The refer ence range was not u sed to interpret th is result as normal/abnormal . Crystals, Urine None Seen (test code = 24646-4) Specimen Source (test code = 2795) ALLYN (test code = Electronic Publications Specialist ID - ALLYN) [auto]Electronic Publications Specialist ID - tech [facility] w/Microscopic + Reflex to Culture 2022-02-10 09:31:30 Test Item Value Reference Range Interpretation Comments Color, UA (test Yellow code = 5778-6) Clarity, UA (test Clear code = 5767-9) Specific [place], 1.018 1.001-1.035 UA (test code = 5811-5) pH, UA (test code 5.0 5.0-8.0 = 5803-2) Protein, UA (test Negative Negative code = 95888-2) Glucose, UA (test Negative Negative code = 365) Ketones, UA (test Negative Negative code = 2514-8) Bilirubin, UA Negative Negative (test code = 04888-4) Blood, UA (test Negative Negative code = 90957-9) Nitrite, UA (test Negative Negative code = 5802-4) Leukocytes, UA Negative Negative (test code = 5799-2) Urobilinogen, UA 0.2 mg/dL 0.2-1.0 (test code = 18517-2) RBC, UA (test 1 See_Comment [Automated me ssage] code = 56064-7) The system [facility] generated this result transmit britta reference range : /HPF. The refer ence range was not u sed to interpret th is result as normal/abnormal . WBC, UA (test 1 See_Comment [Automated me ssage] code = 5821-4) The system [facility] generated this result transmit britta reference range : /HPF. The refer ence range was not u sed to interpret th is result as normal/abnormal . Bacteria, UA None Seen (test code = 96173-3) Squam Epithel, UA See_Comment [Automate d message] (test code = The system [facility] [employer] 11125-2) generated this result transmit britta reference range : /HPF. The refer ence range was not u sed to interpret th is result as normal/abnormal . Crystals, Urine None Seen (test code = 41470-0) Specimen Source (test code = 2795) ALLYN (test code = Electronic Publications Specialist ID - ALLYN) [auto]Electronic Publications Specialist ID - tech [facility] w/Microscopic + Reflex to Culture 2022-02-10 09:31:30 Test Item Value Reference Range Interpretation Comments Color, UA (test Yellow code = 5778-6) Clarity, UA (test Clear code = 5767-9) Specific [place], 1.018 1.001-1.035 UA (test code = 5811-5) pH, UA (test code 5.0 5.0-8.0 = 5803-2) Protein, UA (test Negative Negative code = 17421-0) Glucose, UA (test Negative Negative code = 365) Ketones, UA (test Negative Negative code = 2514-8) Bilirubin, UA Negative Negative (test code = 68028-2) Blood, UA (test Negative Negative code = 52733-1) Nitrite, UA (test Negative Negative code = 5802-4) Leukocytes, UA Negative Negative (test code = 5799-2) Urobilinogen, UA 0.2 mg/dL 0.2-1.0 (test code = 23714-3) RBC, UA (test 1 See_Comment [Automated me ssage] code = 63266-5) The system [facility] generated this result transmit britta reference range : /HPF. The refer ence range was not u sed to interpret th is result as normal/abnormal . WBC, UA (test 1 See_Comment [Automated me ssage] code = 5821-4) The system [facility] generated this result transmit britta reference range : /HPF. The refer ence range was not u sed to interpret th is result as normal/abnormal . Bacteria, UA None Seen (test code = 66628-0) Squam Epithel, UA See_Comment [Automate d message] (test code = The system [facility] [employer] 94741-3) generated this result transmit britta reference range : /HPF. The refer ence range was not u sed to interpret th is result as normal/abnormal . Crystals, Urine None Seen (test code = 11033-9) Specimen Source (test code = 2795) ALLYN (test code = Electronic Publications Specialist ID - ALLYN) [auto]Electronic Publications Specialist ID - tech [facility] UR[facility] [id number] 09:31:30 Test Item Value Reference Range Interpretation [...] = 1521) SOURCE(BEAKER) (test code = 2795) Electronic Publications Specialist ID - [auto]Electronic Publications Specialist ID - techRAD, ABDOMEN/KUB, 1 VIEW [id number] 04:58:00ERIC HURT MDReason for exam:->Enteric tube placement verificationCH[facility] ST [facility] : 1955 Sex: MFINAL REPORT EXAM/TECHNIQUE: RAD, ABDOMEN/KUB, 1 VIEW AP INDICATION: Enteric tube COMPARISON: None. FINDINGS: Gastric tube and sidehole terminate in the expected location of the stomach. Small bowel dilatation. Impression: Gastric tube and sidehole terminate in the expected location of the stomach. Signed: Mc Jnoes MDReport Verified Date/Time: 02/10/2022 04:58:13 CT, ABDOMEN 2022-02-09 21:06:00ERIC HURT MDUnlisted Reason for Exam - Click Yes and Enter Reason Below->NoIs this for enterography?->NoWill this procedure require oral contrast?->No [facility] 1955 Sex: [...] acute cholecystitis, consider ultrasound. Signed: Mc Jones [facility] Verified Date/Time: 02/09/2022 21:06:52 SARS-COV2/RT-PCR ([facility])2022-02-09 20:27:47 Test Item Value Reference Range Interpretation Comments SARS-COV2/RT-PCR Negative Negative The SARS-Co V-2 target (test code = nucleic acids a re not 7967639) detected in thi s specimen. Negative result [...] revoked sooner. Fact Sheet for Healthcare Providers: https://www.[employer] m/Documents/Xpert%20Xpress%20SARS%20CoV-2/Fact%20Sheets/302-3802%91SVLQ-QPR-5%20 HEALTHCARE%20PROVIDERS%20FACT%20SHEET.pdf Fact Sheet for Healthcare Patients: https://www.[employer]/Documents/Xpert%20Xp ress%20SARS%20CoV-2/Fact%20Sheets/3023801%34QJRB-DFD-5%20PATIENT%20FACT%20SHEET .pdfCOMPREHENSIVE METABOLIC [id number] 20:07:42 Test Item Value Reference Range Interpretation [...] 1092) DATA TO CALCULA TE ESTIMATED GFR. Electronic Publications Specialist ID Portillo FRANKLIN [id number] 19:59:54 Test Item Value Reference Range Interpretation Comments LIPASE (BEAKER) (test code = 749) 45 U/L 8-78 Electronic Publications Specialist ID Portillo FRANKLIN LPT/[id number] 19:40:32 Test Item Value Reference Range Interpretation [...] for patients with mechanical heart valves.LACTIC ACID, [id number] 19:39:50 Test Item Value Reference Range Interpretation Comments LACTATE BLOOD VENOUS 1.81 mmol/L 0.50-2.20 Specime n slightly (2) (BEAKER) (test hemolyzed code = 7871) Electronic Publications Specialist ID Portillo FRANKLIN LCBC W/PLT COUNT & AUTO [id number] 19:28:09 Test Item Value Reference Range Interpretation [...] 0-1 PERCENT (BEAKER) (test code = 2801) [id number] 19:22:34 Test Item Value Reference Range Interpretation Comments AMMONIA (BEAKER) 26 mol/L 18-72 Specimen mo derately (test code = 348) hemolyzed Electronic Publications Specialist ID - PIAYA LHEPATITIS C [id number] 15:36:09 Test Item Value Reference Range Interpretation Comments HEPATITIS C ANTIBODY (BEAKER) (test Reactive Nonreactive A code = 367) Electronic Publications Specialist ID - ADMINHEPATITIS A ANTIBODY, [id number] 15:22:17 Test Item Value Reference Range Interpretation Comments HEPATITIS A IGG ANTIBODY (BEAKER) Nonreactive Nonreactive (test code = 2797) Electronic Publications Specialist ID - PIHPRDNJRJNOIEMTAZ2165-00-02 15:05:07 Test Item Value Reference Range Interpretation Comments PROCALCITONIN (BEAKER) (test code 0.15 ng/mL <0.05 H = 3036) SEPSIS RISK (ng/mL)Low: 0.05-0.50Intermediate: 0.51-2.00High: >=2.01 COMPREHENSIVE METABOLIC [id number] 14:57:26 Test Item Value Reference Range Interpretation [...] 1092) DATA TO CALCULA TE ESTIMATED GFR. Electronic Publications Specialist ID - BQDTREDBTQ-0-[id number] 14:48:46 Test Item Value Reference Range Interpretation Comments ALPHA-1 ANTITRYPSIN (BEAKER) 205.20 mg/dL 90.00-200.00 H (test code = 502) Electronic Publications Specialist ID - ADMINBILIRUBIN, [id number] 14:48:45 Test Item Value Reference Range Interpretation Comments BILIRUBIN DIRECT (BEAKER) (test 0.6 mg/dL 0.1-0.5 H code = 706) Electronic Publications Specialist ID - ADMINPROTHROMBIN TIME/[id number] 14:46:41 Test Item Value Reference Range Interpretation Comments PROTIME (BEAKER) 15.7 seconds 11.9-14.2 H (test code = 759) INR (BEAKER) (test 1.27 See_Comment [Automat ed message] code = 370) The system [employer] generated this result transmitted ref erence range: <=5.90. The reference range was not used to int erpret this result as normal/abnormal . RECOMMENDED COUMADIN/WARFARIN INR THERAPY RANGESSTANDARD DOSE: 2.0 - 3.0 Includes: PROPHYLAXIS for venous thrombosis, systemic embolization; TREATMENT for venous thrombosis and/or pulmonary embolus.HIGH RISK: Target INR is 2.5-3.5 for patients with mechanical heart valves.LACTIC ACID, [id number] 14:36:58 Test Item Value Reference Range Interpretation Comments LACTATE BLOOD VENOUS 1.59 mmol/L 0.50-2.20 Specime n slightly (2) (BEAKER) (test hemolyzed code = 6122) Electronic Publications Specialist ID - ADMINCBC W/PLT COUNT & AUTO [id number] 14:24:37 Test Item Value Reference Range Interpretation [...] 0-1 PERCENT (BEAKER) (test code = 2801) [id number] 12:18:00 Test Item Value Reference Range Interpretation Comments GLUBED (test code = GLUBED) 128 mg/dL 70-110 H VANCOMYCIN [id number] 08:39:00 Test Item Value Reference Range Interpretation Comments VANCOMYCIN TROUGH 30.4 mcg/mL 10-20 H Other dise ase (test code = VANCT) associat ed reference ranges: 10 - 15 mcg/mL Cellulit is, urinary tract infection 15 - 20 mcg/mL Bacterem ia, infective endocarditis, osteomyelitis, meningitis, pneumonia, romero re skin/soft tissu e infection, spin al abscess Specimen comments: PRIOR TO AM DOSE OF VANCOMYCINComments to Medical Management Specialist: DRAW LEVEL THEN GIVE VANCDOSECBC W/AUTO [id number] 05:02:00 Test Item Value Reference Range Interpretation [...] X10 3uL 0.00-0.01 N NRBC#) BASIC METABOLIC [id number] 05:01:00 Test Item Value Reference Range Interpretation [...] CA) 7.5 mg/dl 8.0-10.5 L COMPREHENSIVE METABOLIC [id number] 06:40:00 Test Item Value Reference Range Interpretation [...] 167 Units/L 50.0-136.0 H code = ALKP) [id number] 06:40:00 Test Item Value Reference Range Interpretation Comments MAGNESIUM (test code = MAG) 2.0 mg/dl 1.8-2.4 N [id number] 06:25:00 Test Item Value Reference Range Interpretation Comments AMMONIA (test code = AMM) 27.0 MCMOL/L 11.0-32.0 N CBC W/AUTO [id number] 06:22:00 Test Item Value Reference Range Interpretation [...] = 0.00 X10 3uL 0.00-0.01 N NRBC#) [id number] 15:02:00 Test Item Value Reference Range Interpretation Comments SURGICAL (test code = SR) R UN DATE: 10/24/21 [facility] - Lab PAGE 1 RUN TIME: 1502 Specimen Inquiry RUN USER: INTERFACE P ATIENT: EDDI JONES LOC: ICU U #: [id number] AGE/SX: 66/M ROOM: [facility] RE10/11/21REG DR: Mary Kidd MD : 57 BED: 1 DIS: STATUS: ADM IN TLOC: SPEC #: [id number] RECD: 10/18/21 STATUS: CAROLANN REQ #: [id number] AYDIN: 10/18/21- SUBM DR: Mary Kidd MD ENTERED: 10/18/21 SP TYPE: SURGICAL OTHR DR: No Primary or Family Physician Self Referred Baltazar Henson MD, Kodlipet MD Malhotra, Advitya MD Moinuddeen, Khaja MDORDERED: GM LEVEL 4, ANATOMIC SPEC COPIES TO: No Primary or Family Physician Self Referred Baltazar Henson MD [address] [place] [phone] Ashely Khan MD [address] [place] [address] Matty Gallegos MD [address] [place] [address] OTHER PHONE [phone] (CELL) Jocelyn Sunshine MD [address] [place] [address] Mary Kidd MD [address] [place] [phone] [email or web address] PROCEDURES: GM LEVEL 4 (10/24/21-150) TISSUES: PLEURA, NOS - RIGHT PLEURA CONTINUED ON NEXT PAGE R UN DATE: 10/24/21 [facility] - Lab PAGE 2 RUN TIME: 1502 Specimen Inquiry RUN USER: INTERFACE S PEC #: [id number] PATIENT: JONES,EDDI Hong #[id number] (Continued) CLINICAL HISTORY SAME FINAL DIAGNOSIS Right [...] submitted in 2 cassettes. Technical component performed [facility],[address] [place] [address] Unless gross only, the diagnosis is based [...] of this case is performed at the [facility], [address] [place] [address] (CLIA# [id number]). MICROSCOPIC DESCRIPTION A microscopic examination was performed. CLINICAL INFORMATION RIGHT EMPYEMER ------- Signed SIGNATURE ON FILE Bal Michelle Hal 10/24/21 1502 END OF REPORT PROTHROMBIN [id number] 14:54:00 Test Item Value Reference Range Interpretation Comments PROTHROMBIN TIME 16.7 SECONDS 9.9-12.8 H PATIENT (test code = PTP) INTERNATIONAL NORMAL 1.4 0.89-1.14 H THE INR IS TO BE USED RATIO (test code = ONLY FOR MONITORING INR) ORAL ANTICOAGULANTTH ERAPY. THE FOLLOWING A RE SUGGESTED RANGE S FROM [facility] COL LEGE OF CHEST PHYSICIANS:JEANETTE CATION [...] ANTIBODIES 2.5 - 3.5 - US ABDOMEN [id number] 12:41:00 [facility] : 1955 Sex: M FAX: Mary Valente MD [phone] [place]: EM St: ADM Name: EDDI JONES [facility] : 1955 Age/S: 66/M [address] [facility] Unit #: [id number] Loc: [address] Phys: [place] [address] Acct: [id number] Dis Date: Status: ADM IN PHONE #: [phone] Exam Date: 10/24/2021 1141 FAX #: [phone] Reason: ascitis EXAMS: CPT CODE: [id number] US ABDOMEN LTD 93628 Dictation location: U19. LIMITED ABDOMINAL ULTRASOUND HISTORY: Ascites, evaluate for paracentesis. IMPRESSION: Ultrasound images show a small amount of ascites greatest in the left lower quadrant. The ascites appears simple. IMPRESSION: Small amount of ascites, not significant enough for a therapeutic paracentesis. at 1241 Reported and signed by: Ella Fonseca M.D. CC: Mary Kidd MD Technologist: KAITLIN VILLARREAL Trnkingrd Date/Time/By: 10/24/2021 (1241) : By: [email or web address] PAGE 1 Signed Report FAX: Mary Valente MD [phone] [place]: EMSt: ADM -- Name: EDDI JONES [facility] : 1955 Age/S: 66/M [address] Unit #: [id number]: [address] [place], [place] Phys: [place] [address] Acct: [id number] Dis Date: Status: ADM IN PHONE #: [phone] Exam Date: 10/24/2021 1141 FAX #: [phone] Reason: ascitis EXAMS: CPT CODE: [id number] US ABDOMEN LTD 61631 (Continued) Orig Print D/T: S: 10/24/2021 (1244) PAGE 2 Signed ReportBASIC METABOLIC [id number] 06:51:00 Test Item Value Reference Range Interpretation [...] CA) 7.3 mg/dl 8.0-10.5 L CBC W/AUTO [id number] 06:29:00 Test Item Value Reference Range Interpretation [...] X10 3uL 0.00-0.01 H NRBC#) CBC W/AUTO [id number] 09:59:00 Test Item Value Reference Range Interpretation [...] code = NRBC#) - XR CHEST 1 [id number] 07:31:00 [facility] : 1955 Sex: M FAX: Baltazar Sunshine MD [phone] [place]: St: [facility] FAX: Mary Valente MD [phone] Name: EDDI JONES [facility] : 1955 Age/S: 66/M [address] [facility] Unit #: [id number] [facility]: [facility] [place], [place]: [place] [address] Acct: [id number] Dis Date: Status: ADM IN PHONE #: [phone] Exam Date: 10/23/2021 0556 FAX #: [phone] Reason: sob EXAMS: CPT CODE: [id number] XR CHEST1 V 74933 Location Code: C3 CHEST AP HISTORY: Dyspnea [...] 1 Signed Report FAX: Baltazar Sunshine MD [phone] [place]: St: [facility] FAX: Mary Valente MD [phone] Name: EDDI JONES [facility] : 1955 Age/S: 66/M [address] [facility] Unit #: [id number] Loc: E.IC03 [place], [place] Phys: Baltazar [place] [address]Awbl: [id number] Dis Date: Status: ADM IN PHONE #: [phone] Exam Date: 10/23/2021 0556 FAX #: [phone] Reason: sob EXAMS: CPT CODE: [id number] XR CHEST 1 V 69094 (Continued) Trnscrd Date/Time/By: 10/23/2021 (0731) : By: [...] mg/dl 8.0-10.5 L - XR CHEST 1 [id number] 07:53:00 [facility] : 1955 Sex: M FAX: Baltazar Sunshine MD [phone] [place]: St: [facility] FAX: Mary Valente MD [phone] Name: EDDI JONES [facility] : 1955 Age/S: 66/M [address] [facility] Unit #: [id number] Loc: MIC[facility]EL [place], [place]: [place] [address] Acct: [id number] Dis Date: Status: ADM IN PHONE #: [phone] Exam Date: 10/22/2021 0705 FAX #: [phone] Reason: sob EXAMS: CPT CODE: [id number] XR CHEST 1 V 71208 Location Code: C3 CHEST AP HISTORY: Dyspnea [...] MD; Mary Kidd MD Technologist: HYUN TAVERAS Trnarrd Date/Time/By: 10/22/2021 (0753) : By: [email or web address] PAGE 1 Signed ReportFAX: Baltazar Sunshine MD [phone] [place]: St: ADM FAX: Mary Valente MD [phone] ------- Name: EDDI JONES [facility] : 1955 Age/S: 66/M [address] [place] [facility] Unit #: [id number] Loc: [facility]03 [place], [place]: [place] [address] Acct: [id number] Dis Date: Status: ADM IN PHONE #: [phone] Exam Date: 10/22/2021704 FAX #: [phone] Reason: sob EXAMS: CPT CODE: [id number] XR CHEST 1 V 94870 (Continued) Orig Print D/T: S: 10/22/2021 (0757) PAGE 2 Signed [id number] 06:21:00 Test Item Value Reference Range Interpretation Comments AMMONIA (test code = AMM) 35.4 MCMOL/L 11.0-32.0 HH BASIC METABOLIC [id number] 06:14:00 Test Item Value Reference Range Interpretation [...] CA) 7.6 mg/dl 8.0-10.5 L CBC W/AUTO [id number] 12:53:00 Test Item Value Reference Range Interpretation [...] X10 3uL 0.00-0.01 N code = NRBC#) [id number] 12:23:00 Test Item Value Reference Range Interpretation Comments AMMONIA (test code = AMM) 51.1 MCMOL/L 11.0-32.0 HH - XR CHEST 1 [id number] 06:41:00 [facility] : 1955 Sex: M FAX: Baltazar Sunshine MD [phone] [place]: St: ADM FAX: Mary Valente MD [phone] Name: EDDI JONES [facility] : 1955 Age/S: 66/M [address] [facility] Unit #: [id number] Loc: E.IC03 [place], [place]: [place] [address] Acct: [id number] Dis Date: Status: ADM IN PHONE #: [phone] Exam Date: 10/21/2021524 FAX #: [phone] Reason: sob EXAMS: CPT CODE: [id number] XR CHEST 1V 87163 EXAMINATION: - XR CHEST 1 V HISTORY: [...] MD; Mary Kidd MD Technologist: ANALIA MILLER [facility] Date/Time/By: 10/21/2021 (0641) : By: [email or web address] PAGE 1 Signed Report FAX: Baltazar Sunshine MD [phone] [place]: St:ADM FAX: Mary Valente MD [phone] Name: EDDI JONES [facility] : 1955 Age/S: 66/M [address] [facility] Unit #: [id number] Loc: [address] [place]: [place] [address] Acct: [id number] Dis Date: Status: ADM IN PHONE #: [phone] Exam Date: 10/21/2021524 FAX #: [phone] Reason: sob EXAMS: CPT CODE: [id number] XR CHEST 1 V 06101 (Continued) Orig Print D/T: S: 10/21/2021 (0644) PAGE 2 Signed ReportBASIC METABOLIC [id number] 06:35:00 Test Item Value Reference Range Interpretation [...] CA) 7.2 mg/dl 8.0-10.5 L ARTERIAL BLOOD [id number] 16:25:00 Test Item Value Reference Range Interpretation [...] = METHGB) <2.0POTENTIALLY TOXIC >20.0 ARTERIAL BLOOD [id number] 16:23:00 Test Item Value Reference Range Interpretation [...] = METHGB) <2.0POTENTIALLY TOXIC >20.0 CBC W/AUTO [id number] 15:12:00 Test Item Value Reference Range Interpretation [...] 3uL 0.00-0.01 N code = NRBC#) VANCOMYCIN [id number] 08:13:00 Test Item Value Reference Range Interpretation Comments VANCOMYCIN TROUGH 14.0 mcg/mL 10-20 N Other dise ase (test code = VANCT) associat ed reference ranges: 10 - 15 mcg/mL Cellulit is, urinary tract infection 15 - 20 mcg/mL Bacterem ia, infective endocarditis, osteomyelitis, meningitis, pneumonia, romero re skin/soft tissu e infection, spin al abscess Specimen comments: DRAW PRIOR TO AM VANCOMYCIN DOSEComments to Medical Management Specialist: DRAW PRIOR TO AM VANCOMYCIN DOSE- XR CHEST 1 [id number] 07:15:00 [facility] : 1955 Sex: M FAX: Baltazar Sunshine MD [phone] [place]: St: [facility] FAX: Mary Valente MD [phone] Name: EDDI JONES [facility] : 1955 Age/S: 66/M [address] [facility] Unit #: [id number] Loc: E.IC03 [place], [place]: [place] [address] Acct: [id number] Dis Date: Status: ADM IN PHONE #: [phone] Exam Date: 10/20/202146 FAX #: [phone] Reason: sob EXAMS: CPT CODE: [id number] XR CHEST 1 V 76183 EXAMINATION: - XR CHEST 1 V HISTORY: [...] ADAME Trnscrd Date/Time/By: 10/20/2021 (0715) : By: [email or web address] PAGE 1 Signed Report FAX: Baltazar Sunshine MD [phone] [place]: St: ADM FAX: Mary Valente MD [phone] Name: EDDI JONES [facility] : 1955 Age/S:66/M [address] [facility] Unit #: [id number] Loc: [address] [place]: [place] [address] Acct: [id number] Dis Date: Status: ADM IN PHONE #: [phone] Exam Date: 10/20/202146 FAX #: [phone] Reason: sob EXAMS: CPT CODE: [id number] XR CHEST 1 V 88094 (Continued) Orig Print D/T: S: 10/20/2021 (18) PAGE 2 Signed [id number] 06:12:00 Test Item Value Reference Range Interpretation Comments MAGNESIUM (test code = MAG) 2.1 mg/dl 1.8-2.4 N BASIC METABOLIC [id number] 06:11:00 Test Item Value Reference Range Interpretation [...] CA) 6.8 mg/dl 8.0-10.5 L ARTERIAL BLOOD [id number] 14:30:00 Test Item Value Reference Range Interpretation [...] METHGB) <2.0POTENTIALLY TOXIC >20.0 HIV 12 AB [id number] 06:53:00 Test Item Value Reference Range Interpretation Comments AB HIV 1 2 (test code = [id number]) NON REACTIVE NONREACTIVE AG HIV1 P24 (test code = NEGATIVE NEGATIVE [id number]) - XR CHEST 1 [id number] 06:49:00 [facility] : 1955 Sex: M FAX: Baltazar Sunshine MD [phone] [place]: St: [facility] FAX: Mary Valente MD [phone] Name: EDDI JONES [facility] : 1955 Age/S: 66/M [address] [facility] Unit #: [id number] Loc: E.IC03 [place], [place]: [place] [address] Acct: [id number] Dis Date: Status: ADM IN PHONE #: [phone] Exam Date: 10/19/2021628 FAX #: [phone] Reason: sob EXAMS: CPT CODE: [id number] XR CHEST 1 V 76421 EXAMINATION: - XR CHEST 1 V HISTORY: [...] Mary Kidd MD Technologist: MARY LOU LAMAS [facility] Date/Time/By: 10/19/2021 (0649) : By: [email or web address] PAGE 1 Signed Report FAX:Baltazar Sunshine MD [phone] [place]: St: [facility] FAX: Mary Valente MD [phone] Name: EDDI JONES [facility] : 1955 Age/S: 66/M [address] [facility] Unit #: [id number] Loc: [address] Phys: [place] [address] Acct: [id number] Dis Date: Status: ADM IN PHONE #: [phone] Exam Date: 10/19/2021628 FAX #: [phone] Reason: sob EXAMS: CPT CODE: [id number] XR CHEST 1 V 30321 (Continued) Orig Print D/T: S: 10/19/2021 (0704) PAGE 2 Signed ReportBASIC METABOLIC [id number] 06:33:00 Test Item Value Reference Range Interpretation [...] CA) 6.9 mg/dl 8.0-10.5 L CBC W/AUTO [id number] 06:10:00 Test Item Value Reference Range Interpretation [...] 0.00 X10 3uL 0.00-0.01 N NRBC#) LACTIC [id number] 02:21:00 Test Item Value Reference Range Interpretation Comments LACTIC ACID (test code = LACT) 1.9 MMOL/L 0.4-2.0 N LACTIC [id number] 00:13:00 Test Item Value Reference Range Interpretation Comments LACTIC ACID (test code = LACT) 2.2 MMOL/L 0.4-2.0 H LACTIC ACID [id number] 22:04:00 Test Item Value Reference Range Interpretation Comments LACTIC ACID REPEAT (test code = 2.5 mmol/L 0.4-2.0 H LACTR) LACTIC [id number] 16:32:00 Test Item Value Reference Range Interpretation Comments LACTIC ACID (test code = LACT) 3.3 MMOL/L 0.4-2.0 H [id number] 16:08:00 Test Item Value Reference Range Interpretation Comments HEMOGLOBIN (test code = HGB) 9.8 gm/dL 13.0-17.0 L ARTERIAL BLOOD [id number] 10:36:00 Test Item Value Reference Range Interpretation [...] <2.0POTENTIALLY TOXIC >20.0 - XR ABDOMEN 1 [id number] 10:30:00 [facility] : 1955 Sex: M FAX: Mary Valente MD [phone] [place]: St: ADM FAX: Vic Petersen [phone] ----- Name: EDDI JONES [facility] : 1955 Age/S: 66/M [address] [facility] Unit #: [id number] Loc: [address] Phys: [place] [address] Acct: [id number] Dis Date: Status: ADM IN ONE #: [phone] Exam Date: 10/18/2021 1027 FAX #: [phone] Reason: DIMINISHED BOWEL SOUNDS EXAMS: CPT CODE: [id number] XR ABDOMEN 1 V 99524 Exam: Diminished bowel sounds. Abdomen, single view. [...] Mary Kidd MD; Vivien Parada MD Technologist: Kaleb SANON Trnscrd Date/Time/By: 10/18/2021 (1030) : By: [email or web address] PAGE 1 Signed Report FAX: Mary Sarkar MD [phone] [place]: St: ADM FAX: Vic Petersen [phone] Name: EDDI JONES Hal [facility] : 1955 Age/S: 66/M [address] [facility] Unit #: [id number] Loc: [address] [place]: [place] [address] Acct: [id number] Dis Date: Status: ADM IN PHONE #: [phone] Exam Date: 10/18/2021 1027 FAX #: [phone] Reason: DIMINISHED BOWEL SOUNDS EXAMS:CPT CODE: [id number] XR ABDOMEN 1 V 30256 (Continued) Orig Print D/T: S: 10/18/2021 (1032) PAGE 2 Signed Report- XR CHEST 1 [id number] 08:37:00 [facility] : 1955 Sex: M FAX: Baltazar Sunshine MD [phone] [place]: St: ADM FAX: Mary Valente MD [phone] Name: EDDI JONES [facility] : 1955 Age/S: 66/M [address] [facility] Unit #: [id number] Loc: EIC03 [place], [place]: [place] [address] Acct: [id number] Dis Date: Status: ADM IN PHONE #: [phone] Exam Date: 10/18/2021823 FAX #: [phone] Reason: sob EXAMS: CPT CODE: [id number] XR CHEST 1V 98276 EXAMINATION: - XR CHEST 1 V HISTORY: Shortness of breath COMPARISON: Chest x-ray performed the previous day LOCATION CODE: C3 FINDINGS: Single frontal view of the chest is submitted for evaluation. Life support apparatus is unchanged. Right-sided pneumothorax is less apparent on today's studyas the pneumothorax cavity appears to have largely filled with fluid compared to the prior exam. Left lung remains grossly clear, and no new abnormalities are identified. IMPRESSION: Right-sided pneumothorax appears to have become largely fluid-filled since the prior study No other significant change at 0837 Reported and signed by: Ana Cristina Mirza CC: Baltazar Henson MD; Mary Kidd MD Technologist: KEELY ADAME Trnarrd Date/Time/By: 10/18/2021 (0837) : By: [email or web address] PAGE 1 Signed Report FAX: Baltazar Sunshine MD [phone] [place]: St: [facility] FAX: Mary Valente MD [phone] Name: EDDI JONES [facility] : 1955 Age/S: 66/M [address] [place] [employer] Unit #: [id number] [facility]: [facility] [place], [place]: [place] [address] Acct: [id number] Dis Date: Status: ADM IN PHONE #: [phone] Exam Date: 10/18/2021823 FAX #: [phone] Reason: sob EXAMS: CPT CODE: [id number] XR CHEST 1 V 08115 (Continued) Orig Print D/T: S: (0840) PAGE 2 Signed ReportCBC W/MANUAL [id number] 06:04:00 Test Item Value Reference Range Interpretation [...] PLATELET MORPHOLOGY (test code NORMAL = PLTMORPH) [id number] 05:28:00 Test Item Value Reference Range Interpretation Comments GLUBED (test code = GLUBED) 132 mg/dL 70-110 H COMPREHENSIVE METABOLIC [id number] 05:12:00 Test Item Value Reference Range Interpretation [...] 75 Units/L 50.0-136.0 N code = ALKP) [id number] 05:12:00 Test Item Value Reference Range Interpretation Comments MAGNESIUM (test code = MAG) 1.6 mg/dl 1.8-2.4 L [id number] 23:28:00 Test Item Value Reference Range Interpretation Comments GLUBED (test code = GLUBED) 119 mg/dL 70-110 H - XR CHEST 1 [id number] 17:29:00 [facility] : 1955 Sex: M FAX: Baltaazr Sunshine MD [phone] [place]: St: [facility] FAX: Mary Valente MD [phone] Name: EDDI JONES [facility] : 1955 Age/S: 66/M [address] [facility] Unit #: [id number] Loc: [address] Phys: [place] [address] Acct: [id number] Dis Date: Status: ADM IN PHONE #: [phone] Exam Date: 10/17/2021 172 FAX #: [phone] Reason: POST CHEST TUBE INSERTION EXAMS: CPT CODE: [id number] XR CHEST 1 V 75052 CLINICAL HISTORY: POST CHEST TUBE INSERTION. LOCATION: [...] Mary Kidd MD Technologist: MOLLY ARMSTRONG Trnscrd Thomas ate/Time/By: 10/17/2021 (7875) : By: [email or web address] PAGE 1 Signed Report FAX: Baltazar Sunshine MD [phone] [place]: St: ADM FAX: Mary Valente MD [phone] Name: EDDI JONES [facility] : 1955 Age/S:66/M [address] [facility] Unit #: [id number] Loc: E.[address] [place], [place] Phys: Baltazar Henson [facility] [address] Acct: [id number] Dis Date: Status: ADM IN PHONE #: [phone] Exam Date: 10/17/20211721 FAX #: [phone] Reason: POST CHEST TUBE INSERTION EXAMS: CPT CODE: [id number] XR CHEST 1 V 75987 (Continued) Orig Print D/T: S: 10/17/2021 (1732) PAGE 2 Signed ReportCoronavirus 2018 nCoV [id number] 10:08:00 Test Item Value Reference Range Interpretation Comments Coronavirus 2019 Negative NEGATIVE Negative re sults should be nCoV Bedside (test treated a s presumptive and code = ifinconsistent with [id number]) clinical signs and symptoms, or ne cessaryfor patient managem ent, should be tested with an alternativemole cular assay. Negative result s do not preclude PAGA-RqA-8fyrwm tion and should not be u sed as the sole basis forp atient management deci sions. Negative result s should beconsidered in the context of a patient's recent exposures,histo ry, presence of clinical sig ns and symptoms consis tentwith COVID-19. REJECTED/RECEIVE SWAB AFTER ONE HOUR OF COLLECTION/ E.LAB.KKP1 10/17/21 0930.NOTIFIED [place]..COMPREHENSIVE METABOLIC [id number] 06:24:00 Test Item Value Reference Range Interpretation [...] 102 Units/L 50.0-136.0 N code = ALKP) [id number] 06:24:00 Test Item Value Reference Range Interpretation Comments MAGNESIUM (test code = MAG) 1.5 mg/dl 1.8-2.4 L PROTHROMBIN [id number] 06:09:00 Test Item Value Reference Range Interpretation Comments PROTHROMBIN TIME 18.1 SECONDS 9.9-12.8 H PATIENT (test code = PTP) INTERNATIONAL NORMAL 1.5 0.89-1.14 H THE INR IS TO BE USED RATIO (test code = ONLY FOR MONITORING INR) ORAL ANTICOAGULANTTH ERAPY. THE FOLLOWING A RE SUGGESTED RANGE S FROM [facility]:JEANETTE CATION INR VALUEPROPHY LAXIS [...] 2.5 - 3.5 Specimen comments: [facility] W/AUTO [id number] 06:06:00 Test Item Value Reference Range Interpretation [...] 3uL 0.00-0.01 N NRBC#) - CHEST 2 [id number] 10:48:00 [facility] : 1955 Sex: M FAX: Jocelyn Modi MD [phone] [place]: St: ADM FAX: Mary Valente MD [phone] ------- Name: EDDI JONES [facility] : 1955 Age/S: 66/M [address] [facility] Unit #: [id number] Loc: E.[address] [place], [place]: [place] [address] Acct: [id number] Dis Date: Status: ADM IN PHONE #: [phone] Exam Date: 10/16/2021 1028 FAX #: [phone] Reason: SURGERY THORACOTOMY TOMORROW EXAMS: CPT CODE: [id number] XR CHEST 2 V 74722 Site ID: [id number] INDICATION: Preoperative for thoracotomy [...] MD Technologist: KEELY ADAME Trnscrd Date/Time/By: 10/16/2021 (1048) : By: [email or web address] PAGE 1 Signed Report FAX: Jocelyn Modi MD [phone] [place]: St: ADM FAX: Mary Valente MD [phone] Name: ARELYEDDI Hal [facility] : 1955 Age/S: 66/M [address] [facility] Unit #: [id number] Loc: E.[address] [place], [place]: [place] [address] Acct: [id number] Dis Date: Status: ADM IN PHONE #: [phone] Exam Date: 10/16/2021 1028 FAX #: [phone] Reason: SURGERY THORACOTOMY TOMORROW EXAMS: CPT CODE: [id number] XR CHEST 2 V 31569 (Continued) Orig Print D/T: S: 10/16/2021 (1052) PAGE 2 Signed Report- XR CHEST 1 V 2021-10-16 08:16:00 [facility] Hong : 1955 Sex: M FAX: Baltazar Sunshine MD [phone] [place]: St: [facility] FAX: Mary Valente MD [phone] Name: EDDI JONES [facility] : 1955 Age/S: 66/M [address] [facility] [employer] Unit #: [id number] Loc: E.[address] [place], [place]: [place] [address] Acct: [id number] Dis Date: Status: ADM IN PHONE #: [phone] Exam Date: 10/16/2021612 FAX #: [phone] Reason: sob EXAMS: CPT CODE: [id number] XR CHEST 1V 84288 EXAM: Portable chest x-ray Dictation location: COMPARISON: Chest x-ray on 10/15/2021 INDICATION: sob DISCUSSION: The right subclavian central venous catheter is unchanged in position. A moderate size loculated right pleural effusion is again noted, with a right-sided smallbore pigtail chesttube in place. Superimposed atelectasis or pneumonia at [...] Baltazar Henson MD; Mary Kidd MD Technologist: [employer] Trnscrd Date/Time/By: 10/16/2021 (0816) : By: [email or web address] PAGE 1 Signed Report FAX:Baltazar Sunshine MD [phone] [place]: St: ADM FAX: Mary Valente MD [phone] Name: EDDI JONES [facility] : 1955 Age/S: 66/M [address] [place] [facility] Unit #: [id number] Loc: [address] [place], [place]: [place] [address] Acct: [id number] Dis Date: Status: ADM IN PHONE #: [phone] Exam Date: 10/16/2021612 FAX #: [phone] Reason: sob EXAMS: CPT CODE: [id number] XR CHEST 1 F48192 (Continued) Orig Print D/T: S: 10/16/2021 (0819) PAGE 2 Signed [id number] 07:34:00 Test Item Value Reference Range Interpretation Comments GLUBED (test code = GLUBED) 83 mg/dL 70-110 N COMPREHENSIVE METABOLIC [id number] 07:18:00 Test Item Value Reference Range Interpretation [...] 124 Units/L 50.0-136.0 N code = ALKP) [id number] 07:18:00 Test Item Value Reference Range Interpretation Comments MAGNESIUM (test code = MAG) 1.8 mg/dl 1.8-2.4 N [id number] 07:16:00 Test Item Value Reference Range Interpretation Comments AMMONIA (test code = AMM) 11.0 MCMOL/L 11.0-32.0 N CBC W/AUTO [id number] 07:03:00 Test Item Value Reference Range Interpretation [...] X10 3uL 0.00-0.01 N NRBC#) BASIC METABOLIC [id number] 08:15:00 Test Item Value Reference Range Interpretation [...] CA) 7.3 mg/dl 8.0-10.5 L CBC W/AUTO [id number] 07:32:00 Test Item Value Reference Range Interpretation [...] 0.00-0.01 N NRBC#) - XR CHEST 1 [id number] 02:08:00 [facility] : 1955 Sex: M FAX: Baltazar Sunshine MD [phone] [place]: St: [facility] FAX: Mary Valente MD [phone] Name: EDDI JONES [facility] : 1955 Age/S: 66/M [address] [facility] Unit #: [id number] Loc: [address] [place], [place]: [place] [address] Acct: [id number] Dis Date: Status: ADM IN PHONE #: [phone] Exam Date: 10/15/2021124 FAX #: [phone] Reason: sob EXAMS: CPT CODE: [id number] XR CHEST 1V 99016 HISTORY: Shortness of breath Location: C3 COMPARISON:10/14/2021 [...] MD; Mary Kidd MD Technologist: MOLLY ARMSTRONG [facility] Date/Time/By: 10/15/2021 (020) : By: [email or web address] PAGE 1 Signed Report FAX: Baltazar Sunshine MD [phone] [place]: St: ADM FAX: Mary Valente MD [phone] Name: EDDI JONES [facility] : 1955 Age/S: 66/M [address] [facility] Unit #: [id number] Loc: [address] Phys: [place] [address] Acct: [id number] Dis Date: Status: ADM IN PHONE #: [phone] Exam Date: 10/15/2021 0125 FAX #: [phone] Reason: sob EXAMS: CPT CODE: [id number] XR CHEST 1 V 41758 (Continued) Orig Print D/T: S: 10/15/2021 (210) PAGE 2 Signed Report- XR CHEST 1 [id number] 15:12:00 [facility] : 1955 Sex: M FAX: Poncho aBldwin MD [phone] [place]: St: ADM FAX: Mary Valente MD [phone] --------- Name: EDDI JONES [facility] : 1955 Age/S: 66/M [address] [facility] Unit #: [id number] Loc: [address] [place]: [place] [address] Acct: [id number] Dis Date: Status: ADM IN PHONE #: [phone] Exam Date: 10/14/2021 1358 FAX #: [phone] Reason: CENTRAL LINE PLACEMENT EXAMS: CPT CODE: [id number] XR CHEST 1 V 26434 C3 TIME OF STUDY: 10/14/2021 1:48 PM [...] Poncho Huynh MD; Mary Kidd MD Technologist: BRINDA Victoria Date/Time/By: 10/14/2021 (1511) : By: [email or web address] PAGE 1 Signed Report FAX: Poncho Baldwin MD [phone] [place]: St: ADM FAX: Mary Valente MD [phone] Name: EDDI JONES [facility] :1955 Age/S: 66/M [address] [facility] Unit #: [id number] Loc: [address] [place] [address] [place]: [place] [id number] Acct: [id number] Dis Date: Status: ADM IN PHONE #: [phone] ExamDate: 10/14/2021 1358 FAX #: [phone] Reason: CENTRAL LINE PLACEMENT EXAMS: CPT CODE: [id number] CHEST 1 V 59326 (Continued) Orig Print D/T: S: 10/14/2021 (987) PAGE 2 Signed Report- XR CHEST 1 [id number] 08:05:00 [facility] : 1955 Sex: M FAX: Baltazar Sunshine MD [phone] [place]: St: [facility] FAX: Mary Valente MD [phone] Name: EDDI JONES [facility] : 1955 Age/S: 66/M [address] [facility] Unit #: [id number] Loc: [address] [place] [address] Phys: [place] [id number] Acct: [id number] Dis Date: Status: ADM IN PHONE #: [phone] Exam Date: 10/14/2021 0743 FAX #: [phone] Reason: sob EXAMS: CPT CODE: [id number] XR CHEST 1 V 14946 EXAM: - XR CHEST 1 V LOCATION: C3 HISTORY: sob COMPARISON: prior day FINDINGS: Single view of the chest. No indwelling lines/tubes. No pneumothorax. Unchanged small right pleural effusion and in frahilar linear opacities. The mediastinal contours are unchanged. IMPRESSION: Unchanged exam. at 0805 Reported and signed by: James Ellsworth M.D. CC: Baltazar Henson MD; Mary Kidd MD Technologist: DOROTHY SANON Trnscrd Date/Time/By: 10/14/2021 (08) : By: OpalHV2 PAGE 1 Signed Report FAX: Baltazar Sunshine MD [phone] [place]: St: [facility] FAX: Mary Valente MD [phone] Name: EDDI JONES [facility] [place] : 1955 Age/S: 66/M [address] [facility] Unit #: [id number] Loc: [address] [place], [place]: [place] [address] Acct: [id number] Dis Date: Status: ADM IN PHONE #: [phone] Exam Date: 10/14/2021 0743 FAX #: [phone] Reason: sob EXAMS: CPT CODE: [id number] XR CHEST 1 V 32720 (Continued) Orig Print D/T: S: 10/14/2021 (0808) PAGE 2 Signed ReportCBC W/AUTO [id number] 05:38:00 Test Item Value Reference Range Interpretation [...] (test code = DECREASED PLTEST) BASIC METABOLIC [id number] 02:23:00 Test Item Value Reference Range Interpretation [...] CA) 7.9 mg/dl 8.0-10.5 L BASIC METABOLIC [id number] 18:34:00 Test Item Value Reference Range Interpretation [...] = CA) 8.1 mg/dl 8.0-10.5 N PROTHROMBIN [id number] 18:21:00 Test Item Value Reference Range Interpretation Comments PROTHROMBIN TIME 17.2 SECONDS 9.9-12.8 H PATIENT (test code = PTP) INTERNATIONAL NORMAL 1.4 0.89-1.14 H THE INR IS TO BE USED RATIO (test code = ONLY FOR MONITORING INR) ORAL ANTICOAGULANTTH ERAPY. THE FOLLOWING A RE SUGGESTED RANGE S FROM [facility] LEGE OF CHEST PHYSICIANS:JEANETTE CATION INR [...] D ANTIBODIES 2.5 - 3.5 THROMBOPLASTIN TIME [id number] 18:21:00 Test Item Value Reference Range Interpretation Comments THROMBOPLASTIN TIME 31.20 SECONDS 25.86-36.07 N [facility] PARTIAL (test code = Therape utic Range - PTT) APTT of 55.8-85 .4 secondscorrelat es with plasma heparin concentration o f 0.2-0.4 u/mL Ne w range - CBC W/O [id number] 18:15:00 Test Item Value Reference Range Interpretation [...] 9.2 fl 7.4-10.4 N MPV) COMPREHENSIVE METABOLIC [id number] 07:28:00 Test Item Value Reference Range Interpretation [...] 50.0-136.0 H code = ALKP) CBC W/AUTO [id number] 07:14:00 Test Item Value Reference Range Interpretation [...] 3uL 0.00-0.01 N NRBC#) - CHEST 1 [id number] 06:40:00 [facility] : 1955 Sex: M FAX: Baltazar Sunshine MD [phone] [place]: St: [facility] FAX: Mary Valente MD [phone] Name: EDDI JONES [facility] : 1955 Age/S: 66/M [address] [facility] Unit #: [id number] Loc: [address] Phys: [place] [address] Acct: [id number] Dis Date: Status: ADM IN PHONE #: [phone] Exam Date: 10/13/2021 0639 FAX #: [phone] Reason: sob EXAMS: CPT CODE: [id number] XR CHEST 1 V 74528 EXAM: - XR CHEST 1 V Location code:C3 HISTORY: sob COMPARISON: 10/12/2021 FINDINGS: SingleAP view of the chest is provided. Pigtail thoracostomy tube on the right is unchanged.Pleural-parenchymal opacity about the mid to lower right lung zone is similar. The left lung is clear. There is no pneumothorax. IMPRESSION: 1. No significant interval change. at 0640 Reported and signed by: Ubaldo Cho M.D.CC: Baltazar Henson MD; Mary Kidd MD Technologist: KEELY ADAME Trnscrd Date/Time/By: 10/13/2021 (0640) : By: [email or web address] PAGE 1 Signed Report FAX: Baltazar Sunshine MD [phone] [place]: EM St: ADM FAX: Mary Valente MD [phone] Name: EDDI JONES [facility] : 1955 Age/S: 66/M [address] [facility] Unit #: [id number] Loc: [address] [place] [address] Phys: [place] [address] Acct: [id number] Dis Date: Status: ADM IN PHONE #: [phone] Exam Date: 10/13/2021638 FAX #: [phone] Reason: sob EXAMS: CPT CODE: [id number] XR CHEST 1 V 47133 (Continued) Orig Print D/T: S: 10/13/2021 (0643) PAGE 2 Signed ReportCBC W/AUTO [id number] 15:10:00 Test Item Value Reference Range Interpretation [...] = DECREASED PLTEST) HARDSTICK PATIENT. NOTIFIED NURSE: EMMA.LAB.JODY 10/12/21 0945.BASIC METABOLIC [id number] 14:59:00 Test Item Value Reference Range Interpretation [...] ALDA 10/12/21 0945.PT H/S.- CT CHEST W/O [id number] 10:43:00 [facility] : 1955 Sex: M FAX: Baltazar Sunshine MD [phone] [place]: St: ADM FAX: Mary Valente MD [phone] Name: EDDI JONES [facility] : 1955 Age/S: 66/M [address] [facility] Unit: [id number] Loc: [address] Phys: [place] [address] Acct: [id number] Dis Date: Status: ADM IN PHONE #: [phone] Exam Date: 10/12/2021 0955 FAX #: [phone] Reason: empyema EXAMS: CPT CODE: [id number] CT CHEST W/O CONTRAST 77442 EXAM: - CT CHEST W/O CONTRAST LOCATION: [...] Report ( CONTINUED) FAX: Baltazar Sunshine MD [phone] [place]: St: [facility] FAX: Mary Valente MD [phone] Name: EDDI JONES [facility] : 1955 Age/S: 66/M [address] [facility] Unit: [id number] Loc: [address] [place], [place]: [place] [address] Acct: [id number] Dis Date: Status: ADM IN PHONE #: [phone] Exam Date: 10/12/2021 0955 FAX #: [phone] Reason: empyema EXAMS: CPT CODE: [id number] CT CHEST W/O CONTRAST 48697 (Continued) BONES: Mild spinal degenerative changes noted. [...] disease and sequelae of portal hypertension. at 104 3 Reported and signed by: Taran Ly M.D. CC: Baltazar Henson MD; Mary Kidd MD Technologist:MOLLY KING; ABHIJEET PURVIS Trnscrd Dt/Tm: 10/12/2021 (1043) t.NEELIMAR.JW22 Orig Print D/T: S: 10/12/2021 (1046 PAGE 2 Signed Report- XR CHEST 1 [id number] 06:45:00 [facility] : 1955 Sex: M FAX: Y Baltazar Henson MD [phone] [place]: St: [facility] FAX: Mary Valente MD [phone] Name: EDDI JONES [facility] : 1955 Age/S: 66/M [address] [facility] Unit #: [id number] Loc: [place], [place]: [place] [address] Acct: [id number] Dis Date: Status: ADM IN PHONE #: [phone] Exam Date: 10/12/2021 0643 FAX #: [phone] Reason: sob EXAMS: CPT CODE: [id number] XR CHEST 1 V 30968 EXAM: - XR CHEST 1 V Location code:C3 HISTORY: sob COMPARISON: 10/11/2021 FINDINGS: Single AP view of the chest is provided. Right- sided thoracostomy tube is unchanged. Pleural-parenchymal opacity at the right lung base is similar. The left lung is clear. There is no pneumothorax. Pression: 1. No significant interval change. at 06 Reported and signed by: Ubaldo Cho M.D. CC: Baltazar Henson MD; Mary Kidd MD Technologist: ANALIA MILLER Trnscrd Date/Time/By: 10/12/2021 (0645) : By: [email or web address] PAGE 1 Signed Report FAX: Baltazar Sunshine MD [phone] [place]: St: [facility] FAX: Mary Valente MD [phone] Name:EDDI JONES [facility] : 1955 Age/S: 66/M [address] [employer] Unit #: [id number] Loc: [place], [place]: [place] [address] Acct: [id number] Dis Date: Status: ADM IN PHONE #: [phone] Exam Date: 10/12/2021642 FAX #: [phone] Reason: sob EXAMS: CPT CODE: [id number] XR CHEST 1 V 94262 (Continued) Orig Print D/T: S: 10/12/2021 (0648) PAGE 2 Signed [id number] 18:51:00 Test Item Value Reference Range Interpretation Comments TROPONIN-I (test 0.02 NG/ML 0.00-0.06 N REFERENCE R TATUM TROPONIN code = TROPI) I HEALTHY JEANETTE VIDUALS: <0.06 ng/mL R/O ISCHEMIA: 0.07 - 0.60 ng/mL CUT-OFF R TATUM FOR AMI: 0.60 - 1.5 ng/mL - XR CHEST 1 [id number] 18:25:00 [facility] : 1955 Sex: M FAX: Melinda Singleton MD [place]: St: ADM FAX: Mary Valente MD [phone] Name: EDDI JONES [facility] :1955 Age/S: 66/M [address] [facility] [employer] [employer] Unit #: [id number] Loc: [place], [place]: [place] [address] Acct: [id number] Dis Date: Status: ADM IN PHONE #: [phone] ExamDate: 10/11/20211809 FAX #: [phone] Reason: R/O DISLOCATION OF CHEST TUBE EXAMS: CPT CODE: [id number] XR CHEST 1 V 59309 C3 TIME OF STUDY: 10/11/2021 5:50 PM REASON FOR EXAM: R/O DISLOCATION OF CHEST TUBE COMPARISON: Chest radiograph from the same date at 11:00 AM. FINDINGS: AP view of the chestwas obtained. Support devices: A small bore right chest tube is seen over the right hemithorax, andlikely in the pleural space. Lungs: There is [...] MD; Mary Kidd MD Technologist: LARA CAGLE [facility] Date/Time/By: 10/11/2021 (1824) : By: Dusty.SI1 PAGE 1 Signed Report FAX: Melinda Singleton MD [place]: St: ADM FAX: Mary Valente MD [phone] Name: EDDI JONES [facility] : 1955 Age/S:66/M [address] Unit #: [id number] Loc: [place], [place]: [place] [address] Acct: [id number] Dis Date: Status: ADM IN PHONE #: [phone] Exam Date: 10/11/20211809 FAX #: [phone] Reason: R/O DISLOCATION OF CHEST TUBE EXAMS: CPT CODE: [id number] XR CHEST 1 V 57533 (Continued) Orig Print D/T: S: 10/11/2021 (1829) PAGE 2 Signed ReportFLUID [id number] 16:38:00 Test Item Value Reference Range Interpretation Comments FLUID PROTEIN 3.6 g/dL The reference range and other (test code = method PROTFL) performancespec ifications have not been establ ished for this body fluidtest. The test result must be integra britta into the clinicalcontext for interpretation. Specimen comments: Verónica Spence 1Specimen comments: Lavender TopFLUID [id number] 16:38:00 Test Item Value Reference Range Interpretation Comments FLUID LDH 1736 IU/L The reference r tatum and other (test code = method performa ncespecifications LDHFL) have not been e stablished for this body fluid test. The test result must be integrated into the clinicalcon text for interpretation. Result is in International U nits/Liter Specimen comments: [facility] 1Specimen comments: Lavender TopPLEURAL FLD CELL CT/[id number] 16:38:00 Test Item Value Reference Range Interpretation [...] 100 code = TOTCELLFL) Specimen comments: Verónica Spence 1Specimen comments: Lavender TopPLERUAL FLD GLUCOSE 2021-10-11 16:38:00 Test Item Value Reference Range Interpretation Comments PLERUAL FLD 43 MG/DL 65-110 L The reference r tatum and other GLUCOSE (test method code = GLUPL) performancespe cifications have not been establ ished for this body fluidtest. The test result must be integra britta into the clinicalcontext for interpretation. Specimen comments: [facility] 1Specimen comments: Gwendolyn SpenceTROPONIN-I 2021-10-11 15:38:00 Test Item Value Reference Range Interpretation Comments TROPONIN-I (test 0.02 NG/ML 0.00-0.06 N REFERENCE R TATUM TROPONIN code = TROPI) I HEALTHY JEANETTE VIDUALS: <0.06 ng/mL R/O ISCHEMIA: 0.07 - 0.60 ng/mL CUT-OFF R TATUM FOR AMI: 0.60 - 1.5 ng/mL URINALYSIS [id number] 15:28:00 Test Item Value Reference Range Interpretation [...] Description: CLEAN CATCHUA RFLX MICR CULT IF [id number] 15:28:00 Test Item Value Reference Range Interpretation Comments UA CULTURE NEEDED? NO, WBC<10 Culture Chk Criteria not met, (test code = Criteria Urine Culture UACULT) cancelled. Indication for culture: RiskForSepsis-no oth srcSpecimen Description: CLEAN CATCHLACTIC ACID [id number] 14:33:00 Test Item Value Reference Range Interpretation Comments LACTIC ACID REPEAT (test code = 1.9 mmol/L 0.4-2.0 N LACTR) - CT ABD PELVIS [id number] 14:00:00 [facility] : 1955 Sex: M FAX: Melinda Singleton MD [place]: EM St: REG Name: EDDI JONES Hal [facility] : 1955 Age/S: 66/M [address] Unit: [id number] Loc: [place], [place]: [place] [address] Acct: [id number] Dis Date: Status: REG ER PHONE #: [phone] Exam Date: 10/11/2021 1348 FAX #: [phone] Reason: hernia EXAMS: CPT CODE: [id number] CT ABD PELVIS W/CONT 91057 EXAM: - CT ABD PELVIS W/CONT LOCATION: [...] The appendix is normal. Vascular: Splenorenal varices noted.Atherosclerotic calcifications are present. PAGE 1 Signed Report (CONTINUED) FAX: Melinda Singleton MD [place]: St: REG -- Name: EDDI JONES [facility] : 1955 Age/S: 66/M [address] Unit:[id number] Loc: E.ERS [place], [place]: [place] [address] Acct: [id number] Dis Date: Status: REG ER PHONE #: [phone] Exam Date: 10/11/2021 1348 FAX #: [phone] Reason: hernia EXAM S: CPT CODE: [id number] CT ABD PELVIS W/CONT 97119 (Continued) Lymphatics: No enlarged lymph nodes by [...] (1400) t.NEELIMAR.HV2 Orig Print D/T: S: 10/11/2021 (0694 PAGE 2 Signed ReportCOVID 19 Asymptomatic IH AG 2021-10-11 13:35:00 Test Item Value Reference Range Interpretation Comments COVID 19 NEGATIVE NEGATIVE Negative result s should be Asymptomatic IH AG treated a s presumptive and (test code = ifinconsistent with COVNONPUIAG) clinical signs and symptoms, or ne cessaryfor patient managem ent, should be tested with an alternativemole cular assay. Negative results do not preclude LOTC-XwI-8dbjvk tion and should not be u sed as the sole basis forp atient management deci sions. Negative result s should beconsidered in the context of a pa tient's recent exposure s,history, presence of cli nical signs and symptoms consistentwith COVID-19. BASIC METABOLIC [id number] 12:37:00 Test Item Value Reference Range Interpretation [...] 8.8 mg/dl 8.0-10.5 N HEPATIC FUNCTION PANEL [id number] 12:37:00 Test Item Value Reference Range Interpretation [...] 215 Units/L 50.0-136.0 H code = ALKP) [id number] 12:37:00 Test Item Value Reference Range Interpretation Comments LIPASE (test code = LIP) 352 Units/L 65.0-230.0 H B-TYPE NATRIURETIC [id number] 12:37:00 Test Item Value Reference Range Interpretation Comments B-TYPE NATRIURETIC PEPTIDE (test 5.3 PG/ML 5-100 N code = BNP) CARDIAC ENZYMES [id number] 12:37:00 Test Item Value Reference Range Interpretation Comments CREATINE KINASE (CK) 66 Units/L 35-232 N (test code = CK) TROPONIN-I (test code 0.02 NG/ML 0.00-0.06 N REFERE NCE RANGE = TROPI) TROPONIN I HEAL THY INDIVIDUALS: <0 .06 ng/mL R/O ISCHE ONEIDA: 0.07 - 0.60 ng/ mL CUT-OFF RANGE F OR AMI: 0.60 - 1.5 ng/m L LACTIC [id number] 12:13:00 Test Item Value Reference Range Interpretation Comments LACTIC ACID (test code = LACT) 2.7 MMOL/L 0.4-2.0 H [id number] 12:06:00 Test Item Value Reference Range Interpretation Comments AMMONIA (test code = AMM) 4.3 MCMOL/L 11.0-32.0 L PROTHROMBIN [id number] 12:05:00 Test Item Value Reference Range Interpretation Comments PROTHROMBIN TIME 17.8 SECONDS 9.9-12.8 H PATIENT (test code = PTP) INTERNATIONAL NORMAL 1.5 0.89-1.14 H THE INR IS TO BE USED RATIO (test code = ONLY FOR MONITORING INR) ORAL ANTICOAGULANTTH ERAPY. THE FOLLOWING A RE SUGGESTED RANGE S FROM [facility] LEGE OF CHEST PHYSICIANS:JEANETTE CATION INR [...] - 3.0 VALVULAR HEART DISEASE 2.0 - 3.0 ATRIAL FIBRILAT ION 2.0 - 3.0BILEAFLET MECHANICAL VALV E IN AORTIC POSITION 2.0 - 3.0MECHANICAL PROSTHETIC VALV ES (HIGH RISK) 2.5 - 3.5PRESENCE OF LUPUS ANTICOAGULANT O R ANTIPHOSPHOLIPI D ANTIBODIES 2.5 - 3.5 THROMBOPLASTIN TIME [id number] 12:05:00 Test Item Value Reference Range Interpretation Comments THROMBOPLASTIN TIME 31.40 SECONDS 25.86-36.07 N [place] [facility] Lab PARTIAL (test code = Therape utic Range - PTT) APTT of 55.8-85 .4 secondscorrelat es with plasma heparin concentration o f 0.2-0.4 u/mL Ne w range effective - CBC W/AUTO [id number] 11:59:00 Test Item Value Reference Range Interpretation [...] 0.00-0.01 N NRBC#) - XR CHEST 1 [id number] 11:53:00 [facility] : 1955 Sex: M FAX: Melinda Singleton MD [place]: St: REG Name: JONESEDDI [facility] : 1955 Age/S: 66/M [address] [facility] [place] [employer] Unit #: [id number] Loc: E.[place], [place]: [place] [address] Acct: [id number] Dis Date: Status: REG ER PHONE #: [phone] Exam Date: 10/11/2021 1141 FAX #: [phone] Reason: Code SEPSIS EXAMS: CPT CODE: [id number] XR CHEST 1 V 20381 EXAM: - XR CHEST 1 V LOCATION:C3 [...] MD Technologist: DOROTHY SANON Trnscrd Date/Time/By: 10/11/2021 (3820) : By: OpalHV2 PAGE 1 Signed Report FAX: Melinda Singleton MD [place]: St: REG --------- Name: EDDI JONES [facility] : 1955 Age/S: 66/M [address] [facility] Unit #: [id number] Loc: [place], [place]: [place] [address] Acct: [id number] Dis Date: Status: REG ER PHONE #: [phone] Exam Date: 10/11/2021 1141 FAX #: [phone] Reason:Code SEPSIS EXAMS: CPT CODE: [id number] XR CHEST 1 V 87864 (Continued) Orig Print D/T: S: 10/11/2021(0206) PAGE 2 Signed ReportBLOOD CULTURE [id number] 12:31:49 Test Item Value Reference Range Interpretation Comments Blood Culture Coagulase negative Organism identified Workup (test Staphylococcus by DNA code = 600-7) probeAdditiona l work-up perform ed only per reques t. Culture plate(s ) will be saved until this date: - 3/24/22 Gram stain Isolated from Gram positive cocci (test code = anaerobic bottle in Anaerobi c bottle 664-3) Gram positive cocci [facility] Hospital[facility] [id number] 12:31:44 Test Item Value Reference Range Interpretation Comments Blood Culture-Aerobic No organisms No growth Previo us (test code = 47940-7) isolated prelim inary verified result was Culture In Progress on 10/06/2021 at 15 19 CDT Blood Culture positive. No growth AA Gram posit kashif Culture-Anaerobic See Blood Culture cocci in (test code = 23300-3) Workup for Anaero bic bottle additional Previous information. preliminary verified result was Culture In Progress on 10/05/2021 at 16 01 CDT Lab Interpretation Abnormal (test code = 83246-0) [facility] HospitalN-TERMINAL [id number] 12:26:48 Test Item Value Reference Range Interpretation Comments NT-proBNP (test code 1080 pg/mL See_Comment H [Autom ated = 6793894382) message] The system which generated this result transmitted reference range : <=125. The reference range was not used to interpret this result as normal/abnormal . ALLYN (test code = ALLYN) Biotin has been reported to cause a negative bias, interpret results relative to patient's use of biotin. Lab Interpretation Abnormal (test code = 73691-3) [facility] HospitalMAGNESIUM2022-03-19 12:19:25 Test Item Value Reference Range Interpretation Comments MAGNESIUM (test code = 8075721175) 2.7 mg/dL 1.7-2.4 H Lab Interpretation (test code = Abnormal 26497-5) [facility] HospitalCOMP. METABOLIC PANEL ([id number])2021-10-08 12:19:05 Test Item Value Reference Range Interpretation Comments NA (test code = 135 mmol/L 135-145 1385613754) K (test code = 4.5 mmol/L 3.5-5.0 9394938566) CL (test code = 103 mmol/L 98-108 4260720901) CO2 TOTAL (test code = 26 mmol/L 23-31 6295544107) AGAP (test code = 2-16 7159052776) BUN (test code = 51 mg/dL 7-23 H 4090301829) GLUCOSE (test code = 150 mg/dL 70-110 H 5223362123) CREATININE (test code = 0.74 mg/dL 0.60-1.25 2776808346) TOTAL BILI (test code = 1.9 mg/dL 0.1-1.1 H 2399597946) CALCIUM (test code = 8.1 mg/dL 8.6-10.6 L 7001146789) T PROTEIN (test code = 6.7 g/dL 6.3-8.2 6863501069) ALBUMIN (test code = 3.0 g/dL 3.5-5.0 L 8323447744) ALK PHOS (test code = 100 U/L 34-122 8653635653) ALTv (test code = 73 U/L 5-50 H 1742-6) AST(SGOT) (test code = 184 U/L 13-40 H 5989427917) eGFR (test code = mL/min/1.73m2 1834318293) ALLYN (test code = ALLYN) Association of [...] tests). Lab Interpretation Abnormal (test code = 68226-7) [facility] WITHOUT [id number] 10:55:51 Test Item Value Reference Range Interpretation Comments WBC (test code = See_Comment [Automated message] 6690-2) The system [employer] generated this result transmitted ref erence range: 4.20 - 1 0.70 10*3/?L. The reference range was not used to int erpret this result as normal/abnormal . RBC (test code = 789-8) See_Comment L [Au tomated message] The system [employer] generated this result transmitted ref erence range: [...] See_Comment LL [Au tomated message] The system [employer] generated this result transmitted ref erence range: 150 - 32 8 10*3/?L. The reference range was not used to int erpret this result as normal/abnormal . MPV (test code = 11.5 fL 9.8-13.0 12321-9) RDW-CV (test code = 14.9 % 12.1-15.4 788-0) RDW-SD (test code = 52.4 fL 38.5-51.6 H 54588-5) NRBC x10^3 (test code = <0.01 See_Comment [Au tomated message] 2080768856) The system [employer] generated this result transmitted ref erence range: 10*3/?L. The reference range was not used to int erpret this result as normal/abnormal . NRBC/100 WBC (test code See_Comment [Au tomated message] = 0640332116) The system Eng[employer] generated this result transmitted ref erence range: 0.0 - 10 .0 /100 WBCs. The reference range was not used to int erpret this result as normal/abnormal . IPF % (test code = 5.0 % 1.2-10.7 Platelet count 5837042103) measured by fluorescence me thod. Lab Interpretation Abnormal (test code = 08862-4) [facility] HospitalMYCOPLASMA PNEUMONIAE ANTIBODY, [id number] 23:05:23 Test Item Value Reference Range Interpretation [...] than 12 months post-infection. Perform ed By: [address] [address]Fmkpxckino Director: Makayla Salazar MD [Aut omated message] The sy stem which generated this result transmit britta reference range : <=0.76. The ref erence range was not u sed to interpret this result as normal/abnor mal. Lab Interpretation Abnormal (test code = 21360-7) [facility] HospitalMAGNESIUM2022-03-18 11:18:21 Test Item Value Reference Range Interpretation Comments MAGNESIUM (test code = 8064113126) 3.2 mg/dL 1.7-2.4 H Lab Interpretation (test code = Abnormal 74109-7) [facility] HospitalCOM. METABOLIC PANEL ([id number])2021-10-07 11:18:00 Test Item Value Reference Range Interpretation Comments NA (test code = 137 mmol/L 135-145 6777541697) K (test code = 3.4 mmol/L 3.5-5.0 L 1569782085) CL (test code = 108 mmol/L 98-108 3524533466) CO2 TOTAL (test code = 20 mmol/L 23-31 L 5156322945) AGAP (test code = 2-16 4807663656) BUN (test code = 58 mg/dL 7-23 H 0236162650) GLUCOSE (test code = 145 mg/dL 70-110 H 0664389279) CREATININE (test code = 0.86 mg/dL 0.60-1.25 6416806911) TOTAL BILI (test code = 1.7 mg/dL 0.1-1.1 H 0225955320) CALCIUM (test code = 7.7 mg/dL 8.6-10.6 L 0394822974) T PROTEIN (test code = 6.1 g/dL 6.3-8.2 L 9421176410) ALBUMIN (test code = 2.8 g/dL 3.5-5.0 L 2131671093) ALK PHOS (test code = 74 U/L 34-122 3509759012) ALTv (test code = 57 U/L 5-50 H 1742-6) AST(SGOT) (test code = 163 U/L 13-40 H 4310489461) eGFR (test code = mL/min/1.73m2 0433355856) ALLYN (test code = ALLYN) Association of [...] tests). Lab Interpretation Abnormal (test code = 66075-7) [facility] WITH [id number] 11:13:03 Test Item Value Reference Range Interpretation Comments WBC (test code = See_Comment L [Automated 7890-2) message] The system which generated this result transmitted reference range : 4.20 - 10.70 10*3/?L. The reference range was not used to interpret this result as normal/abnormal . RBC (test code = See_Comment L [Automated 339-8) message] The system which generated this result [...] (test code = 53.1 fL 38.5-51.6 H 35661-1) RDW-CV (test code = 15.0 % 12.1-15.4 788-0) PLT (test code = See_Comment LL [Automated 777-3) message] The system which generated this result transmitted reference range : 150 - 328 10*3/?L. The reference range was not used to interpret this result as normal/abnormal . MPV (test code = 9.9 fL 9.8-13.0 56838-1) NRBC/100 WBC (test See_Comment [Automat ed code = 6382033180) message] The system which generated this result transmitted reference range : 0.0 - 10.0 /100 WBCs. The reference range was not used to interpret this result as normal/abnormal . NRBC x10^3 (test code <0.01 See_Comment [Auto mated = 8244159915) message] The system which generated this result transmitted reference range : 10*3/?L. The reference range was not used to interpret this result as normal/abnormal . GRAN MAT (NEUT) % 79.5 % (test code = 770-8) IMM GRAN % (test code 6.00 % = 6635497264) LYMPH % (test code = 5.4 % 736-9) MONO % (test code = 8.0 % 5905-5) EOS % (test code = 0.0 % 713-8) BASO % (test code = 1.1 % 706-2) GRAN MAT x10^3(ANC) 2.78 10*3/uL 1.99-6.95 (test code = 2496664892) IMM GRAN x10^3 (test 0.21 10*3/uL 0.00-0.06 H code = 0096953706) LYMPH x10^3 (test 0.19 10*3/uL 1.09-3.23 L code = 731-0) MONO x10^3 (test code 0.28 10*3/uL 0.36-1.02 L = 742-7) EOS x10^3 (test code <0.03 0.06-0.53 L = 711-2) BASO x10^3 (test code 0.04 10*3/uL 0.01-0.09 = 704-7) BANDS (test code = MARKED INCREASED A 0921936969) DOHLE BODIES (test Present A code = 7792-5) TOXIC CHANGES (test Present A code = 803-7) PLT ESTIMATE (test Critically Normal AA code = 9317-9) Decreased Lab Interpretation Abnormal (test code = 99344-1) [facility] BLO[facility] PATHOGENS DNA DPYMS-MAZYNVNOC4155-22-17 22:53:38 Test Item Value Reference Range Interpretation Comments Coagulase Negative Positive Negative, See A Staphylococcus (test Comment/Narrative code = 57905-1) ALLYN (test code = ALLYN) Coagulase negative [...] contact the Antimicrobial Stewardship Program with questions.Pager: ?[phone] Testing included eleven identification and three resistance marker targets. Lab Interpretation Abnormal (test code = 21018-1) [facility] HospitalTransthoracic echo (TTE)2021-10-06 22:06:00 Test Item Value Reference Range Interpretation Comments LVIDD (test code = 4.30 cm 2172327182) IVS (test code = 1.05 cm 4225209140) Interventricular Septum 1.05 cm Diastolic Thickness by 2D (test code = 6337903) LVPWD (test code = 0.96 cm 0853990538) PW (test code = 0.96 cm 0.6-1.2 8901441314) EF(Teich) (test code = 65.60 % 0302527251) LVIDS (test code = 2.80 cm 8930876823) FS (test code = 36 % 5028673677) EF - 2D (test code = 65.60 % 75192420) LVOT diameter (test code 2.06 cm = 0520867792) ACS (test code = 1.44 cm 7123534485) Ao root annulus (test 2.44 cm code = 0211118012) Ao root diam (test code = 2.44 cm 0398664291) Aortic root (test code = 2.44 cm 3986522353) LA size (test code = 4.7 cm 1558013568) E wave decelartion time 0.25 s (test code = 9235296525) MV Peak E Manjula (test code 107.4 cm/s = 3362507677) MV Peak A Manjula (test code 100.5 cm/s = 4332480262) E/A ratio (test code = ratio 9169373588) MV Prop V (test code = 83.40 cm/s 4001540356) TR Peak Manjula (test code = 244.4 cm/s 4596741741) Triscuspid Valve mmHg Regurgitation Peak Gradient (test code = 0961641732) LVOT stroke volume (test 66.20 cm3 code = 2283091257) LVOT peak manjula (test code 85.8 cm/s = 4736572992) LVOT mn grad (test code = mmHg 2198893729) AV LVOT peak gradient mmHg (test code = 9722602519) LVOT peak VTI (test code 19.9 cm = 0349869564) LV V1 mean (test code = 55.80 cm/s 8519301920) Aortic valve mean 174.5 cm/s velocity (test code = 6460263325) Ao peak manjula (test code = 283.1 cm/s 8896849324) Ao VTI (test code = 58.8 cm 7276210134) AV area by cont VTI (test 1.1 cm2 code = 4155861430) AV area peak manjula (test 1.0 cm2 code = 1111812342) Ao max PG (test code = 32.10 mm[Hg] 9579610473) AV peak gradient (test mmHg code = 2237169795) AV valve area (test code 1.13 cm2 = 7087557729) AV mean gradient (test mmHg code = 2865155044) MR max PG (test code = 42.50 mm[Hg] 0205588705) MR max manjula (test code = 326.10 cm/s 7370254669) Mr max manjula (test code = 326.1 m/s 6405244346) Radiology Study observation (narrative) (test code = 55658-2) ALLYN (test code = ALLYN) ?Left?Ventricle: Left [...] (64 kg) 1.72 sq meters 96/64 88 [facility] HospitalCORTISOL [id number] 20:38:54 Test Item Value Reference Range Interpretation Comments SMILEY AM (test code = 43.5 ug/dL 4.5-23.0 H 1501987123) ALLYN (test code = ALLYN) Biotin has been reported to cause a positive bias, interpret results relative to patient's use of biotin. Lab Interpretation (test Abnormal code = 10960-8) [facility] HospitalHEPATITIS C VIRUS (HCV) BY QUANTITATIVE NAAT 2021-10-06 17:22:35 Test Item Value Reference Range Interpretation Comments HCV Quantitative Not Detected Not Detected Interpretation (test code = 7325728780) ALLYN (test code = ALLYN) The Aptima HCV Quant Dx assay is an FDA-approved real-time mathematical scientist-mediated amplification (TMA) test used for both detection [...] indicated. Lab Interpretation Normal (test code = 61737-4) [facility] HospitalTHYROID STIMULATING YUGIEUA1450-18-22 15:03:33 Test Item Value Reference Range Interpretation Comments TSH (test code = See_Comment [Automated message] 8653108260) The system [employer] generated this result transmitted ref erence range: 0.45 - 4 .70 mIU/L. The refe rence range was not u sed to interpret this result as normal/abnor mal. Lab Interpretation (test Normal code = 48445-2) [facility] HospitalMAGNESIUM2022-03-17 09:12:39 Test Item Value Reference Range Interpretation Comments MAGNESIUM (test code = 8615377759) 3.1 mg/dL 1.7-2.4 H Lab Interpretation (test code = Abnormal 25385-0) [facility] HospitalCOMP. METABOLIC PANEL (03753)2021-10-06 09:12:19 Test Item Value Reference Range Interpretation Comments NA (test code = 134 mmol/L 135-145 L 0668393565) K (test code = 3.4 mmol/L 3.5-5.0 L 5219308699) CL (test code = 103 mmol/L 98-108 2307768800) CO2 TOTAL (test code = 20 mmol/L 23-31 L 5531473110) AGAP (test code = 2-16 4915607200) BUN (test code = 69 mg/dL 7-23 H 0028196067) GLUCOSE (test code = 107 mg/dL 70-110 1874183665) CREATININE (test code = 1.48 mg/dL 0.60-1.25 H 7919632025) TOTAL BILI (test code = 2.3 mg/dL 0.1-1.1 H 2605609308) CALCIUM (test code = 7.5 mg/dL 8.6-10.6 L 8615465237) T PROTEIN (test code = 6.2 g/dL 6.3-8.2 L 0796116579) ALBUMIN (test code = 2.9 g/dL 3.5-5.0 L 3774426549) ALK PHOS (test code = 53 U/L 34-122 7803747855) ALTv (test code = 47 U/L 5-50 1742-6) AST(SGOT) (test code = 208 U/L 13-40 H 4285424871) eGFR (test code = mL/min/1.73m2 5009765388) ALLYN (test code = ALLYN) Association of [...] tests). Lab Interpretation Abnormal (test code = 99670-0) [facility] HospitalAMMONIA, [id number] 09:11:49 Test Item Value Reference Range Interpretation Comments AMMONIA (test code = 2034306070) <9 9-33 L Lab Interpretation (test code = Abnormal 97620-0) [facility] HospitalHCV FJELIKQG3063-47-95 05:14:31 Test Item Value Reference Range Interpretation Comments HCV Ab (test code = Positive 15824-6) HCV Semi-Quantitative (test code = 77105-2) APRI (test code = 6821685331) ALLYN (test code = Positive for HCV antibody ALLYN) with a high signal to cutoff ratio (s/c). ?Supplementary test for Hepatitis C Virus RNA Real-Time PCR is recommended if clinically indicated. ?If any questions, please contact Clinical Chemistry Director senior occupational therapist at [phone].APRI score < 0.5: Suggestive of little to no fibrosisAPRI score > 1.5: Suggestive of moderate to severe fibrosisAPRI score > 2.0: Highly suggestive of cirrhosis. [facility] HospitalHEPATITIS B SURFACE [id number] 04:32:39 Test Item Value Reference Range Interpretation Comments HBsAB (test code = Negative 7445897506) HBsAb mIU/mL Semi-Quantitative (test code = 3206446995) ALLYN (test code = Interpretation: ALLYN) ?Hepatitis B Surface Antibody ? Negative - Patient is considered to be not immune to infection with HBV. ? ? Positive - Anti-HBs detected at greater than or equal to 12 mIU/mL. ?Patient is considered to be immune to infection with HBV. ? [facility] HospitalHBC ANTIBODY (IGM & IGG)2021-10-06 04:32:39 Test Item Value Reference Range Interpretation Comments HBC (test code = 3586230708) Negative HBC Semi-Quantitative (test code = 9239957010) [facility] HospitalPROCALCITONIN2022-03-17 04:13:48 Test Item Value Reference Range Interpretation Comments Procalcitonin (test 19.95 ng/mL <0.07 H code = 3021820783) ALLYN (test code = ALLYN) INTERPRETATION OF [...] lung abscess/empyema. For further information please refer to:[email or web address] Lab Interpretation Abnormal (test code = 38845-9) [facility] [id number] 02:05:57 Test Item Value Reference Interpretation Comments Range TROPONIN I (test 0.011 ng/mL See_Comment [Automated code = 1119765241) message] The system which generated this result [...] biotin. Lab Interpretation Normal (test code = 81804-0) [facility] [id number] 15:30:20 Test Item Value Reference Interpretation Comments Range TROPONIN I (test 0.024 ng/mL See_Comment [Automated code = 3059888292) message] The system which generated this result [...] biotin. Lab Interpretation Normal (test code = 70042-9) [facility] WITH [id number] 15:30:04 Test Item Value Reference Range Interpretation Comments WBC (test code = See_Comment H [Automated 1978-2) message] The system which generated this result transmit britta reference range : 4.20 - 10.70 10*3/?L. The reference range was not used to interpret this result as normal/abnormal . RBC (test code = See_Comment [Automated 699-8) message] The system which generated this result [...] RDW-SD (test code = 50.5 fL 38.5-51.6 10032-7) RDW-CV (test code = 14.7 % 12.1-15.4 788-0) PLT (test code = See_Comment L [Automated 067-3) message] The system which generated this result transmit britta reference range : 150 - 328 10*3/ ?L. The reference range was not u sed to interpret th is result as normal/abnormal . MPV (test code = 10.3 fL 9.8-13.0 71512-5) IPF % (test code = 3.7 % 1.2-10.7 Platelet count 4383757266) measured by fluorescence method. NRBC/100 WBC (test See_Comment [Automat ed code = 2264019575) message] The system which generated this result transmit britta reference range : 0.0 - 10.0 /100 WBCs. The reference range was not used to interpret this result as normal/abnormal . NRBC x10^3 (test code <0.01 See_Comment [Auto mated = 0249350420) message] The system which generated this result transmit britta reference range : 10*3/?L. The reference range was not used to interpret this result as normal/abnormal . GRAN MAT (NEUT) % 91.1 % (test code = 770-8) IMM GRAN % (test code 2.70 % = 9916676269) LYMPH % (test code = 1.7 % 736-9) MONO % (test code = 4.4 % 5905-5) EOS % (test code = 0.1 % 713-8) BASO % (test code = 0.0 % 706-2) GRAN MAT x10^3(ANC) 10.59 10*3/uL 1.99-6.95 H (test code = 7791496441) IMM GRAN x10^3 (test 0.31 10*3/uL 0.00-0.06 H code = 1168932620) LYMPH x10^3 (test 0.20 10*3/uL 1.09-3.23 L code = 731-0) MONO x10^3 (test code 0.51 10*3/uL 0.36-1.02 = 742-7) EOS x10^3 (test code <0.03 0.06-0.53 L = 711-2) BASO x10^3 (test code <0.03 0.01-0.09 = 704-7) BANDS (test code = MARKED INCREASED A 1035917597) DOHLE BODIES (test Present A code = [...] . Lab Interpretation Abnormal (test code = 14257-0) [facility] HospitalN-TERMINAL VXO-[id number] 15:26:58 Test Item Value Reference Range Interpretation Comments NT-proBNP (test code 3760 pg/mL See_Comment H [Autom ated = 4995434861) message] The system which generated this result transmitted reference range : <=125. The reference range was not used to interpret this result as normal/abnormal . ALLYN (test code = ALLYN) Biotin has been reported to cause a negative bias, interpret results relative to patient's use of biotin. Lab Interpretation Abnormal (test code = 22640-6) [facility] HospitalD-BMUQO5462-28-79 15:20:50 Test Item Value Reference Interpretation Comments Range D-DIMER (test code = See_Comment H [Autom ated 7239002790) message] The system which generated this result [...] diagnosis. Lab Interpretation Abnormal (test code = 66351-4) [facility]. METABOLIC PANEL (60597)2021-10-05 15:18:35 Test Item Value Reference Range Interpretation Comments NA (test code = 129 mmol/L 135-145 L 5755827891) K (test code = 3.8 mmol/L 3.5-5.0 9362451088) CL (test code = 96 mmol/L 98-108 L 1966988245) CO2 TOTAL (test code = 18 mmol/L 23-31 L 6140414025) AGAP (test code = 2-16 8414050207) BUN (test code = 70 mg/dL 7-23 H 4150980096) GLUCOSE (test code = 108 mg/dL 70-110 3108180909) CREATININE (test code = 1.86 mg/dL 0.60-1.25 H 1429640950) TOTAL BILI (test code = 3.8 mg/dL 0.1-1.1 H 4015213214) CALCIUM (test code = 8.1 mg/dL 8.6-10.6 L 3955052254) T PROTEIN (test code = 7.2 g/dL 6.3-8.2 3897512442) ALBUMIN (test code = 3.5 g/dL 3.5-5.0 5102949884) ALK PHOS (test code = 77 U/L 34-122 1167055886) ALTv (test code = 35 U/L 5-50 1742-6) AST(SGOT) (test code = 141 U/L 13-40 H 5317950494) eGFR (test code = mL/min/1.73m2 6809234461) ALLYN (test code = ALLYN) Association of [...] tests). Lab Interpretation Abnormal (test code = 59009-4) [facility] HospitalAMMONIA, [id number] 15:11:16 Test Item Value Reference Range Interpretation Comments AMMONIA (test code = 7036720714) 15 umol/L 9-33 Lab Interpretation (test code = Normal 57384-8) [facility] HospitalPROTHROMBIN TIME / [id number] 15:06:55 Test Item Value Reference Range Interpretation Comments PROTIME PATIENT (test See_Comment H [Auto mated message] code = 5964-2) The system [employer] generated this result transmitted ref erence range: 12.0 - 1 4.7 Seconds. The reference range was not used to int erpret this result as normal/abnormal . INR (test code = 6301-6) Nor mal INR <1.1; Warfarin Therap eutic range 2.0 to 3. 0 or 2.5 to 3.5, dep ending upon the indica tions. Lab Interpretation (test Abnormal code = 59312-1) [facility] HospitalUrinalysis2021-09-20 14:07:00 Test Item Value Reference Range [...] LPF 0-3 A UAHYAL) Urine Source: Urine BtbzvaTyiwpafehf0033-08-72 12:17:00 Test Item Value Reference Range Interpretation [...] PCOMMENT) Hematology (test code = MC) Normal Uxoahsxyw6464-30-46 11:58:00 Test Item Value Reference Range Interpretation [...] = AST) caution; hemoly sis detected at [facility] that may cause inter ference with the assay. Chemistry (test code 23 U/L 8-55 N = ALT) Body Fluid Kflxhtg5005-77-63 22:25:00 Test Item Value Reference Range Interpretation Comments Body Fluid Culture (test NO GROWTH IN 5 DAYS code = FLUIDC) Body Fluid Culture (test GS code = FLUIDC1) Body Fluid Culture (test NOS code = FLUIDC1) Reference Lab Omwoyiq4739-07-85 11:39:00 Test Item Value Reference Range Interpretation [...] context for interpretation. Performed at: [facility] [address] [place], [place] [address]Fex Di naila: Willy Rousseau MD, Phone : [phone] Hematology - Jvielx1208-60-15 08:21:00 Test Item Value Reference Range Interpretation [...] clinicalcontext for interpretation. Source: ASCITES FLUIDHematology - Qikhxk6767-55-91 08:21:00 Test Item Value Reference Range Interpretation Comments Hematology - Fluids 11 % (test code = CCDIFFBFNE) Hematology - Fluids 27 % (test code = CCDIFFLY) Hematology - Fluids 62 % Non-Bran tic cells (test code = CCDIFFNON) cons ist of macrophages, endothelial,his tiocytic and mesothelial cells. Source: [facility] FLUIDHematology - Oqsmsy2260-24-81 08:21:00 Test Item Value Reference Range Interpretation Comments Hematology - Fluids Other ce lls are (test code = PATHF) macropha ges and mesothelial georgia ls. Nomalignant [place] ls are identified.LUIS CHILDS M.D. T Code: 89675 (Booth-s tained cytospin) Source: [facility]ITES MBIGLEdrbnxmbu2031-23-03 05:37:00 Test Item Value Reference Range Interpretation [...] code 8.0 mg/dL 7.8-10.44 N = CA) Ngdbrjlekt3320-47-33 05:29:00 Test Item Value Reference Range Interpretation [...] 7.3 fL 7.4-10.4 L Chemistry - Body Ryonlg8629-95-47 19:14:00 Test Item Value Reference Interpretation Comments Range Chemistry - Less than Not Available Fluid Source: []The reference Body Fluids 1.0 g/dL range and other method (test code = performancespec ifications have FLUTP) not been establ ished for this bodyfluid. The test result must be integra britta into the clinicalcontext for interpretation. FLUID SOURCE: ascitesChemistry - Body Ogsxvq7567-31-61 19:11:00 Test Item Value Reference Range Interpretation Comments Chemistry - Body 19 U/L Not Available The refere nce range and other Fluids (test method code = FLUAMY) performancesp ecifications have not been establ ished for this bodyfluid. The test result must be integrated i nto the clinicalcontext for interpretation. FLUID SOURCE: ascitesChemistry - Ejfxcftn0475-35-73 15:14:00 Test Item Value Reference Range Interpretation Comments Chemistry - Specials (test code = 5.80 ng/mL 7.0-31.4 L FOLATE) Comment please add onChemistry - Enaoofed2512-82-88 15:08:00 Test Item Value Reference Range Interpretation Comments Chemistry - Specials (test code = 1369 pg/mL 211-911 H VITB12) Comment please add onChemistry - Pogozolq5392-95-64 15:08:00 Test Item Value Reference Range Interpretation Comments Chemistry - Specials (test code 2.3160 uIU/mL 0.35-4.94 N = TSH3) Comment please add jtRajkkskuz3830-75-29 06:02:00 Test Item Value Reference Range Interpretation [...] code 54 U/L 8-55 N = ALT) Sheqvygqdh6973-37-04 05:49:00 Test Item Value Reference Range Interpretation [...] BASO#) 0.0 thou/uL 0.0-0.2 N Molecular Testing [id number] 00:59:00 Test Item Value Reference Range Interpretation Comments Molecular Testing Not Detected NotDetected Performanc e of the MM (test code = Cepheid SARS -CoV-2 has CJXSJ73TUBMY) only beenestab lished in nasopharyngeal swab specimens. [...] -SymptomaticSource: Nasopharyngeal SwabSymptomatic as defined by CDC: YnijvluUahsulhyw9050-29-30 19:31:00 Test Item Value Reference Range Interpretation Comments Chemistry (test 0.015 ng/mL < 0.028 code = TROPI-T) Reference Ra nge 0.00 - 0.028 ng /mL Negative 0.029 - 0.29 ng/mL Indetermi jackie Greater or Equa l to 0.3 ng/mL Strongly suggests [facility] Tweubujvz3680-36-73 19:02:00 Test Item Value Reference Range Interpretation Comments Chemistry (test 0.013 ng/mL < 0.028 code = TROPI-T) Reference Ra nge 0.00 - 0.028 ng /mL Negative 0.029 - 0.29 ng/mL Indetermi jackie Greater or Equa l to 0.3 ng/mL Strongly suggests [facility] Toyyxvfxv9647-67-94 16:51:00 Test Item Value Reference Range Interpretation Comments Chemistry (test code = PHOS-T) 3.2 mg/dL 2.3-4.7 N Twsbjikgn8523-28-16 16:51:00 Test Item Value Reference Range Interpretation Comments Chemistry (test code = MG) 1.6 mg/dL 1.6-2.6 N Lwhvpmayjzf4710-00-72 16:07:00 Test Item Value Reference Range Interpretation Comments Coagulation (test 17.2 sec 12.0-14.7 H code = PT-T) Coagulation (test 1.4 ATTE NTION: READ code = INR) CAREFULLY-- The recommended the rapeutic ranges for oral anticoagulanttr eatments are: ------ Low Inte nsity: 1.5 - 2.0 Moderate In tensity: 2.0 - 3.0 High Inten sity (1): 2.5 - 3.5 High Inte nsity (2): 3.0 - 4.0 CRITICAL: > 4.0 Coagulation (test 33.9 sec 22.9-36.1 N code = PTT) Anticoagulant? PCPWHcnxjnnul0337-51-66 12:31:00 Test Item Value Reference Range Interpretation Comments Chemistry (test 0.028 ng/mL < 0.028 code = TROPI-R) Reference Ra nge 0.00 - 0.028 ng /mL Negative 0.029 - 0.29 ng/mL Indetermi jackie Greater or Equa l to 0.3 ng/mL Strongly suggests [facility] Rehgofypoe4561-76-06 12:31:00 Test Item Value Reference Range Interpretation [...] code = PCOMMENT) Chemistry - BNP, HgbA1c, LNIx1713-03-11 12:31:00 Test Item Value Reference Range Interpretation Comments Chemistry - BNP, HgbA1c, PTHi 63.5 pg/mL 0-100 N (test code = BNP) Aashltlnp9108-74-41 12:27:00 Test Item Value Reference Range Interpretation [...] 58 U/L 8-55 H = ALT) Culture, Qtpyi4982-51-76 15:07:00 Test Item Value Reference Range Interpretation Comments Culture, Blood (test code = BC) NG5 [address]19 SURGICAL PATHOLOGY, LEVEL YK1688-18-43 11:59:[address] [address] Laboratory Printed: 06/16/20 1159 [facility] DAEMPathology Page: 1 Patient: EDDI JONES Birthdate: 1955 Age/Sex: 65/M Spec#: [id number]: Kwame Zimmerman MD Specimen Date: 06/15/20 Received Date: 06/15/20 Specimen: POLYP, RECTUM CLINICAL DIAGNOSIS abdominal pain PATHOLOGIC DIAGNOSIS Large intestine, rectum, "polyp," endoscopic polypectomy: - Cauterized hyperplastic polyp. Comment: This polyp has architectural characteristics of a hyperplastic polyp, but due tocautery artifact, the possibility of low grade adenomatous change cannot be completelyexcluded. Pathologist:Bal Michelle MD Entered by:06/16/20 - 1140 LAB.YGP PROCEDURES: 46195 GROSS DESCRIPTION A. POLYP, RECTUM The specimenis received in 10% formalin, and is labeled with the patient's name and "rectalpolyp." The specimen consists of a portion of pink-gordon soft tissue measuring 0.2 cm. Thespecimen is entirely submitted in one cassette. Dictated by: LUIS MIGUEL VELA Entered by: 06/15/20 - 8266 LAB.YGP Patient: EDDI JONESRe06/11/20Loc: 2NO MR#: [id number] CONTINUED ON NEXT PAGE Dis: 06/15/20ta:DIS IN [facility] [address] [facility] [address] [address] Laboratory Printed: 06/16/20 [facility] DAEMPathology Page: 2 Patient: EDDI JONES [id number] (Continued) GROSS DESCRIPTION (Continued) MICROSCOPIC DESCRIPTION A microscopic examination was performedto arrive at the diagnostic conclusion reported. Signed (Electronically Signed) MD Deisy 06/16/20 Patient: EDDI JONES Re06/11/20Loc: 2NO MR#: [id number] END OF REPORT Dis: 06/15/20ta: DIS [id number] SURGICAL PATHOLOGY, LEVEL [id number] 09:05:[address] [address] Laboratory Printed: 06/15/20 09 [facility] DAEMPathology Page: 1 Patient: EDDI JONES Birthdate: 1955 Age/Sex: 65/M Spec#: [id number]: Kwame Zimmerman MD Specimen Date: 06/13/20 Received Date: 06/14/20 Specimen: GASTRIC BIOPSY PATHOLOGIC DIAGNOSIS Stomach, NOS, endoscopicbiopsy: - Mild reactive gastropathic changes in a background of mild chronic gastritis. - No Helicoba cter pylori organisms identified. Comment: No Helicobacter pylori organisms are identified on Diff-Quik special stainperformed with adequate control. Pathologist:Champ Cochran MD Entered by:06/15/20 - 0842 LAB.YGP PROCEDURES: 21168, 45857 GROSS DESCRIPTION A. GASTRIC BIOPSY The specimen is received in 10% formalin, and is labeled with the patient's name and"gastric biopsy." The specimen consists of two pink-gordon soft tissue fragments measuring 0.4cm in aggregate. The specimen is entirely submitted in one carolyn sette. Dictated by: Kourtney Lozada Entered by: 06/14/20 - 1540 LAB.YGP Patient: EDDI JONES Re06/11/20Loc: 2NO MR#: [id number] CONTINUED ON NEXT PAGE Dis: Sta: ADM IN ---- -------- [address] [address] Laboratory Printed: 06/15/[address] [place] [address] DAEMPathology Page: 2 Patient: EDDI JONES [id number] (Alexis jessica) MICROSCOPIC DESCRIPTION A microscopic examination was performed to arrive at the diagnostic conclusion reported. Signed (Electronically Signed) Champ Cochran MD 06/15/20 Patient: EDDI JONES Re06/11/20Loc: JoanO MR#: [id number] END OF REPORT Dis: Sta: ADM INChemistry - Ydvueqyv7303-38-29 05:38:00 Test Item Value Reference Range Interpretation Comments Chemistry - Specials (test code = 5.20 ng/mL 7.0-31.4 L FOLATE) Chemistry - Xrctsfte6556-76-26 05:34:00 Test Item Value Reference Range Interpretation Comments Chemistry - Specials Greater than 2000 211-911 H (test code = VITB12) pg/mL Ybtpyzmut7552-60-10 05:17:00 Test Item Value Reference Range Interpretation [...] code 8.3 mg/dL 7.8-10.44 N = [place]) [id number] 04:50:00 Test Item Value Reference Range Interpretation [...] code = BASO#) 0.0 thou/uL 0.0-0.2 N [id number] 04:40:00 Test Item Value Reference Range Interpretation [...] code 8.4 mg/dL 7.8-10.44 N = [place]) [id number] 04:31:00 Test Item Value Reference Range Interpretation [...] code = BASO#) 0.0 thou/uL 0.0-0.2 N [id number] 22:52:00 Test Item Value Reference Range Interpretation [...] UAHYAL) Urine Source: Urine Clean [facility] [id number] 22:51:00 Test Item Value Reference Range Interpretation Comments Reference Lab Not Detected NotDetected Negative (Not Detected) Testing (test results do not preclude code = [id number]) infectionwi th SARS-CoV-2 virus, and shou ld [...] high complexity tests. Reason for Testing: Admission [id number] 11:25:00 Test Item Value Reference Range Interpretation Comments Chemistry (test 0.010 ng/mL < 0.028 code = TROPI-T) Reference Ra nge 0.00 - 0.028 ng /mL Negative 0.029 - 0.29 ng/mL Indetermi jackie Greater or Equa l to 0.3 ng/mL Strongly suggests [facility] [id number] 09:27:00 Test Item Value Reference Range Interpretation Comments Accuchek (test code = ACU) 112 mg/dL 70-100 H [id number] 05:39:00 Test Item Value Reference Range Interpretation [...] (test code = Appears Decreased A PCOMMENT) [id number] 05:12:00 Test Item Value Reference Range Interpretation [...] code 30 U/L 8-55 N = ALT) [id number] 20:33:00 Test Item Value Reference Range Interpretation [...] 3.0 - 4.0 CRITICAL: > 4.0 Anticoagulant? [id number] 16:15:00 Test Item Value Reference Range Interpretation Comments Chemistry (test 0.010 ng/mL < 0.028 code = TROPI-R) Reference Ra nge 0.00 - 0.028 ng /mL Negative 0.029 - 0.29 ng/mL Indetermi jackie Greater or Equa l to 0.3 ng/mL Strongly suggests [facility] [id number] 15:16:00 Test Item Value Reference Range Interpretation [...] code 36 U/L 8-55 N = ALT) [id number] 15:16:00 Test Item Value Reference Range Interpretation Comments Chemistry (test code = DBILI) 2.8 mg/dL 0.1-0.3 H [id number] 15:16:00 Test Item Value Reference Range Interpretation Comments Chemistry (test code = LIP) 32 U/L 8-78 N [id number] 14:37:00 Test Item Value Reference Range Interpretation [...] test does the doctor want? C-REACTIVE PROTEIN (CRP)[id number] 14:37:00 Test Item Value Reference Range Interpretation Comments Chemistry (test code = CRP) 0.60 mg/dL = or < 0.5 H What test does the doctor want? C-REACTIVE PROTEIN (CRP)[id number] 14:18:00 Test Item Value Reference Range Interpretation [...] A PCOMMENT) CT [facility]dom[facility] Pel[facility] W [facility] 1955 [facility] Pt Name: EDDI JONES [address] Phys: [place] [address] : 1955 Age: 65 SEX:M [phone] Exam Date: 04/11/21 Status: REG ERAcct: [id number] Loc: ERS Pt Unit #: [id number] Report #: [id number] CC: ED TEMP PROVIDER Michelle Fierro DO CAT SCAN REPORT Order # Category/Exam [id number] CT/CT Abdomen Pelvis W Con ([id number]): . Results CT ABDOMEN AND PELVIS WITH [...] splenic varices. 3. Nonspecific fluid-filled dilated loops ofsmall bowel in the left abdomen which is probably attributable to peristalsis. Reported By: Darvin Jj MD Electronically Signed Date/Time: 04/11/21 1422 Technologist: ZINA Dictated Date/Time: 04/11/21 1408 Transcribed Date/Time:XR Chest 1 View Portable [facility] BRYANName: EDDI JONES : 1955 [facility] Pt Name: EDDI JONES [address] Phys: [place] [address] : 1955 Age: 65 SEX:M [phone] Exam Date: 10/07/20 Status: ADM IN Acct: [id number] Loc: 2SW Pt Unit #: [id number] Report #: [id number] CC: Hyacinth Gamez MD, MALIK MD IMAGING SERVICES REPORT Order # Category/Exam [id number] RAD/XR Chest 1 View Portable ([id number]): . Results Chest one view HISTORY: Pleural [...] Date/Time: 10/07/20931 Transcribed Date/Time:US Paracentesis with Imaging [facility] : 1955 [facility] Pt Name: EDDI JONES [address] Phys: [place] [address] : 1955 Age: 65 SEX:M [phone] Exam Date: 10/06/20atus: ADM IN Acct: [id number] Loc: 2SW Pt Unit #: [id number] Report #: [id number] CC: SHERRELL CORONADO MD ULTRASOUND REPORT Order # Category/Exam [id number] ULT/US Paracentesis with Imaging ([id number]): . Results Ultrasound-guided paracentesis: HISTORY: Cirrhosis and symptomatic ascites. FINDINGS: Informed consent obtained prior to the procedure. Preprocedural imaging demonstrated intraperitoneal free fluid. An area was marked in the Right lower quadrant , and then meticulously prepped and draped in normalsterile fashion and anesthetized with 1% buffered lidocaine. With direct sonographic guidance, a 19-gauge needle and 5 [employer] catheter were advanced into the abdomen. After [...] Date/Time:CTA Angio Chest W WO Con [facility] BRYCarlsbadme: EDDI JONES : 1955 [facility] Pt Name: EDDI JONES [address] Phys: Michelle [place]ier[place], [place] [address] : 1955 Age: 65 SEX:M [phone] Exam Date: 10/05/20 Status: REG ER Acct: [id number] Loc: ERS Pt Unit #: [id number] Report #: [id number] CC: Danny Fierro CAT SCAN REPORT Order # Category/Exam [id number] CT/CTA Angio Chest W ROGELIO Coyle ([id number]): . Results CT ANGIOGRAM THORAX WITH IV [...] effusion is present with consolidation right lung likelyattributable topassive atelectasis. Pneumonia would be difficult to [...] MD Electronically Signed Date/Time: 10/05/20 1609 Technologist: CHARLOTTE Dictated Date/Time: 10/05/20 1559 Transcribed Date/Time:XR Chest [address] [facility] BRYANName: EDDI GUTIERREZ : 1955 [facility] Pt Name: EDDI GUTIERREZ [address] Phys: [place] [address] : 1955 Age: 65 SEX:M [phone] Exam Date: 10/05/20 Status: REG ERAcct: [id number] Loc: ERS Pt Unit #: [id number] Report #: [id number] CC: Michelle Fierro DO IMAGING SERVICES REPORT Order # Category/Exam [id number] RAD/XR Chest 1 View Portable ([id number]): . Results XRChest 1 View Portable HISTORY: Dyspnea and chest pain COMPARISON: None FINDINGS: There is a moderate-sized right pleural effusion with adjacent infiltrate/atelectatic change. The left lung is unremarkable. The heart size is normal. No pneumothoraces are seen. IMPRESSION: Moderate-sized right pleural ef fusion. Reported By: Timothy Salazar MD Electronically Signed Date/Time: 10/05/20 1150 Technologist: MARCIAL DictatedDate/Time: 10/05/20 1149 Transcribed Date/Time:CT Abdomen Pelvis W [facility] JAZMY[facility]: EDDI JONES : 1955 [facility] Pt Name: EDDI JONES [address] Phys: Frederick Romero [place] [address] : 1955 Age: 65 SEX:M [phone] Exam Date: 06/11/20 Status: REG ER Acct: [id number] Loc: ERS Pt Unit #: [id number] Report #: [id number] CC: Frederick Capone MD CAT SCAN REPORT Order # Category/Exam [id number] CT/CT Abdomen Pelvis W Con ([id number]): . Results CT abdomen and pelvis with [...] Alma Tipton MD Electronically Signed Date/Time: 06/11/20 Technologist: GUZMAN Dictated Date/Time: 06/11/201610 Transcribed Date/Time:
[2022-12-01] MEDS ORDERED: TETANUS & DIPHTHERIA TOX,ADULT 0.5 ML VIAL ONE (07:44)
[2022-12-01] MEDS ORDERED: LEVALBUTEROL 1.25 MG/3 ML NEB ONE (07:44)
--- NOTE | 2022-12-01 07:58 | RAD REPORT ---
EXAM DESCRIPTION: CT - CTHCSPWOC - 12/01/2022 7:48 am CLINICAL HISTORY: Trauma, head and neck injury. fall from standing;Pain COMPARISON: Neck Angio dated 05/23/2022 TECHNIQUE: Axial 5 mm thick images of the head were obtained. Axial 2 mm thick images of the cervical spine were obtained with sagittal and coronal reconstruction images generated and reviewed. All CT scans are performed using dose optimization technique as appropriate and may include automated exposure control or mA/KV adjustment according to patient size. FINDINGS: CT HEAD WITHOUT CONTRAST: No acute hemorrhage, hydrocephalus or extra-axial collection is identified.No areas of brain edema or midline shift. Mild chronic small vessel ischemic changes. The paranasal sinuses and mastoids are clear.The calvarium is intact. CT CERVICAL SPINE WITHOUT CONTRAST: No fracture or subluxation.No prevertebral soft tissues swelling is identified. Sclerotic focus in th e medial right clavicle. This is likely bone island and of no clinical significance. Multilevel cervi lino spondylosis that is advanced at the C5-6 and C6-7 and to a lesser extent C7-T1. There is severe d isc height loss at these levels. Trace anterolisthesis of C3 on C4 and C4 on C5 is likely related to underlying degenerative changes. Also noted is severe neural foraminal narrowing on the left at C3-4. IMPRESSION: No acute intracranial or cervical spine findings.
--- NOTE | 2022-12-01 10:06 | EDPHYS ---
Physician Documentation [facility] Name: Martin Jones Age: 67 yrs Sex: Male : 1955 Arrival Date: 12/01/2022 Time: 07:24 Bed 4 Private MD: ED Physician Branden Contreras HPI: 12/01 10:11 This 67 yrs old Male presents to ER via EMS with complaints of Fall Injury. kdr 10:11 Patient states he tripped and fell into the shower this morning prior to arrival. He kdr does not believe he had a loss of consciousness. He has multiple abrasions and skin tears to his upper extremities. Patient looks moderately disheveled. Patient has no other focal complaints at this time. Patient is otherwise nontoxic-appearing on initial presentation.. Onset: The symptoms/episode began/occurred just prior to arrival. Severity of symptoms: At their worst the symptoms were mild in the emergency department the symptoms are unchanged. The patient has not experienced similar symptoms in the past. The patient has not recently seen a physician. Historical: - Allergies: 07:26 No Known Allergies; bp - Home Meds: 09:29 amiloride-hydrochlorothiazide 5-50 mg oral tablet 1 tab daily [Active]; lactulose 10 ko1 gram/15 mL oral solution 30 mL 3 times per day [Active]; Ventolin HFA 90 mcg/actuation Nebulizer HFAA [Active]; hydroxychloroquine 200 mg oral tablet 1 tabs 2 times per day [Active]; prednisone 5 mg oral tablet 1 tabs daily [Active]; quetiapine 25 mg oral tablet 1 tabs once at bedtime [Active]; Xifaxan 550 mg oral tablet 2 times per day [Active]; amoxicillin-pot clavulanate 875-125 mg Oral tablet 1 tab 2 times per day [Active]; - PMHx: 07:26 Pancreatitis; HEP C; cirrhosis of liver; Alcoholism; bp - PSHx: 07:26 lung; bp - Immunization history:: Adult Immunizations unknown. - Social history:: Smoking status: Patient reports the use of cigarette tobacco products, unknown amount. ROS: 10:11 Constitutional: Negative for fever, chills, and weight loss, Eyes: Negative for injury, kdr pain, redness, and discharge, ENT: Negative for injury, pain, and discharge, Neck: Negative for injury, pain, and swelling, Cardiovascular: Negative for chest pain, palpitations, and edema, Respiratory: Negative for shortness of breath, cough, wheezing, and pleuritic chest pain, Abdomen/GI: Negative for abdominal pain, nausea, vomiting, diarrhea, and constipation, Back: Negative for injury and pain, : Negative for injury, bleeding, discharge, and swelling, MS/Extremity: Negative for injury and deformity, Psych: Negative for depression, anxiety, suicide ideation, homicidal ideation, and hallucinations, Allergy/Immunology: Negative for hives, rash, and allergies, Endocrine: Negative for neck swelling, polydipsia, polyuria, polyphagia, and marked weight changes, Hematologic/Lymphatic: Negative for swollen nodes, abnormal bleeding, and unusual bruising. 10:11 Skin: Positive for abrasion(s), Multiple skin tears bilaterally on the upper extremities. 10:11 Neuro: Positive for Patient is awake and alert and otherwise appropriate. He recalls that the events that occurred prior to arrival. Patient has no focal complaint at this time.. Exam: 10:11 Constitutional: This is a well developed, well nourished patient who is awake, alert, kdr and in no acute distress. 10:11 Head/face: Noted is contusion, that is superficial, of the forehead and left side of the back of head. 10:11 Skin: Appearance: normal except for affected area, injury, abrasion(s), Patient has multiple skin tears and abrasions of multiple sizes on his bilateral upper extremities. Vital Signs: 07:25 BP 133 / 82; Pulse 88; Resp 16; Temp 98; Pulse Ox 94% ; bp 09:22 BP 134 / 78; Pulse 82; Resp 20; Pulse Ox 96% on R/A; ko1 09:54 BP 142 / 82; Pulse 86; Resp 18; Pulse Ox 96% on R/A; ko1 MDM: 10:05 Patient medically screened. kdr 10:11 Data reviewed: vital signs, nurses notes, radiologic studies. ED course: Patient was kdr stable in the ED. His daughter was present. I discussed the CT results with her. Patient is currently taking amoxicillin for an upper respiratory infection. He was instructed to continue with the Keflex after that end of the amoxicillin to account for 7 days coverage from the time of this visit to the ED. 12/01 07:29 Order name: CT Head C Spine; Complete Time: 08:48 kdr 12/01 07:35 Order name: Misc. Order: Clean and dress all wounds; Complete Time: 08:18 kdr Administered Medications: 07:44 Drug: Tetanus-Diphtheria Toxoid IM Adult 0.5 ml {Cor[employer]ate Job Titles: [employer]. Exp: bp 12/24/2023. Lot #: [id number]. } Route: IM; Site: right deltoid; 10:14 Follow up: Response: No adverse reaction ko1 07:56 Drug: Levalbuterol Inhalation 1.25 mg Route: Inhalation; ko1 10:14 Follow up: Response: No adverse reaction; Wheezing diminished ko1 Disposition Summary: 12/01/22 10:05 Discharge Ordered Location: Home kdr Problem: new kdr Symptoms: have improved kdr Condition: Stable kdr Diagnosis - Fall on same level, unspecified - from standing kdr - Multiple abrasions and skin tears to the bilateral upper extremities kdr - Unspecified injury of head, initial encounter kdr Followup: kdr - With: Private Physician - When: 2 - 3 days - Reason: If symptoms return, Further diagnostic work-up, Recheck today's complaints, Continuance of care, Re-evaluation by your physician Discharge Instructions: - Discharge Summary Sheet kdr - Abrasion, Hkwo-ak-Rxda kdr - Head Injury, Adult, Xnda-vc-Eate kdr Forms: - Medication Reconciliation Form kdr - Thank You Letter kdr Prescriptions: - Cephalexin 500 mg Oral Capsule - take 1 capsule by ORAL route every 8 hours for 7 days; 21 capsule; Refills: 0, kdr Product Selection Permitted Signatures: Dispatcher [employer] [facility] Branden Contreras MD MD kdr Rogelio Springer RN RN bp Yaneth Dillon RN RN ko1 Corrections: (The following items were deleted from the chart) 09:39 09:29 Home Meds: gabapentin 100 mg Oral capsule; ko1 ko1 :39 09:29 Home Meds: Lunesta Oral; ko1 ko1 :39 09:29 Home Meds: Spironolactone Oral; ko1 ko1 :39 09:29 Home Meds: tamsulosin Oral; ko1 ko1 :39 09:29 Home Meds: Tramadol Oral; ko1 ko1 :39 09:29 Home Meds: valacyclovir Oral; ko1 ko1
--- NOTE | 2022-12-01 10:06 | ER ---
Nurse's Notes [facility] Name: Martin Jones Age: 67 yrs Sex: Male : 1955 Arrival Date: 12/01/2022 Time: 07:24 Bed 4 Private MD: Diagnosis: Fall on same level, unspecified-from standing;Multiple abrasions and skin tears to the bilateral upper extremities;Unspecified injury of head, initial encounter Presentation: 12/01 07:25 Chief complaint: EMS states: MECHANICAL FALL OVER PET, NO LOC. Coronavirus screen: At bp this time, the client does not indicate any symptoms associated with coronavirus-19. Ebola Screen: No symptoms or risks identified at this time. Initial Sepsis Screen: Does the patient meet any 2 criteria? No. Patient's initial sepsis screen is negative. Does the patient have a suspected source of infection? No. Patient's initial sepsis screen is negative. Risk Assessment: Do you want to hurt yourself or someone else? Patient reports no desire to harm self or others. Onset of symptoms was December 01, 2022 at 07:00. 07:25 Method Of Arrival: EMS: [facility] bp 07:25 Acuity: CHRIS 3 bp Triage Assessment: 07:26 General: Appears in no apparent distress. Behavior is cooperative, appropriate for age, bp anxious. Pain: Complains of pain in right elbow. EENT: No deficits noted. Neuro: Level of Consciousness is awake, alert, obeys commands, Oriented to Appropriate for age. Cardiovascular: No deficits noted. Respiratory: No deficits noted. GI: No signs and/or symptoms were reported involving the gastrointestinal system. : No signs and/or symptoms were reported regarding the genitourinary system. Derm: No deficits noted. Musculoskeletal: No deficits noted. Injury Description: SKIN TEAR. Historical: - Allergies: 07:26 No Known Allergies; bp - Home Meds: 09:29 amiloride-hydrochlorothiazide 5-50 mg oral tablet 1 tab daily [Active]; lactulose 10 ko1 gram/15 mL oral solution 30 mL 3 times per day [Active]; Ventolin HFA 90 mcg/actuation Nebulizer HFAA [Active]; hydroxychloroquine 200 mg oral tablet 1 tabs 2 times per day [Active]; prednisone 5 mg oral tablet 1 tabs daily [Active]; quetiapine 25 mg oral tablet 1 tabs once at bedtime [Active]; Xifaxan 550 mg oral tablet 2 times per day [Active]; amoxicillin-pot clavulanate 875-125 mg Oral tablet 1 tab 2 times per day [Active]; - PMHx: 07:26 Pancreatitis; HEP C; cirrhosis of liver; Alcoholism; bp - PSHx: 07:26 lung; bp - Immunization history:: Adult Immunizations unknown. - Social history:: Smoking status: Patient reports the use of cigarette tobacco products, unknown amount. Screenin:27 [facility] ED Fall Risk Assessment (Adult) History of falling in the last 3 months, bp including since admission Yes- fall prone (multiple falls) (3 pts). Abuse screen: Denies threats or abuse. Denies injuries from another. Nutritional screening: No deficits noted. Tuberculosis screening: No symptoms or risk factors identified. Assessment: 07:27 General: SEE TRIAGE NOTE. bp Vital Signs: 07:25 BP 133 / 82; Pulse 88; Resp 16; Temp 98; Pulse Ox 94% ; bp 09:22 BP 134 / 78; Pulse 82; Resp 20; Pulse Ox 96% on R/A; ko1 09:54 BP 142 / 82; Pulse 86; Resp 18; Pulse Ox 96% on R/A; ko1 ED Course: 07:25 Patient arrived in ED. bp 07:25 Branden Contreras MD is Attending Physician. kdr 07:26 Triage completed. bp 07:26 Arm band placed on. bp 07:27 Patient has correct armband on for positive identification. Bed in low position. Call bp light in reach. Side rails up X2. 07:44 Rogelio Springer, LISA is Primary Nurse. bp 07:46 CT Head C Spine Sent. bp 07:50 CT Head C Spine In Process Unspecified. EDMS 08:49 No provider procedures requiring assistance completed. Patient did not have IV access ko1 during this emergency room visit. Dressings: Kerlix X 2; right arm and right elbow, left upper arm, left elbow, left forearm non-adherent dressing x 4 right arm and right elbow, left forearm, left upper arm and left elbow. Wound care: to skin tears was cleaned with Hibiclens, soaked in normal saline solution, dressed with Neosporin, 4X4s, Kerlix, Patient tolerated well. Administered Medications: 07:44 Drug: Tetanus-Diphtheria Toxoid IM Adult 0.5 ml {Ton Cylinder Inspector: [employer]. Exp: bp 12/24/2023. Lot #: [id number]. } Route: IM; Site: right deltoid; 10:14 Follow up: Response: No adverse reaction ko1 07:56 Drug: Levalbuterol Inhalation 1.25 mg Route: Inhalation; ko1 10:14 Follow up: Response: No adverse reaction; Wheezing diminished ko1 Medication: 09:22 Vaccine Information Statement (VIS) provided today. Questions and/or concerns ko1 addressed. VIS edition date: December 01, 2022. Outcome: 10:05 Discharge ordered by MD. kdr 10:10 Discharged to home ambulatory, with family. ko1 10:10 Condition: improved 10:10 Discharge instructions given to patient, family, Instructed on discharge instructions, follow up and referral plans. medication usage, wound care, Demonstrated understanding of instructions, follow-up care, medications, wound care, Prescriptions given X 1. 10:15 Patient left the ED. ko1 Signatures: Dispatcher [employer] EDMS Branden Contreras MD MD [facility] Rogelio Springer, LISA RN bp Yaneth Dillon RN RN ko1 Corrections: (The following items were deleted from the chart) 09:39 09:29 Home Meds: gabapentin 100 mg Oral capsule; ko1 ko1 :39 09:29 Home Meds: Lunesta Oral; ko1 ko1 :39 09:29 Home Meds: Spironolactone Oral; ko1 ko1 :39 09:29 Home Meds: tamsulosin Oral; ko1 ko1 :39 09:29 Home Meds: Tramadol Oral; ko1 ko1 :39 09:29 Home Meds: valacyclovir Oral; ko1 ko1
[2022-12-01 10:47] VITALS: TEMP 98
[2022-12-01 10:48] VITALS: O2SAT 96
[2022-12-01 10:49] VITALS: BP 142/82
== END 2022-12-01 10:15 | disposition home or self-care (01) ==
LOC: ER 07:24
DX: S40.812A Abrasion of left upper arm, initial encounter (principal); S40.811A Abrasion of right upper arm, initial encounter; S09.90XA Unspecified injury of head, initial encounter; W18.30XA Fall on same level, unspecified, initial encounter; F10.20 Alcohol dependence, uncomplicated; K74.60 Unspecified cirrhosis of liver; Z23 Encounter for immunization; Z72.0 Tobacco use
CPT/HCPCS: 70450; 72125; 90471; 90714; 99285; J7614